=== PATIENT | male | born 1940 | race Caucasian/White ===

== ENCOUNTER 2016-04-17 07:52 | Day surgery (SDC) | payer MEDICARE, BC ==
[~2016-04-17] VITALS: Ht 182.9 cm; Wt 95.8 kg
[2016-04-17] VITALS (10 sets, daily range): BP systolic 103–171; BP diastolic 70–111
[~2016-04-17 07:52] MED LIST: ALLP100T; ALLP100T PO; ASP81CT; ASP81TEC PO; ATOR40TA; ATR20T PO; CALC-697 PO; CALC-80 PO; CEPH500C PO; CYAN10007 PO; DOXA4TAB2; DOXA4TAB2 PO; DXZS4T PO; EZET10TA5; FISH OIL OMEGA1 EACH PO; FLAX340P PO; GREEN COFFEE BEAN PO; HYDR1CAP3; HYDR1TAB66 PO; IBP200T; LISI10TA2 PO; LVT.05T; LVT.05T PO; MELO-195 PO; METO25TA PO; MULT-963 PO; MULT1TAB63; NF-METANX; OMEGA; OMEP20CA12 PO; OMG1KC; POTA99TA7 PO; PRD10T; RASPBERRY KETONES PO; RMP5C; TMSL.4C; TRM50T; VITA1TAB98 PO; [UNRECOGNIZED DRUG - OTHER]
--- OUTSIDE RECORDS SUMMARY | 2016-04-17 07:56 | XMS REPORT | Continuity of Care Document ---
Author Author [facility] Organization [facility] Address Unknown Phone Unavailable Care Team Providers Care Biomedical Equipment Tech Name Role Phone CHASE JOSHI MD PCP Insurance Providers Payer Name Policy Number Subscriber Name Relationship Wps Medicare [id number] Kelvin Escamilla 19 Self / Same As Patient Blue Cross [facility] Supp [id number] Kelvin Escamilla Self / Same As Patient Advance Directives Directive Response Recorded Date/Time Advance Directives No 01/13/14 2:26pm Health Care Power of Medical Research Scientist Yes 11/30/13 10:26am Organ Donor Yes 01/13/14 2:26pm Resuscitation Status Full Code 01/13/14 2:26pm Problems Medical Problems Problem Onset Date Status Acute renal failure Unknown Active Rhabdomyolysis Unknown Active Dehydration Unknown Active Acute renal failure Unknown Active Avulsion of skin of finger Unknown Active Medications Medication Dose Route Sig Days/Qty Instructions Order Date Discontinued Date Status Allopurinol 02/19/08 05/11/12 Discontinued Aspirin 02/19/08 05/11/12 Discontinued Tamsulosin HCl 02/19/08 05/11/12 Discontinued Levothyroxine Sodium 02/19/08 05/11/12 Discontinued Atorvastatin Calcium 02/19/08 12/22/08 Discontinued Ramipril 02/19/08 05/11/12 Discontinued Tramadol HCl 02/19/08 05/11/12 Discontinued Ezetimibe 02/19/08 12/22/08 Discontinued Ibuprofen 02/19/08 12/22/08 Discontinued Vitamin B Complex/Folic Acid 02/19/08 05/11/12 Discontinued Fish Oil 02/19/08 05/11/12 Discontinued Multivitamins 02/19/08 05/11/12 Discontinued Prednisone 02/19/08 12/22/08 Discontinued Acetaminophen/Hydrocodone Bitart 12/22/08 05/11/12 Discontinued Doxazosin Mesylate 12/22/08 05/11/12 Discontinued Meloxicam (Mobic) 15 Mg PO DAILY 05/11/12 Active Atorvastatin Calcium 20 Mg PO BEDTIME 05/11/12 Active Omeprazole 20 Mg PO TWICE A DAY 05/11/12 02/09/13 Discontinued [place]-3/Dha/Epa/Fish Oil 2 Each PO TWICE A DAY 05/11/12 12/22/12 Discontinued Vitamin B Comp W-C 1 Tab PO DAILY 05/11/12 Active Hydrocodone Bit/Acetaminophen 1 Tab PO TWICE A DAY PRN PRN PAIN Active Hydrocodone Bit/Acetaminophen 2 Each PO BEDTIME 05/11/12 12/22/12 Discontinued Aspirin 81 Mg PO BEDTIME 05/11/12 Active Metoprolol Succinate 25 Mg PO DAILY 05/11/12 Active Levothyroxine Sodium (Levothroid) 50 Mcg PO DAILY 05/11/12 Active Doxazosin Mesylate 4 Mg PO BEDTIME 05/11/12 12/22/12 Discontinued Allopurinol 200 Mg PO DAILY 05/11/12 02/09/13 Discontinued Allopurinol 100 Mg PO THREE TIMES A DAY 05/11/12 Active Potassium 99 Mg PO DAILY 05/11/12 Active Calcium Carbonate/Vitamin D3 1 Tab PO DAILY 05/11/12 02/09/13 Discontinued Multivitamin 1 Tab PO DAILY 05/11/12 Active Cyanocobalamin 2,500 Mcg PO BEDTIME 05/11/12 02/09/13 Discontinued [Green Coffee Elias] 400 Mg PO DAILY 05/11/12 12/22/12 Discontinued [Raspberry Ketones] 125 Mg PO BEDTIME 05/11/12 12/22/12 Discontinued Flaxseed 340 Gm PO DAILY 12/22/12 02/09/13 Discontinued Calcium Carbonate/Vitamin D3 1 Each PO DAILY 08/19/14 Active Doxazosin Mesylate 4 Mg PO BEDTIME 11/30/13 Active Lisinopril 10 Mg PO DAILY 11/30/13 Active [Omega3 with FlexOil] 11/30/13 Active Omeprazole 20 Mg PO TWICE A DAY 30 Qty 11/30/13 Active Cephalexin Monohydrate (Keflex) 1 Each PO TWICE A DAY 8 Qty 01/13/14 Active Social History Social History Problem Response Recorded Date/Time Alcohol Use Denies Use 01/13/2014 2:26pm Recreational Drug Use No 01/13/2014 2:26pm Recent Foreign Travel No 01/13/2014 2:26pm Recent Infectious Disease Exposure No 01/13/2014 2:26pm Smoking Status Current Everyday Smoker 01/13/2014 2:26pm Query Response Start Date Stop Date Smoking Status Current Everyday Smoker Hospital Discharge Instructions No hospital discharge instructions. Plan of Care No plan of care. Functional Status No functional status results. Allergies, Adverse Reactions, Alerts Allergen Type Severity Reaction Status Last Updated No Known Drug Allergies Active 02/23/08 Immunizations Name Given Type Date of Pneumonia Vaccine 11/25/11 Historical Date of Influenza Vaccine 11/25/11 Historical Tetanus Booster (TDap) More than 5yrs Historical Tdap 01/13/14 Administered Td (adult), adsorbed 01/13/14 Administered Vital Signs Acute Vital Signs Vital Response Date/Time Temperature (Fahrenheit) 97.5 degrees F (97.6 - 99.5) Temperature (Calculated Celsius) 36.48446 degrees C (36.4 - 37.5) Pulse Rate (adult) 72 bpm (60 - 90) Respiratory Rate 20 bpm (12 - 24) Blood Pressure 177/95 mm Hg Pain Pain Intensity 3 Height (Feet) 5 feet Height (Inches) 10 inches Height (Calculated Centimeters) 177.428690 cm Weight (Pounds) 210 pounds Weight (Calculated Kilograms) 95.909077 kilograms Calculated BMI 30.13 Results Test Source Date Result Interp. Ref. Range Comments Activated Partial Thromboplast Time November 30, 2013 10:39am 24 SEC N 24- 35 Has specimen been collected/obtained? Y Alanine Aminotransferase (ALT/SGPT) January 12, 2014 1:08pm 21 U/L N 0- 55 Albumin January 12, 2014 1:08pm 4.3 G/DL N 3.2-4.5 Alkaline Phosphatase January 12, 2014 1:08pm 114 U/L N 40-136 Aspartate Amino Transf (AST/SGOT) January 12, 2014 1:08pm 24 U/L N 5-34 BUN/Creatinine Ratio January 12, 2014 1:08pm 13 - Basophils # (Auto) January 12, 2014 1:03pm 0.0 10^3/uL N 0.0-0.1 Basophils (%) (Auto) January 12, 2014 1:03pm 0 % N 0-10 Blood Urea Nitrogen January 12, 2014 1:08pm 14 MG/DL N 7-18 Calcium Level January 12, 2014 1:08pm 9.6 MG/DL N 8.5-10.1 Carbon Dioxide Level January 12, 2014 1:08pm 26 MMOL/L N 21-32 Chloride Level January 12, 2014 1:08pm 106 MMOL/L N 98-107 Creatinine January 12, 2014 1:08pm 1.08 MG/DL N 0.60-1.30 Eosinophils # (Auto) January 12, 2014 1:03pm 0.2 10^3/uL N 0.0-0.3 Eosinophils (%) (Auto) January 12, 2014 1:03pm 3 % N 0-10 Glucose Level January 12, 2014 1:08pm 101 MG/DL N 70-105 Hematocrit January 12, 2014 1:03pm 42 % N 40-54 Hemoglobin January 12, 2014 1:03pm 14.8 G/DL N 13.3-17.7 Lactate Dehydrogenase January 12, 2014 1:08pm 188 U/L N 125-220 Lymphocytes # (Auto) January 12, 2014 1:03pm 2.0 X 10^3 N 1.0-4.0 Lymphocytes (%) (Auto) January 12, 2014 1:03pm 30 % N 12-44 Magnesium Level November 30, 2013 10:39am 2.3 MG/DL N 1.8-2.4 Has specimen been collected/obtained? Y Mean Corpuscular Hemoglobin January 12, 2014 1:03pm 35 PG H 25-34 Mean Corpuscular Hemoglobin Concent January 12, 2014 1:03pm 35 G/DL N 32 -36 Mean Corpuscular Volume January 12, 2014 1:03pm 99 FL N 80-99 Mean Platelet Volume January 12, 2014 1:03pm 9.0 FL N 7.4-10.4 Monocytes # (Auto) January 12, 2014 1:03pm 0.7 X 10^3 N 0.0-1.0 Monocytes (%) (Auto) January 12, 2014 1:03pm 10 % N 0-12 Myoglobin November 30, 2013 10:39am 1952.1 NG/ML H 10.0-92.0 Has specimen been collected/obtained? Y Neutrophils # (Auto) January 12, 2014 1:03pm 4.0 X 10^3 N 1.8-7.8 Neutrophils (%) (Auto) January 12, 2014 1:03pm 58 % N 42-75 Platelet Count January 12, 2014 1:03pm 207 10^3/uL N 130-400 Potassium Level January 12, 2014 1:08pm 4.5 MMOL/L N 3.6-5.0 Prothrombin Time November 30, 2013 10:39am 13.3 SEC N 12.2-14.7 Has specimen been collected/obtained? Y Red Blood Count January 12, 2014 1:03pm 4.26 10^6/uL L 4.35-5.85 Red Cell Distribution Width January 12, 2014 1:03pm 13.6 % N 10.0-14.5 Sodium Level January 12, 2014 1:08pm 138 MMOL/L N 135-145 Total Bilirubin January 12, 2014 1:08pm 0.6 MG/DL N 0.1-1.0 Total Creatine Kinase November 30, 2013 10:39am 2111 U/L H 30-200 Total Protein January 12, 2014 1:08pm 7.1 G/DL N 6.4-8.2 Troponin I November 30, 2013 10:39am < 0.30 NG/ML - Has specimen been collected/obtained? Y Urine Bacteria November 30, 2013 12:50pm NEGATIVE /HPF - Has specimen been collected/obtained? YSpecimen Description CLEAN CATCH Urine Bilirubin November 30, 2013 12:50pm NEGATIVE - Has specimen been collected/obtained? YSpecimen Description CLEAN CATCH Urine Casts November 30, 2013 12:50pm PRESENT /LPF H - Has specimen been collected/obtained? YSpecimen Description CLEAN CATCH Urine Clarity November 30, 2013 12:50pm CLEAR - Has specimen been collected/obtained? YSpecimen Description CLEAN CATCH Urine Color November 30, 2013 12:50pm YELLOW - Has specimen been collected/obtained? YSpecimen Description CLEAN CATCH Urine Crystals November 30, 2013 12:50pm NONE /LPF - Has specimen been collected/obtained? YSpecimen Description CLEAN CATCH Urine Culture Indicated November 30, 2013 12:50pm NO - Has specimen been collected/obtained? YSpecimen Description CLEAN CATCH Urine Glucose (UA) November 30, 2013 12:50pm NEGATIVE - Has specimen been collected/obtained? YSpecimen Description CLEAN CATCH Urine Hyaline Casts November 30, 2013 12:50pm 10-25 /LPF H - Has specimen been collected/obtained? YSpecimen Description CLEAN CATCH Urine Ketones November 30, 2013 12:50pm NEGATIVE - Has specimen been collected/obtained? YSpecimen Description CLEAN CATCH Urine Leukocyte Esterase November 30, 2013 12:50pm 1+ H - Has specimen been collected/obtained? YSpecimen Description CLEAN CATCH Urine Mucus November 30, 2013 12:50pm SMALL /LPF H - Has specimen been collected/obtained? YSpecimen Description CLEAN CATCH Urine Nitrite November 30, 2013 12:50pm NEGATIVE - Has specimen been collected/obtained? YSpecimen Description CLEAN CATCH Urine Protein November 30, 2013 12:50pm 1+ H - Has specimen been collected/obtained? YSpecimen Description CLEAN CATCH Urine RBC November 30, 2013 12:50pm NONE /HPF - Has specimen been collected/obtained? YSpecimen Description CLEAN CATCH Urine Specific [place] November 30, 2013 12:50pm 1.015 L - Has specimen been collected/obtained? YSpecimen Description CLEAN CATCH Urine Squamous Epithelial Cells November 30, 2013 12:50pm NONE /HPF - Has specimen been collected/obtained? YSpecimen Description CLEAN CATCH Urine Urobilinogen November 30, 2013 12:50pm NORMAL MG/DL - Has specimen been collected/obtained? YSpecimen Description CLEAN CATCH Urine WBC November 30, 2013 12:50pm 2-5 /HPF - Has specimen been collected/obtained? YSpecimen Description CLEAN CATCH Urine pH November 30, 2013 12:50pm 5 - Has specimen been collected/ obtained? YSpecimen Description CLEAN CATCH White Blood Count January 12, 2014 1:03pm 6.9 10^3/uL N 4.3-11.0 Estimat Glomerular Filtration Rate January 12, 2014 1:08pm > 60 - GFR INTERPRETIVE DATA UNITS FOR ESTIMATED GFR (eGFR): mL/min/1.73 M2 REFERENCE RANGE FOR ESTIMATED GFR (eGFR) eGFR NORMAL eGFR >60 MODERATELY DECREASED eGFR 30-59 SEVERLY DECREASED eGFR 15-29 KIDNEY FAILURE <15 (OR DIALYSIS) Urine RBC (Auto) November 30, 2013 12:50pm 1+ H - Has specimen been collected/obtained? YSpecimen Description CLEAN CATCH INR Comment November 30, 2013 10:39am 1.0 N 0.8-1.4 INTERPRETIVE DATASUGGESTED THERAPEUTIC RANGE FOR INR'S: VENOUS THROMBOSIS, PULMONARY EMBOLISM, OR PREVENTION OF SYSTEMIC EMBOLISM (EG. IN ATRIAL FIBRILLATION): 2.0 - 3.0 MECHANICAL PROSTHETIC HEART VALVES: 2.5 - 3.5* *NOTE: INR'S UP TO 4.5 MAY BE NECESSARY IN SELECTED GROUPS OF HIGH RISK PATIENTS. [employer] CONSENSUS CONFERENCE ON ANTITHROMBOTIC THERAPY (2000). MRSA Screen Nasal December 22, 2012 10:20am MRSA not isolated Procedures No known history of procedures. Encounters Encounter Location Date/Time Departed Emergency Room Via [facility] 01/13/14 2:18pm Registered Clinic Via [facility] 01/12/14 12:46pm Recent Diagnosis
--- OUTSIDE RECORDS SUMMARY | 2016-04-17 07:57 | XMS REPORT | Continuity of Care Document ---
Author Author [facility] Organization [facility] Address Unknown Phone Unavailable Care Team Providers Care Paper Bag Press Operator Name Role Phone CHASE OJSHI MD PCP Insurance Providers Payer Name Policy Number Subscriber Name Relationship Wps Medicare [id number] Kelvin Escamilla 18 Self / Same As Patient Blue Cross [facility] Supp [id number] Kelvin Escamilla Self / Same As Patient Advance Directives Directive Response Recorded Date/Time Advance Directives No 01/13/14 2:26pm Health Care Power of Engineering Associate Yes 11/30/13 10:26am Organ Donor Yes 01/13/14 [...] PO TWICE A DAY 05/11/12 02/09/13 Discontinued [place]-3/Dha/Epa/Fish Oil 2 Each PO TWICE A DAY [...] F (97.6 - 99.5) Temperature (Calculated Celsius) 36.07705 degrees C (36.4 - 37.5) Pulse Rate (adult) 72 bpm (60 - 90) Respiratory Rate 20 bpm (12 - 24) Blood Pressure 177/95 mm Hg Pain Pain Intensity 3 Height (Feet) 5 feet Height (Inches) 10 inches Height (Calculated Centimeters) 177.359924 cm Weight (Pounds) 210 pounds Weight (Calculated Kilograms) 95.774910 kilograms Calculated BMI 30.13 Results Test Source [...] collected/obtained? YSpecimen Description CLEAN CATCH Urine Specific [place] November 30, 2013 12:50pm 1.015 L - [...] SELECTED GROUPS OF HIGH RISK PATIENTS. [employer] CONSENSUS CONFERENCE ON ANTITHROMBOTIC THERAPY (2000). MRSA Screen Nasal December 22, 2012 10:20am MRSA not isolated Procedures No known history of procedures. Encounters Encounter Location Date/Time Departed Emergency Room Via [facility] 01/13/14 2:18pm Registered Clinic [facility] 01/12/14 12:46pm Recent Diagnosis
[2016-04-17 08:38] LABS: MEAN PLATELET VOLUME 9.4 FL (7.4-10.4); RED BLOOD COUNT 4.5 10^6/uL (4.35-5.85); RED CELL DISTRIBUTION WIDTH 14.1 % (10.0-14.5)
[2016-04-17] MEDS ORDERED: NS IV 1000 ML 1,000 ML IV SCH (08:45)
[2016-04-17 08:47] LABS: PROTHROMBIN TIME PATIENT 12.8 SEC (12.2-14.7)
[2016-04-17 08:49] LABS: BILIRUBIN,URINE NEGATIVE (NEGATIVE); KETONES,URINE NEGATIVE (NEGATIVE); LEUKOCYTE ESTERASE ,URINE NEGATIVE (NEGATIVE); NITRITE,URINE NEGATIVE (NEGATIVE); PH,URINE 5 (5-9); PROTEIN,URINE NEGATIVE (NEGATIVE); SQUAMOUS EPITHELIAL CELL,UR RARE /HPF; UROBILINOGEN,URINE NORMAL (NORMAL)
[2016-04-17 08:56] LABS: ALANINE AMINOTRANSFERASE 23 U/L (0-55); ALBUMIN 4.5 G/DL (3.2-4.5); ANION GAP 9 MMOL/L (5-14); ASPARTATE AMINO TRANSFERASE 26 U/L (5-34); BILIRUBIN,TOTAL 0.7 MG/DL (0.1-1.0); BLOOD UREA NITROGEN 13 MG/DL (7-18); BUN/CREATININE RATIO 12; CALCIUM 9.6 MG/DL (8.5-10.1); CARBON DIOXIDE 23 MMOL/L (21-32); CHLORIDE 108 MMOL/L (98-107); CHOLESTEROL 148 MG/DL (< 200); DIRECT LDL 85 MG/DL (1-129); GFR ESTIMATED > 60; GLUCOSE 97 MG/DL (70-105); POTASSIUM 4.2 MMOL/L (3.6-5.0); SODIUM 140 MMOL/L (135-145); TOTAL PROTEIN 7.1 G/DL (6.4-8.2); TRIGLYCERIDES 144 MG/DL (<150); VLDL CHOLESTEROL 29 MG/DL (5-40)
--- NOTE | 2016-04-17 08:56 | Diagnostic Imaging Report ---
EXAMINATION: Portable upright radiograph of the chest. INDICATION: Chest pain and shortness of breath. FINDINGS: The lungs are clear. The heart size is mildly enlarged. No effusion or pneumothorax. The mediastinum and crispin appear unremarkable. Sternotomy wires are seen with fractures noted in most of them. There is mild diastases of the fractured wire fragments in the upper sternum. IMPRESSION: Cardiomegaly. Fractured sternotomy wire similar to 06/06/14. Dictated by: Dictated on workstation # [id number]
[2016-04-17] MEDS ORDERED: MAGN400T39 PO (09:11)
[2016-04-17] MEDS ORDERED: VITA150T PO (09:11)
[2016-04-17] MEDS ORDERED: OMEG10005 PO (09:11)
[2016-04-17] MEDS ORDERED: HYDR-3820 PO (09:13)
[2016-04-17] MEDS ORDERED: SILD100T PO (09:13)
[2016-04-17] MEDS ORDERED: FLAX SEED OIL PO (09:16)
[2016-04-17] MEDS ORDERED: ATOR40TA70 PO (09:20)
--- NOTE | 2016-04-17 11:56 | Cardiac Procedure Note-CS/ASA ---
Pre-Procedure Note Pre-Op Procedure Note H&P Reviewed The H&P was reviewed, patient examined and no changes noted. Date H&P Reviewed: Apr 17, 2016 Time H&P Reviewed: 11:56 Conscious Sedation Pre-Proced Time Reviewed: 11:56 ASA Class: 3 Airway Mallampati Classification: ([place] appropriate class) I. II. III, IV Lungs Heart ASA score ASA 1: a normal healthy patient ASA 2: a patient with a mild systemic disease (mid diabetes, controlled hypertension, obesity x ASA 3: a patient with a severe systemic disease that limits activity (angina , COPD, prior Myocardial infarction) ASA 4: a patient with an incapacitating disease that is a constant threat to life (CHF, renal failure) ASA 5: a moribund patient not expected to survive 24 hrs. (ruptured aneurysm) ASA 6: a declared brain patient whose organs are being harvested. For emergent operations, add the letter E after the classification Grade 3 Sedation Plan: Analgesia, Amnesia, Plan communicated to team members, Discussed options with patient/fam, Discussed risks with patient/fam Note The patient is an appropriate candidate to undergo the planned procedure, sedation, and anesthesia. The patient immediately re-assessed prior to indication. KAYLEY LAMBERT MD Apr 17, 2016 11:56
[2016-04-17] MEDS ORDERED: HYDROcodone/APAP 10 MG/325 MG (LORTAB) TAB PO PRN (13:15)
[2016-04-17] MEDS ORDERED: PATIENT MAY USE OWN MEDS, ALL PO SCH (13:15)
[2016-04-17] MEDS: MELOXICAM 15 MG TAB PO SCH (15:00)
[2016-04-17] MEDS: MULTIVIT W/MINERALS TAB (THERAGRAN M) PO SCH (17:00)
[2016-04-17] MEDS: CALCIUM CARB + VIT D 600 MG (CALCARB + D) TAB PO SCH (17:00)
[2016-04-17] MEDS: NS IV 1000 ML 1,000 ML IV SCH (19:29)
[2016-04-17] MEDS ORDERED: MULTIVITAMIN PO SCH (21:00)
[2016-04-17] MEDS ORDERED: ATORVASTATIN 20 MG (LIPITOR) TABLET PO SCH (21:00)
[2016-04-17] MEDS: OMEPRAZOLE 20 MG (PriLOSEC) CAP NON-FORMULARY PO SCH (22:29)
[2016-04-17] MEDS: ALLOPURINOL 100 MG (ZYLOPRIM) TAB PO SCH (22:29)
[2016-04-17] MEDS: HYDROcodone/APAP 10 MG/325 MG (LORTAB) TAB PO PRN (22:29)
[2016-04-17] MEDS: ASPIRIN E.C. 81 MG (ECOTRIN) TAB PO SCH (22:30)
[2016-04-17] MEDS: ATORVASTATIN 40 MG (LIPITOR) TABLET PO SCH (22:31)
[2016-04-17] MEDS: MAGNESIUM OXIDE (MAG-OX)400 MG TAB PO SCH (22:32)
[2016-04-17] MEDS: POTASSIUM GLUCONATE 99 MG TAB PO SCH (22:32)
[2016-04-18] VITALS (21 sets, daily range): BP systolic 118–171; BP diastolic 66–109
[2016-04-18] MEDS: NS IV 1000 ML 1,000 ML IV SCH ×3 (06:13→18:45)
[2016-04-18] MEDS: MULTIVIT W/MINERALS TAB (THERAGRAN M) PO SCH ×2 (06:14→18:10)
[2016-04-18] MEDS: LEVOTHYROXINE 50 MCG (LEVOTHROID) TAB PO SCH (06:14)
[2016-04-18] MEDS: OMEPRAZOLE 20 MG (PriLOSEC) CAP NON-FORMULARY PO SCH ×2 (07:00→22:43)
[2016-04-18] MEDS: HYDROcodone/APAP 10 MG/325 MG (LORTAB) TAB PO PRN ×2 (07:59→22:55)
[2016-04-18] MEDS: ALLOPURINOL 100 MG (ZYLOPRIM) TAB PO SCH ×2 (08:00→22:56)
[2016-04-18] MEDS ORDERED: HEParin (CATH LAB) 2,000 ML IV ONE (08:04)
[2016-04-18] MEDS ORDERED: LIDOCAINE 1% INJ 20 ML (XYLOCAINE) VIAL ONE (08:04)
[2016-04-18] MEDS: MELOXICAM 15 MG TAB PO SCH (08:32)
[2016-04-18] MEDS ORDERED: lisINopril 10 MG (PRINIVIL) TAB PO SCH (09:00)
[2016-04-18] MEDS ORDERED: doxAzosin 4 MG (CARDURA) TAB PO SCH (09:00)
--- NOTE | 2016-04-18 12:38 | CARDIAC CATHETERIZATION ---
PROCEDURE PHYSICIAN: KAYLEY LAMBERT DATE OF PROCEDURE: 04/17/2016 REFERRING PHYSICIAN: Dr. Pepper Baeza BRIEF HISTORY: Mr. Vargas is a 75-year-old gentleman with history of coronary artery disease, history of CABG, has been having increasing chest pain. He was scheduled for left heart catheterization, possible PTCA. PROCEDURE NOTE: After explaining the procedure to the patient, all pros and cons were explained. All questions were answered. The patient signed a consent, then he was placed on the cardiac catheterization laboratory. Irwin right was used to access the right coronary artery and the vein graft. Multiple attempts to access the subclavian artery has failed using a [place] right catheter IM catheter and multipurpose catheter. The left coronary was evaluated with nonselective angiogram. I used multiple catheters in an attempt to intubate the left coronary system, without success. Pigtail catheter was advanced to the left ventricular cavity. Left ventriculogram was done. Pullback LV to aorta was done. Multiple different angle injection to the thoracic aorta and aortic root was done. Then the pigtail catheter was placed in the aortic arch and aortic arch angiogram was done. At the end of the procedure, sheath was removed. Mynx failed to deploy and manual pressure applied. FINDINGS: HEMODYNAMICS: LV pressure 152/11, end-diastolic pressure of 11, aortic pressure 149/83, mean of 110. ANATOMY: 1. The main coronary artery appeared to be patent. 2. Left anterior descending artery appeared to be occluded. I was unable to evaluate the RODRIGUEZ. The patient will be scheduled for RODRIGUEZ angiogram evaluation through radial access. 3. Left circumflex artery was not well visualized. There is a vein graft, jump graft to the diagonal and obtuse marginal branch that is patent and giving collateral to the right coronary artery. 4. Right coronary artery is a small artery, occluded artery with receiving collaterals from the vein graft and the left system. 5. No RODRIGUEZ angiogram. 6. Left ventriculogram was done in the right anterior oblique position. Left ventricle is justin normally. 7. Thoracic aortogram was evaluated in 3 different angles and appeared to be slightly prominent. The origin of the left main appeared to be posterior. 8. Aortic arch angiogram appears to be normal in size. No dissection or aneurysm. Right subclavian artery has mild atherosclerotic disease. The left carotid artery left subclavian artery appeared to have atherosclerotic disease with shared origin. CONCLUSION: 1. Very difficult anatomy, I was unable to intubate the left coronary system. Non-selective angiogram was done. The LAD appeared to be occluded, the RODRIGUEZ was not visualized due to difficult anatomy. The patient will need to be rescheduled for angiogram through the radial artery. 2. Patent vein graft to the diagonal artery and obtuse marginal branch artery. 3. Occluded small right coronary artery with collateral filling the distal right from the left system. 4. Prominent aortic arch and aortic root. 5. Normal left ventricular size and function. DISCUSSION AND RECOMMENDATION: I will continue medical therapy. Planning to evaluate the RODRIGUEZ through left radial access. Job ID: [id number] Dictated Date: 04/17/2016 13:26:33 Dish Stacker Date: 04/18/2016 12:29:18 / marnie
[2016-04-18] MEDS ORDERED: NITROGLYCERIN DRIP 25 MG/D5W 250 ML IV ONE (13:42)
[2016-04-18] MEDS ORDERED: HEParin 1000 UNIT/ML (10ML VIAL) FOR BOLUS ONE (13:42)
[2016-04-18] MEDS ORDERED: VERAPAMIL 5 MG/2 ML (CALAN) VIAL IV ONE (13:42)
--- NOTE | 2016-04-18 14:16 | Cardiac Procedure Note-CS/ASA ---
Pre-Procedure Note Pre-Op Procedure Note H&P Reviewed The H&P was reviewed, patient examined and no changes noted. Date H&P Reviewed: Apr 18, 2016 Time H&P Reviewed: 14:15 Conscious Sedation Pre-Proced Time Reviewed: 14:15 ASA Class: 3 Airway Mallampati Classification: ([place] appropriate class) I. II. III, IV Lungs Heart ASA score ASA 1: a normal healthy patient ASA 2: a patient with a mild systemic disease (mid diabetes, controlled hypertension, obesity x ASA 3: a patient with a severe systemic disease that limits activity (angina , COPD, prior Myocardial infarction) ASA 4: a patient with an incapacitating disease that is a constant threat to life (CHF, renal failure) ASA 5: a moribund patient not expected to survive 24 hrs. (ruptured aneurysm) ASA 6: a declared brain patient whose organs are being harvested. For emergent operations, add the letter E after the classification Grade 3 Sedation Plan: Analgesia, Amnesia, Plan communicated to team members, Discussed options with patient/fam, Discussed risks with patient/fam Note The patient is an appropriate candidate to undergo the planned procedure, sedation, and anesthesia. The patient immediately re-assessed prior to indication. KAYLEY LAMBERT MD Apr 18, 2016 14:16
--- NOTE | 2016-04-18 14:18 | Cardiology Progress Note ---
Subjective Subjective/Events-last exam Patient is laying down in bed, feeling well, groin is healing well, denied any chest pain or shortness of breath. Denied any palpitation. Review of Systems General: No Chills, No Night Sweats, No Fatigue, No Malaise, No Appetite, No Other HEENT: No Head Aches, No Visual Changes, No Eye Pain, No Ear Pain, No Dysphasia , No Sinus Congestion, No Post Nasal Drip, No Sore Throat, No Other Pulmonary: No Dyspnea, No Cough, No Pleuritic Chest Pain, No Other Cardiovascular: No: Chest Pain, Edema, Lt Headedness, Orthopnea, Other, Palpitations, Paroxysmal Noc. Dyspnea Objective-Cardiology Exam Last Set of Vital Signs Vital Signs 04/18/16 04/18/16 08:45 11:56 Temp 96.3 Pulse 55 Resp 18 B/P 140/75 Pulse Ox 98 O2 Delivery Room Air Capillary Refill : Less Than 3 Seconds I&O Intake and Output 04/18/16 00:00 Intake Total 1300 ml Output Total 950 ml Balance 350 ml Intake Oral 300 ml IV Total 1000 ml Output Urine Total 950 ml General: Alert, Oriented X3, Cooperative HEENT: Atraumatic, PERRLA Neck: Supple, No JVD, No Thyromegaly Lungs: Clear to Auscultation, Normal Air Movement Heart: Regular Rate, Normal S1, Normal S2, No Murmurs Abdomen: Normal Bowel Sounds, Soft, No Tenderness, No Hepatosplenomegaly, No Masses Extremities: No Clubbing, No Cyanosis, No Edema, Normal Pulses, No Tenderness/ Swelling Skin: No Rashes, No Breakdown, No Significant Lesion Neuro: Normal Gait, Normal Speech, Strength at 5/5 X4 Ext, Normal Tone, Sensation Intact Psych/Mental Status: Mental Status NL, Mood NL A/P-Cardiology Admission Diagnosis Coronary artery disease Chest pain nonspecific etiology Hypertension Hyperlipidemia Assessment/Plan Coronary artery disease, history of CABG, cardiac catheterization showed extensive disease, unable to access the RODRIGUEZ, planning for angiogram using the left radial access. Hypertension, continue current medication monitor blood pressure Hyperlipidemia, continue current medication monitor lipids Recurrent chest pain. Secondary to coronary artery disease. Continue to maximize medical therapy. KAYLEY LAMBERT MD Apr 18, 2016 14:18
[2016-04-18] MEDS ORDERED: CLOPIDOGREL 300 MG (PLAVIX) TABLET PO ONE (16:20)
[2016-04-18] MEDS ORDERED: HEParin (CATH LAB) 1,000 ML IV ONE (16:25)
--- NOTE | 2016-04-18 16:36 | Cardiac Procedure Note-CS/ASA ---
Pre-Procedure Note Pre-Op Procedure Note H&P Reviewed The H&P was reviewed, patient examined and no changes noted. Date H&P Reviewed: Apr 18, 2016 Time H&P Reviewed: 14:15 Conscious Sedation Pre-Proced Time Reviewed: 14:15 ASA Class: 2 Airway Mallampati Classification: ([place] appropriate class) I. II. III, IV Lungs Heart ASA score ASA 1: a normal healthy patient ASA 2: a patient with a mild systemic disease (mid diabetes, controlled hypertension, obesity ASA 3: a patient with a severe systemic disease that limits activity (angina , COPD, prior Myocardial infarction) ASA 4: a patient with an incapacitating disease that is a constant threat to life (CHF, renal failure) ASA 5: a moribund patient not expected to survive 24 hrs. (ruptured aneurysm) ASA 6: a declared brain patient whose organs are being harvested. For emergent operations, add the letter E after the classification Grade 1 Sedation Plan: Analgesia, Amnesia, Plan communicated to team members, Discussed options with patient/fam, Discussed risks with patient/fam Note The patient is an appropriate candidate to undergo the planned procedure, sedation, and anesthesia. The patient immediately re-assessed prior to indication. Ulices LYONS MD Apr 18, 2016 4:36 pm
--- NOTE | 2016-04-18 16:38 | Progress Note-Post Operative ---
Post-Operative Progess Note Pre-Operative Diagnosis Unstable Angina Post-Operative Diagnosis Severe left subclavian stenosis,s/p stent Post-Op Procedure Note Date of Procedure: Apr 18, 2016 Name of Procedure: Graft angiography, left subclavian angiography, left subclavian balloon angioplasty/stent Procedure Note/Findings 1. patent RODRIGUEZ to the LAD. 2. Severe ostial left subclavian artery stenosis - successful HOSPICE OFFICE COORDINATOR/Stent Anesthesia Type local anesthesia Estimated blood loss (mL): 40 ml Packing: none Specimen(s) collected none Ulices LYONS MD Apr 18, 2016 4:38 pm
[2016-04-18] MEDS ORDERED: PATIENT MAY USE OWN MEDS, ALL PO SCH (16:45)
[2016-04-18] MEDS: CALCIUM CARB + VIT D 600 MG (CALCARB + D) TAB PO SCH (18:10)
[2016-04-18] MEDS: POTASSIUM GLUCONATE 99 MG TAB PO SCH (22:43)
[2016-04-18] MEDS: MAGNESIUM OXIDE (MAG-OX)400 MG TAB PO SCH (22:44)
[2016-04-18] MEDS: ASPIRIN E.C. 81 MG (ECOTRIN) TAB PO SCH (22:45)
[2016-04-18] MEDS: ATORVASTATIN 40 MG (LIPITOR) TABLET PO SCH (22:46)
[2016-04-19] VITALS (10 sets, daily range): BP systolic 99–123; BP diastolic 59–84
[2016-04-19] MEDS: NS IV 1000 ML 1,000 ML IV SCH (02:54)
[2016-04-19 04:24] LABS: MEAN PLATELET VOLUME 9.6 FL (7.4-10.4); RED BLOOD COUNT 3.67 10^6/uL (4.35-5.85); RED CELL DISTRIBUTION WIDTH 13.7 % (10.0-14.5); WHITE BLOOD COUNT 7.2 10^3/uL (4.3-11.0)
[2016-04-19 05:07] LABS: ANION GAP 7 MMOL/L (5-14); BLOOD UREA NITROGEN 13 MG/DL (7-18); BUN/CREATININE RATIO 12; CARBON DIOXIDE 23 MMOL/L (21-32); CHLORIDE 108 MMOL/L (98-107); CREATININE SERUM 1.05 MG/DL (0.60-1.30); POTASSIUM 3.9 MMOL/L (3.6-5.0); SODIUM 138 MMOL/L (135-145)
[2016-04-19 05:08] LABS: CALCIUM 8.3 MG/DL (8.5-10.1); GFR ESTIMATED > 60; GLUCOSE 121 MG/DL (70-105)
[2016-04-19] MEDS: OMEPRAZOLE 20 MG (PriLOSEC) CAP NON-FORMULARY PO SCH (06:23)
[2016-04-19] MEDS: LEVOTHYROXINE 50 MCG (LEVOTHROID) TAB PO SCH (06:23)
[2016-04-19] MEDS: MULTIVIT W/MINERALS TAB (THERAGRAN M) PO SCH (06:28)
[2016-04-19] MEDS ORDERED: CLOP75TA28 PO (08:29)
--- NOTE | 2016-04-19 08:29 | Discharge Inst-Post CATH ---
Discharge Inst-CATH Post Cardiac Cath D/C Inst Follow Up/Plan appointment with Dr. Subramanian's office in 2 weeks CARDIAC CATH DISCHARGE INSTRUCTIONS *Hold Metformin for 48 hours post heart cath. ACTIVITY * Go Home directly and rest. * Limit activity of the leg (or wrist if it was used) for 7 days including aerobics, swimming, jogging, bicycling, etc. * Restrict stair-climbing for 7 days if possible, if not, climb up with your non -cath leg, then bring together on the same step. * Avoid lifting, pushing, pulling or excessive movement of the affected extremity for 7 days. * Customary sexual activity may be resumed after 2 days-use caution not to use a position that strains or causes pain to the affected extremity. * No driving for 24 hours. * NO SMOKING. * Avoid straining for bowel movements for 7 days. * Gentle walking on level ground is allowed. * Returning to work will depend on the type of procedure and the results. Your doctor will discuss this with you. CALL YOUR DOCTOR FOR ANY OF THE FOLLOWING: *If bleeding from the puncture site occurs- Apply gentle pressure to site with clean cloth and call your doctor or EMS. * If a knot or lump forms under the skin, increases in size, or causes pain. * If bruising appears to be worsening or moving further down your leg instead of disappearing. * Temperature above 101 F. CARE OF YOUR GROIN INCISION; * Bruising or purple discoloration of the skin near the puncture site is common. * You may shower only, no bathtub bathing for 5 days. Be careful to avoid slipping as your leg may feel stiff. * If a closure device was used on your femoral artery, please see the attached guide regarding care of the device and your leg. * REMOVE the dressing from your groin the next day after your procedure in the shower. CARE OF YOUR WRIST INCISION; * Bruising or purple discoloration of the skin near the puncture site is common. * You may shower. * DO NOT submerge wrist. * Remove dressing in 24 hours. KAYLEY SUBRAMANIAN MD Apr 19, 2016 08:29
--- NOTE | 2016-04-19 08:33 | Cardiology Discharge Summary ---
Diagnosis/Chief Complaint Date of Admission Date of Discharge Admission Diagnosis Coronary artery disease Chest pain nonspecific etiology Hypertension Hyperlipidemia Discharge Diagnosis coronary artery disease Left subclavian stenosis Hypertension Hyperlipidemia Chest pain nonspecific etiology Chief Complaint/HPI Chief Complaint/HPI 75-year-old man with history of coronary artery disease, CABG, seen for recurrent chest pain, patient was scheduled for cardiac catheterization possible PTCA, procedure carried out showing patent vein graft, I was unable to intubate the internal mammary artery, used large amount of contrast, patient was monitored overnight and brought the next day for cardiac catheterization using the left radial artery to axis internal mammary artery, it was patent mammary artery with good flow in the LAD territory, patient has severe left subclavian stenosis, underwent pertains intervention and stent deployment to the subclavian artery by Dr. Martines, this morning patient appeared to be doing well. No complication. He will be discharged home Discharge Summary Hospital Course Hospital Course Coronary artery disease, history of CABG, cardiac catheterization was done on April 17, 2016 showing patent vein graft, jump graft to the diagonal and marginal branch. Unable to intubate the RODRIGUEZ. Scheduled for repeat angiogram through the left radial artery by Dr. Martines, procedure showed patent RODRIGUEZ, severe left AV stenosis. Underwent intervention with stent deployment with good results. Chest pain nonspecific etiology reporting improvement. Continue to monitor Hypertension, blood pressure under good control, continue current medication monitor Hyperlipidemia, continue on Lipitor Tobaccoism, educated on smoking cessation. Labs Laboratory Tests 04/17/16 08:15: 04/17/16 08:30: Chloride Level 108H, HDL Cholesterol 33L 04/19/16 04:06: Chloride Level 108H, Calcium Level 8.3L, Glucose Level 121H, Hematocrit 37L, Hemoglobin 12.3L, Mean Corpuscular Volume 100H, Red Blood Count 3.67L Procedures None. Discharge Physical Examination Allergies: Coded Allergies: No Known Drug Allergies (Verified , 02/23/08) Vitals & I&Os Vital Signs Date Time Temp Pulse Resp B/P Pulse Ox O2 Delivery O2 Flow Rate FiO2 04/19/16 06:00 71 14 123/84 95 Room Air 04/19/16 04:00 98.2 General Appearance: Alert, Oriented X3, Cooperative, No Acute Distress HEENT: Atraumatic, PERRLA Respiratory: Clear to Auscultation, Normal Air Movement Cardiovascular: Regular Rate, Normal S1, Normal S2, No Murmurs Abdominal: Normal Bowel Sounds, Soft, No Tenderness, No Hepatosplenomegaly, No Masses Extremities: No Clubbing, No Cyanosis, No Edema, Normal Pulses, No Tenderness/ Swelling Skin: No Rashes, No Breakdown, No Significant Lesion Neuro: Normal Gait, Normal Speech, Strength at 5/5 X4 Ext, Normal Tone, Sensation Intact, Cranial Nerves 3-12 NL, Reflexes 2+ Psych/Mental Status: Mental Status NL, Mood NL Discharge Home Medications Reviewed and agree with Discharge Medication list on patient's Discharge Instruction sheet Instructions to Patient/Family Please see electonic discharge instructions given to patient. KAYLEY LAMBERT MD Apr 19, 2016 08:33
[2016-04-19] MEDS ORDERED: ASPIRIN E.C. 81 MG (ECOTRIN) TAB PO SCH (09:00)
[2016-04-19] MEDS ORDERED: CLOPIDOGREL 75 MG (PLAVIX) TABLET PO SCH (09:00)
--- NOTE | 2016-04-22 06:14 | CARDIAC CATHETERIZATION ---
PROCEDURE PHYSICIAN: NORI MARTINES DATE OF PROCEDURE: 04/18/2016 GRAFT ANGIOGRAPHY, SUBCLAVIAN ANGIOGRAPHY, SUBCLAVIAN STENTING: REFERRING BRICK WASHER: Dr. Subramanian PERFORMING PHYSICIAN: Dr. Chad Martines. INDICATION: 1. Cardiac coronary angiography, inability to engage RODRIGUEZ. 2. Unstable angina. PREOPERATIVE DIAGNOSES: 1. Unstable angina. 2. Inability to engage the left subclavian artery and the RODRIGUEZ and RODRIGUEZ graft. POSTOPERATIVE DIAGNOSES: 1. Unstable angina. 2. Patent RODRIGUEZ to the LAD. 3. Severe ostial left subclavian artery stenosis. 4. Left subclavian artery SUIT ATTENDANT/stent. HISTORY: Mr. Vargas is a 75-year-old gentleman who has history of CAD and CABG. He is a patient of Dr. Subramanian. He presents with unstable angina. Coronary angiography was performed on 04/17/[address] Subramanian. Coronary angiography showed the right coronary artery is occluded receiving left to right collaterals. Nonselective shots of the left coronary system was taken. Left main is patent. LAD is occluded. Left circumflex artery was not well visualized. There is a patent vein jump graft from the diagonal and obtuse marginal artery. This is also giving collateral to the RCA. However, due to the significant tortuosity and technically difficulty, the RODRIGUEZ could not be engaged. Therefore RODRIGUEZ angiography through left radial access was recommended and planned for today. PROCEDURE PERFORMED: 1. RODRIGUEZ angiography. 2. Left subclavian angiography. 3. Left subclavian balloon angioplasty. 4. Left subclavian stenting. COMPLICATIONS: None. SPECIMENS REMOVED: None. ESTIMATED BLOOD LOSS: 40 mL. EQUIPMENT: 1. 6-Malagasy Terumo glide sheath. 2. FR4 catheter. 3. 0.035 exchange wire. 4. 8-Malagasy FR4 guide. 5. 0.035 standard angle glide wire to 60 cm. 6. 8-Malagasy x 11 cm sheath. 7. Integration Engineer 6 x 20 x 135 balloon. 8. 0.035 Storq 300 cm. 9. Omnilink Elite stent 9 x 29 x 80 mm. FINAL RESULTS: Satisfactory. ANTICOAGULATION: IV heparin PROCEDURE DETAILS: The patient was brought to the [facility] after informed consent was taken. All the risks and complications were explained in detail. The patient was draped and prepped in the usual sterile fashion. We gained access in the left radial artery with a 6-Malagasy sheath. RODRIGUEZ angiography was performed with FR4 catheter. FINDINGS: 1. Patent RODRIGUEZ to the mid LAD. The anastomotic site is not significantly diseased. The LAD distal to the anastomotic site is patent with AJIT 3 flow. 2. Left subclavian angiography shows significant stenosis of the left subclavian artery stenosis, severity is 80%. RECOMMENDATION: Left subclavian artery SUIT ATTENDANT/stenting is recommended. PERIPHERAL INTERVENTION REPORT: IV heparin was used for anticoagulation. We first crossed the lesion via the left radial approach with a regular J-wire. We then gained access in the left femoral artery with an 8-Malagasy sheath. We took an 8-Malagasy FR4 guide catheter and placed the guide catheter just at the ostium of the left subclavian artery. We then crossed the lesion with [employer] glidewire. We then took a 6 x 20 x 135 kiln charger balloon; however, we could not get it up to the lesion since the wire was short. Therefore the wire was taken out and we took a [employer] 300 cm wire. We were then able to cross the lesion with the balloon and performed a balloon dilatation at 8 atmospheres for 24 seconds and another one at 10 atmospheres for 60 seconds. There was mild improvement in stenosis severity; however, there was significant recoil. At this point in time we did understand that stenting will be required. Therefore another inflation at 14 atmospheres for 30 seconds was also performed. We prepared an Omnilink Elite 9 x 29 x 80 stent. The J-wire that we had crossed the lesion via the left radial artery was taken out. We then placed a stent in the ostium of the left subclavian artery. We were not able to take pictures through the left femoral artery since the inner shaft of the 8-Malagasy guide catheter with the stent within in it would not allow us to take a picture. Therefore, we needed some kind of anatomical landmarks. We also put a JR 4 diagnostic catheter in the left radial artery and advanced it up to the level of the proximal subclavian artery for angiography. Therefore with the help of angiography guidance, we placed a stent in the ostium of the subclavian. Since the previous tendency of the balloons was to migrate distally in the subclavian, we put in some back pressure while we deployed the stent. We deployed the stent at 6 atmospheres for 19 seconds. Post angiography it revealed that there were few struts which were in the aortic arch. However, the lesion was well covered and significant reduction in stenosis severity was noted. There was only 5 to 10% residue stenosis. Post angiography showed excellent results; however, with few stent struts in the aortic arch. Post angiography did not reveal any complication. Final result was excellent. All the catheters were pulled out. A transradial band was placed on the left radial artery. The left femoral artery sheath will be closed with manual compression. The patient was transferred to the recovery area with no complication and stable vital signs. ACT during the procedure was over 220 seconds. CONTRAST: 160 mL of Omnipaque. FLUOROSCOPY TIME: 18.9 minutes. FLUOROSCOPY DOSE: 547 mGy IMPRESSION/CONCLUSION: 1. Patent RODRIGUEZ to the LAD. 2. Severe stenosis of the ostium of the left subclavian artery. 3. Successful angioplasty/stenting to the ostium of the left subclavian artery. PLAN: 1. Aspirin, Plavix, statin. 2. BUN and creatinine in the morning. 3. Continue further management as per Dr. Subramanian. Job ID: [id number] Dictated Date: 04/18/2016 17:10:23 Transportation Security Screener Date: 04/22/2016 05:53:10 / danya PEÑA
== END 2016-04-19 09:30 | disposition home or self-care (01) ==
LOC: CATH 07:52 → CSD 13:35 → CATH 04-19 09:30
PROVIDERS: ATTEND Internal Medicine Cardiovascular Disease
DX: I25.110 Atherosclerotic heart disease of native coronary artery with unstable angina pectoris (principal); I25.82 Chronic total occlusion of coronary artery; I70.228 Atherosclerosis of native arteries of extremities with rest pain, other extremity; I10 Essential (primary) hypertension; F17.210 Nicotine dependence, cigarettes, uncomplicated; I65.23 Occlusion and stenosis of bilateral carotid arteries; E78.00 Pure hypercholesterolemia, unspecified; Z95.1 Presence of aortocoronary bypass graft; Z79.899 Other long term (current) drug therapy
CPT/HCPCS: 36221; 36415; 37236; 71010; 75710; 80048; 80053; 80061; 81000; 85027; 85347; 85610; 85730; 87081; 93005; 93455; 93459; 93567

== ENCOUNTER → 2016-07-18 | Emergency (ER) | payer MEDICARE, BC ==
[~2016-07-18] VITALS: Ht 182.9 cm; Wt 92.1 kg
[~2016-07-18] MED LIST changes: +ASPIRIN 81 MG CHEW (CHILDREN'S ASA) PO ONE; +ATOR40TA70 PO; +CLOP75TA28 PO; +FLAX SEED OIL PO; +HYDR-3820 PO; +HYDROcodone/APAP 10 MG/325 MG (LORTAB) TAB PO STA; +IOHEXOL 350 MG/ML 150 ML (OMNIPAQUE 350) VIAL IV ONE; +KETOROLAC 30 MG/ML VIAL IVP STA; +MAGN400T39 PO; +NS 100 ML (IVPB) BAG IV ONE; +NS IV 500 ML 500 ML IV ONE; +OMEG10005 PO; +ORPHENADRINE 60 MG/2 ML (NORFLEX) AMP IM STA; +SILD100T PO; +VITA150T PO; +morphine INJ 10 MG/ML 1ML (SYR OR VIAL) IVP STA
[2016-07-18 11:42] LABS: BASOPHILS % (AUTO) 0 % (0-10); EOSINOPHILS # (AUTO) 0.2 10^3/uL (0.0-0.3); EOSINOPHILS % (AUTO) 2 % (0-10); LYMPHOCYTES # (AUTO) 1.2 X 10^3 (1.0-4.0); LYMPHOCYTES % (AUTO) 12 % (12-44); MEAN CORPUSCULAR HEMOGLOBIN 34 PG (25-34); MEAN CORPUSCULAR HGB CONC 34 G/DL (32-36); MEAN CORPUSCULAR VOLUME 99 FL (80-99); MEAN PLATELET VOLUME 9.5 FL (7.4-10.4); MONOCYTES # (AUTO) 1.1 X 10^3 (0.0-1.0); MONOCYTES % (AUTO) 11 % (0-12); NEUTROPHILS # (AUTO) 7.4 X 10^3 (1.8-7.8); NEUTROPHILS % (AUTO) 75 % (42-75); PLATELET COUNT 195 10^3/uL (130-400); RED BLOOD COUNT 4.22 10^6/uL (4.35-5.85); RED CELL DISTRIBUTION WIDTH 13.7 % (10.0-14.5); WHITE BLOOD COUNT 9.8 10^3/uL (4.3-11.0)
[2016-07-18 11:45] LABS: INR 1.1 (0.8-1.4); PROTHROMBIN TIME PATIENT 13.8 SEC (12.2-14.7)
[2016-07-18 11:54] LABS: ALANINE AMINOTRANSFERASE 13 U/L (0-55); ALBUMIN 4.1 G/DL (3.2-4.5); ANION GAP 9 MMOL/L (5-14); ASPARTATE AMINO TRANSFERASE 18 U/L (5-34); BILIRUBIN,TOTAL 0.7 MG/DL (0.1-1.0); BLOOD UREA NITROGEN 11 MG/DL (7-18); BUN/CREATININE RATIO 9; CALCIUM 9.5 MG/DL (8.5-10.1); CARBON DIOXIDE 23 MMOL/L (21-32); CHLORIDE 107 MMOL/L (98-107); CREATININE SERUM 1.18 MG/DL (0.60-1.30); GFR ESTIMATED 60; GLUCOSE 127 MG/DL (70-105); POTASSIUM 4.4 MMOL/L (3.6-5.0); SODIUM 139 MMOL/L (135-145); TOTAL PROTEIN 6.8 G/DL (6.4-8.2)
--- NOTE | 2016-07-18 11:54 | Diagnostic Imaging Report ---
Portable upright radiograph of the chest. INDICATION: Chest pain. FINDINGS: The heart size is at the upper limits of normal. There are prominent pulmonary interstitial markings which are in part chronic but component of vascular congestion appears to be present. No significant infiltrate or edema. No effusion or pneumothorax. The mediastinum and crispin appear unremarkable. Sternotomy wires are seen with fractures noted in these wires. There is minimal distraction particularly in the upper wires. IMPRESSION: Chronic interstitial thickening with superimposed minimal vascular congestion suggested. Dictated by: Dictated on workstation # [id number]
[2016-07-18 12:00] LABS: MYOGLOBIN SERUM 75.4 NG/ML (10.0-92.0)
--- NOTE | 2016-07-18 13:07 | ED Chest Pain ---
General Chief Complaint: Chest Pain Stated Complaint: CHEST PAIN Source: patient Exam Limitations: no limitations History of Present Illness Time seen by provider: 12:40 Initial Comments Here with report of onset of chest pains morning that is anterior and posterior. He had this yesterday as well.States this started his neck pain a few days ago and has radiated down and now is mostly encompassing his left shoulder area front and back including the shoulder blade and the pectoralis muscle area. 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 ASSISTANT: No NTG SL FLOOR COVERING PRINTER ASSISTANT: No Associated Symptoms: No abdominal pain, back pain, No fever/chills, No nausea/ vomiting, shortness of breath, No weakness Allergies and Home Medications Allergies Coded Allergies: No Known Drug Allergies (Verified , 02/23/08) Home Medications Allopurinol 100 Mg Tab, 100 MG PO BID, (Reported) Aspirin 81 Mg Tabec, 81 MG PO HS, (Reported) Atorvastatin Calcium 40 Mg Tablet, 20 MG PO HS, (Reported) TAKES 1/2 (40MG) TABLET Calcium Carbonate/Vitamin D3 1 Each Tablet, 1 TAB PO HS, (Reported) Clopidogrel Bisulfate 75 Mg Tablet, 75 MG PO DAILY, #30 Ref 4 Prescribed by: KAYLEY LAMBERT on 04/19/16 0829 Doxazosin Mesylate 4 Mg Tab, 4 MG PO DAILY, (Reported) Hydrocodone/Acetaminophen 1 Each Tablet, 1-2 TAB PO Q4H PRN for PAIN, (Reported) Levothyroxine Sodium 50 Mcg Tablet, 50 MCG PO DAILY, (Reported) Lisinopril 10 Mg Tablet, 10 MG PO DAILY, (Reported) Magnesium Oxide 400 Mg Tablet, 400 MG PO HS, (Reported) Metoprolol Succinate 25 Mg Tab.sr.24h, 25 MG PO DAILY, (Reported) Multivitamin 1 Each Tablet, 0.5 TAB PO BID, (Reported) Omeprazole 20 Mg Capsule.dr, 20 MG PO BID, (Reported) Potassium 99 Mg Tablet, 99 MG PO HS, (Reported) Sildenafil Citrate 100 Mg Tablet, 100 MG PO DAILY PRN for ED, (Reported) Vitamin B Complex & Vit C No.4 150 Mg Tablet, 150 MG PO DAILY, (Reported) [Flax Seed Oil] , 0.5 TBS PO HS, (Reported) Review of Systems Constitutional: see HPI, No chills, No fever EENTM: No Symptoms Reported Respiratory: See HPI, Shortness of Air Cardiovascular: See HPI, Chest Pain, Denies Edema, Denies Lightheadedness Gastrointestinal: Denies Nausea, Denies Vomiting Genitourinary: No Symptoms Reported Musculoskeletal: see HPI, back pain, muscle pain, muscle stiffness Skin: no symptoms reported All Other Systems Reviewed Negative Unless Noted: Yes Past Obknjvj-Oatrug-Yuyety Hx Patient Social History Alcohol Use: Denies Use Recreational Drug Use: No Smoking Status: Current Everyday Smoker Type Used: Cigarettes Recent Hopitalizations: Yes Immunizations Up To Date Tetanus Booster (TDap): More than 5yrs Date of Pneumonia Vaccine: Nov 25, 2011 Date of Influenza Vaccine: Dec 19, 2015 Surgeries HX Surgeries: Yes (BACK SURGERY) Surgeries: CABG Respiratory Hx Respiratory Disorders: No Cardiovascular Hx Cardiac Disorders: Yes Neurological Hx Neurological Disorders: No Reproductive System Hx Reproductive Disorders: No Genitourinary Hx Genitourinary Disorders: No Genitourinary Disorders: Prostate Problems Gastrointestinal Hx Gastrointestinal Disorders: No Gastrointestinal Disorders: Gastroesophageal Reflux Musculoskeletal Hx Musculoskeletal Disorders: No Musculoskeletal Disorders: Arthritis, Chronic Back Pain, Gout Endocrine Hx Endocrine Disorders: Yes Endocrine Disorders: Hypothyroidsim HEENT HX ENT Disorders: No Cancer Hx Cancer: No Cancer: Prostate Psychosocial Hx Psychiatric Problems: No Integumentary HX Skin/Integumentary Disorder: No Blood Transfusions Hx Blood Disorders: No Reviewed Nursing Assessment Reviewed/Agree w Nursing PMH: Yes Family Medical History Family Medial History: Cardiovascular disease 19 MOTHER Myocardial infarction 19 FATHER Physical Exam Vital Signs Vital Sign - Last 12Hours 07/18/16 10:55 Temp 98.0 Pulse 109 Resp 18 B/P (MAP) 121/88 Capillary Refill : General Appearance: No Apparent Distress, WD/WN HEENT: PERRL/EOMI, Pharynx Normal Neck: Non Tender, Supple Respiratory: Lungs Clear, Normal Breath Sounds, Other (reproducible left anterior chest wall pain.) Cardiovascular: Regular Rate, Rhythm, No Murmur Gastrointestinal: Non Tender, Soft Extremity: No Calf Tenderness, Other (tender along the medial aspect of the left shoulder blade with muscle spasms noted.) Neurologic/Psychiatric: Alert, Oriented x3 Skin: Normal Color, Warm/Dry Progress/Results/Core Measures Results/Orders Lab Results Laboratory Tests Test 07/18/16 11:10 07/18/16 15:47 Range/Units White Blood Count 9.8 4.3-11.0 10^3/uL Red Blood Count 4.22 L 4.35-5.85 10^6/uL Hemoglobin 14.3 13.3-17.7 G/DL Hematocrit 42 40-54 % Mean Corpuscular Volume 99 80-99 FL Mean Corpuscular Hemoglobin 34 25-34 PG Mean Corpuscular Hemoglobin Concent 34 32-36 G/DL Red Cell Distribution Width 13.7 10.0-14.5 % Platelet Count 195 130-400 10^3/uL Mean Platelet Volume 9.5 7.4-10.4 FL Neutrophils (%) (Auto) 75 42-75 % Lymphocytes (%) (Auto) 12 12-44 % Monocytes (%) (Auto) 11 0-12 % Eosinophils (%) (Auto) 2 0-10 % Basophils (%) (Auto) 0 0-10 % Neutrophils # (Auto) 7.4 1.8-7.8 X 10^3 Lymphocytes # (Auto) 1.2 1.0-4.0 X 10^3 Monocytes # (Auto) 1.1 H 0.0-1.0 X 10^3 Eosinophils # (Auto) 0.2 0.0-0.3 10^3/uL Basophils # (Auto) 0.0 0.0-0.1 10^3/uL Prothrombin Time 13.8 12.2-14.7 SEC INR Comment 1.1 0.8-1.4 Activated Partial Thromboplast Time 27 24-35 SEC D-Dimer 0.98 H 0.00-0.49 UG/ML Sodium Level 139 135-145 MMOL/L Potassium Level 4.4 3.6-5.0 MMOL/L Chloride Level 107 98-107 MMOL/L Carbon Dioxide Level 23 21-32 MMOL/L Anion Gap 9 5-14 MMOL/L Blood Urea Nitrogen 11 7-18 MG/DL Creatinine 1.18 0.60-1.30 MG/DL Estimat Glomerular Filtration Rate 60 BUN/Creatinine Ratio 9 Glucose Level 127 H 70-105 MG/DL Calcium Level 9.5 8.5-10.1 MG/DL Magnesium Level 2.0 1.8-2.4 MG/DL Total Bilirubin 0.7 0.1-1.0 MG/DL Aspartate Amino Transf (AST/SGOT) 18 5-34 U/L Alanine Aminotransferase (ALT/SGPT) 13 0-55 U/L Alkaline Phosphatase 116 40-136 U/L Myoglobin 75.4 10.0-92.0 NG/ML Troponin I < 0.30 < 0.30 <0.30 NG/ML Total Protein 6.8 6.4-8.2 G/DL Albumin 4.1 3.2-4.5 G/DL My Orders Orders - JANN YADAV MD Cbc With Automated Diff (07/18/16 11:25) Magnesium (07/18/16 11:25) Chest 1 View, Ap/Pa Only (07/18/16 11:25) Ekg Tracing (07/18/16 11:25) Cardiac Profile 1 (07/18/16 11:25) Comprehensive Metabolic Panel (07/18/16 11:25) Myoglobin Serum (07/18/16 11:25) Protime With Inr (07/18/16 11:25) Partial Thromboplastin Time (07/18/16 11:25) O2 (07/18/16 11:25) Monitor-Rhythm Ecg Trace Only (07/18/16 11:25) Lipid Panel (07/19/16 06:00) Aspirin Chewable Tablet (Baby Aspirin Ch (07/18/16 11:30) Saline Lock/Iv-Start (07/18/16 11:25) Fibrin Degradation Products (07/18/16 13:04) Ketorolac Injection (Toradol Injection) (07/18/16 13:04) Orphenadrine Injection (Norflex Injectio (07/18/16 13:04) Ct Angio Chest W (07/18/16 13:31) Ns Iv 500 Ml (Sodium Chloride 0.9%) (07/18/16 13:31) Iohexol Injection (Omnipaque 350 Mg/Ml 1 (07/18/16 14:15) Ns (Ivpb) (Sodium Chloride 0.9% Ivpb Bag (07/18/16 14:15) Troponin I (07/18/16 15:44) Ekg Tracing (07/18/16 15:44) Hydrocodone/Apap 10/325 Tablet (Lortab 1 (07/18/16 15:44) Morphine Injection (Morphine Injection (07/18/16 16:56) Medications Given in ED Current Medications Medications Dose Ordered Sig/Claudette Route Start Time Stop Time Status Last Admin Dose Admin Aspirin 324 mg ONCE ONCE PO 07/18/16 11:30 07/18/16 11:31 DC 07/18/16 12:06 324 MG Iohexol 150 ml ONCE ONCE IV 07/18/16 14:15 07/18/16 14:16 DC 07/18/16 14:16 125 ML Sodium Chloride 100 ml ONCE ONCE IV 07/18/16 14:15 07/18/16 14:16 DC 07/18/16 14:17 80 ML Sodium Chloride 500 ml @ 0 mls/hr Q0M ONCE IV 07/18/16 13:31 07/18/16 13:32 DC 07/18/16 13:41 500 MLS/HR Vital Signs/I&O Vital Sign - Last 12Hours 07/18/16 10:55 Temp 98.0 Pulse 109 Resp 18 B/P (MAP) 121/88 Progress Note : Progress Note Seen and evaluated. IV, labs, EKG and chest x-ray ordered. Toradol and Norflex ordered. CT angiogram chest ordered due to elevated d-dimer. Normal saline 500 mL bolus. Monitor patient. Improved after pain medication. 1530: Patient has some return of pain. He is due his normal dosing of pain medicine. Hydrocodone 10/325 2 tabs by mouth 1. We will check repeat troponin and EKG as the patient would like to go home if possible. He has responded nicely to fluids. CT angiogram noted and results discussed. He does have pulmonary nodules that need follow-up and this was discussed with him. Copy of chart to his primary care physician. Pending troponin. 1650: Troponin negative. Discharged home with return precautions. Patient verbalize understanding instructions and agreement with plan. ECG Initial ECG Impression Date: Jul 18, 2016 Initial ECG Impression Time: 11:03 Initial ECG Rate: 94 Initial ECG Rhythm: Normal Sinus Comment Sinus rhythm with PAC. No evidence of ST elevation IA. Overall similar to previous except for rate increased. Interpreted by me. EKG : EKG Time: 15:53 Rate: 73 Rhythm: Normal Sinus ECG Comparisson: Unchanged Comment Sinus rhythm with leftward axis. No evidence of ST elevation IA. Morphology similar to previous. Rate slower now. Interpreted by me. Diagnostic Imaging Diagonstic Imaging: Xray Plain Films/CT/US/NM/MRI: chest [facility] [place], [place] NAME: TENISHA ESCAMILLA [facility] REC#: [id number] PT STATUS: REG ER : 1940 PHYSICIAN: JANN YADAV MD ADMIT DATE: 07/18/16/ER Draft Date of Exam:07/18/16 CHEST 1 VIEW, AP/PA ONLY Portable upright radiograph of the chest. INDICATION: Chest pain. FINDINGS: The heart size is at the upper limits of normal. There are prominent pulmonary interstitial markings which are in part chronic but component of vascular congestion appears to be present. No significant infiltrate or edema. No effusion or pneumothorax. The mediastinum and crispin appear unremarkable. Sternotomy wires are seen with fractures noted in these wires. There is minimal distraction particularly in the upper wires. IMPRESSION: Chronic interstitial thickening with superimposed minimal vascular congestion suggested. Dictated on workstation # [id number] Dict: 07/18/16 1146 Trans: 07/18/16 1154 YEYO [id number] Interpreted by: RICHARDSON MONTES DE OCA MD Electronically signed by: Diagonstic Imaging: CT Plain Films/CT/US/NM/MRI: chest Comments [facility]. [place], [place] NAME: TENISHA ESCAMILLA [facility] REC#: [id number] PT STATUS: REG ER : 1940 PHYSICIAN: JANN YADAV MD ADMIT DATE: 07/18/16/ER Draft Date of Exam:07/18/16 CT ANGIO CHEST W PROCEDURE: CT angiography of the chest with contrast. TECHNIQUE: Multiple contiguous axial images were obtained through the chest after uneventful bolus administration of intravenous contrast. Reconstructed CTA MIP acquisitions were also performed. INDICATION: Chest pain. History of melanoma and prostate cancer. 125 mL of Omnipaque 350 is administered intravenously. FINDINGS: The pulmonary arteries are well opacified with no filling defects to suggest pulmonary embolism. The thoracic aorta is normal in caliber with tortuosity seen. No dissection. The heart size is at the upper limits of normal. No pericardial or pleural effusion. There is no mediastinal mass. There is no mediastinal or hilar lymphadenopathy. No axillary lymphadenopathy. There is a stent in the proximal aspect of the left subclavian artery projecting into the aortic arch which appears patent. There is a 6 mm indeterminate nodule in the right middle lobe, axial image 76. A followup study in 4 months is recommended with an unenhanced low-dose CT scan of the chest to observe this nodule. There are nonspecific subpleural fibrotic changes seen predominantly noted in the midlung zone of uncertain etiology. There is no significant consolidation or mass. 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 Sections in the upper abdomen demonstrate a cystic lesion in the pancreatic tail measuring 1.9 cm in size stable from 2009 compatible with benign etiology. The osseous structures demonstrate an old compression fracture of T12 vertebral body, about 20% vertebral body height loss. IMPRESSION: 1. No evidence of pulmonary embolism or aortic dissection. Indeterminate 6 mm right middle lobe pulmonary nodule. A followup study in 4-6 months is recommended with an unenhanced low-dose protocol CT chest. 2. Nonspecific subpleural fibrotic changes predominantly in the mid lung zones. Dictated on workstation # [id number] Dict: 07/18/16 1452 Trans: 07/18/16 1509 [facility] [id number] Interpreted by: RICHARDSON MONTES DE OCA MD Electronically signed by: Departure Impression Impression: Primary Impression: Chest pain Qualified Codes: R07.1 - Chest pain on breathing Additional Impressions: Upper back pain on left side Pulmonary nodule Disposition: 01 HOME, SELF-CARE Condition: Improved Departure-Patient Inst. Decision time for Depature: 15:59 Referrals: FARRUKH SCOTT MD (PCP/Family) Primary Care Physician Patient Instructions: Chest Pain (DC), Muscle Strain (DC), Single Pulmonary Nodule Add. Discharge Instructions: All discharge instructions reviewed with patient and/or family. Voiced understanding. Take medications as directed. Follow-up with your DrMackenzie in a few days for recheck. Return for worse pain, fever, vomiting, weakness, breathing problems or other concerns as needed. Follow-up with your fox raiser in a few days for recheck. You have pulmonary nodules that will need to be evaluated further with CT scan in 4-6 months. You should talk with your doctor about this and get that set up. Copy Copies To 1: FARRUKH SCOTT MD Copies To 2: KAYLEY LAMBERT MD, TIMOTHY D MD Jul 18, 2016 13:07
--- NOTE | 2016-07-18 15:10 | Diagnostic Imaging Report ---
PROCEDURE: CT angiography of the chest with contrast. TECHNIQUE: Multiple contiguous axial images were obtained through the chest after uneventful bolus administration of intravenous contrast. Reconstructed CTA MIP acquisitions were also performed. INDICATION: Chest pain. History of melanoma and prostate cancer. 125 mL of Omnipaque 350 is administered intravenously. FINDINGS: The pulmonary arteries are well opacified with no filling defects to suggest pulmonary embolism. The thoracic aorta is normal in caliber with tortuosity seen. No dissection. The heart size is at the upper limits of normal. No pericardial or pleural effusion. There is no mediastinal mass. There is no mediastinal or hilar lymphadenopathy. No axillary lymphadenopathy. There is a stent in the proximal aspect of the left subclavian artery projecting into the aortic arch which appears patent. There is a 6 mm indeterminate nodule in the right middle lobe, axial image 76. A followup study in 4 months is recommended with an unenhanced low-dose CT scan of the chest to observe this nodule. There are nonspecific subpleural fibrotic changes seen predominantly noted in the midlung zone of uncertain etiology. There is no significant consolidation or mass. 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 Sections in the upper abdomen demonstrate a cystic lesion in the pancreatic tail measuring 1.9 cm in size stable from 2010 compatible with benign etiology. The osseous structures demonstrate an old compression fracture of T12 vertebral body, about 20% vertebral body height loss. IMPRESSION: 1. No evidence of pulmonary embolism or aortic dissection. Indeterminate 6 mm right middle lobe pulmonary nodule. A followup study in 4-6 months is recommended with an unenhanced low-dose protocol CT chest. 2. Nonspecific subpleural fibrotic changes predominantly in the mid lung zones. Dictated by: Dictated on workstation # [id number]
[2016-07-18 17:07] VITALS: BP 126/87
--- OUTSIDE RECORDS SUMMARY | 2016-08-18 21:19 | XMS REPORT | Continuity of Care Document ---
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 OTHER DETENTION (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 THERAPY 02/14/2016 LINDSAY SIMMS Ot 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 02/14/2016 LINDSAY SIMMS Ot F17.200 NICOTINE DEPENDENCE, UNSPECIFIED, UNCOMP 02/14/2016 LINDSAY SIMMS Fausto Ot Z08 ENCNTR FOR FOLLOW-UP EXAM AFTER TRTMT FO 02/14/2016 LINDSAY SIMMS Ot Z79.899 OTHER DETENTION (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 THERAPY 02/14/2016 LINDSAY SIMMS Ot 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 03/05/2016 LINDSAY SIMMS Ot F17.210 NICOTINE DEPENDENCE, CIGARETTES, UNCOMPL 03/05/2016 LINDSAY SIMMS Ot Z08 ENCNTR FOR FOLLOW-UP EXAM AFTER TRTMT FO 03/05/2016 LINDSAY SIMMS Ot Z79.899 OTHER DETENTION (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 THERAPY 03/05/2016 LINDSAY SIMMS Ot 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 04/17/2016 Ot 702.0 ACTINIC KERATOSIS 04/17/2016 Ot V10.46 HX-PROSTATIC MALIGNANCY 04/17/2016 Ot V10.82 HX-MALIG SKIN MELANOMA 04/17/2016 Ot V58.65 LONG-TERM(CURRENT)USE OF STEROIDS 04/17/2016 Ot V58.66 LONG-TERM (CURRENT) USE OF ASPIRIN 04/17/2016 Ot V58.69 OTH MED,LT,CURRENT USE 04/17/2016 Ot V67.09 SURGERY FOLLOW-UP, OTHER SURGERY 04/17/2016 Ot 784.51 DYSARTHRIA 04/17/2016 Ot V10.46 HX-PROSTATIC MALIGNANCY 04/17/2016 Ot 305.1 TOBACCO USE DISORDER 04/17/2016 Ot 702.0 ACTINIC KERATOSIS 04/17/2016 Ot V10.46 HX-PROSTATIC MALIGNANCY 04/17/2016 Ot V10.82 HX-MALIG SKIN MELANOMA 04/17/2016 Ot V58.65 LONG-TERM(CURRENT)USE OF STEROIDS 04/17/2016 Ot V58.66 LONG-TERM (CURRENT) USE OF ASPIRIN 04/17/2016 Ot V58.69 OT MED,LT,CURRENT USE 04/17/2016 Ot V67.09 SURGERY FOLLOW-UP, OTHER SURGERY 04/17/2016 Ot 735.4 OTHER HAMMER TOE 04/17/2016 Ot V72.63 PRE-PROCEDURAL LABORATORY EXAMINATION 04/17/2016 Ot V74.8 SCREEN-BACTERIAL DIS NEC 04/17/2016 Ot 173.31 BASAL CELL CARCINOMA OF SKIN OF OTH UN 04/17/2016 Ot 173.61 BASAL CELL CARCINOMA OF SKIN OF UPPER LI 04/17/2016 Ot 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 04/17/2016 Ot 216.5 BENIGN JENNIFER SKIN TRUNK 04/17/2016 Ot 702.0 ACTINIC KERATOSIS 04/17/2016 Ot 702.19 OTHER SEBORRHEIC KERATOSIS 04/17/2016 Ot 735.4 OTHER HAMMER TOE 04/17/2016 Ot 305.1 TOBACCO USE DISORDER 04/17/2016 Ot 702.0 ACTINIC KERATOSIS 04/17/2016 Ot V10.46 HX-PROSTATIC MALIGNANCY 04/17/2016 Ot V10.82 HX-MALIG SKIN MELANOMA 04/17/2016 Ot V58.65 LONG-TERM(CURRENT)USE OF STEROIDS 04/17/2016 Ot V58.66 LONG-TERM (CURRENT) USE OF ASPIRIN 04/17/2016 Ot V58.69 OT MED,LT,CURRENT USE 04/17/2016 Ot V67.09 SURGERY FOLLOW-UP, OTHER SURGERY 04/17/2016 MATTHEW LIU, ELO Patiño Ot 735.4 OTHER HAMMER TOE 04/17/2016 MATTHEW LIU, ELO Patiño Ot V72.83 EXAM PRE-OPERATIVE NEC 04/17/2016 MATTHEW LIU, ELO Patiño Ot V74.8 SCREEN-BACTERIAL DIS NEC 04/17/2016 LINDSAY SIMMS Ot 305.1 TOBACCO USE DISORDER 04/17/2016 LINDSAY SIMMS Ot V10.46 HX-PROSTATIC MALIGNANCY 04/17/2016 LINDSAY SIMMS Fausto Ot V10.82 HX-MALIG SKIN MELANOMA 04/17/2016 LINDSAY SIMMS Fausto Ot V58.65 LONG-TERM(CURRENT)USE OF STEROIDS 04/17/2016 LINDSAY SIMMS Fausto Ot V58.66 LONG-TERM (CURRENT) USE OF ASPIRIN 04/17/2016 LINDSAY SIMMS Fausto Ot V58.69 OTH MED,LT,CURRENT USE 04/17/2016 LINDSAY SIMMS Fausto Ot V67.09 SURGERY FOLLOW-UP, OTHER SURGERY 04/17/2016 LIANA ARIAS Ot 244.9 HYPOTHYROIDISM NOS 04/17/2016 LIANA ARIAS Ot 272.0 PURE HYPERCHOLESTEROLEM 04/17/2016 LIANA ARIAS Ot 401.9 HYPERTENSION NOS 04/17/2016 LIANA ARIAS Ot 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 NOS TYPE VESSEL, NATIV 04/17/2016 LIANA ARIAS Ot 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 W O CEREBRAL IN 04/17/2016 LIANA ARIAS Ot 780.4 DIZZINESS AND GIDDINESS 04/17/2016 LIANA ARIAS Ot V15.82 HISTORY OF TOBACCO USE 04/17/2016 KAYLEY LAMBERT MD Ot 244.9 HYPOTHYROIDISM NOS 04/17/2016 KAYLEY LAMBERT MD Ot 272.4 HYPERLIPIDEMIA NEC/NOS 04/17/2016 KAYLEY LAMBERT MD Ot 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 04/17/2016 KAYLEY LAMBERT MD Ot 397.0 TRICUSPID VALVE DISEASE 04/17/2016 KAYLEY LAMBERT MD Ot 401.9 HYPERTENSION NOS 04/17/2016 KAYLEY LAMBERT MD Ot 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 NOS TYPE VESSEL, NATIV 04/17/2016 KAYLEY LAMBERT MD Ot 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 W O CEREBRAL IN 04/17/2016 KAYLEY LAMBERT MD Ot 780.4 DIZZINESS AND GIDDINESS 04/17/2016 KAYLEY LAMBERT MD Ot V15.82 HISTORY OF TOBACCO USE 04/17/2016 KAYLEY LAMBERT MD Ot 272.0 PURE HYPERCHOLESTEROLEM 04/17/2016 KAYLEY LAMBERT MD Ot 305.1 TOBACCO USE DISORDER 04/17/2016 KAYLEY LAMBERT MD Ot 401.9 HYPERTENSION NOS 04/17/2016 KAYLEY LAMBERT MD Ot 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 NOS TYPE VESSEL, NATIV 04/17/2016 KAYLEY LAMBERT MD Ot 440.0 AORTIC ATHEROSCLEROSIS 04/17/2016 ANTHONY CASTRO S SHOE SALESMAN Ot 305.1 TOBACCO USE DISORDER 04/17/2016 ANTOHNY CASTRO SHOE SALESMAN Ot 709.9 SKIN DISORDER NOS 04/17/2016 CASTROANTHONY Camarillo S SHOE SALESMAN Ot 787.99 OTHER GI SYSTEM SYMPTOMS 04/17/2016 ANTHONY CASTRO S SHOE SALESMAN Ot V10.82 HX-MALIG SKIN MELANOMA 04/17/2016 KAYLEY LAMBERT MD Ot 272.0 PURE HYPERCHOLESTEROLEM 04/17/2016 KAYLEY LAMBERT MD Ot 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 04/17/2016 KAYLEY LAMBERT MD Ot 397.0 TRICUSPID VALVE DISEASE 04/17/2016 KAYLEY LAMBERT MD Ot 401.9 HYPERTENSION NOS 04/17/2016 KAYLEY LAMBERT MD Ot 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 NOS TYPE VESSEL, NATIV 04/17/2016 KAYLEY LAMBERT MD Ot 429.3 CARDIOMEGALY 04/17/2016 KAYLEY LAMBERT MD Ot 272.0 PURE HYPERCHOLESTEROLEM 04/17/2016 KAYLEY LAMBERT MD Ot 401.9 HYPERTENSION NOS 04/17/2016 KAYLEY LAMBERT MD Ot 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 NOS TYPE VESSEL, NATIV 04/17/2016 KAYLEY LAMBERT MD Ot 427.69 PREMATURE BEATS NEC 04/17/2016 GÉNESIS MIRAMONTES DO Ot 305.1 TOBACCO USE DISORDER 04/17/2016 GÉNESIS MIRAMONTES DO Ot 780.54 HYPERSOMNIA, UNSPECIFIED 04/17/2016 GÉNESIS MIRAMONTES DO Ot 786.09 RESPIRATORY ABNORM NEC 04/17/2016 Ot 486 PNEUMONIA, ORGANISM NOS 04/17/2016 Ot 780.60 FEVER, UNSPECIFIED 04/17/2016 Ot 786.2 COUGH 04/17/2016 LINDSAY SIMMS Ot F17.200 NICOTINE DEPENDENCE, UNSPECIFIED, UNCOMP 04/17/2016 LINDSAY SIMMS Ot Z08 ENCNTR FOR FOLLOW-UP EXAM AFTER TRTMT FO 04/17/2016 LINDSAY SIMMS Fausto Ot Z79.899 OTHER DETENTION (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 THERAPY 04/17/2016 LINDSAY SIMMS Fausto Ot 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 04/17/2016 GEOFFREY INGRAM, LIANA K Ot E78.0 PURE HYPERCHOLESTEROLEMIA 04/17/2016 GEOFFREY INGRAM, LIANA K Ot I10 ESSENTIAL (PRIMARY) HYPERTENSION 04/17/2016 GEOFFREY INGRAM, LIANA K Ot I25.10 ATHSCL HEART DISEASE OF [place] CORONARY 04/17/2016 TANGJOSE INGRAM, LIANA K Ot 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 04/17/2016 TANGJOSE INGRAM, LIANA K Ot E78.0 PURE HYPERCHOLESTEROLEMIA 04/17/2016 GEOFFREY INGRAM, LIANA K Ot I10 ESSENTIAL (PRIMARY) HYPERTENSION 04/17/2016 GEOFFREY INGRAM, LIANA K Ot I25.10 ATHSCL HEART DISEASE OF [place] CORONARY 04/17/2016 GEOFFREY INGRAM, LIANA K Ot 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 04/17/2016 DEMI JAROCHOVANDANA Fausto Ot F17.200 NICOTINE DEPENDENCE, UNSPECIFIED, UNCOMP 04/17/2016 DEMI, JAROCHOVANDANA Fausto Ot Z08 ENCNTR FOR FOLLOW-UP EXAM AFTER TRTMT FO 04/17/2016 LINDSAY SIMMS Fausto Ot Z79.899 OTHER DETENTION (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 THERAPY 04/17/2016 DEMI JAROCHOVANDANA Fausto Ot 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 04/17/2016 LINDSAY SIMMS Ot F17.210 NICOTINE DEPENDENCE, CIGARETTES, UNCOMPL 04/17/2016 DEMI JAROCHOVANDANA Fausto Ot Z08 ENCNTR FOR FOLLOW-UP EXAM AFTER TRTMT FO 04/17/2016 DEMI, LINDSAY Lambert Ot Z79.899 OTHER GUT SORTER (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 THERAPY 04/17/2016 DEMILINDSAY Ot 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 05/16/2016 PETRA CASTANEDA, KAYLEY Rivera Ot E78.00 PURE HYPERCHOLESTEROLEMIA, UNSPECIFIED 05/16/2016 PETRA CASTANEDA, KAYLEY Rivera Ot F17.210 NICOTINE DEPENDENCE, CIGARETTES, UNCOMPL 05/16/2016 KAYLEY LAMBERT MD, Ot I10 ESSENTIAL (PRIMARY) HYPERTENSION 05/16/2016 KAYLEY LAMBERT MD, Ot I25.110 ATHSCL HEART DISEASE OF [place] COR ART W 05/16/2016 KAYLEY LAMBERT MD, Ot 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 05/16/2016 KAYLEY LAMBERT MD Ot 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 05/16/2016 KAYLEY LAMBERT MD, Ot Z79.899 OTHER DETENTION (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 THERAPY 05/16/2016 KAYLEY LAMBERT MD, Ot Z95.1 PRESENCE OF AORTOCORONARY BYPASS GRAFT 07/19/2016 JANN YADAV MD, Ot F17.210 NICOTINE DEPENDENCE, CIGARETTES, UNCOMPL 07/19/2016 JANN YADAV MD Ot M54.6 PAIN IN THORACIC SPINE 07/19/2016 JANN YADAV MD Ot R07.89 OTHER CHEST PAIN 07/19/2016 JANN YADAV MD Ot R07.9 CHEST PAIN, UNSPECIFIED 07/19/2016 JANN YADAV MD Ot R91.1 SOLITARY PULMONARY NODULE 07/19/2016 JANN YADAV MD Ot Z79.02 DETENTION (CURRENT) USE OF ANTITHROMBOTI 07/19/2016 JANN YADAV MD Ot Z79.899 OTHER DETENTION (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 THERAPY 07/19/2016 JANN YADAV MD Ot Z95.1 PRESENCE OF AORTOCORONARY BYPASS GRAFT 07/19/2016 JANN YADAV MD Ot F17.210 NICOTINE DEPENDENCE, CIGARETTES, UNCOMPL 07/19/2016 JANN YADAV MD Ot M54.6 PAIN IN THORACIC SPINE 07/19/2016 JANN YADAV MD Ot R07.89 OTHER CHEST PAIN 07/19/2016 JANN YADAV MD Ot R07.9 CHEST PAIN, UNSPECIFIED 07/19/2016 JANN YADAV MD Ot R91.1 SOLITARY PULMONARY NODULE 07/19/2016 JANN YADAV MD Ot Z79.02 DETENTION (CURRENT) USE OF ANTITHROMBOTI 07/19/2016 JANN YADAV MD Ot Z79.899 OTHER GUT SORTER (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 THERAPY 07/19/2016 JANN YADAV MD Ot Z95.1 PRESENCE OF AORTOCORONARY BYPASS GRAFT 07/20/2016 JANN YADAV MD Ot F17.210 NICOTINE DEPENDENCE, CIGARETTES, UNCOMPL 07/20/2016 JANN YADAV MD Ot M54.6 PAIN IN THORACIC SPINE 07/20/2016 JANN YADAV MD Ot R07.89 OTHER CHEST PAIN 07/20/2016 JANN YADAV MD Ot R07.9 CHEST PAIN, UNSPECIFIED 07/20/2016 JANN YADAV MD Ot R91.1 SOLITARY PULMONARY NODULE 07/20/2016 JANN YADAV MD Ot Z79.02 DETENTION (CURRENT) USE OF ANTITHROMBOTI 07/20/2016 JANN YADAV MD, Ot Z79.899 OTHER DETENTION (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 THERAPY 07/20/2016 JANN YADAV MD Ot Z95.1 PRESENCE OF AORTOCORONARY BYPASS GRAFT 08/01/2016 KAYLEY LAMBERT MD Ot E78.00 PURE HYPERCHOLESTEROLEMIA, UNSPECIFIED 08/01/2016 KAYLEY LAMBERT MD, Ot F17.210 NICOTINE DEPENDENCE, CIGARETTES, UNCOMPL 08/01/2016 KAYLEY LAMBERT MD Ot I10 ESSENTIAL (PRIMARY) HYPERTENSION 08/01/2016 KAYLEY LAMBERT MD Ot I25.110 ATHSCL HEART DISEASE OF [place] COR ART W 08/01/2016 KAYLEY LAMBERT MD Ot 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 08/01/2016 KAYLEY LAMBERT MD Ot 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 08/01/2016 KAYLEY LAMBERT MD Ot I70.228 ATHSCL [place] ARTERIES OF EXTRM W REST P 08/01/2016 KAYLEY LAMBERT MD, Ot Z79.899 OTHER DETENTION (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 THERAPY 08/01/2016 KAYLEY LAMBERT MD Ot Z95.1 PRESENCE OF AORTOCORONARY BYPASS GRAFT 08/06/2016 KAYLEY LAMBERT MD Ot I20.8 OTHER FORMS OF ANGINA PECTORIS 08/13/2016 KAYLEY LAMBERT MD, Ot I20.8 OTHER FORMS OF ANGINA PECTORIS Procedures Results Test Result Range Complete urinalysis with reflex to culture - 04/17/16 08:15 Urine color determination YELLOW NRG Urine clarity determination CLEAR NRG Urine pH measurement by test strip 5 5- 9 Specific gravity of urine by test strip 1.020 1.016-1.022 Urine protein assay by test strip, semi-quantitative NEGATIVE NEGATIVE Urine glucose detection by automated test strip NEGATIVE NEGATIVE Erythrocytes detection in urine sediment by light microscopy NEGATIVE NEGATIVE Urine ketones detection by automated test strip NEGATIVE NEGATIVE Urine nitrite detection by test strip NEGATIVE NEGATIVE Urine total bilirubin detection by test strip NEGATIVE NEGATIVE Urine urobilinogen measurement by automated test strip (mass/volume) NORMAL NORMAL Urine leukocyte esterase detection by dipstick NEGATIVE NEGATIVE Automated urine sediment erythrocyte count by microscopy (number/high power field) NONE NRG Automated urine sediment leukocyte count by microscopy (number/high power field ) NONE NRG Bacteria detection in urine sediment by light microscopy NEGATIVE NRG Squamous epithelial cells detection in urine sediment by light microscopy RARE NRG Crystals detection in urine sediment by light microscopy NONE NRG Casts detection in urine sediment by light microscopy NONE NRG Mucus detection in urine sediment by light microscopy NEGATIVE NRG Complete urinalysis with reflex to culture NO NRG Automated blood complete blood count (hemogram) panel - 04/17/16 08:30 Blood leukocytes automated count (number/volume) 8.0 10*3/ uL 4.3-11.0 Blood erythrocytes automated count (number/volume) 4.50 10*6 /uL 4.35-5.85 Venous blood hemoglobin measurement (mass/volume) 15.2 g/dL 13.3-17.7 Blood hematocrit (volume fraction) 45 % 40-54 Automated erythrocyte mean corpuscular volume 99 [foz_us] 80-99 Automated erythrocyte mean corpuscular hemoglobin (mass per erythrocyte) 34 pg 25-34 Automated erythrocyte mean corpuscular hemoglobin concentration measurement ( mass/volume) 34 g/dL 32-36 Automated erythrocyte distribution width ratio 14.1 % 10.0-14.5 Automated blood platelet count (count/volume) 169 10*3/uL 130-400 Automated blood platelet mean volume measurement 9.4 [foz_us ] 7.4-10.4 PT panel in platelet poor plasma by coagulation assay - 04/17/16 08:30 Prothrombin time (PT) in platelet poor plasma by coagulation assay 12.8 s 12.2-14.7 INR in platelet poor plasma or blood by coagulation assay 1.0 0.8-1.4 Activated partial thromboplastin time (aPTT) in platelet poor plasma bycoagulation assay - 04/17/16 08:30 Activated partial thromboplastin time (aPTT) in platelet poor plasma bycoagulation assay 26 s 24-35 Comprehensive metabolic panel - 04/17/16 08:30 Serum or plasma sodium measurement (moles/volume) 140 mmol/ L 135-145 Serum or plasma potassium measurement (moles/volume) 4.2 mmol/L 3.6-5.0 Serum or plasma chloride measurement (moles/volume) 108 mmol /L 98-107 Carbon dioxide 23 mmol/L 21-32 Serum or plasma anion gap determination (moles/volume) 9 mmol/L 5-14 Serum or plasma urea nitrogen measurement (mass/volume) 13 mg/dL 7-18 Serum or plasma creatinine measurement (mass/volume) 1.10 mg /dL 0.60-1.30 Serum or plasma urea nitrogen/creatinine mass ratio 12 NRG Serum or plasma creatinine measurement with calculation of estimated glomerular filtration rate > NRG Serum or plasma glucose measurement (mass/volume) 97 mg/dL 70-105 Serum or plasma calcium measurement (mass/volume) 9.6 mg/dL 8.5-10.1 Serum or plasma total bilirubin measurement (mass/volume) 0.7 mg/dL 0.1-1.0 Serum or plasma alkaline phosphatase measurement (enzymatic activity/volume) 113 U/L 40-136 Serum or plasma aspartate aminotransferase measurement (enzymatic activity/ volume) 26 U/L 5-34 Serum or plasma alanine aminotransferase measurement (enzymatic activity/volume ) 23 U/L 0-55 Serum or plasma protein measurement (mass/volume) 7.1 g/dL 6.4-8.2 Serum or plasma albumin measurement (mass/volume) 4.5 g/dL 3.2-4.5 Lipid 1996 panel - 04/17/16 08:30 Serum or plasma triglyceride measurement (mass/volume) 144 mg/dL <150 Serum or plasma cholesterol measurement (mass/volume) 148 mg /dL < 200 Serum or plasma cholesterol in HDL measurement (mass/volume) 33 mg/dL 40-60 Cholesterol in LDL [mass/volume] in serum or plasma by direct assay 85 mg/dL 1-129 Serum or plasma cholesterol in VLDL measurement (mass/volume) 29 mg/dL 5-40 Methicillin resistant Staphylococcus aureus (MRSA) screening culture - 08:30 Methicillin resistant Staphylococcus aureus (MRSA) screening culture NEG NRG Automated blood complete blood count (hemogram) panel - 04/19/16 04:06 Blood leukocytes automated count (number/volume) 7.2 10*3/ uL 4.3-11.0 Blood erythrocytes automated count (number/volume) 3.67 10*6 /uL 4.35-5.85 Venous blood hemoglobin measurement (mass/volume) 12.3 g/dL 13.3-17.7 Blood hematocrit (volume fraction) 37 % 40-54 Automated erythrocyte mean corpuscular volume 100 [foz_us] 80-99 Automated erythrocyte mean corpuscular hemoglobin (mass per erythrocyte) 34 pg 25-34 Automated erythrocyte mean corpuscular hemoglobin concentration measurement ( mass/volume) 34 g/dL 32-36 Automated erythrocyte distribution width ratio 13.7 % 10.0-14.5 Automated blood platelet count (count/volume) 143 10*3/uL 130-400 Automated blood platelet mean volume measurement 9.6 [foz_us ] 7.4-10.4 Whole blood basic metabolic panel - 04/19/16 04:06 Serum or plasma sodium measurement (moles/volume) 138 mmol/ L 135-145 Serum or plasma potassium measurement (moles/volume) 3.9 mmol/L 3.6-5.0 Serum or plasma chloride measurement (moles/volume) 108 mmol /L 98-107 Carbon dioxide 23 mmol/L 21-32 Serum or plasma anion gap determination (moles/volume) 7 mmol/L 5-14 Serum or plasma urea nitrogen measurement (mass/volume) 13 mg/dL 7-18 Serum or plasma creatinine measurement (mass/volume) 1.05 mg /dL 0.60-1.30 Serum or plasma urea nitrogen/creatinine mass ratio 12 NRG Serum or plasma creatinine measurement with calculation of estimated glomerular filtration rate > NRG Serum or plasma glucose measurement (mass/volume) 121 mg/dL 70-105 Serum or plasma calcium measurement (mass/volume) 8.3 mg/dL 8.5-10.1 Complete blood count (CBC) with automated white blood cell (WBC) differential - 07/18/16 11:10 Blood leukocytes automated count (number/volume) 9.8 10*3/ uL 4.3-11.0 Blood erythrocytes automated count (number/volume) 4.22 10*6 /uL 4.35-5.85 Venous blood hemoglobin measurement (mass/volume) 14.3 g/dL 13.3-17.7 Blood hematocrit (volume fraction) 42 % 40-54 Automated erythrocyte mean corpuscular volume 99 [foz_us] 80-99 Automated erythrocyte mean corpuscular hemoglobin (mass per erythrocyte) 34 pg 25-34 Automated erythrocyte mean corpuscular hemoglobin concentration measurement ( mass/volume) 34 g/dL 32-36 Automated erythrocyte distribution width ratio 13.7 % 10.0-14.5 Automated blood platelet count (count/volume) 195 10*3/uL 130-400 Automated blood platelet mean volume measurement 9.5 [foz_us ] 7.4-10.4 Automated blood neutrophils/100 leukocytes 75 % 42-75 Automated blood lymphocytes/100 leukocytes 12 % 12-44 Blood monocytes/100 leukocytes 11 % 0-12 Automated blood eosinophils/100 leukocytes 2 % 0-10 Automated blood basophils/100 leukocytes 0 % 0-10 Blood neutrophils automated count (number/volume) 7.4 10*3 1.8-7.8 Blood lymphocytes automated count (number/volume) 1.2 10*3 1.0-4.0 Blood monocytes automated count (number/volume) 1.1 10*3 0.0-1.0 Automated eosinophil count 0.2 10*3/uL 0.0-0.3 Automated blood basophil count (count/volume) 0.0 10*3/uL 0.0-0.1 PT panel in platelet poor plasma by coagulation assay - 07/18/16 11:10 Prothrombin time (PT) in platelet poor plasma by coagulation assay 13.8 s 12.2-14.7 INR in platelet poor plasma or blood by coagulation assay 1.1 0.8-1.4 Activated partial thromboplastin time (aPTT) in platelet poor plasma bycoagulation assay - 07/18/16 11:10 Activated partial thromboplastin time (aPTT) in platelet poor plasma bycoagulation assay 27 s 24-35 Comprehensive metabolic panel - 07/18/16 11:10 Serum or plasma sodium measurement (moles/volume) 139 mmol/ L 135-145 Serum or plasma potassium measurement (moles/volume) 4.4 mmol/L 3.6-5.0 Serum or plasma chloride measurement (moles/volume) 107 mmol /L 98-107 Carbon dioxide 23 mmol/L 21-32 Serum or plasma anion gap determination (moles/volume) 9 mmol/L 5-14 Serum or plasma urea nitrogen measurement (mass/volume) 11 mg/dL 7-18 Serum or plasma creatinine measurement (mass/volume) 1.18 mg /dL 0.60-1.30 Serum or plasma urea nitrogen/creatinine mass ratio 9 NRG Serum or plasma creatinine measurement with calculation of estimated glomerular filtration rate 60 NRG Serum or plasma glucose measurement (mass/volume) 127 mg/dL 70-105 Serum or plasma calcium measurement (mass/volume) 9.5 mg/dL 8.5-10.1 Serum or plasma total bilirubin measurement (mass/volume) 0.7 mg/dL 0.1-1.0 Serum or plasma alkaline phosphatase measurement (enzymatic activity/volume) 116 U/L 40-136 Serum or plasma aspartate aminotransferase measurement (enzymatic activity/ volume) 18 U/L 5-34 Serum or plasma alanine aminotransferase measurement (enzymatic activity/volume ) 13 U/L 0-55 Serum or plasma protein measurement (mass/volume) 6.8 g/dL 6.4-8.2 Serum or plasma albumin measurement (mass/volume) 4.1 g/dL 3.2-4.5 Magnesium - 07/18/16 11:10 Magnesium 2.0 mg/dL 1.8-2.4 Serum or plasma troponin i.cardiac measurement (mass/volume) - 07/18/16 11:10 Serum or plasma troponin i.cardiac measurement (mass/volume) < ng/mL <0.30 Myoglobin, serum - 07/18/16 11:10 Myoglobin, serum 75.4 ng/mL 10.0-92.0 Fibrin D-dimer FEU measurement in platelet poor plasma (mass/volume) - 11:10 Fibrin D-dimer FEU measurement in platelet poor plasma (mass/volume) 0.98 ug/mL 0.00-0.49 Serum or plasma troponin i.cardiac measurement (mass/volume) - 07/18/16 15:47 Serum or plasma troponin i.cardiac measurement (mass/volume) < ng/mL <0.30 Encounters ACCT No. Visit Date/Time Discharge Status Pt. Type Provider Facility Loc./Unit Complaint [id number] 04/17/2016 07:52:00 2016 09:30:00 DIS Outpatient KAYLEY LAMBERT MD [facility] CATH CAD,HTN [id number] 01/12/2015 12:57:00 2014 23:59:59 CLS Outpatient LINDSAY SIMMS [facility] ONC [id number] 04/18/2014 15:32:00 2014 23:59:59 CLS Outpatient GÉNESIS MIRAMONTES DO [facility] RT SNORING EXCESSIVE DAYTIME SLEEPINESS HTN DYSPNEA [id number] 03/07/2014 08:23:00 2013 23:59:59 CLS Outpatient KAYLEY LAMBERT MD [facility] CARD CAD,KATELIN,HTN [id number] 03/02/2014 10:07:00 2013 23:59:59 CLS Outpatient KAYLEY LAMBERT MD [facility] CARD CAD,KATELIN,HTN [id number] 01/13/2014 14:18:00 2013 14:46:00 DIS Emergency MELIZA DELGADO [employer] [facility] ER FINGER LACERATION [id number] 01/12/2014 12:46:00 2013 23:59:59 CLS Outpatient ANTHONY CASTRO SHOE SALESMAN [facility] ONC [id number] 11/30/2013 10:27:00 2013 13:02:00 DIS Emergency RADHA MACKEY MD [facility] ER LIGHTHEADED/SYNCOPE [id number] 09/24/2013 14:00:00 2013 17:00:00 DIS Outpatient FESTUS AZUL [facility] REHAB L LEG AND THIGH PAIN [id number] 08/24/2013 08:58:00 2013 23:59:59 CLS Outpatient KAYLEY LAMBERT MD [facility] RAD CAD,HTN, [id number] 02/09/2013 11:36:00 2012 23:59:59 CLS Outpatient LIANA ARIAS [facility] RAD CAD DIZZINESS,HTN, [id number] 02/05/2013 09:06:00 2012 23:59:59 CLS Outpatient KAYLEY LAMBERT MD [facility] CARD CAD,DIZZINESS,HTN [id number] 01/11/2013 13:07:00 2012 23:59:59 CLS Outpatient LINDSAY SIMMS [facility] ONC [id number] 12/25/2012 07:30:00 2012 12:00:00 DIS Outpatient CASTROELO SANTIAGO DPM [facility] SDC [place] 3RD AND 4TH RIGHT [id number] 12/22/2012 09:51:00 2012 23:59:59 CLS Outpatient MATTHEW LIU, ELO P [facility] PREOP [place] 3RD AND 4TH RIGHT [id number] 08/21/2016 16:45:00 PEN Preadmit DEAN SHI APRN [facility] RT R06.00 DYSPNEA [id number] 08/14/2016 11:46:00 ACT Outpatient KAYLEY LAMBERT MD [facility] CARD I25.10 [id number] 07/18/2016 10:57:00 ACT Outpatient JANN YADAV MD [facility] ER CHEST PAIN [id number] 07/10/2016 11:13:00 ACT Outpatient KAYLEY LAMBERT MD [facility] CR STABLE ANGINA [id number] 02/13/2016 12:57:00 ACT Outpatient LINDSAY SIMMS [facility] ONC [id number] 01/15/2016 12:51:00 ACT Outpatient LINDSAY SIMMS [facility] ONC [id number] 11/22/2015 07:47:00 ACT Outpatient LIANA GONZALEZ [facility] CARD CAD,CAROTID STENOSIS, HTN [id number] 10/19/2015 08:41:00 ACT Outpatient LIANA GONZALEZ [facility] CARD CAD,CAROTID STENOSIS,HTN [id number] 06/06/2014 11:02:00 Document Registration [id number] 03/01/2014 09:33:00 Document Registration [id number] 03/01/2014 09:33:00 Document Registration [id number] 07/16/2012 13:47:00 Document Registration [id number] 05/28/2012 06:00:00 Document Registration [id number] 05/11/2012 12:00:00 Document Registration [id number] 01/13/2012 13:09:00 Document Registration [id number] 10/21/2011 12:30:00 Document Registration [id number] 01/14/2011 13:33:00 Document Registration [id number] 09/12/2010 10:10:00 Document Registration [id number] 12/14/2009 08:48:00 Document Registration [id number] 10/30/2009 07:03:00 Document Registration [id number] 03/15/2009 00:00:00 Document Registration [id number] 12/27/2008 12:52:00 Document Registration [id number] 12/14/2008 09:32:00 Document Registration
== END | disposition home or self-care (01) ==
LOC: EDUNIT# 10:55 → ER 10:57
DX: R07.89 Other chest pain (principal); R91.1 Solitary pulmonary nodule; M54.6 Pain in thoracic spine; F17.210 Nicotine dependence, cigarettes, uncomplicated; Z79.02 Long term (current) use of antithrombotics/antiplatelets; Z79.899 Other long term (current) drug therapy; Z95.1 Presence of aortocoronary bypass graft
CPT/HCPCS: 36415; 71010; 71275; 80053; 83735; 83874; 84484; 85025; 85379; 85610; 85730; 93005; 93041; 96372; 96374; 96375

== ENCOUNTER → 2016-08-14 | Outpatient (CLI) | payer MEDICARE, BC ==
[~2016-08-14] VITALS: Ht 182.9 cm; Wt 94.8 kg
[~2016-08-14] MED LIST changes: -ASPIRIN 81 MG CHEW (CHILDREN'S ASA) PO ONE; +CATHETER FLUSH 10 ML SYR IV PRN; -HYDROcodone/APAP 10 MG/325 MG (LORTAB) TAB PO STA; -IOHEXOL 350 MG/ML 150 ML (OMNIPAQUE 350) VIAL IV ONE; -KETOROLAC 30 MG/ML VIAL IVP STA; -NS 100 ML (IVPB) BAG IV ONE; -NS IV 500 ML 500 ML IV ONE; -ORPHENADRINE 60 MG/2 ML (NORFLEX) AMP IM STA; +REGADENOSON 0.4 MG/5 ML SYR (LEXISCAN) IV ONE; -morphine INJ 10 MG/ML 1ML (SYR OR VIAL) IVP STA
[2016-08-14 13:01] VITALS: BP 139/88
--- NOTE | 2016-08-15 09:57 | STRESS TEST ---
DATE OF SERVICE: 08/14/2016 PROCEDURE: Lexiscan Myoview stress test. REFERRING PHYSICIAN: Pepper Baeza MD Baseline heart rate is 90. Baseline blood pressure 158/98. Baseline EKG is sinus rhythm with no ischemic changes. SUMMARY: The patient was injected with 10.31 mCi of technetium-99 Myoview and the resting images were obtained. Then, the patient received 0.4 mg of Lexiscan, followed by 30.2 mCi of technetium-99 Myoview. Throughout the test there were no EKG changes. The resting and stress images were reviewed and compared in the short axis, horizontal long axis and vertical long axis views. Review of the images showed patchy uptake, no significant ischemia or infarction was seen. SSS is 4. SDS 4. TID value 1.04. On the gated images, the left ventricle appeared to be prominent with diffuse left ventricular hypokinesia, calculated ejection fraction is 41%. CONCLUSIONS: 1. The patient tolerated Lexiscan well. 2. No significant ischemia or infarction on SPECT images. 3. Prominent left ventricle with mild diffuse left ventricle hypokinesia, calculated ejection fraction 41%. Job ID: [id number] DocumentID: [id number] Dictated Date: 08/14/2016 16:47:23 Assisted Living Assistant Date: 08/15/2016 08:47:23 Dictated By: KAYLEY LAMBERT MD
== END ==
LOC: CARD 11:46
PROVIDERS: ATTEND Internal Medicine Cardiovascular Disease
DX: I25.10 Atherosclerotic heart disease of native coronary artery without angina pectoris (principal); I10 Essential (primary) hypertension; E78.2 Mixed hyperlipidemia; R06.00 Dyspnea, unspecified; E11.9 Type 2 diabetes mellitus without complications
CPT/HCPCS: 78452; 93017

== ENCOUNTER → 2016-08-21 | Outpatient (CLI) | payer MEDICARE, BC ==
[~2016-08-21] MED LIST changes: -CATHETER FLUSH 10 ML SYR IV PRN; -REGADENOSON 0.4 MG/5 ML SYR (LEXISCAN) IV ONE; +RT-ALBUTEROL SULF 2.5 MG/3 ML PRE-MIX VIAL IH ONE
== END ==
LOC: RT 15:52
PROVIDERS: ATTEND Nurse Practitioner Family
DX: R06.00 Dyspnea, unspecified (principal); R91.1 Solitary pulmonary nodule; Z72.0 Tobacco use
CPT/HCPCS: 94060; 94640; 94726; 94729

== ENCOUNTER 2016-09-18 11:28 | Outpatient (RCR) | payer MEDICARE, BC ==
[~2016-09-18 11:28] MED LIST changes: -RT-ALBUTEROL SULF 2.5 MG/3 ML PRE-MIX VIAL IH ONE
== END 2016-10-06 | disposition home or self-care (01) ==
LOC: CR 11:28
PROVIDERS: ATTEND Internal Medicine Cardiovascular Disease
DX: I20.8 Other forms of angina pectoris (principal)
CPT/HCPCS: 93798

== ENCOUNTER 2016-10-09 10:22 | Outpatient (RCR) | payer MEDICARE, BC | END 2016-10-18 11:00 | disposition home or self-care (01) | LOC: CR 10:22 | PROVIDERS: ATTEND Internal Medicine Cardiovascular Disease | DX: I20.8 Other forms of angina pectoris (principal) ==

== ENCOUNTER → 2016-11-25 | Outpatient (CLI) | payer MEDICARE, BC ==
[2016-11-25 09:09] LABS: BASOPHILS % (AUTO) 0 % (0-10); EOSINOPHILS # (AUTO) 0.2 10^3/uL (0.0-0.3); EOSINOPHILS % (AUTO) 3 % (0-10); LYMPHOCYTES # (AUTO) 1.7 X 10^3 (1.0-4.0); LYMPHOCYTES % (AUTO) 24 % (12-44); MEAN CORPUSCULAR HGB CONC 35 G/DL (32-36); MEAN CORPUSCULAR VOLUME 99 FL (80-99); MEAN PLATELET VOLUME 9.1 FL (7.4-10.4); MONOCYTES # (AUTO) 0.7 X 10^3 (0.0-1.0); MONOCYTES % (AUTO) 10 % (0-12); NEUTROPHILS # (AUTO) 4.5 X 10^3 (1.8-7.8); NEUTROPHILS % (AUTO) 63 % (42-75); PLATELET COUNT 182 10^3/uL (130-400); RED BLOOD COUNT 4.09 10^6/uL (4.35-5.85); RED CELL DISTRIBUTION WIDTH 14.5 % (10.0-14.5); WHITE BLOOD COUNT 7.1 10^3/uL (4.3-11.0)
[2016-11-25 09:13] LABS: MEAN CORPUSCULAR HEMOGLOBIN 34 PG (25-34)
[2016-11-25 10:03] LABS: ALBUMIN 4.1 GM/DL (3.2-4.5); BILIRUBIN,TOTAL 0.7 MG/DL (0.1-1.0); CALCIUM 9.4 MG/DL (8.5-10.1); CREATININE SERUM 1.44 MG/DL (0.60-1.30); POTASSIUM 4.3 MMOL/L (3.6-5.0); TOTAL PROTEIN 6.9 GM/DL (6.4-8.2)
== END ==
LOC: ONC 09:01
PROVIDERS: ATTEND Internal Medicine Hematology & Oncology
DX: Z08 Encounter for follow-up examination after completed treatment for malignant neoplasm (principal); Z85.820 Personal history of malignant melanoma of skin; F17.210 Nicotine dependence, cigarettes, uncomplicated; Z79.899 Other long term (current) drug therapy; R91.1 Solitary pulmonary nodule
CPT/HCPCS: 36415; 80053; 83615; 85025; 99213

== ENCOUNTER → 2016-12-06 | Outpatient (CLI) | payer MEDICARE, BC | LOC: CARD 13:41 | PROVIDERS: ATTEND Physician Assistant | DX: I25.10 Atherosclerotic heart disease of native coronary artery without angina pectoris (principal); I65.23 Occlusion and stenosis of bilateral carotid arteries; I10 Essential (primary) hypertension; E78.2 Mixed hyperlipidemia | CPT/HCPCS: 93306 ==

== ENCOUNTER → 2017-01-03 | Outpatient (CLI) | payer MEDICARE, BC ==
--- NOTE | 2017-01-03 12:40 | Diagnostic Imaging Report ---
PROCEDURE: CT chest without contrast. TECHNIQUE: Multiple contiguous axial images were obtained through the chest without the use of intravenous contrast. INDICATION: Followup lung nodule. COMPARISON: 07/18/2016 FINDINGS: Again seen is a 6 mm right middle lobe pulmonary nodule without change from 07/18/2016 exam. The lungs demonstrate mild fibrotic changes in the periphery of the lung in the upper, mid and lower lung zones without significant consolidation or mass. The heart size is normal. No pleural or pericardial effusion. There is no mediastinal mass. A mildly prominent nonspecific right paratracheal lymph node measuring 1.3 cm is seen in the right paratracheal region. There is a stent along the origin of the left subclavian artery extending into the lumen of the aortic arch. 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 Sections of the upper abdomen demonstrate no definite abnormality. IMPRESSION: 1. Stable 6 mm right middle lobe nodule. A followup study in 9-12 months is recommended to ensure further stability. 2. Stable peripheral fibrotic changes in the lungs. Dictated by: Dictated on workstation # [id number]
== END ==
LOC: RAD 10:01
PROVIDERS: ATTEND Nurse Practitioner Family
DX: R91.1 Solitary pulmonary nodule (principal)
CPT/HCPCS: 71250

== ENCOUNTER 2017-08-09 02:21 | Emergency (ER) | payer MEDICARE, BC ==
[~2017-08-09] VITALS: Ht 182.9 cm; Wt 94.8 kg
--- OUTSIDE RECORDS SUMMARY | 2017-08-09 02:30 | XMS REPORT | CCD ---
Author Author [facility] Organization [facility] Address [address] [place] [address] Phone Care Team Providers Care Fur Ironer Name Role Phone PP Unavailable CCM Unavailable Summary Purpose Interface Exchange Insurance Providers Payer name Policy type / Coverage type Covered alliance party ID Effective Begin Date Effective End Date WPS Medicare Part B Medicare Part B [id number] Unknown Unknown [facility] Medicare Part B [id number] Unknown Unknown Family history Mother Diagnosis Age At Onset Heart Attack Unknown Arthritis Unknown Dementia Unknown Father Diagnosis Age At Onset Hypertension Unknown Arthritis Unknown Heart Attack Unknown Social History Social History Element Codes Description Effective Dates Marital status Unknown Zoe 10/04/2015 Number of children Unknown 3 10/06/2014 Employment Unknown Retired 10/06/[address]: [id number] Current every day smoker 10/06/2014 Number of years using tobacco Unknown > 50 10/06/2014 Number of cigarettes/day Unknown 10 ( Half a pack) 10/06/2014 Allergies, Adverse Reactions, Alerts Allergies, Adverse Reactions, Alerts data not found Past Medical History Illness Codes Condition Status Onset Date Resolved Date Chronic pain syndrome ICD-9: 338.4 ICD-10: G89.4 Active 01/03/2016 Unknown Encounter for immunization ICD-9: V03.9 ICD-10: Z23 Active 01/03/2016 Unknown Essential (primary) hypertension ICD-9: 401.1 ICD-10: I10 Active 07/02/2016 Unknown Iliotibial band syndrome, right leg ICD-9: 728.89 ICD-10: M76.31 Active 02/04/2017 Unknown Low back pain ICD-9: 724.2 ICD-10: M54.5 Active 08/29/2015 Unknown Encounter for general adult medical examination with abnormal findings ICD-9: V70.0 ICD-10: Z00.01 Active 10/18/2016 Unknown Pain in left knee ICD- 9: 719.46 ICD-10: M25.562 Active 10/03/2016 Unknown Pain in right knee ICD -9: 719.46 ICD-10: M25.561 Active 10/03/2016 Unknown 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 Active 07/02/2016 Unknown Mixed hyperlipidemia ICD-9: 272.2 ICD-10: E78.2 Active 01/03/2016 Unknown Essential (primary) hypertension ICD-9: 401.9 ICD-10: I10 Active 10/05/2014 Unknown Gastro-esophageal reflux disease without esophagitis ICD-9: 530.81 ICD-10: K21.9 Active 10/05/2014 Unknown Tobacco use ICD-9: 305.1 ICD-10: Z72.0 Active 01/03/2016 Unknown Epigastric pain ICD-9 : 789.06 ICD-10: R10.13 Active 03/20/2015 Unknown Sciatica Unknown Active 01/05/2015 Unknown SCIATICA ICD-9: 724.3 Active 01/04/2015 Unknown VACCIN FOR INFLUENZA ICD-9: V04.81 Active 01/04/2015 Unknown Hypertension Unknown Active 10/06/2014 Unknown Hypothryroidism Unknown Active 10/06/2014 Unknown ESSENTIAL HYPERTENSION ICD-9: 401.9 Active 10/05/2014 Unknown Problems Condition Codes Effective Dates Condition Status Chronic pain syndrome ICD-9: 338.4 ICD-10: G89.4 01/03/2016 Active Encounter for immunization ICD-9: V03.9 ICD-10: Z23 01/03/2016 Active Essential (primary) hypertension ICD-9: 401.1 ICD-10: I10 07/02/2016 Active Iliotibial band syndrome, right leg ICD-9: 728.89 ICD-10: M76.31 02/04/2017 Active Low back pain ICD-9: 724.2 ICD-10: M54.5 08/29/2015 Active Encounter for general adult medical examination with abnormal findings ICD-9: V70.0 ICD-10: Z00.01 10/18/2016 Active Pain in left knee ICD- 9: 719.46 ICD-10: M25.562 10/03/2016 Active Pain in right knee ICD -9: 719.46 ICD-10: M25.561 10/03/2016 Active 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 07/02/2016 Active Mixed hyperlipidemia ICD-9: 272.2 ICD-10: E78.2 01/03/2016 Active Essential (primary) hypertension ICD-9: 401.9 ICD-10: I10 10/05/2014 Active Gastro-esophageal reflux disease without esophagitis ICD-9: 530.81 ICD-10: K21.9 10/05/2014 Active Tobacco use ICD-9: 305.1 ICD-10: Z72.0 01/03/2016 Active Epigastric pain ICD-9 : 789.06 ICD-10: R10.13 03/20/2015 Active Sciatica Unknown 01/05/2015 Active SCIATICA ICD-9: 724.3 01/04/2015 Active VACCIN FOR INFLUENZA ICD-9: V04.81 01/04/2015 Active Hypertension Unknown 10/06/2014 Active Hypothryroidism Unknown 10/06/2014 Active ESSENTIAL HYPERTENSION ICD-9: 401.9 10/05/2014 Active Medications Medication Codes Instructions Start Date Stop Date Status Fill Instructions levothyroxine 50 mcg tablet RxNorm: 535712 1 TABLET(S) PO DAILY 05/05/2017 01/29/2018 Active metoprolol succinate ER 25 mg tablet,extended release 24 hr RxNorm: 670109 1 TABLET(S) PO DAILY 04/08/2017 01/02/2018 Active hydrocodone 10 mg-acetaminophen 325 mg tablet RxNorm: 286025 1-2 Tablet(s) PO Q4 PRN as needed for pain 04/04/20172017 Inactive hydrocodone 10 mg-acetaminophen 325 mg tablet RxNorm: 428510 1-2 Tablet(s) PO Q4 PRN as needed for pain 03/03/20172016 Inactive hydrocodone 10 mg-acetaminophen 325 mg tablet RxNorm: 172060 1-2 Tablet(s) PO Q4 PRN as needed for pain 01/30/20172016 Inactive hydrocodone 10 mg-acetaminophen 325 mg tablet RxNorm: 538501 1-2 Tablet(s) PO Q4 PRN as needed for pain 01/01/20172016 Inactive hydrocodone 10 mg-acetaminophen 325 mg tablet RxNorm: 484564 1-2 Tablet(s) PO Q4 PRN as needed for pain 12/02/20162016 Inactive hydrocodone 10 mg-acetaminophen 325 mg tablet RxNorm: 765912 1-2 Tablet(s) PO Q4 PRN as needed for pain 10/31/20162016 Inactive hydrocodone 10 mg-acetaminophen 325 mg tablet RxNorm: 282187 1-2 Tablet(s) PO Q4 PRN as needed for pain 10/03/20162016 Inactive pantoprazole 40 mg tablet,delayed release RxNorm: 993827 1 Tablet(s) PO daily 09/02/2016 08/27/2017 Active hydrocodone 10 mg-acetaminophen 325 mg tablet RxNorm: 902594 1-2 Tablet(s) PO Q4 PRN as needed for pain 08/30/20162016 Inactive pantoprazole 40 mg tablet,delayed release RxNorm: 444072 1 Tablet(s) PO daily 08/19/2016 09/01/2016 Inactive doxazosin 4 mg tablet RxNorm: 801405 1 TABLET(S) PO DAILY 201608/06/2017 Active levothyroxine 50 mcg tablet RxNorm: 281250 1 TABLET(S) PO DAILY 08/12/2016 05/04/2017 Inactive metoprolol succinate ER 25 mg tablet,extended release 24 hr RxNorm: 970003 1 TABLET(S) PO DAILY 07/08/2016 04/03/2017 Inactive hydrocodone 10 mg-acetaminophen 325 mg tablet RxNorm: 998711 1-2 Tablet(s) PO Q4 PRN as needed for pain 07/02/20162016 Inactive hydrocodone 10 mg-acetaminophen 325 mg tablet RxNorm: 980339 1-2 Tablet(s) PO Q4 PRN as needed for pain 06/05/20162016 Inactive allopurinol 100 mg tablet RxNorm: 281834 3 Tablet(s) PO daily - 2 in the AM and 1 at HS 05/06/2016 04/30/2017 Inactive hydrocodone 10 mg-acetaminophen 325 mg tablet RxNorm: 537690 1-2 Tablet(s) PO Q4 PRN as needed for pain 05/06/20162016 Inactive hydrocodone 10 mg-acetaminophen 325 mg tablet RxNorm: 500829 1-2 Tablet(s) PO Q4 PRN as needed for pain 05/06/20162016 Inactive hydrocodone 10 mg-acetaminophen 325 mg tablet RxNorm: 883908 1-2 Tablet(s) PO Q4 PRN as needed for pain 03/04/20162016 Inactive hydrocodone 10 mg-acetaminophen 325 mg tablet RxNorm: 018286 1-2 Tablet(s) PO Q4 PRN as needed for pain 02/01/20162015 Inactive atorvastatin 40 mg tablet RxNorm: 392659 1 Tablet(s) PO daily 01/04/2016 12/28/2016 Inactive lisinopril 10 mg tablet RxNorm: 571585 1 Tablet(s) PO daily 12/28/2016 Inactive omeprazole 20 mg capsule,delayed release RxNorm: 188787 1 Capsule(s) PO BID 01/04/2016 07/01/2016 Inactive meloxicam 15 mg tablet RxNorm: 883911 TAKE 1 TABLET BY MOUTH EVERY DAY 10/17/2015 07/01/2016 Inactive levothyroxine 50 mcg tablet RxNorm: 199954 1 TABLET(S) PO DAILY 10/17/2015 07/12/2016 Inactive hydrocodone 10 mg-acetaminophen 325 mg tablet RxNorm: 893644 1-2 Tablet(s) PO Q4 PRN as needed for pain 10/10/20152015 Inactive Lipitor 40 mg tablet RxNorm: 157140 1 Tablet(s) PO daily 201501/03/2016 Inactive MS Contin 60 mg tablet,extended release RxNorm: 408447 1 Tablet(s) PO BID 08/30/2015 10/03/2015 Inactive hydrocodone 10 mg-acetaminophen 325 mg tablet RxNorm: 765469 1-2 Tablet(s) PO Q4 PRN as needed for pain 08/30/20152015 Inactive doxazosin 4 mg tablet RxNorm: 949177 1 Tablet(s) PO daily 201507/26/2016 Inactive OxyContin 20 mg tablet,crush resistant,extended release RxNorm: 4801254 1 Tablet(s ) PO BID 08/02/2015 08/29/2015 Inactive meloxicam 15 mg tablet RxNorm: 245524 TAKE 1 TABLET BY MOUTH EVERY DAY 07/25/2015 10/16/2015 Inactive hydrocodone 10 mg-acetaminophen 325 mg tablet RxNorm: 810376 1 Tablet(s) PO Q4 PRN as needed for pain 07/13/20152015 Inactive levothyroxine 50 mcg tablet RxNorm: 974506 1 Tablet(s) PO daily 07/13/2015 10/10/2015 Inactive metoprolol succinate ER 25 mg tablet,extended release 24 hr RxNorm: 239635 1 Tablet(s) PO daily 06/30/2015 06/23/2016 Inactive hydrocodone 10 mg-acetaminophen 325 mg tablet RxNorm: 305850 1 Tablet(s) PO Q4 PRN as needed for pain 04/21/20152015 Inactive hydrocodone 10 mg-acetaminophen 325 mg tablet RxNorm: 355552 1 Tablet(s) PO Q4 PRN as needed for pain 03/30/20152015 Inactive allopurinol 100 mg tablet RxNorm: 105143 3 Tablet(s) PO 2 at am 1 at hs UD 02/08/2015 02/02/2016 Inactive hydrocodone 10 mg-acetaminophen 325 mg tablet RxNorm: 117829 1 Tablet(s) PO Q4 PRN 01/25/2015 03/29/2015 Inactive omeprazole 20 mg capsule,delayed release RxNorm: 732510 1 Capsule(s) PO BID 1at am 1at pm 01/05/2015 12/30/2015 Inactive hydrocodone 10 mg-acetaminophen 325 mg tablet RxNorm: 188914 1 Tablet(s) PO Q4 PRN 01/05/2015 01/24/2015 Inactive Voltaren 1 % topical gel RxNorm: 738092 4 Gram(s) TOP QID 10/0612/04/2014 Inactive Multivitamin & Mineral Formula oral RxNorm: oral No Start Date Active potassium 99 mg tablet RxNorm: 1 Tablet(s) PO daily No Start Date Active B qjurzri-[id number]-iptxlxq tablet RxNorm: 1 Tablet(s) PO daily No Start Date Active clopidogrel 75 mg tablet RxNorm: 697585 1 Tablet(s) PO daily No Start Date Active magnesium oxide 400 mg tablet RxNorm: 202405 1 Tablet(s) PO daily No Start Date Active aspirin 81 mg tablet RxNorm: 012382 1 Tablet(s) PO daily No Start Date Active omega 3 183.3 mg-dha 75 mg-epa 91.6 mg-fish oil 306 mg capsule RxNorm: 1 Capsule(s) PO daily No Start Date Active Calcium + D 600 mg (1,500)-200 unit tablet RxNorm: 796288 1 Tablet(s) PO daily No Start Date Active Ranexa 500 mg tablet,extended release RxNorm: 279416 1 Tablet(s) PO BID No Start Date Active allopurinol 100 mg tablet RxNorm: 151186 Tablet(s) PO 2 at am 1 at hs No Start Date 02/07/2015 Inactive pantoprazole 40 mg tablet,delayed release RxNorm: 767121 1 Tablet(s) PO daily No Start Date 08/18/2016 Inactive meloxicam 15 mg tablet RxNorm: 233871 1 Tablet(s) PO daily No Start Date 07/24/2015 Inactive doxazosin 4 mg tablet RxNorm: 725550 1 Tablet(s) PO daily No Start Date 08/01/2015 Inactive hydrocodone 7.5 mg-acetaminophen 325 mg tablet RxNorm: 940205 1 Tablet(s) PO QID as needed for pain No Start Date 2014 Inactive Vitamin D3 5,000 unit tablet RxNorm: 396199 1 Tablet(s) PO daily No Start Date 07/01/2016 Inactive B-12 Plus 1,000 mcg/mL injection solution RxNorm: 568238 1 Milliliter(s) Inj daily No Start Date 07/01/2016 Inactive magnesium citrate RxNorm: 6574 miscellaneous No Start Date 07/02/2016 Inactive Lipitor 20 mg tablet RxNorm: 994775 1 Tablet(s) PO daily No Start Date 08/29/2015 Inactive metoprolol succinate ER 25 mg tablet,extended release 24 hr RxNorm: 978964 1 Tablet(s) PO daily No Start Date 2015 Inactive lisinopril 10 mg tablet RxNorm: 571104 1 Tablet(s) PO daily No Start Date 01/03/2016 Inactive levothyroxine 50 mcg tablet RxNorm: 571366 1 Tablet(s) PO daily No Start Date 07/12/2015 Inactive omeprazole 20 mg capsule,delayed release RxNorm: 650185 Capsule(s) PO daily 1at am 1at pm No Start Date 01/04/2015 Inactive Medication Administered No Medication Administered data Immunizations Vaccine Codes Date Status Influenza CVX: 141 02/04/2017 completed Influenza CVX: 141 01/04/2016 completed Pneumococcal (Adult) CVX: 133 01/04/2016 completed Influenza CVX: 141 01/05/2015 completed Influenza CVX: 141 11/12/2013 completed Pneumococcal CVX: 33 11/12/2013 completed Assessments Condition Codes Effective Dates Chronic pain syndrome ICD-10: G89.4 ICD-9: 338.4 02/04/2017 Essential (primary) hypertension ICD-10: I10 ICD-9: 401.1 02/04/2017 Encounter for immunization ICD-10: Z23 ICD-9: V03.9 02/04/2017 Iliotibial band syndrome, right leg ICD-10: M76.31 ICD-9: 728.89 02/04/2017 Low back pain ICD-10: M54.5 ICD-9: 724.2 02/04/2017 Encounter for general adult medical examination with abnormal findings ICD-10: Z00.01 ICD-9: V70.0 10/18/2016 Pain in right knee ICD-10: M25.561 ICD-9: 719.46 10/03/2016 Pain in left knee ICD-10: M25.562 ICD-9: 719.46 10/03/2016 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 ICD-9: 244.8 07/02/2016 Mixed hyperlipidemia ICD-10: E78.2 ICD-9: 272.2 07/02/2016 Essential (primary) hypertension ICD-10: I10 ICD-9: 401.9 04/04/2016 Tobacco use ICD-10: Z72.0 ICD-9: 305.1 04/04/2016 Gastro-esophageal reflux disease without esophagitis ICD-10 : K21.9 ICD-9: 530.81 01/04/2016 Epigastric pain ICD-10: R10.13 ICD-9: 789.06 03/21/2015 VACCIN FOR INFLUENZA ICD-9: V04.81 2014 ESSENTIAL HYPERTENSION ICD-9: 401.9 01/05 SCIATICA ICD-9: 724.3 01/05/2015 ESOPHAGEAL REFLUX ICD-9: 530.81 2014 HYPOTHYROIDISM ICD-9: 244.9 10/06/2014 Reason For Visit Reason For Visit Effective Dates Notes back pain 02/04/2017 Annual Medicare Wellness Exam 10/18/2016 back pain 10/03/2016 back pain 07/02/2016 back pain 04/04/2016 back pain 01/04/2016 back pain 10/04/2015 back pain 08/30/2015 back pain 08/02/2015 back pain 04/21/2015 chest pain/pressure 03/21/2015 joint complaint 01/05/2015 joint complaint 10/06/2014 Results Observation Observation Code Item Item Code Result Date Lipid Ord30 CHOL 164 mg/dL 03/17/2017 Lipid Ord30 HDL 43.0 mg/dl 03/17/2017 Lipid Ord30 TRIG 144 mg/dL 03/17/2017 Lipid Ord30 LDL 92 mg/dL 03/17/2017 Lipid Ord30 C/HDL 3.8 Ratio 03/17/2017 Hepatic Znf838 ALBUMIN 4.4 g/dL 03/17/2017 Hepatic Xpe490 TPRO 7.3 g/dL 03/17/2017 Hepatic Bay642 GLOB 2.9 g/dL 03/17/2017 Hepatic Qxq776 A/G Ratio 1.5 Ratio 03/17/2017 Hepatic Feb731 ALK PHOS 125 U/L 03/17/2017 Hepatic Myv423 ALT(SGPT) 15 U/L 03/17/2017 Hepatic Eid158 AST(SGOT) 22 U/L 03/17/2017 Hepatic Yrx262 BILI T 0.7 mg/dL 03/17/2017 Hepatic Vng972 BILI D 0.1 mg/dL 03/17/2017 Hepatic Uqd361 BILI I 0.6 mg/dL 03/17/2017 Tsh Ord6 hTSH II 2.89 uIU/mL 01/13/2017 Comp Metabolic Qtr424 NA 139 mEq/L 01/13/2017 Comp Metabolic Qrz445 K 4.4 mEq/L 01/13/2017 Comp Metabolic Ats778 CL 105 mEq/L 01/13/2017 Comp Metabolic Oub748 CO2 29.0 mEq/L 01/13/2017 Comp Metabolic Aox552 ANION GAP 9 01/13/2017 Comp Metabolic Gyk198 GLUCOSE 105 mg/dL 01/13/2017 Comp Metabolic Zsa590 Creat 1.1 mg/dL 01/13/2017 Comp Metabolic Kla938 eGFR 68 ml/min/1.73m2 01/13/2017 Comp Metabolic Xbt094 BUN 12 mg/dL 01/13/2017 Comp Metabolic Zje160 B/C Ratio 10.7 Ratio 01/13/2017 Comp Metabolic Thr707 CALCIUM 9.2 mg/dL 01/13/2017 Comp Metabolic Iwl423 ALK PHOS 90 U/L 01/13/2017 Comp Metabolic Cag434 AST(SGOT) 18 U/L 01/13/2017 Comp Metabolic Wqb590 ALT(SGPT) 12 U/L 01/13/2017 Comp Metabolic Bry084 BILI T 0.5 mg/dL 01/13/2017 Comp Metabolic Drk665 ALBUMIN 4.1 g/dL 01/13/2017 Comp Metabolic Fjw460 TPRO 6.4 g/dL 01/13/2017 Comp Metabolic Pcf438 GLOB 2.3 g/dL 01/13/2017 Comp Metabolic Ewb725 A/G Ratio 1.8 Ratio 01/13/2017 Comp Metabolic Uql951 Osmo 278 mOsmo 01/13/2017 Lipid Ord30 CHOL 131 mg/dL 01/13/2017 Lipid Ord30 HDL 35.0 mg/dl 01/13/2017 Lipid Ord30 TRIG 146 mg/dL 01/13/2017 Lipid Ord30 LDL 67 mg/dL 01/13/2017 Lipid Ord30 C/HDL 3.7 Ratio 01/13/2017 Cbc With Differential Ord2 WBC 7.05 K/ul 01/13/2017 Cbc With Differential Ord2 RBC 3.88 M/ul 01/13/2017 Cbc With Differential Ord2 HGB 13.8 g/dl 01/13/2017 Cbc With Differential Ord2 HCT 40.4 % 01/13/2017 Cbc With Differential Ord2 Neut% 67.4 % 01/13/2017 Cbc With Differential Ord2 Lymph% 18.4 % 01/13/2017 Cbc With Differential Ord2 MCV 104.1 fl 01/13/2017 Cbc With Differential Ord2 Door% 10.5 % 01/13/2017 Cbc With Differential Ord2 MCH 35.6 pg 01/13/2017 Cbc With Differential Ord2 MCHC 34.2 pg 01/13/2017 Cbc With Differential Ord2 Eos% 3.4 % 01/13/2017 Cbc With Differential Ord2 PLT 188 K/ul 01/13/2017 Cbc With Differential Ord2 Baso% 0.3 % 01/13/2017 Cbc With Differential Ord2 RDW 14.3 % 01/13/2017 Cbc With Differential Ord2 Neut ABS# 4.75 K/ul 01/13/2017 Cbc With Differential Ord2 Lymph ABS# 1.30 K/ul 01/13/2017 Cbc With Differential Ord2 Door ABS# 0.7 K/ul 01/13/2017 Cbc With Differential Ord2 Eos ABS# 0.2 K/ul 01/13/2017 Cbc With Differential Ord2 Baso ABS# 0.0 K/ul 01/13/2017 Total Psa Ord10 PSA 0.02 ng/mL 01/13/2017 Vitamin D 25 Oh Epn3638 VITAMIN D, 25 HYDROXY 65.24 ng/mL Tsh Ord6 hTSH II 1.32 uIU/mL 10/20/2014 Comp Metabolic Zqs045 NA 138 mEq/L 10/20/2014 Comp Metabolic Qwf378 K 4.4 mEq/L 10/20/2014 Comp Metabolic Yxj874 CL 106 mEq/L 10/20/2014 Comp Metabolic Dif680 CO2 28.0 mEq/L 10/20/2014 Comp Metabolic Xsa163 ANION GAP 8 10/20/2014 Comp Metabolic Xmi548 GLUCOSE 98 mg/dL 10/20/2014 Comp Metabolic Zsv548 Creat 1.0 mg/dL 10/20/2014 Comp Metabolic Tri819 eGFR 74 ml/min/1.73m2 10/20/2014 Comp Metabolic Uzc736 BUN 14 mg/dL 10/20/2014 Comp Metabolic Wsa089 B/C Ratio 13.5 Ratio 10/20/2014 Comp Metabolic Ysp583 CALCIUM 9.4 mg/dL 10/20/2014 Comp Metabolic Snj347 ALK PHOS 125 U/L 10/20/2014 Comp Metabolic Oiy144 AST(SGOT) 22 U/L 10/20/2014 Comp Metabolic Bji528 ALT(SGPT) 20 U/L 10/20/2014 Comp Metabolic Xoi584 BILI T 0.5 mg/dL 10/20/2014 Comp Metabolic Lzq111 ALBUMIN 4.4 g/dL 10/20/2014 Comp Metabolic Cvo415 TPRO 6.7 g/dL 10/20/2014 Comp Metabolic Pey202 GLOB 2.3 g/dL 10/20/2014 Comp Metabolic Pqq283 A/G Ratio 1.9 Ratio 10/20/2014 Comp Metabolic Mfj854 Osmo 276 mOsmo 10/20/2014 Cbc With Differential Ord2 WBC 6.1 K/uL 10/20/2014 Cbc With Differential Ord2 LYM 1.7 K/uL 10/20/2014 Cbc With Differential Ord2 LYM% 28.0 % 10/20/2014 Cbc With Differential Ord2 NEUT/GRAN 3.9 K/uL 10/20/2014 Cbc With Differential Ord2 NEUT/GRAN % 64.3 % 10/20/2014 Cbc With Differential Ord2 MID 0.5 K/uL 10/20/2014 Cbc With Differential Ord2 MID% 7.7 % 10/20/2014 Cbc With Differential Ord2 RBC 4.12 M/uL 10/20/2014 Cbc With Differential Ord2 HGB 14.2 g/dL 10/20/2014 Cbc With Differential Ord2 HCT 42.0 % 10/20/2014 Cbc With Differential Ord2 MCV 102 fL 10/20/2014 Cbc With Differential Ord2 MCH 35 pg 10/20/2014 Cbc With Differential Ord2 MCHC 34 g/dL 10/20/2014 Cbc With Differential Ord2 PLT 180 K/uL 10/20/2014 Cbc With Differential Ord2 RDW 14.9 % 10/20/2014 Lipid Ord30 CHOL 121 mg/dL 10/20/2014 Lipid Ord30 HDL 32.0 mg/dl 10/20/2014 Lipid Ord30 TRIG 121 mg/dL 10/20/2014 Lipid Ord30 LDL 65 mg/dL 10/20/2014 Lipid Ord30 C/HDL 3.8 Ratio 10/20/2014 Review of Systems System Result Effective Dates Constitutional No recent illness 2016 Constitutional No anorexia 02/04/2017 Constitutional No night sweats 2016 Constitutional No chills 02/04/2017 Constitutional No diaphoresis 02/04/2017 Constitutional No fatigue 02/04/2017 Constitutional No fever 02/04/2017 Constitutional No insomnia 02/04/2017 Constitutional No malaise 02/04/2017 Eyes No eye erythema 02/04/2017 Ears/Nose/Throat/Neck No dizziness 2016 Ears/Nose/Throat/Neck No headache 2016 Ears/Nose/Throat/Neck No nasal allergies 02/04/2017 Ears/Nose/Throat/Neck No nasal discharge 02/04/2017 Cardiovascular No chest pain/pressure Cardiovascular No dyspnea 02/04/2017 Cardiovascular No edema 02/04/2017 Respiratory No productive sputum 2016 Respiratory cigarette smoking 02/04/2017 Respiratory No cough 02/04/2017 Gastrointestinal No abdominal pain 2016 Gastrointestinal No constipation 2016 Gastrointestinal No diarrhea 02/04/2017 Genitourinary/Nephrology No dysuria 02/04 Musculoskeletal sciatica 02/04/2017 Dermatologic No rash 02/04/2017 Neurologic No alteration of consciousness 02/04/2017 Psychiatric No anxiety 02/04/2017 Psychiatric No depression 02/04/2017 Musculoskeletal stiffness 02/04/2017 Musculoskeletal arthralgia(s) 02/04/2017 Musculoskeletal back pain 02/04/2017 Musculoskeletal muscle weakness 2016 Constitutional No recent illness 2016 Constitutional No chills 10/18/2016 Constitutional No diaphoresis 10/18/2016 Constitutional No fever 10/18/2016 Eyes No eye erythema 10/18/2016 Ears/Nose/Throat/Neck No nasal allergies 10/18/2016 Ears/Nose/Throat/Neck No nasal discharge 10/18/2016 Cardiovascular No chest pain/pressure 10/2016 Respiratory No dyspnea 10/18/2016 Neurologic No alteration of consciousness 10/18/2016 Neurologic No mental status change 2016 Constitutional No recent illness 2016 Constitutional No anorexia 10/03/2016 Constitutional No night sweats 2016 Constitutional No chills 10/03/2016 Constitutional No diaphoresis 10/03/2016 Constitutional fatigue 10/03/2016 Constitutional No fever 10/03/2016 Constitutional No insomnia 10/03/2016 Constitutional No malaise 10/03/2016 Eyes No eye discharge 10/03/2016 Eyes No eye erythema 10/03/2016 Ears/Nose/Throat/Neck No dizziness 2016 Ears/Nose/Throat/Neck No headache 2016 Ears/Nose/Throat/Neck No nasal allergies 10/03/2016 Ears/Nose/Throat/Neck No nasal discharge 10/03/2016 Cardiovascular No chest pain/pressure Cardiovascular No dyspnea 10/03/2016 Cardiovascular No edema 10/03/2016 Cardiovascular hypertension 10/03/2016 Respiratory No productive sputum 2016 Respiratory cigarette smoking 10/03/2016 Respiratory No cough 10/03/2016 Gastrointestinal No abdominal pain 2016 Gastrointestinal No constipation 2016 Gastrointestinal No diarrhea 10/03/2016 Gastrointestinal gastroesophageal reflux 10/03/2016 Genitourinary/Nephrology No dysuria 10/03 Musculoskeletal stiffness 10/03/2016 Musculoskeletal back pain 10/03/2016 Musculoskeletal sciatica 10/03/2016 Dermatologic No rash 10/03/2016 Neurologic No alteration of consciousness 10/03/2016 Psychiatric No anxiety 10/03/2016 Psychiatric No depression 10/03/2016 Constitutional No recent illness 2016 Constitutional No anorexia 07/02/2016 Constitutional No night sweats 2016 Constitutional No chills 07/02/2016 Constitutional No diaphoresis 07/02/2016 Constitutional No fatigue 07/02/2016 Constitutional No fever 07/02/2016 Constitutional No insomnia 07/02/2016 Constitutional No malaise 07/02/2016 Eyes No eye discharge 07/02/2016 Eyes No eye erythema 07/02/2016 Ears/Nose/Throat/Neck No dizziness 2016 Ears/Nose/Throat/Neck No headache 2016 Ears/Nose/Throat/Neck No nasal allergies 07/02/2016 Ears/Nose/Throat/Neck No nasal discharge 07/02/2016 Cardiovascular No chest pain/pressure Cardiovascular No dyspnea 07/02/2016 Cardiovascular No edema 07/02/2016 Respiratory No productive sputum 2016 Respiratory No cough 07/02/2016 Gastrointestinal No abdominal pain 2016 Gastrointestinal No constipation 2016 Gastrointestinal No diarrhea 07/02/2016 Genitourinary/Nephrology No dysuria 07/02 Musculoskeletal sciatica 07/02/2016 Dermatologic No rash 07/02/2016 Neurologic No alteration of consciousness 07/02/2016 Respiratory cigarette smoking 07/02/2016 Psychiatric No anxiety 07/02/2016 Psychiatric No depression 07/02/2016 Constitutional No recent illness 2015 Constitutional No anorexia 04/04/2016 Constitutional No night sweats 2015 Constitutional No chills 04/04/2016 Constitutional No diaphoresis 04/04/2016 Constitutional No fatigue 04/04/2016 Constitutional No fever 04/04/2016 Constitutional No insomnia 04/04/2016 Constitutional No malaise 04/04/2016 Eyes No eye discharge 04/04/2016 Eyes No eye erythema 04/04/2016 Ears/Nose/Throat/Neck No dizziness 2015 Ears/Nose/Throat/Neck No headache 2015 Ears/Nose/Throat/Neck No nasal allergies 04/04/2016 Ears/Nose/Throat/Neck No nasal discharge 04/04/2016 Cardiovascular No chest pain/pressure Cardiovascular No dyspnea 04/04/2016 Cardiovascular No edema 04/04/2016 Cardiovascular hypertension 04/04/2016 Respiratory No productive sputum 2015 Respiratory cigarette smoking 04/04/2016 Respiratory No cough 04/04/2016 Gastrointestinal No abdominal pain 2015 Gastrointestinal No constipation 2015 Gastrointestinal No diarrhea 04/04/2016 Gastrointestinal gastroesophageal reflux 04/04/2016 Genitourinary/Nephrology No dysuria 04/04 Musculoskeletal stiffness 04/04/2016 Musculoskeletal back pain 04/04/2016 Musculoskeletal sciatica 04/04/2016 Dermatologic No rash 04/04/2016 Neurologic No alteration of consciousness 04/04/2016 Psychiatric No anxiety 04/04/2016 Psychiatric No depression 04/04/2016 Constitutional No recent illness 2015 Constitutional No anorexia 01/04/2016 Constitutional No night sweats 2015 Constitutional No chills 01/04/2016 Constitutional No diaphoresis 01/04/2016 Constitutional No fatigue 01/04/2016 Constitutional No fever 01/04/2016 Constitutional No insomnia 01/04/2016 Constitutional No malaise 01/04/2016 Eyes No eye discharge 01/04/2016 Eyes No eye erythema 01/04/2016 Ears/Nose/Throat/Neck No dizziness 2015 Ears/Nose/Throat/Neck No headache 2015 Ears/Nose/Throat/Neck No nasal allergies 01/04/2016 Ears/Nose/Throat/Neck No nasal discharge 01/04/2016 Cardiovascular No chest pain/pressure Cardiovascular No dyspnea 01/04/2016 Cardiovascular No edema 01/04/2016 Respiratory No productive sputum 2015 Respiratory No cough 01/04/2016 Gastrointestinal No abdominal pain 2015 Gastrointestinal No constipation 2015 Gastrointestinal No diarrhea 01/04/2016 Genitourinary/Nephrology No dysuria 01/03 Musculoskeletal sciatica 01/04/2016 Dermatologic No rash 01/04/2016 Neurologic No alteration of consciousness 01/04/2016 Psychiatric No anxiety 01/04/2016 Psychiatric No depression 01/04/2016 Gastrointestinal gastroesophageal reflux 01/04/2016 Respiratory cigarette smoking 01/04/2016 Cardiovascular hypertension 01/04/2016 Musculoskeletal stiffness 01/04/2016 Musculoskeletal back pain 01/04/2016 Constitutional No recent illness 2015 Constitutional No anorexia 10/04/2015 Constitutional No night sweats 2015 Constitutional No chills 10/04/2015 Constitutional No diaphoresis 10/04/2015 Constitutional No fatigue 10/04/2015 Constitutional No fever 10/04/2015 Constitutional No insomnia 10/04/2015 Constitutional No malaise 10/04/2015 Eyes No eye discharge 10/04/2015 Eyes No eye erythema 10/04/2015 Ears/Nose/Throat/Neck No dizziness 2015 Ears/Nose/Throat/Neck No headache 2015 Ears/Nose/Throat/Neck No nasal allergies 10/04/2015 Ears/Nose/Throat/Neck No nasal discharge 10/04/2015 Cardiovascular No chest pain/pressure Cardiovascular No dyspnea 10/04/2015 Cardiovascular No edema 10/04/2015 Respiratory No productive sputum 2015 Respiratory No cough 10/04/2015 Gastrointestinal No abdominal pain 2015 Gastrointestinal No constipation 2015 Gastrointestinal No diarrhea 10/04/2015 Genitourinary/Nephrology No dysuria 10/03 Musculoskeletal sciatica 10/04/2015 Dermatologic No rash 10/04/2015 Neurologic No alteration of consciousness 10/04/2015 Constitutional No recent illness 2015 Constitutional No anorexia 08/30/2015 Constitutional No night sweats 2015 Constitutional No chills 08/30/2015 Constitutional No diaphoresis 08/30/2015 Constitutional No fatigue 08/30/2015 Constitutional No fever 08/30/2015 Constitutional No insomnia 08/30/2015 Constitutional No malaise 08/30/2015 Eyes No eye discharge 08/30/2015 Eyes No eye erythema 08/30/2015 Ears/Nose/Throat/Neck No dizziness 2015 Ears/Nose/Throat/Neck No headache 2015 Ears/Nose/Throat/Neck No nasal allergies 08/30/2015 Ears/Nose/Throat/Neck No nasal discharge 08/30/2015 Cardiovascular No chest pain/pressure Cardiovascular No dyspnea 08/30/2015 Cardiovascular No edema 08/30/2015 Respiratory No productive sputum 2015 Respiratory No cough 08/30/2015 Gastrointestinal No abdominal pain 2015 Gastrointestinal No constipation 2015 Gastrointestinal No diarrhea 08/30/2015 Genitourinary/Nephrology No dysuria 08/29 Musculoskeletal sciatica 08/30/2015 Dermatologic No rash 08/30/2015 Neurologic No alteration of consciousness 08/30/2015 Constitutional No recent illness 2015 Constitutional No anorexia 08/02/2015 Constitutional No night sweats 2015 Constitutional No chills 08/02/2015 Constitutional No diaphoresis 08/02/2015 Constitutional No fatigue 08/02/2015 Constitutional No fever 08/02/2015 Constitutional No insomnia 08/02/2015 Constitutional No malaise 08/02/2015 Eyes No eye discharge 08/02/2015 Eyes No eye erythema 08/02/2015 Ears/Nose/Throat/Neck No dizziness 2015 Ears/Nose/Throat/Neck No headache 2015 Ears/Nose/Throat/Neck No nasal allergies 08/02/2015 Ears/Nose/Throat/Neck No nasal discharge 08/02/2015 Cardiovascular No chest pain/pressure Cardiovascular No dyspnea 08/02/2015 Cardiovascular No edema 08/02/2015 Respiratory No productive sputum 2015 Respiratory No cough 08/02/2015 Gastrointestinal No abdominal pain 2015 Gastrointestinal No constipation 2015 Gastrointestinal No diarrhea 08/02/2015 Genitourinary/Nephrology No dysuria 08/01 Musculoskeletal sciatica 08/02/2015 Dermatologic No rash 08/02/2015 Neurologic No alteration of consciousness 08/02/2015 Constitutional No recent illness 2015 Constitutional No anorexia 04/21/2015 Constitutional No night sweats 2015 Constitutional No chills 04/21/2015 Constitutional No diaphoresis 04/21/2015 Constitutional No fatigue 04/21/2015 Constitutional No fever 04/21/2015 Constitutional No insomnia 04/21/2015 Constitutional No malaise 04/21/2015 Constitutional No weight loss 04/21/2015 Constitutional No weight gain 04/21/2015 Eyes No eye discharge 04/21/2015 Eyes No eye erythema 04/21/2015 Ears/Nose/Throat/Neck No dizziness 2015 Ears/Nose/Throat/Neck No headache 2015 Ears/Nose/Throat/Neck No nasal allergies 04/21/2015 Ears/Nose/Throat/Neck No nasal discharge 04/21/2015 Cardiovascular No chest pain/pressure 11/2015 Cardiovascular No dyspnea 04/21/2015 Cardiovascular No edema 04/21/2015 Respiratory No productive sputum 2015 Respiratory No cough 04/21/2015 Gastrointestinal No abdominal pain 2015 Gastrointestinal No constipation 2015 Gastrointestinal No diarrhea 04/21/2015 Genitourinary/Nephrology No dysuria 04/21 Musculoskeletal sciatica 04/21/2015 Dermatologic No rash 04/21/2015 Neurologic No alteration of consciousness 04/21/2015 Musculoskeletal back pain 04/21/2015 Constitutional No recent illness 2014 Constitutional No anorexia 03/21/2015 Constitutional No night sweats 2014 Constitutional No chills 03/21/2015 Constitutional No diaphoresis 03/21/2015 Constitutional No fatigue 03/21/2015 Constitutional No fever 03/21/2015 Constitutional No insomnia 03/21/2015 Constitutional No malaise 03/21/2015 Eyes No eye discharge 03/21/2015 Eyes No eye erythema 03/21/2015 Ears/Nose/Throat/Neck No dizziness 2014 Ears/Nose/Throat/Neck No headache 2014 Ears/Nose/Throat/Neck No nasal allergies 03/21/2015 Ears/Nose/Throat/Neck No nasal discharge 03/21/2015 Cardiovascular No chest pain/pressure 11/2014 Cardiovascular No dyspnea 03/21/2015 Cardiovascular No edema 03/21/2015 Respiratory No productive sputum 2014 Respiratory No cough 03/21/2015 Gastrointestinal No abdominal pain 2014 Gastrointestinal No constipation 2014 Gastrointestinal No diarrhea 03/21/2015 Genitourinary/Nephrology No dysuria 03/21 Musculoskeletal sciatica 03/21/2015 Dermatologic No rash 03/21/2015 Neurologic No alteration of consciousness 03/21/2015 Genitourinary/Nephrology pelvic pain 11/2014 Constitutional No recent illness 2014 Constitutional No anorexia 01/05/2015 Constitutional No night sweats 2014 Constitutional No chills 01/05/2015 Constitutional No diaphoresis 01/05/2015 Constitutional No fever 01/05/2015 Constitutional No fatigue 01/05/2015 Constitutional No insomnia 01/05/2015 Constitutional No weight gain 01/05/2015 Constitutional No weight loss 01/05/2015 Constitutional No malaise 01/05/2015 Eyes No eye discharge 01/05/2015 Eyes No eye erythema 01/05/2015 Ears/Nose/Throat/Neck No dizziness 2014 Ears/Nose/Throat/Neck No headache 2014 Musculoskeletal sciatica 01/05/2015 Ears/Nose/Throat/Neck No nasal allergies 01/05/2015 Ears/Nose/Throat/Neck No nasal discharge 01/05/2015 Cardiovascular No chest pain/pressure Cardiovascular No dyspnea 01/05/2015 Cardiovascular No edema 01/05/2015 Respiratory No productive sputum 2014 Respiratory No cough 01/05/2015 Gastrointestinal No abdominal pain 2014 Gastrointestinal No constipation 2014 Gastrointestinal No diarrhea 01/05/2015 Genitourinary/Nephrology No dysuria 01/05 Dermatologic No rash 01/05/2015 Neurologic No alteration of consciousness 01/05/2015 Constitutional No chills 10/06/2014 Constitutional No fatigue 10/06/2014 Constitutional No fever 10/06/2014 Constitutional No recent illness 2014 Ears/Nose/Throat/Neck No dizziness 2014 Ears/Nose/Throat/Neck No headache 2014 Cardiovascular No chest pain/pressure Cardiovascular No near-syncope/dizziness 10/06/2014 Cardiovascular No palpitations 2014 Respiratory No chest congestion 2014 Respiratory No cough 10/06/2014 Gastrointestinal No abdominal pain 2014 Gastrointestinal No constipation 2014 Gastrointestinal No diarrhea 10/06/2014 Gastrointestinal No nausea 10/06/2014 Gastrointestinal No vomiting 10/06/2014 Genitourinary/Nephrology No dysuria 10/06 Neurologic No alteration of consciousness 10/06/2014 Constitutional No insomnia 10/06/2014 Constitutional No malaise 10/06/2014 Eyes No blindness 10/06/2014 Eyes No vision change 10/06/2014 Ears/Nose/Throat/Neck No dental pain Ears/Nose/Throat/Neck No dysphagia 2014 Ears/Nose/Throat/Neck No hearing loss Ears/Nose/Throat/Neck No nasal allergies 10/06/2014 Ears/Nose/Throat/Neck No sore throat Ears/Nose/Throat/Neck No postnasal drip 10/06/2014 Ears/Nose/Throat/Neck No sinus congestion 10/06/2014 Cardiovascular No dyspnea 10/06/2014 Cardiovascular No edema 10/06/2014 Cardiovascular exercise intolerance 10/06 Cardiovascular fatigue 10/06/2014 Respiratory No chest tightness 2014 Respiratory No dyspnea 10/06/2014 Respiratory No pedal edema 10/06/2014 Gastrointestinal No gastroesophageal reflux 10/06/2014 Genitourinary/Nephrology No nocturia Genitourinary/Nephrology No urinary incontinence 10/06/2014 Musculoskeletal stiffness 10/06/2014 Musculoskeletal No swelling 10/06/2014 Musculoskeletal muscle weakness 2014 Musculoskeletal No myalgias 10/06/2014 Dermatologic No rash 10/06/2014 Dermatologic sores 10/06/2014 Dermatologic No scar 10/06/2014 Neurologic No dizziness 10/06/2014 Neurologic No headache 10/06/2014 Neurologic No neck pain 10/06/2014 Neurologic No syncope 10/06/2014 Psychiatric No anxiety 10/06/2014 Psychiatric No depression 10/06/2014 Cardiovascular hypertension 10/06/2014 Musculoskeletal arthralgia(s) 10/06/2014 Physical Exam Exam Name System Name Item Name Status Result Effective Dates Notes Full Exam - General 1994 Constitutional general appearance Development: well developed 02/04/2017 None Full Exam - General 1994 Constitutional general appearance Development: appears stated age 1002/04/2017 None Full Exam - General 1994 Constitutional general appearance Hygiene/Attention to Grooming: good hygiene 02/04/2017 None Full Exam - General 1994 Eyes conjunctiva /eyelids Overall: conjunctiva clear 02/04/2017 None Full Exam - General 1994 Eyes conjunctiva /eyelids Overall: cornea clear 02/04/2017 None Full Exam - General 1994 Eyes conjunctiva /eyelids Overall: eyelids normal 02/04/2017 None Full Exam - General 1994 Eyes pupils and irises Overall: pupils equal, round, reactive to light and accomodation 02/04/2017 None Full Exam - General 1994 Ears/Nose/Throat otoscopic exam Overall: external auditory canals clear 02/04/2017 None Full Exam - General 1994 Ears/Nose/Throat otoscopic exam Overall: tympanic membranes clear 02/04/2017 None Full Exam - General 1994 Ears/Nose/Throat lips/teeth/gingiva Overall: benign lips 02/04/2017 None Full Exam - General 1994 Ears/Nose/Throat lips/teeth/gingiva Overall: normal dentition 02/04/2017 None Full Exam - General 1994 Ears/Nose/Throat oral cavity/pharynx/larynx Overall: oral mucosa clear 02/04/2017 None Full Exam - General 1994 Ears/Nose/Throat oral cavity/pharynx/larynx Overall: oropharyngeal mucosa clear 02/04/2017 None Full Exam - General 1994 Ears/Nose/Throat oral cavity/pharynx/larynx Overall: hypopharynx benign 02/04/2017 None Full Exam - General 1994 Ears/Nose/Throat oral cavity/pharynx/larynx Overall: no masses 02/04/2017 None Full Exam - General 1994 Respiratory auscultation Overall: breath sounds clear bilaterally 02/04/2017 None Full Exam - General 1994 Respiratory respiratory effort/rhythm Overall: no retractions 02/04/2017 None Full Exam - General 1994 Respiratory respiratory effort/rhythm Overall: normal rate 02/04/2017 None Full Exam - General 1994 Cardiovascular extremities Overall: no clubbing 02/04/2017 None Full Exam - General 1994 Cardiovascular auscultation of heart Overall: regular rate 02/04/2017 None Full Exam - General 1994 Cardiovascular auscultation of heart Overall: normal heart sounds 02/04/2017 None Full Exam - General 1994 Abdomen abdominal exam Overall: no tenderness 02/04/2017 None Full Exam - General 1994 Abdomen abdominal exam Overall: normal bowel sounds 02/04/2017 None Full Exam - General 1994 Lymphatic neck nodes Overall: anterior cervical chain benign 02/04/2017 None Full Exam - General 1994 Lymphatic neck nodes Overall: posterior cervical chain benign 02/04/2017 None Full Exam - General 1994 Musculoskeletal spine, ribs and pelvis Overall: spine benign 02/04/2017 None Full Exam - General 1994 Musculoskeletal spine, ribs and pelvis Overall: sacroiliac joint benign 02/04/2017 None Full Exam - General 1994 Musculoskeletal spine, ribs and pelvis Overall: good posture 02/04/2017 None Full Exam - General 1994 Musculoskeletal head and neck Overall: head atraumatic 02/04/2017 None Full Exam - General 1994 Musculoskeletal head and neck Overall: cervical spine benign 02/04/2017 None Full Exam - General 1994 Neurologic deep tendon reflexes Overall: deep tendon reflexes intact 02/04/2017 None Full Exam - General 1994 Neurologic cranial nerves Overall: crainial nerves 2 - 12 grossly intact 02/04/2017 None Full Exam - General 1994 Psychiatric orientation/consciousness Overall: oriented to person, place and time 02/04/2017 None Full Exam - General 1994 Psychiatric mood and affect Overall: normal mood and affect 02/04/2017 None Full Exam - General 1994 Constitutional general appearance Overall: well developed 10/18/2016 None Full Exam - General 1994 Constitutional general appearance Overall: in no acute distress 10/18/2016 None Full Exam - General 1994 Constitutional general appearance Overall: well nourished 10/18/2016 None Full Exam - General 1994 Eyes conjunctiva /eyelids Overall: conjunctiva clear 10/18/2016 None Full Exam - General 1994 Eyes conjunctiva /eyelids Overall: eyelids normal 10/18/2016 None Full Exam - General 1994 Ears/Nose/Throat lips/teeth/gingiva Overall: benign lips 10/18/2016 None Full Exam - General 1994 Ears/Nose/Throat oral cavity/pharynx/larynx Overall: oral mucosa clear 10/18/2016 None Full Exam - General 1994 Respiratory respiratory effort/rhythm Overall: no retractions 10/18/2016 None Full Exam - General 1994 Respiratory respiratory effort/rhythm Overall: normal rate 10/18/2016 None Full Exam - General 1994 Musculoskeletal head and neck Overall: head atraumatic 10/18/2016 None Full Exam - General 1994 Musculoskeletal gait and station Overall: normal gait 10/18/2016 None Full Exam - General 1994 Musculoskeletal gait and station Overall: normal station 10/18/2016 None Full Exam - General 1994 Neurologic cranial nerves Overall: crainial nerves 2 - 12 grossly intact 10/18/2016 None Full Exam - General 1994 Psychiatric orientation/consciousness Overall: oriented to person, place and time 10/18/2016 None Full Exam - General 1994 Psychiatric mood and affect Overall: normal mood and affect 10/18/2016 None Full Exam - General 1994 Psychiatric appearance Overall: well-groomed, good eye contact 10/18/2016 None Full Exam - General 1994 Constitutional general appearance Development: well developed 10/03/2016 None Full Exam - General 1994 Constitutional general appearance Development: appears stated age 0610/03/2016 None Full Exam - General 1994 Constitutional general appearance Hygiene/Attention to Grooming: good hygiene 10/03/2016 None Full Exam - General 1994 Eyes conjunctiva /eyelids Overall: conjunctiva clear 10/03/2016 None Full Exam - General 1994 Eyes conjunctiva /eyelids Overall: cornea clear 10/03/2016 None Full Exam - General 1994 Eyes conjunctiva /eyelids Overall: eyelids normal 10/03/2016 None Full Exam - General 1994 Eyes pupils and irises Overall: pupils equal, round, reactive to light and accomodation 10/03/2016 None Full Exam - General 1994 Ears/Nose/Throat otoscopic exam Overall: external auditory canals clear 10/03/2016 None Full Exam - General 1994 Ears/Nose/Throat otoscopic exam Overall: tympanic membranes clear 10/03/2016 None Full Exam - General 1994 Ears/Nose/Throat lips/teeth/gingiva Overall: benign lips 10/03/2016 None Full Exam - General 1994 Ears/Nose/Throat lips/teeth/gingiva Overall: normal dentition 10/03/2016 None Full Exam - General 1994 Ears/Nose/Throat oral cavity/pharynx/larynx Overall: oral mucosa clear 10/03/2016 None Full Exam - General 1994 Ears/Nose/Throat oral cavity/pharynx/larynx Overall: oropharyngeal mucosa clear 10/03/2016 None Full Exam - General 1994 Ears/Nose/Throat oral cavity/pharynx/larynx Overall: hypopharynx benign 10/03/2016 None Full Exam - General 1994 Ears/Nose/Throat oral cavity/pharynx/larynx Overall: no masses 10/03/2016 None Full Exam - General 1994 Respiratory auscultation Overall: breath sounds clear bilaterally 10/03/2016 None Full Exam - General 1994 Respiratory respiratory effort/rhythm Overall: no retractions 10/03/2016 None Full Exam - General 1994 Respiratory respiratory effort/rhythm Overall: normal rate 10/03/2016 None Full Exam - General 1994 Cardiovascular extremities Overall: no clubbing 10/03/2016 None Full Exam - General 1994 Cardiovascular auscultation of heart Overall: regular rate 10/03/2016 None Full Exam - General 1994 Cardiovascular auscultation of heart Overall: normal heart sounds 10/03/2016 None Full Exam - General 1994 Abdomen abdominal exam Overall: no tenderness 10/03/2016 None Full Exam - General 1994 Abdomen abdominal exam Overall: normal bowel sounds 10/03/2016 None Full Exam - General 1994 Lymphatic neck nodes Overall: anterior cervical chain benign 10/03/2016 None Full Exam - General 1994 Lymphatic neck nodes Overall: posterior cervical chain benign 10/03/2016 None Full Exam - General 1994 Musculoskeletal spine, ribs and pelvis Overall: spine benign 10/03/2016 None Full Exam - General 1994 Musculoskeletal spine, ribs and pelvis Overall: sacroiliac joint benign 10/03/2016 None Full Exam - General 1994 Musculoskeletal spine, ribs and pelvis Overall: good posture 10/03/2016 None Full Exam - General 1994 Musculoskeletal head and neck Overall: head atraumatic 10/03/2016 None Full Exam - General 1994 Musculoskeletal head and neck Overall: cervical spine benign 10/03/2016 None Full Exam - General 1994 Neurologic deep tendon reflexes Overall: deep tendon reflexes intact 10/03/2016 None Full Exam - General 1994 Neurologic cranial nerves Overall: crainial nerves 2 - 12 grossly intact 10/03/2016 None Full Exam - General 1994 Psychiatric orientation/consciousness Overall: oriented to person, place and time 10/03/2016 None Full Exam - General 1994 Psychiatric mood and affect Overall: normal mood and affect 10/03/2016 None Full Exam - General 1994 Cardiovascular inspection of pedal pulses Dorsalis pedis: decreased 10/03/2016 cool to the touch Full Exam - General 1994 Constitutional general appearance Development: well developed 07/02/2016 None Full Exam - General 1994 Constitutional general appearance Development: appears stated age 0307/02/2016 None Full Exam - General 1994 Constitutional general appearance Hygiene/Attention to Grooming: good hygiene 07/02/2016 None Full Exam - General 1994 Eyes conjunctiva /eyelids Overall: conjunctiva clear 07/02/2016 None Full Exam - General 1994 Eyes conjunctiva /eyelids Overall: cornea clear 07/02/2016 None Full Exam - General 1994 Eyes conjunctiva /eyelids Overall: eyelids normal 07/02/2016 None Full Exam - General 1994 Eyes pupils and irises Overall: pupils equal, round, reactive to light and accomodation 07/02/2016 None Full Exam - General 1994 Ears/Nose/Throat otoscopic exam Overall: external auditory canals clear 07/02/2016 None Full Exam - General 1994 Ears/Nose/Throat otoscopic exam Overall: tympanic membranes clear 07/02/2016 None Full Exam - General 1994 Ears/Nose/Throat lips/teeth/gingiva Overall: benign lips 07/02/2016 None Full Exam - General 1994 Ears/Nose/Throat lips/teeth/gingiva Overall: normal dentition 07/02/2016 None Full Exam - General 1994 Ears/Nose/Throat oral cavity/pharynx/larynx Overall: oral mucosa clear 07/02/2016 None Full Exam - General 1994 Ears/Nose/Throat oral cavity/pharynx/larynx Overall: oropharyngeal mucosa clear 07/02/2016 None Full Exam - General 1994 Ears/Nose/Throat oral cavity/pharynx/larynx Overall: hypopharynx benign 07/02/2016 None Full Exam - General 1994 Ears/Nose/Throat oral cavity/pharynx/larynx Overall: no masses 07/02/2016 None Full Exam - General 1994 Respiratory auscultation Overall: breath sounds clear bilaterally 07/02/2016 None Full Exam - General 1994 Respiratory respiratory effort/rhythm Overall: no retractions 07/02/2016 None Full Exam - General 1994 Respiratory respiratory effort/rhythm Overall: normal rate 07/02/2016 None Full Exam - General 1994 Cardiovascular extremities Overall: no clubbing 07/02/2016 None Full Exam - General 1994 Cardiovascular auscultation of heart Overall: regular rate 07/02/2016 None Full Exam - General 1994 Cardiovascular auscultation of heart Overall: normal heart sounds 07/02/2016 None Full Exam - General 1994 Abdomen abdominal exam Overall: no tenderness 07/02/2016 None Full Exam - General 1994 Abdomen abdominal exam Overall: normal bowel sounds 07/02/2016 None Full Exam - General 1994 Lymphatic neck nodes Overall: anterior cervical chain benign 07/02/2016 None Full Exam - General 1994 Lymphatic neck nodes Overall: posterior cervical chain benign 07/02/2016 None Full Exam - General 1994 Musculoskeletal spine, ribs and pelvis Overall: spine benign 07/02/2016 None Full Exam - General 1994 Musculoskeletal spine, ribs and pelvis Overall: sacroiliac joint benign 07/02/2016 None Full Exam - General 1994 Musculoskeletal spine, ribs and pelvis Overall: good posture 07/02/2016 None Full Exam - General 1994 Musculoskeletal head and neck Overall: head atraumatic 07/02/2016 None Full Exam - General 1994 Musculoskeletal head and neck Overall: cervical spine benign 07/02/2016 None Full Exam - General 1994 Neurologic deep tendon reflexes Overall: deep tendon reflexes intact 07/02/2016 None Full Exam - General 1994 Neurologic cranial nerves Overall: crainial nerves 2 - 12 grossly intact 07/02/2016 None Full Exam - General 1994 Psychiatric orientation/consciousness Overall: oriented to person, place and time 07/02/2016 None Full Exam - General 1994 Psychiatric mood and affect Overall: normal mood and affect 07/02/2016 None Full Exam - General 1994 Constitutional general appearance Development: well developed 04/04/2016 None Full Exam - General 1994 Constitutional general appearance Development: appears stated age 1204/04/2016 None Full Exam - General 1994 Constitutional general appearance Hygiene/Attention to Grooming: good hygiene 04/04/2016 None Full Exam - General 1994 Eyes conjunctiva /eyelids Overall: conjunctiva clear 04/04/2016 None Full Exam - General 1994 Eyes conjunctiva /eyelids Overall: cornea clear 04/04/2016 None Full Exam - General 1994 Eyes conjunctiva /eyelids Overall: eyelids normal 04/04/2016 None Full Exam - General 1994 Eyes pupils and irises Overall: pupils equal, round, reactive to light and accomodation 04/04/2016 None Full Exam - General 1994 Ears/Nose/Throat otoscopic exam Overall: external auditory canals clear 04/04/2016 None Full Exam - General 1994 Ears/Nose/Throat otoscopic exam Overall: tympanic membranes clear 04/04/2016 None Full Exam - General 1994 Ears/Nose/Throat lips/teeth/gingiva Overall: benign lips 04/04/2016 None Full Exam - General 1994 Ears/Nose/Throat lips/teeth/gingiva Overall: normal dentition 04/04/2016 None Full Exam - General 1994 Ears/Nose/Throat oral cavity/pharynx/larynx Overall: oral mucosa clear 04/04/2016 None Full Exam - General 1994 Ears/Nose/Throat oral cavity/pharynx/larynx Overall: oropharyngeal mucosa clear 04/04/2016 None Full Exam - General 1994 Ears/Nose/Throat oral cavity/pharynx/larynx Overall: hypopharynx benign 04/04/2016 None Full Exam - General 1994 Ears/Nose/Throat oral cavity/pharynx/larynx Overall: no masses 04/04/2016 None Full Exam - General 1994 Respiratory auscultation Overall: breath sounds clear bilaterally 04/04/2016 None Full Exam - General 1994 Respiratory respiratory effort/rhythm Overall: no retractions 04/04/2016 None Full Exam - General 1994 Respiratory respiratory effort/rhythm Overall: normal rate 04/04/2016 None Full Exam - General 1994 Cardiovascular extremities Overall: no clubbing 04/04/2016 None Full Exam - General 1994 Cardiovascular auscultation of heart Overall: regular rate 04/04/2016 None Full Exam - General 1994 Cardiovascular auscultation of heart Overall: normal heart sounds 04/04/2016 None Full Exam - General 1994 Abdomen abdominal exam Overall: no tenderness 04/04/2016 None Full Exam - General 1994 Abdomen abdominal exam Overall: normal bowel sounds 04/04/2016 None Full Exam - General 1994 Lymphatic neck nodes Overall: anterior cervical chain benign 04/04/2016 None Full Exam - General 1994 Lymphatic neck nodes Overall: posterior cervical chain benign 04/04/2016 None Full Exam - General 1994 Musculoskeletal spine, ribs and pelvis Overall: spine benign 04/04/2016 None Full Exam - General 1994 Musculoskeletal spine, ribs and pelvis Overall: sacroiliac joint benign 04/04/2016 None Full Exam - General 1994 Musculoskeletal spine, ribs and pelvis Overall: good posture 04/04/2016 None Full Exam - General 1994 Musculoskeletal head and neck Overall: head atraumatic 04/04/2016 None Full Exam - General 1994 Musculoskeletal head and neck Overall: cervical spine benign 04/04/2016 None Full Exam - General 1994 Neurologic deep tendon reflexes Overall: deep tendon reflexes intact 04/04/2016 None Full Exam - General 1994 Neurologic cranial nerves Overall: crainial nerves 2 - 12 grossly intact 04/04/2016 None Full Exam - General 1994 Psychiatric orientation/consciousness Overall: oriented to person, place and time 04/04/2016 None Full Exam - General 1994 Psychiatric mood and affect Overall: normal mood and affect 04/04/2016 None Full Exam - General 1994 Constitutional general appearance Development: well developed 01/04/2016 None Full Exam - General 1994 Constitutional general appearance Development: appears stated age 0901/04/2016 None Full Exam - General 1994 Constitutional general appearance Hygiene/Attention to Grooming: good hygiene 01/04/2016 None Full Exam - General 1994 Eyes conjunctiva /eyelids Overall: conjunctiva clear 01/04/2016 None Full Exam - General 1994 Eyes conjunctiva /eyelids Overall: cornea clear 01/04/2016 None Full Exam - General 1994 Eyes conjunctiva /eyelids Overall: eyelids normal 01/04/2016 None Full Exam - General 1994 Eyes pupils and irises Overall: pupils equal, round, reactive to light and accomodation 01/04/2016 None Full Exam - General 1994 Ears/Nose/Throat otoscopic exam Overall: external auditory canals clear 01/04/2016 None Full Exam - General 1994 Ears/Nose/Throat otoscopic exam Overall: tympanic membranes clear 01/04/2016 None Full Exam - General 1994 Ears/Nose/Throat lips/teeth/gingiva Overall: benign lips 01/04/2016 None Full Exam - General 1994 Ears/Nose/Throat lips/teeth/gingiva Overall: normal dentition 01/04/2016 None Full Exam - General 1994 Ears/Nose/Throat oral cavity/pharynx/larynx Overall: oral mucosa clear 01/04/2016 None Full Exam - General 1994 Ears/Nose/Throat oral cavity/pharynx/larynx Overall: oropharyngeal mucosa clear 01/04/2016 None Full Exam - General 1994 Ears/Nose/Throat oral cavity/pharynx/larynx Overall: hypopharynx benign 01/04/2016 None Full Exam - General 1994 Ears/Nose/Throat oral cavity/pharynx/larynx Overall: no masses 01/04/2016 None Full Exam - General 1994 Respiratory auscultation Overall: breath sounds clear bilaterally 01/04/2016 None Full Exam - General 1994 Respiratory respiratory effort/rhythm Overall: no retractions 01/04/2016 None Full Exam - General 1994 Respiratory respiratory effort/rhythm Overall: normal rate 01/04/2016 None Full Exam - General 1994 Cardiovascular extremities Overall: no clubbing 01/04/2016 None Full Exam - General 1994 Cardiovascular auscultation of heart Overall: regular rate 01/04/2016 None Full Exam - General 1994 Cardiovascular auscultation of heart Overall: normal heart sounds 01/04/2016 None Full Exam - General 1994 Abdomen abdominal exam Overall: no tenderness 01/04/2016 None Full Exam - General 1994 Abdomen abdominal exam Overall: normal bowel sounds 01/04/2016 None Full Exam - General 1994 Lymphatic neck nodes Overall: anterior cervical chain benign 01/04/2016 None Full Exam - General 1994 Lymphatic neck nodes Overall: posterior cervical chain benign 01/04/2016 None Full Exam - General 1994 Musculoskeletal spine, ribs and pelvis Overall: spine benign 01/04/2016 None Full Exam - General 1994 Musculoskeletal spine, ribs and pelvis Overall: sacroiliac joint benign 01/04/2016 None Full Exam - General 1994 Musculoskeletal spine, ribs and pelvis Overall: good posture 01/04/2016 None Full Exam - General 1994 Musculoskeletal head and neck Overall: head atraumatic 01/04/2016 None Full Exam - General 1994 Musculoskeletal head and neck Overall: cervical spine benign 01/04/2016 None Full Exam - General 1994 Neurologic deep tendon reflexes Overall: deep tendon reflexes intact 01/04/2016 None Full Exam - General 1994 Neurologic cranial nerves Overall: crainial nerves 2 - 12 grossly intact 01/04/2016 None Full Exam - General 1994 Psychiatric orientation/consciousness Overall: oriented to person, place and time 01/04/2016 None Full Exam - General 1994 Psychiatric mood and affect Overall: normal mood and affect 01/04/2016 None Full Exam - General 1994 Constitutional general appearance Development: well developed 10/04/2015 None Full Exam - General 1994 Constitutional general appearance Development: appears stated age 0610/04/2015 None Full Exam - General 1994 Constitutional general appearance Hygiene/Attention to Grooming: good hygiene 10/04/2015 None Full Exam - General 1994 Eyes conjunctiva /eyelids Overall: conjunctiva clear 10/04/2015 None Full Exam - General 1994 Eyes conjunctiva /eyelids Overall: cornea clear 10/04/2015 None Full Exam - General 1994 Eyes conjunctiva /eyelids Overall: eyelids normal 10/04/2015 None Full Exam - General 1994 Eyes pupils and irises Overall: pupils equal, round, reactive to light and accomodation 10/04/2015 None Full Exam - General 1994 Ears/Nose/Throat otoscopic exam Overall: external auditory canals clear 10/04/2015 None Full Exam - General 1994 Ears/Nose/Throat otoscopic exam Overall: tympanic membranes clear 10/04/2015 None Full Exam - General 1994 Ears/Nose/Throat lips/teeth/gingiva Overall: benign lips 10/04/2015 None Full Exam - General 1994 Ears/Nose/Throat lips/teeth/gingiva Overall: normal dentition 10/04/2015 None Full Exam - General 1994 Ears/Nose/Throat oral cavity/pharynx/larynx Overall: oral mucosa clear 10/04/2015 None Full Exam - General 1994 Ears/Nose/Throat oral cavity/pharynx/larynx Overall: oropharyngeal mucosa clear 10/04/2015 None Full Exam - General 1994 Ears/Nose/Throat oral cavity/pharynx/larynx Overall: hypopharynx benign 10/04/2015 None Full Exam - General 1994 Ears/Nose/Throat oral cavity/pharynx/larynx Overall: no masses 10/04/2015 None Full Exam - General 1994 Respiratory auscultation Overall: breath sounds clear bilaterally 10/04/2015 None Full Exam - General 1994 Respiratory respiratory effort/rhythm Overall: no retractions 10/04/2015 None Full Exam - General 1994 Respiratory respiratory effort/rhythm Overall: normal rate 10/04/2015 None Full Exam - General 1994 Cardiovascular extremities Overall: no clubbing 10/04/2015 None Full Exam - General 1994 Cardiovascular auscultation of heart Overall: regular rate 10/04/2015 None Full Exam - General 1994 Cardiovascular auscultation of heart Overall: normal heart sounds 10/04/2015 None Full Exam - General 1994 Abdomen abdominal exam Overall: no tenderness 10/04/2015 None Full Exam - General 1994 Abdomen abdominal exam Overall: normal bowel sounds 10/04/2015 None Full Exam - General 1994 Lymphatic neck nodes Overall: anterior cervical chain benign 10/04/2015 None Full Exam - General 1994 Lymphatic neck nodes Overall: posterior cervical chain benign 10/04/2015 None Full Exam - General 1994 Musculoskeletal spine, ribs and pelvis Overall: spine benign 10/04/2015 None Full Exam - General 1994 Musculoskeletal spine, ribs and pelvis Overall: sacroiliac joint benign 10/04/2015 None Full Exam - General 1994 Musculoskeletal spine, ribs and pelvis Overall: good posture 10/04/2015 None Full Exam - General 1994 Musculoskeletal head and neck Overall: head atraumatic 10/04/2015 None Full Exam - General 1994 Musculoskeletal head and neck Overall: cervical spine benign 10/04/2015 None Full Exam - General 1994 Neurologic deep tendon reflexes Overall: deep tendon reflexes intact 10/04/2015 None Full Exam - General 1994 Neurologic cranial nerves Overall: crainial nerves 2 - 12 grossly intact 10/04/2015 None Full Exam - General 1994 Psychiatric orientation/consciousness Overall: oriented to person, place and time 10/04/2015 None Full Exam - General 1994 Psychiatric mood and affect Overall: normal mood and affect 10/04/2015 None Full Exam - General 1994 Constitutional general appearance Development: well developed 08/30/2015 None Full Exam - General 1994 Constitutional general appearance Development: appears stated age 0508/30/2015 None Full Exam - General 1994 Constitutional general appearance Hygiene/Attention to Grooming: good hygiene 08/30/2015 None Full Exam - General 1994 Eyes conjunctiva /eyelids Overall: conjunctiva clear 08/30/2015 None Full Exam - General 1994 Eyes conjunctiva /eyelids Overall: cornea clear 08/30/2015 None Full Exam - General 1994 Eyes conjunctiva /eyelids Overall: eyelids normal 08/30/2015 None Full Exam - General 1994 Eyes pupils and irises Overall: pupils equal, round, reactive to light and accomodation 08/30/2015 None Full Exam - General 1994 Ears/Nose/Throat otoscopic exam Overall: external auditory canals clear 08/30/2015 None Full Exam - General 1994 Ears/Nose/Throat otoscopic exam Overall: tympanic membranes clear 08/30/2015 None Full Exam - General 1994 Ears/Nose/Throat lips/teeth/gingiva Overall: benign lips 08/30/2015 None Full Exam - General 1994 Ears/Nose/Throat lips/teeth/gingiva Overall: normal dentition 08/30/2015 None Full Exam - General 1994 Ears/Nose/Throat oral cavity/pharynx/larynx Overall: oral mucosa clear 08/30/2015 None Full Exam - General 1994 Ears/Nose/Throat oral cavity/pharynx/larynx Overall: oropharyngeal mucosa clear 08/30/2015 None Full Exam - General 1994 Ears/Nose/Throat oral cavity/pharynx/larynx Overall: hypopharynx benign 08/30/2015 None Full Exam - General 1994 Ears/Nose/Throat oral cavity/pharynx/larynx Overall: no masses 08/30/2015 None Full Exam - General 1994 Respiratory auscultation Overall: breath sounds clear bilaterally 08/30/2015 None Full Exam - General 1994 Respiratory respiratory effort/rhythm Overall: no retractions 08/30/2015 None Full Exam - General 1994 Respiratory respiratory effort/rhythm Overall: normal rate 08/30/2015 None Full Exam - General 1994 Cardiovascular extremities Overall: no clubbing 08/30/2015 None Full Exam - General 1994 Cardiovascular auscultation of heart Overall: regular rate 08/30/2015 None Full Exam - General 1994 Cardiovascular auscultation of heart Overall: normal heart sounds 08/30/2015 None Full Exam - General 1994 Abdomen abdominal exam Overall: no tenderness 08/30/2015 None Full Exam - General 1994 Abdomen abdominal exam Overall: normal bowel sounds 08/30/2015 None Full Exam - General 1994 Lymphatic neck nodes Overall: anterior cervical chain benign 08/30/2015 None Full Exam - General 1994 Lymphatic neck nodes Overall: posterior cervical chain benign 08/30/2015 None Full Exam - General 1994 Musculoskeletal spine, ribs and pelvis Overall: spine benign 08/30/2015 None Full Exam - General 1994 Musculoskeletal spine, ribs and pelvis Overall: sacroiliac joint benign 08/30/2015 None Full Exam - General 1994 Musculoskeletal spine, ribs and pelvis Overall: good posture 08/30/2015 None Full Exam - General 1994 Musculoskeletal head and neck Overall: head atraumatic 08/30/2015 None Full Exam - General 1994 Musculoskeletal head and neck Overall: cervical spine benign 08/30/2015 None Full Exam - General 1994 Neurologic deep tendon reflexes Overall: deep tendon reflexes intact 08/30/2015 None Full Exam - General 1994 Neurologic cranial nerves Overall: crainial nerves 2 - 12 grossly intact 08/30/2015 None Full Exam - General 1994 Psychiatric orientation/consciousness Overall: oriented to person, place and time 08/30/2015 None Full Exam - General 1994 Psychiatric mood and affect Overall: normal mood and affect 08/30/2015 None Full Exam - General 1994 Constitutional general appearance Development: well developed 08/02/2015 None Full Exam - General 1994 Constitutional general appearance Development: appears stated age 0408/02/2015 None Full Exam - General 1994 Constitutional general appearance Hygiene/Attention to Grooming: good hygiene 08/02/2015 None Full Exam - General 1994 Eyes conjunctiva /eyelids Overall: conjunctiva clear 08/02/2015 None Full Exam - General 1994 Eyes conjunctiva /eyelids Overall: cornea clear 08/02/2015 None Full Exam - General 1994 Eyes conjunctiva /eyelids Overall: eyelids normal 08/02/2015 None Full Exam - General 1994 Eyes pupils and irises Overall: pupils equal, round, reactive to light and accomodation 08/02/2015 None Full Exam - General 1994 Ears/Nose/Throat otoscopic exam Overall: external auditory canals clear 08/02/2015 None Full Exam - General 1994 Ears/Nose/Throat otoscopic exam Overall: tympanic membranes clear 08/02/2015 None Full Exam - General 1994 Ears/Nose/Throat lips/teeth/gingiva Overall: benign lips 08/02/2015 None Full Exam - General 1994 Ears/Nose/Throat lips/teeth/gingiva Overall: normal dentition 08/02/2015 None Full Exam - General 1994 Ears/Nose/Throat oral cavity/pharynx/larynx Overall: oral mucosa clear 08/02/2015 None Full Exam - General 1994 Ears/Nose/Throat oral cavity/pharynx/larynx Overall: oropharyngeal mucosa clear 08/02/2015 None Full Exam - General 1994 Ears/Nose/Throat oral cavity/pharynx/larynx Overall: hypopharynx benign 08/02/2015 None Full Exam - General 1994 Ears/Nose/Throat oral cavity/pharynx/larynx Overall: no masses 08/02/2015 None Full Exam - General 1994 Respiratory auscultation Overall: breath sounds clear bilaterally 08/02/2015 None Full Exam - General 1994 Respiratory respiratory effort/rhythm Overall: no retractions 08/02/2015 None Full Exam - General 1994 Respiratory respiratory effort/rhythm Overall: normal rate 08/02/2015 None Full Exam - General 1994 Cardiovascular extremities Overall: no clubbing 08/02/2015 None Full Exam - General 1994 Cardiovascular auscultation of heart Overall: regular rate 08/02/2015 None Full Exam - General 1994 Cardiovascular auscultation of heart Overall: normal heart sounds 08/02/2015 None Full Exam - General 1994 Abdomen abdominal exam Overall: no tenderness 08/02/2015 None Full Exam - General 1994 Abdomen abdominal exam Overall: normal bowel sounds 08/02/2015 None Full Exam - General 1994 Lymphatic neck nodes Overall: anterior cervical chain benign 08/02/2015 None Full Exam - General 1994 Lymphatic neck nodes Overall: posterior cervical chain benign 08/02/2015 None Full Exam - General 1994 Musculoskeletal spine, ribs and pelvis Overall: spine benign 08/02/2015 None Full Exam - General 1994 Musculoskeletal spine, ribs and pelvis Overall: sacroiliac joint benign 08/02/2015 None Full Exam - General 1994 Musculoskeletal spine, ribs and pelvis Overall: good posture 08/02/2015 None Full Exam - General 1994 Musculoskeletal head and neck Overall: head atraumatic 08/02/2015 None Full Exam - General 1994 Musculoskeletal head and neck Overall: cervical spine benign 08/02/2015 None Full Exam - General 1994 Neurologic deep tendon reflexes Overall: deep tendon reflexes intact 08/02/2015 None Full Exam - General 1994 Neurologic cranial nerves Overall: crainial nerves 2 - 12 grossly intact 08/02/2015 None Full Exam - General 1994 Psychiatric orientation/consciousness Overall: oriented to person, place and time 08/02/2015 None Full Exam - General 1994 Psychiatric mood and affect Overall: normal mood and affect 08/02/2015 None Full Exam - General 1994 Constitutional general appearance Development: well developed 04/21/2015 None Full Exam - General 1994 Constitutional general appearance Development: appears stated age 0104/21/2015 None Full Exam - General 1994 Constitutional general appearance Hygiene/Attention to Grooming: good hygiene 04/21/2015 None Full Exam - General 1994 Eyes conjunctiva /eyelids Overall: conjunctiva clear 04/21/2015 None Full Exam - General 1994 Eyes conjunctiva /eyelids Overall: cornea clear 04/21/2015 None Full Exam - General 1994 Eyes conjunctiva /eyelids Overall: eyelids normal 04/21/2015 None Full Exam - General 1994 Eyes pupils and irises Overall: pupils equal, round, reactive to light and accomodation 04/21/2015 None Full Exam - General 1994 Ears/Nose/Throat otoscopic exam Overall: external auditory canals clear 04/21/2015 None Full Exam - General 1994 Ears/Nose/Throat otoscopic exam Overall: tympanic membranes clear 04/21/2015 None Full Exam - General 1994 Ears/Nose/Throat lips/teeth/gingiva Overall: benign lips 04/21/2015 None Full Exam - General 1994 Ears/Nose/Throat lips/teeth/gingiva Overall: normal dentition 04/21/2015 None Full Exam - General 1994 Ears/Nose/Throat oral cavity/pharynx/larynx Overall: oral mucosa clear 04/21/2015 None Full Exam - General 1994 Ears/Nose/Throat oral cavity/pharynx/larynx Overall: oropharyngeal mucosa clear 04/21/2015 None Full Exam - General 1994 Ears/Nose/Throat oral cavity/pharynx/larynx Overall: hypopharynx benign 04/21/2015 None Full Exam - General 1994 Ears/Nose/Throat oral cavity/pharynx/larynx Overall: no masses 04/21/2015 None Full Exam - General 1994 Respiratory auscultation Overall: breath sounds clear bilaterally 04/21/2015 None Full Exam - General 1994 Respiratory respiratory effort/rhythm Overall: no retractions 04/21/2015 None Full Exam - General 1994 Respiratory respiratory effort/rhythm Overall: normal rate 04/21/2015 None Full Exam - General 1994 Cardiovascular extremities Overall: no clubbing 04/21/2015 None Full Exam - General 1994 Cardiovascular auscultation of heart Overall: regular rate 04/21/2015 None Full Exam - General 1994 Cardiovascular auscultation of heart Overall: normal heart sounds 04/21/2015 None Full Exam - General 1994 Abdomen abdominal exam Overall: no tenderness 04/21/2015 None Full Exam - General 1994 Abdomen abdominal exam Overall: normal bowel sounds 04/21/2015 None Full Exam - General 1994 Lymphatic neck nodes Overall: anterior cervical chain benign 04/21/2015 None Full Exam - General 1994 Lymphatic neck nodes Overall: posterior cervical chain benign 04/21/2015 None Full Exam - General 1994 Musculoskeletal spine, ribs and pelvis Overall: spine benign 04/21/2015 None Full Exam - General 1994 Musculoskeletal spine, ribs and pelvis Overall: sacroiliac joint benign 04/21/2015 None Full Exam - General 1994 Musculoskeletal spine, ribs and pelvis Overall: good posture 04/21/2015 None Full Exam - General 1994 Musculoskeletal head and neck Overall: head atraumatic 04/21/2015 None Full Exam - General 1994 Musculoskeletal head and neck Overall: cervical spine benign 04/21/2015 None Full Exam - General 1994 Neurologic deep tendon reflexes Overall: deep tendon reflexes intact 04/21/2015 None Full Exam - General 1994 Neurologic cranial nerves Overall: crainial nerves 2 - 12 grossly intact 04/21/2015 None Full Exam - General 1994 Psychiatric orientation/consciousness Overall: oriented to person, place and time 04/21/2015 None Full Exam - General 1994 Psychiatric mood and affect Overall: normal mood and affect 04/21/2015 None Full Exam - General 1994 Constitutional general appearance Development: well developed 03/21/2015 None Full Exam - General 1994 Constitutional general appearance Development: appears stated age 1203/21/2015 None Full Exam - General 1994 Constitutional general appearance Hygiene/Attention to Grooming: good hygiene 03/21/2015 None Full Exam - General 1994 Eyes conjunctiva /eyelids Overall: conjunctiva clear 03/21/2015 None Full Exam - General 1994 Eyes conjunctiva /eyelids Overall: cornea clear 03/21/2015 None Full Exam - General 1994 Eyes conjunctiva /eyelids Overall: eyelids normal 03/21/2015 None Full Exam - General 1994 Eyes pupils and irises Overall: pupils equal, round, reactive to light and accomodation 03/21/2015 None Full Exam - General 1994 Ears/Nose/Throat otoscopic exam Overall: external auditory canals clear 03/21/2015 None Full Exam - General 1994 Ears/Nose/Throat otoscopic exam Overall: tympanic membranes clear 03/21/2015 None Full Exam - General 1994 Ears/Nose/Throat lips/teeth/gingiva Overall: benign lips 03/21/2015 None Full Exam - General 1994 Ears/Nose/Throat lips/teeth/gingiva Overall: normal dentition 03/21/2015 None Full Exam - General 1994 Ears/Nose/Throat oral cavity/pharynx/larynx Overall: oral mucosa clear 03/21/2015 None Full Exam - General 1994 Ears/Nose/Throat oral cavity/pharynx/larynx Overall: oropharyngeal mucosa clear 03/21/2015 None Full Exam - General 1994 Ears/Nose/Throat oral cavity/pharynx/larynx Overall: hypopharynx benign 03/21/2015 None Full Exam - General 1994 Ears/Nose/Throat oral cavity/pharynx/larynx Overall: no masses 03/21/2015 None Full Exam - General 1994 Respiratory auscultation Overall: breath sounds clear bilaterally 03/21/2015 None Full Exam - General 1994 Respiratory respiratory effort/rhythm Overall: no retractions 03/21/2015 None Full Exam - General 1994 Respiratory respiratory effort/rhythm Overall: normal rate 03/21/2015 None Full Exam - General 1994 Cardiovascular extremities Overall: no clubbing 03/21/2015 None Full Exam - General 1994 Cardiovascular auscultation of heart Overall: regular rate 03/21/2015 None Full Exam - General 1994 Cardiovascular auscultation of heart Overall: normal heart sounds 03/21/2015 None Full Exam - General 1994 Abdomen abdominal exam Overall: no tenderness 03/21/2015 None Full Exam - General 1994 Abdomen abdominal exam Overall: normal bowel sounds 03/21/2015 None Full Exam - General 1994 Lymphatic neck nodes Overall: anterior cervical chain benign 03/21/2015 None Full Exam - General 1994 Lymphatic neck nodes Overall: posterior cervical chain benign 03/21/2015 None Full Exam - General 1994 Musculoskeletal spine, ribs and pelvis Overall: spine benign 03/21/2015 None Full Exam - General 1994 Musculoskeletal spine, ribs and pelvis Overall: sacroiliac joint benign 03/21/2015 None Full Exam - General 1994 Musculoskeletal spine, ribs and pelvis Overall: good posture 03/21/2015 None Full Exam - General 1994 Musculoskeletal head and neck Overall: head atraumatic 03/21/2015 None Full Exam - General 1994 Musculoskeletal head and neck Overall: cervical spine benign 03/21/2015 None Full Exam - General 1994 Neurologic deep tendon reflexes Overall: deep tendon reflexes intact 03/21/2015 None Full Exam - General 1994 Neurologic cranial nerves Overall: crainial nerves 2 - 12 grossly intact 03/21/2015 None Full Exam - General 1994 Psychiatric orientation/consciousness Overall: oriented to person, place and time 03/21/2015 None Full Exam - General 1994 Psychiatric mood and affect Overall: normal mood and affect 03/21/2015 None Full Exam - General 1994 Constitutional general appearance Development: well developed 01/05/2015 None Full Exam - General 1994 Constitutional general appearance Development: appears stated age 0901/05/2015 None Full Exam - General 1994 Constitutional general appearance Hygiene/Attention to Grooming: good hygiene 01/05/2015 None Full Exam - General 1994 Eyes conjunctiva /eyelids Overall: conjunctiva clear 01/05/2015 None Full Exam - General 1994 Eyes conjunctiva /eyelids Overall: cornea clear 01/05/2015 None Full Exam - General 1994 Eyes conjunctiva /eyelids Overall: eyelids normal 01/05/2015 None Full Exam - General 1994 Eyes pupils and irises Overall: pupils equal, round, reactive to light and accomodation 01/05/2015 None Full Exam - General 1994 Ears/Nose/Throat otoscopic exam Overall: external auditory canals clear 01/05/2015 None Full Exam - General 1994 Ears/Nose/Throat otoscopic exam Overall: tympanic membranes clear 01/05/2015 None Full Exam - General 1994 Ears/Nose/Throat lips/teeth/gingiva Overall: benign lips 01/05/2015 None Full Exam - General 1994 Ears/Nose/Throat lips/teeth/gingiva Overall: normal dentition 01/05/2015 None Full Exam - General 1994 Ears/Nose/Throat oral cavity/pharynx/larynx Overall: oral mucosa clear 01/05/2015 None Full Exam - General 1994 Ears/Nose/Throat oral cavity/pharynx/larynx Overall: oropharyngeal mucosa clear 01/05/2015 None Full Exam - General 1994 Ears/Nose/Throat oral cavity/pharynx/larynx Overall: hypopharynx benign 01/05/2015 None Full Exam - General 1994 Ears/Nose/Throat oral cavity/pharynx/larynx Overall: no masses 01/05/2015 None Full Exam - General 1994 Respiratory auscultation Overall: breath sounds clear bilaterally 01/05/2015 None Full Exam - General 1994 Respiratory respiratory effort/rhythm Overall: no retractions 01/05/2015 None Full Exam - General 1994 Respiratory respiratory effort/rhythm Overall: normal rate 01/05/2015 None Full Exam - General 1994 Cardiovascular extremities Overall: no clubbing 01/05/2015 None Full Exam - General 1994 Cardiovascular auscultation of heart Overall: regular rate 01/05/2015 None Full Exam - General 1994 Cardiovascular auscultation of heart Overall: normal heart sounds 01/05/2015 None Full Exam - General 1994 Abdomen abdominal exam Overall: no tenderness 01/05/2015 None Full Exam - General 1994 Abdomen abdominal exam Overall: normal bowel sounds 01/05/2015 None Full Exam - General 1994 Lymphatic neck nodes Overall: anterior cervical chain benign 01/05/2015 None Full Exam - General 1994 Lymphatic neck nodes Overall: posterior cervical chain benign 01/05/2015 None Full Exam - General 1994 Musculoskeletal spine, ribs and pelvis Overall: spine benign 01/05/2015 None Full Exam - General 1994 Musculoskeletal spine, ribs and pelvis Overall: sacroiliac joint benign 01/05/2015 None Full Exam - General 1994 Musculoskeletal spine, ribs and pelvis Overall: good posture 01/05/2015 None Full Exam - General 1994 Musculoskeletal head and neck Overall: head atraumatic 01/05/2015 None Full Exam - General 1994 Musculoskeletal head and neck Overall: cervical spine benign 01/05/2015 None Full Exam - General 1994 Neurologic deep tendon reflexes Overall: deep tendon reflexes intact 01/05/2015 None Full Exam - General 1994 Neurologic cranial nerves Overall: crainial nerves 2 - 12 grossly intact 01/05/2015 None Full Exam - General 1994 Psychiatric orientation/consciousness Overall: oriented to person, place and time 01/05/2015 None Full Exam - General 1994 Psychiatric mood and affect Overall: normal mood and affect 01/05/2015 None Full Exam - General 1994 Constitutional general appearance Development: well developed 10/06/2014 None Full Exam - General 1994 Constitutional general appearance Development: appears stated age 0610/06/2014 None Full Exam - General 1994 Constitutional general appearance Hygiene/Attention to Grooming: good hygiene 10/06/2014 None Full Exam - General 1994 Eyes conjunctiva /eyelids Overall: conjunctiva clear 10/06/2014 None Full Exam - General 1994 Eyes conjunctiva /eyelids Overall: cornea clear 10/06/2014 None Full Exam - General 1994 Eyes conjunctiva /eyelids Overall: eyelids normal 10/06/2014 None Full Exam - General 1994 Eyes pupils and irises Overall: pupils equal, round, reactive to light and accomodation 10/06/2014 None Full Exam - General 1994 Ears/Nose/Throat otoscopic exam Overall: external auditory canals clear 10/06/2014 None Full Exam - General 1994 Ears/Nose/Throat otoscopic exam Overall: tympanic membranes clear 10/06/2014 None Full Exam - General 1994 Ears/Nose/Throat lips/teeth/gingiva Overall: benign lips 10/06/2014 None Full Exam - General 1994 Ears/Nose/Throat lips/teeth/gingiva Overall: normal dentition 10/06/2014 None Full Exam - General 1994 Ears/Nose/Throat oral cavity/pharynx/larynx Overall: oral mucosa clear 10/06/2014 None Full Exam - General 1994 Ears/Nose/Throat oral cavity/pharynx/larynx Overall: oropharyngeal mucosa clear 10/06/2014 None Full Exam - General 1994 Ears/Nose/Throat oral cavity/pharynx/larynx Overall: hypopharynx benign 10/06/2014 None Full Exam - General 1994 Ears/Nose/Throat oral cavity/pharynx/larynx Overall: no masses 10/06/2014 None Full Exam - General 1994 Respiratory auscultation Overall: breath sounds clear bilaterally 10/06/2014 None Full Exam - General 1994 Respiratory respiratory effort/rhythm Overall: no retractions 10/06/2014 None Full Exam - General 1994 Respiratory respiratory effort/rhythm Overall: normal rate 10/06/2014 None Full Exam - General 1994 Cardiovascular extremities Overall: no clubbing 10/06/2014 None Full Exam - General 1994 Cardiovascular auscultation of heart Overall: regular rate 10/06/2014 None Full Exam - General 1994 Cardiovascular auscultation of heart Overall: normal heart sounds 10/06/2014 None Full Exam - General 1994 Abdomen abdominal exam Overall: no tenderness 10/06/2014 None Full Exam - General 1994 Abdomen abdominal exam Overall: normal bowel sounds 10/06/2014 None Full Exam - General 1994 Lymphatic neck nodes Overall: anterior cervical chain benign 10/06/2014 None Full Exam - General 1994 Lymphatic neck nodes Overall: posterior cervical chain benign 10/06/2014 None Full Exam - General 1994 Musculoskeletal spine, ribs and pelvis Overall: spine benign 10/06/2014 None Full Exam - General 1994 Musculoskeletal spine, ribs and pelvis Overall: sacroiliac joint benign 10/06/2014 None Full Exam - General 1994 Musculoskeletal spine, ribs and pelvis Overall: good posture 10/06/2014 None Full Exam - General 1994 Musculoskeletal head and neck Overall: head atraumatic 10/06/2014 None Full Exam - General 1994 Musculoskeletal head and neck Overall: cervical spine benign 10/06/2014 None Full Exam - General 1994 Neurologic deep tendon reflexes Overall: deep tendon reflexes intact 10/06/2014 None Full Exam - General 1994 Neurologic cranial nerves Overall: crainial nerves 2 - 12 grossly intact 10/06/2014 None Full Exam - General 1994 Psychiatric orientation/consciousness Overall: oriented to person, place and time 10/06/2014 None Full Exam - General 1994 Psychiatric mood and affect Overall: normal mood and affect 10/06/2014 None Full Exam - General 1994 Integument inspection of skin Rash/Lesions: surgical site 10/06/2014 neck and left knee - healing Procedures Procedure Codes Date 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 3-[address]: [id number] CPT-4: G0436 02/04/2017 ADMIN INFLUENZA VIRUS VAC CPT-4: G0008 02/04/2017 FLU VAC NO PRSV 4 ROSETTE 3 YRS+ CPT-4: 63823 02/04/2017 PPPS, SUBSEQ VISIT CPT -4: G0439 10/18/2016 [employer]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 3-[address]: 366824656 CPT-4: G0436 10/03/2016 [employer]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 3-[address]: 869405427 CPT-4: G0436 07/02/2016 [employer]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 3-[address]: 350866639 CPT-4: G0436 04/04/2016 [employer]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 3-[address]: 100442666 CPT-4: G0436 01/04/2016 ADMIN INFLUENZA VIRUS VAC CPT-4: G0008 01/04/2016 [address] VACCINE SNOMED CT: 43649026 CPT-4: G0009 01/04/2016 PNEUMOCOCCAL VACC [address]: 59150606 CPT-4: 19253 01/04/2016 FLU VACC 4 ROSETTE 3 YRS PLUS IM SNOMED CT: 84713922 CPT-4: 65629 01/04/2016 [employer]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 3-[address]: 045948311 CPT-4: G0436 10/04/2015 [employer]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 3-[address]: 303608116 CPT-4: G0436 08/30/2015 [employer]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 3-[address]: 907499523 CPT-4: G0436 08/02/2015 ADMIN INFLUENZA VIRUS VAC CPT-4: G0008 01/05/2015 FLU VACC 4 ROSETTE 3 YRS PLUS IM Formatting Model/CDA Sections, Assigned to SNOMED CT: 29389678 CPT-4: 87700Vdsvbmd 01/05/2015 Vital Signs Date Vital 02/04/2017 Blood Pressure 1: 128/74 Code : 8480-6 BMI: 28.3 Code : 19896-8 Heart Rate 1 : 63 bpm Height: 6' SpO2: 96% Weight: 209 lbs 10/18/2016 BMI: 27.7 Code: 19745-4 Height: 6' Weight: 204 lbs 10/03/2016 Blood Pressure 1: 118/70 Code : 8480-6 BMI: 27.7 Code : 93790-5 Heart Rate 1 : 58 bpm Height: 6' SpO2: 95% Weight: 204 lbs 07/02/2016 Blood Pressure 1: 104/64 Code : 8480-6 BMI: 28.5 Code : 42822-5 Heart Rate 1 : 63 bpm Height: 6' SpO2: 98% Weight: 210 lbs 04/04/2016 Blood Pressure 1: 116/62 Code : 8480-6 BMI: 29.9 Code : 11339-5 Heart Rate 1 : 59 bpm Height: 6' SpO2: 98% Weight: 220 lbs 8 oz 01/04/2016 Blood Pressure 1: 136/78 Code : 8480-6 BMI: 29.6 Code : 77273-6 Heart Rate 1 : 55 bpm Height: 6' SpO2: 97% Weight: 218 lbs 10/04/2015 Blood Pressure 1: 130/80 Code : 8480-6 BMI: 29.3 Code : 13335-8 Heart Rate 1 : 69 bpm Height: 6' SpO2: 97% Weight: 216 lbs 08/30/2015 Blood Pressure 1: 112/64 Code : 8480-6 BMI: 30.4 Code : 36942-6 Heart Rate 1 : 68 bpm Height: 6' SpO2: 95% Weight: 224 lbs 8 oz 08/02/2015 Blood Pressure 1: 120/70 Code : 8480-6 BMI: 30.1 Code : 28772-0 Heart Rate 1 : 55 bpm Height: 6' SpO2: 97% Weight: 222 lbs 04/21/2015 Blood Pressure 1: 160/86 Code : 8480-6 Blood Pressure 1: 138/82 Code: 8480-6 BMI: 30.9 Code: 36708-6 Heart Rate 1: 96 bpm Height: 6' SpO2: 96% Weight: 228 lbs 03/21/2015 Blood Pressure 1: 124/82 Code : 8480-6 BMI: 30.0 Code : 76897-8 Heart Rate 1 : 78 bpm Height: 6' SpO2: 98% Weight: 221 lbs 01/05/2015 Blood Pressure 1: 138/78 Code : 8480-6 BMI: 29.3 Code : 25486-6 Heart Rate 1 : 61 bpm Height: 6' SpO2: 98% Weight: 216 lbs 10/06/2014 Blood Pressure 1: 130/78 Code : 8480-6 BMI: 29.3 Code : 94301-1 Heart Rate 1 : 71 bpm Height: 6' SpO2: 97% Weight: 216 lbs Functional Status No Functional Status data History of Present Illness Symptom Name Status Result Effective Date Notes back pain Location diffusely 02/04/2017 low back pain, takes hydrocodone back pain Location lumbar spine 02/04/2017 None back pain Onset and Resolution ongoing 02/04/2017 None back pain Limitation on Activities moderately limits activities 02/04/2017 None back pain Triggers no known associated factors 02/04/2017 None back pain Alleviating Factors medication 02/04/2017 None back pain Initial treatment medication 02/04/2017 None back pain Radiating down left leg 02/04/2017 None hypertension Onset and Resolution ongoing 02/04/2017 None hypertension Onset of Symptom during adulthood 02/04/2017 None hypertension Blood Pressure Values patient checking blood pressure at home - did not bring in readings 02/04/2017 -Checks occasionally hypertension Alleviating Factors medication 02/04/2017 None hypertension Pertinent Findings dizziness 02/04/2017 when he stands up hypertension Pertinent Findings dyspnea 02/04/2017 -gets tired quickly hypertension Pertinent Findings edema 02/04/2017 in his left leg- intermittent knee pain Location on the left 02/04/2017 (worse) knee pain Location on the right 02/04/2017 None knee pain Alleviating Factors joint immobilizer 02/04/2017 None knee pain Exacerbating Factors exertion 02/04/2017 None knee pain Exacerbating Factors weight bearing 02/04/2017 None vaccination against influenza Location deltoid-Lt 02/04/2017 None Annual Medicare Wellness Exam Alcohol Use does not drink any alcohol 10/18/2016 None Annual Medicare Wellness Exam Aspirin Use yes 10/18/2016 81mg Annual Medicare Wellness Exam Blood Glucose (self reported) don't know 10/18/2016 None Annual Medicare Wellness Exam Blood Pressure (self reported ) don't know 10/18/2016 None Annual Medicare Wellness Exam Cholesterol (self reported) don't know 10/18/2016 None Annual Medicare Wellness Exam Depression (last 6 months) almost never 10/18/2016 None Annual Medicare Wellness Exam Depression or Hopelessness almost never 10/18/2016 None Annual Medicare Wellness Exam Describe Your Health fair 10/18/2016 None Annual Medicare Wellness Exam Exercise Habits exercises 1 days per week 10/18/2016 None Annual Medicare Wellness Exam Handling Stress usually manny effectively 10/18/2016 None Annual Medicare Wellness Exam Hemaglobin A-1C (self reported ) don't know 10/18/2016 None Annual Medicare Wellness Exam Hours of Sleep 6-8 10/18/2016 None Annual Medicare Wellness Exam Interaction with Friends yes 10/18/2016 None Annual Medicare Wellness Exam Interests & Pleasure almost never 10/18/2016 None Annual Medicare Wellness Exam Life Satisfaction satisfied 10/18/2016 None Annual Medicare Wellness Exam Motor Vehicle Safety always fastens seat belt: y 10/18/2016 None Annual Medicare Wellness Exam Nutrition servings of vegetables / fruit per day: few 10/18/2016 None Annual Medicare Wellness Exam Smoking and Tobacco Use cigarette smoker 10/18/2016 None Annual Medicare Wellness Exam Social & Emotional Support usually 10/18/2016 None Annual Medicare Wellness Exam Stress some of the time 10/18/2016 None Annual Medicare Wellness Exam Sun Exposure protects skin when outdoors: n 10/18/2016 None back pain Location diffusely 10/03/2016 low back pain, takes hydrocodone back pain Location lumbar spine 10/03/2016 None back pain Onset and Resolution ongoing 10/03/2016 None back pain Limitation on Activities moderately limits activities 10/03/2016 None back pain Triggers no known associated factors 10/03/2016 None back pain Alleviating Factors medication 10/03/2016 None back pain Initial treatment medication 10/03/2016 None back pain Radiating down left leg 10/03/2016 None hypertension Onset and Resolution ongoing 10/03/2016 None hypertension Onset of Symptom during adulthood 10/03/2016 None hypertension Blood Pressure Values patient checking blood pressure at home - did not bring in readings 10/03/2016 -Checks occasionally hypertension Alleviating Factors medication 10/03/2016 None hypertension Pertinent Findings dizziness 10/03/2016 when he stands up hypertension Pertinent Findings dyspnea 10/03/2016 -gets tired quickly hypertension Pertinent Findings edema 10/03/2016 in his left leg- intermittent knee pain Location on the left 10/03/2016 (worse) knee pain Location on the right 10/03/2016 None knee pain Alleviating Factors joint immobilizer 10/03/2016 None knee pain Exacerbating Factors exertion 10/03/2016 None knee pain Exacerbating Factors weight bearing 10/03/2016 None back pain Location diffusely 07/02/2016 low back pain, takes hydrocodone back pain Location lumbar spine 07/02/2016 None back pain Onset and Resolution ongoing 07/02/2016 None back pain Limitation on Activities moderately limits activities 07/02/2016 None back pain Triggers no known associated factors 07/02/2016 None back pain Alleviating Factors medication 07/02/2016 None back pain Initial treatment medication 07/02/2016 None hypertension Onset and Resolution ongoing 07/02/2016 None hypertension Onset of Symptom during adulthood 07/02/2016 None hypertension Blood Pressure Values patient checking blood pressure at home - did not bring in readings 07/02/2016 -Checks occasionally hypertension Alleviating Factors medication 07/02/2016 None hypertension Pertinent Findings dizziness 07/02/2016 when he stands up hypertension Pertinent Findings dyspnea 07/02/2016 -gets tired quickly hypertension Pertinent Findings edema 07/02/2016 in his left leg- intermittent knee pain Location on the left 07/02/2016 (worse) knee pain Location on the right 07/02/2016 None knee pain Alleviating Factors joint immobilizer 07/02/2016 None knee pain Exacerbating Factors exertion 07/02/2016 None knee pain Exacerbating Factors weight bearing 07/02/2016 None hypothyroid Onset and Resolution ongoing 07/02/2016 None hypothyroid Alleviating Factors medication 07/02/2016 None back pain Radiating down left leg 07/02/2016 None back pain Location diffusely 04/04/2016 low back pain, takes hydrocodone back pain Location lumbar spine 04/04/2016 None back pain Onset and Resolution ongoing 04/04/2016 None back pain Limitation on Activities moderately limits activities 04/04/2016 None back pain Triggers no known associated factors 04/04/2016 None back pain Alleviating Factors medication 04/04/2016 None back pain Initial treatment medication 04/04/2016 None hypertension Onset and Resolution ongoing 04/04/2016 None hypertension Onset of Symptom during adulthood 04/04/2016 None hypertension Blood Pressure Values patient checking blood pressure at home - did not bring in readings 04/04/2016 -Checks occasionally hypertension Alleviating Factors medication 04/04/2016 None hypertension Pertinent Findings dizziness 04/04/2016 when he stands up hypertension Pertinent Findings dyspnea 04/04/2016 None hypertension Pertinent Findings edema 04/04/2016 in his left leg- intermittent knee pain Location on the left 04/04/2016 (worse) knee pain Alleviating Factors joint immobilizer 04/04/2016 None knee pain Exacerbating Factors exertion 04/04/2016 None knee pain Exacerbating Factors weight bearing 04/04/2016 None hypothyroid Onset and Resolution ongoing 04/04/2016 None hypothyroid Alleviating Factors medication 04/04/2016 None knee pain Location on the right 04/04/2016 None back pain Location diffusely 01/04/2016 low back pain, takes hydrocodone back pain Location lumbar spine 01/04/2016 None back pain Onset and Resolution ongoing 01/04/2016 None back pain Limitation on Activities moderately limits activities 01/04/2016 None back pain Triggers no known associated factors 01/04/2016 None back pain Alleviating Factors medication 01/04/2016 None back pain Initial treatment medication 01/04/2016 None hypertension Onset and Resolution ongoing 01/04/2016 None hypertension Onset of Symptom during adulthood 01/04/2016 None hypertension Blood Pressure Values patient checking blood pressure at home - did not bring in readings 01/04/2016 -Checks occasionally hypertension Alleviating Factors medication 01/04/2016 None hypertension Pertinent Findings Denies dizziness 01/04/2016 None hypertension Pertinent Findings Denies dyspnea 01/04/2016 None hypertension Pertinent Findings Denies edema 01/04/2016 None knee pain Location on the left 01/04/2016 None knee pain Alleviating Factors joint immobilizer 01/04/2016 None knee pain Exacerbating Factors exertion 01/04/2016 None knee pain Exacerbating Factors weight bearing 01/04/2016 None back pain Location diffusely 10/04/2015 low back pain, takes hydrocodone back pain Location lumbar spine 10/04/2015 None back pain Onset and Resolution ongoing 10/04/2015 None back pain Limitation on Activities moderately limits activities 10/04/2015 None back pain Triggers no known associated factors 10/04/2015 None back pain Alleviating Factors medication 10/04/2015 None back pain Initial treatment medication 10/04/2015 None back pain Radiating down left leg 10/04/2015 None hypertension Onset and Resolution ongoing 10/04/2015 None hypertension Onset of Symptom during adulthood 10/04/2015 None hypertension Blood Pressure Values patient checking blood pressure at home - did not bring in readings 10/04/2015 None hypertension Alleviating Factors medication 10/04/2015 None hypertension Pertinent Findings Denies dizziness 10/04/2015 None hypertension Pertinent Findings Denies dyspnea 10/04/2015 None hypertension Pertinent Findings Denies edema 10/04/2015 None knee pain Location on the left 10/04/2015 None knee pain Alleviating Factors joint immobilizer 10/04/2015 None knee pain Exacerbating Factors exertion 10/04/2015 None knee pain Exacerbating Factors weight bearing 10/04/2015 None back pain Location diffusely 08/30/2015 low back pain, takes hydrocodone prescribed by the [place] back pain Location lumbar spine 08/30/2015 None back pain Onset and Resolution ongoing 08/30/2015 None back pain Triggers no known associated factors 08/30/2015 None back pain Alleviating Factors medication 08/30/2015 None back pain Initial treatment medication 08/30/2015 None back pain Radiating down left leg 08/30/2015 None hypertension Onset and Resolution ongoing 08/30/2015 None hypertension Onset of Symptom during adulthood 08/30/2015 None hypertension Blood Pressure Values patient checking blood pressure at home - did not bring in readings 08/30/2015 None hypertension Alleviating Factors medication 08/30/2015 None hypertension Pertinent Findings Denies dizziness 08/30/2015 None hypertension Pertinent Findings Denies dyspnea 08/30/2015 None hypertension Pertinent Findings Denies edema 08/30/2015 None back pain Limitation on Activities moderately limits activities 08/30/2015 None back pain Location diffusely 08/02/2015 low back pain, takes hydrocodone prescribed by the [place] back pain Location lumbar spine 08/02/2015 None back pain Onset and Resolution ongoing 08/02/2015 None back pain Limitation on Activities does not limit activities 08/02/2015 None back pain Triggers no known associated factors 08/02/2015 None back pain Alleviating Factors medication 08/02/2015 None back pain Initial treatment medication 08/02/2015 None back pain Radiating down left leg 08/02/2015 None hypertension Onset and Resolution ongoing 08/02/2015 None hypertension Onset of Symptom during adulthood 08/02/2015 None hypertension Blood Pressure Values patient checking blood pressure at home - did not bring in readings 08/02/2015 None hypertension Alleviating Factors medication 08/02/2015 None hypertension Pertinent Findings dizziness 08/02/2015 -one episode of vertigo hypertension Pertinent Findings dyspnea 08/02/2015 -tires easily hypertension Pertinent Findings Denies edema 08/02/2015 None hyperlipidemia Onset and Resolution ongoing 08/02/2015 None hyperlipidemia Onset of Symptom during adulthood 08/02/2015 None hyperlipidemia Alleviating Factors medication 08/02/2015 None hyperlipidemia Exacerbating Factors diet 08/02/2015 None back pain Location diffusely 04/21/2015 low back pain, takes hydrocodone initially prescribed by the [place] back pain Location lumbar spine 04/21/2015 None back pain Onset and Resolution ongoing 04/21/2015 None back pain Limitation on Activities does not limit activities 04/21/2015 None back pain Triggers no known associated factors 04/21/2015 None back pain Alleviating Factors medication 04/21/2015 None back pain Initial treatment medication 04/21/2015 None back pain Sports Participation not significant 04/21/2015 None chest pain/pressure Location in the epigastric area 03/21/2015 - he reports that the pain occurs after he sleeps on his stomach - it is tender to touch chest pain/pressure Location in the substernal area 03/21/2015 None chest pain/pressure Quality acute 03/21/2015 None chest pain/pressure Pertinent Findings nausea 03/21/2015 Also, had diaphoresis and hot flashes chest pain/pressure Onset of Symptom 3-4 days ago 03/21/2015 None chest pain/pressure Onset and Resolution sudden in onset 03/21/2015 None abdominal pain Location in the LLQ 03/21/2015 None abdominal pain Radiating the inguinal area 03/21/2015 None abdominal pain Quality chronic 03/21/2015 None abdominal pain Quality intermittent 03/21/2015 None abdominal pain Onset and Resolution ongoing 03/21/2015 None abdominal pain Onset of Symptom _ years ago 03/21/2015 None joint complaint Quality aching 01/05/2015 left hip joint complaint Quality chronic 01/05/2015 None joint complaint Onset and Resolution ongoing 01/05/2015 None joint complaint Triggers no known associated factors 01/05/2015 None joint complaint Alleviating Factors medication 01/05/2015 None joint complaint Exacerbating Factors activity 01/05/2015 None blood pressure followup Quality chronic 01/05/2015 None blood pressure followup Onset and Resolution ongoing 01/05/2015 None blood pressure followup Onset of Symptom during adulthood 01/05/2015 None blood pressure followup Blood Pressure Values not checking blood pressure at home 01/05/2015 None blood pressure followup Frequency of Episodes unchanged 01/05/2015 None blood pressure followup Triggers stress 01/05/2015 None blood pressure followup Alleviating Factors medication 01/05/2015 None blood pressure followup Alleviating Factors medication 10/06/2014 None blood pressure followup Blood Pressure Values not checking blood pressure at home 10/06/2014 None blood pressure followup Frequency of Episodes unchanged 10/06/2014 None blood pressure followup Onset and Resolution ongoing 10/06/2014 None blood pressure followup Onset of Symptom during adulthood 10/06/2014 None blood pressure followup Quality chronic 10/06/2014 None blood pressure followup Triggers stress 10/06/2014 None joint complaint Quality aching 10/06/2014 None joint complaint Quality chronic 10/06/2014 None joint complaint Onset and Resolution ongoing 10/06/2014 None joint complaint Triggers no known associated factors 10/06/2014 None joint complaint Alleviating Factors medication 10/06/2014 None joint complaint Exacerbating Factors activity 10/06/2014 None Advance Directives No Advance Directive data Encounters Encounter Performer Location Codes Date ([id number]) 68727 EST. PATIENT, LEVEL IV Diagnosis: Essential (primary) hypertension[ICD10: I10] Diagnosis: Low back pain[ICD10: M54.5] Diagnosis: Iliotibial band syndrome, right leg[ICD10: M76.31] Diagnosis: Chronic pain syndrome[ICD10: G89.4] Diagnosis: Encounter for immunization[ICD10: Z23] [facility] CPT-4: 09876 02/04/2017 ([id number]) 86529 EST. PATIENT, LEVEL IV Diagnosis: Essential (primary) hypertension[ICD10: I10] Diagnosis: Chronic pain syndrome[ICD10: G89.4] Diagnosis: Low back pain[ICD10: M54.5] Diagnosis: Pain in right knee[ICD10: M25.561] Diagnosis: Pain in left knee[ICD10: M25.562] [facility] CPT-4: 46851 10/03/2016 ([id number]) 08725 EST. PATIENT, LEVEL IV Diagnosis: Essential (primary) hypertension[ICD10: I10] Diagnosis: Mixed hyperlipidemia[ICD10: E78.2] Diagnosis: Chronic pain syndrome[ICD10: G89.4] Diagnosis: Atrophy of thyroid (acquired)[ICD10: E03.4] Pepper Baeza MD, [facility] CPT-4: 94601 07/02/2016 ([id number]) 94129 EST. PATIENT, LEVEL IV Diagnosis: Essential (primary) hypertension[ICD10: I10] Diagnosis: Tobacco use[ICD10: Z72.0] Diagnosis: Chronic pain syndrome[ICD10: G89.4] Pepper Baeza MD, [facility] CPT-4: 69699 04/04/2016 ([id number]) 14769 EST. PATIENT, LEVEL IV Diagnosis: Encounter for immunization[ICD10: Z23] Diagnosis: Essential (primary) hypertension[ICD10: I10] Diagnosis: Chronic pain syndrome[ICD10: G89.4] Diagnosis: Tobacco use[ICD10: Z72.0] Diagnosis: Mixed hyperlipidemia[ICD10: E78.2] Diagnosis: Gastro-esophageal reflux disease without esophagitis[ICD10: K21.9] Pepper Baeza MD, [facility] CPT-4: 06302 01/04/2016 ([id number]) 05525 EST. PATIENT, LEVEL IV Diagnosis: Essential (primary) hypertension[ICD10: I10] Diagnosis: Chronic pain syndrome[ICD10: G89.4] Diagnosis: Tobacco use[ICD10: Z72.0] Pepper Baeza MD, [facility] CPT-4: 82462 10/04/2015 ([id number]) 81507 EST. PATIENT, LEVEL III Diagnosis: Chronic pain syndrome[ICD10: G89.4] Diagnosis: Low back pain[ICD10: M54.5] Diagnosis: Tobacco use[ICD10: Z72.0] Diagnosis: Mixed hyperlipidemia[ICD10: E78.2] Pepper Baeza MD, [facility] CPT-4: 33393 08/30/2015 ([id number]) 17641 EST. PATIENT, LEVEL IV Diagnosis: Essential (primary) hypertension[ICD10: I10] Diagnosis: Low back pain[ICD10: M54.5] Diagnosis: Chronic pain syndrome[ICD10: G89.4] Pepper Baeza MD, [facility] CPT-4: 33307 08/02/2015 ([id number]) 76102 EST. PATIENT, LEVEL III Diagnosis: Essential (primary) hypertension[ICD10: I10] Diagnosis: Low back pain[ICD10: M54.5] Elaine Baeza MD, [facility] CPT-4: 53018 04/21/2015 ([id number]) 38527 EST. PATIENT, LEVEL IV Diagnosis: Epigastric pain[ICD10: R10.13] Diagnosis: Essential (primary) hypertension[ICD10: I10] Diagnosis: Gastro-esophageal reflux disease without esophagitis[ICD10: K21.9] Pepper Baeza MD, [facility] CPT-4: 06304 03/21/2015 ([id number]) 07679 EST. PATIENT, LEVEL III Diagnosis: ESSENTIAL HYPERTENSION[ICD9: 401.9] Diagnosis: SCIATICA[ICD9: 724.3] Pepper Baeza MD, [facility] CPT-4: 25199 01/05/2015 ([id number]) OFFICE VISIT, NEW - LEVEL 4 Diagnosis: ESSENTIAL HYPERTENSION[ICD9: 401.9] Diagnosis: HYPOTHYROIDISM[ICD9: 244.9] Diagnosis: ESOPHAGEAL REFLUX[ICD9: 530.81] Pepper Baeza MD, [facility] CPT- 4: 13163 10/06/2014 Plan of Care Planned Activity Notes Codes Status Date Visit Plan: Hypertension - well controlled - continue with current medications, continue with no added salt diet. Pt has been encouraged to exercise daily. The pt has been advised to call the office if there are any acute concerns about change in blood pressure readings at home. Iliotibial band syndrome - recommended stretches - instructed patient in stretches for iliotibial band. Chronic Back pain - the patient was counseled to always first attempt to use modalities other than pain medication for alleviation of the muscle spasms and pain. The patient was also encouraged to continue with back exercises as previously directed. Pt is to use pain medication as directed. If pain medications are used inappropriately or early refills are requested, the patient understands that is a breech of trust/contract and could result in the patient's termination from this medical practice. flu shot given in clinic today 02/04/2017 Appointment: Pepper Baeza WPtel: [address] [place], [place] [id number] (30 min) Complex 02/04/2017 Patient Education: Patient Medication Summary Completed 02/04/2017 Patient Education: Smoking and Tobacco Addiction Completed 02/04/2017 Visit Plan: Medicare Exam - today we discussed the patients past history, immunizations, preventative exams/evaluations - colonoscopy, fecal occult blood testing, routine labs for renal function, glucose, cholesterol, osteoporosis evaluations, cardiovascular testing and cancer screenings. We have also discussed mental health and the signs/symptoms of depression. The patient was advised of home safety evaluations and the need to make sure that as the aging process continues, we need to be aware of different ways to make the home a safer place to reside. The patient has also been counseled that exercise is necessary - and of utmost importance as we age to help decrease fall risk and to maintain independence in the home. Today we discussed the need for the patient to create paperwork for Advanced directives as well as for the patient to provide this office with a copy of her DOPA paperwork for health care surrogate. 10/18/2016 Appointment: Parul Collier [facility]Ptel[facility] [phone] [facility] [facility]ness Visit 10/18/2016 Patient Education: Patient Medication Summary Completed 10/18/2016 Patient Education: Smoking and Tobacco Addiction Completed 10/18/2016 Visit Plan: Low back pain - and knee pain - recommended a referal to [facility] physical therapy for strengthening, knee pain, back pain - would like aqua therapy. Hypertension - well controlled - continue with current medications, continue with no added salt diet. Pt has been encouraged to exercise daily. The pt has been advised to call the office if there are any acute concerns about change in blood pressure readings at home. Cool lower extremities - recommended pt to have evaluation from Dr. Subramanian at next office visit - with history of CAD, may have PAD as well, need to have work-up, may need stenting. 10/03/2016 Appointment: Pepper Baeza [facility]Ptel: [phone] [facility] (30 min) Complex 10/03/2016 Patient Education: Patient Medication Summary Completed 10/03/2016 Patient Education: Smoking and Tobacco Addiction Completed 10/03/2016 Visit Plan: Hypertension - well controlled - continue with current medications, continue with no added salt diet. Pt has been encouraged to exercise daily. The pt has been advised to call the office if there are any acute concerns about change in blood pressure readings at home. Hyperlipidemia - pt has been counseled about appropriate diet, exercise, and need for low fat food choices. I have discussed the need for the patient to take medications as prescribed. If the patient has negative side effects from the medication, they are to CALL the office and not abruptly discontinue the medication without discussion with a practitioner in the office. We will check labs in 3-6 months for follow up on the patient's chronic medical problem and to assure normal liver response to medications. Hypothyroidism - pt with chronic hypothyroidism, continue with current medication, will monitor pt to signs or symptoms of lack of adequate supplementation. Pt is to continue with current dose of medication unless directed otherwise. Check labs at regular intervals wither q 3 months or q 6 months based on previous levels of control. Chronic pain syndrome - continue with chronic pain medication at this time. 07/02/2016 Appointment: Pepper Baeza WPtel: [phone] [facility] (30 min) Complex 07/02/2016 Patient Education: Patient Medication Summary Completed 07/02/2016 Patient Education: Smoking and Tobacco Addiction Completed 07/02/2016 Visit Plan: Hypertension - well controlled - continue with current medications, continue with no added salt diet. Pt has been encouraged to exercise daily. The pt has been advised to call the office if there are any acute concerns about change in blood pressure readings at home. Chronic Pain Syndrome - pt has chronic pain - has been maintained on current medications, has not sought out other medications, only uses PRN pain medications as directed , and understands the consequences of over-medication. Tobacco abuse - recommended stopping smoking. 04/04/2016 Appointment: Pepper Baeza WPtel: [phone] [facility] (30 min) Complex 04/04/2016 Patient Education: Patient Medication Summary Completed 04/04/2016 Patient Education: Smoking and Tobacco Addiction Completed 04/04/2016 Visit Plan: Hypertension - well controlled - continue with current medications, continue with no added salt diet. Pt has been encouraged to exercise daily. The pt has been advised to call the office if there are any acute concerns about change in blood pressure readings at home. Hyperlipidemia - pt has been counseled about appropriate diet, exercise, and need for low fat food choices. I have discussed the need for the patient to take medications as prescribed. If the patient has negative side effects from the medication, they are to CALL the office and not abruptly discontinue the medication without discussion with a practitioner in the office. We will check labs in 3-6 months for follow up on the patient's chronic medical problem and to assure normal liver response to medications. Chronic Pain Syndrome - pt has chronic pain - has been maintained on current medications, has not sought out other medications , only uses PRN pain medications as directed, and understands the consequences of over-medication. Esophageal Reflux - the patient has been counseled against excessive intake of caffeine, spicy foods, peppermint, and cinnamon - all of which can exacerbate esophageal reflux. The patient is to take medications as prescribed and call the office if the symptoms are not improving. 01/04/2016 Appointment: Pepper Baeza WPtel: [facility] (15 min) Moderate 01/04/2016 Patient Education: Patient Medication Summary Completed 01/04/2016 Patient Education: Smoking and Tobacco Addiction Completed 01/04/2016 Patient Education: Hypertension Completed 01/04/2016 Visit Plan: Hypertension - well controlled - continue with current medications, continue with no added salt diet. Pt has been encouraged to exercise daily. The pt has been advised to call the office if there are any acute concerns about change in blood pressure readings at home. Chronic Pain Syndrome - pt has chronic pain - has been maintained on current medications, has not sought out other medications, only uses PRN pain medications as directed , and understands the consequences of over-medication. 10/04/2015 Appointment: Pepper Baeza WPtel: [facility] (15 min) Moderate 10/04/2015 Patient Education: Patient Medication Summary Completed 10/04/2015 Patient Education: Smoking and Tobacco Addiction Completed 10/04/2015 Patient Education: Hypertension Completed 10/04/2015 Visit Plan: Chronic Pain Syndrome - pt has chronic pain - uncontrolled - recommended ms contin - rx given to patient for higher dose - only uses PRN pain medications as directed, and understands the consequences of over-medication. Hyperlipidemia - pt has been counseled about appropriate diet, exercise, and need for low fat food choices. I have discussed the need for the patient to take medications as prescribed. If the patient has negative side effects from the medication, they are to CALL the office and not abruptly discontinue the medication without discussion with a practitioner in the office. We will check labs in 3-6 months for follow up on the patient's chronic medical problem and to assure normal liver response to medications. 08/30/2015 Patient Education: Patient Medication Summary Completed 08/30/2015 Patient Education: Smoking and Tobacco Addiction Completed 08/30/2015 Patient Education: Obesity Completed 08/30/2015 Visit Plan: Hypertension - well controlled - continue with current medications, continue with no added salt diet. Pt has been encouraged to exercise daily. The pt has been advised to call the office if there are any acute concerns about change in blood pressure readings at home. Chronic Back pain - the patient was counseled to always first attempt to use modalities other than pain medication for alleviation of the muscle spasms and pain. The patient was also encouraged to continue with back exercises as previously directed. Pt is to use pain medication as directed. If pain medications are used inappropriately or early refills are requested, the patient understands that is a breech of trust/contract and could result in the patient's termination from this medical practice. In order to attempt to decrease the number of hydrocodone the pt receives on a monthly basis as well as improved pain control, i have recommended that he start on the following: OXYCONTIN 20MG BID Tobaccoism - recommended smoking cessation - pt is not currently interested in stopping smoking. 08/02/2015 Appointment: Pepper Baeza WPtel: [facility] (15 min) Moderate 08/02/2015 Patient Education: Patient Medication Summary Completed 08/02/2015 Patient Education: Smoking and Tobacco Addiction Completed 08/02/2015 Patient Education: Obesity Completed 08/02/2015 Appointment: (30 min) Complex 06/26/2015 Visit Plan: Chronic Back pain - the patient was counseled to always first attempt to use modalities other than pain medication for alleviation of the muscle spasms and pain. The patient was also encouraged to continue with back exercises as previously directed. Pt is to use pain medication as directed. If pain medications are used inappropriately or early refills are requested, the patient understands that is a breech of trust/ contract and could result in the patient's termination from this medical practice. Hypertension - well controlled - continue with current medications, continue with no added salt diet. Pt has been encouraged to exercise daily. The pt has been advised to call the office if there are any acute concerns about change in blood pressure readings at home. 04/21/2015 Appointment: (15 min) Moderate 04/21/2015 Patient Education: Patient Medication Summary Completed 04/21/2015 Patient Education: Hypertension Completed 04/21/2015 Visit Plan: Hypertension - well controlled - continue with current medications, continue with no added salt diet. Pt has been encouraged to exercise daily. The pt has been advised to call the office if there are any acute concerns about change in blood pressure readings at home. Esophageal Reflux - the patient has been counseled against excessive intake of caffeine, spicy foods, peppermint, and cinnamon - all of which can exacerbate esophageal reflux. The patient is to take medications as prescribed and call the office if the symptoms are not improving. 03/21/2015 Patient Education: Patient Medication Summary Completed 03/21/2015 Patient Education: Hypertension Completed 03/21/2015 Visit Plan: Hypertension - well controlled - continue with current medications, continue with no added salt diet. Pt has been encouraged to exercise daily. The pt has been advised to call the office if there are any acute concerns about change in blood pressure readings at home. Sciatica- exercises discussed with the patient, pt to continue with antiinflammatories. Pt is to call if the symptoms do not improve or if they worsen. Samples of pennsaid. Recommend referral to Dr Archuleta 01/05/2015 Visit Plan: Hypertension - well controlled - continue with current medications, continue with no added salt diet. Pt has been encouraged to exercise daily. The pt has been advised to call the office if there are any acute concerns about change in blood pressure readings at home. Sciatica- exercises discussed with the patient, pt to continue with antiinflammatories. Pt is to call if the symptoms do not improve or if they worsen. Samples of pennsaid. Recommend referral to Dr Archuleta 01/05/2015 Appointment: (30 min) Complex 01/05/2015 Patient Education: Patient Medication Summary Completed 01/05/2015 Patient Education: Hypertension Completed 01/05/2015 Visit Plan: Hypertension - well controlled - continue with current medications, continue with no added salt diet. Pt has been encouraged to exercise daily. The pt has been advised to call the office if there are any acute concerns about change in blood pressure readings at home. Hypothyroidism - pt with chronic hypothyroidism, continue with current medication, will monitor pt to signs or symptoms of lack of adequate supplementation. Pt is to continue with current dose of medication unless directed otherwise. Check labs at regular intervals wither q 3 months or q 6 months based on previous levels of control. Esophageal Reflux - the patient has been counseled against excessive intake of caffeine, spicy foods, peppermint, and cinnamon - all of which can exacerbate esophageal reflux. The patient is to take medications as prescribed and call the office if the symptoms are not improving. Arthritis- occasionally uncontrolled symptoms- recommend pt to take antiinflammatory as directed for pain control. Use tylenol for break through pain symptoms. Voltaren RX given to patient. 10/06/2014 Appointment: Pepper Baeza WPtel: [phone] [facility] [place] ([place] New Patient 10/06/2014 Patient Education: Patient Medication Summary Completed 10/06/2014 Patient Education: Hypertension Completed 10/06/2014 Instructions Comment get labs one week before your next appt . Low back pain - and knee pain - recommended a referal to [facility] physical therapy for strengthening, knee pain, back pain - would like aqua therapy. Hypertension - well controlled - continue with current medications, continue with no added salt diet. Pt has been encouraged to exercise daily. The pt has been advised to call the office if there are any acute concerns about change in blood pressure readings at home. Cool lower extremities - recommended pt to have evaluation from Dr. Subramanian at next office visit - with history of CAD, may have PAD as well, need to have work -up, may need stenting. . Hypertension - well controlled - continue with current medications, continue with no added salt diet. Pt has been encouraged to exercise daily. The pt has been advised to call the office if there are any acute concerns about change in blood pressure readings at home. Hyperlipidemia - pt has been counseled about appropriate diet, exercise, and need for low fat food choices. I have discussed the need for the patient to take medications as prescribed. If the patient has negative side effects from the medication, they are to CALL the office and not abruptly discontinue the medication without discussion with a practitioner in the office. We will check labs in 3-6 months for follow up on the patient's chronic medical problem and to assure normal liver response to medications. Chronic Pain Syndrome - pt has chronic pain - has been maintained on current medications, has not sought out other medications, only uses PRN pain medications as directed, and understands the consequences of over-medication. Esophageal Reflux - the patient has been counseled against excessive intake of caffeine, spicy foods, peppermint, and cinnamon - all of which can exacerbate esophageal reflux. The patient is to take medications as prescribed and call the office if the symptoms are not improving. . Hypertension - well controlled - continue with current medications, continue with no added salt diet. Pt has been encouraged to exercise daily. The pt has been advised to call the office if there are any acute concerns about change in blood pressure readings at home. Chronic Pain Syndrome - pt has chronic pain - has been maintained on current medications, has not sought out other medications, only uses PRN pain medications as directed, and understands the consequences of over-medication. . Hypertension - well controlled - continue with current medications, continue with no added salt diet. Pt has been encouraged to exercise daily. The pt has been advised to call the office if there are any acute concerns about change in blood pressure readings at home. Chronic Pain Syndrome - pt has chronic pain - has been maintained on current medications, has not sought out other medications, only uses PRN pain medications as directed, and understands the consequences of over-medication. Tobacco abuse - recommended stopping smoking. . Hypertension - well controlled - continue with current medications, continue with no added salt diet. Pt has been encouraged to exercise daily. The pt has been advised to call the office if there are any acute concerns about change in blood pressure readings at home. Chronic Back pain - the patient was counseled to always first attempt to use modalities other than pain medication for alleviation of the muscle spasms and pain. The patient was also encouraged to continue with back exercises as previously directed. Pt is to use pain medication as directed. If pain medications are used inappropriately or early refills are requested, the patient understands that is a breech of trust/contract and could result in the patient's termination from this medical practice. In order to attempt to decrease the number of hydrocodone the pt receives on a monthly basis as well as improved pain control, i have recommended that he start on the following: OXYCONTIN 20MG BID Tobaccoism - recommended smoking cessation - pt is not currently interested in stopping smoking. Monitor your blood pressure at home and record. Bring in your readings to your next appointment, or as directed. Call for chest pain, shortness of breath, headaches, or other concerns. . Hypertension - well controlled - continue with current medications, continue with no added salt diet. Pt has been encouraged to exercise daily. The pt has been advised to call the office if there are any acute concerns about change in blood pressure readings at home. Hypothyroidism - pt with chronic hypothyroidism, continue with current medication, will monitor pt to signs or symptoms of lack of adequate supplementation. Pt is to continue with current dose of medication unless directed otherwise. Check labs at regular intervals wither q 3 months or q 6 months based on previous levels of control. Esophageal Reflux - the patient has been counseled against excessive intake of caffeine, spicy foods, peppermint, and cinnamon - all of which can exacerbate esophageal reflux. The patient is to take medications as prescribed and call the office if the symptoms are not improving. Arthritis- occasionally uncontrolled symptoms- recommend pt to take antiinflammatory as directed for pain control. Use tylenol for break through pain symptoms. Voltaren RX given to patient. . Medicare Exam - today we discussed the patients past history, immunizations, preventative exams/evaluations - colonoscopy, fecal occult blood testing, routine labs for renal function, glucose, cholesterol, osteoporosis evaluations, cardiovascular testing and cancer screenings. We have also discussed mental health and the signs/symptoms of depression. The patient was advised of home safety evaluations and the need to make sure that as the aging process continues, we need to be aware of different ways to make the home a safer place to reside. The patient has also been counseled that exercise is necessary - and of utmost importance as we age to help decrease fall risk and to maintain independence in the home. Today we discussed the need for the patient to create paperwork for Advanced directives as well as for the patient to provide this office with a copy of her [employer] paperwork for health care surrogate. . Chronic Back pain - the patient was counseled to always first attempt to use modalities other than pain medication for alleviation of the muscle spasms and pain. The patient was also encouraged to continue with back exercises as previously directed. Pt is to use pain medication as directed. If pain medications are used inappropriately or early refills are requested, the patient understands that is a breech of trust/contract and could result in the patient's termination from this medical practice. Hypertension - well controlled - continue with current medications, continue with no added salt diet. Pt has been encouraged to exercise daily. The pt has been advised to call the office if there are any acute concerns about change in blood pressure readings at home. . Hypertension - well controlled - continue with current medications, continue with no added salt diet. Pt has been encouraged to exercise daily. The pt has been advised to call the office if there are any acute concerns about change in blood pressure readings at home. Hyperlipidemia - pt has been counseled about appropriate diet, exercise, and need for low fat food choices. I have discussed the need for the patient to take medications as prescribed. If the patient has negative side effects from the medication, they are to CALL the office and not abruptly discontinue the medication without discussion with a practitioner in the office. We will check labs in 3-6 months for follow up on the patient's chronic medical problem and to assure normal liver response to medications. Hypothyroidism - pt with chronic hypothyroidism, continue with current medication, will monitor pt to signs or symptoms of lack of adequate supplementation. Pt is to continue with current dose of medication unless directed otherwise. Check labs at regular intervals wither q 3 months or q 6 months based on previous levels of control. Chronic pain syndrome - continue with chronic pain medication at this time. . Hypertension - well controlled - continue with current medications, continue with no added salt diet. Pt has been encouraged to exercise daily. The pt has been advised to call the office if there are any acute concerns about change in blood pressure readings at home. Iliotibial band syndrome - recommended stretches - instructed patient in stretches for iliotibial band. Chronic Back pain - the patient was counseled to always first attempt to use modalities other than pain medication for alleviation of the muscle spasms and pain. The patient was also encouraged to continue with back exercises as previously directed. Pt is to use pain medication as directed. If pain medications are used inappropriately or early refills are requested, the patient understands that is a breech of trust/contract and could result in the patient's termination from this medical practice. flu shot given in clinic today . Chronic Pain Syndrome - pt has chronic pain - uncontrolled - recommended ms contin - rx given to patient for higher dose - only uses PRN pain medications as directed, and understands the consequences of over-medication. Hyperlipidemia - pt has been counseled about appropriate diet, exercise, and need for low fat food choices. I have discussed the need for the patient to take medications as prescribed. If the patient has negative side effects from the medication, they are to CALL the office and not abruptly discontinue the medication without discussion with a practitioner in the office. We will check labs in 3-6 months for follow up on the patient's chronic medical problem and to assure normal liver response to medications. . Hypertension - well controlled - continue with current medications, continue with no added salt diet. Pt has been encouraged to exercise daily. The pt has been advised to call the office if there are any acute concerns about change in blood pressure readings at home. Esophageal Reflux - the patient has been counseled against excessive intake of caffeine, spicy foods, peppermint, and cinnamon - all of which can exacerbate esophageal reflux. The patient is to take medications as prescribed and call the office if the symptoms are not improving. Samples Pennsaid . Hypertension - well controlled - continue with current medications, continue with no added salt diet. Pt has been encouraged to exercise daily. The pt has been advised to call the office if there are any acute concerns about change in blood pressure readings at home. Sciatica- exercises discussed with the patient, pt to continue with antiinflammatories. Pt is to call if the symptoms do not improve or if they worsen. Samples of pennsaid. Recommend referral to Dr Archuleta Samples Pennsaid . Hypertension - well controlled - continue with current medications, continue with no added salt diet. Pt has been encouraged to exercise daily. The pt has been advised to call the office if there are any acute concerns about change in blood pressure readings at home. Sciatica- exercises discussed with the patient, pt to continue with antiinflammatories. Pt is to call if the symptoms do not improve or if they worsen. Samples of pennsaid. Recommend referral to Dr Archuleta
--- OUTSIDE RECORDS SUMMARY | 2017-08-09 02:33 | XMS REPORT | Continuity of Care Document ---
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 09/11/2016 KAYLEY LAMBERT MD Ot R06.00 DYSPNEA, UNSPECIFIED 09/18/2016 KAYLEY LAMBERT MD Ot E78.00 PURE HYPERCHOLESTEROLEMIA, UNSPECIFIED 09/18/2016 KAYLEY LAMBERT MD Ot F17.210 NICOTINE DEPENDENCE, CIGARETTES, UNCOMPL 09/18/2016 KAYLEY LAMBERT MD Ot I10 ESSENTIAL (PRIMARY) HYPERTENSION 09/18/2016 KAYLEY LAMBERT MD, Ot 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 09/18/2016 KAYLEY LAMBERT MD, Ot 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 09/18/2016 KAYLEY LAMBERT MD, Ot 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 09/18/2016 KAYLEY LAMBERT MD Ot 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 09/18/2016 KAYLEY LAMBERT MD, Ot Z79.899 OTHER CORRECTION (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 THERAPY 09/18/2016 KAYLEY LAMBERT MD, Ot Z95.1 PRESENCE OF AORTOCORONARY BYPASS GRAFT 10/06/2016 KAYLEY LAMBERT MD, Ot I20.8 OTHER FORMS OF ANGINA PECTORIS 10/09/2016 KAYLEY LAMBERT MD, Ot I20.8 OTHER FORMS OF ANGINA PECTORIS 10/09/2016 KAYLEY LAMBERT MD, Ot I20.8 OTHER FORMS OF ANGINA PECTORIS 10/09/2016 KAYLEY LAMBERT MD Ot I20.8 OTHER FORMS OF ANGINA PECTORIS 10/10/2016 KAYLEY LAMBERT MD, Ot I20.8 OTHER FORMS OF ANGINA PECTORIS 10/18/2016 KAYLEY LAMBERT MD, Ot I20.8 OTHER FORMS OF ANGINA PECTORIS 10/23/2016 DEAN SHI APRN Ot R06.00 DYSPNEA, UNSPECIFIED 10/23/2016 DEAN SHI APRN Ot R91.1 SOLITARY PULMONARY NODULE 10/23/2016 DEAN SIH APRN Ot Z72.0 TOBACCO USE 10/30/2016 DEAN SHI APRN Ot R06.00 DYSPNEA, UNSPECIFIED 10/30/2016 DEAN SHI APRN Ot R91.1 SOLITARY PULMONARY NODULE 10/30/2016 DENA SHI APRN Ot Z72.0 TOBACCO USE 12/12/2016 LIANA ARIAS Ot E78.2 MIXED HYPERLIPIDEMIA 12/12/2016 LIANA ARIAS Ot I10 ESSENTIAL (PRIMARY) HYPERTENSION 12/12/2016 LIANA ARIAS Ot 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 12/12/2016 LIANA ARIAS Ot 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 12/18/2016 LINDSAY SIMMS Ot F17.210 NICOTINE DEPENDENCE, CIGARETTES, UNCOMPL 12/18/2016 LINDSAY SIMMS Ot R91.1 SOLITARY PULMONARY NODULE 12/18/2016 LINDSAY SIMMS Ot Z08 ENCNTR FOR FOLLOW-UP EXAM AFTER TRTMT FO 12/18/2016 LINDSAY SIMMS Ot Z79.899 OTHER CORRECTION (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 THERAPY 12/18/2016 LINDSAY SIMMS Ot 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 12/25/2016 LINDSAY SIMMS Fausto Ot F17.210 NICOTINE DEPENDENCE, CIGARETTES, UNCOMPL 12/25/2016 LINDSAY SIMMS Ot R91.1 SOLITARY PULMONARY NODULE 12/25/2016 LINDSAY SIMMS Ot Z08 ENCNTR FOR FOLLOW-UP EXAM AFTER TRTMT FO 12/25/2016 LINDSAY SIMMS Ot Z79.899 OTHER SALES AND DISTRIBUTION CLERK (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 THERAPY 12/25/2016 LINDSAY SIMMS Ot 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 12/27/2016 LIANA ARIAS Ot E78.2 MIXED HYPERLIPIDEMIA 12/27/2016 LIANA ARIAS Ot I10 ESSENTIAL (PRIMARY) HYPERTENSION 12/27/2016 LIANA ARIAS Ot 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 12/27/2016 LIANA ARISA Ot 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 01/01/2017 LIANA ARIAS Ot E78.2 MIXED HYPERLIPIDEMIA 01/01/2017 LIANA ARIAS Ot I10 ESSENTIAL (PRIMARY) HYPERTENSION 01/01/2017 LIANA ARIAS Ot 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 01/01/2017 LIANA ARIAS Ot 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 01/06/2017 DEAN SHI APRN Ot R91.1 SOLITARY PULMONARY NODULE 01/24/2017 DEAN SHI APRN Ot R91.1 SOLITARY PULMONARY NODULE 01/29/2017 DEAN SHI APRN Ot R91.1 SOLITARY PULMONARY NODULE 03/04/2017 Ot 784.51 DYSARTHRIA 03/04/2017 Ot V10.46 HX- PROSTATIC MALIGNANCY 03/04/2017 Ot 305.1 TOBACCO USE DISORDER 03/04/2017 Ot 702.0 ACTINIC KERATOSIS 03/04/2017 Ot V10.46 HX- PROSTATIC MALIGNANCY 03/04/2017 Ot V10.82 HX-MALIG SKIN MELANOMA 03/04/2017 Ot V58.65 LONG-TERM( CURRENT)USE OF STEROIDS 03/04/2017 Ot V58.66 LONG-TERM ( CURRENT) USE OF ASPIRIN 03/04/2017 Ot V58.69 OT MED,LT, CURRENT USE 03/04/2017 Ot V67.09 SURGERY FOLLOW-UP, OTHER SURGERY 03/04/2017 Ot 735.4 OTHER HAMMER TOE 03/04/2017 Ot V72.63 PRE- PROCEDURAL LABORATORY EXAMINATION 03/04/2017 Ot V74.8 SCREEN- BACTERIAL DIS NEC 03/04/2017 Ot 173.31 BASAL CELL CARCINOMA OF SKIN OF OTH UN 03/04/2017 Ot 173.61 BASAL CELL CARCINOMA OF SKIN OF UPPER LI 03/04/2017 Ot 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 03/04/2017 Ot 216.5 BENIGN JENNIFER SKIN TRUNK 03/04/2017 Ot 702.0 ACTINIC KERATOSIS 03/04/2017 Ot 702.19 OTHER SEBORRHEIC KERATOSIS 03/04/2017 Ot 735.4 OTHER HAMMER TOE 03/04/2017 Ot 305.1 TOBACCO USE DISORDER 03/04/2017 Ot 702.0 ACTINIC KERATOSIS 03/04/2017 Ot V10.46 HX- PROSTATIC MALIGNANCY 03/04/2017 Ot V10.82 HX-MALIG SKIN MELANOMA 03/04/2017 Ot V58.65 LONG-TERM( CURRENT)USE OF STEROIDS 03/04/2017 Ot V58.66 LONG-TERM ( CURRENT) USE OF ASPIRIN 03/04/2017 Ot V58.69 OT MED,LT, CURRENT USE 03/04/2017 Ot V67.09 SURGERY FOLLOW-UP, OTHER SURGERY 03/04/2017 ELO CASTRO DPM Ot 735.4 OTHER HAMMER TOE 03/04/2017 ELO CASTRO DPM Ot V72.83 EXAM PRE-OPERATIVE NEC 03/04/2017 MATTHEW MOCTEZUMAM, ELO Patiño Ot V74.8 SCREEN-BACTERIAL DIS NEC 03/04/2017 DEMI LINDSAY Lambert Ot 305.1 TOBACCO USE DISORDER 03/04/2017 DEMILINDSAY Ot V10.46 HX-PROSTATIC MALIGNANCY 03/04/2017 DEMILINDSAY Ot V10.82 HX-MALIG SKIN MELANOMA 03/04/2017 DEMILINDSAY Ot V58.65 LONG-TERM(CURRENT)USE OF STEROIDS 03/04/2017 LINDSAY SIMMS Ot V58.66 LONG-TERM (CURRENT) USE OF ASPIRIN 03/04/2017 DEMILINDSAY HENRY Ot V58.69 OTH MED,LT,CURRENT USE 03/04/2017 LINDSAY SIMMS Ot V67.09 SURGERY FOLLOW-UP, OTHER SURGERY 03/04/2017 LIANA ARIAS Ot 244.9 HYPOTHYROIDISM NOS 03/04/2017 LIANA ARIAS Ot 272.0 PURE HYPERCHOLESTEROLEM 03/04/2017 LIANA ARIAS Ot 401.9 HYPERTENSION NOS 03/04/2017 LIANA ARIAS Ot 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 NOS TYPE VESSEL, NATIV 03/04/2017 LIANA ARIAS Ot 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 W O CEREBRAL IN 03/04/2017 LIANA ARIAS Ot 780.4 DIZZINESS AND GIDDINESS 03/04/2017 LIANA ARIAS Ot V15.82 HISTORY OF TOBACCO USE 03/04/2017 KAYLEY LAMBERT MD Ot 244.9 HYPOTHYROIDISM NOS 03/04/2017 KAYLEY LAMBERT MD Ot 272.4 HYPERLIPIDEMIA NEC/NOS 03/04/2017 KAYLEY LAMBERT MD Ot 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 03/04/2017 KAYLEY LAMBERT MD Ot 397.0 TRICUSPID VALVE DISEASE 03/04/2017 KAYLEY LAMBERT MD Ot 401.9 HYPERTENSION NOS 03/04/2017 KAYLEY LAMBERT MD Ot 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 NOS TYPE VESSEL, NATIV 03/04/2017 KAYLEY LAMBERT MD Ot 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 W O CEREBRAL IN 03/04/2017 KAYLEY LAMBERT MD Ot 780.4 DIZZINESS AND GIDDINESS 03/04/2017 KAYLEY LAMBERT MD Ot V15.82 HISTORY OF TOBACCO USE 03/04/2017 KAYLEY LAMBERT MD Ot 272.0 PURE HYPERCHOLESTEROLEM 03/04/2017 KAYLEY LAMBERT MD Ot 305.1 TOBACCO USE DISORDER 03/04/2017 KAYLEY LAMBERT MD Ot 401.9 HYPERTENSION NOS 03/04/2017 KAYLEY LAMBERT MD Ot 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 NOS TYPE VESSEL, NATIV 03/04/2017 KAYLEY LAMBERT MD Ot 440.0 AORTIC ATHEROSCLEROSIS 03/04/2017 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 Ot 305.1 TOBACCO USE DISORDER 03/04/2017 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 Ot 709.9 SKIN DISORDER NOS 03/04/2017 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 Ot 787.99 OTHER GI SYSTEM SYMPTOMS 03/04/2017 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 Ot V10.82 HX-MALIG SKIN MELANOMA 03/04/2017 KAYLEY LAMBERT MD Ot 272.0 PURE HYPERCHOLESTEROLEM 03/04/2017 KAYLEY LAMBERT MD Ot 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 03/04/2017 KAYLEY LAMBERT MD Ot 397.0 TRICUSPID VALVE DISEASE 03/04/2017 KAYLEY LAMBERT MD Ot 401.9 HYPERTENSION NOS 03/04/2017 KAYLEY LAMBERT MD Ot 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 NOS TYPE VESSEL, NATIV 03/04/2017 KAYLEY LAMBERT MD Ot 429.3 CARDIOMEGALY 03/04/2017 KAYLEY LAMBERT MD Ot 272.0 PURE HYPERCHOLESTEROLEM 03/04/2017 KAYLEY LAMBERT MD Ot 401.9 HYPERTENSION NOS 03/04/2017 KAYLEY LAMBERT MD Ot 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 NOS TYPE VESSEL, NATIV 03/04/2017 KAYLEY LAMBERT MD Ot 427.69 PREMATURE BEATS NEC 03/04/2017 GÉNESIS MIRAMONTES DO Ot 305.1 TOBACCO USE DISORDER 03/04/2017 GÉNESIS MIRAMONTES DO Ot 780.54 HYPERSOMNIA, UNSPECIFIED 03/04/2017 GÉNESIS MIRAMONTES DO Ot 786.09 RESPIRATORY ABNORM NEC 03/04/2017 Ot 486 PNEUMONIA, ORGANISM NOS 03/04/2017 Ot 780.60 FEVER, UNSPECIFIED 03/04/2017 Ot 786.2 COUGH 03/04/2017 DEMI JAROCHOVANDANA Fausto Ot F17.200 NICOTINE DEPENDENCE, UNSPECIFIED, UNCOMP 03/04/2017 LINDSAY SIMMS Ot Z08 ENCNTR FOR FOLLOW-UP EXAM AFTER TRTMT FO 03/04/2017 DEMILINDSAY HENRY Ot Z79.899 OTHER SALES AND DISTRIBUTION CLERK (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 THERAPY 03/04/2017 LINDSAY SIMMS Ot 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 03/04/2017 LIANA ARIAS Ot E78.0 PURE HYPERCHOLESTEROLEMIA 03/04/2017 LIANA ARIAS Ot I10 ESSENTIAL (PRIMARY) HYPERTENSION 03/04/2017 LIANA ARIAS Ot 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 03/04/2017 LIANA ARIAS Ot 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 03/04/2017 LIANA ARIAS Ot E78.0 PURE HYPERCHOLESTEROLEMIA 03/04/2017 LIANA ARIAS K Ot I10 ESSENTIAL (PRIMARY) HYPERTENSION 03/04/2017 LIANA ARIAS Ot 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 03/04/2017 LIANA ARIAS Ot 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 03/04/2017 LINDSAY SIMMS Ot F17.200 NICOTINE DEPENDENCE, UNSPECIFIED, UNCOMP 03/04/2017 LINDSAY SIMMS Ot Z08 ENCNTR FOR FOLLOW-UP EXAM AFTER TRTMT FO 03/04/2017 LINDSAY SIMMS Ot Z79.899 OTHER CORRECTION (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 THERAPY 03/04/2017 LINDSAY SIMMS Ot 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 03/04/2017 LINDSAY SIMMS Ot F17.210 NICOTINE DEPENDENCE, CIGARETTES, UNCOMPL 03/04/2017 LINDSAY SIMMS Ot Z08 ENCNTR FOR FOLLOW-UP EXAM AFTER TRTMT FO 03/04/2017 LINDSAY SIMMS Ot Z79.899 OTHER SALES AND DISTRIBUTION CLERK (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 THERAPY 03/04/2017 LINDSAY SIMMS Ot 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 03/04/2017 JANN YADAV MD Ot F17.210 NICOTINE DEPENDENCE, CIGARETTES, UNCOMPL 03/04/2017 JANN YADAV MD, Ot M54.6 PAIN IN THORACIC SPINE 03/04/2017 JANN YADAV MD Ot R07.89 OTHER CHEST PAIN 03/04/2017 JANN YADAV MD, Ot R07.9 CHEST PAIN, UNSPECIFIED 03/04/2017 JANN YADAV MD, Ot R91.1 SOLITARY PULMONARY NODULE 03/04/2017 JANN YADAV MD, Ot Z79.02 SALES AND DISTRIBUTION CLERK (CURRENT) USE OF ANTITHROMBOTI 03/04/2017 JANN YADAV MD, Ot Z79.899 OTHER SALES AND DISTRIBUTION CLERK (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 THERAPY 03/04/2017 JANN YADAV MD, Ot Z95.1 PRESENCE OF AORTOCORONARY BYPASS GRAFT 03/04/2017 KAYLEY LAMBERT MD Ot E11.9 TYPE 2 DIABETES MELLITUS WITHOUT COMPLIC 03/04/2017 KAYLEY LAMBERT MD Ot E78.2 MIXED HYPERLIPIDEMIA 03/04/2017 KAYLEY LAMBERT MD Ot I10 ESSENTIAL (PRIMARY) HYPERTENSION 03/04/2017 KAYLEY LAMBERT MD Ot 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 03/04/2017 KAYLEY LAMBERT MD Ot R06.00 DYSPNEA, UNSPECIFIED 03/04/2017 DEAN SHI APRN Ot R06.00 DYSPNEA, UNSPECIFIED 03/04/2017 DEAN SHI PACKAGER AND STRAPPER Ot R91.1 SOLITARY PULMONARY NODULE 03/04/2017 DEAN SHI PACKAGER AND STRAPPER Ot Z72.0 TOBACCO USE 03/04/2017 DEAN SHI PACKAGER AND STRAPPER Ot R91.1 SOLITARY PULMONARY NODULE 03/04/2017 LINDSAY SIMMS Ot F17.210 NICOTINE DEPENDENCE, CIGARETTES, UNCOMPL 03/04/2017 LINDSAY SIMMS Ot R91.1 SOLITARY PULMONARY NODULE 03/04/2017 LINDSAY SIMMS Ot Z08 ENCNTR FOR FOLLOW-UP EXAM AFTER TRTMT FO 03/04/2017 LINDSAY SIMMS Ot Z79.899 OTHER SALES AND DISTRIBUTION CLERK (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 THERAPY 03/04/2017 LINDSAY SIMMS Ot 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 03/04/2017 LIANA ARIAS Ot E78.2 MIXED HYPERLIPIDEMIA 03/04/2017 LIANA ARIAS Ot I10 ESSENTIAL (PRIMARY) HYPERTENSION 03/04/2017 LIANA ARIAS Ot 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 03/04/2017 LIANA ARIAS Ot 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 05/31/2017 Ot 305.1 TOBACCO USE DISORDER 05/31/2017 Ot 702.0 ACTINIC KERATOSIS 05/31/2017 Ot V10.46 HX- PROSTATIC MALIGNANCY 05/31/2017 Ot V10.82 HX-MALIG SKIN MELANOMA 05/31/2017 Ot V58.65 LONG-TERM( CURRENT)USE OF STEROIDS 05/31/2017 Ot V58.66 LONG-TERM ( CURRENT) USE OF ASPIRIN 05/31/2017 Ot V58.69 OTH MED,LT, CURRENT USE 05/31/2017 Ot V67.09 SURGERY FOLLOW-UP, OTHER SURGERY 05/31/2017 Ot 735.4 OTHER HAMMER TOE 05/31/2017 Ot V72.63 PRE- PROCEDURAL LABORATORY EXAMINATION 05/31/2017 Ot V74.8 SCREEN- BACTERIAL DIS NEC 05/31/2017 Ot 173.31 BASAL CELL CARCINOMA OF SKIN OF OTH UN 05/31/2017 Ot 173.61 BASAL CELL CARCINOMA OF SKIN OF UPPER LI 05/31/2017 Ot 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 05/31/2017 Ot 216.5 BENIGN JENNIFER SKIN TRUNK 05/31/2017 Ot 702.0 ACTINIC KERATOSIS 05/31/2017 Ot 702.19 OTHER SEBORRHEIC KERATOSIS 05/31/2017 Ot 735.4 OTHER HAMMER TOE 05/31/2017 Ot 305.1 TOBACCO USE DISORDER 05/31/2017 Ot 702.0 ACTINIC KERATOSIS 05/31/2017 Ot V10.46 HX- PROSTATIC MALIGNANCY 05/31/2017 Ot V10.82 HX-MALIG SKIN MELANOMA 05/31/2017 Ot V58.65 LONG-TERM( CURRENT)USE OF STEROIDS 05/31/2017 Ot V58.66 LONG-TERM ( CURRENT) USE OF ASPIRIN 05/31/2017 Ot V58.69 OTH MED,LT, CURRENT USE 05/31/2017 Ot V67.09 SURGERY FOLLOW-UP, OTHER SURGERY 05/31/2017 MATTHEW DPUlices, ELO Patiño Ot 735.4 OTHER HAMMER TOE 05/31/2017 MATTHEW DPELO Elena Ot V72.83 EXAM PRE-OPERATIVE NEC 05/31/2017 ELO CASTRO DPM Ot V74.8 SCREEN-BACTERIAL DIS NEC 05/31/2017 ILNDSAY SIMMS Ot 305.1 TOBACCO USE DISORDER 05/31/2017 LINDSAY SIMMS Ot V10.46 HX-PROSTATIC MALIGNANCY 05/31/2017 LINDSAY SIMMS Ot V10.82 HX-MALIG SKIN MELANOMA 05/31/2017 LINDSAY SIMMS Ot V58.65 LONG-TERM(CURRENT)USE OF STEROIDS 05/31/2017 LINDSAY SIMMS Ot V58.66 LONG-TERM (CURRENT) USE OF ASPIRIN 05/31/2017 LINDSAY SIMMS Ot V58.69 OTH MED,LT,CURRENT USE 05/31/2017 LINDSAY SIMMS Ot V67.09 SURGERY FOLLOW-UP, OTHER SURGERY 05/31/2017 LIANA ARIAS Ot 244.9 HYPOTHYROIDISM NOS 05/31/2017 LIANA ARIAS Ot 272.0 PURE HYPERCHOLESTEROLEM 05/31/2017 LIANA ARIAS Ot 401.9 HYPERTENSION NOS 05/31/2017 LIANA ARIAS Ot 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 NOS TYPE VESSEL, NATIV 05/31/2017 LIANA ARIAS Ot 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 W O CEREBRAL IN 05/31/2017 LIANA ARIAS Ot 780.4 DIZZINESS AND GIDDINESS 05/31/2017 LIANA ARIAS Ot V15.82 HISTORY OF TOBACCO USE 05/31/2017 PETRA CASTANEDA, KAYLEY Rivera Ot 244.9 HYPOTHYROIDISM NOS 05/31/2017 KAYLEY LAMBERT MD Ot 272.4 HYPERLIPIDEMIA NEC/NOS 05/31/2017 KAYLEY LAMBERT MD Ot 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 05/31/2017 KAYLEY LAMBERT MD Ot 397.0 TRICUSPID VALVE DISEASE 05/31/2017 KAYLEY LAMBERT MD Ot 401.9 HYPERTENSION NOS 05/31/2017 KAYLEY LAMBERT MD Ot 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 NOS TYPE VESSEL, NATIV 05/31/2017 KAYLEY LAMBERT MD Ot 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 W O CEREBRAL IN 05/31/2017 KAYLEY LAMBERT MD Ot 780.4 DIZZINESS AND GIDDINESS 05/31/2017 KAYLEY LAMBERT MD Ot V15.82 HISTORY OF TOBACCO USE 05/31/2017 KAYLEY LAMBERT MD Ot 272.0 PURE HYPERCHOLESTEROLEM 05/31/2017 KAYLEY LAMBERT MD Ot 305.1 TOBACCO USE DISORDER 05/31/2017 KAYLEY LAMBERT MD Ot 401.9 HYPERTENSION NOS 05/31/2017 KAYLEY LAMBERT MD Ot 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 NOS TYPE VESSEL, NATIV 05/31/2017 KAYLEY LAMBERT MD Ot 440.0 AORTIC ATHEROSCLEROSIS 05/31/2017 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 Ot 305.1 TOBACCO USE DISORDER 05/31/2017 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 Ot 709.9 SKIN DISORDER NOS 05/31/2017 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 Ot 787.99 OTHER GI SYSTEM SYMPTOMS 05/31/2017 ANTHONY CASTRO S APPAREL DESIGNER Ot V10.82 HX-MALIG SKIN MELANOMA 05/31/2017 KAYLEY LAMBERT MD Ot 272.0 PURE HYPERCHOLESTEROLEM 05/31/2017 KAYLEY LAMBERT MD Ot 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 05/31/2017 KAYLEY LAMBERT MD Ot 397.0 TRICUSPID VALVE DISEASE 05/31/2017 KAYLEY LAMBERT MD Ot 401.9 HYPERTENSION NOS 05/31/2017 KAYLEY LAMBERT MD Ot 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 NOS TYPE VESSEL, NATIV 05/31/2017 KAYLEY LAMBERT MD Ot 429.3 CARDIOMEGALY 05/31/2017 KAYLEY LAMBERT MD Ot 272.0 PURE HYPERCHOLESTEROLEM 05/31/2017 KAYLEY LAMBERT MD Ot 401.9 HYPERTENSION NOS 05/31/2017 KAYLEY LAMBERT MD Ot 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 NOS TYPE VESSEL, NATIV 05/31/2017 KAYLEY LAMBERT MD Ot 427.69 PREMATURE BEATS NEC 05/31/2017 GÉNESIS MIRAMONTES DO Ot 305.1 TOBACCO USE DISORDER 05/31/2017 GÉNESIS IMRAMONTES DO M Ot 780.54 HYPERSOMNIA, UNSPECIFIED 05/31/2017 GÉNESIS MIRAMONTES DO Ot 786.09 RESPIRATORY ABNORM NEC 05/31/2017 Ot 486 PNEUMONIA, ORGANISM NOS 05/31/2017 Ot 780.60 FEVER, UNSPECIFIED 05/31/2017 Ot 786.2 COUGH 05/31/2017 LINDSAY SIMMS Ot F17.200 NICOTINE DEPENDENCE, UNSPECIFIED, UNCOMP 05/31/2017 LINDSAY SIMMS Ot Z08 ENCNTR FOR FOLLOW-UP EXAM AFTER TRTMT FO 05/31/2017 LINDSAY SIMMS Ot Z79.899 OTHER CORRECTION (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 THERAPY 05/31/2017 LINDSAY SIMMS Ot 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 05/31/2017 LIANA ARIAS Ot E78.0 PURE HYPERCHOLESTEROLEMIA 05/31/2017 LIANA ARIAS Ot I10 ESSENTIAL (PRIMARY) HYPERTENSION 05/31/2017 LIANA ARIAS Ot 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 05/31/2017 LIANA ARIAS Ot 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 05/31/2017 LIANA ARIAS Ot E78.0 PURE HYPERCHOLESTEROLEMIA 05/31/2017 LIANA ARIAS Ot I10 ESSENTIAL (PRIMARY) HYPERTENSION 05/31/2017 LIANA ARIAS Ot 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 05/31/2017 LIANA ARIAS Ot 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 05/31/2017 LINDSAY SIMMS Ot F17.200 NICOTINE DEPENDENCE, UNSPECIFIED, UNCOMP 05/31/2017 LINDSAY SIMMS Ot Z08 ENCNTR FOR FOLLOW-UP EXAM AFTER TRTMT FO 05/31/2017 LINDSAY SIMMS Ot Z79.899 OTHER CORRECTION (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 THERAPY 05/31/2017 LINDSAY SIMMS Ot 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 05/31/2017 LINDSAY SIMMS Ot F17.210 NICOTINE DEPENDENCE, CIGARETTES, UNCOMPL 05/31/2017 LINDSAY SIMMS Ot Z08 ENCNTR FOR FOLLOW-UP EXAM AFTER TRTMT FO 05/31/2017 DEMILINDSAY Ot Z79.899 OTHER SALES AND DISTRIBUTION CLERK (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 THERAPY 05/31/2017 LINDSAY SIMMS Ot 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 05/31/2017 JANN YADAV MD, Ot F17.210 NICOTINE DEPENDENCE, CIGARETTES, UNCOMPL 05/31/2017 JANN YADAV MD, Ot M54.6 PAIN IN THORACIC SPINE 05/31/2017 JANN YDAAV MD, Ot R07.89 OTHER CHEST PAIN 05/31/2017 JANN YADAV MD, Ot R07.9 CHEST PAIN, UNSPECIFIED 05/31/2017 JANN YADAV MD, Ot R91.1 SOLITARY PULMONARY NODULE 05/31/2017 JANN YADAV MD, Ot Z79.02 SALES AND DISTRIBUTION CLERK (CURRENT) USE OF ANTITHROMBOTI 05/31/2017 JANN YADAV MD, Ot Z79.899 OTHER SALES AND DISTRIBUTION CLERK (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 THERAPY 05/31/2017 JANN YADAV MD, Ot Z95.1 PRESENCE OF AORTOCORONARY BYPASS GRAFT 05/31/2017 KAYLEY LAMBERT MD Ot E11.9 TYPE 2 DIABETES MELLITUS WITHOUT COMPLIC 05/31/2017 KAYLEY LAMBERT MD Ot E78.2 MIXED HYPERLIPIDEMIA 05/31/2017 KAYLEY LAMBERT MD Ot I10 ESSENTIAL (PRIMARY) HYPERTENSION 05/31/2017 KAYLEY LAMBERT MD Ot 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 05/31/2017 KAYLEY LAMBERT MD Ot R06.00 DYSPNEA, UNSPECIFIED 05/31/2017 DEAN SHI APRN Ot R06.00 DYSPNEA, UNSPECIFIED 05/31/2017 DEAN SHI APRN Ot R91.1 SOLITARY PULMONARY NODULE 05/31/2017 DEAN SHI APRN Ot Z72.0 TOBACCO USE 05/31/2017 DEAN SHI PACKAGER AND STRAPPER Ot R91.1 SOLITARY PULMONARY NODULE 05/31/2017 LINDSAY SIMMS Ot F17.210 NICOTINE DEPENDENCE, CIGARETTES, UNCOMPL 05/31/2017 LINDSAY SIMMS Ot R91.1 SOLITARY PULMONARY NODULE 05/31/2017 LINDSAY SIMMS Ot Z08 ENCNTR FOR FOLLOW-UP EXAM AFTER TRTMT FO 05/31/2017 LINDSAY SIMMS Ot Z79.899 OTHER CORRECTION (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 THERAPY 05/31/2017 LINDSAY SIMMS Ot 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 05/31/2017 LIANA ARIAS Ot E78.2 MIXED HYPERLIPIDEMIA 05/31/2017 LIANA ARIAS Ot I10 ESSENTIAL (PRIMARY) HYPERTENSION 05/31/2017 LIANA ARIAS Ot 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 05/31/2017 LIANA ARIAS Ot 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 Procedures There is no data. Results Test Result Range Complete urinalysis with reflex to culture - 04/17/16 08:15 Urine color determination YELLOW NRG Urine clarity determination CLEAR NRG Urine pH measurement by test strip 5 5-9 Specific gravity of urine by test strip 1.020 1.016- 1.022 Urine protein assay by test strip, semi-quantitative [...] 08:30 Blood leukocytes automated count (number/volume) 8.0 10*3/uL 4.3-11.0 Blood erythrocytes automated count (number/volume) 4.50 10*6/uL 4.35-5.85 Venous blood hemoglobin measurement (mass/volume) 15.2 [...] Automated blood platelet mean volume measurement 9.4 [foz_us] 7.4-10.4 PT panel in platelet poor plasma [...] Serum or plasma sodium measurement (moles/volume) 140 mmol/L 135-145 Serum or plasma potassium measurement (moles/volume) 4.2 mmol/L 3.6-5.0 Serum or plasma chloride measurement (moles/volume) 108 mmol/L 98-107 Carbon dioxide 23 mmol/L 21-32 Serum or plasma anion gap determination (moles/volume) 9 mmol/L 5-14 Serum or plasma urea nitrogen measurement (mass/volume) 13 mg/dL 7-18 Serum or plasma creatinine measurement (mass/volume) 1.10 mg/dL 0.60-1.30 Serum or plasma urea nitrogen/creatinine mass [...] Serum or plasma cholesterol measurement (mass/volume) 148 mg/dL < 200 Serum or plasma cholesterol in HDL measurement (mass/volume) 33 mg/ dL 40-60 Cholesterol in LDL [mass/volume] in serum or plasma by direct assay 85 mg/dL 1-129 Serum or plasma cholesterol in VLDL measurement (mass/volume) 29 mg/ dL 5-40 Methicillin resistant Staphylococcus aureus (MRSA) screening culture - 08:30 Methicillin resistant Staphylococcus aureus (MRSA) screening culture NEG NRG Automated blood complete blood count (hemogram) panel - 04/19/16 04:06 Blood leukocytes automated count (number/volume) 7.2 10*3/uL 4.3-11.0 Blood erythrocytes automated count (number/volume) 3.67 10*6/uL 4.35-5.85 Venous blood hemoglobin measurement (mass/volume) 12.3 [...] Automated blood platelet mean volume measurement 9.6 [foz_us] 7.4-10.4 Whole blood basic metabolic panel - 04/19/16 04:06 Serum or plasma sodium measurement (moles/volume) 138 mmol/L 135-145 Serum or plasma potassium measurement (moles/volume) 3.9 mmol/L 3.6-5.0 Serum or plasma chloride measurement (moles/volume) 108 mmol/L 98-107 Carbon dioxide 23 mmol/L 21-32 Serum or plasma anion gap determination (moles/volume) 7 mmol/L 5-14 Serum or plasma urea nitrogen measurement (mass/volume) 13 mg/dL 7-18 Serum or plasma creatinine measurement (mass/volume) 1.05 mg/dL 0.60-1.30 Serum or plasma urea nitrogen/creatinine mass ratio 12 NRG Serum or plasma creatinine measurement with calculation of estimated glomerular filtration rate > NRG Serum or plasma glucose measurement (mass/volume) 121 mg/dL 70-105 Serum or plasma calcium measurement (mass/volume) 8.3 mg/dL 8.5-10.1 Complete blood count (CBC) with automated white blood cell (WBC) differential - 07/18/16 11:10 Blood leukocytes automated count (number/volume) 9.8 10*3/uL 4.3-11.0 Blood erythrocytes automated count (number/volume) 4.22 10*6/uL 4.35-5.85 Venous blood hemoglobin measurement (mass/volume) 14.3 [...] Automated blood platelet mean volume measurement 9.5 [foz_us] 7.4-10.4 Automated blood neutrophils/100 leukocytes 75 % [...] Serum or plasma sodium measurement (moles/volume) 139 mmol/L 135-145 Serum or plasma potassium measurement (moles/volume) 4.4 mmol/L 3.6-5.0 Serum or plasma chloride measurement (moles/volume) 107 mmol/L 98-107 Carbon dioxide 23 mmol/L 21-32 Serum or plasma anion gap determination (moles/volume) 9 mmol/L 5-14 Serum or plasma urea nitrogen measurement (mass/volume) 11 mg/dL 7-18 Serum or plasma creatinine measurement (mass/volume) 1.18 mg/dL 0.60-1.30 Serum or plasma urea nitrogen/creatinine mass [...] or plasma troponin i.cardiac measurement (mass/volume) < ng/ mL <0.30 Myoglobin, serum - 07/18/16 11:10 Myoglobin, serum 75.4 ng/mL 10.0-92.0 Fibrin D-dimer FEU measurement in platelet poor plasma (mass/volume) - 11:10 Fibrin D-dimer FEU measurement in platelet poor plasma (mass/volume) 0.98 ug/mL 0.00-0.49 Serum or plasma troponin i.cardiac measurement (mass/volume) - 07/18/16 15:47 Serum or plasma troponin i.cardiac measurement (mass/volume) < ng/ mL <0.30 Encounters ACCT No. Visit Date/Time Discharge Status Pt. Type Provider Facility Loc./Unit Complaint [id number] 01/03/2017 10:01:00 01/03/2017 23:59:59 CLS Outpatient DEAN SHI APRN [facility] RAD R91.1 LUNG NODULE [id number] 12/06/2016 13:41:00 12/06/2016 23:59:59 CLS Outpatient LIANA ARIAS [facility] CARD CAD I25.10 [id number] 11/25/2016 09:01:00 11/25/2016 23:59:59 CLS Outpatient LINDSAY SIMMS [facility] ONC [id number] 10/09/2016 10:22:00 10/18/2016 11:00:00 DIS Outpatient KAYLEY LAMBERT MD [facility] CR STABLE ANGINA [id number] 09/18/2016 11:28:00 10/06/2016 00:01:00 DIS Outpatient KAYLEY LAMBERT MD [facility] CR STABLE ANGINA [id number] 08/21/2016 15:52:00 08/21/2016 23:59:59 CLS Outpatient DEAN SHI APRN [facility] RT R06.00 DYSPNEA [id number] 08/14/2016 11:46:00 08/14/2016 23:59:59 CLS Outpatient KAYLEY LAMBERT MD [facility] CARD I25.10 [id number] 07/18/2016 10:57:00 07/18/2016 23:59:59 CLS Emergency VICENTA CASTANEDA, JANN Chaidez [facility] ER CHEST PAIN [id number] 04/17/2016 07:52:00 04/19/2016 09:30:00 DIS Outpatient KAYLEY LAMBERT MD [facility] CATH CAD,HTN [id number] 02/13/2016 12:57:00 02/13/2016 23:59:59 CLS Outpatient LINDSAY SIMMS [facility] ONC [id number] 01/15/2016 12:51:00 01/15/2016 23:59:59 CLS Outpatient LINDSAY SIMMS N [facility] ONC [id number] 11/22/2015 07:47:00 11/22/2015 23:59:59 CLS Outpatient CLYDE-CHRISTIAN PALIANA [facility] CARD CAD,CAROTID STENOSIS, HTN [id number] 10/19/2015 08:41:00 10/19/2015 23:59:59 CLS Outpatient CLYDE-LIANA BRADLEY [facility] CARD CAD,CAROTID STENOSIS,HTN [id number] 01/12/2015 12:57:00 01/12/2015 23:59:59 CLS Outpatient LINDSAY SIMMS Fausto [facility] ONC [id number] 04/18/2014 15:32:00 04/18/2014 23:59:59 CLS Outpatient GÉNESIS MIRAMONTES DO [facility] RT SNORING EXCESSIVE DAYTIME SLEEPINESS HTN DYSPNEA [id number] 03/07/2014 08:23:00 03/07/2014 23:59:59 CLS Outpatient KAYLEY LAMBERT MD [facility] CARD CAD,KATELIN,HTN [id number] 03/02/2014 10:07:00 03/02/2014 23:59:59 CLS Outpatient KAYLEY LAMBERT MD [facility] CARD CAD,KATELIN,HTN [id number] 01/13/2014 14:18:00 01/13/2014 14:46:00 DIS Emergency MELIZA DELGADO APRN [facility] ER FINGER LACERATION [id number] 01/12/2014 12:46:00 01/12/2014 23:59:59 CLS Outpatient 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 [facility] ONC [id number] 11/30/2013 10:27:00 11/30/2013 13:02:00 DIS Emergency NARENDRA CASTANEDA, RADHA Be [facility] ER LIGHTHEADED/SYNCOPE [id number] 09/24/2013 14:00:00 10/07/2013 17:00:00 DIS Outpatient FESTUS AZUL AUDRA [facility] REHAB L LEG AND THIGH PAIN [id number] 08/24/2013 08:58:00 08/24/2013 23:59:59 CLS Outpatient KAYLEY LAMBERT MD [facility] RAD CAD,HTN, [id number] 02/09/2013 11:36:00 02/09/2013 23:59:59 CLS Outpatient LIANA ARIAS [facility] RAD CAD DIZZINESS ,HTN, [id number] 02/05/2013 09:06:00 02/05/2013 23:59:59 CLS Outpatient KAYLEY LAMBERT MD [facility] CARD CAD,DIZZINESS,HTN [id number] 01/11/2013 13:07:00 01/11/2013 23:59:59 CLS Outpatient LINDSAY SIMMS Fausto [facility] ONC [id number] 12/25/2012 07:30:00 12/25/2012 12:00:00 DIS Outpatient ELO CASTRO DPM [facility] SDC HAMMERTOE 3RD AND 4TH RIGHT [id number] 12/22/2012 09:51:00 12/22/2012 23:59:59 CLS Outpatient ELO CASTRO DPM [facility] PREOP HAMMERTOES 3RD AND 4TH RIGHT [id number] 08/06/2017 11:46:00 PEN Preadmit FARRUKH SCOTT MD [facility] RAD COPD [id number] 06/06/2014 11:02:00 Document Registration [id number] 03/01/2014 09:33:00 Document Registration [id number] 03/01/2014 09:33:00 Document Registration [id number] 07/16/2012 13:47:00 Document Registration [id number] 05/28/2012 06:00:00 Document Registration [id number] 05/11/2012 12:00:00 Document Registration [id number] 01/13/2012 13:09:00 Document Registration [id number] 10/21/2011 12:30:00 Document Registration [id number] 01/14/2011 13:33:00 Document Registration [id number] 09/12/2010 10:10:00 Document Registration [id number] 12/14/2009 08:48:00 Document Registration [id number] 10/30/2009 07:03:00 Document Registration [id number] 03/15/2009 00:00:00 Document Registration [id number] 12/27/2008 12:52:00 Document Registration [id number] 12/14/2008 09:32:00 Document Registration [id number] 01/12/2015 14:15:51 ACT Document Registration [id number] 02/04/2017 13:59:03 02/04/2017 23:59:59 [facility] Outpatient
[2017-08-09] MEDS ORDERED: KETOROLAC 30 MG/ML VIAL IM STA (02:49)
--- NOTE | 2017-08-09 02:55 | ED Upper Extremity ---
General Chief Complaint: Upper Extremity Stated Complaint: RT SHOULDER PAIN Nursing Triage Note: Patient [place] at 1700 on 08/07 [place]. patient c/o R shoulder pain. patient reports that when he fell he broke his fall with his R elbow. denies other injury. reports pain now is radiating down R arm to hand Nursing Sepsis Screen: No Definite Risk Source: patient Exam Limitations: no limitations History of Present Illness Date Seen by Provider: Aug 09, 2017 Time Seen by Provider: 02:43 Initial Comments Here with report of right shoulder pain with pain radiating down to the hand. Fell at about 5 p.m. today while working on the yard because he tripped on a small hill. Fell on the right elbow. He was able to complete his yard work and was doing okay until later in the evening went he started having worse pain. Initially the pain was centered around the right anterior shoulder area and radiated to the upper arm. Later it radiated to just above the elbow. Then started radiating down to the hand, skipping the elbow, and involved first the thumb and then all the fingers. Describes it as an ache. He did take his hydrocodone twice this evening and that did not significantly help. States when he is standing if she focuses in his belt loop that helps out with the pain. Did not hit his head and did not knock himself out. Onset: yesterday Severity: moderate Pain/Injury Location: right shoulder Method of Injury: fell Modifying Factors: Improves With Immobilization; Worse With Movement Allergies and Home Medications Allergies Coded Allergies: No Known Drug Allergies (Verified , 02/23/08) Home Medications Allopurinol 100 Mg Tab, 100 MG PO BID, (Reported) Aspirin 81 Mg Tabec, 81 MG PO HS, (Reported) Atorvastatin Calcium 40 Mg Tablet, 20 MG PO HS, (Reported) TAKES 1/2 (40MG) TABLET Calcium Carbonate/Vitamin D3 1 Each Tablet, 1 TAB PO HS, (Reported) Clopidogrel Bisulfate 75 Mg Tablet, 75 MG PO DAILY Prescribed by: KAYLEY LAMBERT on 04/19/16828 Doxazosin Mesylate 4 Mg Tab, 4 MG PO DAILY, (Reported) Hydrocodone/Acetaminophen 1 Each Tablet, 1-2 TAB PO Q4H PRN for PAIN, (Reported) Levothyroxine Sodium 50 Mcg Tablet, 50 MCG PO DAILY, (Reported) Lisinopril 10 Mg Tablet, 10 MG PO DAILY, (Reported) Magnesium Oxide 400 Mg Tablet, 400 MG PO HS, (Reported) Metoprolol Succinate 25 Mg Tab.sr.24h, 25 MG PO DAILY, (Reported) Multivitamin 1 Each Tablet, 0.5 TAB PO BID, (Reported) Omeprazole 20 Mg Capsule.dr, 20 MG PO BID, (Reported) Potassium 99 Mg Tablet, 99 MG PO HS, (Reported) Sildenafil Citrate 100 Mg Tablet, 100 MG PO DAILY PRN for ED, (Reported) Vitamin B Complex & Vit C No.4 150 Mg Tablet, 150 MG PO DAILY, (Reported) [Flax Seed Oil] , 0.5 TBS PO HS, (Reported) Patient Home Medication List Home Medication List Reviewed: Yes (reviewed patient's home med list) Constitutional: no symptoms reported Respiratory: no symptoms reported Cardiovascular: no symptoms reported Musculoskeletal: joint pain; No joint swelling; muscle pain Skin: no symptoms reported Past Drfnqkc-Yikmtr-Erpmwi Hx Past Med/Social Hx: Reviewed Nursing Past Med/Soc Hx Patient Social History Alcohol Use: Denies Use Recreational Drug Use: No Type Used: Cigarettes Recent Foreign Travel: No Contact w/Someone Who Travel: No Recent Infectious Disease Expo: No Recent Hopitalizations: Yes Physical Abuse: No Sexual Abuse: No Immunizations Up To Date Tetanus Booster (TDap): More than 5yrs Date of Pneumonia Vaccine: Nov 25, 2011 Date of Influenza Vaccine: Dec 19, 2015 Past Medical History Surgeries: Yes (BACK SURGERY) CABG Respiratory: No Cardiac: Yes Neurological: No Reproductive Disorders: No Prostate Problems Gastrointestinal: No Gastroesophageal Reflux Musculoskeletal: No Arthritis, Chronic Back Pain, Gout Endocrine: Yes Hypothyroidsim Cancer: No Prostate Psychosocial: No Nursing Suicide Risk Score: 0 Integumentary: No Blood Disorders: No Family Medical History Reviewed Nursing Family Hx Cardiovascular disease 19 MOTHER Myocardial infarction 19 FATHER Physical Exam Vital Signs Vital Signs - First Documented 08/09/17 02:26 Temp 98.2 Pulse 80 Resp 18 B/P (MAP) 137/100 (112) Pulse Ox 96 Capillary Refill : Less Than 3 Seconds General Appearance: WD/WN, no apparent distress Cardiovascular: regular rate, rhythm, no murmur Respiratory: lungs clear, normal breath sounds Shoulder: No deformity, No ecchymosis; limited ROM (Limited with external rotation and forward flexion. Pain noted to the anterior shoulder with movement and radiates to the upper arm anteriorly.), soft tissue tenderness ( anterior shoulder joint area onto the biceps area); No swelling Elbow/Forearm: normal inspection Wrist: Yes normal inspection Hand: normal inspection Neurologic/Psychiatric: no motor/sensory deficits, alert, normal mood/affect Skin: normal color, warm/dry Progress/Results/Core Measures My Orders Orders - JANN YADAV MD Ketorolac Injection (Toradol Injection) (08/09/17 02:49) Shoulder, Right, 3 Views (08/09/17 02:49) Sling (08/09/17 02:50) Prednisone Tablet (Deltasone Tablet) (08/09/17 03:30) Vital Signs/I&O 08/09/17 02:26 Temp 98.2 Pulse 80 Resp 18 B/P (MAP) 137/100 (112) Pulse Ox 96 Blood Pressure Mean: 112 Progress Note : Progress Note Seen and evaluated. X-ray right shoulder. Toradol 30 mg IM. Monitor patient. Sling ordered. Diagonstic Imaging: Xray Comments Right shoulder 3 view x-ray shows degeneration without acute fracture Reviewed: Reviewed by Me Departure Impression Primary Impression: Right anterior shoulder pain Disposition: HOME, SELF-CARE Condition: Stable Departure-Patient Inst. Decision time for Depature: 03:15 Referrals: FARRUKH SCOTT MD (PCP/Family) Primary Care Physician Patient Instructions: How to Use a Shoulder Sling, Shoulder Impingement (DC) Add. Discharge Instructions: All discharge instructions reviewed with patient and/or family. Voiced understanding. Continue medications as directed. Use sling for comfort for the next several days and then as needed. Follow-up with your doctor on Friday for recheck and further evaluation and for possible referral to orthopedics or for MRI. Return for worse pain, swelling, weakness, numbness or other concerns as needed. Scripts Prednisone (Prednisone) 20 Mg Tab 40 MG PO DAILY, #8 TAB 0 Refills Prov: JANN YADAV MD 08/09/17 JANN YADAV MD Aug 09, 2017 02:55
[2017-08-09] MEDS ORDERED: predniSONE 20 MG TAB ONE (03:20)
[2017-08-09 03:26] VITALS: BP 137/100
[2017-08-09] MEDS ORDERED: PRD20T PO (03:26)
[2017-08-09] MEDS ORDERED: predniSONE 20 MG TAB PO ONE (03:30)
--- NOTE | 2017-08-09 07:29 | Diagnostic Imaging Report ---
INDICATION: Tripped and fell on arm two days ago now with pain. TECHNIQUE: Three views of the right shoulder 03:26 a.m. CORRELATION STUDY: None. FINDINGS: Slight high riding appearance but the humeral head is noted with narrowing of subacromial joint space. Minimal osteophyte about the acromioclavicular joint. No acute fracture. No dislocation. Poststernotomy changes, multiple sternal wires interrupted. IMPRESSION: 1. Negative for acute bony abnormality about the shoulder. Degenerative type change. High riding humeral head can be associated with underlying rotator cuff pathology. Clinical correlation recommended. Dictated by: Dictated on workstation # [id number]
== END 2017-08-09 03:26 | disposition home or self-care (01) ==
LOC: EDUNIT# 02:21 → ER 02:24
DX: M25.511 Pain in right shoulder (principal); E03.9 Hypothyroidism, unspecified; M10.9 Gout, unspecified; K21.9 Gastro-esophageal reflux disease without esophagitis; Z95.5 Presence of coronary angioplasty implant and graft; Z85.46 Personal history of malignant neoplasm of prostate; Z98.890 Other specified postprocedural states; Z79.82 Long term (current) use of aspirin; W18.09XA Striking against other object with subsequent fall, initial encounter
CPT/HCPCS: 73030; 96372

== ENCOUNTER → 2017-08-11 | Outpatient (CLI) | payer MEDICARE, BC ==
[~2017-08-11] MED LIST changes: +CATHETER FLUSH 10 ML SYR IV PRN; +IOHEXOL 350 MG/ML 100 ML (OMNIPAQUE 350) VIAL IV ONE; +NS 250 ML (IVPB) BAG IV ONE; +PRD20T PO
[2017-08-11 11:01] LABS: CREATININE SERUM 1.18 MG/DL (0.60-1.30)
--- NOTE | 2017-08-11 11:54 | Diagnostic Imaging Report ---
INDICATION: Prostate carcinoma and COPD with pulmonary nodule. COMPARISON: Correlation is made with prior CT chest from 01/03/2017. FINDINGS: CT NECK: The visualized intracranial structures are unremarkable. Posterior nasopharynx, oropharynx and larynx are unremarkable. Submandibular and parotid glands appear to be symmetric. No cervical lymphadenopathy or fluid collection is detected. IMPRESSION: Unremarkable CT of the soft tissues of the neck. CT CHEST: Postop changes of median sternotomy are noted. No axillary lymphadenopathy is detected. Fatty lymph node right paratracheal location appears stable. No mediastinal lymphadenopathy is detected. No pericardial or pleural fluid is identified. The stent in the proximal left subclavian artery protruding into the aortic lumen is again noted. Parenchymal evaluation again demonstrates subpleural interstitial fibrotic changes, bilateral upper and lower lobes. Nodule in the right middle lobe is stable at approximate 5 mm. No new parenchymal mass is detected. The upper abdomen is unremarkable. Bony structures are nonacute. IMPRESSION: Stable CT chest when compared with exam from 01/03/2017. Right middle lobe pulmonary nodule is stable. No new abnormality is seen. Dictated by: Dictated on workstation # [id number]
== END ==
LOC: RAD 10:24
PROVIDERS: ATTEND Family Medicine
DX: C61 Malignant neoplasm of prostate (principal); J44.9 Chronic obstructive pulmonary disease, unspecified; R91.8 Other nonspecific abnormal finding of lung field; R59.1 Generalized enlarged lymph nodes
CPT/HCPCS: 36415; 70491; 71260; 82565; 84520

== ENCOUNTER → 2017-09-10 | Outpatient (CLI) | payer MEDICARE, BC ==
[~2017-09-10] MED LIST changes: -CATHETER FLUSH 10 ML SYR IV PRN; -IOHEXOL 350 MG/ML 100 ML (OMNIPAQUE 350) VIAL IV ONE; -NS 250 ML (IVPB) BAG IV ONE
--- NOTE | 2017-09-10 13:33 | Diagnostic Imaging Report ---
Pelvis and bilateral hips at 1125. Indication: Bilateral leg pain. A single AP view of the pelvis and AP and lateral views of both hips were obtained. There is no fracture, dislocation or acute bony abnormality evident. There is only mild degenerative disease of the hip and sacroiliac joints. The degenerative changes involving the hip joints seem similar to the prior lumbar spine exam of 12/22/2008. In the interval since the previous lumbar spine exam, the patient has undergone a fusion of L4-L5 and S1. The numerous metallic seed implants overlying the prostate gland seen previously are again evident. IMPRESSION: 1. There is no evidence for any acute bony abnormality. 2. There is only mild degenerative disease of the hip joints. 3. If clinical concern regarding an underlying bony abnormality persists and further imaging is desired, MRI would be recommended. Dictated by: Dictated on workstation # [id number]
== END ==
LOC: RAD 10:58
PROVIDERS: ATTEND Family Medicine
DX: M16.0 Bilateral primary osteoarthritis of hip (principal)
CPT/HCPCS: 73523

== ENCOUNTER → 2017-09-23 | Outpatient (CLI) | payer MEDICARE, BC ==
[2017-09-23 13:22] LABS: BASOPHILS % (AUTO) 0 % (0-10); EOSINOPHILS # (AUTO) 0.3 10^3/uL (0.0-0.3); EOSINOPHILS % (AUTO) 4 % (0-10); HEMATOCRIT 41 % (40-54); HEMOGLOBIN 14.3 G/DL (13.3-17.7); LYMPHOCYTES # (AUTO) 1.7 X 10^3 (1.0-4.0); LYMPHOCYTES % (AUTO) 24 % (12-44); MEAN CORPUSCULAR HEMOGLOBIN 36 PG (25-34); MEAN CORPUSCULAR HGB CONC 35 G/DL (32-36); MEAN CORPUSCULAR VOLUME 102 FL (80-99); MEAN PLATELET VOLUME 9.4 FL (7.4-10.4); MONOCYTES # (AUTO) 0.6 X 10^3 (0.0-1.0); MONOCYTES % (AUTO) 9 % (0-12); NEUTROPHILS # (AUTO) 4.5 X 10^3 (1.8-7.8); NEUTROPHILS % (AUTO) 64 % (42-75); PLATELET COUNT 173 10^3/uL (130-400); RED CELL DISTRIBUTION WIDTH 14.2 % (10.0-14.5)
[2017-09-23 13:42] LABS: ALBUMIN 3.9 GM/DL (3.2-4.5); BILIRUBIN,TOTAL 0.3 MG/DL (0.1-1.0); CALCIUM 9.1 MG/DL (8.5-10.1); CREATININE SERUM 1.22 MG/DL (0.60-1.30); POTASSIUM 4.3 MMOL/L (3.6-5.0); TOTAL PROTEIN 6.6 GM/DL (6.4-8.2)
== END ==
LOC: ONC 13:06
PROVIDERS: ATTEND Internal Medicine Hematology & Oncology
DX: I10 Essential (primary) hypertension (principal); Z85.46 Personal history of malignant neoplasm of prostate
CPT/HCPCS: 36415; 80053; 80061; 84153; 85025; 99213

== ENCOUNTER 2017-11-26 08:04 | Day surgery (SDC) | payer MEDICARE, BC ==
[~2017-11-26] VITALS: Ht 182.9 cm; Wt 95.3 kg
[2017-11-26] VITALS (10 sets, daily range): BP systolic 126–165; BP diastolic 78–109
[~2017-11-26 08:04] MED LIST changes: +LIDOCAINE 1% INJ 20 ML 20 ML VIAL ONE; +NS IV 1000 ML 1,000 ML ONE
[2017-11-26] MEDS ORDERED: HEParin (CATH LAB) 2,000 ML IV ONE (08:05)
[2017-11-26] MEDS ORDERED: NS IV 1000 ML 1,000 ML IV SCH ×2 (08:11→10:13)
[2017-11-26 08:31] LABS: HEMOGLOBIN 15.2 G/DL (13.3-17.7); MEAN PLATELET VOLUME 9.3 FL (7.4-10.4); RED BLOOD COUNT 4.35 10^6/uL (4.35-5.85); RED CELL DISTRIBUTION WIDTH 13.8 % (10.0-14.5); WHITE BLOOD COUNT 8.3 10^3/uL (4.3-11.0)
--- NOTE | 2017-11-26 08:39 | Diagnostic Imaging Report ---
INDICATION: Tobaccoism and peripheral vascular disease. TIME OF EXAM: 8:28 AM Comparison is made with prior chest from 07/18/2016. FINDINGS: Changes of median sternotomy and CABG are noted. The heart size is stable. There are some interstitial changes in both lungs, which appear chronic. No infiltrate, effusion or pneumothorax is seen. IMPRESSION: Stable chest. No acute feature is detected. Dictated by: Dictated on workstation # [id number]
[2017-11-26 08:51] LABS: PROTHROMBIN TIME PATIENT 13.5 SEC (12.2-14.7)
[2017-11-26] MEDS ORDERED: ALLO100T PO ×2 (08:51→08:52)
[2017-11-26] MEDS ORDERED: ATOR40TA70 PO (08:53)
[2017-11-26] MEDS ORDERED: CLOP75TA28 PO (08:54)
[2017-11-26] MEDS ORDERED: DOXA4TAB2 PO (08:55)
[2017-11-26] MEDS ORDERED: MAGN400C PO (08:57)
[2017-11-26 08:58] LABS: ALANINE AMINOTRANSFERASE 13 U/L (0-55); ALBUMIN 4.3 GM/DL (3.2-4.5); ALKALINE PHOSPHATASE 108 U/L (40-136); BILIRUBIN,TOTAL 0.8 MG/DL (0.1-1.0); BUN/CREATININE RATIO 13; CALCIUM 9.6 MG/DL (8.5-10.1); CARBON DIOXIDE 21 MMOL/L (21-32); CHLORIDE 108 MMOL/L (98-107); CHOLESTEROL 135 MG/DL (< 200); CREATININE SERUM 1.11 MG/DL (0.60-1.30); GFR ESTIMATED > 60; GLUCOSE 105 MG/DL (70-105); HDL CHOLESTEROL 33 MG/DL (40-60); SODIUM 140 MMOL/L (135-145); TOTAL PROTEIN 7.2 GM/DL (6.4-8.2); TRIGLYCERIDES 187 MG/DL (<150); VLDL CHOLESTEROL 37 MG/DL (5-40)
[2017-11-26] MEDS ORDERED: MULT-974 PO (08:58)
[2017-11-26] MEDS ORDERED: POTA99TA21 PO (08:59)
[2017-11-26] MEDS ORDERED: RANO10003 PO (09:01)
[2017-11-26] MEDS ORDERED: FLAX100031 PO (09:02)
[2017-11-26] MEDS ORDERED: MIDAZOLAM 5 MG/5 ML (VERSED) VIAL ONE (09:24)
[2017-11-26] MEDS ORDERED: fentaNYL INJECTION 100 MCG/2 ML AMP ONE (09:24)
--- NOTE | 2017-11-26 09:42 | Cardiac Procedure Note-CS/ASA ---
Pre-Procedure Note Pre-Op Procedure Note H&P Reviewed The H&P was reviewed, patient examined and no changes noted. Date H&P Reviewed: Nov 26, 2017 Time H&P Reviewed: 09:42 Conscious Sedation Pre-Proced Time Reviewed: 09:42 ASA Class: 3 Airway Mallampati Classification: (kake appropriate class) I. II. III, IV Lungs Heart ASA score ASA 1: a normal healthy patient ASA 2: a patient with a mild systemic disease (mid diabetes, controlled hypertension, obesity x ASA 3: a patient with a severe systemic disease that limits activity (angina , COPD, prior Myocardial infarction) ASA 4: a patient with an incapacitating disease that is a constant threat to life (CHF, renal failure) ASA 5: a moribund patient not expected to survive 24 hrs. (ruptured aneurysm) ASA 6: a declared brain patient whose organs are being harvested. For emergent operations, add the letter E after the classification Grade 3 Sedation Plan: Analgesia, Amnesia, Plan communicated to team members, Discussed options with patient/fam, Discussed risks with patient/fam Note The patient is an appropriate candidate to undergo the planned procedure, sedation, and anesthesia. The patient immediately re-assessed prior to indication. KAYLEY LAMBERT MD Nov 26, 2017 09:42
[2017-11-26] MEDS ORDERED: PATIENT MAY USE OWN MEDS, ALL PO SCH (10:15)
--- NOTE | 2017-11-26 10:18 | Peripheral Report ---
Peripheral Report Physician (s)/Commercial Lending Assistant (s) Physician KAYLEY LAMBERT MD Pre-Procedure Diagnosis Pre-Procedure Diagnosis: lower extremities pain, abnormal INNA Post-Procedure Note Procedure Start Date: Nov 26, 2017 Name of Procedure: Bilateral lower extremities runoff Findings/Procedure Note PROCEDURE NOTE: After explaining the procedure to the patient, all pros and cons were explained , all questions were answered. The patient signed the consent and then he was placed on the cardiac catheterization laboratory. The patient was placed on the cardiac catheterization laboratory. Groin was prepped SL fashion local anesthesia was used. Sheath placed in the right femoral artery. 5 Pashto pigtail advanced to the abdominal aorta just above the bifurcation and automated runoff with DSA was done, at the end of the procedure sheath was removed, Mynx device deployed FINDINGS: Right lower extremity tortuous common iliac artery, nonobstructive disease at the common femoral, superficial femoral artery, at the trifurcation the anterior tibial artery was not well-visualized proximally but it appeared to have rapid runoff down to the foot, the posterior tibial and peroneal arteries appeared normal Left lower extremity slightly less tortuous tortuous common iliac artery, nonobstructive disease at the common femoral, superficial femoral artery, at the trifurcation the anterior tibial artery was not well-visualized proximally but it appeared to have rapid runoff down to the foot, the posterior tibial and peroneal arteries appeared normal CONCLUSIONS: 1. Mild peripheral arterial disease, slightly tortuous iliac arteries, no obstructive disease down to the foot 2. Slightly ectatic abdominal aorta above the bifurcation. DISCUSSION AND RECOMMENDATIONS: Medical therapy is recommended no intervention is needed Anesthesia Type: Conscious Sedation Estimated blood loss (mL): 10 ml Contrast Amount: 55 ml Total Radiation Dose: 33 mGy Post-Procedure Diagnosis Post-operative diagnosis: Lower extremities pain Peripheral arterial disease Hypertension Hyperlipidemia KAYLEY LAMBERT MD Nov 26, 2017 10:18
== END 2017-11-26 14:40 | disposition home or self-care (01) ==
LOC: CATH 08:04 → SURG 10:33 → CATH 14:40
PROVIDERS: ATTEND Internal Medicine Cardiovascular Disease
DX: I73.9 Peripheral vascular disease, unspecified (principal); I77.811 Abdominal aortic ectasia; I10 Essential (primary) hypertension; E78.2 Mixed hyperlipidemia; M79.661 Pain in right lower leg; M79.662 Pain in left lower leg; I65.29 Occlusion and stenosis of unspecified carotid artery; I25.10 Atherosclerotic heart disease of native coronary artery without angina pectoris; E11.9 Type 2 diabetes mellitus without complications; E03.9 Hypothyroidism, unspecified; M19.91 Primary osteoarthritis, unspecified site; Z85.820 Personal history of malignant melanoma of skin; Z79.899 Other long term (current) drug therapy; Z95.1 Presence of aortocoronary bypass graft; Z85.46 Personal history of malignant neoplasm of prostate
CPT/HCPCS: 36415; 71045; 75716; 80053; 80061; 85027; 85610; 85730; 87081; 93005

== ENCOUNTER 2018-02-13 11:44 | Inpatient (IN) | payer MEDICARE, BC ==
[~2018-02-13] VITALS: Ht 182.9 cm; Wt 92.1 kg
[2018-02-13] VITALS (9 sets, daily range): BP systolic 101–115; BP diastolic 62–82
[~2018-02-13 11:44] MED LIST changes: +ALLO100T PO; +FLAX100031 PO; -LIDOCAINE 1% INJ 20 ML 20 ML VIAL ONE; +MAGN400C PO; +MULT-974 PO; -NS IV 1000 ML 1,000 ML ONE; +POTA99TA21 PO; +RANO10003 PO
--- OUTSIDE RECORDS SUMMARY | 2018-02-13 11:52 | XMS REPORT | CCD ---
Author Author [facility] Organization [facility] Address [address] [place] [address] Phone Care Team Providers Care [place] Representative Name Role Phone PP Unavailable CCM Unavailable Summary Purpose Interface Exchange Insurance Providers Payer name Policy type / Coverage type Covered republican ID Effective Begin Date Effective End Date WPS Medicare Part B Medicare Part B [id number] Unknown [facility] Medicare Part B [id number] Unknown Family history Mother Diagnosis Age At Onset Heart Attack Unknown Arthritis Unknown Dementia Unknown Grandfather Diagnosis Age At Onset Leukemia Unknown Father Diagnosis Age At Onset Hypertension Unknown Arthritis Unknown Heart Attack Unknown Social History Social History Element Codes Description Effective Dates Marital status Unknown Zoe 10/04/2015 Number of children Unknown 3 10/06/2014 Employment Unknown Retired 10/06/[address]: 88337915 Current every day smoker 10/06/2014 Number of years using tobacco Unknown > 50 10/06/2014 Number of cigarettes/day Unknown 10 ( Half a pack) 10/06/2014 Allergies, Adverse Reactions, Alerts Substance Reaction Codes Entered Date Inactivated Date Status * NO KNOWN DRUG ALLERGIES Unknown 08/29/2014 No Inactive Date Active Past Medical History Illness Codes Condition Status Onset Date Resolved Date Encounter for immunization ICD-9: V04.81 ICD-10: Z23 Active 02/12/2018 Unknown 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 Active 07/02/2016 Unknown Essential (primary) hypertension ICD-9: 401.1 ICD-10: I10 Active 07/02/2016 Unknown Mixed hyperlipidemia ICD-9: 272.2 ICD-10: E78.2 Active 01/03/2016 Unknown Pain in left knee ICD- 9: 719.46 ICD-10: M25.562 Active 10/03/2016 Unknown Pain in right hip ICD- 9: 719.45 ICD-10: M25.551 Active 08/28/2017 Unknown Pain in right knee ICD -9: 719.46 ICD-10: M25.561 Active 10/03/2016 Unknown Encounter for general adult medical examination with abnormal findings ICD-9: V70.0 ICD-10: Z00.01 Active 10/18/2016 Unknown Chronic pain syndrome ICD-9: 338.4 ICD-10: G89.4 Active 01/03/2016 Unknown Localized enlarged lymph nodes ICD-9: 785.6 ICD-10: R59.0 Active 07/31/2017 Unknown Tobacco use ICD-9: 305.1 ICD-10: Z72.0 Active 01/03/2016 Unknown Encounter for immunization ICD-9: V03.9 ICD-10: Z23 Active 01/03/2016 Unknown Iliotibial band syndrome, right leg ICD-9: 728.89 ICD-10: M76.31 Active 02/04/2017 Unknown Low back pain ICD-9: 724.2 ICD-10: M54.5 Active 08/29/2015 Unknown Essential (primary) hypertension ICD-9: 401.9 ICD-10: I10 Active 10/05/2014 Unknown Gastro-esophageal reflux disease without esophagitis ICD-9: 530.81 ICD-10: K21.9 Active 10/05/2014 Unknown Epigastric pain ICD-9 : 789.06 ICD-10: R10.13 Active 03/20/2015 Unknown Sciatica Unknown Active 01/05/2015 Unknown SCIATICA ICD-9: 724.3 Active 01/04/2015 Unknown VACCIN FOR INFLUENZA ICD-9: V04.81 Active 01/04/2015 Unknown Hypertension Unknown Active 10/06/2014 Unknown Hypothryroidism Unknown Active 10/06/2014 Unknown ESSENTIAL HYPERTENSION ICD-9: 401.9 Active 10/05/2014 Unknown Problems Condition Codes Effective Dates Condition Status Encounter for immunization ICD-9: V04.81 ICD-10: Z23 02/12/2018 Active 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 07/02/2016 Active Essential (primary) hypertension ICD-9: 401.1 ICD-10: I10 07/02/2016 Active Mixed hyperlipidemia ICD-9: 272.2 ICD-10: E78.2 01/03/2016 Active Pain in left knee ICD- 9: 719.46 ICD-10: M25.562 10/03/2016 Active Pain in right hip ICD- 9: 719.45 ICD-10: M25.551 08/28/2017 Active Pain in right knee ICD -9: 719.46 ICD-10: M25.561 10/03/2016 Active Encounter for general adult medical examination with abnormal findings ICD-9: V70.0 ICD-10: Z00.01 10/18/2016 Active Chronic pain syndrome ICD-9: 338.4 ICD-10: G89.4 01/03/2016 Active Localized enlarged lymph nodes ICD-9: 785.6 ICD-10: R59.0 07/31/2017 Active Tobacco use ICD-9: 305.1 ICD-10: Z72.0 01/03/2016 Active Encounter for immunization ICD-9: V03.9 ICD-10: Z23 01/03/2016 Active Iliotibial band syndrome, right leg ICD-9: 728.89 ICD-10: M76.31 02/04/2017 Active Low back pain ICD-9: 724.2 ICD-10: M54.5 08/29/2015 Active Essential (primary) hypertension ICD-9: 401.9 ICD-10: I10 10/05/2014 Active Gastro-esophageal reflux disease without esophagitis ICD-9: 530.81 ICD-10: K21.9 10/05/2014 Active Epigastric pain ICD-9 : 789.06 ICD-10: R10.13 03/20/2015 Active Sciatica Unknown 01/05/2015 Active SCIATICA ICD-9: 724.3 01/04/2015 Active VACCIN FOR INFLUENZA ICD-9: V04.81 01/04/2015 Active Hypertension Unknown 10/06/2014 Active Hypothryroidism Unknown 10/06/2014 Active ESSENTIAL HYPERTENSION ICD-9: 401.9 10/05/2014 Active Medications Medication Codes Instructions Start Date Stop Date Status Fill Instructions levothyroxine 50 mcg tablet RxNorm: 854030 1 TABLET(S) PO DAILY 02/10/2018 11/06/2018 Active hydrocodone 10 mg-acetaminophen 325 mg tablet RxNorm: 882435 1-2 Tablet(s) PO Q4 PRN as needed for pain 02/02/20182017 Active pantoprazole 40 mg tablet,delayed release RxNorm: 147823 1 Tablet(s) PO daily 01/16/2018 01/10/2019 Active metoprolol succinate ER 25 mg tablet,extended release 24 hr RxNorm: 697801 1 TABLET(S) PO DAILY 01/13/2018 10/09/2018 Active hydrocodone 10 mg-acetaminophen 325 mg tablet RxNorm: 839611 1-2 Tablet(s) PO Q4 PRN as needed for pain 12/31/20172017 Inactive hydrocodone 10 mg-acetaminophen 325 mg tablet RxNorm: 393308 1-2 Tablet(s) PO Q4 PRN as needed for pain 11/28/20172017 Inactive hydrocodone 10 mg-acetaminophen 325 mg tablet RxNorm: 021921 1-2 Tablet(s) PO Q4 PRN as needed for pain 10/24/20172017 Inactive hydrocodone 10 mg-acetaminophen 325 mg tablet RxNorm: 286287 1-2 Tablet(s) PO Q4 PRN as needed for pain 09/26/20172017 Inactive doxazosin 4 mg tablet RxNorm: 425638 1 TABLET(S) PO DAILY 201708/19/2018 Active allopurinol 100 mg tablet RxNorm: 556693 3 TABLET(S) PO DAILY - 2 IN THE AM AND 1 AT HS 08/04/2017 04/30/2018 Active hydrocodone 10 mg-acetaminophen 325 mg tablet RxNorm: 592369 1-2 Tablet(s) PO Q4 PRN as needed for pain 07/31/20172017 Inactive Hysingla ER 120 mg tablet, crush resistant, extended release RxNorm: 9694276 1 Tablet(s) PO daily 07/31/20172017 Inactive hydrocodone 10 mg-acetaminophen 325 mg tablet RxNorm: 734740 1-2 Tablet(s) PO Q4 PRN as needed for pain 07/03/20172017 Inactive Lipitor 40 mg tablet RxNorm: 429662 1 Tablet(s) PO daily 201705/29/2018 Active hydrocodone 10 mg-acetaminophen 325 mg tablet RxNorm: 214549 1-2 Tablet(s) PO Q4 PRN as needed for pain 06/04/20172017 Inactive Tessalon 200 mg capsule RxNorm: 080971 1 Capsule(s) PO TID as needed cough 05/30/2017 06/03/2017 Inactive Zithromax Z-Elmer 250 mg tablet RxNorm: 541334 1 Tablet(s) PO UD 05/30/2017 12/08/2017 Inactive Tessalon 200 mg capsule RxNorm: 185939 1 Capsule(s) PO TID as needed cough 05/30/2017 05/29/2017 Inactive levothyroxine 50 mcg tablet RxNorm: 764384 1 TABLET(S) PO DAILY 05/05/2017 01/29/2018 Inactive metoprolol succinate ER 25 mg tablet,extended release 24 hr RxNorm: 448968 1 TABLET(S) PO DAILY 04/08/2017 01/02/2018 Inactive hydrocodone 10 mg-acetaminophen 325 mg tablet RxNorm: 170903 1-2 Tablet(s) PO Q4 PRN as needed for pain 04/04/20172017 Inactive hydrocodone 10 mg-acetaminophen 325 mg tablet RxNorm: 122704 1-2 Tablet(s) PO Q4 PRN as needed for pain 03/03/20172016 Inactive hydrocodone 10 mg-acetaminophen 325 mg tablet RxNorm: 721161 1-2 Tablet(s) PO Q4 PRN as needed for pain 01/30/20172016 Inactive hydrocodone 10 mg-acetaminophen 325 mg tablet RxNorm: 841129 1-2 Tablet(s) PO Q4 PRN as needed for pain 01/01/20172016 Inactive hydrocodone 10 mg-acetaminophen 325 mg tablet RxNorm: 745372 1-2 Tablet(s) PO Q4 PRN as needed for pain 12/02/20162016 Inactive hydrocodone 10 mg-acetaminophen 325 mg tablet RxNorm: 045788 1-2 Tablet(s) PO Q4 PRN as needed for pain 10/31/20162016 Inactive hydrocodone 10 mg-acetaminophen 325 mg tablet RxNorm: 022595 1-2 Tablet(s) PO Q4 PRN as needed for pain 10/03/20162016 Inactive pantoprazole 40 mg tablet,delayed release RxNorm: 705098 1 Tablet(s) PO daily 09/02/2016 12/03/2017 Inactive hydrocodone 10 mg-acetaminophen 325 mg tablet RxNorm: 928766 1-2 Tablet(s) PO Q4 PRN as needed for pain 08/30/20162016 Inactive pantoprazole 40 mg tablet,delayed release RxNorm: 263218 1 Tablet(s) PO daily 08/19/2016 09/01/2016 Inactive doxazosin 4 mg tablet RxNorm: 808265 1 TABLET(S) PO DAILY 201608/06/2017 Inactive levothyroxine 50 mcg tablet RxNorm: 169263 1 TABLET(S) PO DAILY 08/12/2016 05/04/2017 Inactive metoprolol succinate ER 25 mg tablet,extended release 24 hr RxNorm: 324678 1 TABLET(S) PO DAILY 07/08/2016 04/03/2017 Inactive hydrocodone 10 mg-acetaminophen 325 mg tablet RxNorm: 051286 1-2 Tablet(s) PO Q4 PRN as needed for pain 07/02/20162016 Inactive hydrocodone 10 mg-acetaminophen 325 mg tablet RxNorm: 863699 1-2 Tablet(s) PO Q4 PRN as needed for pain 06/05/20162016 Inactive hydrocodone 10 mg-acetaminophen 325 mg tablet RxNorm: 180459 1-2 Tablet(s) PO Q4 PRN as needed for pain 05/06/20162016 Inactive hydrocodone 10 mg-acetaminophen 325 mg tablet RxNorm: 804205 1-2 Tablet(s) PO Q4 PRN as needed for pain 05/06/20162016 Inactive allopurinol 100 mg tablet RxNorm: 287091 3 Tablet(s) PO daily - 2 in the AM and 1 at HS 05/06/2016 04/30/2017 Inactive hydrocodone 10 mg-acetaminophen 325 mg tablet RxNorm: 913052 1-2 Tablet(s) PO Q4 PRN as needed for pain 03/04/20162016 Inactive hydrocodone 10 mg-acetaminophen 325 mg tablet RxNorm: 590686 1-2 Tablet(s) PO Q4 PRN as needed for pain 02/01/20162015 Inactive omeprazole 20 mg capsule,delayed release RxNorm: 398284 1 Capsule(s) PO BID 01/04/2016 07/01/2016 Inactive atorvastatin 40 mg tablet RxNorm: 110905 1 Tablet(s) PO daily 01/04/2016 06/03/2017 Inactive lisinopril 10 mg tablet RxNorm: 457856 1 Tablet(s) PO daily 05/05/2017 Inactive meloxicam 15 mg tablet RxNorm: 625560 TAKE 1 TABLET BY MOUTH EVERY DAY 10/17/2015 07/01/2016 Inactive levothyroxine 50 mcg tablet RxNorm: 156796 1 TABLET(S) PO DAILY 10/17/2015 07/12/2016 Inactive hydrocodone 10 mg-acetaminophen 325 mg tablet RxNorm: 652047 1-2 Tablet(s) PO Q4 PRN as needed for pain 10/10/20152015 Inactive Lipitor 40 mg tablet RxNorm: 280593 1 Tablet(s) PO daily 201501/03/2016 Inactive MS Contin 60 mg tablet,extended release RxNorm: 814093 1 Tablet(s) PO BID 08/30/2015 10/03/2015 Inactive hydrocodone 10 mg-acetaminophen 325 mg tablet RxNorm: 834730 1-2 Tablet(s) PO Q4 PRN as needed for pain 08/30/20152015 Inactive doxazosin 4 mg tablet RxNorm: 341603 1 Tablet(s) PO daily 201507/26/2016 Inactive OxyContin 20 mg tablet,crush resistant,extended release RxNorm: 9754849 1 Tablet(s ) PO BID 08/02/2015 08/29/2015 Inactive meloxicam 15 mg tablet RxNorm: 002186 TAKE 1 TABLET BY MOUTH EVERY DAY 07/25/2015 10/16/2015 Inactive hydrocodone 10 mg-acetaminophen 325 mg tablet RxNorm: 054361 1 Tablet(s) PO Q4 PRN as needed for pain 07/13/20152015 Inactive levothyroxine 50 mcg tablet RxNorm: 605292 1 Tablet(s) PO daily 07/13/2015 10/10/2015 Inactive metoprolol succinate ER 25 mg tablet,extended release 24 hr RxNorm: 072596 1 Tablet(s) PO daily 06/30/2015 06/23/2016 Inactive hydrocodone 10 mg-acetaminophen 325 mg tablet RxNorm: 938505 1 Tablet(s) PO Q4 PRN as needed for pain 04/21/20152015 Inactive hydrocodone 10 mg-acetaminophen 325 mg tablet RxNorm: 410161 1 Tablet(s) PO Q4 PRN as needed for pain 03/30/20152015 Inactive allopurinol 100 mg tablet RxNorm: 843241 3 Tablet(s) PO 2 at am 1 at hs UD 02/08/2015 02/02/2016 Inactive hydrocodone 10 mg-acetaminophen 325 mg tablet RxNorm: 271276 1 Tablet(s) PO Q4 PRN 01/25/2015 03/29/2015 Inactive omeprazole 20 mg capsule,delayed release RxNorm: 501947 1 Capsule(s) PO BID 1at am 1at pm 01/05/2015 12/30/2015 Inactive hydrocodone 10 mg-acetaminophen 325 mg tablet RxNorm: 897110 1 Tablet(s) PO Q4 PRN 01/05/2015 01/24/2015 Inactive Voltaren 1 % topical gel RxNorm: 525704 4 Gram(s) TOP QID 10/0612/04/2014 Inactive Multivitamin & Mineral Formula oral RxNorm: oral No Start Date Active potassium 99 mg tablet RxNorm: 1 Tablet(s) PO daily No Start Date Active B sxlqfor-O-tegcogq tablet RxNorm: 1 Tablet(s) PO daily No Start Date Active clopidogrel 75 mg tablet RxNorm: 204136 1 Tablet(s) PO daily No Start Date Active magnesium oxide 400 mg tablet RxNorm: 526835 1 Tablet(s) PO daily No Start Date Active aspirin 81 mg tablet RxNorm: 207841 1 Tablet(s) PO daily No Start Date Active omega 3 183.3 mg-dha 75 mg-epa 91.6 mg-fish oil 306 mg capsule RxNorm: 1 Capsule(s) PO daily No Start Date Active Calcium + D 600 mg (1,500)-200 unit tablet RxNorm: 637175 1 Tablet(s) PO daily No Start Date Active Ranexa 500 mg tablet,extended release RxNorm: 200678 1 Tablet(s) PO BID No Start Date Active allopurinol 100 mg tablet RxNorm: 550716 Tablet(s) PO 2 at am 1 at hs No Start Date 02/07/2015 Inactive Zithromax Z-Elmer 250 mg tablet RxNorm: 207502 1 Tablet(s) PO UD No Start Date 05/29/2017 Inactive pantoprazole 40 mg tablet,delayed release RxNorm: 988357 1 Tablet(s) PO daily No Start Date 08/18/2016 Inactive meloxicam 15 mg tablet RxNorm: 120721 1 Tablet(s) PO daily No Start Date 07/24/2015 Inactive doxazosin 4 mg tablet RxNorm: 581906 1 Tablet(s) PO daily No Start Date 08/01/2015 Inactive hydrocodone 7.5 mg-acetaminophen 325 mg tablet RxNorm: 520838 1 Tablet(s) PO QID as needed for pain No Start Date 2014 Inactive Vitamin D3 5,000 unit tablet RxNorm: 278889 1 Tablet(s) PO daily No Start Date 07/01/2016 Inactive B-12 Plus 1,000 mcg/mL injection solution RxNorm: 289778 1 Milliliter(s) Inj daily No Start Date 07/01/2016 Inactive magnesium citrate RxNorm: 6574 miscellaneous No Start Date 07/02/2016 Inactive Lipitor 20 mg tablet RxNorm: 709152 1 Tablet(s) PO daily No Start Date 08/29/2015 Inactive metoprolol succinate ER 25 mg tablet,extended release 24 hr RxNorm: 975998 1 Tablet(s) PO daily No Start Date 2015 Inactive lisinopril 10 mg tablet RxNorm: 443032 1 Tablet(s) PO daily No Start Date 01/03/2016 Inactive levothyroxine 50 mcg tablet RxNorm: 530681 1 Tablet(s) PO daily No Start Date 07/12/2015 Inactive omeprazole 20 mg capsule,delayed release RxNorm: 416356 1 Capsule(s) PO daily No Start Date 01/18/2018 Inactive omeprazole 20 mg capsule,delayed release RxNorm: 548731 Capsule(s) PO daily 1at am 1at pm No Start Date 01/04/2015 Inactive Medication Administered No Medication Administered data Immunizations Vaccine Codes Date Status Influenza CVX: 141 02/04/2017 completed Influenza CVX: 141 01/04/2016 completed Pneumococcal (Adult) CVX: 133 01/04/2016 completed Influenza CVX: 141 01/05/2015 completed Influenza CVX: 141 11/12/2013 completed Pneumococcal CVX: 33 11/12/2013 completed Assessments Condition Codes Effective Dates Encounter for immunization ICD-10: Z23 ICD-9: V04.81 02/12/2018 Pain in right knee ICD-10: M25.561 ICD-9: 719.46 12/04/2017 Pain in left knee ICD-10: M25.562 ICD-9: 719.46 12/04/2017 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 ICD-9: 244.8 12/04/2017 Mixed hyperlipidemia ICD-10: E78.2 ICD-9: 272.2 12/04/2017 Essential (primary) hypertension ICD-10: I10 ICD-9: 401.1 12/04/2017 Encounter for general adult medical examination with abnormal findings ICD-10: Z00.01 ICD-9: V70.0 10/24/2017 Pain in right hip ICD-10: M25.551 ICD-9: 719.45 08/28/2017 Chronic pain syndrome ICD-10: G89.4 ICD-9: 338.4 07/31/2017 Localized enlarged lymph nodes ICD-10: R59.0 ICD-9: 785.6 07/31/2017 Tobacco use ICD-10: Z72.0 ICD-9: 305.1 07/31/2017 Encounter for immunization ICD-10: Z23 ICD-9: V03.9 02/04/2017 Iliotibial band syndrome, right leg ICD-10: M76.31 ICD-9: 728.89 02/04/2017 Low back pain ICD-10: M54.5 ICD-9: 724.2 02/04/2017 Essential (primary) hypertension ICD-10: I10 ICD-9: 401.9 04/04/2016 Gastro-esophageal reflux disease without esophagitis ICD-10 : K21.9 ICD-9: 530.81 01/04/2016 Epigastric pain ICD-10: R10.13 ICD-9: 789.06 03/21/2015 VACCIN FOR INFLUENZA ICD-9: V04.81 2014 ESSENTIAL HYPERTENSION ICD-9: 401.9 01/05 SCIATICA ICD-9: 724.3 01/05/2015 ESOPHAGEAL REFLUX ICD-9: 530.81 2014 HYPOTHYROIDISM ICD-9: 244.9 10/06/2014 Reason For Visit Reason For Visit Effective Dates Notes vaccination against influenza 02/12/2018 medication follow up 12/04/2017 Annual Medicare Wellness Exam 10/24/2017 medication follow up 08/28/2017 medication follow up 07/31/2017 back pain 06/04/2017 back pain 02/04/2017 Annual Medicare Wellness Exam 10/18/2016 back pain 10/03/2016 back pain 07/02/2016 back pain 04/04/2016 back pain 01/04/2016 back pain 10/04/2015 back pain 08/30/2015 back pain 08/02/2015 back pain 04/21/2015 chest pain/pressure 03/21/2015 joint complaint 01/05/2015 joint complaint 10/06/2014 Results Observation Observation Code Item Item Code Result Date Free T4 Pep230 FREE T4 0.87 ng/dL 12/04/2017 Tsh Ord6 TSH (3rd IS) 3.04 uIU/mL 12/04/2017 Lipid Ord30 CHOL 164 mg/dL 03/17/2017 Lipid Ord30 HDL 43.0 mg/dl 03/17/2017 Lipid Ord30 TRIG 144 mg/dL 03/17/2017 Lipid Ord30 LDL 92 mg/dL 03/17/2017 Lipid Ord30 C/HDL 3.8 Ratio 03/17/2017 Hepatic Yby936 ALBUMIN 4.4 g/dL 03/17/2017 Hepatic Bmh961 TPRO 7.3 g/dL 03/17/2017 Hepatic Eyz408 GLOB 2.9 g/dL 03/17/2017 Hepatic Hgd674 A/G Ratio 1.5 Ratio 03/17/2017 Hepatic Kxz521 ALK PHOS 125 U/L 03/17/2017 Hepatic Jgb948 ALT(SGPT) 15 U/L 03/17/2017 Hepatic Ffy782 AST(SGOT) 22 U/L 03/17/2017 Hepatic Mrq620 BILI T 0.7 mg/dL 03/17/2017 Hepatic Tha613 BILI D 0.1 mg/dL 03/17/2017 Hepatic Rap818 BILI I 0.6 mg/dL 03/17/2017 Tsh Ord6 hTSH II 2.89 uIU/mL 01/13/2017 Comp Metabolic Txa995 NA 139 mEq/L 01/13/2017 Comp Metabolic Xvf021 K 4.4 mEq/L 01/13/2017 Comp Metabolic Ywc010 CL 105 mEq/L 01/13/2017 Comp Metabolic Tqy300 CO2 29.0 mEq/L 01/13/2017 Comp Metabolic Fun744 ANION GAP 9 01/13/2017 Comp Metabolic Pzx165 GLUCOSE 105 mg/dL 01/13/2017 Comp Metabolic Rnj874 Creat 1.1 mg/dL 01/13/2017 Comp Metabolic Jue784 eGFR 68 ml/min/1.73m2 01/13/2017 Comp Metabolic Rug685 BUN 12 mg/dL 01/13/2017 Comp Metabolic Ffq820 B/C Ratio 10.7 Ratio 01/13/2017 Comp Metabolic Zmp117 CALCIUM 9.2 mg/dL 01/13/2017 Comp Metabolic Tsu540 ALK PHOS 90 U/L 01/13/2017 Comp Metabolic Uvo045 AST(SGOT) 18 U/L 01/13/2017 Comp Metabolic Bdm577 ALT(SGPT) 12 U/L 01/13/2017 Comp Metabolic Utl511 BILI T 0.5 mg/dL 01/13/2017 Comp Metabolic Zbq515 ALBUMIN 4.1 g/dL 01/13/2017 Comp Metabolic Und354 TPRO 6.4 g/dL 01/13/2017 Comp Metabolic Twb338 GLOB 2.3 g/dL 01/13/2017 Comp Metabolic Zmy700 A/G Ratio 1.8 Ratio 01/13/2017 Comp Metabolic Bik392 Osmo 278 mOsmo 01/13/2017 Lipid Ord30 CHOL [...] 104.1 fl 01/13/2017 Cbc With Differential Ord2 MCH 35.6 pg 01/13/2017 Cbc With Differential Ord2 [place]% 10.5 % 01/13/2017 Cbc With Differential Ord2 Eos% 3.4 % 01/13/2017 Cbc With Differential Ord2 MCHC 34.2 pg 01/13/2017 Cbc With Differential Ord2 PLT 188 K/ul 01/13/2017 Cbc With Differential Ord2 Baso% 0.3 % 01/13/2017 Cbc With Differential Ord2 RDW 14.3 % 01/13/2017 Cbc With Differential Ord2 Neut ABS# 4.75 K/ul 01/13/2017 Cbc With Differential Ord2 Lymph ABS# 1.30 K/ul 01/13/2017 Cbc With Differential Ord2 [place] ABS# 0.7 K/ul 01/13/2017 Cbc With Differential Ord2 Eos ABS# 0.2 K/ul 01/13/2017 Cbc With Differential Ord2 Baso ABS# 0.0 K/ul 01/13/2017 Total Psa Ord10 PSA 0.02 ng/mL 01/13/2017 Vitamin D 25 Oh Ags4992 VITAMIN D, 25 HYDROXY 65.24 ng/mL Tsh Ord6 hTSH II 1.32 uIU/mL 10/20/2014 Comp Metabolic Ort214 NA 138 mEq/L 10/20/2014 Comp Metabolic Epx821 K 4.4 mEq/L 10/20/2014 Comp Metabolic Wwg837 CL 106 mEq/L 10/20/2014 Comp Metabolic Gdu819 CO2 28.0 mEq/L 10/20/2014 Comp Metabolic Wkh122 ANION GAP 8 10/20/2014 Comp Metabolic Vcj337 GLUCOSE 98 mg/dL 10/20/2014 Comp Metabolic Ezm034 Creat 1.0 mg/dL 10/20/2014 Comp Metabolic Nqr143 eGFR 74 ml/min/1.73m2 10/20/2014 Comp Metabolic Jfk665 BUN 14 mg/dL 10/20/2014 Comp Metabolic Zjq754 B/C Ratio 13.5 Ratio 10/20/2014 Comp Metabolic Xwi302 CALCIUM 9.4 mg/dL 10/20/2014 Comp Metabolic Rvb915 ALK PHOS 125 U/L 10/20/2014 Comp Metabolic Cfa139 AST(SGOT) 22 U/L 10/20/2014 Comp Metabolic Egl912 ALT(SGPT) 20 U/L 10/20/2014 Comp Metabolic Jin552 BILI T 0.5 mg/dL 10/20/2014 Comp Metabolic Fra057 ALBUMIN 4.4 g/dL 10/20/2014 Comp Metabolic Yvk458 TPRO 6.7 g/dL 10/20/2014 Comp Metabolic Wnz565 GLOB 2.3 g/dL 10/20/2014 Comp Metabolic Pbw541 A/G Ratio 1.9 Ratio 10/20/2014 Comp Metabolic Lgd017 Osmo 276 mOsmo 10/20/2014 Cbc With Differential [...] Result Effective Dates Constitutional No recent illness 2017 Constitutional No anorexia 12/04/2017 Constitutional No night sweats 2017 Constitutional No chills 12/04/2017 Constitutional No diaphoresis 12/04/2017 Constitutional No fatigue 12/04/2017 Constitutional No fever 12/04/2017 Constitutional No insomnia 12/04/2017 Constitutional No malaise 12/04/2017 Eyes No eye erythema 12/04/2017 Ears/Nose/Throat/Neck No dizziness 2017 Ears/Nose/Throat/Neck No headache 2017 Ears/Nose/Throat/Neck No nasal allergies 12/04/2017 Ears/Nose/Throat/Neck No nasal discharge 12/04/2017 Cardiovascular No chest pain/pressure Cardiovascular No dyspnea 12/04/2017 Cardiovascular No edema 12/04/2017 Respiratory No productive sputum 2017 Respiratory cigarette smoking 12/04/2017 Respiratory No cough 12/04/2017 Gastrointestinal No abdominal pain 2017 Gastrointestinal No constipation 2017 Gastrointestinal No diarrhea 12/04/2017 Genitourinary/Nephrology No dysuria 12/04 Musculoskeletal stiffness 12/04/2017 Musculoskeletal arthralgia(s) 12/04/2017 Musculoskeletal back pain 12/04/2017 Musculoskeletal muscle weakness 2017 Musculoskeletal sciatica 12/04/2017 Dermatologic No rash 12/04/2017 Neurologic No alteration of consciousness 12/04/2017 Psychiatric No anxiety 12/04/2017 Psychiatric No depression 12/04/2017 Musculoskeletal joint complaint 2017 Musculoskeletal shoulder pain 12/04/2017 Constitutional No recent illness 2017 Constitutional No chills 10/24/2017 Constitutional No diaphoresis 10/24/2017 Constitutional No fever 10/24/2017 Eyes No eye erythema 10/24/2017 Ears/Nose/Throat/Neck No nasal discharge 10/24/2017 Cardiovascular No chest pain/pressure Cardiovascular No dyspnea 10/24/2017 Respiratory No cough 10/24/2017 Respiratory No dyspnea 10/24/2017 Neurologic No alteration of consciousness 10/24/2017 Neurologic No mental status change 2017 Constitutional No recent illness 2017 Constitutional No anorexia 08/28/2017 Constitutional No night sweats 2017 Constitutional No chills 08/28/2017 Constitutional No diaphoresis 08/28/2017 Constitutional No fatigue 08/28/2017 Constitutional No fever 08/28/2017 Constitutional No insomnia 08/28/2017 Constitutional No malaise 08/28/2017 Eyes No eye erythema 08/28/2017 Ears/Nose/Throat/Neck No dizziness 2017 Ears/Nose/Throat/Neck No headache 2017 Ears/Nose/Throat/Neck No nasal allergies 08/28/2017 Ears/Nose/Throat/Neck No nasal discharge 08/28/2017 Cardiovascular No chest pain/pressure Cardiovascular No dyspnea 08/28/2017 Cardiovascular No edema 08/28/2017 Respiratory No productive sputum 2017 Respiratory cigarette smoking 08/28/2017 Respiratory No cough 08/28/2017 Gastrointestinal No abdominal pain 2017 Gastrointestinal No constipation 2017 Gastrointestinal No diarrhea 08/28/2017 Genitourinary/Nephrology No dysuria 08/28 Musculoskeletal stiffness 08/28/2017 Musculoskeletal arthralgia(s) 08/28/2017 Musculoskeletal back pain 08/28/2017 Musculoskeletal muscle weakness 2017 Musculoskeletal sciatica 08/28/2017 Dermatologic No rash 08/28/2017 Neurologic No alteration of consciousness 08/28/2017 Psychiatric No anxiety 08/28/2017 Psychiatric No depression 08/28/2017 Constitutional No recent illness 2017 Constitutional No anorexia 07/31/2017 Constitutional No night sweats 2017 Constitutional No chills 07/31/2017 Constitutional No diaphoresis 07/31/2017 Constitutional No fatigue 07/31/2017 Constitutional No fever 07/31/2017 Constitutional No insomnia 07/31/2017 Constitutional No malaise 07/31/2017 Eyes No eye erythema 07/31/2017 Ears/Nose/Throat/Neck No dizziness 2017 Ears/Nose/Throat/Neck No headache 2017 Ears/Nose/Throat/Neck No nasal allergies 07/31/2017 Ears/Nose/Throat/Neck No nasal discharge 07/31/2017 Cardiovascular No chest pain/pressure Cardiovascular No dyspnea 07/31/2017 Cardiovascular No edema 07/31/2017 Respiratory No productive sputum 2017 Respiratory cigarette smoking 07/31/2017 Respiratory No cough 07/31/2017 Gastrointestinal No abdominal pain 2017 Gastrointestinal No constipation 2017 Gastrointestinal No diarrhea 07/31/2017 Genitourinary/Nephrology No dysuria 07/31 Musculoskeletal stiffness 07/31/2017 Musculoskeletal back pain 07/31/2017 Musculoskeletal muscle weakness 2017 Musculoskeletal sciatica 07/31/2017 Dermatologic No rash 07/31/2017 Neurologic No alteration of consciousness 07/31/2017 Psychiatric No anxiety 07/31/2017 Psychiatric No depression 07/31/2017 Musculoskeletal arthralgia(s) 07/31/2017 Constitutional No recent illness 2017 Constitutional No anorexia 06/04/2017 Constitutional No night sweats 2017 Constitutional No chills 06/04/2017 Constitutional No diaphoresis 06/04/2017 Constitutional No fatigue 06/04/2017 Constitutional No fever 06/04/2017 Constitutional No insomnia 06/04/2017 Constitutional No malaise 06/04/2017 Eyes No eye erythema 06/04/2017 Ears/Nose/Throat/Neck No dizziness 2017 Ears/Nose/Throat/Neck No headache 2017 Ears/Nose/Throat/Neck No nasal allergies 06/04/2017 Ears/Nose/Throat/Neck No nasal discharge 06/04/2017 Cardiovascular No chest pain/pressure Cardiovascular No dyspnea 06/04/2017 Cardiovascular No edema 06/04/2017 Respiratory No productive sputum 2017 Respiratory cigarette smoking 06/04/2017 Respiratory No cough 06/04/2017 Gastrointestinal No abdominal pain 2017 Gastrointestinal No constipation 2017 Gastrointestinal No diarrhea 06/04/2017 Genitourinary/Nephrology No dysuria 06/04 Musculoskeletal stiffness 06/04/2017 Musculoskeletal arthralgia(s) 06/04/2017 Musculoskeletal back pain 06/04/2017 Musculoskeletal muscle weakness 2017 Musculoskeletal sciatica 06/04/2017 Dermatologic No rash 06/04/2017 Neurologic No alteration of consciousness 06/04/2017 Psychiatric No anxiety 06/04/2017 Psychiatric No depression 06/04/2017 Constitutional No recent illness 2016 Constitutional No [...] 1994 Constitutional general appearance Development: well developed 12/04/2017 None Full Exam - General 1994 Constitutional general appearance Development: appears stated age 0812/04/2017 None Full Exam - General 1994 Constitutional general appearance Hygiene/Attention to Grooming: good hygiene 12/04/2017 None Full Exam - General 1994 Eyes conjunctiva /eyelids Overall: conjunctiva clear 12/04/2017 None Full Exam - General 1994 Eyes conjunctiva /eyelids Overall: cornea clear 12/04/2017 None Full Exam - General 1994 Eyes conjunctiva /eyelids Overall: eyelids normal 12/04/2017 None Full Exam - General 1994 Eyes pupils and irises Overall: pupils equal, round, reactive to light and accomodation 12/04/2017 None Full Exam - General 1994 Ears/Nose/Throat otoscopic exam Overall: external auditory canals clear 12/04/2017 None Full Exam - General 1994 Ears/Nose/Throat otoscopic exam Overall: tympanic membranes clear 12/04/2017 None Full Exam - General 1994 Ears/Nose/Throat lips/teeth/gingiva Overall: benign lips 12/04/2017 None Full Exam - General 1994 Ears/Nose/Throat lips/teeth/gingiva Overall: normal dentition 12/04/2017 None Full Exam - General 1994 Ears/Nose/Throat oral cavity/pharynx/larynx Overall: oral mucosa clear 12/04/2017 None Full Exam - General 1994 Ears/Nose/Throat oral cavity/pharynx/larynx Overall: oropharyngeal mucosa clear 12/04/2017 None Full Exam - General 1994 Ears/Nose/Throat oral cavity/pharynx/larynx Overall: hypopharynx benign 12/04/2017 None Full Exam - General 1994 Ears/Nose/Throat oral cavity/pharynx/larynx Overall: no masses 12/04/2017 None Full Exam - General 1994 Respiratory auscultation Overall: breath sounds clear bilaterally 12/04/2017 None Full Exam - General 1994 Respiratory respiratory effort/rhythm Overall: no retractions 12/04/2017 None Full Exam - General 1994 Respiratory respiratory effort/rhythm Overall: normal rate 12/04/2017 None Full Exam - General 1994 Cardiovascular extremities Overall: no clubbing 12/04/2017 None Full Exam - General 1994 Cardiovascular auscultation of heart Overall: regular rate 12/04/2017 None Full Exam - General 1994 Cardiovascular auscultation of heart Overall: normal heart sounds 12/04/2017 None Full Exam - General 1994 Abdomen abdominal exam Overall: no tenderness 12/04/2017 None Full Exam - General 1994 Abdomen abdominal exam Overall: normal bowel sounds 12/04/2017 None Full Exam - General 1994 Lymphatic neck nodes Overall: anterior cervical chain benign 12/04/2017 None Full Exam - General 1994 Lymphatic neck nodes Overall: posterior cervical chain benign 12/04/2017 None Full Exam - General 1994 Musculoskeletal spine, ribs and pelvis Overall: spine benign 12/04/2017 None Full Exam - General 1994 Musculoskeletal spine, ribs and pelvis Overall: sacroiliac joint benign 12/04/2017 None Full Exam - General 1994 Musculoskeletal spine, ribs and pelvis Overall: good posture 12/04/2017 None Full Exam - General 1994 Musculoskeletal head and neck Overall: head atraumatic 12/04/2017 None Full Exam - General 1994 Musculoskeletal head and neck Overall: cervical spine benign 12/04/2017 None Full Exam - General 1994 Neurologic deep tendon reflexes Overall: deep tendon reflexes intact 12/04/2017 None Full Exam - General 1994 Neurologic cranial nerves Overall: crainial nerves 2 - 12 grossly intact 12/04/2017 None Full Exam - General 1994 Psychiatric orientation/consciousness Overall: oriented to person, place and time 12/04/2017 None Full Exam - General 1994 Psychiatric mood and affect Overall: normal mood and affect 12/04/2017 None Full Exam - General 1994 Musculoskeletal upper extremity Inspection - shoulder: presence of a scar 12/04/2017 in a sling Full Exam - General 1994 Constitutional general appearance Overall: well developed 10/24/2017 None Full Exam - General 1994 Constitutional general appearance Overall: in no acute distress 10/24/2017 None Full Exam - General 1994 Constitutional general appearance Overall: well nourished 10/24/2017 None Full Exam - General 1994 Eyes conjunctiva /eyelids Overall: conjunctiva clear 10/24/2017 None Full Exam - General 1994 Eyes conjunctiva /eyelids Overall: eyelids normal 10/24/2017 None Full Exam - General 1994 Ears/Nose/Throat lips/teeth/gingiva Overall: benign lips 10/24/2017 None Full Exam - General 1994 Respiratory respiratory effort/rhythm Overall: no retractions 10/24/2017 None Full Exam - General 1994 Respiratory respiratory effort/rhythm Overall: normal rate 10/24/2017 None Full Exam - General 1994 Musculoskeletal head and neck Overall: head atraumatic 10/24/2017 None Full Exam - General 1994 Neurologic cranial nerves Overall: crainial nerves 2 - 12 grossly intact 10/24/2017 None Full Exam - General 1994 Psychiatric orientation/consciousness Overall: oriented to person, place and time 10/24/2017 None Full Exam - General 1994 Psychiatric mood and affect Overall: normal mood and affect 10/24/2017 None Full Exam - General 1994 Psychiatric appearance Overall: well-groomed, good eye contact 10/24/2017 None Full Exam - General 1994 Constitutional general appearance Development: well developed 08/28/2017 None Full Exam - General 1994 Constitutional general appearance Development: appears stated age 0508/28/2017 None Full Exam - General 1994 Constitutional general appearance Hygiene/Attention to Grooming: good hygiene 08/28/2017 None Full Exam - General 1994 Eyes conjunctiva /eyelids Overall: conjunctiva clear 08/28/2017 None Full Exam - General 1994 Eyes conjunctiva /eyelids Overall: cornea clear 08/28/2017 None Full Exam - General 1994 Eyes conjunctiva /eyelids Overall: eyelids normal 08/28/2017 None Full Exam - General 1994 Eyes pupils and irises Overall: pupils equal, round, reactive to light and accomodation 08/28/2017 None Full Exam - General 1994 Ears/Nose/Throat otoscopic exam Overall: external auditory canals clear 08/28/2017 None Full Exam - General 1994 Ears/Nose/Throat otoscopic exam Overall: tympanic membranes clear 08/28/2017 None Full Exam - General 1994 Ears/Nose/Throat lips/teeth/gingiva Overall: benign lips 08/28/2017 None Full Exam - General 1994 Ears/Nose/Throat lips/teeth/gingiva Overall: normal dentition 08/28/2017 None Full Exam - General 1994 Ears/Nose/Throat oral cavity/pharynx/larynx Overall: oral mucosa clear 08/28/2017 None Full Exam - General 1994 Ears/Nose/Throat oral cavity/pharynx/larynx Overall: oropharyngeal mucosa clear 08/28/2017 None Full Exam - General 1994 Ears/Nose/Throat oral cavity/pharynx/larynx Overall: hypopharynx benign 08/28/2017 None Full Exam - General 1994 Ears/Nose/Throat oral cavity/pharynx/larynx Overall: no masses 08/28/2017 None Full Exam - General 1994 Respiratory auscultation Overall: breath sounds clear bilaterally 08/28/2017 None Full Exam - General 1994 Respiratory respiratory effort/rhythm Overall: no retractions 08/28/2017 None Full Exam - General 1994 Respiratory respiratory effort/rhythm Overall: normal rate 08/28/2017 None Full Exam - General 1994 Cardiovascular extremities Overall: no clubbing 08/28/2017 None Full Exam - General 1994 Cardiovascular auscultation of heart Overall: regular rate 08/28/2017 None Full Exam - General 1994 Cardiovascular auscultation of heart Overall: normal heart sounds 08/28/2017 None Full Exam - General 1994 Abdomen abdominal exam Overall: no tenderness 08/28/2017 None Full Exam - General 1994 Abdomen abdominal exam Overall: normal bowel sounds 08/28/2017 None Full Exam - General 1994 Lymphatic neck nodes Overall: anterior cervical chain benign 08/28/2017 None Full Exam - General 1994 Lymphatic neck nodes Overall: posterior cervical chain benign 08/28/2017 None Full Exam - General 1994 Musculoskeletal spine, ribs and pelvis Overall: spine benign 08/28/2017 None Full Exam - General 1994 Musculoskeletal spine, ribs and pelvis Overall: sacroiliac joint benign 08/28/2017 None Full Exam - General 1994 Musculoskeletal spine, ribs and pelvis Overall: good posture 08/28/2017 None Full Exam - General 1994 Musculoskeletal head and neck Overall: head atraumatic 08/28/2017 None Full Exam - General 1994 Musculoskeletal head and neck Overall: cervical spine benign 08/28/2017 None Full Exam - General 1994 Neurologic deep tendon reflexes Overall: deep tendon reflexes intact 08/28/2017 None Full Exam - General 1994 Neurologic cranial nerves Overall: crainial nerves 2 - 12 grossly intact 08/28/2017 None Full Exam - General 1994 Psychiatric orientation/consciousness Overall: oriented to person, place and time 08/28/2017 None Full Exam - General 1994 Psychiatric mood and affect Overall: normal mood and affect 08/28/2017 None Full Exam - General 1994 Constitutional general appearance Development: well developed 07/31/2017 None Full Exam - General 1994 Constitutional general appearance Development: appears stated age 0407/31/2017 None Full Exam - General 1994 Constitutional general appearance Hygiene/Attention to Grooming: good hygiene 07/31/2017 None Full Exam - General 1994 Eyes conjunctiva /eyelids Overall: conjunctiva clear 07/31/2017 None Full Exam - General 1994 Eyes conjunctiva /eyelids Overall: cornea clear 07/31/2017 None Full Exam - General 1994 Eyes conjunctiva /eyelids Overall: eyelids normal 07/31/2017 None Full Exam - General 1994 Eyes pupils and irises Overall: pupils equal, round, reactive to light and accomodation 07/31/2017 None Full Exam - General 1994 Ears/Nose/Throat otoscopic exam Overall: external auditory canals clear 07/31/2017 None Full Exam - General 1994 Ears/Nose/Throat otoscopic exam Overall: tympanic membranes clear 07/31/2017 None Full Exam - General 1994 Ears/Nose/Throat lips/teeth/gingiva Overall: benign lips 07/31/2017 None Full Exam - General 1994 Ears/Nose/Throat lips/teeth/gingiva Overall: normal dentition 07/31/2017 None Full Exam - General 1994 Ears/Nose/Throat oral cavity/pharynx/larynx Overall: oral mucosa clear 07/31/2017 None Full Exam - General 1994 Ears/Nose/Throat oral cavity/pharynx/larynx Overall: oropharyngeal mucosa clear 07/31/2017 None Full Exam - General 1994 Ears/Nose/Throat oral cavity/pharynx/larynx Overall: hypopharynx benign 07/31/2017 None Full Exam - General 1994 Ears/Nose/Throat oral cavity/pharynx/larynx Overall: no masses 07/31/2017 None Full Exam - General 1994 Respiratory auscultation Overall: breath sounds clear bilaterally 07/31/2017 None Full Exam - General 1994 Respiratory respiratory effort/rhythm Overall: no retractions 07/31/2017 None Full Exam - General 1994 Respiratory respiratory effort/rhythm Overall: normal rate 07/31/2017 None Full Exam - General 1994 Cardiovascular extremities Overall: no clubbing 07/31/2017 None Full Exam - General 1994 Cardiovascular auscultation of heart Overall: regular rate 07/31/2017 None Full Exam - General 1994 Cardiovascular auscultation of heart Overall: normal heart sounds 07/31/2017 None Full Exam - General 1994 Musculoskeletal spine, ribs and pelvis Overall: spine benign 07/31/2017 None Full Exam - General 1994 Musculoskeletal spine, ribs and pelvis Overall: sacroiliac joint benign 07/31/2017 None Full Exam - General 1994 Musculoskeletal spine, ribs and pelvis Overall: good posture 07/31/2017 None Full Exam - General 1994 Musculoskeletal head and neck Overall: head atraumatic 07/31/2017 None Full Exam - General 1994 Musculoskeletal head and neck Overall: cervical spine benign 07/31/2017 None Full Exam - General 1994 Neurologic deep tendon reflexes Overall: deep tendon reflexes intact 07/31/2017 None Full Exam - General 1994 Neurologic cranial nerves Overall: crainial nerves 2 - 12 grossly intact 07/31/2017 None Full Exam - General 1994 Psychiatric orientation/consciousness Overall: oriented to person, place and time 07/31/2017 None Full Exam - General 1994 Psychiatric mood and affect Overall: normal mood and affect 07/31/2017 None Full Exam - General 1994 Lymphatic neck nodes Overall: shotty lymphadenopathy 07/31/2017 up into right neck and down to right clavicle, few lymph nodes on left side at anterior chain Full Exam - General 1994 Constitutional general appearance Development: well developed 06/04/2017 None Full Exam - General 1994 Constitutional general appearance Development: appears stated age 0206/04/2017 None Full Exam - General 1994 Constitutional general appearance Hygiene/Attention to Grooming: good hygiene 06/04/2017 None Full Exam - General 1994 Eyes conjunctiva /eyelids Overall: conjunctiva clear 06/04/2017 None Full Exam - General 1994 Eyes conjunctiva /eyelids Overall: cornea clear 06/04/2017 None Full Exam - General 1994 Eyes conjunctiva /eyelids Overall: eyelids normal 06/04/2017 None Full Exam - General 1994 Eyes pupils and irises Overall: pupils equal, round, reactive to light and accomodation 06/04/2017 None Full Exam - General 1994 Ears/Nose/Throat otoscopic exam Overall: external auditory canals clear 06/04/2017 None Full Exam - General 1994 Ears/Nose/Throat otoscopic exam Overall: tympanic membranes clear 06/04/2017 None Full Exam - General 1994 Ears/Nose/Throat lips/teeth/gingiva Overall: benign lips 06/04/2017 None Full Exam - General 1994 Ears/Nose/Throat lips/teeth/gingiva Overall: normal dentition 06/04/2017 None Full Exam - General 1994 Ears/Nose/Throat oral cavity/pharynx/larynx Overall: oral mucosa clear 06/04/2017 None Full Exam - General 1994 Ears/Nose/Throat oral cavity/pharynx/larynx Overall: oropharyngeal mucosa clear 06/04/2017 None Full Exam - General 1994 Ears/Nose/Throat oral cavity/pharynx/larynx Overall: hypopharynx benign 06/04/2017 None Full Exam - General 1994 Ears/Nose/Throat oral cavity/pharynx/larynx Overall: no masses 06/04/2017 None Full Exam - General 1994 Respiratory auscultation Overall: breath sounds clear bilaterally 06/04/2017 None Full Exam - General 1994 Respiratory respiratory effort/rhythm Overall: no retractions 06/04/2017 None Full Exam - General 1994 Respiratory respiratory effort/rhythm Overall: normal rate 06/04/2017 None Full Exam - General 1994 Cardiovascular extremities Overall: no clubbing 06/04/2017 None Full Exam - General 1994 Cardiovascular auscultation of heart Overall: regular rate 06/04/2017 None Full Exam - General 1994 Cardiovascular auscultation of heart Overall: normal heart sounds 06/04/2017 None Full Exam - General 1994 Abdomen abdominal exam Overall: no tenderness 06/04/2017 None Full Exam - General 1994 Abdomen abdominal exam Overall: normal bowel sounds 06/04/2017 None Full Exam - General 1994 Lymphatic neck nodes Overall: anterior cervical chain benign 06/04/2017 None Full Exam - General 1994 Lymphatic neck nodes Overall: posterior cervical chain benign 06/04/2017 None Full Exam - General 1994 Musculoskeletal spine, ribs and pelvis Overall: spine benign 06/04/2017 None Full Exam - General 1994 Musculoskeletal spine, ribs and pelvis Overall: sacroiliac joint benign 06/04/2017 None Full Exam - General 1994 Musculoskeletal spine, ribs and pelvis Overall: good posture 06/04/2017 None Full Exam - General 1994 Musculoskeletal head and neck Overall: head atraumatic 06/04/2017 None Full Exam - General 1994 Musculoskeletal head and neck Overall: cervical spine benign 06/04/2017 None Full Exam - General 1994 Neurologic deep tendon reflexes Overall: deep tendon reflexes intact 06/04/2017 None Full Exam - General 1994 Neurologic cranial nerves Overall: crainial nerves 2 - 12 grossly intact 06/04/2017 None Full Exam - General 1994 Psychiatric orientation/consciousness Overall: oriented to person, place and time 06/04/2017 None Full Exam - General 1994 Psychiatric mood and affect Overall: normal mood and affect 06/04/2017 None Full Exam - General 1994 Constitutional [...] affect 10/06/2014 None Full Exam - General 1995 Integument inspection of skin Rash/Lesions: surgical site 10/06/2014 neck and left knee - healing Procedures Procedure Codes Date ADMIN INFLUENZA VIRUS VAC CPT-4: G0008 02/12/2018 FLU VACC PRSV FREE INC ANTIG CPT-4: 47582 02/12/2018 PPPS, SUBSEQ VISIT CPT -4: G0439 10/24/2017 TOBACCO-USE WELFARE DIRECTOR 3-[address]: 711685558 CPT-4: G0436 02/04/2017 ADMIN INFLUENZA VIRUS VAC CPT-4: G0008 02/04/2017 FLU VAC NO PRSV 4 ROSETTE 3 YRS+ CPT-4: 31027 02/04/2017 PPPS, SUBSEQ VISIT CPT -4: G0439 10/18/2016 TOBACCO-USE WELFARE DIRECTOR 3-[address]: 023101375 CPT-4: G0436 10/03/2016 TOBACCO-USE WELFARE DIRECTOR 3-[address]: 394766431 CPT-4: G0436 07/02/2016 TOBACCO-USE WELFARE DIRECTOR 3-[address]: 996601808 CPT-4: G0436 04/04/2016 TOBACCO-USE WELFARE DIRECTOR 3-[address]: 198485750 CPT-4: G0436 01/04/2016 ADMIN INFLUENZA VIRUS VAC CPT-4: G0008 01/04/2016 ADMIN PNEUMOCOCCAL VACCINE SNOMED CT: 70283210 CPT-4: G0009 01/04/2016 PNEUMOCOCCAL VACC [address]: 74160479 CPT-4: 94750 01/04/2016 FLU VACC 4 ROSETTE 3 YRS PLUS IM SNOM[address] CT: 40176410 CPT-4: 97715 01/04/2016 TOBAC[employer]-USE WELFARE DIRECTOR 3-[address]: 914239422 CPT-4: G0436 10/04/2015 TOBACCO-USE WELFARE DIRECTOR 3-[address]: 035337801 CPT-4: G0436 08/30/2015 TOBACCO-USE WELFARE DIRECTOR 3-[address]: 506922005 CPT-4: G0436 08/02/2015 ADMIN INFLUENZA VIRUS VAC CPT-4: G0008 01/05/2015 FLU VACC 4 ROSETTE 3 YRS PLUS IM Formatting Model/CDA Sections, Assigned to SNOMED CT: 21220376 CPT-4: 51543Rxzxdur 01/05/2015 Vital Signs Date Vital 12/04/2017 Blood Pressure 1: 142/70 Code : 8480-6 BMI: 28.2 Code : 80986-7 Heart Rate 1 : 103 bpm Height: 6' SpO2: 94% Weight: 208 lbs 10/24/2017 Height: Weight: 08/28/2017 Blood Pressure 1: 130/72 Code : 8480-6 BMI: 28.3 Code : 73424-1 Heart Rate 1 : 60 bpm Height: 6' SpO2: 96% Weight: 209 lbs 07/31/2017 Blood Pressure 1: 126/64 Code : 8480-6 BMI: 29.7 Code : 73730-4 Heart Rate 1 : 59 bpm Height: 6' SpO2: 95% Weight: 219 lbs 06/04/2017 Blood Pressure 1: 134/86 Code : 8480-6 BMI: 28.6 Code : 82095-2 Heart Rate 1 : 91 bpm Height: 6' SpO2: 97% Weight: 211 lbs 02/04/2017 Blood Pressure 1: 128/74 Code : 8480-6 BMI: 28.3 Code : 69555-5 Heart Rate 1 : 63 bpm Height: 6' SpO2: 96% Weight: 209 lbs 10/18/2016 BMI: 27.7 Code: 64435-6 Height: 6' Weight: 204 lbs 10/03/2016 Blood Pressure 1: 118/70 Code : 8480-6 BMI: 27.7 Code : 50230-5 Heart Rate 1 : 58 bpm Height: 6' SpO2: 95% Weight: 204 lbs 07/02/2016 Blood Pressure 1: 104/64 Code : 8480-6 BMI: 28.5 Code : 22933-3 Heart Rate 1 : 63 bpm Height: 6' SpO2: 98% Weight: 210 lbs 04/04/2016 Blood Pressure 1: 116/62 Code : 8480-6 BMI: 29.9 Code : 15881-1 Heart Rate 1 : 59 bpm Height: 6' SpO2: 98% Weight: 220 lbs 8 oz 01/04/2016 Blood Pressure 1: 136/78 Code : 8480-6 BMI: 29.6 Code : 94822-9 Heart Rate 1 : 55 bpm Height: 6' SpO2: 97% Weight: 218 lbs 10/04/2015 Blood Pressure 1: 130/80 Code : 8480-6 BMI: 29.3 Code : 53223-2 Heart Rate 1 : 69 bpm Height: 6' SpO2: 97% Weight: 216 lbs 08/30/2015 Blood Pressure 1: 112/64 Code : 8480-6 BMI: 30.4 Code : 43015-7 Heart Rate 1 : 68 bpm Height: 6' SpO2: 95% Weight: 224 lbs 8 oz 08/02/2015 Blood Pressure 1: 120/70 Code : 8480-6 BMI: 30.1 Code : 62544-0 Heart Rate 1 : 55 bpm Height: 6' SpO2: 97% Weight: 222 lbs 04/21/2015 Blood Pressure 1: 160/86 Code : 8480-6 Blood Pressure 1: 138/82 Code: 8480-6 BMI: 30.9 Code: 80448-7 Heart Rate 1: 96 bpm Height: 6' SpO2: 96% Weight: 228 lbs 03/21/2015 Blood Pressure 1: 124/82 Code : 8480-6 BMI: 30.0 Code : 60277-7 Heart Rate 1 : 78 bpm Height: 6' SpO2: 98% Weight: 221 lbs 01/05/2015 Blood Pressure 1: 138/78 Code : 8480-6 BMI: 29.3 Code : 32605-1 Heart Rate 1 : 61 bpm Height: 6' SpO2: 98% Weight: 216 lbs 10/06/2014 Blood Pressure 1: 130/78 Code : 8480-6 BMI: 29.3 Code : 62916-2 Heart Rate 1 : 71 bpm Height: 6' SpO2: 97% Weight: 216 lbs Functional Status No Functional Status data History of Present Illness Symptom Name Status Result Effective Date Notes medication follow up Location oral intake 12/04/2017 None back pain Location diffusely 12/04/2017 low back pain, takes hydrocodone back pain Location lumbar spine 12/04/2017 None back pain Onset and Resolution ongoing 12/04/2017 None back pain Limitation on Activities moderately limits activities 12/04/2017 None back pain Triggers no known associated factors 12/04/2017 None back pain Alleviating Factors medication 12/04/2017 None back pain Initial treatment medication 12/04/2017 None back pain Radiating down left leg 12/04/2017 None hypertension Onset and Resolution ongoing 12/04/2017 None hypertension Onset of Symptom during adulthood 12/04/2017 None hypertension Blood Pressure Values patient checking blood pressure at home - did not bring in readings 12/04/2017 -Checks occasionally hypertension Alleviating Factors medication 12/04/2017 None hypertension Pertinent Findings dizziness 12/04/2017 when he stands up hypertension Pertinent Findings dyspnea 12/04/2017 -gets tired quickly hypertension Pertinent Findings Denies edema 12/04/2017 in his left leg- intermittent arm pain Location right arm 12/04/2017 None arm pain Radiating Right Shoulder 12/04/2017 None arm pain Quality intermittent 12/04/2017 None arm pain Onset of Symptom 3 weeks ago 12/04/2017 None arm pain Pertinent Findings right hand dominant 12/04/2017 None arm pain Pertinent Findings pain with movement 12/04/2017 improving. Annual Medicare Wellness Exam Depression (last 6 months) almost never 10/24/2017 None Annual Medicare Wellness Exam Depression or Hopelessness almost never 10/24/2017 None Annual Medicare Wellness Exam Describe Your Health fair 10/24/2017 None Annual Medicare Wellness Exam Exercise Habits exercises _ days per week 10/24/2017 None Annual Medicare Wellness Exam Motor Vehicle Safety always fastens seat belt: y 10/24/2017 None Annual Medicare Wellness Exam Smoking and Tobacco Use cigarette smoker 10/24/2017 None Annual Medicare Wellness Exam Social & Emotional Support usually 10/24/2017 None Annual Medicare Wellness Exam Aspirin Use yes 10/24/2017 81mg Annual Medicare Wellness Exam Blood Glucose (self reported) don't know 10/24/2017 None Annual Medicare Wellness Exam Blood Pressure (self reported ) diagnosed with hypertension 10/24/2017 None Annual Medicare Wellness Exam Cholesterol (self reported) diagnosed with elevated cholesterol 2017 None Annual Medicare Wellness Exam Handling Stress usually manny effectively 10/24/2017 None Annual Medicare Wellness Exam Hemaglobin A-1C (self reported ) don't know 10/24/2017 None Annual Medicare Wellness Exam Hours of Sleep 6-8 10/24/2017 None Annual Medicare Wellness Exam Interaction with Friends yes 10/24/2017 None Annual Medicare Wellness Exam Interests & Pleasure almost never 10/24/2017 None Annual Medicare Wellness Exam Life Satisfaction satisfied 10/24/2017 None Annual Medicare Wellness Exam Nutrition servings of vegetables / fruit per day: 0-2 10/24/2017 None Annual Medicare Wellness Exam Stress almost never 10/24/2017 None Annual Medicare Wellness Exam Sun Exposure protects skin when outdoors: n 10/24/2017 None Annual Medicare Wellness Exam Alcohol Use does not drink any alcohol 10/24/2017 None medication follow up Additional Comments medication use 08/28/2017 None medication follow up Location oral intake 08/28/2017 None back pain Location diffusely 08/28/2017 low back pain, takes hydrocodone back pain Location lumbar spine 08/28/2017 None back pain Onset and Resolution ongoing 08/28/2017 None back pain Limitation on Activities moderately limits activities 08/28/2017 None back pain Triggers no known associated factors 08/28/2017 None back pain Alleviating Factors medication 08/28/2017 None back pain Initial treatment medication 08/28/2017 None back pain Radiating down left leg 08/28/2017 None hypertension Onset and Resolution ongoing 08/28/2017 None hypertension Onset of Symptom during adulthood 08/28/2017 None hypertension Blood Pressure Values patient checking blood pressure at home - did not bring in readings 08/28/2017 -Checks occasionally hypertension Alleviating Factors medication 08/28/2017 None hypertension Pertinent Findings dizziness 08/28/2017 when he stands up hypertension Pertinent Findings dyspnea 08/28/2017 -gets tired quickly hypertension Pertinent Findings edema 08/28/2017 in his left leg- intermittent knee pain Location on the left 08/28/2017 (worse) knee pain Location on the right 08/28/2017 None knee pain Alleviating Factors joint immobilizer 08/28/2017 None knee pain Exacerbating Factors exertion 08/28/2017 None knee pain Exacerbating Factors weight bearing 08/28/2017 None medication follow up Additional Comments medication use 07/31/2017 None medication follow up Location oral intake 07/31/2017 None cough Location in the throat 07/31/2017 None cough Quality constant 07/31/2017 None cough Quality dry None cough Onset and Resolution ongoing 07/31/2017 None cough Onset of Symptom 2 months ago 07/31/2017 None cough Frequency of Episodes daily 07/31/2017 None back pain Location diffusely 07/31/2017 low back pain, takes hydrocodone back pain Location lumbar spine 07/31/2017 None back pain Onset and Resolution ongoing 07/31/2017 None back pain Limitation on Activities moderately limits activities 07/31/2017 None back pain Frequency of Episodes unchanged 07/31/2017 None back pain Triggers no known associated factors 07/31/2017 None back pain Alleviating Factors medication 07/31/2017 None back pain Initial treatment medication 07/31/2017 None back pain Radiating down left leg 07/31/2017 None hypertension Quality primary hypertension 07/31/2017 None hypertension Onset and Resolution ongoing 07/31/2017 None hypertension Onset of Symptom during adulthood 07/31/2017 None hypertension Blood Pressure Values patient checking blood pressure at home - did not bring in readings 07/31/2017 -Checks occasionally hypertension Alleviating Factors medication 07/31/2017 None hypertension Pertinent Findings Denies dizziness 07/31/2017 None hypertension Pertinent Findings Denies dyspnea 07/31/2017 None hypertension Pertinent Findings edema 07/31/2017 in his left leg- intermittent knee pain Location on the left 07/31/2017 (worse) knee pain Location on the right 07/31/2017 None knee pain Quality constant 07/31/2017 None knee pain Frequency of Episodes unchanged 07/31/2017 None knee pain Alleviating Factors joint immobilizer 07/31/2017 None knee pain Exacerbating Factors exertion 07/31/2017 None knee pain Exacerbating Factors weight bearing 07/31/2017 None knee pain Pertinent Findings pain with movement 07/31/2017 None knee pain Pertinent Findings sensation of buckling 07/31/2017 None back pain Location diffusely 06/04/2017 low back pain, takes hydrocodone back pain Location lumbar spine 06/04/2017 None back pain Onset and Resolution ongoing 06/04/2017 None back pain Limitation on Activities moderately limits activities 06/04/2017 None back pain Triggers no known associated factors 06/04/2017 None back pain Alleviating Factors medication 06/04/2017 None back pain Initial treatment medication 06/04/2017 None back pain Radiating down left leg 06/04/2017 None hypertension Onset and Resolution ongoing 06/04/2017 None hypertension Onset of Symptom during adulthood 06/04/2017 None hypertension Blood Pressure Values patient checking blood pressure at home - did not bring in readings 06/04/2017 -Checks occasionally hypertension Alleviating Factors medication 06/04/2017 None hypertension Pertinent Findings Denies dizziness 06/04/2017 None hypertension Pertinent Findings Denies dyspnea 06/04/2017 None hypertension Pertinent Findings edema 06/04/2017 in his left leg- intermittent knee pain Location on the left 06/04/2017 (worse) knee pain Location on the right 06/04/2017 None knee pain Alleviating Factors joint immobilizer 06/04/2017 None knee pain Exacerbating Factors exertion 06/04/2017 None knee pain Exacerbating Factors weight bearing 06/04/2017 None hypertension Quality primary hypertension 06/04/2017 None knee pain Pertinent Findings sensation of buckling 06/04/2017 None knee pain Pertinent Findings pain with movement 06/04/2017 None knee pain Quality constant 06/04/2017 None knee pain Frequency of Episodes unchanged 06/04/2017 None back pain Frequency of Episodes unchanged 06/04/2017 None back pain Location diffusely 02/04/2017 low back [...] back pain, takes hydrocodone prescribed by the [place] back [place] Location lumbar spine 08/30/2015 None [...] back pain, takes hydrocodone prescribed by the [place] Location lumbar spine 08/02/2015 None [...] pain, takes hydrocodone initially prescribed by the [place] Location lumbar spine 04/21/2015 None [...] data Encounters Encounter Performer Location Codes Date 8) [id number] EST. PATIENT, LEVEL IV Diagnosis: Essential (primary) hypertension[ICD10: I10] Diagnosis: Atrophy of thyroid (acquired)[ICD10: E03.4] Diagnosis: Pain in left knee[ICD10: M25.562] Diagnosis: Pain in right knee[ICD10: M25.561] Diagnosis: Mixed hyperlipidemia[ICD10: E78.2] Pepper Baeza MD, [facility] CPT-4: 66775 12/04/2017 ([id number]) [id number] EST. PATIENT, LEVEL IV Diagnosis: Essential (primary) hypertension[ICD10: I10] Diagnosis: Pain in left knee[ICD10: M25.562] Diagnosis: Pain in right knee[ICD10: M25.561] Diagnosis: Pain in right hip[ICD10: M25.551] Pepper Baeza MD, [facility] CPT-4: 63096 08/28/2017 ([id number]) 40411 EST. PATIENT, LEVEL IV Diagnosis: Chronic pain syndrome[ICD10: G89.4] Diagnosis: Tobacco use[ICD10: Z72.0] Diagnosis: Localized enlarged lymph nodes[ICD10: R59.0] Pepper Baeza MD, [facility] CPT-4: 47673 07/31/2017 ([id number]) 55347 EST. PATIENT, LEVEL IV Diagnosis: Essential (primary) hypertension[ICD10: I10] Diagnosis: Chronic pain syndrome[ICD10: G89.4] Diagnosis: Atrophy of thyroid (acquired)[ICD10: E03.4] Diagnosis: Tobacco use[ICD10: Z72.0] Pepper Baeza MD, [facility] CPT-4: 62856 06/04/2017 ([id number]) 08057 EST. PATIENT, LEVEL IV Diagnosis: Essential (primary) hypertension[ICD10: I10] Diagnosis: Low back pain[ICD10: M54.5] Diagnosis: Iliotibial band syndrome, right leg[ICD10: M76.31] Diagnosis: Chronic pain syndrome[ICD10: G89.4] Diagnosis: Encounter for immunization[ICD10: Z23] Pepper Baeza MD, [facility] CPT-4: 81378 02/04/2017 ([id number]) 84596 EST. PATIENT, LEVEL IV Diagnosis: Essential (primary) hypertension[ICD10: I10] Diagnosis: Chronic pain syndrome[ICD10: G89.4] Diagnosis: Low back pain[ICD10: M54.5] Diagnosis: Pain in right knee[ICD10: M25.561] Diagnosis: Pain in left knee[ICD10: M25.562] Pepper Baeza MD, [facility] CPT-4: 59305 10/03/2016 ([id number]) 22395 EST. PATIENT, LEVEL IV Diagnosis: Essential (primary) hypertension[ICD10: I10] Diagnosis: Mixed hyperlipidemia[ICD10: E78.2] Diagnosis: Chronic pain syndrome[ICD10: G89.4] Diagnosis: Atrophy of thyroid (acquired)[ICD10: E03.4] Pepper Baeza MD, [facility] CPT-4: 00415 07/02/2016 ([id number]) 53364 EST. PATIENT, LEVEL IV Diagnosis: Essential (primary) hypertension[ICD10: I10] Diagnosis: Tobacco use[ICD10: Z72.0] Diagnosis: Chronic pain syndrome[ICD10: G89.4] Pepper Baeza MD, [facility] CPT-4: 64682 04/04/2016 ([id number]) 54847 EST. PATIENT, LEVEL IV Diagnosis: Encounter for immunization[ICD10: Z23] Diagnosis: Essential (primary) hypertension[ICD10: I10] Diagnosis: Chronic pain syndrome[ICD10: G89.4] Diagnosis: Tobacco use[ICD10: Z72.0] Diagnosis: Mixed hyperlipidemia[ICD10: E78.2] Diagnosis: Gastro-esophageal reflux disease without esophagitis[ICD10: K21.9] Pepper Baeza MD, [facility] CPT-4: 36841 01/04/2016 ([id number]) 28738 EST. PATIENT, LEVEL IV Diagnosis: Essential (primary) hypertension[ICD10: I10] Diagnosis: Chronic pain syndrome[ICD10: G89.4] Diagnosis: Tobacco use[ICD10: Z72.0] Pepper Baeza MD, [facility] CPT-4: 68027 10/04/2015 ([id number]) 78872 EST. PATIENT, LEVEL III Diagnosis: Chronic pain syndrome[ICD10: G89.4] Diagnosis: Low back pain[ICD10: M54.5] Diagnosis: Tobacco use[ICD10: Z72.0] Diagnosis: Mixed hyperlipidemia[ICD10: E78.2] Pepper Baeza MD, [facility] CPT-4: 64250 08/30/2015 ([id number]) 43194 EST. PATIENT, LEVEL IV Diagnosis: Essential (primary) hypertension[ICD10: I10] Diagnosis: Low back pain[ICD10: M54.5] Diagnosis: Chronic pain syndrome[ICD10: G89.4] Pepper Baeza MD, [facility] CPT-4: 66860 08/02/2015 ([id number]) 17288 EST. PATIENT, LEVEL III Diagnosis: Essential (primary) hypertension[ICD10: I10] Diagnosis: Low back pain[ICD10: M54.5] Elaine Baeza MD, [facility] CPT-4: 24571 04/21/2015 ([id number]) 26761 EST. PATIENT, LEVEL IV Diagnosis: Epigastric pain[ICD10: R10.13] Diagnosis: Essential (primary) hypertension[ICD10: I10] Diagnosis: Gastro-esophageal reflux disease without esophagitis[ICD10: K21.9] Pepper Baeza MD, [facility] CPT-4: 98543 03/21/2015 ([id number]) 84608 EST. PATIENT, LEVEL III Diagnosis: ESSENTIAL HYPERTENSION[ICD9: 401.9] Diagnosis: SCIATICA[ICD9: 724.3] Pepper Baeza MD, [facility] CPT-4: 69701 01/05/2015 ([id number]) OFFICE VISIT, NEW - LEVEL 4 Diagnosis: ESSENTIAL HYPERTENSION[ICD9: 401.9] Diagnosis: HYPOTHYROIDISM[ICD9: 244.9] Diagnosis: ESOPHAGEAL REFLUX[ICD9: 530.81] [facility] CPT- 4: 29787 10/06/2014 Plan of Care Planned Activity Notes Codes Status Date Patient Education: Patient Medication Summary Completed 02/12/2018 Visit Plan: Hypertension - well controlled - [...] based on previous levels of control. Chronic Pain Syndrome - pt has chronic pain - has been maintained on current medications, has not sought out other medications, only uses PRN pain medications as directed, and understands the consequences of over-medication. 12/04/2017 Visit Plan: Hypertension - well controlled - [...] based on previous levels of control. Chronic Pain Syndrome - pt has chronic pain - has been maintained on current medications, has not sought out other medications, only uses PRN pain medications as directed, and understands the consequences of over-medication. 12/04/2017 Appointment: Pepper Baeza WPtel: [facility] (15 min) Moderate 12/04/2017 Patient Education: Patient Medication Summary Completed 12/04/2017 Visit Plan: Medicare Exam - today we [...] help decrease fall risk and to maintain independece in the home. Today we discussed the need for the patient to create paperwork for Advanced directives as well as for the patient to provide this office with a copy of her DOPA paperwork for health care surrogate. 10/24/2017 Appointment: Parul Collier WPtel: [facility]5 [facility] [facility] - Annual Wellness Visit 10/24/2017 Patient Education: Patient Medication Summary Completed 10/24/2017 Appointment: Pepper Baeza WPtel: [facility]5 [facility] (15 min) Moderate 09/09/2017 Visit Plan: Hypertension - well controlled - [...] the patient's termination from this medical practice. Hip pain - bilaterally - rx for xray given to pt today due to the location of his pain in right anterior hip/thigh 08/28/2017 Appointment: [facility]aeza [facility]Ptel[facility] (15 min) Moderate 08/28/2017 Patient Education: Patient Medication Summary Completed 08/28/2017 Care Plan: X-RAY EXAM OF HIP LOINC : 76191-6 Pending 08/28/2017 Visit Plan: Hypertension - well controlled - continue with current medications, continue with no added salt diet. Pt has been encouraged to exercise daily. The pt has been advised to call the office if there are any acute concerns about change in blood pressure readings at home. Lymphadenopathy - of right neck - recommended pt to have repeat CT of chest and neck. Hx of COPD and nodule in chest. Chronic pain syndrome - decrease dose of pain pills used - recommended pt to Hysingla 120mg daily - decrease hydrocodone to #180 pills. 07/31/2017 Appointment: Pepper Baeza [facility]Ptel[facility] [place] (15 min) Moderate 07/31/2017 Patient Education: Patient Medication Summary Completed 07/31/2017 Care Plan: CT THORAX W/O DYE LOINC : 23127-3 Pending 07/31/2017 Visit Plan: Hypertension - well controlled - [...] based on previous levels of control. Chronic Pain Syndrome - pt has chronic pain - has been maintained on current medications, has not sought out other medications, only uses PRN pain medications as directed, and understands the consequences of over- medication. Knee pain - recommended pt needs to keep appt with Dr. Sagastume tomorrow. 06/04/2017 Visit Plan: Hypertension - well controlled - [...] based on previous levels of control. Chronic Pain Syndrome - pt has chronic pain - has been maintained on current medications, has not sought out other medications, only uses PRN pain medications as directed, and understands the consequences of over- medication. Knee pain - recommended pt needs to keep appt with Dr. Sagastume tomorrow. 06/04/2017 Appointment: Pepper Baeza WPtel: [address] [facility] (30 min) Complex 06/04/2017 Patient Education: Patient Medication Summary Completed 06/04/2017 Visit Plan: Hypertension - well controlled - [...] clinic today 02/04/2017 Appointment: Pepper Baeza WPtel: [address] [facility] (30 min) Complex 02/04/2017 Patient Education: Patient [...] surrogate. 10/18/2016 Appointment: Parul Collier WPtel: [address] [facility] [facility] - Annual Wellness Visit 10/18/2016 Patient Education: Patient Medication Summary Completed 10/18/2016 Patient Education: Smoking and Tobacco Addiction Completed 10/18/2016 Visit Plan: Low back pain - and knee pain - recommended a referal to [facility] physical therapy for strengthening, knee pain, back [...] stenting. 10/03/2016 Appointment: Pepper Bae[facility]Ptel[facility] (30 min) Complex 10/03/2016 Patient Education: Patient [...] this time. 07/02/2016 Appointment: Pepper Baeza WPtel: [address] [facility] (30 min) Complex 07/02/2016 Patient Education: Patient [...] stopping smoking. 04/04/2016 Appointment: Pepper Baeza WPtel: [address] [facility] (30 min) Complex 04/04/2016 Patient Education: [...] not improving. 01/04/2016 Appointment: Pepper Baeza WPtel: [address] [facility] (15 min) Moderate 01/04/2016 Patient Education: Patient [...] of over-medication. 10/04/2015 Appointment: Pepper Baeza WPtel: [phone] [facility] (15 min) Moderate 10/04/2015 Patient Education: [...] stopping smoking. 08/02/2015 Appointment: Pepper Baeza WPtel: [address] [place], [place] [address] (15 min) Moderate 08/02/2015 Patient Education: Patient [...] to patient. 10/06/2014 Appointment: Pepper Baeza WPtel: [facility] [place] [facility] New Patient 10/06/2014 Patient Education: Patient Medication Summary Completed 10/06/2014 Patient Education: Hypertension Completed 10/06/2014 Instructions Comment get labs one week before your next appt . Low back pain - and knee pain - recommended a referal to [facility] physical therapy for strengthening, knee pain, back [...] if the symptoms are not improving. . Medicare Exam - today we discussed [...] help decrease fall risk and to maintain independece in the home. Today we discussed the need for the patient to create paperwork for Advanced directives as well as for the patient to provide this office with a copy of her DOPA paperwork for health care surrogate. . Hypertension - well controlled - continue [...] based on previous levels of control. Chronic Pain Syndrome - pt has chronic pain - has been maintained on current medications, has not sought out other medications, only uses PRN pain medications as directed, and understands the consequences of over-medication. Knee pain - recommended pt needs to keep appt with Dr. Sagastume tomorrow. . Hypertension - well controlled - continue [...] based on previous levels of control. Chronic Pain Syndrome - pt has chronic pain - has been maintained on current medications, has not sought out other medications, only uses PRN pain medications as directed, and understands the consequences of over-medication. Knee pain - recommended pt needs to keep appt with Dr. Sagastume tomorrow. . Hypertension - well controlled - continue [...] symptoms. Voltaren RX given to patient. . Hypertension - well controlled - continue [...] based on previous levels of control. Chronic Pain Syndrome - pt has chronic [...] based on previous levels of control. Chronic Pain Syndrome - pt has chronic pain - has been maintained on current medications, has not sought out other medications, only uses PRN pain medications as directed, and understands the consequences of over-medication. . Medicare Exam - today we discussed [...] DOPA paperwork for health care surrogate. . Hypertension - well controlled - continue [...] the patient's termination from this medical practice. Hip pain - bilaterally - rx for xray given to pt today due to the location of his pain in right anterior hip/thigh . Chronic Back pain - the patient [...] change in blood pressure readings at home. Lymphadenopathy - of right neck - recommended pt to have repeat CT of chest and neck. Hx of COPD and nodule in chest. Chronic pain syndrome - decrease dose of pain pills used - recommended pt to Hysingla 120mg daily - decrease hydrocodone to #180 pills. . Hypertension - well controlled - continue [...] Samples of pennsaid. Recommend referral to Dr Kathe Gonzalez Pennsaid . Hypertension - well controlled - [...] do not improve or if they worsen. Carlos of teriaid. Recommend referral to Dr Archuleta
--- OUTSIDE RECORDS SUMMARY | 2018-02-13 11:54 | XMS REPORT | CCD ---
Author Author [facility] Organization [facility] Address [address] [place] [address] Phone Care Team Providers Care [employer] Operations Manager Name Role Phone PP Unavailable CCM Unavailable Summary Purpose Interface Exchange Insurance Providers Payer name Policy type / Coverage type Covered republican ID Effective Begin Date Effective End Date WPS Medicare Part B Medicare Part B [id number] Unknown [facility] Medicare Part B [id number] Unknown Family history Mother Diagnosis Age At Onset Heart Attack Unknown Arthritis Unknown Dementia Unknown Grandfather Diagnosis Age At Onset Leukemia Unknown Father Diagnosis Age At Onset Hypertension Unknown Arthritis Unknown Heart Attack Unknown Social History Social History Element Codes Description Effective Dates Marital status Unknown Zoe 10/04/2015 Number of children Unknown 3 10/06/2014 Employment Unknown Retired 10/06/[address]: 24267505 Current every day smoker 10/06/2014 Number of years using tobacco Unknown > 50 10/06/2014 Number of cigarettes/day Unknown 10 ( Half a pack) 10/06/2014 Allergies, Adverse Reactions, Alerts Substance Reaction Codes Entered Date Inactivated Date Status * NO KNOWN DRUG ALLERGIES Unknown 08/29/2014 No Inactive Date Active Past Medical History Illness Codes Condition Status Onset Date Resolved Date Atrophy of thyroid (acquired) ICD-9: 244.8 ICD-10: [...] Problems Condition Codes Effective Dates Condition Status Atrophy of thyroid (acquired) ICD-9: 244.8 ICD-10: [...] Fill Instructions levothyroxine 50 mcg tablet RxNorm: 119437 1 TABLET(S) PO DAILY 02/10/2018 11/06/2018 Active hydrocodone 10 mg-acetaminophen 325 mg tablet RxNorm: 474164 1-2 Tablet(s) PO Q4 PRN as needed for pain 02/02/20182017 Active pantoprazole 40 mg tablet,delayed release RxNorm: 525760 1 Tablet(s) PO daily 01/16/2018 01/10/2019 Active metoprolol succinate ER 25 mg tablet,extended release 24 hr RxNorm: 075315 1 TABLET(S) PO DAILY 01/13/2018 10/09/2018 Active hydrocodone 10 mg-acetaminophen 325 mg tablet RxNorm: 638881 1-2 Tablet(s) PO Q4 PRN as needed for pain 12/31/20172017 Inactive hydrocodone 10 mg-acetaminophen 325 mg tablet RxNorm: 458380 1-2 Tablet(s) PO Q4 PRN as needed for pain 11/28/20172017 Inactive hydrocodone 10 mg-acetaminophen 325 mg tablet RxNorm: 484844 1-2 Tablet(s) PO Q4 PRN as needed for pain 10/24/20172017 Inactive hydrocodone 10 mg-acetaminophen 325 mg tablet RxNorm: 103040 1-2 Tablet(s) PO Q4 PRN as needed for pain 09/26/20172017 Inactive doxazosin 4 mg tablet RxNorm: 727312 1 TABLET(S) PO DAILY 201708/19/2018 Active allopurinol 100 mg tablet RxNorm: 400085 3 TABLET(S) PO DAILY - 2 IN THE AM AND 1 AT HS 08/04/2017 04/30/2018 Active hydrocodone 10 mg-acetaminophen 325 mg tablet RxNorm: 346685 1-2 Tablet(s) PO Q4 PRN as needed for pain 07/31/20172017 Inactive Hysingla ER 120 mg tablet, crush resistant, extended release RxNorm: 2426467 1 Tablet(s) PO daily 07/31/20172017 Inactive hydrocodone 10 mg-acetaminophen 325 mg tablet RxNorm: 247424 1-2 Tablet(s) PO Q4 PRN as needed for pain 07/03/20172017 Inactive Lipitor 40 mg tablet RxNorm: 809354 1 Tablet(s) PO daily 201705/29/2018 Active hydrocodone 10 mg-acetaminophen 325 mg tablet RxNorm: 275713 1-2 Tablet(s) PO Q4 PRN as needed for pain 06/04/20172017 Inactive Tessalon 200 mg capsule RxNorm: 963878 1 Capsule(s) PO TID as needed cough 05/30/2017 06/03/2017 Inactive Zithromax Z-Elmer 250 mg tablet RxNorm: 986609 1 Tablet(s) PO UD 05/30/2017 12/08/2017 Inactive Tessalon 200 mg capsule RxNorm: 992693 1 Capsule(s) PO TID as needed cough 05/30/2017 05/29/2017 Inactive levothyroxine 50 mcg tablet RxNorm: 567510 1 TABLET(S) PO DAILY 05/05/2017 01/29/2018 Inactive metoprolol succinate ER 25 mg tablet,extended release 24 hr RxNorm: 811146 1 TABLET(S) PO DAILY 04/08/2017 01/02/2018 Inactive hydrocodone 10 mg-acetaminophen 325 mg tablet RxNorm: 095200 1-2 Tablet(s) PO Q4 PRN as needed for pain 04/04/20172017 Inactive hydrocodone 10 mg-acetaminophen 325 mg tablet RxNorm: 854848 1-2 Tablet(s) PO Q4 PRN as needed for pain 03/03/20172016 Inactive hydrocodone 10 mg-acetaminophen 325 mg tablet RxNorm: 057966 1-2 Tablet(s) PO Q4 PRN as needed for pain 01/30/20172016 Inactive hydrocodone 10 mg-acetaminophen 325 mg tablet RxNorm: 232507 1-2 Tablet(s) PO Q4 PRN as needed for pain 01/01/20172016 Inactive hydrocodone 10 mg-acetaminophen 325 mg tablet RxNorm: 471534 1-2 Tablet(s) PO Q4 PRN as needed for pain 12/02/20162016 Inactive hydrocodone 10 mg-acetaminophen 325 mg tablet RxNorm: 534967 1-2 Tablet(s) PO Q4 PRN as needed for pain 10/31/20162016 Inactive hydrocodone 10 mg-acetaminophen 325 mg tablet RxNorm: 727555 1-2 Tablet(s) PO Q4 PRN as needed for pain 10/03/20162016 Inactive pantoprazole 40 mg tablet,delayed release RxNorm: 090210 1 Tablet(s) PO daily 09/02/2016 12/03/2017 Inactive hydrocodone 10 mg-acetaminophen 325 mg tablet RxNorm: 462451 1-2 Tablet(s) PO Q4 PRN as needed for pain 08/30/20162016 Inactive pantoprazole 40 mg tablet,delayed release RxNorm: 194704 1 Tablet(s) PO daily 08/19/2016 09/01/2016 Inactive doxazosin 4 mg tablet RxNorm: 583612 1 TABLET(S) PO DAILY 201608/06/2017 Inactive levothyroxine 50 mcg tablet RxNorm: 312585 1 TABLET(S) PO DAILY 08/12/2016 05/04/2017 Inactive metoprolol succinate ER 25 mg tablet,extended release 24 hr RxNorm: 840401 1 TABLET(S) PO DAILY 07/08/2016 04/03/2017 Inactive hydrocodone 10 mg-acetaminophen 325 mg tablet RxNorm: 674199 1-2 Tablet(s) PO Q4 PRN as needed for pain 07/02/20162016 Inactive hydrocodone 10 mg-acetaminophen 325 mg tablet RxNorm: 314418 1-2 Tablet(s) PO Q4 PRN as needed for pain 06/05/20162016 Inactive hydrocodone 10 mg-acetaminophen 325 mg tablet RxNorm: 113039 1-2 Tablet(s) PO Q4 PRN as needed for pain 05/06/20162016 Inactive hydrocodone 10 mg-acetaminophen 325 mg tablet RxNorm: 334827 1-2 Tablet(s) PO Q4 PRN as needed for pain 05/06/20162016 Inactive allopurinol 100 mg tablet RxNorm: 317625 3 Tablet(s) PO daily - 2 in the AM and 1 at HS 05/06/2016 04/30/2017 Inactive hydrocodone 10 mg-acetaminophen 325 mg tablet RxNorm: 315316 1-2 Tablet(s) PO Q4 PRN as needed for pain 03/04/20162016 Inactive hydrocodone 10 mg-acetaminophen 325 mg tablet RxNorm: 604769 1-2 Tablet(s) PO Q4 PRN as needed for pain 02/01/20162015 Inactive omeprazole 20 mg capsule,delayed release RxNorm: 691344 1 Capsule(s) PO BID 01/04/2016 07/01/2016 Inactive atorvastatin 40 mg tablet RxNorm: 472015 1 Tablet(s) PO daily 01/04/2016 06/03/2017 Inactive lisinopril 10 mg tablet RxNorm: 005300 1 Tablet(s) PO daily 05/05/2017 Inactive meloxicam 15 mg tablet RxNorm: 958793 TAKE 1 TABLET BY MOUTH EVERY DAY 10/17/2015 07/01/2016 Inactive levothyroxine 50 mcg tablet RxNorm: 160289 1 TABLET(S) PO DAILY 10/17/2015 07/12/2016 Inactive hydrocodone 10 mg-acetaminophen 325 mg tablet RxNorm: 989758 1-2 Tablet(s) PO Q4 PRN as needed for pain 10/10/20152015 Inactive Lipitor 40 mg tablet RxNorm: 741986 1 Tablet(s) PO daily 201501/03/2016 Inactive MS Contin 60 mg tablet,extended release RxNorm: 343704 1 Tablet(s) PO BID 08/30/2015 10/03/2015 Inactive hydrocodone 10 mg-acetaminophen 325 mg tablet RxNorm: 533409 1-2 Tablet(s) PO Q4 PRN as needed for pain 08/30/20152015 Inactive doxazosin 4 mg tablet RxNorm: 607134 1 Tablet(s) PO daily 201507/26/2016 Inactive OxyContin 20 mg tablet,crush resistant,extended release RxNorm: 3248911 1 Tablet(s ) PO BID 08/02/2015 08/29/2015 Inactive meloxicam 15 mg tablet RxNorm: 794858 TAKE 1 TABLET BY MOUTH EVERY DAY 07/25/2015 10/16/2015 Inactive hydrocodone 10 mg-acetaminophen 325 mg tablet RxNorm: 448812 1 Tablet(s) PO Q4 PRN as needed for pain 07/13/20152015 Inactive levothyroxine 50 mcg tablet RxNorm: 454762 1 Tablet(s) PO daily 07/13/2015 10/10/2015 Inactive metoprolol succinate ER 25 mg tablet,extended release 24 hr RxNorm: 953548 1 Tablet(s) PO daily 06/30/2015 06/23/2016 Inactive hydrocodone 10 mg-acetaminophen 325 mg tablet RxNorm: 471624 1 Tablet(s) PO Q4 PRN as needed for pain 04/21/20152015 Inactive hydrocodone 10 mg-acetaminophen 325 mg tablet RxNorm: 907350 1 Tablet(s) PO Q4 PRN as needed for pain 03/30/20152015 Inactive allopurinol 100 mg tablet RxNorm: 180070 3 Tablet(s) PO 2 at am 1 at hs UD 02/08/2015 02/02/2016 Inactive hydrocodone 10 mg-acetaminophen 325 mg tablet RxNorm: 940168 1 Tablet(s) PO Q4 PRN 01/25/2015 03/29/2015 Inactive omeprazole 20 mg capsule,delayed release RxNorm: 922036 1 Capsule(s) PO BID 1at am 1at pm 01/05/2015 12/30/2015 Inactive hydrocodone 10 mg-acetaminophen 325 mg tablet RxNorm: 188914 1 Tablet(s) PO Q4 PRN 01/05/2015 01/24/2015 Inactive Voltaren 1 % topical gel RxNorm: 836437 4 Gram(s) TOP QID 10/0612/04/2014 Inactive Multivitamin & Mineral Formula oral RxNorm: oral No Start Date Active potassium 99 mg tablet RxNorm: 1 Tablet(s) PO daily No Start Date Active B gogbuyr-R-wunmneq tablet RxNorm: 1 Tablet(s) PO daily No Start Date Active clopidogrel 75 mg tablet RxNorm: 410141 1 Tablet(s) PO daily No Start Date Active magnesium oxide 400 mg tablet RxNorm: 590346 1 Tablet(s) PO daily No Start Date Active aspirin 81 mg tablet RxNorm: 498474 1 Tablet(s) PO daily No Start Date Active omega 3 183.3 mg-dha 75 mg-epa 91.6 mg-fish oil 306 mg capsule RxNorm: 1 Capsule(s) PO daily No Start Date Active Calcium + D 600 mg (1,500)-200 unit tablet RxNorm: 432895 1 Tablet(s) PO daily No Start Date Active Ranexa 500 mg tablet,extended release RxNorm: 217761 1 Tablet(s) PO BID No Start Date Active allopurinol 100 mg tablet RxNorm: 300688 Tablet(s) PO 2 at am 1 at hs No Start Date 02/07/2015 Inactive Zithromax Z-Elmer 250 mg tablet RxNorm: 247628 1 Tablet(s) PO UD No Start Date 05/29/2017 Inactive pantoprazole 40 mg tablet,delayed release RxNorm: 057764 1 Tablet(s) PO daily No Start Date 08/18/2016 Inactive meloxicam 15 mg tablet RxNorm: 615553 1 Tablet(s) PO daily No Start Date 07/24/2015 Inactive doxazosin 4 mg tablet RxNorm: 830441 1 Tablet(s) PO daily No Start Date 08/01/2015 Inactive hydrocodone 7.5 mg-acetaminophen 325 mg tablet RxNorm: 934057 1 Tablet(s) PO QID as needed for pain No Start Date 2014 Inactive Vitamin D3 5,000 unit tablet RxNorm: 476104 1 Tablet(s) PO daily No Start Date 07/01/2016 Inactive B-12 Plus 1,000 mcg/mL injection solution RxNorm: 959010 1 Milliliter(s) Inj daily No Start Date 07/01/2016 Inactive magnesium citrate RxNorm: 6574 miscellaneous No Start Date 07/02/2016 Inactive Lipitor 20 mg tablet RxNorm: 097539 1 Tablet(s) PO daily No Start Date 08/29/2015 Inactive metoprolol succinate ER 25 mg tablet,extended release 24 hr RxNorm: 957649 1 Tablet(s) PO daily No Start Date 2015 Inactive lisinopril 10 mg tablet RxNorm: 610976 1 Tablet(s) PO daily No Start Date 01/03/2016 Inactive levothyroxine 50 mcg tablet RxNorm: 748836 1 Tablet(s) PO daily No Start Date 07/12/2015 Inactive omeprazole 20 mg capsule,delayed release RxNorm: 968745 1 Capsule(s) PO daily No Start Date 01/18/2018 Inactive omeprazole 20 mg capsule,delayed release RxNorm: 691541 Capsule(s) PO daily 1at am 1at pm No Start Date 01/04/2015 Inactive Medication Administered No Medication Administered data Immunizations Vaccine Codes Date Status Influenza CVX: 141 02/04/2017 completed Influenza CVX: 141 01/04/2016 completed Pneumococcal (Adult) CVX: 133 01/04/2016 completed Influenza CVX: 141 01/05/2015 completed Influenza CVX: 141 11/12/2013 completed Pneumococcal CVX: 33 11/12/2013 completed Assessments Condition Codes Effective Dates Pain in right knee ICD-10: M25.561 ICD-9: [...] Visit Reason For Visit Effective Dates Notes medication follow up 12/04/2017 Annual Medicare Wellness [...] Item Item Code Result Date Free T4 Huu116 FREE T4 0.87 ng/dL 12/04/2017 Tsh Ord6 TSH (3rd IS) 3.04 uIU/mL 12/04/2017 Lipid Ord30 CHOL 164 mg/dL 03/17/2017 Lipid Ord30 HDL 43.0 mg/dl 03/17/2017 Lipid Ord30 TRIG 144 mg/dL 03/17/2017 Lipid Ord30 LDL 92 mg/dL 03/17/2017 Lipid Ord30 C/HDL 3.8 Ratio 03/17/2017 Hepatic Fxx856 ALBUMIN 4.4 g/dL 03/17/2017 Hepatic Bbb186 TPRO 7.3 g/dL 03/17/2017 Hepatic Fpp635 GLOB 2.9 g/dL 03/17/2017 Hepatic Haa821 A/G Ratio 1.5 Ratio 03/17/2017 Hepatic Tuz712 ALK PHOS 125 U/L 03/17/2017 Hepatic Zfc733 ALT(SGPT) 15 U/L 03/17/2017 Hepatic Igl749 AST(SGOT) 22 U/L 03/17/2017 Hepatic Znb571 BILI T 0.7 mg/dL 03/17/2017 Hepatic Bur970 BILI D 0.1 mg/dL 03/17/2017 Hepatic Ofx943 BILI I 0.6 mg/dL 03/17/2017 Tsh Ord6 hTSH II 2.89 uIU/mL 01/13/2017 Comp Metabolic Mhh287 NA 139 mEq/L 01/13/2017 Comp Metabolic Gdc755 K 4.4 mEq/L 01/13/2017 Comp Metabolic Gjh706 CL 105 mEq/L 01/13/2017 Comp Metabolic Rei354 CO2 29.0 mEq/L 01/13/2017 Comp Metabolic Fxs161 ANION GAP 9 01/13/2017 Comp Metabolic Wse578 GLUCOSE 105 mg/dL 01/13/2017 Comp Metabolic Swl941 Creat 1.1 mg/dL 01/13/2017 Comp Metabolic Chg449 eGFR 68 ml/min/1.73m2 01/13/2017 Comp Metabolic Msn013 BUN 12 mg/dL 01/13/2017 Comp Metabolic Lho382 B/C Ratio 10.7 Ratio 01/13/2017 Comp Metabolic Lfr895 CALCIUM 9.2 mg/dL 01/13/2017 Comp Metabolic Rbt962 ALK PHOS 90 U/L 01/13/2017 Comp Metabolic Dej508 AST(SGOT) 18 U/L 01/13/2017 Comp Metabolic Vwn953 ALT(SGPT) 12 U/L 01/13/2017 Comp Metabolic Chj002 BILI T 0.5 mg/dL 01/13/2017 Comp Metabolic Nsf527 ALBUMIN 4.1 g/dL 01/13/2017 Comp Metabolic Zzr064 TPRO 6.4 g/dL 01/13/2017 Comp Metabolic Eip333 GLOB 2.3 g/dL 01/13/2017 Comp Metabolic Rco545 A/G Ratio 1.8 Ratio 01/13/2017 Comp Metabolic Fau881 Osmo 278 mOsmo 01/13/2017 Lipid Ord30 CHOL [...] 35.6 pg 01/13/2017 Cbc With Differential Ord2 Luna% 10.5 % 01/13/2017 Cbc With Differential Ord2 [...] 1.30 K/ul 01/13/2017 Cbc With Differential Ord2 Luna ABS# 0.7 K/ul 01/13/2017 Cbc With Differential Ord2 Eos ABS# 0.2 K/ul 01/13/2017 Cbc With Differential Ord2 Baso ABS# 0.0 K/ul 01/13/2017 Total Psa Ord10 PSA 0.02 ng/mL 01/13/2017 Vitamin D 25 Oh Dlw2432 VITAMIN D, 25 HYDROXY 65.24 ng/mL Tsh Ord6 hTSH II 1.32 uIU/mL 10/20/2014 Comp Metabolic Xea738 NA 138 mEq/L 10/20/2014 Comp Metabolic Rcj548 K 4.4 mEq/L 10/20/2014 Comp Metabolic Apc563 CL 106 mEq/L 10/20/2014 Comp Metabolic Izq145 CO2 28.0 mEq/L 10/20/2014 Comp Metabolic Fkq143 ANION GAP 8 10/20/2014 Comp Metabolic Zqe621 GLUCOSE 98 mg/dL 10/20/2014 Comp Metabolic Gql750 Creat 1.0 mg/dL 10/20/2014 Comp Metabolic Axl733 eGFR 74 ml/min/1.73m2 10/20/2014 Comp Metabolic Ajg717 BUN 14 mg/dL 10/20/2014 Comp Metabolic Kgl099 B/C Ratio 13.5 Ratio 10/20/2014 Comp Metabolic Idm500 CALCIUM 9.4 mg/dL 10/20/2014 Comp Metabolic Toy679 ALK PHOS 125 U/L 10/20/2014 Comp Metabolic Vob861 AST(SGOT) 22 U/L 10/20/2014 Comp Metabolic Qbt140 ALT(SGPT) 20 U/L 10/20/2014 Comp Metabolic Uxu926 BILI T 0.5 mg/dL 10/20/2014 Comp Metabolic Syx431 ALBUMIN 4.4 g/dL 10/20/2014 Comp Metabolic Wdv018 TPRO 6.7 g/dL 10/20/2014 Comp Metabolic Dhh811 GLOB 2.3 g/dL 10/20/2014 Comp Metabolic Jub474 A/G Ratio 1.9 Ratio 10/20/2014 Comp Metabolic Eco526 Osmo 276 mOsmo 10/20/2014 Cbc With Differential [...] knee - healing Procedures Procedure Codes Date PPPS, SUBSEQ VISIT CPT -4: G0439 10/24/2017 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 3-[address]: 806270506 CPT-4: G0436 02/04/2017 ADMIN INFLUENZA VIRUS VAC CPT-4: G0008 02/04/2017 FLU VAC NO PRSV 4 ROSETTE 3 YRS+ CPT-4: 31805 02/04/2017 PPPS, SUBSEQ VISIT CPT -4: G0439 10/18/2016 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 3-[address]: 302690476 CPT-4: G0436 10/03/2016 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 3-[address]: 452209308 CPT-4: G0436 07/02/2016 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 3-[address]: 977597546 CPT-4: G0436 04/04/2016 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 3-[address]: 079824365 CPT-4: G0436 01/04/2016 ADMIN INFLUENZA VIRUS VAC CPT-4: G0008 01/04/2016 ADMIN PNEUMOCOCCAL VACCINE SNOMED CT: 37033357 CPT-4: G0009 01/04/2016 PNEUMOCOCCAL VACC [address]: 52694196 CPT-4: 83859 01/04/2016 FLU VACC 4 ROSETTE 3 Y[address] PLUS IM SNOMED CT: 58303620 CPT-4: 67614 01/04/2016 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 3-[address]: 795507926 CPT-4: G0436 10/04/2015 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 3-[address]: 654017090 CPT-4: G0436 08/30/2015 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 3-[address]: 844676556 CPT-4: G0436 08/02/2015 ADMIN INFLUENZA VIRUS VAC CPT-4: G0008 01/05/2015 FLU VACC 4 ROSETTE 3 YRS PLUS IM Formatting Model/CDA Sections, Assigned to SNOMED CT: 93123453 CPT-4: 90115Rmcrrqu 01/05/2015 Vital Signs Date Vital 12/04/2017 Blood Pressure 1: 142/70 Code : 8480-6 BMI: 28.2 Code : 78910-6 Heart Rate 1 : 103 bpm Height: 6' SpO2: 94% Weight: 208 lbs 10/24/2017 Height: Weight: 08/28/2017 Blood Pressure 1: 130/72 Code : 8480-6 BMI: 28.3 Code : 97016-4 Heart Rate 1 : 60 bpm Height: 6' SpO2: 96% Weight: 209 lbs 07/31/2017 Blood Pressure 1: 126/64 Code : 8480-6 BMI: 29.7 Code : 04353-7 Heart Rate 1 : 59 bpm Height: 6' SpO2: 95% Weight: 219 lbs 06/04/2017 Blood Pressure 1: 134/86 Code : 8480-6 BMI: 28.6 Code : 39075-3 Heart Rate 1 : 91 bpm Height: 6' SpO2: 97% Weight: 211 lbs 02/04/2017 Blood Pressure 1: 128/74 Code : 8480-6 BMI: 28.3 Code : 26222-8 Heart Rate 1 : 63 bpm Height: 6' SpO2: 96% Weight: 209 lbs 10/18/2016 BMI: 27.7 Code: 19634-9 Height: 6' Weight: 204 lbs 10/03/2016 Blood Pressure 1: 118/70 Code : 8480-6 BMI: 27.7 Code : 97011-1 Heart Rate 1 : 58 bpm Height: 6' SpO2: 95% Weight: 204 lbs 07/02/2016 Blood Pressure 1: 104/64 Code : 8480-6 BMI: 28.5 Code : 22600-0 Heart Rate 1 : 63 bpm Height: 6' SpO2: 98% Weight: 210 lbs 04/04/2016 Blood Pressure 1: 116/62 Code : 8480-6 BMI: 29.9 Code : 23294-4 Heart Rate 1 : 59 bpm Height: 6' SpO2: 98% Weight: 220 lbs 8 oz 01/04/2016 Blood Pressure 1: 136/78 Code : 8480-6 BMI: 29.6 Code : 54958-4 Heart Rate 1 : 55 bpm Height: 6' SpO2: 97% Weight: 218 lbs 10/04/2015 Blood Pressure 1: 130/80 Code : 8480-6 BMI: 29.3 Code : 23015-2 Heart Rate 1 : 69 bpm Height: 6' SpO2: 97% Weight: 216 lbs 08/30/2015 Blood Pressure 1: 112/64 Code : 8480-6 BMI: 30.4 Code : 11726-1 Heart Rate 1 : 68 bpm Height: 6' SpO2: 95% Weight: 224 lbs 8 oz 08/02/2015 Blood Pressure 1: 120/70 Code : 8480-6 BMI: 30.1 Code : 41902-2 Heart Rate 1 : 55 bpm Height: 6' SpO2: 97% Weight: 222 lbs 04/21/2015 Blood Pressure 1: 160/86 Code : 8480-6 Blood Pressure 1: 138/82 Code: 8480-6 BMI: 30.9 Code: 76045-4 Heart Rate 1: 96 bpm Height: 6' SpO2: 96% Weight: 228 lbs 03/21/2015 Blood Pressure 1: 124/82 Code : 8480-6 BMI: 30.0 Code : 89036-2 Heart Rate 1 : 78 bpm Height: 6' SpO2: 98% Weight: 221 lbs 01/05/2015 Blood Pressure 1: 138/78 Code : 8480-6 BMI: 29.3 Code : 23883-2 Heart Rate 1 : 61 bpm Height: 6' SpO2: 98% Weight: 216 lbs 10/06/2014 Blood Pressure 1: 130/78 Code : 8480-6 BMI: 29.3 Code : 99598-3 Heart Rate 1 : 71 bpm Height: [...] back pain, takes hydrocodone prescribed by the [place] [facility] Location lumbar spine 08/30/2015 None [...] back pain, takes hydrocodone prescribed by the [place] [facility] lumbar spine 08/02/2015 None [...] pain, takes hydrocodone initially prescribed by the [place] [facility] lumbar spine 04/21/2015 None [...] data Encounters Encounter Performer Location Codes Date ([id number]) [id number] EST. PATIENT, LEVEL IV Diagnosis: Essential (primary) hypertension[ICD10: I10] Diagnosis: Atrophy of thyroid (acquired)[ICD10: E03.4] Diagnosis: Pain in left knee[ICD10: M25.562] Diagnosis: Pain in right knee[ICD10: M25.561] Diagnosis: Mixed hyperlipidemia[ICD10: E78.2] Pepper Baeza MD, [facility] CPT-4: 92598 12/04/2017 ([id number]) 86519 EST. PATIENT, LEVEL IV Diagnosis: Essential (primary) hypertension[ICD10: I10] Diagnosis: Pain in left knee[ICD10: M25.562] Diagnosis: Pain in right knee[ICD10: M25.561] Diagnosis: Pain in right hip[ICD10: M25.551] Pepper Baeza MD, [facility] CPT-4: 69095 08/28/2017 ([id number]) 65674 EST. PATIENT, LEVEL IV Diagnosis: Chronic pain syndrome[ICD10: G89.4] Diagnosis: Tobacco use[ICD10: Z72.0] Diagnosis: Localized enlarged lymph nodes[ICD10: R59.0] Pepper Baeza MD, [facility] CPT-4: 21690 07/31/2017 ([id number]) 05788 EST. PATIENT, LEVEL IV Diagnosis: Essential (primary) hypertension[ICD10: I10] Diagnosis: Chronic pain syndrome[ICD10: G89.4] Diagnosis: Atrophy of thyroid (acquired)[ICD10: E03.4] Diagnosis: Tobacco use[ICD10: Z72.0] Pepper Baeza MD, [facility] CPT-4: 59012 06/04/2017 ([id number]) 13126 EST. PATIENT, LEVEL IV Diagnosis: Essential (primary) hypertension[ICD10: I10] Diagnosis: Low back pain[ICD10: M54.5] Diagnosis: Iliotibial band syndrome, right leg[ICD10: M76.31] Diagnosis: Chronic pain syndrome[ICD10: G89.4] Diagnosis: Encounter for immunization[ICD10: Z23] Pepper Baeza MD, [facility] CPT-4: 35189 02/04/2017 ([id number]) 60161 EST. PATIENT, LEVEL IV Diagnosis: Essential (primary) hypertension[ICD10: I10] Diagnosis: Chronic pain syndrome[ICD10: G89.4] Diagnosis: Low back pain[ICD10: M54.5] Diagnosis: Pain in right knee[ICD10: M25.561] Diagnosis: Pain in left knee[ICD10: M25.562] Pepper Baeza MD, [facility] CPT-4: 72423 10/03/2016 [id number]) [id number] EST. PATIENT, LEVEL IV Diagnosis: Essential (primary) hypertension[ICD10: I10] Diagnosis: Mixed hyperlipidemia[ICD10: E78.2] Diagnosis: Chronic pain syndrome[ICD10: G89.4] Diagnosis: Atrophy of thyroid (acquired)[ICD10: E03.4] Pepper Baeza MD, [facility] CPT-4: 05085 07/02/2016 ([id number]) 10841 EST. PATIENT, LEVEL IV Diagnosis: Essential (primary) hypertension[ICD10: I10] Diagnosis: Tobacco use[ICD10: Z72.0] Diagnosis: Chronic pain syndrome[ICD10: G89.4] Pepper Baeza MD, [facility] CPT-4: 69673 04/04/2016 ([id number]) 52634 EST. PATIENT, LEVEL IV Diagnosis: Encounter for immunization[ICD10: Z23] Diagnosis: Essential (primary) hypertension[ICD10: I10] Diagnosis: Chronic pain syndrome[ICD10: G89.4] Diagnosis: Tobacco use[ICD10: Z72.0] Diagnosis: Mixed hyperlipidemia[ICD10: E78.2] Diagnosis: Gastro-esophageal reflux disease without esophagitis[ICD10: K21.9] Pepper Baeza MD, [facility] CPT-4: 32212 01/04/2016 [id number]) 68765 EST. PATIENT, LEVEL IV Diagnosis: Essential (primary) hypertension[ICD10: I10] Diagnosis: Chronic pain syndrome[ICD10: G89.4] Diagnosis: Tobacco use[ICD10: Z72.0] Pepper Baeza MD, [facility] CPT-4: 25399 10/04/2015 [id number]) [id number] EST. PATIENT, LEVEL III Diagnosis: Chronic pain syndrome[ICD10: G89.4] Diagnosis: Low back pain[ICD10: M54.5] Diagnosis: Tobacco use[ICD10: Z72.0] Diagnosis: Mixed hyperlipidemia[ICD10: E78.2] Pepper Baeza MD, [facility] CPT-4: 27538 08/30/2015 ([id number]) 89605 EST. PATIENT, LEVEL IV Diagnosis: Essential (primary) hypertension[ICD10: I10] Diagnosis: Low back pain[ICD10: M54.5] Diagnosis: Chronic pain syndrome[ICD10: G89.4] Pepper Baeza MD, [facility] CPT-4: 52638 08/02/2015 ([id number]) 25411 EST. PATIENT, LEVEL III Diagnosis: Essential (primary) hypertension[ICD10: I10] Diagnosis: Low back pain[ICD10: M54.5] Elaine Baeza MD, [facility] CPT-4: 27386 04/21/2015 ([id number]) 94092 EST. PATIENT, LEVEL IV Diagnosis: Epigastric pain[ICD10: R10.13] Diagnosis: Essential (primary) hypertension[ICD10: I10] Diagnosis: Gastro-esophageal reflux disease without esophagitis[ICD10: K21.9] Pepper Baeza MD, [facility] CPT-4: 90468 03/21/2015 ([id number]) 60115 EST. PATIENT, LEVEL III Diagnosis: ESSENTIAL HYPERTENSION[ICD9: 401.9] Diagnosis: SCIATICA[ICD9: 724.3] Pepper Baeza MD, [facility] CPT-4: 39949 01/05/2015 ([id number]) OFFICE VISIT, NEW - LEVEL 4 Diagnosis: ESSENTIAL HYPERTENSION[ICD9: 401.9] Diagnosis: HYPOTHYROIDISM[ICD9: 244.9] Diagnosis: ESOPHAGEAL REFLUX[ICD9: 530.81] Pepper Baeza MD, [facility] CPT- 4: 58978 10/06/2014 Plan of Care Planned Activity Notes [...] of over-medication. 12/04/2017 Appointment: Pepper Baeza WPtel: [address] [place], [place] [phone] (15 min) Moderate 12/04/2017 Patient Education: Patient [...] care surrogate. 10/24/2017 Appointment: Parul Collier WPtel: [facility] [place] - Annual Wellness Visit 10/24/2017 Patient Education: Patient Medication Summary Completed 10/24/2017 Appointment: Pepper Baeza WPtel: [facility] [place] [place] (15 min) Moderate 09/09/2017 Visit Plan: Hypertension [...] anterior hip/thigh 08/28/2017 Appointment: Pepper Baeza WPtel: [facility] [place]9 [facility] [id number] [facility] (15 min) Moderate 08/28/2017 Patient Education: Patient Medication Summary Completed 08/28/2017 Care Plan: X-RAY EXAM OF HIP LOINC : 71496-8 Pending 08/28/2017 Visit Plan: Hypertension - well [...] #180 pills. 07/31/2017 Appointment: Pepper Baeza WPtel: [facility] [place] [address] (15 min) Moderate 07/31/2017 Patient Education: Patient Medication Summary Completed 07/31/2017 Care Plan: CT THORAX W/O DYE LOINC : 17116-7 Pending 07/31/2017 Visit Plan: Hypertension - well [...] tomorrow. 06/04/2017 App[facility]ment[phone] [id number] (30 min) Complex 06/04/2017 Patient Education: Patient [...] today 02/04/2017 Appointment: [phone] [id number] (30 min) Complex 02/04/2017 Patient Education: Patient [...] surrogate. 10/18/2016 [id number] [facility] - Annual Wellness Visit 10/18/2016 Patient Education: Patient Medication Summary Completed 10/18/2016 Patient Education: Smoking and Tobacco Addiction Completed 10/18/2016 Visit Plan: Low back pain - and knee pain - recommended a [facility] for strengthening, knee pain, [...] stenting. 10/03/2016 App[facility]ment: [facility] [phone] [id number] (30 min) Complex 10/03/2016 Patient Education: Patient [...] this time. 07/02/2016 Appointment: Pepper Baeza WPtel: [phone] [facility] [address] (30 min) Complex 07/02/2016 Patient Education: Patient [...] stopping smoking. 04/04/2016 Appointment: Pepper Baeza WPtel: [phone] [facility] [address] (30 min) Complex 04/04/2016 Patient Education: Patient [...] not improving. 01/04/2016 Appointment: [facility]ae[facility]el[phone] [id number] (15 min) Moderate 01/04/2016 Patient Education: Patient [...] of over-medication. 10/04/2015 Appointment: [facility] Bae[facility]el[phone] [id number] (15 min) Moderate 10/04/2015 Patient Education: Patient [...] stopping smoking. 08/02/2015 Appointment: Pepper Baeza WPtel: [facility] [place] (15 min) Moderate 08/02/2015 Patient Education: Patient [...] to patient. 10/06/2014 Appointment: Pepper Baeza WPtel: [facility] [place] [id number] [place] New Patient 10/06/2014 Patient Education: Patient Medication Summary Completed 10/06/2014 Patient Education: Hypertension Completed 10/06/2014 Instructions Comment get labs one week before your next appt . Low back pain - and knee pain - recommended a referal to [facility] physical therapy for strengthening, knee pain, [...] office if the symptoms are not improving. Carlos Marley . Hypertension - well controlled - continue [...] not improve or if they worsen. Carlos luong pennsaid. Recommend referral to Dr Kathe Lopezaid . Hypertension - well controlled - continue [...]
[2018-02-13] MEDS ORDERED: ADENOSINE 6 MG/2 ML (ADENOCARD) VIAL IV ONE (11:55)
[2018-02-13] MEDS ORDERED: NS IV 1000 ML 1,000 ML ONE (11:57)
--- OUTSIDE RECORDS SUMMARY | 2018-02-13 11:57 | XMS REPORT | CCD ---
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 Name Role Phone PP Unavailable CCM Unavailable Summary Purpose Interface Exchange Insurance Providers Payer name Policy type / Coverage type Covered democrat ID Effective Begin Date Effective End Date WPS Medicare Part B Medicare Part B [id number] Unknown [facility] Medicare Part B [id number] Unknown Family history Mother Diagnosis Age At Onset Heart Attack Unknown Arthritis Unknown Dementia Unknown Grandfather Diagnosis Age At Onset Leukemia Unknown Father Diagnosis Age At Onset Hypertension Unknown Arthritis Unknown Heart Attack Unknown Social History Social History Element Codes Description Effective Dates Marital status Unknown Zoe 10/04/2015 Number of children Unknown 3 10/06/2014 Employment Unknown Retired 10/06/[address]: 70959567 Current every day smoker 10/06/2014 Number of [...] Start Date Stop Date Status Fill Instructions hydrocodone 10 mg-acetaminophen 325 mg tablet RxNorm: 819070 1-2 Tablet(s) PO Q4 PRN as needed for pain 02/02/20182017 Active pantoprazole 40 mg tablet,delayed release RxNorm: 589245 1 Tablet(s) PO daily 01/16/2018 01/10/2019 Active metoprolol succinate ER 25 mg tablet,extended release 24 hr RxNorm: 521593 1 TABLET(S) PO DAILY 01/13/2018 10/09/2018 Active hydrocodone 10 mg-acetaminophen 325 mg tablet RxNorm: 771120 1-2 Tablet(s) PO Q4 PRN as needed for pain 12/31/20172017 Inactive hydrocodone 10 mg-acetaminophen 325 mg tablet RxNorm: 617097 1-2 Tablet(s) PO Q4 PRN as needed for pain 11/28/20172017 Inactive hydrocodone 10 mg-acetaminophen 325 mg tablet RxNorm: 454181 1-2 Tablet(s) PO Q4 PRN as needed for pain 10/24/20172017 Inactive hydrocodone 10 mg-acetaminophen 325 mg tablet RxNorm: 873147 1-2 Tablet(s) PO Q4 PRN as needed for pain 09/26/20172017 Inactive doxazosin 4 mg tablet RxNorm: 574020 1 TABLET(S) PO DAILY 201708/19/2018 Active allopurinol 100 mg tablet RxNorm: 265848 3 TABLET(S) PO DAILY - 2 IN THE AM AND 1 AT HS 08/04/2017 04/30/2018 Active hydrocodone 10 mg-acetaminophen 325 mg tablet RxNorm: 358313 1-2 Tablet(s) PO Q4 PRN as needed for pain 07/31/20172017 Inactive Hysingla ER 120 mg tablet, crush resistant, extended release RxNorm: 4652058 1 Tablet(s) PO daily 07/31/20172017 Inactive hydrocodone 10 mg-acetaminophen 325 mg tablet RxNorm: 496894 1-2 Tablet(s) PO Q4 PRN as needed for pain 07/03/20172017 Inactive Lipitor 40 mg tablet RxNorm: 537993 1 Tablet(s) PO daily 201705/29/2018 Active hydrocodone 10 mg-acetaminophen 325 mg tablet RxNorm: 633097 1-2 Tablet(s) PO Q4 PRN as needed for pain 06/04/20172017 Inactive Tessalon 200 mg capsule RxNorm: 835385 1 Capsule(s) PO TID as needed cough 05/30/2017 06/03/2017 Inactive Zithromax Z-Elmer 250 mg tablet RxNorm: 637113 1 Tablet(s) PO UD 05/30/2017 12/08/2017 Inactive Tessalon 200 mg capsule RxNorm: 839062 1 Capsule(s) PO TID as needed cough 05/30/2017 05/29/2017 Inactive levothyroxine 50 mcg tablet RxNorm: 818338 1 TABLET(S) PO DAILY 05/05/2017 01/29/2018 Inactive metoprolol succinate ER 25 mg tablet,extended release 24 hr RxNorm: 446074 1 TABLET(S) PO DAILY 04/08/2017 01/02/2018 Inactive hydrocodone 10 mg-acetaminophen 325 mg tablet RxNorm: 366074 1-2 Tablet(s) PO Q4 PRN as needed for pain 04/04/20172017 Inactive hydrocodone 10 mg-acetaminophen 325 mg tablet RxNorm: 422222 1-2 Tablet(s) PO Q4 PRN as needed for pain 03/03/20172016 Inactive hydrocodone 10 mg-acetaminophen 325 mg tablet RxNorm: 371845 1-2 Tablet(s) PO Q4 PRN as needed for pain 01/30/20172016 Inactive hydrocodone 10 mg-acetaminophen 325 mg tablet RxNorm: 910545 1-2 Tablet(s) PO Q4 PRN as needed for pain 01/01/20172016 Inactive hydrocodone 10 mg-acetaminophen 325 mg tablet RxNorm: 245092 1-2 Tablet(s) PO Q4 PRN as needed for pain 12/02/20162016 Inactive hydrocodone 10 mg-acetaminophen 325 mg tablet RxNorm: 273001 1-2 Tablet(s) PO Q4 PRN as needed for pain 10/31/20162016 Inactive hydrocodone 10 mg-acetaminophen 325 mg tablet RxNorm: 295414 1-2 Tablet(s) PO Q4 PRN as needed for pain 10/03/20162016 Inactive pantoprazole 40 mg tablet,delayed release RxNorm: 323068 1 Tablet(s) PO daily 09/02/2016 12/03/2017 Inactive hydrocodone 10 mg-acetaminophen 325 mg tablet RxNorm: 760757 1-2 Tablet(s) PO Q4 PRN as needed for pain 08/30/20162016 Inactive pantoprazole 40 mg tablet,delayed release RxNorm: 607648 1 Tablet(s) PO daily 08/19/2016 09/01/2016 Inactive doxazosin 4 mg tablet RxNorm: 872175 1 TABLET(S) PO DAILY 201608/06/2017 Inactive levothyroxine 50 mcg tablet RxNorm: 719078 1 TABLET(S) PO DAILY 08/12/2016 05/04/2017 Inactive metoprolol succinate ER 25 mg tablet,extended release 24 hr RxNorm: 837058 1 TABLET(S) PO DAILY 07/08/2016 04/03/2017 Inactive hydrocodone 10 mg-acetaminophen 325 mg tablet RxNorm: 752443 1-2 Tablet(s) PO Q4 PRN as needed for pain 07/02/20162016 Inactive hydrocodone 10 mg-acetaminophen 325 mg tablet RxNorm: 259157 1-2 Tablet(s) PO Q4 PRN as needed for pain 06/05/20162016 Inactive hydrocodone 10 mg-acetaminophen 325 mg tablet RxNorm: 534750 1-2 Tablet(s) PO Q4 PRN as needed for pain 05/06/20162016 Inactive hydrocodone 10 mg-acetaminophen 325 mg tablet RxNorm: 600701 1-2 Tablet(s) PO Q4 PRN as needed for pain 05/06/20162016 Inactive allopurinol 100 mg tablet RxNorm: 841701 3 Tablet(s) PO daily - 2 in the AM and 1 at HS 05/06/2016 04/30/2017 Inactive hydrocodone 10 mg-acetaminophen 325 mg tablet RxNorm: 639016 1-2 Tablet(s) PO Q4 PRN as needed for pain 03/04/20162016 Inactive hydrocodone 10 mg-acetaminophen 325 mg tablet RxNorm: 648769 1-2 Tablet(s) PO Q4 PRN as needed for pain 02/01/20162015 Inactive omeprazole 20 mg capsule,delayed release RxNorm: 836967 1 Capsule(s) PO BID 01/04/2016 07/01/2016 Inactive atorvastatin 40 mg tablet RxNorm: 234855 1 Tablet(s) PO daily 01/04/2016 06/03/2017 Inactive lisinopril 10 mg tablet RxNorm: 850258 1 Tablet(s) PO daily 05/05/2017 Inactive meloxicam 15 mg tablet RxNorm: 213968 TAKE 1 TABLET BY MOUTH EVERY DAY 10/17/2015 07/01/2016 Inactive levothyroxine 50 mcg tablet RxNorm: 013505 1 TABLET(S) PO DAILY 10/17/2015 07/12/2016 Inactive hydrocodone 10 mg-acetaminophen 325 mg tablet RxNorm: 091295 1-2 Tablet(s) PO Q4 PRN as needed for pain 10/10/20152015 Inactive Lipitor 40 mg tablet RxNorm: 112666 1 Tablet(s) PO daily 201501/03/2016 Inactive MS Contin 60 mg tablet,extended release RxNorm: 816260 1 Tablet(s) PO BID 08/30/2015 10/03/2015 Inactive hydrocodone 10 mg-acetaminophen 325 mg tablet RxNorm: 440180 1-2 Tablet(s) PO Q4 PRN as needed for pain 08/30/20152015 Inactive doxazosin 4 mg tablet RxNorm: 856315 1 Tablet(s) PO daily 201507/26/2016 Inactive OxyContin 20 mg tablet,crush resistant,extended release RxNorm: 4829170 1 Tablet(s ) PO BID 08/02/2015 08/29/2015 Inactive meloxicam 15 mg tablet RxNorm: 147493 TAKE 1 TABLET BY MOUTH EVERY DAY 07/25/2015 10/16/2015 Inactive hydrocodone 10 mg-acetaminophen 325 mg tablet RxNorm: 216792 1 Tablet(s) PO Q4 PRN as needed for pain 07/13/20152015 Inactive levothyroxine 50 mcg tablet RxNorm: 086692 1 Tablet(s) PO daily 07/13/2015 10/10/2015 Inactive metoprolol succinate ER 25 mg tablet,extended release 24 hr RxNorm: 761561 1 Tablet(s) PO daily 06/30/2015 06/23/2016 Inactive hydrocodone 10 mg-acetaminophen 325 mg tablet RxNorm: 897491 1 Tablet(s) PO Q4 PRN as needed for pain 04/21/20152015 Inactive hydrocodone 10 mg-acetaminophen 325 mg tablet RxNorm: 187860 1 Tablet(s) PO Q4 PRN as needed for pain 03/30/20152015 Inactive allopurinol 100 mg tablet RxNorm: 281907 3 Tablet(s) PO 2 at am 1 at hs UD 02/08/2015 02/02/2016 Inactive hydrocodone 10 mg-acetaminophen 325 mg tablet RxNorm: 430083 1 Tablet(s) PO Q4 PRN 01/25/2015 03/29/2015 Inactive omeprazole 20 mg capsule,delayed release RxNorm: 442425 1 Capsule(s) PO BID 1at am 1at pm 01/05/2015 12/30/2015 Inactive hydrocodone 10 mg-acetaminophen 325 mg tablet RxNorm: 507888 1 Tablet(s) PO Q4 PRN 01/05/2015 01/24/2015 Inactive Voltaren 1 % topical gel RxNorm: 739947 4 Gram(s) TOP QID 10/0612/04/2014 Inactive Multivitamin & Mineral Formula oral RxNorm: oral No Start Date Active potassium 99 mg tablet RxNorm: 1 Tablet(s) PO daily No Start Date Active B eimegdu-S-scptrii tablet RxNorm: 1 Tablet(s) PO daily No Start Date Active clopidogrel 75 mg tablet RxNorm: 636048 1 Tablet(s) PO daily No Start Date Active magnesium oxide 400 mg tablet RxNorm: 013838 1 Tablet(s) PO daily No Start Date Active aspirin 81 mg tablet RxNorm: 856267 1 Tablet(s) PO daily No Start Date Active omega 3 183.3 mg-dha 75 mg-epa 91.6 mg-fish oil 306 mg capsule RxNorm: 1 Capsule(s) PO daily No Start Date Active Calcium + D 600 mg (1,500)-200 unit tablet RxNorm: 328560 1 Tablet(s) PO daily No Start Date Active Ranexa 500 mg tablet,extended release RxNorm: 762898 1 Tablet(s) PO BID No Start Date Active allopurinol 100 mg tablet RxNorm: 466244 Tablet(s) PO 2 at am 1 at hs No Start Date 02/07/2015 Inactive Zithromax Z-Elmer 250 mg tablet RxNorm: 760191 1 Tablet(s) PO UD No Start Date 05/29/2017 Inactive pantoprazole 40 mg tablet,delayed release RxNorm: 055341 1 Tablet(s) PO daily No Start Date 08/18/2016 Inactive meloxicam 15 mg tablet RxNorm: 695559 1 Tablet(s) PO daily No Start Date 07/24/2015 Inactive doxazosin 4 mg tablet RxNorm: 517948 1 Tablet(s) PO daily No Start Date 08/01/2015 Inactive hydrocodone 7.5 mg-acetaminophen 325 mg tablet RxNorm: 933026 1 Tablet(s) PO QID as needed for pain No Start Date 2014 Inactive Vitamin D3 5,000 unit tablet RxNorm: 956575 1 Tablet(s) PO daily No Start Date 07/01/2016 Inactive B-12 Plus 1,000 mcg/mL injection solution RxNorm: 917879 1 Milliliter(s) Inj daily No Start Date 07/01/2016 Inactive magnesium citrate RxNorm: 6574 miscellaneous No Start Date 07/02/2016 Inactive Lipitor 20 mg tablet RxNorm: 500826 1 Tablet(s) PO daily No Start Date 08/29/2015 Inactive metoprolol succinate ER 25 mg tablet,extended release 24 hr RxNorm: 931729 1 Tablet(s) PO daily No Start Date 2015 Inactive lisinopril 10 mg tablet RxNorm: 541272 1 Tablet(s) PO daily No Start Date 01/03/2016 Inactive levothyroxine 50 mcg tablet RxNorm: 391182 1 Tablet(s) PO daily No Start Date 07/12/2015 Inactive omeprazole 20 mg capsule,delayed release RxNorm: 879227 1 Capsule(s) PO daily No Start Date 01/18/2018 Inactive omeprazole 20 mg capsule,delayed release RxNorm: 726297 Capsule(s) PO daily 1at am 1at pm [...] Item Item Code Result Date Free T4 Tnh914 FREE T4 0.87 ng/dL 12/04/2017 Tsh Ord6 TSH (3rd IS) 3.04 uIU/mL 12/04/2017 Lipid Ord30 CHOL 164 mg/dL 03/17/2017 Lipid Ord30 HDL 43.0 mg/dl 03/17/2017 Lipid Ord30 TRIG 144 mg/dL 03/17/2017 Lipid Ord30 LDL 92 mg/dL 03/17/2017 Lipid Ord30 C/HDL 3.8 Ratio 03/17/2017 Hepatic Aew761 ALBUMIN 4.4 g/dL 03/17/2017 Hepatic Iux617 TPRO 7.3 g/dL 03/17/2017 Hepatic Orh721 GLOB 2.9 g/dL 03/17/2017 Hepatic Kva733 A/G Ratio 1.5 Ratio 03/17/2017 Hepatic Xnl562 ALK PHOS 125 U/L 03/17/2017 Hepatic Tvd243 ALT(SGPT) 15 U/L 03/17/2017 Hepatic Qsu610 AST(SGOT) 22 U/L 03/17/2017 Hepatic Xbi348 BILI T 0.7 mg/dL 03/17/2017 Hepatic Qfq106 BILI D 0.1 mg/dL 03/17/2017 Hepatic Pup027 BILI I 0.6 mg/dL 03/17/2017 Tsh Ord6 hTSH II 2.89 uIU/mL 01/13/2017 Comp Metabolic Mxf512 NA 139 mEq/L 01/13/2017 Comp Metabolic Dqa723 K 4.4 mEq/L 01/13/2017 Comp Metabolic Xal304 CL 105 mEq/L 01/13/2017 Comp Metabolic Plp784 CO2 29.0 mEq/L 01/13/2017 Comp Metabolic Qnx256 ANION GAP 9 01/13/2017 Comp Metabolic Aav346 GLUCOSE 105 mg/dL 01/13/2017 Comp Metabolic Utl056 Creat 1.1 mg/dL 01/13/2017 Comp Metabolic Yra071 eGFR 68 ml/min/1.73m2 01/13/2017 Comp Metabolic Vto726 BUN 12 mg/dL 01/13/2017 Comp Metabolic Qyu689 B/C Ratio 10.7 Ratio 01/13/2017 Comp Metabolic Sqg145 CALCIUM 9.2 mg/dL 01/13/2017 Comp Metabolic Iiq750 ALK PHOS 90 U/L 01/13/2017 Comp Metabolic Nsq966 AST(SGOT) 18 U/L 01/13/2017 Comp Metabolic Xgi706 ALT(SGPT) 12 U/L 01/13/2017 Comp Metabolic Bfm745 BILI T 0.5 mg/dL 01/13/2017 Comp Metabolic Bdk105 ALBUMIN 4.1 g/dL 01/13/2017 Comp Metabolic Duo235 TPRO 6.4 g/dL 01/13/2017 Comp Metabolic Dhj296 GLOB 2.3 g/dL 01/13/2017 Comp Metabolic Rmp346 A/G Ratio 1.8 Ratio 01/13/2017 Comp Metabolic Ija083 Osmo 278 mOsmo 01/13/2017 Lipid Ord30 CHOL [...] 35.6 pg 01/13/2017 Cbc With Differential Ord2 [place]% 10.5 % 01/13/2017 Cbc With Differential Ord2 [...] 1.30 K/ul 01/13/2017 Cbc With Differential Ord2 [place] ABS# 0.7 K/ul 01/13/2017 Cbc With Differential Ord2 Eos ABS# 0.2 K/ul 01/13/2017 Cbc With Differential Ord2 Baso ABS# 0.0 K/ul 01/13/2017 Total Psa Ord10 PSA 0.02 ng/mL 01/13/2017 Vitamin D 25 Oh Hbc9271 VITAMIN D, 25 HYDROXY 65.24 ng/mL Tsh Ord6 hTSH II 1.32 uIU/mL 10/20/2014 Comp Metabolic Kmi490 NA 138 mEq/L 10/20/2014 Comp Metabolic Uct768 K 4.4 mEq/L 10/20/2014 Comp Metabolic Kof021 CL 106 mEq/L 10/20/2014 Comp Metabolic Ptg838 CO2 28.0 mEq/L 10/20/2014 Comp Metabolic Ftr388 ANION GAP 8 10/20/2014 Comp Metabolic Wmp338 GLUCOSE 98 mg/dL 10/20/2014 Comp Metabolic Aax169 Creat 1.0 mg/dL 10/20/2014 Comp Metabolic Qqj986 eGFR 74 ml/min/1.73m2 10/20/2014 Comp Metabolic Ito790 BUN 14 mg/dL 10/20/2014 Comp Metabolic Yby181 B/C Ratio 13.5 Ratio 10/20/2014 Comp Metabolic Sfr214 CALCIUM 9.4 mg/dL 10/20/2014 Comp Metabolic Tme944 ALK PHOS 125 U/L 10/20/2014 Comp Metabolic Fwr135 AST(SGOT) 22 U/L 10/20/2014 Comp Metabolic Gcq662 ALT(SGPT) 20 U/L 10/20/2014 Comp Metabolic Oqd957 BILI T 0.5 mg/dL 10/20/2014 Comp Metabolic Uup022 ALBUMIN 4.4 g/dL 10/20/2014 Comp Metabolic Ydo287 TPRO 6.7 g/dL 10/20/2014 Comp Metabolic Izv812 GLOB 2.3 g/dL 10/20/2014 Comp Metabolic Txe798 A/G Ratio 1.9 Ratio 10/20/2014 Comp Metabolic Pbj491 Osmo 276 mOsmo 10/20/2014 Cbc With Differential [...] normal 10/18/2016 None Full Exam - General 1995 Ears/Nose/Throat lips/teeth/gingiva Overall: benign lips 10/18/2016 None [...] SUBSEQ VISIT CPT -4: G0439 10/24/2017 [employer] 3-[address]: 214751859 CPT-4: G0436 02/04/2017 ADMIN INFLUENZA VIRUS VAC CPT-4: G0008 02/04/2017 FLU VAC NO PRSV 4 ROSETTE 3 YRS+ CPT-4: 06222 02/04/2017 PPPS, SUBSEQ VISIT CPT -4: G0439 10/18/2016 [employer] 3-[address]: 107515878 CPT-4: G0436 10/03/2016 [employer]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 3-[address]: 493435842 CPT-4: G0436 07/02/2016 [employer]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 3-[address]: 018074928 CPT-4: G0436 04/04/2016 [employer]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 3-[address]: 639838818 CPT-4: G0436 01/04/2016 ADMIN INFLUENZA VIRUS VAC CPT-4: G0008 01/04/2016 ADMIN PNEUMOCOCCAL VACCINE SNOMED CT: 06105744 CPT-4: G0009 01/04/2016 PNEUMOCOCCAL VACC [address]: 72344825 CPT-4: 03667 01/04/2016 FLU VACC 4 ROSETTE 3 Y[address] PLUS IM SNOMED CT: 48523217 CPT-4: 26195 01/04/2016 [employer] DR[employer] 3-[address]: 316701501 CPT-4: G0436 10/04/2015 [employer]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 3-[address]: 223858073 CPT-4: G0436 08/30/2015 [employer]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 3-[address]: 252560643 CPT-4: G0436 08/02/2015 ADMIN INFLUENZA VIRUS VAC CPT-4: G0008 01/05/2015 FLU VACC 4 ROSETTE 3 YRS PLUS IM Formatting Model/CDA Sections, Assigned to SNOMED CT: 63020394 CPT-4: 01377Gxmchpz 01/05/2015 Vital Signs Date Vital 12/04/2017 Blood Pressure 1: 142/70 Code : 8480-6 BMI: 28.2 Code : 12401-6 Heart Rate 1 : 103 bpm Height: 6' SpO2: 94% Weight: 208 lbs 10/24/2017 Height: Weight: 08/28/2017 Blood Pressure 1: 130/72 Code : 8480-6 BMI: 28.3 Code : 84177-4 Heart Rate 1 : 60 bpm Height: 6' SpO2: 96% Weight: 209 lbs 07/31/2017 Blood Pressure 1: 126/64 Code : 8480-6 BMI: 29.7 Code : 62407-9 Heart Rate 1 : 59 bpm Height: 6' SpO2: 95% Weight: 219 lbs 06/04/2017 Blood Pressure 1: 134/86 Code : 8480-6 BMI: 28.6 Code : 38501-2 Heart Rate 1 : 91 bpm Height: 6' SpO2: 97% Weight: 211 lbs 02/04/2017 Blood Pressure 1: 128/74 Code : 8480-6 BMI: 28.3 Code : 76098-7 Heart Rate 1 : 63 bpm Height: 6' SpO2: 96% Weight: 209 lbs 10/18/2016 BMI: 27.7 Code: 22688-6 Height: 6' Weight: 204 lbs 10/03/2016 Blood Pressure 1: 118/70 Code : 8480-6 BMI: 27.7 Code : 43167-1 Heart Rate 1 : 58 bpm Height: 6' SpO2: 95% Weight: 204 lbs 07/02/2016 Blood Pressure 1: 104/64 Code : 8480-6 BMI: 28.5 Code : 19458-1 Heart Rate 1 : 63 bpm Height: 6' SpO2: 98% Weight: 210 lbs 04/04/2016 Blood Pressure 1: 116/62 Code : 8480-6 BMI: 29.9 Code : 95873-8 Heart Rate 1 : 59 bpm Height: 6' SpO2: 98% Weight: 220 lbs 8 oz 01/04/2016 Blood Pressure 1: 136/78 Code : 8480-6 BMI: 29.6 Code : 85429-0 Heart Rate 1 : 55 bpm Height: 6' SpO2: 97% Weight: 218 lbs 10/04/2015 Blood Pressure 1: 130/80 Code : 8480-6 BMI: 29.3 Code : 38019-7 Heart Rate 1 : 69 bpm Height: 6' SpO2: 97% Weight: 216 lbs 08/30/2015 Blood Pressure 1: 112/64 Code : 8480-6 BMI: 30.4 Code : 37944-7 Heart Rate 1 : 68 bpm Height: 6' SpO2: 95% Weight: 224 lbs 8 oz 08/02/2015 Blood Pressure 1: 120/70 Code : 8480-6 BMI: 30.1 Code : 82245-2 Heart Rate 1 : 55 bpm Height: 6' SpO2: 97% Weight: 222 lbs 04/21/2015 Blood Pressure 1: 160/86 Code : 8480-6 Blood Pressure 1: 138/82 Code: 8480-6 BMI: 30.9 Code: 36807-4 Heart Rate 1: 96 bpm Height: 6' SpO2: 96% Weight: 228 lbs 03/21/2015 Blood Pressure 1: 124/82 Code : 8480-6 BMI: 30.0 Code : 23298-5 Heart Rate 1 : 78 bpm Height: 6' SpO2: 98% Weight: 221 lbs 01/05/2015 Blood Pressure 1: 138/78 Code : 8480-6 BMI: 29.3 Code : 31209-5 Heart Rate 1 : 61 bpm Height: 6' SpO2: 98% Weight: 216 lbs 10/06/2014 Blood Pressure 1: 130/78 Code : 8480-6 BMI: 29.3 Code : 94468-5 Heart Rate 1 : 71 bpm Height: [...] back pain, takes hydrocodone prescribed by the [place] back [place] Location lumbar spine 08/30/2015 None [...] back pain, takes hydrocodone prescribed by the [place] back [facility] Location lumbar spine 08/02/2015 None [...] pain, takes hydrocodone initially prescribed by the [place] back [facility] Location lumbar spine 04/21/2015 None [...] data Encounters Encounter Performer Location Codes Date ([id number]) 16063 EST. PATIENT, LEVEL IV Diagnosis: Essential (primary) hypertension[ICD10: I10] Diagnosis: Atrophy of thyroid (acquired)[ICD10: E03.4] Diagnosis: Pain in left knee[ICD10: M25.562] Diagnosis: Pain in right knee[ICD10: M25.561] Diagnosis: Mixed hyperlipidemia[ICD10: E78.2] Pepper Baeza MD, [facility] CPT-4: 94343 12/04/2017 ([id number]) 63282 EST. PATIENT, LEVEL IV Diagnosis: Essential (primary) hypertension[ICD10: I10] Diagnosis: Pain in left knee[ICD10: M25.562] Diagnosis: Pain in right knee[ICD10: M25.561] Diagnosis: Pain in right hip[ICD10: M25.551] Pepper Baeza MD, [facility] CPT-4: 25597 08/28/2017 ([id number]) 56823 EST. PATIENT, LEVEL IV Diagnosis: Chronic pain syndrome[ICD10: G89.4] Diagnosis: Tobacco use[ICD10: Z72.0] Diagnosis: Localized enlarged lymph nodes[ICD10: R59.0] Pepper Baeza MD, [facility] CPT-4: 20017 07/31/2017 ([id number]) 49899 EST. PATIENT, LEVEL IV Diagnosis: Essential (primary) hypertension[ICD10: I10] Diagnosis: Chronic pain syndrome[ICD10: G89.4] Diagnosis: Atrophy of thyroid (acquired)[ICD10: E03.4] Diagnosis: Tobacco use[ICD10: Z72.0] Pepper Baeza MD, [facility] CPT-4: 47652 06/04/2017 ([id number]) 58354 EST. PATIENT, LEVEL IV Diagnosis: Essential (primary) hypertension[ICD10: I10] Diagnosis: Low back pain[ICD10: M54.5] Diagnosis: Iliotibial band syndrome, right leg[ICD10: M76.31] Diagnosis: Chronic pain syndrome[ICD10: G89.4] Diagnosis: Encounter for immunization[ICD10: Z23] Pepper Baeza MD, [facility] CPT-4: 62810 02/04/2017 ([id number]) 89001 EST. PATIENT, LEVEL IV Diagnosis: Essential (primary) hypertension[ICD10: I10] Diagnosis: Chronic pain syndrome[ICD10: G89.4] Diagnosis: Low back pain[ICD10: M54.5] Diagnosis: Pain in right knee[ICD10: M25.561] Diagnosis: Pain in left knee[ICD10: M25.562] Pepper Baeza MD, [facility] CPT-4: 18911 10/03/2016 ([id number]) 15503 EST. PATIENT, LEVEL IV Diagnosis: Essential (primary) hypertension[ICD10: I10] Diagnosis: Mixed hyperlipidemia[ICD10: E78.2] Diagnosis: Chronic pain syndrome[ICD10: G89.4] Diagnosis: Atrophy of thyroid (acquired)[ICD10: E03.4] Pepper Baeza MD, [facility] CPT-4: 44511 07/02/2016 ([id number]) 87962 EST. PATIENT, LEVEL IV Diagnosis: Essential (primary) hypertension[ICD10: I10] Diagnosis: Tobacco use[ICD10: Z72.0] Diagnosis: Chronic pain syndrome[ICD10: G89.4] Pepper Baeza MD, [facility] CPT-4: 81436 04/04/2016 ([id number]) 27178 EST. PATIENT, LEVEL IV Diagnosis: Encounter for immunization[ICD10: Z23] Diagnosis: Essential (primary) hypertension[ICD10: I10] Diagnosis: Chronic pain syndrome[ICD10: G89.4] Diagnosis: Tobacco use[ICD10: Z72.0] Diagnosis: Mixed hyperlipidemia[ICD10: E78.2] Diagnosis: Gastro-esophageal reflux disease without esophagitis[ICD10: K21.9] Pepper Baeza MD, [facility] CPT-4: 71920 01/04/2016 [id number]) [id number] EST. PATIENT, LEVEL IV Diagnosis: Essential (primary) hypertension[ICD10: I10] Diagnosis: Chronic pain syndrome[ICD10: G89.4] Diagnosis: Tobacco use[ICD10: Z72.0] Pepper Baeza MD, [facility] CPT-4: 06596 10/04/2015 [id number]) 96517 EST. PATIENT, LEVEL III Diagnosis: Chronic pain syndrome[ICD10: G89.4] Diagnosis: Low back pain[ICD10: M54.5] Diagnosis: Tobacco use[ICD10: Z72.0] Diagnosis: Mixed hyperlipidemia[ICD10: E78.2] Pepper Baeza MD, [facility] CPT-4: 91552 08/30/2015 ([id number]) 36080 EST. PATIENT, LEVEL IV Diagnosis: Essential (primary) hypertension[ICD10: I10] Diagnosis: Low back pain[ICD10: M54.5] Diagnosis: Chronic pain syndrome[ICD10: G89.4] Pepper Baeza MD [facility] CPT-4: 52894 08/02/2015 ([id number]) 52138 EST. PATIENT, LEVEL III Diagnosis: Essential (primary) hypertension[ICD10: I10] Diagnosis: Low back pain[ICD10: M54.5] Elaine Baeza MD, [facility] CPT-4: 41289 04/21/2015 ([id number]) 54799 EST. PATIENT, LEVEL IV Diagnosis: Epigastric pain[ICD10: R10.13] Diagnosis: Essential (primary) hypertension[ICD10: I10] Diagnosis: Gastro-esophageal reflux disease without esophagitis[ICD10: K21.9] Pepper Baeza MD [facility] CPT-4: 52928 03/21/2015 ([id number]) 25322 EST. PATIENT, LEVEL III Diagnosis: ESSENTIAL HYPERTENSION[ICD9: 401.9] Diagnosis: SCIATICA[ICD9: 724.3] Pepper Baeza MD, [facility] CPT-4: 40520 01/05/2015 ([id number]) OFFICE VISIT, NEW - LEVEL 4 Diagnosis: ESSENTIAL HYPERTENSION[ICD9: 401.9] Diagnosis: HYPOTHYROIDISM[ICD9: 244.9] Diagnosis: ESOPHAGEAL REFLUX[ICD9: 530.81] Pepper Baeza MD, [facility] CPT- 4: 02535 10/06/2014 Plan of Care Planned Activity Notes [...] of over-medication. 12/04/2017 Appointment: Pepper Baeza WPtel: [address] [place], [place] [id number] (15 min) Moderate 12/04/2017 Patient Education: Patient [...] care surrogate. 10/24/2017 Appointment: Parul Collier WPtel: [phone] [phone] [facility] - Annual Wellness Visit 10/24/2017 Patient Education: Patient Medication Summary Completed 10/24/2017 Appointment: Pepper Baeza WPtel: [phone] [facility] (15 min) Moderate 09/09/2017 Visit Plan: Hypertension [...] anterior hip/thigh 08/28/2017 Appointment: Pepper Baeza WPtel: [phone] [facility] (15 min) Moderate 08/28/2017 Patient Education: Patient Medication Summary Completed 08/28/2017 Care Plan: X-RAY EXAM OF HIP LOINC : 41100-8 Pending 08/28/2017 Visit Plan: Hypertension - well [...] hydrocodone to #180 pills. 07/31/2017 [facility]ment: [phone] [place] (15 min) Moderate 07/31/2017 Patient Education: Patient Medication Summary Completed 07/31/2017 Care Plan: CT THORAX W/O D[facility] : 49542-1 Pending 07/31/2017 Visit Plan: Hypertension - well [...] tomorrow. 06/04/2017 App[facility]ment: [facility]el[phone] (30 min) Complex 06/04/2017 Patient Education: Patient [...] today 02/04/2017 Appointment: [facility]el[phone] ([facility] min) Complex 02/04/2017 Patient Education: Patient [...] care surrogate. 10/18/2016 Appointment: Parul Collier WPtel: [phone] [id number] [facility] - Annual Wellness Visit 10/18/2016 Patient Education: Patient Medication Summary Completed 10/18/2016 Patient Education: Smoking and Tobacco Addiction Completed 10/18/2016 Visit Plan: Low back pain - and knee pain - recommended a referal to [facility] physical therapy for strengthening, knee [...] need stenting. 10/03/2016 Appointment: [facility]el[facility] [phone] [facility] (30 min) [facility] 10/03/2016 Patient Education: Patient Medication Summary Completed [...] this time. 07/02/2016 Appointment: Pepper Baeza WPtel: [phone] [id number] (30 min) Complex 07/02/2016 Patient Education: Patient [...] smoking. 04/04/2016 Appointment: Pepper Baeza WPtel: [phone] [facility] (30 min) Complex 04/04/2016 Patient Education: Patient [...] symptoms are not improving. 01/04/2016 Appointment: Pepper Baezatel: [phone] [facility] (15 min) Moderate 01/04/2016 Patient Education: Patient [...] of over-medication. 10/04/2015 Appointment: [facility]ae[facility]el[phone] (15 min) Moderate 10/04/2015 Patient Education: Patient [...] stopping smoking. 08/02/2015 Appointment: Pepper Baeza WPtel: [facility] (15 min) Moderate 08/02/2015 Patient Education: Patient [...] patient. 10/06/2014 Appointment: [facility] Baeza [facility]Ptel[phone] [facility] [place] New Patient 10/06/2014 Patient Education: Patient Medication Summary Completed 10/06/2014 Patient Education: Hypertension Completed 10/06/2014 Instructions Comment get labs one week before your next appt . Low back pain - and knee pain - recommended a referal to [facility] physical therapy for strengthening, knee [...] if the symptoms are not improving. Carlos Pennsaid . Hypertension - well controlled - [...] Carlos luong pennsaid. Recommend referral to Dr Archuleta
--- OUTSIDE RECORDS SUMMARY | 2018-02-13 11:59 | XMS REPORT | CCD ---
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 Name Role Phone PP Unavailable CCM Unavailable Summary Purpose Interface Exchange Insurance Providers Payer name Policy type / Coverage type Covered alliance party ID Effective Begin Date Effective End Date WPS Medicare Part B Medicare Part B [id number] Unknown [facility] Medicare Part B [id number] Unknown Family history Mother Diagnosis Age At Onset Heart Attack Unknown Arthritis Unknown Dementia Unknown Grandfather Diagnosis Age At Onset Leukemia Unknown Father Diagnosis Age At Onset Hypertension Unknown Arthritis Unknown Heart Attack Unknown Social History Social History Element Codes Description Effective Dates Marital status Unknown Zoe 10/04/2015 Number of children Unknown 3 10/06/2014 Employment Unknown Retired 10/06/[address]: 92355372 Current every day smoker 10/06/2014 Number of [...] hydrocodone 10 mg-acetaminophen 325 mg tablet RxNorm: 919889 1-2 Tablet(s) PO Q4 PRN as needed for pain 11/28/20172017 Active hydrocodone 10 mg-acetaminophen 325 mg tablet RxNorm: 882268 1-2 Tablet(s) PO Q4 PRN as needed for pain 10/24/20172017 Inactive hydrocodone 10 mg-acetaminophen 325 mg tablet RxNorm: 893336 1-2 Tablet(s) PO Q4 PRN as needed for pain 09/26/20172017 Inactive doxazosin 4 mg tablet RxNorm: 842966 1 TABLET(S) PO DAILY 201708/19/2018 Active allopurinol 100 mg tablet RxNorm: 350391 3 TABLET(S) PO DAILY - 2 IN THE AM AND 1 AT HS 08/04/2017 04/30/2018 Active hydrocodone 10 mg-acetaminophen 325 mg tablet RxNorm: 898001 1-2 Tablet(s) PO Q4 PRN as needed for pain 07/31/20172017 Inactive Hysingla ER 120 mg tablet, crush resistant, extended release RxNorm: 2576436 1 Tablet(s) PO daily 07/31/20172017 Inactive hydrocodone 10 mg-acetaminophen 325 mg tablet RxNorm: 593520 1-2 Tablet(s) PO Q4 PRN as needed for pain 07/03/20172017 Inactive Lipitor 40 mg tablet RxNorm: 996302 1 Tablet(s) PO daily 201705/29/2018 Active hydrocodone 10 mg-acetaminophen 325 mg tablet RxNorm: 094494 1-2 Tablet(s) PO Q4 PRN as needed for pain 06/04/20172017 Inactive Zithromax Z-Elmer 250 mg tablet RxNorm: 543327 1 Tablet(s) PO UD 05/30/2017 No Stop Date Active Tessalon 200 mg capsule RxNorm: 098961 1 Capsule(s) PO TID as needed cough 05/30/2017 06/03/2017 Inactive Tessalon 200 mg capsule RxNorm: 920579 1 Capsule(s) PO TID as needed cough 05/30/2017 05/29/2017 Inactive levothyroxine 50 mcg tablet RxNorm: 470054 1 TABLET(S) PO DAILY 05/05/2017 01/29/2018 Active metoprolol succinate ER 25 mg tablet,extended release 24 hr RxNorm: 312588 1 TABLET(S) PO DAILY 04/08/2017 01/02/2018 Active hydrocodone 10 mg-acetaminophen 325 mg tablet RxNorm: 616102 1-2 Tablet(s) PO Q4 PRN as needed for pain 04/04/20172017 Inactive hydrocodone 10 mg-acetaminophen 325 mg tablet RxNorm: 595084 1-2 Tablet(s) PO Q4 PRN as needed for pain 03/03/20172016 Inactive hydrocodone 10 mg-acetaminophen 325 mg tablet RxNorm: 762856 1-2 Tablet(s) PO Q4 PRN as needed for pain 01/30/20172016 Inactive hydrocodone 10 mg-acetaminophen 325 mg tablet RxNorm: 900140 1-2 Tablet(s) PO Q4 PRN as needed for pain 01/01/20172016 Inactive hydrocodone 10 mg-acetaminophen 325 mg tablet RxNorm: 423637 1-2 Tablet(s) PO Q4 PRN as needed for pain 12/02/20162016 Inactive hydrocodone 10 mg-acetaminophen 325 mg tablet RxNorm: 517032 1-2 Tablet(s) PO Q4 PRN as needed for pain 10/31/20162016 Inactive hydrocodone 10 mg-acetaminophen 325 mg tablet RxNorm: 981608 1-2 Tablet(s) PO Q4 PRN as needed for pain 10/03/20162016 Inactive pantoprazole 40 mg tablet,delayed release RxNorm: 915383 1 Tablet(s) PO daily 09/02/2016 12/03/2017 Inactive hydrocodone 10 mg-acetaminophen 325 mg tablet RxNorm: 919537 1-2 Tablet(s) PO Q4 PRN as needed for pain 08/30/20162016 Inactive pantoprazole 40 mg tablet,delayed release RxNorm: 708826 1 Tablet(s) PO daily 08/19/2016 09/01/2016 Inactive doxazosin 4 mg tablet RxNorm: 130749 1 TABLET(S) PO DAILY 201608/06/2017 Inactive levothyroxine 50 mcg tablet RxNorm: 201837 1 TABLET(S) PO DAILY 08/12/2016 05/04/2017 Inactive metoprolol succinate ER 25 mg tablet,extended release 24 hr RxNorm: 426284 1 TABLET(S) PO DAILY 07/08/2016 04/03/2017 Inactive hydrocodone 10 mg-acetaminophen 325 mg tablet RxNorm: 670358 1-2 Tablet(s) PO Q4 PRN as needed for pain 07/02/20162016 Inactive hydrocodone 10 mg-acetaminophen 325 mg tablet RxNorm: 313753 1-2 Tablet(s) PO Q4 PRN as needed for pain 06/05/20162016 Inactive hydrocodone 10 mg-acetaminophen 325 mg tablet RxNorm: 325247 1-2 Tablet(s) PO Q4 PRN as needed for pain 05/06/20162016 Inactive hydrocodone 10 mg-acetaminophen 325 mg tablet RxNorm: 088896 1-2 Tablet(s) PO Q4 PRN as needed for pain 05/06/20162016 Inactive allopurinol 100 mg tablet RxNorm: 812978 3 Tablet(s) PO daily - 2 in the AM and 1 at HS 05/06/2016 04/30/2017 Inactive hydrocodone 10 mg-acetaminophen 325 mg tablet RxNorm: 498829 1-2 Tablet(s) PO Q4 PRN as needed for pain 03/04/20162016 Inactive hydrocodone 10 mg-acetaminophen 325 mg tablet RxNorm: 521666 1-2 Tablet(s) PO Q4 PRN as needed for pain 02/01/20162015 Inactive omeprazole 20 mg capsule,delayed release RxNorm: 954481 1 Capsule(s) PO BID 01/04/2016 07/01/2016 Inactive atorvastatin 40 mg tablet RxNorm: 997923 1 Tablet(s) PO daily 01/04/2016 06/03/2017 Inactive lisinopril 10 mg tablet RxNorm: 837934 1 Tablet(s) PO daily 05/05/2017 Inactive meloxicam 15 mg tablet RxNorm: 204805 TAKE 1 TABLET BY MOUTH EVERY DAY 10/17/2015 07/01/2016 Inactive levothyroxine 50 mcg tablet RxNorm: 568092 1 TABLET(S) PO DAILY 10/17/2015 07/12/2016 Inactive hydrocodone 10 mg-acetaminophen 325 mg tablet RxNorm: 527701 1-2 Tablet(s) PO Q4 PRN as needed for pain 10/10/20152015 Inactive Lipitor 40 mg tablet RxNorm: 385554 1 Tablet(s) PO daily 201501/03/2016 Inactive MS Contin 60 mg tablet,extended release RxNorm: 491193 1 Tablet(s) PO BID 08/30/2015 10/03/2015 Inactive hydrocodone 10 mg-acetaminophen 325 mg tablet RxNorm: 621340 1-2 Tablet(s) PO Q4 PRN as needed for pain 08/30/20152015 Inactive doxazosin 4 mg tablet RxNorm: 617565 1 Tablet(s) PO daily 201507/26/2016 Inactive OxyContin 20 mg tablet,crush resistant,extended release RxNorm: 3875930 1 Tablet(s ) PO BID 08/02/2015 08/29/2015 Inactive meloxicam 15 mg tablet RxNorm: 185610 TAKE 1 TABLET BY MOUTH EVERY DAY 07/25/2015 10/16/2015 Inactive hydrocodone 10 mg-acetaminophen 325 mg tablet RxNorm: 466987 1 Tablet(s) PO Q4 PRN as needed for pain 07/13/20152015 Inactive levothyroxine 50 mcg tablet RxNorm: 665115 1 Tablet(s) PO daily 07/13/2015 10/10/2015 Inactive metoprolol succinate ER 25 mg tablet,extended release 24 hr RxNorm: 627800 1 Tablet(s) PO daily 06/30/2015 06/23/2016 Inactive hydrocodone 10 mg-acetaminophen 325 mg tablet RxNorm: 756126 1 Tablet(s) PO Q4 PRN as needed for pain 04/21/20152015 Inactive hydrocodone 10 mg-acetaminophen 325 mg tablet RxNorm: 067097 1 Tablet(s) PO Q4 PRN as needed for pain 03/30/20152015 Inactive allopurinol 100 mg tablet RxNorm: 356858 3 Tablet(s) PO 2 at am 1 at hs UD 02/08/2015 02/02/2016 Inactive hydrocodone 10 mg-acetaminophen 325 mg tablet RxNorm: 113771 1 Tablet(s) PO Q4 PRN 01/25/2015 03/29/2015 Inactive omeprazole 20 mg capsule,delayed release RxNorm: 572290 1 Capsule(s) PO BID 1at am 1at pm 01/05/2015 12/30/2015 Inactive hydrocodone 10 mg-acetaminophen 325 mg tablet RxNorm: 838548 1 Tablet(s) PO Q4 PRN 01/05/2015 01/24/2015 Inactive Voltaren 1 % topical gel RxNorm: 292022 4 Gram(s) TOP QID 10/0612/04/2014 Inactive Multivitamin & Mineral Formula oral RxNorm: oral No Start Date Active potassium 99 mg tablet RxNorm: 1 Tablet(s) PO daily No Start Date Active B barsxqr-N-zyjrpch tablet RxNorm: 1 Tablet(s) PO daily No Start Date Active clopidogrel 75 mg tablet RxNorm: 781550 1 Tablet(s) PO daily No Start Date Active magnesium oxide 400 mg tablet RxNorm: 023469 1 Tablet(s) PO daily No Start Date Active aspirin 81 mg tablet RxNorm: 100263 1 Tablet(s) PO daily No Start Date Active omega 3 183.3 mg-dha 75 mg-epa 91.6 mg-fish oil 306 mg capsule RxNorm: 1 Capsule(s) PO daily No Start Date Active Calcium + D 600 mg (1,500)-200 unit tablet RxNorm: 631475 1 Tablet(s) PO daily No Start Date Active omeprazole 20 mg capsule,delayed release RxNorm: 142364 1 Capsule(s) PO daily No Start Date Active Ranexa 500 mg tablet,extended release RxNorm: 503313 1 Tablet(s) PO BID No Start Date Active allopurinol 100 mg tablet RxNorm: 602444 Tablet(s) PO 2 at am 1 at hs No Start Date 02/07/2015 Inactive Zithromax Z-Elmer 250 mg tablet RxNorm: 744337 1 Tablet(s) PO UD No Start Date 05/29/2017 Inactive pantoprazole 40 mg tablet,delayed release RxNorm: 520493 1 Tablet(s) PO daily No Start Date 08/18/2016 Inactive meloxicam 15 mg tablet RxNorm: 410847 1 Tablet(s) PO daily No Start Date 07/24/2015 Inactive doxazosin 4 mg tablet RxNorm: 384194 1 Tablet(s) PO daily No Start Date 08/01/2015 Inactive hydrocodone 7.5 mg-acetaminophen 325 mg tablet RxNorm: 721409 1 Tablet(s) PO QID as needed for pain No Start Date 2014 Inactive Vitamin D3 5,000 unit tablet RxNorm: 448259 1 Tablet(s) PO daily No Start Date 07/01/2016 Inactive B-12 Plus 1,000 mcg/mL injection solution RxNorm: 111723 1 Milliliter(s) Inj daily No Start Date 07/01/2016 Inactive magnesium citrate RxNorm: 6574 miscellaneous No Start Date 07/02/2016 Inactive Lipitor 20 mg tablet RxNorm: 790177 1 Tablet(s) PO daily No Start Date 08/29/2015 Inactive metoprolol succinate ER 25 mg tablet,extended release 24 hr RxNorm: 166536 1 Tablet(s) PO daily No Start Date 2015 Inactive lisinopril 10 mg tablet RxNorm: 910010 1 Tablet(s) PO daily No Start Date 01/03/2016 Inactive levothyroxine 50 mcg tablet RxNorm: 223041 1 Tablet(s) PO daily No Start Date 07/12/2015 Inactive omeprazole 20 mg capsule,delayed release RxNorm: 147884 Capsule(s) PO daily 1at am 1at pm [...] Item Item Code Result Date Free T4 Ewi593 FREE T4 0.87 ng/dL 12/04/2017 Tsh Ord6 TSH (3rd IS) 3.04 uIU/mL 12/04/2017 Lipid Ord30 CHOL 164 mg/dL 03/17/2017 Lipid Ord30 HDL 43.0 mg/dl 03/17/2017 Lipid Ord30 TRIG 144 mg/dL 03/17/2017 Lipid Ord30 LDL 92 mg/dL 03/17/2017 Lipid Ord30 C/HDL 3.8 Ratio 03/17/2017 Hepatic Beg808 ALBUMIN 4.4 g/dL 03/17/2017 Hepatic Thu558 TPRO 7.3 g/dL 03/17/2017 Hepatic Dnv023 GLOB 2.9 g/dL 03/17/2017 Hepatic Gui345 A/G Ratio 1.5 Ratio 03/17/2017 Hepatic Nhe640 ALK PHOS 125 U/L 03/17/2017 Hepatic Hfz172 ALT(SGPT) 15 U/L 03/17/2017 Hepatic Srh632 AST(SGOT) 22 U/L 03/17/2017 Hepatic Cbp692 BILI T 0.7 mg/dL 03/17/2017 Hepatic Gup869 BILI D 0.1 mg/dL 03/17/2017 Hepatic Boq954 BILI I 0.6 mg/dL 03/17/2017 Tsh Ord6 hTSH II 2.89 uIU/mL 01/13/2017 Comp Metabolic Noh180 NA 139 mEq/L 01/13/2017 Comp Metabolic Nay671 K 4.4 mEq/L 01/13/2017 Comp Metabolic Zjn406 CL 105 mEq/L 01/13/2017 Comp Metabolic Yyw054 CO2 29.0 mEq/L 01/13/2017 Comp Metabolic Zfy221 ANION GAP 9 01/13/2017 Comp Metabolic Qtd399 GLUCOSE 105 mg/dL 01/13/2017 Comp Metabolic Hlw372 Creat 1.1 mg/dL 01/13/2017 Comp Metabolic Rhb181 eGFR 68 ml/min/1.73m2 01/13/2017 Comp Metabolic Fka255 BUN 12 mg/dL 01/13/2017 Comp Metabolic Wjo263 B/C Ratio 10.7 Ratio 01/13/2017 Comp Metabolic Vwo932 CALCIUM 9.2 mg/dL 01/13/2017 Comp Metabolic Jst086 ALK PHOS 90 U/L 01/13/2017 Comp Metabolic Rkb689 AST(SGOT) 18 U/L 01/13/2017 Comp Metabolic Gow181 ALT(SGPT) 12 U/L 01/13/2017 Comp Metabolic Fdd441 BILI T 0.5 mg/dL 01/13/2017 Comp Metabolic Ars629 ALBUMIN 4.1 g/dL 01/13/2017 Comp Metabolic Are815 TPRO 6.4 g/dL 01/13/2017 Comp Metabolic Czj976 GLOB 2.3 g/dL 01/13/2017 Comp Metabolic Qqa783 A/G Ratio 1.8 Ratio 01/13/2017 Comp Metabolic Bxs125 Osmo 278 mOsmo 01/13/2017 Lipid Ord30 CHOL [...] 35.6 pg 01/13/2017 Cbc With Differential Ord2 [place]% 10.5 % 01/13/2017 Cbc With Differential Ord2 [...] 1.30 K/ul 01/13/2017 Cbc With Differential Ord2 [place] ABS# 0.7 K/ul 01/13/2017 Cbc With Differential Ord2 Eos ABS# 0.2 K/ul 01/13/2017 Cbc With Differential Ord2 Baso ABS# 0.0 K/ul 01/13/2017 Total Psa Ord10 PSA 0.02 ng/mL 01/13/2017 Vitamin D 25 Oh Vic5453 VITAMIN D, 25 HYDROXY 65.24 ng/mL Tsh Ord6 hTSH II 1.32 uIU/mL 10/20/2014 Comp Metabolic Iga822 NA 138 mEq/L 10/20/2014 Comp Metabolic Yhp104 K 4.4 mEq/L 10/20/2014 Comp Metabolic Irc888 CL 106 mEq/L 10/20/2014 Comp Metabolic Wmd314 CO2 28.0 mEq/L 10/20/2014 Comp Metabolic Hqa590 ANION GAP 8 10/20/2014 Comp Metabolic Upm100 GLUCOSE 98 mg/dL 10/20/2014 Comp Metabolic Kvm908 Creat 1.0 mg/dL 10/20/2014 Comp Metabolic Ohn594 eGFR 74 ml/min/1.73m2 10/20/2014 Comp Metabolic Bvs615 BUN 14 mg/dL 10/20/2014 Comp Metabolic Gkd855 B/C Ratio 13.5 Ratio 10/20/2014 Comp Metabolic Yec416 CALCIUM 9.4 mg/dL 10/20/2014 Comp Metabolic May202 ALK PHOS 125 U/L 10/20/2014 Comp Metabolic Kzf500 AST(SGOT) 22 U/L 10/20/2014 Comp Metabolic Hkj114 ALT(SGPT) 20 U/L 10/20/2014 Comp Metabolic Yuu235 BILI T 0.5 mg/dL 10/20/2014 Comp Metabolic Sqr787 ALBUMIN 4.4 g/dL 10/20/2014 Comp Metabolic Mnf906 TPRO 6.7 g/dL 10/20/2014 Comp Metabolic Sfd272 GLOB 2.3 g/dL 10/20/2014 Comp Metabolic Hdb923 A/G Ratio 1.9 Ratio 10/20/2014 Comp Metabolic Tpk986 Osmo 276 mOsmo 10/20/2014 Cbc With Differential [...] SUBSEQ VISIT CPT -4: G0439 10/24/2017 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 3-[address]: 746766243 CPT-4: G0436 02/04/2017 ADMIN INFLUENZA VIRUS VAC CPT-4: G0008 02/04/2017 FLU VAC NO PRSV 4 ROSETTE 3 YRS+ CPT-4: 31919 02/04/2017 PPPS, SUBSEQ VISIT CPT -4: G0439 10/18/2016 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 3-[address]: 084460528 CPT-4: G0436 10/03/2016 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 3-[address]: 815[address]995 CPT-4: G0436 07/02/2016 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 3-[address]: 343742983 CPT-4: G0436 04/04/2016 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 3-[address]: 942003526 CPT-4: G0436 01/04/2016 ADMIN INFLUENZA VIRUS VAC CPT-4: G0008 01/04/2016 ADMIN PNEUMOCOCCAL VACCINE SNOMED CT: 83342874 CPT-4: G0009 01/04/2016 PNEUMOCOCCAL VACC [address]: 54182232 CPT-4: 71616 01/04/2016 FLU VACC 4 ROSETTE 3 YRS PLUS IM SNOMED CT: 21720695 CPT-4: 24621 01/04/2016 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 3-[address]: 496289952 CPT-4: G0436 10/04/2015 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 3-[address]: 363469205 CPT-4: G0436 08/30/2015 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 3-[address]: 731449581 CPT-4: G0436 08/02/2015 ADMIN INFLUENZA VIRUS VAC CPT-4: G0008 01/05/2015 FLU VACC 4 ROSETTE 3 YRS PLUS IM Formatting Model/CDA Sections, Assigned to SNOMED CT: 97064861 CPT-4: 80447Bxphxyo 01/05/2015 Vital Signs Date Vital 12/04/2017 Blood Pressure 1: 142/70 Code : 8480-6 BMI: 28.2 Code : 44559-6 Heart Rate 1 : 103 bpm Height: 6' SpO2: 94% Weight: 208 lbs 10/24/2017 Height: Weight: 08/28/2017 Blood Pressure 1: 130/72 Code : 8480-6 BMI: 28.3 Code : 72169-5 Heart Rate 1 : 60 bpm Height: 6' SpO2: 96% Weight: 209 lbs 07/31/2017 Blood Pressure 1: 126/64 Code : 8480-6 BMI: 29.7 Code : 60470-4 Heart Rate 1 : 59 bpm Height: 6' SpO2: 95% Weight: 219 lbs 06/04/2017 Blood Pressure 1: 134/86 Code : 8480-6 BMI: 28.6 Code : 54264-1 Heart Rate 1 : 91 bpm Height: 6' SpO2: 97% Weight: 211 lbs 02/04/2017 Blood Pressure 1: 128/74 Code : 8480-6 BMI: 28.3 Code : 04830-5 Heart Rate 1 : 63 bpm Height: 6' SpO2: 96% Weight: 209 lbs 10/18/2016 BMI: 27.7 Code: 75941-8 Height: 6' Weight: 204 lbs 10/03/2016 Blood Pressure 1: 118/70 Code : 8480-6 BMI: 27.7 Code : 83823-9 Heart Rate 1 : 58 bpm Height: 6' SpO2: 95% Weight: 204 lbs 07/02/2016 Blood Pressure 1: 104/64 Code : 8480-6 BMI: 28.5 Code : 32644-4 Heart Rate 1 : 63 bpm Height: 6' SpO2: 98% Weight: 210 lbs 04/04/2016 Blood Pressure 1: 116/62 Code : 8480-6 BMI: 29.9 Code : 13373-3 Heart Rate 1 : 59 bpm Height: 6' SpO2: 98% Weight: 220 lbs 8 oz 01/04/2016 Blood Pressure 1: 136/78 Code : 8480-6 BMI: 29.6 Code : 13383-0 Heart Rate 1 : 55 bpm Height: 6' SpO2: 97% Weight: 218 lbs 10/04/2015 Blood Pressure 1: 130/80 Code : 8480-6 BMI: 29.3 Code : 72227-7 Heart Rate 1 : 69 bpm Height: 6' SpO2: 97% Weight: 216 lbs 08/30/2015 Blood Pressure 1: 112/64 Code : 8480-6 BMI: 30.4 Code : 52547-0 Heart Rate 1 : 68 bpm Height: 6' SpO2: 95% Weight: 224 lbs 8 oz 08/02/2015 Blood Pressure 1: 120/70 Code : 8480-6 BMI: 30.1 Code : 96802-6 Heart Rate 1 : 55 bpm Height: 6' SpO2: 97% Weight: 222 lbs 04/21/2015 Blood Pressure 1: 160/86 Code : 8480-6 Blood Pressure 1: 138/82 Code: 8480-6 BMI: 30.9 Code: 68666-9 Heart Rate 1: 96 bpm Height: 6' SpO2: 96% Weight: 228 lbs 03/21/2015 Blood Pressure 1: 124/82 Code : 8480-6 BMI: 30.0 Code : 86749-4 Heart Rate 1 : 78 bpm Height: 6' SpO2: 98% Weight: 221 lbs 01/05/2015 Blood Pressure 1: 138/78 Code : 8480-6 BMI: 29.3 Code : 33377-3 Heart Rate 1 : 61 bpm Height: 6' SpO2: 98% Weight: 216 lbs 10/06/2014 Blood Pressure 1: 130/78 Code : 8480-6 BMI: 29.3 Code : 27123-0 Heart Rate 1 : 71 bpm Height: [...] back pain, takes hydrocodone prescribed by the [place] Location lumbar spine 08/30/2015 None [...] back pain, takes hydrocodone prescribed by [place] lumbar spine 08/02/2015 None [...] pain, takes hydrocodone initially prescribed by the [place] lumbar spine 04/21/2015 None [...] data Encounters Encounter Performer Location Codes Date ([id number]) 65787 EST. PATIENT, LEVEL IV Diagnosis: Essential (primary) hypertension[ICD10: I10] Diagnosis: Atrophy of thyroid (acquired)[ICD10: E03.4] Diagnosis: Pain in left knee[ICD10: M25.562] Diagnosis: Pain in right knee[ICD10: M25.561] Diagnosis: Mixed hyperlipidemia[ICD10: E78.2] [facility] CPT-4: 81756 12/04/2017 ([id number]) 82088 EST. PATIENT, LEVEL IV Diagnosis: Essential (primary) hypertension[ICD10: I10] Diagnosis: Pain in left knee[ICD10: M25.562] Diagnosis: Pain in right knee[ICD10: M25.561] Diagnosis: Pain in right hip[ICD10: M25.551] [facility] CPT-4: 44962 08/28/2017 ([id number]) 29837 EST. PATIENT, LEVEL IV Diagnosis: Chronic pain syndrome[ICD10: G89.4] Diagnosis: Tobacco use[ICD10: Z72.0] Diagnosis: Localized enlarged lymph nodes[ICD10: R59.0] [facility] MD, [facility] CPT-4: 79415 07/31/2017 ([id number]) 45659 EST. PATIENT, LEVEL IV Diagnosis: Essential (primary) hypertension[ICD10: I10] Diagnosis: Chronic pain syndrome[ICD10: G89.4] Diagnosis: Atrophy of thyroid (acquired)[ICD10: E03.4] Diagnosis: Tobacco use[ICD10: Z72.0] [facility] MD, [facility] CPT-4: 03946 06/04/2017 ([id number]) 54404 EST. PATIENT, LEVEL IV Diagnosis: Essential (primary) hypertension[ICD10: I10] Diagnosis: Low back pain[ICD10: M54.5] Diagnosis: Iliotibial band syndrome, right leg[ICD10: M76.31] Diagnosis: Chronic pain syndrome[ICD10: G89.4] Diagnosis: Encounter for immunization[ICD10: Z23] Pepper Baeza MD, [facility] CPT-4: 84805 02/04/2017 ([id number]) 76124 EST. PATIENT, LEVEL IV Diagnosis: Essential (primary) hypertension[ICD10: I10] Diagnosis: Chronic pain syndrome[ICD10: G89.4] Diagnosis: Low back pain[ICD10: M54.5] Diagnosis: Pain in right knee[ICD10: M25.561] Diagnosis: Pain in left knee[ICD10: M25.562] Pepper [facility] MD, [facility] CPT-4: 63170 10/03/2016 ([id number]) 14523 EST. PATIENT, LEVEL IV Diagnosis: Essential (primary) hypertension[ICD10: I10] Diagnosis: Mixed hyperlipidemia[ICD10: E78.2] Diagnosis: Chronic pain syndrome[ICD10: G89.4] Diagnosis: Atrophy of thyroid (acquired)[ICD10: E03.4] [facility] CPT-4: 41705 07/02/2016 ([id number]) 76761 EST. PATIENT, LEVEL IV Diagnosis: Essential (primary) hypertension[ICD10: I10] Diagnosis: Tobacco use[ICD10: Z72.0] Diagnosis: Chronic pain syndrome[ICD10: G89.4] [facility] MD, [facility] CPT-4: 88239 04/04/2016 ([id number]) 69690 EST. PATIENT, LEVEL IV Diagnosis: Encounter for immunization[ICD10: Z23] Diagnosis: Essential (primary) hypertension[ICD10: I10] Diagnosis: Chronic pain syndrome[ICD10: G89.4] Diagnosis: Tobacco use[ICD10: Z72.0] Diagnosis: Mixed hyperlipidemia[ICD10: E78.2] Diagnosis: Gastro-esophageal reflux disease without esophagitis[ICD10: K21.9] Pepper [facility]aeza MD, [facility] CPT-4: 29531 01/04/2016 ([id number]) 65519 EST. PATIENT, LEVEL IV Diagnosis: Essential (primary) hypertension[ICD10: I10] Diagnosis: Chronic pain syndrome[ICD10: G89.4] Diagnosis: Tobacco use[ICD10: Z72.0] Pepper Baeza MD, [facility] CPT-4: 37743 10/04/2015 ([id number]) 98339 EST. PATIENT, LEVEL III Diagnosis: Chronic pain syndrome[ICD10: G89.4] Diagnosis: Low back pain[ICD10: M54.5] Diagnosis: Tobacco use[ICD10: Z72.0] Diagnosis: Mixed hyperlipidemia[ICD10: E78.2] Pepper Baeza MD, [facility] CPT-4: 54009 08/30/2015 ([id number]) 05963 EST. PATIENT, LEVEL IV Diagnosis: Essential (primary) hypertension[ICD10: I10] Diagnosis: Low back pain[ICD10: M54.5] Diagnosis: Chronic pain syndrome[ICD10: G89.4] Pepper [facility] MD, [facility] CPT-4: 68393 08/02/2015 ([id number]) 01968 EST. PATIENT, LEVEL III Diagnosis: Essential (primary) hypertension[ICD10: I10] Diagnosis: Low back pain[ICD10: M54.5] Elaine Baeza MD, [facility] CPT-4: 16568 04/21/2015 ([id number]) 81895 EST. PATIENT, LEVEL IV Diagnosis: Epigastric pain[ICD10: R10.13] Diagnosis: Essential (primary) hypertension[ICD10: I10] Diagnosis: Gastro-esophageal reflux disease without esophagitis[ICD10: K21.9] [facility] CPT-4: 69846 03/21/2015 ([id number]) 10566 EST. PATIENT, LEVEL III Diagnosis: ESSENTIAL HYPERTENSION[ICD9: 401.9] Diagnosis: SCIATICA[ICD9: 724.3] [facility] CPT-4: 62397 01/05/2015 ([id number]) OFFICE VISIT, NEW - LEVEL 4 Diagnosis: ESSENTIAL HYPERTENSION[ICD9: 401.9] Diagnosis: HYPOTHYROIDISM[ICD9: 244.9] Diagnosis: ESOPHAGEAL REFLUX[ICD9: 530.81] [facility] CPT- 4: 36538 10/06/2014 Plan of Care Planned Activity Notes [...] and understands the consequences of over-medication. 12/04/2017 Patient Education: Patient Medication Summary Completed [...] surrogate. 10/24/2017 [facility]ment: [facility] [phone] [id number] [facility] - Annual Wellness Visit 10/24/2017 Patient Education: Patient Medication Summary Completed 10/24/2017 [facility]ment: [phone] [id number] (15 min) Moderate 09/09/2017 Visit Plan: Hypertension [...] anterior hip/thigh 08/28/2017 Appointment: Pepper Baeza WPtel: [id number] (15 min) Moderate 08/28/2017 Patient Education: Patient Medication Summary Completed 08/28/2017 Care Plan: X-RAY EXAM OF HIP LOINC : 93211-4 Pending 08/28/2017 Visit Plan: Hypertension - well [...] #180 pills. 07/31/2017 Appointment: Pepper Baeza WPtel: [facility] [place] (15 min) Moderate 07/31/2017 Patient Education: Patient Medication Summary Completed 07/31/2017 Care Plan: CT THORAX W/O DYE LOINC : 22330-6 Pending 07/31/2017 Visit Plan: Hypertension - well [...] Sagastume tomorrow. 06/04/2017 Appointment: Pepper Baeza WPtel: [address] [place], [place] [phone] (30 min) [facility] 06/04/2017 Patient Education: Patient Medication Summary Completed [...] today 02/04/2017 Appointment: Pepper Baeza [facility] [phone] [facility] [id number] (30 min) Complex 02/04/2017 Patient Education: Patient [...] surrogate. 10/18/2016 Appointment: Parul [facility] [phone] [id number] [facility] - Annual Wellness Visit 10/18/2016 Patient Education: Patient Medication Summary Completed 10/18/2016 Patient Education: Smoking and Tobacco Addiction Completed 10/18/2016 Visit Plan: Low back pain - and knee pain - recommended a referal to [facility] for strengthening, knee pain, back [...] Baeza WPtel: [phone] [id number] (30 min) Complex 10/03/2016 Patient Education: Patient [...] time. 07/02/2016 Appointment: Pepper Baeza [facility]el[phone] [id number] ([place]) Complex 07/02/2016 Patient Education: Patient [...] stopping smoking. 04/04/2016 Appointment: Pepper Baeza WPtel: [phone] [id number] (30 min) Complex 04/04/2016 Patient Education: Patient [...] not improving. 01/04/2016 Appointment: Pepper Baeza WPtel: [address] [place], [place] [id number] (15 min) Moderate 01/04/2016 Patient Education: Patient [...] of over-medication. 10/04/2015 Appointment: Pepper Baeza WPtel: [address] [place], [place] [id number] [place] (15 min) Moderate 10/04/2015 Patient Education: Patient [...] stopping smoking. 08/02/2015 Appointment: Pepper Baeza WPtel: [facility] [id number] [place] (15 min) Moderate 08/02/2015 Patient Education: Patient [...] patient. 10/06/2014 Appointment: Pepper Baeza WPtel: [address] [facility] [id number] [place] ([place]) New Patient 10/06/2014 Patient Education: Patient Medication Summary Completed 10/06/2014 Patient Education: Hypertension Completed 10/06/2014 Instructions Comment get labs one week before your next appt . Low back pain - and knee pain - recommended a referal to [facility] physical therapy for strengthening, [...] do not improve or if they worsen. Leeannaaid. Recommend referral to Dr Kathe Lopezaid . [...] do not improve or if they worsen. Leeannaaid. Recommend referral to Dr Archuleta
--- OUTSIDE RECORDS SUMMARY | 2018-02-13 12:02 | XMS REPORT | CCD ---
Author Author [facility] Organization [facility] Address [address] [place] [address] Phone Care Team Providers Care Business Case Analyst Name Role Phone PP Unavailable CCM Unavailable Summary Purpose Interface Exchange Insurance Providers Payer name Policy type / Coverage type Covered libertarian ID Effective Begin Date Effective End Date WPS Medicare Part B Medicare Part B [id number] Unknown Unknown [facility] Medicare Part B [id number] Unknown Unknown Family history Mother Diagnosis Age At Onset Heart Attack Unknown Arthritis Unknown Dementia Unknown Grandfather Diagnosis Age At Onset Leukemia Unknown Father Diagnosis Age At Onset Hypertension Unknown Arthritis Unknown Heart Attack Unknown Social History Social History Element Codes Description Effective Dates Marital status Unknown Zoe 10/04/2015 Number of children Unknown 3 10/06/2014 Employment Unknown Retired 10/06/[address]: 30649306 Current every day smoker 10/06/2014 Number of years using tobacco Unknown > 50 10/06/2014 Number of cigarettes/day Unknown 10 ( Half a pack) 10/06/2014 Allergies, Adverse Reactions, Alerts Substance Reaction Codes Entered Date Inactivated Date Status * NO KNOWN DRUG ALLERGIES Unknown 08/29/2014 No Inactive Date Active Past Medical History Illness Codes Condition Status Onset Date Resolved Date Encounter for general adult medical examination with abnormal findings ICD-9: V70.0 ICD-10: Z00.01 Active 10/18/2016 Unknown Essential (primary) hypertension ICD-9: 401.1 ICD-10: I10 Active 07/02/2016 Unknown Pain in left knee ICD- 9: 719.46 ICD-10: M25.562 Active 10/03/2016 Unknown Pain in right hip ICD- 9: 719.45 ICD-10: M25.551 Active 08/28/2017 Unknown Pain in right knee ICD -9: 719.46 ICD-10: M25.561 Active 10/03/2016 Unknown Chronic pain syndrome ICD-9: 338.4 ICD-10: G89.4 Active 01/03/2016 Unknown Localized enlarged lymph nodes ICD-9: 785.6 ICD-10: R59.0 Active 07/31/2017 Unknown Tobacco use ICD-9: 305.1 ICD-10: Z72.0 Active 01/03/2016 Unknown 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 Active 07/02/2016 Unknown Encounter for immunization ICD-9: V03.9 ICD-10: Z23 Active 01/03/2016 Unknown Iliotibial band syndrome, right leg ICD-9: 728.89 ICD-10: M76.31 Active 02/04/2017 Unknown Low back pain ICD-9: 724.2 ICD-10: M54.5 Active 08/29/2015 Unknown Mixed hyperlipidemia ICD-9: 272.2 ICD-10: E78.2 [...] Codes Effective Dates Condition Status Encounter for general adult medical examination with abnormal findings ICD-9: V70.0 ICD-10: Z00.01 10/18/2016 Active Essential (primary) hypertension ICD-9: 401.1 ICD-10: I10 07/02/2016 Active Pain in left knee ICD- 9: 719.46 ICD-10: M25.562 10/03/2016 Active Pain in right hip ICD- 9: 719.45 ICD-10: M25.551 08/28/2017 Active Pain in right knee ICD -9: 719.46 ICD-10: M25.561 10/03/2016 Active Chronic pain syndrome ICD-9: 338.4 ICD-10: G89.4 01/03/2016 Active Localized enlarged lymph nodes ICD-9: 785.6 ICD-10: R59.0 07/31/2017 Active Tobacco use ICD-9: 305.1 ICD-10: Z72.0 01/03/2016 Active 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 07/02/2016 Active Encounter for immunization ICD-9: V03.9 ICD-10: Z23 01/03/2016 Active Iliotibial band syndrome, right leg ICD-9: 728.89 ICD-10: M76.31 02/04/2017 Active Low back pain ICD-9: 724.2 ICD-10: M54.5 08/29/2015 Active Mixed hyperlipidemia ICD-9: 272.2 ICD-10: E78.2 [...] hydrocodone 10 mg-acetaminophen 325 mg tablet RxNorm: 503355 1-2 Tablet(s) PO Q4 PRN as needed for pain 11/28/20172017 Active hydrocodone 10 mg-acetaminophen 325 mg tablet RxNorm: 181289 1-2 Tablet(s) PO Q4 PRN as needed for pain 10/24/20172017 Inactive hydrocodone 10 mg-acetaminophen 325 mg tablet RxNorm: 809203 1-2 Tablet(s) PO Q4 PRN as needed for pain 09/26/20172017 Inactive doxazosin 4 mg tablet RxNorm: 248521 1 TABLET(S) PO DAILY 201708/19/2018 Active allopurinol 100 mg tablet RxNorm: 830804 3 TABLET(S) PO DAILY - 2 IN THE AM AND 1 AT HS 08/04/2017 04/30/2018 Active hydrocodone 10 mg-acetaminophen 325 mg tablet RxNorm: 418538 1-2 Tablet(s) PO Q4 PRN as needed for pain 07/31/20172017 Inactive Hysingla ER 120 mg tablet, crush resistant, extended release RxNorm: 4128019 1 Tablet(s) PO daily 07/31/20172017 Inactive hydrocodone 10 mg-acetaminophen 325 mg tablet RxNorm: 686945 1-2 Tablet(s) PO Q4 PRN as needed for pain 07/03/20172017 Inactive Lipitor 40 mg tablet RxNorm: 178796 1 Tablet(s) PO daily 201705/29/2018 Active hydrocodone 10 mg-acetaminophen 325 mg tablet RxNorm: 944649 1-2 Tablet(s) PO Q4 PRN as needed for pain 06/04/20172017 Inactive Zithromax Z-Elmer 250 mg tablet RxNorm: 906310 1 Tablet(s) PO UD 05/30/2017 No Stop Date Active Tessalon 200 mg capsule RxNorm: 829393 1 Capsule(s) PO TID as needed cough 05/30/2017 06/03/2017 Inactive Tessalon 200 mg capsule RxNorm: 812881 1 Capsule(s) PO TID as needed cough 05/30/2017 05/29/2017 Inactive levothyroxine 50 mcg tablet RxNorm: 488412 1 TABLET(S) PO DAILY 05/05/2017 01/29/2018 Active metoprolol succinate ER 25 mg tablet,extended release 24 hr RxNorm: 910160 1 TABLET(S) PO DAILY 04/08/2017 01/02/2018 Active hydrocodone 10 mg-acetaminophen 325 mg tablet RxNorm: 967815 1-2 Tablet(s) PO Q4 PRN as needed for pain 04/04/20172017 Inactive hydrocodone 10 mg-acetaminophen 325 mg tablet RxNorm: 371455 1-2 Tablet(s) PO Q4 PRN as needed for pain 03/03/20172016 Inactive hydrocodone 10 mg-acetaminophen 325 mg tablet RxNorm: 336201 1-2 Tablet(s) PO Q4 PRN as needed for pain 01/30/20172016 Inactive hydrocodone 10 mg-acetaminophen 325 mg tablet RxNorm: 310780 1-2 Tablet(s) PO Q4 PRN as needed for pain 01/01/20172016 Inactive hydrocodone 10 mg-acetaminophen 325 mg tablet RxNorm: 282323 1-2 Tablet(s) PO Q4 PRN as needed for pain 12/02/20162016 Inactive hydrocodone 10 mg-acetaminophen 325 mg tablet RxNorm: 711845 1-2 Tablet(s) PO Q4 PRN as needed for pain 10/31/20162016 Inactive hydrocodone 10 mg-acetaminophen 325 mg tablet RxNorm: 925043 1-2 Tablet(s) PO Q4 PRN as needed for pain 10/03/20162016 Inactive pantoprazole 40 mg tablet,delayed release RxNorm: 659517 1 Tablet(s) PO daily 09/02/2016 08/27/2017 Inactive hydrocodone 10 mg-acetaminophen 325 mg tablet RxNorm: 234320 1-2 Tablet(s) PO Q4 PRN as needed for pain 08/30/20162016 Inactive pantoprazole 40 mg tablet,delayed release RxNorm: 170889 1 Tablet(s) PO daily 08/19/2016 09/01/2016 Inactive doxazosin 4 mg tablet RxNorm: 541791 1 TABLET(S) PO DAILY 201608/06/2017 Inactive levothyroxine 50 mcg tablet RxNorm: 475827 1 TABLET(S) PO DAILY 08/12/2016 05/04/2017 Inactive metoprolol succinate ER 25 mg tablet,extended release 24 hr RxNorm: 191686 1 TABLET(S) PO DAILY 07/08/2016 04/03/2017 Inactive hydrocodone 10 mg-acetaminophen 325 mg tablet RxNorm: 933671 1-2 Tablet(s) PO Q4 PRN as needed for pain 07/02/20162016 Inactive hydrocodone 10 mg-acetaminophen 325 mg tablet RxNorm: 971112 1-2 Tablet(s) PO Q4 PRN as needed for pain 06/05/20162016 Inactive hydrocodone 10 mg-acetaminophen 325 mg tablet RxNorm: 294444 1-2 Tablet(s) PO Q4 PRN as needed for pain 05/06/20162016 Inactive hydrocodone 10 mg-acetaminophen 325 mg tablet RxNorm: 698695 1-2 Tablet(s) PO Q4 PRN as needed for pain 05/06/20162016 Inactive allopurinol 100 mg tablet RxNorm: 530871 3 Tablet(s) PO daily - 2 in the AM and 1 at HS 05/06/2016 04/30/2017 Inactive hydrocodone 10 mg-acetaminophen 325 mg tablet RxNorm: 800638 1-2 Tablet(s) PO Q4 PRN as needed for pain 03/04/20162016 Inactive hydrocodone 10 mg-acetaminophen 325 mg tablet RxNorm: 537637 1-2 Tablet(s) PO Q4 PRN as needed for pain 02/01/20162015 Inactive omeprazole 20 mg capsule,delayed release RxNorm: 661633 1 Capsule(s) PO BID 01/04/2016 07/01/2016 Inactive atorvastatin 40 mg tablet RxNorm: 059522 1 Tablet(s) PO daily 01/04/2016 06/03/2017 Inactive lisinopril 10 mg tablet RxNorm: 998803 1 Tablet(s) PO daily 05/05/2017 Inactive meloxicam 15 mg tablet RxNorm: 288157 TAKE 1 TABLET BY MOUTH EVERY DAY 10/17/2015 07/01/2016 Inactive levothyroxine 50 mcg tablet RxNorm: 954706 1 TABLET(S) PO DAILY 10/17/2015 07/12/2016 Inactive hydrocodone 10 mg-acetaminophen 325 mg tablet RxNorm: 636006 1-2 Tablet(s) PO Q4 PRN as needed for pain 10/10/20152015 Inactive Lipitor 40 mg tablet RxNorm: 493469 1 Tablet(s) PO daily 201501/03/2016 Inactive MS Contin 60 mg tablet,extended release RxNorm: 674137 1 Tablet(s) PO BID 08/30/2015 10/03/2015 Inactive hydrocodone 10 mg-acetaminophen 325 mg tablet RxNorm: 131345 1-2 Tablet(s) PO Q4 PRN as needed for pain 08/30/20152015 Inactive doxazosin 4 mg tablet RxNorm: 864306 1 Tablet(s) PO daily 201507/26/2016 Inactive OxyContin 20 mg tablet,crush resistant,extended release RxNorm: 1762664 1 Tablet(s ) PO BID 08/02/2015 08/29/2015 Inactive meloxicam 15 mg tablet RxNorm: 326588 TAKE 1 TABLET BY MOUTH EVERY DAY 07/25/2015 10/16/2015 Inactive hydrocodone 10 mg-acetaminophen 325 mg tablet RxNorm: 337491 1 Tablet(s) PO Q4 PRN as needed for pain 07/13/20152015 Inactive levothyroxine 50 mcg tablet RxNorm: 768313 1 Tablet(s) PO daily 07/13/2015 10/10/2015 Inactive metoprolol succinate ER 25 mg tablet,extended release 24 hr RxNorm: 843052 1 Tablet(s) PO daily 06/30/2015 06/23/2016 Inactive hydrocodone 10 mg-acetaminophen 325 mg tablet RxNorm: 419701 1 Tablet(s) PO Q4 PRN as needed for pain 04/21/20152015 Inactive hydrocodone 10 mg-acetaminophen 325 mg tablet RxNorm: 508251 1 Tablet(s) PO Q4 PRN as needed for pain 03/30/20152015 Inactive allopurinol 100 mg tablet RxNorm: 846679 3 Tablet(s) PO 2 at am 1 at hs UD 02/08/2015 02/02/2016 Inactive hydrocodone 10 mg-acetaminophen 325 mg tablet RxNorm: 065785 1 Tablet(s) PO Q4 PRN 01/25/2015 03/29/2015 Inactive omeprazole 20 mg capsule,delayed release RxNorm: 757432 1 Capsule(s) PO BID 1at am 1at pm 01/05/2015 12/30/2015 Inactive hydrocodone 10 mg-acetaminophen 325 mg tablet RxNorm: 408657 1 Tablet(s) PO Q4 PRN 01/05/2015 01/24/2015 Inactive Voltaren 1 % topical gel RxNorm: 966543 4 Gram(s) TOP QID 10/0612/04/2014 Inactive Multivitamin & Mineral Formula oral RxNorm: oral No Start Date Active potassium 99 mg tablet RxNorm: 1 Tablet(s) PO daily No Start Date Active B povtftb-B-tbdmucj tablet RxNorm: 1 Tablet(s) PO daily No Start Date Active clopidogrel 75 mg tablet RxNorm: 203455 1 Tablet(s) PO daily No Start Date Active magnesium oxide 400 mg tablet RxNorm: 118450 1 Tablet(s) PO daily No Start Date Active aspirin 81 mg tablet RxNorm: 910439 1 Tablet(s) PO daily No Start Date Active omega 3 183.3 mg-dha 75 mg-epa 91.6 mg-fish oil 306 mg capsule RxNorm: 1 Capsule(s) PO daily No Start Date Active Calcium + D 600 mg (1,500)-200 unit tablet RxNorm: 749248 1 Tablet(s) PO daily No Start Date Active Ranexa 500 mg tablet,extended release RxNorm: 501274 1 Tablet(s) PO BID No Start Date Active allopurinol 100 mg tablet RxNorm: 293486 Tablet(s) PO 2 at am 1 at hs No Start Date 02/07/2015 Inactive Zithromax Z-Elmer 250 mg tablet RxNorm: 928013 1 Tablet(s) PO UD No Start Date 05/29/2017 Inactive pantoprazole 40 mg tablet,delayed release RxNorm: 272906 1 Tablet(s) PO daily No Start Date 08/18/2016 Inactive meloxicam 15 mg tablet RxNorm: 110567 1 Tablet(s) PO daily No Start Date 07/24/2015 Inactive doxazosin 4 mg tablet RxNorm: 582945 1 Tablet(s) PO daily No Start Date 08/01/2015 Inactive hydrocodone 7.5 mg-acetaminophen 325 mg tablet RxNorm: 491068 1 Tablet(s) PO QID as needed for pain No Start Date 2014 Inactive Vitamin D3 5,000 unit tablet RxNorm: 255253 1 Tablet(s) PO daily No Start Date 07/01/2016 Inactive B-12 Plus 1,000 mcg/mL injection solution RxNorm: 388573 1 Milliliter(s) Inj daily No Start Date 07/01/2016 Inactive magnesium citrate RxNorm: 6574 miscellaneous No Start Date 07/02/2016 Inactive Lipitor 20 mg tablet RxNorm: 421821 1 Tablet(s) PO daily No Start Date 08/29/2015 Inactive metoprolol succinate ER 25 mg tablet,extended release 24 hr RxNorm: 595453 1 Tablet(s) PO daily No Start Date 2015 Inactive lisinopril 10 mg tablet RxNorm: 222618 1 Tablet(s) PO daily No Start Date 01/03/2016 Inactive levothyroxine 50 mcg tablet RxNorm: 908064 1 Tablet(s) PO daily No Start Date 07/12/2015 Inactive omeprazole 20 mg capsule,delayed release RxNorm: 734350 Capsule(s) PO daily 1at am 1at pm No Start Date 01/04/2015 Inactive Medication Administered No Medication Administered data Immunizations Vaccine Codes Date Status Influenza CVX: 141 02/04/2017 completed Influenza CVX: 141 01/04/2016 completed Pneumococcal (Adult) CVX: 133 01/04/2016 completed Influenza CVX: 141 01/05/2015 completed Influenza CVX: 141 11/12/2013 completed Pneumococcal CVX: 33 11/12/2013 completed Assessments Condition Codes Effective Dates Encounter for general adult medical examination with abnormal findings ICD-10: Z00.01 ICD-9: V70.0 10/24/2017 Pain in right knee ICD-10: M25.561 ICD-9: 719.46 08/28/2017 Pain in left knee ICD-10: M25.562 ICD-9: 719.46 08/28/2017 Essential (primary) hypertension ICD-10: I10 ICD-9: 401.1 08/28/2017 Pain in right hip ICD-10: M25.551 ICD-9: 719.45 08/28/2017 Chronic pain syndrome ICD-10: G89.4 ICD-9: 338.4 07/31/2017 Localized enlarged lymph nodes ICD-10: R59.0 ICD-9: 785.6 07/31/2017 Tobacco use ICD-10: Z72.0 ICD-9: 305.1 07/31/2017 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 ICD-9: 244.8 06/04/2017 Encounter for immunization ICD-10: Z23 ICD-9: V03.9 02/04/2017 Iliotibial band syndrome, right leg ICD-10: M76.31 ICD-9: 728.89 02/04/2017 Low back pain ICD-10: M54.5 ICD-9: 724.2 02/04/2017 Mixed hyperlipidemia ICD-10: E78.2 ICD-9: 272.2 07/02/2016 [...] Visit Reason For Visit Effective Dates Notes Annual Medicare Wellness Exam 10/24/2017 medication follow [...] Lipid Ord30 C/HDL 3.8 Ratio 03/17/2017 Hepatic Joh338 ALBUMIN 4.4 g/dL 03/17/2017 Hepatic Gnf486 TPRO 7.3 g/dL 03/17/2017 Hepatic Jva903 GLOB 2.9 g/dL 03/17/2017 Hepatic Gvu079 A/G Ratio 1.5 Ratio 03/17/2017 Hepatic Mxw898 ALK PHOS 125 U/L 03/17/2017 Hepatic Xuv553 ALT(SGPT) 15 U/L 03/17/2017 Hepatic Nty340 AST(SGOT) 22 U/L 03/17/2017 Hepatic Lmg970 BILI T 0.7 mg/dL 03/17/2017 Hepatic Vya228 BILI D 0.1 mg/dL 03/17/2017 Hepatic Psd135 BILI I 0.6 mg/dL 03/17/2017 Tsh Ord6 hTSH II 2.89 uIU/mL 01/13/2017 Comp Metabolic Nxf886 NA 139 mEq/L 01/13/2017 Comp Metabolic Pcq904 K 4.4 mEq/L 01/13/2017 Comp Metabolic War173 CL 105 mEq/L 01/13/2017 Comp Metabolic Jbj465 CO2 29.0 mEq/L 01/13/2017 Comp Metabolic Jzd578 ANION GAP 9 01/13/2017 Comp Metabolic Mho873 GLUCOSE 105 mg/dL 01/13/2017 Comp Metabolic Bai628 Creat 1.1 mg/dL 01/13/2017 Comp Metabolic Nui270 eGFR 68 ml/min/1.73m2 01/13/2017 Comp Metabolic Kim647 BUN 12 mg/dL 01/13/2017 Comp Metabolic Bvi248 B/C Ratio 10.7 Ratio 01/13/2017 Comp Metabolic Lts340 CALCIUM 9.2 mg/dL 01/13/2017 Comp Metabolic Hvv479 ALK PHOS 90 U/L 01/13/2017 Comp Metabolic Dfe114 AST(SGOT) 18 U/L 01/13/2017 Comp Metabolic Rne276 ALT(SGPT) 12 U/L 01/13/2017 Comp Metabolic Mvf407 BILI T 0.5 mg/dL 01/13/2017 Comp Metabolic Sjx440 ALBUMIN 4.1 g/dL 01/13/2017 Comp Metabolic Qky022 TPRO 6.4 g/dL 01/13/2017 Comp Metabolic Lqd427 GLOB 2.3 g/dL 01/13/2017 Comp Metabolic Ltv187 A/G Ratio 1.8 Ratio 01/13/2017 Comp Metabolic Mbg507 Osmo 278 mOsmo 01/13/2017 Lipid Ord30 CHOL [...] 67.4 % 01/13/2017 Cbc With Differential Ord2 MCV 104.1 fl 01/13/2017 Cbc With Differential Ord2 Lymph% 18.4 % 01/13/2017 Cbc With Differential Ord2 MCH 35.6 pg 01/13/2017 Cbc With Differential Ord2 [place]% 10.5 % 01/13/2017 Cbc With Differential Ord2 MCHC 34.2 pg 01/13/2017 Cbc With Differential Ord2 Eos% 3.4 % 01/13/2017 Cbc With Differential Ord2 Baso% 0.3 % 01/13/2017 Cbc With Differential Ord2 PLT 188 K/ul 01/13/2017 Cbc With Differential Ord2 RDW 14.3 % 01/13/2017 Cbc With Differential Ord2 Neut ABS# 4.75 K/ul 01/13/2017 Cbc With Differential Ord2 Lymph ABS# 1.30 K/ul 01/13/2017 Cbc With Differential Ord2 [place] ABS# 0.7 K/ul 01/13/2017 Cbc With Differential Ord2 Eos ABS# 0.2 K/ul 01/13/2017 Cbc With Differential Ord2 Baso ABS# 0.0 K/ul 01/13/2017 Total Psa Ord10 PSA 0.02 ng/mL 01/13/2017 Vitamin D 25 Oh [id number] VITAMIN D, 25 HYDROXY 65.24 ng/mL Tsh Ord6 hTSH II 1.32 uIU/mL 10/20/2014 Comp Metabolic Hxa933 NA 138 mEq/L 10/20/2014 Comp Metabolic Fgl068 K 4.4 mEq/L 10/20/2014 Comp Metabolic Jsn180 CL 106 mEq/L 10/20/2014 Comp Metabolic Cxg678 CO2 28.0 mEq/L 10/20/2014 Comp Metabolic Ofq728 ANION GAP 8 10/20/2014 Comp Metabolic Mgd899 GLUCOSE 98 mg/dL 10/20/2014 Comp Metabolic Rai386 Creat 1.0 mg/dL 10/20/2014 Comp Metabolic Hhy389 eGFR 74 ml/min/1.73m2 10/20/2014 Comp Metabolic Kia310 BUN 14 mg/dL 10/20/2014 Comp Metabolic Bzt923 B/C Ratio 13.5 Ratio 10/20/2014 Comp Metabolic Hcv613 CALCIUM 9.4 mg/dL 10/20/2014 Comp Metabolic Klg553 ALK PHOS 125 U/L 10/20/2014 Comp Metabolic Liq862 AST(SGOT) 22 U/L 10/20/2014 Comp Metabolic Xqg876 ALT(SGPT) 20 U/L 10/20/2014 Comp Metabolic Umi860 BILI T 0.5 mg/dL 10/20/2014 Comp Metabolic Xlk089 ALBUMIN 4.4 g/dL 10/20/2014 Comp Metabolic Cel706 TPRO 6.7 g/dL 10/20/2014 Comp Metabolic Ktu092 GLOB 2.3 g/dL 10/20/2014 Comp Metabolic Xhq786 A/G Ratio 1.9 Ratio 10/20/2014 Comp Metabolic Rrc859 Osmo 276 mOsmo 10/20/2014 Cbc With Differential [...] SUBSEQ VISIT CPT -4: G0439 10/24/2017 TO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 3-[address]: 475411345 CPT-4: G0436 02/04/2017 ADMIN INFLUENZA VIRUS VAC CPT-4: G0008 02/04/2017 FLU VAC NO PRSV 4 ROSETTE 3 YRS+ CPT-4: 32212 02/04/2017 PPPS, SUBSEQ VISIT CPT -4: G0439 10/18/2016 [employer]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 3-[address]: 904954967 CPT-4: G0436 10/03/2016 [employer]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 3-[address]: 086703044 CPT-4: G0436 07/02/2016 [employer]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 3-[address]: 511217407 CPT-4: G0436 04/04/2016 [employer]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 3-[address]: 722415767 CPT-4: G0436 01/04/2016 ADMIN INFLUENZA VIRUS VAC CPT-4: G0008 01/04/2016 ADMIN PNEUMOCOCCAL VACCINE SNOMED CT: 70382470 CPT-4: G0009 01/04/2016 PNEUMOCOCCAL VACC [address]: 30967977 CPT-4: 60698 01/04/2016 FLU VACC 4 ROSETTE 3 YRS PLUS IM SNOMED CT: 12861099 CPT-4: 06974 01/04/2016 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 3-[address]: 588605175 CPT-4: G0436 10/04/2015 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 3-[address]: 871464397 CPT-4: G0436 08/30/2015 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 3-[address]: 657826931 CPT-4: G0436 08/02/2015 ADMIN INFLUENZA VIRUS VAC CPT-4: G0008 01/05/2015 FLU VACC 4 ROSETTE 3 YRS PLUS IM Formatting Model/CDA Sections, Assigned to SNOMED CT: 21088906 CPT-4: 28889Hotjcix 01/05/2015 Vital Signs Date Vital 10/24/2017 Height: Weight: 08/28/2017 Blood Pressure 1: 130/72 Code : 8480-6 BMI: 28.3 Code : 37561-9 Heart Rate 1 : 60 bpm Height: 6' SpO2: 96% Weight: 209 lbs 07/31/2017 Blood Pressure 1: 126/64 Code : 8480-6 BMI: 29.7 Code : 77320-1 Heart Rate 1 : 59 bpm Height: 6' SpO2: 95% Weight: 219 lbs 06/04/2017 Blood Pressure 1: 134/86 Code : 8480-6 BMI: 28.6 Code : 14976-3 Heart Rate 1 : 91 bpm Height: 6' SpO2: 97% Weight: 211 lbs 02/04/2017 Blood Pressure 1: 128/74 Code : 8480-6 BMI: 28.3 Code : 27740-6 Heart Rate 1 : 63 bpm Height: 6' SpO2: 96% Weight: 209 lbs 10/18/2016 BMI: 27.7 Code: 04580-1 Height: 6' Weight: 204 lbs 10/03/2016 Blood Pressure 1: 118/70 Code : 8480-6 BMI: 27.7 Code : 48246-1 Heart Rate 1 : 58 bpm Height: 6' SpO2: 95% Weight: 204 lbs 07/02/2016 Blood Pressure 1: 104/64 Code : 8480-6 BMI: 28.5 Code : 37164-1 Heart Rate 1 : 63 bpm Height: 6' SpO2: 98% Weight: 210 lbs 04/04/2016 Blood Pressure 1: 116/62 Code : 8480-6 BMI: 29.9 Code : 09935-4 Heart Rate 1 : 59 bpm Height: 6' SpO2: 98% Weight: 220 lbs 8 oz 01/04/2016 Blood Pressure 1: 136/78 Code : 8480-6 BMI: 29.6 Code : 55467-1 Heart Rate 1 : 55 bpm Height: 6' SpO2: 97% Weight: 218 lbs 10/04/2015 Blood Pressure 1: 130/80 Code : 8480-6 BMI: 29.3 Code : 03784-5 Heart Rate 1 : 69 bpm Height: 6' SpO2: 97% Weight: 216 lbs 08/30/2015 Blood Pressure 1: 112/64 Code : 8480-6 BMI: 30.4 Code : 64455-1 Heart Rate 1 : 68 bpm Height: 6' SpO2: 95% Weight: 224 lbs 8 oz 08/02/2015 Blood Pressure 1: 120/70 Code : 8480-6 BMI: 30.1 Code : 35764-5 Heart Rate 1 : 55 bpm Height: 6' SpO2: 97% Weight: 222 lbs 04/21/2015 Blood Pressure 1: 160/86 Code : 8480-6 Blood Pressure 1: 138/82 Code: 8480-6 BMI: 30.9 Code: 53687-1 Heart Rate 1: 96 bpm Height: 6' SpO2: 96% Weight: 228 lbs 03/21/2015 Blood Pressure 1: 124/82 Code : 8480-6 BMI: 30.0 Code : 10593-7 Heart Rate 1 : 78 bpm Height: 6' SpO2: 98% Weight: 221 lbs 01/05/2015 Blood Pressure 1: 138/78 Code : 8480-6 BMI: 29.3 Code : 05748-6 Heart Rate 1 : 61 bpm Height: 6' SpO2: 98% Weight: 216 lbs 10/06/2014 Blood Pressure 1: 130/78 Code : 8480-6 BMI: 29.3 Code : 31260-2 Heart Rate 1 : 71 bpm Height: 6' SpO2: 97% Weight: 216 lbs Functional Status No Functional Status data History of Present Illness Symptom Name Status Result Effective Date Notes Annual Medicare Wellness Exam Depression (last 6 [...] back pain, takes hydrocodone prescribed by the [place] back pain Location lumbar spine 08/30/2015 None [...] back pain, takes hydrocodone prescribed by the [place] back pain Location lumbar spine 08/02/2015 None [...] pain, [facility] 04/21/2015 None [...] data Encounters Encounter Performer Location Codes Date 75102) EST. PATIENT, LEVEL IV Diagnosis: Essential (primary) hypertension[ICD10: I10] Diagnosis: Pain in left knee[ICD10: M25.562] Diagnosis: Pain in right knee[ICD10: M25.561] Diagnosis: Pain in right hip[ICD10: M25.551] Pepper Baeza MD, [facility] CPT-4: 67834 08/28/2017 ([id number]) [id number] EST. PATIENT, LEVEL IV Diagnosis: Chronic pain syndrome[ICD10: G89.4] Diagnosis: Tobacco use[ICD10: Z72.0] Diagnosis: Localized enlarged lymph nodes[ICD10: R59.0] Pepper Baeza MD, [facility] CPT-4: 28790 07/31/2017 [id number]) [id number] EST. PATIENT, LEVEL IV Diagnosis: Essential (primary) hypertension[ICD10: I10] Diagnosis: Chronic pain syndrome[ICD10: G89.4] Diagnosis: Atrophy of thyroid (acquired)[ICD10: E03.4] Diagnosis: Tobacco use[ICD10: Z72.0] Pepper Baeza MD, [facility] CPT-4: 78646 06/04/2017 ([id number]) [id number] EST. PATIENT, LEVEL IV Diagnosis: Essential (primary) hypertension[ICD10: I10] Diagnosis: Low back pain[ICD10: M54.5] Diagnosis: Iliotibial band syndrome, right leg[ICD10: M76.31] Diagnosis: Chronic pain syndrome[ICD10: G89.4] Diagnosis: Encounter for immunization[ICD10: Z23] Pepper Baeza MD, [facility] CPT-4: 25647 02/04/2017 ([id number]) 72096 EST. PATIENT, LEVEL IV Diagnosis: Essential (primary) hypertension[ICD10: I10] Diagnosis: Chronic pain syndrome[ICD10: G89.4] Diagnosis: Low back pain[ICD10: M54.5] Diagnosis: Pain in right knee[ICD10: M25.561] Diagnosis: Pain in left knee[ICD10: M25.562] Pepper Baeza MD, [facility] CPT-4: 58105 10/03/2016 ([id number]) [id number] EST. PATIENT, LEVEL IV Diagnosis: Essential (primary) hypertension[ICD10: I10] Diagnosis: Mixed hyperlipidemia[ICD10: E78.2] Diagnosis: Chronic pain syndrome[ICD10: G89.4] Diagnosis: Atrophy of thyroid (acquired)[ICD10: E03.4] Pepper Baeza MD, [facility] CPT-4: 88562 07/02/2016 ([id number]) 35567 EST. PATIENT, LEVEL IV Diagnosis: Essential (primary) hypertension[ICD10: I10] Diagnosis: Tobacco use[ICD10: Z72.0] Diagnosis: Chronic pain syndrome[ICD10: G89.4] Pepper Baeza MD, [facility] CPT-4: 99844 04/04/2016 [id number]) [id number] EST. PATIENT, LEVEL IV Diagnosis: Encounter for immunization[ICD10: Z23] Diagnosis: Essential (primary) hypertension[ICD10: I10] Diagnosis: Chronic pain syndrome[ICD10: G89.4] Diagnosis: Tobacco use[ICD10: Z72.0] Diagnosis: Mixed hyperlipidemia[ICD10: E78.2] Diagnosis: Gastro-esophageal reflux disease without esophagitis[ICD10: K21.9] Pepper Baeza MD, [facility] CPT-4: 55586 01/04/2016 ([id number]) [id number] EST. PATIENT, LEVEL IV Diagnosis: Essential (primary) hypertension[ICD10: I10] Diagnosis: Chronic pain syndrome[ICD10: G89.4] Diagnosis: Tobacco use[ICD10: Z72.0] Pepper Baeza MD, [facility] CPT-4: 61662 10/04/2015 ([id number]) [id number] EST. PATIENT, LEVEL III Diagnosis: Chronic pain syndrome[ICD10: G89.4] Diagnosis: Low back pain[ICD10: M54.5] Diagnosis: Tobacco use[ICD10: Z72.0] Diagnosis: Mixed hyperlipidemia[ICD10: E78.2] Pepper Baeza MD, [facility] CPT-4: 22226 08/30/2015 ([id number]) [address] EST. PATIENT, LEVEL IV Diagnosis: Essential (primary) hypertension[ICD10: I10] Diagnosis: Low back pain[ICD10: M54.5] Diagnosis: Chronic pain syndrome[ICD10: G89.4] Pepper Baeza MD, [facility] CPT-4: 09287 08/02/2015 ([id number]) 53673 EST. PATIENT, LEVEL III Diagnosis: Essential (primary) hypertension[ICD10: I10] Diagnosis: Low back pain[ICD10: M54.5] Elaine Baeza MD, [facility] CPT-4: 44259 04/21/2015 ([id number]) 93280 EST. PATIENT, LEVEL IV Diagnosis: Epigastric pain[ICD10: R10.13] Diagnosis: Essential (primary) hypertension[ICD10: I10] Diagnosis: Gastro-esophageal reflux disease without esophagitis[ICD10: K21.9] Pepper Baeza MD, [facility] CPT-4: 34817 03/21/2015 ([id number]) 42078 EST. PATIENT, LEVEL III Diagnosis: ESSENTIAL HYPERTENSION[ICD9: 401.9] Diagnosis: SCIATICA[ICD9: 724.3] Pepper Baeza MD, [facility] CPT-4: 36557 01/05/2015 ([id number]) OFFICE VISIT, NEW - LEVEL 4 Diagnosis: ESSENTIAL HYPERTENSION[ICD9: 401.9] Diagnosis: HYPOTHYROIDISM[ICD9: 244.9] Diagnosis: ESOPHAGEAL REFLUX[ICD9: 530.81] [facility] CPT- 4: 92112 10/06/2014 Plan of Care Planned Activity Notes Codes Status Date Visit Plan: Medicare Exam - today we [...] 10/24/2017 Appointment: Parul Collier WPtel: [facility] [facility] - Annual Wellness Visit 10/24/2017 Patient Education: Patient Medication Summary Completed 10/24/2017 Appointment: Pepper Baeza WPtel: [phone] [facility] (15 min) Moderate 09/09/2017 Visit Plan: [...] anterior hip/thigh 08/28/2017 Appointment: Pepper Baeza [phone] [place] (15 min) Moderate 08/28/2017 Patient Education: Patient Medication Summary Completed 08/28/2017 Care Plan: X-RAY EXAM OF HIP LOINC : 07125-8 Pending 08/28/2017 Visit Plan: Hypertension - well [...] #180 pills. 07/31/2017 Appointment: Pepper Baeza [facility]el[phone] [place] (15 min) Moderate 07/31/2017 Patient Education: Patient Medication Summary Completed 07/31/2017 Care Plan: CT THORAX W/O DYE LOINC : 38928-6 Pending 07/31/2017 Visit Plan: Hypertension - well [...] tomorrow. 06/04/2017 Appointment: Pepper Baeza WPtel: [phone] [facility] [place] (30 min) Complex 06/04/2017 Patient Education: Patient [...] clinic today 02/04/2017 Appointment: Pepper Baeza WPtel: [phone] [facility] [place] [place] (30 min) Complex 02/04/2017 Patient Education: Patient [...] surrogate. 10/18/2016 Appointment: Parul Collier WPtel: [phone] [facility] [facility] - Annual Wellness Visit 10/18/2016 [...] work-up, may need stenting. 10/03/2016 Appointment: Pepper Beaza WPtel: [phone] [facility] (30 min) Complex 10/03/2016 Patient Education: Patient [...] time. 07/02/2016 Appointment: Pepper Baeza WPtel: [phone] [facility] (30 min) Complex 07/02/2016 Patient Education: [...] stopping smoking. 04/04/2016 Appointment: Pepper Baeza WPtel: [phone] [facility] (30 min) Complex 04/04/2016 Patient Education: [...] not improving. 01/04/2016 Appointment: Pepper Baeza WPtel: [facility] (15 min) Moderate 01/04/2016 Patient Education: [...] of over-medication. 10/04/2015 Appointment: Pepper Baeza WPtel: [phone] [facility] (15 min) Moderate 10/04/2015 Patient Education: [...] 08/02/2015 Appointment: Pepper Baeza WPtel: [facility] [place] (15 min) Moderate 08/02/2015 Patient Education: Patient [...] 10/06/2014 Appointment: Pepper Baeza WPtel: [facility] [place] [place] ([place] New Patient 10/06/2014 Patient [...] pt needs to keep appt with Dr. Sagastmue tomorrow. . Hypertension - well controlled - [...] luong pennsaid. Recommend referral to Dr Kathe Gonzalez [...]
--- OUTSIDE RECORDS SUMMARY | 2018-02-13 12:08 | XMS REPORT | Continuity of Care Document ---
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 PLATER APPRENTICE Ot V10.82 HX-MALIG SKIN MELANOMA 05/31/2017 KAYLEY [...] Ot 305.1 TOBACCO USE DISORDER 05/31/2017 GÉNESIS MIRAMONTES DO Ot 780.54 HYPERSOMNIA, UNSPECIFIED 05/31/2017 GÉNESIS MIRAMONTES DO Ot 786.09 RESPIRATORY ABNORM NEC 05/31/2017 Ot 486 PNEUMONIA, ORGANISM NOS 05/31/2017 Ot 780.60 FEVER, UNSPECIFIED 05/31/2017 Ot 786.2 COUGH 05/31/2017 LINDSAY SIMMS Ot F17.200 NICOTINE DEPENDENCE, UNSPECIFIED, UNCOMP 05/31/2017 LINDSAY SIMMS Ot Z08 ENCNTR FOR FOLLOW-UP EXAM AFTER TRTMT FO 05/31/2017 LINDSAY SIMMS Ot Z79.899 OTHER PENITENTIARY (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 THERAPY 05/31/2017 LINDSAY SIMMS Ot 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 05/31/2017 LIANA ARIAS Ot E78.0 PURE HYPERCHOLESTEROLEMIA 05/31/2017 LIANA ARIAS Ot I10 ESSENTIAL (PRIMARY) HYPERTENSION 05/31/2017 LIANA ARIAS Ot I25.10 ATHSCL HEART DISEASE OF [place] CORONARY 05/31/2017 LIANA AIRAS Ot 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 05/31/2017 LIANA ARIAS Ot E78.0 PURE HYPERCHOLESTEROLEMIA 05/31/2017 LIANA ARISA Ot I10 ESSENTIAL (PRIMARY) HYPERTENSION 05/31/2017 LIANA ARIAS Ot I25.10 ATHSCL HEART DISEASE OF [place] CORONARY 05/31/2017 LIANA ARIAS Ot 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 05/31/2017 LINDSAY SIMMS Ot F17.200 NICOTINE DEPENDENCE, UNSPECIFIED, UNCOMP 05/31/2017 LINDSAY SIMMS Ot Z08 ENCNTR FOR FOLLOW-UP EXAM AFTER TRTMT FO 05/31/2017 LINDSAY SIMMS Ot Z79.899 OTHER PENITENTIARY (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 THERAPY 05/31/2017 LINDSAY SIMMS Ot 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 05/31/2017 LINDSAY SIMMS Ot F17.210 NICOTINE DEPENDENCE, CIGARETTES, UNCOMPL 05/31/2017 LINDSAY SIMMS Ot Z08 ENCNTR FOR FOLLOW-UP EXAM AFTER TRTMT FO 05/31/2017 DEMILINDSAY Ot Z79.899 OTHER REPAIR TECH (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 THERAPY 05/31/2017 DEMILINDSAY Ot 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 05/31/2017 JANN YADAV MD, Ot F17.210 NICOTINE DEPENDENCE, CIGARETTES, UNCOMPL 05/31/2017 JANN YADAV MD, Ot M54.6 PAIN IN THORACIC SPINE 05/31/2017 JANN YADAV MD, Ot R07.89 OTHER CHEST PAIN 05/31/2017 JANN YADAV MD, Ot R07.9 CHEST PAIN, UNSPECIFIED 05/31/2017 JANN YADAV MD, Ot R91.1 SOLITARY PULMONARY NODULE 05/31/2017 JANN YADAV MD, Ot Z79.02 PENITENTIARY (CURRENT) USE OF ANTITHROMBOTI 05/31/2017 JANN YADAV MD, Ot Z79.899 OTHER REPAIR TECH (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 THERAPY 05/31/2017 JANN YADAV MD, Ot Z95.1 PRESENCE OF AORTOCORONARY BYPASS GRAFT 05/31/2017 KAYLEY LAMBERT MD Ot E11.9 TYPE 2 DIABETES MELLITUS WITHOUT COMPLIC 05/31/2017 KAYLEY LAMBERT MD Ot E78.2 MIXED HYPERLIPIDEMIA 05/31/2017 KAYLEY LAMBERT MD Ot I10 ESSENTIAL (PRIMARY) HYPERTENSION 05/31/2017 KAYLEY LAMBERT MD Ot I25.10 ATHSCL HEART DISEASE OF [place] CORONARY 05/31/2017 KAYLEY LAMBERT MD Ot R06.00 DYSPNEA, UNSPECIFIED 05/31/2017 DEAN SHI APRN Ot R06.00 DYSPNEA, UNSPECIFIED 05/31/2017 DEAN SHI APRN Ot R91.1 SOLITARY PULMONARY NODULE 05/31/2017 DEAN SHI APRN Ot Z72.0 TOBACCO USE 05/31/2017 DEAN SHI APRN Ot R91.1 SOLITARY PULMONARY NODULE 05/31/2017 LINDSAY SIMMS Ot F17.210 NICOTINE DEPENDENCE, CIGARETTES, UNCOMPL 05/31/2017 LINDSAY SIMMS Ot R91.1 SOLITARY PULMONARY NODULE 05/31/2017 LINDSAY SIMMS Ot Z08 ENCNTR FOR FOLLOW-UP EXAM AFTER TRTMT FO 05/31/2017 LINDSAY SIMMS Ot Z79.899 OTHER REPAIR TECH (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 THERAPY 05/31/2017 LINDSAY SIMMS Ot 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 05/31/2017 LIANA ARIAS Ot E78.2 MIXED HYPERLIPIDEMIA 05/31/2017 LIANA ARIAS Ot I10 ESSENTIAL (PRIMARY) HYPERTENSION 05/31/2017 LIANA ARIAS Ot I25.10 ATHSCL HEART DISEASE OF [place] CORONARY 05/31/2017 LIANA ARIAS Ot 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 08/07/2017 Ot 735.4 OTHER HAMMER TOE 08/07/2017 Ot V72.63 PRE- PROCEDURAL LABORATORY EXAMINATION 08/07/2017 Ot V74.8 SCREEN- BACTERIAL DIS NEC 08/07/2017 Ot 173.31 BASAL CELL CARCINOMA OF SKIN OF OTH UN 08/07/2017 Ot 173.61 BASAL CELL CARCINOMA OF SKIN OF UPPER LI 08/07/2017 Ot 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 08/07/2017 Ot 216.5 BENIGN JENNIFER SKIN TRUNK 08/07/2017 Ot 702.0 ACTINIC KERATOSIS 08/07/2017 Ot 702.19 OTHER SEBORRHEIC KERATOSIS 08/07/2017 Ot 735.4 OTHER HAMMER TOE 08/07/2017 Ot 305.1 TOBACCO USE DISORDER 08/07/2017 Ot 702.0 ACTINIC KERATOSIS 08/07/2017 Ot V10.46 HX- PROSTATIC MALIGNANCY 08/07/2017 Ot V10.82 HX-MALIG SKIN MELANOMA 08/07/2017 Ot V58.65 LONG-TERM( CURRENT)USE OF STEROIDS 08/07/2017 Ot V58.66 LONG-TERM ( CURRENT) USE OF ASPIRIN 08/07/2017 Ot V58.69 OTH MED,LT, CURRENT USE 08/07/2017 Ot V67.09 SURGERY FOLLOW-UP, OTHER SURGERY 08/07/2017 MATTHEW LIU, ELO Patiño Ot 735.4 OTHER HAMMER TOE 08/07/2017 ELO CASTRO DPM Ot V72.83 EXAM PRE-OPERATIVE NEC 08/07/2017 ELO CASTRO DPM Ot V74.8 SCREEN-BACTERIAL DIS NEC 08/07/2017 LINDSAY SIMMS Fausto Ot 305.1 TOBACCO USE DISORDER 08/07/2017 LINDSAY SIMMS Fausto Ot V10.46 HX-PROSTATIC MALIGNANCY 08/07/2017 DEMI JAROCHOVANDANA Fausto Ot V10.82 HX-MALIG SKIN MELANOMA 08/07/2017 LINDSAY SIMMS Fausto Ot V58.65 LONG-TERM(CURRENT)USE OF STEROIDS 08/07/2017 DEMI LINDSAY Lambert Ot V58.66 LONG-TERM (CURRENT) USE OF ASPIRIN 08/07/2017 DEMI LINDSAY Lambert Ot V58.69 OTH MED,LT,CURRENT USE 08/07/2017 DEMI LINDSAY Lambert Ot V67.09 SURGERY FOLLOW-UP, OTHER SURGERY 08/07/2017 LIANA ARIAS Ot 244.9 HYPOTHYROIDISM NOS 08/07/2017 LIANA ARIAS Ot 272.0 PURE HYPERCHOLESTEROLEM 08/07/2017 LIANA ARIAS Ot 401.9 HYPERTENSION NOS 08/07/2017 LIANA ARIAS Ot 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 NOS TYPE VESSEL, NATIV 08/07/2017 LIANA ARIAS Ot 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 W O CEREBRAL IN 08/07/2017 LIANA ARIAS Ot 780.4 DIZZINESS AND GIDDINESS 08/07/2017 LIANA ARIAS Ot V15.82 HISTORY OF TOBACCO USE 08/07/2017 KAYLEY LAMBERT MD Ot 244.9 HYPOTHYROIDISM NOS 08/07/2017 KAYLEY LAMBERT MD Ot 272.4 HYPERLIPIDEMIA NEC/NOS 08/07/2017 KAYLEY LAMBERT MD Ot 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 08/07/2017 KAYLEY LAMBERT MD Ot 397.0 TRICUSPID VALVE DISEASE 08/07/2017 KAYLEY LAMBERT MD Ot 401.9 HYPERTENSION NOS 08/07/2017 KAYLEY LAMBERT MD Ot 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 NOS TYPE VESSEL, NATIV 08/07/2017 KAYLEY LAMBERT MD Ot 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 W O CEREBRAL IN 08/07/2017 KAYLEY LAMBERT MD Ot 780.4 DIZZINESS AND GIDDINESS 08/07/2017 KAYLEY LAMBERT MD Ot V15.82 HISTORY OF TOBACCO USE 08/07/2017 KAYLEY LAMBERT MD Ot 272.0 PURE HYPERCHOLESTEROLEM 08/07/2017 KAYLEY LAMBERT MD Ot 305.1 TOBACCO USE DISORDER 08/07/2017 KAYLEY LAMBERT MD Ot 401.9 HYPERTENSION NOS 08/07/2017 KAYLEY LAMBERT MD Ot 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 NOS TYPE VESSEL, NATIV 08/07/2017 KAYLEY LAMBERT MD Ot 440.0 AORTIC ATHEROSCLEROSIS 08/07/2017 ANTHONY CASTRO PLATER APPRENTICE Ot 305.1 TOBACCO USE DISORDER 08/07/2017 ANTHONY CASTRO S PLATER APPRENTICE Ot 709.9 SKIN DISORDER NOS 08/07/2017 ANTHONY CASTRO PLATER APPRENTICE Ot 787.99 OTHER GI SYSTEM SYMPTOMS 08/07/2017 ANTHONY CASTRO PLATER APPRENTICE Ot V10.82 HX-MALIG SKIN MELANOMA 08/07/2017 KAYLEY LAMBERT MD Ot 272.0 PURE HYPERCHOLESTEROLEM 08/07/2017 KAYLEY LAMBERT MD Ot 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 08/07/2017 KAYLEY LAMBERT MD Ot 397.0 TRICUSPID VALVE DISEASE 08/07/2017 KAYLEY LAMBERT MD Ot 401.9 HYPERTENSION NOS 08/07/2017 KAYLEY LAMBERT MD Ot 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 NOS TYPE VESSEL, NATIV 08/07/2017 KAYLEY LAMBERT MD Ot 429.3 CARDIOMEGALY 08/07/2017 KAYLEY LAMBERT MD Ot 272.0 PURE HYPERCHOLESTEROLEM 08/07/2017 KAYLEY LAMBERT MD Ot 401.9 HYPERTENSION NOS 08/07/2017 KAYLEY LAMBERT MD Ot 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 NOS TYPE VESSEL, NATIV 08/07/2017 KAYLEY LAMBERT MD Ot 427.69 PREMATURE BEATS NEC 08/07/2017 GÉNESIS MIRAMONTES DO Ot 305.1 TOBACCO USE DISORDER 08/07/2017 GÉNESIS MIRAMONTES DO Ot 780.54 HYPERSOMNIA, UNSPECIFIED 08/07/2017 GÉNESIS MIRAMONTES DO Ot 786.09 RESPIRATORY ABNORM NEC 08/07/2017 Ot 486 PNEUMONIA, ORGANISM NOS 08/07/2017 Ot 780.60 FEVER, UNSPECIFIED 08/07/2017 Ot 786.2 COUGH 08/07/2017 DEMI LINDSAY Lambert Ot F17.200 NICOTINE DEPENDENCE, UNSPECIFIED, UNCOMP 08/07/2017 DEMI LINDSAY Lambert Ot Z08 ENCNTR FOR FOLLOW-UP EXAM AFTER TRTMT FO 08/07/2017 DEMI LINDSAY Lambert Ot Z79.899 OTHER PENITENTIARY (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 THERAPY 08/07/2017 DEMI LINDSAY Lambert Ot 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 08/07/2017 LIANA ARIAS Ot E78.0 PURE HYPERCHOLESTEROLEMIA 08/07/2017 GEOFFREY INGRAM, LIANA K Ot I10 ESSENTIAL (PRIMARY) HYPERTENSION 08/07/2017 LIANA ARIAS K Ot I25.10 ATHSCL HEART DISEASE OF [place] CORONARY 08/07/2017 LIANA ARIAS Ot 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 08/07/2017 LIANA ARIAS K Ot E78.0 PURE HYPERCHOLESTEROLEMIA 08/07/2017 GEOFFREY INGRAM LIANA K Ot I10 ESSENTIAL (PRIMARY) HYPERTENSION 08/07/2017 ORALIA ARIASTH K Ot I25.10 ATHSCL HEART DISEASE OF [place] CORONARY 08/07/2017 LIANA ARIAS K Ot 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 08/07/2017 LINDSAY SIMMS Ot F17.200 NICOTINE DEPENDENCE, UNSPECIFIED, UNCOMP 08/07/2017 LINDSAY SIMMS Ot Z08 ENCNTR FOR FOLLOW-UP EXAM AFTER TRTMT FO 08/07/2017 LINDSAY SIMMS Ot Z79.899 OTHER REPAIR TECH (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 THERAPY 08/07/2017 LINDSAY SIMMS Ot 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 08/07/2017 DEMILINDSAY HENRY Ot F17.210 NICOTINE DEPENDENCE, CIGARETTES, UNCOMPL 08/07/2017 LINDSAY SIMMS Ot Z08 ENCNTR FOR FOLLOW-UP EXAM AFTER TRTMT FO 08/07/2017 LINDSAY SIMMS Ot Z79.899 OTHER REPAIR TECH (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 THERAPY 08/07/2017 LINDSAY SIMMS Ot 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 08/07/2017 JANN YADAV MD, Ot F17.210 NICOTINE DEPENDENCE, CIGARETTES, UNCOMPL 08/07/2017 JANN YADAV MD, Ot M54.6 PAIN IN THORACIC SPINE 08/07/2017 JANN YADAV MD Ot R07.89 OTHER CHEST PAIN 08/07/2017 JANN YADAV MD, Ot R07.9 CHEST PAIN, UNSPECIFIED 08/07/2017 JANN YADAV MD, Ot R91.1 SOLITARY PULMONARY NODULE 08/07/2017 JANN YADAV MD, Ot Z79.02 PENITENTIARY (CURRENT) USE OF ANTITHROMBOTI 08/07/2017 JANN YADAV MD, Ot Z79.899 OTHER REPAIR TECH (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 THERAPY 08/07/2017 JANN YADAV MD, Ot Z95.1 PRESENCE OF AORTOCORONARY BYPASS GRAFT 08/07/2017 KAYLEY LAMBERT MD Ot E11.9 TYPE 2 DIABETES MELLITUS WITHOUT COMPLIC 08/07/2017 KAYLEY LAMBERT MD Ot E78.2 MIXED HYPERLIPIDEMIA 08/07/2017 KAYLEY LAMBERT MD Ot I10 ESSENTIAL (PRIMARY) HYPERTENSION 08/07/2017 KAYLEY LAMBERT MD Ot I25.10 ATHSCL HEART DISEASE OF [place] CORONARY 08/07/2017 KAYLEY LAMBERT MD Ot R06.00 DYSPNEA, UNSPECIFIED 08/07/2017 DEAN SHI APRN Ot R06.00 DYSPNEA, UNSPECIFIED 08/07/2017 DEAN SHI TENANT SELECTOR Ot R91.1 SOLITARY PULMONARY NODULE 08/07/2017 DEAN SHI APRN Ot Z72.0 TOBACCO USE 08/07/2017 DEAN SHI TENANT SELECTOR Ot R91.1 SOLITARY PULMONARY NODULE 08/07/2017 LINDSAY SIMMS Ot F17.210 NICOTINE DEPENDENCE, CIGARETTES, UNCOMPL 08/07/2017 LINDSAY SIMMS Ot R91.1 SOLITARY PULMONARY NODULE 08/07/2017 LINDSAY SIMMS Ot Z08 ENCNTR FOR FOLLOW-UP EXAM AFTER TRTMT FO 08/07/2017 LINDSAY SIMMS Ot Z79.899 OTHER PENITENTIARY (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 THERAPY 08/07/2017 LINDSAY SIMMS Ot 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 08/07/2017 LIANA ARIAS Ot E78.2 MIXED HYPERLIPIDEMIA 08/07/2017 LIANA ARIAS Ot I10 ESSENTIAL (PRIMARY) HYPERTENSION 08/07/2017 LIANA ARIAS Ot I25.10 ATHSCL HEART DISEASE OF [place] CORONARY 08/07/2017 LIANA ARIAS Ot 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 08/09/2017 Ot 735.4 OTHER HAMMER TOE 08/09/2017 Ot V72.63 PRE- PROCEDURAL LABORATORY EXAMINATION 08/09/2017 Ot V74.8 SCREEN- BACTERIAL DIS NEC 08/09/2017 Ot 173.31 BASAL CELL CARCINOMA OF SKIN OF OTH UN 08/09/2017 Ot 173.61 BASAL CELL CARCINOMA OF SKIN OF UPPER LI 08/09/2017 Ot 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 08/09/2017 Ot 216.5 BENIGN JENNIFER SKIN TRUNK 08/09/2017 Ot 702.0 ACTINIC KERATOSIS 08/09/2017 Ot 702.19 OTHER SEBORRHEIC KERATOSIS 08/09/2017 Ot 735.4 OTHER HAMMER TOE 08/09/2017 Ot 305.1 TOBACCO USE DISORDER 08/09/2017 Ot 702.0 ACTINIC KERATOSIS 08/09/2017 Ot V10.46 HX- PROSTATIC MALIGNANCY 08/09/2017 Ot V10.82 HX-MALIG SKIN MELANOMA 08/09/2017 Ot V58.65 LONG-TERM( CURRENT)USE OF STEROIDS 08/09/2017 Ot V58.66 LONG-TERM ( CURRENT) USE OF ASPIRIN 08/09/2017 Ot V58.69 OT MED,LT, CURRENT USE 08/09/2017 Ot V67.09 SURGERY FOLLOW-UP, OTHER SURGERY 08/09/2017 MATTHEW LIU, ELO Patiño Ot 735.4 OTHER HAMMER TOE 08/09/2017 ELO CASTRO DPM Ot V72.83 EXAM PRE-OPERATIVE NEC 08/09/2017 ELO CASTRO DPM Ot V74.8 SCREEN-BACTERIAL DIS NEC 08/09/2017 LINDSAY SIMMS Ot 305.1 TOBACCO USE DISORDER 08/09/2017 LINDSAY SIMMS Ot V10.46 HX-PROSTATIC MALIGNANCY 08/09/2017 LINDSAY SIMMS Ot V10.82 HX-MALIG SKIN MELANOMA 08/09/2017 LINDSAY SIMMS Fausto Ot V58.65 LONG-TERM(CURRENT)USE OF STEROIDS 08/09/2017 LINDSAY SIMMS Fausto Ot V58.66 LONG-TERM (CURRENT) USE OF ASPIRIN 08/09/2017 LINDSAY SIMMS Fausto Ot V58.69 OTH MED,LT,CURRENT USE 08/09/2017 LINDSAY SIMMS Fausto Ot V67.09 SURGERY FOLLOW-UP, OTHER SURGERY 08/09/2017 LIANA ARIAS Ot 244.9 HYPOTHYROIDISM NOS 08/09/2017 LIANA ARIAS Ot 272.0 PURE HYPERCHOLESTEROLEM 08/09/2017 LIANA ARIAS Ot 401.9 HYPERTENSION NOS 08/09/2017 LIANA ARIAS Ot 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 NOS TYPE VESSEL, NATIV 08/09/2017 LIANA ARIAS Ot 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 W O CEREBRAL IN 08/09/2017 LIANA ARIAS Ot 780.4 DIZZINESS AND GIDDINESS 08/09/2017 LIANA ARIAS Ot V15.82 HISTORY OF TOBACCO USE 08/09/2017 KAYLEY LAMBERT MD Ot 244.9 HYPOTHYROIDISM NOS 08/09/2017 KAYLEY LAMBERT MD Ot 272.4 HYPERLIPIDEMIA NEC/NOS 08/09/2017 KAYLEY LAMBERT MD Ot 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 08/09/2017 KAYLEY LAMBERT MD Ot 397.0 TRICUSPID VALVE DISEASE 08/09/2017 KAYLEY LAMBERT MD Ot 401.9 HYPERTENSION NOS 08/09/2017 KAYLEY LAMBERT MD Ot 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 NOS TYPE VESSEL, NATIV 08/09/2017 KAYLEY LAMBERT MD Ot 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 W O CEREBRAL IN 08/09/2017 KAYLEY LAMBERT MD Ot 780.4 DIZZINESS AND GIDDINESS 08/09/2017 KAYLEY LAMBERT MD Ot V15.82 HISTORY OF TOBACCO USE 08/09/2017 KAYLEY LAMBERT MD Ot 272.0 PURE HYPERCHOLESTEROLEM 08/09/2017 KAYLEY LAMBERT MD Ot 305.1 TOBACCO USE DISORDER 08/09/2017 KAYLEY LAMBERT MD Ot 401.9 HYPERTENSION NOS 08/09/2017 KAYLEY LAMBERT MD Ot 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 NOS TYPE VESSEL, NATIV 08/09/2017 KAYLEY LAMBERT MD Ot 440.0 AORTIC ATHEROSCLEROSIS 08/09/2017 ANTHONY CASTRO PLATER APPRENTICE Ot 305.1 TOBACCO USE DISORDER 08/09/2017 ANTHONY CASTRO PLATER APPRENTICE Ot 709.9 SKIN DISORDER NOS 08/09/2017 BRIDGETT CASTROIVÁN Marquise PLATER APPRENTICE Ot 787.99 OTHER GI SYSTEM SYMPTOMS 08/09/2017 ANTHONY CASTRO PLATER APPRENTICE Ot V10.82 HX-MALIG SKIN MELANOMA 08/09/2017 KAYLEY LAMBERT MD Ot 272.0 PURE HYPERCHOLESTEROLEM 08/09/2017 KAYLEY LAMBERT MD Ot 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 08/09/2017 KAYLEY LAMBERT MD Ot 397.0 TRICUSPID VALVE DISEASE 08/09/2017 KAYLEY LAMBERT MD Ot 401.9 HYPERTENSION NOS 08/09/2017 KAYLEY LAMBERT MD Ot 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 NOS TYPE VESSEL, NATIV 08/09/2017 KAYLEY LAMBERT MD Ot 429.3 CARDIOMEGALY 08/09/2017 KAYLEY LAMBERT MD Ot 272.0 PURE HYPERCHOLESTEROLEM 08/09/2017 KAYLEY LAMBERT MD Ot 401.9 HYPERTENSION NOS 08/09/2017 KAYLEY LAMBERT MD Ot 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 NOS TYPE VESSEL, NATIV 08/09/2017 KAYLEY LAMBERT MD Ot 427.69 PREMATURE BEATS NEC 08/09/2017 GÉNESIS MIRAMONTES DO Ot 305.1 TOBACCO USE DISORDER 08/09/2017 GÉNESIS MIRAMONTES DO Ot 780.54 HYPERSOMNIA, UNSPECIFIED 08/09/2017 GÉNESIS MIRAMONTES DO Ot 786.09 RESPIRATORY ABNORM NEC 08/09/2017 Ot 486 PNEUMONIA, ORGANISM NOS 08/09/2017 Ot 780.60 FEVER, UNSPECIFIED 08/09/2017 Ot 786.2 COUGH 08/09/2017 LINDSAY SIMMS Ot F17.200 NICOTINE DEPENDENCE, UNSPECIFIED, UNCOMP 08/09/2017 LINDSAY SIMMS Ot Z08 ENCNTR FOR FOLLOW-UP EXAM AFTER TRTMT FO 08/09/2017 LINDSAY SIMMS Ot Z79.899 OTHER REPAIR TECH (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 THERAPY 08/09/2017 LINDSAY SIMMS Ot 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 08/09/2017 GEOFFREY PA, LIANA K Ot E78.0 PURE HYPERCHOLESTEROLEMIA 08/09/2017 GEOFFREY PA, LIANA K Ot I10 ESSENTIAL (PRIMARY) HYPERTENSION 08/09/2017 GEOFFREY PA, LIANA K Ot I25.10 ATHSCL HEART DISEASE OF [place] CORONARY 08/09/2017 GEOFFREY PA, LIANA K Ot 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 08/09/2017 GEOFFREY PA, LIANA K Ot E78.0 PURE HYPERCHOLESTEROLEMIA 08/09/2017 GEOFFREY PA, LIANA K Ot I10 ESSENTIAL (PRIMARY) HYPERTENSION 08/09/2017 GEOFFREY PA, LIANA K Ot I25.10 ATHSCL HEART DISEASE OF [place] CORONARY 08/09/2017 GEOFFREY PA, LIANA K Ot 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 08/09/2017 LINDSAY SIMMS Fausto Ot F17.200 NICOTINE DEPENDENCE, UNSPECIFIED, UNCOMP 08/09/2017 LINDSAY SIMMS Fausto Ot Z08 ENCNTR FOR FOLLOW-UP EXAM AFTER TRTMT FO 08/09/2017 LINDSAY SIMMS Fausto Ot Z79.899 OTHER REPAIR TECH (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 THERAPY 08/09/2017 LINDSAY SIMMS N Ot 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 08/09/2017 DEMI JAROCHOVANDANA Fausto Ot F17.210 NICOTINE DEPENDENCE, CIGARETTES, UNCOMPL 08/09/2017 DEMI JAROCHOVANDANA Fausto Ot Z08 ENCNTR FOR FOLLOW-UP EXAM AFTER TRTMT FO 08/09/2017 LINDSAY SIMMS N Ot Z79.899 OTHER REPAIR TECH (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 THERAPY 08/09/2017 DEMI, JAROCHOVANDANA N Ot 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 08/09/2017 VICENTA CASTANEDA, JANN Chaidez Ot F17.210 NICOTINE DEPENDENCE, CIGARETTES, UNCOMPL 08/09/2017 VICENTA CASTANEDA, JANN Chaidez Ot M54.6 PAIN IN THORACIC SPINE 08/09/2017 VICENTA CASTANEDA, JANN Chaidez Ot R07.89 OTHER CHEST PAIN 08/09/2017 JANN YADAV MD Ot R07.9 CHEST PAIN, UNSPECIFIED 08/09/2017 JANN YADAV MD Ot R91.1 SOLITARY PULMONARY NODULE 08/09/2017 JANN YADAV MD, Ot Z79.02 REPAIR TECH (CURRENT) USE OF ANTITHROMBOTI 08/09/2017 JANN YADAV MD, Ot Z79.899 OTHER REPAIR TECH (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 THERAPY 08/09/2017 JANN YADAV MD, Ot Z95.1 PRESENCE OF AORTOCORONARY BYPASS GRAFT 08/09/2017 KAYLEY LAMBERT MD Ot E11.9 TYPE 2 DIABETES MELLITUS WITHOUT COMPLIC 08/09/2017 KAYLEY LAMBERT MD Ot E78.2 MIXED HYPERLIPIDEMIA 08/09/2017 KAYLEY LAMBERT MD, Ot I10 ESSENTIAL (PRIMARY) HYPERTENSION 08/09/2017 KAYLEY LAMBERT MD, Ot I25.10 ATHSCL HEART DISEASE OF [place] CORONARY 08/09/2017 KAYLEY LAMBERT MD Ot R06.00 DYSPNEA, UNSPECIFIED 08/09/2017 DEAN SHI APRN Ot R06.00 DYSPNEA, UNSPECIFIED 08/09/2017 DEAN SHI TENANT SELECTOR Ot R91.1 SOLITARY PULMONARY NODULE 08/09/2017 DEAN SHI TENANT SELECTOR Ot Z72.0 TOBACCO USE 08/09/2017 DEAN SHI TENANT SELECTOR Ot R91.1 SOLITARY PULMONARY NODULE 08/09/2017 LINDSAY SIMMS Ot F17.210 NICOTINE DEPENDENCE, CIGARETTES, UNCOMPL 08/09/2017 LINDSAY SIMMS Ot R91.1 SOLITARY PULMONARY NODULE 08/09/2017 LINDSAY SIMMS Ot Z08 ENCNTR FOR FOLLOW-UP EXAM AFTER TRTMT FO 08/09/2017 LINDSAY SIMMS Ot Z79.899 OTHER PENITENTIARY (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 THERAPY 08/09/2017 LINDSAY SIMMS Ot 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 08/09/2017 LIANA ARIAS Ot E78.2 MIXED HYPERLIPIDEMIA 08/09/2017 LIANA ARIAS Ot I10 ESSENTIAL (PRIMARY) HYPERTENSION 08/09/2017 LIANA ARIAS Ot I25.10 ATHSCL HEART DISEASE OF [place] CORONARY 08/09/2017 LIANA ARIAS Ot 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 08/09/2017 JANN YADAV MD Ot E03.9 HYPOTHYROIDISM, UNSPECIFIED 08/09/2017 JANN YADAV MD Ot K21.9 GASTRO-ESOPHAGEAL REFLUX DISEASE WITHOUT 08/09/2017 JANN YADAV MD Ot M10.9 GOUT, UNSPECIFIED 08/09/2017 JANN YADAV MD Ot M25.511 PAIN IN RIGHT SHOULDER 08/09/2017 JANN YADAV MD Ot W18.09XA STRIKING AGAINST OTH OBJECT W SUBSEQUENT 08/09/2017 JANN YADAV MD Ot Z79.82 REPAIR TECH (CURRENT) USE OF ASPIRIN 08/09/2017 JANN YADAV MD Ot Z85.46 PERSONAL HISTORY OF MALIGNANT NEOPLASM O 08/09/2017 JANN YADAV MD Ot Z95.5 PRESENCE OF CORONARY ANGIOPLASTY IMPLANT 08/09/2017 JANN YADAV MD Ot Z98.890 OTHER SPECIFIED POSTPROCEDURAL STATES 08/11/2017 JANN YADAV MD Ot E03.9 HYPOTHYROIDISM, UNSPECIFIED 08/11/2017 JANN YADAV MD Ot K21.9 GASTRO-ESOPHAGEAL REFLUX DISEASE WITHOUT 08/11/2017 JANN YADAV MD Ot M10.9 GOUT, UNSPECIFIED 08/11/2017 JANN YADAV MD Ot M25.511 PAIN IN RIGHT SHOULDER 08/11/2017 JANN YADAV MD Ot W18.09XA STRIKING AGAINST OTH OBJECT W SUBSEQUENT 08/11/2017 JANN YADAV MD Ot Z79.82 PENITENTIARY (CURRENT) USE OF ASPIRIN 08/11/2017 JANN YADAV MD Ot Z85.46 PERSONAL HISTORY OF MALIGNANT NEOPLASM O 08/11/2017 JANN YADAV MD Ot Z95.5 PRESENCE OF CORONARY ANGIOPLASTY IMPLANT 08/11/2017 JANN YADAV MD Ot Z98.890 OTHER SPECIFIED POSTPROCEDURAL STATES 08/12/2017 FARRUKH SCOTT MD Ot C61 MALIGNANT NEOPLASM OF PROSTATE 08/12/2017 FARRUKH SCOTT MD Ot J44.9 CHRONIC OBSTRUCTIVE PULMONARY DISEASE, U 08/12/2017 FARRUKH SCOTT MD Ot R59.1 GENERALIZED ENLARGED LYMPH NODES 08/12/2017 FARRUKH SCOTT MD Ot R91.8 OTHER NONSPECIFIC ABNORMAL FINDING OF [place] 09/02/2017 FARRUKH SCOTT MD Ot C61 MALIGNANT NEOPLASM OF PROSTATE 09/02/2017 FARRUKH SCOTT MD Ot J44.9 CHRONIC OBSTRUCTIVE PULMONARY DISEASE, U 09/02/2017 FARRUKH SCOTT MD Ot R59.1 GENERALIZED ENLARGED LYMPH NODES 09/02/2017 FARRUKH SCOTT MD Ot R91.8 OTHER NONSPECIFIC ABNORMAL FINDING OF [place] 09/10/2017 FARRUKH SCOTT MD Ot C61 MALIGNANT NEOPLASM OF PROSTATE 09/10/2017 FARRUKH SCOTT MD Ot J44.9 CHRONIC OBSTRUCTIVE PULMONARY DISEASE, U 09/10/2017 FARRUKH SCOTT MD Ot R59.1 GENERALIZED ENLARGED LYMPH NODES 09/10/2017 FARRUKH SCOTT MD Ot R91.8 OTHER NONSPECIFIC ABNORMAL FINDING OF [place] 09/11/2017 FARRUKH SCOTT MD Ot M16.0 BILATERAL PRIMARY OSTEOARTHRITIS OF HIP 09/16/2017 FARRUKH SCOTT MD Ot M16.0 BILATERAL PRIMARY OSTEOARTHRITIS OF HIP 09/25/2017 LINDSAY SIMMS Ot I10 ESSENTIAL (PRIMARY) HYPERTENSION 09/25/2017 LINDSAY SIMMS Ot Z85.46 PERSONAL HISTORY OF MALIGNANT NEOPLASM O 2017 FARRUKH SCOTT MD Ot M16.0 BILATERAL PRIMARY OSTEOARTHRITIS OF HIP 10/07/2017 MARVIN GROVE MD Ot M19.011 PRIMARY OSTEOARTHRITIS, RIGHT SHOULDER 10/07/2017 MARVIN GROVE MD Ot W19.XXXA UNSPECIFIED FALL, INITIAL ENCOUNTER 10/08/2017 FARRUKH SCOTT MD Ot M16.0 BILATERAL PRIMARY OSTEOARTHRITIS OF HIP 10/16/2017 LINDSAY SIMMS Ot I10 ESSENTIAL (PRIMARY) HYPERTENSION 10/16/2017 LINDSAY SIMMS Ot Z85.46 PERSONAL HISTORY OF MALIGNANT NEOPLASM O 10/22/2017 LINDSAY SIMMS Ot I10 ESSENTIAL (PRIMARY) HYPERTENSION 10/22/2017 LINDSAY SIMMS Ot Z85.46 PERSONAL HISTORY OF MALIGNANT NEOPLASM O 10/28/2017 MARVIN GROVE MD Ot M19.011 PRIMARY OSTEOARTHRITIS, RIGHT SHOULDER 10/28/2017 MARVIN GROVE MD Ot W19.XXXA UNSPECIFIED FALL, INITIAL ENCOUNTER 11/05/2017 MAINE CASTANEDA, MARVIN Page Ot M19.011 PRIMARY OSTEOARTHRITIS, RIGHT SHOULDER 11/05/2017 MAINE CASTANEDA, MARVIN Page Ot W19.XXXA UNSPECIFIED FALL, INITIAL ENCOUNTER 11/26/2017 Ot E03.9 HYPOTHYROIDISM, UNSPECIFIED 11/26/2017 Ot E11.9 TYPE 2 DIABETES MELLITUS WITHOUT COMPLIC 11/26/2017 Ot E78.2 MIXED HYPERLIPIDEMIA 11/26/2017 Ot I10 ESSENTIAL ( PRIMARY) HYPERTENSION 11/26/2017 Ot I25.10 ATHSCL HEART DISEASE OF [place] CORONARY 11/26/2017 Ot I65.29 OCCLUSION AND STENOSIS OF UNSPECIFIED CA 11/26/2017 Ot I73.9 PERIPHERAL VASCULAR DISEASE, UNSPECIFIED 11/26/2017 Ot I77.811 ABDOMINAL AORTIC ECTASIA 11/26/2017 Ot M19.91 PRIMARY OSTEOARTHRITIS, UNSPECIFIED SITE 11/26/2017 Ot M79.661 PAIN IN RIGHT LOWER LEG 11/26/2017 Ot M79.662 PAIN IN LEFT LOWER LEG 11/26/2017 Ot Z79.899 OTHER PENITENTIARY (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 THERAPY 11/26/2017 Ot Z85.46 PERSONAL HISTORY OF MALIGNANT NEOPLASM O 11/26/2017 Ot 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 11/26/2017 Ot Z95.1 PRESENCE OF AORTOCORONARY BYPASS GRAFT Procedures There is no data. Results Test [...] i.cardiac measurement (mass/volume) < ng/ mL <0.30 [id number] - 08/11/17 10:32 Serum or plasma urea nitrogen measurement (mass/volume) 16 mg/dL 7-18 Serum or plasma creatinine measurement (mass/volume) 1.18 mg/dL 0.60-1.30 Serum or plasma urea nitrogen/creatinine mass ratio 14 NRG Serum or plasma creatinine measurement with calculation of estimated glomerular filtration rate 60 NRG Encounters ACCT No. Visit Date/Time Discharge Status Pt. Type Provider Facility Loc./Unit Complaint [id number] 10/06/2017 11:08:00 10/06/2017 23:59:59 CLS Outpatient MARVIN GROVE MD [facility] RAD RT SHOULDER PAIN [id number] 09/23/2017 13:06:00 09/23/2017 23:59:59 CLS Outpatient LINDSAY SIMMS [facility] ONC [id number] 09/10/2017 10:58:00 09/10/2017 23:59:59 CLS Outpatient FARRUKH SCOTT MD [facility] RAD BILATERAL HIP PAIN [id number] 08/11/2017 10:24:00 08/11/2017 23:59:59 CLS Outpatient FARRUKH SCOTT MD [facility] RAD COPD [id number] 08/09/2017 02:24:00 08/09/2017 03:26:00 DIS Emergency JANN YADAV MD [facility] ER RT SHOULDER PAIN [id number] 01/03/2017 10:01:00 01/03/2017 23:59:59 CLS Outpatient DEAN SHI [facility] [facility] RAD R91.1 LUNG NODULE [id number] 12/06/2016 13:41:00 12/06/2016 23:59:59 CLS Outpatient LIANA ARIAS [facility] CARD CAD I25.10 [id number] 11/25/2016 09:01:00 11/25/2016 23:59:59 CLS Outpatient LINDSAY SIMMS [facility] ONC [id number] 10/09/2016 10:22:00 10/18/2016 11:00:00 DIS Outpatient KAYLEY LAMBERT MD [facility] CR STABLE ANGINA [id number] 09/18/2016 11:28:00 10/06/2016 00:01:00 DIS Outpatient KAYLEY LAMBERT MD [facility] CR STABLE ANGINA [id number] 08/21/2016 15:52:00 08/21/2016 23:59:59 CLS Outpatient DEAN SHI TENANT SELECTOR [facility] RT R06.00 DYSPNEA [id number] 08/14/2016 11:46:00 08/14/2016 23:59:59 CLS Outpatient KAYLEY LAMBERT MD [facility] CARD I25.10 [id number] 07/18/2016 10:57:00 07/18/2016 23:59:59 CLS Emergency JANN YADAV MD [facility] ER CHEST PAIN [id number] 04/17/2016 07:52:00 04/19/2016 09:30:00 DIS Outpatient KAYLEY LAMBERT MD [facility] CATH CAD,HTN [id number] 02/13/2016 12:57:00 02/13/2016 23:59:59 CLS Outpatient LINDSAY SIMMS [facility] ONC [id number] 01/15/2016 12:51:00 01/15/2016 23:59:59 CLS Outpatient LINDSAY SIMMS [facility] ONC [id number] 11/22/2015 07:47:00 11/22/2015 23:59:59 CLS Outpatient TANG-CHRISTIAN PA LIANA K [facility] CARD CAD,CAROTID STENOSIS, HTN [id number] 10/19/2015 08:41:00 10/19/2015 23:59:59 CLS Outpatient CLYDE-CHRISTIAN PALIANA K [facility] CARD CAD,CAROTID STENOSIS,HTN [id number] 01/12/2015 12:57:00 01/12/2015 23:59:59 CLS Outpatient LINDSAY SIMMS [facility] ONC [id number] 04/18/2014 15:32:00 04/18/2014 23:59:59 CLS Outpatient GÉNESIS MIRAMONTES DO [facility] RT SNORING EXCESSIVE DAYTIME SLEEPINESS HTN DYSPNEA [id number] 03/07/2014 08:23:00 03/07/2014 23:59:59 CLS Outpatient KAYLEY LAMBERT MD [facility] CARD CAD,KATELIN,HTN [id number] 03/02/2014 10:07:00 03/02/2014 23:59:59 CLS Outpatient KAYLEY LAMBERT MD [facility] CARD CAD,KATELIN,HTN [id number] 01/13/2014 14:18:00 01/13/2014 14:46:00 DIS Emergency MELIZA DELGADO APRN [facility] ER FINGER LACERATION [id number] 01/12/2014 12:46:00 01/12/2014 23:59:59 CLS Outpatient ANTHONY CASTRO [facility] ONC [id number] 11/30/2013 10:27:00 11/30/2013 13:02:00 DIS Emergency NARENDRA CASTANEDA, RADHA Be [facility] ER LIGHTHEADED/SYNCOPE [id number] 09/24/2013 14:00:00 10/07/2013 17:00:00 DIS Outpatient FESTUS AZULP [facility] REHAB L LEG AND THIGH PAIN [id number] 08/24/2013 08:58:00 08/24/2013 23:59:59 CLS Outpatient KAYLEY LAMBERT MD [facility] RAD CAD,HTN, [id number] 02/09/2013 11:36:00 02/09/2013 23:59:59 CLS Outpatient LIANA ARIAS [facility] RAD CAD DIZZINESS ,HTN, [id number] 02/05/2013 09:06:00 02/05/2013 23:59:59 CLS Outpatient KAYLEY LAMBERT MD [facility] CARD CAD,DIZZINESS,HTN [id number] 01/11/2013 13:07:00 01/11/2013 23:59:59 CLS Outpatient LINDSAY SIMMS N [facility] ONC [id number] 12/25/2012 07:30:00 12/25/2012 12:00:00 DIS Outpatient ELO CASTRO DPM [facility] SDC HAMMERTOE 3RD AND 4TH RIGHT [id number] 12/22/2012 09:51:00 12/22/2012 23:59:59 CLS Outpatient ELO CASTRO DPM [facility] PREOP HAMMERTOES 3RD AND 4TH RIGHT [id number] 02/13/2018 11:45:00 ACT Emergency ZOFIA CASTANEDA, LOUANN Mooney [facility] ER HIGH BP [id number] 11/26/2017 08:04:00 Document Registration [id number] 06/06/2014 11:02:00 Document Registration [id number] 03/01/2014 09:33:00 Document Registration [id number] 03/01/2014 09:33:00 Document Registration [id number] 07/16/2012 13:47:00 Document Registration [id number] 05/28/2012 06:00:00 Document Registration [id number] 05/11/2012 12:00:00 Document Registration [id number] 01/13/2012 13:09:00 Document Registration [id number] 10/21/2011 12:30:00 Document Registration [id number] 01/14/2011 13:33:00 Document Registration [id number] 09/12/2010 10:10:00 Document Registration [id number] 12/14/2009 08:48:00 Document Registration [id number] 10/30/2009 07:03:00 Document Registration [id number] 03/15/2009 00:00:00 Document Registration [id number] 12/27/2008 12:52:00 Document Registration [id number] 12/14/2008 09:32:00 Document Registration [id number] 01/12/2015 14:15:51 ACT Document Registration [id number] 02/04/2017 13:59:03 02/04/2017 23:59:59 [facility]
[2018-02-13] MEDS ORDERED: DILTIAZEM IV FOR DRIP 125 MG in NS (IVPB) 100 ML IV SCH (12:15)
[2018-02-13 12:21] LABS: BASOPHILS % (AUTO) 1 % (0-10); EOSINOPHILS # (AUTO) 0.3 10^3/uL (0.0-0.3); EOSINOPHILS % (AUTO) 4 % (0-10); HEMATOCRIT 42 % (40-54); HEMOGLOBIN 14.5 G/DL (13.3-17.7); LYMPHOCYTES # (AUTO) 1.8 X 10^3 (1.0-4.0); LYMPHOCYTES % (AUTO) 22 % (12-44); MEAN CORPUSCULAR HEMOGLOBIN 35 PG (25-34); MEAN CORPUSCULAR HGB CONC 34 G/DL (32-36); MEAN CORPUSCULAR VOLUME 101 FL (80-99); MEAN PLATELET VOLUME 9.3 FL (7.4-10.4); MONOCYTES # (AUTO) 0.9 X 10^3 (0.0-1.0); MONOCYTES % (AUTO) 11 % (0-12); NEUTROPHILS # (AUTO) 5.1 X 10^3 (1.8-7.8); NEUTROPHILS % (AUTO) 63 % (42-75); PLATELET COUNT 209 10^3/uL (130-400); RED BLOOD COUNT 4.18 10^6/uL (4.35-5.85); RED CELL DISTRIBUTION WIDTH 13.7 % (10.0-14.5); WHITE BLOOD COUNT 8.1 10^3/uL (4.3-11.0)
[2018-02-13 12:27] LABS: PROTHROMBIN TIME PATIENT 13.4 SEC (12.2-14.7)
[2018-02-13 12:37] LABS: ALBUMIN 4.5 GM/DL (3.2-4.5); BILIRUBIN,TOTAL 0.8 MG/DL (0.1-1.0); CALCIUM 9.7 MG/DL (8.5-10.1); CREATININE SERUM 1.29 MG/DL (0.60-1.30); MAGNESIUM 2.3 MG/DL (1.8-2.4); POTASSIUM 4.6 MMOL/L (3.6-5.0); TOTAL PROTEIN 7.2 GM/DL (6.4-8.2)
--- NOTE | 2018-02-13 12:54 | Diagnostic Imaging Report ---
INDICATION: High blood pressure. TIME OF EXAM: 12:31 p.m. Correlation is made with prior chest from 11/26/2017. The heart is enlarged. There are changes of median sternotomy. Congestive changes are present in both lungs. There are some prominent interstitial markings and central vascularity. No parenchymal consolidation is seen. No effusion or pneumothorax is seen. IMPRESSION: Findings suggestive of a mild congestive failure. Dictated by: Dictated on workstation # [id number]
[2018-02-13 12:59] LABS: FREE T4 (FREE THYROXINE) 0.97 NG/DL (0.70-1.48); MYOGLOBIN SERUM 72.3 NG/ML (10.0-92.0)
--- NOTE | 2018-02-13 13:07 | ED Cardiac General ---
History of Present Illness General Chief Complaint: Cardiac/General Problems Stated Complaint: HIGH BP Nursing Triage Note: PT PRESENTS TO ED FROM [facility] OFFICE FOR TACHYCARDIA. PT REPORTS HE HAS HAD TROUBLE WITH HIS BP AND TACHYCARDIA SINCE A MEDICATION CHANGE A COUPLE WEEKS AGO. PT DENIES CP Source: patient, old records Exam Limitations: no limitations History of Present Illness Date Seen by Provider: Feb 13, 2018 Time Seen by Provider: 11:50 Initial Comments This 77-year-old gentleman presents to the emergency room as referred by Dr. Subramanian's office. He has been struggling with erratic blood pressures recently and has been adjusting medications. He presented to Dr. Subramanian's office today where he was noted to have tachycardia and marginal blood pressures. He was noted to be in a narrow complex regular tachycardic rhythm on arrival. Adenosine was administered by Dr. Caballero and revealed an atrial flutter. Patient denied any chest pain except for during the administration of adenosine. He has known coronary artery disease but denies ever having arrhythmias. However, chart does indicate a prior history of atrial fibrillation. He is not anticoagulated. Patient states he has been having trouble with rapid heart rate and irregular blood pressures for couple of weeks. Chart was reviewed which revealed a cardiac catheterization in 2016 in which a stent was placed in the ostium of the left subclavian artery. He also had a stress test in August 2016 after the catheterization. He demonstrated LV hypokinesis with an EF of 41 percent. Allergies and Home Medications Allergies Coded Allergies: No Known Drug Allergies (Verified , 02/23/08) Home Medications Allopurinol 100 Mg Tablet, 200 MG PO DAILY, (Reported) Allopurinol 100 Mg Tablet, 100 MG PO HS, (Reported) Aspirin 81 Mg Tabec, 81 MG PO HS, (Reported) Atorvastatin Calcium 40 Mg Tablet, 40 MG PO HS, (Reported) Calcium Carbonate/Vitamin D3 1 Each Tablet, 1 TAB PO HS, (Reported) Clopidogrel Bisulfate 75 Mg Tablet, 75 MG PO HS, (Reported) Doxazosin Mesylate 4 Mg Tablet, 4 MG PO HS, (Reported) Flaxseed Oil 1,000 Mg Capsule, 3,500 MG PO HS, (Reported) Hydrocodone/Acetaminophen 1 Each Tablet, 1-2 TAB PO Q4H PRN for PAIN, (Reported) Levothyroxine Sodium 50 Mcg Tablet, 50 MCG PO DAILY, (Reported) Magnesium Oxide 400 Mg Capsule, 400 MG PO DAILY, (Reported) Metoprolol Succinate 25 Mg Tab.sr.24h, 25 MG PO DAILY, (Reported) Multivitamin 1 Each Tablet, 1 EACH PO DAILY, (Reported) Omeprazole 20 Mg Capsule.dr, 20 MG PO BID, (Reported) Potassium Gluconate 99 Mg Tablet, 99 MG PO DAILY, (Reported) Ranolazine 1,000 Mg Tab.er.12h, 1,000 MG PO BID, (Reported) Vitamin B Complex & Vit C No.4 150 Mg Tablet, 150 MG PO DAILY, (Reported) Patient Home Medication List Home Medication List Reviewed: Yes Review of Systems Review of Systems Constitutional: no symptoms reported EENTM: No Symptoms Reported Respiratory: No Symptoms Reported Cardiovascular: See HPI Gastrointestinal: No Symptoms Reported Genitourinary: No Symptoms Reported Musculoskeletal: no symptoms reported Skin: no symptoms reported Psychiatric/Neurological: No Symptoms Reported Endocrine: No Symptoms Reported Hematologic/Lymphatic: No Symptoms Reported Past Hgsdvsr-Oodlgd-Djehvm Hx Past Med/Social Hx: Reviewed Nursing Past Med/Soc Hx Patient Social History Alcohol Use: Denies Use Recreational Drug Use: No Smoking Status: Current Everyday Smoker Type Used: Cigarettes Recent Foreign Travel: No Contact w/Someone Who Travel: No Recent Infectious Disease Expo: No Recent Hopitalizations: Yes Immunizations Up To Date Tetanus Booster (TDap): More than 5yrs Date of Pneumonia Vaccine: Nov 12, 2016 Date of Influenza Vaccine: Dec 19, 2015 Past Medical History Surgeries: Yes (BACK SURGERY, HERNIA REPAIR) CABG, Coronary Stent, Orthopedic Respiratory: No Cardiac: Yes Atrial Fibrillation, Coronary Artery Disease, Hypertension Neurological: No Reproductive Disorders: No Prostate Problems Gastrointestinal: Yes Gastroesophageal Reflux Musculoskeletal: No Arthritis, Chronic Back Pain, Gout Endocrine: Yes Hypothyroidsim Cancer: No Prostate Psychosocial: No Integumentary: No Blood Disorders: No Family Medical History Reviewed Nursing Family Hx Cardiovascular disease 19 MOTHER Myocardial infarction 19 FATHER Physical Exam Vital Signs Vital Signs - First Documented 02/13/18 12:15 Temp 97.2 Pulse 146 Resp 12 B/P (MAP) 115/85 (95) Pulse Ox 97 Capillary Refill : Less Than 3 Seconds Height, Weight, BMI Height: 6'0.00" Weight: 210lbs. 0.0oz. 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 Norm as Tested Skin: Normal Color, Warm/Dry Progress/Results/Core Measures Results/Orders Lab Results Laboratory Tests Test 02/13/18 11:58 Range/Units White Blood Count 8.1 4.3-11.0 10^3/uL Red Blood Count 4.18 L 4.35-5.85 10^6/uL Hemoglobin 14.5 13.3-17.7 G/DL Hematocrit 42 40-54 % Mean Corpuscular Volume 101 H 80-99 FL Mean Corpuscular Hemoglobin 35 H 25-34 PG Mean Corpuscular Hemoglobin Concent 34 32-36 G/DL Red Cell Distribution Width 13.7 10.0-14.5 % Platelet Count 209 130-400 10^3/uL Mean Platelet Volume 9.3 7.4-10.4 FL Neutrophils (%) (Auto) 63 42-75 % Lymphocytes (%) (Auto) 22 12-44 % Monocytes (%) (Auto) 11 0-12 % Eosinophils (%) (Auto) 4 0-10 % Basophils (%) (Auto) 1 0-10 % Neutrophils # (Auto) 5.1 1.8-7.8 X 10^3 Lymphocytes # (Auto) 1.8 1.0-4.0 X 10^3 Monocytes # (Auto) 0.9 0.0-1.0 X 10^3 Eosinophils # (Auto) 0.3 0.0-0.3 10^3/uL Basophils # (Auto) 0.0 0.0-0.1 10^3/uL Prothrombin Time 13.4 12.2-14.7 SEC INR Comment 1.0 0.8-1.4 Activated Partial Thromboplast Time 26 24-35 SEC Sodium Level 136 135-145 MMOL/L Potassium Level 4.6 3.6-5.0 MMOL/L Chloride Level 105 98-107 MMOL/L Carbon Dioxide Level 20 L 21-32 MMOL/L Anion Gap 11 5-14 MMOL/L Blood Urea Nitrogen 22 H 7-18 MG/DL Creatinine 1.29 0.60-1.30 MG/DL Estimat Glomerular Filtration Rate 54 BUN/Creatinine Ratio 17 Glucose Level 129 H 70-105 MG/DL Calcium Level 9.7 8.5-10.1 MG/DL Corrected Calcium 9.3 8.5-10.1 MG/DL Magnesium Level 2.3 1.8-2.4 MG/DL Total Bilirubin 0.8 0.1-1.0 MG/DL Aspartate Amino Transf (AST/SGOT) 22 5-34 U/L Alanine Aminotransferase (ALT/SGPT) 14 0-55 U/L Alkaline Phosphatase 119 40-136 U/L Myoglobin 72.3 10.0-92.0 NG/ML Troponin I 1.06 *H <0.30 NG/ML Total Protein 7.2 6.4-8.2 GM/DL Albumin 4.5 3.2-4.5 GM/DL Thyroid Stimulating Hormone (TSH) 1.89 0.35-4.94 UIU/ML Free Thyroxine 0.97 0.70-1.48 NG/DL My Orders Orders - RADHA MACKEY MD Cbc With Automated Diff (02/13/18 12:13) Magnesium (02/13/18 12:13) Chest 1 View, Ap/Pa Only (02/13/18 12:13) Ekg Tracing (02/13/18 12:13) Cardiac Profile 1 (02/13/18 12:13) Comprehensive Metabolic Panel (02/13/18 12:13) Myoglobin Serum (02/13/18 12:13) Protime With Inr (02/13/18 12:13) Partial Thromboplastin Time (02/13/18 12:13) O2 (02/13/18 12:13) Monitor-Rhythm Ecg Trace Only (02/13/18 12:13) Lipid Panel (02/14/18 06:00) Saline Lock/Iv-Start (02/13/18 12:13) Ns (Ivpb) (Sodium C... W/Diltiazem Iv Fo (02/13/18 12:15) Free T4 (Free Thyroxine) (02/13/18 11:58) Thyroid Stimulating Hormone (02/13/18 11:58) Aspirin Chewable Tablet (Baby Aspirin Ch (02/13/18 13:30) Apixaban Tablet (Eliquis Tablet) (02/13/18 13:30) Heart Healthy (02/13/18 Lunch) Medications Given in ED Current Medications Medications Dose Ordered Sig/Claudette Route Start Time Stop Time Status Last Admin Dose Admin Adenosine 6 mg STK-MED ONCE IV 02/13/18 11:55 02/13/18 11:56 DC 02/13/18 11:58 12 MG Apixaban 5 mg ONCE ONCE PO 02/13/18 13:30 02/13/18 13:31 DC 02/13/18 13:39 5 MG Aspirin 324 mg ONCE ONCE PO 02/13/18 13:30 02/13/18 13:31 DC 02/13/18 13:39 324 MG Sodium Chloride 1,000 ml @ ud STK-MED ONCE .ROUTE 02/13/18 11:57 02/13/18 11:59 DC 02/13/18 11:57 999 MLS/HR Vital Signs/I&O 02/13/18 02/13/18 12:15 12:42 Temp 97.2 96.7 Pulse 146 122 Resp 12 17 B/P (MAP) 115/85 (95) 109/63 Pulse Ox 97 95 Blood Pressure Mean: 78 Progress Progress Note #1: Time: 13:09 Progress Note Care of this patient was assumed from Dr. Caballero who briefly salt the patient just prior to my shift. Patient's rhythm appeared to be SVT versus atrial flutter on initial EKG. Adenosine was given which unmasked atrial flutter. Dr. Caballero discussed the case with Dr. Subramanian who recommended Cardizem drip or Digoxin if patient's blood pressure would not tolerate the Cardizem. Patient received a liter of IV fluid prior to starting Cardizem drip. Heart rate is erratic but is responding to the Cardizem drip and is sometimes as low as the 90s. Troponin returned elevated. Patient denies any chest pain except for a few seconds after adenosine administration. Progress Note #2: Time: 13:51 Progress Note Patient has been stable on Cardizem drip. It was titrated up to 8 mg/m. Heart rate is still erratic but improving. Blood pressures are stable. Case was discussed with Dr. Davenport who agrees with Martin houston and requested Eliquis and aspirin be given as well. He was notified of the elevated troponin. EKG #1: EKG Time: 11:50 Rate: 146 Comment Regular narrow complex tachycardia, SVT versus atrial flutter. No overt ST elevation or depression. EKG #2: EKG Time: 11:58 Rate: 125 Rhythm: A Fib/Flutter Comment Atrial flutter with RVR and no overt ST elevation or depression. This EKG was obtained after administration of adenosine. Diagnostic Imaging Diagonstic Imaging: Xray Plain Films/CT/US/NM/MRI: chest Comments Chest x-ray viewed by me and report reviewed. See report below: NAME: TENISHA ESCAMILLA [facility] REC#: [id number] PT STATUS: REG ER : 1940 PHYSICIAN: RADHA MACKEY MD ADMIT DATE: 02/13/18/ER Draft Date of Exam:02/13/18 CHEST 1 VIEW, AP/PA ONLY INDICATION: High blood pressure. TIME OF EXAM: 12:31 p.m. Correlation is made with prior chest from 11/26/2017. The heart is enlarged. There are changes of median sternotomy. Congestive changes are present in both lungs. There are some prominent interstitial markings and central vascularity. No parenchymal consolidation is seen. No effusion or pneumothorax is seen. IMPRESSION: Findings suggestive of a mild congestive failure. Dictated on workstation # [id number] Dict: 02/13/18 1250 Trans: 02/13/18 1253 [facility] [id number] Interpreted by: ANKUSH STOVALL MD Departure Communication (Admissions) Time/Spoke to Admitting Phy: 13:25 Dr. Hi Time/Spoke to Consulting Phy: 13:20 Dr. Davenport Impression Primary Impression: Atrial flutter with rapid ventricular response Additional Impression: Elevated troponin Disposition: ADMITTED INPATIENT Condition: Improved Admissions Decision to Admit Reason: Admit from ER (General) Decision to Admit/Date: Feb 13, 2018 Time/Decision to Admit Time: 12:15 Departure-Patient Inst. Referrals: FARRUKH SCOTT MD (PCP/Family) Primary Care Physician RADHA MACKEY MD Feb 13, 2018 13:07
[2018-02-13] MEDS ORDERED: APIXABAN 5 MG (ELIQUIS) TABLET PO ONE (13:30)
[2018-02-13] MEDS ORDERED: ASPIRIN 81 MG CHEW (CHILDREN'S ASA) PO ONE (13:30)
--- NOTE | 2018-02-13 14:00 | Cardiology History & Physical ---
[facility]-Cardiology Cardiology H&P Date of Admission 02-13-18 Primary Care Physician Pepper Baeza MD Attending Physician Consulting Physician [facility] Primary Line And Frame Poler : Dr. Subramanian JUA-Jfpzcp-Yidtco Hx Patient Social History Alcohol Use: Denies Use Recreational Drug Use: No Smoking Status: Current Everyday Smoker Type Used: Cigarettes Recent Foreign Travel: No Recent Infectious Disease Expo: No Immunizations Up To Date Tetanus Booster (TDap): More than 5yrs Date of Pneumonia Vaccine: Nov 12, 2016 Date of Influenza Vaccine: Dec 19, 2015 Past Medical History PMH As described under Assessment. Family Medical History Family History: Cardiovascular disease 19 MOTHER Myocardial infarction 19 FATHER Allergies and Home Medications Allergies Coded Allergies: No Known Drug Allergies (Verified , 02/23/08) Home Medications Allopurinol 100 Mg Tablet, 200 MG PO DAILY, (Reported) Allopurinol 100 Mg Tablet, 100 MG PO HS, (Reported) Aspirin 81 Mg Tabec, 81 MG PO HS, (Reported) Atorvastatin Calcium 40 Mg Tablet, 40 MG PO HS, (Reported) Calcium Carbonate/Vitamin D3 1 Each Tablet, 1 TAB PO HS, (Reported) Clopidogrel Bisulfate 75 Mg Tablet, 75 MG PO HS, (Reported) Doxazosin Mesylate 4 Mg Tablet, 4 MG PO HS, (Reported) Flaxseed Oil 1,000 Mg Capsule, 3,500 MG PO HS, (Reported) Hydrocodone/Acetaminophen 1 Each Tablet, 1-2 TAB PO Q4H PRN for PAIN, (Reported) Levothyroxine Sodium 50 Mcg Tablet, 50 MCG PO DAILY, (Reported) Magnesium Oxide 400 Mg Capsule, 400 MG PO DAILY, (Reported) Metoprolol Succinate 25 Mg Tab.sr.24h, 25 MG PO DAILY, (Reported) Multivitamin 1 Each Tablet, 1 EACH PO DAILY, (Reported) Omeprazole 20 Mg Capsule.dr, 20 MG PO BID, (Reported) Potassium Gluconate 99 Mg Tablet, 99 MG PO DAILY, (Reported) Ranolazine 1,000 Mg Tab.er.12h, 1,000 MG PO BID, (Reported) Vitamin B Complex & Vit C No.4 150 Mg Tablet, 150 MG PO DAILY, (Reported) Physical Exam-Cardiology Physical Exam Vital Signs/I&O 02/13/18 02/13/18 12:15 12:42 Temp 97.2 96.7 Pulse 146 122 Resp 12 17 B/P (MAP) 115/85 (95) 109/63 Pulse Ox 97 95 Capillary Refill : Less Than 3 Seconds Data Review Labs Laboratory Tests 02/13/18 11:58: White Blood Count 8.1, Red Blood Count 4.18L, Hemoglobin 14.5, Hematocrit 42, Mean Corpuscular Volume 101H, Mean Corpuscular Hemoglobin 35H, Mean Corpuscular Hemoglobin Concent 34, Red Cell Distribution Width 13.7, Platelet Count 209, Mean Platelet Volume 9.3, Neutrophils (%) (Auto) 63, Lymphocytes (%) (Auto) 22, Monocytes (%) (Auto) 11, Eosinophils (%) (Auto) 4, Basophils (%) (Auto) 1, Neutrophils # (Auto) 5.1, Lymphocytes # (Auto) 1.8, Monocytes # (Auto) 0.9, Eosinophils # (Auto) 0.3, Basophils # (Auto) 0.0, Prothrombin Time 13.4, INR Comment 1.0, Activated Partial Thromboplast Time 26, Sodium Level 136, Potassium Level 4.6, Chloride Level 105, Carbon Dioxide Level 20L, Anion Gap 11 , Blood Urea Nitrogen 22H, Creatinine 1.29, Estimat Glomerular Filtration Rate 54, BUN/Creatinine Ratio 17, Glucose Level 129H, Calcium Level 9.7, Corrected Calcium 9.3, Magnesium Level 2.3, Total Bilirubin 0.8, Aspartate Amino Transf ( AST/SGOT) 22, Alanine Aminotransferase (ALT/SGPT) 14, Alkaline Phosphatase 119, Myoglobin 72.3, Troponin I 1.06*H, Total Protein 7.2, Albumin 4.5, Thyroid Stimulating Hormone (TSH) 1.89, Free Thyroxine 0.97 Radiology NAME: TENISHA ESCAMILLA [facility] REC#: [id number] PT STATUS: REG ER : 1940 PHYSICIAN: RADHA MACKEY MD ADMIT DATE: 02/13/18/ER Draft Date of Exam:02/13/18 CHEST 1 VIEW, AP/PA ONLY INDICATION: High blood pressure. TIME OF EXAM: 12:31 p.m. Correlation is made with prior chest from 11/26/2017. The heart is enlarged. There are changes of median sternotomy. Congestive changes are present in both lungs. There are some prominent interstitial markings and central vascularity. No parenchymal consolidation is seen. No effusion or pneumothorax is seen. IMPRESSION: Findings suggestive of a mild congestive failure. Dictated on workstation # [id number] Dict: 02/13/18 1250 Trans: 02/13/18 1253 [facility] [id number] Interpreted by: ANKUSH STOVALL MD Electronically signed by: A/P-Cardiology Assessment/Admission Diagnosis New onset of a-flutter with RVR (EKG of 02-13-18) Elevated troponin with underlying known CAD in the presence of tachycardia Coronary artery disease, status post CABG x3 in 2001. Recent cardiac catheterization done April 2016 revealing a difficult anatomy was unable to evaluate left coronary system done within the show left heart catheterization. Patent vein graft to the diagonal artery and obtuse marginal branch artery. Occluded small RCA with collateral filling the distal right from the left system. Another angiogram to RODRIGUEZ on April 18, 2016 revealing patent RODRIGUEZ to LAD. Patient did have severe stenosis of the ostium of the left subclavian artery. Underwent stenting to the left subclavian artery per Dr. Subramanian Stress test August 2016 did not show any ischemia, patient has prominent left ventricle with diffuse left ventricular hypokinesia with ejection fraction 41 percent which has been present since November [address]. [address] Subramanian Most recent 2-D echocardiogram done November 2016 revealed EF 50-55% per Dr. Subramanian Left subclavian artery stenosis-patient underwent left subclavian angiography with left subclavian balloon angioplasty and left subclavian stenting on using Omnilink 08 stent 9 x 29 x 80 mm with lesion well covered in significant reduction in stenosis severity noted. There was 5-10 percent residue stenosis, however, there were a few stent struts protruding into the aortic arch. Maintained on Plavix and ASA. Peripheral angiogram was done on November 26, 2017 which showed mild peripheral arterial disease, slightly tortuous iliac artery with no obstructive disease down to the foot and slightly ectatic abdominal aorta per Dr. Subramanian Hypertension, labile hypertension. Hyperlipidemia, lipid profile done on November 26, 2017 showing total cholesterol 135, triglyceride 187, HDL 33, LDL 67 Tobaccoism-educated on the importance of smoking cessation. Carotid artery stenosis-mild nonobstructive disease per carotid duplex done in July 2017 History of malignant melanoma, followed and managed by Dr. Nelson History of prostate cancer, followed and managed by Dr. Nelson. Pulmonary nodule noted incidentally on a CT scan done on July 18, 2016, recommended reevaluating CT scan in 4-6 months, followed and managed by Dr. Abbey Nelson and Dr. Benito Recent rotator cuff surgery TRAVIS VELASQUEZ Feb 13, 2018 14:00
--- NOTE | 2018-02-13 15:03 | Consultation-Cardiology ---
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 Escamilla is a 77 year old male who is being admitted to ICU from the ED. He states he was seen at Dr. Subramanian's office earlier this morning d/t feeling unwell. He was found to have a fast HR in the 160's and low blood pressure. He was then sent to the ED for further evaluation. He reports for approx the last few weeks he has been having episodes of chest heaviness with assoc SOB and dizziness. He reports it occurs without r/t activity or emotional stress. It can last for several minutes. He also reports his BP at home has been really variable ranging from the 160 systolic to as low as in the 90's systolic. He also reports his HR will be in the 160's according to his blood pressure cuff. He states at this times he feels unwell, dizzy, chest pressure which is mid-sternal at those times. It can last for a few minutes to half hour or more. He states his BP was consistently elevated approx 3 weeks ago and at that time he was started on Lisinopril. He reports since the Lisinopril was started he has felt increasingly worse. He reports a couple days ago he was getting up in the early childhood associate hours to go urinate. He was walking to the bathroom and the next thing he recalls he was on the floor. He states he passed out and came to when he hit the floor. He reports mild ankle edema which is least in the morning and worse at the end of the day. He states he currently is not having any chest discomfort. He denies any n/v/d. He denies any fever or chills. His spouse reports she feels he has sleep apnea. They report he quits breathing when he lies on his back to sleep. Review of Systems-Cardiology Review of Systems Constitutional: No chills, No fever; lightheadedness Eyes: No vision change Ears/Nose/Throat: No epistaxis, No recent hearing loss, No ulcerations Respiratory: As described under HPI Cardiovascular: As described under HPI Gastrointestinal: As described under HPI; No constipation, No vomiting Genitourinary: No dysuria, No hematuria Musculoskeletal: no symptoms reported Skin: No rash, No ulcerations Psychiatric/Neurological: syncope; No anxiety, No depression, No seizure, No focal weakness Hematologic: No bleeding abnormalities [id number]-Btlcky Hx Patient Social History Alcohol Use: Denies Use Recreational Drug Use: No Smoking Status: Current Everyday Smoker Type Used: Cigarettes Recent Foreign Travel: No Recent Infectious Disease Expo: No Immunizations Up To Date Tetanus Booster (TDap): More than 5yrs Date of Pneumonia Vaccine: Nov 12, 2016 Date of Influenza Vaccine: Dec 19, 2015 Past Medical History PMH As described under Assessment. Family Medical History Family Medical History: He reports his mother and father both had CAD. Family History: Cardiovascular disease 19 MOTHER Myocardial infarction 19 FATHER Allergies and Home Medications Allergies Coded Allergies: No Known Drug Allergies (Verified , 02/23/08) Home Medications Allopurinol 100 Mg Tablet, 200 MG PO DAILY, (Reported) TAKES 2 (100MG) TABLETS Allopurinol 100 Mg Tablet, 100 MG PO HS, (Reported) Aspirin 81 Mg Tablet.dr, 81 MG PO HS, (Reported) Atorvastatin Calcium 40 Mg Tablet, 40 MG PO HS, (Reported) Calcium Carbonate/Vitamin D3 1 Each Tablet, 1 TAB PO HS, (Reported) Clopidogrel Bisulfate 75 Mg Tablet, 75 MG PO HS, (Reported) Doxazosin Mesylate 4 Mg Tablet, 4 MG PO HS, (Reported) Flaxseed Oil 1,000 Mg Capsule, 3,500 MG PO HS, (Reported) Hydrocodone/Acetaminophen 1 Each Tablet, 1-2 TAB PO Q4H PRN for PAIN-MODERATE, ( Reported) Levothyroxine Sodium 50 Mcg Tablet, 50 MCG PO DAILY, (Reported) Lisinopril 5 Mg Tablet, 2.5 MG PO BID, (Reported) TAKES 1/2 (5MG) TABLET Magnesium Oxide 400 Mg Capsule, 400 MG PO DAILY, (Reported) Metoprolol Succinate 25 Mg Tab.er.24h, 25 MG PO DAILY, (Reported) Multivitamin 1 Each Tablet, 1 TAB PO DAILY, (Reported) Pantoprazole Sodium 40 Mg Tablet.dr, 40 MG PO DAILY, (Reported) Potassium Gluconate 99 Mg Tablet, 99 MG PO DAILY, (Reported) Ranolazine 1,000 Mg Tab.er.12h, 1,000 MG PO BID, (Reported) Vitamin B Complex & Vit C No.4 150 Mg Tablet, 150 MG PO DAILY, (Reported) Physical Exam-Cardiology Physical Exam Vital Signs/I&O 02/15/18 02/15/18 02/15/18 02/15/18 20:00 20:00 21:00 22:00 Pulse 75 76 62 Resp 19 27 20 B/P (MAP) 108/76 (87) 118/70 (86) 121/73 (89) Pulse Ox 94 95 95 O2 Delivery Room Air Room Air Room Air Room Air 02/15/18 02/15/18 02/16/18 02/16/18 23:00 23:34 00:00 01:00 Temp 97.6 Pulse 74 77 73 100 Resp 22 12 15 29 B/P (MAP) 120/80 (93) 120/76 122/81 (95) 114/74 (87) Pulse Ox 94 96 96 94 O2 Delivery Room Air Room Air Room Air Room Air 02/16/18 02/16/18 02/16/18 02/16/18 01:00 01:05 02:00 03:00 Temp 97.0 Pulse 100 72 74 Resp 12 13 B/P (MAP) 124/69 (87) 121/78 (92) Pulse Ox 94 95 O2 Delivery Room Air Room Air 02/16/18 02/16/18 02/16/18 02/16/18 04:00 04:02 05:00 06:00 Temp 97.2 Pulse 76 70 55 Resp 14 15 19 B/P (MAP) 118/77 (91) 120/70 (87) 131/66 (87) Pulse Ox 97 95 96 O2 Delivery Room Air Room Air Room Air 02/16/18 00:00 Intake Total 1085 ml Output Total 1275 ml Balance -190 ml Capillary Refill : Less Than 3 Seconds Constitutional: AAO x 3, well-developed, well-nourished HEENT: PERRL, hearing is well preserved; No xanthelasmas are seen Neck: No carotid bruit; carotid pulses are 2 + bilaterally Respiratory: No accessory muscle use, No respiratory distress; chest expansion is symmetric, chest is bilaterally symmetric, lungs clear to auscultation Cardiovascular: irregularly irregular; No JVD; S1 and S2 Gastrointestinal: tender; No soft, No round; audible bowel sounds Rectal: No deferred Extremities: no lower extremity edema bilateral Neurologic/Psychiatric: grossly intact Skin: No rash, No ulcerations Data Review Labs Laboratory Tests 02/16/18 03:23: White Blood Count 9.5, Red Blood Count 3.87L, Hemoglobin 13.9, Hematocrit 39L, Mean Corpuscular Volume 102H, Mean Corpuscular Hemoglobin 36H, Mean Corpuscular Hemoglobin Concent 35, Red Cell Distribution Width 13.6, Platelet Count 199, Mean Platelet Volume 9.4, Neutrophils (%) (Auto) 61, Lymphocytes (%) (Auto) 23, Monocytes (%) (Auto) 10, Eosinophils (%) (Auto) 5, Basophils (%) (Auto) 1, Neutrophils # (Auto) 5.8, Lymphocytes # (Auto) 2.2, Monocytes # (Auto) 1.0, Eosinophils # (Auto) 0.5H, Basophils # (Auto) 0.1, Sodium Level 139, Potassium Level 4.2, Chloride Level 108H, Carbon Dioxide Level 21, Anion Gap 10, Blood Urea Nitrogen 16, Creatinine 1.07, Estimat Glomerular Filtration Rate > 60, BUN/ Creatinine Ratio 15, Glucose Level 104, Calcium Level 9.5, Phosphorus Level 3.3 , Magnesium Level 1.9 Radiology NAME: TENISHA ESCAMILLA [facility] REC#: [id number] PT STATUS: REG ER : 1940 PHYSICIAN: RADHA MACKEY MD ADMIT DATE: 02/13/18/ER Draft Date of Exam:02/13/18 CHEST 1 VIEW, AP/PA ONLY INDICATION: High blood pressure. TIME OF EXAM: 12:31 p.m. Correlation is made with prior chest from 11/26/2017. The heart is enlarged. There are changes of median sternotomy. Congestive changes are present in both lungs. There are some prominent interstitial markings and central vascularity. No parenchymal consolidation is seen. No effusion or pneumothorax is seen. IMPRESSION: Findings suggestive of a mild congestive failure. Dictated on workstation # [id number] Dict: 02/13/18 1250 Trans: 02/13/18 1253 [facility] [id number] Interpreted by: ANKUSH STOVALL MD Electronically signed by: ECG Impression ECG Comment Atrial flutter A/P-Cardiology Assessment/Admission Diagnosis New onset of a-flutter with RVR (EKG of 02-13-18) Elevated troponin probably d/t rapid HR, however, in the presence of CAD cannot exclude NSTEMI Syncopal episode in the early childhood associate hours while walking to the BR at home of undetermined etiology CAD s/p CABG - most recent cardiac cath of 04-17-2017 - difficult study, only non- selective shots of left cors, patent LMCA, LAD occluded, LCx not adequately visualized, patent jump graft to diag and OM, small RCA this is occluded and collateralized, normal LV function. Angiography of RODRIGUEZ on 04-18-16 via left arm showed patent RODRIGUEZ but there was left subclavian stenosis that was successfully stented Stress test August 2016 did not show any ischemia, patient has prominent left ventricle with diffuse left ventricular hypokinesia with ejection fraction 41% Per Dr. Subramanian Most recent 2-D echocardiogram done November 2016 revealed EF 50-55% per Dr. Subramanian Peripheral angiogram was done on November 26, 2017 which showed mild peripheral arterial disease, slightly tortuous iliac artery with no obstructive disease down to the foot and slightly ectatic abdominal aorta per Dr. Subramanian Hypertension, labile hypertension. Hypothyroidism - TSH 1.89 on lab of 02-13-18 Hyperlipidemia - statin tx Tobaccoism-educated on the importance of smoking cessation. Carotid artery stenosis-mild nonobstructive disease per carotid duplex done in July 2017 History of malignant melanoma, followed and managed by Dr. Nelson History of prostate cancer, followed and managed by Dr. Nelson. Pulmonary nodule noted incidentally on a CT scan done on July 18, 2016, recommended reevaluating CT scan in 4-6 months, followed and managed by Dr. Abbey Nelson and Dr. Benito Recent rotator cuff surgery Symptoms suggestive of sleep apnea Discussion and Recomendations Continue ASA d/t known h/o CAD Initiate Eliquis for stroke prophylaxis d/t new onset of a-flutter Continue Diltiazem IV for HR control Unable to start BB d/t somewhat low blood pressure D/C Lisinopril d/t low blood pressure and normal LVEF on most recent evaluation Continue statin Echocardiogram to eval structure and LVEF Monitor lab closely Symptoms suspicious for sleep apnea - advise out pt sleep studies We would like to thank medical services for this consult Further recs will be based on his hospital course TRAVIS VELASQUEZ Feb 13, 2018 15:03
[2018-02-13] MEDS ORDERED: PANT40TA3 PO (16:11)
[2018-02-13] MEDS ORDERED: LISI-556 PO (16:11)
[2018-02-13] MEDS ORDERED: ASPI-983 PO (16:11)
[2018-02-13] MEDS ORDERED: METO-387 PO (16:11)
[2018-02-13] MEDS ORDERED: CALC-694 PO (16:11)
[2018-02-13] MEDS ORDERED: LEVO50TA6 PO (16:11)
[2018-02-13] MEDS ORDERED: CATHETER FLUSH 10 ML SYR IV PRN (17:15)
[2018-02-13] MEDS: DILTIAZEM IV FOR DRIP 125 MG in NS (IVPB) 100 ML IV SCH (17:20)
--- NOTE | 2018-02-13 17:44 | Consultation-Cardiology ---
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 Subramanian Mr. Vargas is a 77 year old male who is being admitted to ICU from the ED. He states he was seen at Dr. Subramanian's office earlier this morning d/t feeling unwell. He was found to have a fast HR in the 160's and low blood pressure. He was then sent to the ED for further evaluation. He reports for approx the last few weeks he has been having episodes of chest heaviness with assoc SOB and dizziness. He reports it occurs without r/t activity or emotional stress. It can last for several minutes. He also reports his BP at home has been really variable ranging from the 160 systolic to as low as in the 90's systolic. He also reports his HR will be in the 160's according to his blood pressure cuff. He states at this times he feels unwell, dizzy, chest pressure which is mid-sternal at those times. It can last for a few minutes to half hour or more. He states his BP was consistently elevated approx 3 weeks ago and at that time he was started on Lisinopril. He reports since the Lisinopril was started he has felt increasingly worse. He reports a couple days ago he was getting up in the precision lens polisher hours to go urinate. He was walking to the bathroom and the next thing he recalls he was on the floor. He states he passed out and came to when he hit the floor. He reports mild ankle edema which is least in the morning and worse at the end of the day. He states he currently is not having any chest discomfort. He denies any n/v/d. He denies any fever or chills. His spouse reports she feels he has sleep apnea. They report he quits breathing when he lies on his back to sleep. Review of Systems-Cardiology Review of Systems Constitutional: No chills, No fever; lightheadedness Eyes: No vision change Ears/Nose/Throat: No epistaxis, No recent hearing loss, No ulcerations Respiratory: As described under HPI Cardiovascular: As described under HPI Gastrointestinal: As described under HPI; No constipation, No vomiting Genitourinary: No dysuria, No hematuria Musculoskeletal: no symptoms reported Skin: No rash, No ulcerations Psychiatric/Neurological: syncope; No anxiety, No depression, No seizure, No focal weakness Hematologic: No bleeding abnormalities FVS-Jfcnnz-Rfdvue Hx Patient Social History Alcohol Use: Denies Use Recreational Drug Use: No Smoking Status: Current Everyday Smoker Type Used: Cigarettes Recent Foreign Travel: No Recent Infectious Disease Expo: No Physical Abuse Screen: No Sexual Abuse: No Immunizations Up To Date Tetanus Booster (TDap): More than 5yrs Date of Pneumonia Vaccine: Nov 12, 2016 Date of Influenza Vaccine: Feb 12, 2018 Past Medical History PMH As described under Assessment. Family Medical History Family Medical History: He reports his mother and father both had CAD. Family History: Cardiovascular disease 19 MOTHER Myocardial infarction 19 FATHER Allergies and Home Medications Allergies Coded Allergies: No Known Drug Allergies (Verified , 02/23/08) Home Medications Allopurinol 100 Mg Tablet, 200 MG PO DAILY, (Reported) TAKES 2 (100MG) TABLETS Allopurinol 100 Mg Tablet, 100 MG PO HS, (Reported) Aspirin 81 Mg Tablet.dr, 81 MG PO HS, (Reported) Atorvastatin Calcium 40 Mg Tablet, 40 MG PO HS, (Reported) Calcium Carbonate/Vitamin D3 1 Each Tablet, 1 TAB PO HS, (Reported) Clopidogrel Bisulfate 75 Mg Tablet, 75 MG PO HS, (Reported) Doxazosin Mesylate 4 Mg Tablet, 4 MG PO HS, (Reported) Flaxseed Oil 1,000 Mg Capsule, 3,500 MG PO HS, (Reported) Hydrocodone/Acetaminophen 1 Each Tablet, 1-2 TAB PO Q4H PRN for PAIN-MODERATE, ( Reported) Levothyroxine Sodium 50 Mcg Tablet, 50 MCG PO DAILY, (Reported) Lisinopril 5 Mg Tablet, 2.5 MG PO BID, (Reported) TAKES 1/2 (5MG) TABLET Magnesium Oxide 400 Mg Capsule, 400 MG PO DAILY, (Reported) Metoprolol Succinate 25 Mg Tab.er.24h, 25 MG PO DAILY, (Reported) Multivitamin 1 Each Tablet, 1 TAB PO DAILY, (Reported) Pantoprazole Sodium 40 Mg Tablet.dr, 40 MG PO DAILY, (Reported) Potassium Gluconate 99 Mg Tablet, 99 MG PO DAILY, (Reported) Ranolazine 1,000 Mg Tab.er.12h, 1,000 MG PO BID, (Reported) Vitamin B Complex & Vit C No.4 150 Mg Tablet, 150 MG PO DAILY, (Reported) Patient Home Medication List Home Medication List Reviewed: Yes Physical Exam-Cardiology Physical Exam Vital Signs/I&O 02/13/18 02/13/18 02/13/18 02/13/18 12:15 12:42 15:15 15:15 Temp 97.2 96.7 97.1 Pulse 146 122 70 Resp 12 17 20 B/P (MAP) 115/85 (95) 109/63 109/66 (80) Pulse Ox 97 95 96 O2 Delivery Room Air Room Air 02/13/18 02/13/18 16:00 17:00 Pulse 73 72 Resp 14 15 B/P (MAP) 106/66 (79) 101/62 (75) Pulse Ox 97 97 O2 Delivery Room Air Room Air Capillary Refill : Less Than 3 Seconds Constitutional: AAO x 3, well-developed, well-nourished HEENT: PERRL, hearing is well preserved; No xanthelasmas are seen Neck: No carotid bruit; carotid pulses are 2 + bilaterally Respiratory: No accessory muscle use, No respiratory distress; chest expansion is symmetric, chest is bilaterally symmetric, lungs clear to auscultation Cardiovascular: irregularly irregular; No JVD; S1 and S2 Gastrointestinal: tender; No soft, No round; audible bowel sounds Rectal: No deferred Extremities: no lower extremity edema bilateral Neurologic/Psychiatric: grossly intact Skin: No rash, No ulcerations Data Review Labs Laboratory Tests 02/13/18 11:58: White Blood Count 8.1, Red Blood Count 4.18L, Hemoglobin 14.5, Hematocrit 42, Mean Corpuscular Volume 101H, Mean Corpuscular Hemoglobin 35H, Mean Corpuscular Hemoglobin Concent 34, Red Cell Distribution Width 13.7, Platelet Count 209, Mean Platelet Volume 9.3, Neutrophils (%) (Auto) 63, Lymphocytes (%) (Auto) 22, Monocytes (%) (Auto) 11, Eosinophils (%) (Auto) 4, Basophils (%) (Auto) 1, Neutrophils # (Auto) 5.1, Lymphocytes # (Auto) 1.8, Monocytes # (Auto) 0.9, Eosinophils # (Auto) 0.3, Basophils # (Auto) 0.0, Prothrombin Time 13.4, INR Comment 1.0, Activated Partial Thromboplast Time 26, Sodium Level 136, Potassium Level 4.6, Chloride Level 105, Carbon Dioxide Level 20L, Anion Gap 11 , Blood Urea Nitrogen 22H, Creatinine 1.29, Estimat Glomerular Filtration Rate 54, BUN/Creatinine Ratio 17, Glucose Level 129H, Calcium Level 9.7, Corrected Calcium 9.3, Magnesium Level 2.3, Total Bilirubin 0.8, Aspartate Amino Transf ( AST/SGOT) 22, Alanine Aminotransferase (ALT/SGPT) 14, Alkaline Phosphatase 119, Myoglobin 72.3, Troponin I 1.06*H, Total Protein 7.2, Albumin 4.5, Thyroid Stimulating Hormone (TSH) 1.89, Free Thyroxine 0.97 Laboratory Tests 02/13/18 11:58 A/P-Cardiology Assessment/Admission Diagnosis New onset of a-flutter with RVR (EKG of 02-13-18) Elevated troponin probably d/t rapid HR in the presence of CAD, but cannot exclude NSTEMI Borderline hypotension. Syncopal episode in the precision lens polisher hours while walking to the BR at home of undetermined etiology. This was likely postural hypotension CAD s/p CABG - most recent cardiac cath of 04-17-2017 (Dr Subramanian) - difficult study , only non-selective shots of left cors, patent LMCA, LAD occluded, LCx not adequately visualized, patent jump graft to diag and OM, small RCA this is occluded and collateralized, normal LV function. Angiography of RODRIGUEZ on 04-18-16 via left arm showed patent RODRIGUEZ but there was left subclavian stenosis that was successfully stented by Dr Martines Stress test August 2016 did not show any ischemia, patient has prominent left ventricle with diffuse left ventricular hypokinesia with ejection fraction 41% Per Dr. Subramanian Echo of 02/13/18: LVEF 45-50%, mild to mod MR, mod TR, mild AI, PASP 30-35 mmHg Peripheral angiogram was done on November 26, 2017 which showed mild peripheral arterial disease, slightly tortuous iliac artery with no obstructive disease down to the foot and slightly ectatic abdominal aorta per Dr. Subramanian Hypothyroidism - TSH 1.89 on lab of 02-13-18 Hyperlipidemia - statin tx Tobaccoism - advised to quit Carotid artery stenosis-mild nonobstructive disease per carotid duplex done in July 2017 History of malignant melanoma, followed and managed by Dr. Nelson History of prostate cancer, followed and managed by Dr. Nelson. Pulmonary nodule noted incidentally on a CT scan done on July 18, 2016, recommended reevaluating CT scan in 4-6 months, followed and managed by Dr. Abbey Nelson and Dr. Benito H/o rotator cuff surgery Symptoms suggestive of sleep apnea Discussion and Recomendations iv fluids for hypotension Continue ASA d/t known h/o CAD Initiate Eliquis for stroke prophylaxis d/t new onset of a-flutter Continue Diltiazem IV for HR control Unable to start BB d/t somewhat low blood pressure D/C Lisinopril d/t low blood pressure Continue statin Echocardiogram to eval structure and LVEF (done, see above) Monitor labs closely Symptoms suspicious for sleep apnea - advise out pt sleep studies Further recs will be based on his hospital course GRANT DELEON MD FACP FACC CCDS Feb 13, 2018 17:44
[2018-02-13] MEDS: CATHETER FLUSH 10 ML SYR IV SCH (21:18)
[2018-02-13] MEDS: APIXABAN 5 MG (ELIQUIS) TABLET PO SCH (21:31)
[2018-02-13] MEDS: NS IV 1000 ML 1,000 ML IV SCH (21:42)
[2018-02-13] MEDS: TAMSULOSIN 0.4 MG (FLOMAX) CAP PO SCH (22:47)
[2018-02-14] VITALS (24 sets, daily range): BP systolic 103–137; BP diastolic 59–94
[2018-02-14 04:29] LABS: BASOPHILS % (AUTO) 1 % (0-10); EOSINOPHILS # (AUTO) 0.4 10^3/uL (0.0-0.3); EOSINOPHILS % (AUTO) 5 % (0-10); HEMATOCRIT 40 % (40-54); HEMOGLOBIN 13.6 G/DL (13.3-17.7); LYMPHOCYTES # (AUTO) 2.2 X 10^3 (1.0-4.0); LYMPHOCYTES % (AUTO) 26 % (12-44); MEAN CORPUSCULAR HEMOGLOBIN 35 PG (25-34); MEAN CORPUSCULAR HGB CONC 34 G/DL (32-36); MEAN CORPUSCULAR VOLUME 103 FL (80-99); MEAN PLATELET VOLUME 9.4 FL (7.4-10.4); MONOCYTES # (AUTO) 0.9 X 10^3 (0.0-1.0); MONOCYTES % (AUTO) 11 % (0-12); NEUTROPHILS # (AUTO) 4.9 X 10^3 (1.8-7.8); NEUTROPHILS % (AUTO) 58 % (42-75); PLATELET COUNT 192 10^3/uL (130-400); RED BLOOD COUNT 3.86 10^6/uL (4.35-5.85); WHITE BLOOD COUNT 8.3 10^3/uL (4.3-11.0)
[2018-02-14 04:46] LABS: CHOLESTEROL 116 MG/DL (< 200); CREATININE SERUM 1.23 MG/DL (0.60-1.30); HDL CHOLESTEROL 28 MG/DL (40-60); MAGNESIUM 2.1 MG/DL (1.8-2.4); POTASSIUM 4.7 MMOL/L (3.6-5.0); TRIGLYCERIDES 165 MG/DL (<150); VLDL CHOLESTEROL 33 MG/DL (5-40)
[2018-02-14] MEDS: CATHETER FLUSH 10 ML SYR IV SCH ×3 (07:25→20:59)
[2018-02-14] MEDS: MAGNESIUM 1 GM/100 ML IVPB 100 ML IV SCH (07:27)
[2018-02-14] MEDS: POTASSIUM CL 10MEQ/50ML IVPB 50 ML IV SCH (07:27)
[2018-02-14] MEDS: KCL 20 MEQ TAB (K-DUR) PO SCH (07:28)
--- NOTE | 2018-02-14 07:41 | Diagnostic Imaging Report ---
INDICATION: Shortness of breath. Portable chest 2:46 AM FINDINGS: There are postop changes from a median sternotomy. Heart size and pulmonary vascularity normal. Lungs are clear. There are no effusions or pneumothoraces. IMPRESSION: Negative chest. Dictated by: Dictated on workstation # [id number]
[2018-02-14] MEDS: NS IV 1000 ML 1,000 ML IV SCH ×2 (07:50→11:51)
[2018-02-14] MEDS: APIXABAN 5 MG (ELIQUIS) TABLET PO SCH ×2 (07:50→20:57)
[2018-02-14] MEDS: ASPIRIN 81 MG CHEW (CHILDREN'S ASA) PO SCH (07:50)
[2018-02-14] MEDS: DILTIAZEM IV FOR DRIP 125 MG in NS (IVPB) 100 ML IV SCH (08:12)
[2018-02-14] MEDS ORDERED: meTOproloL SUCCINATE 50 MG (TOPROL XL) TAB PO NR (11:45)
--- NOTE | 2018-02-14 11:46 | Progress Note-Cardiology ---
Cardiology SOAP Progress Note Subjective: No cp or palp or syncope or shortness of breath or dizziness today No syncope since admission Objective: I&O/Vital Signs 02/14/18 02/14/18 02/14/18 02/14/18 00:00 00:13 01:00 01:00 Temp 96.6 Pulse 73 72 71 Resp 19 20 B/P (MAP) 117/73 (88) 117/77 (90) Pulse Ox 97 97 O2 Delivery Room Air Room Air 02/14/18 02/14/18 02/14/18 02/14/18 02:00 03:00 04:00 04:00 Temp 96.2 Pulse 72 73 71 Resp 18 19 18 B/P (MAP) 115/73 (87) 105/60 (75) 111/67 (82) Pulse Ox 97 98 96 O2 Delivery Room Air Room Air Room Air 02/14/18 02/14/18 02/14/18 02/14/18 05:00 06:00 07:00 07:00 Pulse 73 74 76 73 Resp 16 18 13 B/P (MAP) 103/59 (74) 111/64 (80) 128/73 (91) Pulse Ox 94 94 98 O2 Delivery Room Air Room Air Room Air 02/14/18 02/14/18 02/14/18 02/14/18 07:30 08:00 08:00 08:12 Temp 97.0 Pulse 84 73 Resp 19 B/P (MAP) 130/74 (92) 122/75 Pulse Ox 97 O2 Delivery Room Air Room Air 02/14/18 02/14/18 02/14/18 09:00 10:00 11:00 Pulse 73 75 76 Resp 22 18 14 B/P (MAP) 125/75 (92) 123/74 (90) 113/72 (86) Pulse Ox 97 97 94 O2 Delivery Room Air Room Air Room Air 02/14/18 00:00 Intake Total 1240 ml Output Total 850 ml Balance 390 ml Weight (Pounds): 213 Weight (Ounces): 0.0 Weight (Calculated Kilograms): 96.956992 Constitutional: AAO x 3, well-developed, well-nourished Respiratory: No accessory muscle use, No respiratory distress; chest expansion is symmetric, chest is bilaterally symmetric, lungs clear to auscultation Cardiovascular: irregularly irregular; No JVD; S1 and S2 Gastrointestional: tender; No soft, No round; audible bowel sounds Extremities: no lower extremity edema bilateral Neurologic/Psychiatric: grossly intact Skin: No rash, No ulcerations Results/Procedures: Labs Laboratory Tests 02/13/18 11:58: White Blood Count 8.1, Red Blood Count 4.18L, Hemoglobin 14.5, Hematocrit 42, Mean Corpuscular Volume 101H, Mean Corpuscular Hemoglobin 35H, Mean Corpuscular Hemoglobin Concent 34, Red Cell Distribution Width 13.7, Platelet Count 209, Mean Platelet Volume 9.3, Neutrophils (%) (Auto) 63, Lymphocytes (%) (Auto) 22, Monocytes (%) (Auto) 11, Eosinophils (%) (Auto) 4, Basophils (%) (Auto) 1, Neutrophils # (Auto) 5.1, Lymphocytes # (Auto) 1.8, Monocytes # (Auto) 0.9, Eosinophils # (Auto) 0.3, Basophils # (Auto) 0.0, Prothrombin Time 13.4, INR Comment 1.0, Activated Partial Thromboplast Time 26, Sodium Level 136, Potassium Level 4.6, Chloride Level 105, Carbon Dioxide Level 20L, Anion Gap 11 , Blood Urea Nitrogen 22H, Creatinine 1.29, Estimat Glomerular Filtration Rate 54, BUN/Creatinine Ratio 17, Glucose Level 129H, Calcium Level 9.7, Corrected Calcium 9.3, Magnesium Level 2.3, Total Bilirubin 0.8, Aspartate Amino Transf ( AST/SGOT) 22, Alanine Aminotransferase (ALT/SGPT) 14, Alkaline Phosphatase 119, Myoglobin 72.3, Troponin I 1.06*H, Total Protein 7.2, Albumin 4.5, Thyroid Stimulating Hormone (TSH) 1.89, Free Thyroxine 0.97 02/13/18 17:52: Troponin I 1.21*H 02/14/18 03:44: White Blood Count 8.3, Red Blood Count 3.86L, Hemoglobin 13.6, Hematocrit 40, Mean Corpuscular Volume 103H, Mean Corpuscular Hemoglobin 35H, Mean Corpuscular Hemoglobin Concent 34, Red Cell Distribution Width 14.0, Platelet Count 192, Mean Platelet Volume 9.4, Neutrophils (%) (Auto) 58, Lymphocytes (%) (Auto) 26, Monocytes (%) (Auto) 11, Eosinophils (%) (Auto) 5, Basophils (%) (Auto) 1, Neutrophils # (Auto) 4.9, Lymphocytes # (Auto) 2.2, Monocytes # (Auto) 0.9, Eosinophils # (Auto) 0.4H, Basophils # (Auto) 0.0, Sodium Level 137, Potassium Level 4.7, Chloride Level 108H, Carbon Dioxide Level 20L, Anion Gap 9, Blood Urea Nitrogen 19H, Creatinine 1.23, Estimat Glomerular Filtration Rate 57, BUN/ Creatinine Ratio 15, Glucose Level 103, Calcium Level 9.0, Magnesium Level 2.1, Phosphorus Level 3.0, Triglycerides Level 165H, Cholesterol Level 116, LDL Cholesterol Direct 61, VLDL Cholesterol 33, HDL Cholesterol 28L A/P: Assessment: New onset of a-flutter with RVR, first documented on 02/13/18. Vent rate now improved on iv diltiazem Elevated troponin probably d/t rapid HR and relatively low in the presence of CAD. BP and HR now improved Borderline hypotension. Brief syncopal episode on day of admission while walking to the at home of undetermined etiology. This was likely postural hypotension. No recurrence CAD s/p CABG - most recent cardiac cath of in Apr 2016 (Dr Subramanian and Dr Martines) - difficult study, only non-selective shots of left cors, patent LMCA, LAD occluded, LCx not adequately visualized, patent jump graft to diag and OM, small RCA occluded and collateralized, normal LV function. RODRIGUEZ to LAD patent, but there was left subclavian stenosis that was successfully stented by Dr Martines on 04-18-17 Stress test August 2016 did not show any ischemia, patient has prominent left ventricle with diffuse left ventricular hypokinesia with ejection fraction 41% Per Dr. Subramanian Echo of 02/13/18: LVEF 45-50%, mild to mod MR, mod TR, mild AI, PASP 30-35 mmHg Peripheral angiogram was done on November 26, 2017 which showed mild peripheral arterial disease, slightly tortuous iliac artery with no obstructive disease down to the foot and slightly ectatic abdominal aorta per Dr. Subramanian Hypothyroidism - TSH 1.89 on lab of 02-13-18 Hyperlipidemia - statin tx Tobaccoism - advised to quit Carotid artery stenosis-mild nonobstructive disease per carotid duplex done in July 2017 History of malignant melanoma, followed and managed by Dr. Nelson History of prostate cancer, followed and managed by Dr. Nelson. Pulmonary nodule noted incidentally on a CT scan done on July 18, 2016, recommended reevaluating CT scan in 4-6 months, followed and managed by Dr. Abbey Nelson and Dr. Benito H/o rotator cuff surgery Symptoms suggestive of sleep apnea Plan: * D/c iv dilt. Start oral metoprolol succinate * Ambulate * Reduce iv fluids * Continue apixaban and aspirin * D/c clopidogrel since more than year since last stent and currently on apixaban + aspirin * D/c doxazosin and lisinopril because of low bp * Continue statin * I discussed his CV issues with him and our treatment plan. I answered his questions * Needs to stay in the hosp * Monitor labs * Sleep studies as outpt GRANT DELEON MD FACP FAC CCDS Feb 14, 2018 11:46
--- NOTE | 2018-02-14 13:10 | History & Physical-Hospitalist ---
History of Present Illness HPI/Chief Complaint The patient is 77-year-old white male with known coronary artery disease who noted increasing anginal symptoms with activity only over the past week. He would have associated shortness of breath and tightness in his chest that subsided by resting. He denied having to use nitroglycerin. Day before admission he noted increased weakness and his home blood pressure monitor is noting heart rates as high as 160. Symptoms progressed with weakness and shortness of breath causing to present to the emergency room were he was noted to be in atrial flutter predominately with a 2-1 block and heart rates around 150. He denied any chest symptoms at that time but was admitted for rate control and further investigation. His troponin was also mildly elevated on admission a little over 1. He been feeling well otherwise other than an increase in his baseline angina. Date Seen 02/14/18 Time Seen by a Provider: 07:00 Attending Physician Chaitanya Hi MD PCP Farrukh Baeza MD Referring Physician Date of Admission Feb 13, 2018 at 13:38 Home Medications & Allergies Home Medications Reviewed patient Home Medication Reconciliation performed by pharmacy medication reconciliations application technician and/or nursing. Patients Allergies have been reviewed. Allergies Allergies Coded Allergies No Known Drug Allergies ([id number]/11/08) Past [id number]-Kjmnia Hx Past Med/Social Hx: Reviewed Nursing Past Med/Soc Hx, Reviewed and Corrections made Patient Social History Alcohol Use: Denies Use Recreational Drug Use: No Smoking Status: Current Everyday Smoker Type Used: Cigarettes Physical Abuse Screen: No Sexual Abuse: No Recent Foreign Travel: No Contact w/other who traveled: No Recent Hopitalizations: Yes Recent Infectious Disease Expo: No Immunizations Up To Date Tetanus Booster (TDap): More than 5yrs Date of Pneumonia Vaccine: Nov 12, 2016 Date of Influenza Vaccine: Feb 12, 2018 Seasonal Allergies Seasonal Allergies: No Past Medical History Surgeries: CABG, Coronary Stent, Orthopedic Cardiac: Atrial Fibrillation, Coronary Artery Disease, Hypertension Reproductive: No Genitourinary: Prostate Problems Gastrointestinal: Gastroesophageal Reflux Musculoskeletal: Arthritis, Chronic Back Pain, Gout Endocrine: Hypothyroidsim Cancer: Prostate History of Blood Disorders: No Family History Reviewed Nursing Family Hx Cardiovascular disease 19 MOTHER Myocardial infarction 19 FATHER Review of Systems Constitutional: weakness Respiratory: see HPI; No cough; dyspnea on exertion; No hemoptysis, No orthopnea, No phlegm; short of breath; No stridor, No wheezing, No other Cardiovascular: see HPI, chest pain, palpitations Physical Exam Physical Exam Vital Signs Vital Signs - First Documented 02/13/18 12:15 Temp 97.2 Pulse 146 Resp 12 B/P (MAP) 115/85 (95) Pulse Ox 97 Capillary Refill : Less Than 3 Seconds Height, Weight, BMI Height: 6'0.00" Weight: 213lbs. 0.0oz. 96.835015gl; 28.5 BMI Method:Stated General Appearance: Anxious, Mild Distress Neck: Full Range of Motion, Normal Inspection, Non Tender, Supple, Carotid Bruit Respiratory: Chest Non Tender, Lungs Clear, Normal Breath Sounds, No Accessory Muscle Use, No Respiratory Distress Cardiovascular: No Edema, No Gallop, No JVD, No Murmur, Irregularly Irregular Gastrointestinal: Normal Bowel Sounds, No Organomegaly, No Pulsatile Mass, Non Tender, Soft Extremity: Normal Inspection, No Calf Tenderness, No Pedal Edema Neurologic/Psychiatric: Alert, Oriented x3 Results Results/Procedures Labs Laboratory Tests 02/14/18 03:44 02/15/18 03:30 Patient resulted labs reviewed. Assessment/Plan Admission Diagnosis 1. Admission Status: Inpatient Order (span 2 midnights) Reason for Inpatient Admission: See above Copy Copies To 1: FARRUKH BAEZA MD, MARK D MD Feb 14, 2018 13:10
[2018-02-14] MEDS: TAMSULOSIN 0.4 MG (FLOMAX) CAP PO SCH (17:07)
[2018-02-14] MEDS: CALCIUM CARB + VIT D 600 MG (CALCARB + D) TAB PO SCH (20:57)
[2018-02-14] MEDS: ALLOPURINOL 100 MG (ZYLOPRIM) TAB PO SCH (20:58)
[2018-02-14] MEDS: ATORVASTATIN 40 MG (LIPITOR) TABLET PO SCH (20:58)
[2018-02-14] MEDS: RANOLAZINE ER 500 MG TAB (RANEXA) PO SCH (20:58)
[2018-02-14] MEDS ORDERED: FLAXSEED OIL PO SCH (21:00)
[2018-02-15] VITALS (25 sets, daily range): BP systolic 96–136; BP diastolic 59–109
[2018-02-15] MEDS: NS IV 1000 ML 1,000 ML IV SCH ×2 (01:32→18:32)
[2018-02-15 03:51] LABS: BASOPHILS % (AUTO) 1 % (0-10); EOSINOPHILS # (AUTO) 0.3 10^3/uL (0.0-0.3); EOSINOPHILS % (AUTO) 4 % (0-10); HEMATOCRIT 40 % (40-54); LYMPHOCYTES # (AUTO) 2.1 X 10^3 (1.0-4.0); LYMPHOCYTES % (AUTO) 26 % (12-44); MEAN CORPUSCULAR HEMOGLOBIN 35 PG (25-34); MEAN CORPUSCULAR HGB CONC 35 G/DL (32-36); MEAN CORPUSCULAR VOLUME 102 FL (80-99); MEAN PLATELET VOLUME 9.4 FL (7.4-10.4); MONOCYTES # (AUTO) 0.9 X 10^3 (0.0-1.0); MONOCYTES % (AUTO) 11 % (0-12); NEUTROPHILS # (AUTO) 4.7 X 10^3 (1.8-7.8); NEUTROPHILS % (AUTO) 59 % (42-75); PLATELET COUNT 187 10^3/uL (130-400); RED BLOOD COUNT 3.97 10^6/uL (4.35-5.85); RED CELL DISTRIBUTION WIDTH 13.6 % (10.0-14.5); WHITE BLOOD COUNT 8.1 10^3/uL (4.3-11.0)
[2018-02-15 04:11] LABS: BUN/CREATININE RATIO 14; CALCIUM 9.6 MG/DL (8.5-10.1); CARBON DIOXIDE 19 MMOL/L (21-32); CHLORIDE 109 MMOL/L (98-107); CREATININE SERUM 1.03 MG/DL (0.60-1.30); GFR ESTIMATED > 60; GLUCOSE 104 MG/DL (70-105); POTASSIUM 4.2 MMOL/L (3.6-5.0); SODIUM 139 MMOL/L (135-145)
[2018-02-15] MEDS: CATHETER FLUSH 10 ML SYR IV SCH ×3 (04:53→22:00)
[2018-02-15] MEDS: MAGNESIUM 1 GM/100 ML IVPB 100 ML IV SCH (04:53)
[2018-02-15] MEDS: POTASSIUM CL 10MEQ/50ML IVPB 50 ML IV SCH (04:53)
[2018-02-15] MEDS: KCL 20 MEQ TAB (K-DUR) PO SCH (04:53)
--- NOTE | 2018-02-15 07:02 | Diagnostic Imaging Report ---
Indication: Shortness of breath Portable chest at 12:44 AM Findings: There are postop changes from a median sternotomy. Heart size and pulmonary vascularity are normal. The lungs are clear. There are no effusions or pneumothoraces. IMPRESSION: No acute abnormalities in the chest. Dictated by: Dictated on workstation # [id number]
[2018-02-15] MEDS: ASPIRIN 81 MG CHEW (CHILDREN'S ASA) PO SCH (08:22)
[2018-02-15] MEDS: APIXABAN 5 MG (ELIQUIS) TABLET PO SCH ×2 (08:22→20:29)
[2018-02-15] MEDS: MULTIVIT W/MINERALS TAB (THERAGRAN M) PO SCH (08:22)
[2018-02-15] MEDS: LEVOTHYROXINE 50 MCG (LEVOTHROID) TAB PO SCH (08:23)
[2018-02-15] MEDS: ALLOPURINOL 100 MG (ZYLOPRIM) TAB PO SCH ×2 (08:23→20:29)
[2018-02-15] MEDS: MAGNESIUM OXIDE (MAG-OX)400 MG TAB PO SCH (08:23)
[2018-02-15] MEDS: meTOproloL SUCCINATE 50 MG (TOPROL XL) TAB PO SCH (08:23)
[2018-02-15] MEDS: RANOLAZINE ER 500 MG TAB (RANEXA) PO SCH ×2 (08:23→20:29)
[2018-02-15] MEDS: PANTOPRAZOLE 40 MG (PROTONIX) TAB PO SCH (08:23)
[2018-02-15] MEDS ORDERED: NON-FORMULARY MEDICATION 1 EA EA (Vitamin B Complex & Vit C No.4 (Super B Complex) 150 MG) PO SCH (09:00)
[2018-02-15] MEDS ORDERED: [UNRECOGNIZED DRUG - REMARK] PO SCH (09:00)
[2018-02-15] MEDS: DILTIAZEM IV FOR DRIP 125 MG in NS (IVPB) 100 ML IV SCH ×2 (12:10→23:34)
--- NOTE | 2018-02-15 13:08 | Progress Note-Hospitalist ---
Subjective HPI/CC On Admission Date Seen by Provider: Feb 15, 2018 Time Seen by Provider: 08:30 The patient is 77-year-old white male with known coronary artery disease who noted increasing anginal symptoms with activity only over the past week. He would have associated shortness of breath and tightness in his chest that subsided by resting. He denied having to use nitroglycerin. Day before admission he noted increased weakness and his home blood pressure monitor is noting heart rates as high as 160. Symptoms progressed with weakness and shortness of breath causing to present to the emergency room were he was noted to be in atrial flutter predominately with a 2-1 block and heart rates around 150. He denied any chest symptoms at that time but was admitted for rate control and further investigation. His troponin was also mildly elevated on admission a little over 1. He been feeling well otherwise other than an increase in his baseline angina. Subjective/Events-last exam Upon arrival this morning patient reports that even a simple active chewing causes his heart rate to go up to the 1 50 bpm range with some associated chest tightness. It is made it difficult for him to finish breakfast. He denies diaphoresis nausea or shortness of breath at rest. Objective Exam Vital Signs Vital Signs Date Time Temp Pulse Resp B/P (MAP) Pulse Ox O2 Delivery O2 Flow Rate FiO2 02/15/18 12:10 98.2 125 18 120/66 97 Room Air Capillary Refill : Less Than 3 Seconds General Appearance: Anxious, Mild Distress Respiratory: Chest Non Tender, Lungs Clear, Normal Breath Sounds, No Accessory Muscle Use, No Respiratory Distress Cardiovascular: No Edema, No Gallop, No JVD, No Murmur, Irregularly Irregular Gastrointestinal: Normal Bowel Sounds, No Organomegaly, No Pulsatile Mass, Non Tender, Soft Extremity: Normal Capillary Refill, Normal Inspection, Normal Range of Motion, Non Tender, No Calf Tenderness, No Pedal Edema Results/Procedures Lab Laboratory Tests 02/15/18 03:30 Patient resulted labs reviewed. Assessment/Plan Assessment and Plan Assess & Plan/Chief Complaint Acute atrial flutter with rapid ventricular response and initial improvement on IV Cartia some patient is about back to baseline this morning in regards to rapid ventricular response and likely rate related angina on top of fixed coronary disease. Discussed case with Dr. DELEON this morning who will be intensifying by mouth therapy. Likely consideration for tomorrow when his regular timber rider Dr. Aly returns for JIMY with hopeful cardioversion. 2. History of coronary artery disease with history also suggesting accelerating angina possibly due to number 1 cannot exclude the possibility of an acute coronary syndrome considering her mild troponin elevation however this may be rate related with fixed coronary disease defer to Dr. DELEON. 3. Reported witnessed episodes of apnea raising the possibility of sleep apnea will need to be set up for outpatient sleep study. Critical Care Critical Care: Critically Ill Patient ELAINE FRANKLIN MD Feb 15, 2018 13:08
--- NOTE | 2018-02-15 13:33 | Progress Note-Cardiology ---
Cardiology SOAP Progress Note Subjective: Heart rate rises with minimal effort and cause gen discomfort and chest discomfort and shortness of breath No syncope since adm Objective: I&O/Vital Signs 02/15/18 02/15/18 02/15/18 02/15/18 02:00 03:00 04:00 04:00 Temp 97.2 Pulse 80 100 81 Resp 16 19 15 B/P (MAP) 120/75 (90) 101/67 (78) 96/59 (71) O2 Delivery Room Air Room Air Room Air 02/15/18 02/15/18 02/15/18 02/15/18 05:00 06:00 07:00 07:00 Pulse 80 82 80 83 Resp 16 15 18 B/P (MAP) 105/68 (80) 120/73 (89) 120/75 (90) O2 Delivery Room Air Room Air Room Air 02/15/18 02/15/18 02/15/18 02/15/18 08:00 08:00 08:00 09:00 Temp 97.0 Pulse 156 106 Resp 10 17 B/P (MAP) 123/109 (114) 135/87 (103) O2 Delivery Room Air Room Air Room Air 02/15/18 02/15/18 02/15/18 02/15/18 10:00 11:00 12:00 12:00 Pulse 83 134 137 Resp 17 20 32 B/P (MAP) 125/69 (87) 136/86 (103) 120/66 (84) Pulse Ox 97 O2 Delivery Room Air Room Air Room Air Room Air 02/15/18 02/15/18 12:00 12:10 Temp 98.2 98.2 Pulse 125 Resp 18 B/P (MAP) 120/66 Pulse Ox 97 O2 Delivery Room Air 02/15/18 00:00 Intake Total 650 ml Output Total 2750 ml Balance -2100 ml Weight (Pounds): 208 Weight (Ounces): 2.0 Weight (Calculated Kilograms): 94.959315 Constitutional: AAO x 3, well-developed, well-nourished Respiratory: No accessory muscle use, No respiratory distress; chest expansion is symmetric, chest is bilaterally symmetric, lungs clear to auscultation Cardiovascular: irregularly irregular; No JVD; S1 and S2 Gastrointestional: tender; No soft, No round; audible bowel sounds Extremities: no lower extremity edema bilateral Neurologic/Psychiatric: grossly intact Skin: No rash, No ulcerations Results/Procedures: Labs Laboratory Tests 02/15/18 03:30: White Blood Count 8.1, Red Blood Count 3.97L, Hemoglobin 14.0, Hematocrit 40, Mean Corpuscular Volume 102H, Mean Corpuscular Hemoglobin 35H, Mean Corpuscular Hemoglobin Concent 35, Red Cell Distribution Width 13.6, Platelet Count 187, Mean Platelet Volume 9.4, Neutrophils (%) (Auto) 59, Lymphocytes (%) (Auto) 26, Monocytes (%) (Auto) 11, Eosinophils (%) (Auto) 4, Basophils (%) (Auto) 1, Neutrophils # (Auto) 4.7, Lymphocytes # (Auto) 2.1, Monocytes # (Auto) 0.9, Eosinophils # (Auto) 0.3, Basophils # (Auto) 0.0, Sodium Level 139, Potassium Level 4.2, Chloride Level 109H, Carbon Dioxide Level 19L, Anion Gap 11, Blood Urea Nitrogen 14, Creatinine 1.03, Estimat Glomerular Filtration Rate > 60, BUN/ Creatinine Ratio 14, Glucose Level 104, Calcium Level 9.6, Phosphorus Level 3.0 , Magnesium Level 2.0 A/P: Assessment: New onset of a-flutter with RVR, first documented on 02/13/18. Vent rate worsened after iv dilt stoped Elevated troponin probably d/t rapid HR and relatively low bp, in the presence of CAD Borderline hypotension. Brief syncopal episode on day of admission while walking to the BR at home of undetermined etiology. This was likely postural hypotension. No recurrence CAD s/p CABG - most recent cardiac cath of in Apr 2016 (Dr Subramanian and Dr Martines) - difficult study, only non-selective shots of left cors, patent LMCA, LAD occluded, LCx not adequately visualized, patent jump graft to diag and OM, small RCA occluded and collateralized, normal LV function. RODRIGUEZ to LAD patent, but there was left subclavian stenosis that was successfully stented by Dr Martines on 04-18-17 Stress test August 2016 did not show any ischemia, patient has prominent left ventricle with diffuse left ventricular hypokinesia with ejection fraction 41% Per Dr. Subramanian Echo of 02/13/18: LVEF 45-50%, mild to mod MR, mod TR, mild AI, PASP 30-35 mmHg Peripheral angiogram was done on November 26, 2017 which showed mild peripheral arterial disease, slightly tortuous iliac artery with no obstructive disease down to the foot and slightly ectatic abdominal aorta per Dr. Subramanian Hypothyroidism - TSH 1.89 on lab of 02-13-18 Hyperlipidemia - statin tx Tobaccoism - advised to quit Carotid artery stenosis-mild nonobstructive disease per carotid duplex done in July 2017 History of malignant melanoma, followed and managed by Dr. Nelson History of prostate cancer, followed and managed by Dr. Nelson. Pulmonary nodule noted incidentally on a CT scan done on July 18, 2016, recommended reevaluating CT scan in 4-6 months, followed and managed by Dr. Abbey Nelson and Dr. Benito H/o rotator cuff surgery Symptoms suggestive of sleep apnea Plan: * Restart iv dilt * Plan for JIMY and elec CV * Continue apixaban and aspirin * D/c clopidogrel since more than year since last stent and currently on apixaban + aspirin * D/c doxazosin and lisinopril because of low bp * Continue statin * I discussed his CV issues with him and our treatment plan. I answered his questions * Needs to stay in the hosp * Monitor labs * Sleep studies as outpt GRANT DELEON MD FACP FAC CCDS Feb 15, 2018 13:33
[2018-02-15] MEDS: TAMSULOSIN 0.4 MG (FLOMAX) CAP PO SCH (17:00)
[2018-02-15] MEDS: CALCIUM CARB + VIT D 600 MG (CALCARB + D) TAB PO SCH (20:28)
[2018-02-15] MEDS: ATORVASTATIN 40 MG (LIPITOR) TABLET PO SCH (20:29)
[2018-02-16] VITALS (24 sets, daily range): BP systolic 100–138; BP diastolic 62–93
[2018-02-16 03:41] LABS: BASOPHILS # (AUTO) 0.1 10^3/uL (0.0-0.1); BASOPHILS % (AUTO) 1 % (0-10); EOSINOPHILS # (AUTO) 0.5 10^3/uL (0.0-0.3); EOSINOPHILS % (AUTO) 5 % (0-10); HEMATOCRIT 39 % (40-54); HEMOGLOBIN 13.9 G/DL (13.3-17.7); LYMPHOCYTES # (AUTO) 2.2 X 10^3 (1.0-4.0); LYMPHOCYTES % (AUTO) 23 % (12-44); MEAN CORPUSCULAR HEMOGLOBIN 36 PG (25-34); MEAN CORPUSCULAR HGB CONC 35 G/DL (32-36); MEAN CORPUSCULAR VOLUME 102 FL (80-99); MEAN PLATELET VOLUME 9.4 FL (7.4-10.4); MONOCYTES % (AUTO) 10 % (0-12); NEUTROPHILS # (AUTO) 5.8 X 10^3 (1.8-7.8); NEUTROPHILS % (AUTO) 61 % (42-75); PLATELET COUNT 199 10^3/uL (130-400); RED BLOOD COUNT 3.87 10^6/uL (4.35-5.85); RED CELL DISTRIBUTION WIDTH 13.6 % (10.0-14.5); WHITE BLOOD COUNT 9.5 10^3/uL (4.3-11.0)
[2018-02-16 04:08] LABS: BUN/CREATININE RATIO 15; CALCIUM 9.5 MG/DL (8.5-10.1); CARBON DIOXIDE 21 MMOL/L (21-32); CHLORIDE 108 MMOL/L (98-107); CREATININE SERUM 1.07 MG/DL (0.60-1.30); GFR ESTIMATED > 60; GLUCOSE 104 MG/DL (70-105); MAGNESIUM 1.9 MG/DL (1.8-2.4); PHOSPHORUS 3.3 MG/DL (2.3-4.7); POTASSIUM 4.2 MMOL/L (3.6-5.0); SODIUM 139 MMOL/L (135-145)
[2018-02-16] MEDS: CATHETER FLUSH 10 ML SYR IV SCH ×3 (05:19→21:41)
[2018-02-16] MEDS: POTASSIUM CL 10MEQ/50ML IVPB 50 ML IV SCH (05:21)
[2018-02-16] MEDS: MAGNESIUM 1 GM/100 ML IVPB 100 ML IV SCH (05:22)
[2018-02-16] MEDS: KCL 20 MEQ TAB (K-DUR) PO SCH (05:22)
--- NOTE | 2018-02-16 07:33 | Cardiology Progress Note ---
Subjective Date Seen by Provider: Feb 16, 2018 Time Seen by Provider: 07:29 Subjective/Events-last exam Patient is laying down in bed, denied any chest pain, still on Cardizem drip, event since admission were reviewed. He denied any palpitation, yesterday he had an episode of tachycardia when the Cardizem drip was stopped. Review of Systems General: No Chills, No Night Sweats, No Fatigue, No Malaise, No Appetite, No Other HEENT: No Head Aches, No Visual Changes, No Eye Pain, No Ear Pain, No Dysphasia , No Sinus Congestion, No Post Nasal Drip, No Sore Throat, No Other Pulmonary: Dyspnea; No Cough, No Pleuritic Chest Pain, No Other Cardiovascular: Palpitations; No: Chest Pain, Orthopnea, Paroxysmal Noc. Dyspnea, Edema, Lt Headedness, Other Objective-Cardiology Exam Last Set of Vital Signs Vital Signs 02/16/18 02/16/18 04:02 06:00 Temp 97.2 Pulse 55 Resp 19 B/P (MAP) 131/66 (87) Pulse Ox 96 O2 Delivery Room Air Capillary Refill : Less Than 3 Seconds I&O Intake and Output 02/16/18 00:00 Intake Total 2805 ml Output Total 2875 ml Balance -70 ml Intake Oral 1680 ml IV Total 1125 ml Output Urine Total 2875 ml # Bowel Movements 1 General: Alert, Oriented X3, Cooperative HEENT: Atraumatic, PERRLA Neck: Supple, No JVD, No Thyromegaly Lungs: Clear to Auscultation, Normal Air Movement Heart: Normal S1, Normal S2, Other (Irregular, systolic murmur) Abdomen: Normal Bowel Sounds, Soft, No Tenderness, No Hepatosplenomegaly, No Masses Extremities: No Clubbing, No Cyanosis, No Edema, Normal Pulses, No Tenderness/ Swelling Skin: No Rashes, No Breakdown, No Significant Lesion Neuro: Normal Gait, Normal Speech, Strength at 5/5 X4 Ext, Normal Tone, Sensation Intact Psych/Mental Status: Mental Status NL, Mood NL Results Lab Laboratory Tests 02/16/18 03:23 A/P-Cardiology Admission Diagnosis Atrial flutter Tachycardia Coronary artery disease Hypertension Hyperlipidemia Assessment/Plan New onset of a-flutter with RVR, first documented on 02/13/18, dependent on Cardizem drip, planning to proceed with JIMY and electrical cardioversion today. Elevated troponin probably d/t rapid HR and relatively low bp, in the presence of CAD, continue to monitor at this time. No intervention is warranted Borderline hypotension. Brief syncopal episode on day of admission while walking to the BR at home of undetermined etiology. This was likely postural hypotension. No recurrence, continue to monitor CAD s/p CABG - cardiac cath of in Apr 2016 - difficult study, only non- selective shots of left cors, patent LMCA, LAD occluded, LCx not adequately visualized, patent jump graft to diag and OM, small RCA occluded and collateralized, normal LV function. RODRIGUEZ to LAD patent, but there was left subclavian stenosis that was successfully stented by Dr Martines on 04-18-10, no acute EKG changes, stress test done in August 2016 showing no significant ischemia or infarction, diffuse left ventricular hypokinesia with ejection fraction 41 percent. Echo of 02/13/18: LVEF 45-50%, mild to mod MR, mod TR, mild AI, PASP 30-35 mmHg Peripheral angiogram was done on November 26, 2017 which showed mild peripheral arterial disease, slightly tortuous iliac artery with no obstructive disease down to the foot and slightly ectatic abdominal aorta per Dr. Subramanian Hypothyroidism - TSH 1.89 on lab of 02-13-18 Hyperlipidemia - statin tx, continue to monitor Tobaccoism - advised to quit Carotid artery stenosis-mild nonobstructive disease per carotid duplex done in July 2017 History of malignant melanoma, followed and managed by Dr. Nelson History of prostate cancer, followed and managed by Dr. Nelson. Pulmonary nodule noted incidentally on a CT scan done on July 18, 2016, recommended reevaluating CT scan in 4-6 months, followed and managed by Dr. Abbey Nelson and Dr. Benito H/o rotator cuff surgery Symptoms suggestive of sleep apnea KAYLEY SUBRAMANIAN MD Feb 16, 2018 07:33
--- NOTE | 2018-02-16 07:34 | Cardiac Procedure Note-CS/ASA ---
Pre-Procedure Note Pre-Op Procedure Note H&P Reviewed The H&P was reviewed, patient examined and no changes noted. Date H&P Reviewed: Feb 16, 2018 Time H&P Reviewed: 07:34 Conscious Sedation Pre-Proced Time 07:34 ASA Score 3 For ASA 3 and 4: Consider anesthesia and medical clearance. Also, for patients with a history of failed moderate sedation consider anesthesia. Airway Lungs Heart ASA score ASA 1: a normal healthy patient ASA 2: a patient with a mild systemic disease (mid diabetes, controlled hypertension, obesity x ASA 3: a patient with a severe systemic disease that limits activity (angina , COPD, prior Myocardial infarction) ASA 4: a patient with an incapacitating disease that is a constant threat to life (CHF, renal failure) ASA 5: a moribund patient not expected to survive 24 hrs. (ruptured aneurysm) ASA 6: a declared brain patient whose organs are being harvested. For emergent operations, add the letter E after the classification Mallampati Classification Grade 3 Sedation Plan Analgesia, Amnesia, Plan communicated to team members, Discussed options with patient/fam, Discussed risks with patient/fam The patient is an appropriate candidate to undergo the planned procedure, sedation, and anesthesia. The patient immediately re-assessed prior to indication. KAYLEY LAMBERT MD Feb 16, 2018 07:34
[2018-02-16] MEDS ORDERED: LIDOCAINE 2% VISCOUS 15 ML UDC ONE (07:57)
--- NOTE | 2018-02-16 08:13 | Cardioversion ---
Cardioversion PROCEDURE PHYSICIAN: Kayley Subramanian DATE OF PROCEDURE: 02/16/18 DIRECT EXTERNAL ELECTRICAL CARDIOVERSION: Indications: Atrial Flutter Preoperative diagnoses: Atrial Flutter Postoperative diagnosis: Sinus rhythm, Successful Electrical Cardioversion Anesthesia: By Anesthesia services Complications: None Specimen: None Contrast: 0 Flouroscopy: none Procedure Details: The patient was brought the medical laboratory scientist after informed consent was taken, all the risks and complications were explained including the risk of stroke. Electrical cardioversion was carried out with anesthesia support with propofol. 120 joules of synchronized shock was delivered through external patches which promptly restored sinus rhythm. The patient tolerated the procedure well. Conclusions: Successful electrical cardioversion in terminating atrial flutter KAYLEY SUBRAMANIAN MD Feb 16, 2018 08:13
[2018-02-16] MEDS ORDERED: AMIODARONE FOR BOLUS 150 MG in D5W 100 ML IVPB 100 ML IV NR (08:15)
[2018-02-16] MEDS ORDERED: LIDOCAINE 2% VISCOUS 15 ML UDC PO NR (08:15)
[2018-02-16] MEDS ORDERED: proPOfol 200 MG/20 ML (DIPRIVAN) VIAL IV ONE (08:17)
--- NOTE | 2018-02-16 08:30 | Anesthesia-Procedure Note ---
Procedures/Interventions Procedure Start/Stop/Diagnosis Date of Procedure: Feb 16, 2018 Start Time: 08:00 Referring Physician: Dr Subramanian Preprocedural Diagnosis: Atrial Flutter Brief History Called to ICU for sedation (MAC) for JIMY/cardioversion. A brief history was obtained from patient and Dr Subramanian. NPO status verified. Spontaneous ventilation maintained throughout and patient tolerated the procedure well. Will be available if needed. Stop Time: 08:10 Postprocedural Diagnosis: Sinus rhythm JIMY/Cardioversion Anesthesia Type: MAC ASA Class: 3 Medications Propofol 90 mg IV in divided doses Monitors and Equipment: BP Cuff - Left, Continuous EKG, End Tidal CO2, IV, Pulse Oximeter, V Lead EKG PHYLICIA HAILE DO Feb 16, 2018 08:30
[2018-02-16] MEDS: AMIODARONE INJECTION 450 MG in D5W IV SOLUTION (EXCEL) 250 ML IV SCH ×2 (08:46→16:56)
[2018-02-16] MEDS: MAGNESIUM OXIDE (MAG-OX)400 MG TAB PO SCH (08:48)
[2018-02-16] MEDS: MULTIVIT W/MINERALS TAB (THERAGRAN M) PO SCH (08:48)
[2018-02-16] MEDS: meTOproloL SUCCINATE 50 MG (TOPROL XL) TAB PO SCH (08:48)
[2018-02-16] MEDS: ALLOPURINOL 100 MG (ZYLOPRIM) TAB PO SCH ×2 (08:48→21:41)
[2018-02-16] MEDS: APIXABAN 5 MG (ELIQUIS) TABLET PO SCH ×2 (08:48→21:39)
[2018-02-16] MEDS: ASPIRIN 81 MG CHEW (CHILDREN'S ASA) PO SCH (08:48)
[2018-02-16] MEDS: AMIODARONE 200 MG (CORDARONE) TAB PO SCH ×2 (08:48→21:39)
[2018-02-16] MEDS: LEVOTHYROXINE 50 MCG (LEVOTHROID) TAB PO SCH (08:48)
[2018-02-16] MEDS: RANOLAZINE ER 500 MG TAB (RANEXA) PO SCH ×2 (08:49→21:39)
[2018-02-16] MEDS: PANTOPRAZOLE 40 MG (PROTONIX) TAB PO SCH (08:49)
--- NOTE | 2018-02-16 09:17 | Progress Note ---
Objective Exam Last Set of Vital Signs Vital Signs Date Time Temp Pulse Resp B/P (MAP) Pulse Ox O2 Delivery O2 Flow Rate FiO2 02/16/18 07:00 76 02/16/18 06:00 19 131/66 (87) 96 Room Air 02/16/18 04:02 97.2 Capillary Refill : Less Than 3 Seconds I&O Intake and Output 02/16/18 00:00 Intake Total 2805 ml Output Total 2875 ml Balance -70 ml Intake Oral 1680 ml IV Total 1125 ml Output Urine Total 2875 ml # Bowel Movements 1 General: Alert, Oriented X3, Cooperative HEENT: Atraumatic, PERRLA Neck: Supple, No JVD, No Thyromegaly Lungs: Clear to Auscultation, Normal Air Movement Heart: Normal S1, Normal S2, Other (Irregular, systolic murmur) Abdomen: Normal Bowel Sounds, Soft, No Tenderness, No Hepatosplenomegaly, No Masses Extremities: No Clubbing, No Cyanosis, No Edema, Normal Pulses, No Tenderness/ Swelling Skin: No Rashes, No Breakdown, No Significant Lesion Neuro: Normal Gait, Normal Speech, Strength at 5/5 X4 Ext, Normal Tone, Sensation Intact Psych/Mental Status: Mental Status NL, Mood NL Results Lab Laboratory Tests 02/16/18 03:23: White Blood Count 9.5, Red Blood Count 3.87L, Hemoglobin 13.9, Hematocrit 39L, Mean Corpuscular Volume 102H, Mean Corpuscular Hemoglobin 36H, Mean Corpuscular Hemoglobin Concent 35, Red Cell Distribution Width 13.6, Platelet Count 199, Mean Platelet Volume 9.4, Neutrophils (%) (Auto) 61, Lymphocytes (%) (Auto) 23, Monocytes (%) (Auto) 10, Eosinophils (%) (Auto) 5, Basophils (%) (Auto) 1, Neutrophils # (Auto) 5.8, Lymphocytes # (Auto) 2.2, Monocytes # (Auto) 1.0, Eosinophils # (Auto) 0.5H, Basophils # (Auto) 0.1, Sodium Level 139, Potassium Level 4.2, Chloride Level 108H, Carbon Dioxide Level 21, Anion Gap 10, Blood Urea Nitrogen 16, Creatinine 1.07, Estimat Glomerular Filtration Rate > 60, BUN/ Creatinine Ratio 15, Glucose Level 104, Calcium Level 9.5, Phosphorus Level 3.3 , Magnesium Level 1.9 FARRUKH SCOTT MD Feb 16, 2018 09:17
--- NOTE | 2018-02-16 09:24 | Diagnostic Imaging Report ---
INDICATION: Dyspnea. TECHNIQUE: Single frontal view of the chest. COMPARISON: 02/15/2018 FINDINGS: There are mildly prominent interstitial opacities in lungs bilaterally, which appear stable since the prior study. No pleural effusion or pneumothorax is seen. The cardiac silhouette is mildly large, but stable. Sternotomy wires are noted. No acute osseous abnormality is seen. IMPRESSION: Mildly prominent interstitial opacities bilaterally, appear chronic. No new consolidation is seen. There is stable cardiomegaly. Dictated by: Dictated on workstation # [id number]
[2018-02-16] MEDS: NS IV 1000 ML 1,000 ML IV SCH ×2 (10:18→17:06)
--- NOTE | 2018-02-16 15:02 | Anesthesia-General Post-Op ---
MAC Patient Condition Mental Status/LOC: Same as Preop Cardiovascular: Satisfactory Nausea/Vomiting: Absent Respiratory: Satisfactory Pain: Controlled Complications: Absent Post Op Complications Complications None Follow Up Care/Instructions Patient Instructions None needed. Anesthesiology Discharge Order Discharge Order Patient was seen after the procedure and he was doing well, no complaints, stable vital signs, no apparent adverse anesthesia problems. PHYLICIA HAILE DO Feb 16, 2018 15:02
[2018-02-16] MEDS: TAMSULOSIN 0.4 MG (FLOMAX) CAP PO SCH (17:00)
[2018-02-16] MEDS: ATORVASTATIN 40 MG (LIPITOR) TABLET PO SCH (21:39)
[2018-02-16] MEDS: CALCIUM CARB + VIT D 600 MG (CALCARB + D) TAB PO SCH (21:39)
[2018-02-17] VITALS (13 sets, daily range): BP systolic 105–132; BP diastolic 62–88
[2018-02-17] MEDS ORDERED: ACETAMINOPHEN 325 MG TABLET PO PRN (02:45)
[2018-02-17] MEDS: NS IV 1000 ML 1,000 ML IV SCH (04:12)
[2018-02-17 04:21] LABS: BASOPHILS % (AUTO) 0 % (0-10); EOSINOPHILS # (AUTO) 0.3 10^3/uL (0.0-0.3); EOSINOPHILS % (AUTO) 2 % (0-10); HEMATOCRIT 41 % (40-54); HEMOGLOBIN 14.2 G/DL (13.3-17.7); LYMPHOCYTES # (AUTO) 1.3 X 10^3 (1.0-4.0); LYMPHOCYTES % (AUTO) 10 % (12-44); MEAN CORPUSCULAR HEMOGLOBIN 35 PG (25-34); MEAN CORPUSCULAR HGB CONC 35 G/DL (32-36); MEAN CORPUSCULAR VOLUME 101 FL (80-99); MEAN PLATELET VOLUME 9.4 FL (7.4-10.4); MONOCYTES # (AUTO) 1.1 X 10^3 (0.0-1.0); MONOCYTES % (AUTO) 8 % (0-12); NEUTROPHILS # (AUTO) 10.2 X 10^3 (1.8-7.8); NEUTROPHILS % (AUTO) 79 % (42-75); PLATELET COUNT 198 10^3/uL (130-400); RED BLOOD COUNT 4.07 10^6/uL (4.35-5.85); RED CELL DISTRIBUTION WIDTH 13.5 % (10.0-14.5); WHITE BLOOD COUNT 12.9 10^3/uL (4.3-11.0)
[2018-02-17 04:42] LABS: BUN/CREATININE RATIO 12; CALCIUM 9.4 MG/DL (8.5-10.1); CARBON DIOXIDE 20 MMOL/L (21-32); CHLORIDE 106 MMOL/L (98-107); GFR ESTIMATED > 60; GLUCOSE 107 MG/DL (70-105); MAGNESIUM 1.9 MG/DL (1.8-2.4); POTASSIUM 4.2 MMOL/L (3.6-5.0); SODIUM 138 MMOL/L (135-145)
[2018-02-17] MEDS: POTASSIUM CL 10MEQ/50ML IVPB 50 ML IV SCH (05:43)
[2018-02-17] MEDS: MAGNESIUM 1 GM/100 ML IVPB 100 ML IV SCH (05:44)
[2018-02-17] MEDS: KCL 20 MEQ TAB (K-DUR) PO SCH (05:44)
[2018-02-17] MEDS: CATHETER FLUSH 10 ML SYR IV SCH (06:06)
--- NOTE | 2018-02-17 07:35 | Cardiology Progress Note ---
Subjective Date Seen by Provider: Feb 17, 2018 Time Seen by Provider: 07:33 Subjective/Events-last exam Patient had episodes of hypoxemia while sleeping with oxygen sat around 80s. Probably has underlying sleep apnea. Denied any chest pain or palpitation, still in sinus rhythm Review of Systems General: No Chills, No Night Sweats, No Fatigue, No Malaise, No Appetite, No Other HEENT: No Head Aches, No Visual Changes, No Eye Pain, No Ear Pain, No Dysphasia , No Sinus Congestion, No Post Nasal Drip, No Sore Throat, No Other Pulmonary: No Dyspnea, No Cough, No Pleuritic Chest Pain, No Other Cardiovascular: No: Chest Pain, Palpitations, Orthopnea, Paroxysmal Noc. Dyspnea, Edema, Lt Headedness, Other Objective-Cardiology Exam Last Set of Vital Signs Vital Signs 02/17/18 06:00 Pulse 88 Resp 35 B/P (MAP) 122/81 (95) Pulse Ox 94 O2 Delivery Nasal Cannula O2 Flow Rate 2.00 Capillary Refill : Less Than 3 Seconds I&O Intake and Output 02/17/18 00:00 Intake Total 1663 ml Output Total 3000 ml Balance -1337 ml Intake Oral 1560 ml IV Total 103 ml Output Urine Total 3000 ml General: Alert, Oriented X3, Cooperative HEENT: Atraumatic, PERRLA Neck: Supple, No JVD, No Thyromegaly Lungs: Clear to Auscultation, Normal Air Movement Heart: Normal S1, Normal S2, Other (Irregular, systolic murmur) Abdomen: Normal Bowel Sounds, Soft, No Tenderness, No Hepatosplenomegaly, No Masses Extremities: No Clubbing, No Cyanosis, No Edema, Normal Pulses, No Tenderness/ Swelling Skin: No Rashes, No Breakdown, No Significant Lesion Neuro: Normal Gait, Normal Speech, Strength at 5/5 X4 Ext, Normal Tone, Sensation Intact Psych/Mental Status: Mental Status NL, Mood NL Results Lab Laboratory Tests 02/17/18 03:55 A/P-Cardiology Admission Diagnosis Atrial flutter Tachycardia Coronary artery disease Hypertension Hyperlipidemia Assessment/Plan New onset of a-flutter with RVR, first documented on 02/13/18, dependent on Cardizem drip, status post cardioversion, currently in sinus rhythm. Okay for discharge from cardiology standpoint Transient hypoxemia while falling asleep last night, probably has sleep apnea, consider sleep study as an outpatient. Elevated troponin probably d/t rapid HR and relatively low bp, in the presence of CAD, continue to monitor at this time. No intervention is warranted, conservative management Borderline hypotension. Brief syncopal episode on day of admission while walking to the BR at home of undetermined etiology. This was likely postural hypotension. No recurrence, continue to monitor CAD s/p CABG - cardiac cath of in Apr 2016 - difficult study, only non- selective shots of left cors, patent LMCA, LAD occluded, LCx not adequately visualized, patent jump graft to diag and OM, small RCA occluded and collateralized, normal LV function. RODRIGUEZ to LAD patent, but there was left subclavian stenosis that was successfully stented by Dr Martines on 04-18-10, no acute EKG changes, stress test done in August 2016 showing no significant ischemia or infarction, diffuse left ventricular hypokinesia with ejection fraction 41 percent. Echo of 02/13/18: LVEF 45-50%, mild to mod MR, mod TR, mild AI, PASP 30-35 mmHg Peripheral angiogram was done on November 26, 2017 which showed mild peripheral arterial disease, slightly tortuous iliac artery with no obstructive disease down to the foot and slightly ectatic abdominal aorta per Dr. Subramanian Hypothyroidism - TSH 1.89 on lab of 02-13-18 Hyperlipidemia - statin tx, continue to monitor Tobaccoism - advised to quit Carotid artery stenosis-mild nonobstructive disease per carotid duplex done in July 2017 History of malignant melanoma, followed and managed by Dr. Nelson History of prostate cancer, followed and managed by Dr. Nelson. Pulmonary nodule noted incidentally on a CT scan done on July 18, 2016, recommended reevaluating CT scan in 4-6 months, followed and managed by Dr. Abbey Nelson and Dr. Benito H/o rotator cuff surgery Symptoms suggestive of sleep apnea Okay for discharge from cardiology standpoint, need to be on amiodarone and Eliquis, consider sleep study as an outpatient KAYLEY SUBRAMANIAN MD Feb 17, 2018 07:35
[2018-02-17] MEDS ORDERED: APIX5TAB PO (07:38)
[2018-02-17] MEDS ORDERED: AMIO200T4 PO (07:38)
[2018-02-17] MEDS: AMIODARONE 200 MG (CORDARONE) TAB PO SCH (08:14)
[2018-02-17] MEDS: LEVOTHYROXINE 50 MCG (LEVOTHROID) TAB PO SCH (08:14)
[2018-02-17] MEDS: meTOproloL SUCCINATE 50 MG (TOPROL XL) TAB PO SCH (08:14)
[2018-02-17] MEDS: MULTIVIT W/MINERALS TAB (THERAGRAN M) PO SCH (08:14)
[2018-02-17] MEDS: RANOLAZINE ER 500 MG TAB (RANEXA) PO SCH (08:14)
[2018-02-17] MEDS: MAGNESIUM OXIDE (MAG-OX)400 MG TAB PO SCH (08:14)
[2018-02-17] MEDS: PANTOPRAZOLE 40 MG (PROTONIX) TAB PO SCH (08:14)
[2018-02-17] MEDS: ASPIRIN 81 MG CHEW (CHILDREN'S ASA) PO SCH (08:15)
[2018-02-17] MEDS: APIXABAN 5 MG (ELIQUIS) TABLET PO SCH (08:15)
[2018-02-17] MEDS: ALLOPURINOL 100 MG (ZYLOPRIM) TAB PO SCH (08:15)
--- NOTE | 2018-02-17 08:20 | Discharge Summary ---
Diagnosis/Chief Complaint Date of Admission Feb 13, 2018 at 13:38 Date of Discharge Discharge Summary Discharge Physical Examination Allergies: Coded Allergies: No Known Drug Allergies (Verified , 02/23/08) Vitals & I&Os Vital Signs Date Time Temp Pulse Resp B/P (MAP) Pulse Ox O2 Delivery O2 Flow Rate FiO2 02/17/18 06:00 88 35 122/81 (95) 94 Nasal Cannula 2.00 02/17/18 04:15 99.1 General Appearance: Alert, Oriented X3, Cooperative HEENT: Atraumatic, PERRLA Respiratory: Clear to Auscultation, Normal Air Movement Cardiovascular: Normal S1, Normal S2, Other (Irregular, systolic murmur) Abdominal: Normal Bowel Sounds, Soft, No Tenderness, No Hepatosplenomegaly, No Masses Extremities: No Clubbing, No Cyanosis, No Edema, Normal Pulses, No Tenderness/ Swelling Skin: No Rashes, No Breakdown, No Significant Lesion Neuro: Normal Gait, Normal Speech, Strength at 5/5 X4 Ext, Normal Tone, Sensation Intact Psych/Mental Status: Mental Status NL, Mood NL Hospital Course Pending Labs Laboratory Tests 02/17/18 03:55: White Blood Count 12.9, Red Blood Count 4.07, Hemoglobin 14.2, Hematocrit 41, Mean Corpuscular Volume 101, Mean Corpuscular Hemoglobin 35, Mean Corpuscular Hemoglobin Concent 35, Red Cell Distribution Width 13.5, Platelet Count 198, Mean Platelet Volume 9.4, Neutrophils (%) (Auto) 79, Lymphocytes (%) (Auto) 10, Monocytes (%) (Auto) 8, Eosinophils (%) (Auto) 2, Basophils (%) (Auto) 0, Neutrophils # (Auto) 10.2, Lymphocytes # (Auto) 1.3, Monocytes # (Auto) 1.1, Eosinophils # (Auto) 0.3, Basophils # (Auto) 0.0, Sodium Level 138, Potassium Level 4.2, Chloride Level 106, Carbon Dioxide Level 20, Anion Gap 12, Blood Urea Nitrogen 13, Creatinine 1.10, Estimat Glomerular Filtration Rate > 60, BUN/ Creatinine Ratio 12, Glucose Level 107, Calcium Level 9.4, Phosphorus Level 3.0 , Magnesium Level 1.9 Discharge Instructions to patient/family Please see electronic discharge instructions given to patient. Discharge Medications Reviewed and agree with Discharge Medication list on patient's Discharge Instruction sheet FARRUKH SCOTT MD Feb 17, 2018 08:20
--- NOTE | 2018-02-17 08:23 | Discharge Inst-Complex ---
PDI Med Rec & Follow Up Appt. New Medications: Amiodarone HCl (Amiodarone HCl) 200 Mg Tablet 200 MG PO UD, #100 TAB 2 Refills Take 400 mg twice daily for one week then 200 mg twice daily for 4 weeks then 200 mg daily Apixaban (Eliquis) 5 Mg Tablet 5 MG PO BID, #60 TAB 4 Refills Continued Medications: Allopurinol (Allopurinol) 100 Mg Tablet 200 MG PO DAILY, TAB TAKES 2 (100MG) TABLETS Allopurinol (Allopurinol) 100 Mg Tablet 100 MG PO HS, TAB Aspirin (Aspirin EC) 81 Mg Tablet.dr 81 MG PO HS, TAB Atorvastatin Calcium (Atorvastatin Calcium) 40 Mg Tablet 40 MG PO HS, TAB Calcium Carbonate/Vitamin D3 (Calcium 600 + Vit D Caplet) 1 Each Tablet 1 TAB PO HS, TAB Doxazosin Mesylate (Doxazosin Mesylate) 4 Mg Tablet 4 MG PO HS, TAB Flaxseed Oil (Flax Seed Oil) 1,000 Mg Capsule 3500 MG PO HS, CAP Hydrocodone/Acetaminophen (Hydrocodon-Acetaminophn 10-325) 1 Each Tablet 1-2 TAB PO Q4H PRN for PAIN-MODERATE, TAB Levothyroxine Sodium (Levothyroxine Sodium) 50 Mcg Tablet 50 MCG PO DAILY, TAB Lisinopril (Lisinopril) 5 Mg Tablet 2.5 MG PO BID, TAB TAKES 1/2 (5MG) TABLET Magnesium Oxide (Magnesium) 400 Mg Capsule 400 MG PO DAILY, CAP Metoprolol Succinate (Metoprolol Succinate) 25 Mg Tab.er.24h 25 MG PO DAILY, TAB Multivitamin (Multi-Vitamin Daily) 1 Each Tablet 1 TAB PO DAILY, TAB Pantoprazole Sodium (Pantoprazole Sodium) 40 Mg Tablet.dr 40 MG PO DAILY, TAB Potassium Gluconate (Potassium) 99 Mg Tablet 99 MG PO DAILY, TAB Ranolazine (Ranexa) 1,000 Mg Tab.er.12h 1000 MG PO BID, TAB Vitamin B Complex & Vit C No.4 (Super B Complex) 150 Mg Tablet 150 MG PO DAILY, TAB Discontinued Medications: Clopidogrel Bisulfate (Clopidogrel) 75 Mg Tablet 75 MG PO HS, TAB Prescription: Transmitted to Pharmacy Patient Instructions: APPT WITH DR. LAMBERT IN ONE WEEK APPT WITH DR. SCOTT IN ONE WEEK SLEEP STUDY WILL BE SET UP Activity, Diet and PDI Resume Normal Activity: Yes Discharge Diet: Low Fat/Low Cholesterol Diet for 24 Hours: No Alcohol Drink 6-8 Glasses of Fluid/Day: Yes Driving Instructions: No Driving for 24 Hours Avoid ALL Tobacco Products: Smoking of Any Kind Return to The Hospital For: RECURRENT CHEST PAIN, SHORTNESS OF BREATH, ANY CONCERN FOR LIFETHREATENING ILLNESS OR INJURY Symptoms to Reoprt to DrMackenzie: Bleeding Excessive, Fever Over 101 Degrees F, Pain/ Pressure in Chest, Shortness of Breath For Problems or Questions: Contact Your Physician, Go to Emergency Room FARRUKH SCOTT MD Feb 17, 2018 08:23
[2018-02-17] MEDS ORDERED: CEFD300C3 PO (08:35)
--- NOTE | 2018-02-17 10:39 | Diagnostic Imaging Report ---
Portable erect AP chest at 3:50. Indication: Dyspnea. The heart is borderline enlarged but stable when compared to 02/16/2018. The sternotomy wires and Surgiclips noted previously are again evident and no different. The interstitial densities in both lungs are somewhat prominent but essentially unchanged when compared to the prior study. There is no evidence for overt failure and there is no sign of pneumonia. There is no significant pleural effusion identified either. The mediastinum is not widened. The osseous structures are intact. Impression: Stable chest. There has been no significant change since the prior exam. Dictated by: Dictated on workstation # [id number]
== END 2018-02-17 10:50 | disposition home or self-care (01) | DRG 309 ==
LOC: EDUNIT# 11:44 → ER 11:45 → ICU 13:38
PROVIDERS: ADMIT Internal Medicine; ATTEND Internal Medicine
PROC: 5A2204Z Restoration of Cardiac Rhythm, Single (ICD-10-PCS; principal; 2018-02-16)
PROC: B246ZZ4 Ultrasonography of Right and Left Heart, Transesophageal (ICD-10-PCS; 2018-02-16)
DX: I48.92 Unspecified atrial flutter (principal); I25.110 Atherosclerotic heart disease of native coronary artery with unstable angina pectoris; R79.89 Other specified abnormal findings of blood chemistry; I10 Essential (primary) hypertension; I95.9 Hypotension, unspecified; E03.9 Hypothyroidism, unspecified; R06.81 Apnea, not elsewhere classified; E78.5 Hyperlipidemia, unspecified; I73.9 Peripheral vascular disease, unspecified; I77.1 Stricture of artery; I77.811 Abdominal aortic ectasia; R91.1 Solitary pulmonary nodule; F17.210 Nicotine dependence, cigarettes, uncomplicated; K21.9 Gastro-esophageal reflux disease without esophagitis; R09.02 Hypoxemia; M19.91 Primary osteoarthritis, unspecified site; I34.0 Nonrheumatic mitral (valve) insufficiency; G47.30 Sleep apnea, unspecified; M54.9 Dorsalgia, unspecified; M10.9 Gout, unspecified; Z95.5 Presence of coronary angioplasty implant and graft; Z95.1 Presence of aortocoronary bypass graft; Z85.820 Personal history of malignant melanoma of skin; I65.23 Occlusion and stenosis of bilateral carotid arteries; Z85.46 Personal history of malignant neoplasm of prostate
CPT/HCPCS: 36415; 71045; 80048; 80053; 80061; 83735; 83874; 84100; 84439; 84443; 84484; 85025; 85610; 85730; 93005; 93041; 93306; 93312; 93320; 93325; 96361; 96365; 96366; 96375

== ENCOUNTER 2018-03-12 05:34 | Outpatient (CLI) | payer MEDICARE, BC ==
[~2018-03-12] VITALS: Ht 182.9 cm; Wt 96.6 kg
[~2018-03-12 05:34] MED LIST changes: +AMIO200T4 PO; +APIX5TAB PO; +ASPI-983 PO; +CALC-694 PO; +CEFD300C3 PO; +LEVO50TA6 PO; +LISI-556 PO; +METO-387 PO; +PANT40TA3 PO
[2018-03-12] MEDS ORDERED: VITA1TAB17 PO (10:32)
== END 2018-03-12 10:34 | disposition home or self-care (01) ==
LOC: PREOP 05:34
PROVIDERS: ATTEND Internal Medicine Interventional Cardiology
DX: Z01.818 Encounter for other preprocedural examination (principal)

== ENCOUNTER 2018-03-16 08:58 | Day surgery (SDC) | payer MEDICARE, BC ==
[2018-03-16] VITALS (7 sets, daily range): BP systolic 98–120; BP diastolic 56–73
[~2018-03-16] VITALS: Ht 182.9 cm; Wt 96.6 kg
[~2018-03-16 08:58] MED LIST changes: +VITA1TAB17 PO
[2018-03-16] MEDS ORDERED: NS IV 1000 ML 1,000 ML ONE (09:05)
[2018-03-16] MEDS ORDERED: HEParin (CATH LAB) 1,000 ML IV ONE ×2 (09:05→11:15)
[2018-03-16] MEDS ORDERED: LIDOCAINE 1% INJ 20 ML 20 ML VIAL ONE (09:05)
[2018-03-16] MEDS ORDERED: NS IV 1000 ML 1,000 ML IV SCH ×2 (09:09→13:03)
[2018-03-16] MEDS ORDERED: ISOPROTERENOL 0.2 MG/100 ML D5W IV ONE (09:15)
[2018-03-16 09:38] LABS: HEMOGLOBIN 14.8 G/DL (13.3-17.7); MEAN PLATELET VOLUME 9.4 FL (7.4-10.4); RED BLOOD COUNT 4.27 10^6/uL (4.35-5.85); RED CELL DISTRIBUTION WIDTH 13.8 % (10.0-14.5); WHITE BLOOD COUNT 8.8 10^3/uL (4.3-11.0)
[2018-03-16 09:51] LABS: INR 1.3 (0.8-1.4); PROTHROMBIN TIME PATIENT 16.5 SEC (12.2-14.7)
[2018-03-16 09:57] LABS: ALBUMIN 4.5 GM/DL (3.2-4.5); BILIRUBIN,TOTAL 0.9 MG/DL (0.1-1.0); CALCIUM 9.7 MG/DL (8.5-10.1); CREATININE SERUM 1.33 MG/DL (0.60-1.30); POTASSIUM 4.6 MMOL/L (3.6-5.0)
[2018-03-16] MEDS ORDERED: APIX5TAB PO (10:03)
[2018-03-16] MEDS ORDERED: MAGN400T39 PO (10:05)
[2018-03-16] MEDS ORDERED: MULT-974 PO ×2 (10:06→10:07)
[2018-03-16] MEDS ORDERED: VITA-189 PO (10:08)
--- OUTSIDE RECORDS SUMMARY | 2018-03-16 10:18 | XMS REPORT | CCD ---
Author Author [facility] Organization [facility] Address [address] [place] [address] Phone Care Team Providers Care [employer] Worker Name Role Phone PP Unavailable CCM Unavailable Summary Purpose Interface Exchange Insurance Providers Payer name Policy type / Coverage type Covered constitution party ID Effective Begin Date Effective End Date WPS Medicare Part B Medicare Part B [id number] Unknown [facility] Medicare Part B [id number] Unknown Family history Mother Diagnosis Age At Onset Heart Attack Unknown Arthritis Unknown Dementia Unknown Grandfather Diagnosis Age At Onset Leukemia Unknown Father Diagnosis Age At Onset Hypertension Unknown Arthritis Unknown Heart Attack Unknown Social History Social History Element Codes Description Effective Dates Marital status Unknown Zoe 10/04/2015 Number of children Unknown 3 10/06/2014 Employment Unknown Retired 10/06/[address]: 28387985 Current every day smoker 10/06/2014 Number of years using tobacco Unknown > 50 10/06/2014 Number of cigarettes/day Unknown 10 ( Half a pack) 10/06/2014 Allergies, Adverse Reactions, Alerts Substance Reaction Codes Entered Date Inactivated Date Status * NO KNOWN DRUG ALLERGIES Unknown 08/29/2014 No Inactive Date Active Past Medical History Illness Codes Condition Status Onset Date Resolved Date Cough ICD-9: 786.2 ICD-10: R05 Active 02/24/2018 Unknown Essential (primary) hypertension ICD-9: 401.1 ICD-10: I10 Active 07/02/2016 Unknown Paroxysmal atrial fibrillation ICD-9: 427.31 ICD-10: I48.0 Active 02/24/2018 Unknown Encounter for immunization ICD-9: V04.81 ICD-10: Z23 [...] Problems Condition Codes Effective Dates Condition Status Cough ICD-9: 786.2 ICD-10: R05 02/24/2018 Active Essential (primary) hypertension ICD-9: 401.1 ICD-10: I10 07/02/2016 Active Paroxysmal atrial fibrillation ICD-9: 427.31 ICD-10: I48.0 02/24/2018 Active Encounter for immunization ICD-9: V04.81 ICD-10: Z23 [...] hydrocodone 10 mg-acetaminophen 325 mg tablet RxNorm: 904542 1-2 Tablet(s) PO Q4 PRN as needed for pain 03/02/20182017 Active Ranexa 1,000 mg tablet,extended release RxNorm: 784446 1 Tablet(s) PO BID 02/24/2018 No Stop Date Active levothyroxine 50 mcg tablet RxNorm: 851895 1 TABLET(S) PO DAILY 02/10/2018 11/06/2018 Active hydrocodone 10 mg-acetaminophen 325 mg tablet RxNorm: 823649 1-2 Tablet(s) PO Q4 PRN as needed for pain 02/02/20182017 Inactive pantoprazole 40 mg tablet,delayed release RxNorm: 016081 1 Tablet(s) PO daily 01/16/2018 01/10/2019 Active metoprolol succinate ER 25 mg tablet,extended release 24 hr RxNorm: 178134 1 TABLET(S) PO DAILY 01/13/2018 10/09/2018 Active hydrocodone 10 mg-acetaminophen 325 mg tablet RxNorm: 064077 1-2 Tablet(s) PO Q4 PRN as needed for pain 12/31/20172017 Inactive hydrocodone 10 mg-acetaminophen 325 mg tablet RxNorm: 938151 1-2 Tablet(s) PO Q4 PRN as needed for pain 11/28/20172017 Inactive hydrocodone 10 mg-acetaminophen 325 mg tablet RxNorm: 972050 1-2 Tablet(s) PO Q4 PRN as needed for pain 10/24/20172017 Inactive hydrocodone 10 mg-acetaminophen 325 mg tablet RxNorm: 874676 1-2 Tablet(s) PO Q4 PRN as needed for pain 09/26/20172017 Inactive doxazosin 4 mg tablet RxNorm: 443422 1 TABLET(S) PO DAILY 201708/19/2018 Active allopurinol 100 mg tablet RxNorm: 272466 3 TABLET(S) PO DAILY - 2 IN THE AM AND 1 AT HS 08/04/2017 04/30/2018 Active hydrocodone 10 mg-acetaminophen 325 mg tablet RxNorm: 948932 1-2 Tablet(s) PO Q4 PRN as needed for pain 07/31/20172017 Inactive Hysingla ER 120 mg tablet, crush resistant, extended release RxNorm: 4113557 1 Tablet(s) PO daily 07/31/20172017 Inactive hydrocodone 10 mg-acetaminophen 325 mg tablet RxNorm: 814557 1-2 Tablet(s) PO Q4 PRN as needed for pain 07/03/20172017 Inactive Lipitor 40 mg tablet RxNorm: 921516 1 Tablet(s) PO daily 201705/29/2018 Active hydrocodone 10 mg-acetaminophen 325 mg tablet RxNorm: 139359 1-2 Tablet(s) PO Q4 PRN as needed for pain 06/04/20172017 Inactive Tessalon 200 mg capsule RxNorm: 525088 1 Capsule(s) PO TID as needed cough 05/30/2017 06/03/2017 Inactive Zithromax Z-Elmer 250 mg tablet RxNorm: 385321 1 Tablet(s) PO UD 05/30/2017 12/08/2017 Inactive Tessalon 200 mg capsule RxNorm: 511438 1 Capsule(s) PO TID as needed cough 05/30/2017 05/29/2017 Inactive levothyroxine 50 mcg tablet RxNorm: 381192 1 TABLET(S) PO DAILY 05/05/2017 01/29/2018 Inactive metoprolol succinate ER 25 mg tablet,extended release 24 hr RxNorm: 315317 1 TABLET(S) PO DAILY 04/08/2017 01/02/2018 Inactive hydrocodone 10 mg-acetaminophen 325 mg tablet RxNorm: 524424 1-2 Tablet(s) PO Q4 PRN as needed for pain 04/04/20172017 Inactive hydrocodone 10 mg-acetaminophen 325 mg tablet RxNorm: 589797 1-2 Tablet(s) PO Q4 PRN as needed for pain 03/03/20172016 Inactive hydrocodone 10 mg-acetaminophen 325 mg tablet RxNorm: 509563 1-2 Tablet(s) PO Q4 PRN as needed for pain 01/30/20172016 Inactive hydrocodone 10 mg-acetaminophen 325 mg tablet RxNorm: 992191 1-2 Tablet(s) PO Q4 PRN as needed for pain 01/01/20172016 Inactive hydrocodone 10 mg-acetaminophen 325 mg tablet RxNorm: 658218 1-2 Tablet(s) PO Q4 PRN as needed for pain 12/02/20162016 Inactive hydrocodone 10 mg-acetaminophen 325 mg tablet RxNorm: 656143 1-2 Tablet(s) PO Q4 PRN as needed for pain 10/31/20162016 Inactive hydrocodone 10 mg-acetaminophen 325 mg tablet RxNorm: 993803 1-2 Tablet(s) PO Q4 PRN as needed for pain 10/03/20162016 Inactive pantoprazole 40 mg tablet,delayed release RxNorm: 030624 1 Tablet(s) PO daily 09/02/2016 12/03/2017 Inactive hydrocodone 10 mg-acetaminophen 325 mg tablet RxNorm: 467527 1-2 Tablet(s) PO Q4 PRN as needed for pain 08/30/20162016 Inactive pantoprazole 40 mg tablet,delayed release RxNorm: 612067 1 Tablet(s) PO daily 08/19/2016 09/01/2016 Inactive doxazosin 4 mg tablet RxNorm: 557696 1 TABLET(S) PO DAILY 201608/06/2017 Inactive levothyroxine 50 mcg tablet RxNorm: 593828 1 TABLET(S) PO DAILY 08/12/2016 05/04/2017 Inactive metoprolol succinate ER 25 mg tablet,extended release 24 hr RxNorm: 358066 1 TABLET(S) PO DAILY 07/08/2016 04/03/2017 Inactive hydrocodone 10 mg-acetaminophen 325 mg tablet RxNorm: 564500 1-2 Tablet(s) PO Q4 PRN as needed for pain 07/02/20162016 Inactive hydrocodone 10 mg-acetaminophen 325 mg tablet RxNorm: 259461 1-2 Tablet(s) PO Q4 PRN as needed for pain 06/05/20162016 Inactive hydrocodone 10 mg-acetaminophen 325 mg tablet RxNorm: 079654 1-2 Tablet(s) PO Q4 PRN as needed for pain 05/06/20162016 Inactive hydrocodone 10 mg-acetaminophen 325 mg tablet RxNorm: 695112 1-2 Tablet(s) PO Q4 PRN as needed for pain 05/06/20162016 Inactive allopurinol 100 mg tablet RxNorm: 837378 3 Tablet(s) PO daily - 2 in the AM and 1 at HS 05/06/2016 04/30/2017 Inactive hydrocodone 10 mg-acetaminophen 325 mg tablet RxNorm: 514474 1-2 Tablet(s) PO Q4 PRN as needed for pain 03/04/20162016 Inactive hydrocodone 10 mg-acetaminophen 325 mg tablet RxNorm: 818971 1-2 Tablet(s) PO Q4 PRN as needed for pain 02/01/20162015 Inactive omeprazole 20 mg capsule,delayed release RxNorm: 892925 1 Capsule(s) PO BID 01/04/2016 07/01/2016 Inactive atorvastatin 40 mg tablet RxNorm: 749205 1 Tablet(s) PO daily 01/04/2016 06/03/2017 Inactive lisinopril 10 mg tablet RxNorm: 237408 1 Tablet(s) PO daily 05/05/2017 Inactive meloxicam 15 mg tablet RxNorm: 814179 TAKE 1 TABLET BY MOUTH EVERY DAY 10/17/2015 07/01/2016 Inactive levothyroxine 50 mcg tablet RxNorm: 678390 1 TABLET(S) PO DAILY 10/17/2015 07/12/2016 Inactive hydrocodone 10 mg-acetaminophen 325 mg tablet RxNorm: 416404 1-2 Tablet(s) PO Q4 PRN as needed for pain 10/10/20152015 Inactive Lipitor 40 mg tablet RxNorm: 677541 1 Tablet(s) PO daily 201501/03/2016 Inactive MS Contin 60 mg tablet,extended release RxNorm: 798413 1 Tablet(s) PO BID 08/30/2015 10/03/2015 Inactive hydrocodone 10 mg-acetaminophen 325 mg tablet RxNorm: 579950 1-2 Tablet(s) PO Q4 PRN as needed for pain 08/30/20152015 Inactive doxazosin 4 mg tablet RxNorm: 536754 1 Tablet(s) PO daily 201507/26/2016 Inactive OxyContin 20 mg tablet,crush resistant,extended release RxNorm: 8617006 1 Tablet(s ) PO BID 08/02/2015 08/29/2015 Inactive meloxicam 15 mg tablet RxNorm: 246005 TAKE 1 TABLET BY MOUTH EVERY DAY 07/25/2015 10/16/2015 Inactive hydrocodone 10 mg-acetaminophen 325 mg tablet RxNorm: 464266 1 Tablet(s) PO Q4 PRN as needed for pain 07/13/20152015 Inactive levothyroxine 50 mcg tablet RxNorm: 833300 1 Tablet(s) PO daily 07/13/2015 10/10/2015 Inactive metoprolol succinate ER 25 mg tablet,extended release 24 hr RxNorm: 985023 1 Tablet(s) PO daily 06/30/2015 06/23/2016 Inactive hydrocodone 10 mg-acetaminophen 325 mg tablet RxNorm: 468336 1 Tablet(s) PO Q4 PRN as needed for pain 04/21/20152015 Inactive hydrocodone 10 mg-acetaminophen 325 mg tablet RxNorm: 168672 1 Tablet(s) PO Q4 PRN as needed for pain 03/30/20152015 Inactive allopurinol 100 mg tablet RxNorm: 888696 3 Tablet(s) PO 2 at am 1 at hs UD 02/08/2015 02/02/2016 Inactive hydrocodone 10 mg-acetaminophen 325 mg tablet RxNorm: 827614 1 Tablet(s) PO Q4 PRN 01/25/2015 03/29/2015 Inactive omeprazole 20 mg capsule,delayed release RxNorm: 031881 1 Capsule(s) PO BID 1at am 1at pm 01/05/2015 12/30/2015 Inactive hydrocodone 10 mg-acetaminophen 325 mg tablet RxNorm: 133128 1 Tablet(s) PO Q4 PRN 01/05/2015 01/24/2015 Inactive Voltaren 1 % topical gel RxNorm: 318531 4 Gram(s) TOP QID 10/0612/04/2014 Inactive Multivitamin & Mineral Formula oral RxNorm: oral No Start Date Active potassium 99 mg tablet RxNorm: 1 Tablet(s) PO daily No Start Date Active amiodarone 200 mg tablet RxNorm: 998000 1 Tablet(s) PO QAM No Start Date Active Eliquis 5 mg tablet RxNorm: 7749193 1/2 Tablet(s) PO BID No Start Date Active B txlgekj-A-adsetxv tablet RxNorm: 1 Tablet(s) PO daily No Start Date Active magnesium oxide 400 mg tablet RxNorm: 958890 1 Tablet(s) PO daily No Start Date Active lisinopril 5 mg tablet RxNorm: 528635 1/2 Tablet(s) PO BID No Start Date Active aspirin 81 mg tablet RxNorm: 263640 1 Tablet(s) PO daily No Start Date Active omega 3 183.3 mg-dha 75 mg-epa 91.6 mg-fish oil 306 mg capsule RxNorm: 1 Capsule(s) PO daily No Start Date Active Calcium + D 600 mg (1,500)-200 unit tablet RxNorm: 869634 1 Tablet(s) PO daily No Start Date Active allopurinol 100 mg tablet RxNorm: 556296 Tablet(s) PO 2 at am 1 at hs No Start Date 02/07/2015 Inactive Zithromax Z-Elmer 250 mg tablet RxNorm: 829977 1 Tablet(s) PO UD No Start Date 05/29/2017 Inactive clopidogrel 75 mg tablet RxNorm: 457617 1 Tablet(s) PO daily No Start Date 02/23/2018 Inactive pantoprazole 40 mg tablet,delayed release RxNorm: 318082 1 Tablet(s) PO daily No Start Date 08/18/2016 Inactive meloxicam 15 mg tablet RxNorm: 200490 1 Tablet(s) PO daily No Start Date 07/24/2015 Inactive doxazosin 4 mg tablet RxNorm: 503888 1 Tablet(s) PO daily No Start Date 08/01/2015 Inactive hydrocodone 7.5 mg-acetaminophen 325 mg tablet RxNorm: 712374 1 Tablet(s) PO QID as needed for pain No Start Date 2014 Inactive Vitamin D3 5,000 unit tablet RxNorm: 768258 1 Tablet(s) PO daily No Start Date 07/01/2016 Inactive B-12 Plus 1,000 mcg/mL injection solution RxNorm: 394077 1 Milliliter(s) Inj daily No Start Date 07/01/2016 Inactive magnesium citrate RxNorm: 6574 miscellaneous No Start Date 07/02/2016 Inactive Lipitor 20 mg tablet RxNorm: 913815 1 Tablet(s) PO daily No Start Date 08/29/2015 Inactive metoprolol succinate ER 25 mg tablet,extended release 24 hr RxNorm: 397241 1 Tablet(s) PO daily No Start Date 2015 Inactive lisinopril 10 mg tablet RxNorm: 291591 1 Tablet(s) PO daily No Start Date 01/03/2016 Inactive levothyroxine 50 mcg tablet RxNorm: 389244 1 Tablet(s) PO daily No Start Date 07/12/2015 Inactive omeprazole 20 mg capsule,delayed release RxNorm: 280936 1 Capsule(s) PO daily No Start Date 01/18/2018 Inactive Ranexa 500 mg tablet,extended release RxNorm: 223171 1 Tablet(s) PO BID No Start Date 02/23/2018 Inactive omeprazole 20 mg capsule,delayed release RxNorm: 931089 Capsule(s) PO daily 1at am 1at pm No Start Date 01/04/2015 Inactive Medication Administered No Medication Administered data Immunizations Vaccine Codes Date Status Influenza CVX: 141 02/12/2018 completed Influenza CVX: 141 02/04/2017 completed Influenza CVX: 141 01/04/2016 completed Pneumococcal (Adult) CVX: 133 01/04/2016 completed Influenza CVX: 141 01/05/2015 completed Influenza CVX: 141 11/12/2013 completed Pneumococcal CVX: 33 11/12/2013 completed Assessments Condition Codes Effective Dates Paroxysmal atrial fibrillation ICD-10: I48.0 ICD-9: 427.31 02/24/2018 Cough ICD-10: R05 ICD-9: 786.2 02/24/2018 Essential (primary) hypertension ICD-10: I10 ICD-9: 401.1 02/24/2018 Encounter for immunization ICD-10: Z23 ICD-9: V04.81 02/12/2018 Pain in right knee ICD-10: M25.561 ICD-9: 719.46 12/04/2017 Pain in left knee ICD-10: M25.562 ICD-9: 719.46 12/04/2017 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 ICD-9: 244.8 12/04/2017 Mixed hyperlipidemia ICD-10: E78.2 ICD-9: 272.2 12/04/2017 Encounter for general adult medical examination [...] Visit Reason For Visit Effective Dates Notes Hospital Follow Up 02/24/2018 vaccination against influenza 02/12/2018 medication follow up [...] Item Item Code Result Date Free T4 [id number] FREE T4 0.87 ng/dL 12/04/2017 Tsh Ord6 TSH (3rd IS) 3.04 uIU/mL 12/04/2017 Lipid Ord30 CHOL 164 mg/dL 03/17/2017 Lipid Ord30 HDL 43.0 mg/dl 03/17/2017 Lipid Ord30 TRIG 144 mg/dL 03/17/2017 Lipid Ord30 LDL 92 mg/dL 03/17/2017 Lipid Ord30 C/HDL 3.8 Ratio 03/17/2017 Hepatic Oqk485 ALBUMIN 4.4 g/dL 03/17/2017 Hepatic Ftk990 TPRO 7.3 g/dL 03/17/2017 Hepatic Ssg093 GLOB 2.9 g/dL 03/17/2017 Hepatic Nxo458 A/G Ratio 1.5 Ratio 03/17/2017 Hepatic Wgu536 ALK PHOS 125 U/L 03/17/2017 Hepatic Zax030 ALT(SGPT) 15 U/L 03/17/2017 Hepatic Pcf989 AST(SGOT) 22 U/L 03/17/2017 Hepatic Sjo181 BILI T 0.7 mg/dL 03/17/2017 Hepatic Psr629 BILI D 0.1 mg/dL 03/17/2017 Hepatic Kfn024 BILI I 0.6 mg/dL 03/17/2017 Tsh Ord6 hTSH II 2.89 uIU/mL 01/13/2017 Comp Metabolic Vcm932 NA 139 mEq/L 01/13/2017 Comp Metabolic Nut266 K 4.4 mEq/L 01/13/2017 Comp Metabolic Imw150 CL 105 mEq/L 01/13/2017 Comp Metabolic Jit334 CO2 29.0 mEq/L 01/13/2017 Comp Metabolic Tic485 ANION GAP 9 01/13/2017 Comp Metabolic Ivf088 GLUCOSE 105 mg/dL 01/13/2017 Comp Metabolic Okw929 Creat 1.1 mg/dL 01/13/2017 Comp Metabolic Nhh840 eGFR 68 ml/min/1.73m2 01/13/2017 Comp Metabolic Fzo042 BUN 12 mg/dL 01/13/2017 Comp Metabolic Dyk778 B/C Ratio 10.7 Ratio 01/13/2017 Comp Metabolic Iho167 CALCIUM 9.2 mg/dL 01/13/2017 Comp Metabolic Eat635 ALK PHOS 90 U/L 01/13/2017 Comp Metabolic Cei648 AST(SGOT) 18 U/L 01/13/2017 Comp Metabolic Ykw993 ALT(SGPT) 12 U/L 01/13/2017 Comp Metabolic Gik437 BILI T 0.5 mg/dL 01/13/2017 Comp Metabolic Qkk545 ALBUMIN 4.1 g/dL 01/13/2017 Comp Metabolic Brw840 TPRO 6.4 g/dL 01/13/2017 Comp Metabolic Znv594 GLOB 2.3 g/dL 01/13/2017 Comp Metabolic Nay165 A/G Ratio 1.8 Ratio 01/13/2017 Comp Metabolic Ubv164 Osmo 278 mOsmo 01/13/2017 Lipid Ord30 CHOL 131 mg/dL 01/13/2017 Lipid Ord30 HDL 35.0 mg/dl 01/13/2017 Lipid Ord30 TRIG 146 mg/dL 01/13/2017 Lipid Ord30 LDL 67 mg/dL 01/13/2017 Lipid Ord30 C/HDL 3.7 Ratio 01/13/2017 Cbc With Differential Ord2 WBC 7.05 K/ul 01/13/2017 Cbc With Differential Ord2 RBC 3.88 M/ul 01/13/2017 Cbc With Differential Ord2 HGB 13.8 g/dl 01/13/2017 Cbc With Differential Ord2 Neut% 67.4 % 01/13/2017 Cbc With Differential Ord2 HCT 40.4 % 01/13/2017 Cbc With Differential Ord2 MCV 104.1 fl 01/13/2017 Cbc With Differential Ord2 Lymph% 18.4 % 01/13/2017 Cbc With Differential Ord2 MCH 35.6 pg 01/13/2017 Cbc With Differential Ord2 [place]% 10.5 % 01/13/2017 Cbc With Differential Ord2 MCHC 34.2 pg 01/13/2017 Cbc With Differential Ord2 Eos% 3.4 % 01/13/2017 Cbc With Differential Ord2 PLT 188 K/ul 01/13/2017 Cbc With Differential Ord2 Baso% 0.3 % 01/13/2017 Cbc With Differential Ord2 Neut ABS# 4.75 K/ul 01/13/2017 Cbc With Differential Ord2 RDW 14.3 % 01/13/2017 Cbc With Differential Ord2 Lymph ABS# 1.30 K/ul 01/13/2017 Cbc With Differential Ord2 [place] ABS# 0.7 K/ul 01/13/2017 Cbc With Differential Ord2 Eos ABS# 0.2 K/ul 01/13/2017 Cbc With Differential Ord2 Baso ABS# 0.0 K/ul 01/13/2017 Total Psa Ord10 PSA 0.02 ng/mL 01/13/2017 Vitamin D 25 Oh [id number] VITAMIN D, 25 HYDROXY 65.24 ng/mL Tsh Ord6 hTSH II 1.32 uIU/mL 10/20/2014 Comp Metabolic Eyd958 NA 138 mEq/L 10/20/2014 Comp Metabolic Omq371 K 4.4 mEq/L 10/20/2014 Comp Metabolic Rpp301 CL 106 mEq/L 10/20/2014 Comp Metabolic Skt254 CO2 28.0 mEq/L 10/20/2014 Comp Metabolic Hba319 ANION GAP 8 10/20/2014 Comp Metabolic Yit525 GLUCOSE 98 mg/dL 10/20/2014 Comp Metabolic Gkm898 Creat 1.0 mg/dL 10/20/2014 Comp Metabolic Doe610 eGFR 74 ml/min/1.73m2 10/20/2014 Comp Metabolic Hjd628 BUN 14 mg/dL 10/20/2014 Comp Metabolic Rzv278 B/C Ratio 13.5 Ratio 10/20/2014 Comp Metabolic Aik279 CALCIUM 9.4 mg/dL 10/20/2014 Comp Metabolic Thg797 ALK PHOS 125 U/L 10/20/2014 Comp Metabolic Qlp807 AST(SGOT) 22 U/L 10/20/2014 Comp Metabolic Bxg386 ALT(SGPT) 20 U/L 10/20/2014 Comp Metabolic Upx885 BILI T 0.5 mg/dL 10/20/2014 Comp Metabolic Oet242 ALBUMIN 4.4 g/dL 10/20/2014 Comp Metabolic Uav161 TPRO 6.7 g/dL 10/20/2014 Comp Metabolic Hqs387 GLOB 2.3 g/dL 10/20/2014 Comp Metabolic Bwp867 A/G Ratio 1.9 Ratio 10/20/2014 Comp Metabolic Lxn272 Osmo 276 mOsmo 10/20/2014 Cbc With Differential [...] of Systems System Result Effective Dates Constitutional recent illness 02/24/2018 Constitutional No anorexia 02/24/2018 Constitutional No night sweats 2017 Constitutional No chills 02/24/2018 Constitutional No diaphoresis 02/24/2018 Constitutional No fatigue 02/24/2018 Constitutional No fever 02/24/2018 Constitutional No insomnia 02/24/2018 Constitutional No malaise 02/24/2018 Constitutional No weight loss 02/24/2018 Constitutional No weight gain 02/24/2018 Eyes No eye erythema 02/24/2018 Eyes No eye discharge 02/24/2018 Ears/Nose/Throat/Neck dizziness 2017 Ears/Nose/Throat/Neck No headache 2017 Cardiovascular No chest pain/pressure Cardiovascular No edema 02/24/2018 Respiratory cough 02/24/2018 Respiratory No productive sputum 2017 Gastrointestinal No abdominal pain 2017 Genitourinary/Nephrology No dysuria 02/24 Musculoskeletal No joint complaint 2017 Dermatologic No rash 02/24/2018 Neurologic No alteration of consciousness 02/24/2018 Psychiatric No anxiety 02/24/2018 Constitutional No recent illness 2017 Constitutional No [...] 1994 Constitutional general appearance Development: well developed 02/24/2018 None Full Exam - General 1994 Constitutional general appearance Development: appears stated age 1102/24/2018 None Full Exam - General 1994 Constitutional general appearance Hygiene/Attention to Grooming: good hygiene 02/24/2018 None Full Exam - General 1994 Eyes conjunctiva /eyelids Overall: conjunctiva clear 02/24/2018 None Full Exam - General 1994 Eyes conjunctiva /eyelids Overall: cornea clear 02/24/2018 None Full Exam - General 1994 Eyes conjunctiva /eyelids Overall: eyelids normal 02/24/2018 None Full Exam - General 1994 Eyes pupils and irises Overall: pupils equal, round, reactive to light and accomodation 02/24/2018 None Full Exam - General 1994 Ears/Nose/Throat otoscopic exam Overall: external auditory canals clear 02/24/2018 None Full Exam - General 1994 Ears/Nose/Throat otoscopic exam Overall: tympanic membranes clear 02/24/2018 None Full Exam - General 1994 Ears/Nose/Throat lips/teeth/gingiva Overall: benign lips 02/24/2018 None Full Exam - General 1994 Ears/Nose/Throat lips/teeth/gingiva Overall: normal dentition 02/24/2018 None Full Exam - General 1994 Ears/Nose/Throat oral cavity/pharynx/larynx Overall: oral mucosa clear 02/24/2018 None Full Exam - General 1994 Ears/Nose/Throat oral cavity/pharynx/larynx Overall: oropharyngeal mucosa clear 02/24/2018 None Full Exam - General 1994 Ears/Nose/Throat oral cavity/pharynx/larynx Overall: hypopharynx benign 02/24/2018 None Full Exam - General 1994 Ears/Nose/Throat oral cavity/pharynx/larynx Overall: no masses 02/24/2018 None Full Exam - General 1994 Respiratory auscultation Overall: breath sounds clear bilaterally 02/24/2018 None Full Exam - General 1994 Respiratory respiratory effort/rhythm Overall: no retractions 02/24/2018 None Full Exam - General 1994 Respiratory respiratory effort/rhythm Overall: normal rate 02/24/2018 None Full Exam - General 1994 Cardiovascular extremities Overall: no clubbing 02/24/2018 None Full Exam - General 1994 Cardiovascular auscultation of heart Overall: regular rate 02/24/2018 None Full Exam - General 1994 Cardiovascular auscultation of heart Overall: normal heart sounds 02/24/2018 None Full Exam - General 1994 Abdomen abdominal exam Overall: no tenderness 02/24/2018 None Full Exam - General 1994 Abdomen abdominal exam Overall: normal bowel sounds 02/24/2018 None Full Exam - General 1994 Lymphatic neck nodes Overall: anterior cervical chain benign 02/24/2018 None Full Exam - General 1994 Lymphatic neck nodes Overall: posterior cervical chain benign 02/24/2018 None Full Exam - General 1994 Musculoskeletal spine, ribs and pelvis Overall: good posture 02/24/2018 None Full Exam - General 1994 Musculoskeletal head and neck Overall: head atraumatic 02/24/2018 None Full Exam - General 1994 Musculoskeletal head and neck Overall: cervical spine benign 02/24/2018 None Full Exam - General 1994 Neurologic deep tendon reflexes Overall: deep tendon reflexes intact 02/24/2018 None Full Exam - General 1994 Neurologic cranial nerves Overall: crainial nerves 2 - 12 grossly intact 02/24/2018 None Full Exam - General 1994 Psychiatric orientation/consciousness Overall: oriented to person, place and time 02/24/2018 None Full Exam - General 1994 Psychiatric mood and affect Overall: normal mood and affect 02/24/2018 None Full Exam - General 1994 Constitutional [...] normal 10/24/2017 None Full Exam - General 1995 Ears/Nose/Throat lips/teeth/gingiva Overall: benign lips 10/24/2017 None [...] FLU VACC PRSV FREE INC ANTIG CPT-4: 70949 02/12/2018 PPPS, SUBSEQ VISIT CPT -4: G0439 10/24/2017 TOBAC[employer] 3-[address]: 249232174 CPT-4: G0436 02/04/2017 ADMIN INFLUENZA VIRUS VAC CPT-4: G0008 02/04/2017 FLU VAC NO PRSV 4 ROSETTE 3 YRS+ CPT-4: 26125 02/04/2017 PPPS, SUBSEQ VISIT CPT -4: G0439 10/18/2016 TOBAC[employer] 3-[address]: 606897982 CPT-4: G0436 10/03/2016 TOBAC[employer] 3-[address]: 717684655 CPT-4: G0436 07/02/2016 TOBAC[employer] 3-[address]: 900763808 CPT-4: G0436 04/04/2016 TOBAC[employer] 3-[address]: 905442489 CPT-4: G0436 01/04/2016 ADMIN INFLUENZA VIRUS VAC CPT-4: G0008 01/04/2016 ADMIN PNEUMOCOCCAL VACCINE SNOMED CT: 08330822 CPT-4: G0009 01/04/2016 PNEUMOCOCCAL VACC [address]: 13977959 CPT-4: 86997 01/04/2016 FLU VACC 4 ROSETTE 3 YRS PLUS IM SNOMED CT: 14130382 CPT-4: 27524 01/04/2016 TOBAC[employer] 3-[address]: 379875556 CPT-4: G0436 10/04/2015 [employer]BAC[employer] 3-[address]: 408456515 CPT-4: G0436 08/30/2015 TOBAC[employer] 3-[address]: 711144219 CPT-4: G0436 08/02/2015 ADMIN INFLUENZA VIRUS VAC CPT-4: G0008 01/05/2015 FLU VACC 4 ROSETTE 3 YRS PLUS IM Formatting Model/CDA Sections, Assigned to SNOMED CT: 88669114 CPT-4: 06788Vsaowzc 01/05/2015 Vital Signs Date Vital 02/24/2018 Blood Pressure 1: 108/62 Code : 8480-6 BMI: 29.0 Code : 43474-6 Heart Rate 1 : 67 bpm Height: 6' SpO2: 98% Weight: 214 lbs 12/04/2017 Blood Pressure 1: 142/70 Code : 8480-6 BMI: 28.2 Code : 40075-3 Heart Rate 1 : 103 bpm Height: 6' SpO2: 94% Weight: 208 lbs 10/24/2017 Height: Weight: 08/28/2017 Blood Pressure 1: 130/72 Code : 8480-6 BMI: 28.3 Code : 59100-5 Heart Rate 1 : 60 bpm Height: 6' SpO2: 96% Weight: 209 lbs 07/31/2017 Blood Pressure 1: 126/64 Code : 8480-6 BMI: 29.7 Code : 26690-7 Heart Rate 1 : 59 bpm Height: 6' SpO2: 95% Weight: 219 lbs 06/04/2017 Blood Pressure 1: 134/86 Code : 8480-6 BMI: 28.6 Code : 55085-4 Heart Rate 1 : 91 bpm Height: 6' SpO2: 97% Weight: 211 lbs 02/04/2017 Blood Pressure 1: 128/74 Code : 8480-6 BMI: 28.3 Code : 18748-9 Heart Rate 1 : 63 bpm Height: 6' SpO2: 96% Weight: 209 lbs 10/18/2016 BMI: 27.7 Code: 11134-0 Height: 6' Weight: 204 lbs 10/03/2016 Blood Pressure 1: 118/70 Code : 8480-6 BMI: 27.7 Code : 06320-9 Heart Rate 1 : 58 bpm Height: 6' SpO2: 95% Weight: 204 lbs 07/02/2016 Blood Pressure 1: 104/64 Code : 8480-6 BMI: 28.5 Code : 83650-0 Heart Rate 1 : 63 bpm Height: 6' SpO2: 98% Weight: 210 lbs 04/04/2016 Blood Pressure 1: 116/62 Code : 8480-6 BMI: 29.9 Code : 88311-1 Heart Rate 1 : 59 bpm Height: 6' SpO2: 98% Weight: 220 lbs 8 oz 01/04/2016 Blood Pressure 1: 136/78 Code : 8480-6 BMI: 29.6 Code : 59451-1 Heart Rate 1 : 55 bpm Height: 6' SpO2: 97% Weight: 218 lbs 10/04/2015 Blood Pressure 1: 130/80 Code : 8480-6 BMI: 29.3 Code : 76427-3 Heart Rate 1 : 69 bpm Height: 6' SpO2: 97% Weight: 216 lbs 08/30/2015 Blood Pressure 1: 112/64 Code : 8480-6 BMI: 30.4 Code : 12328-8 Heart Rate 1 : 68 bpm Height: 6' SpO2: 95% Weight: 224 lbs 8 oz 08/02/2015 Blood Pressure 1: 120/70 Code : 8480-6 BMI: 30.1 Code : 92582-3 Heart Rate 1 : 55 bpm Height: 6' SpO2: 97% Weight: 222 lbs 04/21/2015 Blood Pressure 1: 160/86 Code : 8480-6 Blood Pressure 1: 138/82 Code: 8480-6 BMI: 30.9 Code: 23494-9 Heart Rate 1: 96 bpm Height: 6' SpO2: 96% Weight: 228 lbs 03/21/2015 Blood Pressure 1: 124/82 Code : 8480-6 BMI: 30.0 Code : 86924-0 Heart Rate 1 : 78 bpm Height: 6' SpO2: 98% Weight: 221 lbs 01/05/2015 Blood Pressure 1: 138/78 Code : 8480-6 BMI: 29.3 Code : 13134-4 Heart Rate 1 : 61 bpm Height: 6' SpO2: 98% Weight: 216 lbs 10/06/2014 Blood Pressure 1: 130/78 Code : 8480-6 BMI: 29.3 Code : 63940-9 Heart Rate 1 : 71 bpm Height: 6' SpO2: 97% Weight: 216 lbs Functional Status No Functional Status data History of Present Illness Symptom Name Status Result Effective Date Notes Hospital Follow Up _ Other: atrial flutter 02/24/2018 None Hospital Follow Up Quality acute illness 02/24/2018 None Hospital Follow Up Quality improving 02/24/2018 None cough Quality acute None cough Quality intermittent 02/24/2018 None cough Onset and Resolution sudden in onset 02/24/2018 None cough Onset of Symptom 1 weeks ago 02/24/2018 None cough Frequency of Episodes daily 02/24/2018 None cough Pertinent Findings Denies chills 02/24/2018 None cough Pertinent Findings Denies fever 02/24/2018 None Hospital Follow Up Alleviating Factors medication 02/24/2018 None medication follow up Location oral intake 12/04/2017 [...] back pain, takes hydrocodone prescribed by the [place] [facility] [place] lumbar spine 08/30/2015 None [...] back pain, takes hydrocodone prescribed by [facility] lumbar spine 08/02/2015 None [...] pain, takes hydrocodone initially prescribed by the [facility] lumbar spine 04/21/2015 None [...] data Encounters Encounter Performer Location Codes Date ( [id number] EST. PATIENT, LEVEL IV Diagnosis: Paroxysmal atrial fibrillation[ICD10: I48.0] Diagnosis: Essential (primary) hypertension[ICD10: I10] Diagnosis: Cough[ICD10: R05] Elaine Baeza MD, [facility] CPT-4: 85133 02/24/2018 ([id number]) 26234 EST. PATIENT, LEVEL IV Diagnosis: Essential (primary) hypertension[ICD10: I10] Diagnosis: Atrophy of thyroid (acquired)[ICD10: E03.4] Diagnosis: Pain in left knee[ICD10: M25.562] Diagnosis: Pain in right knee[ICD10: M25.561] Diagnosis: Mixed hyperlipidemia[ICD10: E78.2] Pepper Baeza MD, [facility] CPT-4: 20067 12/04/2017 ([id number]) 39137 EST. PATIENT, LEVEL IV Diagnosis: Essential (primary) hypertension[ICD10: I10] Diagnosis: Pain in left knee[ICD10: M25.562] Diagnosis: Pain in right knee[ICD10: M25.561] Diagnosis: Pain in right hip[ICD10: M25.551] Pepper Baeza MD, [facility] CPT-4: 33301 08/28/2017 ([id number]) 04802 EST. PATIENT, LEVEL IV Diagnosis: Chronic pain syndrome[ICD10: G89.4] Diagnosis: Tobacco use[ICD10: Z72.0] Diagnosis: Localized enlarged lymph nodes[ICD10: R59.0] Pepper Baeza MD, [facility] CPT-4: 84520 07/31/2017 ([id number]) 92666 EST. PATIENT, LEVEL IV Diagnosis: Essential (primary) hypertension[ICD10: I10] Diagnosis: Chronic pain syndrome[ICD10: G89.4] Diagnosis: Atrophy of thyroid (acquired)[ICD10: E03.4] Diagnosis: Tobacco use[ICD10: Z72.0] Pepper Baeza MD, [facility] CPT-4: 17000 06/04/2017 ([id number]) 29337 EST. PATIENT, LEVEL IV Diagnosis: Essential (primary) hypertension[ICD10: I10] Diagnosis: Low back pain[ICD10: M54.5] Diagnosis: Iliotibial band syndrome, right leg[ICD10: M76.31] Diagnosis: Chronic pain syndrome[ICD10: G89.4] Diagnosis: Encounter for immunization[ICD10: Z23] Pepper Baeza MD, [facility] CPT-4: 93615 02/04/2017 ([id number]) 48600 EST. PATIENT, LEVEL IV Diagnosis: Essential (primary) hypertension[ICD10: I10] Diagnosis: Chronic pain syndrome[ICD10: G89.4] Diagnosis: Low back pain[ICD10: M54.5] Diagnosis: Pain in right knee[ICD10: M25.561] Diagnosis: Pain in left knee[ICD10: M25.562] Pepper Baeza MD, [facility] CPT-4: 05297 10/03/2016 ([id number]) 99239 EST. PATIENT, LEVEL IV Diagnosis: Essential (primary) hypertension[ICD10: I10] Diagnosis: Mixed hyperlipidemia[ICD10: E78.2] Diagnosis: Chronic pain syndrome[ICD10: G89.4] Diagnosis: Atrophy of thyroid (acquired)[ICD10: E03.4] Pepper Baeza MD, [facility] CPT-4: 26156 07/02/2016 [id number]) 11893 EST. PATIENT, LEVEL IV Diagnosis: Essential (primary) hypertension[ICD10: I10] Diagnosis: Tobacco use[ICD10: Z72.0] Diagnosis: Chronic pain syndrome[ICD10: G89.4] Pepper Baeza MD, [facility] CPT-4: 39537 04/04/2016 [id number]) 42547 EST. PATIENT, LEVEL IV Diagnosis: Encounter for immunization[ICD10: Z23] Diagnosis: Essential (primary) hypertension[ICD10: I10] Diagnosis: Chronic pain syndrome[ICD10: G89.4] Diagnosis: Tobacco use[ICD10: Z72.0] Diagnosis: Mixed hyperlipidemia[ICD10: E78.2] Diagnosis: Gastro-esophageal reflux disease without esophagitis[ICD10: K21.9] Pepper Baeza MD [facility] CPT-4: 37343 01/04/2016 ([id number]) 70609 EST. PATIENT, LEVEL IV Diagnosis: Essential (primary) hypertension[ICD10: I10] Diagnosis: Chronic pain syndrome[ICD10: G89.4] Diagnosis: Tobacco use[ICD10: Z72.0] Pepper Baeza MD [facility] CPT-4: 90091 10/04/2015 ([id number]) 49033 EST. PATIENT, LEVEL III Diagnosis: Chronic pain syndrome[ICD10: G89.4] Diagnosis: Low back pain[ICD10: M54.5] Diagnosis: Tobacco use[ICD10: Z72.0] Diagnosis: Mixed hyperlipidemia[ICD10: E78.2] Pepper Baeza MD [facility] CPT-4: 95228 08/30/2015 ([id number]) 03917 EST. PATIENT, LEVEL IV Diagnosis: Essential (primary) hypertension[ICD10: I10] Diagnosis: Low back pain[ICD10: M54.5] Diagnosis: Chronic pain syndrome[ICD10: G89.4] Pepper Baeza MD [facility] CPT-4: 11644 08/02/2015 ([id number]) 46180 EST. PATIENT, LEVEL III Diagnosis: Essential (primary) hypertension[ICD10: I10] Diagnosis: Low back pain[ICD10: M54.5] Elaine Baeza MD [facility] CPT-4: 02354 04/21/2015 ([id number]) 95351 EST. PATIENT, LEVEL IV Diagnosis: Epigastric pain[ICD10: R10.13] Diagnosis: Essential (primary) hypertension[ICD10: I10] Diagnosis: Gastro-esophageal reflux disease without esophagitis[ICD10: K21.9] Pepper Baeza MD, [facility] CPT-4: 43292 03/21/2015 ([id number]) 71581 EST. PATIENT, LEVEL III Diagnosis: ESSENTIAL HYPERTENSION[ICD9: 401.9] Diagnosis: SCIATICA[ICD9: 724.3] [facility] CPT-4: 37393 01/05/2015 ([id number]) OFFICE VISIT, NEW - LEVEL 4 Diagnosis: ESSENTIAL HYPERTENSION[ICD9: 401.9] Diagnosis: HYPOTHYROIDISM[ICD9: 244.9] Diagnosis: ESOPHAGEAL REFLUX[ICD9: 530.81] [facility] CPT- 4: 68501 10/06/2014 Plan of Care Planned Activity Notes Codes Status Date Visit Plan: Afib-hospital follow up cardioversion in the hospital -patient is doing well -sees Dr Subramanian this afternoon -will schedule sleep study HTN-slightly low today-no changes-monitor blood pressure at home Cough-monitor symptoms and let us know if cough does not resolve, or if any worse 02/24/2018 Appointment: Elaine Whitehead [facility]el[phone] (15 min) Moderate 02/24/2018 Patient Education: Patient Medication Summary Completed 02/24/2018 Appointment: Injection 02/12/2018 Patient Education: Patient Medication Summary Completed 02/12/2018 [...] of over-medication. 12/04/2017 Appointment: Pepper Baeza WPtel[facility] (15 min) Moderate 12/04/2017 Patient Education: Patient [...] care surrogate. 10/24/2017 Appointment: Parul Collier WPtel[facility] [facility] - Annual Wellness Visit 10/24/2017 Patient Education: Patient Medication Summary Completed 10/24/2017 Appointment: Pepper Baeza WPtel: [facility]5 [facility] (15 min) Moderate 09/09/2017 Visit Plan: [...] anterior hip/thigh 08/28/2017 Appointment: Pepper Baeza WPtel: [address] [place], [place] [id number] (15 min) Moderate 08/28/2017 Patient Education: Patient Medication Summary Completed 08/28/2017 Care Plan: X-RAY EXAM OF HIP LOINC : 55368-9 Pending 08/28/2017 Visit Plan: Hypertension - well [...] #180 pills. 07/31/2017 Appointment: Pepper Baeza WPtel: [facility] (15 min) Moderate 07/31/2017 Patient Education: Patient Medication Summary Completed 07/31/2017 Care Plan: CT THORAX W/O [facility] : 85976-1 Pending 07/31/2017 Visit Plan: Hypertension - well [...] Sagastume tomorrow. 06/04/2017 Appointment: Pepper Baeza WPtel: [address] [place], [place] [id number] (30 min) Complex 06/04/2017 Patient Education: Patient [...] clinic today 02/04/2017 Appointment: [facility]ae[facility]Ptel[facility] [phone] [facility] (30 min) Complex 02/04/2017 Patient Education: Patient [...] care surrogate. 10/18/2016 Appointment: Par[facility] [phone] [facility] [facility] - Annual Wellness Visit 10/18/2016 Patient Education: Patient Medication Summary Completed 10/18/2016 Patient Education: Smoking and Tobacco Addiction Completed 10/18/2016 Visit Plan: Low back pain - and knee pain - [facility], knee pain, back [...] stenting. 10/03/2016 Appointment: Pepper Baeza WPtel: [phone] [facility] (30 min) Complex 10/03/2016 Patient Education: Patient [...] time. 07/02/2016 Appointment: Pepper Baeza WPtel: [phone] [facility] (30 min) Complex 07/02/2016 Patient Education: Patient [...] smoking. 04/04/2016 Appointment: Pepper Baeza [facility]Ptel[facility] [phone] [facility] (30 min) Complex 04/04/2016 Patient Education: Patient [...] not improving. 01/04/2016 Appointment: Pepper Baeza WPtel[facility] [phone] [facility] (15 min) Moderate 01/04/2016 Patient Education: Patient [...] of over-medication. 10/04/2015 Appointment: Pepper Baeza WPtel: [facility] (15 min) Moderate 10/04/2015 Patient Education: Patient [...] stopping smoking. 08/02/2015 Appointment: Pepper Baeza WPtel[facility] [phone] [facility] (15 min) Moderate 08/02/2015 Patient Education: Patient [...] to patient. 10/06/2014 Appointment: Pepper Baeza WPtel: [facility] [place] New Patient 10/06/2014 Patient Education: Patient Medication Summary Completed 10/06/2014 Patient Education: Hypertension Completed 10/06/2014 Instructions Comment get labs one week before your next appt . Low back pain - and knee pain - [facility], knee pain, back [...] to keep appt with Dr. Sagastume tomorrow. SLEEP STUDY . Afib-hospital follow up cardioversion in the hospital -patient is doing well -sees Dr Subramanian this afternoon -will schedule sleep study HTN-slightly low today-no changes-monitor blood pressure at home Cough-monitor symptoms and let us know if cough does not resolve, or if any worse . Hypertension - well controlled - continue [...] improve or if they worsen. [facility] [place]. Recommend referral to Dr Archuleta
--- OUTSIDE RECORDS SUMMARY | 2018-03-16 10:20 | XMS REPORT | CCD ---
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 Name Role Phone PP Unavailable CCM Unavailable Summary Purpose Interface Exchange Insurance Providers Payer name Policy type / Coverage type Covered alliance party ID Effective Begin Date Effective End Date WPS Medicare Part B Medicare Part B [id number] Unknown [facility] Medicare Part B [id number] Unknown Family history Mother Diagnosis Age At Onset Heart Attack Unknown Arthritis Unknown Dementia Unknown Grandfather Diagnosis Age At Onset Leukemia Unknown Father Diagnosis Age At Onset Hypertension Unknown Arthritis Unknown Heart Attack Unknown Social History Social History Element Codes Description Effective Dates Marital status Unknown Zoe 10/04/2015 Number of children Unknown 3 10/06/2014 Employment Unknown Retired 10/06/[address]: 83339513 Current every day smoker 10/06/2014 Number of [...] Start Date Stop Date Status Fill Instructions Ranexa 1,000 mg tablet,extended release RxNorm: 361236 1 Tablet(s) PO BID 02/24/2018 No Stop Date Active levothyroxine 50 mcg tablet RxNorm: 770898 1 TABLET(S) PO DAILY 02/10/2018 11/06/2018 Active hydrocodone 10 mg-acetaminophen 325 mg tablet RxNorm: 899920 1-2 Tablet(s) PO Q4 PRN as needed for pain 02/02/20182017 Active pantoprazole 40 mg tablet,delayed release RxNorm: 219813 1 Tablet(s) PO daily 01/16/2018 01/10/2019 Active metoprolol succinate ER 25 mg tablet,extended release 24 hr RxNorm: 353890 1 TABLET(S) PO DAILY 01/13/2018 10/09/2018 Active hydrocodone 10 mg-acetaminophen 325 mg tablet RxNorm: 867188 1-2 Tablet(s) PO Q4 PRN as needed for pain 12/31/20172017 Inactive hydrocodone 10 mg-acetaminophen 325 mg tablet RxNorm: 649945 1-2 Tablet(s) PO Q4 PRN as needed for pain 11/28/20172017 Inactive hydrocodone 10 mg-acetaminophen 325 mg tablet RxNorm: 792544 1-2 Tablet(s) PO Q4 PRN as needed for pain 10/24/20172017 Inactive hydrocodone 10 mg-acetaminophen 325 mg tablet RxNorm: 787782 1-2 Tablet(s) PO Q4 PRN as needed for pain 09/26/20172017 Inactive doxazosin 4 mg tablet RxNorm: 404283 1 TABLET(S) PO DAILY 201708/19/2018 Active allopurinol 100 mg tablet RxNorm: 474564 3 TABLET(S) PO DAILY - 2 IN THE AM AND 1 AT HS 08/04/2017 04/30/2018 Active hydrocodone 10 mg-acetaminophen 325 mg tablet RxNorm: 477367 1-2 Tablet(s) PO Q4 PRN as needed for pain 07/31/20172017 Inactive Hysingla ER 120 mg tablet, crush resistant, extended release RxNorm: 6759191 1 Tablet(s) PO daily 07/31/20172017 Inactive hydrocodone 10 mg-acetaminophen 325 mg tablet RxNorm: 751710 1-2 Tablet(s) PO Q4 PRN as needed for pain 07/03/20172017 Inactive Lipitor 40 mg tablet RxNorm: 683017 1 Tablet(s) PO daily 201705/29/2018 Active hydrocodone 10 mg-acetaminophen 325 mg tablet RxNorm: 692404 1-2 Tablet(s) PO Q4 PRN as needed for pain 06/04/20172017 Inactive Tessalon 200 mg capsule RxNorm: 135016 1 Capsule(s) PO TID as needed cough 05/30/2017 06/03/2017 Inactive Zithromax Z-Elmer 250 mg tablet RxNorm: 162944 1 Tablet(s) PO UD 05/30/2017 12/08/2017 Inactive Tessalon 200 mg capsule RxNorm: 049963 1 Capsule(s) PO TID as needed cough 05/30/2017 05/29/2017 Inactive levothyroxine 50 mcg tablet RxNorm: 530970 1 TABLET(S) PO DAILY 05/05/2017 01/29/2018 Inactive metoprolol succinate ER 25 mg tablet,extended release 24 hr RxNorm: 444992 1 TABLET(S) PO DAILY 04/08/2017 01/02/2018 Inactive hydrocodone 10 mg-acetaminophen 325 mg tablet RxNorm: 036598 1-2 Tablet(s) PO Q4 PRN as needed for pain 04/04/20172017 Inactive hydrocodone 10 mg-acetaminophen 325 mg tablet RxNorm: 996977 1-2 Tablet(s) PO Q4 PRN as needed for pain 03/03/20172016 Inactive hydrocodone 10 mg-acetaminophen 325 mg tablet RxNorm: 990720 1-2 Tablet(s) PO Q4 PRN as needed for pain 01/30/20172016 Inactive hydrocodone 10 mg-acetaminophen 325 mg tablet RxNorm: 424387 1-2 Tablet(s) PO Q4 PRN as needed for pain 01/01/20172016 Inactive hydrocodone 10 mg-acetaminophen 325 mg tablet RxNorm: 704517 1-2 Tablet(s) PO Q4 PRN as needed for pain 12/02/20162016 Inactive hydrocodone 10 mg-acetaminophen 325 mg tablet RxNorm: 105802 1-2 Tablet(s) PO Q4 PRN as needed for pain 10/31/20162016 Inactive hydrocodone 10 mg-acetaminophen 325 mg tablet RxNorm: 088886 1-2 Tablet(s) PO Q4 PRN as needed for pain 10/03/20162016 Inactive pantoprazole 40 mg tablet,delayed release RxNorm: 407832 1 Tablet(s) PO daily 09/02/2016 12/03/2017 Inactive hydrocodone 10 mg-acetaminophen 325 mg tablet RxNorm: 095033 1-2 Tablet(s) PO Q4 PRN as needed for pain 08/30/20162016 Inactive pantoprazole 40 mg tablet,delayed release RxNorm: 971118 1 Tablet(s) PO daily 08/19/2016 09/01/2016 Inactive doxazosin 4 mg tablet RxNorm: 211695 1 TABLET(S) PO DAILY 201608/06/2017 Inactive levothyroxine 50 mcg tablet RxNorm: 933458 1 TABLET(S) PO DAILY 08/12/2016 05/04/2017 Inactive metoprolol succinate ER 25 mg tablet,extended release 24 hr RxNorm: 438857 1 TABLET(S) PO DAILY 07/08/2016 04/03/2017 Inactive hydrocodone 10 mg-acetaminophen 325 mg tablet RxNorm: 889255 1-2 Tablet(s) PO Q4 PRN as needed for pain 07/02/20162016 Inactive hydrocodone 10 mg-acetaminophen 325 mg tablet RxNorm: 392457 1-2 Tablet(s) PO Q4 PRN as needed for pain 06/05/20162016 Inactive hydrocodone 10 mg-acetaminophen 325 mg tablet RxNorm: 472294 1-2 Tablet(s) PO Q4 PRN as needed for pain 05/06/20162016 Inactive hydrocodone 10 mg-acetaminophen 325 mg tablet RxNorm: 570130 1-2 Tablet(s) PO Q4 PRN as needed for pain 05/06/20162016 Inactive allopurinol 100 mg tablet RxNorm: 162423 3 Tablet(s) PO daily - 2 in the AM and 1 at HS 05/06/2016 04/30/2017 Inactive hydrocodone 10 mg-acetaminophen 325 mg tablet RxNorm: 509084 1-2 Tablet(s) PO Q4 PRN as needed for pain 03/04/20162016 Inactive hydrocodone 10 mg-acetaminophen 325 mg tablet RxNorm: 937036 1-2 Tablet(s) PO Q4 PRN as needed for pain 02/01/20162015 Inactive omeprazole 20 mg capsule,delayed release RxNorm: 441861 1 Capsule(s) PO BID 01/04/2016 07/01/2016 Inactive atorvastatin 40 mg tablet RxNorm: 294966 1 Tablet(s) PO daily 01/04/2016 06/03/2017 Inactive lisinopril 10 mg tablet RxNorm: 881573 1 Tablet(s) PO daily 05/05/2017 Inactive meloxicam 15 mg tablet RxNorm: 016240 TAKE 1 TABLET BY MOUTH EVERY DAY 10/17/2015 07/01/2016 Inactive levothyroxine 50 mcg tablet RxNorm: 277569 1 TABLET(S) PO DAILY 10/17/2015 07/12/2016 Inactive hydrocodone 10 mg-acetaminophen 325 mg tablet RxNorm: 368535 1-2 Tablet(s) PO Q4 PRN as needed for pain 10/10/20152015 Inactive Lipitor 40 mg tablet RxNorm: 892323 1 Tablet(s) PO daily 201501/03/2016 Inactive MS Contin 60 mg tablet,extended release RxNorm: 127697 1 Tablet(s) PO BID 08/30/2015 10/03/2015 Inactive hydrocodone 10 mg-acetaminophen 325 mg tablet RxNorm: 291755 1-2 Tablet(s) PO Q4 PRN as needed for pain 08/30/20152015 Inactive doxazosin 4 mg tablet RxNorm: 956433 1 Tablet(s) PO daily 201507/26/2016 Inactive OxyContin 20 mg tablet,crush resistant,extended release RxNorm: 9695871 1 Tablet(s ) PO BID 08/02/2015 08/29/2015 Inactive meloxicam 15 mg tablet RxNorm: 607402 TAKE 1 TABLET BY MOUTH EVERY DAY 07/25/2015 10/16/2015 Inactive hydrocodone 10 mg-acetaminophen 325 mg tablet RxNorm: 637144 1 Tablet(s) PO Q4 PRN as needed for pain 07/13/20152015 Inactive levothyroxine 50 mcg tablet RxNorm: 342596 1 Tablet(s) PO daily 07/13/2015 10/10/2015 Inactive metoprolol succinate ER 25 mg tablet,extended release 24 hr RxNorm: 179679 1 Tablet(s) PO daily 06/30/2015 06/23/2016 Inactive hydrocodone 10 mg-acetaminophen 325 mg tablet RxNorm: 527665 1 Tablet(s) PO Q4 PRN as needed for pain 04/21/20152015 Inactive hydrocodone 10 mg-acetaminophen 325 mg tablet RxNorm: 768855 1 Tablet(s) PO Q4 PRN as needed for pain 03/30/20152015 Inactive allopurinol 100 mg tablet RxNorm: 685150 3 Tablet(s) PO 2 at am 1 at hs UD 02/08/2015 02/02/2016 Inactive hydrocodone 10 mg-acetaminophen 325 mg tablet RxNorm: 077102 1 Tablet(s) PO Q4 PRN 01/25/2015 03/29/2015 Inactive omeprazole 20 mg capsule,delayed release RxNorm: 689639 1 Capsule(s) PO BID 1at am 1at pm 01/05/2015 12/30/2015 Inactive hydrocodone 10 mg-acetaminophen 325 mg tablet RxNorm: 237140 1 Tablet(s) PO Q4 PRN 01/05/2015 01/24/2015 Inactive Voltaren 1 % topical gel RxNorm: 252278 4 Gram(s) TOP QID 10/0612/04/2014 Inactive Multivitamin & Mineral Formula oral RxNorm: oral No Start Date Active potassium 99 mg tablet RxNorm: 1 Tablet(s) PO daily No Start Date Active amiodarone 200 mg tablet RxNorm: 060072 1 Tablet(s) PO QAM No Start Date Active Eliquis 5 mg tablet RxNorm: 1651048 1/2 Tablet(s) PO BID No Start Date Active B ttzwjzy-L-jqomguy tablet RxNorm: 1 Tablet(s) PO daily No Start Date Active magnesium oxide 400 mg tablet RxNorm: 116034 1 Tablet(s) PO daily No Start Date Active lisinopril 5 mg tablet RxNorm: 754333 1/2 Tablet(s) PO BID No Start Date Active aspirin 81 mg tablet RxNorm: 674347 1 Tablet(s) PO daily No Start Date Active omega 3 183.3 mg-dha 75 mg-epa 91.6 mg-fish oil 306 mg capsule RxNorm: 1 Capsule(s) PO daily No Start Date Active Calcium + D 600 mg (1,500)-200 unit tablet RxNorm: 296677 1 Tablet(s) PO daily No Start Date Active allopurinol 100 mg tablet RxNorm: 491017 Tablet(s) PO 2 at am 1 at hs No Start Date 02/07/2015 Inactive Zithromax Z-Elmer 250 mg tablet RxNorm: 353234 1 Tablet(s) PO UD No Start Date 05/29/2017 Inactive clopidogrel 75 mg tablet RxNorm: 144364 1 Tablet(s) PO daily No Start Date 02/23/2018 Inactive pantoprazole 40 mg tablet,delayed release RxNorm: 906249 1 Tablet(s) PO daily No Start Date 08/18/2016 Inactive meloxicam 15 mg tablet RxNorm: 191507 1 Tablet(s) PO daily No Start Date 07/24/2015 Inactive doxazosin 4 mg tablet RxNorm: 024014 1 Tablet(s) PO daily No Start Date 08/01/2015 Inactive hydrocodone 7.5 mg-acetaminophen 325 mg tablet RxNorm: 092446 1 Tablet(s) PO QID as needed for pain No Start Date 2014 Inactive Vitamin D3 5,000 unit tablet RxNorm: 893169 1 Tablet(s) PO daily No Start Date 07/01/2016 Inactive B-12 Plus 1,000 mcg/mL injection solution RxNorm: 425727 1 Milliliter(s) Inj daily No Start Date 07/01/2016 Inactive magnesium citrate RxNorm: 6574 miscellaneous No Start Date 07/02/2016 Inactive Lipitor 20 mg tablet RxNorm: 676075 1 Tablet(s) PO daily No Start Date 08/29/2015 Inactive metoprolol succinate ER 25 mg tablet,extended release 24 hr RxNorm: 838282 1 Tablet(s) PO daily No Start Date 2015 Inactive lisinopril 10 mg tablet RxNorm: 225184 1 Tablet(s) PO daily No Start Date 01/03/2016 Inactive levothyroxine 50 mcg tablet RxNorm: 851968 1 Tablet(s) PO daily No Start Date 07/12/2015 Inactive omeprazole 20 mg capsule,delayed release RxNorm: 593573 1 Capsule(s) PO daily No Start Date 01/18/2018 Inactive Ranexa 500 mg tablet,extended release RxNorm: 409343 1 Tablet(s) PO BID No Start Date 02/23/2018 Inactive omeprazole 20 mg capsule,delayed release RxNorm: 233444 Capsule(s) PO daily 1at am 1at pm [...] Item Item Code Result Date Free T4 [id number] FREE T4 0.87 ng/dL 12/04/2017 Tsh Ord6 TSH (3rd IS) 3.04 uIU/mL 12/04/2017 Lipid Ord30 CHOL 164 mg/dL 03/17/2017 Lipid Ord30 HDL 43.0 mg/dl 03/17/2017 Lipid Ord30 TRIG 144 mg/dL 03/17/2017 Lipid Ord30 LDL 92 mg/dL 03/17/2017 Lipid Ord30 C/HDL 3.8 Ratio 03/17/2017 Hepatic Jhh244 ALBUMIN 4.4 g/dL 03/17/2017 Hepatic Rma042 TPRO 7.3 g/dL 03/17/2017 Hepatic Nyr484 GLOB 2.9 g/dL 03/17/2017 Hepatic Aai264 A/G Ratio 1.5 Ratio 03/17/2017 Hepatic Trs324 ALK PHOS 125 U/L 03/17/2017 Hepatic Dlh804 ALT(SGPT) 15 U/L 03/17/2017 Hepatic Upl776 AST(SGOT) 22 U/L 03/17/2017 Hepatic Orf700 BILI T 0.7 mg/dL 03/17/2017 Hepatic Yol971 BILI D 0.1 mg/dL 03/17/2017 Hepatic Kyt435 BILI I 0.6 mg/dL 03/17/2017 Tsh Ord6 hTSH II 2.89 uIU/mL 01/13/2017 Comp Metabolic Eke893 NA 139 mEq/L 01/13/2017 Comp Metabolic Fvi628 K 4.4 mEq/L 01/13/2017 Comp Metabolic Dkp613 CL 105 mEq/L 01/13/2017 Comp Metabolic Zyw620 CO2 29.0 mEq/L 01/13/2017 Comp Metabolic Tnh011 ANION GAP 9 01/13/2017 Comp Metabolic Njn802 GLUCOSE 105 mg/dL 01/13/2017 Comp Metabolic Pet340 Creat 1.1 mg/dL 01/13/2017 Comp Metabolic Kmr795 eGFR 68 ml/min/1.73m2 01/13/2017 Comp Metabolic Fzk626 BUN 12 mg/dL 01/13/2017 Comp Metabolic Zdj670 B/C Ratio 10.7 Ratio 01/13/2017 Comp Metabolic Xuv333 CALCIUM 9.2 mg/dL 01/13/2017 Comp Metabolic Nqn277 ALK PHOS 90 U/L 01/13/2017 Comp Metabolic Zgj811 AST(SGOT) 18 U/L 01/13/2017 Comp Metabolic Rje517 ALT(SGPT) 12 U/L 01/13/2017 Comp Metabolic Dmv020 BILI T 0.5 mg/dL 01/13/2017 Comp Metabolic Gre047 ALBUMIN 4.1 g/dL 01/13/2017 Comp Metabolic Jdo967 TPRO 6.4 g/dL 01/13/2017 Comp Metabolic Fri989 GLOB 2.3 g/dL 01/13/2017 Comp Metabolic Ank416 A/G Ratio 1.8 Ratio 01/13/2017 Comp Metabolic Sme959 Osmo 278 mOsmo 01/13/2017 Lipid Ord30 CHOL [...] 35.6 pg 01/13/2017 Cbc With Differential Ord2 [place]% 10.5 % 01/13/2017 Cbc With Differential Ord2 [...] 1.30 K/ul 01/13/2017 Cbc With Differential Ord2 [place] ABS# 0.7 K/ul 01/13/2017 Cbc With Differential Ord2 Eos ABS# 0.2 K/ul 01/13/2017 Cbc With Differential Ord2 Baso ABS# 0.0 K/ul 01/13/2017 Total Psa Ord10 PSA 0.02 ng/mL 01/13/2017 Vitamin D 25 Oh Baf0609 VITAMIN D, 25 HYDROXY 65.24 ng/mL Tsh Ord6 hTSH II 1.32 uIU/mL 10/20/2014 Comp Metabolic Ren398 NA 138 mEq/L 10/20/2014 Comp Metabolic Wzg881 K 4.4 mEq/L 10/20/2014 Comp Metabolic Qaf120 CL 106 mEq/L 10/20/2014 Comp Metabolic Hzr020 CO2 28.0 mEq/L 10/20/2014 Comp Metabolic Uld724 ANION GAP 8 10/20/2014 Comp Metabolic Xsx611 GLUCOSE 98 mg/dL 10/20/2014 Comp Metabolic Sxx805 Creat 1.0 mg/dL 10/20/2014 Comp Metabolic Fer715 eGFR 74 ml/min/1.73m2 10/20/2014 Comp Metabolic Iov616 BUN 14 mg/dL 10/20/2014 Comp Metabolic Ixm584 B/C Ratio 13.5 Ratio 10/20/2014 Comp Metabolic Kay923 CALCIUM 9.4 mg/dL 10/20/2014 Comp Metabolic Mjp743 ALK PHOS 125 U/L 10/20/2014 Comp Metabolic Qmy784 AST(SGOT) 22 U/L 10/20/2014 Comp Metabolic Iyq783 ALT(SGPT) 20 U/L 10/20/2014 Comp Metabolic Jek191 BILI T 0.5 mg/dL 10/20/2014 Comp Metabolic Sku652 ALBUMIN 4.4 g/dL 10/20/2014 Comp Metabolic Byf328 TPRO 6.7 g/dL 10/20/2014 Comp Metabolic Mvm345 GLOB 2.3 g/dL 10/20/2014 Comp Metabolic Jon934 A/G Ratio 1.9 Ratio 10/20/2014 Comp Metabolic Cir109 Osmo 276 mOsmo 10/20/2014 Cbc With Differential [...] FLU VACC PRSV FREE INC ANTIG CPT-4: 69977 02/12/2018 PPPS, SUBSEQ VISIT CPT -4: G0439 10/24/2017 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 3-[address]: 793312104 CPT-4: G0436 02/04/2017 ADMIN INFLUENZA VIRUS VAC CPT-4: G0008 02/04/2017 FLU VAC NO PRSV 4 ROSETTE 3 YRS+ CPT-4: 70471 02/04/2017 PPPS, SUBSEQ VISIT CPT -4: G0439 10/18/2016 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 3-[address]: 523903380 CPT-4: G0436 10/03/2016 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 3-[address]: 168043167 CPT-4: G0436 07/02/2016 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 3-[address]: 875256358 CPT-4: G0436 04/04/2016 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 3-[address]: 358086692 CPT-4: G0436 01/04/2016 ADMIN INFLUENZA VIRUS VAC CPT-4: G0008 01/04/2016 ADMIN PNEUMOCOCCAL VACCINE SNOMED CT: 53193115 CPT-4: G0009 01/04/2016 PNEUMOCOCCAL VACC [address]: 44085017 CPT-4: 37427 01/04/2016 FLU VACC 4 ROSETTE 3 YRS PLUS IM SNOMED CT: 95610120 CPT-4: 02336 01/04/2016 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 3-[address]: 903296190 CPT-4: G0436 10/04/2015 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 3-[address]: 213653103 CPT-4: G0436 08/30/2015 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 3-[address]: 564442266 CPT-4: G0436 08/02/2015 ADMIN INFLUENZA VIRUS VAC CPT-4: G0008 01/05/2015 FLU VACC 4 ROSETTE 3 YRS PLUS IM Formatting Model/CDA Sections, Assigned to SNOMED CT: 42717607 CPT-4: 42821Yrfktnx 01/05/2015 Vital Signs Date Vital 02/24/2018 Blood Pressure 1: 108/62 Code : 8480-6 BMI: 29.0 Code : 50021-6 Heart Rate 1 : 67 bpm Height: 6' SpO2: 98% Weight: 214 lbs 12/04/2017 Blood Pressure 1: 142/70 Code : 8480-6 BMI: 28.2 Code : 42707-9 Heart Rate 1 : 103 bpm Height: 6' SpO2: 94% Weight: 208 lbs 10/24/2017 Height: Weight: 08/28/2017 Blood Pressure 1: 130/72 Code : 8480-6 BMI: 28.3 Code : 89532-5 Heart Rate 1 : 60 bpm Height: 6' SpO2: 96% Weight: 209 lbs 07/31/2017 Blood Pressure 1: 126/64 Code : 8480-6 BMI: 29.7 Code : 14286-8 Heart Rate 1 : 59 bpm Height: 6' SpO2: 95% Weight: 219 lbs 06/04/2017 Blood Pressure 1: 134/86 Code : 8480-6 BMI: 28.6 Code : 64842-7 Heart Rate 1 : 91 bpm Height: 6' SpO2: 97% Weight: 211 lbs 02/04/2017 Blood Pressure 1: 128/74 Code : 8480-6 BMI: 28.3 Code : 71508-8 Heart Rate 1 : 63 bpm Height: 6' SpO2: 96% Weight: 209 lbs 10/18/2016 BMI: 27.7 Code: 21478-9 Height: 6' Weight: 204 lbs 10/03/2016 Blood Pressure 1: 118/70 Code : 8480-6 BMI: 27.7 Code : 58334-7 Heart Rate 1 : 58 bpm Height: 6' SpO2: 95% Weight: 204 lbs 07/02/2016 Blood Pressure 1: 104/64 Code : 8480-6 BMI: 28.5 Code : 65683-5 Heart Rate 1 : 63 bpm Height: 6' SpO2: 98% Weight: 210 lbs 04/04/2016 Blood Pressure 1: 116/62 Code : 8480-6 BMI: 29.9 Code : 06829-6 Heart Rate 1 : 59 bpm Height: 6' SpO2: 98% Weight: 220 lbs 8 oz 01/04/2016 Blood Pressure 1: 136/78 Code : 8480-6 BMI: 29.6 Code : 11968-2 Heart Rate 1 : 55 bpm Height: 6' SpO2: 97% Weight: 218 lbs 10/04/2015 Blood Pressure 1: 130/80 Code : 8480-6 BMI: 29.3 Code : 38632-6 Heart Rate 1 : 69 bpm Height: 6' SpO2: 97% Weight: 216 lbs 08/30/2015 Blood Pressure 1: 112/64 Code : 8480-6 BMI: 30.4 Code : 80223-5 Heart Rate 1 : 68 bpm Height: 6' SpO2: 95% Weight: 224 lbs 8 oz 08/02/2015 Blood Pressure 1: 120/70 Code : 8480-6 BMI: 30.1 Code : 18098-5 Heart Rate 1 : 55 bpm Height: 6' SpO2: 97% Weight: 222 lbs 04/21/2015 Blood Pressure 1: 160/86 Code : 8480-6 Blood Pressure 1: 138/82 Code: 8480-6 BMI: 30.9 Code: 50893-8 Heart Rate 1: 96 bpm Height: 6' SpO2: 96% Weight: 228 lbs 03/21/2015 Blood Pressure 1: 124/82 Code : 8480-6 BMI: 30.0 Code : 64253-1 Heart Rate 1 : 78 bpm Height: 6' SpO2: 98% Weight: 221 lbs 01/05/2015 Blood Pressure 1: 138/78 Code : 8480-6 BMI: 29.3 Code : 10058-5 Heart Rate 1 : 61 bpm Height: 6' SpO2: 98% Weight: 216 lbs 10/06/2014 Blood Pressure 1: 130/78 Code : 8480-6 BMI: 29.3 Code : 78077-4 Heart Rate 1 : 71 bpm Height: [...] back pain, takes hydrocodone prescribed by the [place] back pain Location lumbar spine 08/30/2015 None [...] back pain, takes hydrocodone prescribed by the [place] back pain Location lumbar spine 08/02/2015 None [...] pain, takes hydrocodone initially prescribed by the [place] back pain Location lumbar spine 04/21/2015 None [...] data Encounters Encounter Performer Location Codes Date (214 EST. PATIENT, LEVEL IV Diagnosis: Paroxysmal atrial fibrillation[ICD10: I48.0] Diagnosis: Essential (primary) hypertension[ICD10: I10] Diagnosis: Cough[ICD10: R05] Elaine Baeza MD, [facility] CPT-4: 60825 02/24/2018 ([id number]) 09388 EST. PATIENT, LEVEL IV Diagnosis: Essential (primary) hypertension[ICD10: I10] Diagnosis: Atrophy of thyroid (acquired)[ICD10: E03.4] Diagnosis: Pain in left knee[ICD10: M25.562] Diagnosis: Pain in right knee[ICD10: M25.561] Diagnosis: Mixed hyperlipidemia[ICD10: E78.2] Pepper Baeza MD, [facility] CPT-4: 21456 12/04/2017 ([id number]) 98837 EST. PATIENT, LEVEL IV Diagnosis: Essential (primary) hypertension[ICD10: I10] Diagnosis: Pain in left knee[ICD10: M25.562] Diagnosis: Pain in right knee[ICD10: M25.561] Diagnosis: Pain in right hip[ICD10: M25.551] Pepper Baeza MD, [facility] CPT-4: 47478 08/28/2017 [id number]) 55532 EST. PATIENT, LEVEL IV Diagnosis: Chronic pain syndrome[ICD10: G89.4] Diagnosis: Tobacco use[ICD10: Z72.0] Diagnosis: Localized enlarged lymph nodes[ICD10: R59.0] Pepper Baeza MD, [facility] CPT-4: 44405 07/31/2017 ([id number]) 13427 EST. PATIENT, LEVEL IV Diagnosis: Essential (primary) hypertension[ICD10: I10] Diagnosis: Chronic pain syndrome[ICD10: G89.4] Diagnosis: Atrophy of thyroid (acquired)[ICD10: E03.4] Diagnosis: Tobacco use[ICD10: Z72.0] Pepper Baeza MD, [facility] CPT-4: 87129 06/04/2017 ([id number]) 52322 EST. PATIENT, LEVEL IV Diagnosis: Essential (primary) hypertension[ICD10: I10] Diagnosis: Low back pain[ICD10: M54.5] Diagnosis: Iliotibial band syndrome, right leg[ICD10: M76.31] Diagnosis: Chronic pain syndrome[ICD10: G89.4] Diagnosis: Encounter for immunization[ICD10: Z23] Pepper Baeza MD, [facility] CPT-4: 42079 02/04/2017 ([id number]) 99402 EST. PATIENT, LEVEL IV Diagnosis: Essential (primary) hypertension[ICD10: I10] Diagnosis: Chronic pain syndrome[ICD10: G89.4] Diagnosis: Low back pain[ICD10: M54.5] Diagnosis: Pain in right knee[ICD10: M25.561] Diagnosis: Pain in left knee[ICD10: M25.562] Pepper Baeza MD, [facility] CPT-4: 00512 10/03/2016 ([id number]) 17534 EST. PATIENT, LEVEL IV Diagnosis: Essential (primary) hypertension[ICD10: I10] Diagnosis: Mixed hyperlipidemia[ICD10: E78.2] Diagnosis: Chronic pain syndrome[ICD10: G89.4] Diagnosis: Atrophy of thyroid (acquired)[ICD10: E03.4] Pepper Baeza MD, [facility] CPT-4: 05826 07/02/2016 ([id number]) 20593 EST. PATIENT, LEVEL IV Diagnosis: Essential (primary) hypertension[ICD10: I10] Diagnosis: Tobacco use[ICD10: Z72.0] Diagnosis: Chronic pain syndrome[ICD10: G89.4] Pepper Baeza MD, [facility] CPT-4: 80792 04/04/2016 [id number]) 29129 EST. PATIENT, LEVEL IV Diagnosis: Encounter for immunization[ICD10: Z23] Diagnosis: Essential (primary) hypertension[ICD10: I10] Diagnosis: Chronic pain syndrome[ICD10: G89.4] Diagnosis: Tobacco use[ICD10: Z72.0] Diagnosis: Mixed hyperlipidemia[ICD10: E78.2] Diagnosis: Gastro-esophageal reflux disease without esophagitis[ICD10: K21.9] Pepper Baeza MD, [facility] CPT-4: 10242 01/04/2016 ([id number]) 04364 EST. PATIENT, LEVEL IV Diagnosis: Essential (primary) hypertension[ICD10: I10] Diagnosis: Chronic pain syndrome[ICD10: G89.4] Diagnosis: Tobacco use[ICD10: Z72.0] Pepper Baeza MD, [facility] CPT-4: 53386 10/04/2015 ([id number]) 80820 EST. PATIENT, LEVEL III Diagnosis: Chronic pain syndrome[ICD10: G89.4] Diagnosis: Low back pain[ICD10: M54.5] Diagnosis: Tobacco use[ICD10: Z72.0] Diagnosis: Mixed hyperlipidemia[ICD10: E78.2] Pepper Baeza MD, [facility] CPT-4: 31710 08/30/2015 ([id number]) 97189 EST. PATIENT, LEVEL IV Diagnosis: Essential (primary) hypertension[ICD10: I10] Diagnosis: Low back pain[ICD10: M54.5] Diagnosis: Chronic pain syndrome[ICD10: G89.4] Pepper Baeza MD, [facility] CPT-4: 59633 08/02/2015 ([id number]) 28390 EST. PATIENT, LEVEL III Diagnosis: Essential (primary) hypertension[ICD10: I10] Diagnosis: Low back pain[ICD10: M54.5] Elaine Baeza MD, [facility] CPT-4: 15835 04/21/2015 ([id number]) 08453 EST. PATIENT, LEVEL IV Diagnosis: Epigastric pain[ICD10: R10.13] Diagnosis: Essential (primary) hypertension[ICD10: I10] Diagnosis: Gastro-esophageal reflux disease without esophagitis[ICD10: K21.9] Pepper Baeza MD, [facility] CPT-4: 34249 03/21/2015 ([id number]) 99376 EST. PATIENT, LEVEL III Diagnosis: ESSENTIAL HYPERTENSION[ICD9: 401.9] Diagnosis: SCIATICA[ICD9: 724.3] Pepper Baeza MD, [facility] CPT-4: 20568 01/05/2015 ([id number]) OFFICE VISIT, NEW - LEVEL 4 Diagnosis: ESSENTIAL HYPERTENSION[ICD9: 401.9] Diagnosis: HYPOTHYROIDISM[ICD9: 244.9] Diagnosis: ESOPHAGEAL REFLUX[ICD9: 530.81] Pepper Baeza MD, [facility] CPT- 4: 37930 10/06/2014 Plan of Care Planned Activity Notes Codes Status Date Appointment: [id number] [place] (15 min) Moderate 02/24/2018 Patient Education: Patient Medication Summary Completed 02/24/2018 Appointment: Injection 02/12/2018 Patient Education: Patient Medication Summary Completed 02/12/2018 Appointment: Pepper Baeza WPtel: [phone] [facility] [place] (15 min) Moderate 12/04/2017 Patient Education: Patient Medication Summary Completed 12/04/2017 Appointment: Parul Collier [phone] [id number] [place] MCR - Annual Wellness Visit 10/24/2017 Patient Education: Patient Medication Summary Completed 10/24/2017 App[facility]ment: [phone] [place] ([facility] min) Moderate 09/09/2017 Appointment: [id number] [place] (15 min) Moderate 08/28/2017 Patient Education: Patient Medication Summary Completed 08/28/2017 Care Plan: X-RAY EXAM OF HIP LOINC : 28341-7 Pending 08/28/2017 Appointment: [facility] B[id number] [place] (15 min) Moderate 07/31/2017 Patient Education: Patient Medication Summary Completed 07/31/2017 Care Plan: CT THORAX W/O DYE LOINC : 22533-5 Pending 07/31/2017 Appointment: [facility] Bae[id number] [place] (30 min) Complex 06/04/2017 Patient Education: Patient Medication Summary Completed 06/04/2017 Appointment: [facility] Bae[id number] ([facility] min) Complex 02/04/2017 Patient Education: Patient Medication Summary Completed 02/04/2017 Patient Education: Smoking and Tobacco Addiction Completed 02/04/2017 Appointment: [id number] [place] - Annual Wellness Visit 10/18/2016 Patient Education: Patient Medication Summary Completed 10/18/2016 Patient Education: Smoking and Tobacco Addiction Completed 10/18/2016 Appointment: Pepper Bae[id number] ([facility] min) Complex 10/03/2016 Patient Education: Patient Medication Summary Completed 10/03/2016 Patient Education: Smoking and Tobacco Addiction Completed 10/03/2016 Appointment: Pepper Baeza WPtel: [facility] (30 min) Complex 07/02/2016 Patient Education: Patient Medication Summary Completed 07/02/2016 Patient Education: Smoking and Tobacco Addiction Completed 07/02/2016 Appointment: [facility] Bae[id number] ([facility] min) Complex 04/04/2016 Patient Education: Patient Medication Summary Completed 04/04/2016 Patient Education: Smoking and Tobacco Addiction Completed 04/04/2016 Appointment: Pepper Baeza WPtel[id number] ([facility] min) Moderate 01/04/2016 Patient Education: Patient Medication Summary Completed 01/04/2016 Patient Education: Smoking and Tobacco Addiction Completed 01/04/2016 Patient Education: Hypertension Completed 01/04/2016 Appointment: Pepper Baeza WPtel[id number] ([facility] min) Moderate 10/04/2015 Patient Education: Patient Medication Summary Completed 10/04/2015 Patient Education: Smoking and Tobacco Addiction Completed 10/04/2015 Patient Education: Hypertension Completed 10/04/2015 Patient Education: Patient Medication Summary Completed 08/30/2015 Patient Education: Smoking and Tobacco Addiction Completed 08/30/2015 Patient Education: Obesity Completed 08/30/2015 Appointment: [facility] Bae[phone] [id number] [place] (15 min) Moderate 08/02/2015 Patient Education: Patient Medication Summary Completed 08/02/2015 Patient Education: Smoking and Tobacco Addiction Completed 08/02/2015 Patient Education: Obesity Completed 08/02/2015 Appointment: (30 min) Complex 06/26/2015 Appointment: (15 min) Moderate 04/21/2015 Patient Education: Patient Medication Summary Completed 04/21/2015 Patient Education: Hypertension Completed 04/21/2015 Patient Education: Patient Medication Summary Completed 03/21/2015 Patient Education: Hypertension Completed 03/21/2015 Appointment: (30 min) Complex 01/05/2015 Patient Education: Patient Medication Summary Completed 01/05/2015 Patient Education: Hypertension Completed 01/05/2015 Appointment: Pepper Baeza [id number] [place] ([place] New Patient 10/06/2014 Patient Education: Patient Medication Summary Completed 10/06/2014 Patient Education: Hypertension Completed 10/06/2014 Instructions No Instructions
--- OUTSIDE RECORDS SUMMARY | 2018-03-16 10:23 | XMS REPORT | CCD ---
Author Author [facility] Organization [facility] Address [address] [place] [address] Phone Care Team Providers Care Residential Caregiver Name Role Phone PP Unavailable CCM Unavailable Summary Purpose Interface Exchange Insurance Providers Payer name Policy type / Coverage type Covered constitution party ID Effective Begin Date Effective End Date WPS Medicare Part B Medicare Part B [id number] Unknown [facility] Medicare Part B [id number] Unknown Family history Mother Diagnosis Age At Onset Heart Attack Unknown Arthritis Unknown Dementia Unknown Grandfather Diagnosis Age At Onset Leukemia Unknown Father Diagnosis Age At Onset Hypertension Unknown Arthritis Unknown Heart Attack Unknown Social History Social History Element Codes Description Effective Dates Marital status Unknown Zoe 10/04/2015 Number of children Unknown 3 10/06/2014 Employment Unknown Retired 10/06/[address]: 16513773 Current every day smoker 10/06/2014 Number of [...] Instructions Ranexa 1,000 mg tablet,extended release RxNorm: 592106 1 Tablet(s) PO BID 02/24/2018 No Stop Date Active levothyroxine 50 mcg tablet RxNorm: 217009 1 TABLET(S) PO DAILY 02/10/2018 11/06/2018 Active hydrocodone 10 mg-acetaminophen 325 mg tablet RxNorm: 986315 1-2 Tablet(s) PO Q4 PRN as needed for pain 02/02/20182017 Active pantoprazole 40 mg tablet,delayed release RxNorm: 339773 1 Tablet(s) PO daily 01/16/2018 01/10/2019 Active metoprolol succinate ER 25 mg tablet,extended release 24 hr RxNorm: 120653 1 TABLET(S) PO DAILY 01/13/2018 10/09/2018 Active hydrocodone 10 mg-acetaminophen 325 mg tablet RxNorm: 400275 1-2 Tablet(s) PO Q4 PRN as needed for pain 12/31/20172017 Inactive hydrocodone 10 mg-acetaminophen 325 mg tablet RxNorm: 889344 1-2 Tablet(s) PO Q4 PRN as needed for pain 11/28/20172017 Inactive hydrocodone 10 mg-acetaminophen 325 mg tablet RxNorm: 349244 1-2 Tablet(s) PO Q4 PRN as needed for pain 10/24/20172017 Inactive hydrocodone 10 mg-acetaminophen 325 mg tablet RxNorm: 897869 1-2 Tablet(s) PO Q4 PRN as needed for pain 09/26/20172017 Inactive doxazosin 4 mg tablet RxNorm: 245318 1 TABLET(S) PO DAILY 201708/19/2018 Active allopurinol 100 mg tablet RxNorm: 088918 3 TABLET(S) PO DAILY - 2 IN THE AM AND 1 AT HS 08/04/2017 04/30/2018 Active hydrocodone 10 mg-acetaminophen 325 mg tablet RxNorm: 232296 1-2 Tablet(s) PO Q4 PRN as needed for pain 07/31/20172017 Inactive Hysingla ER 120 mg tablet, crush resistant, extended release RxNorm: 8527829 1 Tablet(s) PO daily 07/31/20172017 Inactive hydrocodone 10 mg-acetaminophen 325 mg tablet RxNorm: 997391 1-2 Tablet(s) PO Q4 PRN as needed for pain 07/03/20172017 Inactive Lipitor 40 mg tablet RxNorm: 511132 1 Tablet(s) PO daily 201705/29/2018 Active hydrocodone 10 mg-acetaminophen 325 mg tablet RxNorm: 357197 1-2 Tablet(s) PO Q4 PRN as needed for pain 06/04/20172017 Inactive Tessalon 200 mg capsule RxNorm: 723810 1 Capsule(s) PO TID as needed cough 05/30/2017 06/03/2017 Inactive Zithromax Z-Elmer 250 mg tablet RxNorm: 451194 1 Tablet(s) PO UD 05/30/2017 12/08/2017 Inactive Tessalon 200 mg capsule RxNorm: 165707 1 Capsule(s) PO TID as needed cough 05/30/2017 05/29/2017 Inactive levothyroxine 50 mcg tablet RxNorm: 334696 1 TABLET(S) PO DAILY 05/05/2017 01/29/2018 Inactive metoprolol succinate ER 25 mg tablet,extended release 24 hr RxNorm: 485671 1 TABLET(S) PO DAILY 04/08/2017 01/02/2018 Inactive hydrocodone 10 mg-acetaminophen 325 mg tablet RxNorm: 582374 1-2 Tablet(s) PO Q4 PRN as needed for pain 04/04/20172017 Inactive hydrocodone 10 mg-acetaminophen 325 mg tablet RxNorm: 794683 1-2 Tablet(s) PO Q4 PRN as needed for pain 03/03/20172016 Inactive hydrocodone 10 mg-acetaminophen 325 mg tablet RxNorm: 884203 1-2 Tablet(s) PO Q4 PRN as needed for pain 01/30/20172016 Inactive hydrocodone 10 mg-acetaminophen 325 mg tablet RxNorm: 027548 1-2 Tablet(s) PO Q4 PRN as needed for pain 01/01/20172016 Inactive hydrocodone 10 mg-acetaminophen 325 mg tablet RxNorm: 389867 1-2 Tablet(s) PO Q4 PRN as needed for pain 12/02/20162016 Inactive hydrocodone 10 mg-acetaminophen 325 mg tablet RxNorm: 651609 1-2 Tablet(s) PO Q4 PRN as needed for pain 10/31/20162016 Inactive hydrocodone 10 mg-acetaminophen 325 mg tablet RxNorm: 650304 1-2 Tablet(s) PO Q4 PRN as needed for pain 10/03/20162016 Inactive pantoprazole 40 mg tablet,delayed release RxNorm: 541269 1 Tablet(s) PO daily 09/02/2016 12/03/2017 Inactive hydrocodone 10 mg-acetaminophen 325 mg tablet RxNorm: 547560 1-2 Tablet(s) PO Q4 PRN as needed for pain 08/30/20162016 Inactive pantoprazole 40 mg tablet,delayed release RxNorm: 937243 1 Tablet(s) PO daily 08/19/2016 09/01/2016 Inactive doxazosin 4 mg tablet RxNorm: 167922 1 TABLET(S) PO DAILY 201608/06/2017 Inactive levothyroxine 50 mcg tablet RxNorm: 608264 1 TABLET(S) PO DAILY 08/12/2016 05/04/2017 Inactive metoprolol succinate ER 25 mg tablet,extended release 24 hr RxNorm: 646584 1 TABLET(S) PO DAILY 07/08/2016 04/03/2017 Inactive hydrocodone 10 mg-acetaminophen 325 mg tablet RxNorm: 254625 1-2 Tablet(s) PO Q4 PRN as needed for pain 07/02/20162016 Inactive hydrocodone 10 mg-acetaminophen 325 mg tablet RxNorm: 373789 1-2 Tablet(s) PO Q4 PRN as needed for pain 06/05/20162016 Inactive hydrocodone 10 mg-acetaminophen 325 mg tablet RxNorm: 378344 1-2 Tablet(s) PO Q4 PRN as needed for pain 05/06/20162016 Inactive hydrocodone 10 mg-acetaminophen 325 mg tablet RxNorm: 277244 1-2 Tablet(s) PO Q4 PRN as needed for pain 05/06/20162016 Inactive allopurinol 100 mg tablet RxNorm: 332389 3 Tablet(s) PO daily - 2 in the AM and 1 at HS 05/06/2016 04/30/2017 Inactive hydrocodone 10 mg-acetaminophen 325 mg tablet RxNorm: 789399 1-2 Tablet(s) PO Q4 PRN as needed for pain 03/04/20162016 Inactive hydrocodone 10 mg-acetaminophen 325 mg tablet RxNorm: 602725 1-2 Tablet(s) PO Q4 PRN as needed for pain 02/01/20162015 Inactive omeprazole 20 mg capsule,delayed release RxNorm: 329550 1 Capsule(s) PO BID 01/04/2016 07/01/2016 Inactive atorvastatin 40 mg tablet RxNorm: 870889 1 Tablet(s) PO daily 01/04/2016 06/03/2017 Inactive lisinopril 10 mg tablet RxNorm: 783212 1 Tablet(s) PO daily 05/05/2017 Inactive meloxicam 15 mg tablet RxNorm: 257024 TAKE 1 TABLET BY MOUTH EVERY DAY 10/17/2015 07/01/2016 Inactive levothyroxine 50 mcg tablet RxNorm: 576866 1 TABLET(S) PO DAILY 10/17/2015 07/12/2016 Inactive hydrocodone 10 mg-acetaminophen 325 mg tablet RxNorm: 772338 1-2 Tablet(s) PO Q4 PRN as needed for pain 10/10/20152015 Inactive Lipitor 40 mg tablet RxNorm: 949050 1 Tablet(s) PO daily 201501/03/2016 Inactive MS Contin 60 mg tablet,extended release RxNorm: 318205 1 Tablet(s) PO BID 08/30/2015 10/03/2015 Inactive hydrocodone 10 mg-acetaminophen 325 mg tablet RxNorm: 194451 1-2 Tablet(s) PO Q4 PRN as needed for pain 08/30/20152015 Inactive doxazosin 4 mg tablet RxNorm: 049988 1 Tablet(s) PO daily 201507/26/2016 Inactive OxyContin 20 mg tablet,crush resistant,extended release RxNorm: 9693587 1 Tablet(s ) PO BID 08/02/2015 08/29/2015 Inactive meloxicam 15 mg tablet RxNorm: 730373 TAKE 1 TABLET BY MOUTH EVERY DAY 07/25/2015 10/16/2015 Inactive hydrocodone 10 mg-acetaminophen 325 mg tablet RxNorm: 625282 1 Tablet(s) PO Q4 PRN as needed for pain 07/13/20152015 Inactive levothyroxine 50 mcg tablet RxNorm: 376724 1 Tablet(s) PO daily 07/13/2015 10/10/2015 Inactive metoprolol succinate ER 25 mg tablet,extended release 24 hr RxNorm: 733593 1 Tablet(s) PO daily 06/30/2015 06/23/2016 Inactive hydrocodone 10 mg-acetaminophen 325 mg tablet RxNorm: 392856 1 Tablet(s) PO Q4 PRN as needed for pain 04/21/20152015 Inactive hydrocodone 10 mg-acetaminophen 325 mg tablet RxNorm: 813768 1 Tablet(s) PO Q4 PRN as needed for pain 03/30/20152015 Inactive allopurinol 100 mg tablet RxNorm: 272968 3 Tablet(s) PO 2 at am 1 at hs UD 02/08/2015 02/02/2016 Inactive hydrocodone 10 mg-acetaminophen 325 mg tablet RxNorm: 045637 1 Tablet(s) PO Q4 PRN 01/25/2015 03/29/2015 Inactive omeprazole 20 mg capsule,delayed release RxNorm: 823363 1 Capsule(s) PO BID 1at am 1at pm 01/05/2015 12/30/2015 Inactive hydrocodone 10 mg-acetaminophen 325 mg tablet RxNorm: 429682 1 Tablet(s) PO Q4 PRN 01/05/2015 01/24/2015 Inactive Voltaren 1 % topical gel RxNorm: 824286 4 Gram(s) TOP QID 10/0612/04/2014 Inactive Multivitamin & Mineral Formula oral RxNorm: oral No Start Date Active potassium 99 mg tablet RxNorm: 1 Tablet(s) PO daily No Start Date Active amiodarone 200 mg tablet RxNorm: 454724 1 Tablet(s) PO QAM No Start Date Active Eliquis 5 mg tablet RxNorm: 2581496 1/2 Tablet(s) PO BID No Start Date Active B ywuqagf-H-jtxlkas tablet RxNorm: 1 Tablet(s) PO daily No Start Date Active magnesium oxide 400 mg tablet RxNorm: 604935 1 Tablet(s) PO daily No Start Date Active lisinopril 5 mg tablet RxNorm: 717880 1/2 Tablet(s) PO BID No Start Date Active aspirin 81 mg tablet RxNorm: 754489 1 Tablet(s) PO daily No Start Date Active omega 3 183.3 mg-dha 75 mg-epa 91.6 mg-fish oil 306 mg capsule RxNorm: 1 Capsule(s) PO daily No Start Date Active Calcium + D 600 mg (1,500)-200 unit tablet RxNorm: 693378 1 Tablet(s) PO daily No Start Date Active allopurinol 100 mg tablet RxNorm: 781612 Tablet(s) PO 2 at am 1 at hs No Start Date 02/07/2015 Inactive Zithromax Z-Elmer 250 mg tablet RxNorm: 742786 1 Tablet(s) PO UD No Start Date 05/29/2017 Inactive clopidogrel 75 mg tablet RxNorm: 595073 1 Tablet(s) PO daily No Start Date 02/23/2018 Inactive pantoprazole 40 mg tablet,delayed release RxNorm: 779661 1 Tablet(s) PO daily No Start Date 08/18/2016 Inactive meloxicam 15 mg tablet RxNorm: 567856 1 Tablet(s) PO daily No Start Date 07/24/2015 Inactive doxazosin 4 mg tablet RxNorm: 936065 1 Tablet(s) PO daily No Start Date 08/01/2015 Inactive hydrocodone 7.5 mg-acetaminophen 325 mg tablet RxNorm: 108667 1 Tablet(s) PO QID as needed for pain No Start Date 2014 Inactive Vitamin D3 5,000 unit tablet RxNorm: 393961 1 Tablet(s) PO daily No Start Date 07/01/2016 Inactive B-12 Plus 1,000 mcg/mL injection solution RxNorm: 364656 1 Milliliter(s) Inj daily No Start Date 07/01/2016 Inactive magnesium citrate RxNorm: 6574 miscellaneous No Start Date 07/02/2016 Inactive Lipitor 20 mg tablet RxNorm: 943367 1 Tablet(s) PO daily No Start Date 08/29/2015 Inactive metoprolol succinate ER 25 mg tablet,extended release 24 hr RxNorm: 629582 1 Tablet(s) PO daily No Start Date 2015 Inactive lisinopril 10 mg tablet RxNorm: 515964 1 Tablet(s) PO daily No Start Date 01/03/2016 Inactive levothyroxine 50 mcg tablet RxNorm: 080822 1 Tablet(s) PO daily No Start Date 07/12/2015 Inactive omeprazole 20 mg capsule,delayed release RxNorm: 022460 1 Capsule(s) PO daily No Start Date 01/18/2018 Inactive Ranexa 500 mg tablet,extended release RxNorm: 275883 1 Tablet(s) PO BID No Start Date 02/23/2018 Inactive omeprazole 20 mg capsule,delayed release RxNorm: 720931 Capsule(s) PO daily 1at am 1at pm [...] Item Item Code Result Date Free T4 Pim546 FREE T4 0.87 ng/dL 12/04/2017 Tsh Ord6 TSH (3rd IS) 3.04 uIU/mL 12/04/2017 Lipid Ord30 CHOL 164 mg/dL 03/17/2017 Lipid Ord30 HDL 43.0 mg/dl 03/17/2017 Lipid Ord30 TRIG 144 mg/dL 03/17/2017 Lipid Ord30 LDL 92 mg/dL 03/17/2017 Lipid Ord30 C/HDL 3.8 Ratio 03/17/2017 Hepatic Uwz352 ALBUMIN 4.4 g/dL 03/17/2017 Hepatic Ulu894 TPRO 7.3 g/dL 03/17/2017 Hepatic Zsa913 GLOB 2.9 g/dL 03/17/2017 Hepatic Lqj137 A/G Ratio 1.5 Ratio 03/17/2017 Hepatic Ztb474 ALK PHOS 125 U/L 03/17/2017 Hepatic Aeb550 ALT(SGPT) 15 U/L 03/17/2017 Hepatic Ctz231 AST(SGOT) 22 U/L 03/17/2017 Hepatic Vvc716 BILI T 0.7 mg/dL 03/17/2017 Hepatic Mzy410 BILI D 0.1 mg/dL 03/17/2017 Hepatic Shb189 BILI I 0.6 mg/dL 03/17/2017 Tsh Ord6 hTSH II 2.89 uIU/mL 01/13/2017 Comp Metabolic Uao681 NA 139 mEq/L 01/13/2017 Comp Metabolic Lwj599 K 4.4 mEq/L 01/13/2017 Comp Metabolic Ceo359 CL 105 mEq/L 01/13/2017 Comp Metabolic Mzq672 CO2 29.0 mEq/L 01/13/2017 Comp Metabolic Vum856 ANION GAP 9 01/13/2017 Comp Metabolic Scb012 GLUCOSE 105 mg/dL 01/13/2017 Comp Metabolic Scv433 Creat 1.1 mg/dL 01/13/2017 Comp Metabolic Ddm768 eGFR 68 ml/min/1.73m2 01/13/2017 Comp Metabolic Ohd635 BUN 12 mg/dL 01/13/2017 Comp Metabolic Smh373 B/C Ratio 10.7 Ratio 01/13/2017 Comp Metabolic Haq470 CALCIUM 9.2 mg/dL 01/13/2017 Comp Metabolic Rjm173 ALK PHOS 90 U/L 01/13/2017 Comp Metabolic Fpw724 AST(SGOT) 18 U/L 01/13/2017 Comp Metabolic Fxn535 ALT(SGPT) 12 U/L 01/13/2017 Comp Metabolic Yfi943 BILI T 0.5 mg/dL 01/13/2017 Comp Metabolic Kkb669 ALBUMIN 4.1 g/dL 01/13/2017 Comp Metabolic Xin762 TPRO 6.4 g/dL 01/13/2017 Comp Metabolic Tpn237 GLOB 2.3 g/dL 01/13/2017 Comp Metabolic Qtz886 A/G Ratio 1.8 Ratio 01/13/2017 Comp Metabolic Oty422 Osmo 278 mOsmo 01/13/2017 Lipid Ord30 CHOL [...] 35.6 pg 01/13/2017 Cbc With Differential Ord2 [place]% 10.5 % 01/13/2017 Cbc With Differential Ord2 [...] 1.30 K/ul 01/13/2017 Cbc With Differential Ord2 [place] ABS# 0.7 K/ul 01/13/2017 Cbc With Differential Ord2 Eos ABS# 0.2 K/ul 01/13/2017 Cbc With Differential Ord2 Baso ABS# 0.0 K/ul 01/13/2017 Total Psa Ord10 PSA 0.02 ng/mL 01/13/2017 Vitamin D 25 Oh Iqy0628 VITAMIN D, 25 HYDROXY 65.24 ng/mL Tsh Ord6 hTSH II 1.32 uIU/mL 10/20/2014 Comp Metabolic Bqk451 NA 138 mEq/L 10/20/2014 Comp Metabolic Nnz422 K 4.4 mEq/L 10/20/2014 Comp Metabolic Vyx747 CL 106 mEq/L 10/20/2014 Comp Metabolic Qrb219 CO2 28.0 mEq/L 10/20/2014 Comp Metabolic Kek399 ANION GAP 8 10/20/2014 Comp Metabolic Shs383 GLUCOSE 98 mg/dL 10/20/2014 Comp Metabolic Ofg094 Creat 1.0 mg/dL 10/20/2014 Comp Metabolic Ody314 eGFR 74 ml/min/1.73m2 10/20/2014 Comp Metabolic Jrr698 BUN 14 mg/dL 10/20/2014 Comp Metabolic Pfq203 B/C Ratio 13.5 Ratio 10/20/2014 Comp Metabolic Jnn554 CALCIUM 9.4 mg/dL 10/20/2014 Comp Metabolic Rhb330 ALK PHOS 125 U/L 10/20/2014 Comp Metabolic Zqy654 AST(SGOT) 22 U/L 10/20/2014 Comp Metabolic Xfj741 ALT(SGPT) 20 U/L 10/20/2014 Comp Metabolic App351 BILI T 0.5 mg/dL 10/20/2014 Comp Metabolic Ale922 ALBUMIN 4.4 g/dL 10/20/2014 Comp Metabolic Mnr327 TPRO 6.7 g/dL 10/20/2014 Comp Metabolic Hfn850 GLOB 2.3 g/dL 10/20/2014 Comp Metabolic Qcb955 A/G Ratio 1.9 Ratio 10/20/2014 Comp Metabolic Ntc995 Osmo 276 mOsmo 10/20/2014 Cbc With Differential [...] FLU VACC PRSV FREE INC ANTIG CPT-4: 78133 02/12/2018 PPPS, SUBSEQ VISIT CPT -4: G0439 10/24/2017 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 3-[address]: 039562812 CPT-4: G0436 02/04/2017 ADMIN INFLUENZA VIRUS VAC CPT-4: G0008 02/04/2017 FLU VAC NO PRSV 4 ROSETTE 3 YRS+ CPT-4: 09435 02/04/2017 PPPS, SUBSEQ VISIT CPT -4: G0439 10/18/2016 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 3-[address]: 438375488 CPT-4: G0436 10/03/2016 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 3-[address]: 537681520 CPT-4: G0436 07/02/2016 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 3-[address]: 411041193 CPT-4: G0436 04/04/2016 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 3-[address]: 673590827 CPT-4: G0436 01/04/2016 ADMIN INFLUENZA VIRUS VAC CPT-4: G0008 01/04/2016 ADMIN PNEUMOCOCCAL VACCINE SNOMED CT: 69346358 CPT-4: G0009 01/04/2016 PNEUMOCOCCAL VACC [address]: 66283259 CPT-4: 43819 01/04/2016 FLU VACC 4 ROSETTE 3 YRS PLUS IM SNOMED CT: 89632714 CPT-4: 17857 01/04/2016 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 3-[address]: 968178230 CPT-4: G0436 10/04/2015 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 3-[address]: 833562853 CPT-4: G0436 08/30/2015 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 3-[address]: 432669614 CPT-4: G0436 08/02/2015 ADMIN INFLUENZA VIRUS VAC CPT-4: G0008 01/05/2015 FLU VACC 4 ROSETTE 3 YRS PLUS IM Formatting Model/CDA Sections, Assigned to SNOMED CT: 92819253 CPT-4: 08247Dfmxcaa 01/05/2015 Vital Signs Date Vital 02/24/2018 Blood Pressure 1: 108/62 Code : 8480-6 BMI: 29.0 Code : 60684-3 Heart Rate 1 : 67 bpm Height: 6' SpO2: 98% Weight: 214 lbs 12/04/2017 Blood Pressure 1: 142/70 Code : 8480-6 BMI: 28.2 Code : 48578-4 Heart Rate 1 : 103 bpm Height: 6' SpO2: 94% Weight: 208 lbs 10/24/2017 Height: Weight: 08/28/2017 Blood Pressure 1: 130/72 Code : 8480-6 BMI: 28.3 Code : 67046-4 Heart Rate 1 : 60 bpm Height: 6' SpO2: 96% Weight: 209 lbs 07/31/2017 Blood Pressure 1: 126/64 Code : 8480-6 BMI: 29.7 Code : 78573-3 Heart Rate 1 : 59 bpm Height: 6' SpO2: 95% Weight: 219 lbs 06/04/2017 Blood Pressure 1: 134/86 Code : 8480-6 BMI: 28.6 Code : 52130-6 Heart Rate 1 : 91 bpm Height: 6' SpO2: 97% Weight: 211 lbs 02/04/2017 Blood Pressure 1: 128/74 Code : 8480-6 BMI: 28.3 Code : 14457-8 Heart Rate 1 : 63 bpm Height: 6' SpO2: 96% Weight: 209 lbs 10/18/2016 BMI: 27.7 Code: 58310-0 Height: 6' Weight: 204 lbs 10/03/2016 Blood Pressure 1: 118/70 Code : 8480-6 BMI: 27.7 Code : 38399-4 Heart Rate 1 : 58 bpm Height: 6' SpO2: 95% Weight: 204 lbs 07/02/2016 Blood Pressure 1: 104/64 Code : 8480-6 BMI: 28.5 Code : 82418-7 Heart Rate 1 : 63 bpm Height: 6' SpO2: 98% Weight: 210 lbs 04/04/2016 Blood Pressure 1: 116/62 Code : 8480-6 BMI: 29.9 Code : 94607-7 Heart Rate 1 : 59 bpm Height: 6' SpO2: 98% Weight: 220 lbs 8 oz 01/04/2016 Blood Pressure 1: 136/78 Code : 8480-6 BMI: 29.6 Code : 35098-4 Heart Rate 1 : 55 bpm Height: 6' SpO2: 97% Weight: 218 lbs 10/04/2015 Blood Pressure 1: 130/80 Code : 8480-6 BMI: 29.3 Code : 25149-7 Heart Rate 1 : 69 bpm Height: 6' SpO2: 97% Weight: 216 lbs 08/30/2015 Blood Pressure 1: 112/64 Code : 8480-6 BMI: 30.4 Code : 05824-6 Heart Rate 1 : 68 bpm Height: 6' SpO2: 95% Weight: 224 lbs 8 oz 08/02/2015 Blood Pressure 1: 120/70 Code : 8480-6 BMI: 30.1 Code : 02701-4 Heart Rate 1 : 55 bpm Height: 6' SpO2: 97% Weight: 222 lbs 04/21/2015 Blood Pressure 1: 160/86 Code : 8480-6 Blood Pressure 1: 138/82 Code: 8480-6 BMI: 30.9 Code: 05107-0 Heart Rate 1: 96 bpm Height: 6' SpO2: 96% Weight: 228 lbs 03/21/2015 Blood Pressure 1: 124/82 Code : 8480-6 BMI: 30.0 Code : 35783-1 Heart Rate 1 : 78 bpm Height: 6' SpO2: 98% Weight: 221 lbs 01/05/2015 Blood Pressure 1: 138/78 Code : 8480-6 BMI: 29.3 Code : 19514-2 Heart Rate 1 : 61 bpm Height: 6' SpO2: 98% Weight: 216 lbs 10/06/2014 Blood Pressure 1: 130/78 Code : 8480-6 BMI: 29.3 Code : 38209-0 Heart Rate 1 : 71 bpm Height: [...] back pain, takes hydrocodone prescribed by the [facility] back [facility] Location lumbar spine 08/30/2015 None [...] back pain, takes hydrocodone prescribed by the [facility] back pain Location lumbar spine 08/02/2015 None [...] pain, takes hydrocodone initially prescribed by the [facility] back pain Location lumbar spine 04/21/2015 None [...] I10] Diagnosis: Cough[ICD10: R05] Elaine Baeza MD, [facility] CPT-4: 45721 02/24/2018 ([id number]) 23489 EST. PATIENT, LEVEL IV Diagnosis: Essential (primary) hypertension[ICD10: I10] Diagnosis: Atrophy of thyroid (acquired)[ICD10: E03.4] Diagnosis: Pain in left knee[ICD10: M25.562] Diagnosis: Pain in right knee[ICD10: M25.561] Diagnosis: Mixed hyperlipidemia[ICD10: E78.2] Pepper Baeza MD, [facility] CPT-4: 37135 12/04/2017 ([id number]) 37610 EST. PATIENT, LEVEL IV Diagnosis: Essential (primary) hypertension[ICD10: I10] Diagnosis: Pain in left knee[ICD10: M25.562] Diagnosis: Pain in right knee[ICD10: M25.561] Diagnosis: Pain in right hip[ICD10: M25.551] Pepper Baeza MD, [facility] CPT-4: 91559 08/28/2017 [id number]) [id number] EST. PATIENT, LEVEL IV Diagnosis: Chronic pain syndrome[ICD10: G89.4] Diagnosis: Tobacco use[ICD10: Z72.0] Diagnosis: Localized enlarged lymph nodes[ICD10: R59.0] Pepper Baeza MD, [facility] CPT-4: 66927 07/31/2017 ([id number]) 02655 EST. PATIENT, LEVEL IV Diagnosis: Essential (primary) hypertension[ICD10: I10] Diagnosis: Chronic pain syndrome[ICD10: G89.4] Diagnosis: Atrophy of thyroid (acquired)[ICD10: E03.4] Diagnosis: Tobacco use[ICD10: Z72.0] Pepper Baeza MD, [facility] CPT-4: 58431 06/04/2017 ([id number]) 39071 EST. PATIENT, LEVEL IV Diagnosis: Essential (primary) hypertension[ICD10: I10] Diagnosis: Low back pain[ICD10: M54.5] Diagnosis: Iliotibial band syndrome, right leg[ICD10: M76.31] Diagnosis: Chronic pain syndrome[ICD10: G89.4] Diagnosis: Encounter for immunization[ICD10: Z23] Pepper Baeza MD, [facility] CPT-4: 02829 02/04/2017 ([id number]) 59752 EST. PATIENT, LEVEL IV Diagnosis: Essential (primary) hypertension[ICD10: I10] Diagnosis: Chronic pain syndrome[ICD10: G89.4] Diagnosis: Low back pain[ICD10: M54.5] Diagnosis: Pain in right knee[ICD10: M25.561] Diagnosis: Pain in left knee[ICD10: M25.562] Pepper Baeza MD, [facility] CPT-4: 00868 10/03/2016 ([id number]) 67750 EST. PATIENT, LEVEL IV Diagnosis: Essential (primary) hypertension[ICD10: I10] Diagnosis: Mixed hyperlipidemia[ICD10: E78.2] Diagnosis: Chronic pain syndrome[ICD10: G89.4] Diagnosis: Atrophy of thyroid (acquired)[ICD10: E03.4] Pepper Baeza MD, [facility] CPT-4: 85393 07/02/2016 ([id number]) 17627 EST. PATIENT, LEVEL IV Diagnosis: Essential (primary) hypertension[ICD10: I10] Diagnosis: Tobacco use[ICD10: Z72.0] Diagnosis: Chronic pain syndrome[ICD10: G89.4] Pepper Baeza MD, [facility] CPT-4: 02675 04/04/2016 [id number]) 38519 EST. PATIENT, LEVEL IV Diagnosis: Encounter for immunization[ICD10: Z23] Diagnosis: Essential (primary) hypertension[ICD10: I10] Diagnosis: Chronic pain syndrome[ICD10: G89.4] Diagnosis: Tobacco use[ICD10: Z72.0] Diagnosis: Mixed hyperlipidemia[ICD10: E78.2] Diagnosis: Gastro-esophageal reflux disease without esophagitis[ICD10: K21.9] Pepper Baeza MD, [facility] CPT-4: 36315 01/04/2016 ([id number]) 19006 EST. PATIENT, LEVEL IV Diagnosis: Essential (primary) hypertension[ICD10: I10] Diagnosis: Chronic pain syndrome[ICD10: G89.4] Diagnosis: Tobacco use[ICD10: Z72.0] Pepper Baeza MD, [facility] CPT-4: 72142 10/04/2015 ([id number]) 23469 EST. PATIENT, LEVEL III Diagnosis: Chronic pain syndrome[ICD10: G89.4] Diagnosis: Low back pain[ICD10: M54.5] Diagnosis: Tobacco use[ICD10: Z72.0] Diagnosis: Mixed hyperlipidemia[ICD10: E78.2] Pepper Baeza MD, [facility] CPT-4: 53984 08/30/2015 ([id number]) 51120 EST. PATIENT, LEVEL IV Diagnosis: Essential (primary) hypertension[ICD10: I10] Diagnosis: Low back pain[ICD10: M54.5] Diagnosis: Chronic pain syndrome[ICD10: G89.4] Pepper Baeza MD, [facility] CPT-4: 81099 08/02/2015 ([id number]) 68394 EST. PATIENT, LEVEL III Diagnosis: Essential (primary) hypertension[ICD10: I10] Diagnosis: Low back pain[ICD10: M54.5] Elaine Baeza MD, [facility] CPT-4: 06240 04/21/2015 ([id number]) 66109 EST. PATIENT, LEVEL IV Diagnosis: Epigastric pain[ICD10: R10.13] Diagnosis: Essential (primary) hypertension[ICD10: I10] Diagnosis: Gastro-esophageal reflux disease without esophagitis[ICD10: K21.9] Pepper Baeza MD, [facility] CPT-4: 12800 03/21/2015 ([id number]) 52150 EST. PATIENT, LEVEL III Diagnosis: ESSENTIAL HYPERTENSION[ICD9: 401.9] Diagnosis: SCIATICA[ICD9: 724.3] Pepper Baeza MD, [facility] CPT-4: 88693 01/05/2015 ([id number]) OFFICE VISIT, NEW - LEVEL 4 Diagnosis: ESSENTIAL HYPERTENSION[ICD9: 401.9] Diagnosis: HYPOTHYROIDISM[ICD9: 244.9] Diagnosis: ESOPHAGEAL REFLUX[ICD9: 530.81] [facility] CPT- 4: 68085 10/06/2014 Plan of Care Planned Activity Notes Codes Status Date Visit Plan: Afib-hospital follow up cardioversion in the hospital -patient is doing well -sees Dr Subramanian this afternoon -will schedule sleep study HTN-slightly low today-no changes-monitor blood pressure at home Cough-monitor symptoms and let us know if cough does not resolve, or if any worse 02/24/2018 Patient Education: Patient Medication Summary Completed [...] of over-medication. 12/04/2017 Appointment: Pepper Baeza WPtel: [phone] [facility] (15 min) Moderate 12/04/2017 Patient Education: Patient [...] surrogate. 10/24/2017 Appointment: Parul Collier WPtel: [phone] [facility] [facility] - Annual Wellness Visit 10/24/2017 Patient Education: Patient Medication Summary Completed 10/24/2017 Appointment: Pepper Baeza WPtel: [phone] [facility] (15 min) Moderate 09/09/2017 Visit Plan: Hypertension [...] anterior hip/thigh 08/28/2017 Appointment: Pepper Baeza WPtel[facility] ([facility] min) Moderate 08/28/2017 Patient Education: Patient Medication Summary Completed 08/28/2017 Care Plan: X-RAY EXAM OF HIP LOINC : 70951-5 Pending 08/28/2017 Visit Plan: Hypertension - well [...] #180 pills. 07/31/2017 Appointment: Pepper Baeza WPtel: [facility] [facility] [place] ([facility] min) Moderate 07/31/2017 Patient Education: Patient Medication Summary Completed 07/31/2017 Care Plan: CT THORAX W/O DYE LOINC : 38753-3 Pending 07/31/2017 Visit Plan: Hypertension - well [...] Sagastume tomorrow. 06/04/2017 Appointment: Pepper Baeza WPtel: [address] [place], [place] [id number] (30 min) Complex 06/04/2017 Patient Education: Patient [...] clinic today 02/04/2017 Appointment: Pepper Baeza WPtel: [facility] ([facility] min) Complex 02/04/2017 Patient [...] care surrogate. 10/18/2016 Appointment: Parul Collier WPtel: [facility] [facility] - Annual Wellness Visit 10/18/2016 Patient Education: Patient Medication Summary Completed 10/18/2016 Patient Education: Smoking and Tobacco Addiction Completed 10/18/2016 Visit Plan: Low back pain - and knee pain - recommended a referal to [facility] physical therapy for strengthening, knee pain, [...] need stenting. 10/03/2016 Appointment: Pepper Baeza WPtel: [facility]5 [facility] [place] (30 min) Complex 10/03/2016 Patient Education: Patient [...] time. 07/02/2016 Appointment: Pepper Baeza WPtel: [phone] [facility] (30 min) Complex 07/02/2016 Patient Education: Patient [...] smoking. 04/04/2016 Appointment: [facility] Baeza WPtel[phone] (30 min) Complex 04/04/2016 Patient Education: Patient [...] improving. 01/04/2016 Appointment: Pepper Baeza WPtel: [phone] [facility] (15 min) Moderate 01/04/2016 Patient Education: Patient [...] of over-medication. 10/04/2015 Appointment: [facility] Baeza WPtel: [phone] (15 min) Moderate 10/04/2015 Patient [...] stopping smoking. 08/02/2015 Appointment: Pepper Baeza WPtel: [address] [place], [place] [id number] (15 min) Moderate 08/02/2015 Patient Education: Patient [...] to patient. 10/06/2014 Appointment: Pepper Baeza WPtel: [address] [place], [place] [id number] [place] (S) New Patient 10/06/2014 Patient Education: Patient Medication Summary Completed 10/06/2014 Patient Education: Hypertension Completed 10/06/2014 Instructions Comment get labs one week before your next appt . Low back pain - and knee pain - [facility] knee [...]
--- OUTSIDE RECORDS SUMMARY | 2018-03-16 10:38 | XMS REPORT | Continuity of Care Document ---
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 DYSPNEA, UNSPECIFIED 08/07/2017 DEAN SHI CAR REFINISHER Ot R91.1 SOLITARY PULMONARY NODULE 08/07/2017 DEAN SHI APRN Ot Z72.0 TOBACCO USE 08/07/2017 DEAN SHI CAR REFINISHER Ot R91.1 SOLITARY PULMONARY NODULE 08/07/2017 LINDSAY SIMMS Ot F17.210 NICOTINE DEPENDENCE, CIGARETTES, UNCOMPL 08/07/2017 LINDSAY SIMMS Ot R91.1 SOLITARY PULMONARY NODULE 08/07/2017 LINDSAY SIMMS Ot Z08 ENCNTR FOR FOLLOW-UP EXAM AFTER TRTMT FO 08/07/2017 LINDSAY SIMMS Ot Z79.899 OTHER FPC (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 THERAPY 08/07/2017 LINDSAY SIMMS Ot 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 08/07/2017 LIANA ARIAS Ot E78.2 MIXED HYPERLIPIDEMIA 08/07/2017 LIANA ARIAS Ot I10 ESSENTIAL (PRIMARY) HYPERTENSION 08/07/2017 LIANA ARIAS Ot I25.10 ATHSCL HEART DISEASE OF [place] CORONARY 08/07/2017 LIANA ARIAS Ot I65.23 OCCLUSION [...] Fausto Ot V58.69 OTH MED,LT,CURRENT USE 08/09/2017 ILNDSAY SIMMS Fausto Ot V67.09 SURGERY FOLLOW-UP, OTHER [...] Ot 440.0 AORTIC ATHEROSCLEROSIS 08/09/2017 ANTHONY CASTRO MIXER OPERATOR TABLETS Ot 305.1 TOBACCO USE DISORDER 08/09/2017 ANTHONY CASTRO MIXER OPERATOR TABLETS Ot 709.9 SKIN DISORDER NOS 08/09/2017 BRIDGETT CASTROIVÁN Marquise MIXER OPERATOR TABLETS Ot 787.99 OTHER GI SYSTEM SYMPTOMS 08/09/2017 ANTHONY CASTRO MIXER OPERATOR TABLETS Ot V10.82 HX-MALIG SKIN MELANOMA 08/09/2017 KAYLEY [...] FO 08/09/2017 LINDSAY SIMMS Ot Z79.899 OTHER LOGGING EQUIPMENT MECHANIC (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 THERAPY 08/09/2017 LINDSAY SIMMS Ot 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 08/09/2017 GEOFFREY PA, LIANA K Ot E78.0 PURE HYPERCHOLESTEROLEMIA 08/09/2017 GEOFFREY PA, LIANA K Ot I10 ESSENTIAL (PRIMARY) HYPERTENSION 08/09/2017 GEOFFREY PA, LIANA K Ot I25.10 ATHSCL HEART DISEASE OF [place] CORONARY 08/09/2017 GEOFFREY PA, LIANA K Ot 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 08/09/2017 GEOFFREY PA, LIANA K Ot E78.0 PURE HYPERCHOLESTEROLEMIA 08/09/2017 GEOFFREY PA, LIANA K Ot I10 ESSENTIAL (PRIMARY) HYPERTENSION 08/09/2017 GEOFFREY PA, LIANA K Ot I25.10 ATHSCL HEART DISEASE OF [place] CORONARY 08/09/2017 GEOFFREY PA, LIANA K Ot 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 08/09/2017 LINDSAY SIMMS Fausto Ot F17.200 NICOTINE DEPENDENCE, UNSPECIFIED, UNCOMP 08/09/2017 LINDSAY SIMMS Fausto Ot Z08 ENCNTR FOR FOLLOW-UP EXAM AFTER TRTMT FO 08/09/2017 LINDSAY SIMMS Fausto Ot Z79.899 OTHER LOGGING EQUIPMENT MECHANIC (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 THERAPY 08/09/2017 LINDSAY SIMMS N Ot 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 08/09/2017 DEMI JAROCHOVANDANA Fausto Ot F17.210 NICOTINE DEPENDENCE, CIGARETTES, UNCOMPL 08/09/2017 DEMI JAROCHOVANDANA Fausto Ot Z08 ENCNTR FOR FOLLOW-UP EXAM AFTER TRTMT FO 08/09/2017 LINDSAY SIMMS N Ot Z79.899 OTHER LOGGING EQUIPMENT MECHANIC (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 THERAPY 08/09/2017 DEMI, JAROCHOVANDANA N [...] NODULE 08/09/2017 JANN YADAV MD, Ot Z79.02 LOGGING EQUIPMENT MECHANIC (CURRENT) USE OF ANTITHROMBOTI 08/09/2017 JANN YADAV MD, Ot Z79.899 OTHER LOGGING EQUIPMENT MECHANIC (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 THERAPY 08/09/2017 JANN YADAV MD, Ot Z95.1 PRESENCE OF AORTOCORONARY BYPASS GRAFT 08/09/2017 KAYLEY LAMBERT MD Ot E11.9 TYPE 2 DIABETES MELLITUS WITHOUT COMPLIC 08/09/2017 KAYLEY LAMBERT MD Ot E78.2 MIXED HYPERLIPIDEMIA 08/09/2017 KAYLEY LAMBERT MD, Ot I10 ESSENTIAL (PRIMARY) HYPERTENSION 08/09/2017 KAYLEY LAMBERT MD, Ot I25.10 ATHSCL HEART DISEASE OF [place] CORONARY 08/09/2017 KAYLEY LAMBERT MD Ot R06.00 DYSPNEA, UNSPECIFIED 08/09/2017 DEAN SHI APRN Ot R06.00 DYSPNEA, UNSPECIFIED 08/09/2017 DEAN SHI CAR REFINISHER Ot R91.1 SOLITARY PULMONARY NODULE 08/09/2017 DEAN SHI CAR REFINISHER Ot Z72.0 TOBACCO USE 08/09/2017 DEAN SHI CAR REFINISHER Ot R91.1 SOLITARY PULMONARY NODULE 08/09/2017 LINDSAY SIMMS Ot F17.210 NICOTINE DEPENDENCE, CIGARETTES, UNCOMPL 08/09/2017 LINDSAY SIMMS Ot R91.1 SOLITARY PULMONARY NODULE 08/09/2017 LINDSAY SIMMS Ot Z08 ENCNTR FOR FOLLOW-UP EXAM AFTER TRTMT FO 08/09/2017 LINDSAY SIMMS Ot Z79.899 OTHER FPC (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 THERAPY 08/09/2017 LINDSAY SIMMS Ot 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 08/09/2017 LIANA ARIAS Ot E78.2 MIXED HYPERLIPIDEMIA 08/09/2017 LIANA ARIAS Ot I10 ESSENTIAL (PRIMARY) HYPERTENSION 08/09/2017 LIANA ARIAS Ot I25.10 ATHSCL HEART DISEASE OF [place] CORONARY 08/09/2017 LIANA ARIAS Ot I65.23 OCCLUSION [...] SUBSEQUENT 08/09/2017 JANN YADAV MD Ot Z79.82 LOGGING EQUIPMENT MECHANIC (CURRENT) USE OF ASPIRIN 08/09/2017 JANN YADAV [...] SUBSEQUENT 08/11/2017 JANN YADAV MD Ot Z79.82 FPC (CURRENT) USE OF ASPIRIN 08/11/2017 JANN YADAV [...] 11/26/2017 Ot I25.10 ATHSCL HEART DISEASE OF [place] CORONARY 11/26/2017 Ot I65.29 OCCLUSION AND STENOSIS OF UNSPECIFIED CA 11/26/2017 Ot I73.9 PERIPHERAL VASCULAR DISEASE, UNSPECIFIED 11/26/2017 Ot I77.811 ABDOMINAL AORTIC ECTASIA 11/26/2017 Ot M19.91 PRIMARY OSTEOARTHRITIS, UNSPECIFIED SITE 11/26/2017 Ot M79.661 PAIN IN RIGHT LOWER LEG 11/26/2017 Ot M79.662 PAIN IN LEFT LOWER LEG 11/26/2017 Ot Z79.899 OTHER FPC (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 THERAPY 11/26/2017 Ot Z85.46 PERSONAL HISTORY OF MALIGNANT NEOPLASM O 11/26/2017 Ot 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 11/26/2017 Ot Z95.1 PRESENCE OF AORTOCORONARY BYPASS GRAFT 02/17/2018 ELAINE FRANKLIN MD Ot E03.9 HYPOTHYROIDISM, UNSPECIFIED 02/17/2018 ELAINE FRANKLIN MD Ot E78.5 HYPERLIPIDEMIA, UNSPECIFIED 02/17/2018 ELAINE FRANKLIN MD Ot F17.210 NICOTINE DEPENDENCE, CIGARETTES, UNCOMPL 02/17/2018 ELAINE FRANKLIN MD Ot I10 ESSENTIAL (PRIMARY) HYPERTENSION 02/17/2018 ELAINE FRANKLIN MD Ot I25.110 ATHSCL HEART DISEASE OF [place] COR ART W 02/17/2018 ELAINE FRANKLIN MD Ot I48.92 UNSPECIFIED ATRIAL FLUTTER 02/17/2018 ELAINE FRANKLIN MD Ot I73.9 PERIPHERAL VASCULAR DISEASE, UNSPECIFIED 02/17/2018 ELAINE FRANKLIN MD Ot I77.1 STRICTURE OF ARTERY 02/17/2018 ELAINE FRANKLIN MD Ot I77.811 ABDOMINAL AORTIC ECTASIA 02/17/2018 ELAINE FRANKLIN MD Ot I95.9 HYPOTENSION, UNSPECIFIED 02/17/2018 ELAINE FRANKLIN MD Ot K21.9 GASTRO-ESOPHAGEAL REFLUX DISEASE WITHOUT 02/17/2018 ELAINE FRANKLIN MD Ot M10.9 GOUT, UNSPECIFIED 02/17/2018 ELAINE FRANKLIN MD Ot M19.91 PRIMARY OSTEOARTHRITIS, UNSPECIFIED SITE 02/17/2018 ELAINE FRANKLIN MD Ot M54.9 DORSALGIA, UNSPECIFIED 02/17/2018 ELAINE FRANKLIN MD Ot R06.81 APNEA, NOT ELSEWHERE CLASSIFIED 02/17/2018 ELAINE FRANKLIN MD Ot R79.89 OTHER SPECIFIED ABNORMAL FINDINGS OF BLO 02/17/2018 NOEMI CASTANEDA, ELAINE Chaidez Ot R91.1 SOLITARY PULMONARY NODULE 02/17/2018 ELAINE FRANKLIN MD Ot 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 02/17/2018 ELAINE FRANKLIN MD Ot Z95.1 PRESENCE OF AORTOCORONARY BYPASS GRAFT 02/17/2018 ELAINE FRANKLIN MD Ot Z95.5 PRESENCE OF CORONARY ANGIOPLASTY IMPLANT 02/17/2018 ELAINE FRANKLIN MD Ot E03.9 HYPOTHYROIDISM, UNSPECIFIED 02/17/2018 ELAINE FRANKLIN MD Ot E78.5 HYPERLIPIDEMIA, UNSPECIFIED 02/17/2018 ELAINE FRANKLIN MD Ot F17.210 NICOTINE DEPENDENCE, CIGARETTES, UNCOMPL 02/17/2018 ELAINE FRANKLIN MD Ot I10 ESSENTIAL (PRIMARY) HYPERTENSION 02/17/2018 ELAINE FRANKLIN MD Ot I25.110 ATHSCL HEART DISEASE OF [place] COR ART W 02/17/2018 ELAINE FRANKLIN MD Ot I48.92 UNSPECIFIED ATRIAL FLUTTER 02/17/2018 ELAINE FRAKNLIN MD Ot I73.9 PERIPHERAL VASCULAR DISEASE, UNSPECIFIED 02/17/2018 ELAINE FRANKLIN MD Ot I77.1 STRICTURE OF ARTERY 02/17/2018 ELAINE FRANKLIN MD Ot I77.811 ABDOMINAL AORTIC ECTASIA 02/17/2018 ELAINE FRANKLIN MD Ot I95.9 HYPOTENSION, UNSPECIFIED 02/17/2018 ELAINE FRANKLIN MD Ot K21.9 GASTRO-ESOPHAGEAL REFLUX DISEASE WITHOUT 02/17/2018 ELAINE FRANKLIN MD Ot M10.9 GOUT, UNSPECIFIED 02/17/2018 ELAINE FRANKLIN MD Ot M19.91 PRIMARY OSTEOARTHRITIS, UNSPECIFIED SITE 02/17/2018 ELAINE FRANKLIN MD Ot M54.9 DORSALGIA, UNSPECIFIED 02/17/2018 ELAINE FRANKLIN MD Ot R06.81 APNEA, NOT ELSEWHERE CLASSIFIED 02/17/2018 ELAINE FRANKLIN MD Ot R79.89 OTHER SPECIFIED ABNORMAL FINDINGS OF BLO 02/17/2018 ELAINE FRANKLIN MD Ot R91.1 SOLITARY PULMONARY NODULE 02/17/2018 ELAINE FRANKLIN MD Ot 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 02/17/2018 ELAINE FRANKLIN MD Ot Z95.1 PRESENCE OF AORTOCORONARY BYPASS GRAFT 02/17/2018 ELAINE FRANKLIN MD Ot Z95.5 PRESENCE OF CORONARY ANGIOPLASTY IMPLANT 02/17/2018 ELAINE FRANKLIN MD Ot E03.9 HYPOTHYROIDISM, UNSPECIFIED 02/17/2018 ELAINE FRANKLIN MD Ot E78.5 HYPERLIPIDEMIA, UNSPECIFIED 02/17/2018 ELAINE FRANKLIN MD Ot F17.210 NICOTINE DEPENDENCE, CIGARETTES, UNCOMPL 02/17/2018 ELAINE FRANKLIN MD Ot G47.30 SLEEP APNEA, UNSPECIFIED 02/17/2018 ELAINE FRANKLIN MD Ot I10 ESSENTIAL (PRIMARY) HYPERTENSION 02/17/2018 ELAINE FRANKLIN MD Ot I25.110 ATHSCL HEART DISEASE OF [place] COR ART W 02/17/2018 ELAINE FRANKLIN MD Ot I34.0 NONRHEUMATIC MITRAL (VALVE) INSUFFICIENC 02/17/2018 ELAINE FRANKLIN MD Ot I48.92 UNSPECIFIED ATRIAL FLUTTER 02/17/2018 ELAINE FRANKLIN MD Ot 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 02/17/2018 ELAINE FRANKLIN MD Ot I73.9 PERIPHERAL VASCULAR DISEASE, UNSPECIFIED 02/17/2018 ELAINE FRANKLIN MD Ot I77.1 STRICTURE OF ARTERY 02/17/2018 ELAINE FRANKLIN MD Ot I77.811 ABDOMINAL AORTIC ECTASIA 02/17/2018 ELAINE FRANKLIN MD Ot I95.9 HYPOTENSION, UNSPECIFIED 02/17/2018 ELAINE FRANKLIN MD Ot K21.9 GASTRO-ESOPHAGEAL REFLUX DISEASE WITHOUT 02/17/2018 ELAINE FRANKLIN MD Ot M10.9 GOUT, UNSPECIFIED 02/17/2018 ELAINE FRANKLIN MD Ot M19.91 PRIMARY OSTEOARTHRITIS, UNSPECIFIED SITE 02/17/2018 ELAINE FRANKLIN MD, Ot M54.9 DORSALGIA, UNSPECIFIED 02/17/2018 ELAINE FRANKLIN MD Ot R06.81 APNEA, NOT ELSEWHERE CLASSIFIED 02/17/2018 ELAINE FRANKLIN MD Ot R09.02 HYPOXEMIA 02/17/2018 ELAINE FRANKLIN MD Ot R79.89 OTHER SPECIFIED ABNORMAL FINDINGS OF BLO 02/17/2018 ELAINE FRANKLIN MD Ot R91.1 SOLITARY PULMONARY NODULE 02/17/2018 ELAINE FRANKLIN MD, Ot Z85.46 PERSONAL HISTORY OF MALIGNANT NEOPLASM O 02/17/2018 ELAINE FRANKLIN MD, Ot 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 02/17/2018 ELAINE FRANKLIN MD, Ot Z95.1 PRESENCE OF AORTOCORONARY BYPASS GRAFT 02/17/2018 ELAINE FRANKLIN MD, Ot Z95.5 PRESENCE OF CORONARY ANGIOPLASTY IMPLANT Procedures Code Description Performed By Performed On [id number] RASTAFARIAN OF CARDIAC RHYTHM, SINGLE 02/16/2018 [id number] ULTRASONOGRAPHY OF RIGHT AND LEFT HEART, 02/16/2018 Results Test Result Range Complete urinalysis with [...] i.cardiac measurement (mass/volume) < ng/ mL <0.30 [id number] - 08/11/17 10:32 Serum or plasma urea nitrogen measurement (mass/volume) 16 mg/dL 7-18 Serum or plasma creatinine measurement (mass/volume) 1.18 mg/dL 0.60-1.30 Serum or plasma urea nitrogen/creatinine mass ratio 14 NRG Serum or plasma creatinine measurement with calculation of estimated glomerular filtration rate 60 NRG Complete blood count (CBC) with automated white blood cell (WBC) differential - 02/13/18 11:58 Blood leukocytes automated count (number/volume) 8.1 10*3/uL 4.3-11.0 Blood erythrocytes automated count (number/volume) 4.18 10*6/uL 4.35-5.85 Venous blood hemoglobin measurement (mass/volume) 14.5 g/dL 13.3-17.7 Blood hematocrit (volume fraction) 42 % 40-54 Automated erythrocyte mean corpuscular volume 101 [foz_us] 80-99 Automated erythrocyte mean corpuscular hemoglobin (mass per erythrocyte) 35 pg 25-34 Automated erythrocyte mean corpuscular hemoglobin concentration measurement ( mass/volume) 34 g/dL 32-36 Automated erythrocyte distribution width ratio 13.7 % 10.0-14.5 Automated blood platelet count (count/volume) 209 10*3/uL 130-400 Automated blood platelet mean volume measurement 9.3 [foz_us] 7.4-10.4 Automated blood neutrophils/100 leukocytes 63 % 42-75 Automated blood lymphocytes/100 leukocytes 22 % 12-44 Blood monocytes/100 leukocytes 11 % 0-12 Automated blood eosinophils/100 leukocytes 4 % 0-10 Automated blood basophils/100 leukocytes 1 % 0-10 Blood neutrophils automated count (number/volume) 5.1 10*3 1.8-7.8 Blood lymphocytes automated count (number/volume) 1.8 10*3 1.0-4.0 Blood monocytes automated count (number/volume) 0.9 10*3 0.0-1.0 Automated eosinophil count 0.3 10*3/uL 0.0-0.3 Automated blood basophil count (count/volume) 0.0 10*3/uL 0.0-0.1 PT panel in platelet poor plasma by coagulation assay - 02/13/18 11:58 Prothrombin time (PT) in platelet poor plasma by coagulation assay 13.4 s 12.2-14.7 INR in platelet poor plasma or blood by coagulation assay 1.0 0.8-1.4 Activated partial thromboplastin time (aPTT) in platelet poor plasma bycoagulation assay - 02/13/18 11:58 Activated partial thromboplastin time (aPTT) in platelet poor plasma bycoagulation assay 26 s 24-35 Comprehensive metabolic panel - 02/13/18 11:58 Serum or plasma sodium measurement (moles/volume) 136 mmol/L 135-145 Serum or plasma potassium measurement (moles/volume) 4.6 mmol/L 3.6-5.0 Serum or plasma chloride measurement (moles/volume) 105 mmol/L 98-107 Carbon dioxide 20 mmol/L 21-32 Serum or plasma anion gap determination (moles/volume) 11 mmol/L 5-14 Serum or plasma urea nitrogen measurement (mass/volume) 22 mg/dL 7-18 Serum or plasma creatinine measurement (mass/volume) 1.29 mg/dL 0.60-1.30 Serum or plasma urea nitrogen/creatinine mass ratio 17 NRG Serum or plasma creatinine measurement with calculation of estimated glomerular filtration rate 54 NRG Serum or plasma glucose measurement (mass/volume) 129 mg/dL 70-105 Serum or plasma calcium measurement (mass/volume) 9.7 mg/dL 8.5-10.1 Serum or plasma total bilirubin measurement (mass/volume) 0.8 mg/dL 0.1-1.0 Serum or plasma alkaline phosphatase measurement (enzymatic activity/volume) 119 U/L 40-136 Serum or plasma aspartate aminotransferase measurement (enzymatic activity/ volume) 22 U/L 5-34 Serum or plasma alanine aminotransferase measurement (enzymatic activity/volume ) 14 U/L 0-55 Serum or plasma protein measurement (mass/volume) 7.2 g/dL 6.4-8.2 Serum or plasma albumin measurement (mass/volume) 4.5 g/dL 3.2-4.5 CALCIUM CORRECTED 9.3 mg/dL 8.5-10.1 Magnesium - 02/13/18 11:58 Magnesium 2.3 mg/dL 1.8-2.4 Serum or plasma troponin i.cardiac measurement (mass/volume) - 02/13/18 11:58 Serum or plasma troponin i.cardiac measurement (mass/volume) 1.06 ng /mL <0.30 Myoglobin, serum - 02/13/18 11:58 Myoglobin, serum 72.3 ng/mL 10.0-92.0 THYROID STIMULATING HORMONE - 02/13/18 11:58 THYROID STIMULATING HORMONE 1.89 u[iU]/mL 0.35-4.94 Serum or plasma thyroxine (T4) free measurement (mass/volume) - 02/13/18 11:58 Serum or plasma thyroxine (T4) free measurement (mass/volume) 0.97 ng/dL 0.70-1.48 Serum or plasma troponin i.cardiac measurement (mass/volume) - 02/13/18 17:52 Serum or plasma troponin i.cardiac measurement (mass/volume) 1.21 ng /mL <0.30 Complete blood count (CBC) with automated white blood cell (WBC) differential - 02/14/18 03:44 Blood leukocytes automated count (number/volume) 8.3 10*3/uL 4.3-11.0 Blood erythrocytes automated count (number/volume) 3.86 10*6/uL 4.35-5.85 Venous blood hemoglobin measurement (mass/volume) 13.6 g/dL 13.3-17.7 Blood hematocrit (volume fraction) 40 % 40-54 Automated erythrocyte mean corpuscular volume 103 [foz_us] 80-99 Automated erythrocyte mean corpuscular hemoglobin (mass per erythrocyte) 35 pg 25-34 Automated erythrocyte mean corpuscular hemoglobin concentration measurement ( mass/volume) 34 g/dL 32-36 Automated erythrocyte distribution width ratio 14.0 % 10.0-14.5 Automated blood platelet count (count/volume) 192 10*3/uL 130-400 Automated blood platelet mean volume measurement 9.4 [foz_us] 7.4-10.4 Automated blood neutrophils/100 leukocytes 58 % 42-75 Automated blood lymphocytes/100 leukocytes 26 % 12-44 Blood monocytes/100 leukocytes 11 % 0-12 Automated blood eosinophils/100 leukocytes 5 % 0-10 Automated blood basophils/100 leukocytes 1 % 0-10 Blood neutrophils automated count (number/volume) 4.9 10*3 1.8-7.8 Blood lymphocytes automated count (number/volume) 2.2 10*3 1.0-4.0 Blood monocytes automated count (number/volume) 0.9 10*3 0.0-1.0 Automated eosinophil count 0.4 10*3/uL 0.0-0.3 Automated blood basophil count (count/volume) 0.0 10*3/uL 0.0-0.1 Whole blood basic metabolic panel - 02/14/18 03:44 Serum or plasma sodium measurement (moles/volume) 137 mmol/L 135-145 Serum or plasma potassium measurement (moles/volume) 4.7 mmol/L 3.6-5.0 Serum or plasma chloride measurement (moles/volume) 108 mmol/L 98-107 Carbon dioxide 20 mmol/L 21-32 Serum or plasma anion gap determination (moles/volume) 9 mmol/L 5-14 Serum or plasma urea nitrogen measurement (mass/volume) 19 mg/dL 7-18 Serum or plasma creatinine measurement (mass/volume) 1.23 mg/dL 0.60-1.30 Serum or plasma urea nitrogen/creatinine mass ratio 15 NRG Serum or plasma creatinine measurement with calculation of estimated glomerular filtration rate 57 NRG Serum or plasma glucose measurement (mass/volume) 103 mg/dL 70-105 Serum or plasma calcium measurement (mass/volume) 9.0 mg/dL 8.5-10.1 Serum or plasma phosphate measurement (mass/volume) - 02/14/18 03:44 Serum or plasma phosphate measurement (mass/volume) 3.0 mg/dL 2.3-4.7 Magnesium - 02/14/18 03:44 Magnesium 2.1 mg/dL 1.8-2.4 Lipid 1996 panel - 02/14/18 03:44 Serum or plasma triglyceride measurement (mass/volume) 165 mg/dL <150 Serum or plasma cholesterol measurement (mass/volume) 116 mg/dL < 200 Serum or plasma cholesterol in HDL measurement (mass/volume) 28 mg/ dL 40-60 Cholesterol in LDL [mass/volume] in serum or plasma by direct assay 61 mg/dL 1-129 Serum or plasma cholesterol in VLDL measurement (mass/volume) 33 mg/ dL 5-40 Complete blood count (CBC) with automated white blood cell (WBC) differential - 02/15/18 03:30 Blood leukocytes automated count (number/volume) 8.1 10*3/uL 4.3-11.0 Blood erythrocytes automated count (number/volume) 3.97 10*6/uL 4.35-5.85 Venous blood hemoglobin measurement (mass/volume) 14.0 g/dL 13.3-17.7 Blood hematocrit (volume fraction) 40 % 40-54 Automated erythrocyte mean corpuscular volume 102 [foz_us] 80-99 Automated erythrocyte mean corpuscular hemoglobin (mass per erythrocyte) 35 pg 25-34 Automated erythrocyte mean corpuscular hemoglobin concentration measurement ( mass/volume) 35 g/dL 32-36 Automated erythrocyte distribution width ratio 13.6 % 10.0-14.5 Automated blood platelet count (count/volume) 187 10*3/uL 130-400 Automated blood platelet mean volume measurement 9.4 [foz_us] 7.4-10.4 Automated blood neutrophils/100 leukocytes 59 % 42-75 Automated blood lymphocytes/100 leukocytes 26 % 12-44 Blood monocytes/100 leukocytes 11 % 0-12 Automated blood eosinophils/100 leukocytes 4 % 0-10 Automated blood basophils/100 leukocytes 1 % 0-10 Blood neutrophils automated count (number/volume) 4.7 10*3 1.8-7.8 Blood lymphocytes automated count (number/volume) 2.1 10*3 1.0-4.0 Blood monocytes automated count (number/volume) 0.9 10*3 0.0-1.0 Automated eosinophil count 0.3 10*3/uL 0.0-0.3 Automated blood basophil count (count/volume) 0.0 10*3/uL 0.0-0.1 Whole blood basic metabolic panel - 02/15/18 03:30 Serum or plasma sodium measurement (moles/volume) 139 mmol/L 135-145 Serum or plasma potassium measurement (moles/volume) 4.2 mmol/L 3.6-5.0 Serum or plasma chloride measurement (moles/volume) 109 mmol/L 98-107 Carbon dioxide 19 mmol/L 21-32 Serum or plasma anion gap determination (moles/volume) 11 mmol/L 5-14 Serum or plasma urea nitrogen measurement (mass/volume) 14 mg/dL 7-18 Serum or plasma creatinine measurement (mass/volume) 1.03 mg/dL 0.60-1.30 Serum or plasma urea nitrogen/creatinine mass ratio 14 NRG Serum or plasma creatinine measurement with calculation of estimated glomerular filtration rate > NRG Serum or plasma glucose measurement (mass/volume) 104 mg/dL 70-105 Serum or plasma calcium measurement (mass/volume) 9.6 mg/dL 8.5-10.1 Serum or plasma phosphate measurement (mass/volume) - 02/15/18 03:30 Serum or plasma phosphate measurement (mass/volume) 3.0 mg/dL 2.3-4.7 Magnesium - 02/15/18 03:30 Magnesium 2.0 mg/dL 1.8-2.4 Complete blood count (CBC) with automated white blood cell (WBC) differential - 02/16/18 03:23 Blood leukocytes automated count (number/volume) 9.5 10*3/uL 4.3-11.0 Blood erythrocytes automated count (number/volume) 3.87 10*6/uL 4.35-5.85 Venous blood hemoglobin measurement (mass/volume) 13.9 g/dL 13.3-17.7 Blood hematocrit (volume fraction) 39 % 40-54 Automated erythrocyte mean corpuscular volume 102 [foz_us] 80-99 Automated erythrocyte mean corpuscular hemoglobin (mass per erythrocyte) 36 pg 25-34 Automated erythrocyte mean corpuscular hemoglobin concentration measurement ( mass/volume) 35 g/dL 32-36 Automated erythrocyte distribution width ratio 13.6 % 10.0-14.5 Automated blood platelet count (count/volume) 199 10*3/uL 130-400 Automated blood platelet mean volume measurement 9.4 [foz_us] 7.4-10.4 Automated blood neutrophils/100 leukocytes 61 % 42-75 Automated blood lymphocytes/100 leukocytes 23 % 12-44 Blood monocytes/100 leukocytes 10 % 0-12 Automated blood eosinophils/100 leukocytes 5 % 0-10 Automated blood basophils/100 leukocytes 1 % 0-10 Blood neutrophils automated count (number/volume) 5.8 10*3 1.8-7.8 Blood lymphocytes automated count (number/volume) 2.2 10*3 1.0-4.0 Blood monocytes automated count (number/volume) 1.0 10*3 0.0-1.0 Automated eosinophil count 0.5 10*3/uL 0.0-0.3 Automated blood basophil count (count/volume) 0.1 10*3/uL 0.0-0.1 Whole blood basic metabolic panel - 02/16/18 03:23 Serum or plasma sodium measurement (moles/volume) 139 mmol/L 135-145 Serum or plasma potassium measurement (moles/volume) 4.2 mmol/L 3.6-5.0 Serum or plasma chloride measurement (moles/volume) 108 mmol/L 98-107 Carbon dioxide 21 mmol/L 21-32 Serum or plasma anion gap determination (moles/volume) 10 mmol/L 5-14 Serum or plasma urea nitrogen measurement (mass/volume) 16 mg/dL 7-18 Serum or plasma creatinine measurement (mass/volume) 1.07 mg/dL 0.60-1.30 Serum or plasma urea nitrogen/creatinine mass ratio 15 NRG Serum or plasma creatinine measurement with calculation of estimated glomerular filtration rate > NRG Serum or plasma glucose measurement (mass/volume) 104 mg/dL 70-105 Serum or plasma calcium measurement (mass/volume) 9.5 mg/dL 8.5-10.1 Serum or plasma phosphate measurement (mass/volume) - 02/16/18 03:23 Serum or plasma phosphate measurement (mass/volume) 3.3 mg/dL 2.3-4.7 Magnesium - 02/16/18 03:23 Magnesium 1.9 mg/dL 1.8-2.4 Complete blood count (CBC) with automated white blood cell (WBC) differential - 02/17/18 03:55 Blood leukocytes automated count (number/volume) 12.9 10*3/uL 4.3-11.0 Blood erythrocytes automated count (number/volume) 4.07 10*6/uL 4.35-5.85 Venous blood hemoglobin measurement (mass/volume) 14.2 g/dL 13.3-17.7 Blood hematocrit (volume fraction) 41 % 40-54 Automated erythrocyte mean corpuscular volume 101 [foz_us] 80-99 Automated erythrocyte mean corpuscular hemoglobin (mass per erythrocyte) 35 pg 25-34 Automated erythrocyte mean corpuscular hemoglobin concentration measurement ( mass/volume) 35 g/dL 32-36 Automated erythrocyte distribution width ratio 13.5 % 10.0-14.5 Automated blood platelet count (count/volume) 198 10*3/uL 130-400 Automated blood platelet mean volume measurement 9.4 [foz_us] 7.4-10.4 Automated blood neutrophils/100 leukocytes 79 % 42-75 Automated blood lymphocytes/100 leukocytes 10 % 12-44 Blood monocytes/100 leukocytes 8 % 0-12 Automated blood eosinophils/100 leukocytes 2 % 0-10 Automated blood basophils/100 leukocytes 0 % 0-10 Blood neutrophils automated count (number/volume) 10.2 10*3 1.8-7.8 Blood lymphocytes automated count (number/volume) 1.3 10*3 1.0-4.0 Blood monocytes automated count (number/volume) 1.1 10*3 0.0-1.0 Automated eosinophil count 0.3 10*3/uL 0.0-0.3 Automated blood basophil count (count/volume) 0.0 10*3/uL 0.0-0.1 Whole blood basic metabolic panel - 02/17/18 03:55 Serum or plasma sodium measurement (moles/volume) 138 mmol/L 135-145 Serum or plasma potassium measurement (moles/volume) 4.2 mmol/L 3.6-5.0 Serum or plasma chloride measurement (moles/volume) 106 mmol/L 98-107 Carbon dioxide 20 mmol/L 21-32 Serum or plasma anion gap determination (moles/volume) 12 mmol/L 5-14 Serum or plasma urea nitrogen measurement (mass/volume) 13 mg/dL 7-18 Serum or plasma creatinine measurement (mass/volume) 1.10 mg/dL 0.60-1.30 Serum or plasma urea nitrogen/creatinine mass ratio 12 NRG Serum or plasma creatinine measurement with calculation of estimated glomerular filtration rate > NRG Serum or plasma glucose measurement (mass/volume) 107 mg/dL 70-105 Serum or plasma calcium measurement (mass/volume) 9.4 mg/dL 8.5-10.1 Serum or plasma phosphate measurement (mass/volume) - 02/17/18 03:55 Serum or plasma phosphate measurement (mass/volume) 3.0 mg/dL 2.3-4.7 Magnesium - 02/17/18 03:55 Magnesium 1.9 mg/dL 1.8-2.4 Encounters ACCT No. Visit Date/Time Discharge Status Pt. Type Provider Facility Loc./Unit Complaint [id number] 02/13/2018 13:38:00 02/17/2018 10:50:00 DIS Outpatient NOEMI CASTANEDA, ELAINE Chaidez Via [facility] ICU A-FLUTTER W/RVR ELEVATED TROPONIN [id number] 10/06/2017 11:08:00 10/06/2017 23:59:59 CLS Outpatient MARVIN GROVE MD [facility] RAD RT SHOULDER PAIN [id number] 09/23/2017 13:06:00 09/23/2017 23:59:59 CLS Outpatient LINDSAY SIMMS [facility] ONC [id number] 09/10/2017 10:58:00 09/10/2017 23:59:59 CLS Outpatient FARRUKH SCOTT MD [facility] RAD BILATERAL HIP PAIN [id number] 08/11/2017 10:24:00 08/11/2017 23:59:59 CLS Outpatient FARRUKH SCOTT MD [facility] RAD COPD [id number] 08/09/2017 02:24:00 08/09/2017 03:26:00 DIS Emergency JANN YADAV MD [facility] ER RT SHOULDER PAIN [id number] 01/03/2017 10:01:00 01/03/2017 23:59:59 CLS Outpatient DEAN SHI APRN Via [facility] RAD R91.1 LUNG NODULE [id number] 12/06/2016 13:41:00 12/06/2016 23:59:59 CLS Outpatient LIANA ARIAS [facility] CARD CAD I25.10 [id number] 11/25/2016 09:01:00 11/25/2016 23:59:59 CLS Outpatient LINDSAY SIMMS [facility] ONC [id number] 10/09/2016 10:22:00 10/18/2016 11:00:00 DIS Outpatient KAYLEY LAMBERT MD [facility] CR STABLE ANGINA [id number] 09/18/2016 11:28:00 10/06/2016 00:01:00 DIS Outpatient KAYLEY LAMBERT MD [facility] CR STABLE ANGINA [id number] 08/21/2016 15:52:00 08/21/2016 23:59:59 CLS Outpatient DEAN SHI APRN [facility] RT R06.00 DYSPNEA [id number] 08/14/2016 11:46:00 08/14/2016 23:59:59 CLS Outpatient KAYLEY LAMBERT MD [facility] CARD I25.10 [id number] 07/18/2016 10:57:00 07/18/2016 23:59:59 CLS Emergency JANN YADAV MD [facility] ER CHEST PAIN [id number] 04/17/2016 07:52:00 04/19/2016 09:30:00 DIS Outpatient KAYLEY LAMBERT MD [facility] CATH CAD,HTN [id number] 02/13/2016 12:57:00 02/13/2016 23:59:59 CLS Outpatient LINDSAY SIMMS [facility] ONC [id number] 01/15/2016 12:51:00 01/15/2016 23:59:59 CLS Outpatient LINDSAY SIMMS [facility] ONC [id number] 11/22/2015 07:47:00 11/22/2015 23:59:59 CLS Outpatient LIANA ARIAS [facility] CARD CAD,CAROTID STENOSIS, HTN [id number] 10/19/2015 08:41:00 10/19/2015 23:59:59 CLS Outpatient LIANA ARIAS [facility] CARD CAD,CAROTID STENOSIS,HTN [id number] 01/12/2015 12:57:00 01/12/2015 23:59:59 CLS Outpatient LINDSAY SIMMS [facility] ONC [id number] 04/18/2014 15:32:00 04/18/2014 23:59:59 CLS Outpatient FE HAMMOND GÉNESIS Ulices [facility] RT SNORING EXCESSIVE DAYTIME SLEEPINESS HTN DYSPNEA [id number] 03/07/2014 08:23:00 03/07/2014 23:59:59 CLS Outpatient KAYLEY LAMBERT MD [facility] CARD CAD,KATELIN,HTN [id number] 03/02/2014 10:07:00 03/02/2014 23:59:59 CLS Outpatient KAYLEY LAMBERT MD [facility] CARD CAD,KATELIN,HTN [id number] 01/13/2014 14:18:00 01/13/2014 14:46:00 DIS Emergency MELIZA DELGADO APRN [facility] ER FINGER LACERATION [id number] 01/12/2014 12:46:00 01/12/2014 23:59:59 CLS Outpatient ANTHONY CASTRO [facility] ONC [id number] 11/30/2013 10:27:00 11/30/2013 13:02:00 DIS Emergency RADHA MACKEY MD [facility] ER LIGHTHEADED/SYNCOPE [id number] 09/24/2013 14:00:00 10/07/2013 17:00:00 DIS Outpatient FESTUS AZUL [facility] REHAB L LEG AND THIGH PAIN [id number] 08/24/2013 08:58:00 08/24/2013 23:59:59 CLS Outpatient KAYLEY LAMBERT MD [facility] RAD CAD,HTN, [id number] 02/09/2013 11:36:00 02/09/2013 23:59:59 CLS Outpatient LIANA ARIAS [facility] RAD CAD DIZZINESS ,HTN, [id number] 02/05/2013 09:06:00 02/05/2013 23:59:59 CLS Outpatient KAYLEY LAMBERT MD [facility] CARD CAD,DIZZINESS,HTN [id number] 01/11/2013 13:07:00 01/11/2013 23:59:59 CLS Outpatient LINDSAY SIMMS N [facility] ONC [id number] 12/25/2012 07:30:00 12/25/2012 12:00:00 DIS Outpatient CASTRO DPELO Elena [facility] SDC HAMMERTOE 3RD AND 4TH RIGHT [id number] 12/22/2012 09:51:00 12/22/2012 23:59:59 CLS Outpatient CASTRO DPELO Elena [facility] PREOP HAMMERTOES 3RD AND 4TH RIGHT [id number] 03/21/2018 21:00:00 PEN Preadmit FARRUKH SCOTT MD [facility] SLEEP HYPERSOMNIA [id number] 11/26/2017 08:04:00 Document Registration [id number] 06/06/2014 11:02:00 Document Registration [id number] 03/01/2014 09:33:00 Document Registration [id number] 03/01/2014 09:33:00 Document Registration [id number] 07/16/2012 13:47:00 Document Registration [id number] 05/28/2012 06:00:00 Document Registration [id number] 05/11/2012 12:00:00 Document Registration [id number] 01/13/2012 13:09:00 Document Registration [id number] 10/21/2011 12:30:00 Document Registration [id number] 01/14/2011 13:33:00 Document Registration [id number] 09/12/2010 10:10:00 Document Registration [id number] 12/14/2009 08:48:00 Document Registration [id number] 10/30/2009 07:03:00 Document Registration [id number] 03/15/2009 00:00:00 Document Registration [id number] 12/27/2008 12:52:00 Document Registration [id number] 12/14/2008 09:32:00 Document Registration [id number] 01/12/2015 14:15:51 ACT Document Registration [id number] 02/04/2017 13:59:03 02/04/2017 23:59:59 [facility] Outpatient
[2018-03-16] MEDS ORDERED: fentaNYL INJECTION 100 MCG/2 ML AMP ONE (11:16)
[2018-03-16] MEDS ORDERED: proPOfol 200 MG/20 ML (DIPRIVAN) VIAL IV ONE (11:16)
[2018-03-16] MEDS ORDERED: MIDAZOLAM 2 MG/2 ML (VERSED) VIAL ONE (11:16)
[2018-03-16] MEDS ORDERED: ONDANSETRON 4 MG/2 ML (SDV) Z0FRAN ONE (11:16)
[2018-03-16] MEDS ORDERED: SEVOFLURANE (ULTANE) 15 ML INHAL SOLN ONE (11:17)
[2018-03-16] MEDS ORDERED: GLYCOPYRROLATE 0.2 MG/ML (ROBINUL) 2 ML VIAL ONE (11:47)
[2018-03-16] MEDS ORDERED: PHENYLEPHRINE 100 MCG/ML 10 ML (ANESTHESIA) SYR ONE (11:48)
[2018-03-16] MEDS ORDERED: DEXAMETHASONE 10 MG/ML (DECADRON) 1 ML VIAL ONE (11:52)
[2018-03-16] MEDS ORDERED: NS (IVPB) 100 ML ONE (12:07)
[2018-03-16] MEDS ORDERED: PHENYLEPHRINE INJ 10 MG/ML (NEO-SYNEPHRINE 1%) ONE (12:07)
--- NOTE | 2018-03-16 13:03 | Electrophysiology Procedure ---
EP Procedure DATE OF SERVICE:03/16/18 REFERRING PHYSICIAN: Dr. Subramanian. CARDIAC LITIGATION ASSISTANT: Chad Martines MD, [facility], [facility]. INDICATION: Typical atrial flutter - CTI dependent. PREOPERATIVE DIAGNOSIS: Typical atrial flutter - CTI dependent. POSTOPERATIVE DIAGNOSES: Successful cavotricuspid isthmus ablation HISTORY: This is a 77-year-old gentleman with typical atrial flutter. The patient is planned for comprehensive EP study and ablation. PROCEDURE PERFORMED: 1. Comprehensive EP study with induction. 2. Fluoroscopy. 3. CS pacing. 4. Drug infusion. 5. Ablation of typical atrial flutter. 6. Comprehensive 3D mapping with the carto system. COMPLICATION: None. ESTIMATED BLOOD LOSS: 10 mL. CONTRAST USED: None. FLUOROSCOPY TIME: 7.8 minutes. FLUOROSCOPY DOSE: 250 mgy. SPECIMENS: None. ANESTHESIA: Done by our anesthesia colleagues. ANTICOAGULATION: On oral anti-coagulation. PROCEDURE IN DETAIL: After informed consent was taken, the patient was brought to the EP lab. Anesthesia was provided by our anesthesia colleagues. The patient was draped and prepped in the usual sterile fashion. The patient presented to the EP lab in sinus rhythm. Access was gained in the right femoral vein with a 6-Guamanian and an 8-Guamanian sheath. Left access in left femoral vein was gained with 5-Guamanian and 6-Guamanian sheath respectively. High right atrial catheter was an ablation catheter, right ventricular catheter was placed, his catheter and the CS catheter were also placed. A comprehensive EP study was done including a CS pacing.No evidence of dual AV monico physiology. Concentric atrial activation. Typical atrial flutter was not induced with rapid atrial pacing with and without Isuprel infusion. A 3D electroanatomic mapping was donewith the carto system. Ablation was performed in the cavotricuspid isthmus.CS pacing and pacing from the ablation catheter at different positions on the lateral side of the ablation line were used to verify bidirectional block. We then waited for 30 minutes and rechecked and confirmed bidirectional block.Isuprel was given post-procedure, however, we could not induce atrial flutter.The patienttolerated the procedure well and did not have any complication. The patientleft the lab in sinus rhythm. Total ablation time was 9 minutes and 14 seconds. MEASUREMENTS/EP STUDY: AA interval 790 ms. AH interval 81 ms. HV interval 50 ms. NE interval is 269 ms. QRS duration 99 ms. QT interval 430 ms. R-R interval 849 ms. AV Wenckebach at 430 ms. Retrograde Wenckebach at 620 ms. Atrial ERP was 600/230 ms. PLAN: The patient will be observed overnight and will be discharged home tomorrow with precise followup instructions. Chad Martines MD, FHRS, CCDS Cardiac Electrophysiology Ulices MARTINES MD Mar 16, 2018 13:03
[2018-03-16] MEDS ORDERED: PATIENT MAY USE OWN MEDS, ALL PO SCH (13:15)
--- NOTE | 2018-03-16 13:52 | Anesthesia-General Post-Op ---
General Patient Condition Mental Status/LOC: Same as Preop Cardiovascular: Satisfactory Nausea/Vomiting: Absent Respiratory: Satisfactory Pain: Controlled Complications: Absent Post Op Complications Complications None Follow Up Care/Instructions Patient Instructions None needed. Anesthesia/Patient Condition Patient Condition Patient is doing well, no complaints, stable vital signs, no apparent adverse anesthesia problems. No complications reported per nursing. AIRAM PATRICIA CRNA Mar 16, 2018 13:52
[2018-03-16] MEDS ORDERED: morphine INJ 10 MG/ML 1ML (SYR OR VIAL) IVP ONE (14:00)
[2018-03-16] MEDS: ONDANSETRON 4 MG/2 ML (SDV) Z0FRAN IVP PRN ×2 (15:44→15:45)
[2018-03-16] MEDS: APIXABAN 5 MG (ELIQUIS) TABLET PO SCH (15:46)
[2018-03-17 00:11] VITALS: BP 113/65
[2018-03-17 04:11] VITALS: BP 108/61
[2018-03-17 06:36] LABS: HEMOGLOBIN 12.7 G/DL (13.3-17.7); MEAN PLATELET VOLUME 9.1 FL (7.4-10.4); RED BLOOD COUNT 3.6 10^6/uL (4.35-5.85); WHITE BLOOD COUNT 12.8 10^3/uL (4.3-11.0)
[2018-03-17 07:05] LABS: BUN/CREATININE RATIO 17; CALCIUM 9.3 MG/DL (8.5-10.1); CARBON DIOXIDE 22 MMOL/L (21-32); CHLORIDE 106 MMOL/L (98-107); CREATININE SERUM 1.11 MG/DL (0.60-1.30); GFR ESTIMATED > 60; GLUCOSE 137 MG/DL (70-105); POTASSIUM 5.1 MMOL/L (3.6-5.0); SODIUM 136 MMOL/L (135-145)
[2018-03-17 08:00] VITALS: BP 115/58
[2018-03-17] MEDS ORDERED: ASPIRIN E.C. 81 MG (ECOTRIN) TAB PO SCH (09:00)
[2018-03-17] MEDS: APIXABAN 5 MG (ELIQUIS) TABLET PO SCH (10:01)
[2018-03-17 10:30] VITALS: BP 115/58
--- NOTE | 2018-03-17 11:34 | Cardiology Discharge Summary ---
Diagnosis/Chief Complaint Date of Admission 03/16/2018 Date of Discharge 03/17/2018 Admission Diagnosis Typical atrial flutter Final/Discharge Diagnosis Successful typical atrial flutter ablation Chief Complaint/HPI Chief Complaint/HPI This is a 77-year-old gentleman with history of CAD. He presents with typical atrial flutter. Typical atrial flutter ablation is recommended. Discharge Summary Procedures Successful typical atrial flutter ablation. Discharge Physical Examination Normal cardiovascular and respiratory examination. Hospital Course Unremarkable. Pending Labs Laboratory Tests 03/17/18 06:27: White Blood Count 12.8, Red Blood Count 3.60, Hemoglobin 12.7, Hematocrit 37, Mean Corpuscular Volume 103, Mean Corpuscular Hemoglobin 35, Mean Corpuscular Hemoglobin Concent 34, Red Cell Distribution Width 14.0, Platelet Count 159, Mean Platelet Volume 9.1, Sodium Level 136, Potassium Level 5.1, Chloride Level 106, Carbon Dioxide Level 22, Anion Gap 8, Blood Urea Nitrogen 19, Creatinine 1.11, Estimat Glomerular Filtration Rate > 60, BUN/Creatinine Ratio 17, Glucose Level 137, Calcium Level 9.3 Discussion & Recommendations Discussion Discharge instructions discussed at length with the patient. Discharge took over 30 minutes to complete. Follow up appt.: Dr. Martines in 3-4 weeks. Dicharge Diet: Regular Diet Home Medications Reviewed patient Home Medication Reconciliation performed by pharmacy medication reconciliations tool technician and/or nursing. Patients Allergies have been reviewed. Discharge Home Medications: Reviewed and agree with Discharge Medication list on patient's Discharge Instruction sheet Condition at discharge Stable. Instructions to patient/family Discussed at length with the patient. Ulices MARTINES MD Mar 17, 2018 11:34
[2018-03-18] MEDS ORDERED: CYCL10TA9 PO (11:07)
[2018-03-18] MEDS ORDERED: PRD20T PO (11:07)
[2018-03-18] MEDS ORDERED: OXYC1TAB87 PO (11:07)
[2018-03-18] MEDS ORDERED: RT-ALBUINH IH (11:07)
== END 2018-03-17 10:35 | disposition home or self-care (01) ==
LOC: CATH 08:58 → ICU 15:00 → 4TH 18:20 → CATH 03-17 10:35
PROVIDERS: ATTEND Internal Medicine Interventional Cardiology
DX: I48.3 Typical atrial flutter (principal); I25.10 Atherosclerotic heart disease of native coronary artery without angina pectoris; E78.5 Hyperlipidemia, unspecified; I10 Essential (primary) hypertension; I48.0 Paroxysmal atrial fibrillation; Z79.01 Long term (current) use of anticoagulants; Z79.899 Other long term (current) drug therapy; Z79.82 Long term (current) use of aspirin; Z11.2 Encounter for screening for other bacterial diseases; Z95.1 Presence of aortocoronary bypass graft; F17.210 Nicotine dependence, cigarettes, uncomplicated; Z95.5 Presence of coronary angioplasty implant and graft; K21.9 Gastro-esophageal reflux disease without esophagitis; Z85.46 Personal history of malignant neoplasm of prostate; Z85.820 Personal history of malignant melanoma of skin
CPT/HCPCS: 36415; 80048; 80053; 85027; 85610; 85730; 87081; 93005; 93613; 93621; 93623; 93653

== ENCOUNTER 2018-03-18 05:18 | Emergency (ER) | payer MEDICARE, BC ==
[~2018-03-18] VITALS: Ht 182.9 cm; Wt 96.6 kg
[~2018-03-18 05:18] MED LIST changes: +VITA-189 PO
[2018-03-18] MEDS ORDERED: morphine INJ 10 MG/ML 1ML (SYR OR VIAL) IV STA (05:27)
[2018-03-18] MEDS ORDERED: NITROGLYCERIN 0.4 MG SL TABS BTL 25'S SL PRN (05:30)
[2018-03-18] MEDS ORDERED: ASPIRIN 81 MG CHEW (CHILDREN'S ASA) PO ONE (05:30)
--- NOTE | 2018-03-18 05:39 | ED Chest Pain ---
General Chief Complaint: Chest Pain Stated Complaint: CHEST PAIN Source: patient, family Exam Limitations: no limitations (JANN YADAV MD) History of Present Illness Date Seen by Provider: Mar 18, 2018 Time Seen by Provider: 05:20 Initial Comments Here with report of central chest pain that goes up to the clavicle on the left and into the neck bilateral and is moderate in intensity. Onset yesterday but worsened overnight. Worse with deep breathing and better with rest. Denies nausea or vomiting. Denies sweating. Did have a heart ablation on the third and was discharged yesterday. Ablation was for typical atrial fibrillation. Timing/Duration: 24 hours, getting worse Severity/Quality: moderate, aching Location: central Radiation: neck, shoulders (left) Activities at Onset: none Prior CP/Workup: cardiac cath, echocardiography, stress test Modifying Factors: worse with breathing; improves with rest ASA po POACHER OPERATOR: No NTG SL POACHER OPERATOR: No Associated Symptoms: No abdominal pain, No back pain, No nausea/vomiting, No shortness of breath, No weakness (JANN YADAV MD) Allergies and Home Medications Allergies Coded Allergies: No Known Drug Allergies (Verified , 02/23/08) Home Medications Albuterol Sulfate 1 Puff Puff, 2 PUFF IH Q4H 1 PUFF = 90 MCG Prescribed by: RADHA MELISSA on 03/18/18 1107 Allopurinol 100 Mg Tablet, 200 MG PO DAILY, (Reported) TAKES 2 (100MG) TABLETS Allopurinol 100 Mg Tablet, 100 MG PO HS, (Reported) Apixaban 5 Mg Tablet, 5 MG PO DAILY, (Reported) Aspirin 81 Mg Tablet.dr, 81 MG PO HS, (Reported) Atorvastatin Calcium 40 Mg Tablet, 40 MG PO HS, (Reported) Calcium Carbonate/Vitamin D3 1 Each Tablet, 1 TAB PO HS, (Reported) Cyclobenzaprine HCl 10 Mg Tablet, 10 MG PO TID PRN for SPASMS Prescribed by: RADHA MELISSA on 03/18/18 1107 Doxazosin Mesylate 4 Mg Tablet, 4 MG PO HS, (Reported) Flaxseed Oil 1,000 Mg Capsule, 3,500 MG PO HS, (Reported) Hydrocodone/Acetaminophen 1 Each Tablet, 1-2 TAB PO Q4H PRN for PAIN-MODERATE, ( Reported) Levothyroxine Sodium 50 Mcg Tablet, 50 MCG PO DAILY, (Reported) Lisinopril 5 Mg Tablet, 2.5 MG PO BID, (Reported) TAKES 1/2 (5MG) TABLET Magnesium Oxide 400 Mg Tablet, 400 MG PO HS, (Reported) Metoprolol Succinate 25 Mg Tab.er.24h, 25 MG PO DAILY, (Reported) Multivitamin 1 Each Tablet, 1.5 EACH PO DAILY, (Reported) Multivitamin 1 Each Tablet, 0.5 EACH PO HS, (Reported) Oxycodone HCl/Acetaminophen 1 Each Tablet, 1-2 EACH PO Q4H PRN for PAIN-MODERATE Prescribed by: RADHA MELISSA on 03/18/18 1107 Pantoprazole Sodium 40 Mg Tablet.dr, 40 MG PO DAILY, (Reported) Potassium Gluconate 99 Mg Tablet, 99 MG PO DAILY, (Reported) Prednisone 20 Mg Tab, 1 TAB PO DAILY Prescribed by: RADHA MELISSA on 03/18/18 1107 Ranolazine 1,000 Mg Tab.er.12h, 1,000 MG PO BID, (Reported) Vitamin B Complex 1 Each Tablet, 1 EACH PO HS, (Reported) Patient Home Medication List Home Medication List Reviewed: Yes (JANN YADAV MD) Review of Systems Review of Systems Constitutional: see HPI; No chills, No fever EENTM: No Symptoms Reported Respiratory: See HPI; Denies Cough, Denies Wheezing Cardiovascular: Chest Pain; Denies Edema, Denies Palpitations Gastrointestinal: Denies Nausea, Denies Vomiting Genitourinary: No Symptoms Reported Musculoskeletal: see HPI, muscle pain; No muscle cramps; neck pain Skin: no symptoms reported Psychiatric/Neurological: No Symptoms Reported Endocrine: No Symptoms Reported (JANN YADAV MD) All Other Systems Reviewed Negative Unless Noted: Yes (JANN YADAV MD) Past Twxcrvm-Qemlup-Wwsuwe Hx Past Med/Social Hx: Reviewed Nursing Past Med/Soc Hx (JANN YADAV MD) Patient Social History Alcohol Use: Denies Use Recreational Drug Use: No Smoking Status: Current Everyday Smoker Type Used: Cigarettes Recent Foreign Travel: No Contact w/Someone Who Travel: No Recent Hopitalizations: Yes (JANN YADAV MD) Immunizations Up To Date Tetanus Booster (TDap): More than 5yrs Date of Pneumonia Vaccine: Nov 12, 2016 Date of Influenza Vaccine: Feb 12, 2018 (JANN YADAV MD) Seasonal Allergies Seasonal Allergies: No (JANN YADAV MD) Past Medical History Surgeries: Yes (BACK SURGERY, HERNIA REPAIR) CABG, Coronary Stent, Orthopedic Respiratory: No Cardiac: Yes Atrial Fibrillation, Coronary Artery Disease, Hypertension Neurological: No Reproductive Disorders: No Prostate Problems Gastrointestinal: Yes Gastroesophageal Reflux Musculoskeletal: No Arthritis, Chronic Back Pain, Gout Endocrine: Yes Hypothyroidsim Cancer: No Prostate Psychosocial: No Integumentary: No Blood Disorders: No (JANN YADAV MD) Family Medical History Reviewed Nursing Family Hx (JANN AYDAV MD) Cardiovascular disease 19 MOTHER Myocardial infarction 19 FATHER No Pertinent Family Hx (JANN YADAV MD) Physical Exam Vital Signs Vital Signs - First Documented 03/18/18 05:20 Temp 97.8 Pulse 92 Resp 18 B/P (MAP) 133/79 (97) Pulse Ox 95 O2 Delivery Nasal Cannula O2 Flow Rate 2.0 (RADHA MACKEY MD) Vital Signs Capillary Refill : Less Than 3 Seconds (JANN YADAV MD) Height, Weight, BMI Height: 6'0.00" Weight: 213lbs. 0.0oz. 96.728441wh; 28.9 BMI Method:Stated General Appearance: WD/WN, Mild Distress HEENT: PERRL/EOMI, Pharynx Normal Neck: Non Tender, Supple Respiratory: Lungs Clear, Normal Breath Sounds Cardiovascular: Regular Rate, Rhythm, No Murmur Gastrointestinal: Non Tender, Soft Neurologic/Psychiatric: Alert, Oriented x3 Skin: Normal Color, Warm/Dry (JANN YADAV MD) Progress/Results/Core Measures Results/Orders Lab Results Laboratory Tests Test 03/18/18 05:50 03/18/18 09:55 Range/Units White Blood Count 14.4 H 4.3-11.0 10^3/uL Red Blood Count 3.57 L 4.35-5.85 10^6/uL Hemoglobin 12.8 L 13.3-17.7 G/DL Hematocrit 37 L 40-54 % Mean Corpuscular Volume 102 H 80-99 FL Mean Corpuscular Hemoglobin 36 H 25-34 PG Mean Corpuscular Hemoglobin Concent 35 32-36 G/DL Red Cell Distribution Width 14.3 10.0-14.5 % Platelet Count 148 130-400 10^3/uL Mean Platelet Volume 9.3 7.4-10.4 FL Neutrophils (%) (Auto) 78 H 42-75 % Lymphocytes (%) (Auto) 12 12-44 % Monocytes (%) (Auto) 10 0-12 % Eosinophils (%) (Auto) 0 0-10 % Basophils (%) (Auto) 0 0-10 % Neutrophils # (Auto) 11.2 H 1.8-7.8 X 10^3 Lymphocytes # (Auto) 1.7 1.0-4.0 X 10^3 Monocytes # (Auto) 1.5 H 0.0-1.0 X 10^3 Eosinophils # (Auto) 0.0 0.0-0.3 10^3/uL Basophils # (Auto) 0.0 0.0-0.1 10^3/uL Erythrocyte Sedimentation Rate 6 0-30 MM/HR Prothrombin Time 14.7 12.2-14.7 SEC INR Comment 1.1 0.8-1.4 Activated Partial Thromboplast Time 23 L 24-35 SEC Sodium Level 139 135-145 MMOL/L Potassium Level 4.6 3.6-5.0 MMOL/L Chloride Level 106 98-107 MMOL/L Carbon Dioxide Level 23 21-32 MMOL/L Anion Gap 10 5-14 MMOL/L Blood Urea Nitrogen 23 H 7-18 MG/DL Creatinine 1.10 0.60-1.30 MG/DL Estimat Glomerular Filtration Rate > 60 BUN/Creatinine Ratio 21 Glucose Level 101 70-105 MG/DL Calcium Level 9.1 8.5-10.1 MG/DL Corrected Calcium 9.0 8.5-10.1 MG/DL Magnesium Level 2.0 1.8-2.4 MG/DL Total Bilirubin 0.6 0.1-1.0 MG/DL Aspartate Amino Transf (AST/SGOT) 73 H 5-34 U/L Alanine Aminotransferase (ALT/SGPT) 24 0-55 U/L Alkaline Phosphatase 90 40-136 U/L Myoglobin 947.6 H 10.0-92.0 NG/ML Troponin I 0.81 *H 0.64 *H <0.30 NG/ML C-Reactive Protein High Sensitivity 0.34 0.00-0.50 MG/DL Total Protein 6.5 6.4-8.2 GM/DL Albumin 4.1 3.2-4.5 GM/DL (RADHA MACKEY MD) My Orders Orders - RADHA MACKEY MD Hs C Reactive Protein (03/18/18 07:19) Erythrocyte Sedimentation Rate (03/18/18 07:19) Ct Angio Chest W (03/18/18 07:19) Saline Lock/Iv-Start (03/18/18 07:19) Ns Iv 1000 Ml (Sodium Chloride 0.9%) (03/18/18 07:19) Iohexol Injection (Omnipaque 350 Mg/Ml 1 (03/18/18 07:45) Contrast Received (Contrast Received) (03/18/18 07:45) Ns (Ivpb) (Sodium Chloride 0.9%) (03/18/18 07:45) Troponin I (03/18/18 08:58) Albuterol/Ipra Inhalation Soln (Duoneb I (03/18/18 09:15) Svn Small Volume Nebulizer (03/18/18 09:13) Oxycodone/Apap 5/325mg Tablet (Percocet (03/18/18 11:15) (RADHA MACKEY MD) Medications Given in ED Current Medications Medications Dose Ordered Sig/Claudette Route Start Time Stop Time Status Last Admin Dose Admin Albuterol/ Ipratropium 3 ml ONCE ONCE INH 03/18/18 09:15 03/18/18 09:16 DC 03/18/18 09:30 3 ML Iohexol 125 ml ONCE ONCE IV 03/18/18 07:45 03/18/18 07:46 DC 03/18/18 07:58 125 ML Sodium Chloride 250 ml ONCE ONCE IV 03/18/18 07:45 03/18/18 07:46 DC 03/18/18 07:58 80 ML Sodium Chloride 1,000 ml @ 0 mls/hr Q0M ONCE IV 03/18/18 07:19 03/18/18 07:21 DC 03/18/18 07:22 1,000 MLS/HR (RADHA MACKEY MD) Vital Signs/I&O 12/5/18 03/18/18 03/18/18 03/18/18 05:20 05:20 05:20 05:40 Temp 97.8 97.8 Pulse 92 Resp 18 B/P (MAP) 133/79 (97) Pulse Ox 95 95 O2 Delivery Nasal Cannula Nasal Cannula Nasal Cannula O2 Flow Rate 2.0 2.00 2.0 03/18/18 03/18/18 09:33 11:07 Pulse 85 Resp 18 B/P (MAP) 116/82 (93) Pulse Ox 96 95 O2 Delivery Room Air (RADHA MACKEY MD) Progress Progress Note : Progress Note Seen and evaluated. IV, labs, EKG and chest x-ray ordered. ASA 324 mg by mouth ordered. Nitroglycerin sublingual ordered. Morphine 4 mg IV ordered. Monitor patient. (JANN YADAV MD) Initial ECG Impression Date: Mar 18, 2018 Initial ECG Impression Time: 05:21 Initial ECG Rate: 91 Initial ECG Rhythm: Normal Sinus Comment Sinus rhythm with left axis deviation. Left anterior fascicular block indicated. No evidence of ST elevation [place]. Similar to previous of 03/17/18. Interpreted by me. (JANN YADAV MD) Initial ECG Impression: Normal (RADHA MACKEY MD) Departure Impression Primary Impression: Pleuritic chest pain Additional Impression: COPD exacerbation Disposition: 01 HOME, SELF-CARE Condition: Improved Departure-Patient Inst. Decision time for Depature: 11:02 (RADHA MACKEY MD) Referrals: FARRUKH BAEZA MD (PCP/Family) Primary Care Physician Patient Instructions: Chest Pain That Is Not Caused by the Heart (DC), Chronic Obstructive Pulmonary Disease (COPD), Including Emphysema Add. Discharge Instructions: Drink plenty of clear liquids. For mild to moderate pain you may take your hydrocodone as prescribed. For more intense pain you may use the Percocet as prescribed. The Percocet is not enough to control your pain or if you're having more wheezing, fill the prednisone prescription and use as prescribed. Keep your appointment with Dr. Martines in April and see Dr. Subramanian next week. Work toward quitting smoking and discuss pulmonary rehabilitation, nebulizer treatments, and tactics for smoking cessation with Dr. Baeza. Follow-up with Dr. Baeza as soon as possible. Use your inhaler as prescribed for shortness of breath and/or wheezing. Return to the ER if symptoms are worsening. All discharge instructions reviewed with patient and/or family. Voiced understanding. Scripts Albuterol Sulfate (PROAIR HFA) 1 Puff Puff 2 PUFF IH Q4H, #1 PUFF 1 PUFF = 90 MCG Prov: RADHA MACKEY MD 03/18/18 Prednisone (Prednisone) 20 Mg Tab 1 TAB PO DAILY, #4 TAB Prov: RADHA MACKEY MD 03/18/18 Cyclobenzaprine HCl (Cyclobenzaprine HCl) 10 Mg Tablet 10 MG PO TID PRN for SPASMS, #10 TAB Prov: RADHA MACKEY MD 03/18/18 Oxycodone HCl/Acetaminophen (Percocet 5-325 mg Tablet) 1 Each Tablet 1-2 EACH PO Q4H PRN for PAIN-MODERATE MDD 6, #20 TAB Prov: RADHA MACKEY MD 03/18/18 Copy Copies To 1: KAYLEY SUBRAMANIAN MD Copies To 2: FARRUKH BAEZA MD, TIMOTHY D MD Mar 18, 2018 05:39 RADHA MACKEY MD Mar 18, 2018 11:07
--- OUTSIDE RECORDS SUMMARY | 2018-03-18 05:44 | XMS REPORT | Continuity of Care Document ---
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 08/07/2017 LINDSAY SIMMS Ot R91.1 SOLITARY PULMONARY NODULE 08/07/2017 LINDSAY SIMMS Ot Z08 ENCNTR FOR FOLLOW-UP EXAM AFTER TRTMT FO 08/07/2017 LINDSAY SIMMS Ot Z79.899 OTHER HALFWAY (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 THERAPY 08/07/2017 LINDSAY SIMMS Ot 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 08/07/2017 LIANA ARIAS Ot E78.2 MIXED HYPERLIPIDEMIA 08/07/2017 LIANA ARIAS Ot I10 ESSENTIAL (PRIMARY) HYPERTENSION 08/07/2017 LIANA ARIAS Ot I25.10 ATHSCL HEART DISEASE OF [place] CORONARY 08/07/2017 LIANA ARIAS Ot I65.23 OCCLUSION [...] Ot 440.0 AORTIC ATHEROSCLEROSIS 08/09/2017 ANTHONY CASTRO DEVELOPER SUPPORT ENGINEER Ot 305.1 TOBACCO USE DISORDER 08/09/2017 ANTHONY CASTRO DEVELOPER SUPPORT ENGINEER Ot 709.9 SKIN DISORDER NOS 08/09/2017 BRIDGETT CASTROIVÁN Marquise DEVELOPER SUPPORT ENGINEER Ot 787.99 OTHER GI SYSTEM SYMPTOMS 08/09/2017 ANTHONY CASTRO DEVELOPER SUPPORT ENGINEER Ot V10.82 HX-MALIG SKIN MELANOMA 08/09/2017 KAYLEY [...] FO 08/09/2017 LINDSAY SIMMS Ot Z79.899 OTHER STUDENT SERVICES REPRESENTATIVE (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 THERAPY 08/09/2017 LINDSAY SIMMS Ot 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 08/09/2017 GEOFFREY PA, LIANA K Ot E78.0 PURE HYPERCHOLESTEROLEMIA 08/09/2017 GEOFFREY PA, LIANA K Ot I10 ESSENTIAL (PRIMARY) HYPERTENSION 08/09/2017 GEOFFREY PA, LIANA K Ot I25.10 ATHSCL HEART DISEASE OF [place] CORONARY 08/09/2017 GEOFFREY PA, LIANA K Ot 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 08/09/2017 GEOFFREY PA, LIANA K Ot E78.0 PURE HYPERCHOLESTEROLEMIA 08/09/2017 GEOFFREY PA, LIANA K Ot I10 ESSENTIAL (PRIMARY) HYPERTENSION 08/09/2017 GEOFFREY PA, LIANA K Ot I25.10 ATHSCL HEART DISEASE OF [place] CORONARY 08/09/2017 GEOFFREY PA, LIANA K Ot 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 08/09/2017 LINDSAY SIMMS Fausto Ot F17.200 NICOTINE DEPENDENCE, UNSPECIFIED, UNCOMP 08/09/2017 LINDSAY SIMMS Fausto Ot Z08 ENCNTR FOR FOLLOW-UP EXAM AFTER TRTMT FO 08/09/2017 ILNDSAY SIMMS Fausto Ot Z79.899 OTHER STUDENT SERVICES REPRESENTATIVE (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 THERAPY 08/09/2017 LINDSAY SIMMS N Ot 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 08/09/2017 DEMI JAROCHOVANDANA Fausto Ot F17.210 NICOTINE DEPENDENCE, CIGARETTES, UNCOMPL 08/09/2017 DEMI JAROCHOVANDANA Fausto Ot Z08 ENCNTR FOR FOLLOW-UP EXAM AFTER TRTMT FO 08/09/2017 LINDSAY SIMMS N Ot Z79.899 OTHER STUDENT SERVICES REPRESENTATIVE (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 THERAPY 08/09/2017 DEMI, JAROCHOVANDANA N [...] NODULE 08/09/2017 JANN YADAV MD, Ot Z79.02 STUDENT SERVICES REPRESENTATIVE (CURRENT) USE OF ANTITHROMBOTI 08/09/2017 JANN YADAV MD, Ot Z79.899 OTHER STUDENT SERVICES REPRESENTATIVE (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 THERAPY 08/09/2017 JANN YADAV MD, Ot Z95.1 PRESENCE OF AORTOCORONARY BYPASS GRAFT 08/09/2017 KAYLEY LAMBERT MD Ot E11.9 TYPE 2 DIABETES MELLITUS WITHOUT COMPLIC 08/09/2017 KAYLEY LAMBERT MD Ot E78.2 MIXED HYPERLIPIDEMIA 08/09/2017 KAYLEY LAMBERT MD, Ot I10 ESSENTIAL (PRIMARY) HYPERTENSION 08/09/2017 KAYLEY LAMBERT MD, Ot I25.10 ATHSCL HEART DISEASE OF [place] CORONARY 08/09/2017 KAYLEY LAMBERT MD Ot R06.00 DYSPNEA, UNSPECIFIED 08/09/2017 DEAN SHI APRN Ot R06.00 DYSPNEA, UNSPECIFIED 08/09/2017 DEAN SHI MINI BAR ATTENDANT Ot R91.1 SOLITARY PULMONARY NODULE 08/09/2017 DEAN SHI MINI BAR ATTENDANT Ot Z72.0 TOBACCO USE 08/09/2017 DEAN SHI MINI BAR ATTENDANT Ot R91.1 SOLITARY PULMONARY NODULE 08/09/2017 LINDSAY SIMMS Ot F17.210 NICOTINE DEPENDENCE, CIGARETTES, UNCOMPL 08/09/2017 LINDSAY SIMMS Ot R91.1 SOLITARY PULMONARY NODULE 08/09/2017 LINDSAY SIMMS Ot Z08 ENCNTR FOR FOLLOW-UP EXAM AFTER TRTMT FO 08/09/2017 LINDSAY SIMMS Ot Z79.899 OTHER HALFWAY (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 THERAPY 08/09/2017 LINDSAY SIMMS Ot 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 08/09/2017 LIANA ARIAS Ot E78.2 MIXED HYPERLIPIDEMIA 08/09/2017 LIANA ARIAS Ot I10 ESSENTIAL (PRIMARY) HYPERTENSION 08/09/2017 LIANA ARIAS Ot I25.10 ATHSCL HEART DISEASE OF [place] CORONARY 08/09/2017 LIANA ARIAS Ot I65.23 OCCLUSION [...] SUBSEQUENT 08/09/2017 JANN YADAV MD Ot Z79.82 STUDENT SERVICES REPRESENTATIVE (CURRENT) USE OF ASPIRIN 08/09/2017 JANN YADAV [...] SUBSEQUENT 08/11/2017 JANN YADAV MD Ot Z79.82 HALFWAY (CURRENT) USE OF ASPIRIN 08/11/2017 JANN YADAV [...] SIMMS Ot I10 ESSENTIAL (PRIMARY) HYPERTENSION 09/25/2017 LINDSYA SIMMS Ot Z85.46 PERSONAL HISTORY OF MALIGNANT [...] 11/26/2017 Ot I25.10 ATHSCL HEART DISEASE OF [place] CORONARY 11/26/2017 Ot I65.29 OCCLUSION AND STENOSIS OF UNSPECIFIED CA 11/26/2017 Ot I73.9 PERIPHERAL VASCULAR DISEASE, UNSPECIFIED 11/26/2017 Ot I77.811 ABDOMINAL AORTIC ECTASIA 11/26/2017 Ot M19.91 PRIMARY OSTEOARTHRITIS, UNSPECIFIED SITE 11/26/2017 Ot M79.661 PAIN IN RIGHT LOWER LEG 11/26/2017 Ot M79.662 PAIN IN LEFT LOWER LEG 11/26/2017 Ot Z79.899 OTHER HALFWAY (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 THERAPY 11/26/2017 Ot Z85.46 PERSONAL [...] MD Ot I25.110 ATHSCL HEART DISEASE OF [place] COR ART W 02/17/2018 ELAINE FRANKLIN MD [...] FRANKLIN MD Ot E78.5 HYPERLIPIDEMIA, UNSPECIFIED 02/17/2018 LEAINE FRANKLIN MD Ot F17.210 NICOTINE DEPENDENCE, CIGARETTES, UNCOMPL 02/17/2018 ELAINE FRANKLIN MD Ot I10 ESSENTIAL (PRIMARY) HYPERTENSION 02/17/2018 ELAINE FRANKLIN MD Ot I25.110 ATHSCL HEART DISEASE OF [place] COR ART W 02/17/2018 ELAINE FRANKLIN MD [...] MD Ot I25.110 ATHSCL HEART DISEASE OF [place] COR ART W 02/17/2018 ELAINE FRANKLIN MD [...] Procedures Code Description Performed By Performed On [id number] PRESYBETERIAN OF CARDIAC RHYTHM, SINGLE 02/16/2018 [id number] ULTRASONOGRAPHY OF RIGHT AND LEFT HEART, 02/16/2018 [...] i.cardiac measurement (mass/volume) < ng/ mL <0.30 [id number] - 08/11/17 10:32 Serum or plasma urea [...] - 02/17/18 03:55 Magnesium 1.9 mg/dL 1.8-2.4 Automated blood complete blood count (hemogram) panel - 03/16/18 09:27 Blood leukocytes automated count (number/volume) 8.8 10*3/uL 4.3-11.0 Blood erythrocytes automated count (number/volume) 4.27 10*6/uL 4.35-5.85 Venous blood hemoglobin measurement (mass/volume) 14.8 g/dL 13.3-17.7 Blood hematocrit (volume fraction) 44 % 40-54 Automated erythrocyte mean corpuscular volume 102 [foz_us] 80-99 Automated erythrocyte mean corpuscular hemoglobin (mass per erythrocyte) 35 pg 25-34 Automated erythrocyte mean corpuscular hemoglobin concentration measurement ( mass/volume) 34 g/dL 32-36 Automated erythrocyte distribution width ratio 13.8 % 10.0-14.5 Automated blood platelet count (count/volume) 173 10*3/uL 130-400 Automated blood platelet mean volume measurement 9.4 [foz_us] 7.4-10.4 Comprehensive metabolic panel - 03/16/18 09:27 Serum or plasma sodium measurement (moles/volume) 138 mmol/L 135-145 Serum or plasma potassium measurement (moles/volume) 4.6 mmol/L 3.6-5.0 Serum or plasma chloride measurement (moles/volume) 105 mmol/L 98-107 Carbon dioxide 24 mmol/L 21-32 Serum or plasma anion gap determination (moles/volume) 9 mmol/L 5-14 Serum or plasma urea nitrogen measurement (mass/volume) 16 mg/dL 7-18 Serum or plasma creatinine measurement (mass/volume) 1.33 mg/dL 0.60-1.30 Serum or plasma urea nitrogen/creatinine mass ratio 12 NRG Serum or plasma creatinine measurement with calculation of estimated glomerular filtration rate 52 NRG Serum or plasma glucose measurement (mass/volume) 95 mg/dL 70-105 Serum or plasma calcium measurement (mass/volume) 9.7 mg/dL 8.5-10.1 Serum or plasma total bilirubin measurement (mass/volume) 0.9 mg/dL 0.1-1.0 Serum or plasma alkaline phosphatase measurement (enzymatic activity/volume) 112 U/L 40-136 Serum or plasma aspartate aminotransferase measurement (enzymatic activity/ volume) 23 U/L 5-34 Serum or plasma alanine aminotransferase measurement (enzymatic activity/volume ) 22 U/L 0-55 Serum or plasma protein measurement (mass/volume) 7.0 g/dL 6.4-8.2 Serum or plasma albumin measurement (mass/volume) 4.5 g/dL 3.2-4.5 CALCIUM CORRECTED 9.3 mg/dL 8.5-10.1 PT panel in platelet poor plasma by coagulation assay - 03/16/18 09:27 Prothrombin time (PT) in platelet poor plasma by coagulation assay 16.5 s 12.2-14.7 INR in platelet poor plasma or blood by coagulation assay 1.3 0.8-1.4 Activated partial thromboplastin time (aPTT) in platelet poor plasma bycoagulation assay - 03/16/18 09:27 Activated partial thromboplastin time (aPTT) in platelet poor plasma bycoagulation assay 31 s 24-35 Methicillin resistant Staphylococcus aureus (MRSA) screening culture - 09:27 Methicillin resistant Staphylococcus aureus (MRSA) screening culture NEG [facility] Automated blood complete blood count (hemogram) panel - 03/17/18 06:27 Blood leukocytes automated count (number/volume) 12.8 10*3/uL 4.3-11.0 Blood erythrocytes automated count (number/volume) 3.60 10*6/uL 4.35-5.85 Venous blood hemoglobin measurement (mass/volume) 12.7 g/dL 13.3-17.7 Blood hematocrit (volume fraction) 37 % 40-54 Automated erythrocyte mean corpuscular volume 103 [foz_us] 80-99 Automated erythrocyte mean corpuscular hemoglobin (mass per erythrocyte) 35 pg 25-34 Automated erythrocyte mean corpuscular hemoglobin concentration measurement ( mass/volume) 34 g/dL 32-36 Automated erythrocyte distribution width ratio 14.0 % 10.0-14.5 Automated blood platelet count (count/volume) 159 10*3/uL 130-400 Automated blood platelet mean volume measurement 9.1 [foz_us] 7.4-10.4 Whole blood basic metabolic panel - 03/17/18 06:27 Serum or plasma sodium measurement (moles/volume) 136 mmol/L 135-145 Serum or plasma potassium measurement (moles/volume) 5.1 mmol/L 3.6-5.0 Serum or plasma chloride measurement (moles/volume) 106 mmol/L 98-107 Carbon dioxide 22 mmol/L 21-32 Serum or plasma anion gap determination (moles/volume) 8 mmol/L 5-14 Serum or plasma urea nitrogen measurement (mass/volume) 19 mg/dL 7-18 Serum or plasma creatinine measurement (mass/volume) 1.11 mg/dL 0.60-1.30 Serum or plasma urea nitrogen/creatinine mass ratio 17 NRG Serum or plasma creatinine measurement with calculation of estimated glomerular filtration rate > NRG Serum or plasma glucose measurement (mass/volume) 137 mg/dL 70-105 Serum or plasma calcium measurement (mass/volume) 9.3 mg/dL 8.5-10.1 Encounters ACCT No. Visit Date/Time Discharge Status Pt. Type Provider Facility Loc./Unit Complaint [id number] 03/12/2018 05:34:00 03/12/2018 10:34:00 DIS Outpatient Ulices LYONS MD [facility] PREOP RIGHT EP STUDY [id number] 02/13/2018 13:38:00 02/17/2018 10:50:00 DIS Inpatient ELAINE FRANKLIN MD [facility] ICU A-FLUTTER W/RVR ELEVATED TROPONIN [id number] 10/06/2017 11:08:00 10/06/2017 23:59:59 CLS Outpatient MARVIN GROVE MD [facility] RAD RT SHOULDER PAIN [id number] 09/23/2017 13:06:00 09/23/2017 23:59:59 CLS Outpatient LINDSAY SIMMS [facility] ONC [id number] 09/10/2017 10:58:00 09/10/2017 23:59:59 CLS Outpatient FARRUKH SCOTT MD [facility] RAD BILATERAL HIP PAIN [id number] 08/11/2017 10:24:00 08/11/2017 23:59:59 CLS Outpatient FARRUKH SCOTT MD [facility] RAD COPD [id number] 08/09/2017 02:24:00 08/09/2017 03:26:00 DIS Emergency JANN YADAV MD [facility] ER RT SHOULDER PAIN [id number] 01/03/2017 10:01:00 01/03/2017 23:59:59 CLS Outpatient DEAN SHI MINI BAR ATTENDANT [facility] RAD R91.1 LUNG NODULE [id number] 12/06/2016 13:41:00 12/06/2016 23:59:59 CLS Outpatient LIANA ARIAS [facility] CARD CAD I25.10 [id number] 11/25/2016 09:01:00 11/25/2016 23:59:59 CLS Outpatient LINDSAY SIMMS [facility] ONC [id number] 10/09/2016 10:22:00 10/18/2016 11:00:00 DIS Outpatient KAYLEY LAMBERT MD [facility] CR STABLE ANGINA [id number] 09/18/2016 11:28:00 10/06/2016 00:01:00 DIS Outpatient KAYLEY LAMBERT MD [facility] CR STABLE ANGINA [id number] 08/21/2016 15:52:00 08/21/2016 23:59:59 CLS Outpatient DEAN SHI MINI BAR ATTENDANT [facility] RT R06.00 DYSPNEA [id number] 08/14/2016 11:46:00 08/14/2016 23:59:59 CLS Outpatient KAYLEY LAMBERT MD [facility] CARD I25.10 [id number] 07/18/2016 10:57:00 07/18/2016 23:59:59 CLS Emergency JANN YADAV MD [facility] ER CHEST PAIN [id number] 04/17/2016 07:52:00 04/19/2016 09:30:00 DIS Outpatient KAYLEY LAMBERT MD [facility] CATH CAD,HTN [id number] 02/13/2016 12:57:00 02/13/2016 23:59:59 CLS Outpatient LINDSAY SIMMS [facility] ONC [id number] 01/15/2016 12:51:00 01/15/2016 23:59:59 CLS Outpatient LINDSAY SIMMS [facility] ONC [id number] 11/22/2015 07:47:00 11/22/2015 23:59:59 CLS Outpatient TANG-CHRISTIAN NATALY LIANA K [facility] CARD CAD,CAROTID STENOSIS, HTN [id number] 10/19/2015 08:41:00 10/19/2015 23:59:59 CLS Outpatient TANG-CHRISTIAN PALIANA K [facility] CARD CAD,CAROTID STENOSIS,HTN [id number] 01/12/2015 12:57:00 01/12/2015 23:59:59 CLS Outpatient LINDSAY SIMMS [facility] ONC [id number] 04/18/2014 15:32:00 04/18/2014 23:59:59 CLS Outpatient GÉNESIS MIRAMONTES DO [facility] RT SNORING EXCESSIVE DAYTIME SLEEPINESS HTN DYSPNEA [id number] 03/07/2014 08:23:00 03/07/2014 23:59:59 CLS Outpatient KAYLEY LAMBERT MD [facility] CARD CAD,KATELIN,HTN [id number] 03/02/2014 10:07:00 03/02/2014 23:59:59 CLS Outpatient KAYLEY LAMBERT MD [facility] CARD CAD,KATELIN,HTN [id number] 01/13/2014 14:18:00 01/13/2014 14:46:00 DIS Emergency MELIZA DELGADO APRN [facility] ER FINGER LACERATION [id number] 01/12/2014 12:46:00 01/12/2014 23:59:59 CLS Outpatient ANTHONY CASTRO DEVELOPER SUPPORT ENGINEER [facility] ONC [id number] 11/30/2013 10:27:00 11/30/2013 13:02:00 DIS Emergency RADHA MACKEY MD [facility] ER LIGHTHEADED/SYNCOPE [id number] 09/24/2013 14:00:00 10/07/2013 17:00:00 DIS Outpatient FESTUS AZUL [facility] REHAB L LEG AND THIGH PAIN [id number] 08/24/2013 08:58:00 08/24/2013 23:59:59 CLS Outpatient KAYLEY LAMBERT MD [facility] RAD CAD,HTN, [id number] 02/09/2013 11:36:00 02/09/2013 23:59:59 CLS Outpatient LIANA ARIAS [facility] RAD CAD DIZZINESS ,HTN, [id number] 02/05/2013 09:06:00 02/05/2013 23:59:59 CLS Outpatient KAYLEY LAMBERT MD [facility] CARD CAD,DIZZINESS,HTN [id number] 01/11/2013 13:07:00 01/11/2013 23:59:59 CLS Outpatient LINDSAY SIMMS [facility] ONC [id number] 12/25/2012 07:30:00 12/25/2012 12:00:00 DIS Outpatient ELO CASTRO DPM [facility] SDC HAMMERT[place] 3RD AND 4TH RIGHT [id number] 12/22/2012 09:51:00 12/22/2012 23:59:59 CLS Outpatient ELO CASTRO DPM [facility] PREOP HAMMERTOES 3RD AND 4TH RIGHT [id number] 03/21/2018 21:00:00 PEN Preadmit FARRUKH SCOTT MD [facility] SLEEP HYPERSOMNIA [id number] 03/16/2018 11:00:00 PEN Kbmit Ulices LYONS MD [facility] CATH TYPICAL ATRIAL FLUTTER [id number] 11/26/2017 08:04:00 Document Registration [id number] 06/06/2014 11:02:00 Document Registration [id number] 03/01/2014 09:33:00 Document Registration [id number] 03/01/2014 09:33:00 Document Registration [id number] 07/16/2012 13:47:00 Document Registration [id number] 05/28/2012 06:00:00 Document Registration [id number] 05/11/2012 12:00:00 Document Registration [id number] 01/13/2012 13:09:00 Document Registration [id number] 10/21/2011 12:30:00 Document Registration [id number] 01/14/2011 13:33:00 Document Registration [id number] 09/12/2010 10:10:00 Document Registration [id number] 12/14/2009 08:48:00 Document Registration [id number] 10/30/2009 07:03:00 Document Registration [id number] 03/15/2009 00:00:00 Document Registration [id number] 12/27/2008 12:52:00 Document Registration [id number] 12/14/2008 09:32:00 Document Registration [id number] 01/12/2015 14:15:51 ACT Document Registration [id number] 02/04/2017 13:59:03 02/04/2017 23:59:59 [facility]
[2018-03-18 05:55] LABS: BASOPHILS % (AUTO) 0 % (0-10); EOSINOPHILS % (AUTO) 0 % (0-10); HEMATOCRIT 37 % (40-54); HEMOGLOBIN 12.8 G/DL (13.3-17.7); LYMPHOCYTES # (AUTO) 1.7 X 10^3 (1.0-4.0); LYMPHOCYTES % (AUTO) 12 % (12-44); MEAN CORPUSCULAR HEMOGLOBIN 36 PG (25-34); MEAN CORPUSCULAR HGB CONC 35 G/DL (32-36); MEAN CORPUSCULAR VOLUME 102 FL (80-99); MEAN PLATELET VOLUME 9.3 FL (7.4-10.4); MONOCYTES # (AUTO) 1.5 X 10^3 (0.0-1.0); MONOCYTES % (AUTO) 10 % (0-12); NEUTROPHILS # (AUTO) 11.2 X 10^3 (1.8-7.8); NEUTROPHILS % (AUTO) 78 % (42-75); PLATELET COUNT 148 10^3/uL (130-400); RED BLOOD COUNT 3.57 10^6/uL (4.35-5.85); RED CELL DISTRIBUTION WIDTH 14.3 % (10.0-14.5); WHITE BLOOD COUNT 14.4 10^3/uL (4.3-11.0)
[2018-03-18 06:11] LABS: INR 1.1 (0.8-1.4); PROTHROMBIN TIME PATIENT 14.7 SEC (12.2-14.7)
[2018-03-18 06:19] LABS: ALANINE AMINOTRANSFERASE 24 U/L (0-55); ALBUMIN 4.1 GM/DL (3.2-4.5); ALKALINE PHOSPHATASE 90 U/L (40-136); BILIRUBIN,TOTAL 0.6 MG/DL (0.1-1.0); BUN/CREATININE RATIO 21; CALCIUM 9.1 MG/DL (8.5-10.1); CARBON DIOXIDE 23 MMOL/L (21-32); CHLORIDE 106 MMOL/L (98-107); GFR ESTIMATED > 60; GLUCOSE 101 MG/DL (70-105); POTASSIUM 4.6 MMOL/L (3.6-5.0); SODIUM 139 MMOL/L (135-145); TOTAL PROTEIN 6.5 GM/DL (6.4-8.2)
[2018-03-18 06:25] LABS: MYOGLOBIN SERUM 947.6 NG/ML (10.0-92.0)
[2018-03-18] MEDS ORDERED: NS IV 1000 ML 1,000 ML IV ONE (07:19)
[2018-03-18] MEDS ORDERED: IOHEXOL 350 MG/ML 150 ML (OMNIPAQUE 350) VIAL IV ONE (07:45)
[2018-03-18] MEDS ORDERED: NS 250 ML (IVPB) BAG IV ONE (07:45)
[2018-03-18] MEDS ORDERED: RECEIVED CONTRAST (Hold Metformin) IV SCH (07:45)
--- NOTE | 2018-03-18 08:27 | Diagnostic Imaging Report ---
PATIENT HISTORY: Chest pain. TECHNIQUE: Single frontal view of the chest. COMPARISON: 02/17/2018. FINDINGS: Lung volumes are low. Redemonstrated are prominent interstitial opacities on the lungs bilaterally which appear unchanged. There is mild cardiomegaly which appears stable. Sternotomy wires are again noted. There is no pleural effusion or pneumothorax seen. No acute osseous abnormality is seen. IMPRESSION: Low lung volumes with chronic interstitial opacities bilaterally. No new consolidation seen. Dictated by: Dictated on workstation # [id number]
--- NOTE | 2018-03-18 08:37 | Diagnostic Imaging Report ---
PROCEDURE: CT angiography of the chest with contrast. TECHNIQUE: Multiple contiguous axial images were obtained through the chest after uneventful bolus administration of intravenous contrast. 2D reconstructed CTA MIP acquisitions were also performed. INDICATION: Status post cardiac ablation on 03/17/2018. Patient complains of chest pressure. Comparison is made with chest CT from 08/11/2017. Evaluation of the pulmonary arterial system is without evidence of thromboembolism. No filling defects are seen within the central, lobar or segmental branches. The thoracic aorta is normal in caliber. No dissection is seen. There are changes of median sternotomy. There appears to be a stent in the left subclavian. No pericardial or pleural fluid is identified. There are generalized subpleural interstitial changes as suggestive of probable scarring. No definite parenchymal mass is seen. Upper abdomen is unremarkable. IMPRESSION: No evidence of pulmonary embolism or thoracic aortic dissection. Diffuse interstitial changes are noted, likely owing to fibrotic scarring. Dictated by: Dictated on workstation # [id number]
[2018-03-18] MEDS ORDERED: RT-ALBUTEROL/IPRATROPIUM 3 ML (DUONEB) VIAL INH ONE (09:15)
[2018-03-18 11:07] VITALS: BP 116/82
[2018-03-18] MEDS ORDERED: RT-ALBUINH IH (11:07)
[2018-03-18] MEDS ORDERED: CYCL10TA9 PO (11:07)
[2018-03-18] MEDS ORDERED: PRD20T PO (11:07)
[2018-03-18] MEDS ORDERED: OXYC1TAB87 PO (11:07)
[2018-03-18] MEDS ORDERED: oxyCODONE/APAP 5/325MG (PERCOCET 5) TABLET PO ONE (11:15)
--- NOTE | 2018-03-18 11:28 | Consultation-Cardiology ---
HPI-Cardiology Cardiology Consultation: Date of Consultation 03/18/18 Date of Admission Attending Physician Admitting Physician Pepper Baeza MD Consulting Physician Ulices MARTINES MD HPI: Time Seen by a Provider: 08:30 Chief Complaint: Pleuritic chest pain This is a 77-year-old gentleman with history of CAD, CABG. He follows for cardiology with Dr. Subramanian. He presented with typical atrial flutter and therefore was referred for cardiac electrophysiology consultation. Typical atrial flutter ablation was done on 03/16/2018. He was discharged on 03/17/2018. He presents with pleuritic chest pain. The pain is reproducible with deep breathing. The patient denies any shortness of breath, syncope, near-syncope or palpitations. Review of Systems-Cardiology Review of Systems Constitutional: As described under HPI; No As described under HPI, No no symptoms reported, No chills, No fever, No lightheadedness Eyes: No As described under HPI, No no symptoms reported, No blindness, No blurred vision, No contact lenses, No drainage, No decreased acuity, No foreign body sensation, No pain, No vision change Ears/Nose/Throat: No As described under HPI, No no symptoms reported, No chronic hearing loss, No ear discharge, No ear pain, No nasal drainage, No ulcerations Respiratory: No no symptoms reported; As described under HPI; No As described under HPI, No cough, No orthopnea, No shortness of breath, No SOB with excertion Cardiovascular: No no symptoms reported; As described under HPI; No As described under HPI; chest pain; No edema, No irregular heart rate, No lightheadedness, No palpitations Gastrointestinal: No no symptoms reported, No As described under HPI, No abdomen distended, No abdominal pain, No blood streaked bowels, No constipation , No diarrhea, No nausea, No vomiting, No stool coloration changes Genitourinary: No As described under HPI, No burning, No dysuria, No discharge , No frequency, No flank pain, No hematuria, No urgency Skin: No rash, No skin related problems, No ulcerations Psychiatric/Neurological: No anxiety, No depression, No seizure, No focal weakness, No syncope Hematologic: No bleeding abnormalities All Other Systems Reviewed Negative Unless Noted: Yes [id number] Hx Patient Social History Alcohol Use: Denies Use Recreational Drug Use: No Smoking Status: Current Everyday Smoker Type Used: Cigarettes 2nd Hand Smoke Exposure: Yes Recent Foreign Travel: No Recent Infectious Disease Expo: No Hospitalization with Isolation: Denies Immunizations Up To Date Tetanus Booster (TDap): More than 5yrs Date of Pneumonia Vaccine: Nov 12, 2016 Date of Influenza Vaccine: Feb 12, 2018 Past Medical History PMH As described under Assessment. Family Medical History Family Medical History: He reports his mother and father both had CAD. Family History: Cardiovascular disease 19 MOTHER Myocardial infarction 19 FATHER Allergies and Home Medications Allergies Coded Allergies: No Known Drug Allergies (Verified , 02/23/08) Home Medications Albuterol Sulfate 1 Puff Puff, 2 PUFF IH Q4H 1 PUFF = 90 MCG Prescribed by: RADHA MELISSA on 03/18/181106 Allopurinol 100 Mg Tablet, 200 MG PO DAILY, (Reported) TAKES 2 (100MG) TABLETS Allopurinol 100 Mg Tablet, 100 MG PO HS, (Reported) Apixaban 5 Mg Tablet, 5 MG PO DAILY, (Reported) Aspirin 81 Mg Tablet.dr, 81 MG PO HS, (Reported) Atorvastatin Calcium 40 Mg Tablet, 40 MG PO HS, (Reported) Calcium Carbonate/Vitamin D3 1 Each Tablet, 1 TAB PO HS, (Reported) Cyclobenzaprine HCl 10 Mg Tablet, 10 MG PO TID PRN for SPASMS Prescribed by: RADHA MELISSA on 03/18/181106 Doxazosin Mesylate 4 Mg Tablet, 4 MG PO HS, (Reported) Flaxseed Oil 1,000 Mg Capsule, 3,500 MG PO HS, (Reported) Hydrocodone/Acetaminophen 1 Each Tablet, 1-2 TAB PO Q4H PRN for PAIN-MODERATE, ( Reported) Levothyroxine Sodium 50 Mcg Tablet, 50 MCG PO DAILY, (Reported) Lisinopril 5 Mg Tablet, 2.5 MG PO BID, (Reported) TAKES 1/2 (5MG) TABLET Magnesium Oxide 400 Mg Tablet, 400 MG PO HS, (Reported) Metoprolol Succinate 25 Mg Tab.er.24h, 25 MG PO DAILY, (Reported) Multivitamin 1 Each Tablet, 1.5 EACH PO DAILY, (Reported) Multivitamin 1 Each Tablet, 0.5 EACH PO HS, (Reported) Oxycodone HCl/Acetaminophen 1 Each Tablet, 1-2 EACH PO Q4H PRN for PAIN-MODERATE Prescribed by: RADHA MELISSA on 03/18/18 1107 Pantoprazole Sodium 40 Mg Tablet.dr, 40 MG PO DAILY, (Reported) Potassium Gluconate 99 Mg Tablet, 99 MG PO DAILY, (Reported) Prednisone 20 Mg Tab, 1 TAB PO DAILY Prescribed by: RADHA MELISSA on 03/18/18 1107 Ranolazine 1,000 Mg Tab.er.12h, 1,000 MG PO BID, (Reported) Vitamin B Complex 1 Each Tablet, 1 EACH PO HS, (Reported) Patient Home Medication List Home Medication List Reviewed: Yes Physical Exam-Cardiology Physical Exam Vital Signs/I&O Capillary Refill : Less Than 3 Seconds Constitutional: appears stated age, AAO x 3; No apparent distress; well- developed, well-nourished HEENT: PERRL; No normal ENT inspection, No TMs normal, No pharynx normal, No scleral icterus (R), No scleral icterus (L), No pale conjunctivae (R), No pale conjunctivae (L), No photophobia, No TM abnormal (R), No TM abnormal (L), No pharyngeal erythema, No tonsillar exudate, No other, No discharge, No EOMI; hearing is well preserved; No hard of hearing; oral hygience is good; No ulceration, No xanthelasmas are seen Neck: No non-tender, No full range of motion, No supple, No normal inspection, No carotid bruit, No limited range of motion, No lymphadenopathy (R), No lymphadenopathy (L), No tender lateral, No tender midline, No thyromegaly, No other; carotid pulses are 2 + bilaterally; No with good upstrokes Respiratory: No accessory muscle use, No respiratory distress, No chest tender , No chest expansion is symmetric; chest is bilaterally symmetric; No lungs clear to percussion; lungs clear to auscultation; No crackles, No rhonchi, No rales, No stridor, No wheezing, No pleural rub, No other Cardiovascular: regular rate-rhythm; No irregularly irregular, No extra beats, No parasternal heave is noted, No JVD, No edema, No bradycardia, No tachycardia , No point of maximal impulse, No cardiac thrills are palpable; S1 and S2; No gallop/S3, No gallop/S4, No diastolic murmur, No systolic murmur, No friction rub, No click, No other Gastrointestinal: No tender, No soft, No round, No distended, No pulsatile mass , No organomegaly, No guarding, No rebound, No tenderness, No hernia, No mass, No audible bowel sounds, No abnormal bowel sounds, No abdominal bruits, No spleenomegaly, No other Rectal: deferred Extremities: No normal range of motion, No non-tender, No normal inspection, No pedal edema, No calf tenderness, No normal capillary refill, No pelvis stable , No calf tenderness, No inflammation, No pedal edema, No slow capillary refill , No swelling, No other, No abrasion, No clubbing, No cyanosis, No ecchymosis, No laceration, No no lower extremity edema bilateral, No significant edema, No tenderness, No wound Neurologic/Psychiatric: no motor/sensory deficits, alert, normal mood/affect, oriented x 3, power is 5/5 both on sides Skin: No normal color, No warm/dry, No cyanosis, No cool, No diaphoresis, No damp, No ecchymosis, No jaundice, No mottled, No pallor, No rash, No tattoos/ piercings, No ulcerations, No rash on exposed areas, No ulcerations on exposed areas, No other Data Review Labs ECG Impression ECG Initial ECG Rhythm: Normal Sinus Initial ECG Impression: Normal A/P-Cardiology Assessment/Admission Diagnosis Pleuritic chest pain, CAD/CABG, Recent typical atrial flutter ablation, Positive troponin. Plan Pleuritic chest pain with mild troponin elevation with no significant serial trend is likely due to ablation and possible associated mild myopericarditis. NSAIDs are recommended. No significant acute ST-T wave abnormalities on EKG, unlikely acute coronary syndrome. Continue same medications for atrial flutter , CAD. Will follow-up in Dr. Subramanian and myself in the next 2-3 weeks. I educated the patient that if he continues to have significant chest pain he should seek immediate medical attention. CT chest was done which did not show any pneumonia or pericardial effusion. Elevated white blood cell count. However CRP and ESR negative. Thank you for your consultation. Please call me if you have any questions. Chad Martines MD, FACP, FACC, FSCAI, FHRS, CCDS Interventional Cardiology Cardiac Electrophysiology Vascular Medicine and Endovascular Interventions Clinical Quality Measures AMI/AHF: ASA po Prior to arrival: lUices Velázquez MD Mar 18, 2018 11:28
[2018-03-19 08:56] LABS: BAND NEUTROPHILS 2 %; BASOPHILS % (MANUAL) 0 %; EOSINOPHILS % (MANUAL) 0 %; LYMPHOCYTES % (MANUAL) 6 %; MONOCYTES % (MANUAL) 10 %; NEUTROPHILS % (MANUAL) 79 %
[2018-03-19 08:57] LABS: ELLIPT/OVALOCYTES SLIGHT; HYPOCHROMASIA SLIGHT; POIKILOCYTOSIS SLIGHT; REACTIVE LYMPHOCYTES 3 %
== END 2018-03-18 11:12 | disposition home or self-care (01) ==
LOC: EDUNIT# 05:18 → ER 05:20
DX: R07.81 Pleurodynia (principal); J44.1 Chronic obstructive pulmonary disease with (acute) exacerbation; I48.91 Unspecified atrial fibrillation; I25.10 Atherosclerotic heart disease of native coronary artery without angina pectoris; I10 Essential (primary) hypertension; K21.9 Gastro-esophageal reflux disease without esophagitis; M10.9 Gout, unspecified; E03.9 Hypothyroidism, unspecified; F17.210 Nicotine dependence, cigarettes, uncomplicated; Z95.1 Presence of aortocoronary bypass graft; Z85.46 Personal history of malignant neoplasm of prostate; Z82.49 Family history of ischemic heart disease and other diseases of the circulatory system; Z95.5 Presence of coronary angioplasty implant and graft; Z98.890 Other specified postprocedural states; Z79.51 Long term (current) use of inhaled steroids; Z79.01 Long term (current) use of anticoagulants; Z79.82 Long term (current) use of aspirin; Z79.52 Long term (current) use of systemic steroids
CPT/HCPCS: 36415; 71045; 71275; 80053; 83735; 83874; 84484; 85007; 85025; 85027; 85610; 85652; 85730; 86141; 93005; 93041; 94640

== ENCOUNTER 2018-03-21 21:00 | Outpatient (CLI) | payer MEDICARE, BC ==
[~2018-03-21 21:00] MED LIST changes: +CYCL10TA9 PO; +OXYC1TAB87 PO; +RT-ALBUINH IH
== END 2018-03-22 06:34 | disposition home or self-care (01) ==
LOC: SLEEP 21:00
PROVIDERS: ATTEND Family Medicine
DX: G47.33 Obstructive sleep apnea (adult) (pediatric) (principal); G47.10 Hypersomnia, unspecified
CPT/HCPCS: 95811

== ENCOUNTER → 2018-05-11 | Outpatient (CLI) | payer MEDICARE, BC ==
[~2018-05-11] MED LIST changes: +RT-ALBUTEROL SULF 2.5 MG/3 ML PRE-MIX VIAL INH ONE
== END ==
LOC: RT 09:30
PROVIDERS: ATTEND Nurse Practitioner Family
DX: R06.00 Dyspnea, unspecified (principal); R91.1 Solitary pulmonary nodule; J44.9 Chronic obstructive pulmonary disease, unspecified; G47.33 Obstructive sleep apnea (adult) (pediatric); Z72.0 Tobacco use
CPT/HCPCS: 94060; 94726; 94729

== ENCOUNTER → 2018-06-15 | Outpatient (CLI) | payer MEDICARE, BC ==
[~2018-06-15] MED LIST changes: +CATHETER FLUSH 10 ML SYR IV PRN; +REGADENOSON 0.4 MG/5 ML SYR (LEXISCAN) IV ONE; -RT-ALBUTEROL SULF 2.5 MG/3 ML PRE-MIX VIAL INH ONE
[2018-06-15 09:22] VITALS: BP 104/65
[2018-06-15 09:24] VITALS: BP 95/71
[2018-06-15 09:26] VITALS: BP 111/74
--- NOTE | 2018-06-15 14:56 | STRESS TEST ---
DATE OF SERVICE: 06/15/2018 LEXISCAN MYOVIEW STRESS TEST REPORT REFERRING PHYSICIAN: Dr. Baeza. Baseline heart rate is 74. Baseline blood pressure 113/79. Baseline EKG is sinus rhythm with occasional premature ventricular contractions. In summary, the patient was injected with 10.89 mCi of technetium-99 Myoview and the resting images were obtained. Then, the patient received 0.4 mg of Lexiscan followed by 31.4 mCi of technetium-99 Myoview. Throughout the test, there were no EKG changes. The resting and stress images were reviewed and compared in the short axis, horizontal long axis, and vertical long axis views. Review of the images showed diaphragmatic attenuation with fixed defect involving the mid to apical inferior wall and inferolateral wall with no significant reversibility. SSS is 11, SDS 1, TID value 1.07. On the gated images, the left ventricle appeared to be dilated with end diastolic volume 131 mL, end systolic volume 85 mL. Diffuse left ventricular hypokinesia more, pronounced at the inferior wall. Calculated ejection fraction 35%. CONCLUSION: 1. The patient tolerated Lexiscan well. 2. Diaphragmatic attenuation with fixed defect involving the inferior wall and inferolateral wall. 3. Prominent left ventricle with diffuse left ventricular hypokinesia, more pronounced at the inferior wall. Calculated ejection fraction 35%. Job ID: [id number] DocumentID: [id number] Dictated Date: 06/15/2018 12:39:28 [employer] Date: 06/15/2018 14:55:49 Dictated By: KAYLEY LAMBERT MD
== END ==
LOC: CARD 08:02
PROVIDERS: ATTEND Internal Medicine Cardiovascular Disease
DX: I25.10 Atherosclerotic heart disease of native coronary artery without angina pectoris (principal); R06.09 Other forms of dyspnea; I10 Essential (primary) hypertension; E78.2 Mixed hyperlipidemia
CPT/HCPCS: 78452; 93017

== ENCOUNTER → 2018-09-18 | Outpatient (CLI) | payer MEDICARE, BC ==
[~2018-09-18] MED LIST changes: -CATHETER FLUSH 10 ML SYR IV PRN; -REGADENOSON 0.4 MG/5 ML SYR (LEXISCAN) IV ONE
--- NOTE | 2018-09-18 09:26 | Diagnostic Imaging Report ---
PROCEDURE: CT chest without contrast. TECHNIQUE: Multiple contiguous axial images were obtained through the chest without the use of intravenous contrast. Auto Exposure Controls were utilized during the CT exam to meet ALARA standards for radiation dose reduction. INDICATION: Dyspnea. Correlation is made with prior CT chest from 03/18/2018. FINDINGS: There are changes of median sternotomy. No axillary lymphadenopathy is detected. No definite mediastinal or hilar lymphadenopathy is seen. No pericardial or pleural fluid is detected. Subpleural interstitial fibrotic changes throughout both lungs persist and appear similar to prior exam. There is a nodular density in the lateral aspect of the right middle lobe, 6 mm in size and stable when compared with prior exam. Additional tiny nodule more inferiorly in the right middle lobe is also stable at 3-4 mm. No new nodule is identified. Upper abdomen is unremarkable apart from renal low-density lesions, incompletely included on the study but likely cysts. IMPRESSION: Interstitial fibrotic changes and stable right middle lobe nodules when compared with exam from 03/18/2018. Dictated by: Dictated on workstation # [id number]
== END ==
LOC: RAD 08:52
PROVIDERS: ATTEND Nurse Practitioner Family
DX: J84.10 Pulmonary fibrosis, unspecified (principal); J44.9 Chronic obstructive pulmonary disease, unspecified; R91.8 Other nonspecific abnormal finding of lung field
CPT/HCPCS: 71250

== ENCOUNTER → 2018-09-22 | Outpatient (CLI) | payer MEDICARE, BC | LOC: ONC 12:54 | PROVIDERS: ATTEND Internal Medicine Hematology & Oncology | DX: Z08 Encounter for follow-up examination after completed treatment for malignant neoplasm (principal); Z85.820 Personal history of malignant melanoma of skin; R91.1 Solitary pulmonary nodule; F17.210 Nicotine dependence, cigarettes, uncomplicated; Z85.46 Personal history of malignant neoplasm of prostate; Z79.01 Long term (current) use of anticoagulants; Z79.899 Other long term (current) drug therapy | CPT/HCPCS: 99213 ==

== ENCOUNTER 2018-10-23 08:29 | Outpatient (RCR) | payer MEDICARE, BC | END 2019-01-21 | disposition home or self-care (01) | LOC: CARD 08:29 | PROVIDERS: ATTEND Internal Medicine Interventional Cardiology | DX: I48.0 Paroxysmal atrial fibrillation (principal); I48.3 Typical atrial flutter ==

== ENCOUNTER → 2019-03-23 | Outpatient (CLI) | payer MEDICARE, BC ==
--- NOTE | 2019-03-23 09:30 | Diagnostic Imaging Report ---
PROCEDURE: CT chest without contrast. TECHNIQUE: Multiple contiguous axial images were obtained through the chest without the use of intravenous contrast. Auto Exposure Controls were utilized during the CT exam to meet ALARA standards for radiation dose reduction. INDICATION: Pulmonary fibrosis, shortness of breath and cough. FINDINGS: There is some chronic appearing interstitial scarring and infiltrate in the peripheral aspect of both lungs slightly greater in the upper lobes. There are 2 unchanged small nodular densities in the right middle lobe. No other new pulmonary nodules or masses are identified. There is no pleural or pericardial fluid. There is no pneumothorax. Thoracic aorta is normal in caliber. There is cardiomegaly and coronary artery calcification. There is no pneumothorax. The visualized intra-abdominal structures are unremarkable. There is an unchanged compression fracture in the lower thoracic spine. IMPRESSION: Unchanged interstitial fibrotic change in the periphery of both lungs with an upper lobe predominance. Stable small pulmonary nodules in right middle lobe. Cardiomegaly and coronary artery calcification. Dictated by: Dictated on workstation # [id number]
== END ==
LOC: RAD 08:48
PROVIDERS: ATTEND Nurse Practitioner Family
DX: J84.10 Pulmonary fibrosis, unspecified (principal); I25.10 Atherosclerotic heart disease of native coronary artery without angina pectoris; G47.33 Obstructive sleep apnea (adult) (pediatric); J44.9 Chronic obstructive pulmonary disease, unspecified; I51.7 Cardiomegaly; R91.8 Other nonspecific abnormal finding of lung field; Z72.0 Tobacco use
CPT/HCPCS: 71250

== ENCOUNTER → 2019-05-20 | Outpatient (CLI) | payer MEDICARE, BC ==
[~2019-05-20] MED LIST changes: -METO-387 PO; +MTP25TSR PO
== END ==
LOC: CARD 10:11
PROVIDERS: ATTEND Internal Medicine Cardiovascular Disease
DX: I48.0 Paroxysmal atrial fibrillation (principal); E78.2 Mixed hyperlipidemia; I10 Essential (primary) hypertension; I25.10 Atherosclerotic heart disease of native coronary artery without angina pectoris; I34.0 Nonrheumatic mitral (valve) insufficiency
CPT/HCPCS: 93306

== ENCOUNTER → 2019-10-18 | Outpatient (CLI) | payer MEDICARE, BC ==
[~2019-10-18] MED LIST changes: +ACHYD1T PO; -HYDR-3820 PO
== END ==
LOC: LABNPT 06:49
PROVIDERS: ATTEND Internal Medicine Interventional Cardiology
DX: Z01.812 Encounter for preprocedural laboratory examination (principal); Z20.828 Contact with and (suspected) exposure to other viral communicable diseases
CPT/HCPCS: 87635

== ENCOUNTER 2019-10-22 06:59 | Day surgery (SDC) | payer MEDICARE, BC ==
[~2019-10-22] VITALS: Ht 182 cm; Wt 100.0 kg
[2019-10-22] VITALS (15 sets, daily range): BP systolic 104–134; BP diastolic 63–81
[2019-10-22] MEDS ORDERED: LIDOCAINE 1% INJ 20 ML 20 ML VIAL ONE (07:00)
[2019-10-22] MEDS ORDERED: HEParin (CATH LAB) 3,000 ML IV ONE (07:00)
[2019-10-22] MEDS ORDERED: NS IV 1000 ML 2,000 ML ONE (07:00)
[2019-10-22] MEDS ORDERED: HEParin 1000 UNIT/ML (10ML VIAL) FOR BOLUS ONE ×2 (07:00→11:20)
[2019-10-22] MEDS ORDERED: NS IV 1000 ML 1,000 ML IV SCH (07:01)
[2019-10-22] MEDS ORDERED: HEParin DRIP 25000 UNIT/500ML 500 ML IV ONE (07:09)
[2019-10-22] MEDS ORDERED: ISOPROTERENOL 0.2 MG/D5W 50 ML IV ONE (07:15)
[2019-10-22 07:44] LABS: HEMOGLOBIN 14.2 G/DL (13.3-17.7); MEAN PLATELET VOLUME 9.5 FL (7.4-10.4); RED CELL DISTRIBUTION WIDTH 13.8 % (10.0-14.5); WHITE BLOOD COUNT 8.3 10^3/uL (4.3-11.0)
[2019-10-22 07:52] LABS: ALBUMIN 4.3 GM/DL (3.2-4.5); POTASSIUM 4.3 MMOL/L (3.6-5.0)
[2019-10-22 07:53] LABS: CALCIUM 9.2 MG/DL (8.5-10.1)
[2019-10-22 07:56] LABS: BILIRUBIN,TOTAL 0.6 MG/DL (0.1-1.0)
[2019-10-22 07:58] LABS: CREATININE SERUM 1.31 MG/DL (0.60-1.30)
[2019-10-22] MEDS ORDERED: FURO20TA4 PO (07:58)
[2019-10-22] MEDS ORDERED: POTA10TA6 PO (07:58)
[2019-10-22 08:00] LABS: INR 1.2 (0.8-1.4); PROTHROMBIN TIME PATIENT 15.8 SEC (12.2-14.7)
[2019-10-22] MEDS ORDERED: MIDAZOLAM 2 MG/2 ML (VERSED) VIAL ONE (09:23)
[2019-10-22] MEDS ORDERED: LIDOCAINE BOLUS 100 MG/5 ML (IMS) SYR ONE (09:23)
[2019-10-22] MEDS ORDERED: proPOfol 200 MG/20 ML (DIPRIVAN) VIAL IV ONE (09:23)
[2019-10-22] MEDS ORDERED: ROCURONIUM 10 MG/ML 5 ML SYRINGE IV ONE ×2 (09:24→11:46)
[2019-10-22] MEDS ORDERED: fentaNYL INJECTION 100 MCG/2 ML AMP ONE (09:24)
[2019-10-22] MEDS ORDERED: SEVOFLURANE (ULTANE) 15 ML INHAL SOLN ONE ×2 (09:24→12:35)
[2019-10-22] MEDS ORDERED: ONDANSETRON 4 MG/2 ML (SDV) Z0FRAN ONE (09:28)
[2019-10-22] MEDS ORDERED: DEXAMETHASONE 10 MG/ML (DECADRON) 1 ML VIAL ONE (09:29)
[2019-10-22] MEDS ORDERED: PHENYLEPHRINE 100 MCG/ML 10 ML (ANESTHESIA) SYR ONE (10:08)
[2019-10-22] MEDS ORDERED: LACTATED RINGERS 1,000 ML IV ONE (10:16)
--- OUTSIDE RECORDS SUMMARY | 2019-10-22 10:28 | XMS REPORT | Continuity of Care Document ---
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 facilities. It does not include entries that were removed or entered in error. Problem Status Onset Date Problem Type Date of Resolution Comments Source Arthritis * (ICD-9-CM 716.90) Active Condition [facility] Benign essential hypertension (SNOMED CT 0373252) Active Condition [facility] Bilateral tinnitus (SNOMED CT 0489366319905) Active Condition [facility] cancer skin, lymph node involvement, one node removed, others neg. Active Condition Jun 23, 2008 Entered By: FESTUS AZUL Comment: per [facility] oncology, follow up in 3 months [facility] Chronic back pain (SNOMED CT 639960762) Active Condition [facility] Chronic Low Back Pain (ICD-9-CM 724.2) Active Condition [facility] colonoscopy done at [facility] 2007 per felix he Active Condition [facility] Coronary arteriosclerosis (SNOMED CT 33162710) Active Condition [facility] Hip: arthralgia (pain on rotation, pain in groin) * (ICD-9-CM 716.95) Active Condition [facility] Hypothyroidism * (ICD-9-CM 244.9) Active Condition [facility] 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 [facility] Leg swelling symptom (SNOMED CT 856994565) Active Condition [facility] LUMB/LUMBOSAC DISC DEGEN Active Condition [facility] Neck Pain (ICD-9-CM 723.1) Active Condition [facility] Prostate Cancer (ICD-9-CM 185.) Active Condition [facility] Sciatica * (ICD-9-CM 724.3) Active Condition [facility] Sensorineural hearing loss, bilateral ([place] [address] 3335) Active Condition [facility] ICD-10-CM I10. Essential (primary) hyper tension with Provider Comments: Benign essential hypertension (SCT 0834955) active Diagnosis [facility] ICD-10-CM I51.9 Heart disease, unspecifi ed with Provider Comments: Heart Disease, unspecified active Diagnosis [facility] Medications Combined list of all outpatient medications recorded within the last 15 months b y all Department of Defense and Veterans Affairs facilities, and also all patien t-reported medications. Medication Details Route Status Patient Instructions Prescription Expires Prescript ion Number Last Dispense Date Ordering Pr ovider Order Date Source ALBUTEROL SO4 90MCG/ACTUAT (CFC-F) INHL,ORAL,6.7GM INHALE 2 PUFFS BY ORAL INHALATION THREE TIMES A DAY NEEDED FOR BREATHING. SHAKE WELL. RINSE MOUTHPIECE FREQUENTLY TO PREVENT CLOGGING. 08/07/2019 [id number] 08/10/2018 FESTUS AZUL 08/10/2018 [facility] ALLOPURINOL 100MG TAB TAKE ONE TABLET BY MOUTH THREE TIMES A DAY ACTIVE FESTUS AZUL 07/24/2010 [facility] APIXABAN 5MG TAB TAKE ONE TABL ET BY MOUTH TWO TIMES A DAY ACTIVE FESTUS AZUL 08/06/2018 [facility] ASPIRIN 81MG TAB,EC TAKE ONE T ABLET BY MOUTH ONCE A DAY ACTIVE FESTUS AZUL 07/29/2011 [facility] ATORVASTATIN CA 80MG TAB TAKE ONE-HALF TABLET BY MOUTH AT BEDTIME ACTIVE FESTUS AZUL 12/02/2007 [facility] DOXAZOSIN MESYLATE 8MG TAB JOSE F E ONE-HALF TABLET BY MOUTH AT BEDTIME ACTIVE FESTUS AZUL 07/24/2010 [facility] FISH OIL CAP/TAB 1 CAP/TAB TO TH ONCE A DAY ACTIVE FESTUS AZUL 02/25/2007 [facility] HYDROCODONE 10MG/ACETAMINOPHEN 325MG TAB TAKE ONE TABLET BY MOUTH PRN ACTIVE FESTUS AZUL 08/06/2018 [facility] LEVOTHYROXINE NA 0.05MG TAB (SYNTHROID) TAKE ONE TABLET BY MOUTH EVERY MORNING BEFORE MEAL ACTIVE ARMIN AZUL 08/04/2013 [facility] METOPROLOL SUCCINATE 50MG TAB,SA TAKE ONE-HALF TABLET BY MOUTH EVERY MORNING ACTIVE FESTUS AZUL 07/24/2010 [facility] MONTELUKAST NA 10MG TAB TAKE O NE TABLET BY MOUTH EVERY EVENING 08/07/2019 [id number] 08/13/2018 FESTUS AZUL 08/13/2018 [facility] MULTIVITAMINS CAP/TAB TAKE ONE TABLET BY MOUTH ONCE A DAY ACTIVE FESTUS AZUL 07/24/2010 [facility] PANTOPRAZOLE NA 40MG TAB,EC TA KE ONE TABLET BY MOUTH ONCE A DAY ACTIVE OSTERBUHR,TAMATHA S 08/01/2016 [facility] RANOLAZINE 500MG TAB,SA TAKE O NE TABLET BY MOUTH TWO TIMES A DAY ACTIVE OSTERBUHR,TAMATHA S 08/01/2016 [facility] Allergies, Adverse Reactions, Alerts No Known Medication Allergies Immunizations Combined list of: 1) all immunizations on record at all [facility] ies, and 2) all available immunizations on record at Department of Defense (Do D) facilities. Some immunizations on record at [facility] may not be included. Immunization Series Date Given Administered By Site Reaction Lot Number CVX Code Drug [employer] Status Comments Source INFLUENZA, UNSPECIFIED FORMULATION 01/12/2019 88 completed [facility] 15 INFLUENZA, UNSPECIFIED FORMULATION 02/12/2018 88 completed [facility] 15 INFLUENZA, UNSPECIFIED FORMULATION 01/12/2017 88 completed [facility] 15 INFLUENZA, UNSPECIFIED FORMULATION 02/03/2016 88 [facility] PNEUMOCOCCAL POLYSACCHARIDE PPV23 12/14/2015 33 completed [facility] 15 PNEUMOCOCCAL CONJUGATE PCV 13 08/01/2015 133 completed [facility] INFLUENZA, UNSPECIFIED FORMULATION 01/12/2015 88 completed [facility] 15 INFLUENZA, UNSPECIFIED FORMULATION 11/12/2013 88 completed [facility] 15 INFLUENZA, UNSPECIFIED FORMULATION 12/14/2012 88 completed [facility] 15 TD(ADULT) UNSPECIFIED FORMULATION 08/25/2012 139 completed [facility] PNEUMOCOCCAL, UNSPECIFIED FORMULATION 01/07/2012 109 completed [facility], [facility] 15 INFLUENZA, UNSPECIFIED FORMULATION 12/20/2007 88 completed t ol well [facility], [facility] 15 INFLUENZA, UNSPECIFIED FORMULATION 02/25/2007 88 completed [facility] PNEUMOCOCCAL, UNSPECIFIED FORMULATION 02/25/2007 109 completed [facility] INFLUENZA, UNSPECIFIED FORMULATION 04/17/2006 88 completed [facility] Results Combined list of recent chemistry, hematology and other laboratory results going back no more than 15 months from the Department of Defense and Veterans Affairs facilities. Order Name Results Value Reference Range Date Interpretation Specimen Comments Source CBC & DIFF LEUKOCYTES [#/VOLUM E] IN BLOOD BY AUTOMATED COUNT 8.8 K/cmm 3.60 - 11.20 10/07/2019 Specimen Type: BLOOD No comment entered. [facility] CBC & DIFF ERYTHROCYTES [#/VOL UME] IN BLOOD BY AUTOMATED COUNT 4.14 M/ul 4.1 - 5.7 10/07/2019 Specimen Type: [facility]LOOD [facility]FF HEMOGLOBIN [MASS/VOLUME] IN BLOOD 14.7 g/dl 13.1 - 16.8 10/07/2019 Specimen T ype: BLOOD No comment entered. [facility] CBC & DIFF HEMATOCRIT [VOLUME FRACTION] OF BLOOD BY AUTOMATED COUNT 42.3 % 38.2 - 48.4 10/07/2019 Specimen Type: BLOOD No comment entered. [facility] & DIFF MCV [ENTITIC VOLUME] BY A UTOMATED COUNT 102.2 fl 80.1 - 98.5 10/07/2019 H Specimen Type: BLOOD No comment entered. [facility] CBC & DIFF MCH [ENTITIC MASS] BY AUT OMATED COUNT 35.5 pg 27.0 - 34.0 10/07/2019 H Specimen Type: BLOOD No comment entered. [facility] CBC & DIFF MCHC [MASS/VOLUME] BY AUT OMATED COUNT 34.8 g/dl 33.0 - 36.0 10/07/2019 Specimen Type: BLOOD No comment entered. [facility] CBC & DIFF PLATELETS [#/VOLUME ] IN BLOOD BY AUTOMATED COUNT 189 K/cmm 150 - 400 10/07/2019 Specimen Type: BLOOD No comment entered. [facility] CBC & DIFF PLATELET MEAN VOLUM E [ENTITIC VOLUME] IN BLOOD BY AUTOMATED COUNT 9.8 fl 7.5 - 11.2 10/07/2019 Specimen Type: BLOOD No comment entered. [facility] CBC & DIFF ERYTHROCYTE DISTRIB UTION WIDTH [RATIO] BY AUTOMATED COUNT 13.2 % 11.8 - 15.1 10/07/2019 Specimen Type: BLOOD No comment entered. [facility] CBC & DIFF LYMPHOCYTES/100 ULISES KOCYTES IN BLOOD BY AUTOMATED COUNT 23.9 % 10/07/2019 Specimen Type: BLOOD No comment entered. [facility] CBC & DIFF NEUTROPHILS/100 ULISES KOCYTES IN BLOOD BY AUTOMATED COUNT 60.2 % 10/07/2019 Specimen Type: BLOOD No comment entered. [facility] CBC & DIFF MONOCYTES/100 LEUKO CYTES IN BLOOD BY AUTOMATED COUNT 10.4 % 10/07/2019 Specimen Type: BLOOD No comment entered. [facility] CBC & DIFF MONOCYTES [#/VOLUME ] IN BLOOD BY AUTOMATED COUNT 0.9 K/cmm 0.19 - 0.80 10/07/2019 H Specimen Type: BLOOD No comment entered. [facility] CBC & DIFF NEUTROPHILS [#/VOLU ME] IN BLOOD BY AUTOMATED COUNT 5.3 K/cmm 2.10 - 8.00 10/07/2019 Specimen Type: BLOOD No comment entered. [facility] CBC & DIFF EOSINOPHILS [#/VOLU ME] IN BLOOD BY AUTOMATED COUNT 0.4 K/cmm 0.00 - 0.60 10/07/2019 Specimen Type: BLOOD No comment entered. [facility] CBC & DIFF BASOPHILS [#/VOLUME ] IN BLOOD BY AUTOMATED COUNT 0.1 K/cmm 0.00 - 0.20 10/07/2019 Specimen Type: BLOOD No comment entered. [facility] CBC & DIFF EOSINOPHILS/100 ULISES KOCYTES IN BLOOD BY AUTOMATED COUNT 4.2 % 10/07/2019 Specimen Type: BLOOD No comment entered. [facility] CBC & DIFF BASOPHILS/100 LEUKO CYTES IN BLOOD BY AUTOMATED COUNT 0.7 % 10/07/2019 Specimen Type: BLOOD No comment entered. [facility] CBC & DIFF LYMPHOCYTES [#/VOLU ME] IN BLOOD BY AUTOMATED COUNT 2.1 K/cmm 0.77 - 4.50 10/07/2019 Specimen Type: BLOOD No comment entered. [facility] CBC & DIFF IMMATURE GRANULOCYT ES [#/VOLUME] IN BLOOD BY AUTOMATED COUNT 0.05 K/cmm 0.00 - 0.05 10/07/2019 Specimen Type: BLOOD No comment entered. [facility] CBC & DIFF IMMATURE GRANULOCYT ES/100 LEUKOCYTES IN BLOOD BY AUTOMATED COUNT 0.6 % 10/07/2019 Specimen Type: BLOOD No comment entered. [facility] COMPREHENSIVE METABOLIC PANEL CREATININE [MASS/VOLUME] IN SERUM OR PLASMA 1.28 mg/dL 0.7 - 1.3 10/07/2019 Specimen Type: PLASMA No comment entered. [facility] COMPREHENSIVE METABOLIC PANEL UREA NITROGEN [MASS/VOLUME] IN SERUM OR PLASMA 19 mg/dL 9 - 25 10/07/2019 Specimen Type: PLASMA No comment entered. [facility] COMPREHENSIVE METABOLIC PANEL GLUCOSE [MASS/VOLUME] IN SERUM OR PLASMA 103 mg/dL 72 - 99 10/07/2019 H Specimen Type: PLASMA No comment entered. [facility] COMPREHENSIVE METABOLIC PANEL SODIUM [MOLES/VOLUME] IN SERUM OR PLASMA 138 mEq/L 136 - 145 10/07/2019 Specimen Type: PLASMA No comment entered. [facility] COMPREHENSIVE METABOLIC PANEL POTASSIUM [MOLES/VOLUME] IN SERUM OR PLASMA 4.8 mEq/L 3.5 - 5.0 10/07/2019 Specimen Type: PLASMA No comment entered. [facility] COMPREHENSIVE METABOLIC PANEL CALCIUM [MASS/VOLUME] IN SERUM OR PLASMA 9.4 mg/dL 8.4 - 10.4 10/07/2019 Specimen Type: PLASMA No comment entered. [facility] COMPREHENSIVE METABOLIC PANEL PROTEIN [MASS/VOLUME] IN SERUM OR PLASMA 6.9 g/dL 6.0 - 8.6 10/07/2019 Specimen Type: PLASMA No comment entered. [facility] COMPREHENSIVE METABOLIC PANEL ALBUMIN [MASS/VOLUME] IN SERUM OR PLASMA 4.2 g/dl 3.4 - 5.0 10/07/2019 Specimen Type: PLASMA No comment entered. [facility] COMPREHENSIVE METABOLIC PANEL BILIRUBIN.TOTAL [MASS/VOLUME] IN SERUM OR PLASMA 0.6 mg/dL 0.2 - 1.2 10/07/2019 Specimen Type: PLASMA No comment entered. [facility] COMPREHENSIVE METABOLIC PANEL ASPARTATE AMINOTRANSFERASE [ENZYMATIC ACTIVITY/VOLUME] IN SERUM OR PLASMA 21 U/L 5 - 34 10/07/2019 Specimen Type: PLASMA No comment entered. [facility] COMPREHENSIVE METABOLIC PANEL ALANINE AMINOTRANSFERASE [ENZYMATIC ACTIVITY/VOLUME] IN SERUM OR PLASMA 16 U/L 8 - 40 10/07/2019 Specimen Type: PLASMA No comment entered. [facility] COMPREHENSIVE METABOLIC PANEL ANION GAP IN SERUM OR PLASMA 8.8 2019 Specimen T ype: PLASMA No comment entered. [facility] COMPREHENSIVE METABOLIC PANEL CHLORIDE [MOLES/VOLUME] IN SERUM OR PLASMA 104 mEq/L 98 - 107 10/07/2019 Specimen Type: PLASMA No comment entered. [facility] COMPREHENSIVE METABOLIC PANEL "CARBON DIOXIDE, TOTAL [MOLES/VOLUME] IN SERUM OR PLASMA" 25.2 mEq/L 22 - 31 10/07/2019 Specimen Type: PLASMA No comment entered. [facility] COMPREHENSIVE METABOLIC PANEL ALKALINE PHOSPHATASE [ENZYMATIC ACTIVITY/VOLUME] IN SERUM OR PLASMA 102 U/L 40 - 150 10/07/2019 Specimen Type: PLASMA No comment entered. [facility] COMPREHENSIVE METABOLIC PANEL GLOMERULAR FILTRATION RATE/1.73 SQ M.PREDICTED [VOLUME RATE/AREA] IN SERUM OR PLASMA BY CREATININE- BASED FORMULA (MDRD) 54.4 10/07/2019 Specimen Type: PLASMA No comment entered. [facility] LIPID PROFILE(HDL,TRIG,CHOL,LDL) CHOLESTEROL [MASS/VOLUME] IN SERUM OR PLASMA 148 mg/dL 0 - 200 10/07/2019 Specimen Type: PLASMA No comment entered. [facility] LIPID PROFILE(HDL,TRIG,CHOL,LDL) TRIGLYCERIDE [MASS/VOLUME] IN SERUM OR PLASMA 223 mg/dL 0 - 150 10/07/2019 H Specimen Type: PLASMA No comment entered. [facility] LIPID PROFILE(HDL,TRIG,CHOL,LDL) CHOLESTEROL IN HDL [MASS/VOLUME] IN SERUM OR PLASMA 34 mg/dL 10/07/2019 L Specimen Type: PLASMA No comment entered. [facility] LIPID PROFILE(HDL,TRIG,CHOL,LDL) CHOLESTEROL IN LDL [MASS/VOLUME] IN SERUM OR PLASMA BY CALCULATION 69 mg/dL 0 - 99.9 10/07/2019 Specimen Type: PLASMA No comment entered. [facility] PROSTATIC SPECIFIC ANTIGEN(TOTAL) PROSTATE SPECIFIC AG [MASS/VOLUME] IN SERUM OR PLASMA 0.0 ng/mL 0 - 4 10/07/2019 Specimen Type: SERUM No comment entered. [facility] TSH THYROTROPIN [UNITS/VOLUME] IN SE RUM OR PLASMA 3.22 uIU/mL 0.47 - 5.00 10/07/2019 Specimen Type: SERUM No comment entered. [facility] OCCULT BLOOD FIT X1 SCREEN HEMOGLOBIN.GASTROINTESTINAL.LOWER [PRESENCE] IN STOOL BY IMMUNOASSAY --1ST SPECIMEN Negative 0 08/17/2018 Specimen Type: FECES No comment entered. [facility] B-TYPE NATRIURETIC NATRIURETIC PEPTIDE B [MASS/VOLUME] IN SERUM OR PLASMA 111.2 pg/mL 0 - 100 08/06/2018 H Specimen Type: PLASMA No comment entered. [facility] CBC & DIFF LEUKOCYTES [#/VOLUM E] IN BLOOD BY AUTOMATED COUNT 7.4 K/cmm 3.60 - 11.20 08/06/2018 Specimen Type: BLOOD No comment entered. [facility] CBC & DIFF ERYTHROCYTES [#/VOL UME] IN BLOOD BY AUTOMATED COUNT 4.16 M/ul 4.1 - 5.7 08/06/2018 Specimen Type: BLOOD No comment entered. [facility] CBC & DIFF HEMOGLOBIN [MASS/VOLUME] IN BLOOD 14.5 g/dl 13.1 - 16.8 08/06/2018 Specimen T ype: BLOOD No comment entered. [facility] CBC & DIFF HEMATOCRIT [VOLUME FRACTION] OF BLOOD BY AUTOMATED COUNT 42.9 % 38.2 - 48.4 08/06/2018 Specimen Type: BLOOD No comment entered. [facility] CBC & DIFF MCV [ENTITIC VOLUME] BY A UTOMATED COUNT 103.1 fl 80.1 - 98.5 08/06/2018 H Specimen Type: BLOOD No comment entered. [facility] CBC & DIFF MCH [ENTITIC MASS] BY AUT OMATED COUNT 34.9 pg 27.0 - 34.0 08/06/2018 H Specimen Type: BLOOD No comment entered. [facility] CBC & DIFF MCHC [MASS/VOLUME] BY AUT OMATED COUNT 33.8 g/dl 33.0 - 36.0 08/06/2018 Specimen Type: BLOOD No comment entered. [facility] CBC & DIFF PLATELETS [#/VOLUME ] IN BLOOD BY AUTOMATED COUNT 204 K/cmm 150 - 400 08/06/2018 Specimen Type: BLOOD No comment entered. [facility] CBC & DIFF PLATELET MEAN VOLUM E [ENTITIC VOLUME] IN BLOOD BY AUTOMATED COUNT 10.0 fl 7.5 - 11.2 08/06/2018 Specimen Type: BLOOD No comment entered. [facility] CBC & DIFF ERYTHROCYTE DISTRIB UTION WIDTH [RATIO] BY AUTOMATED COUNT 13.6 % 11.8 - 15.1 08/06/2018 Specimen Type: BLOOD No comment entered. [facility] CBC & DIFF LYMPHOCYTES/100 ULISES KOCYTES IN BLOOD BY AUTOMATED COUNT 22.8 % 08/06/2018 Specimen Type: BLOOD No comment entered. [facility] CBC & DIFF NEUTROPHILS/100 ULISES KOCYTES IN BLOOD BY AUTOMATED COUNT 62.8 % 08/06/2018 Specimen Type: BLOOD No comment entered. [facility] CBC & DIFF MONOCYTES/100 LEUKO CYTES IN BLOOD BY AUTOMATED COUNT 10.0 % 08/06/2018 Specimen Type: BLOOD No comment entered. [facility] CBC & DIFF MONOCYTES [#/VOLUME ] IN BLOOD BY AUTOMATED COUNT 0.7 K/cmm 0.19 - 0.80 08/06/2018 Specimen Type: BLOOD No comment entered. [facility] CBC & DIFF NEUTROPHILS [#/VOLU ME] IN BLOOD BY AUTOMATED COUNT 4.7 K/cmm 2.10 - 8.00 08/06/2018 Specimen Type: BLOOD No comment entered. [facility] CBC & DIFF EOSINOPHILS [#/VOLU ME] IN BLOOD BY AUTOMATED COUNT 0.2 K/cmm 0.00 - 0.60 08/06/2018 Specimen Type: BLOOD No comment entered. [facility] CBC & DIFF BASOPHILS [#/VOLUME ] IN BLOOD BY AUTOMATED COUNT 0.1 K/cmm 0.00 - 0.20 08/06/2018 Specimen Type: BLOOD No comment entered. [facility] CBC & DIFF EOSINOPHILS/100 ULISES KOCYTES IN BLOOD BY AUTOMATED COUNT 3.0 % 08/06/2018 Specimen Type: BLOOD No comment entered. [facility] CBC & DIFF BASOPHILS/100 LEUKO CYTES IN BLOOD BY AUTOMATED COUNT 0.9 % 08/06/2018 Specimen Type: BLOOD No comment entered. [facility] CBC & DIFF LYMPHOCYTES [#/VOLU ME] IN BLOOD BY AUTOMATED COUNT 1.7 K/cmm 0.77 - 4.50 08/06/2018 Specimen Type: BLOOD No comment entered. [facility] CBC & DIFF IMMATURE GRANULOCYT ES [#/VOLUME] IN BLOOD BY AUTOMATED COUNT 0.04 K/cmm 0.00 - 0.05 08/06/2018 Specimen Type: BLOOD No comment entered. [facility] CBC & DIFF IMMATURE GRANULOCYT ES/100 LEUKOCYTES IN BLOOD BY AUTOMATED COUNT 0.5 % 08/06/2018 Specimen Type: BLOOD No comment entered. [facility] COMPREHENSIVE METABOLIC PANEL CREATININE [MASS/VOLUME] IN SERUM OR PLASMA 1.29 mg/dL 0.7 - 1.3 08/06/2018 Specimen Type: PLASMA No comment entered. [facility] COMPREHENSIVE METABOLIC PANEL UREA NITROGEN [MASS/VOLUME] IN SERUM OR PLASMA 15 mg/dL 9 - 25 08/06/2018 Specimen Type: PLASMA No comment entered. [facility] COMPREHENSIVE METABOLIC PANEL GLUCOSE [MASS/VOLUME] IN SERUM OR PLASMA 113 mg/dL 72 - 99 08/06/2018 H Specimen Type: PLASMA No comment entered. [facility] COMPREHENSIVE METABOLIC PANEL SODIUM [MOLES/VOLUME] IN SERUM OR PLASMA 138 mEq/L 136 - 145 08/06/2018 Specimen Type: PLASMA No comment entered. [facility] COMPREHENSIVE METABOLIC PANEL POTASSIUM [MOLES/VOLUME] IN SERUM OR PLASMA 4.8 mEq/L 3.5 - 5.0 08/06/2018 Specimen Type: PLASMA No comment entered. [facility] COMPREHENSIVE METABOLIC PANEL CALCIUM [MASS/VOLUME] IN SERUM OR PLASMA 10.1 mg/dL 8.4 - 10.4 08/06/2018 Specimen Type: PLASMA No comment entered. [facility] COMPREHENSIVE METABOLIC PANEL PROTEIN [MASS/VOLUME] IN SERUM OR PLASMA 7.1 g/dL 6.0 - 8.6 08/06/2018 Specimen Type: PLASMA No comment entered. [facility] COMPREHENSIVE METABOLIC PANEL ALBUMIN [MASS/VOLUME] IN SERUM OR PLASMA 4.4 g/dl 3.4 - 5.0 08/06/2018 Specimen Type: PLASMA No comment entered. [facility] COMPREHENSIVE METABOLIC PANEL BILIRUBIN.TOTAL [MASS/VOLUME] IN SERUM OR PLASMA 0.6 mg/dL 0.2 - 1.2 08/06/2018 Specimen Type: PLASMA No comment entered. [facility] COMPREHENSIVE METABOLIC PANEL ASPARTATE AMINOTRANSFERASE [ENZYMATIC ACTIVITY/VOLUME] IN SERUM OR PLASMA 21 U/L 5 - 34 08/06/2018 Specimen Type: PLASMA No comment entered. [facility] COMPREHENSIVE METABOLIC PANEL ALANINE AMINOTRANSFERASE [ENZYMATIC ACTIVITY/VOLUME] IN SERUM OR PLASMA 16 U/L 8 - 40 08/06/2018 Specimen Type: PLASMA No comment entered. [facility] COMPREHENSIVE METABOLIC PANEL ANION GAP IN SERUM OR PLASMA 7.2 2018 L Specimen Type: PLASMA No comment entered. [facility] COMPREHENSIVE METABOLIC PANEL CHLORIDE [MOLES/VOLUME] IN SERUM OR PLASMA 104 mEq/L 98 - 107 08/06/2018 Specimen Type: PLASMA No comment entered. [facility] COMPREHENSIVE METABOLIC PANEL CARBON DIOXIDE, TOTAL [MOLES/VOLUME] IN SERUM OR PLASMA 26.8 mEq/L 22 - 31 08/06/2018 Specimen Type: PLASMA No comment entered. [facility] COMPREHENSIVE METABOLIC PANEL ALKALINE PHOSPHATASE [ENZYMATIC ACTIVITY/VOLUME] IN SERUM OR PLASMA 125 U/L 40 - 150 08/06/2018 Specimen Type: PLASMA No comment entered. [facility] COMPREHENSIVE METABOLIC PANEL GLOMERULAR FILTRATION RATE/1.73 SQ M.PREDICTED [VOLUME RATE/AREA] IN SERUM OR PLASMA BY CREATININE- BASED FORMULA (MDRD) 54.2 08/06/2018 Specimen Type: PLASMA No comment entered. [facility] LIPID PROFILE(HDL,TRIG,CHOL,LDL) CHOLESTEROL [MASS/VOLUME] IN SERUM OR PLASMA 141 mg/dL 0 - 200 08/06/2018 Specimen Type: PLASMA No comment entered. [facility] LIPID PROFILE(HDL,TRIG,CHOL,LDL) TRIGLYCERIDE [MASS/VOLUME] IN SERUM OR PLASMA 181 mg/dL 0 - 150 08/06/2018 H Specimen Type: PLASMA No comment entered. [facility] LIPID PROFILE(HDL,TRIG,CHOL,LDL) CHOLESTEROL IN HDL [MASS/VOLUME] IN SERUM OR PLASMA 41 mg/dL 08/06/2018 Specimen Type: PLASMA No comment entered. [facility] LIPID PROFILE(HDL,TRIG,CHOL,LDL) CHOLESTEROL IN LDL [MASS/VOLUME] IN SERUM OR PLASMA BY CALCULATION 63.8 mg/dL 0 - 99.9 08/06/2018 Specimen Type: PLASMA No comment entered. [facility] Vital Signs Combined list of inpatient and outpatient Vital Signs from [facility] and[facility]or [facility] medical facilities within the last 15 months. The included entries comply with the patient's data sharing authorizations. Vital Sign Value Date Comments Source PAIN 1 08/04 11:26:00 [facility] Encounters Combined list of encounters at Department of Defense and/or Veterans Affairs (VA ) for the last 15 months. Not all VA inpatient encounters are included. The incl uded entries comply with the patient's data sharing authorizations. Location Location Details Encounter Type Encounter Number Reason For Visit Attending Provider ADM Date DC Date Status Disposition Source Outpatient Encounter [id number] _MAPID:[id number] 05/22/2018 KATLYN DONAHUE [facility] Outpatient Encounter [id number] _MAPID:[id number] [facility] [id number] _MAPID:[id number] 08/06/2018 [facility]OUT PATIENT VISIT EST [id number] ICD-10 -CM I51.9 Heart disease, unspecified with Provider Comments: Heart Disease, unspecified FESTUS AUZL 08/06/2018 [facility] Outpatient Encounter [id number] _MAPID:e [id number] 08/10/2018 [facility] 15 Outpatient Encounter [id number] _MAPID:icvYtbbao54 08/27/2018 [facility] Outpatient Encounter [id number] _MAPID:dpiCkhcyj68 08/27/2018 [facility] Outpatient Encounter [id number] _MAPID :endReason9 09/22/2018 KATLYN DONAHUE [facility] Outpatient Encounter [id number] _MAPID:e ndReason8 01/12/2019 [facility] 15 Outpatient Encounter [id number] _MAPID :endReason7 02/03/2019 KATLYN DONAHUE [facility] Outpatient Encounter [id number] _MAPID:e ndReason6 02/05/2019 [facility] 15 Outpatient Encounter [id number] _MAPID :endReason5 03/10/2019 KATLYN DONAHUE [facility] Outpatient Encounter [id number] _MAPID:e ndReason4 04/20/2019 [facility] 15 Outpatient Encounter [id number] _MAPID:e ndReason3 04/22/2019 [facility] 15 Outpatient Encounter [id number] ICD-10 -CM I10. Essential (primary) hypertension with Provider Comments: Benign essential hypertension (SCT [id number]) FESTUS AZUL 08/05/2019 [facility] Outpatient Encounter [id number] _MAPID :endReason1 STAN PÉREZ 10/06/2019 [facility] Procedures No Data Provided for This Section Social History Combined list of available smoking, tobacco, and other social history on record at Department of Defense and/or Veterans Affairs facilities. The included entrie s comply with the patient's data sharing authorizations. Social History Type Response Date Comment Source Tobacco smoking status [facility] VA-TOBACCO USE SHOT COAT TENDER NO 07/22/2019 [facility] History of tobacco use VA-TO BACCO USE MED NO 07/22/2019 [facility] History of tobacco use VA-TO BACCO USE ADVICE 07/22/2019 [facility] History of tobacco use VA-TO BACCO USER EVERY DAY 07/22/2019 [facility] History of tobacco use VA-TO BACCO USE WI 30 MIN OF WAKEUP 07/22/2019 [facility] History of tobacco use VA-TO BACCO USE 30 YEARS OR MORE 07/22/2019 [facility] History of tobacco use VA-TO BACCO USER EVERY DAY 07/03/2018 [facility] History of tobacco use VA-TO BACCO USE WI 30 MIN OF WAKEUP 07/03/2018 [facility] History of tobacco use VA-TO BACCO USE 30 YEARS OR MORE 07/03/2018 [facility] History of tobacco use 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 07/03/2018 [facility] History of tobacco use VA-TO BACCO USE MED NO 07/03/2018 [facility] History of tobacco use VA-TO BACCO USE ADVICE 07/03/2018 [facility] History of tobacco use CURRE NT NON-SMOKER 07/29/2011 [facility] History of tobacco use LIFET [facility] NON-TOBACCO USER 07/29/2011 [facility] History of tobacco use CURRE NT NON-SMOKER 07/24/2010 [facility] History of tobacco use LIFET [facility] NON-TOBACCO USER 07/24/2010 [facility] History of tobacco use CURRE NT NON-SMOKER 07/24/2009 [facility] History of tobacco use LIFET [facility] NON-TOBACCO USER 07/24/2009 [facility] History of tobacco use NON-T OBACCO USER 04/17/2006 [facility] History of tobacco use CURRE NT NON-SMOKER 04/17/2006 [facility] History of tobacco use LIFET [facility] NON-SMOKER 04/17/2006 [facility] History of tobacco use LIFET [facility] NON-TOBACCO USER 04/17/2006 [facility] History of tobacco use NON-S MOKER 04/17/2006 [facility] History of tobacco use CURRE NT NON-SMOKER 11/27/2005 [facility] History of tobacco use LIFET [facility] NON-SMOKER 11/27/2005 [facility] History of tobacco use LIFET [facility] NON-TOBACCO USER 11/27/2005 [facility] History of tobacco use NON-T OBACCO USER 05/31/2003 [facility] History of tobacco use CURRE NT NON-SMOKER 05/31/2003 [facility] History of tobacco use LIFET [facility] NON-SMOKER 05/31/2003 [facility] History of tobacco use LIFET [facility] NON-TOBACCO USER 05/31/2003 [facility] History of tobacco use NON-S MOKER 05/31/2003 [facility] Assessment and Plan No Data Provided for This Section Plan of Care No Data Provided for This Section Family History No Data Provided for This Section Advance Directives No Data Provided for This Section Functional Status No Data Provided for This Section
--- OUTSIDE RECORDS SUMMARY | 2019-10-22 10:29 | XMS REPORT | Encounter Summary ---
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 This section includes the names of all active insurance providers for the amelia washburn Insurance Provider Type of Coverage Plan Name Start of Policy [place] End of Policy Coverage Group Number Member ID Insurance Provider's Telephone N umber Policy Santiago's Name Patient's Relationship to Policy Santiago [place] PREFERRED PROVIDER ORGANIZATION (PPO) FEP STA NDARD PLUS ON Apr 14, 2015 106 [id number] [phone] TENISHA ESCAMILLA PATIENT [place] (FEP) MEDICARE SECONDARY (NO B EXC) FEP SECONDARY Sep 12 2 105 [id number] TENISHA ESCAMILLA PATIENT [place]) MEDIC[place] SECONDARY (NO B EXC) FEP SECONDARY Sep 12 2 105 [id number] TENISHA ESCAMILLA PATIENT BCBS [place] ATTN FEP CLAIMS PREFERRED PROVIDER ORGANIZATION (PPO ) FEP STANDARD PLUS ON Apr 14, 2015 106 [id number] [phone] ANDITENISHA KHALIL PATIENT [place] FEP PREFERRED PROVIDER ORGANIZATION (PPO) FEP STANDA RD PLUS ON Apr 14, 2015 106 [id number] [phone] TENISHA ESCAMILLA PATIENT SAMANTH[place]ARK FEP RX PRESCRIPTION FEPRX Sep 12, 2001 [id number] [phone] TENISHA ESCAMILLA PATIENT CAR[place] FEP([id number]) PRESCRIPTION FEP Sep 12, 2001 [id number] TENISHA ESCAMILLA PATIENT MEDICARE (WNR) MEDICARE (M) PART A Sep 12, 2006 PART A [id number] [phone] ANDI,TENISHA PATIENT MEDICARE (WNR) MEDICARE (M) PART B Sep 12, 2006 PART B [id number] [phone] ANDI,TENISHA PATIENT MEDICARE (WNR) MEDICARE (M) PART A Sep 12, 2006 PART A [id number] [phone] ANDI,TENISHA PATIENT MEDICARE (WNR) MEDICARE (M) PART B Sep 12, 2006 PART B [id number] [phone] ANDI,TENISHA PATIENT MEDICARE (WNR) MEDICARE (M) PART A Sep 12, 2006 PART A [id number] [phone] ANDI,TENISHA PATIENT MEDICARE (WNR) MEDICARE (M) PART B Sep 12, 2006 PART B [id number] [phone] TENISHA ESCAMILLA PATIENT Selected Encounter This section includes the information on record at [place] for the Encounter. Date/Time Encounter Type Encounter Description Reason Provider Source Jan 12, 2019 12:00 AM Outpatient Encounter EVENT (HISTORICAL) [facility] 15 IH Encounter Template Text not used by [place] Assessments - Encounter Diagnoses No Data Provided for This Section Plan of Treatment: Future Appointments (+ 6 months) and Future Tests (+/- 45 day s) The Plan of Treatment section includes future care activities for the patient fr om all [place] treatment facilities. This section includes future appointments and fu ture orders which are active, pending or scheduled. Future Appointments This section includes appointments that were scheduled t o occur 6 months from the date of the Encounter, up to a maximum of 20 appointme nts. The data comes from all [place] treatment facilities. Appointment Date/Time Appointment Type Appointment Facili ty Name Mar 04, 2019 01:30 PM AMBULATORY - NONE [facility] Mar 30, 2019 02:00 PM AMBULATORY - NONE [facility] Surgical Procedures: All associated to the encounter No Data Provided for This Section Lab Results: +/- 30 days of the encounter No Data Provided for This Section Vital Signs: All taken on the encounter date No Data Provided for This Section Immunizations: All administered on the encounter date This section contains immunizations associated to the Encounter. Immunization Series Date Issued Reaction Comments INFLUENZA, UNSPECIFIED FORMULATION Jan 12, 2019 Social History: Smoking Status (Most current) and Tobacco Use (All prior to enco unter date) No Data Provided for This Section Advance Directives: All historical and current No Data Provided for This Section Allergies and Adverse Reactions (ADRs): All historical and current Section Date Range: From patient's date of to the date document was create d. This section includes Allergies and Adverse Reactions (ADR s) on record with [facility] for the patient. The data comes from a ll [place] treatment facilities. It does not list Allergies/ADRs that were removed or entered in error. Some allergies/ADRs may be reported in t Immunization section. Allergen Event Date Event Type Reaction(s) Severity Source No Known Allergies [facility] Medications: VA dispensed (-15 months) and Non-VA Documented (Obtained Outside [facility]) Section Date Range: 1) prescriptions processed by a VA pharmacy in the last 15 m [facility], and 2) all medications recorded in the [place] medical record as "non-VA medic ations". Pharmacy terms refer to [place] pharmacy's work on prescriptions. [place] patient s are advised to take their medications as instructed by their health care team. The data comes from all [place] treatment facilities. Glossary of Pharmacy Terms:Active = A prescription that can be filled at the local [place] pharmacy.Active: On Hold = An active prescription that will not be filled until pharmacy resolves the issue.Active: Susp = An active prescription that is not scheduled to be filled yet.Clinic Order = A medication received during a visit to a [place] clinic or emergency department (currently not available).Discontinued = A prescription stopped by a VA provider. It is no longer available to be filled. = A prescription which is too old to fill. This does not refer to the expiration date of the medication in the container. Non-VA = A medication that came from someplace other than a VA pharmacy. This may be a prescription from either the VA or other providers that was filled outside the [place]. Or, it may be an over the counter (OTC), herbal, dietary supplement or sample medication.Pending = This prescription order has been sent to the Pharmacy for review and is not ready yet. Medication Name and Strength Pharmacy Term Instructions Quantity Or dered Prescription Expires Prescription Number Last Dispense Date Ordering Provider Facility ALBUTEROL SO4 90MCG/ACTUAT (CFC-F) INHL,ORAL,6.7GM INHALE 2 PUFFS BY ORAL INHALATION THREE TIMES A DAY NEEDED FOR BREATHING. SHAKE WELL. RINSE MOUTHPIECE FREQUENTLY TO PREVENT CLOGGING. 3 Aug 07, 2019 [id number] Aug 10, 2018 FESTUS AZUL ALLOPURINOL 100MG TAB No n-VA TAKE ONE TABLET BY MOUTH THREE TIMES A DAY Non-VA Documented by: FESTUS AZUL Docume nted at: [facility] APIXABAN 5MG TAB Non- VA TAKE ONE TABLET BY MOUTH TWO TIMES A DAY Non-VA Documented by: FESTUS AZUL Docume nted at: [facility] ASPIRIN 81MG TAB,EC Non- VA TAKE ONE TABLET BY MOUTH ONCE A DAY Non-VA Documented by: FESTUS AZUL Docume nted at: [facility] ATORVASTATIN CA 80MG TAB Non-VA TAKE ONE- HALF TABLET BY MOUTH AT BEDTIME Non-VA Docume nted by: FESTUS AZUL Docume nted at: [facility] DOXAZOSIN MESYLATE 8MG TAB Non-VA TAKE ONE- HALF TABLET BY MOUTH AT BEDTIME Non-VA Docume nted by: FESTUS AZUL Docume nted at: [facility] FISH OIL CAP/TAB Non- VA 1 CAP/TAB MOUTH ONCE A DAY Non-V A Documented by: FESTUS AZUL Docume nted at: [facility] HYDROCODONE 10MG/ACETAMINOPHEN 325MG TAB Non-VA TAKE ONE TABLET BY MOUTH PRN Non-VA Documented by: FESTUS AZUL Docume nted at: [facility] LEVOTHYROXINE NA 0.05MG TAB (SYNTHROID) Non-VA TAKE ONE TABLET BY MOUTH EVERY MORNING BEFORE MEAL Non-VA Documented by: FESTUS AZUL Docume nted at: [facility] METOPROLOL SUCCINATE 50MG TAB,SA Non-VA TAKE ONE-HALF TABLET BY MOUTH EVERY MORNING Non-VA Documented by: FESTUS AZUL Docume nted at: [facility] MONTELUKAST NA 10MG TAB TAKE ONE TABLET BY MOUTH EVERY EVENING 30 Aug 07, 2019 [id number] August 13, 2018 FESTUS AZUL MULTIVITAMINS CAP/TAB No n-VA TAKE ONE TABLET BY MOUTH ONCE A DAY Non-VA Documented by: FESTUS AZUL Docume nted at: [facility] PANTOPRAZOLE NA 40MG TAB,EC Non-VA TAKE ONE TABLET BY MOUTH ONCE A DAY Non-VA Documented by: MICKEY AVERY Docume nted at: [facility] RANOLAZINE 500MG TAB,SA Non-VA TAKE ONE TABLET BY MOUTH TWO TIMES A DAY Non-VA Docume nted by: MICKEY AVERY Docume nted at: [facility] Problems (Conditions): All historical and current Section Date Range: From patient's date of to the date document was create d. This section includes a list of Problems (Conditions) know n to [facility] for the patient. It includes both active and inacti ve problems (conditions). The data comes from all [facility] treatment facilities. Problem Status Problem Code Date of Onset Date of Resolution Comm ent(s) Provider Source Arthritis * (ICD-9-CM 716.90) Active 716.90 FESTUS GONZALEZ [facility] Benign essential hypertension (SNOMED CT 1759094) Active 9117566 [facility] Bilateral tinnitus (SNOMED CT 1765025697298) Active [id number] BARBIE BAIN Mackenzie [facility] cancer skin, lymph node involvement, one node removed, others ne g. Active 799.9 Jun 23, 2008 Entered By: FESTUS BLANKENSHIP Comment: per [facility] oncology, follow up in 3 months FESTUS AZUL [facility] Chronic back pain (SNOMED CT 529374657) Active 493533019 FESTUS AZUL [facility] Chronic Low Back Pain (ICD-9-CM 724.2) Active 724.2 [facility] colonoscopy done at [facility] 2008 per xin he Active 799. 9 FESTUS AZUL [facility] Coronary arteriosclerosis (SNOMED CT 91653267) Active 414.00 FESTUS AZUL [facility] Hip: arthralgia (pain on rotation, pain in groin) * (ICD-9-C M 716.95) Active 716.95 FESTUS AZUL [facility] Hypothyroidism * (ICD-9-CM 244.9) Active 244.9 FESTUS AZUL 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 Leg swelling symptom (SNOMED CT 905399025) Active 729.81 FESTUS AZUL [facility] LUMB/LUMBOSAC DISC DEGEN Active 722.52 WENDI MCRAE [facility] Neck Pain (ICD-9-CM 723.1) Active 723.1 FESTUS BROWNE [facility] Prostate Cancer (ICD-9-CM 185.) Active 185. FESTUS AZUL [facility] Sciatica * (ICD-9-CM 724.3) Active 724.3 FESTUS DINH [facility] Sensorineural hearing loss, bilateral (SNOMED CT 533996876) Active 443210088 BARBIE BAIN [facility] Radiology Reports: +/- 30 days of the encounter No Data Provided for This Section Pathology Reports: +/- 30 days of the encounter No Data Provided for This Section Encounter Notes: All associated encounter notes No Data Provided for This Section
--- OUTSIDE RECORDS SUMMARY | 2019-10-22 10:29 | XMS REPORT ---
Author Author Department [facility] TENISHA ann Organization Department of [facility] Address [address] [place] [address] Phone Unavailable Care Team Providers Care Chronic Condition Nurse Name Role Phone FESTUS AZUL PCP Unavailable [...] Name Patient's Relationship to Policy Santiago [place] F[place] PREFERRED PROVIDER ORGANIZATION (PPO) FEP STA NDARD PLUS ON Apr 14, 2015 106 [id number] [phone] TENISHA ESCAMILLA PATIENT [place]FE[place]) MEDICARE SECONDARY (NO B EXC) FEP SECONDARY Sep 12 2 105 [id number] TENISHA ESCAMILLA PATIENT [place]) MEDIC[place] SECONDARY (NO B EXC) FEP SECONDARY Sep 12 2 105 [id number] TENISHA ESCAMILLA PATIENT BCBS [place] ATTN FEP CLAIMS PREFERRED PROVIDER ORGANIZATION (PPO ) FEP STANDARD PLUS ON Apr 14, 2015 106 [id number] [phone] TENISHA ESCAMILLA [place] FEP PREFERRED PROVIDER ORGANIZATION (PPO) FEP STANDA RD PLUS ON Apr 14, 2015 106 [id number] [phone] TENISHA ESCAMILLAMARK FEP RX PRESCRIPTION FEPRX Sep 12, 2001 [id number] [phone] TENISHA ESCAMILLA PATIENT [employer] FEP([id number]) PRESCRIPTION FEP Sep 12, 2001 [id number] TENISHA ESCAMILLA PATIENT MEDICARE (WNR) MEDICARE (M) PART A Sep 12, 2006 PART A [id number] 07A [phone] ANDI,TENISHA PATIENT MEDICARE (WNR) MEDICARE (M) PART B Sep 12, 2006 PART B [id number] 07A [phone] ANDI,TENISHA PATIENT MEDICARE (WNR) MEDICARE (M) PART A Sep 12, 2006 PART A [id number] [phone] ANDI,TENISHA PATIENT MEDICARE (WNR) MEDICARE (M) PART B Sep 12, 2006 PART B [id number] [phone] ANDI,TENISHA PATIENT MEDICARE (WNR) MEDICARE (M) PART A Sep 12, 2006 PART A [id number] [phone] TENISHA ESCAMILLA PATIENT MEDICARE (WNR) MEDICARE (M) PART B Sep 12, 2006 PART B [id number] [phone] TENISHA ESCAMILLA PATIENT Selected Encounter This section includes the information on record at [place] for the Encounter. Date/Time Encounter Type Encounter Description Reason Provider Source Apr 22, 2019 08:00 AM Outpatient Encounter ADMIN PAT ACTIVTIES (GARRETT WHEELER) [facility] 15 IHE Encounter Template Text not used by [place] Assessments - Encounter Diagnoses No Data Provided for This Section Plan of Treatment: Future Appointments (+ 6 months) and Future Tests (+/- 45 day s) The Plan of Treatment section includes future care activities for the patient fr om all [place] treatment facilities. This section includes future appointments and fu ture orders which are active, pending or scheduled. Future Appointments This section includes appointments that were scheduled t o occur 6 months from the date of the Encounter, up to a maximum of 20 appointme nts. The data comes from all [place] treatment facilities. Appointment Date/Time Appointment Type Appointment Facili ty Name Aug 05, 2019 11:01 AM [facility] Oct 07, 2019 09:00 AM AMBULATORY - NONE [facility] Surgical Procedures: All associated to the encounter No Data Provided for This Section Lab Results: +/- 30 days of the encounter No Data Provided for This Section Vital Signs: All taken on the encounter date No Data Provided for This Section Immunizations: All administered on the encounter date No Data Provided for This Section Social History: Smoking Status (Most current) and [...] patient. The data comes from a ll [place] treatment facilities. It does not list Allergies/ADRs that were removed or entered in error. Some allergies/ADRs may be reported in t Immunization section. Allergen Event Date Event Type Reaction(s) Severity Source No Known Allergies [facility] Medications: VA dispensed (-15 months) and Non-VA Documented (Obtained Outside [facility]) Section Date Range: 1) prescriptions processed by a [place] pharmacy in the last 15 m [facility], and 2) all medications recorded in the [place] medical record as "non-VA medic ations". Pharmacy terms refer to [place] pharmacy's work on prescriptions. [place] patient s are advised to take their medications as instructed by their health care team. The data comes from all [place] treatment facilities. Glossary of Pharmacy Terms:Active = A prescription that can be filled at the local [place] pharmacy.Active: On Hold = An active prescription that will not be filled until pharmacy resolves the issue.Active: Susp = An active prescription that is not scheduled to be filled yet.Clinic Order = A medication received during a visit to a [place] clinic or emergency department (currently not available).Discontinued [...] other providers that was filled outside the [facility]. Or, it may be an over the [...] TO PREVENT CLOGGING. 3 Aug 07, 2019 [id number] Aug 10, 2018 FESTUS AZUL ALLOPURINOL 100MG TAB No n-VA TAKE ONE TABLET BY MOUTH THREE TIMES A DAY Non-VA Documented by: FESTUS AZULume nted at: [facility] APIXABAN 5MG TAB Non- [place] TAKE ONE TABLET BY MOUTH TWO TIMES A DAY Non-VA Documented by: FESTUS AZULume nted at: [facility] ASPIRIN 81MG TAB,EC Non- VA TAKE ONE TABLET BY MOUTH ONCE A DAY Non-VA Documented by: FESTUS AZULume nted at: [facility] ATORVASTATIN CA 80MG TAB Non-VA TAKE ONE- HALF TABLET BY MOUTH AT BEDTIME Non-VA Docume nted by: FESTUS AZUL nted at: [facility] DOXAZOSIN MESYLATE 8MG TAB Non-VA TAKE ONE- HALF TABLET BY MOUTH AT BEDTIME Non-VA Docume nted by: FESTUS AZULume nted at: [facility] FISH OIL CAP/TAB Non- VA 1 CAP/TAB MOUTH ONCE A DAY Non-V A Documented by: FESTUS AZULume nted at: [facility] HYDROCODONE 10MG/ACETAMINOPHEN 325MG TAB Non-VA TAKE ONE TABLET BY MOUTH PRN Non-VA Documented by: FESTUS AZULume nted at: [facility] LEVOTHYROXINE NA 0.05MG [...] MOUTH EVERY EVENING 30 Aug 07, 2019 [id number] August 13, 2018 FESTUS AZUL MULTIVITAMINS CAP/TAB [...] problems (conditions). The data comes from all [place] treatment facilities. Problem Status Problem Code Date of Onset Date of Resolution Comm ent(s) Provider Source Arthritis * (ICD-9-CM 716.90) Active 716.90 [facility] Benign essential hypertension (SNOMED CT 5692210) Active 6581959 [facility] Bilateral tinnitus (SNOMED CT 8784998906439) Active [id number] BARBIE BAIN [facility] cancer skin, lymph node involvement, one node removed, others ne g. Active 799.9 Jun 23, 2008 Entered By: FESTUS BLANKENSHIP Comment: per [facility] oncology, follow up in 3 months FESTUS AZUL [facility] Chronic back pain (SNOMED CT 934253800) Active 753010032 FESTUS AZUL [facility] Chronic Low Back Pain (ICD-9-CM 724.2) Active 724.2 FESTUS AZUL [facility] colonoscopy done at [facility] [address] quintana, wnl Active 799. 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 FESTUS AZUL [facility] Sciatica * (ICD-9-CM 724.3) Active 724.3 FESTUS DINH [facility] Sensorineural hearing loss, bilateral (SNOMED CT 384762704) Active 773660500 [facility]IAN [facility] Radiology Reports: +/- 30 days of the encounter No Data Provided for This Section Pathology Reports: +/- 30 days of the encounter No Data Provided for This Section Encounter Notes: All associated encounter notes This section contains the clinical notes associated to the Encounter. Date/Time Encounter Note(s) Provider Source Apr 22, 2019 08:00 AM NONVA CONSULT: LOCAL TITLE: COMMUNITY CARE CONSULT RESULTS NOTE WI STANDARD TITLE: NONVA CONSULT DATE OF NOTE: APR 22, 2019@08:00 ENTRY DATE: AUGUST 20, 2019@12:32:09 AUTHOR: MERLE ALAMO EXP COSIGNER: URGENCY: STATUS: COMPLETED The following Non VA Care consult has been completed. See scanned document for report. NON VA Care Consult Results Other: [facility] COMMUNITY CARE-ENT/[facility]/04-22-2019 /es/ MERLE ALAMO AMSA Signed: 08/20/2019 12:33 MERLE ALAMOST. [facility]
--- OUTSIDE RECORDS SUMMARY | 2019-10-22 10:29 | XMS REPORT ---
Author Author Department [facility] TENISHA ann Organization Department of [facility] Address [address] [place] [address] Phone Unavailable Care Team Providers Care Merchandising Director Name Role Phone FESTUS AZUL PCP Unavailable [...] NDARD PLUS ON Apr 14, 2015 106 [id number] [phone] TENISHA ESCAMILLA PATIENT BC BS [place] (FEP) MEDICARE SECONDARY (NO B EXC) FEP SECONDARY Sep 12 2 105 [id number] TENISHA ESCAMILLA PATIENT BC BS [place] (FEP) MEDICARE SECONDARY (NO B EXC) FEP SECONDARY Sep 12 2 105 [id number] TENISHA ESCAMILLA PATIENT BCBS [place] ATTN FEP CLAIMS PREFERRED PROVIDER ORGANIZATION (PPO ) FEP STANDARD PLUS ON Apr 14, 2015 106 [id number] [phone] TENISHA ESCAMILLA [place]BS [place] F[place] PREFERRED PROVIDER ORGANIZATION (PPO) FEP STANDA RD PLUS ON Apr 14, 2015 106 [id number] [phone] TENISHA ESCAMILLAMARK FEP RX PRESCRIPTION FEPRX Sep 12, 2001 [id number] [phone] TENISHA ESCAMILLA PATIENT CAREMARK FEP([id number]) PRESCRIPTION FEP Sep 12, 2001 [id number] TENISHA ESCAMILLA PATIENT MEDICARE (WNR) MEDICARE (M) PART A Sep 12, 2006 PART A [id number] 07A [phone] ANDI,TENISHA PATIENT MEDICARE (WNR) MEDICARE (M) PART B Sep 12, 2006 PART B [id number] 07A [phone] ANDI,TENISHA PATIENT MEDICARE (WNR) MEDICARE (M) PART A Sep 12, 2006 PART A [id number] [phone] ANDI,TENISHA PATIENT MEDICARE (WNR) MEDICARE (M) PART B Sep 12, 2006 PART B [id number] 07A [phone] ANDI,TENISHA PATIENT MEDICARE (WNR) MEDICARE (M) PART A Sep 12, 2006 PART A [id number] [phone] TENISHA ESCAMILLA PATIENT MEDICARE (WNR) MEDICARE (M) PART B Sep 12, 2006 PART B [id number] [phone] TENISHA ESCAMILLA PATIENT Selected Encounter This section includes the information on record at [place] for the Encounter. Date/Time Encounter Type Encounter Description Reason Provider Source Apr 20, 2019 08:00 AM Outpatient Encounter ADMIN PAT ACTIVTIES (GARRETT WHEELER) [facility], VIS 15 IHE Encounter Template Text not used by [place] Assessments - Encounter Diagnoses No Data Provided for This Section Plan of Treatment: Future Appointments (+ 6 months) and Future Tests (+/- 45 day s) The Plan of Treatment section includes future care activities for the patient fr om all [place] treatment facilities. This section includes future appointments and fu ture orders which are active, pending or scheduled. Future Appointments This section includes appointments that were scheduled t o occur 6 months from the date of the Encounter, up to a maximum of 20 appointme nts. The data comes from all [place] treatment facilities. Appointment Date/Time Appointment Type Appointment Facili ty Name Aug 05, 2019 11:01 AM AMBULATORY - MEDICINE [facility] Oct 07, 2019 09:00 AM AMBULATORY - NONE [facility] Surgical Procedures: All associated to the encounter [...] patient. The data comes from a ll [place] treatment facilities. It does not list Allergies/ADRs that were removed or entered in error. Some allergies/ADRs may be reported in t Immunization section. Allergen Event Date Event Type Reaction(s) Severity Source No Known Allergies MARK WILLIS [facility] Medications: VA dispensed (-15 months) and Non-VA Documented (Obtained Outside [facility]) Section Date Range: 1) prescriptions processed by a VA pharmacy in the last 15 m [facility], and 2) all medications recorded in the [place] medical record as "non-VA medic ations". Pharmacy terms refer to [place] pharmacy's work on prescriptions. [place] patient s are advised to take their medications as instructed by their health care team. The data comes from all [place] treatment facilities. Glossary of Pharmacy Terms:Active = A prescription that can be filled at the local [place] pharmacy.Active: On Hold = An active prescription that will not be filled until pharmacy resolves the issue.Active: Susp = An active prescription that is not scheduled to be filled yet.Clinic Order = A medication received during a visit to a [place] clinic or emergency department (currently not available).Discontinued [...] TO PREVENT CLOGGING. 3 Aug 07, 2019 [id number] Aug 10, 2018 FESTUS AZUL ALLOPURINOL 100MG [...] MOUTH EVERY EVENING 30 Aug 07, 2019 [id number] August 13, 2018 FESTUS AZUL MULTIVITAMINS CAP/TAB [...] nted by: MICKEY AVERY Docume nted at: [facility] Problems (Conditions): All historical and current Section Date Range: From patient's date of to the date document was create d. This section includes a list of Problems (Conditions) know n to [facility] for the patient. It includes both active and inacti ve problems (conditions). The data comes from all [place] treatment facilities. Problem Status Problem Code Date of Onset Date of Resolution Comm ent(s) Provider Source Arthritis * (ICD-9-CM 716.90) Active 716.90 [facility] Benign essential hypertension (SNOMED CT 0766731) Active 2027602 [facility] AZUL [facility] Bilateral tinnitus (SNOMED CT 0855070134137) Active [id number] BARBIE BAIN [facility] cancer skin, lymph node involvement, one node removed, others ne g. Active 799.9 Jun 23, 2008 Entered By: FESTUS BLANKENSHIP Comment: per [facility] oncology, follow up in 3 months FESTUS AZUL [facility] Chronic back pain (SNOMED CT 160435564) Active 191899554 FESTUS AZUL [facility] Chronic Low Back Pain (ICD-9-CM 724.2) Active 724.2 FESTUS AZUL [facility] colonoscopy done at [facility] [address] quintana, w[facility] Active 799. 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 FESTUS AZUL [facility] Sciatica * (ICD-9-CM 724.3) Active 724.3 FESTUS DINH [facility] Sensorineural hearing loss, bilateral (SNOMED CT 484838579) Active [id number] BARBIE BAIN [facility] Radiology Reports: +/- 30 days of the encounter No Data Provided for This Section Pathology Reports: +/- 30 days of the encounter No Data Provided for This Section Encounter Notes: All associated encounter notes This section contains the clinical notes associated to the Encounter. Date/Time Encounter Note(s) Provider Source May 07, 2019 02:44 PM NONVA CONSULT: LOCAL TITLE: COMMUNITY CARE CONSULT RESULTS NOTE WI STANDARD TITLE: NONVA CONSULT DATE OF NOTE: MAY 07, 2019@14:44 ENTRY DATE: MAY 07, 2019@14:45:12 AUTHOR: MERLE ALAMO COSIGNER: URGENCY: STATUS: COMPLETED The following Non VA Care consult has been completed. See scanned document for report. NON VA Care Consult Results Audiology Comment: [facility]-AUDIO/[facility]/04-20-19 /pascual/ MERLE ALAMO AMS Signed: 05/07/2019 14:46 MERLE ALAMO [facility]
--- OUTSIDE RECORDS SUMMARY | 2019-10-22 10:29 | XMS REPORT | Encounter Summary ---
Author Author Department of [facility] rsTENISHA Organization Department of [facility] Address [address] [place] [address] Phone Unavailable Care Team Providers Care Res Habilitation Assistant Name Role Phone FESTUS AZUL PCP Unavailable [...] NDARD PLUS ON Apr 14, 2015 106 [id number] [phone] TENISHA ESCAMILLA PATIENT [place] (FE[place]) MEDICARE SECONDARY (NO B EXC) FEP SECONDARY Sep 12 2 105 [id number] TENISHA ESCAMILLA PATIENT [place] BS [place] (FEP) MEDICARE SECONDARY (NO B EXC) FEP SECONDARY Sep 12 2 105 [id number] TENISHA ESCAMILLA PATIENT BCBS [place] ATTN FEP CLAIMS PREFERRED PROVIDER ORGANIZATION (PPO ) FEP STANDARD PLUS ON Apr 14, 2015 106 [id number] [phone] ANDI,TENISHA PATIENT [place] FEP PREFERRED PROVIDER ORGANIZATION (PPO) FEP STANDA RD PLUS ON Apr 14, 2015 106 [id number] [phone] TENISHA ESCAMILLAMARK FEP RX PRESCRIPTION FEPRX Sep 12, 2001 [id number] [phone] TENISHA ESCAMILLA PATIENT CAREMARK FEP([id number]) PRESCRIPTION FEP Sep 12, 2001 [id number] TENISHA ESCAMILLA PATIENT MEDICARE (WNR) MEDICARE (M) PART A Sep 12, 2006 PART A [id number] 07A [phone] ANDI,TENISHA PATIENT MEDICARE (WNR) MEDICARE (M) PART B Sep 12, 2006 PART B [id number] 07A [phone] ANDI,TENISHA PATIENT MEDICARE (WNR) MEDICARE (M) PART A Sep 12, 2006 PART A [id number] 07A [phone] ANDI,TENISHA PATIENT MEDICARE (WNR) MEDICARE (M) PART B Sep 12, 2006 PART B [id number] 07A [phone] ANDI,TENISHA PATIENT MEDICARE (WNR) MEDICARE (M) PART A Sep 12, 2006 PART A [id number] [phone] ANDI,TENISHA PATIENT MEDICARE (WNR) MEDICARE (M) PART B Sep 12, 2006 PART B [id number] [phone] TENISHA ESCAMILLA PATIENT Selected Encounter This section includes the information on [place] at [place] for the Encounter. Date/Time Encounter Type Encounter Description Reason Provider Source Oct 06, 2019 03:37 PM Outpatient Encounter ADMIN PAT ACTIVTIES (MAS NONCT) [facility] Encounter Template Text not used by [place] Assessments - Encounter Diagnoses No Data Provided for This Section Plan of Treatment: Future Appointments (+ 6 months) and Future Tests (+/- 45 day s) The Plan of Treatment section includes future care activities for the patient fr om all [place] treatment facilities. This section includes future appointments and fu ture orders which are active, pending or scheduled. Future Appointments This section includes appointments that were scheduled t o occur 6 months from the date of the Encounter, up to a maximum of 20 appointme nts. The data comes from all [place] treatment facilities. Appointment Date/Time Appointment Type Appointment Facili ty Name Oct 07, 2019 09:00 AM AMBULATORY - NONE [facility] Surgical Procedures: All associated to the encounter No Data Provided for This Section Lab Results: +/- 30 days of the encounter This section includes the Chemistry and Hematology Lab R esults on record with [facility] for the patient. Radiology Reports and Pathology Report s are provided separately, in subsequent sections. Lab Results This section contains the Chemistry/Hematology Results jessika t were resulted 30 days before or 30 days after the date of the Encounter. Date/Time Source Result Type Result - Unit Interpretation Reference Range Comment Oct 07, 2019 08:52 AM [facility] CBC & DIFF Specimen Type: BLOOD No comment entered. WBC 8.8 K/cmm 3.60-11.20 RBC 4.14 M/ul 4.1-5.7 HGB 14.7 g/dl 13.1-16.8 HCT 42.3 % 38.2-48.4 MCV 102.2 fl H 80.1-98.5 MCH 35.5 pg H 27.0-34.0 MCHC 34.8 g/dl 33.0-36.0 PLATELET COUNT 189 K/cmm 150-400 MPV 9.8 fl 7.5-11.2 RDW 13.2 % 11.8-15.1 LYMPHOCYTES, AUTO% 23.9 % NEUTROPHILS, AUTO % 60.2 % MONOCYTES, AUTO% 10.4 % MONOCYTES, ABSOLUTE 0.9 K/cmm H 0.19-0.80 NEUTROPHILS, ABSOLUTE 5.3 K/cmm 2.10-8.0 0 EOSINOPHILS, ABSOLUTE 0.4 K/cmm 0.00-0.6 0 BASOPHILS, ABSOLUTE 0.1 K/cmm 0.00-0.20 EOSINOPHILS, AUTO% 4.2 % BASOPHILS, AUTO% 0.7 % LYMPHOCYTES, ABSOLUTE 2.1 K/cmm 0.77-4.5 0 IMMATURE GRANS, ABSOLUTE 0.05 K/cmm 0.00 -0.05 IMMATURE GRANS, AUTO % 0.6 % Oct 07, 2019 08:52 AM [facility] COMPREHENSIVE METABOLIC PA DANIEL Specimen Type: PLASMA No comment entered. *CREATININE 1.28 mg/dL 0.7-1.3 UREA NITROGEN mg/dL 19 mg/dL 9-25 GLUCOSE 103 mg/dL H 72-99 SODIUM 138 mEq/L 136-145 POTASSIUM 4.8 mEq/L 3.5-5.0 CALCIUM (mg/dL) 9.4 mg/dL 8.4-10.4 PROTEIN,TOTAL 6.9 g/dL 6.0-8.6 ALBUMIN 4.2 g/dl 3.4-5.0 TOTAL BILIRUBIN 0.6 mg/dL 0.2-1.2 ASPARTATE TRANSAMINASE 21 U/L 5-34 ALANINE AMINOTRANSFERASE 16 U/L 8-40 ANION GAP 8.8 8-16 CHLORIDE 104 mEq/L 98-107 CO2 25.2 mEq/L 22-31 ALKALINE PHOSPHATASE 102 U/L 40-150 EGFR 54.4 Oct 07, 2019 08:52 AM [facility] LIPID PROFILE(HDL,TRIG,CHO L,LDL) Specimen Type: PLASMA No comment entered. CHOLESTEROL 148 mg/dL 0-200 TRIGS 223 mg/dL H 0-150 HDL-CHOLESTEROL 34 mg/dL L >40 LDL (CALC) 69 mg/dL 0-99.9 Oct 07, 2019 08:52 AM [facility] PROSTATIC SPECIFIC ANTIGEN (TOTAL) Specimen Type: SERUM No comment entered. PROSTATIC SPECIFIC ANTIGEN(TOTAL) 0.0 ng/mL 0-4 Oct 07, 2019 08:52 AM [facility] TSH Specimen Type: SERUM No comment entered. TSH 3.22 uIU/mL 0.47-5.00 Vital Signs: All taken on the encounter date No Data Provided for This Section Immunizations: All administered on the encounter date No Data Provided for This Section Social History: Smoking Status (Most current) and Tobacco Use (All prior to enco unter date) This section includes the most current, and the historical, smoking and tobacco- related health factors from the [place] facility where the Encounter took place. Current Smoking Status This section includes the most current smoking, or tobacco -related health factor, from the [place] facility where the Encounter took place. Date/Time Current Smoking Status Comment Facility Jul 22, 2019 08:53 AM VA-TOBACCO USE CLINICAL TRANSFORMATION SPECIALIST NO [facility] Tobacco Use History This section includes a history of the smoking, or tobacco -related health factors, that were collected on or before the date of the Encoun ter. The data comes from the [place] facility where the Encounter took place. Date/Time Smoking Status/Tobacco Use Comment [facility] ity Jul 22, 2019 08:53 AM VA-TOBACCO USE ADVICE [facility] Jul 22, 2019 08:53 AM VA-TOBACCO USE CLINICAL TRANSFORMATION SPECIALIST NO [facility] Jul 22, 2019 08:53 AM VA-TOBACCO USE MED NO [facility] Jul 22, 2019 08:53 AM VA-TOBACCO USE WI 30 MIN OF WAKEUP [facility] Jul 22, 2019 08:53 AM VA-TOBACCO USER EVERY DAY [facility] Jul 03, 2018 02:29 PM VA-TOBACCO USE 30 YEARS OR MORE [facility] Jul 03, 2018 02:29 PM VA-TOBACCO USE ADVICE [facility] Jul 03, 2018 02:29 PM VA-TOBACCO USE CLINICAL TRANSFORMATION SPECIALIST NO [facility] Jul 03, 2018 02:29 PM VA-TOBACCO USE MED NO [facility] Jul 03, 2018 02:29 PM VA-TOBACCO USE [place] 30 MIN OF WAKEUP [facility] Jul 03, 2018 02:29 PM VA-TOBACCO USER EVERY DAY [facility] Jul 29, 2011 09:45 AM CURRENT NON-SMOKER [facility] Jul 29, 2011 09:45 AM LIFETIME NON-TOBACCO USER [facility] Jul 24, 2010 11:09 AM CURRENT NON-SMOKER [facility] Jul 24, 2010 11:09 AM LIFETIME NON-TOBACCO USER [facility] Jul 24, 2009 11:19 AM CURRENT NON-SMOKER [facility] Jul 24, 2009 11:19 AM LIFETIME NON-TOBACCO USER [facility] Apr 17, 2006 11:10 AM CURRENT NON-SMOKER [facility] Apr 17, 2006 11:10 AM LIFETIME NON-SMOKER [facility] Apr 17, 2006 11:10 AM LIFETIME NON-TOBACCO USER [facility] Apr 17, 2006 11:10 AM NON-SMOKER [facility] Apr 17, 2006 11:10 AM NON-TOBACCO USER [facility] Nov 27, 2005 01:58 PM CURRENT NON-SMOKER [facility] Nov 27, 2005 01:58 PM LIFETIME NON-SMOKER [facility] Nov 27, 2005 01:58 PM LIFETIME NON-TOBACCO USER [facility] May 31, 2003 08:30 AM CURRENT NON-SMOKER [facility] May 31, 2003 08:30 AM LIFETIME NON-SMOKER [facility] May 31, 2003 08:30 AM LIFETIME NON-TOBACCO USER [facility] May 31, 2003 08:30 AM NON-SMOKER [facility] May 31, 2003 08:30 AM NON-TOBACCO USER [facility] Advance Directives: All historical and current No Data Provided for This Section Allergies and Adverse Reactions (ADRs): All historical and current Section Date Range: From patient's date of to the date document was create d. This section includes Allergies and Adverse Reactions (ADR s) on record with [place] for the patient. The data comes from a ll [place] treatment facilities. It does not list Allergies/ADRs that were removed or entered in error. Some allergies/ADRs may be reported in t he Immunization section. Allergen Event Date Event Type Reaction(s) Severity Source No Known Allergies MARK WILLIS [facility] Medications: VA dispensed (-15 months) and Non-VA Documented (Obtained Outside A) Section Date Range: 1) prescriptions processed by a VA pharmacy in the last 15 m [facility], and 2) all medications recorded in the [place] medical record as "non-VA medic ations". Pharmacy terms refer to [place] pharmacy's work on prescriptions. [place] patient s are advised to take their medications as instructed by their health care team. The data comes from all [place] treatment facilities. Glossary of Pharmacy Terms:Active = A prescription that can be filled at the local [place] pharmacy.Active: On Hold = An active prescription that will not be filled until pharmacy resolves the issue.Active: Susp = An active prescription that is not scheduled to be filled yet.Clinic Order = A medication received during a visit to a [place] clinic or emergency department (currently not available).Discontinued [...] may be a prescription from either the [place] or other providers that was filled outside the [place]. Or, it may be an over the [...] TO PREVENT CLOGGING. 3 Aug 07, 2019 [id number] Aug 10, 2018 FESTUS AZUL ALLOPURINOL 100MG [...] BEDTIME Non-VA Docume nted by: FESTUS AZUL Docmushtaq nted at: [facility] DOXAZOSIN MESYLATE 8MG TAB Non-VA TAKE ONE- HALF TABLET BY MOUTH AT BEDTIME Non-VA Docume nted by: FESTUS AZUL Docmushtaq nted at: [facility] FISH OIL CAP/TAB Non- VA 1 CAP/TAB MOUTH ONCE A DAY Non-V A Documented by: FESTUS AZUL nted at: [facility] [employer] HYDROCODONE 10MG/ACETAMINOPHEN 325MG TAB Non-VA TAKE ONE TABLET BY MOUTH PRN Non-VA Documented by: FESTUS AZUL nted at: [facility] LEVOTHYROXINE NA 0.05MG TAB (SYNTHROID) Non-VA TAKE ONE TABLET BY MOUTH EVERY MORNING BEFORE MEAL Non-VA Documented by: FESTUS AZUL nted at: [facility] METOPROLOL SUCCINATE 50MG TAB,SA Non-VA TAKE ONE-HALF TABLET BY MOUTH EVERY MORNING Non-VA Documented by: FESTUS AZULume nted at: [facility] [employer] MONTELUKAST NA 10MG TAB TAKE ONE TABLET BY MOUTH EVERY EVENING 30 Aug 07, 2019 [id number] August 13, 2018 FESTUS AZUL MULTIVITAMINS CAP/TAB No n-VA TAKE ONE TABLET BY MOUTH ONCE A DAY Non-VA Documented by: FESTUS AZUL nted at: [facility] PANTOPRAZOLE NA 40MG [...] problems (conditions). The data comes from all [place] treatment facilities. Problem Status Problem Code Date of Onset Date of Resolution Comm ent(s) Provider Source Arthritis * (ICD-9-CM 716.90) Active 716.90 FESTUS GONZALEZ [facility] Benign essential hypertension (SNOMED CT 0181486) Active 0181470 FESTUS AZUL [facility] Bilateral tinnitus (SNOMED CT 6891738138233) Active [id number] BARBIE BAIN [facility] cancer skin, lymph node involvement, one node removed, others ne g. Active 799.9 Jun 23, 2008 Entered By: FESTUS BLANKENSHIP Comment: per [facility] oncology, follow up in 3 months FESTUS AZUL [facility] Chronic back pain (SNOMED CT 526743226) Active 880848968 FESTUS AZUL [facility] Chronic Low Back Pain (ICD-9-CM 724.2) Active 724.2 FESTUS AZUL [facility] colonoscopy done at [facility] 2007 per xin he Active 799. 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 FESTUS AZUL [facility] Sciatica * (ICD-9-CM 724.3) Active 724.3 FESTUS DINH [facility] Sensorineural hearing loss, bilateral (SNOMED CT 701287347) Active 438601604 [facility]AIN [facility] Radiology Reports: +/- 30 days of the encounter No Data Provided for This Section Pathology Reports: +/- 30 days of the encounter No Data Provided for This Section Encounter Notes: All associated encounter notes This section contains the clinical notes associated to the Encounter. Date/Time Encounter Note(s) Provider Source Oct 06, 2019 03:37 PM ADMINISTRATIVE NOTE: LOCAL TITLE: [place]-COVID-19 SCREENING STANDARD TITLE: ADMINISTRATIVE NOTE DATE OF NOTE: OCT 06, 2019@15:37 ENTRY DATE: OCT 06, 2019@15:37:45 AUTHOR: STAN PÉREZ EXP COSIGNER: URGENCY: STATUS: COMPLETED Coronavirus Disease 2019 (COVID-19) Screen The patient reports that they have not been diagnosed with COVID-19. The patient reports that they are not waiting for the results of a COVID-19 lab test. The patient reports that they do not have a fever. The patient reports that they do not have a new or worsening cough or shortness of breath. The patient reports they do not have any cold or flu-like symptoms. The patient reports they do not have any new onset of diarrhea, nausea or vomiting. The patient reports they do not have any new onset of headache, loss of taste or loss of smell. Result: Screen is negative. PT was screened as well. she stated she will be attending his lab apt with pt d/t him being hard of hearing. 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
--- OUTSIDE RECORDS SUMMARY | 2019-10-22 10:29 | XMS REPORT | Encounter Summary ---
Author Author Department of [facility] TENISHA ann Organization Department of [facility] Address [address] [place] [address] Phone Unavailable Care Team Providers Care Windows Software Developer Name Role Phone FESTUS AZUL PCP Unavailable [...] NDARD PLUS ON Apr 14, [phone] [id number] [phone] TENISHA ESCAMILLA PATIENT [place] (FEP) MEDICARE SECONDARY (NO B EXC) FEP SECONDARY Sep 12 2 105 [id number] TENISHA ESCAMILLA PATIENT [place] (FE[place]) MEDICARE SECONDARY (NO B EXC) FEP SECONDARY Sep 12 2 105 [id number] TENISHA ESCAMILLA PATIENT BCBS [place] ATTN FEP CLAIMS PREFERRED PROVIDER ORGANIZATION (PPO ) FEP STANDARD PLUS ON Apr 14, 2015 106 [id number] [phone] TENISHA ESCAMILLA PATIENT [place] FEP PREFERRED PROVIDER ORGANIZATION (PPO) FEP STANDA RD PLUS ON Apr 14, 2015 106 [id number] [phone] TENISHA ESCAMILLA PATIENT [place] FEP RX PRESCRIPTION FEPRX Sep 12, 2001 [id number] [phone] TENISHA ESCAMILLA PATIENT [employer] FEP([id number]) PRESCRIPTION FEP Sep 12, 2001 [id number] TENISHA ESCAMILLA PATIENT MEDICARE (WNR) MEDICARE (M) PART A Sep 12, 2006 PART A [id number] [phone] ANDI,TENISHA PATIENT MEDICARE (WNR) MEDICARE (M) PART B Sep 12, 2006 PART B [id number] [phone] ANDI,TENISHA PATIENT MEDICARE (WNR) MEDICARE (M) PART A Sep 12, 2006 PART A [id number] [phone] ANDI,TENISHA PATIENT MEDICARE (WNR) MEDICARE (M) PART B Sep 12, 2006 PART B [id number] [phone] ANDI,TENISHA PATIENT MEDICARE (WNR) MEDICARE (M) PART A Sep 12, 2006 PART A [id number] [phone] ANDI,TENISHA PATIENT MEDICARE (WNR) MEDICARE (M) PART B Sep 12, 2006 PART B [id number] [phone] TENISHA ESCAMILLA PATIENT Selected Encounter This section includes the information on record at [place] for the Encounter. Date/Time Encounter Type Encounter Description Reason Provider Source Aug 05, 2019 11:01 AM Outpatient Encounter TELEPHONE PRIMARY CAR E ICD-10-CM I10. Essential (primary) hypertension with Provider Comments: Benign essential hypertension (SCT [id number]) FESTUS AZUL [facility] IHE Encounter Template Text not used by VA Assessments - Encounter Diagnoses This section includes the primary and secondary diag noses documented for the Encounter. Date/Time Primary/Secondary Diagnosis Diagnosis Name Provider Source Aug 05, 2019 11:01 AM PRIMARY Essential (primary) hypertension [facility] Aug 05, 2019 11:01 AM PRIMARY Essential (primary) hypertension [facility] Aug 05, 2019 11:01 AM PRIMARY Essential (primary) hypertension [facility] Plan of Treatment: Future Appointments (+ 6 months) and Future Tests (+/- 45 day s) The Plan of Treatment section includes future care activities for the patient fr om all [place] treatment facilities. This section includes future appointments and fu ture orders which are active, pending or scheduled. Future Appointments This section includes appointments that were scheduled t o occur 6 months from the date of the Encounter, up to a maximum of 20 appointme nts. The data comes from all [place] treatment facilities. Appointment Date/Time Appointment Type Appointment Facili ty Name Oct 07, 2019 09:00 AM AMBULATORY - NONE [facility] Surgical Procedures: All associated to the encounter No Data Provided for This Section Lab Results: +/- 30 days of the encounter No Data Provided for This Section Vital Signs: All taken on the encounter date This section contains inpatient and outpatient Vital Signs collected on the date of the Encounter. Date/Time Temperature Pulse Blood Pressure Respiratory Rate SP02 Pa in Height Weight Body Mass Index Source Aug 05, 2019 11:26 AM 1 [facility] Aug 05, 2019 10:56 AM 3 [facility] Immunizations: All administered on the encounter date No Data Provided for This Section Social History: Smoking Status (Most current) and Tobacco Use (All prior to enco unter date) This section includes the most current, and the historical, smoking and tobacco- related health factors from the VA facility where the Encounter took place. Current Smoking Status This section includes the most current smoking, or tobacco -related health factor, from the VA facility where the Encounter took place. Date/Time Current Smoking Status Comment Facility Jul 22, 2019 08:53 AM VA-TOBACCO USE CLUB MANAGER NO [facility] Tobacco Use History This section includes a history of the smoking, or tobacco -related health factors, that were collected on or before the date of the Encoun ter. The data comes from the [place] facility where the Encounter took place. Date/Time Smoking Status/Tobacco Use Comment Facil ity Jul 22, 2019 08:53 AM VA-TOBACCO USE ADVICE [facility] Jul 22, 2019 08:53 AM VA-TOBACCO USE CLUB MANAGER NO [facility] Jul 22, 2019 08:53 AM VA-TOBACCO USE MED NO [facility] Jul 22, 2019 08:53 AM VA-TOBACCO USE WI 30 MIN OF WAKEUP P [facility] Jul 22, 2019 08:53 AM VA-TOBACCO USER EVERY DAY [facility] Jul 03, 2018 02:29 PM VA-TOBACCO USE 30 YEARS OR MORE [facility] Jul 03, 2018 02:29 PM VA-TOBACCO USE ADVICE [facility] Jul 03, 2018 02:29 PM VA-TOBACCO USE CLUB MANAGER NO [facility] Jul 03, 2018 [...] the patient. The data comes from a [facility] treatment facilities. It does not list Allergies/ADRs that were removed or entered in error. Some allergies/ADRs may be reported in t he Immunization section. Allergen Event Date Event Type Reaction(s) Severity Source No Known Allergies [facility] Medications: VA dispensed (-15 months) and Non-VA Documented (Obtained Outside V A) Section Date Range: 1) prescriptions processed by a VA pharmacy in the last 15 m [facility], and 2) all medications recorded in the [place] medical record as "non-VA medic ations". Pharmacy terms refer to [place] pharmacy's work on prescriptions. VA patient s are advised to take their medications as instructed by their health care team. The data comes from all [place] treatment facilities. Glossary of Pharmacy Terms:Active = A prescription that can be filled at the local [place] pharmacy.Active: On Hold = An active prescription that will not be filled until pharmacy resolves the issue.Active: Susp = An active prescription that is not scheduled to be filled yet.Clinic Order = A medication received during a visit to a [place] clinic or emergency department (currently not available).Discontinued [...] may be a prescription from either the [place] or other providers that was filled outside the [place]. Or, it may be an over the [...] TO PREVENT CLOGGING. 3 Aug 07, 2019 [id number] Aug 10, 2018 FESTUS AZUL [facility] ALLOPURINOL 100MG TAB No n-VA TAKE ONE TABLET BY MOUTH THREE TIMES A DAY Non-VA Documented by: FESTUS AZUL Docume nted at: [facility] APIXABAN 5MG TAB Non- VA TAKE ONE TABLET BY MOUTH TWO TIMES A DAY Non-VA Documented by: FESTUS AZULume nted at: [facility] ASPIRIN 81MG TAB,EC Non- VA TAKE ONE TABLET BY MOUTH ONCE A DAY Non-VA Documented by: FESTUS AZULume nted at: [facility] ATORVASTATIN CA 80MG TAB Non-VA TAKE ONE- HALF TABLET BY MOUTH AT BEDTIME Non-VA Docume nted by: FESTUS AZLU Docume nted at: [facility] DOXAZOSIN MESYLATE [...] MORNING BEFORE MEAL Non-VA Documented by: FESTUS AZULume nted at: [facility] METOPROLOL SUCCINATE 50MG TAB,SA Non-VA TAKE ONE-HALF TABLET BY MOUTH EVERY MORNING Non-VA Documented by: FESTUS AZULume nted at: [facility] MONTELUKAST NA 10MG TAB TAKE ONE TABLET BY MOUTH EVERY EVENING 30 Aug 07, 2019 [id number] August 13, 2018 FESTUS AZUL MULTIVITAMINS CAP/TAB No n-VA TAKE ONE TABLET BY MOUTH ONCE A DAY Non-VA Documented by: FESTUS AZULume nted at: [facility] PANTOPRAZOLE NA 40MG [...] list of Problems (Conditions) know n to [place] for the patient. It includes both active and inacti ve problems (conditions). The data comes from all [place] treatment facilities. Problem Status Problem Code Date of Onset Date of Resolution Comm ent(s) Provider Source Arthritis * (ICD-9-CM 716.90) Active 716.90 FESTUS [facility]ONZALEZ [facility] Benign essential hypertension (SNOMED CT 2080319) Active 0470503 FESTUS AZUL [facility] Bilateral tinnitus (SNOMED CT 7502055422851) Active [id number] BAR[facility] B[facility] cancer skin, lymph node involvement, one node removed, others ne g. Active 799.9 Jun 23, 2008 Entered By: FESTUS BLANKENSHIP Comment: per [facility] oncology, follow up in 3 months FESTUS AZUL [facility] Chronic back pain (SNOMED CT 967404267) Active 704523641 FESTUS AZUL [facility] Chronic Low Back Pain (ICD-9-CM 724.2) Active 724.2 FESTUS AZUL [facility] colonoscopy done at [facility] 2007 per xin he Active 799. 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 FESTUS AZUL [facility] Sciatica * (ICD-9-CM 724.3) Active 724.3 FESTUS DINH [facility] Sensorineural hearing loss, bilateral (SNOMED CT 921280749) Active [id number] [facility]BIE BAIN [facility] Radiology Reports: +/- 30 days of the encounter No Data Provided for This Section Pathology Reports: +/- 30 days of the encounter No Data Provided for This Section Encounter Notes: All associated encounter notes This section contains the clinical notes associated to the Encounter. Date/Time Encounter Note(s) Provider Source Aug 05, 2019 11:29 AM MEDICATION MGT NOTE: LOCAL TITLE: WI-MEDICATION RECONCILIATION (BP,O) STANDARD TITLE: MEDICATION MGT NOTE DATE OF NOTE: AUG 05, 2019@11:29 ENTRY DATE: AUG 05, 2019@11:29:14 AUTHOR: FESTUS AZUL EXP COSIGNER: URGENCY: STATUS: COMPLETED MEDICATION RECONCILIATION Allergies: Patient has answered NKA Allergies reviewed, edited in CPRS as appropriate and confirmed by patient: Yes Active Outpatient Medications (including Supplies): Outpatient Medications Status = 1) ALBUTEROL 90MCG (CFC-F) 200D ORAL INHL INHALE 2 PUFFS ACTIVE BY ORAL INHALATION THREE TIMES A DAY NEEDED FOR BREATHING. SHAKE WELL. RINSE MOUTHPIECE FREQUENTLY TO PREVENT CLOGGING. 2) INCONT BRIEF [facility] MED #[id number] USE BRIEF PENDING DIRECTED FOR INCONTINENCE 3) MONTELUKAST NA 10MG TAB TAKE ONE TABLET BY MOUTH ACTIVE EVERY EVENING Non-VA Medications Status = 1) Non-VA ALLOPURINOL 100MG TAB 100MG MOUTH THREE TIMES ACTIVE A DAY 2) Non-VA APIXABAN 5MG TAB 5MG MOUTH TWO TIMES A DAY ACTIVE 3) Non-VA ASPIRIN 81MG EC TAB 81MG MOUTH ONCE A DAY ACTIVE 4) Non-VA ATORVASTATIN CALCIUM 80MG TAB 40MG MOUTH AT ACTIVE BEDTIME 5) Non-VA DOXAZOSIN MESYLATE 8MG TAB 4MG MOUTH AT ACTIVE BEDTIME 6) Non-VA FISH OIL CAP/TAB 1 CAP/TAB MOUTH ONCE A DAY ACTIVE 7) Non-VA HYDROCODONE 10/ACETAMINOPHEN 325MG TAB 1 ACTIVE TABLET MOUTH NEEDED 8) Non-VA LEVOTHYROXINE NA (SYNTHROID) 50MCG TAB 0.05MG ACTIVE MOUTH EVERY MORNING BEFORE MEAL 9) Non-VA METOPROLOL SUCCINATE 50MG SA TAB 25MG MOUTH ACTIVE EVERY MORNING 10) Non-VA MULTIVITAMIN CAP/TAB 1 TABLET MOUTH ONCE A DAY ACTIVE 11) Non-VA PANTOPRAZOLE NA 40MG EC TAB 40MG MOUTH ONCE A ACTIVE DAY 12) Non-VA RANOLAZINE 500MG SA TAB 500MG MOUTH TWO TIMES ACTIVE A DAY 15 Total Medications Compared newly ordered medications and medication changes to active medications and non-VA medications, and then reviewed medications with patient and/or caregiver. All discrepancies noted and reconciled. Patients, or caregivers, was provided with reconciled medications list and advised to provide to all non VA providers. Potential adverse reactions of new medications were discussed with the patient. Patient/family/caregiver educated and evaluated for understanding on Medications. The list was reviewed with and given to the patient/family/caregiver who were also educated on importance of sharing medication list with all VA providers and non-VA providers. For questions, please call your team nurse. Pertinent lab reviewed: N/A. Level of Understanding: Unable to assess Comments: /pascual/ FESTUS CRANE Signed: 08/05/2019 11:29 FESTUS AZUL CB Aug 05, 2019 11:26 AM NURSE PRACTITIONER TELEPHONE ENCOUNTER NOTE: LOCAL TITLE: WI-TEST CARRIER/TELEPHONE STANDARD TITLE: NURSE PRACTITIONER TELEPHONE ENCOUNTER NOTE DATE OF NOTE: AUG 05, 2019@11:26 ENTRY DATE: AUG 05, 2019@11:26:23 AUTHOR: FESTUS AZUL EXP COSIGNER: URGENCY: STATUS: COMPLETED WI-PAIN: Pain Reassessment-Patient's updated pain score after intervention is: PAIN Score 1 Pain Documentation: Pain level 3 or less. s. this pcp called pt. at home, pt. agrees with phone appt., pt. states he is doing well, he states he sees pmd in [facility], he states he is seeing dr. jang as pmd back grinder, pt. states he is wearing an implanted monitor and has to have this checked every [address] jang, pt. states he and his have been staying home for the most part, pt. agrees to fasting lab in september,pascual/ FESTUS AZUL [facility] Signed: 08/05/2019 11:29 FESTUS AZUL [facility] Aug 05, 2019 10:54 AM NURSING OUTPATIENT NOTE: LOCAL TITLE: WI-NURSE/[facility] STANDARD TITLE: NURSING OUTPATIENT NOTE DATE OF NOTE: AUG 05, 2019@10:54 ENTRY DATE: AUG 05, 2019@10:54:06 AUTHOR: JARED ANNA EXP COSIGNER: URGENCY: STATUS: COMPLETED Reason for appointment: PCP Appointment Reason for appointment: Other: annual via tele Is the patient diabetic? No - patient is not a diabetic What is your goal for today's visit? *Required Is there anything in your life that worries or stresses you that we may assist you with today? *Required No Are you registered for [employer] ([facility])? No - Are you interested in registering? No If 'yes' please hand [place] [employer] brochure. WI-ABUSE/NEGLECT SCREENING: Signs/Symptoms of Abuse: Abuse/Neglect Questions Yes Does the patient show any signs of abuse or neglect? No REPORT OF SUSPECTED ABUSE OR NEGLECT SOCIAL WORK CONSULTS: WI-LEARNING ASSESSMENT: Patient Learning Assessment Learning Needs Assessment ...Patient Readiness to Learn (Check if individual ready to learn): ...Patient is ready to learn. Will Patient Have Difficulty Understanding Information: ...No Educational Needs: Do you need further information with: Safe & effective use of medications? ...No Safe & effective use of equipment? (Home O2, prosthetics, Rehab Medicine) ...No Potential food/drug interaction? ...No Modified diet? (If referral -- to Dietitian) ...No Rehabilitation techniques or help with independent function? (If referral -- to Rehab Medicine) ...No Patient taught on rehabilitation techniques today. Community resources (If referral -- to [facility]/) ...No When/how to obtain further treatment? ...Yes Patient responsibilities in the treatment process? (Booklet) ...No Hygiene? (If taught - Handout/PHE given that includes grooming, bathing, oral health, hair and nail care and use of toilet.) ...No Information about disease process? (If taught - appropriate handout given) ...No Advanced directives? (Booklet) ...No WI-BHAVANA MESSER ADL: ACOVE MESSER INDEX ADL: Messer Index of [place] in Activities of Daily Living Activities Points (1 or 0) [place] (1 Point) NO supervision, direction or personal assistance Dependence (0 Points) WITH supervision, direction, personal assistance or total care BATHING 1 Points (1 POINT) Bathes self completely or needs help in bathing only a single part of the body such as the back, genital area or disabled extremity (0 POINTS) Need help with bathing more than one part of the body, getting in or out of the tub or shower. Requires total bathing DRESSING 1 Points (1 POINT) Get clothes from closets and drawers and puts on clothes and outer garments complete with fasteners. May have help tying shoes. (0 POINTS) Needs help with dressing self or needs to be completely dressed. TOILETING 1 Points (1 POINT) Goes to toilet, gets on and off, arranges clothes, cleans genital area without help. (0 POINTS) Needs help transferring to the toilet, cleaning self or uses bedpan or commode. TRANSFERRING 1 Points (1 POINT) Moves in and out of bed or chair unassisted. Mechanical transfer aids are acceptable (0 POINTS) Needs help in moving from bed to chair or requires a complete transfer. CONTINENCE 1 Points (1 POINT) Exercises complete self control over urination and defecation. (0 POINTS) Is partially or totally incontinent of FEEDING 1 Points (1 POINT) Gets food from plate into mouth without help. Preparation of food may be done by another person. (0 POINTS) Needs partial or total help with feeding or requires parenteral feeding. 6 Total Points Score of 6 = High, Patient is independent. Score of 0 = Low, patient is very dependent. Slightly adapted. Ayde Camarillo., Shira TD, Willie, HR, et al. (1970) progress in the development of the index of ADL. Gerontologist 10:20-30. Copyright The [employer] of [place]. Reproduced by permission of the publisher. No issues identified at this time. Depression Screening: PHQ-2+I9 Depression Screening Score: 0 The score on this administration is 0, which indicates a negative screen on the Depression Scale over the past two weeks. Suicide Screening Score: 0 The results of this administration indicates a NEGATIVE primary screen for Risk of Suicide over the last 2 weeks. Over the past two weeks, how often have you been bothered by the following problems? 1. Little interest or pleasure in doing things Not at all 2. Feeling down, depressed, or hopeless Not at all 3. Thoughts that you would be better off or of hurting yourself in some way Not at all WI-PAIN: Pain Reassessment-Patient's updated pain score after intervention is: PAIN Score 3 Pain Documentation: Pain level 3 or less. VISN 15-INFLUENZA IMMUNIZATION : INFLUENZA IMMUNIZATION V1.0 Vaccine not given: Patient indicated influenza vaccination was received at another facility. Date: January, Exact date is unknown Location: Dr.cransten casanova [place]-FALL RISK OP: PARMAR FALL SCALE The Parmar Fall scale was performed and score was 0. This is indicative of low risk of falls. History of falling in past 3 months? No Secondary diagnosis: No Ambulatory aid: None/bedrest/nurse assist Intravenous therapy/Heparin lock: No Gait/Transferring: Normal/bed rest/immobile Mental Status: Oriented to own ability/knows own limitations OTHER RISK FACTORS No history of falls and no secondary diagnosis. Patient risk for falling: Low Risk pamphlet given to patient/family Is patient at risk for falling? Patient is NOT at risk for falling Is the patient 75 years of age or older? Yes Has the patient had any falls in the past 12 months? No Tobacco Use Screening: The patient uses tobacco every day. The patient uses tobacco within 30 minutes of waking up. The patient has been smoking or using tobacco for thirty years or more. Patient was advised to quit smoking and/or using tobacco. Discussion with patient included: - Quitting smoking or tobacco use is one of the most important things you can do to protect and improve your health and [place] has the resources to support you. - Set a quit date when you are ready to quit. - Get support from your family and friends. - Review any past quit attempts- What helped? What didn't? - On the day you plan to quit, get rid of all cigarettes and tobacco products from your home, car or work. - Using a combination of behavioral counseling or other support strategies and FDA-approved cessation medications is the most effective way to ensure success in quitting. Patient was offered Behavioral Counseling and other support strategies to assist with quitting. Discussion with patient included: - Behavioral counseling or other support strategies greatly increases your chances of successfully quitting smoking or tobacco use by helping you develop a quit plan and providing support and other strategies to make behavioral changes to help you quit. - [place] has a number of behavioral counseling options to help you with quitting, including: * Provide information about the facility smoking or tobacco use treatment options or clinics * [place]'s national quitline, 9-621-UUVS-VET, with counseling available Friday-Friday The patient was not interested in receiving additional information about how to use the treatment options discussed. Patient was offered FDA-approved cessation medications. Discussion with patient included: - Medications for Nicotine replacement therapy such as the patch, gum or lozenge, and other medications such as varenicline or bupropion, can play an important role in the initial weeks and months after you quit smoking or tobacco use. - Medications help with cravings and withdrawal symptoms and they greatly increase your chances of successfully quitting. The patient was not interested in a prescription for tobacco cessation medications. Alcohol Use Screen (AUDIT-C): Alcohol Screen: SCREEN FOR ALCOHOL (AUDIT-C) An alcohol screening test (AUDIT-C) was negative (score=0). 1. How often did you have a drink containing alcohol in the past year? Never 2. How many drinks containing alcohol did you have on a typical day when you were drinking in the past year? Response not required due to responses to other questions. 3. How often did you have six or more drinks on one occasion in the past year? Response not required due to responses to other questions. /pascual/ JARED ANNA LPN Signed: 08/05/2019 10:59 JARED ANNA OC
--- OUTSIDE RECORDS SUMMARY | 2019-10-22 10:29 | XMS REPORT ---
Author Author [facility] TENISHA ann Organization [facility] Address [address] [place] [address] Phone Unavailable Care Team Providers Care Change Agent Name Role Phone FESTUS AZUL PCP Unavailable [...] NDARD PLUS ON Apr 14, 2015 106 [id number] [phone] TENISHA ESCAMILLA PATIENT [place] (FE[place]) MEDICARE SECONDARY (NO B EXC) FEP SECONDARY Sep 12 2 105 [id number] TENISHA ESCAMILLA PATIENT [place] (FEP) MEDICARE SECONDARY (NO B EXC) FEP SECONDARY Sep 12 2 105 [id number] TENISHA ESCAMILLA PATIENT BCBS [place] ATTN FEP CLAIMS PREFERRED PROVIDER ORGANIZATION (PPO ) FEP STANDARD PLUS ON Apr 14, 2015 106 [id number] [phone] TENISHA ESCAMILLA [place] FEP PREFERRED PROVIDER ORGANIZATION (PPO) FEP STANDA RD PLUS ON Apr 14, 2015 106 [id number] [phone] TENISHA ESCAMILLAMARK FEP RX PRESCRIPTION FEPRX Sep 12, 2001 [id number] [phone] TENISHA ESCAMILLAMARK FEP([id number]) PRESCRIPTION FEP Sep 12, 2001 [id number] TENISHA ESCAMILLA PATIENT MEDICARE (WNR) MEDICARE (M) PART A Sep 12, 2006 PART A [id number] 07A [phone] TENISHA ESCAMILLA PATIENT MEDICARE (WNR) MEDICARE (M) PART B Sep 12, 2006 PART B [id number] 07A [phone] GENIE ESCAMILLARY PATIENT MEDICARE (WNR) MEDICARE (M) PART A Sep 12, 2006 PART A [id number] [phone] ANDI,TENISHA PATIENT MEDICARE (WNR) MEDICARE (M) PART B Sep 12, 2006 PART B [id number] 07A [phone] TENISHA ESCAMILLA PATIENT MEDICARE (WNR) MEDICARE (M) PART A Sep 12, 2006 PART A [id number] [phone] TENISHA ESCAMILLA PATIENT MEDICARE (WNR) MEDICARE (M) PART B Sep 12, 2006 PART B [id number] [phone] TENISHA ESCAMILLA PATIENT Selected Encounter This section includes the information on record at [place] for the Encounter. Date/Time Encounter Type Encounter Description Reason Provider Source Mar 10, 2019 10:27 AM Outpatient En[facility] KATLYN DONAHUE [facility] IHE Encounter Template Text not used by [place] Assessments - Encounter Diagnoses No Data Provided for This Section Plan of Treatment: Future Appointments (+ 6 months) and Future Tests (+/- 45 day s) The Plan of Treatment section includes future care activities for the patient fr om all [place] treatment facilities. This section includes future appointments and fu ture orders which are active, pending or scheduled. Future Appointments This section includes appointments that were scheduled t o occur 6 months from the date of the Encounter, up to a maximum of 20 appointme nts. The data comes from all [place] treatment facilities. Appointment Date/Time Appointment Type Appointment Facili ty Name Mar 30, 2019 02:00 PM AMBULATORY - NONE KATLYN DONAHUE [facility] C Aug 05, 2019 11:01 AM AMBULATORY - MEDICINE [facility] Surgical Procedures: All associated to the [...] patient. The data comes from a ll [place] treatment facilities. It does not list Allergies/ADRs that were removed or entered in error. Some allergies/ADRs may be reported in t he Immunization section. Allergen Event Date Event Type Reaction(s) Severity Source No Known Allergies MARK WILLIS [facility] Medications: VA dispensed (-15 months) and Non-VA Documented (Obtained Outside [facility]) Section Date Range: 1) prescriptions processed by a VA pharmacy in the last 15 m [facility], and 2) all medications recorded in the [place] medical record as "non-VA medic ations". Pharmacy terms refer to [place] pharmacy's work on prescriptions. [place] patient s are advised to take their medications as instructed by their health care team. The data comes from all [place] treatment facilities. Glossary of Pharmacy Terms:Active = A prescription that can be filled at the local [place] pharmacy.Active: On Hold = An active prescription that will not be filled until pharmacy resolves the issue.Active: Susp = An active prescription that is not scheduled to be filled yet.Clinic Order = A medication received during a visit to a [place] clinic or emergency department (currently not available).Discontinued [...] TO PREVENT CLOGGING. 3 Aug 07, 2019 [id number] Aug 10, 2018 FESTUS AZUL ALLOPURINOL 100MG [...] MOUTH EVERY EVENING 30 Aug 07, 2019 [id number] August 13, 2018 FESTUS AZUL MULTIVITAMINS CAP/TAB [...] problems (conditions). The data comes from all [place] treatment facilities. Problem Status Problem Code Date of Onset Date of Resolution Comm ent(s) Provider Source Arthritis * (ICD-9-CM 716.90) Active 716.[address] [facility] Benign essential hypertension (SNOMED CT 2068678) Active 9154012 [facility] Bilateral tinnitus (SNOMED CT 1978976509273) Active [id number] BARBIE BAIN [facility] cancer skin, lymph node involvement, one node removed, others ne g. Active 799.9 Jun 23, 2008 Entered By: FESTUS BLANKENSHIP Comment: per [facility] oncology, follow up in 3 months FESTUS AZUL [facility] Chronic back pain (SNOMED CT 084108584) Active 364497054 FESTUS AZUL [facility] Chronic Low Back Pain (ICD-9-CM 724.2) Active 724.2 FESTUS AZUL [facility] colonoscopy done at [facility] [address] quintana, wnl Active 799. 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 FESTUS AZUL [facility] Sciatica * (ICD-9-CM 724.3) Active 724.3 FESTUS DINH [facility] Sensorineural hearing loss, bilateral (SNOMED CT 211099084) Active 059973021 [facility] [facility] [facility] Radiology Reports: +/- 30 days of the encounter No Data Provided for This Section Pathology Reports: +/- 30 days of the encounter No Data Provided for This Section Encounter Notes: All associated encounter notes This section contains the clinical notes associated to the Encounter. Date/Time Encounter Note(s) Provider Source Mar 10, 2019 10:27 AM AUDIOLOGY NOTE: LOCAL TITLE: WI-AUDIOLOGY/ESTABLISHED STANDARD TITLE: AUDIOLOGY NOTE DATE OF NOTE: MAR 10, 2019@10:27 ENTRY DATE: MAR 10, 2019@10:27:52 AUTHOR: COCO MAYS COSIGNER: BARBIE BAIN URGENCY: STATUS: COMPLETED [place]-AUDIOLOGY/ESTABLISHED Has ADDENDA S: Hearing aids received from in mail. 0: Hearing aids cleaned and checked. A: [ ] No problem(s) found with hearing aid(s). [x] Problems found with hearing aids: [ ] Hearing aid(s) returned to . [ ] Hearing aid(s) repaired in house. [x] Hearing aids sent out for repair. Intermittent, weak, moisture damage. 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 P: [ ] Will contact after hearing aid(s) are received back from repair. [x] Mail hearing aids to after repair. [ ] [place] scheduled for return visit. [ ] Return to clinic if additional follow-up is needed. 2xS rcvr; med closed dome Ordered domes and wax filters. Case on shelf. 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 Prog rajesh. Mailed grimes's to vet. /jose luis [employer] [employer] DELIVERY DRIVER Signed: 03/18/2019 13:41 /jose luis Martinez, Doctor of Audiology Cosigned: 03/18/2019 14:04 COCO MAYS [facility]
--- OUTSIDE RECORDS SUMMARY | 2019-10-22 10:29 | XMS REPORT ---
Author Author Department of [facility] rs, TENISHA AUGUST Organization [facility] Address [address] [place] [address] Phone Unavailable Care Team Providers Care Ssis Ssrs Developer Name Role Phone FESTUS AZUL PCP [...] NDARD PLUS ON Apr 14, 2015 106 [id number] [phone] TENISHA ESCAMILLA PATIENT [place]) MEDICARE SECONDARY (NO B EXC) FEP SECONDARY Sep 12 2 105 [id number] TENISHA ESCAMILLA PATIENT [place] ([place]P) MEDICARE SECONDARY (NO B EXC) FEP SECONDARY Sep 12 2 105 [id number] TENISHA ESCAMILLA PATIENT BCBS [place] ATTN FEP CLAIMS PREFERRED PROVIDER ORGANIZATION (PPO ) FEP STANDARD PLUS ON Apr 14, 2015 106 [id number] [phone] TENISHA [place]AMILLA [place] FEP PREFERRED PROVIDER ORGANIZATION (PPO) FEP STANDA RD PLUS ON Apr 14, 2015 106 [id number] [phone] TENISHA ESCAMILLAMARK FEP RX PRESCRIPTION FEPRX Sep 12, 2001 [id number] [phone] TENISHA ESCAMILLA PATIENT [place] FEP([id number]) PRESCRIPTION FEP Sep 12, 2001 [id number] TENISHA ECSAMILLA PATIENT MEDICARE (WNR) MEDICARE (M) PART A Sep 12, 2006 PART A [id number] 07A [phone] ANDI,TENISHA PATIENT MEDICARE (WNR) MEDICARE (M) PART B Sep 12, 2006 PART B [id number] 07A [phone] ANDI,TENISHA PATIENT MEDICARE (WNR) MEDICARE (M) PART A Sep 12, 2006 PART A [id number] 07A [phone] ANDI,TENISHA PATIENT MEDICARE (WNR) MEDICARE (M) PART B Sep 12, 2006 PART B [id number] 07A [phone] ANDI,TENISHA PATIENT MEDICARE (WNR) MEDICARE (M) PART A Sep 12, 2006 PART A [id number] [phone] TENISHA ESCAMILLA PATIENT MEDICARE (WNR) MEDICARE (M) PART B Sep 12, 2006 PART B [id number] [phone] TENISHA ESCAMILLA PATIENT Selected Encounter This section includes the information on record at [place] for the Encounter. Date/Time Encounter Type Encounter Description Reason Provider Source Feb 03, 2019 11:00 AM Outpatient Encounter ADMIN PAT ACTIVTIES ([facility]) KATLYN DONAHUE [facility] I[facility] Encounter Template Text not used by [place] Assessments - Encounter Diagnoses No Data Provided for This Section Plan of Treatment: Future Appointments (+ 6 months) and Future Tests (+/- 45 day s) The Plan of Treatment section includes future care activities for the patient fr om all [place] treatment facilities. This section includes future appointments and fu ture orders which are active, pending or scheduled. Future Appointments This section includes appointments that were scheduled t o occur 6 months from the date of the Encounter, up to a maximum of 20 appointme nts. The data comes from all [place] treatment facilities. Appointment Date/Time Appointment Type Appointment Facili ty Name Mar 04, 2019 01:30 PM AMBULATORY - NONE KATLYN DONAHUE [facility] C Mar 30, 2019 02:00 PM AMBULATORY - NONE KATLYN DONAHUE [facility] C Aug 05, 2019 11:01 AM AMBULATORY - MEDICINE [facility] Surgical Procedures: All associated to the [...] patient. The data comes from a ll [place] treatment facilities. It does not list Allergies/ADRs that were removed or entered in error. Some allergies/ADRs may be reported in t Immunization section. Allergen Event Date Event Type Reaction(s) Severity Source No Known Allergies MARK UlicesMackenzie [facility] Medications: VA dispensed (-15 months) and Non-VA Documented (Obtained Outside [facility]) Section Date Range: 1) prescriptions processed by a VA pharmacy in the last 15 m [facility], and 2) all medications recorded in the [place] medical record as "non-VA medic ations". Pharmacy terms refer to [place] pharmacy's work on prescriptions. [place] patient s are advised to take their medications as instructed by their health care team. The data comes from all [place] treatment facilities. Glossary of Pharmacy Terms:Active = A prescription that can be filled at the local [place] pharmacy.Active: On Hold = An active prescription that will not be filled until pharmacy resolves the issue.Active: Susp = An active prescription that is not scheduled to be filled yet.Clinic Order = A medication received during a visit to a [place] clinic or emergency department (currently not available).Discontinued [...] other providers that was filled outside the [place]. Or, it may be an over the [...] TO PREVENT CLOGGING. 3 Aug 07, 2019 [id number] Aug 10, 2018 FESTUS AZUL ALLOPURINOL 100MG [...] Documented by: FESTUS AZUL Docume nted at: [facility] METOPROLOL SUCCINATE 50MG TAB,SA Non-VA TAKE ONE-HALF TABLET BY MOUTH EVERY MORNING Non-VA Documented by: FESTUS AZUL Docume nted at: [facility] 10MG TAB TAKE ONE TABLET BY MOUTH EVERY EVENING 30 Aug 07, 2019 [id number] August 13, 2018 FESTUS AZUL MULTIVITAMINS CAP/TAB [...] * (ICD-9-CM 716.90) Active 716.90 [facility] Benign essential hypertension (SNOMED CT 4807145) Active 5297650 [facility]UL [facility] Bilateral tinnitus (SNOMED CT 4794132994692) Active [id number] BARBIE BAIN [facility] cancer skin, lymph node involvement, one node removed, others ne g. Active 799.9 Jun 23, 2008 Entered By: FESTUS BLANKENSHIP Comment: per [facility] oncology, follow up in 3 months FESTUS AZUL [facility] Chronic back pain (SNOMED CT 335659818) Active 714333537 [facility] Chronic Low Back Pain (ICD-9-CM 724.2) Active 724.2 [facility] colonoscopy done at [facility] 2008 per xin he Active 799. 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 FESTUS AZUL [facility] Sciatica * (ICD-9-CM 724.3) Active 724.3 FESTUS DINH [facility] Sensorineural hearing loss, bilateral (SNOMED CT 932909088) Active 487335677 BARBIE BAIN [facility] Radiology Reports: +/- 30 days of the encounter No Data Provided for This Section Pathology Reports: +/- 30 days of the encounter No Data Provided for This Section Encounter Notes: All associated encounter notes This section contains the clinical notes associated to the Encounter. Date/Time Encounter Note(s) Provider Source Feb 03, 2019 11:57 AM AUDIOLOGY NOTE: LOCAL TITLE: [place]-AUDIOLOGY/ESTABLISHED STANDARD TITLE: AUDIOLOGY NOTE DATE OF NOTE: FEB 03, 2019@11:57 ENTRY DATE: FEB 03, 2019@11:57:31 AUTHOR: SANTA CHILEL COSIGNER: URGENCY: STATUS: COMPLETED called because she is concerned that is having a harder time hearing and understanding. Offered an appointment at [place], but [facility] Authorizations were requested. Entered [facility] ID-ENT and Audiology consults for . /pascual/ SANTA Martinez TRAUMA DIRECTOR Signed: 02/03/2019 12:02 RANJANA,SANTA Ferrera [facility]
--- OUTSIDE RECORDS SUMMARY | 2019-10-22 10:29 | XMS REPORT | Encounter Summary ---
Author Author Department [facility] TENISHA ann Organization [facility] of [facility] Address [address] [place] [address] Phone Unavailable Care Team Providers Care Sfdc Solution Architect Name Role Phone FESTUS AZUL PCP Unavailable [...] NDARD PLUS ON Apr 14, 2015 106 [id number] [phone] TENISHA ESCAMILLA PATIENT [place] (FEP) MEDICARE SECONDARY (NO B EXC) FEP SECONDARY Sep 12 2 105 [id number] TENISHA ESCAMILLA PATIENT [place] (FEP) MEDICARE SECONDARY (NO B EXC) FEP SECONDARY Sep 12 2 105 [id number] TENISHA ESCAMILLA PATIENT BCBS [place] ATTN FEP CLAIMS PREFERRED PROVIDER ORGANIZATION (PPO ) FEP STANDARD PLUS ON Apr 14, 2015 106 [id number] [phone] ANDI,TENISHA PATIENT [place] FEP PREFERRED PROVIDER ORGANIZATION (PPO) FEP STANDA RD PLUS ON Apr 14, 2015 106 [id number] [phone] TENISHA ESCAMILLA PATIENT [place] FEP RX PRESCRIPTION FEPRX Sep 12, 2001 [id number] TENISHA ESCAMILLA PATIENT [place] FEP([id number]) PRESCRIPTION FEP Sep 12, 2001 [id number] TENISHA ESCAMILLA PATIENT MEDICARE (WNR) MEDICARE (M) PART A Sep 12, 2006 PART A [id number] [phone] ANDI,TENISHA PATIENT MEDICARE (WNR) MEDICARE (M) PART B Sep 12, 2006 PART B [id number] [phone] ANDI,TENISHA PATIENT MEDICARE (WNR) MEDICARE (M) PART A Sep 12, 2006 PART A [id number] [phone] ANDI,TENISHA PATIENT MEDICARE (WNR) MEDICARE (M) PART B Sep 12, 2006 PART B [id number] [phone] ANDI,TENISHA PATIENT MEDICARE (WNR) MEDICARE (M) PART A Sep 12, 2006 PART A [id number] [phone] ANDI,TENISHA PATIENT MEDICARE (WNR) MEDICARE (M) PART B Sep 12, 2006 PART B [id number] [phone] TENISHA ESCAMILLA PATIENT Selected Encounter This section includes the information on [place] at [place] for the Encounter. Date/Time Encounter Type Encounter Description Reason Provider Source Feb 05, 2019 10:52 AM Outpatient Encounter COMMUNITY CARE CONSULT [address] Encounter Template Text not used by [place] [...] 2019 01:30 PM AMBULATORY - NONE [facility] Vasiliy Mar 30, 2019 02:00 PM AMBULATORY - NONE [facility] C Aug 05, 2019 11:01 AM AMBULATORY - MEDICINE [facility] CB Surgical Procedures: All associated to the encounter [...] Source No Known Allergies MARK WILLIS [facility] Medications: VA dispensed (-15 months) and Non-VA Documented (Obtained Outside [facility]) Section Date Range: 1) prescriptions processed by a VA pharmacy in the last 15 m [facility], and 2) all medications recorded in the [...] medication received during a visit to a VA clinic or emergency department (currently not available).Discontinued [...] TO PREVENT CLOGGING. 3 Aug 07, 2019 [id number] Aug 10, 2018 FESTUS AZUL ALLOPURINOL 100MG [...] TAKE ONE TABLET BY MOUTH EVERY EVENING Aug 07, 2019 [id number] August 13, 2018 FESTUS AZUL MULTIVITAMINS CAP/TAB [...] * (ICD-9-CM 716.90) Active 716.90 FESTUS GONZALEZ [facility] Benign essential hypertension (SNOMED CT 7270061) Active 3477654 FESTUS AZUL [facility] Bilateral tinnitus (SNOMED CT 2672021061297) Active [id number] [facility] cancer skin, lymph node involvement, one node removed, others ne g. Active 799.9 Jun 23, 2008 Entered By: FESTUS BLANKENSHIP Comment: per [facility] oncology, follow up in 3 months FESTUS AZUL [facility] Chronic back pain (SNOMED CT 767769840) Active 979227954 FESTUS AZUL [facility] Chronic Low Back Pain (ICD-9-CM 724.2) Active 724.2 FESTUS AZUL [facility] colonoscopy done at [facility] [address] quintana, wnl Active 799. 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 FESTUS AZUL [facility] Sciatica * (ICD-9-CM 724.3) Active 724.3 FESTUS DINH [facility] Sensorineural hearing loss, bilateral (SNOMED CT 865693110) Active [id number] [facility] Radiology Reports: +/- 30 days of the encounter No Data Provided for This Section Pathology Reports: +/- 30 days of the encounter No Data Provided for This Section Encounter Notes: All associated encounter notes This section contains the clinical notes associated to the Encounter. Date/Time Encounter Note(s) Provider Source Feb 05, 2019 11:07 AM NONVA NOTE: LOCAL TITLE: COMMUNITY CARE-SCHEDULING STANDARD TITLE: NONVA NOTE DATE OF NOTE: FEB 05, 2019@11:07 ENTRY DATE: FEB 05, 2019@11:07:29 AUTHOR: MERLE ALAMO EXP COSIGNER: URGENCY: STATUS: COMPLETED Patient Centered Community Care ([facility]) Program Department of [facility] Choice Approval for Medical Care VA-Form 10-0386 Certain protected health information (PHI) may be enclosed; specifically information related to Drug Abuse, Alcoholism or Alcohol Abuse, Sickle Cell Anemia, and Human Immunodeficiency Virus (HIV). This specific PHI may NOT be re-disclosed or used by the recipient person or office for any purpose other than that for which the disclosure was made. [Ref. 38 [facility] 7332(b)(2)(H)(ii)] The information is b eing disclosed by VA only for the treatment and care of the named patient in the health record. Accounting of disclosure must be maintained when required. Referral Urgency: Routine Indicate time frame for appointment: Clinically Indicated Date (LUIS M): Feb Category of Care/Type of Specialty: ENT Type of Specialist: Marine Geologist Type of Service/Procedure: Sensorineural Hearing Loss, Bilateral(ICD-10-CM H90.3) Procedural Overview: 1. Initial outpatient evaluation and treatment for the referred condition on the consult 2. Diagnostic imaging relevant to the referred condition on the consult 3. Labs and pathology relevant to the referred condition on the consult 4. Diagnostic studies relevant to the referred condition on the consult 5. Procedures, as clinically indicated, including but not limited to: Laryngoscopy, nasal endoscopy, biopsy, tracheostomy/tracheostomy management, Botox injections, etc. 6. Anesthesia consultation related to the procedure 7. Pre-operative medical and cardiac clearance as indicated (including H+P/labs, EKG, CXR, echo) 8. Inpatient or observation admission for surgical procedure if indicated 9. Inpatient admission or observation status for complications related to the procedure or surgery VA notification within 72 hours to Facility Community Care Office who initiated the referral is required for complications related to the initial procedure or surgery 10. Follow-up visits for this episode of care 11. Post-op Speech/Voice Therapy, if medically indicated, up to 15 visits; Notify VA to request additional visits with supporting medical documentation Please visit the [facility] Storefront www.[place].gov/COMMUNITYCARE/ providers/index.[email or web address] for additional resources and requirements pertaining to the following Pharmacy prescribing requirements Durable Medical Equipment (DME), Prosthetics, and Orthotics prescribing requirements Precertification (PRCT) process requirements Request for Services (RFS) requirements STACY Number of Visits, Frequency, and Duration: Duration:180 days or [facility] Preferred Provider Name and Contact Information: to have Audiology care as well with the [facility] in [place], if ossible please coordinate ENT appt with Audiology appt with Dillon Akhtar, please schedule with: Dr. Festus Hamilton MD [address] [facility] [address] [facility] [address] P: [phone] F: [phone] Eligibility Verification: As the authorized VA manufacturing sales representative, I hereby confirm that the is eligible for Community Care services. The [place]'s basic eligibility was verified on . Contact the Facility Community Care Office first to provide information to the VA or to reach a VA ordering provider. All contact from the contractor will be documented in the 's record by the facility [place] community Care and the VA provider will be notified for awareness. Report all Critical Findings related to this authorization to the issuing office below. All other questions regarding this authorization should be directed to: Facility: [facility] [place] Office of Community Care (OCC) Contact: Local [place] Office of Community Care (OCC) Bag Adjuster or Equivalent: Name: Rubi Martínez Title: Nurse Bag Adjuster [facility] Contact Number (Normal Business Hours): [phone] AOD/Emergency Contact After Hours Number: [phone] From Station Number: [id number] Facility Name: Katlyn Montalvo [facility] Street Address: [address] [place] [address] City: [place] State: [place] Zip: [address] Information: Name: TENISHA ESCAMILLA : Sep SSN: [id number] Address: [address] [place] [address] In accordance with 38 CFR 17.2948-1085, [place] will pay for non-VA hospital care and medical services that are authorized by [place] for [place] who are determined by [place] to meet the Veterans Choice Program eligibility criteria set forth by section 101 of the Act and 38 CFR 17.1510 and any other eligibility standards that may apply to particular services (such as health care for newborns of Veterans under 38 CFR 17.38(a)(xiv) and dental benefits under 17.160-17.169). /pascual/ MERLE ALAMO AMSA Signed: 02/05/2019 11:09 MERLE ALAMO KATLYN MONTALVO [facility] Feb 05, 2019 10:52 AM NONVA NOTE: LOCAL TITLE: COMMUNITY CARE-SCHEDULING STANDARD TITLE: NONVA NOTE DATE OF NOTE: FEB 05, 2019@10:52 ENTRY DATE: FEB 05, 2019@10:52:18 AUTHOR: MERLE ALAMO EXP COSIGNER: URGENCY: STATUS: COMPLETED Patient Centered Community Care (PC[facility]) Program [facility] Choice Approval for Medical Care VA-Form 10-0386 Certain protected health information (PHI) may be enclosed; specifically information related to Drug Abuse, Alcoholism or Alcohol Abuse, Sickle Cell Anemia, and Human Immunodeficiency Virus (HIV). This specific PHI may NOT be re-disclosed or used by the recipient person or office for any purpose other than that for which the disclosure was made. [Ref. 38 [facility] 7332(b)(2)(H)(ii)] The information is b eing disclosed by [place] only for the treatment and care of the named patient in the health record. Accounting of disclosure must be maintained when required. Referral Urgency: Routine Indicate time frame for appointment: Clinically Indicated Date (LUIS M): Feb Category of Care/Type of Specialty: AUDIOLOGY Type of Specialist: [employer]UT[employer] SPECIALIST Type of Service/Procedure: Sensorineural Hearing Loss, Bilateral(ICD-10-CM H90.3) Procedural Overview: 1. Initial outpatient evaluation and treatment for a comprehensive diagnostic audiologic evaluation for the referred condition indicated on the consult 2. Hearing aid fitting 3. Follow-up visits for this episode of care Please visit the [facility] Storefront www.va.gov/COMMUNITYCARE/ providers/index.asp for additional resources and requirements pertaining to the following Pharmacy prescribing requirements Durable Medical Equipment (DME), Prosthetics, and Orthotics prescribing requirements Precertification (PRCT) process requirements Request for Services (RFS) requirements STACY Number of Visits, Frequency, and Duration: Duration:240 days or [facility] Preferred Provider Name and Contact Information: to have ENT care as well with the [facility] in [place], if possible please coordinate AuD appt with ENT appt Dr. Hamilton, please schedule with: Dillon Tete, Giovana [address] [facility] [address] P: [phone] F: [phone] Eligibility Verification: As the authorized VA manufacturing sales representative, I hereby confirm that the is eligible for Community Care services. The [place] basic eligibility was verified on Jan. Contact the Facility Community Care Office first to provide information to the VA or to reach a VA ordering provider. All contact from the contractor will be documented in the [place] record by the facility [place] community Care and the VA provider will be notified for awareness. Report all Critical Findings related to this authorization to the issuing office below. All other questions regarding this authorization should be directed to: Facility: [facility] Office of Community Care (OCC) Contact:Raduel Li RN Local [place] Office of Community Care (OCC) Bag Adjuster or Equivalent: Name: Rubi Martínez Title: Nurse Bag Adjuster [facility]ITC Contact Number (Normal Business Hours): [phone] AOD/Emergency Contact After Hours Number: [phone] From Station Number: [id number] Facility Name: Katlyn Montalvo [facility] Street Address: [address] [place] [address] City: [place] State: [place] Zip: [address] Information: Name: TENISHA ESCAMILLA : Sep SSN: [id number] Address: [address] [place] [address] In accordance with 38 CFR 17.8542-3138, [place] will pay for non-VA hospital care and medical services that are authorized by [place] for [place] who are determined by [place] to meet the Veterans Choice Program eligibility criteria set forth by section 101 of the Act and 38 CFR 17.1510 and any other eligibility standards that may apply to particular services (such as health care for newborns of Veterans under 38 CFR 17.38(a)(xiv) and dental benefits under 17.160-17.169). /pascual/ MERLE ALAMO [facility] Signed: 02/05/2019 10:54 MERLE ALAMO [facility]
--- OUTSIDE RECORDS SUMMARY | 2019-10-22 10:31 | XMS REPORT | CCD ---
Author Author Kelvin Baeza Organization [facility] Address [address] [place] [address] Phone Care Team Providers Care Rest Room Maid Name Role Phone PP Unavailable CCM Unavailable Summary Purpose Interface Exchange Insurance Providers Payer name Policy type / Coverage type Covered libertarian ID Effective Begin Date Effective End Date WPS Medicare Part B Medicare Part B [id number] Unknown [facility] Part B [id number] Unkno wn Family history Mother Diagnosis Age At Onset Heart Attack Unknown Arthritis Unknown Dementia Unknown Grandfather Diagnosis Age At Onset Leukemia Unknown Father Diagnosis Age At Onset Hypertension Unknown Arthritis Unknown Heart Attack Unknown Social History Social History Element Codes Description Effective Dates Marital status Unknown M arried Zoe 10/04/2015 Number of children Unknown 3 10/06/2014 Employment Unknown Retir ed 10/06/[address]: 88813949 Current every day smoker 10/06/2014 Number of years using tobacco Unknown > 50 10/06/2014 Number of cigarettes/day Unknown 10 (Half a pack) 10/06/2014 Allergies, Adverse Reactions, Alerts Substance Reaction Codes Entered Date Inactivated Date Status * NO KNOWN DRUG OSORIO RGIES Unknown 08/29/2014 No Inactive Date Active Past Medical History Illness Codes Condition Status Onset Date Resolved Date Atrophy of thyroid ( acquired) ICD-9: 244.8 ICD-10: E03.4 Active 07/02/2016 Unknown Essential (primary) hypertension ICD-9: 401.1 ICD-10: I10 Active 07/02/2016 Unknown Obstructive sleep ap sarahi (adult) (pediatric) ICD-9: 327.23 ICD-10: G47.33 Active 10/27/2018 Unknown Chronic pain syndrome ICD-9: 338.4 ICD-10: G89.4 Active 01/03/2016 Unknown Chronic obstructive pulmonary disease, unspecified ICD-9: 496 ICD-10: J44.9 Active 03/20/2018 Unknown Cough ICD-9: 786.2 ICD-10: R05 Active 02/24/2018 Unknown Paroxysmal atrial fi brillation ICD-9: 427.31 ICD-10: I48.0 Active 02/24/2018 Unknown Encounter for immuni zation ICD-9: V04.81 ICD-10: Z23 Active 02/12/2018 Unknown Mixed hyperlipidemia ICD-9: 272.2 ICD-10: E78.2 Active 01/03/2016 Unknown Pain in left knee ICD-9: 719.46 ICD-10: M25.562 Active 10/03/2016 Unknown Pain in right hip ICD-9: 719.45 ICD-10: M25.551 Active 08/28/2017 Unknown Pain in right knee ICD- 9: 719.46 ICD-10: M25.561 Active 10/03/2016 Unknown Encounter for genera l adult medical examination with abnormal findings ICD-9: V70.0 ICD-10: Z00.01 Active 10/18/2016 Unknown Localized enlarged l ymph nodes ICD-9: 785.6 ICD-10: R59.0 Active 07/31/2017 Unknown Tobacco use ICD-9: 305.1 ICD-10: Z72.0 Active 01/03/2016 Unknown Encounter for immuni zation ICD-9: V03.9 ICD-10: Z23 Active 01/03/2016 Unknown Iliotibial band synd yousif, right leg ICD-9: 728.89 ICD-10: M76.31 Active 02/04/2017 Unknown Low back pain ICD-9: 724.2 ICD-10: M54.5 Active 08/29/2015 Unknown Essential (primary) hypertension ICD-9: 401.9 ICD-10: I10 Active 10/05/2014 Unknown Gastro-esophageal re flux disease without esophagitis ICD-9: 530.81 ICD-10: K21.9 Active 10/05/2014 Unknown Epigastric pain ICD-9: 789.06 ICD-10: R10.13 Active 03/20/2015 Unknown Sciatica Unknown Active 01/05/2015 Unknow n SCIATICA ICD-9: 724.3 Active 01/04/2015 Unknow n VACCIN FOR INFLUENZA ICD-9: V04.81 Active 01/04/2015 Unknown Hypertension Unknown Active 10/06/2014 Unknow n Hypothryroidism Unknown Active 10/06/2014 Unknow n ESSENTIAL HYPERTENSION ICD-9: 401.9 Active 10/05/2014 Unknown Problems Condition Codes Effectiv e Dates Condition Status Atrophy of thyroid ( acquired) ICD-9: 244.8 ICD-10: E03.4 07/02/2016 Active Essential (primary) hypertension ICD-9: 401.1 ICD-10: I10 07/02/2016 Active Obstructive sleep ap sarahi (adult) (pediatric) ICD-9: 327.23 ICD-10: G47.33 10/27/2018 Active Chronic pain syndrome ICD-9: 338.4 ICD-10: G89.4 01/03/2016 Active Chronic obstructive pulmonary disease, unspecified ICD-9: 496 ICD-10: J44.9 03/20/2018 Active Cough ICD-9: 786.2 ICD-10: R05 02/24/2018 Active Paroxysmal atrial fi brillation ICD-9: 427.31 ICD-10: I48.0 02/24/2018 Active Encounter for immuni zation ICD-9: V04.81 ICD-10: Z23 02/12/2018 Active Mixed hyperlipidemia ICD-9: 272.2 ICD-10: E78.2 01/03/2016 Active Pain in left knee ICD-9: 719.46 ICD-10: M25.562 10/03/2016 Active Pain in right hip ICD-9: 719.45 ICD-10: M25.551 08/28/2017 Active Pain in right knee ICD- 9: 719.46 ICD-10: M25.561 10/03/2016 Active Encounter for genera l adult medical examination with abnormal findings ICD-9: V70.0 ICD-10: Z00.01 10/18/2016 Active Localized enlarged l ymph nodes ICD-9: 785.6 ICD-10: R59.0 07/31/2017 Active Tobacco use ICD-9: 305.1 ICD-10: Z72.0 01/03/2016 Active Encounter for immuni zation ICD-9: V03.9 ICD-10: Z23 01/03/2016 Active Iliotibial band synd yousif, right leg ICD-9: 728.89 ICD-10: M76.31 02/04/2017 Active Low back pain ICD-9: 724.2 ICD-10: M54.5 08/29/2015 Active Essential (primary) hypertension ICD-9: 401.9 ICD-10: I10 10/05/2014 Active Gastro-esophageal re flux disease without esophagitis ICD-9: 530.81 ICD-10: K21.9 10/05/2014 Active Epigastric pain ICD-9: 789.06 ICD-10: R10.13 03/20/2015 Active Sciatica Unknown 01/05/2015 Active SCIATICA ICD-9: 724.3 01/04/2015 Active VACCIN FOR INFLUENZA ICD-9: V04.81 01/04/2015 Active Hypertension Unknown 10/06/2014 Active Hypothryroidism Unknown 10/06/2014 Active ESSENTIAL HYPERTENSION ICD-9: 401.9 10/05/2014 Active Medications Medication Codes Instruc tions Start Date Stop Date Sta tus Fill Instructions hydrocodone 10 mg-ac etaminophen 325 mg tablet RxNorm: 981166 1-2 Tablet(s) PO Q4 P RN as needed for pain 01/05/2019 02/03/2019 Active hydrocodone 10 mg-ac etaminophen 325 mg tablet RxNorm: 720052 1-2 Tablet(s) PO Q4 P RN as needed for pain 12/07/2018 12/30/2018 Inactive levothyroxine 50 mcg tablet RxNorm: 403162 1 TABLET(S) PO DAILY 11/23/2018 08/19/2019 Active hydrocodone 10 mg-ac etaminophen 325 mg tablet RxNorm: 628140 1-2 Tablet(s) PO Q4 P RN as needed for pain 11/03/2018 12/02/2018 Inactive lisinopril 2.5 mg ta blet RxNorm: 161611 1 Tablet(s) PO daily 10/30/2018 10/24/2019 Active metoprolol succinate ER 25 mg tablet,extended release 24 hr RxNorm: 047721 1 TABLET(S) PO DAILY 10/27/2018 07/23/2019 Active lisinopril 5 mg tablet RxNorm: 698542 1/2 Tablet(s) PO daily 10/27/2018 10/29/2018 Inactive FYI - this is an update to his RX - he i s not in need of a refill at this time hydrocodone 10 mg-ac etaminophen 325 mg tablet RxNorm: 032978 1-2 Tablet(s) PO Q4 P RN as needed for pain 2018 10/29/2018 Inactive hydrocodone 10 mg-ac etaminophen 325 mg tablet RxNorm: 870251 1-2 Tablet(s) PO Q4 P RN as needed for pain 08/31/2018 09/29/2018 Inactive doxazosin 4 mg tablet RxNorm: 326378 1 TABLET(S) PO DAILY 08/20/2018 08/14/2019 Active hydrocodone 10 mg-ac etaminophen 325 mg tablet RxNorm: 308949 1-2 Tablet(s) PO Q4 P RN as needed for pain 07/31/2018 08/29/2018 Inactive Lipitor 40 mg tablet RxNorm: 090832 1 TABLET(S) PO DAILY 07/22/2018 07/16/2019 Active hydrocodone 10 mg-ac etaminophen 325 mg tablet RxNorm: 426021 1-2 Tablet(s) PO Q4 P RN as needed for pain 07/01/2018 07/30/2018 Inactive hydrocodone 10 mg-ac etaminophen 325 mg tablet RxNorm: 702437 1-2 Tablet(s) PO Q4 P RN as needed for pain 06/05/2018 06/30/2018 Inactive allopurinol 100 mg t ablet RxNorm: 744416 3 TABLET(S) PO DAILY - 2 IN THE AM AND 1 AT HS 05/18/2018 05/12/2019 Active hydrocodone 10 mg-ac etaminophen 325 mg tablet RxNorm: 720088 1-2 Tablet(s) PO Q4 P RN as needed for pain 05/06/2018 06/04/2018 Inactive hydrocodone 10 mg-ac etaminophen 325 mg tablet RxNorm: 584076 1-2 Tablet(s) PO Q4 P RN as needed for pain 04/03/2018 05/02/2018 Inactive albuterol sulfate 2. 5 mg/3 mL (0.083 %) solution for nebulization RxNorm: 635137 3 Milliliter(s) INH Q4 PRN 03/20/2018 No Stop Date Active hydrocodone 10 mg-ac etaminophen 325 mg tablet RxNorm: 757299 1-2 Tablet(s) PO Q4 P RN as needed for pain 03/02/2018 03/31/2018 Inactive Ranexa 1,000 mg tabl et,extended release RxNorm: 998241 1 Tablet(s) PO BID 02/24/2018 No Stop Date Active levothyroxine 50 mcg tablet RxNorm: 970464 1 TABLET(S) PO DAILY 02/10/2018 11/06/2018 Inactive hydrocodone 10 mg-ac etaminophen 325 mg tablet RxNorm: 435763 1-2 Tablet(s) PO Q4 P RN as needed for pain 02/02/2018 03/01/2018 Inactive pantoprazole 40 mg t ablet,delayed release RxNorm: 321482 1 Tablet(s) PO daily 01/16/2018 01/10/2019 Ac tive metoprolol succinate ER 25 mg tablet,extended release 24 hr RxNorm: 347920 1 TABLET(S) PO DAILY 01/13/2018 10/09/2018 Inactive hydrocodone 10 mg-ac etaminophen 325 mg tablet RxNorm: 012237 1-2 Tablet(s) PO Q4 P RN as needed for pain 12/31/2017 01/29/2018 Inactive hydrocodone 10 mg-ac etaminophen 325 mg tablet RxNorm: 476543 1-2 Tablet(s) PO Q4 P RN as needed for pain 11/28/2017 12/27/2017 Inactive hydrocodone 10 mg-ac etaminophen 325 mg tablet RxNorm: 378976 1-2 Tablet(s) PO Q4 P RN as needed for pain 10/24/2017 11/22/2017 Inactive hydrocodone 10 mg-ac etaminophen 325 mg tablet RxNorm: 726066 1-2 Tablet(s) PO Q4 P RN as needed for pain 09/26/2017 10/23/2017 Inactive doxazosin 4 mg tablet RxNorm: 913019 1 TABLET(S) PO DAILY 08/25/2017 08/19/2018 Inactive allopurinol 100 mg t ablet RxNorm: 335753 3 TABLET(S) PO DAILY - 2 IN THE AM AND 1 AT HS 08/04/2017 04/30/2018 Inactive hydrocodone 10 mg-ac etaminophen 325 mg tablet RxNorm: 165980 1-2 Tablet(s) PO Q4 P RN as needed for pain 07/31/2017 08/29/2017 Inactive Hysingla ER 120 mg t ablet, crush resistant, extended release RxNorm: 8078309 1 Tablet(s) PO daily 07/31/2017 08/27/2017 Inactive hydrocodone 10 mg-ac etaminophen 325 mg tablet RxNorm: 304737 1-2 Tablet(s) PO Q4 P RN as needed for pain 07/03/2017 07/30/2017 Inactive Lipitor 40 mg tablet RxNorm: 249947 1 Tablet(s) PO daily 06/04/2017 05/29/2018 Inactive hydrocodone 10 mg-ac etaminophen 325 mg tablet RxNorm: 151723 1-2 Tablet(s) PO Q4 P RN as needed for pain 06/04/2017 06/26/2017 Inactive Tessalon 200 mg capsule RxNorm: 833295 1 Capsule(s) PO TID as needed cough 05/30/2017 06/03/2017 In active Zithromax Z-Elmer 250 mg tablet RxNorm: 525805 1 Tablet(s) PO UD 05/30/2017 12/08/2017 Inactive Tessalon 200 mg capsule RxNorm: 355436 1 Capsule(s) PO TID as needed cough 05/30/2017 05/29/2017 In active levothyroxine 50 mcg tablet RxNorm: 386582 1 TABLET(S) PO DAILY 05/05/2017 01/29/2018 Inactive metoprolol succinate ER 25 mg tablet,extended release 24 hr RxNorm: 905194 1 TABLET(S) PO DAILY 04/08/2017 01/02/2018 Inactive hydrocodone 10 mg-ac etaminophen 325 mg tablet RxNorm: 312066 1-2 Tablet(s) PO Q4 P RN as needed for pain 04/04/2017 05/03/2017 Inactive hydrocodone 10 mg-ac etaminophen 325 mg tablet RxNorm: 696515 1-2 Tablet(s) PO Q4 P RN as needed for pain 03/03/2017 04/01/2017 Inactive hydrocodone 10 mg-ac etaminophen 325 mg tablet RxNorm: 954842 1-2 Tablet(s) PO Q4 P RN as needed for pain 01/30/2017 02/28/2017 Inactive hydrocodone 10 mg-ac etaminophen 325 mg tablet RxNorm: 180411 1-2 Tablet(s) PO Q4 P RN as needed for pain 01/01/2017 01/28/2017 Inactive hydrocodone 10 mg-ac etaminophen 325 mg tablet RxNorm: 769276 1-2 Tablet(s) PO Q4 P RN as needed for pain 12/02/2016 12/31/2016 Inactive hydrocodone 10 mg-ac etaminophen 325 mg tablet RxNorm: 659197 1-2 Tablet(s) PO Q4 P RN as needed for pain 10/31/2016 11/28/2016 Inactive hydrocodone 10 mg-ac etaminophen 325 mg tablet RxNorm: 269574 1-2 Tablet(s) PO Q4 P RN as needed for pain 10/03/2016 10/29/2016 Inactive pantoprazole 40 mg t ablet,delayed release RxNorm: 188412 1 Tablet(s) PO daily 09/02/2016 12/03/2017 In active hydrocodone 10 mg-ac etaminophen 325 mg tablet RxNorm: 670983 1-2 Tablet(s) PO Q4 P RN as needed for pain 08/30/2016 09/28/2016 Inactive pantoprazole 40 mg t ablet,delayed release RxNorm: 008315 1 Tablet(s) PO daily 08/19/2016 09/01/2016 In active doxazosin 4 mg tablet RxNorm: 060492 1 TABLET(S) PO DAILY 08/12/2016 08/06/2017 Inactive levothyroxine 50 mcg tablet RxNorm: 120611 1 TABLET(S) PO DAILY 08/12/2016 05/04/2017 Inactive metoprolol succinate ER 25 mg tablet,extended release 24 hr RxNorm: 677909 1 TABLET(S) PO DAILY 07/08/2016 04/03/2017 Inactive hydrocodone 10 mg-ac etaminophen 325 mg tablet RxNorm: 872823 1-2 Tablet(s) PO Q4 P RN as needed for pain 07/02/2016 08/29/2016 Inactive hydrocodone 10 mg-ac etaminophen 325 mg tablet RxNorm: 616379 1-2 Tablet(s) PO Q4 P RN as needed for pain 06/05/2016 07/01/2016 Inactive hydrocodone 10 mg-ac etaminophen 325 mg tablet RxNorm: 732984 1-2 Tablet(s) PO Q4 P RN as needed for pain 05/06/2016 05/05/2016 Inactive hydrocodone 10 mg-ac etaminophen 325 mg tablet RxNorm: 533277 1-2 Tablet(s) PO Q4 P RN as needed for pain 05/06/2016 06/04/2016 Inactive allopurinol 100 mg t ablet RxNorm: 262246 3 Tablet(s) PO daily - 2 in the AM and 1 at HS 05/06/2016 04/30/2017 Inactive hydrocodone 10 mg-ac etaminophen 325 mg tablet RxNorm: 701817 1-2 Tablet(s) PO Q4 P RN as needed for pain 03/04/2016 05/05/2016 Inactive hydrocodone 10 mg-ac etaminophen 325 mg tablet RxNorm: 275965 1-2 Tablet(s) PO Q4 P RN as needed for pain 02/01/2016 03/03/2016 Inactive omeprazole 20 mg cap remy,delayed release RxNorm: 144093 1 Capsule(s) PO BID 01/04/2016 07/01/2016 In active atorvastatin 40 mg t ablet RxNorm: 634843 1 Tablet(s) PO daily 01/04/2016 06/03/2017 Inactive lisinopril 10 mg tablet RxNorm: 331365 1 Tablet(s) PO daily 01/04/2016 05/05/2017 Inactive meloxicam 15 mg tablet RxNorm: 216229 TAKE 1 TABLET BY MOUTH EVERY DAY 10/17/2015 07/01/2016 In active levothyroxine 50 mcg tablet RxNorm: 710008 1 TABLET(S) PO DAILY 10/17/2015 07/12/2016 Inactive hydrocodone 10 mg-ac etaminophen 325 mg tablet RxNorm: 842858 1-2 Tablet(s) PO Q4 P RN as needed for pain 10/10/2015 01/31/2016 Inactive Lipitor 40 mg tablet RxNorm: 162143 1 Tablet(s) PO daily 08/30/2015 01/03/2016 Inactive MS Contin 60 mg tabl et,extended release RxNorm: 938121 1 Tablet(s) PO BID 08/30/2015 10/03/2015 In active hydrocodone 10 mg-ac etaminophen 325 mg tablet RxNorm: 722390 1-2 Tablet(s) PO Q4 P RN as needed for pain 08/30/2015 10/09/2015 Inactive doxazosin 4 mg tablet RxNorm: 883015 1 Tablet(s) PO daily 08/02/2015 07/26/2016 Inactive OxyContin 20 mg tabl et,crush resistant,extended release RxNorm: 2527015 1 Tablet(s) PO BID 08/02/2015 08/29/2015 Inactive meloxicam 15 mg tablet RxNorm: 955706 TAKE 1 TABLET BY MOUTH EVERY DAY 07/25/2015 10/16/2015 In active hydrocodone 10 mg-ac etaminophen 325 mg tablet RxNorm: 751167 1 Tablet(s) PO Q4 PRN as needed for pain 07/13/2015 08/29/2015 Inactive levothyroxine 50 mcg tablet RxNorm: 672388 1 Tablet(s) PO daily 07/13/2015 10/10/2015 Inactive metoprolol succinate ER 25 mg tablet,extended release 24 hr RxNorm: 021212 1 Tablet(s) PO daily 06/30/2015 06/23/2016 Inactive hydrocodone 10 mg-ac etaminophen 325 mg tablet RxNorm: 767730 1 Tablet(s) PO Q4 PRN as needed for pain 04/21/2015 07/12/2015 Inactive hydrocodone 10 mg-ac etaminophen 325 mg tablet RxNorm: 330591 1 Tablet(s) PO Q4 PRN as needed for pain 03/30/2015 04/20/2015 Inactive allopurinol 100 mg t ablet RxNorm: 363770 3 Tablet(s) PO 2 at a m 1 at hs UD 02/08/2015 02/02/2016 In active hydrocodone 10 mg-ac etaminophen 325 mg tablet RxNorm: 245307 1 Tablet(s) PO Q4 PRN 01/25/2015 03/29/2015 In active omeprazole 20 mg cap remy,delayed release RxNorm: 232319 1 Capsule(s) PO BID 1 at am 1at pm 01/05/2015 12/30/2015 Inactive hydrocodone 10 mg-ac etaminophen 325 mg tablet RxNorm: 152108 1 Tablet(s) PO Q4 PRN 01/05/2015 01/24/2015 In active Voltaren 1 % topical gel RxNorm: 983998 4 Gram(s) TOP QID 10/06/2014 12/04/2014 Inactive Multivitamin [employer] al Formula oral RxNorm: oral No Start D ate Active potassium 99 mg tablet RxNorm: 1 Tablet(s) PO daily No Start Date Active amiodarone 200 mg ta blet RxNorm: 225561 1 Tablet(s) PO QAM No Start Date Active Eliquis 5 mg tablet RxNorm: 7663771 1/2 Tablet(s) PO BID No Start Date Active B oxdmvdj-A-hakaiwp tablet RxNorm: 1 Tablet(s) PO daily No Start Date Active magnesium oxide 400 mg tablet RxNorm: 569029 1 Tablet(s) PO daily No Start Date Active aspirin 81 mg tablet RxNorm: 489269 1 Tablet(s) PO daily No Start Date Active omega 3 183.3 mg-dha 75 mg-epa 91.6 mg-fish oil 306 mg capsule RxNorm: 1 Capsule(s) PO daily No Start Date Active Calcium + D 600 mg ( 1,500)-200 unit tablet RxNorm: 956695 1 Tablet(s) PO daily No Start Date Active allopurinol 100 mg t ablet RxNorm: 089059 Tablet(s) PO 2 at am 1 at hs No Start Date 02/07/2015 Inactive Zithromax Z-Elmer 250 mg tablet RxNorm: 480632 1 Tablet(s) PO UD No Start Date 05/29/2017 Inactive clopidogrel 75 mg ta blet RxNorm: 802939 1 Tablet(s) PO daily No Start Date 02/23/2018 Inactive pantoprazole 40 mg t ablet,delayed release RxNorm: 168664 1 Tablet(s) PO daily No Start Date 08/18/2016 Inactive lisinopril 5 mg tablet RxNorm: 676948 1/2 Tablet(s) PO BID No Start Date 10/26/2018 Inactive meloxicam 15 mg tablet RxNorm: 270113 1 Tablet(s) PO daily No Start Date 07/24/2015 Inactive doxazosin 4 mg tablet RxNorm: 908483 1 Tablet(s) PO daily No Start Date 08/01/2015 Inactive hydrocodone 7.5 mg-a cetaminophen 325 mg tablet RxNorm: 729622 1 Tablet(s) PO QID as needed for pain No Start Date 10/05/2014 Inactive Vitamin D3 5,000 uni t tablet RxNorm: 381789 1 Tablet(s) PO daily No Start Date 07/01/2016 Inactive B-12 Plus 1,000 mcg/ mL injection solution RxNorm: 373619 1 Milliliter(s) Inj d aily No Start Date 07/01/2016 Inactive magnesium citrate RxNorm: 6574 miscellaneous No Start Date 07/02/2016 Inactive Lipitor 20 mg tablet RxNorm: 014462 1 Tablet(s) PO daily No Start Date 08/29/2015 Inactive metoprolol succinate ER 25 mg tablet,extended release 24 hr RxNorm: 719182 1 Tablet(s) PO daily No Start Date 06/29/2015 Inactive lisinopril 10 mg tablet RxNorm: 845578 1 Tablet(s) PO daily No Start Date 01/03/2016 Inactive levothyroxine 50 mcg tablet RxNorm: 853539 1 Tablet(s) PO daily No Start Date 07/12/2015 Inactive omeprazole 20 mg cap remy,delayed release RxNorm: 669902 1 Capsule(s) PO daily No Start Date 01/18/2018 Inactive Ranexa 500 mg tablet ,extended release RxNorm: 462741 1 Tablet(s) PO BID No Start Date 02/23/2018 Inactive omeprazole 20 mg cap remy,delayed release RxNorm: 718414 Capsule(s) PO daily 1 at am 1at pm No Start Date 01/04/2015 Inactive Medication Administered No Medication Administered data Immunizations Vaccine Codes Date Status Influenza CVX: 141 02/12 completed Influenza CVX: 141 02/04 completed Influenza CVX: 141 01/03 completed Pneumococcal (Adult) CVX: 133 01/04/2016 completed Influenza CVX: 141 01/05 completed Influenza CVX: 141 11/12 completed Pneumococcal CVX: 33 04/2013 completed Assessments Condition Codes Effectiv e Dates Atrophy of thyroid (acquired) ICD-10 : E03.4 ICD-9: 244.8 10/27/2018 Essential (primary) hypertension ICD -10: I10 ICD-9: 401.1 10/27/2018 Obstructive sleep apnea (adult) (pediatric) ICD-10: G47.33 ICD-9: 327.23 10/27/2018 Chronic pain syndrome ICD-10: G89.4 ICD-9: 338.4 06/08/2018 Chronic obstructive pulmonary disease, unspecified ICD-10: J44.9 ICD-9: 496 04/03/2018 Cough ICD-10: R05 ICD-9: 786.2 03/20/2018 Paroxysmal atrial fibrillation ICD-1 0: I48.0 ICD-9: 427.31 03/20/2018 Encounter for immunization ICD-10: Z 23 ICD-9: V04.81 02/12/2018 Pain in right knee ICD-10: M25.561 ICD-9: 719.46 12/04/2017 Pain in left knee ICD-10: M25.562 ICD-9: 719.46 12/04/2017 Mixed hyperlipidemia ICD-10: E78.2 ICD-9: 272.2 12/04/2017 Encounter for general adult medical exam ination with abnormal findings ICD-10: Z00.01 ICD-9: V70.0 10/24/2017 Pain in right hip ICD-10: M25.551 ICD-9: 719.45 08/28/2017 Localized enlarged lymph nodes ICD-1 0: R59.0 ICD-9: 785.6 07/31/2017 Tobacco use ICD-10: Z72.0 ICD-9: 305.1 07/31/2017 Encounter for immunization ICD-10: Z 23 ICD-9: V03.9 02/04/2017 Iliotibial band syndrome, right leg ICD-10: M76.31 ICD-9: 728.89 02/04/2017 Low back pain ICD-10: M54.5 ICD-9: 724.2 02/04/2017 Essential (primary) hypertension ICD -10: I10 ICD-9: 401.9 04/04/2016 Gastro-esophageal reflux disease without esophagitis ICD-10: K21.9 ICD-9: 530.81 01/04/2016 Epigastric pain ICD-10: R10.13 ICD-9: 789.06 03/21/2015 VACCIN FOR INFLUENZA ICD-9: V04.81 01/05/2015 ESSENTIAL HYPERTENSION ICD-9: 401.9 01/05/2015 SCIATICA ICD-9: 724.3 ESOPHAGEAL REFLUX ICD-9: 530.81 10/06/2014 HYPOTHYROIDISM ICD-9: 244.9 10/06/2014 Reason For Visit Reason For Visit Effective Dates Notes snoring 10/27/2018 back pain 06/08/2018 arrhythmia 04/03/2018 arrhythmia 03/20/2018 Hospital Follow Up 02/24/2018 vaccination against influenza [...] Observation Code Item Item Code Result Date Ldh Ord92 LDH 141 U/L 09/22/2018 Comp Metabolic Dza278 NA 139 mEq/L 09/22/2018 Comp Metabolic Vpv903 K 4.5 mEq/L 09/22/2018 Comp Metabolic Oks718 CL 105 mEq/L 09/22/2018 Comp Metabolic Gak584 CO2 27.0 mEq/L 09/22/2018 Comp Metabolic Bgb953 AN ION GAP 12 09/22/2018 Comp Metabolic Rgm454 GL UCOSE 117 mg/dL 09/22/2018 Comp Metabolic Dmo984 Cr eat 1.1 mg/dL 09/22/2018 Comp Metabolic Oej689 eG FR 68 ml/min/1.73m2 09/22 Comp Metabolic Ema338 BUN 14 mg/dL 09/22/2018 Comp Metabolic Wlx957 B/ C Ratio 12.5 Ratio 09/22/2018 Comp Metabolic Ujv681 CA LCIUM 9.3 mg/dL 09/22/2018 Comp Metabolic Onc697 AL K PHOS 97 U/L 09/22/2018 Comp Metabolic Gyf188 T(SGOT) 19 U/L 09/22/2018 Comp Metabolic Vqz150 AL T(SGPT) 14 U/L 09/22/2018 Comp Metabolic Lli841 BI LI T 0.6 mg/dL 09/22/2018 Comp Metabolic Zab959 AL BUMIN 4.1 g/dL 09/22/2018 Comp Metabolic Qzr462 TP RO 6.5 g/dL 09/22/2018 Comp Metabolic Dra004 GL OB 2.4 g/dL 09/22/2018 Comp Metabolic Dtx977 A/ G Ratio 1.7 Ratio 09/22/2018 Comp Metabolic Zrj018 Os mo 279 mOsmo 09/22/2018 Cbc With Differential Ord2 WBC 7.62 K/ul 09/22/2018 Cbc With Differential Ord2 RBC 3.80 M/ul 09/22/2018 Cbc With Differential Ord2 HGB 13.8 g/dl 09/22/2018 Cbc With Differential Ord2 HCT 40.0 % 09/22/2018 Cbc With Differential Ord2 Neut% 59.4 % 09/22/2018 Cbc With Differential Ord2 Lymph% 26.8 % 09/22/2018 Cbc With Differential Ord2 MCV 105.3 fl 09/22/2018 Cbc With Differential Ord2 MCH 36.3 pg 09/22/2018 Cbc With Differential Ord2 [place]% 9.7 % 09/22/2018 Cbc With Differential Ord2 MCHC 34.5 pg 09/22/2018 Cbc With Differential Ord2 Eos% 3.7 % 09/22/2018 Cbc With Differential Ord2 PLT 184 K/ul 09/22/2018 Cbc With Differential Ord2 Baso% 0.4 % 09/22/2018 Cbc With Differential Ord2 RDW 13.9 % 09/22/2018 Cbc With Differential Ord2 Neut ABS# 4.53 K/ul 09/22/2018 Cbc With Differential Ord2 Lymph ABS# 2.04 K/ul 09/22/2018 Cbc With Differential Ord2 [place] ABS# 0.7 K/ul 09/22/2018 Cbc With Differential Ord2 Eos ABS# 0.3 K/ul 09/22/2018 Cbc With Differential Ord2 Baso ABS# 0.0 K/ul 09/22/2018 Lipid Ord30 CHOL 124 mg/dL 09/22/2018 Lipid Ord30 HDL 32.0 mg/dl 09/22/2018 Lipid Ord30 TRIG 147 mg/dL 09/22/2018 Lipid Ord30 LDL 63 mg/dL 09/22/2018 Lipid Ord30 C/HDL 3.9 Ratio 09/22/2018 Free T4 [id number] FREE T4 0.87 ng/dL 12/04/2017 Tsh Ord6 TSH (3rd IS) 3.04 uIU/mL 12/04/2017 Lipid Ord30 CHOL 164 mg/dL 03/17/2017 Lipid Ord30 HDL 43.0 mg/dl 03/17/2017 Lipid Ord30 TRIG 144 mg/dL 03/17/2017 Lipid Ord30 LDL 92 mg/dL 03/17/2017 Lipid Ord30 C/HDL 3.8 Ratio 03/17/2017 Hepatic Ula529 ALBUMIN 4.4 g/dL 03/17/2017 Hepatic Luz316 TPRO 7.3 g/dL 03/17/2017 Hepatic Sam560 GLOB 2.9 g/dL 03/17/2017 Hepatic Kcz423 A/G Ratio 1.5 Ratio 03/17/2017 Hepatic Lth606 ALK PHOS 125 U/L 03/17/2017 Hepatic Aad237 ALT(SGPT) 15 U/L 03/17/2017 Hepatic Fzj862 AST(SGOT) 22 U/L 03/17/2017 Hepatic Xva563 BILI T 0.7 mg/dL 03/17/2017 Hepatic Xfp635 BILI D 0.1 mg/dL 03/17/2017 Hepatic Sjq976 BILI I 0.6 mg/dL 03/17/2017 Tsh Ord6 hTSH II 2.89 uIU/mL 01/13/2017 Comp Metabolic Vax425 NA 139 mEq/L 01/13/2017 Comp Metabolic Ipq300 K 4.4 mEq/L 01/13/2017 Comp Metabolic Ndw601 CL 105 mEq/L 01/13/2017 Comp Metabolic Kkc127 CO2 29.0 mEq/L 01/13/2017 Comp Metabolic Gsm264 AN ION GAP 9 01/13/2017 Comp Metabolic Vuq491 GL UCOSE 105 mg/dL 01/13/2017 Comp Metabolic Gjl862 Cr eat 1.1 mg/dL 01/13/2017 Comp Metabolic Lrv444 eG FR 68 ml/min/1.73m2 01/13 Comp Metabolic Bma922 BUN 12 mg/dL 01/13/2017 Comp Metabolic Pxw514 B/ C Ratio 10.7 Ratio 01/13/2017 Comp Metabolic Iiv454 CA LCIUM 9.2 mg/dL 01/13/2017 Comp Metabolic Jda505 AL K PHOS 90 U/L 01/13/2017 Comp Metabolic Qlk734 T(SGOT) 18 U/L 01/13/2017 Comp Metabolic Ebz580 AL T(SGPT) 12 U/L 01/13/2017 Comp Metabolic Tzp022 BI LI T 0.5 mg/dL 01/13/2017 Comp Metabolic Uxj905 AL BUMIN 4.1 g/dL 01/13/2017 Comp Metabolic Jaj063 TP RO 6.4 g/dL 01/13/2017 Comp Metabolic Dzv212 GL OB 2.3 g/dL 01/13/2017 Comp Metabolic Hyc202 A/ G Ratio 1.8 Ratio 01/13/2017 Comp Metabolic Pqv374 Os mo 278 mOsmo 01/13/2017 Lipid Ord30 CHOL 131 [...] 35.6 pg 01/13/2017 Cbc With Differential Ord2 [place]% 10.5 % 01/13/2017 Cbc With Differential Ord2 [...] 1.30 K/ul 01/13/2017 Cbc With Differential Ord2 [place] ABS# 0.7 K/ul 01/13/2017 Cbc With Differential Ord2 Eos ABS# 0.2 K/ul 01/13/2017 Cbc With Differential Ord2 Baso ABS# 0.0 K/ul 01/13/2017 Total Psa Ord10 PSA 0.02 ng/mL 01/13/2017 Vitamin D 25 Oh [id number] VITAMIN D, 25 HYDROXY 65.24 ng/mL 10/21/2014 Tsh Ord6 hTSH II 1.32 uIU/mL 10/20/2014 Comp Metabolic Dbz161 NA 138 mEq/L 10/20/2014 Comp Metabolic Pgq859 K 4.4 mEq/L 10/20/2014 Comp Metabolic Icv402 CL 106 mEq/L 10/20/2014 Comp Metabolic Djw328 CO2 28.0 mEq/L 10/20/2014 Comp Metabolic Iky646 AN ION GAP 8 10/20/2014 Comp Metabolic Pbw453 GL UCOSE 98 mg/dL 10/20/2014 Comp Metabolic Lyn089 Cr eat 1.0 mg/dL 10/20/2014 Comp Metabolic Qhh236 eG FR 74 ml/min/1.73m2 10/20 Comp Metabolic Xdc295 BUN 14 mg/dL 10/20/2014 Comp Metabolic Ngh048 B/ C Ratio 13.5 Ratio 10/20/2014 Comp Metabolic Jyv408 CA LCIUM 9.4 mg/dL 10/20/2014 Comp Metabolic Tlg954 AL K PHOS 125 U/L 10/20/2014 Comp Metabolic Zvj212 T(SGOT) 22 U/L 10/20/2014 Comp Metabolic Lju962 AL T(SGPT) 20 U/L 10/20/2014 Comp Metabolic Kfk129 BI LI T 0.5 mg/dL 10/20/2014 Comp Metabolic Tbh929 AL BUMIN 4.4 g/dL 10/20/2014 Comp Metabolic Sie680 TP RO 6.7 g/dL 10/20/2014 Comp Metabolic Pnl578 GL OB 2.3 g/dL 10/20/2014 Comp Metabolic Kui896 A/ G Ratio 1.9 Ratio 10/20/2014 Comp Metabolic Eay472 Os mo 276 mOsmo 10/20/2014 Cbc With Differential Ord2 [...] Result Effective Dates Constitutional No recent illness 10/27/2018 Constitutional No night sweats 10/27/2018 Constitutional No chills 10/27/2018 Constitutional No diaphoresis 10/27/2018 Constitutional fatigue 0 10/27/2018 Constitutional No fever 10/27/2018 Constitutional insomnia 10/27/2018 Constitutional No malaise 10/27/2018 Eyes No eye erythema Ears/Nose/Throat/Neck No dizziness 10/27/2018 Ears/Nose/Throat/Neck No headache 10/27/2018 Ears/Nose/Throat/Neck No nasal allergies 10/27/2018 Ears/Nose/Throat/Neck No nasal discharge 10/27/2018 Cardiovascular No chest pain/pressure 10/27/2018 Cardiovascular No dyspnea 10/27/2018 Cardiovascular No edema 10/27/2018 Respiratory No productive sputum 10/27/2018 Respiratory No cough Gastrointestinal No abdominal pain 10/27/2018 Gastrointestinal No constipation 10/27/2018 Gastrointestinal No diarrhea 10/27/2018 Genitourinary/Nephrology No dysuria 10/27/2018 Musculoskeletal stiffness 10/27/2018 Musculoskeletal arthralgia(s) 10/27/2018 Musculoskeletal back pain 10/27/2018 Dermatologic No rash Neurologic No alteration of consciousness 10/27/2018 Psychiatric No anxiety 0 10/27/2018 Psychiatric No depression 10/27/2018 Respiratory daytime hypersomnolence 10/27/2018 Respiratory cigarette smoking 10/27/2018 Constitutional No recent illness 06/08/2018 Constitutional No night sweats 06/08/2018 Constitutional No chills 06/08/2018 Constitutional No diaphoresis 06/08/2018 Constitutional fatigue 0 06/08/2018 Constitutional No fever 06/08/2018 Constitutional No insomnia 06/08/2018 Constitutional No malaise 06/08/2018 Eyes No eye erythema Ears/Nose/Throat/Neck No dizziness 06/08/2018 Ears/Nose/Throat/Neck No headache 06/08/2018 Ears/Nose/Throat/Neck No nasal allergies 06/08/2018 Ears/Nose/Throat/Neck No nasal discharge 06/08/2018 Cardiovascular No chest pain/pressure 06/08/2018 Cardiovascular No dyspnea 06/08/2018 Cardiovascular No edema 06/08/2018 Respiratory No productive sputum 06/08/2018 Respiratory No cough Gastrointestinal No abdominal pain 06/08/2018 Gastrointestinal No constipation 06/08/2018 Gastrointestinal No diarrhea 06/08/2018 Genitourinary/Nephrology No dysuria 06/08/2018 Musculoskeletal stiffness 06/08/2018 Musculoskeletal arthralgia(s) 06/08/2018 Musculoskeletal back pain 06/08/2018 Dermatologic No rash Neurologic No alteration of consciousness 06/08/2018 Psychiatric No anxiety 0 06/08/2018 Psychiatric No depression 06/08/2018 Constitutional No recent illness 04/03/2018 Constitutional No anorexia 04/03/2018 Constitutional No night sweats 04/03/2018 Constitutional No chills 04/03/2018 Constitutional No diaphoresis 04/03/2018 Constitutional No fatigue 04/03/2018 Constitutional No fever 04/03/2018 Constitutional No insomnia 04/03/2018 Constitutional No malaise 04/03/2018 Eyes No eye erythema Ears/Nose/Throat/Neck No dizziness 04/03/2018 Ears/Nose/Throat/Neck No headache 04/03/2018 Ears/Nose/Throat/Neck No nasal allergies 04/03/2018 Ears/Nose/Throat/Neck No nasal discharge 04/03/2018 Cardiovascular No chest pain/pressure 04/03/2018 Cardiovascular No dyspnea 04/03/2018 Cardiovascular No edema 04/03/2018 Respiratory No productive sputum 04/03/2018 Respiratory No cough Gastrointestinal No abdominal pain 04/03/2018 Gastrointestinal No constipation 04/03/2018 Gastrointestinal No diarrhea 04/03/2018 Genitourinary/Nephrology No dysuria 04/03/2018 Musculoskeletal stiffness 04/03/2018 Musculoskeletal arthralgia(s) 04/03/2018 Musculoskeletal back pain 04/03/2018 Dermatologic No rash Neurologic No alteration of consciousness 04/03/2018 Psychiatric No anxiety 1 06/04/2017 Psychiatric No depression 04/03/2018 Constitutional recent illness 03/20/2018 Constitutional No anorexia 03/20/2018 Constitutional No night sweats 03/20/2018 Constitutional No chills 03/20/2018 Constitutional No diaphoresis 03/20/2018 Constitutional fatigue 1 05/21/2017 Constitutional No fever 03/20/2018 Constitutional No insomnia 03/20/2018 Constitutional No malaise 03/20/2018 Constitutional No weight loss 03/20/2018 Constitutional No weight gain 03/20/2018 Eyes No eye discharge Eyes No eye erythema 10/2017 Ears/Nose/Throat/Neck dizziness 03/20/2018 Ears/Nose/Throat/Neck No headache 03/20/2018 Cardiovascular No chest pain/pressure 03/20/2018 Cardiovascular No edema 03/20/2018 Respiratory No productive sputum 03/20/2018 Respiratory cough 2017 Gastrointestinal No abdominal pain 03/20/2018 Genitourinary/Nephrology No dysuria 03/20/2018 Musculoskeletal No joint complaint 03/20/2018 Dermatologic No rash 10/2017 Neurologic No alteration of consciousness 03/20/2018 Psychiatric No anxiety 1 05/21/2017 Respiratory dyspnea on exertion 03/20/2018 Respiratory cigarette smoking 03/20/2018 Constitutional recent illness 02/24/2018 Constitutional No anorexia 02/24/2018 Constitutional No night sweats 02/24/2018 Constitutional No chills 02/24/2018 Constitutional No diaphoresis 02/24/2018 Constitutional No fatigue 02/24/2018 Constitutional No fever 02/24/2018 Constitutional No insomnia 02/24/2018 Constitutional No malaise 02/24/2018 Constitutional No weight loss 02/24/2018 Constitutional No weight gain 02/24/2018 Eyes No eye erythema Eyes No eye discharge Ears/Nose/Throat/Neck dizziness 02/24/2018 Ears/Nose/Throat/Neck No headache 02/24/2018 Cardiovascular No chest pain/pressure 02/24/2018 Cardiovascular No edema 02/24/2018 Respiratory cough 2017 Respiratory No productive sputum 02/24/2018 Gastrointestinal No abdominal pain 02/24/2018 Genitourinary/Nephrology No dysuria 02/24/2018 Musculoskeletal No joint complaint 02/24/2018 Dermatologic No rash Neurologic No alteration of consciousness 02/24/2018 Psychiatric No anxiety 1 04/26/2017 Constitutional No recent illness 12/04/2017 Constitutional No anorexia 12/04/2017 Constitutional No night sweats 12/04/2017 Constitutional No chills 12/04/2017 Constitutional No diaphoresis 12/04/2017 Constitutional No fatigue 12/04/2017 Constitutional No fever 12/04/2017 Constitutional No insomnia 12/04/2017 Constitutional No malaise 12/04/2017 Eyes No eye erythema Ears/Nose/Throat/Neck No dizziness 12/04/2017 Ears/Nose/Throat/Neck No headache 12/04/2017 Ears/Nose/Throat/Neck No nasal allergies 12/04/2017 Ears/Nose/Throat/Neck No nasal discharge 12/04/2017 Cardiovascular No chest pain/pressure 12/04/2017 Cardiovascular No dyspnea 12/04/2017 Cardiovascular No edema 12/04/2017 Respiratory No productive sputum 12/04/2017 Respiratory cigarette smoking 12/04/2017 Respiratory No cough Gastrointestinal No abdominal pain 12/04/2017 Gastrointestinal No constipation 12/04/2017 Gastrointestinal No diarrhea 12/04/2017 Genitourinary/Nephrology No dysuria 12/04/2017 Musculoskeletal stiffness 12/04/2017 Musculoskeletal arthralgia(s) 12/04/2017 Musculoskeletal back pain 12/04/2017 Musculoskeletal muscle weakness 12/04/2017 Musculoskeletal sciatica 12/04/2017 Dermatologic No rash Neurologic No alteration of consciousness 12/04/2017 Psychiatric No anxiety 0 12/04/2017 Psychiatric No depression 12/04/2017 Musculoskeletal joint complaint 12/04/2017 Musculoskeletal shoulder pain 12/04/2017 Constitutional No recent illness 10/24/2017 Constitutional No chills 10/24/2017 Constitutional No diaphoresis 10/24/2017 Constitutional No fever 10/24/2017 Eyes No eye erythema Ears/Nose/Throat/Neck No nasal discharge 10/24/2017 Cardiovascular No chest pain/pressure 10/24/2017 Cardiovascular No dyspnea 10/24/2017 Respiratory No cough Respiratory No dyspnea 0 10/24/2017 Neurologic No alteration of consciousness 10/24/2017 Neurologic No mental status change 10/24/2017 Constitutional No recent illness 08/28/2017 Constitutional No anorexia 08/28/2017 Constitutional No night sweats 08/28/2017 Constitutional No chills 08/28/2017 Constitutional No diaphoresis 08/28/2017 Constitutional No fatigue 08/28/2017 Constitutional No fever 08/28/2017 Constitutional No insomnia 08/28/2017 Constitutional No malaise 08/28/2017 Eyes No eye erythema Ears/Nose/Throat/Neck No dizziness 08/28/2017 Ears/Nose/Throat/Neck No headache 08/28/2017 Ears/Nose/Throat/Neck No nasal allergies 08/28/2017 Ears/Nose/Throat/Neck No nasal discharge 08/28/2017 Cardiovascular No chest pain/pressure 08/28/2017 Cardiovascular No dyspnea 08/28/2017 Cardiovascular No edema 08/28/2017 Respiratory No productive sputum 08/28/2017 Respiratory cigarette smoking 08/28/2017 Respiratory No cough Gastrointestinal No abdominal pain 08/28/2017 Gastrointestinal No constipation 08/28/2017 Gastrointestinal No diarrhea 08/28/2017 Genitourinary/Nephrology No dysuria 08/28/2017 Musculoskeletal stiffness 08/28/2017 Musculoskeletal arthralgia(s) 08/28/2017 Musculoskeletal back pain 08/28/2017 Musculoskeletal muscle weakness 08/28/2017 Musculoskeletal sciatica 08/28/2017 Dermatologic No rash Neurologic No alteration of consciousness 08/28/2017 Psychiatric No anxiety 0 08/28/2017 Psychiatric No depression 08/28/2017 Constitutional No recent illness 07/31/2017 Constitutional No anorexia 07/31/2017 Constitutional No night sweats 07/31/2017 Constitutional No chills 07/31/2017 Constitutional No diaphoresis 07/31/2017 Constitutional No fatigue 07/31/2017 Constitutional No fever 07/31/2017 Constitutional No insomnia 07/31/2017 Constitutional No malaise 07/31/2017 Eyes No eye erythema Ears/Nose/Throat/Neck No dizziness 07/31/2017 Ears/Nose/Throat/Neck No headache 07/31/2017 Ears/Nose/Throat/Neck No nasal allergies 07/31/2017 Ears/Nose/Throat/Neck No nasal discharge 07/31/2017 Cardiovascular No chest pain/pressure 07/31/2017 Cardiovascular No dyspnea 07/31/2017 Cardiovascular No edema 07/31/2017 Respiratory No productive sputum 07/31/2017 Respiratory cigarette smoking 07/31/2017 Respiratory No cough Gastrointestinal No abdominal pain 07/31/2017 Gastrointestinal No constipation 07/31/2017 Gastrointestinal No diarrhea 07/31/2017 Genitourinary/Nephrology No dysuria 07/31/2017 Musculoskeletal stiffness 07/31/2017 Musculoskeletal back pain 07/31/2017 Musculoskeletal muscle weakness 07/31/2017 Musculoskeletal sciatica 07/31/2017 Dermatologic No rash Neurologic No alteration of consciousness 07/31/2017 Psychiatric No anxiety 0 07/31/2017 Psychiatric No depression 07/31/2017 Musculoskeletal arthralgia(s) 07/31/2017 Constitutional No recent illness 06/04/2017 Constitutional No anorexia 06/04/2017 Constitutional No night sweats 06/04/2017 Constitutional No chills 06/04/2017 Constitutional No diaphoresis 06/04/2017 Constitutional No fatigue 06/04/2017 Constitutional No fever 06/04/2017 Constitutional No insomnia 06/04/2017 Constitutional No malaise 06/04/2017 Eyes No eye erythema Ears/Nose/Throat/Neck No dizziness 06/04/2017 Ears/Nose/Throat/Neck No headache 06/04/2017 Ears/Nose/Throat/Neck No nasal allergies 06/04/2017 Ears/Nose/Throat/Neck No nasal discharge 06/04/2017 Cardiovascular No chest pain/pressure 06/04/2017 Cardiovascular No dyspnea 06/04/2017 Cardiovascular No edema 06/04/2017 Respiratory No productive sputum 06/04/2017 Respiratory cigarette smoking 06/04/2017 Respiratory No cough Gastrointestinal No abdominal pain 06/04/2017 Gastrointestinal No constipation 06/04/2017 Gastrointestinal No diarrhea 06/04/2017 Genitourinary/Nephrology No dysuria 06/04/2017 Musculoskeletal stiffness 06/04/2017 Musculoskeletal arthralgia(s) 06/04/2017 Musculoskeletal back pain 06/04/2017 Musculoskeletal muscle weakness 06/04/2017 Musculoskeletal sciatica 06/04/2017 Dermatologic No rash Neurologic No alteration of consciousness 06/04/2017 Psychiatric No anxiety 0 06/04/2017 Psychiatric No depression 06/04/2017 Constitutional No recent illness 02/04/2017 Constitutional No anorexia 02/04/2017 Constitutional No night sweats 02/04/2017 Constitutional No chills 02/04/2017 Constitutional No diaphoresis 02/04/2017 Constitutional No fatigue 02/04/2017 Constitutional No fever 02/04/2017 Constitutional No insomnia 02/04/2017 Constitutional No malaise 02/04/2017 Eyes No eye erythema Ears/Nose/Throat/Neck No dizziness 02/04/2017 Ears/Nose/Throat/Neck No headache 02/04/2017 Ears/Nose/Throat/Neck No nasal allergies 02/04/2017 Ears/Nose/Throat/Neck No nasal discharge 02/04/2017 Cardiovascular No chest pain/pressure 02/04/2017 Cardiovascular No dyspnea 02/04/2017 Cardiovascular No edema 02/04/2017 Respiratory No productive sputum 02/04/2017 Respiratory cigarette smoking 02/04/2017 Respiratory No cough Gastrointestinal No abdominal pain 02/04/2017 Gastrointestinal No constipation 02/04/2017 Gastrointestinal No diarrhea 02/04/2017 Genitourinary/Nephrology No dysuria 02/04/2017 Musculoskeletal sciatica 02/04/2017 Dermatologic No rash Neurologic No alteration of consciousness 02/04/2017 Psychiatric No anxiety 1 Psychiatric No depression 02/04/2017 Musculoskeletal stiffness 02/04/2017 Musculoskeletal arthralgia(s) 02/04/2017 Musculoskeletal back pain 02/04/2017 Musculoskeletal muscle weakness 02/04/2017 Constitutional No recent illness 10/18/2016 Constitutional No chills 10/18/2016 Constitutional No diaphoresis 10/18/2016 Constitutional No fever 10/18/2016 Eyes No eye erythema 10/2016 Ears/Nose/Throat/Neck No nasal allergies 10/18/2016 Ears/Nose/Throat/Neck No nasal discharge 10/18/2016 Cardiovascular No chest pain/pressure 10/18/2016 Respiratory No dyspnea 0 10/18/2016 Neurologic No alteration of consciousness 10/18/2016 Neurologic No mental status change 10/18/2016 Constitutional No recent illness 10/03/2016 Constitutional No anorexia 10/03/2016 Constitutional No night sweats 10/03/2016 Constitutional No chills 10/03/2016 Constitutional No diaphoresis 10/03/2016 Constitutional fatigue 0 10/03/2016 Constitutional No fever 10/03/2016 Constitutional No insomnia 10/03/2016 Constitutional No malaise 10/03/2016 Eyes No eye discharge Eyes No eye erythema Ears/Nose/Throat/Neck No dizziness 10/03/2016 Ears/Nose/Throat/Neck No headache 10/03/2016 Ears/Nose/Throat/Neck No nasal allergies 10/03/2016 Ears/Nose/Throat/Neck No nasal discharge 10/03/2016 Cardiovascular No chest pain/pressure 10/03/2016 Cardiovascular No dyspnea 10/03/2016 Cardiovascular No edema 10/03/2016 Cardiovascular hypertension 10/03/2016 Respiratory No productive sputum 10/03/2016 Respiratory cigarette smoking 10/03/2016 Respiratory No cough Gastrointestinal No abdominal pain 10/03/2016 Gastrointestinal No constipation 10/03/2016 Gastrointestinal No diarrhea 10/03/2016 Gastrointestinal gastroesophageal reflux 10/03/2016 Genitourinary/Nephrology No dysuria 10/03/2016 Musculoskeletal stiffness 10/03/2016 Musculoskeletal back pain 10/03/2016 Musculoskeletal sciatica 10/03/2016 Dermatologic No rash Neurologic No alteration of consciousness 10/03/2016 Psychiatric No anxiety 0 10/03/2016 Psychiatric No depression 10/03/2016 Constitutional No recent illness 07/02/2016 Constitutional No anorexia 07/02/2016 Constitutional No night sweats 07/02/2016 Constitutional No chills 07/02/2016 Constitutional No diaphoresis 07/02/2016 Constitutional No fatigue 07/02/2016 Constitutional No fever 07/02/2016 Constitutional No insomnia 07/02/2016 Constitutional No malaise 07/02/2016 Eyes No eye discharge Eyes No eye erythema Ears/Nose/Throat/Neck No dizziness 07/02/2016 Ears/Nose/Throat/Neck No headache 07/02/2016 Ears/Nose/Throat/Neck No nasal allergies 07/02/2016 Ears/Nose/Throat/Neck No nasal discharge 07/02/2016 Cardiovascular No chest pain/pressure 07/02/2016 Cardiovascular No dyspnea 07/02/2016 Cardiovascular No edema 07/02/2016 Respiratory No productive sputum 07/02/2016 Respiratory No cough Gastrointestinal No abdominal pain 07/02/2016 Gastrointestinal No constipation 07/02/2016 Gastrointestinal No diarrhea 07/02/2016 Genitourinary/Nephrology No dysuria 07/02/2016 Musculoskeletal sciatica 07/02/2016 Dermatologic No rash Neurologic No alteration of consciousness 07/02/2016 Respiratory cigarette smoking 07/02/2016 Psychiatric No anxiety 0 07/02/2016 Psychiatric No depression 07/02/2016 Constitutional No recent illness 04/04/2016 Constitutional No anorexia 04/04/2016 Constitutional No night sweats 04/04/2016 Constitutional No chills 04/04/2016 Constitutional No diaphoresis 04/04/2016 Constitutional No fatigue 04/04/2016 Constitutional No fever 04/04/2016 Constitutional No insomnia 04/04/2016 Constitutional No malaise 04/04/2016 Eyes No eye discharge Eyes No eye erythema Ears/Nose/Throat/Neck No dizziness 04/04/2016 Ears/Nose/Throat/Neck No headache 04/04/2016 Ears/Nose/Throat/Neck No nasal allergies 04/04/2016 Ears/Nose/Throat/Neck No nasal discharge 04/04/2016 Cardiovascular No chest pain/pressure 04/04/2016 Cardiovascular No dyspnea 04/04/2016 Cardiovascular No edema 04/04/2016 Cardiovascular hypertension 04/04/2016 Respiratory No productive sputum 04/04/2016 Respiratory cigarette smoking 04/04/2016 Respiratory No cough Gastrointestinal No abdominal pain 04/04/2016 Gastrointestinal No constipation 04/04/2016 Gastrointestinal No diarrhea 04/04/2016 Gastrointestinal gastroesophageal reflux 04/04/2016 Genitourinary/Nephrology No dysuria 04/04/2016 Musculoskeletal stiffness 04/04/2016 Musculoskeletal back pain 04/04/2016 Musculoskeletal sciatica 04/04/2016 Dermatologic No rash Neurologic No alteration of consciousness 04/04/2016 Psychiatric No anxiety 1 06/05/2015 Psychiatric No depression 04/04/2016 Constitutional No recent illness 01/04/2016 Constitutional No anorexia 01/04/2016 Constitutional No night sweats 01/04/2016 Constitutional No chills 01/04/2016 Constitutional No diaphoresis 01/04/2016 Constitutional No fatigue 01/04/2016 Constitutional No fever 01/04/2016 Constitutional No insomnia 01/04/2016 Constitutional No malaise 01/04/2016 Eyes No eye discharge Eyes No eye erythema Ears/Nose/Throat/Neck No dizziness 01/04/2016 Ears/Nose/Throat/Neck No headache 01/04/2016 Ears/Nose/Throat/Neck No nasal allergies 01/04/2016 Ears/Nose/Throat/Neck No nasal discharge 01/04/2016 Cardiovascular No chest pain/pressure 01/04/2016 Cardiovascular No dyspnea 01/04/2016 Cardiovascular No edema 01/04/2016 Respiratory No productive sputum 01/04/2016 Respiratory No cough Gastrointestinal No abdominal pain 01/04/2016 Gastrointestinal No constipation 01/04/2016 Gastrointestinal No diarrhea 01/04/2016 Genitourinary/Nephrology No dysuria 01/04/2016 Musculoskeletal sciatica 01/04/2016 Dermatologic No rash Neurologic No alteration of consciousness 01/04/2016 Psychiatric No anxiety 0 01/04/2016 Psychiatric No depression 01/04/2016 Gastrointestinal gastroesophageal reflux 01/04/2016 Respiratory cigarette smoking 01/04/2016 Cardiovascular hypertension 01/04/2016 Musculoskeletal stiffness 01/04/2016 Musculoskeletal back pain 01/04/2016 Constitutional No recent illness 10/04/2015 Constitutional No anorexia 10/04/2015 Constitutional No night sweats 10/04/2015 Constitutional No chills 10/04/2015 Constitutional No diaphoresis 10/04/2015 Constitutional No fatigue 10/04/2015 Constitutional No fever 10/04/2015 Constitutional No insomnia 10/04/2015 Constitutional No malaise 10/04/2015 Eyes No eye discharge Eyes No eye erythema Ears/Nose/Throat/Neck No dizziness 10/04/2015 Ears/Nose/Throat/Neck No headache 10/04/2015 Ears/Nose/Throat/Neck No nasal allergies 10/04/2015 Ears/Nose/Throat/Neck No nasal discharge 10/04/2015 Cardiovascular No chest pain/pressure 10/04/2015 Cardiovascular No dyspnea 10/04/2015 Cardiovascular No edema 10/04/2015 Respiratory No productive sputum 10/04/2015 Respiratory No cough Gastrointestinal No abdominal pain 10/04/2015 Gastrointestinal No constipation 10/04/2015 Gastrointestinal No diarrhea 10/04/2015 Genitourinary/Nephrology No dysuria 10/04/2015 Musculoskeletal sciatica 10/04/2015 Dermatologic No rash Neurologic No alteration of consciousness 10/04/2015 Constitutional No recent illness 08/30/2015 Constitutional No anorexia 08/30/2015 Constitutional No night sweats 08/30/2015 Constitutional No chills 08/30/2015 Constitutional No diaphoresis 08/30/2015 Constitutional No fatigue 08/30/2015 Constitutional No fever 08/30/2015 Constitutional No insomnia 08/30/2015 Constitutional No malaise 08/30/2015 Eyes No eye discharge Eyes No eye erythema Ears/Nose/Throat/Neck No dizziness 08/30/2015 Ears/Nose/Throat/Neck No headache 08/30/2015 Ears/Nose/Throat/Neck No nasal allergies 08/30/2015 Ears/Nose/Throat/Neck No nasal discharge 08/30/2015 Cardiovascular No chest pain/pressure 08/30/2015 Cardiovascular No dyspnea 08/30/2015 Cardiovascular No edema 08/30/2015 Respiratory No productive sputum 08/30/2015 Respiratory No cough Gastrointestinal No abdominal pain 08/30/2015 Gastrointestinal No constipation 08/30/2015 Gastrointestinal No diarrhea 08/30/2015 Genitourinary/Nephrology No dysuria 08/30/2015 Musculoskeletal sciatica 08/30/2015 Dermatologic No rash Neurologic No alteration of consciousness 08/30/2015 Constitutional No recent illness 08/02/2015 Constitutional No anorexia 08/02/2015 Constitutional No night sweats 08/02/2015 Constitutional No chills 08/02/2015 Constitutional No diaphoresis 08/02/2015 Constitutional No fatigue 08/02/2015 Constitutional No fever 08/02/2015 Constitutional No insomnia 08/02/2015 Constitutional No malaise 08/02/2015 Eyes No eye discharge Eyes No eye erythema Ears/Nose/Throat/Neck No dizziness 08/02/2015 Ears/Nose/Throat/Neck No headache 08/02/2015 Ears/Nose/Throat/Neck No nasal allergies 08/02/2015 Ears/Nose/Throat/Neck No nasal discharge 08/02/2015 Cardiovascular No chest pain/pressure 08/02/2015 Cardiovascular No dyspnea 08/02/2015 Cardiovascular No edema 08/02/2015 Respiratory No productive sputum 08/02/2015 Respiratory No cough Gastrointestinal No abdominal pain 08/02/2015 Gastrointestinal No constipation 08/02/2015 Gastrointestinal No diarrhea 08/02/2015 Genitourinary/Nephrology No dysuria 08/02/2015 Musculoskeletal sciatica 08/02/2015 Dermatologic No rash Neurologic No alteration of consciousness 08/02/2015 Constitutional No recent illness 04/21/2015 Constitutional No anorexia 04/21/2015 Constitutional No night sweats 04/21/2015 Constitutional No chills 04/21/2015 Constitutional No diaphoresis 04/21/2015 Constitutional No fatigue 04/21/2015 Constitutional No fever 04/21/2015 Constitutional No insomnia 04/21/2015 Constitutional No malaise 04/21/2015 Constitutional No weight loss 04/21/2015 Constitutional No weight gain 04/21/2015 Eyes No eye discharge Eyes No eye erythema 11/2015 Ears/Nose/Throat/Neck No dizziness 04/21/2015 Ears/Nose/Throat/Neck No headache 04/21/2015 Ears/Nose/Throat/Neck No nasal allergies 04/21/2015 Ears/Nose/Throat/Neck No nasal discharge 04/21/2015 Cardiovascular No chest pain/pressure 04/21/2015 Cardiovascular No dyspnea 04/21/2015 Cardiovascular No edema 04/21/2015 Respiratory No productive sputum 04/21/2015 Respiratory No cough 11/2015 Gastrointestinal No abdominal pain 04/21/2015 Gastrointestinal No constipation 04/21/2015 Gastrointestinal No diarrhea 04/21/2015 Genitourinary/Nephrology No dysuria 04/21/2015 Musculoskeletal sciatica 04/21/2015 Dermatologic No rash 11/2015 Neurologic No alteration of consciousness 04/21/2015 Musculoskeletal back pain 04/21/2015 Constitutional No recent illness 03/21/2015 Constitutional No anorexia 03/21/2015 Constitutional No night sweats 03/21/2015 Constitutional No chills 03/21/2015 Constitutional No diaphoresis 03/21/2015 Constitutional No fatigue 03/21/2015 Constitutional No fever 03/21/2015 Constitutional No insomnia 03/21/2015 Constitutional No malaise 03/21/2015 Eyes No eye discharge Eyes No eye erythema 11/2014 Ears/Nose/Throat/Neck No dizziness 03/21/2015 Ears/Nose/Throat/Neck No headache 03/21/2015 Ears/Nose/Throat/Neck No nasal allergies 03/21/2015 Ears/Nose/Throat/Neck No nasal discharge 03/21/2015 Cardiovascular No chest pain/pressure 03/21/2015 Cardiovascular No dyspnea 03/21/2015 Cardiovascular No edema 03/21/2015 Respiratory No productive sputum 03/21/2015 Respiratory No cough 11/2014 Gastrointestinal No abdominal pain 03/21/2015 Gastrointestinal No constipation 03/21/2015 Gastrointestinal No diarrhea 03/21/2015 Genitourinary/Nephrology No dysuria 03/21/2015 Musculoskeletal sciatica 03/21/2015 Dermatologic No rash 11/2014 Neurologic No alteration of consciousness 03/21/2015 Genitourinary/Nephrology pelvic pain 03/21/2015 Constitutional No recent illness 01/05/2015 Constitutional No anorexia 01/05/2015 Constitutional No night sweats 01/05/2015 Constitutional No chills 01/05/2015 Constitutional No diaphoresis 01/05/2015 Constitutional No fever 01/05/2015 Constitutional No fatigue 01/05/2015 Constitutional No insomnia 01/05/2015 Constitutional No weight gain 01/05/2015 Constitutional No weight loss 01/05/2015 Constitutional No malaise 01/05/2015 Eyes No eye discharge Eyes No eye erythema Ears/Nose/Throat/Neck No dizziness 01/05/2015 Ears/Nose/Throat/Neck No headache 01/05/2015 Musculoskeletal sciatica 01/05/2015 Ears/Nose/Throat/Neck No nasal allergies 01/05/2015 Ears/Nose/Throat/Neck No nasal discharge 01/05/2015 Cardiovascular No chest pain/pressure 01/05/2015 Cardiovascular No dyspnea 01/05/2015 Cardiovascular No edema 01/05/2015 Respiratory No productive sputum 01/05/2015 Respiratory No cough Gastrointestinal No abdominal pain 01/05/2015 Gastrointestinal No constipation 01/05/2015 Gastrointestinal No diarrhea 01/05/2015 Genitourinary/Nephrology No dysuria 01/05/2015 Dermatologic No rash Neurologic No alteration of consciousness 01/05/2015 Constitutional No chills 10/06/2014 Constitutional No fatigue 10/06/2014 Constitutional No fever 10/06/2014 Constitutional No recent illness 10/06/2014 Ears/Nose/Throat/Neck No dizziness 10/06/2014 Ears/Nose/Throat/Neck No headache 10/06/2014 Cardiovascular No chest pain/pressure 10/06/2014 Cardiovascular No near-syncope/dizziness 10/06/2014 Cardiovascular No palpitations 10/06/2014 Respiratory No chest congestion 10/06/2014 Respiratory No cough Gastrointestinal No abdominal pain 10/06/2014 Gastrointestinal No constipation 10/06/2014 Gastrointestinal No diarrhea 10/06/2014 Gastrointestinal No nausea 10/06/2014 Gastrointestinal No vomiting 10/06/2014 Genitourinary/Nephrology No dysuria 10/06/2014 Neurologic No alteration of consciousness 10/06/2014 Constitutional No insomnia 10/06/2014 Constitutional No malaise 10/06/2014 Eyes No blindness 2014 Eyes No vision change Ears/Nose/Throat/Neck No dental pain 10/06/2014 Ears/Nose/Throat/Neck No dysphagia 10/06/2014 Ears/Nose/Throat/Neck No hearing loss 10/06/2014 Ears/Nose/Throat/Neck No nasal allergies 10/06/2014 Ears/Nose/Throat/Neck No sore throat 10/06/2014 Ears/Nose/Throat/Neck No postnasal drip 10/06/2014 Ears/Nose/Throat/Neck No sinus congestion 10/06/2014 Cardiovascular No dyspnea 10/06/2014 Cardiovascular No edema 10/06/2014 Cardiovascular exercise intolerance 10/06/2014 Cardiovascular fatigue 0 10/06/2014 Respiratory No chest tightness 10/06/2014 Respiratory No dyspnea 0 10/06/2014 Respiratory No pedal edema 10/06/2014 Gastrointestinal No gastroesophageal reflu x 10/06/2014 Genitourinary/Nephrology No nocturia 10/06/2014 Genitourinary/Nephrology No urinary incontinence 10/06/2014 Musculoskeletal stiffness 10/06/2014 Musculoskeletal No swelling 10/06/2014 Musculoskeletal muscle weakness 10/06/2014 Musculoskeletal No myalgias 10/06/2014 Dermatologic No rash Dermatologic sores 10/06 Dermatologic No scar Neurologic No dizziness 10/06/2014 Neurologic No headache 0 10/06/2014 Neurologic No neck pain 10/06/2014 Neurologic No syncope Psychiatric No anxiety 0 10/06/2014 Psychiatric No depression 10/06/2014 Cardiovascular hypertension 10/06/2014 Musculoskeletal arthralgia(s) 10/06/2014 Physical Exam Exam Name System Name It em Name Status Result Effective Dates Notes Full Exam - General 1994 Constitutional general appearance Development: well developed 10/27/2018 None Full Exam - General 1994 Constitutional general appearance Development: appears stated age 0710/27/2018 None Full Exam - General 1994 Constitutional general appearance Hygiene/Attention to Grooming: good hygiene 10/27/2018 None Full Exam - General 1994 Eyes conjunctiva/eyelids Overall: conjunctiva clear 10/27/2018 None Full Exam - General 1994 Eyes conjunctiva/eyelids Overall: cornea clear 10/27/2018 None Full Exam - General 1994 Eyes conjunctiva/eyelids Overall: eyelids normal 10/27/2018 None Full Exam - General 1994 Eyes pupils and irises Overall: pupils equal, round, reactive to light and accomodation 10/27/2018 None Full Exam - General 1994 Ears/Nose/Throat otoscopic exam Overall: external auditory canals clear 10/27/2018 None Full Exam - General 1994 Ears/Nose/Throat otoscopic exam Overall: tympanic membranes clear 10/27/2018 None Full Exam - General 1994 Ears/Nose/Throat lips/teeth/gingiva Overall: benign lips 10/27/2018 None Full Exam - General 1994 Ears/Nose/Throat lips/teeth/gingiva Overall: normal dentition 10/27/2018 None Full Exam - General 1994 Ears/Nose/Throat oral cavity/pharynx/larynx Overall: oral mucosa clear 10/27/2018 None Full Exam - General 1994 Ears/Nose/Throat oral cavity/pharynx/larynx Overall: oropharyngeal mucosa clear 10/27/2018 None Full Exam - General 1994 Ears/Nose/Throat oral cavity/pharynx/larynx Overall: hypopharynx benign 10/27/2018 None Full Exam - General 1994 Ears/Nose/Throat oral cavity/pharynx/larynx Overall: no masses 10/27/2018 None Full Exam - General 1994 Respiratory auscultation Overall: breath sounds clear bilaterally 10/27/2018 None Full Exam - General 1994 Respiratory respiratory effort/rhythm Overall: no retractions 10/27/2018 None Full Exam - General 1994 Respiratory respiratory effort/rhythm Overall: normal rate 10/27/2018 None Full Exam - General 1994 Cardiovascular extremities Overall: no clubbing 10/27/2018 None Full Exam - General 1994 Cardiovascular auscultation of heart Overall: regular rate 10/27/2018 None Full Exam - General 1994 Cardiovascular auscultation of heart Overall: normal heart sounds 10/27/2018 None Full Exam - General 1994 Abdomen abdominal exam Overall: no tenderness 10/27/2018 None Full Exam - General 1994 Abdomen abdominal exam Overall: normal bowel sounds 10/27/2018 None Full Exam - General 1994 Lymphatic neck nodes Overall: anterior cervical chain benign 10/27/2018 None Full Exam - General 1994 Lymphatic neck nodes Overall: posterior cervical chain benign 10/27/2018 None Full Exam - General 1994 Musculoskeletal spine, ribs and pelvis Overall: spine benign 10/27/2018 None Full Exam - General 1994 Musculoskeletal spine, ribs and pelvis Overall: sacroiliac joint benign 10/27/2018 None Full Exam - General 1994 Musculoskeletal spine, ribs and pelvis Overall: good posture 10/27/2018 None Full Exam - General 1994 Musculoskeletal head and neck Overall: head atraumatic 10/27/2018 None Full Exam - General 1994 Musculoskeletal head and neck Overall: cervical spine benign 10/27/2018 None Full Exam - General 1994 Neurologic deep tendon reflexes Overall: deep tendon reflexes intact 10/27/2018 None Full Exam - General 1994 Neurologic cranial nerves Overall: crainial nerves 2 - 12 grossly intact 10/27/2018 None Full Exam - General 1994 Psychiatric orientation/consciousness Overall: oriented to person, place and time 10/27/2018 None Full Exam - General 1994 Psychiatric mood and affect Overall: normal mood and affect 10/27/2018 None Full Exam - General 1994 Constitutional general appearance Development: well developed 06/08/2018 None Full Exam - General 1994 Constitutional general appearance Development: appears stated age 0206/08/2018 None Full Exam - General 1994 Constitutional general appearance Hygiene/Attention to Grooming: good hygiene 06/08/2018 None Full Exam - General 1994 Eyes conjunctiva/eyelids Overall: conjunctiva clear 06/08/2018 None Full Exam - General 1994 Eyes conjunctiva/eyelids Overall: cornea clear 06/08/2018 None Full Exam - General 1994 Eyes conjunctiva/eyelids Overall: eyelids normal 06/08/2018 None Full Exam - General 1994 Eyes pupils and irises Overall: pupils equal, round, reactive to light and accomodation 06/08/2018 None Full Exam - General 1994 Ears/Nose/Throat otoscopic exam Overall: external auditory canals clear 06/08/2018 None Full Exam - General 1994 Ears/Nose/Throat otoscopic exam Overall: tympanic membranes clear 06/08/2018 None Full Exam - General 1994 Ears/Nose/Throat lips/teeth/gingiva Overall: benign lips 06/08/2018 None Full Exam - General 1994 Ears/Nose/Throat lips/teeth/gingiva Overall: normal dentition 06/08/2018 None Full Exam - General 1994 Ears/Nose/Throat oral cavity/pharynx/larynx Overall: oral mucosa clear 06/08/2018 None Full Exam - General 1994 Ears/Nose/Throat oral cavity/pharynx/larynx Overall: oropharyngeal mucosa clear 06/08/2018 None Full Exam - General 1994 Ears/Nose/Throat oral cavity/pharynx/larynx Overall: hypopharynx benign 06/08/2018 None Full Exam - General 1994 Ears/Nose/Throat oral cavity/pharynx/larynx Overall: no masses 06/08/2018 None Full Exam - General 1994 Respiratory auscultation Overall: breath sounds clear bilaterally 06/08/2018 None Full Exam - General 1994 Respiratory respiratory effort/rhythm Overall: no retractions 06/08/2018 None Full Exam - General 1994 Respiratory respiratory effort/rhythm Overall: normal rate 06/08/2018 None Full Exam - General 1994 Cardiovascular extremities Overall: no clubbing 06/08/2018 None Full Exam - General 1994 Cardiovascular auscultation of heart Overall: regular rate 06/08/2018 None Full Exam - General 1994 Cardiovascular auscultation of heart Overall: normal heart sounds 06/08/2018 None Full Exam - General 1994 Abdomen abdominal exam Overall: no tenderness 06/08/2018 None Full Exam - General 1994 Abdomen abdominal exam Overall: normal bowel sounds 06/08/2018 None Full Exam - General 1994 Lymphatic neck nodes Overall: anterior cervical chain benign 06/08/2018 None Full Exam - General 1994 Lymphatic neck nodes Overall: posterior cervical chain benign 06/08/2018 None Full Exam - General 1994 Musculoskeletal spine, ribs and pelvis Overall: spine benign 06/08/2018 None Full Exam - General 1994 Musculoskeletal spine, ribs and pelvis Overall: sacroiliac joint benign 06/08/2018 None Full Exam - General 1994 Musculoskeletal spine, ribs and pelvis Overall: good posture 06/08/2018 None Full Exam - General 1994 Musculoskeletal head and neck Overall: head atraumatic 06/08/2018 None Full Exam - General 1994 Musculoskeletal head and neck Overall: cervical spine benign 06/08/2018 None Full Exam - General 1994 Neurologic deep tendon reflexes Overall: deep tendon reflexes intact 06/08/2018 None Full Exam - General 1994 Neurologic cranial nerves Overall: crainial nerves 2 - 12 grossly intact 06/08/2018 None Full Exam - General 1994 Psychiatric orientation/consciousness Overall: oriented to person, place and time 06/08/2018 None Full Exam - General 1994 Psychiatric mood and affect Overall: normal mood and affect 06/08/2018 None Full Exam - General 1994 Constitutional general appearance Development: well developed 04/03/2018 None Full Exam - General 1994 Constitutional general appearance Development: appears stated age 1204/03/2018 None Full Exam - General 1994 Constitutional general appearance Hygiene/Attention to Grooming: good hygiene 04/03/2018 None Full Exam - General 1994 Eyes conjunctiva/eyelids Overall: conjunctiva clear 04/03/2018 None Full Exam - General 1994 Eyes conjunctiva/eyelids Overall: cornea clear 04/03/2018 None Full Exam - General 1994 Eyes conjunctiva/eyelids Overall: eyelids normal 04/03/2018 None Full Exam - General 1994 Eyes pupils and irises Overall: pupils equal, round, reactive to light and accomodation 04/03/2018 None Full Exam - General 1994 Ears/Nose/Throat otoscopic exam Overall: external auditory canals clear 04/03/2018 None Full Exam - General 1994 Ears/Nose/Throat otoscopic exam Overall: tympanic membranes clear 04/03/2018 None Full Exam - General 1994 Ears/Nose/Throat lips/teeth/gingiva Overall: benign lips 04/03/2018 None Full Exam - General 1994 Ears/Nose/Throat lips/teeth/gingiva Overall: normal dentition 04/03/2018 None Full Exam - General 1994 Ears/Nose/Throat oral cavity/pharynx/larynx Overall: oral mucosa clear 04/03/2018 None Full Exam - General 1994 Ears/Nose/Throat oral cavity/pharynx/larynx Overall: oropharyngeal mucosa clear 04/03/2018 None Full Exam - General 1994 Ears/Nose/Throat oral cavity/pharynx/larynx Overall: hypopharynx benign 04/03/2018 None Full Exam - General 1994 Ears/Nose/Throat oral cavity/pharynx/larynx Overall: no masses 04/03/2018 None Full Exam - General 1994 Respiratory auscultation Overall: breath sounds clear bilaterally 04/03/2018 None Full Exam - General 1994 Respiratory respiratory effort/rhythm Overall: no retractions 04/03/2018 None Full Exam - General 1994 Respiratory respiratory effort/rhythm Overall: normal rate 04/03/2018 None Full Exam - General 1994 Cardiovascular extremities Overall: no clubbing 04/03/2018 None Full Exam - General 1994 Cardiovascular auscultation of heart Overall: regular rate 04/03/2018 None Full Exam - General 1994 Cardiovascular auscultation of heart Overall: normal heart sounds 04/03/2018 None Full Exam - General 1994 Abdomen abdominal exam Overall: no tenderness 04/03/2018 None Full Exam - General 1994 Abdomen abdominal exam Overall: normal bowel sounds 04/03/2018 None Full Exam - General 1994 Lymphatic neck nodes Overall: anterior cervical chain benign 04/03/2018 None Full Exam - General 1994 Lymphatic neck nodes Overall: posterior cervical chain benign 04/03/2018 None Full Exam - General 1994 Musculoskeletal spine, ribs and pelvis Overall: spine benign 04/03/2018 None Full Exam - General 1994 Musculoskeletal spine, ribs and pelvis Overall: sacroiliac joint benign 04/03/2018 None Full Exam - General 1994 Musculoskeletal spine, ribs and pelvis Overall: good posture 04/03/2018 None Full Exam - General 1994 Musculoskeletal head and neck Overall: head atraumatic 04/03/2018 None Full Exam - General 1994 Musculoskeletal head and neck Overall: cervical spine benign 04/03/2018 None Full Exam - General 1994 Neurologic deep tendon reflexes Overall: deep tendon reflexes intact 04/03/2018 None Full Exam - General 1994 Neurologic cranial nerves Overall: crainial nerves 2 - 12 grossly intact 04/03/2018 None Full Exam - General 1994 Psychiatric orientation/consciousness Overall: oriented to person, place and time 04/03/2018 None Full Exam - General 1994 Psychiatric mood and affect Overall: normal mood and affect 04/03/2018 None Full Exam - General 1994 Constitutional general appearance Development: well developed 03/20/2018 None Full Exam - General 1994 Constitutional general appearance Development: appears stated age 1203/20/2018 None Full Exam - General 1994 Eyes conjunctiva/eyelids Overall: conjunctiva clear 03/20/2018 None Full Exam - General 1994 Eyes conjunctiva/eyelids Overall: cornea clear 03/20/2018 None Full Exam - General 1994 Eyes conjunctiva/eyelids Overall: eyelids normal 03/20/2018 None Full Exam - General 1994 Eyes pupils and irises Overall: pupils equal, round, reactive to light and accomodation 03/20/2018 None Full Exam - General 1994 Ears/Nose/Throat otoscopic exam Overall: external auditory canals clear 03/20/2018 None Full Exam - General 1994 Ears/Nose/Throat otoscopic exam Overall: tympanic membranes clear 03/20/2018 None Full Exam - General 1994 Ears/Nose/Throat lips/teeth/gingiva Overall: benign lips 03/20/2018 None Full Exam - General 1994 Ears/Nose/Throat lips/teeth/gingiva Overall: normal dentition 03/20/2018 None Full Exam - General 1994 Ears/Nose/Throat oral cavity/pharynx/larynx Overall: oral mucosa clear 03/20/2018 None Full Exam - General 1994 Ears/Nose/Throat oral cavity/pharynx/larynx Overall: oropharyngeal mucosa clear 03/20/2018 None Full Exam - General 1994 Ears/Nose/Throat oral cavity/pharynx/larynx Overall: hypopharynx benign 03/20/2018 None Full Exam - General 1994 Ears/Nose/Throat oral cavity/pharynx/larynx Overall: no masses 03/20/2018 None Full Exam - General 1994 Respiratory auscultation Overall: breath sounds clear bilaterally 03/20/2018 None Full Exam - General 1994 Respiratory respiratory effort/rhythm Overall: no retractions 03/20/2018 None Full Exam - General 1994 Respiratory respiratory effort/rhythm Overall: normal rate 03/20/2018 None Full Exam - General 1994 Cardiovascular extremities Overall: no clubbing 03/20/2018 None Full Exam - General 1994 Cardiovascular auscultation of heart Overall: regular rate 03/20/2018 None Full Exam - General 1994 Cardiovascular auscultation of heart Overall: normal heart sounds 03/20/2018 None Full Exam - General 1994 Abdomen abdominal exam Overall: no tenderness 03/20/2018 None Full Exam - General 1994 Abdomen abdominal exam Overall: normal bowel sounds 03/20/2018 None Full Exam - General 1994 Lymphatic neck nodes Overall: anterior cervical chain benign 03/20/2018 None Full Exam - General 1994 Lymphatic neck nodes Overall: posterior cervical chain benign 03/20/2018 None Full Exam - General 1994 Musculoskeletal spine, ribs and pelvis Overall: good posture 03/20/2018 None Full Exam - General 1994 Musculoskeletal head and neck Overall: head atraumatic 03/20/2018 None Full Exam - General 1994 Musculoskeletal head and neck Overall: cervical spine benign 03/20/2018 None Full Exam - General 1994 Neurologic deep tendon reflexes Overall: deep tendon reflexes intact 03/20/2018 None Full Exam - General 1994 Neurologic cranial nerves Overall: crainial nerves 2 - 12 grossly intact 03/20/2018 None Full Exam - General 1994 Psychiatric orientation/consciousness Overall: oriented to person, place and time 03/20/2018 None Full Exam - General 1994 Psychiatric mood and affect Overall: normal mood and affect 03/20/2018 None Full Exam - General 1994 Constitutional general appearance Hygiene/Attention to Grooming: smells of tobacco 03/20/2018 None Full Exam - General 1994 Constitutional general appearance Development: well developed 02/24/2018 None Full Exam - General 1994 Constitutional general appearance Development: appears stated age 1102/24/2018 None Full Exam - General 1994 Constitutional general appearance Hygiene/Attention to Grooming: good hygiene 02/24/2018 None Full Exam - General 1994 Eyes conjunctiva/eyelids Overall: conjunctiva clear 02/24/2018 None Full Exam - General 1994 Eyes conjunctiva/eyelids Overall: cornea clear 02/24/2018 None Full Exam - General 1994 Eyes conjunctiva/eyelids Overall: eyelids normal 02/24/2018 None Full Exam [...] None Full Exam - General 1994 Eyes conjunctiva/eyelids Overall: conjunctiva clear 12/04/2017 None Full Exam - General 1994 Eyes conjunctiva/eyelids Overall: cornea clear 12/04/2017 None Full Exam - General 1994 Eyes conjunctiva/eyelids Overall: eyelids normal 12/04/2017 None Full Exam [...] None Full Exam - General 1994 Eyes conjunctiva/eyelids Overall: conjunctiva clear 10/24/2017 None Full Exam - General 1994 Eyes conjunctiva/eyelids Overall: eyelids normal 10/24/2017 None Full Exam [...] None Full Exam - General 1994 Eyes conjunctiva/eyelids Overall: conjunctiva clear 08/28/2017 None Full Exam - General 1994 Eyes conjunctiva/eyelids Overall: cornea clear 08/28/2017 None Full Exam - General 1994 Eyes conjunctiva/eyelids Overall: eyelids normal 08/28/2017 None Full Exam [...] None Full Exam - General 1994 Eyes conjunctiva/eyelids Overall: conjunctiva clear 07/31/2017 None Full Exam - General 1994 Eyes conjunctiva/eyelids Overall: cornea clear 07/31/2017 None Full Exam - General 1994 Eyes conjunctiva/eyelids Overall: eyelids normal 07/31/2017 None Full Exam [...] lymphadenopathy 07/31/2017 up into right neck and do wn to right clavicle, few lymph nodes on left side at anterior chain Full Exam - General 1994 Constitutional general appearance Development: well developed 06/04/2017 None Full Exam - General 1994 Constitutional general appearance Development: appears stated age 0206/04/2017 None Full Exam - General 1994 Constitutional general appearance Hygiene/Attention to Grooming: good hygiene 06/04/2017 None Full Exam - General 1994 Eyes conjunctiva/eyelids Overall: conjunctiva clear 06/04/2017 None Full Exam - General 1994 Eyes conjunctiva/eyelids Overall: cornea clear 06/04/2017 None Full Exam - General 1994 Eyes conjunctiva/eyelids Overall: eyelids normal 06/04/2017 None Full Exam [...] None Full Exam - General 1994 Eyes conjunctiva/eyelids Overall: conjunctiva clear 02/04/2017 None Full Exam - General 1994 Eyes conjunctiva/eyelids Overall: cornea clear 02/04/2017 None Full Exam - General 1994 Eyes conjunctiva/eyelids Overall: eyelids normal 02/04/2017 None Full Exam [...] None Full Exam - General 1994 Eyes conjunctiva/eyelids Overall: conjunctiva clear 10/18/2016 None Full Exam - General 1994 Eyes conjunctiva/eyelids Overall: eyelids normal 10/18/2016 None Full Exam [...] None Full Exam - General 1994 Eyes conjunctiva/eyelids Overall: conjunctiva clear 10/03/2016 None Full Exam - General 1994 Eyes conjunctiva/eyelids Overall: cornea clear 10/03/2016 None Full Exam - General 1994 Eyes conjunctiva/eyelids Overall: eyelids normal 10/03/2016 None Full Exam [...] None Full Exam - General 1994 Eyes conjunctiva/eyelids Overall: conjunctiva clear 07/02/2016 None Full Exam - General 1994 Eyes conjunctiva/eyelids Overall: cornea clear 07/02/2016 None Full Exam - General 1994 Eyes conjunctiva/eyelids Overall: eyelids normal 07/02/2016 None Full Exam [...] None Full Exam - General 1994 Eyes conjunctiva/eyelids Overall: conjunctiva clear 04/04/2016 None Full Exam - General 1994 Eyes conjunctiva/eyelids Overall: cornea clear 04/04/2016 None Full Exam - General 1994 Eyes conjunctiva/eyelids Overall: eyelids normal 04/04/2016 None Full Exam [...] None Full Exam - General 1994 Eyes conjunctiva/eyelids Overall: conjunctiva clear 01/04/2016 None Full Exam - General 1994 Eyes conjunctiva/eyelids Overall: cornea clear 01/04/2016 None Full Exam - General 1994 Eyes conjunctiva/eyelids Overall: eyelids normal 01/04/2016 None Full Exam [...] None Full Exam - General 1994 Eyes conjunctiva/eyelids Overall: conjunctiva clear 10/04/2015 None Full Exam - General 1994 Eyes conjunctiva/eyelids Overall: cornea clear 10/04/2015 None Full Exam - General 1994 Eyes conjunctiva/eyelids Overall: eyelids normal 10/04/2015 None Full Exam [...] None Full Exam - General 1994 Eyes conjunctiva/eyelids Overall: conjunctiva clear 08/30/2015 None Full Exam - General 1994 Eyes conjunctiva/eyelids Overall: cornea clear 08/30/2015 None Full Exam - General 1994 Eyes conjunctiva/eyelids Overall: eyelids normal 08/30/2015 None Full Exam [...] None Full Exam - General 1994 Eyes conjunctiva/eyelids Overall: conjunctiva clear 08/02/2015 None Full Exam - General 1994 Eyes conjunctiva/eyelids Overall: cornea clear 08/02/2015 None Full Exam - General 1994 Eyes conjunctiva/eyelids Overall: eyelids normal 08/02/2015 None Full Exam [...] None Full Exam - General 1994 Eyes conjunctiva/eyelids Overall: conjunctiva clear 04/21/2015 None Full Exam - General 1994 Eyes conjunctiva/eyelids Overall: cornea clear 04/21/2015 None Full Exam - General 1994 Eyes conjunctiva/eyelids Overall: eyelids normal 04/21/2015 None Full Exam [...] None Full Exam - General 1994 Eyes conjunctiva/eyelids Overall: conjunctiva clear 03/21/2015 None Full Exam - General 1994 Eyes conjunctiva/eyelids Overall: cornea clear 03/21/2015 None Full Exam - General 1994 Eyes conjunctiva/eyelids Overall: eyelids normal 03/21/2015 None Full Exam [...] None Full Exam - General 1994 Eyes conjunctiva/eyelids Overall: conjunctiva clear 01/05/2015 None Full Exam - General 1994 Eyes conjunctiva/eyelids Overall: cornea clear 01/05/2015 None Full Exam - General 1994 Eyes conjunctiva/eyelids Overall: eyelids normal 01/05/2015 None Full Exam [...] None Full Exam - General 1994 Eyes conjunctiva/eyelids Overall: conjunctiva clear 10/06/2014 None Full Exam - General 1994 Eyes conjunctiva/eyelids Overall: cornea clear 10/06/2014 None Full Exam - General 1994 Eyes conjunctiva/eyelids Overall: eyelids normal 10/06/2014 None Full Exam [...] site 10/06/2014 neck and left knee - heal ing Procedures Procedure Codes Date ADMIN INFLUENZA VIRU S VAC CPT-4: G0008 02/12/2018 IIV NO PRSV INCREASE D AG IM CPT-4: 28332 02/12/2018 PPPS, SUBSEQ VISIT CPT- 4: G0439 10/24/2017 TOBACCO-USE SUMAC TANNER 3-[address]: [id number] CPT-4: G0436 02/04/2017 ADMIN INFLUENZA VIRU S VAC CPT-4: G0008 02/04/2017 FLU VAC NO PRSV 4 VA L 3 YRS+ CPT-4: 46053 02/04/2017 PPPS, SUBSEQ VISIT CPT- 4: G0439 10/18/2016 TOBACCO-USE SUMAC TANNER 3-[address]: 189902120 CPT-4: G0436 10/03/2016 TOBACCO-USE SUMAC TANNER 3-[address]: 292508830 CPT-4: G0436 07/02/2016 TOBACCO-USE SUMAC TANNER 3-[address]: 280791892 CPT-4: G0436 04/04/2016 TOBACCO-USE SUMAC TANNER 3-[address]: 611319435 CPT-4: G0436 01/04/2016 ADMIN INFLUENZA VIRU S VAC CPT-4: G0008 01/04/2016 ADMIN PNEUMOCOCCAL V ACCINE SNOMED CT: 18140811 CPT-4: G0009 01/04/2016 PNEUMOCOCCAL VACC [address]: 30379130 CPT-4: 68286 01/04/2016 FLU VACC 4 ROSETTE 3 YRS PLUS IM SNOMED CT: 08660117 CPT-4: 27969 01/04/2016 TOBACCO-USE SUMAC TANNER 3-[address]: 456930701 CPT-4: G0436 10/04/2015 TOBACCO-USE SUMAC TANNER 3-[address]: 210990743 CPT-4: G0436 08/30/2015 TOBACCO-USE SUMAC TANNER 3-[address]: 341973450 CPT-4: G0436 08/02/2015 ADMIN INFLUENZA VIRU S VAC CPT-4: G0008 01/05/2015 FLU VACC 4 ROSETTE 3 YRS PLUS IM Formatting Model/CDA Sections, Assigned to SNOMED CT: 23629325 CPT-4: 39853Lcbliuj 01/05/2015 Vital Signs Date Vital 10/27/2018 Blood Pressure 1: 104/58 Code: 8480-6 BMI: 29.8 Code: 00696-4 Heart Rate 1: 98 bpm Height: 6' SpO2: 98% Weight: 220 lbs 06/08/2018 Blood Pressure 1: 98/60 Code: 8480-6 BMI: 29.7 Code: 76735-7 Heart Rate 1: 85 bpm Height: 6' SpO2: 97% Weight: 219 lbs 04/03/2018 Blood Pressure 1: 106/66 Code: 8480-6 BMI: 29.7 Code: 43659-9 Heart Rate 1: 71 bpm Height: 6' SpO2: 96% Weight: 219 lbs 03/20/2018 Blood Pressure 1: 122/64 Code: 8480-6 BMI: 29.7 Code: 21585-4 Heart Rate 1: 73 bpm Height: 6' SpO2: 96% Weight: 219 lbs 02/24/2018 Blood Pressure 1: 108/62 Code: 8480-6 BMI: 29.0 Code: 26623-7 Heart Rate 1: 67 bpm Height: 6' SpO2: 98% Weight: 214 lbs 12/04/2017 Blood Pressure 1: 142/70 Code: 8480-6 BMI: 28.2 Code: 18251-5 Heart Rate 1: 103 bpm Height: 6' SpO2: 94% Weight: 208 lbs 10/24/2017 Heigh t: Weight: 08/28/2017 Blood Pressure 1: 130/72 Code: 8480-6 BMI: 28.3 Code: 83022-7 Heart Rate 1: 60 bpm Height: 6' SpO2: 96% Weight: 209 lbs 07/31/2017 Blood Pressure 1: 126/64 Code: 8480-6 BMI: 29.7 Code: 41582-1 Heart Rate 1: 59 bpm Height: 6' SpO2: 95% Weight: 219 lbs 06/04/2017 Blood Pressure 1: 134/86 Code: 8480-6 BMI: 28.6 Code: 15352-1 Heart Rate 1: 91 bpm Height: 6' SpO2: 97% Weight: 211 lbs 02/04/2017 Blood Pressure 1: 128/74 Code: 8480-6 BMI: 28.3 Code: 30045-1 Heart Rate 1: 63 bpm Height: 6' SpO2: 96% Weight: 209 lbs 10/18/2016 BMI: 27.7 Code: 19214-8 Height: 6' Weight: 204 lbs 10/03/2016 Blood Pressure 1: 118/70 Code: 8480-6 BMI: 27.7 Code: 87099-1 Heart Rate 1: 58 bpm Height: 6' SpO2: 95% Weight: 204 lbs 07/02/2016 Blood Pressure 1: 104/64 Code: 8480-6 BMI: 28.5 Code: 69588-5 Heart Rate 1: 63 bpm Height: 6' SpO2: 98% Weight: 210 lbs 04/04/2016 Blood Pressure 1: 116/62 Code: 8480-6 BMI: 29.9 Code: 21025-1 Heart Rate 1: 59 bpm Height: 6' SpO2: 98% Weight: 220 lbs 8 oz 01/04/2016 Blood Pressure 1: 136/78 Code: 8480-6 BMI: 29.6 Code: 15113-5 Heart Rate 1: 55 bpm Height: 6' SpO2: 97% Weight: 218 lbs 10/04/2015 Blood Pressure 1: 130/80 Code: 8480-6 BMI: 29.3 Code: 38441-8 Heart Rate 1: 69 bpm Height: 6' SpO2: 97% Weight: 216 lbs 08/30/2015 Blood Pressure 1: 112/64 Code: 8480-6 BMI: 30.4 Code: 93316-9 Heart Rate 1: 68 bpm Height: 6' SpO2: 95% Weight: 224 lbs 8 oz 08/02/2015 Blood Pressure 1: 120/70 Code: 8480-6 BMI: 30.1 Code: 18229-2 Heart Rate 1: 55 bpm Height: 6' SpO2: 97% Weight: 222 lbs 04/21/2015 Blood Pressure 1: 160/86 Code: 8480-6 Blood Pressure 1: 138/82 Code: 8480-6 BMI: 30.9 Code: 88102-1 Heart Rate 1: 96 bpm Height: 6' SpO2: 96% Weight: 228 lbs 03/21/2015 Blood Pressure 1: 124/82 Code: 8480-6 BMI: 30.0 Code: 59855-4 Heart Rate 1: 78 bpm Height: 6' SpO2: 98% Weight: 221 lbs 01/05/2015 Blood Pressure 1: 138/78 Code: 8480-6 BMI: 29.3 Code: 47146-9 Heart Rate 1: 61 bpm Height: 6' SpO2: 98% Weight: 216 lbs 10/06/2014 Blood Pressure 1: 130/78 Code: 8480-6 BMI: 29.3 Code: 79477-4 Heart Rate 1: 71 bpm Height: 6' SpO2: 97% Weight: 216 lbs Functional Status No Functional Status data History of Present Illness Symptom Name Status Resu lt Effective Date Notes Onset of Symptom _ yea rs ago 10/27/2018 None Frequency of Episodes daily 10/27/2018 None Pertinent Findings dec reased energy level 10/27/2018 None Pertinent Findings pam th breathing 10/27/2018 None Pertinent Findings noc turnal awakenings 10/27/2018 None Pertinent Findings res tless sleep 10/27/2018 None Location diffusely 06/08/2018 low back pain, takes hydrocodone Location lumbar spine 06/08/2018 None Onset and Resolution o ngoing 06/08/2018 None Limitation on Activities moderately limits activities 06/08/2018 None Frequency of Episodes unchanged 06/08/2018 None Triggers no known asso ciated factors 06/08/2018 None Alleviating Factors me dication 06/08/2018 None Initial treatment medi cation 06/08/2018 None Radiating down left leg 06/08/2018 None Quality primary hypert ension 06/08/2018 None Onset and Resolution o ngoing 06/08/2018 None Onset of Symptom durin g adulthood 06/08/2018 None Blood Pressure Values patient checking blood pressure at home - did not bring in readings 06/08/2018 -Checks occasionally Alleviating Factors me dication 06/08/2018 None Pertinent Findings diz ziness 06/08/2018 occasionally Pertinent Findings Den ies dyspnea 06/08/2018 None Pertinent Findings edema 06/08/2018 in his left foot Location on the left 06/08/2018 (worse) Location on the right 06/08/2018 -becoming unstable Frequency of Episodes unchanged 06/08/2018 None Alleviating Factors saúl int immobilizer 06/08/2018 None Exacerbating Factors e xertion 06/08/2018 None Exacerbating Factors w eight bearing 06/08/2018 None Pertinent Findings ginna n with movement 06/08/2018 None Pertinent Findings sen sation of buckling 06/08/2018 None Quality dull pain 06/08/2018 None Quality chronic 06/08/2018 None Pertinent Findings pal pitations 06/08/2018 None Quality chronic 04/03/2018 None Onset and Resolution o ngoing 04/03/2018 None Limitation on Activities does not limit activities 04/03/2018 None Frequency of Episodes decreasing 04/03/2018 None Triggers no known asso ciated factors 04/03/2018 None Alleviating Factors ac tivity 04/03/2018 None Alleviating Factors me dication 04/03/2018 None Pertinent Findings Den ies chills 04/03/2018 None Quality chronic 03/20/2018 None Onset and Resolution o ngoing 03/20/2018 None Onset of Symptom _ day s ago 03/20/2018 None Limitation on Activities does not limit activities 03/20/2018 None Frequency of Episodes decreasing 03/20/2018 None Triggers no known asso ciated factors 03/20/2018 None Alleviating Factors me dication 03/20/2018 None Alleviating Factors ac tivity 03/20/2018 None Pertinent Findings Den ies chills 03/20/2018 None Location in the lung 03/20/2018 None Quality chronic 03/20/2018 None Onset and Resolution D enies ongoing 03/20/2018 None Limitation on Activities does not limit activities 03/20/2018 None Frequency of Episodes increasing 03/20/2018 None Significant Medical Conditions pulmonary disease 03/20/2018 None Significant Medical Conditions cardiac disease 03/20/2018 None Significant Medications albuterol 03/20/2018 None Triggers Denies cigare tte smoking 03/20/2018 None Pertinent Findings Den ies dyspnea 03/20/2018 None Hospital Follow Up _ Oth er: atrial flutter 02/24/2018 None Hospital Follow Up Quality acute illness 02/24/2018 None Hospital Follow Up Quality improving 02/24/2018 None cough Quality acute 02/24/2018 None cough Quality intermitte nt 02/24/2018 None cough Onset and Resolution sudden in onset 02/24/2018 None cough Onset of Symptom 1 weeks ago 02/24/2018 None cough Frequency of Episodes daily 02/24/2018 None cough Pertinent Findings Denies chills 02/24/2018 None cough Pertinent Findings Denies fever 02/24/2018 None Hospital Follow Up Alleviating Factors medication 02/24/2018 None medication follow up Location oral intake 12/04/2017 None back pain Location susanu sely 12/04/2017 low back pain, takes hydr ocodone back pain Location lumba r spine 12/04/2017 None back pain Onset and Resolution ongoing 12/04/2017 None back pain Limitation on Activities moderately limits activities 12/04/2017 None back pain Triggers no kn own associated factors 12/04/2017 None back pain Alleviating [...] Denies edema 12/04/2017 in his left leg- intermit tent arm pain Location right arm 12/04/2017 None arm pain Radiating Right Shoulder 12/04/2017 None arm pain Quality intermi ttent 12/04/2017 None arm pain Onset of Symptom 3 weeks ago 12/04/2017 None arm pain Pertinent Findings right hand dominant 12/04/2017 None arm pain Pertinent Findings pain with movement 12/04/2017 improving. Annual Medicare Wellness Exam Depres jovanny (last 6 months) almost never 10/24/2017 None Annual Medicare Wellness Exam Depres jovanny or Hopelessness almost never 10/24/2017 None Annual Medicare Wellness Exam Descri be Your Health fair 10/24/2017 None Annual Medicare Wellness Exam Exerci se Habits exercises _ days per week 10/24/2017 None Annual Medicare Wellness Exam Motor Vehicle Safety always fastens seat belt: y 10/25/19 18 None Annual Medicare Wellness Exam Smokin g and Tobacco Use cigarette smoker 10/24/2017 None Annual Medicare Wellness Exam Social & Emotional Support usually 10/24/2017 None Annual Medicare Wellness Exam Aspirin Use yes 10/24/2017 81mg Annual Medicare Wellness Exam Blood Glucose (self reported) don't know 10/24/2017 No ne Annual Medicare Wellness Exam Blood Pressure (self reported) diagnosed with hypertension 10/25/19 18 None Annual Medicare Wellness Exam Choles terol (self reported) diagnosed with elevated cholesterol 10/24/2017 None Annual Medicare Wellness Exam Ronda eubanks Stress usually manny effectively 10/24/2017 None Annual Medicare Wellness Exam Hemagl obin A-1C (self reported) don't know 10/24/2017 No ne Annual Medicare Wellness Exam Hours of Sleep 6-8 10/24/2017 None Annual Medicare Wellness Exam Intera ction with Friends yes 10/24/2017 None Annual Medicare Wellness Exam Intere sts & Pleasure almost never 10/24/2017 None Annual Medicare Wellness Exam Life S atisfaction satisfied 10/24/2017 Non e Annual Medicare Wellness Exam Nutrition servings of [...] oral intake 08/28/2017 None back pain Location diffu sely 08/28/2017 low back pain, takes hydr ocodone back pain Location lumba r spine 08/28/2017 None back pain Onset and Resolution ongoing 08/28/2017 None back pain Limitation on Activities moderately limits activities 08/28/2017 None back pain Triggers no kn own associated factors 08/28/2017 None back pain Alleviating [...] Findings edema 08/28/2017 in his left leg- intermit tent knee pain Location on th e left 08/28/2017 (worse) knee pain Location on th e right 08/28/2017 None knee pain Alleviating Factors joint immobilizer 08/28/2017 None knee pain Exacerbating Factors exertion 08/28/2017 None knee pain Exacerbating Factors weight bearing 08/28/2017 None medication follow up Additional Comments medication use 07/31/2017 None medication follow up Location oral intake 07/31/2017 None cough Location in the th roat 07/31/2017 None cough Quality constant 07/31/2017 None cough Quality dry 07/31/2017 None cough Onset and Resolution ongoing 07/31/2017 None cough Onset of Symptom 2 months ago 07/31/2017 None cough Frequency of Episodes daily 07/31/2017 None back pain Location diffu sely 07/31/2017 low back pain, takes hydr ocodone back pain Location lumba r spine 07/31/2017 None back pain Onset and Resolution ongoing 07/31/2017 None back pain Limitation on Activities moderately limits activities 07/31/2017 None back pain Frequency of Episodes unchanged 07/31/2017 None back pain Triggers no kn own associated factors 07/31/2017 None back pain Alleviating Factors medication 07/31/2017 None back pain Initial treatment medication 07/31/2017 None back pain Radiating down left leg 07/31/2017 None hypertension Quality halle sylvie hypertension 07/31/2017 None hypertension Onset and Resolution [...] Findings edema 07/31/2017 in his left leg- intermit tent knee pain Location on th e left 07/31/2017 (worse) knee pain Location on th e right 07/31/2017 None knee pain Quality consta nt 07/31/2017 None knee pain Frequency of Episodes unchanged 07/31/2017 None knee pain Alleviating Factors joint immobilizer 07/31/2017 None knee pain Exacerbating Factors exertion 07/31/2017 None knee pain Exacerbating Factors weight bearing 07/31/2017 None knee pain Pertinent Findings pain with movement 07/31/2017 None knee pain Pertinent Findings sensation of buckling 07/31/2017 None back pain Location diffu sely 06/04/2017 low back pain, takes hydr ocodone back pain Location lumba r spine 06/04/2017 None back pain Onset and Resolution ongoing 06/04/2017 None back pain Limitation on Activities moderately limits activities 06/04/2017 None back pain Triggers no kn own associated factors 06/04/2017 None back pain Alleviating [...] Findings edema 06/04/2017 in his left leg- intermit tent knee pain Location on th e left 06/04/2017 (worse) knee pain Location on th e right 06/04/2017 None knee pain Alleviating Factors joint immobilizer 06/04/2017 None knee pain Exacerbating Factors exertion 06/04/2017 None knee pain Exacerbating Factors weight bearing 06/04/2017 None hypertension Quality halle sylvie hypertension 06/04/2017 None knee pain Pertinent Findings sensation of buckling 06/04/2017 None knee pain Pertinent Findings pain with movement 06/04/2017 None knee pain Quality consta nt 06/04/2017 None knee pain Frequency of Episodes unchanged 06/04/2017 None back pain Frequency of Episodes unchanged 06/04/2017 None back pain Location diffu sely 02/04/2017 low back pain, takes hydr ocodone back pain Location lumba r spine 02/04/2017 None back pain Onset and Resolution ongoing 02/04/2017 None back pain Limitation on Activities moderately limits activities 02/04/2017 None back pain Triggers no kn own associated factors 02/04/2017 None back pain Alleviating [...] Findings edema 02/04/2017 in his left leg- intermit tent knee pain Location on th e left 02/04/2017 (worse) knee pain Location on th e right 02/04/2017 None knee pain Alleviating Factors [...] Blood Glucose (self reported) don't know 10/18/2016 No ne Annual Medicare Wellness Exam Blood Pressure (self reported) don't know 10/18/2016 No ne Annual Medicare Wellness Exam Choles terol (self reported) don't know 10/18/2016 No ne Annual Medicare Wellness Exam Depres jovanny (last 6 months) almost never 10/18/2016 None Annual Medicare Wellness Exam Depres jovanny or Hopelessness almost never 10/18/2016 None Annual Medicare Wellness Exam Descri be Your Health fair 10/18/2016 None Annual Medicare Wellness Exam Exerci se Habits exercises 1 days per week 10/18/2016 None Annual Medicare Wellness Exam Handli ng Stress usually manny effectively 10/18/2016 None Annual Medicare Wellness Exam Hemagl obin A-1C (self reported) don't know 10/18/2016 No ne Annual Medicare Wellness Exam Hours of Sleep 6-8 10/18/2016 None Annual Medicare Wellness Exam Intera ction with Friends yes 10/18/2016 None Annual Medicare Wellness Exam Intere sts & Pleasure almost never 10/18/2016 None Annual Medicare Wellness Exam Life S atisfaction satisfied 10/18/2016 Non e Annual Medicare Wellness Exam Motor Vehicle Safety always fastens seat belt: y 10/19/19 17 None Annual Medicare Wellness Exam Nutrition servings of vegetables / fruit per day: few 10/18/2016 None Annual Medicare Wellness Exam Smokin g and Tobacco Use cigarette smoker 10/18/2016 None Annual Medicare Wellness Exam Social & Emotional Support usually 10/18/2016 None Annual Medicare Wellness Exam Stress some of the time 10/18/2016 None Annual Medicare Wellness Exam Sun Exposure protects skin when outdoors: n 10/18/2016 None back pain Location diffu sely 10/03/2016 low back pain, takes hydr ocodone back pain Location lumba r spine 10/03/2016 None back pain Onset and Resolution ongoing 10/03/2016 None back pain Limitation on Activities moderately limits activities 10/03/2016 None back pain Triggers no kn own associated factors 10/03/2016 None back pain Alleviating [...] Findings edema 10/03/2016 in his left leg- intermit tent knee pain Location on th e left 10/03/2016 (worse) knee pain Location on th e right 10/03/2016 None knee pain Alleviating Factors joint immobilizer 10/03/2016 None knee pain Exacerbating Factors exertion 10/03/2016 None knee pain Exacerbating Factors weight bearing 10/03/2016 None back pain Location diffu sely 07/02/2016 low back pain, takes hydr ocodone back pain Location lumba r spine 07/02/2016 None back pain Onset and Resolution ongoing 07/02/2016 None back pain Limitation on Activities moderately limits activities 07/02/2016 None back pain Triggers no kn own associated factors 07/02/2016 None back pain Alleviating [...] Findings edema 07/02/2016 in his left leg- intermit tent knee pain Location on th e left 07/02/2016 (worse) knee pain Location on th e right 07/02/2016 None knee pain Alleviating Factors joint immobilizer 07/02/2016 None knee pain Exacerbating Factors exertion 07/02/2016 None knee pain Exacerbating Factors weight bearing 07/02/2016 None hypothyroid Onset and Resolution ongoing 07/02/2016 None hypothyroid Alleviating Factors medication 07/02/2016 None back pain Radiating down left leg 07/02/2016 None back pain Location diffu sely 04/04/2016 low back pain, takes hydr ocodone back pain Location lumba r spine 04/04/2016 None back pain Onset and Resolution ongoing 04/04/2016 None back pain Limitation on Activities moderately limits activities 04/04/2016 None back pain Triggers no kn own associated factors 04/04/2016 None back pain Alleviating [...] Findings edema 04/04/2016 in his left leg- intermit tent knee pain Location on th e left 04/04/2016 (worse) knee pain Alleviating Factors joint immobilizer 04/04/2016 None knee pain Exacerbating Factors exertion 04/04/2016 None knee pain Exacerbating Factors weight bearing 04/04/2016 None hypothyroid Onset and Resolution ongoing 04/04/2016 None hypothyroid Alleviating Factors medication 04/04/2016 None knee pain Location on th e right 04/04/2016 None back pain Location diffu sely 01/04/2016 low back pain, takes hydr ocodone back pain Location lumba r spine 01/04/2016 None back pain Onset and Resolution ongoing 01/04/2016 None back pain Limitation on Activities moderately limits activities 01/04/2016 None back pain Triggers no kn own associated factors 01/04/2016 None back pain Alleviating [...] edema 01/04/2016 None knee pain Location on th e left 01/04/2016 None knee pain Alleviating Factors joint immobilizer 01/04/2016 None knee pain Exacerbating Factors exertion 01/04/2016 None knee pain Exacerbating Factors weight bearing 01/04/2016 None back pain Location diffu sely 10/04/2015 low back pain, takes hydr ocodone back pain Location lumba r spine 10/04/2015 None back pain Onset and Resolution ongoing 10/04/2015 None back pain Limitation on Activities moderately limits activities 10/04/2015 None back pain Triggers no kn own associated factors 10/04/2015 None back pain Alleviating [...] edema 10/04/2015 None knee pain Location on th e left 10/04/2015 None knee pain Alleviating Factors joint immobilizer 10/04/2015 None knee pain Exacerbating Factors exertion 10/04/2015 None knee pain Exacerbating Factors weight bearing 10/04/2015 None back pain Location diffu sely 08/30/2015 low back pain, takes hydr ocodone prescribed by the [place] back pain Location lumba r spine 08/30/2015 None back pain Onset and Resolution ongoing 08/30/2015 None back pain Triggers no kn own associated factors 08/30/2015 None back pain Alleviating [...] limits activities 08/30/2015 None back pain Location diffu sely 08/02/2015 low back pain, takes hydr ocodone prescribed by the [place] back pain Location lum r spine 08/02/2015 None back pain Onset and Resolution ongoing 08/02/2015 None back pain Limitation on Activities does not limit activities 08/02/2015 None back pain Triggers no kn own associated factors 08/02/2015 None back pain Alleviating [...] Factors diet 08/02/2015 None back pain Location jaclyn walker 04/21/2015 low back pain, takes hydr ocodone initially prescribed by the [place] back pain Location lum r spine 04/21/2015 None back pain Onset and Resolution ongoing 04/21/2015 None back pain Limitation on Activities does not limit activities 04/21/2015 None back pain Triggers no kn own associated factors 04/21/2015 None back pain Alleviating [...] inguinal area 03/21/2015 None abdominal pain Quality c hronic 03/21/2015 None abdominal pain Quality i ntermittent 03/21/2015 None abdominal pain Onset and Resolution [...] 01/05/2015 None blood pressure followup Onset and Re solution ongoing 01/05/2015 None blood pressure followup Onset of Symptom during adulthood 01/05/2015 None blood pressure followup Blood Pressu re Values not checking blood pressure at home 01/05/2015 None blood pressure followup Frequency of Episodes unchanged 01/05/2015 Non e blood pressure followup Triggers stress 01/05/2015 None blood pressure followup Alleviating Factor s medication 01/05/2015 None blood pressure followup Alleviating Factor s medication 10/06/2014 None blood pressure followup Blood Pressu re Values not checking blood pressure at home 10/06/2014 None blood pressure followup Frequency of Episodes unchanged 10/06/2014 Non e blood pressure followup Onset and Re solution ongoing 10/06/2014 None blood pressure followup Onset [...] No Advance Directive data Encounters Encounter Performer Loca tion Codes Date ([id number]) [id number] EST. P ATIENT, LEVEL IV Diagnosis: Essential (primary) hypertension[ICD10: I10] Diagnosis: Atrophy of thyroid (acquired)[ICD10: E03.4] Diagnosis: Obstructive sleep apnea (adult) (pediatric)[ICD10: G47.33] Pepper Baeza MD, C CPT-4: 39472 10/27/2018 ([id number]) [id number] EST. P ATIENT, LEVEL IV Diagnosis: Essential (primary) hypertension[ICD10: I10] Diagnosis: Chronic pain syndrome[ICD10: G89.4] Diagnosis: Atrophy of thyroid (acquired)[ICD10: E03.4] Pepper Baeza MD, [facility] CPT-4: 74942 06/08/2018 ([id number]) [id number] EST. P ATIENT, LEVEL III Diagnosis: Essential (primary) hypertension[ICD10: I10] Diagnosis: Chronic obstructive pulmonary disease, unspecified[ICD10: J44.9] Diagnosis: Chronic pain syndrome[ICD10: G89.4] Elaine Baeza MD, [facility] CPT-4: 82328 04/03/2018 ([id number]) [id number] EST. P ATIENT, LEVEL IV Diagnosis: Paroxysmal atrial fibrillation[ICD10: I48.0] Diagnosis: Cough[ICD10: R05] Diagnosis: Chronic obstructive pulmonary disease, unspecified[ICD10: J44.9] Elaine Baeza MD, [facility] CPT-4: 88392 03/20/2018 ([id number]) 24042 EST. P ATIENT, LEVEL IV Diagnosis: Paroxysmal atrial fibrillation[ICD10: I48.0] Diagnosis: Essential (primary) hypertension[ICD10: I10] Diagnosis: Cough[ICD10: R05] Elaine Baeza MD, [facility] CPT-4: 85605 02/24/2018 ([id number]) 90056 EST. P ATIENT, LEVEL IV Diagnosis: Essential (primary) hypertension[ICD10: I10] Diagnosis: Atrophy of thyroid (acquired)[ICD10: E03.4] Diagnosis: Pain in left knee[ICD10: M25.562] Diagnosis: Pain in right knee[ICD10: M25.561] Diagnosis: Mixed hyperlipidemia[ICD10: E78.2] Pepper Baeza MD, [facility] CPT- 4: 21287 12/04/2017 ([id number]) 91587 EST. P ATIENT, LEVEL IV Diagnosis: Essential (primary) hypertension[ICD10: I10] Diagnosis: Pain in left knee[ICD10: M25.562] Diagnosis: Pain in right knee[ICD10: M25.561] Diagnosis: Pain in right hip[ICD10: M25.551] Pepper Baeza MD, [facility] CPT-4: 51874 08/28/2017 ([id number]) 53116 EST. P ATIENT, LEVEL IV Diagnosis: Chronic pain syndrome[ICD10: G89.4] Diagnosis: Tobacco use[ICD10: Z72.0] Diagnosis: Localized enlarged lymph nodes[ICD10: R59.0] Pepper Baeza MD, [facility] CPT-4: 06744 07/31/2017 ([id number]) 55022 EST. P ATIENT, LEVEL IV Diagnosis: Essential (primary) hypertension[ICD10: I10] Diagnosis: Chronic pain syndrome[ICD10: G89.4] Diagnosis: Atrophy of thyroid (acquired)[ICD10: E03.4] Diagnosis: Tobacco use[ICD10: Z72.0] Pepper Baeza MD, [facility] CPT-4: 76187 06/04/2017 ([id number]) 60773 EST. P ATIENT, LEVEL IV Diagnosis: Essential (primary) hypertension[ICD10: I10] Diagnosis: Low back pain[ICD10: M54.5] Diagnosis: Iliotibial band syndrome, right leg[ICD10: M76.31] Diagnosis: Chronic pain syndrome[ICD10: G89.4] Diagnosis: Encounter for immunization[ICD10: Z23] Pepper Baeza MD, [facility] CPT-4: 44376 02/04/2017 ([id number]) 66221 EST. P ATIENT, LEVEL IV Diagnosis: Essential (primary) hypertension[ICD10: I10] Diagnosis: Chronic pain syndrome[ICD10: G89.4] Diagnosis: Low back pain[ICD10: M54.5] Diagnosis: Pain in right knee[ICD10: M25.561] Diagnosis: Pain in left knee[ICD10: M25.562] Pepper Baeza MD, [facility] CPT-4: 66875 10/03/2016 ([id number]) 00243 EST. P ATIENT, LEVEL IV Diagnosis: Essential (primary) hypertension[ICD10: I10] Diagnosis: Mixed hyperlipidemia[ICD10: E78.2] Diagnosis: Chronic pain syndrome[ICD10: G89.4] Diagnosis: Atrophy of thyroid (acquired)[ICD10: E03.4] Pepper Baeza MD, [facility] CPT-4: 36044 07/02/2016 ([id number]) 94382 EST. P ATIENT, LEVEL IV Diagnosis: Essential (primary) hypertension[ICD10: I10] Diagnosis: Tobacco use[ICD10: Z72.0] Diagnosis: Chronic pain syndrome[ICD10: G89.4] Pepper Baeza MD, [facility] CPT- 4: 71037 04/04/2016 ([id number]) 85254 EST. P ATIENT, LEVEL IV Diagnosis: Encounter for immunization[ICD10: Z23] Diagnosis: Essential (primary) hypertension[ICD10: I10] Diagnosis: Chronic pain syndrome[ICD10: G89.4] Diagnosis: Tobacco use[ICD10: Z72.0] Diagnosis: Mixed hyperlipidemia[ICD10: E78.2] Diagnosis: Gastro-esophageal reflux disease without esophagitis[ICD10: K21.9] Pepper Baeza MD, [facility] CPT-4: 18154 01/04/2016 ([id number]) 61170 EST. P ATIENT, LEVEL IV Diagnosis: Essential (primary) hypertension[ICD10: I10] Diagnosis: Chronic pain syndrome[ICD10: G89.4] Diagnosis: Tobacco use[ICD10: Z72.0] Pepper Baeza MD, [facility] CPT-4: 22758 10/04/2015 ([id number]) 46125 EST. P ATIENT, LEVEL III Diagnosis: Chronic pain syndrome[ICD10: G89.4] Diagnosis: Low back pain[ICD10: M54.5] Diagnosis: Tobacco use[ICD10: Z72.0] Diagnosis: Mixed hyperlipidemia[ICD10: E78.2] Pepper Baeza MD, [facility] CPT- 4: 52367 08/30/2015 ([id number]) 16046 EST. P ATIENT, LEVEL IV Diagnosis: Essential (primary) hypertension[ICD10: I10] Diagnosis: Low back pain[ICD10: M54.5] Diagnosis: Chronic pain syndrome[ICD10: G89.4] Pepper Baeza MD, [facility] CPT- 4: 31961 08/02/2015 ([id number]) 61322 EST. P ATIENT, LEVEL III Diagnosis: Essential (primary) hypertension[ICD10: I10] Diagnosis: Low back pain[ICD10: M54.5] Elaine Whitehead Pepper Baeza MD, [facility] CPT- 4: 62296 04/21/2015 ([id number]) 02736 EST. P ATIENT, LEVEL IV Diagnosis: Epigastric pain[ICD10: R10.13] Diagnosis: Essential (primary) hypertension[ICD10: I10] Diagnosis: Gastro-esophageal reflux disease without esophagitis[ICD10: K21.9] Pepper Baeza MD, [facility] CPT-4: 49101 03/21/2015 ([id number]) 34594 EST. P ATIENT, LEVEL III Diagnosis: ESSENTIAL HYPERTENSION[ICD9: 401.9] Diagnosis: SCIATICA[ICD9: 724.3] Pepper Baeza MD, [facility] CPT-4: 82890 01/05/2015 ([id number]) OFFICE [facility] LEVEL 4 Diagnosis: ESSENTIAL HYPERTENSION[ICD9: 401.9] Diagnosis: HYPOTHYROIDISM[ICD9: 244.9] Diagnosis: ESOPHAGEAL REFLUX[ICD9: 530.81] Pepper Baeza MD, [facility] CPT-4: 06154 10/06/2014 Plan of Care Planned Activity Notes C odes Status Date Visit Plan: Hypotension - CAD - - d ecrease lisinopril to 1/2 tablet one pill daily. Hypothyroidism - pt with chronic hypothyroidism, continue with current medication, will monitor pt to signs or symptoms of lack of adequate supplementation. Pt is to continue with current dose of medication unless directed otherwise. Check labs at regular intervals q 3 months or q 6 months based on previous levels of control. Sleep apnea - unable to tolerate the 16mmHg pressure - I have therefore recommended that we decrease his CPAP pressure decrease down to 12# pressure, my office will- send a note to Dr. Benito and [facility] [place] about decreasing the pressure due to pt discomfort and lack of sleep. 10/27/2018 Appointment: Pepper Baeza WPtel: [phone] [phone] (15 min) Moderate 10/27/2018 Patient Education: Patient Medication Summary Completed 10/27/2018 Appointment: Pepper Baeza WPtel: [phone] [facility] (15 min) Moderate 10/01/2018 Visit Plan: Hypertension - well con trolled - continue with current medications, continue with [...] directed otherwise. Check labs at regular intervals q 3 months or q 6 months based on previous levels of control. Chronic Pain Syndrome - pt has chronic pain - has been maintained on current medications, has not sought out other medications, only uses PRN pain medications as directed, and understands the consequences of over-medication. 06/08/2018 Appointment: Pepper Baeza WPtel: [phone] [facility] [place] (15 min) Moderate 06/08/2018 Patient Education: Patient Medication Summary Completed 06/08/2018 App[facility]ment: [phone] [facility] [place] (15 min) Moderate 04/08/2018 Visit Plan: Hypertension - well con trolled - continue with current medications, continue with [...] directed, and understands the consequences of over-medication. COPD-seeing Dr Benito 04/03/2018 Appointment: Elaine Whitehead WPtel: [phone] [phone] [place] (30 min) Complex 04/03/2018 Patient Education: Patient Medication Summary Completed 04/03/2018 Visit Plan: Afib-ablation last week -doing okay- chest pain has resolved COPD -cough- will give rx for nebulizer machine to use as needed to help with wheezing/shortness of breath -advised smoking cessation -patient verbalized understanding of plan. 03/20/2018 [facility]ment: [phone] ([facility] min) Complex 03/20/2018 Patient Education: Patient Medication Summary Completed 03/20/2018 Visit Plan: Afib-hospital follow up cardioversion in the hospital -patient is doing well -sees Dr Subramanian this afternoon -will schedule sleep study HTN-slightly low today-no changes-monitor blood pressure at home Cou gh-monitor symptoms and let us know if cough does not resolve, or if any worse 02/24/2018 Appointment: [facility]head [facility]el[phone] (15 min) Moderate 02/24/2018 Patient Education: Patient Medication Summary Completed 02/24/2018 Appointment: Felix 02/12/2018 Patient Education: Patient Medication Summary Completed 02/12/2018 Visit Plan: Hypertension - well con trolled - continue with current medications, continue with [...] over-medication. 12/04/2017 Visit Plan: Hypertension - well con akshated - continue with current medications, continue with [...] of over-medication. 12/04/2017 Appointment: Pepper Baeza WPtel: [address] [place] [phone] (15 min) Moderate 12/04/2017 Patient Education: Patient Medication Summary Completed 12/04/2017 Visit Plan: Medicare Exam - today w e discussed the patients past history, immunizations, preventative [...] care surrogate. 10/24/2017 Appointment: Parul Collier WPtel: [facility] [facility] - Annual Wellness Visit 10/24/2017 Patient Education: Patient Medication Summary Completed 10/24/2017 Appointment: Pepper Baeza WPtel: [facility] (15 min) Moderate 09/09/2017 Visit Plan: Hypertension - well con trolled - continue with current medications, continue with [...] anterior hip/thigh 08/28/2017 Appointment: Pepper Baeza WPtel: [facility] (15 min) Moderate 08/28/2017 Patient Education: Patient Medication Summary Completed 08/28/2017 Care Plan: X-RAY EXAM OF HIP LOINC : 83466-7 Pending 08/28/2017 Visit Plan: Hypertension - well con trolled - continue with current medications, continue with [...] #180 pills. 07/31/2017 Appointment: [facility]aeza [facility] [phone] [facility] [place] (15 min) Moderate 07/31/2017 Patient Education: Patient Medication Summary Completed 07/31/2017 Care Plan: CT THORAX W/O DYE LOINC : 36806-3 Pending 07/31/2017 Visit Plan: Hypertension - well con trolled - continue with current medications, continue with [...] months based on previous levels of control. C hronic Pain Syndrome - pt has chronic pain - has been maintained on current medications, has not sought out other medications, only uses PRN pain medications as directed, and understands the consequences of over-medication. Knee pain - recommended pt needs to keep appt with Dr. Sagastume tomorrow. 06/04/2017 Visit Plan: Hypertension - well con trolled - continue with current medications, continue with [...] months based on previous levels of control. C hronic Pain Syndrome - pt has chronic pain - has been maintained on current medications, has not sought out other medications, only uses PRN pain medications as directed, and understands the consequences of over-medication. Knee pain - recommended pt needs to keep appt with Dr. Sagastume tomorrow. 06/04/2017 Appointment: Pepper [facility]aeza [facility]Ptel[facility] [phone] [facility] (30 min) Complex 06/04/2017 Patient Education: Patient Medication Summary Completed 06/04/2017 Visit Plan: Hypertension - well con trolled - continue with current medications, continue with [...] today 02/04/2017 Appointment: Pepper Baeza WPtel: [phone] (30 min) Complex 02/04/2017 Patient Education: Patient Medication Summary Completed 02/04/2017 Patient Education: Smoking and Tobacco Addiction Completed 02/04/2017 Visit Plan: Medicare Exam - today w e discussed the patients past history, immunizations, preventative [...] surrogate. 10/18/2016 Appointment: Parul Collier WPtel: [phone] [facility] [facility] - Annual Wellness Visit 10/18/2016 Patient Education: Patient Medication Summary Completed 10/18/2016 Patient Education: Smoking and Tobacco Addiction Completed 10/18/2016 Visit Plan: Low back pain - and kne e pain - recommended a referal to [facility] for strengthening, knee pain, back [...] stenting. 10/03/2016 Appointment: Pepper Baeza WPtel: [phone] [email or web address] (30 min) Complex 10/03/2016 Patient Education: Patient Medication Summary Completed 10/03/2016 Patient Education: Smoking and Tobacco Addiction Completed 10/03/2016 Visit Plan: Hypertension - well con trolled - continue with current medications, continue with [...] this time. 07/02/2016 Appointment: Pepper Baeza WPtel: [phone] [phone] (30 min) Complex 07/02/2016 Patient Education: Patient Medication Summary Completed 07/02/2016 Patient Education: Smoking and Tobacco Addiction Completed 07/02/2016 Visit Plan: Hypertension - well con trolled - continue with current medications, continue with [...] smoking. 04/04/2016 Appointment: Pepper [facility]aeza [facility]Ptel[phone] [facility] (30 min) Complex 04/04/2016 Patient Education: Patient Medication Summary Completed 04/04/2016 Patient Education: Smoking and Tobacco Addiction Completed 04/04/2016 Visit Plan: Hypertension - well con trolled - continue with current medications, continue with [...] not improving. 01/04/2016 Appointment: Pepper [facility]aeza [facility]Ptel[phone] [facility] (15 min) Moderate 01/04/2016 Patient Education: Patient Medication Summary Completed 01/04/2016 Patient Education: Smoking and Tobacco Addiction Completed 01/04/2016 Patient Education: Hypertension Completed 01/04/2016 Visit Plan: Hypertension - well con trolled - continue with current medications, continue with [...] directed, and understands the consequences of over-medication. 10/04/2015 Appointment: Pepper Baeza WPtel: [facility] (15 min) Moderate 10/04/2015 Patient Education: [...] Completed 08/30/2015 Visit Plan: Hypertension - well con trolled - continue with current medications, continue with [...] currently interested in stopping smoking. 08/02/2015 Appointment: [place] [facility]el[phone] [facility] (15 min) Moderate 08/02/2015 Patient Education: [...] pain. The patient was also encouraged to co ntinue with back exercises as previously directed. Pt [...] Completed 04/21/2015 Visit Plan: Hypertension - well con trolled - continue with current medications, continue with [...] Completed 03/21/2015 Visit Plan: Hypertension - well con trolled - continue with current medications, continue with [...] [place] 01/05/2015 Visit Plan: Hypertension - well con trolled - continue with current medications, continue with [...] Completed 01/05/2015 Visit Plan: Hypertension - well con trolled - continue with current medications, continue with [...] months based on previous levels of control. E sophageal Reflux - the patient has been counseled [...] to patient. 10/06/2014 Appointment: Pepper Baeza WPtel: [address] [place] [phone] [place] ([place]) New Patient 10/06/2014 Patient Education: Patient Medication Summary Completed 10/06/2014 Patient Education: Hypertension Completed 10/06/2014 Instructions Comment . Hypertension - wel l controlled - continue with current medications, continue [...] Tobacco abuse - recommended stopping smoking. . Medicare Exam - to day we discussed the patients past history, immunizations, [...] for health care surrogate. . Hypertension - wel l controlled - continue with current medications, continue [...] office if the symptoms are not improving. get labs one week be fore your next appt . Low back pain - and knee pain - recomm ended a referal to [facility] for strengthening, knee pain, back [...] need to have work-up, may need stenting. . Hypertension - wel l controlled - continue with current medications, continue [...] if the symptoms are not improving. . Chronic Pain Syndr ome - pt has chronic pain - uncontrolled [...] liver response to medications. . Hypertension - wel l controlled - continue with current medications, continue [...] flu shot given in clinic today . Hypertension - wel l controlled - continue with current medications, continue [...] hydrocodone to #180 pills. . Hypertension - wel l controlled - continue with current medications, continue [...] chronic pain medication at this time. . Chronic Back pain - the patient [...] pressure readings at home. . Hypertension - wel l controlled - continue with current medications, continue [...] his pain in right anterior hip/thigh . Afib-ablation last week -doing okay- chest pain has resolved COPD -cough- will give rx for nebulizer machine to use as needed to help with wheezing/shortness of breath -advised smoking cessation -patient verbalized understanding of plan. . Medicare Exam - to day we discussed the patients past history, immunizations, [...] for health care surrogate. . Hypertension - wel l controlled - continue with current medications, continue [...] the consequences of over-medication. . Hypertension - wel l controlled - continue with current medications, continue [...] directed, and understands the consequences of over-medication. Monitor your blood p ressure at home and record. Bring in your readings to your next appointment, or as directed. Call for chest pain, shortness of breath, headaches, or other concerns. . Hypertension - well controlled - veronica nue with current medications, continue with no added [...] RX given to patient. . Hypertension - wel l controlled - continue with current medications, continue [...] directed otherwise. Check labs at regular intervals q 3 months or q 6 months based on previous levels of control. Chronic Pain Syndrome - pt has chronic pain - has been maintained on current medications, has not sought out other medications, only uses PRN pain medications as directed, and understands the consequences of over-medication. . Hypertension - wel l controlled - continue with current medications, continue [...] is not currently interested in stopping smoking. act, therabreath- lo zenges for dry mouth - another option would be biotine spray or sour candy to help increase saliva supply. . Hypotension - CAD - - decrease lisinop ril to 1/2 tablet one pill daily. Hypothyroidism - pt with chronic hypothyroidism, continue with current medication, will monitor pt to signs or symptoms of lack of adequate supplementation. Pt is to continue with current dose of medication unless directed otherwise. Check labs at regular intervals q 3 months or q 6 months based on previous levels of control. Sleep apnea - unable to tolerate the 16mmHg pressure - I have therefore recommended that we decrease his CPAP pressure decrease down to 12# pressure, my office will- send a note to Dr. Benito and [facility] about decreasing the pressure due to pt discomfort and lack of sleep. SLEEP STUDY . Afib-hospital follow up cardioversion in the hospital -patient is doing well - sees Dr Subramanian this afternoon -will schedule sleep study HTN-slightly low today-no changes-monitor blood pressure at home Cough-monitor symptoms and let us know if cough does not resolve, or if any worse . Hypertension - wel l controlled - continue with current medications, continue [...] directed, and understands the consequences of over-medication. COPD-seeing Dr Benito . Hypertension - wel l controlled - continue with current medications, continue [...] with Dr. Sagastume tomorrow. . Hypertension - wel l controlled - continue with current medications, continue [...] with Dr. Sagastume tomorrow. . Hypertension - wel l controlled - continue with current medications, continue [...] directed, and understands the consequences of over-medication. Carlos Pennsaid . Hypertension - well controlled - veronica nue with current medications, continue with no added [...] Pennsaid . Hypertension - well controlled - veronica nue with current medications, continue with no added [...]
--- OUTSIDE RECORDS SUMMARY | 2019-10-22 10:33 | XMS REPORT | CCD ---
Author Author Kelvin Baeza Organization [facility] Address [address] [place] [address] Phone Care Team Providers Care Wool Sorter Name Role Phone PP Unavailable CCM Unavailable Summary Purpose Interface Exchange Insurance Providers Payer name Policy type / Coverage type Covered democrat ID Effective Begin Date Effective End Date WPS Medicare Part B Medicare Part B [id number] Unknown [facility] Part B [id number] Unkno wn Family history Mother Diagnosis Age [...] Retir ed 10/06/[address]: 57066625 Current every day smoker 10/06/2014 Number of [...] 10 mg-ac etaminophen 325 mg tablet RxNorm: 112802 1-2 Tablet(s) PO Q4 P RN as needed for pain 12/07/2018 01/05/2019 Active levothyroxine 50 mcg tablet RxNorm: 737048 1 TABLET(S) PO DAILY 11/23/2018 08/19/2019 Active hydrocodone 10 mg-ac etaminophen 325 mg tablet RxNorm: 921678 1-2 Tablet(s) PO Q4 P RN as needed for pain 11/03/2018 12/02/2018 Inactive lisinopril 2.5 mg ta blet RxNorm: 740875 1 Tablet(s) PO daily 10/30/2018 10/24/2019 Active metoprolol succinate ER 25 mg tablet,extended release 24 hr RxNorm: 547844 1 TABLET(S) PO DAILY 10/27/2018 07/23/2019 Active lisinopril 5 mg tablet RxNorm: 130131 1/2 Tablet(s) PO daily 10/27/2018 10/29/2018 Inactive FYI - this is an update to his RX - he i s not in need of a refill at this time hydrocodone 10 mg-ac etaminophen 325 mg tablet RxNorm: 997491 1-2 Tablet(s) PO Q4 P RN as needed for pain 2018 10/29/2018 Inactive hydrocodone 10 mg-ac etaminophen 325 mg tablet RxNorm: 211427 1-2 Tablet(s) PO Q4 P RN as needed for pain 08/31/2018 09/29/2018 Inactive doxazosin 4 mg tablet RxNorm: 153992 1 TABLET(S) PO DAILY 08/20/2018 08/14/2019 Active hydrocodone 10 mg-ac etaminophen 325 mg tablet RxNorm: 891270 1-2 Tablet(s) PO Q4 P RN as needed for pain 07/31/2018 08/29/2018 Inactive Lipitor 40 mg tablet RxNorm: 996542 1 TABLET(S) PO DAILY 07/22/2018 07/16/2019 Active hydrocodone 10 mg-ac etaminophen 325 mg tablet RxNorm: 856499 1-2 Tablet(s) PO Q4 P RN as needed for pain 07/01/2018 07/30/2018 Inactive hydrocodone 10 mg-ac etaminophen 325 mg tablet RxNorm: 179549 1-2 Tablet(s) PO Q4 P RN as needed for pain 06/05/2018 06/30/2018 Inactive allopurinol 100 mg t ablet RxNorm: 275132 3 TABLET(S) PO DAILY - 2 IN THE AM AND 1 AT HS 05/18/2018 05/12/2019 Active hydrocodone 10 mg-ac etaminophen 325 mg tablet RxNorm: 996531 1-2 Tablet(s) PO Q4 P RN as needed for pain 05/06/2018 06/04/2018 Inactive hydrocodone 10 mg-ac etaminophen 325 mg tablet RxNorm: 460048 1-2 Tablet(s) PO Q4 P RN as needed for pain 04/03/2018 05/02/2018 Inactive albuterol sulfate 2. 5 mg/3 mL (0.083 %) solution for nebulization RxNorm: 301590 3 Milliliter(s) INH Q4 PRN 03/20/2018 No Stop Date Active hydrocodone 10 mg-ac etaminophen 325 mg tablet RxNorm: 401832 1-2 Tablet(s) PO Q4 P RN as needed for pain 03/02/2018 03/31/2018 Inactive Ranexa 1,000 mg tabl et,extended release RxNorm: 740660 1 Tablet(s) PO BID 02/24/2018 No Stop Date Active levothyroxine 50 mcg tablet RxNorm: 367860 1 TABLET(S) PO DAILY 02/10/2018 11/06/2018 Inactive hydrocodone 10 mg-ac etaminophen 325 mg tablet RxNorm: 453936 1-2 Tablet(s) PO Q4 P RN as needed for pain 02/02/2018 03/01/2018 Inactive pantoprazole 40 mg t ablet,delayed release RxNorm: 099921 1 Tablet(s) PO daily 01/16/2018 01/10/2019 Ac tive metoprolol succinate ER 25 mg tablet,extended release 24 hr RxNorm: 620811 1 TABLET(S) PO DAILY 01/13/2018 10/09/2018 Inactive hydrocodone 10 mg-ac etaminophen 325 mg tablet RxNorm: 930198 1-2 Tablet(s) PO Q4 P RN as needed for pain 12/31/2017 01/29/2018 Inactive hydrocodone 10 mg-ac etaminophen 325 mg tablet RxNorm: 742441 1-2 Tablet(s) PO Q4 P RN as needed for pain 11/28/2017 12/27/2017 Inactive hydrocodone 10 mg-ac etaminophen 325 mg tablet RxNorm: 648001 1-2 Tablet(s) PO Q4 P RN as needed for pain 10/24/2017 11/22/2017 Inactive hydrocodone 10 mg-ac etaminophen 325 mg tablet RxNorm: 878003 1-2 Tablet(s) PO Q4 P RN as needed for pain 09/26/2017 10/23/2017 Inactive doxazosin 4 mg tablet RxNorm: 647347 1 TABLET(S) PO DAILY 08/25/2017 08/19/2018 Inactive allopurinol 100 mg t ablet RxNorm: 638230 3 TABLET(S) PO DAILY - 2 IN THE AM AND 1 AT HS 08/04/2017 04/30/2018 Inactive hydrocodone 10 mg-ac etaminophen 325 mg tablet RxNorm: 624864 1-2 Tablet(s) PO Q4 P RN as needed for pain 07/31/2017 08/29/2017 Inactive Hysingla ER 120 mg t ablet, crush resistant, extended release RxNorm: 3725104 1 Tablet(s) PO daily 07/31/2017 08/27/2017 Inactive hydrocodone 10 mg-ac etaminophen 325 mg tablet RxNorm: 591494 1-2 Tablet(s) PO Q4 P RN as needed for pain 07/03/2017 07/30/2017 Inactive Lipitor 40 mg tablet RxNorm: 401941 1 Tablet(s) PO daily 06/04/2017 05/29/2018 Inactive hydrocodone 10 mg-ac etaminophen 325 mg tablet RxNorm: 451314 1-2 Tablet(s) PO Q4 P RN as needed for pain 06/04/2017 06/26/2017 Inactive Tessalon 200 mg capsule RxNorm: 068891 1 Capsule(s) PO TID as needed cough 05/30/2017 06/03/2017 In active Zithromax Z-Elmer 250 mg tablet RxNorm: 065348 1 Tablet(s) PO UD 05/30/2017 12/08/2017 Inactive Tessalon 200 mg capsule RxNorm: 817077 1 Capsule(s) PO TID as needed cough 05/30/2017 05/29/2017 In active levothyroxine 50 mcg tablet RxNorm: 766295 1 TABLET(S) PO DAILY 05/05/2017 01/29/2018 Inactive metoprolol succinate ER 25 mg tablet,extended release 24 hr RxNorm: 245997 1 TABLET(S) PO DAILY 04/08/2017 01/02/2018 Inactive hydrocodone 10 mg-ac etaminophen 325 mg tablet RxNorm: 499377 1-2 Tablet(s) PO Q4 P RN as needed for pain 04/04/2017 05/03/2017 Inactive hydrocodone 10 mg-ac etaminophen 325 mg tablet RxNorm: 866753 1-2 Tablet(s) PO Q4 P RN as needed for pain 03/03/2017 04/01/2017 Inactive hydrocodone 10 mg-ac etaminophen 325 mg tablet RxNorm: 060610 1-2 Tablet(s) PO Q4 P RN as needed for pain 01/30/2017 02/28/2017 Inactive hydrocodone 10 mg-ac etaminophen 325 mg tablet RxNorm: 366635 1-2 Tablet(s) PO Q4 P RN as needed for pain 01/01/2017 01/28/2017 Inactive hydrocodone 10 mg-ac etaminophen 325 mg tablet RxNorm: 109053 1-2 Tablet(s) PO Q4 P RN as needed for pain 12/02/2016 12/31/2016 Inactive hydrocodone 10 mg-ac etaminophen 325 mg tablet RxNorm: 956611 1-2 Tablet(s) PO Q4 P RN as needed for pain 10/31/2016 11/28/2016 Inactive hydrocodone 10 mg-ac etaminophen 325 mg tablet RxNorm: 869361 1-2 Tablet(s) PO Q4 P RN as needed for pain 10/03/2016 10/29/2016 Inactive pantoprazole 40 mg t ablet,delayed release RxNorm: 602000 1 Tablet(s) PO daily 09/02/2016 12/03/2017 In active hydrocodone 10 mg-ac etaminophen 325 mg tablet RxNorm: 242477 1-2 Tablet(s) PO Q4 P RN as needed for pain 08/30/2016 09/28/2016 Inactive pantoprazole 40 mg t ablet,delayed release RxNorm: 796400 1 Tablet(s) PO daily 08/19/2016 09/01/2016 In active doxazosin 4 mg tablet RxNorm: 810190 1 TABLET(S) PO DAILY 08/12/2016 08/06/2017 Inactive levothyroxine 50 mcg tablet RxNorm: 985703 1 TABLET(S) PO DAILY 08/12/2016 05/04/2017 Inactive metoprolol succinate ER 25 mg tablet,extended release 24 hr RxNorm: 825946 1 TABLET(S) PO DAILY 07/08/2016 04/03/2017 Inactive hydrocodone 10 mg-ac etaminophen 325 mg tablet RxNorm: 356443 1-2 Tablet(s) PO Q4 P RN as needed for pain 07/02/2016 08/29/2016 Inactive hydrocodone 10 mg-ac etaminophen 325 mg tablet RxNorm: 942232 1-2 Tablet(s) PO Q4 P RN as needed for pain 06/05/2016 07/01/2016 Inactive hydrocodone 10 mg-ac etaminophen 325 mg tablet RxNorm: 800204 1-2 Tablet(s) PO Q4 P RN as needed for pain 05/06/2016 05/05/2016 Inactive hydrocodone 10 mg-ac etaminophen 325 mg tablet RxNorm: 829638 1-2 Tablet(s) PO Q4 P RN as needed for pain 05/06/2016 06/04/2016 Inactive allopurinol 100 mg t ablet RxNorm: 433606 3 Tablet(s) PO daily - 2 in the AM and 1 at HS 05/06/2016 04/30/2017 Inactive hydrocodone 10 mg-ac etaminophen 325 mg tablet RxNorm: 943461 1-2 Tablet(s) PO Q4 P RN as needed for pain 03/04/2016 05/05/2016 Inactive hydrocodone 10 mg-ac etaminophen 325 mg tablet RxNorm: 045859 1-2 Tablet(s) PO Q4 P RN as needed for pain 02/01/2016 03/03/2016 Inactive omeprazole 20 mg cap remy,delayed release RxNorm: 668538 1 Capsule(s) PO BID 01/04/2016 07/01/2016 In active atorvastatin 40 mg t ablet RxNorm: 904130 1 Tablet(s) PO daily 01/04/2016 06/03/2017 Inactive lisinopril 10 mg tablet RxNorm: 809704 1 Tablet(s) PO daily 01/04/2016 05/05/2017 Inactive meloxicam 15 mg tablet RxNorm: 655456 TAKE 1 TABLET BY MOUTH EVERY DAY 10/17/2015 07/01/2016 In active levothyroxine 50 mcg tablet RxNorm: 454197 1 TABLET(S) PO DAILY 10/17/2015 07/12/2016 Inactive hydrocodone 10 mg-ac etaminophen 325 mg tablet RxNorm: 463548 1-2 Tablet(s) PO Q4 P RN as needed for pain 10/10/2015 01/31/2016 Inactive Lipitor 40 mg tablet RxNorm: 621475 1 Tablet(s) PO daily 08/30/2015 01/03/2016 Inactive MS Contin 60 mg tabl et,extended release RxNorm: 313388 1 Tablet(s) PO BID 08/30/2015 10/03/2015 In active hydrocodone 10 mg-ac etaminophen 325 mg tablet RxNorm: 882856 1-2 Tablet(s) PO Q4 P RN as needed for pain 08/30/2015 10/09/2015 Inactive doxazosin 4 mg tablet RxNorm: 595639 1 Tablet(s) PO daily 08/02/2015 07/26/2016 Inactive OxyContin 20 mg tabl et,crush resistant,extended release RxNorm: 1733470 1 Tablet(s) PO BID 08/02/2015 08/29/2015 Inactive meloxicam 15 mg tablet RxNorm: 959717 TAKE 1 TABLET BY MOUTH EVERY DAY 07/25/2015 10/16/2015 In active hydrocodone 10 mg-ac etaminophen 325 mg tablet RxNorm: 458606 1 Tablet(s) PO Q4 PRN as needed for pain 07/13/2015 08/29/2015 Inactive levothyroxine 50 mcg tablet RxNorm: 137469 1 Tablet(s) PO daily 07/13/2015 10/10/2015 Inactive metoprolol succinate ER 25 mg tablet,extended release 24 hr RxNorm: 681286 1 Tablet(s) PO daily 06/30/2015 06/23/2016 Inactive hydrocodone 10 mg-ac etaminophen 325 mg tablet RxNorm: 425739 1 Tablet(s) PO Q4 PRN as needed for pain 04/21/2015 07/12/2015 Inactive hydrocodone 10 mg-ac etaminophen 325 mg tablet RxNorm: 918540 1 Tablet(s) PO Q4 PRN as needed for pain 03/30/2015 04/20/2015 Inactive allopurinol 100 mg t ablet RxNorm: 607406 3 Tablet(s) PO 2 at a m 1 at hs UD 02/08/2015 02/02/2016 In active hydrocodone 10 mg-ac etaminophen 325 mg tablet RxNorm: 951045 1 Tablet(s) PO Q4 PRN 01/25/2015 03/29/2015 In active omeprazole 20 mg cap remy,delayed release RxNorm: 898108 1 Capsule(s) PO BID 1 at am 1at pm 01/05/2015 12/30/2015 Inactive hydrocodone 10 mg-ac etaminophen 325 mg tablet RxNorm: 608423 1 Tablet(s) PO Q4 PRN 01/05/2015 01/24/2015 In active Voltaren 1 % topical gel RxNorm: 482805 4 Gram(s) TOP QID 10/06/2014 12/04/2014 Inactive Multivitamin & [place] al Formula oral RxNorm: oral No Start D ate Active potassium 99 mg tablet RxNorm: 1 Tablet(s) PO daily No Start Date Active amiodarone 200 mg ta blet RxNorm: 893080 1 Tablet(s) PO QAM No Start Date Active Eliquis 5 mg tablet RxNorm: 1271170 1/2 Tablet(s) PO BID No Start Date Active B beshlai-E-fjtmutp tablet RxNorm: 1 Tablet(s) PO daily No Start Date Active magnesium oxide 400 mg tablet RxNorm: 266318 1 Tablet(s) PO daily No Start Date Active aspirin 81 mg tablet RxNorm: 822043 1 Tablet(s) PO daily No Start Date Active omega 3 183.3 mg-dha 75 mg-epa 91.6 mg-fish oil 306 mg capsule RxNorm: 1 Capsule(s) PO daily No Start Date Active Calcium + D 600 mg ( 1,500)-200 unit tablet RxNorm: 831647 1 Tablet(s) PO daily No Start Date Active allopurinol 100 mg t ablet RxNorm: 269279 Tablet(s) PO 2 at am 1 at hs No Start Date 02/07/2015 Inactive Zithromax Z-Elmer 250 mg tablet RxNorm: 213429 1 Tablet(s) PO UD No Start Date 05/29/2017 Inactive clopidogrel 75 mg ta blet RxNorm: 321369 1 Tablet(s) PO daily No Start Date 02/23/2018 Inactive pantoprazole 40 mg t ablet,delayed release RxNorm: 123941 1 Tablet(s) PO daily No Start Date 08/18/2016 Inactive lisinopril 5 mg tablet RxNorm: 929587 1/2 Tablet(s) PO BID No Start Date 10/26/2018 Inactive meloxicam 15 mg tablet RxNorm: 016918 1 Tablet(s) PO daily No Start Date 07/24/2015 Inactive doxazosin 4 mg tablet RxNorm: 970624 1 Tablet(s) PO daily No Start Date 08/01/2015 Inactive hydrocodone 7.5 mg-a cetaminophen 325 mg tablet RxNorm: 932669 1 Tablet(s) PO QID as needed for pain No Start Date 10/05/2014 Inactive Vitamin D3 5,000 uni t tablet RxNorm: 570531 1 Tablet(s) PO daily No Start Date 07/01/2016 Inactive B-12 Plus 1,000 mcg/ mL injection solution RxNorm: 116626 1 Milliliter(s) Inj d aily No Start Date 07/01/2016 Inactive magnesium citrate RxNorm: 6574 miscellaneous No Start Date 07/02/2016 Inactive Lipitor 20 mg tablet RxNorm: 885235 1 Tablet(s) PO daily No Start Date 08/29/2015 Inactive metoprolol succinate ER 25 mg tablet,extended release 24 hr RxNorm: 366957 1 Tablet(s) PO daily No Start Date 06/29/2015 Inactive lisinopril 10 mg tablet RxNorm: 673315 1 Tablet(s) PO daily No Start Date 01/03/2016 Inactive levothyroxine 50 mcg tablet RxNorm: 343325 1 Tablet(s) PO daily No Start Date 07/12/2015 Inactive omeprazole 20 mg cap remy,delayed release RxNorm: 977722 1 Capsule(s) PO daily No Start Date 01/18/2018 Inactive Ranexa 500 mg tablet ,extended release RxNorm: 479873 1 Tablet(s) PO BID No Start Date 02/23/2018 Inactive omeprazole 20 mg cap remy,delayed release RxNorm: 293103 Capsule(s) PO daily 1 at am 1at [...] Ord92 LDH 141 U/L 09/22/2018 Comp Metabolic Mpl856 NA 139 mEq/L 09/22/2018 Comp Metabolic Akz705 K 4.5 mEq/L 09/22/2018 Comp Metabolic Obw245 CL 105 mEq/L 09/22/2018 Comp Metabolic Zhf123 CO2 27.0 mEq/L 09/22/2018 Comp Metabolic Uib527 AN ION GAP 12 09/22/2018 Comp Metabolic Bkb452 GL UCOSE 117 mg/dL 09/22/2018 Comp Metabolic Taw861 Cr eat 1.1 mg/dL 09/22/2018 Comp Metabolic Ylq971 eG FR 68 ml/min/1.73m2 09/22 Comp Metabolic Egn758 BUN 14 mg/dL 09/22/2018 Comp Metabolic Ewm222 B/ C Ratio 12.5 Ratio 09/22/2018 Comp Metabolic Ejh267 CA LCIUM 9.3 mg/dL 09/22/2018 Comp Metabolic Ukp977 AL K PHOS 97 U/L 09/22/2018 Comp Metabolic Jqd527 T(SGOT) 19 U/L 09/22/2018 Comp Metabolic Gkg504 AL T(SGPT) 14 U/L 09/22/2018 Comp Metabolic Bpc679 BI LI T 0.6 mg/dL 09/22/2018 Comp Metabolic Rit481 AL BUMIN 4.1 g/dL 09/22/2018 Comp Metabolic Blz378 TP RO 6.5 g/dL 09/22/2018 Comp Metabolic Hic710 GL OB 2.4 g/dL 09/22/2018 Comp Metabolic Qnp608 A/ G Ratio 1.7 Ratio 09/22/2018 Comp Metabolic Val167 Os mo 279 mOsmo 09/22/2018 Cbc With [...] 36.3 pg 09/22/2018 Cbc With Differential Ord2 Hendry% 9.7 % 09/22/2018 Cbc With Differential Ord2 [...] 2.04 K/ul 09/22/2018 Cbc With Differential Ord2 Hendry ABS# 0.7 K/ul 09/22/2018 Cbc With Differential Ord2 Eos ABS# 0.3 K/ul 09/22/2018 Cbc With Differential Ord2 Baso ABS# 0.0 K/ul 09/22/2018 Lipid Ord30 CHOL 124 mg/dL 09/22/2018 Lipid Ord30 HDL 32.0 mg/dl 09/22/2018 Lipid Ord30 TRIG 147 mg/dL 09/22/2018 Lipid Ord30 LDL 63 mg/dL 09/22/2018 Lipid Ord30 C/HDL 3.9 Ratio 09/22/2018 Free T4 Xns011 FREE T4 0.87 ng/dL 12/04/2017 Tsh Ord6 TSH (3rd IS) 3.04 uIU/mL 12/04/2017 Lipid Ord30 CHOL 164 mg/dL 03/17/2017 Lipid Ord30 HDL 43.0 mg/dl 03/17/2017 Lipid Ord30 TRIG 144 mg/dL 03/17/2017 Lipid Ord30 LDL 92 mg/dL 03/17/2017 Lipid Ord30 C/HDL 3.8 Ratio 03/17/2017 Hepatic Zcb525 ALBUMIN 4.4 g/dL 03/17/2017 Hepatic Yqv028 TPRO 7.3 g/dL 03/17/2017 Hepatic Fml006 GLOB 2.9 g/dL 03/17/2017 Hepatic Wtu933 A/G Ratio 1.5 Ratio 03/17/2017 Hepatic Vyr682 ALK PHOS 125 U/L 03/17/2017 Hepatic Rvb271 ALT(SGPT) 15 U/L 03/17/2017 Hepatic Jhy030 AST(SGOT) 22 U/L 03/17/2017 Hepatic Luz141 BILI T 0.7 mg/dL 03/17/2017 Hepatic Cvg955 BILI D 0.1 mg/dL 03/17/2017 Hepatic Wmk930 BILI I 0.6 mg/dL 03/17/2017 Tsh Ord6 hTSH II 2.89 uIU/mL 01/13/2017 Comp Metabolic Bpu216 NA 139 mEq/L 01/13/2017 Comp Metabolic Qpi408 K 4.4 mEq/L 01/13/2017 Comp Metabolic Qgk539 CL 105 mEq/L 01/13/2017 Comp Metabolic Ido025 CO2 29.0 mEq/L 01/13/2017 Comp Metabolic Knk776 AN ION GAP 9 01/13/2017 Comp Metabolic Dyg989 GL UCOSE 105 mg/dL 01/13/2017 Comp Metabolic Zti670 Cr eat 1.1 mg/dL 01/13/2017 Comp Metabolic Obm975 eG FR 68 ml/min/1.73m2 01/13 Comp Metabolic Ipf296 BUN 12 mg/dL 01/13/2017 Comp Metabolic Shd682 B/ C Ratio 10.7 Ratio 01/13/2017 Comp Metabolic Ilw614 CA LCIUM 9.2 mg/dL 01/13/2017 Comp Metabolic Cwy617 AL K PHOS 90 U/L 01/13/2017 Comp Metabolic Aui791 T(SGOT) 18 U/L 01/13/2017 Comp Metabolic Qqv982 AL T(SGPT) 12 U/L 01/13/2017 Comp Metabolic Czc167 BI LI T 0.5 mg/dL 01/13/2017 Comp Metabolic Iea643 AL BUMIN 4.1 g/dL 01/13/2017 Comp Metabolic Dki532 TP RO 6.4 g/dL 01/13/2017 Comp Metabolic Ckk996 GL OB 2.3 g/dL 01/13/2017 Comp Metabolic Twk073 A/ G Ratio 1.8 Ratio 01/13/2017 Comp Metabolic Peu945 Os mo 278 mOsmo 01/13/2017 Lipid Ord30 [...] 35.6 pg 01/13/2017 Cbc With Differential Ord2 Hendry% 10.5 % 01/13/2017 Cbc With Differential Ord2 [...] 1.30 K/ul 01/13/2017 Cbc With Differential Ord2 [place] ABS# 0.7 K/ul 01/13/2017 Cbc With Differential Ord2 Eos ABS# 0.2 K/ul 01/13/2017 Cbc With Differential Ord2 Baso ABS# 0.0 K/ul 01/13/2017 Total Psa Ord10 PSA 0.02 ng/mL 01/13/2017 Vitamin D 25 Oh [id number] VITAMIN D, 25 HYDROXY 65.24 ng/mL 10/21/2014 Tsh Ord6 hTSH II 1.32 uIU/mL 10/20/2014 Comp Metabolic Qbd892 NA 138 mEq/L 10/20/2014 Comp Metabolic Vzz439 K 4.4 mEq/L 10/20/2014 Comp Metabolic Ozc448 CL 106 mEq/L 10/20/2014 Comp Metabolic Gnl727 CO2 28.0 mEq/L 10/20/2014 Comp Metabolic Xjf512 AN ION GAP 8 10/20/2014 Comp Metabolic Czz324 GL UCOSE 98 mg/dL 10/20/2014 Comp Metabolic Ynw927 Cr eat 1.0 mg/dL 10/20/2014 Comp Metabolic Fkh942 eG FR 74 ml/min/1.73m2 10/20 Comp Metabolic Kdm354 BUN 14 mg/dL 10/20/2014 Comp Metabolic Yje913 B/ C Ratio 13.5 Ratio 10/20/2014 Comp Metabolic Ejp858 CA LCIUM 9.4 mg/dL 10/20/2014 Comp Metabolic Emn993 AL K PHOS 125 U/L 10/20/2014 Comp Metabolic Git601 T(SGOT) 22 U/L 10/20/2014 Comp Metabolic Qoe215 AL T(SGPT) 20 U/L 10/20/2014 Comp Metabolic Rsd310 BI LI T 0.5 mg/dL 10/20/2014 Comp Metabolic Zqx822 AL BUMIN 4.4 g/dL 10/20/2014 Comp Metabolic Lga429 TP RO 6.7 g/dL 10/20/2014 Comp Metabolic Jpo134 GL OB 2.3 g/dL 10/20/2014 Comp Metabolic Wbb365 A/ G Ratio 1.9 Ratio 10/20/2014 Comp Metabolic Rnu620 Os mo 276 mOsmo 10/20/2014 Cbc With [...] lips 10/18/2016 None Full Exam - General 1995 Ears/Nose/Throat oral cavity/pharynx/larynx Overall: oral mucosa clear [...] INFLUENZA VIRU S VAC CPT-4: G0008 02/12/2018 FLU VACC PRSV FREE I NC ANTIG CPT-4: 89406 02/12/2018 PPPS, SUBSEQ VISIT CPT- 4: G0439 10/24/2017 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 3-[address]: 697502470 CPT-4: G0436 02/04/2017 ADMIN INFLUENZA VIRU S VAC CPT-4: G0008 02/04/2017 FLU VAC NO PRSV 4 VA L 3 YRS+ CPT-4: 68560 02/04/2017 PPPS, SUBSEQ VISIT CPT- 4: G0439 10/18/2016 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 3-[address]: 922599197 CPT-4: G0436 10/03/2016 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 3-[address]: 260216175 CPT-4: G0436 07/02/2016 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 3-[address]: 727784443 CPT-4: G0436 04/04/2016 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 3-[address]: 529849433 CPT-4: G0436 01/04/2016 ADMIN INFLUENZA VIRU S VAC CPT-4: G0008 01/04/2016 ADMIN PNEUMOCOCCAL V ACCINE SNOMED CT: 31686719 CPT-4: G0009 01/04/2016 PNEUMOCOCCAL VACC [address]: 11902518 CPT-4: 39782 01/04/2016 FLU VACC 4 ROSETTE 3 YRS PLUS IM SNOMED CT: 42499187 CPT-4: 73824 01/04/2016 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 3-[address]: 911903649 CPT-4: G0436 10/04/2015 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 3-[address]: 217590559 CPT-4: G0436 08/30/2015 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 3-[address]: 638410672 CPT-4: G0436 08/02/2015 ADMIN INFLUENZA VIRU S VAC CPT-4: G0008 01/05/2015 FLU VACC 4 ROSETTE 3 YRS PLUS IM Formatting Model/CDA Sections, Assigned to SNOMED CT: 71649970 CPT-4: 29986Aulmubp 01/05/2015 Vital Signs Date Vital 10/27/2018 Blood Pressure 1: 104/58 Code: 8480-6 BMI: 29.8 Code: 22897-6 Heart Rate 1: 98 bpm Height: 6' SpO2: 98% Weight: 220 lbs 06/08/2018 Blood Pressure 1: 98/60 Code: 8480-6 BMI: 29.7 Code: 36881-4 Heart Rate 1: 85 bpm Height: 6' SpO2: 97% Weight: 219 lbs 04/03/2018 Blood Pressure 1: 106/66 Code: 8480-6 BMI: 29.7 Code: 23963-0 Heart Rate 1: 71 bpm Height: 6' SpO2: 96% Weight: 219 lbs 03/20/2018 Blood Pressure 1: 122/64 Code: 8480-6 BMI: 29.7 Code: 72380-3 Heart Rate 1: 73 bpm Height: 6' SpO2: 96% Weight: 219 lbs 02/24/2018 Blood Pressure 1: 108/62 Code: 8480-6 BMI: 29.0 Code: 63767-5 Heart Rate 1: 67 bpm Height: 6' SpO2: 98% Weight: 214 lbs 12/04/2017 Blood Pressure 1: 142/70 Code: 8480-6 BMI: 28.2 Code: 59225-6 Heart Rate 1: 103 bpm Height: 6' SpO2: 94% Weight: 208 lbs 10/24/2017 Heigh t: Weight: 08/28/2017 Blood Pressure 1: 130/72 Code: 8480-6 BMI: 28.3 Code: 31430-5 Heart Rate 1: 60 bpm Height: 6' SpO2: 96% Weight: 209 lbs 07/31/2017 Blood Pressure 1: 126/64 Code: 8480-6 BMI: 29.7 Code: 64973-2 Heart Rate 1: 59 bpm Height: 6' SpO2: 95% Weight: 219 lbs 06/04/2017 Blood Pressure 1: 134/86 Code: 8480-6 BMI: 28.6 Code: 49691-9 Heart Rate 1: 91 bpm Height: 6' SpO2: 97% Weight: 211 lbs 02/04/2017 Blood Pressure 1: 128/74 Code: 8480-6 BMI: 28.3 Code: 78377-4 Heart Rate 1: 63 bpm Height: 6' SpO2: 96% Weight: 209 lbs 10/18/2016 BMI: 27.7 Code: 11731-4 Height: 6' Weight: 204 lbs 10/03/2016 Blood Pressure 1: 118/70 Code: 8480-6 BMI: 27.7 Code: 60113-7 Heart Rate 1: 58 bpm Height: 6' SpO2: 95% Weight: 204 lbs 07/02/2016 Blood Pressure 1: 104/64 Code: 8480-6 BMI: 28.5 Code: 41985-7 Heart Rate 1: 63 bpm Height: 6' SpO2: 98% Weight: 210 lbs 04/04/2016 Blood Pressure 1: 116/62 Code: 8480-6 BMI: 29.9 Code: 82888-6 Heart Rate 1: 59 bpm Height: 6' SpO2: 98% Weight: 220 lbs 8 oz 01/04/2016 Blood Pressure 1: 136/78 Code: 8480-6 BMI: 29.6 Code: 55254-1 Heart Rate 1: 55 bpm Height: 6' SpO2: 97% Weight: 218 lbs 10/04/2015 Blood Pressure 1: 130/80 Code: 8480-6 BMI: 29.3 Code: 05166-5 Heart Rate 1: 69 bpm Height: 6' SpO2: 97% Weight: 216 lbs 08/30/2015 Blood Pressure 1: 112/64 Code: 8480-6 BMI: 30.4 Code: 60937-5 Heart Rate 1: 68 bpm Height: 6' SpO2: 95% Weight: 224 lbs 8 oz 08/02/2015 Blood Pressure 1: 120/70 Code: 8480-6 BMI: 30.1 Code: 50226-5 Heart Rate 1: 55 bpm Height: 6' SpO2: 97% Weight: 222 lbs 04/21/2015 Blood Pressure 1: 160/86 Code: 8480-6 Blood Pressure 1: 138/82 Code: 8480-6 BMI: 30.9 Code: 60350-5 Heart Rate 1: 96 bpm Height: 6' SpO2: 96% Weight: 228 lbs 03/21/2015 Blood Pressure 1: 124/82 Code: 8480-6 BMI: 30.0 Code: 60146-4 Heart Rate 1: 78 bpm Height: 6' SpO2: 98% Weight: 221 lbs 01/05/2015 Blood Pressure 1: 138/78 Code: 8480-6 BMI: 29.3 Code: 31037-2 Heart Rate 1: 61 bpm Height: 6' SpO2: 98% Weight: 216 lbs 10/06/2014 Blood Pressure 1: 130/78 Code: 8480-6 BMI: 29.3 Code: 61410-5 Heart Rate 1: 71 bpm Height: 6' [...] dyspnea 03/20/2018 None Hospital Follow Up _ Ot er: atrial flutter 02/24/2018 None Hospital Follow [...] oral intake 12/04/2017 None back pain Location diffu sely 12/04/2017 low back pain, takes hydr [...] cholesterol 10/24/2017 None Annual Medicare Wellness Exam Handli ng Stress usually manny effectively 10/24/2017 None Annual [...] unchanged 06/04/2017 None back pain Location diffu phaniy 02/04/2017 low back pain, takes hydr ocodone [...] pain, takes hydr ocodone prescribed by the [facility] back pain Location lumba r spine 08/30/2015 [...] pain, takes hydr ocodone prescribed by the [facility] back pain Location lumba r spine 08/02/2015 None back pain Onset [...] takes hydr ocodone initially prescribed by the [facility] back pain Location lumba r spine 04/21/2015 None back pain Onset [...] Encounters Encounter Performer Loca tion Codes Date ([id number]) [id number] EST. P ATIENT, LEVEL IV Diagnosis: Essential (primary) hypertension[ICD10: I10] Diagnosis: Atrophy of thyroid (acquired)[ICD10: E03.4] Diagnosis: Obstructive sleep apnea (adult) (pediatric)[ICD10: G47.33] Pepper Baeza MD, [facility] CPT-4: 90127 10/27/2018 ([id number]) [id number] EST. P ATIENT, LEVEL IV Diagnosis: Essential (primary) hypertension[ICD10: I10] Diagnosis: Chronic pain syndrome[ICD10: G89.4] Diagnosis: Atrophy of thyroid (acquired)[ICD10: E03.4] Pepper Baeza MD, [facility] CPT-4: 52249 06/08/2018 ([id number]) 14633 EST. P ATIENT, LEVEL III Diagnosis: Essential (primary) hypertension[ICD10: I10] Diagnosis: Chronic obstructive pulmonary disease, unspecified[ICD10: J44.9] Diagnosis: Chronic pain syndrome[ICD10: G89.4] Elaine Baeza MD, [facility] CPT-4: 55570 04/03/2018 ([id number]) 94192 EST. P ATIENT, LEVEL IV Diagnosis: Paroxysmal atrial fibrillation[ICD10: I48.0] Diagnosis: Cough[ICD10: R05] Diagnosis: Chronic obstructive pulmonary disease, unspecified[ICD10: J44.9] Elaine Baeza MD, [facility] CPT-4: 29150 03/20/2018 ([id number]) [id number] EST. P ATIENT, LEVEL IV Diagnosis: Paroxysmal atrial fibrillation[ICD10: I48.0] Diagnosis: Essential (primary) hypertension[ICD10: I10] Diagnosis: Cough[ICD10: R05] Elaine Baeza MD, [facility] CPT-4: 42549 02/24/2018 ([id number]) 60127 EST. P ATIENT, LEVEL IV Diagnosis: Essential (primary) hypertension[ICD10: I10] Diagnosis: Atrophy of thyroid (acquired)[ICD10: E03.4] Diagnosis: Pain in left knee[ICD10: M25.562] Diagnosis: Pain in right knee[ICD10: M25.561] Diagnosis: Mixed hyperlipidemia[ICD10: E78.2] Pepper Baeza MD, [facility] CPT- 4: 59053 12/04/2017 ([id number]) 87131 EST. P ATIENT, LEVEL IV Diagnosis: Essential (primary) hypertension[ICD10: I10] Diagnosis: Pain in left knee[ICD10: M25.562] Diagnosis: Pain in right knee[ICD10: M25.561] Diagnosis: Pain in right hip[ICD10: M25.551] Pepper Baeza MD, [facility] CPT-4: 60050 08/28/2017 ([id number]) 49944 EST. P ATIENT, LEVEL IV Diagnosis: Chronic pain syndrome[ICD10: G89.4] Diagnosis: Tobacco use[ICD10: Z72.0] Diagnosis: Localized enlarged lymph nodes[ICD10: R59.0] Pepper Baeza MD, [facility] CPT-4: 72958 07/31/2017 ([id number]) 98558 EST. P ATIENT, LEVEL IV Diagnosis: Essential (primary) hypertension[ICD10: I10] Diagnosis: Chronic pain syndrome[ICD10: G89.4] Diagnosis: Atrophy of thyroid (acquired)[ICD10: E03.4] Diagnosis: Tobacco use[ICD10: Z72.0] Pepper Baeza MD, [facility] CPT-4: 88382 06/04/2017 ([id number]) 07578 EST. P ATIENT, LEVEL IV Diagnosis: Essential (primary) hypertension[ICD10: I10] Diagnosis: Low back pain[ICD10: M54.5] Diagnosis: Iliotibial band syndrome, right leg[ICD10: M76.31] Diagnosis: Chronic pain syndrome[ICD10: G89.4] Diagnosis: Encounter for immunization[ICD10: Z23] Pepper Baeza MD, [facility] CPT-4: 55269 02/04/2017 ([id number]) 53467 EST. P ATIENT, LEVEL IV Diagnosis: Essential (primary) hypertension[ICD10: I10] Diagnosis: Chronic pain syndrome[ICD10: G89.4] Diagnosis: Low back pain[ICD10: M54.5] Diagnosis: Pain in right knee[ICD10: M25.561] Diagnosis: Pain in left knee[ICD10: M25.562] Pepper Baeza MD, [facility] CPT-4: 09874 10/03/2016 ([id number]) 35761 EST. P ATIENT, LEVEL IV Diagnosis: Essential (primary) hypertension[ICD10: I10] Diagnosis: Mixed hyperlipidemia[ICD10: E78.2] Diagnosis: Chronic pain syndrome[ICD10: G89.4] Diagnosis: Atrophy of thyroid (acquired)[ICD10: E03.4] Pepper Baeza MD, [facility] CPT-4: 41686 07/02/2016 ([id number]) 14579 EST. P ATIENT, LEVEL IV Diagnosis: Essential (primary) hypertension[ICD10: I10] Diagnosis: Tobacco use[ICD10: Z72.0] Diagnosis: Chronic pain syndrome[ICD10: G89.4] Pepper Baeza MD, [facility] CPT- 4: 63159 04/04/2016 ([id number]) 62267 EST. P ATIENT, LEVEL IV Diagnosis: Encounter for immunization[ICD10: Z23] Diagnosis: Essential (primary) hypertension[ICD10: I10] Diagnosis: Chronic pain syndrome[ICD10: G89.4] Diagnosis: Tobacco use[ICD10: Z72.0] Diagnosis: Mixed hyperlipidemia[ICD10: E78.2] Diagnosis: Gastro-esophageal reflux disease without esophagitis[ICD10: K21.9] Pepper Baeza MD, [facility] CPT-4: 42067 01/04/2016 ([id number]) 22921 EST. P ATIENT, LEVEL IV Diagnosis: Essential (primary) hypertension[ICD10: I10] Diagnosis: Chronic pain syndrome[ICD10: G89.4] Diagnosis: Tobacco use[ICD10: Z72.0] Pepper Baeza MD, [facility] CPT-4: 58177 10/04/2015 ([id number]) 08729 EST. P ATIENT, LEVEL III Diagnosis: Chronic pain syndrome[ICD10: G89.4] Diagnosis: Low back pain[ICD10: M54.5] Diagnosis: Tobacco use[ICD10: Z72.0] Diagnosis: Mixed hyperlipidemia[ICD10: E78.2] Pepper Baeza MD, [facility] CPT- 4: 14347 08/30/2015 ([id number]) 91698 EST. P ATIENT, LEVEL IV Diagnosis: Essential (primary) hypertension[ICD10: I10] Diagnosis: Low back pain[ICD10: M54.5] Diagnosis: Chronic pain syndrome[ICD10: G89.4] Pepper Baeza MD, [facility] CPT- 4: 03322 08/02/2015 ([id number]) 93678 EST. P ATIENT, LEVEL III Diagnosis: Essential (primary) hypertension[ICD10: I10] Diagnosis: Low back pain[ICD10: M54.5] Elaine Baeza MD, [facility] CPT- 4: 97684 04/21/2015 ([id number]) 23303 EST. P ATIENT, LEVEL IV Diagnosis: Epigastric pain[ICD10: R10.13] Diagnosis: Essential (primary) hypertension[ICD10: I10] Diagnosis: Gastro-esophageal reflux disease without esophagitis[ICD10: K21.9] Pepper Baeza MD, [facility] CPT-4: 97875 03/21/2015 ([id number]) 38564 EST. P ATIENT, LEVEL III Diagnosis: ESSENTIAL HYPERTENSION[ICD9: 401.9] Diagnosis: SCIATICA[ICD9: 724.3] Pepper Baeza MD, [facility] CPT-4: 09906 01/05/2015 ([id number]) OFFICE [facility] - LEVEL 4 Diagnosis: ESSENTIAL HYPERTENSION[ICD9: 401.9] Diagnosis: HYPOTHYROIDISM[ICD9: 244.9] Diagnosis: ESOPHAGEAL REFLUX[ICD9: 530.81] Pepper Baeza MD, [facility] CPT-4: 19635 10/06/2014 Plan of Care Planned Activity Notes [...] a note to Dr. Benito and [email or web address] about decreasing the pressure due to pt discomfort and lack of sleep. 10/27/2018 Appointment: Pepper Baeza WPtel: [address] [place], [place] [phone] (15 min) Moderate 10/27/2018 Patient Education: Patient Medication Summary Completed 10/27/2018 Appointment: Pepper Baeza WPtel: [phone] [facility] (15 min) Moderate 10/01/2018 Visit Plan: Hypertension [...] of over-medication. 06/08/2018 Appointment: Pepper Baeza WPtel: [phone] [facility] (15 min) Moderate 06/08/2018 Patient Education: Patient Medication Summary Completed 06/08/2018 Appointment: Pepper Baeza WPtel: [phone] [facility] (15 min) Moderate 04/08/2018 Visit Plan: Hypertension [...] Dr Benito 04/03/2018 Appointment: Elaine Whitehead WPtel: [phone] [place] (30 min) Complex 04/03/2018 Patient Education: Patient Medication Summary Completed 04/03/2018 Visit Plan: Afib-ablation last week -doing okay- chest pain has resolved COPD -cough- will give rx for nebulizer machine to use as needed to help with wheezing/shortness of breath -advised smoking cessation -patient verbalized understanding of plan. 03/20/2018 Appointment: Elaine Whitehead WPtel: [phone] [phone] (30 min) Complex 03/20/2018 Patient Education: Patient Medication Summary Completed 03/20/2018 Visit Plan: Afib-hospital follow up cardioversion in the hospital -patient is doing well -sees Dr Subramanian this afternoon -will schedule sleep study HTN-slightly low today-no changes-monitor blood pressure at home Cou gh-monitor symptoms and let us know if cough does not resolve, or if any worse 02/24/2018 [facility]ment: [phone] (15 min) Moderate 02/24/2018 Patient Education: Patient [...] 12/04/2017 Visit Plan: Hypertension - well con trolled [...] over-medication. 12/04/2017 [facility]ment[phone] ([facility] min) Moderate 12/04/2017 Patient Education: [...] care surrogate. 10/24/2017 Appointment: Parul Collier WPtel: [phone] [facility] [facility] - Annual Wellness Visit 10/24/2017 Patient Education: Patient Medication Summary Completed 10/24/2017 Appointment: Pepper Baeza WPtel: [facility] (15 min) Moderate 09/09/2017 Visit Plan: Hypertension [...] 08/28/2017 Appointment: Pepper Baeza WPtel: [facility] (15 min) Moderate 08/28/2017 Patient Education: Patient Medication Summary Completed 08/28/2017 Care Plan: X-RAY EXAM OF HIP LOINC : 30506-6 Pending 08/28/2017 Visit Plan: Hypertension - well [...] 07/31/2017 Appointment: Pepper Baeza WPtel: [facility] (15 min) Moderate 07/31/2017 Patient Education: Patient Medication Summary Completed 07/31/2017 Care Plan: CT THORAX W/O DYE [facility] : 14703-1 Pending 07/31/2017 Visit Plan: Hypertension - well [...] Sagast[place] tomorrow. 06/04/2017 Appointment: Pepper Baeza WPtel: [address] [place], [place] [phone] (30 min) [facility] 06/04/2017 Patient Education: Patient Medication Summary Completed [...] today 02/04/2017 Appointment: [facility]ae[phone] [phone] (30 min) Complex 02/04/2017 Patient Education: [...] surrogate. 10/18/2016 Appointment: [phone] [facility] - Annual Wellness Visit 10/18/2016 Patient Education: Patient Medication Summary Completed 10/18/2016 Patient Education: Smoking and Tobacco Addiction Completed 10/18/2016 Visit Plan: Low back pain - and kne e pain - [facility], knee pain, back [...] need stenting. 10/03/2016 Appointment: Pepper Baeza WPtel: [phone] [facility] (30 min) Complex 10/03/2016 Patient Education: Patient [...] this time. 07/02/2016 Appointment: [phone] (30 min) Complex 07/02/2016 Patient Education: Patient [...] smoking. 04/04/2016 Appointment: [phone] [phone] (30 min) Complex 04/04/2016 Patient Education: [...] improving. 01/04/2016 Appointment: [phone] [phone] (15 min) Moderate 01/04/2016 Patient Education: [...] of over-medication. 10/04/2015 Appointment: [facility]ae[facility]el[phone] [phone] (15 min) Moderate 10/04/2015 Patient Education: [...] stopping smoking. 08/02/2015 Appointment: Pepper Baeza WPtel: [facility] (15 min) Moderate 08/02/2015 Patient Education: [...] to patient. 10/06/2014 Appointment: Pepper Baeza WPtel: [address] [place], [place] [id number] [place] ([place] New Patient 10/06/2014 Patient Education: Patient Medication Summary Completed 10/06/2014 Patient Education: Hypertension Completed 10/06/2014 Instructions Comment get labs one week be fore your next appt . Low back pain - and knee pain - recomm [facility], knee pain, [...] are not improving. . Medicare Exam - to day we [...] the consequences of over-medication. COPD-seeing Dr Benito SLEEP STUDY . Afib-hospital follow up cardioversion in the hospital -patient is doing well - sees Dr Subramanian this afternoon -will schedule sleep study HTN-slightly low today-no changes-monitor blood pressure at home Cough-monitor symptoms and let us know if cough does not resolve, or if any worse act, therabreath- lo zenges for dry mouth [...] a note to Dr. Benito and [email or web address] about decreasing the pressure due to pt discomfort and lack of sleep. . Hypertension - wel l controlled - [...] - recommended stopping smoking. . Hypertension - wel l controlled - [...] is not currently interested in stopping smoking. . Hypertension - wel l controlled - [...] consequences of over-medication. . Medicare Exam - to day we [...] [employer] paperwork for health care surrogate. . Afib-ablation last week -doing okay- chest pain has resolved COPD -cough- will give rx for nebulizer machine to use as needed to help with wheezing/shortness of breath -advised smoking cessation -patient verbalized understanding of plan. . Hypertension - wel l controlled - [...] medication at this time. . Hypertension - wel l controlled - [...] given in clinic today . Chronic Pain Syndr ome - pt [...]
--- OUTSIDE RECORDS SUMMARY | 2019-10-22 10:48 | XMS REPORT | Continuity of Care Document ---
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 04/17/2016 LIANA ARIAS Ot I25.10 ATHSCL HEART DISEASE OF [place] CORONARY 04/17/2016 LIANA ARIAS Ot 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 04/17/2016 LIANA ARIAS Ot E78.0 PURE HYPERCHOLESTEROLEMIA 04/17/2016 LIANA ARIAS Ot I10 ESSENTIAL (PRIMARY) HYPERTENSION 04/17/2016 LIANA ARIAS Ot I25.10 ATHSCL HEART DISEASE OF [place] CORONARY 04/17/2016 LIANA ARIAS Ot 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 04/17/2016 LINDSAY SIMMS Ot F17.200 NICOTINE DEPENDENCE, UNSPECIFIED, UNCOMP 04/17/2016 LINDSAY SIMMS Ot Z08 ENCNTR FOR FOLLOW-UP EXAM AFTER TRTMT FO 04/17/2016 LINDSAY SIMMS Ot Z79.899 OTHER [facility] (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 THERAPY 04/17/2016 LINDSAY SIMMS Ot 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 04/17/2016 LINDSAY SIMMS Ot F17.210 NICOTINE DEPENDENCE, CIGARETTES, UNCOMPL 04/17/2016 LINDSAY SIMMS Ot Z08 ENCNTR FOR FOLLOW-UP EXAM AFTER TRTMT FO 04/17/2016 LINDSAY SIMMS Ot 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 1 PRESENCE OF AORTOCORONARY BYPASS GRAFT 05/16/2016 KAYLEY LAMBERT MD Ot E78. 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 08/22/2016 DEAN SIH APRN Ot R06.00 DYSPNEA, UNSPECIFIED 08/22/2016 DEAN SHI RAISE DRILLER Ot R91.1 SOLITARY PULMONARY NODULE 08/22/2016 DEAN SHI RAISE DRILLER Ot Z72.0 TOBACCO USE 08/22/2016 DEAN SHI RAISE DRILLER Ot R06.00 DYSPNEA, UNSPECIFIED 08/22/2016 DEAN SHI RAISE DRILLER Ot R91.1 SOLITARY PULMONARY NODULE 08/22/2016 DEAN SHI APRN Ot Z72.0 TOBACCO USE 08/26/2016 JANN YADAV MD, Ot F17.210 NICOTINE DEPENDENCE, CIGARETTES, UNCOMPL 08/26/2016 JANN YADAV MD Ot M54.6 PAIN IN THORACIC SPINE 08/26/2016 JANN YADAV MD Ot R07.89 OTHER CHEST PAIN 08/26/2016 JANN YADAV MD Ot R07.9 CHEST PAIN, UNSPECIFIED 08/26/2016 JANN YADAV MD Ot R91.1 SOLITARY PULMONARY NODULE 08/26/2016 JANN YADAV MD Ot Z79.02 [facility] (CURRENT) USE OF ANTITHROMBOTI 08/26/2016 JANN YADAV MD Ot 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 9 TYPE 2 DIABETES MELLITUS WITHOUT COMPLIC 09/04/2016 KAYLEY LAMBERT MD Ot E78. 2 MIXED HYPERLIPIDEMIA 09/04/2016 KAYLEY LAMBERT MD Ot I10 ESSENTIAL (PRIMARY) HYPERTENSION 09/04/2016 KAYLEY LAMBERT MD Ot I25. 10 ATHSCL HEART DISEASE OF [place] CORONARY 09/04/2016 KAYLEY LAMBERT MD Ot R06. 00 DYSPNEA, UNSPECIFIED 09/11/2016 KAYLEY LAMBERT MD Ot E11. 9 TYPE 2 DIABETES MELLITUS WITHOUT COMPLIC 09/11/2016 KAYLEY LAMBERT MD Ot E78. 2 MIXED HYPERLIPIDEMIA 09/11/2016 KAYLEY LAMBERT MD Ot I10 ESSENTIAL (PRIMARY) HYPERTENSION 09/11/2016 KAYLEY LAMBERT MD Ot I25. 10 ATHSCL HEART DISEASE OF [place] CORONARY 09/11/2016 KAYLEY LAMBERT MD Ot R06. 00 DYSPNEA, UNSPECIFIED 09/18/2016 KAYLEY LAMBERT MD Ot E78. 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 12/18/2016 DEMI JAROCHOVANDANA Fausto Ot 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 12/25/2016 DEMI LINDSAY Lambert Ot F17.210 NICOTINE DEPENDENCE, CIGARETTES, UNCOMPL 12/25/2016 DEMI LINDSAY Lambert Ot R91.1 SOLITARY PULMONARY NODULE 12/25/2016 DEMI JAROCHOVANDANA Fausto Ot Z08 ENCNTR FOR FOLLOW-UP EXAM AFTER TRTMT FO 12/25/2016 LINDSAY SIMMS Fausto Ot Z79.899 OTHER [facility] (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 THERAPY 12/25/2016 DEMI LINDSAY Lambert Ot 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 12/27/2016 LIANA ARIAS Ot E78.2 MIXED HYPERLIPIDEMIA 12/27/2016 LIANA ARIAS Ot I10 ESSENTIAL (PRIMARY) HYPERTENSION 12/27/2016 LIANA ARIAS Ot I25.10 ATHSCL HEART DISEASE OF [place] CORONARY 12/27/2016 LIANA ARIAS Ot 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 01/01/2017 LIANA ARIAS Ot E78.2 MIXED HYPERLIPIDEMIA 01/01/2017 LIANA ARIAS Ot I10 ESSENTIAL (PRIMARY) HYPERTENSION 01/01/2017 LIANA ARIAS Ot I25.10 ATHSCL HEART DISEASE OF [place] CORONARY 01/01/2017 LIANA ARIAS Ot 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 01/06/2017 DEAN SHI APRN Ot R91.1 SOLITARY PULMONARY NODULE 01/24/2017 DEAN SHI APRN Ot R91.1 SOLITARY PULMONARY NODULE 01/29/2017 DEAN SHI APRN Ot R91.1 SOLITARY PULMONARY NODULE 03/04/2017 Ot 784.51 DYS ARTHRIA 03/04/2017 Ot V10.46 HX- PROSTATIC MALIGNANCY 03/04/2017 Ot 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 03/04/2017 Ot 702.0 ACTI ADORE KERATOSIS 03/04/2017 Ot V10.46 HX- PROSTATIC MALIGNANCY 03/04/2017 Ot V10.82 HX- MALIG SKIN MELANOMA 03/04/2017 Ot V58.65 ISABEL G- TERM(CURRENT)USE OF STEROIDS 03/04/2017 Ot V58.66 ISABEL G-TERM (CURRENT) USE OF ASPIRIN 03/04/2017 Ot V58.69 OT MED,LT,CURRENT USE 03/04/2017 Ot V67.09 ALICIA GARCIA FOLLOW- UP, OTHER SURGERY 03/04/2017 Ot 735.4 OTHE R HAMMER TOE 03/04/2017 Ot V72.63 PRE -PROCEDURAL LABORATORY EXAMINATION 03/04/2017 Ot V74.8 SCRE EN-BACTERIAL DIS NEC 03/04/2017 Ot 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 03/04/2017 Ot 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 LI 03/04/2017 Ot 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 03/04/2017 Ot 216.5 SON GN JENNIFER SKIN TRUNK 03/04/2017 Ot 702.0 ACTI ADORE KERATOSIS 03/04/2017 Ot 702.19 OTH ER SEBORRHEIC KERATOSIS 03/04/2017 Ot 735.4 OTHE R HAMMER TOE 03/04/2017 Ot 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 03/04/2017 Ot 702.0 ACTI ADORE KERATOSIS 03/04/2017 Ot V10.46 HX- PROSTATIC MALIGNANCY 03/04/2017 Ot V10.82 HX- MALIG SKIN MELANOMA 03/04/2017 Ot V58.65 ISABEL G- TERM(CURRENT)USE OF STEROIDS 03/04/2017 Ot V58.66 ISABEL G-TERM (CURRENT) USE OF ASPIRIN 03/04/2017 Ot V58.69 OTH MED,LT,CURRENT USE 03/04/2017 Ot V67.09 ALICIA GARCIA FOLLOW- UP, OTHER SURGERY 03/04/2017 MATTHEW DPM, ELO Patiño Ot 735.4 OTHER HAMMER TOE 03/04/2017 MATTHEW DPUlices, ELO Patiño Ot V72.83 EXAM PRE-OPERATIVE NEC 03/04/2017 ELO CASTRO DPM Ot V74.8 SCREEN-BACTERIAL DIS NEC 03/04/2017 LINDSAY SIMMS Ot 305.1 TOBACCO USE DISORDER 03/04/2017 LINDSAY SIMMS Ot V10.46 HX- PROSTATIC MALIGNANCY 03/04/2017 LINDSAY SIMMS Ot V10.82 HX- MALIG SKIN MELANOMA 03/04/2017 LINDSAY SIMMS Ot V58.65 LONG-TERM(CURRENT)USE OF STEROIDS 03/04/2017 LINDSAY SIMMS Ot V58.66 LONG-TERM (CURRENT) USE OF ASPIRIN 03/04/2017 LINDSAY SIMMS Ot V58.69 OTH MED,LT,CURRENT USE 03/04/2017 LINDSAY [...] TOBACCO USE 03/04/2017 KAYLEY LAMBERT MD Ot 244. 9 HYPOTHYROIDISM NOS 03/04/2017 KAYLEY LAMBERT MD Ot 272. 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 0 TRICUSPID VALVE DISEASE 03/04/2017 KAYLEY LAMBERT MD Ot 401. 9 HYPERTENSION NOS 03/04/2017 KAYLEY LAMBERT MD Ot 414. 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 4 DIZZINESS AND GIDDINESS 03/04/2017 KAYLEY LAMBERT MD Ot V15. 82 HISTORY OF TOBACCO USE 03/04/2017 KAYLEY LAMBERT MD Ot 272. 0 PURE HYPERCHOLESTEROLEM 03/04/2017 KAYLEY LAMBERT MD Ot 305. 1 TOBACCO USE DISORDER 03/04/2017 KAYLEY LAMBERT MD Ot 401. 9 HYPERTENSION NOS 03/04/2017 KAYLEY LAMBERT MD Ot 414. 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 NOS TYPE VESSEL, NATIV 03/04/2017 KAYLEY LAMBERT MD Ot 440. 0 AORTIC ATHEROSCLEROSIS 03/04/2017 ANTHONY CASTRO SCHOOL COMMISSIONER Ot 305.1 TOBACCO USE DISORDER 03/04/2017 ANTHONY CASTRO SCHOOL COMMISSIONER Ot 709.9 SKIN DISORDER NOS 03/04/2017 ANTHONY CASTRO SCHOOL COMMISSIONER Ot 787.99 OTHER GI SYSTEM SYMPTOMS 03/04/2017 ANTHONY CASTRO SCHOOL COMMISSIONER Ot V10.82 HX-MALIG SKIN MELANOMA 03/04/2017 KAYLEY LAMBERT MD Ot 272. 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 0 TRICUSPID VALVE DISEASE 03/04/2017 KAYLEY LAMBERT MD Ot 401. 9 HYPERTENSION NOS 03/04/2017 KAYLEY LAMBERT MD Ot 414. 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 0 PURE HYPERCHOLESTEROLEM 03/04/2017 KAYLEY LAMBERT MD Ot 401. 9 HYPERTENSION NOS 03/04/2017 KAYLEY LAMBERT MD Ot 414. 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 NOS TYPE VESSEL, NATIV 03/04/2017 KAYLEY LAMBERT MD J Ot 427. 69 PREMATURE BEATS NEC 03/04/2017 FE GÉNESIS HAMMOND Ot 305. 1 TOBACCO USE DISORDER 03/04/2017 FE GÉNESIS HAMMOND Ot 780. 54 HYPERSOMNIA, UNSPECIFIED 03/04/2017 FEGÉNESIS TRISTAN DO Ot 786. 09 RESPIRATORY ABNORM NEC 03/04/2017 Ot 486 PNEUMO PETER, ORGANISM NOS 03/04/2017 Ot 780.60 FEV ER, UNSPECIFIED 03/04/2017 Ot 786.2 COUGH 03/04/2017 LINDSAY SIMMS Ot F17.200 NICOTINE DEPENDENCE, UNSPECIFIED, UNCOMP 03/04/2017 LINDSAY SIMMS Ot Z08 ENCNTR FOR FOLLOW-UP EXAM AFTER TRTMT FO 03/04/2017 LINDSAY SIMMS Ot Z79.899 OTHER [facility] (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 THERAPY 03/04/2017 LINDSAY SIMMS Ot 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 03/04/2017 LIANA ARIAS Ot E78.0 PURE HYPERCHOLESTEROLEMIA 03/04/2017 LIANA ARIAS Ot I10 ESSENTIAL (PRIMARY) HYPERTENSION 03/04/2017 LIANA ARIAS Ot I25.10 ATHSCL HEART DISEASE OF [place] CORONARY 03/04/2017 LIANA ARIAS Ot 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 03/04/2017 LIANA ARIAS Ot E78.0 PURE HYPERCHOLESTEROLEMIA 03/04/2017 LIANA ARIAS Ot I10 ESSENTIAL (PRIMARY) HYPERTENSION 03/04/2017 LIANA ARIAS Ot I25.10 ATHSCL HEART DISEASE OF [place] CORONARY 03/04/2017 LIANA ARIAS Ot 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 03/04/2017 LINDSAY SIMMS Ot F17.200 NICOTINE DEPENDENCE, UNSPECIFIED, UNCOMP 03/04/2017 LINDSAY SIMMS Ot Z08 ENCNTR FOR FOLLOW-UP EXAM AFTER TRTMT FO 03/04/2017 LINDSAY SIMMS Ot 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 03/04/2017 LINDSAY SIMMS Ot 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 03/04/2017 DEMI JAROCHOVANDANA Fausto Ot F17.210 NICOTINE DEPENDENCE, CIGARETTES, UNCOMPL 03/04/2017 LINDSAY SIMMS Fausto Ot Z08 ENCNTR FOR FOLLOW-UP EXAM AFTER TRTMT FO 03/04/2017 LINDSAY SIMMS Fausto Ot 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 03/04/2017 LINDSAY SIMMS Fausto Ot 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 03/04/2017 JANN YADAV MD, Ot F17.210 NICOTINE DEPENDENCE, CIGARETTES, UNCOMPL 03/04/2017 JANN YADAV MD, Ot M54.6 PAIN IN THORACIC SPINE 03/04/2017 JANN YADAV MD, Ot R07.89 OTHER CHEST PAIN 03/04/2017 JANN YADAV MD, Ot R07.9 CHEST PAIN, UNSPECIFIED 03/04/2017 JANN YADAV MD, Ot R91.1 SOLITARY PULMONARY NODULE 03/04/2017 JANN YADAV MD, Ot 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 9 TYPE 2 DIABETES MELLITUS WITHOUT COMPLIC 03/04/2017 KAYLEY LAMBERT MD Ot E78. 2 MIXED HYPERLIPIDEMIA 03/04/2017 KAYLEY LAMBERT MD Ot I10 ESSENTIAL (PRIMARY) HYPERTENSION 03/04/2017 KAYLEY LAMBERT MD Ot I25. 10 ATHSCL HEART DISEASE OF [place] CORONARY 03/04/2017 KAYLEY LAMBERT MD Ot R06. 00 DYSPNEA, UNSPECIFIED 03/04/2017 DEAN SHI APRN Ot R06.00 DYSPNEA, UNSPECIFIED 03/04/2017 DEAN SHI APRN Ot R91.1 SOLITARY PULMONARY NODULE 03/04/2017 DEAN SHI APRN Ot Z72.0 TOBACCO USE 03/04/2017 DEAN SHI APRN Ot R91.1 SOLITARY PULMONARY NODULE 03/04/2017 LINDSAY SIMMS Ot F17.210 NICOTINE DEPENDENCE, CIGARETTES, UNCOMPL 03/04/2017 LINDSAY SIMMS Ot R91.1 SOLITARY PULMONARY NODULE 03/04/2017 LINDSAY SIMMS Ot Z08 ENCNTR FOR FOLLOW-UP EXAM AFTER TRTMT FO 03/04/2017 LINDSAY SIMMS Ot Z79.899 OTHER [facility] (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 THERAPY 03/04/2017 LINDSAY SIMMS Ot 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 03/04/2017 LIANA ARIAS Ot E78.2 MIXED HYPERLIPIDEMIA 03/04/2017 LIANA ARIAS Ot I10 ESSENTIAL (PRIMARY) HYPERTENSION 03/04/2017 LIANA ARIAS Ot I25.10 ATHSCL HEART DISEASE OF [place] CORONARY 03/04/2017 LIANA ARIAS Ot 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 05/31/2017 Ot 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 05/31/2017 Ot 702.0 ACTI ADORE KERATOSIS 05/31/2017 Ot V10.46 HX- PROSTATIC MALIGNANCY 05/31/2017 Ot V10.82 HX- MALIG SKIN MELANOMA 05/31/2017 Ot V58.65 ISABEL G- TERM(CURRENT)USE OF STEROIDS 05/31/2017 Ot V58.66 ISABEL G-TERM (CURRENT) USE OF ASPIRIN 05/31/2017 Ot V58.69 OTH MED,LT,CURRENT USE 05/31/2017 Ot V67.09 ALICIA GARCIA FOLLOW- UP, OTHER SURGERY 05/31/2017 Ot 735.4 OTHE R HAMMER TOE 05/31/2017 Ot V72.63 PRE -PROCEDURAL LABORATORY EXAMINATION 05/31/2017 Ot V74.8 SCRE EN-BACTERIAL DIS NEC 05/31/2017 Ot 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 05/31/2017 Ot 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 LI 05/31/2017 Ot 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 05/31/2017 Ot 216.5 SON GN JENNIFER SKIN TRUNK 05/31/2017 Ot 702.0 ACTI ADORE KERATOSIS 05/31/2017 Ot 702.19 OTH ER SEBORRHEIC KERATOSIS 05/31/2017 Ot 735.4 OTHE R HAMMER TOE 05/31/2017 Ot 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 05/31/2017 Ot 702.0 ACTI ADORE KERATOSIS 05/31/2017 Ot V10.46 HX- PROSTATIC MALIGNANCY 05/31/2017 Ot V10.82 HX- MALIG SKIN MELANOMA 05/31/2017 Ot V58.65 ISABEL G- TERM(CURRENT)USE OF STEROIDS 05/31/2017 Ot V58.66 ISABEL G-TERM (CURRENT) USE OF ASPIRIN 05/31/2017 Ot V58.69 OTH MED,LT,CURRENT USE 05/31/2017 Ot V67.09 ALICIA GARCIA FOLLOW- UP, OTHER SURGERY 05/31/2017 CASTRO DPM, ELO Patiño Ot 735.4 OTHER HAMMER TOE 05/31/2017 CASTRO DPM, ELO Patiño Ot V72.83 EXAM PRE-OPERATIVE NEC 05/31/2017 MATTHEW DPM, ELO Patiño Ot V74.8 SCREEN-BACTERIAL DIS NEC 05/31/2017 LINDSAY SIMMS Ot 305.1 TOBACCO USE DISORDER 05/31/2017 LINDSAY SIMMS Ot V10.46 HX- PROSTATIC MALIGNANCY 05/31/2017 LINDSAY SIMMS Ot V10.82 HX- MALIG SKIN MELANOMA 05/31/2017 LINDSAY SIMMS Ot V58.65 [...] TOBACCO USE 05/31/2017 KAYLEY LAMBERT MD Ot 244. 9 HYPOTHYROIDISM NOS 05/31/2017 KAYLEY LAMBERT MD Ot 272. 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 0 TRICUSPID VALVE DISEASE 05/31/2017 KAYLEY LAMBERT MD Ot 401. 9 HYPERTENSION NOS 05/31/2017 KAYLEY LAMBERT MD Ot 414. 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 4 DIZZINESS AND GIDDINESS 05/31/2017 KAYLEY LAMBERT MD Ot V15. 82 HISTORY OF TOBACCO USE 05/31/2017 KAYLEY LAMBERT MD Ot 272. 0 PURE HYPERCHOLESTEROLEM 05/31/2017 KAYLEY LAMBERT MD Ot 305. 1 TOBACCO USE DISORDER 05/31/2017 KAYLEY LAMBERT MD Ot 401. 9 HYPERTENSION NOS 05/31/2017 KAYLEY LAMBERT MD Ot 414. 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 NOS TYPE VESSEL, NATIV 05/31/2017 KAYLEY LAMBERT MD Ot 440. 0 AORTIC ATHEROSCLEROSIS 05/31/2017 [employer] Ot 305.1 TOBACCO USE DISORDER 05/31/2017 [employer] Ot 709.9 SKIN DISORDER NOS 05/31/2017 [employer] Ot 787.99 OTHER GI SYSTEM SYMPTOMS 05/31/2017 [employer] COMMISS[employer]ER Ot V10.82 HX-MALIG SKIN MELANOMA 05/31/2017 KAYLEY LAMBERT MD Ot 272. 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 0 TRICUSPID VALVE DISEASE 05/31/2017 KAYLEY LAMBERT MD Ot 401. 9 HYPERTENSION NOS 05/31/2017 KAYLEY LAMBERT MD Ot 414. 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 NOS TYPE VESSEL, NATIV 05/31/2017 PETRA CASTANEDA, KAYLEY Rivera Ot 429. 3 CARDIOMEGALY 05/31/2017 KAYLEY LAMBERT MD Ot 272. 0 PURE HYPERCHOLESTEROLEM 05/31/2017 PETRA CASTANEDA, KAYLEY Rivera Ot 401. 9 HYPERTENSION NOS 05/31/2017 KAYLEY LAMBERT MD Ot 414. 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 NOS TYPE VESSEL, NATIV 05/31/2017 PETRA ACSTANEDA, KAYLEY Rivera Ot 427. 69 PREMATURE BEATS NEC 05/31/2017 GÉNESIS MIRAMONTES DO Ot 305. 1 TOBACCO USE DISORDER 05/31/2017 GÉNESIS MIRAMONTES DO Ot 780. 54 HYPERSOMNIA, UNSPECIFIED 05/31/2017 GÉNESIS MIRAMONTES DO Ot 786. 09 RESPIRATORY ABNORM NEC 05/31/2017 Ot 486 PNEUMO PETER, ORGANISM NOS 05/31/2017 Ot 780.60 FEV ER, UNSPECIFIED 05/31/2017 Ot 786.2 COUGH 05/31/2017 LINDSAY SIMMS Ot F17.200 NICOTINE DEPENDENCE, UNSPECIFIED, UNCOMP 05/31/2017 LINDSAY SIMMS Ot Z08 ENCNTR FOR FOLLOW-UP EXAM AFTER TRTMT FO 05/31/2017 LINDSAY SIMMS Ot 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 05/31/2017 LINDSAY SIMMS Ot 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 05/31/2017 LIANA ARIAS Ot E78.0 PURE HYPERCHOLESTEROLEMIA 05/31/2017 LIANA ARIAS Ot I10 ESSENTIAL (PRIMARY) HYPERTENSION 05/31/2017 LIANA ARIAS Ot I25.10 ATHSCL HEART DISEASE OF [place] CORONARY 05/31/2017 LIANA ARIAS Ot 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 05/31/2017 LIANA ARIAS Ot E78.0 PURE HYPERCHOLESTEROLEMIA 05/31/2017 LIANA ARIAS Ot I10 ESSENTIAL (PRIMARY) HYPERTENSION 05/31/2017 LIANA ARIAS Ot I25.10 ATHSCL HEART DISEASE OF [place] CORONARY 05/31/2017 LIANA ARIAS Ot 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 05/31/2017 LINDSAY SIMMS Ot F17.200 NICOTINE DEPENDENCE, UNSPECIFIED, UNCOMP 05/31/2017 LINDSAY SIMMS Fausto Ot Z08 ENCNTR FOR FOLLOW-UP EXAM AFTER TRTMT FO 05/31/2017 LINDSAY SIMMS Fausto Ot 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 05/31/2017 LINDSAY SIMMS Fausto Ot 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 05/31/2017 DEMI JAROCHOVANDANA Fausto Ot F17.210 NICOTINE DEPENDENCE, CIGARETTES, UNCOMPL 05/31/2017 LINDSAY SIMMS Fausto Ot Z08 ENCNTR FOR FOLLOW-UP EXAM AFTER TRTMT FO 05/31/2017 LINDSAY SIMMS Fausto Ot 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 05/31/2017 LINDSAY SIMMS Fausto Ot 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 05/31/2017 JANN YADAV MD, Ot F17.210 NICOTINE DEPENDENCE, CIGARETTES, UNCOMPL 05/31/2017 JANN YADAV MD Ot M54.6 PAIN IN THORACIC SPINE 05/31/2017 JANN YADAV MD Ot R07.89 OTHER CHEST PAIN 05/31/2017 JANN YADAV MD Ot R07.9 CHEST PAIN, UNSPECIFIED 05/31/2017 JANN YADAV MD Ot R91.1 SOLITARY PULMONARY NODULE 05/31/2017 JANN YADAV MD Ot Z79.02 [facility] (CURRENT) USE OF ANTITHROMBOTI 05/31/2017 JANN YADAV MD Ot Z79.899 OTHER [facility] (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 THERAPY 05/31/2017 JANN YADAV MD Ot Z95.1 PRESENCE OF AORTOCORONARY BYPASS GRAFT 05/31/2017 KAYLEY LAMBERT MD Ot E11. 9 TYPE 2 DIABETES MELLITUS WITHOUT COMPLIC 05/31/2017 KAYLEY LAMBERT MD Ot E78. 2 MIXED HYPERLIPIDEMIA 05/31/2017 KAYLEY LAMBERT MD Ot I10 ESSENTIAL (PRIMARY) HYPERTENSION 05/31/2017 KAYLEY LAMBERT MD Ot I25. 10 ATHSCL HEART DISEASE OF [place] CORONARY 05/31/2017 KAYLEY LAMBERT MD Ot R06. 00 DYSPNEA, UNSPECIFIED 05/31/2017 DEAN SHI APRN Ot R06.00 DYSPNEA, UNSPECIFIED 05/31/2017 DEAN SHI APRN Ot R91.1 SOLITARY PULMONARY NODULE 05/31/2017 DEAN SHI APRN Ot Z72.0 TOBACCO USE 05/31/2017 DEAN SHI APRN Ot R91.1 SOLITARY PULMONARY NODULE 05/31/2017 DEMI LINDSAY Lambert Ot F17.210 NICOTINE DEPENDENCE, CIGARETTES, UNCOMPL 05/31/2017 DEMI LINDSAY Lambert Ot R91.1 SOLITARY PULMONARY NODULE 05/31/2017 DEMI JAROCHOVANDANA Fausto Ot Z08 ENCNTR FOR FOLLOW-UP EXAM AFTER TRTMT FO 05/31/2017 DEMI LINDSAY Lambert Ot 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 05/31/2017 DEMILINDSAY Ot 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 05/31/2017 LIANA ARIAS Ot E78.2 MIXED HYPERLIPIDEMIA 05/31/2017 LIANA ARIAS Ot I10 ESSENTIAL (PRIMARY) HYPERTENSION 05/31/2017 LIANA ARIAS Ot I25.10 ATHSCL HEART DISEASE OF [place] CORONARY 05/31/2017 LIANA ARIAS Ot 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 08/07/2017 Ot 735.4 OTHE R HAMMER TOE 08/07/2017 Ot V72.63 PRE -PROCEDURAL LABORATORY EXAMINATION 08/07/2017 Ot V74.8 SCRE EN-BACTERIAL DIS NEC 08/07/2017 Ot 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 08/07/2017 Ot 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 LI 08/07/2017 Ot 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 08/07/2017 Ot 216.5 SON GN JENNIFER SKIN TRUNK 08/07/2017 Ot 702.0 ACTI ADORE KERATOSIS 08/07/2017 Ot 702.19 OTH ER SEBORRHEIC KERATOSIS 08/07/2017 Ot 735.4 OTHE R HAMMER TOE 08/07/2017 Ot 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 08/07/2017 Ot 702.0 ACTI ADORE KERATOSIS 08/07/2017 Ot V10.46 HX- PROSTATIC MALIGNANCY 08/07/2017 Ot V10.82 HX- MALIG SKIN MELANOMA 08/07/2017 Ot V58.65 ISABEL G- TERM(CURRENT)USE OF STEROIDS 08/07/2017 Ot V58.66 ISABEL G-TERM (CURRENT) USE OF ASPIRIN 08/07/2017 Ot V58.69 OTH MED,LT,CURRENT USE 08/07/2017 Ot V67.09 ALICIA GARCIA FOLLOW- UP, OTHER SURGERY 08/07/2017 CASTRO DPM, ELO Patiño Ot 735.4 OTHER HAMMER TOE 08/07/2017 CASTRO DPM, ELO Patiño Ot V72.83 EXAM PRE-OPERATIVE NEC 08/07/2017 MATTHEW DPM, ELO Patiño Ot V74.8 SCREEN-BACTERIAL DIS NEC 08/07/2017 LINDSAY SIMMS Ot 305.1 TOBACCO USE DISORDER 08/07/2017 LINDSAY SIMMS Ot V10.46 HX- PROSTATIC MALIGNANCY 08/07/2017 LINDSAY SIMMS Ot V10.82 HX- MALIG SKIN MELANOMA 08/07/2017 LINDSAY SIMMS Ot V58.65 LONG-TERM(CURRENT)USE OF STEROIDS 08/07/2017 LINDSAY SIMMS Ot V58.66 LONG-TERM (CURRENT) USE OF ASPIRIN 08/07/2017 LINDSAY SIMMS Ot V58.69 OTH MED,LT,CURRENT USE 08/07/2017 LINDSAY SIMMS Ot V67.09 SURGERY FOLLOW-UP, OTHER SURGERY 08/07/2017 [...] TOBACCO USE 08/07/2017 KAYLEY LAMBERT MD Ot 244. 9 HYPOTHYROIDISM NOS 08/07/2017 KAYLEY LAMBERT MD Ot 272. 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 0 TRICUSPID VALVE DISEASE 08/07/2017 KAYLEY LAMBERT MD Ot 401. 9 HYPERTENSION NOS 08/07/2017 KAYLEY LAMBERT MD Ot 414. 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 4 DIZZINESS AND GIDDINESS 08/07/2017 KAYLEY LAMBERT MD Ot V15. 82 HISTORY OF TOBACCO USE 08/07/2017 KAYLEY LAMBERT MD Ot 272. 0 PURE HYPERCHOLESTEROLEM 08/07/2017 KAYLEY LAMBERT MD Ot 305. 1 TOBACCO USE DISORDER 08/07/2017 KAYLEY LAMBERT MD Ot 401. 9 HYPERTENSION NOS 08/07/2017 KAYLEY LAMBERT MD Ot 414. 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 NOS TYPE VESSEL, NATIV 08/07/2017 KAYLEY LAMBERT MD Ot 440. 0 AORTIC ATHEROSCLEROSIS 08/07/2017 ANTHONY CASTRO SCHOOL COMMISSIONER Ot 305.1 TOBACCO USE DISORDER 08/07/2017 ANTHONY CASTRO SCHOOL COMMISSIONER Ot 709.9 SKIN DISORDER NOS 08/07/2017 ANTHONY CASTRO SCHOOL COMMISSIONER Ot 787.99 OTHER GI SYSTEM SYMPTOMS 08/07/2017 ANTHONY CASTRO SCHOOL COMMISSIONER Ot V10.82 HX-MALIG SKIN MELANOMA 08/07/2017 KAYLEY LAMBERT MD Ot 272. 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 0 TRICUSPID VALVE DISEASE 08/07/2017 KAYLEY LAMBERT MD Ot 401. 9 HYPERTENSION NOS 08/07/2017 KAYLEY LAMBERT MD Ot 414. 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 NOS TYPE VESSEL, NATIV 08/07/2017 KAYLEY LAMBERT MD Ot 429. 3 CARDIOMEGALY 08/07/2017 KAYLEY LAMBERT MD Ot 272. 0 PURE HYPERCHOLESTEROLEM 08/07/2017 PETRA CASTANEDA, KAYLEY Rivera Ot 401. 9 HYPERTENSION NOS 08/07/2017 PETRA CASTANEDA, KAYLEY Rivera Ot 414. 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 NOS TYPE VESSEL, NATIV 08/07/2017 PETRA CASTANEDA, KAYLEY Rivera Ot 427. 69 PREMATURE BEATS NEC 08/07/2017 FE HAMMOND GÉNESIS M Ot 305. 1 TOBACCO USE DISORDER 08/07/2017 GÉNESIS MIRAMONTES DO Ot 780. 54 HYPERSOMNIA, UNSPECIFIED 08/07/2017 GÉNESIS MIRAMONTES DO Ot 786. 09 RESPIRATORY ABNORM NEC 08/07/2017 Ot 486 PNEUMO PETER, ORGANISM NOS 08/07/2017 Ot 780.60 FEV ER, UNSPECIFIED 08/07/2017 Ot 786.2 COUGH 08/07/2017 LINDSAY SIMMS Ot F17.200 NICOTINE DEPENDENCE, UNSPECIFIED, UNCOMP 08/07/2017 LINDSAY SIMMS Ot Z08 ENCNTR FOR FOLLOW-UP EXAM AFTER TRTMT FO 08/07/2017 LINDSAY SIMMS Ot Z79.899 OTHER [facility] (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 THERAPY 08/07/2017 LINDSAY SIMMS Ot 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 08/07/2017 LIANA ARIAS Ot E78.0 PURE HYPERCHOLESTEROLEMIA 08/07/2017 LIANA ARIAS Ot I10 ESSENTIAL (PRIMARY) HYPERTENSION 08/07/2017 LIANA ARIAS Ot I25.10 ATHSCL HEART DISEASE OF [place] CORONARY 08/07/2017 LIANA ARIAS Ot 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 08/07/2017 LIANA ARIAS Ot E78.0 PURE HYPERCHOLESTEROLEMIA 08/07/2017 LIANA ARIAS Ot I10 ESSENTIAL (PRIMARY) HYPERTENSION 08/07/2017 LIANA ARIAS Ot I25.10 ATHSCL HEART DISEASE OF [place] CORONARY 08/07/2017 LIANA ARIAS Ot 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 08/07/2017 LINDSAY SIMMS Ot F17.200 NICOTINE DEPENDENCE, UNSPECIFIED, UNCOMP 08/07/2017 LINDSAY SIMMS Ot Z08 ENCNTR FOR FOLLOW-UP EXAM AFTER TRTMT FO 08/07/2017 LINDSAY SIMMS Ot Z79.899 OTHER [facility] (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 THERAPY 08/07/2017 LINDSAY SIMMS Fausto Ot 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 08/07/2017 LINDSAY SIMMS Ot F17.210 NICOTINE DEPENDENCE, CIGARETTES, UNCOMPL 08/07/2017 LINDSAY SIMMS Fausto Ot Z08 ENCNTR FOR FOLLOW-UP EXAM AFTER TRTMT FO 08/07/2017 LINDSAY SIMMS N Ot 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 08/07/2017 LINDSAY SIMMS Ot 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 08/07/2017 JANN YADAV MD, Ot F17.210 NICOTINE DEPENDENCE, CIGARETTES, UNCOMPL 08/07/2017 JANN YADAV MD, Ot M54.6 PAIN IN THORACIC SPINE 08/07/2017 JANN YADAV MD Ot R07.89 OTHER CHEST PAIN 08/07/2017 JANN YADAV MD Ot R07.9 CHEST PAIN, UNSPECIFIED 08/07/2017 JANN YADAV MD Ot R91.1 SOLITARY PULMONARY NODULE 08/07/2017 JANN YADAV MD, Ot Z79.02 ENTRY LEVEL SALES ASSOCIATE (CURRENT) USE OF ANTITHROMBOTI 08/07/2017 JANN YADAV MD, Ot Z79.899 OTHER [facility] (CURRENT) DRUG THERAPY 08/07/2017 JANN YADAV MD Ot Z95.1 PRESENCE OF AORTOCORONARY BYPASS GRAFT 08/07/2017 KAYLEY LAMBERT MD Ot E11. 9 TYPE 2 DIABETES MELLITUS WITHOUT COMPLIC 08/07/2017 KAYLEY LAMBERT MD Ot E78. 2 MIXED HYPERLIPIDEMIA 08/07/2017 KAYLEY LAMBERT MD Ot I10 ESSENTIAL (PRIMARY) HYPERTENSION 08/07/2017 KAYLEY LAMBERT MD Ot I25. 10 ATHSCL HEART DISEASE OF [place] CORONARY 08/07/2017 KAYLEY LAMBERT MD Ot R06. 00 DYSPNEA, UNSPECIFIED 08/07/2017 DEAN SHI APRN Ot R06.00 DYSPNEA, UNSPECIFIED 08/07/2017 DEAN SHI APRN Ot R91.1 SOLITARY PULMONARY NODULE 08/07/2017 DEAN SHI APRN Ot Z72.0 TOBACCO USE 08/07/2017 DEAN SHI APRN Ot R91.1 SOLITARY PULMONARY NODULE 08/07/2017 LINDSAY SIMMS Ot F17.210 NICOTINE DEPENDENCE, CIGARETTES, UNCOMPL 08/07/2017 LINDSAY SIMMS Ot R91.1 SOLITARY PULMONARY NODULE 08/07/2017 LINDSAY SIMMS Ot Z08 ENCNTR FOR FOLLOW-UP EXAM AFTER TRTMT FO 08/07/2017 LINDSAY SIMMS Ot Z79.899 OTHER [facility] (CURRENT) DRUG THERAPY 08/07/2017 LINDSAY SIMMS Ot 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 08/07/2017 LIANA ARIAS Ot E78.2 MIXED HYPERLIPIDEMIA 08/07/2017 LIANA ARIAS Ot I10 ESSENTIAL (PRIMARY) HYPERTENSION 08/07/2017 LIANA ARIAS Ot I25.10 ATHSCL HEART DISEASE OF [place] CORONARY 08/07/2017 LIANA ARIAS Ot 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 08/09/2017 Ot 735.4 OTHE R HAMMER TOE 08/09/2017 Ot V72.63 PRE -PROCEDURAL LABORATORY EXAMINATION 08/09/2017 Ot V74.8 SCRE EN-BACTERIAL DIS NEC 08/09/2017 Ot 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 08/09/2017 Ot 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 LI 08/09/2017 Ot 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 08/09/2017 Ot 216.5 SON GN JENNIFER SKIN TRUNK 08/09/2017 Ot 702.0 ACTI ADORE KERATOSIS 08/09/2017 Ot 702.19 OTH ER SEBORRHEIC KERATOSIS 08/09/2017 Ot 735.4 OTHE R HAMMER TOE 08/09/2017 Ot 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 08/09/2017 Ot 702.0 ACTI ADORE KERATOSIS 08/09/2017 Ot V10.46 HX- PROSTATIC MALIGNANCY 08/09/2017 Ot V10.82 HX- MALIG SKIN MELANOMA 08/09/2017 Ot V58.65 ISABEL G- TERM(CURRENT)USE OF STEROIDS 08/09/2017 Ot V58.66 ISABEL G-TERM (CURRENT) USE OF ASPIRIN 08/09/2017 Ot V58.69 OTH MED,LT,CURRENT USE 08/09/2017 Ot V67.09 ALICIA GARCIA FOLLOW- UP, OTHER SURGERY 08/09/2017 MATTHEW DPM, ELO Patiño Ot 735.4 OTHER HAMMER TOE 08/09/2017 MATTHEW DPUlices, ELO Patiño Ot V72.83 EXAM PRE-OPERATIVE NEC 08/09/2017 ELO CASTRO DPM Ot V74.8 SCREEN-BACTERIAL DIS NEC 08/09/2017 LINDSAY SIMMS Ot 305.1 TOBACCO USE DISORDER 08/09/2017 LINDSAY SIMMS Ot V10.46 HX- PROSTATIC MALIGNANCY 08/09/2017 LINDSAY SIMMS Ot V10.82 HX- MALIG SKIN MELANOMA 08/09/2017 LINDSAY SIMMS Ot V58.65 LONG-TERM(CURRENT)USE OF STEROIDS 08/09/2017 LINDSAY SIMMS Ot V58.66 LONG-TERM (CURRENT) USE OF ASPIRIN 08/09/2017 LINDSAY SIMMS Ot V58.69 OTH MED,LT,CURRENT USE 08/09/2017 LINDSAY SIMMS Ot V67.09 SURGERY FOLLOW-UP, OTHER SURGERY 08/09/2017 [...] TOBACCO USE 08/09/2017 KAYLEY LAMBERT MD Ot 244. 9 HYPOTHYROIDISM NOS 08/09/2017 KAYLEY LAMBERT MD Ot 272. 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 0 TRICUSPID VALVE DISEASE 08/09/2017 KAYLEY LAMBERT MD Ot 401. 9 HYPERTENSION NOS 08/09/2017 KAYLEY LAMBERT MD Ot 414. 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 4 DIZZINESS AND GIDDINESS 08/09/2017 KAYLEY LAMBERT MD Ot V15. 82 HISTORY OF TOBACCO USE 08/09/2017 KAYLEY LAMBERT MD Ot 272. 0 PURE HYPERCHOLESTEROLEM 08/09/2017 KAYLEY LAMBERT MD Ot 305. 1 TOBACCO USE DISORDER 08/09/2017 KAYLEY LAMBERT MD Ot 401. 9 HYPERTENSION NOS 08/09/2017 KAYLEY LAMBERT MD Ot 414. 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 NOS TYPE VESSEL, NATIV 08/09/2017 KAYLEY LAMBERT MD Ot 440. 0 AORTIC ATHEROSCLEROSIS 08/09/2017 ANTHONY CASTRO SCHOOL COMMISSIONER Ot 305.1 TOBACCO USE DISORDER 08/09/2017 ANTHONY CASTRO SCHOOL COMMISSIONER Ot 709.9 SKIN DISORDER NOS 08/09/2017 ANTHONY CASTRO SCHOOL COMMISSIONER Ot 787.99 OTHER GI SYSTEM SYMPTOMS 08/09/2017 ANTHONY CASTRO SCHOOL COMMISSIONER Ot V10.82 HX-MALIG SKIN MELANOMA 08/09/2017 KAYLEY LAMBERT MD Ot 272. 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 0 TRICUSPID VALVE DISEASE 08/09/2017 KAYLEY LAMBERT MD Ot 401. 9 HYPERTENSION NOS 08/09/2017 KAYLEY LAMBERT MD Ot 414. 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 NOS TYPE VESSEL, NATIV 08/09/2017 KAYLEY LAMBERT MD Ot 429. 3 CARDIOMEGALY 08/09/2017 KAYLEY LAMBERT MD Ot 272. 0 PURE HYPERCHOLESTEROLEM 08/09/2017 KAYLEY LAMBERT MD Ot 401. 9 HYPERTENSION NOS 08/09/2017 KAYLEY LAMBERT MD Ot 414. 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 NOS TYPE VESSEL, NATIV 08/09/2017 PETRA CASTANEDA, KAYLEY Rivera Ot 427. 69 PREMATURE BEATS NEC 08/09/2017 FE HAMMOND GÉNESIS M Ot 305. 1 TOBACCO USE DISORDER 08/09/2017 FE HAMMOND GÉNESIS M Ot 780. 54 HYPERSOMNIA, UNSPECIFIED 08/09/2017 FE HAMMOND GÉNESIS Elena Ot 786. 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 08/09/2017 LINDSAY SIMMS Ot 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 08/09/2017 LIANA ARIAS Ot E78.0 PURE HYPERCHOLESTEROLEMIA 08/09/2017 LIANA ARIAS Ot I10 ESSENTIAL (PRIMARY) HYPERTENSION 08/09/2017 LIANA ARIAS Ot I25.10 ATHSCL HEART DISEASE OF [place] CORONARY 08/09/2017 LIANA ARIAS Ot 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 08/09/2017 LIANA ARIAS Ot E78.0 PURE HYPERCHOLESTEROLEMIA 08/09/2017 LIANA ARIAS Ot I10 ESSENTIAL (PRIMARY) HYPERTENSION 08/09/2017 LIANA ARIAS Ot I25.10 ATHSCL HEART DISEASE OF [place] CORONARY 08/09/2017 LIANA ARIAS Ot 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 08/09/2017 LINDSAY SIMMS Ot F17.200 NICOTINE DEPENDENCE, UNSPECIFIED, UNCOMP 08/09/2017 LINDSAY SIMMS Ot Z08 ENCNTR FOR FOLLOW-UP EXAM AFTER TRTMT FO 08/09/2017 LINDSAY SIMMS Ot Z79.899 OTHER [facility] (CURRENT) DRUG THERAPY 08/09/2017 LINDSAY SIMMS Ot 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 08/09/2017 LINDSAY SIMMS Ot F17.210 NICOTINE DEPENDENCE, CIGARETTES, UNCOMPL 08/09/2017 LINDSAY SIMMS Ot Z08 ENCNTR FOR FOLLOW-UP EXAM AFTER TRTMT FO 08/09/2017 LINDSAY SIMMS Ot Z79.899 OTHER [facility] (CURRENT) DRUG THERAPY 08/09/2017 LINDSAY SIMMS Ot 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 08/09/2017 JANN YADAV MD, Ot F17.210 NICOTINE DEPENDENCE, CIGARETTES, UNCOMPL 08/09/2017 JANN YADAV MD, Ot M54.6 PAIN IN THORACIC SPINE 08/09/2017 JANN YADAV MD Ot R07.89 OTHER CHEST PAIN 08/09/2017 JANN YADAV MD, Ot R07.9 CHEST PAIN, UNSPECIFIED 08/09/2017 JANN YADAV MD Ot R91.1 SOLITARY PULMONARY NODULE 08/09/2017 JANN YADAV MD, Ot Z79.02 ENTRY LEVEL SALES ASSOCIATE (CURRENT) USE OF ANTITHROMBOTI 08/09/2017 JANN YADAV MD, Ot 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 08/09/2017 JANN YADAV MD Ot Z95.1 PRESENCE OF AORTOCORONARY BYPASS GRAFT 08/09/2017 KAYLEY LAMBERT MD Ot E11. 9 TYPE 2 DIABETES MELLITUS WITHOUT COMPLIC 08/09/2017 KAYLEY LAMBERT MD Ot E78. 2 MIXED HYPERLIPIDEMIA 08/09/2017 KAYLEY LAMBERT MD Ot I10 ESSENTIAL (PRIMARY) HYPERTENSION 08/09/2017 KAYLEY LAMBERT MD Ot I25. 10 ATHSCL HEART DISEASE OF [place] CORONARY 08/09/2017 KAYLEY LAMBERT MD Ot R06. 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 08/09/2017 LINDSAY SIMMS Ot 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 08/09/2017 LIANA ARIAS Ot E78.2 MIXED HYPERLIPIDEMIA 08/09/2017 LIANA ARIAS Ot I10 ESSENTIAL (PRIMARY) HYPERTENSION 08/09/2017 LIANA ARIAS Ot I25.10 ATHSCL HEART DISEASE OF [place] CORONARY 08/09/2017 LIANA ARIAS Ot 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 08/09/2017 JANN YADAV MD Ot E03.9 HYPOTHYROIDISM, UNSPECIFIED 08/09/2017 JANN YADAV MD Ot K21.9 GASTRO-ESOPHAGEAL REFLUX DISEASE WITHOUT 08/09/2017 JANN YADAV MD, Ot M10.9 GOUT, UNSPECIFIED 08/09/2017 JANN YADAV MD, Ot M25.511 PAIN IN RIGHT SHOULDER 08/09/2017 JANN YADAV MD Ot W18.09XA STRIKING AGAINST OTH OBJECT W SUBSEQUENT 08/09/2017 JANN YADAV MD Ot Z79.82 [facility] (CURRENT) USE OF ASPIRIN 08/09/2017 JANN YADAV [...] SUBSEQUENT 08/11/2017 JANN YADAV MD Ot Z79.82 [facility] (CURRENT) USE OF ASPIRIN 08/11/2017 JANN YADAV MD Ot Z85.46 PERSONAL HISTORY OF MALIGNANT NEOPLASM O 08/11/2017 JANN YADAV MD Ot Z95.5 PRESENCE OF CORONARY ANGIOPLASTY IMPLANT 08/11/2017 JANN YADAV MD Ot Z98.890 OTHER SPECIFIED POSTPROCEDURAL STATES 08/12/2017 FARRUKH SCOTT MD Ot C6 1 MALIGNANT NEOPLASM OF PROSTATE 08/12/2017 FARRUKH SCOTT MD Ot J44.9 CHRONIC OBSTRUCTIVE PULMONARY DISEASE, U 08/12/2017 FARRUKH SCOTT MD Ot R59.1 GENERALIZED ENLARGED LYMPH NODES 08/12/2017 FARRUKH SCOTT MD Ot R91.8 OTHER NONSPECIFIC ABNORMAL FINDING OF [place]ANT[place] 09/02/2017 FARRUKH SCOTT MD Ot C6 1 MALIGNANT NEOPLASM OF PROSTATE 09/02/2017 FARRUKH SCOTT MD Ot J44.9 CHRONIC OBSTRUCTIVE PULMONARY DISEASE, U 09/02/2017 FARRUKH SCOTT MD Ot R59.1 GENERALIZED ENLARGED LYMPH NODES 09/02/2017 FARRUKH SCOTT MD Ot R91.8 OTHER NONSPECIFIC ABNORMAL FINDING OF [place] 09/10/2017 FARRUKH SCOTT MD Ot C6 1 MALIGNANT NEOPLASM OF PROSTATE 09/10/2017 FARRUKH SCOTT MD, Ot J44.9 CHRONIC OBSTRUCTIVE PULMONARY DISEASE, U [...] OF HIP 10/07/2017 MARVIN GROVE MD Ot M19.0 11 PRIMARY OSTEOARTHRITIS, RIGHT SHOULDER 10/07/2017 MARVIN GROVE MD Ot W19.XXXA UNSPECIFIED FALL, INITIAL ENCOUNTER 10/08/2017 FELISHA CASTANEDA, FARRUKH Gaona Ot M16.0 BILATERAL PRIMARY OSTEOARTHRITIS OF HIP 10/16/2017 DEMILINDSAY HENRY Fausto Ot I10 ESSENTIAL (PRIMARY) HYPERTENSION 10/16/2017 DEMILINDSAY HENRY Fausto Ot Z85.46 PERSONAL HISTORY OF MALIGNANT NEOPLASM O 10/22/2017 LINDSAY SIMMS Fausto Ot I10 ESSENTIAL (PRIMARY) HYPERTENSION 10/22/2017 LINDSAY SIMMS Fausto Ot Z85.46 PERSONAL HISTORY OF MALIGNANT NEOPLASM O 10/28/2017 MARVIN GROVE MD Ot M19.0 11 PRIMARY OSTEOARTHRITIS, RIGHT SHOULDER 10/28/2017 MARVIN GROVE MD Ot W19.XXXA UNSPECIFIED FALL, INITIAL ENCOUNTER 11/05/2017 MARVIN GROVE MD Ot M19.0 11 PRIMARY OSTEOARTHRITIS, RIGHT SHOULDER 11/05/2017 MARVIN GROVE MD Ot W19.XXXA UNSPECIFIED FALL, INITIAL ENCOUNTER 11/26/2017 Ot E03.9 HYPO THYROIDISM, UNSPECIFIED 11/26/2017 Ot E11.9 TYPE 2 DIABETES MELLITUS WITHOUT COMPLIC 11/26/2017 Ot E78.2 MIXE D HYPERLIPIDEMIA 11/26/2017 Ot I10 ESSENT IAL (PRIMARY) HYPERTENSION 11/26/2017 Ot I25.10 ATH SCL HEART DISEASE OF [place] CORONARY 11/26/2017 Ot I65.29 OCC LUSION AND STENOSIS OF UNSPECIFIED CA 11/26/2017 Ot I73.9 NAIMA PHERAL VASCULAR DISEASE, UNSPECIFIED 11/26/2017 Ot 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 9 HYPOTHYROIDISM, UNSPECIFIED 02/17/2018 ELAINE FRANKLIN MD Ot E78. 5 HYPERLIPIDEMIA, UNSPECIFIED 02/17/2018 ELAINE FRANKLIN MD Ot F17.210 NICOTINE DEPENDENCE, CIGARETTES, UNCOMPL 02/17/2018 ELAINE FRANKLIN MD Ot I10 ESSENTIAL (PRIMARY) HYPERTENSION 02/17/2018 ELAINE FRANKLIN MD Ot I25.110 ATHSCL HEART DISEASE OF [place] COR ART W 02/17/2018 ELAINE FRANKLIN MD Ot I48. 92 UNSPECIFIED ATRIAL FLUTTER 02/17/2018 ELAINE FRANKLIN MD Ot I73. 9 PERIPHERAL VASCULAR DISEASE, UNSPECIFIED 02/17/2018 ELAINE FRANKLIN MD Ot I77. 1 STRICTURE OF ARTERY 02/17/2018 ELAINE FRANKLIN MD Ot I77.811 ABDOMINAL AORTIC ECTASIA 02/17/2018 ELAINE FRANKLIN MD Ot I95. 9 HYPOTENSION, UNSPECIFIED 02/17/2018 ELAINE FRANKLIN MD Ot K21. 9 GASTRO-ESOPHAGEAL REFLUX DISEASE WITHOUT 02/17/2018 ELAINE FRANKLIN MD Ot M10. 9 GOUT, UNSPECIFIED 02/17/2018 ELAINE FRANKLIN MD Ot M19. 91 PRIMARY OSTEOARTHRITIS, UNSPECIFIED SITE 02/17/2018 ELAINE FRANKLIN MD Ot M54. 9 DORSALGIA, UNSPECIFIED 02/17/2018 ELAINE FRANKLIN MD Ot R06. 81 APNEA, NOT ELSEWHERE CLASSIFIED 02/17/2018 ELAINE FRANKLIN MD Ot R79. 89 OTHER SPECIFIED ABNORMAL FINDINGS OF BLO 02/17/2018 ELAINE FRANKLIN MD Ot R91. 1 SOLITARY PULMONARY NODULE 02/17/2018 ELAINE FRANKLIN MD Ot 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 02/17/2018 ELAINE FRANKLIN MD Ot Z95. 1 PRESENCE OF AORTOCORONARY BYPASS GRAFT 02/17/2018 ELAINE FRANKLIN MD Ot Z95. 5 PRESENCE OF CORONARY ANGIOPLASTY IMPLANT 02/17/2018 ELAINE FRANKLIN MD Ot E03. 9 HYPOTHYROIDISM, UNSPECIFIED 02/17/2018 ELAINE FRANKLIN MD Ot E78. 5 HYPERLIPIDEMIA, UNSPECIFIED 02/17/2018 ELAINE FRANKLIN MD Ot F17.210 NICOTINE DEPENDENCE, CIGARETTES, UNCOMPL 02/17/2018 ELAINE FRANKLIN MD Ot I10 ESSENTIAL (PRIMARY) HYPERTENSION 02/17/2018 ELAINE FRANKLIN MD Ot I25.110 ATHSCL HEART DISEASE OF [place] ART W 02/17/2018 ELAINE FRANKLIN MD Ot I48. 92 UNSPECIFIED ATRIAL FLUTTER 02/17/2018 ELAINE FRANKLIN MD Ot I73. 9 PERIPHERAL VASCULAR DISEASE, UNSPECIFIED 02/17/2018 ELAINE FRANKLIN MD Ot I77. 1 STRICTURE OF ARTERY 02/17/2018 ELAINE FRANKLIN MD Ot I77.811 ABDOMINAL AORTIC ECTASIA 02/17/2018 ELAINE FRANKLIN MD Ot I95. 9 HYPOTENSION, UNSPECIFIED 02/17/2018 ELAINE FRANKLIN MD Ot K21. 9 GASTRO-ESOPHAGEAL REFLUX DISEASE WITHOUT 02/17/2018 ELAINE FRANKLIN MD Ot M10. 9 GOUT, UNSPECIFIED 02/17/2018 ELAINE FRANKLIN MD Ot M19. 91 PRIMARY OSTEOARTHRITIS, UNSPECIFIED SITE 02/17/2018 ELAINE FRANKLIN MD Ot M54. 9 DORSALGIA, UNSPECIFIED 02/17/2018 ELAINE FRANKLIN MD Ot R06. 81 APNEA, NOT ELSEWHERE CLASSIFIED 02/17/2018 ELAINE FRANKLIN MD Ot R79. 89 OTHER SPECIFIED ABNORMAL FINDINGS OF BLO 02/17/2018 ELAINE FRANKLIN MD Ot R91. 1 SOLITARY PULMONARY NODULE 02/17/2018 ELAINE FRANKLIN MD Ot 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 02/17/2018 NOEMI CASTANEDA, ELAINE Chaidez Ot Z95. 1 PRESENCE OF AORTOCORONARY BYPASS GRAFT 02/17/2018 ELAINE FRANKLIN MD Ot Z95. 5 PRESENCE OF CORONARY ANGIOPLASTY IMPLANT 02/17/2018 ELAINE FRANKLIN MD Ot E03. 9 HYPOTHYROIDISM, UNSPECIFIED 02/17/2018 ELAINE FRANKLIN MD Ot E78. 5 HYPERLIPIDEMIA, UNSPECIFIED 02/17/2018 ELAINE FRANKLIN MD Ot F17.210 NICOTINE DEPENDENCE, CIGARETTES, UNCOMPL 02/17/2018 ELAINE FRANKLIN MD Ot G47. 30 SLEEP APNEA, UNSPECIFIED 02/17/2018 ELAINE FRANKLIN MD Ot I10 ESSENTIAL (PRIMARY) HYPERTENSION 02/17/2018 ELAINE FRANKLIN MD Ot I25.110 ATHSCL HEART DISEASE OF [place] ART W 02/17/2018 ELAINE FRANKLIN MD Ot I34. 0 NONRHEUMATIC MITRAL (VALVE) INSUFFICIENC 02/17/2018 ELAINE FRANKLIN MD Ot I48. 92 UNSPECIFIED ATRIAL FLUTTER 02/17/2018 ELAINE FRANKLIN MD Ot I65. 23 OCCLUSION AND STENOSIS OF BILATERAL CHOI 02/17/2018 ELAINE FRANKLIN MD Ot I73. 9 PERIPHERAL VASCULAR DISEASE, UNSPECIFIED 02/17/2018 ELAINE FRANKLIN MD Ot I77. 1 STRICTURE OF ARTERY 02/17/2018 ELAINE FRANKLIN MD Ot I77.811 ABDOMINAL AORTIC ECTASIA 02/17/2018 ELAINE FRANKLIN MD Ot I95. 9 HYPOTENSION, UNSPECIFIED 02/17/2018 ELAINE FRANKLIN MD Ot K21. 9 GASTRO-ESOPHAGEAL REFLUX DISEASE WITHOUT 02/17/2018 ELAINE FRANKLIN MD Ot M10. 9 GOUT, UNSPECIFIED 02/17/2018 ELAINE FRANKLIN MD Ot M19. 91 PRIMARY OSTEOARTHRITIS, UNSPECIFIED SITE 02/17/2018 ELAINE FRANKLIN MD Ot M54. 9 DORSALGIA, UNSPECIFIED 02/17/2018 ELAINE FRANKLIN MD Ot R06. 81 APNEA, NOT ELSEWHERE CLASSIFIED 02/17/2018 ELAINE FRANKLIN MD Ot R09. 02 HYPOXEMIA 02/17/2018 ELAINE FRANKLIN MD Ot R79. 89 OTHER SPECIFIED ABNORMAL FINDINGS OF BLO 02/17/2018 ELAINE FRANKLIN MD Ot R91. 1 SOLITARY PULMONARY NODULE 02/17/2018 ELAINE FRANKLIN MD Ot Z85. 46 PERSONAL HISTORY OF MALIGNANT NEOPLASM O 02/17/2018 ELAINE FRANKLIN MD Ot 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 02/17/2018 ELAINE FRANKLIN MD Ot Z95. 1 PRESENCE OF AORTOCORONARY BYPASS GRAFT 02/17/2018 ELAINE FRANKLIN MD Ot Z95. 5 PRESENCE OF CORONARY ANGIOPLASTY IMPLANT 03/12/2018 Ulices LYONS MD Ot Z01.818 ENCOUNTER FOR OTHER PREPROCEDURAL EXAMIN 03/13/2018 Ulices LYONS MD Ot Z01.818 ENCOUNTER FOR OTHER PREPROCEDURAL EXAMIN 03/17/2018 Ulices LYONS MD Ot E78 .5 HYPERLIPIDEMIA, UNSPECIFIED 03/17/2018 Ulices LYONS MD Ot F17.210 NICOTINE DEPENDENCE, CIGARETTES, UNCOMPL 03/17/2018 Ulices LYONS MD, Ot I10 ESSENTIAL (PRIMARY) HYPERTENSION 03/17/2018 Ulices LYONS MD, Ot I25.10 ATHSCL HEART DISEASE OF [place] CORONARY 03/17/2018 Ulices LYONS MD, Ot I48 .0 PAROXYSMAL ATRIAL FIBRILLATION 03/17/2018 Ulices LYONS MD, Ot I48 .3 TYPICAL ATRIAL FLUTTER 03/17/2018 Ulices LYONS MD, Ot K21 .9 GASTRO-ESOPHAGEAL REFLUX DISEASE WITHOUT 03/17/2018 Ulices LYONS MD, Ot Z11 .2 ENCOUNTER FOR SCREENING FOR OTHER BACTER 03/17/2018 Ulices LYONS MD, Ot 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 03/17/2018 Ulices LYONS MD, Ot Z79.82 [employer] (CURRENT) USE OF ASPIRIN 03/17/2018 Ulices LYONS MD, Ot 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 03/17/2018 Ulices LYONS MD, Ot Z85.46 PERSONAL HISTORY OF MALIGNANT NEOPLASM O 03/17/2018 Ulices LYONS MD, Ot 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 03/17/2018 Ulices LYONS MD, Ot Z95 .1 PRESENCE OF AORTOCORONARY BYPASS GRAFT 03/17/2018 Ulices LYONS MD, Ot Z95 .5 PRESENCE OF CORONARY ANGIOPLASTY IMPLANT 03/18/2018 RADHA MACKEY MD Ot E03.9 HYPOTHYROIDISM, UNSPECIFIED 03/18/2018 RADHA MACKEY MD Ot F17.210 NICOTINE DEPENDENCE, CIGARETTES, UNCOMPL 03/18/2018 RADHA MACKEY MD Ot I10 ESSENTIAL (PRIMARY) HYPERTENSION 03/18/2018 RADHA MACKEY MD, Ot I25.10 ATHSCL HEART DISEASE OF [place] CORONARY 03/18/2018 RADHA MACKEY MD Ot I48.91 UNSPECIFIED ATRIAL FIBRILLATION 03/18/2018 RADHA MACKEY MD, Ot J44.1 CHRONIC OBSTRUCTIVE PULMONARY DISEASE W 03/18/2018 RADHA MACKEY MD, Ot K21.9 GASTRO-ESOPHAGEAL REFLUX DISEASE WITHOUT 03/18/2018 RADHA MACKEY MD, Ot M10.9 GOUT, UNSPECIFIED 03/18/2018 RADHA MACKEY MD Ot R07.81 PLEURODYNIA 03/18/2018 RADHA MACKEY MD Ot R07.89 OTHER CHEST PAIN 03/18/2018 RADHA MACKEY MD, Ot 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 03/18/2018 RADHA MACKEY MD, Ot 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 03/18/2018 RADHA MACKEY MD, Ot Z79.52 [facility] (CURRENT) USE OF SYSTEMIC STER 03/18/2018 RADHA MACKEY MD, Ot Z79.82 [facility] (CURRENT) USE OF ASPIRIN 03/18/2018 RADHA MACKEY MD, Ot Z82.49 FAMILY HX OF ISCHEM HEART DIS AND OTH DI 03/18/2018 RADHA MACKEY MD, Ot Z85.46 PERSONAL HISTORY OF MALIGNANT NEOPLASM O 03/18/2018 RADHA MACKEY MD, Ot Z95.1 PRESENCE OF AORTOCORONARY BYPASS GRAFT 03/18/2018 RADHA MACKEY MD Ot Z95.5 PRESENCE OF CORONARY ANGIOPLASTY IMPLANT 03/18/2018 RADHA MACKEY MD Ot Z98.890 OTHER SPECIFIED POSTPROCEDURAL STATES 03/19/2018 Ulices LYONS MD Ot E78 .5 HYPERLIPIDEMIA, UNSPECIFIED 03/19/2018 Ulices LYONS MD Ot F17.210 NICOTINE DEPENDENCE, CIGARETTES, UNCOMPL 03/19/2018 Ulices LYONS MD Ot I10 ESSENTIAL (PRIMARY) HYPERTENSION 03/19/2018 Ulices LYONS MD Ot I25.10 ATHSCL HEART DISEASE OF [place] CORONARY 03/19/2018 Ulices LYONS MD Ot I48 .0 PAROXYSMAL ATRIAL FIBRILLATION 03/19/2018 Ulices LYONS MD, Ot I48 .3 TYPICAL ATRIAL FLUTTER 03/19/2018 Ulices LYONS MD Ot K21 .9 GASTRO-ESOPHAGEAL REFLUX DISEASE WITHOUT 03/19/2018 Ulices LYONS MD Ot Z11 .2 ENCOUNTER FOR SCREENING FOR OTHER BACTER 03/19/2018 Ulices LYONS MD, Ot Z79.01 [facility] (CURRENT) USE OF ANTICOAGULANT 03/19/2018 Ulices LYONS MD, Ot Z79.82 ENTRY LEVEL SALES ASSOCIATE (CURRENT) USE OF ASPIRIN 03/19/2018 Ulices LYONS MD, Ot 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 03/19/2018 Ulices LYONS MD, Ot Z85.46 PERSONAL HISTORY OF MALIGNANT NEOPLASM O 03/19/2018 Ulices LYONS MD, Ot 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 03/19/2018 Ulices LYONS MD Ot Z95 .1 PRESENCE OF AORTOCORONARY BYPASS GRAFT 03/19/2018 Ulices LYONS MD Ot Z95 .5 PRESENCE OF CORONARY ANGIOPLASTY IMPLANT 03/20/2018 FARRUKH SCOTT MD Ot G47.10 HYPERSOMNIA, UNSPECIFIED 03/22/2018 FARRUKH SCOTT MD Ot G47.10 HYPERSOMNIA, UNSPECIFIED 03/22/2018 FARRUKH SCOTT MD Ot G47.33 OBSTRUCTIVE SLEEP APNEA (ADULT) (PEDIATR 03/24/2018 FARRUKH SCOTT MD Ot G47.10 HYPERSOMNIA, UNSPECIFIED 03/24/2018 FARRUKH SCOTT MD Ot G47.33 OBSTRUCTIVE SLEEP APNEA (ADULT) (PEDIATR 03/25/2018 Ulices LOYNS MD Ot E78 .5 HYPERLIPIDEMIA, UNSPECIFIED 03/25/2018 Ulices LYONS MD Ot F17.210 NICOTINE DEPENDENCE, CIGARETTES, UNCOMPL 03/25/2018 Ulices LYONS MD Ot I10 ESSENTIAL (PRIMARY) HYPERTENSION 03/25/2018 Ulices LYONS MD Ot I25.10 ATHSCL HEART DISEASE OF [place] CORONARY 03/25/2018 Ulices LYONS MD Ot I48 .0 PAROXYSMAL ATRIAL FIBRILLATION 03/25/2018 KHALID MD, M NABOR Ot I48 .3 TYPICAL ATRIAL FLUTTER 03/25/2018 Ulices LYONS MD Ot K21 .9 GASTRO-ESOPHAGEAL REFLUX DISEASE WITHOUT 03/25/2018 Ulices LYONS MD Ot Z11 .2 ENCOUNTER FOR SCREENING FOR OTHER BACTER 03/25/2018 Ulices LYONS MD Ot Z79.01 [facility] (CURRENT) USE OF ANTICOAGULANT 03/25/2018 Ulices LYONS MD Ot Z79.82 ENTRY LEVEL SALES ASSOCIATE (CURRENT) USE OF ASPIRIN 03/25/2018 Ulices LYONS MD Ot 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 03/25/2018 Ulices LYONS MD Ot Z85.46 PERSONAL HISTORY OF MALIGNANT NEOPLASM O 03/25/2018 Ulices LYONS MD Ot 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 03/25/2018 Ulices LYONS MD Ot Z95 .1 PRESENCE OF AORTOCORONARY BYPASS GRAFT 03/25/2018 Ulices LYONS MD Ot Z95 .5 PRESENCE OF CORONARY ANGIOPLASTY IMPLANT 03/27/2018 FELISHA CASTANEDA, FARRUKH Gaona Ot G47.10 HYPERSOMNIA, UNSPECIFIED 03/27/2018 FELISHA CASTANEDA, FARRUKH Gaona Ot G47.33 OBSTRUCTIVE SLEEP APNEA (ADULT) (PEDIATR 06/03/2018 DEAN SHI RAISE DRILLER Ot G47.33 OBSTRUCTIVE SLEEP APNEA (ADULT) (PEDIATR 06/03/2018 DEAN SHI RAISE DRILLER Ot J44.9 CHRONIC OBSTRUCTIVE PULMONARY DISEASE, U 06/03/2018 DEAN SHI RAISE DRILLER Ot R06.00 DYSPNEA, UNSPECIFIED 06/03/2018 DEAN SHI RAISE DRILLER Ot R91.1 SOLITARY PULMONARY NODULE 06/03/2018 DEAN SHI RAISE DRILLER Ot Z72.0 TOBACCO USE 06/10/2018 DEAN SHI RAISE DRILLER Ot G47.33 OBSTRUCTIVE SLEEP APNEA (ADULT) (PEDIATR 06/10/2018 DEAN SHI RAISE DRILLER Ot J44.9 CHRONIC OBSTRUCTIVE PULMONARY DISEASE, U 06/10/2018 DEAN SHI RAISE DRILLER Ot R06.00 DYSPNEA, UNSPECIFIED 06/10/2018 DEAN SHI RAISE DRILLER Ot R91.1 SOLITARY PULMONARY NODULE 06/10/2018 DEAN SHI APRN Ot Z72.0 TOBACCO USE 06/16/2018 KAYLEY LAMBERT MD Ot E78. 2 MIXED HYPERLIPIDEMIA 06/16/2018 KAYLEY LAMBERT MD Ot I10 ESSENTIAL (PRIMARY) HYPERTENSION 06/16/2018 KAYLEY LAMBERT MD Ot I25. 10 ATHSCL HEART DISEASE OF [place] CORONARY 06/16/2018 KAYLEY LAMBERT MD Ot R06. 09 OTHER FORMS OF DYSPNEA 07/08/2018 KAYLEY LAMBERT MD Ot E78. 2 MIXED HYPERLIPIDEMIA 07/08/2018 KAYLEY LAMBERT MD Ot I10 ESSENTIAL (PRIMARY) HYPERTENSION 07/08/2018 KAYLEY LAMBERT MD Ot I25. 10 ATHSCL HEART DISEASE OF [place] CORONARY 07/08/2018 KAYLEY LAMBERT MD Ot R06. 09 OTHER FORMS OF DYSPNEA 07/14/2018 KAYLEY LAMBERT MD Ot E78. 2 MIXED HYPERLIPIDEMIA 07/14/2018 KAYLEY LAMBERT MD Ot I10 ESSENTIAL (PRIMARY) HYPERTENSION 07/14/2018 KAYLEY LAMBERT MD Ot I25. 10 ATHSCL HEART DISEASE OF [place] CORONARY 07/14/2018 KAYLEY LAMBERT MD Ot R06. 09 OTHER FORMS OF DYSPNEA 09/24/2018 LINDSAY SIMMS Ot F17.210 NICOTINE DEPENDENCE, CIGARETTES, UNCOMPL 09/24/2018 LINDSAY SIMMS Ot R91.1 SOLITARY PULMONARY NODULE 09/24/2018 LINDSAY SIMMS Ot Z08 ENCNTR FOR FOLLOW-UP EXAM AFTER TRTMT FO 09/24/2018 LINDSAY SIMMS Ot 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 09/24/2018 LINDSAY SIMMS Ot 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 09/24/2018 LINDSAY SIMMS Ot Z85.46 PERSONAL HISTORY OF MALIGNANT NEOPLASM O 09/24/2018 LINDSAY SIMMS Ot 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 09/24/2018 LINDSAY SIMMS Ot F17.210 NICOTINE DEPENDENCE, CIGARETTES, UNCOMPL 09/24/2018 LINDSAY SIMMS Ot R91.1 SOLITARY PULMONARY NODULE 09/24/2018 LINDSAY SIMMS Ot Z08 ENCNTR FOR FOLLOW-UP EXAM AFTER TRTMT FO 09/24/2018 LINDSAY SIMMS N Ot Z79.01 [facility] (CURRENT) USE OF ANTICOAGULANT 09/24/2018 LINDSAY SIMMS N Ot Z79.899 OTHER [facility] (CURRENT) DRUG THERAPY 09/24/2018 LINDSAY SIMMS N Ot Z85.46 PERSONAL HISTORY OF MALIGNANT NEOPLASM O 09/24/2018 LINDSAY SIMMS N Ot 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 10/19/2018 DEAN SHI APRN Ot J44.9 CHRONIC OBSTRUCTIVE PULMONARY DISEASE, U 10/19/2018 DEAN SHI APRN Ot J84.10 PULMONARY FIBROSIS, UNSPECIFIED 10/19/2018 DEAN SHI APRN Ot R91.8 OTHER NONSPECIFIC ABNORMAL FINDING OF [place] 10/21/2018 LINDSAY SIMMS Ot F17.210 NICOTINE DEPENDENCE, CIGARETTES, UNCOMPL 10/21/2018 DEMI LINDSAY N Ot R91.1 SOLITARY PULMONARY NODULE 10/21/2018 LINDSAY SIMMS N Ot Z08 ENCNTR FOR FOLLOW-UP EXAM AFTER TRTMT FO 10/21/2018 LINDSAY SIMMS N Ot 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 10/21/2018 LINDSAY SIMMS N Ot 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 10/21/2018 LINDSAY SIMMS N Ot Z85.46 PERSONAL HISTORY OF MALIGNANT NEOPLASM O 10/21/2018 LINDSAY SIMMS N Ot 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 12/03/2018 Ulices LYONS MD Ot E03 .9 HYPOTHYROIDISM, UNSPECIFIED 12/03/2018 Ulices LYONS MD Ot E11 .9 TYPE 2 DIABETES MELLITUS WITHOUT COMPLIC 12/03/2018 Ulices LYONS MD Ot E78 .2 MIXED HYPERLIPIDEMIA 12/03/2018 Ulices LYONS MD Ot F17.210 NICOTINE DEPENDENCE, CIGARETTES, UNCOMPL 12/03/2018 Ulices LYONS MD Ot G47.10 HYPERSOMNIA, UNSPECIFIED 12/03/2018 Ulices LYONS MD Ot G47.33 OBSTRUCTIVE SLEEP APNEA (ADULT) (PEDIATR 12/03/2018 Ulices LYONS MD Ot I10 ESSENTIAL (PRIMARY) HYPERTENSION 12/03/2018 Ulices LYONS MD, Ot I25.10 ATHSCL HEART DISEASE OF [place] CORONARY 12/03/2018 Ulices LYONS MD, Ot I34 .0 NONRHEUMATIC MITRAL (VALVE) INSUFFICIENC 12/03/2018 Ulices LYONS MD, Ot I48 .0 PAROXYSMAL ATRIAL FIBRILLATION 12/03/2018 Ulices LYONS MD, Ot I48 .3 TYPICAL ATRIAL FLUTTER 12/03/2018 Ulices LYONS MD, Ot 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 12/03/2018 Ulices LYONS MD, Ot J44 .9 CHRONIC OBSTRUCTIVE PULMONARY DISEASE, U 12/03/2018 Ulices LYONS MD, Ot M19.91 PRIMARY OSTEOARTHRITIS, UNSPECIFIED SITE 12/03/2018 Ulices LYONS MD, Ot 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 12/03/2018 Ulices LYONS MD Ot Z79.82 ENTRY LEVEL SALES ASSOCIATE (CURRENT) USE OF ASPIRIN 12/03/2018 Ulices LYONS MD, Ot 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 12/03/2018 Ulices LYONS MD, Ot Z85.46 PERSONAL HISTORY OF MALIGNANT NEOPLASM O 12/03/2018 Ulices LYONS MD Ot 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 12/03/2018 Ulices LYONS MD Ot Z95 .1 PRESENCE OF AORTOCORONARY BYPASS GRAFT 12/08/2018 Ulices LYONS MD Ot E03 .9 HYPOTHYROIDISM, UNSPECIFIED 12/08/2018 Ulices LYONS MD Ot E11 .9 TYPE 2 DIABETES MELLITUS WITHOUT COMPLIC 12/08/2018 Ulices LYONS MD Ot E78 .2 MIXED HYPERLIPIDEMIA 12/08/2018 Ulices LYONS MD, Ot F17.210 NICOTINE DEPENDENCE, CIGARETTES, UNCOMPL 12/08/2018 Ulices LYONS MD, Ot G47.10 HYPERSOMNIA, UNSPECIFIED 12/08/2018 Ulices LYONS MD, Ot G47.33 OBSTRUCTIVE SLEEP APNEA (ADULT) (PEDIATR 12/08/2018 Ulices LYONS MD, Ot I10 ESSENTIAL (PRIMARY) HYPERTENSION 12/08/2018 Ulices LYONS MD, Ot I25.10 ATHSCL HEART DISEASE OF [place] CORONARY 12/08/2018 Ulices LYONS MD, Ot I34 .0 NONRHEUMATIC MITRAL (VALVE) INSUFFICIENC 12/08/2018 Ulices LYONS MD, Ot I48 .0 PAROXYSMAL ATRIAL FIBRILLATION 12/08/2018 Ulices LYONS MD, Ot I48 .3 TYPICAL ATRIAL FLUTTER 12/08/2018 Ulices LYONS MD, Ot 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 12/08/2018 Ulices LYONS MD, Ot J44 .9 CHRONIC OBSTRUCTIVE PULMONARY DISEASE, U 12/08/2018 Ulices LYONS MD, Ot M19.91 PRIMARY OSTEOARTHRITIS, UNSPECIFIED SITE 12/08/2018 Ulices LYONS MD, Ot 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 12/08/2018 Ulices LYONS MD Ot Z79.82 [facility] (CURRENT) USE OF ASPIRIN 12/08/2018 Ulices LYONS MD, Ot 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 12/08/2018 Ulices LYONS MD, Ot Z85.46 PERSONAL HISTORY OF MALIGNANT NEOPLASM O 12/08/2018 Ulices LYONS MD, Ot 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 12/08/2018 Ulices LYONS MD Ot Z95 .1 PRESENCE OF AORTOCORONARY BYPASS GRAFT 12/08/2018 Ulices LYONS MD, Ot E03 .9 HYPOTHYROIDISM, UNSPECIFIED 12/08/2018 Ulices LYONS MD, Ot E11 .9 TYPE 2 DIABETES MELLITUS WITHOUT COMPLIC 12/08/2018 Ulices LYONS MD, Ot E78 .2 MIXED HYPERLIPIDEMIA 12/08/2018 Ulices LYONS MD, Ot F17.210 NICOTINE DEPENDENCE, CIGARETTES, UNCOMPL 12/08/2018 KHALID MD, M NABOR Ot G47.10 HYPERSOMNIA, UNSPECIFIED 12/08/2018 Ulices LYONS MD Ot G47.33 OBSTRUCTIVE SLEEP APNEA (ADULT) (PEDIATR 12/08/2018 Ulices LYONS MD Ot I10 ESSENTIAL (PRIMARY) HYPERTENSION 12/08/2018 Ulices LYONS MD Ot I25.10 ATHSCL HEART DISEASE OF [place] CORONARY 12/08/2018 Ulices LYONS MD Ot I34 .0 NONRHEUMATIC MITRAL (VALVE) INSUFFICIENC 12/08/2018 Ulices LYONS MD, Ot I48 .0 PAROXYSMAL ATRIAL FIBRILLATION 12/08/2018 Ulices LYONS MD, Ot I48 .3 TYPICAL ATRIAL FLUTTER 12/08/2018 Ulices LYONS MD Ot 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 12/08/2018 Ulices LYONS MD Ot J44 .9 CHRONIC OBSTRUCTIVE PULMONARY DISEASE, U 12/08/2018 Ulices LYONS MD Ot M19.91 PRIMARY OSTEOARTHRITIS, UNSPECIFIED SITE 12/08/2018 Ulices LYONS MD Ot 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 12/08/2018 Ulices LYONS MD Ot Z79.82 ENTRY LEVEL SALES ASSOCIATE (CURRENT) USE OF ASPIRIN 12/08/2018 Ulices LYONS MD Ot 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 12/08/2018 Ulices LYONS MD Ot Z85.46 PERSONAL HISTORY OF MALIGNANT NEOPLASM O 12/08/2018 Ulices LYONS MD Ot 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 12/08/2018 Ulices LYONS MD Ot Z95 .1 PRESENCE OF AORTOCORONARY BYPASS GRAFT 01/21/2019 Ulices LYONS MD Ot I48 .0 PAROXYSMAL ATRIAL FIBRILLATION 01/21/2019 Ulices LYONS MD Ot I48 .3 TYPICAL ATRIAL FLUTTER 01/22/2019 Ulices LYONS MD Ot I48 .0 PAROXYSMAL ATRIAL FIBRILLATION 01/22/2019 KHALID MD, M NABOR Ot I48 .3 TYPICAL ATRIAL FLUTTER 03/23/2019 [employer]THONY CASTR[employer] COMMISSIONER Ot 305.1 TOBACCO USE DISORDER 03/23/2019 ANTHONY CASTRO SCHOOL COMMISSIONER Ot 709.9 SKIN DISORDER NOS 03/23/2019 ANTHONY CASTRO Marquise SCHOOL COMMISSIONER Ot 787.99 OTHER GI SYSTEM SYMPTOMS 03/23/2019 ANTHONY CASTRO SCHOOL COMMISSIONER Ot V10.82 HX-MALIG SKIN MELANOMA 03/23/2019 KAYLEY LAMBERT MD Ot 272. 0 PURE HYPERCHOLESTEROLEM 03/23/2019 PETRA CASTNAEDA, KAYLEY J Ot 396. 3 MITRAL/AORTIC ROSETTE INSUFF 03/23/2019 KAYLEY LAMBERT MD J Ot 397. 0 TRICUSPID VALVE DISEASE 03/23/2019 KAYLEY LAMBERT MD Ot 401. 9 HYPERTENSION NOS 03/23/2019 KAYLEY LAMBERT MD J Ot 414. 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 NOS TYPE VESSEL, NATIV 03/23/2019 KAYLYE LAMBERT MD Ot 429. 3 CARDIOMEGALY 03/23/2019 KAYLEY LAMBERT MD Ot 272. 0 PURE HYPERCHOLESTEROLEM 03/23/2019 PETRA CASTANEDA, KAYLEY J Ot 401. 9 HYPERTENSION NOS 03/23/2019 PETRA CASTANEDA, KAYLEY Rivera Ot 414. 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 NOS TYPE VESSEL, NATIV 03/23/2019 KAYLEY LAMBERT MD Ot 427. 69 PREMATURE BEATS NEC 03/23/2019 GÉNESIS MIRAMONTES DO Ot 305. 1 TOBACCO USE DISORDER 03/23/2019 GÉNESIS MIRAMONTES DO Ot 780. 54 HYPERSOMNIA, UNSPECIFIED 03/23/2019 GÉNESIS MIRAMONTES DO Ot 786. 09 RESPIRATORY ABNORM NEC 03/23/2019 Ot 486 PNEUMO PETER, ORGANISM NOS 03/23/2019 Ot 780.60 FEV ER, UNSPECIFIED 03/23/2019 Ot 786.2 COUGH 03/23/2019 LINDSAY SIMMS Ot F17.200 NICOTINE DEPENDENCE, UNSPECIFIED, UNCOMP 03/23/2019 LINDSAY SIMMS Ot Z08 ENCNTR FOR FOLLOW-UP EXAM AFTER TRTMT FO 03/23/2019 LINDSAY SIMMS Ot 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 03/23/2019 LINDSAY SIMMS Ot 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 03/23/2019 [facility], LIANA Mooney Ot E78.0 PURE HYPERCHOLESTEROLEMIA 03/23/2019 [facility], LIANA K Ot I10 ESSENTIAL (PRIMARY) HYPERTENSION 03/23/2019 [facility], LIANA Mooney Ot I25.10 ATHSCL HEART DISEASE OF [place] CORONARY 03/23/2019 [facility], LIANA K Ot 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 03/23/2019 [facility], LIANA K Ot E78.0 PURE HYPERCHOLESTEROLEMIA 03/23/2019 [facility], LIANA K Ot I10 ESSENTIAL (PRIMARY) HYPERTENSION 03/23/2019 [facility], LIANA K Ot I25.10 ATHSCL HEART DISEASE OF [place] CORONARY 03/23/2019 [facility], LIANA Mooney Ot 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 03/23/2019 DEMI LINDSAY Lambert Ot F17.200 NICOTINE DEPENDENCE, UNSPECIFIED, UNCOMP 03/23/2019 DEMILINDSAY Ot Z08 ENCNTR FOR FOLLOW-UP EXAM AFTER TRTMT FO 03/23/2019 DEMI LINDSAY Lambert Ot Z79.899 OTHER [facility] (CURRENT) DRUG THERAPY 03/23/2019 DEMILINDSAY Ot 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 03/23/2019 DEMI, LINDSAY Lambert Ot F17.210 NICOTINE DEPENDENCE, CIGARETTES, UNCOMPL 03/23/2019 DEMILINDSAY Ot Z08 ENCNTR FOR FOLLOW-UP EXAM AFTER TRTMT FO 03/23/2019 LINDSAY SIMMS Ot 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 03/23/2019 DEMI, LINDSAY Lambert Ot 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 03/23/2019 JANN YADAV MD Ot F17.210 NICOTINE DEPENDENCE, CIGARETTES, UNCOMPL 03/23/2019 JANN YADAV MD Ot M54.6 PAIN IN THORACIC SPINE 03/23/2019 JANN YADAV MD Ot R07.89 OTHER CHEST PAIN 03/23/2019 JANN YADAV MD Ot R07.9 CHEST PAIN, UNSPECIFIED 03/23/2019 JANN YADAV MD Ot R91.1 SOLITARY PULMONARY NODULE 03/23/2019 JANN YADAV MD Ot Z79.02 ENTRY LEVEL SALES ASSOCIATE (CURRENT) USE OF ANTITHROMBOTI 03/23/2019 JANN YADAV MD, Ot Z79.899 OTHER [facility] (CURRENT) DRUG THERAPY 03/23/2019 JANN YADAV MD, Ot Z95.1 PRESENCE OF AORTOCORONARY BYPASS GRAFT 03/23/2019 KAYLEY LAMBERT MD Ot E11. 9 TYPE 2 DIABETES MELLITUS WITHOUT COMPLIC 03/23/2019 KAYLEY LAMBERT MD Ot E78. 2 MIXED HYPERLIPIDEMIA 03/23/2019 KAYLEY LAMBERT MD Ot I10 ESSENTIAL (PRIMARY) HYPERTENSION 03/23/2019 KAYLEY LAMBERT MD, Ot I25. 10 ATHSCL HEART DISEASE OF [place] CORONARY 03/23/2019 KAYLEY LAMBERT MD Ot R06. 00 DYSPNEA, UNSPECIFIED 03/23/2019 DEAN SHI RAISE DRILLER Ot R06.00 DYSPNEA, UNSPECIFIED 03/23/2019 JOSE GUADALUPEDEAN LEO RAISE DRILLER Ot R91.1 SOLITARY PULMONARY NODULE 03/23/2019 DEAN SHI RAISE DRILLER Ot Z72.0 TOBACCO USE 03/23/2019 WILIAM SHIINE Lai RAISE DRILLER Ot R91.1 SOLITARY PULMONARY NODULE 03/23/2019 LINDSAY SIMMS Ot F17.210 NICOTINE DEPENDENCE, CIGARETTES, UNCOMPL 03/23/2019 LINDSAY SIMMS Ot R91.1 SOLITARY PULMONARY NODULE 03/23/2019 LINDSAY SIMMS Ot Z08 ENCNTR FOR FOLLOW-UP EXAM AFTER TRTMT FO 03/23/2019 LINDSAY SIMMS Ot 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 03/23/2019 LINDSAY SIMMS Ot 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 03/23/2019 LIANA ARIAS Ot E78.2 MIXED HYPERLIPIDEMIA 03/23/2019 LIANA ARIAS Ot I10 ESSENTIAL (PRIMARY) HYPERTENSION 03/23/2019 LIANA ARIAS Ot I25.10 ATHSCL HEART DISEASE OF [place] CORONARY 03/23/2019 LIANA ARIAS Ot 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 03/23/2019 FARRUKH SCOTT MD Ot C6 1 MALIGNANT NEOPLASM OF PROSTATE 03/23/2019 FARRUKH SCOTT MD Ot J44.9 CHRONIC OBSTRUCTIVE PULMONARY DISEASE, U 03/23/2019 FARRUKH SCOTT MD Ot R59.1 GENERALIZED ENLARGED LYMPH NODES 03/23/2019 FARRUKH SCOTT MD Ot R91.8 OTHER NONSPECIFIC ABNORMAL FINDING OF [place] 03/23/2019 FARRUKH SCOTT MD Ot M16.0 BILATERAL PRIMARY OSTEOARTHRITIS OF HIP 03/23/2019 LINDSAY SIMMS Ot I10 ESSENTIAL (PRIMARY) HYPERTENSION 03/23/2019 LINDSAY SIMMS Ot Z85.46 PERSONAL HISTORY OF MALIGNANT NEOPLASM O 03/23/2019 MARVIN GROVE MD Ot M19.0 11 PRIMARY OSTEOARTHRITIS, RIGHT SHOULDER 03/23/2019 MAINE CASTANEDA, MARVIN Page Ot W19.XXXA UNSPECIFIED FALL, INITIAL ENCOUNTER 03/23/2019 DEAN SHI APRN Ot G47.33 OBSTRUCTIVE SLEEP APNEA (ADULT) (PEDIATR 03/23/2019 DEAN SHI APRN Ot J44.9 CHRONIC OBSTRUCTIVE PULMONARY DISEASE, U 03/23/2019 DEAN SHI RAISE DRILLER Ot R06.00 DYSPNEA, UNSPECIFIED 03/23/2019 DEAN SHI APRN Ot R91.1 SOLITARY PULMONARY NODULE 03/23/2019 DEAN SHI APRN Ot Z72.0 TOBACCO USE 03/23/2019 DEAN SHI APRN Ot J44.9 CHRONIC OBSTRUCTIVE PULMONARY DISEASE, U 03/23/2019 DEAN SHI APRN Ot J84.10 PULMONARY FIBROSIS, UNSPECIFIED 03/23/2019 DEAN SHI APRN Ot R91.8 OTHER NONSPECIFIC ABNORMAL FINDING OF [place] 03/23/2019 KAYLEY LAMBERT MD Ot E78. 2 MIXED HYPERLIPIDEMIA 03/23/2019 KAYLEY LAMBERT MD Ot I10 ESSENTIAL (PRIMARY) HYPERTENSION 03/23/2019 KAYLEY LAMBERT MD Ot I25. 10 ATHSCL HEART DISEASE OF [place] CORONARY 03/23/2019 KAYLEY LAMBERT MD Ot R06. 09 OTHER FORMS OF DYSPNEA 03/23/2019 LINDSAY SIMMS Ot F17.210 NICOTINE DEPENDENCE, CIGARETTES, UNCOMPL 03/23/2019 LINDSAY SIMMS Ot R91.1 SOLITARY PULMONARY NODULE 03/23/2019 LINDSAY SIMMS Fausto Ot Z08 ENCNTR FOR FOLLOW-UP EXAM AFTER TRTMT FO 03/23/2019 LINDSAY SIMMS Ot 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 03/23/2019 LINDSAY SIMMS Fausto Ot 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 03/23/2019 LINDSAY SIMMS Fausto Ot Z85.46 PERSONAL HISTORY OF MALIGNANT NEOPLASM O 03/23/2019 LINDSAY SIMMS Fausto Ot 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 03/23/2019 ELOY CASTANEDA, Ulices TOMLIN Ot I48 .0 PAROXYSMAL ATRIAL FIBRILLATION 03/23/2019 Ulices LYONS MD Ot I48 .3 TYPICAL ATRIAL FLUTTER 03/26/2019 WILIAM SHIINE E RAISE DRILLER Ot G47.33 OBSTRUCTIVE SLEEP APNEA (ADULT) (PEDIATR 03/26/2019 JOSE GUADALUPE DEAN E RAISE DRILLER Ot I25.10 ATHSCL HEART DISEASE OF [place] CORONARY 03/26/2019 JOSE GUADALUPE DEAN E RAISE DRILLER Ot I51.7 CARDIOMEGALY 03/26/2019 JOSE GUADALUPE DEAN E RAISE DRILLER Ot J44.9 CHRONIC OBSTRUCTIVE PULMONARY DISEASE, U 03/26/2019 JOSE GUADALUPE DEAN E RAISE DRILLER Ot J84.10 PULMONARY FIBROSIS, UNSPECIFIED 03/26/2019 JOSE GUADALUPE, DEAN E RAISE DRILLER Ot R91.8 OTHER NONSPECIFIC ABNORMAL FINDING OF [place] 03/26/2019 WILIAM SHIINE E RAISE DRILLER Ot Z72.0 TOBACCO USE 04/13/2019 WILIAM SHIINE E RAISE DRILLER Ot G47.33 OBSTRUCTIVE SLEEP APNEA (ADULT) (PEDIATR 04/13/2019 JOSE GUADALUPE, DEAN E RAISE DRILLER Ot I25.10 ATHSCL HEART DISEASE OF [place] CORONARY 04/13/2019 JOSE GUADALUPE, DEAN E RAISE DRILLER Ot I51.7 CARDIOMEGALY 04/13/2019 JOSE GUADALUPE DEAN E RAISE DRILLER Ot J44.9 CHRONIC OBSTRUCTIVE PULMONARY DISEASE, U 04/13/2019 JOSE GUADALUPE, DEAN E RAISE DRILLER Ot J84.10 PULMONARY FIBROSIS, UNSPECIFIED 04/13/2019 JOSE GUADALUPE DEAN E RAISE DRILLER Ot R91.8 OTHER NONSPECIFIC ABNORMAL FINDING OF [place] 04/13/2019 JOSE GUADALUPE, DEAN E RAISE DRILLER Ot Z72.0 TOBACCO USE 05/07/2019 BRIDGETT [employer]STR[employer] COMMISSIONER Ot 305.1 TOBACCO USE DISORDER 05/07/2019 CASTROANTHONY [place] [employer] COMM[employer]ER Ot 709.9 SKIN DISORDER NOS 05/07/2019 ANTHONY [employer]O [employer] COMMISSIONER Ot 787.99 OTHER GI SYSTEM SYMPTOMS 05/07/2019 ANTHONY CA[employer]CHO[employer] COMMISSIONER Ot V10.82 HX-MALIG SKIN MELANOMA 05/07/2019 PETRA CASTANEDA, KAYLEY Rivera Ot 272. 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 0 TRICUSPID VALVE DISEASE 05/07/2019 PETRA CASTANEDA, KAYLEY J Ot 401. 9 HYPERTENSION NOS 05/07/2019 PETRA CASTANEDA, KAYLEY J Ot 414. 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 NOS TYPE VESSEL, NATIV 05/07/2019 PETRA CASTANEDA, KAYLEY Rivera Ot 429. 3 CARDIOMEGALY 05/07/2019 KAYLEY LAMBERT MD Ot 272. 0 PURE HYPERCHOLESTEROLEM 05/07/2019 PETRA CASTANEDA, CHENCHOHAR J Ot 401. 9 HYPERTENSION NOS 05/07/2019 PETRA CASTANEDA, CHENCHOHAR J Ot 414. 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 NOS TYPE VESSEL, NATIV 05/07/2019 PETRA CASTANEDA, KAYLEY Rivera Ot 427. 69 PREMATURE BEATS NEC 05/07/2019 GÉNESIS MIRAMONTES DO Ot 305. 1 TOBACCO USE DISORDER 05/07/2019 GÉNESIS IMRAMONTES DO Ot 780. 54 HYPERSOMNIA, UNSPECIFIED 05/07/2019 GÉNESIS MIRAMONTES DO Ot 786. 09 RESPIRATORY ABNORM NEC 05/07/2019 Ot 486 PNEUMO PETER, ORGANISM NOS 05/07/2019 Ot 780.60 FEV ER, UNSPECIFIED 05/07/2019 Ot 786.2 COUGH 05/07/2019 LINDSAY SIMMS Ot F17.200 NICOTINE DEPENDENCE, UNSPECIFIED, UNCOMP 05/07/2019 LINDSAY SIMMS Ot Z08 ENCNTR FOR FOLLOW-UP EXAM AFTER TRTMT FO 05/07/2019 LINDSAY SIMMS Ot Z79.899 OTHER [facility] (CURRENT) DRUG THERAPY 05/07/2019 LINDSAY SIMMS Ot 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 05/07/2019 TANG-CHRISTIAN PA, LIANA K Ot E78.0 PURE HYPERCHOLESTEROLEMIA 05/07/2019 [facility], LIANA K Ot I10 ESSENTIAL (PRIMARY) HYPERTENSION 05/07/2019 [facility] PA, LIANA Mooney Ot I25.10 ATHSCL HEART DISEASE OF [place] CORONARY 05/07/2019 [facility] PA, LIANA Mooney Ot 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 05/07/2019 [facility] PA, LIANA K Ot E78.0 PURE HYPERCHOLESTEROLEMIA 05/07/2019 [facility] PA, LIANA K Ot I10 ESSENTIAL (PRIMARY) HYPERTENSION 05/07/2019 [facility] PA, LIANA Mooney Ot I25.10 ATHSCL HEART DISEASE OF [place] CORONARY 05/07/2019 [facility] PA, LIANA Mooney Ot 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 05/07/2019 DEMILINDSAY Ot F17.200 NICOTINE DEPENDENCE, UNSPECIFIED, UNCOMP 05/07/2019 DEMILINDSAY Ot Z08 ENCNTR FOR FOLLOW-UP EXAM AFTER TRTMT FO 05/07/2019 DEMILINDSAY Ot 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 05/07/2019 DEMILINDSAY Ot 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 05/07/2019 LINDSAY SIMMS Ot F17.210 NICOTINE DEPENDENCE, CIGARETTES, UNCOMPL 05/07/2019 LINDSAY SIMMS Ot Z08 ENCNTR FOR FOLLOW-UP EXAM AFTER TRTMT FO 05/07/2019 LINDSAY SIMMS Ot Z79.899 OTHER [facility] (CURRENT) DRUG THERAPY 05/07/2019 LINDSAY SIMMS Ot 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 05/07/2019 JANN YADAV MD Ot F17.210 NICOTINE DEPENDENCE, CIGARETTES, UNCOMPL 05/07/2019 VICENTA CASTANEDA, JANN Chaidez Ot M54.6 PAIN IN THORACIC SPINE 05/07/2019 JANN YADAV MD Ot R07.89 OTHER CHEST PAIN 05/07/2019 JANN YADAV MD Ot R07.9 CHEST PAIN, UNSPECIFIED 05/07/2019 JANN YADAV MD Ot R91.1 SOLITARY PULMONARY NODULE 05/07/2019 JANN YADAV MD Ot Z79.02 ENTRY LEVEL SALES 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 9 TYPE 2 DIABETES MELLITUS WITHOUT COMPLIC 05/07/2019 KAYLEY LAMBERT MD, Ot E78. 2 MIXED HYPERLIPIDEMIA 05/07/2019 KAYLEY LAMBERT MD Ot I10 ESSENTIAL (PRIMARY) HYPERTENSION 05/07/2019 KAYLEY LAMBERT MD, Ot I25. 10 ATHSCL HEART DISEASE OF [place] CORONARY 05/07/2019 KAYLEY LAMBERT MD Ot R06. 00 DYSPNEA, UNSPECIFIED 05/07/2019 JOSE GUADALUPEDEAN LEO RAISE DRILLER Ot R06.00 DYSPNEA, UNSPECIFIED 05/07/2019 JOSE GUADALUPE, DEAN E RAISE DRILLER Ot R91.1 SOLITARY PULMONARY NODULE 05/07/2019 DEAN SHI RAISE DRILLER Ot Z72.0 TOBACCO USE 05/07/2019 WILIAM SHIINE Lai RAISE DRILLER Ot R91.1 SOLITARY PULMONARY NODULE 05/07/2019 LINDSAY SIMMS Ot F17.210 NICOTINE DEPENDENCE, CIGARETTES, UNCOMPL 05/07/2019 LINDSAY SIMMS Ot R91.1 SOLITARY PULMONARY NODULE 05/07/2019 LINDSAY SIMMS Ot Z08 ENCNTR FOR FOLLOW-UP EXAM AFTER TRTMT FO 05/07/2019 LINDSAY SIMMS Ot 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 05/07/2019 LINDSAY SIMMS Ot 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 05/07/2019 LIANA ARIAS Ot E78.2 MIXED HYPERLIPIDEMIA 05/07/2019 LIANA ARIAS Ot I10 ESSENTIAL (PRIMARY) HYPERTENSION 05/07/2019 LIANA ARIAS Ot I25.10 ATHSCL HEART DISEASE OF [place] CORONARY 05/07/2019 LIANA ARIAS Ot 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 05/07/2019 FELISHA CASTANEDA, FARRUKH Gaona Ot C6 1 MALIGNANT NEOPLASM OF PROSTATE 05/07/2019 FARRUKH SCOTT MD Ot J44.9 CHRONIC OBSTRUCTIVE PULMONARY DISEASE, U 05/07/2019 FARRUKH SCOTT MD Ot R59.1 GENERALIZED ENLARGED LYMPH NODES 05/07/2019 FARRUKH SCOTT MD Ot R91.8 OTHER NONSPECIFIC ABNORMAL FINDING OF [place] 05/07/2019 FARRUKH SCOTT MD Ot M16.0 BILATERAL PRIMARY OSTEOARTHRITIS OF HIP 05/07/2019 LINDSAY SIMMS Ot I10 ESSENTIAL (PRIMARY) HYPERTENSION 05/07/2019 LINDSAY SIMMS Ot Z85.46 PERSONAL HISTORY OF MALIGNANT NEOPLASM O 05/07/2019 MAINE CASTANEDA, MARVIN Page Ot M19.0 11 PRIMARY OSTEOARTHRITIS, RIGHT SHOULDER 05/07/2019 MAINE CASTANEDA, MARVIN Page Ot W19.XXXA UNSPECIFIED FALL, INITIAL ENCOUNTER 05/07/2019 DEAN SHI APRN Ot G47.33 OBSTRUCTIVE SLEEP APNEA (ADULT) (PEDIATR 05/07/2019 DEAN SHI RAISE DRILLER Ot J44.9 CHRONIC OBSTRUCTIVE PULMONARY DISEASE, U 05/07/2019 DEAN SHI RAISE DRILLER Ot R06.00 DYSPNEA, UNSPECIFIED 05/07/2019 WILIAM SHIINE Lai RAISE DRILLER Ot R91.1 SOLITARY PULMONARY NODULE 05/07/2019 DEAN SHI RAISE DRILLER Ot Z72.0 TOBACCO USE 05/07/2019 DEAN SHI RAISE DRILLER Ot J44.9 CHRONIC OBSTRUCTIVE PULMONARY DISEASE, U 05/07/2019 WILIAM SHIINE Lai RAISE DRILLER Ot J84.10 PULMONARY FIBROSIS, UNSPECIFIED 05/07/2019 DEAN SHI RAISE DRILLER Ot R91.8 OTHER NONSPECIFIC ABNORMAL FINDING OF [place] 05/07/2019 KAYLEY LAMBERT MD Ot E78. 2 MIXED HYPERLIPIDEMIA 05/07/2019 KAYLEY LAMBERT MD Ot I10 ESSENTIAL (PRIMARY) HYPERTENSION 05/07/2019 KAYLEY LAMBERT MD Ot I25. 10 ATHSCL HEART DISEASE OF [place] CORONARY 05/07/2019 KAYLEY LAMBERT MD Ot R06. 09 OTHER FORMS OF DYSPNEA 05/07/2019 DEAN SHI APRN Ot G47.33 OBSTRUCTIVE SLEEP APNEA (ADULT) (PEDIATR 05/07/2019 EDAN SHI APRN Ot I25.10 ATHSCL HEART DISEASE OF [place] CORONARY 05/07/2019 DEAN SHI RAISE DRILLER Ot I51.7 CARDIOMEGALY 05/07/2019 DEAN SHI RAISE DRILLER Ot J44.9 CHRONIC OBSTRUCTIVE PULMONARY DISEASE, U 05/07/2019 DEAN SHI RAISE DRILLER Ot J84.10 PULMONARY FIBROSIS, UNSPECIFIED 05/07/2019 DEAN SHI RAISE DRILLER Ot R91.8 OTHER NONSPECIFIC ABNORMAL FINDING OF [place] 05/07/2019 DEAN SHI RAISE DRILLER Ot Z72.0 TOBACCO USE 05/07/2019 LINDSAY SIMMS Ot F17.210 NICOTINE DEPENDENCE, CIGARETTES, UNCOMPL 05/07/2019 LINDSAY SIMMS Ot R91.1 SOLITARY PULMONARY NODULE 05/07/2019 LINDSAY SIMMS Ot Z08 ENCNTR FOR FOLLOW-UP EXAM AFTER TRTMT FO 05/07/2019 LINDSAY SIMMS Ot Z79.01 [facility] (CURRENT) USE OF ANTICOAGULANT 05/07/2019 LINDSAY SIMMS Ot Z79.899 OTHER [facility] (CURRENT) DRUG THERAPY 05/07/2019 LINDSAY SIMMS Ot Z85.46 PERSONAL HISTORY OF MALIGNANT NEOPLASM O 05/07/2019 LINDSAY SIMMS Ot 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 05/07/2019 ELOY CASTANEDA, Ulices TOMLIN Ot I48 .0 PAROXYSMAL ATRIAL FIBRILLATION 05/07/2019 ELOY CASTANEDA, Ulices TOMLIN Ot I48 .3 TYPICAL ATRIAL FLUTTER 05/20/2019 [employer] COMMISS[employer] Ot 305.1 TOBACCO USE DISORDER 05/20/2019 AN[employer]Y [employer] COMMISSIONER Ot 709.9 SKIN DISORDER NOS 05/20/2019 AN[employer] COMMISSIONER Ot 787.99 OTHER GI SYSTEM SYMPTOMS 05/20/2019 AN[employer]Y [employer] COMMISSIONER Ot V10.82 HX-MALIG SKIN MELANOMA 05/20/2019 KAYLEY LAMBERT MD Ot 272. 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 0 TRICUSPID VALVE DISEASE 05/20/2019 KAYLEY LAMBERT MD Ot 401. 9 HYPERTENSION NOS 05/20/2019 KAYLEY LAMBERT MD Ot 414. 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 NOS TYPE VESSEL, NATIV 05/20/2019 KAYLEY LAMBERT MD Ot 429. 3 CARDIOMEGALY 05/20/2019 KAYLEY LAMBERT MD Ot 272. 0 PURE HYPERCHOLESTEROLEM 05/20/2019 KAYLEY LAMBERT MD Ot 401. 9 HYPERTENSION NOS 05/20/2019 KAYLEY LAMBERT MD Ot 414. 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 NOS TYPE VESSEL, NATIV 05/20/2019 PETRA CASTANEDA, KAYLEY Rivera Ot 427. 69 PREMATURE BEATS NEC 05/20/2019 GÉNESIS MIRAMONTES DO Ot 305. 1 TOBACCO USE DISORDER 05/20/2019 GÉNESIS MIRAMONTES DO Ot 780. 54 HYPERSOMNIA, UNSPECIFIED 05/20/2019 GÉNESIS MIRAMONTES DO Ot 786. 09 RESPIRATORY ABNORM NEC 05/20/2019 Ot 486 PNEUMO PETER, ORGANISM NOS 05/20/2019 Ot 780.60 FEV ER, UNSPECIFIED 05/20/2019 Ot 786.2 COUGH 05/20/2019 LINDSAY SIMMS Ot F17.200 NICOTINE DEPENDENCE, UNSPECIFIED, UNCOMP 05/20/2019 LINDSAY SIMMS Ot Z08 ENCNTR FOR FOLLOW-UP EXAM AFTER TRTMT FO 05/20/2019 LINDSAY SIMMS Ot Z79.899 OTHER [facility] (CURRENT) DRUG THERAPY 05/20/2019 LINDSAY SIMMS Ot 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 05/20/2019 LIANA ARIAS Ot E78.0 PURE HYPERCHOLESTEROLEMIA 05/20/2019 LIANA ARIAS Ot I10 ESSENTIAL (PRIMARY) HYPERTENSION 05/20/2019 LIANA ARIAS Ot I25.10 ATHSCL HEART DISEASE OF [place] CORONARY 05/20/2019 LIANA ARIAS Ot 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 05/20/2019 LIANA ARIAS Ot E78.0 PURE HYPERCHOLESTEROLEMIA 05/20/2019 LIANA ARIAS Ot I10 ESSENTIAL (PRIMARY) HYPERTENSION 05/20/2019 LIANA ARIAS Ot I25.10 ATHSCL HEART DISEASE OF [place] CORONARY 05/20/2019 LIANA ARIAS Ot 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 05/20/2019 LINDSAY SIMMS Fausto Ot F17.200 NICOTINE DEPENDENCE, UNSPECIFIED, UNCOMP 05/20/2019 LINDSAY SIMMS Fausto Ot Z08 ENCNTR FOR FOLLOW-UP EXAM AFTER TRTMT FO 05/20/2019 LINDSAY SIMMS Fausto Ot 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 05/20/2019 LINDSAY SIMMS Fausto Ot 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 05/20/2019 DEMI JAROCHOVANDANA Fausto Ot F17.210 NICOTINE DEPENDENCE, CIGARETTES, UNCOMPL 05/20/2019 LINDSAY SIMMS Fausto Ot Z08 ENCNTR FOR FOLLOW-UP EXAM AFTER TRTMT FO 05/20/2019 LINDSAY SIMMS Fausto Ot Z79.899 OTHER [facility] (CURRENT) DRUG THERAPY 05/20/2019 LINDSAY SIMMS Fausto Ot 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 05/20/2019 JANN YADAV MD, Ot F17.210 NICOTINE DEPENDENCE, CIGARETTES, UNCOMPL 05/20/2019 JANN YADAV MD Ot M54.6 PAIN IN THORACIC SPINE 05/20/2019 JANN YADAV MD Ot R07.89 OTHER CHEST PAIN 05/20/2019 JANN YADAV MD Ot R07.9 CHEST PAIN, UNSPECIFIED 05/20/2019 JANN YADAV MD Ot R91.1 SOLITARY PULMONARY NODULE 05/20/2019 JANN YADAV MD Ot Z79.02 ENTRY LEVEL SALES ASSOCIATE (CURRENT) USE OF ANTITHROMBOTI 05/20/2019 JANN YADAV MD, Ot 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 05/20/2019 JANN YADAV MD Ot Z95.1 PRESENCE OF AORTOCORONARY BYPASS GRAFT 05/20/2019 KAYLEY LAMBERT MD Ot E11. 9 TYPE 2 DIABETES MELLITUS WITHOUT COMPLIC 05/20/2019 KAYLEY LAMBERT MD, Ot E78. 2 MIXED HYPERLIPIDEMIA 05/20/2019 KAYLEY LAMBERT MD, Ot I10 ESSENTIAL (PRIMARY) HYPERTENSION 05/20/2019 KAYLEY LAMBERT MD Ot I25. 10 ATHSCL HEART DISEASE OF [place] CORONARY 05/20/2019 KAYLEY LAMBERT MD Ot R06. 00 DYSPNEA, UNSPECIFIED 05/20/2019 DEAN SHI APRN Ot R06.00 DYSPNEA, UNSPECIFIED 05/20/2019 DEAN SHI APRN Ot R91.1 SOLITARY PULMONARY NODULE 05/20/2019 DEAN SHI APRN Ot Z72.0 TOBACCO USE 05/20/2019 DEAN SHI APRN Ot R91.1 SOLITARY PULMONARY NODULE 05/20/2019 DEMILINDSAY Ot F17.210 NICOTINE DEPENDENCE, CIGARETTES, UNCOMPL 05/20/2019 DEMILINDSAY Ot R91.1 SOLITARY PULMONARY NODULE 05/20/2019 DEMILINDSAY Ot Z08 ENCNTR FOR FOLLOW-UP EXAM AFTER TRTMT FO 05/20/2019 LINDSAY SIMMS Ot 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 05/20/2019 LINDSAY SIMMS Ot 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 05/20/2019 LIANA ARIAS Ot E78.2 MIXED HYPERLIPIDEMIA 05/20/2019 LIANA ARIAS Ot I10 ESSENTIAL (PRIMARY) HYPERTENSION 05/20/2019 LIANA ARIAS Ot I25.10 ATHSCL HEART DISEASE OF [place] CORONARY 05/20/2019 LIANA ARIAS Ot 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 05/20/2019 FARRUKH SCOTT MD Ot C6 1 MALIGNANT NEOPLASM OF PROSTATE 05/20/2019 FARRUKH SCOTT MD Ot J44.9 CHRONIC OBSTRUCTIVE PULMONARY DISEASE, U 05/20/2019 FARRUKH SCOTT MD Ot R59.1 GENERALIZED ENLARGED LYMPH NODES 05/20/2019 FARRUKH SCOTT MD Ot R91.8 OTHER NONSPECIFIC ABNORMAL FINDING OF [place] 05/20/2019 FARRUKH SCOTT MD Ot M16.0 BILATERAL PRIMARY OSTEOARTHRITIS OF HIP 05/20/2019 LINDSAY SIMMS Ot I10 ESSENTIAL (PRIMARY) HYPERTENSION 05/20/2019 LINDSAY SIMMS Ot Z85.46 PERSONAL HISTORY OF MALIGNANT NEOPLASM O 05/20/2019 MARVIN GROVE MD Ot M19.0 11 PRIMARY OSTEOARTHRITIS, RIGHT SHOULDER 05/20/2019 MARVIN GROVE MD Ot W19.XXXA UNSPECIFIED FALL, INITIAL ENCOUNTER 05/20/2019 JOSE GUADALUPE, DEAN E RAISE DRILLER Ot G47.33 OBSTRUCTIVE SLEEP APNEA (ADULT) (PEDIATR 05/20/2019 JOSE GUADALUPE, DEAN E RAISE DRILLER Ot J44.9 CHRONIC OBSTRUCTIVE PULMONARY DISEASE, U 05/20/2019 JOSE GUADALUPE, DEAN E RAISE DRILLER Ot R06.00 DYSPNEA, UNSPECIFIED 05/20/2019 JOSE GUADALUPE, DEAN E RAISE DRILLER Ot R91.1 SOLITARY PULMONARY NODULE 05/20/2019 WILIAM SHIINE Lai RAISE DRILLER Ot Z72.0 TOBACCO USE 05/20/2019 WILIAM SHIINE E RAISE DRILLER Ot J44.9 CHRONIC OBSTRUCTIVE PULMONARY DISEASE, U 05/20/2019 JOSE GUADALUPE DEAN E RAISE DRILLER Ot J84.10 PULMONARY FIBROSIS, UNSPECIFIED 05/20/2019 JOSE GUADALUPE DEAN E RAISE DRILLER Ot R91.8 OTHER NONSPECIFIC ABNORMAL FINDING OF [place] 05/20/2019 KAYLEY LAMBERT MD Ot E78. 2 MIXED HYPERLIPIDEMIA 05/20/2019 KAYLEY LAMBERT MD Ot I10 ESSENTIAL (PRIMARY) HYPERTENSION 05/20/2019 KAYLEY LAMBERT MD Ot I25. 10 ATHSCL HEART DISEASE OF [place] CORONARY 05/20/2019 KAYLEY LAMBERT MD J Ot R06. 09 OTHER FORMS OF DYSPNEA 05/20/2019 JOSE GUADALUPE DEAN E RAISE DRILLER Ot G47.33 OBSTRUCTIVE SLEEP APNEA (ADULT) (PEDIATR 05/20/2019 JOSE GUADALUPE, DEAN E RAISE DRILLER Ot I25.10 ATHSCL HEART DISEASE OF [place] CORONARY 05/20/2019 WILIAM SHIINE E RAISE DRILLER Ot I51.7 CARDIOMEGALY 05/20/2019 WILIAM SHIINE E RAISE DRILLER Ot J44.9 CHRONIC OBSTRUCTIVE PULMONARY DISEASE, U 05/20/2019 JOSE GUADALUPE DEAN E RAISE DRILLER Ot J84.10 PULMONARY FIBROSIS, UNSPECIFIED 05/20/2019 JOSE GUADALUPE DEAN E RAISE DRILLER Ot R91.8 OTHER NONSPECIFIC ABNORMAL FINDING OF [place] 05/20/2019 JOSE GUADALUPE DEAN Lai RAISE DRILLER Ot Z72.0 TOBACCO USE 05/20/2019 LINDSAY SIMMS Ot F17.210 NICOTINE DEPENDENCE, CIGARETTES, UNCOMPL 05/20/2019 LINDSAY SIMMS Ot R91.1 SOLITARY PULMONARY NODULE 05/20/2019 LINDSAY SIMMS Ot Z08 ENCNTR FOR FOLLOW-UP EXAM AFTER TRTMT FO 05/20/2019 LINDSAY SIMMS Ot Z79.01 [facility] (CURRENT) USE OF ANTICOAGULANT 05/20/2019 LINDSAY SIMMS Ot 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 05/20/2019 LINDSAY SIMMS Ot Z85.46 PERSONAL HISTORY OF MALIGNANT NEOPLASM O 05/20/2019 LINDSAY SIMMS Ot 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 05/20/2019 ELOY CASTANEDA, Ulices TOMLIN Ot I48 .0 PAROXYSMAL ATRIAL FIBRILLATION 05/20/2019 Ulices LYONS MD Ot I48 .3 TYPICAL ATRIAL FLUTTER 05/21/2019 KAYLEY LAMBERT MD Ot E78. 2 MIXED HYPERLIPIDEMIA 05/21/2019 KAYLEY LAMBERT MD Ot I10 ESSENTIAL (PRIMARY) HYPERTENSION 05/21/2019 KAYLEY LAMBERT MD Ot I25. 10 ATHSCL HEART DISEASE OF [place] CORONARY 05/21/2019 KAYLEY LAMBERT MD Ot I34. 0 NONRHEUMATIC MITRAL (VALVE) INSUFFICIENC 05/21/2019 KAYLEY LAMBERT MD, Ot I48. 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 0 TRICUSPID VALVE DISEASE 06/25/2019 KAYLEY LAMBERT MD Ot 401. 9 HYPERTENSION NOS 06/25/2019 KAYLEY LAMBERT MD Ot 414. 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 NOS TYPE VESSEL, NATIV 06/25/2019 KAYLEY LAMBERT MD Ot 429. 3 CARDIOMEGALY 06/25/2019 KAYLEY LAMBERT MD Ot 272. 0 PURE HYPERCHOLESTEROLEM 06/25/2019 KAYLEY LAMBERT MD Ot 401. 9 HYPERTENSION NOS 06/25/2019 KAYLEY LAMBERT MD Ot 414. 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 NOS TYPE VESSEL, NATIV 06/25/2019 KAYLEY LAMBERT MD Ot 427. 69 PREMATURE BEATS NEC 06/25/2019 GÉNESIS MIRAMONTES DO Ot 305. 1 TOBACCO USE DISORDER 06/25/2019 GÉNESIS MIRAMONTES DO Ot 780. 54 HYPERSOMNIA, UNSPECIFIED 06/25/2019 GÉNESIS MIRAMONTES DO Ot 786. 09 RESPIRATORY ABNORM NEC 06/25/2019 Ot 486 PNEUMO PETER, ORGANISM NOS 06/25/2019 Ot 780.60 FEV ER, UNSPECIFIED 06/25/2019 Ot 786.2 COUGH 06/25/2019 LINDSAY SIMMS Ot F17.200 NICOTINE DEPENDENCE, UNSPECIFIED, UNCOMP 06/25/2019 LINDSAY SIMMS Ot Z08 ENCNTR FOR FOLLOW-UP EXAM AFTER TRTMT FO 06/25/2019 LINDSAY SIMMS Ot 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 06/25/2019 LINDSAY SIMMS Ot 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 06/25/2019 LIANA ARIAS Ot E78.0 PURE HYPERCHOLESTEROLEMIA 06/25/2019 LIANA ARIAS Ot I10 ESSENTIAL (PRIMARY) HYPERTENSION 06/25/2019 LIANA ARIAS Ot I25.10 ATHSCL HEART DISEASE OF [place] CORONARY 06/25/2019 LIANA ARIAS Ot 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 06/25/2019 LIANA ARIAS Ot E78.0 PURE HYPERCHOLESTEROLEMIA 06/25/2019 LIANA ARIAS Ot I10 ESSENTIAL (PRIMARY) HYPERTENSION 06/25/2019 LIANA ARIAS Ot I25.10 ATHSCL HEART DISEASE OF [place] CORONARY 06/25/2019 LIANA ARIAS Ot 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 06/25/2019 LINDSAY SIMMS Fausto Ot F17.200 NICOTINE DEPENDENCE, UNSPECIFIED, UNCOMP 06/25/2019 DEMI LINDSAY Lambert Ot Z08 ENCNTR FOR FOLLOW-UP EXAM AFTER TRTMT FO 06/25/2019 DEMI JAROCHOVANDANA Fausto Ot 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 06/25/2019 DEMI LINDSAY Lambert Ot 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 06/25/2019 DEMI JAROCHOVANDANA Fausto Ot F17.210 NICOTINE DEPENDENCE, CIGARETTES, UNCOMPL 06/25/2019 DEMI JAROCHOVANDANA Fausto Ot Z08 ENCNTR FOR FOLLOW-UP EXAM AFTER TRTMT FO 06/25/2019 DEMI JAROCHOVANDANA Fausto Ot Z79.899 OTHER [facility] (CURRENT) DRUG THERAPY 06/25/2019 DEMI LINDSAY Lambert Ot 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 06/25/2019 JNAN YADAV MD, Ot F17.210 NICOTINE DEPENDENCE, CIGARETTES, UNCOMPL 06/25/2019 JANN YADAV MD, Ot M54.6 PAIN IN THORACIC SPINE 06/25/2019 JANN YADAV MD Ot R07.89 OTHER CHEST PAIN 06/25/2019 JANN YADAV MD Ot R07.9 CHEST PAIN, UNSPECIFIED 06/25/2019 JANN YADAV MD Ot R91.1 SOLITARY PULMONARY NODULE 06/25/2019 JANN YADAV MD Ot Z79.02 [facility] (CURRENT) USE OF ANTITHROMBOTI 06/25/2019 JANN YADAV MD, Ot Z79.899 OTHER [facility] (CURRENT) DRUG THERAPY 06/25/2019 JANN YADAV MD Ot Z95.1 PRESENCE OF AORTOCORONARY BYPASS GRAFT 06/25/2019 KAYLEY LAMBERT MD Ot E11. 9 TYPE 2 DIABETES MELLITUS WITHOUT COMPLIC 06/25/2019 KAYLEY LAMBERT MD Ot E78. 2 MIXED HYPERLIPIDEMIA 06/25/2019 KAYLEY LAMBERT MD, Ot I10 ESSENTIAL (PRIMARY) HYPERTENSION 06/25/2019 KAYLEY LAMBERT MD, Ot I25. 10 ATHSCL HEART DISEASE OF [place] CORONARY 06/25/2019 KAYLEY LAMBERT MD Ot R06. 00 DYSPNEA, UNSPECIFIED 06/25/2019 DEAN SHI APRN Ot R06.00 DYSPNEA, UNSPECIFIED 06/25/2019 DEAN SHI RAISE DRILLER Ot R91.1 SOLITARY PULMONARY NODULE 06/25/2019 DEAN SHI RAISE DRILLER Ot Z72.0 TOBACCO USE 06/25/2019 DEAN SHI RAISE DRILLER Ot R91.1 SOLITARY PULMONARY NODULE 06/25/2019 LINDSAY SIMMS Ot F17.210 NICOTINE DEPENDENCE, CIGARETTES, UNCOMPL 06/25/2019 LINDSAY SIMMS Ot R91.1 SOLITARY PULMONARY NODULE 06/25/2019 LINDSAY SIMMS Ot Z08 ENCNTR FOR FOLLOW-UP EXAM AFTER TRTMT FO 06/25/2019 LINDSAY SIMMS Ot Z79.899 OTHER [facility] (CURRENT) DRUG THERAPY 06/25/2019 LINDSAY SIMMS Ot 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 06/25/2019 LIANA ARIAS Ot E78.2 MIXED HYPERLIPIDEMIA 06/25/2019 LIANA ARIAS Ot I10 ESSENTIAL (PRIMARY) HYPERTENSION 06/25/2019 LIANA ARIAS Ot I25.10 ATHSCL HEART DISEASE OF [place] CORONARY 06/25/2019 LIANA ARIAS Ot 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 06/25/2019 FARRUKH SCOTT MD Ot C6 1 MALIGNANT NEOPLASM OF PROSTATE 06/25/2019 FARRUKH SCOTT MD Ot J44.9 CHRONIC OBSTRUCTIVE PULMONARY DISEASE, U 06/25/2019 FARRUKH SCOTT MD Ot R59.1 GENERALIZED ENLARGED LYMPH NODES 06/25/2019 FARRUKH SCOTT MD Ot R91.8 OTHER NONSPECIFIC ABNORMAL FINDING OF [place] 06/25/2019 FARRUKH SCOTT MD Ot M16.0 BILATERAL PRIMARY OSTEOARTHRITIS OF HIP 06/25/2019 LINDSAY SIMMS Ot I10 ESSENTIAL (PRIMARY) HYPERTENSION 06/25/2019 LINDSAY SIMMS Ot Z85.46 PERSONAL HISTORY OF MALIGNANT NEOPLASM O 06/25/2019 MARVIN GROVE MD Ot M19.0 11 PRIMARY OSTEOARTHRITIS, RIGHT SHOULDER 06/25/2019 MARVIN GROVE MD Ot W19.XXXA UNSPECIFIED FALL, INITIAL ENCOUNTER 06/25/2019 DEAN SHI RAISE DRILLER Ot G47.33 OBSTRUCTIVE SLEEP APNEA (ADULT) (PEDIATR 06/25/2019 WILIAM SHIINE E RAISE DRILLER Ot J44.9 CHRONIC OBSTRUCTIVE PULMONARY DISEASE, U 06/25/2019 JOSE GUADALUPE DEAN E RAISE DRILLER Ot R06.00 DYSPNEA, UNSPECIFIED 06/25/2019 JOSE GUADALUPE DEAN E RAISE DRILLER Ot R91.1 SOLITARY PULMONARY NODULE 06/25/2019 WILIAM SHIINE E RAISE DRILLER Ot Z72.0 TOBACCO USE 06/25/2019 WILIAM SHIINE E RAISE DRILLER Ot J44.9 CHRONIC OBSTRUCTIVE PULMONARY DISEASE, U 06/25/2019 JOSE GUADALUPE DEAN E RAISE DRILLER Ot J84.10 PULMONARY FIBROSIS, UNSPECIFIED 06/25/2019 WILIAM SHIINE E RAISE DRILLER Ot R91.8 OTHER NONSPECIFIC ABNORMAL FINDING OF [place] 06/25/2019 PETRA CASTANEDA, KAYLEY Rivera Ot E78. 2 MIXED HYPERLIPIDEMIA 06/25/2019 PETRA CASTANEDA, KAYLEY J Ot I10 ESSENTIAL (PRIMARY) HYPERTENSION 06/25/2019 PETRA CASTANEDA, KAYLEY J Ot I25. 10 ATHSCL HEART DISEASE OF [place] CORONARY 06/25/2019 PETRA CASTANEDA, KAYLEY J Ot R06. 09 OTHER FORMS OF DYSPNEA 06/25/2019 DEAN SHI E RAISE DRILLER Ot G47.33 OBSTRUCTIVE SLEEP APNEA (ADULT) (PEDIATR 06/25/2019 JOSE GUADALUPE DEAN E RAISE DRILLER Ot I25.10 ATHSCL HEART DISEASE OF [place] CORONARY 06/25/2019 WILIAM SHIINE E RAISE DRILLER Ot I51.7 CARDIOMEGALY 06/25/2019 DEAN SHI RAISE DRILLER Ot J44.9 CHRONIC OBSTRUCTIVE PULMONARY DISEASE, U 06/25/2019 JOSE GUADALUPE DEAN E RAISE DRILLER Ot J84.10 PULMONARY FIBROSIS, UNSPECIFIED 06/25/2019 JOSE GUADALUPE DEAN E RAISE DRILLER Ot R91.8 OTHER NONSPECIFIC ABNORMAL FINDING OF [place] 06/25/2019 DEAN SHI RAISE DRILLER Ot Z72.0 TOBACCO USE 06/25/2019 LINDSAY SIMMS Ot F17.210 NICOTINE DEPENDENCE, CIGARETTES, UNCOMPL 06/25/2019 LINDSAY SIMMS Ot R91.1 SOLITARY PULMONARY NODULE 06/25/2019 LINDSAY SIMMS Ot Z08 ENCNTR FOR FOLLOW-UP EXAM AFTER TRTMT FO 06/25/2019 LINDSAY SIMMS Ot Z79.01 [facility] (CURRENT) USE OF ANTICOAGULANT 06/25/2019 LINDSAY SIMMS Ot Z79.899 OTHER [facility] (CURRENT) DRUG THERAPY 06/25/2019 LINDSAY SIMMS Ot Z85.46 PERSONAL HISTORY OF MALIGNANT NEOPLASM O 06/25/2019 LINDSAY SIMMS Ot 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 06/25/2019 ELOY CASTANEDA, Ulices TOMLIN Ot I48 .0 PAROXYSMAL ATRIAL FIBRILLATION 06/25/2019 Ulices LYONS MD Ot I48 .3 TYPICAL ATRIAL FLUTTER 06/25/2019 KAYLEY LAMBERT MD Ot E78. 2 MIXED HYPERLIPIDEMIA 06/25/2019 KAYLEY LAMBERT MD, Ot I10 ESSENTIAL (PRIMARY) HYPERTENSION 06/25/2019 KAYLEY LAMBERT MD Ot I25. 10 ATHSCL HEART DISEASE OF [place] CORONARY 06/25/2019 KAYLEY LAMBERT MD Ot I34. 0 NONRHEUMATIC MITRAL (VALVE) INSUFFICIENC 06/25/2019 KAYLEY LAMBERT MD, Ot I48. 0 PAROXYSMAL ATRIAL FIBRILLATION 10/18/2019 Ot 486 PNEUMO PETER, ORGANISM NOS 10/18/2019 Ot 780.60 FEV ER, UNSPECIFIED 10/18/2019 Ot 786.2 COUGH 10/18/2019 LINDSAY SIMMS Ot F17.200 NICOTINE DEPENDENCE, UNSPECIFIED, UNCOMP 10/18/2019 LINDSAY SIMMS Ot Z08 ENCNTR FOR FOLLOW-UP EXAM AFTER TRTMT FO 10/18/2019 LINDSAY SIMMS Ot Z79.899 OTHER [facility] (CURRENT) DRUG THERAPY 10/18/2019 LINDSAY SIMMS Ot 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 10/18/2019 LIANA ARIAS Ot E78.0 PURE HYPERCHOLESTEROLEMIA 10/18/2019 LIANA ARIAS Ot I10 ESSENTIAL (PRIMARY) HYPERTENSION 10/18/2019 LIANA ARIAS Ot I25.10 ATHSCL HEART DISEASE OF [place] CORONARY 10/18/2019 LIANA ARIAS Ot 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 10/18/2019 LIANA ARIAS Ot E78.0 PURE HYPERCHOLESTEROLEMIA 10/18/2019 LIANA ARIAS Ot I10 ESSENTIAL (PRIMARY) HYPERTENSION 10/18/2019 LIANA ARIAS Ot I25.10 ATHSCL HEART DISEASE OF [place] CORONARY 10/18/2019 LIANA ARIAS Ot 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 10/18/2019 LINDSAY SIMMS Ot F17.200 NICOTINE DEPENDENCE, UNSPECIFIED, UNCOMP 10/18/2019 LINDSAY SIMMS Ot Z08 ENCNTR FOR FOLLOW-UP EXAM AFTER TRTMT FO 10/18/2019 LINDSAY SIMMS Ot 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 10/18/2019 LINDSAY SIMMS Ot 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 10/18/2019 LINDSAY SIMMS Ot F17.210 NICOTINE DEPENDENCE, CIGARETTES, UNCOMPL 10/18/2019 LINDSAY SIMMS Ot Z08 ENCNTR FOR FOLLOW-UP EXAM AFTER TRTMT FO 10/18/2019 LINDSAY SIMMS Ot Z79.899 OTHER [facility] (CURRENT) DRUG THERAPY 10/18/2019 LINDSAY SIMMS Ot 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 10/18/2019 JANN YADAV MD Ot F17.210 NICOTINE DEPENDENCE, CIGARETTES, UNCOMPL 10/18/2019 JANN YADAV MD Ot M54.6 PAIN IN THORACIC SPINE 10/18/2019 JANN YADAV MD Ot R07.89 OTHER CHEST PAIN 10/18/2019 JANN YADAV MD Ot R07.9 CHEST PAIN, UNSPECIFIED 10/18/2019 JANN YADAV MD Ot R91.1 SOLITARY PULMONARY NODULE 10/18/2019 JANN YADAV MD Ot Z79.02 [employer] (CURRENT) USE OF ANTITHROMBOTI 10/18/2019 JANN YADAV MD Ot Z79.899 OTHER [facility] (CURRENT) DRUG THERAPY 10/18/2019 JANN YADAV MD Ot Z95.1 PRESENCE OF AORTOCORONARY BYPASS GRAFT 10/18/2019 KAYLEY LAMBERT MD Ot E11. 9 TYPE 2 DIABETES MELLITUS WITHOUT COMPLIC 10/18/2019 PETRA CASTANEDA, KAYLEY Rivera Ot E78. 2 MIXED HYPERLIPIDEMIA 10/18/2019 KAYLEY LAMBERT MD Ot I10 ESSENTIAL (PRIMARY) HYPERTENSION 10/18/2019 KAYLEY LAMBERT MD Ot I25. 10 ATHSCL HEART DISEASE OF [place] CORONARY 10/18/2019 KAYLEY LAMBERT MD Ot R06. 00 DYSPNEA, UNSPECIFIED 10/18/2019 JOSE GUADALUPEDEAN APRN Ot R06.00 DYSPNEA, UNSPECIFIED 10/18/2019 JOSE GUADALUPE, DEAN E RAISE DRILLER Ot R91.1 SOLITARY PULMONARY NODULE 10/18/2019 JOSE GUADALUPEDEAN LEO RAISE DRILLER Ot Z72.0 TOBACCO USE 10/18/2019 DEAN SHI RAISE DRILLER Ot R91.1 SOLITARY PULMONARY NODULE 10/18/2019 LINDSAY SIMMS Ot F17.210 NICOTINE DEPENDENCE, CIGARETTES, UNCOMPL 10/18/2019 LINDSAY SIMMS Ot R91.1 SOLITARY PULMONARY NODULE 10/18/2019 LINDSAY SIMMS Ot Z08 ENCNTR FOR FOLLOW-UP EXAM AFTER TRTMT FO 10/18/2019 LNIDSAY SIMMS Ot Z79.899 OTHER [facility] (CURRENT) DRUG THERAPY 10/18/2019 LINDSAY SIMMS Ot 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 10/18/2019 LIANA ARIAS Ot E78.2 MIXED HYPERLIPIDEMIA 10/18/2019 LIANA ARIAS Ot I10 ESSENTIAL (PRIMARY) HYPERTENSION 10/18/2019 LIANA ARIAS Ot I25.10 ATHSCL HEART DISEASE OF [place] CORONARY 10/18/2019 LIANA ARIAS Ot 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 10/18/2019 FARRUKH SCOTT MD Ot C6 1 MALIGNANT NEOPLASM OF PROSTATE 10/18/2019 FARRUKH SCOTT MD Ot J44.9 CHRONIC OBSTRUCTIVE PULMONARY DISEASE, U 10/18/2019 FARRUKH SCOTT MD Ot R59.1 GENERALIZED ENLARGED LYMPH NODES 10/18/2019 FARRUKH SCOTT MD Ot R91.8 OTHER NONSPECIFIC ABNORMAL FINDING OF [place] 10/18/2019 FARRUKH SCOTT MD Ot M16.0 BILATERAL PRIMARY OSTEOARTHRITIS OF HIP 10/18/2019 LINDSAY SIMMS Ot I10 ESSENTIAL (PRIMARY) HYPERTENSION 10/18/2019 LINDSAY SIMMS Ot Z85.46 PERSONAL HISTORY OF MALIGNANT NEOPLASM O 10/18/2019 MAINE CASTANEDA, MARVIN Page Ot M19.0 11 PRIMARY OSTEOARTHRITIS, RIGHT SHOULDER 10/18/2019 MARVIN GROVE MD Ot W19.XXXA UNSPECIFIED FALL, INITIAL ENCOUNTER 10/18/2019 DEAN SHI RAISE DRILLER Ot G47.33 OBSTRUCTIVE SLEEP APNEA (ADULT) (PEDIATR 10/18/2019 WILIAM SHIINE E RAISE DRILLER Ot J44.9 CHRONIC OBSTRUCTIVE PULMONARY DISEASE, U 10/18/2019 WILIAM SHIINE E RAISE DRILLER Ot R06.00 DYSPNEA, UNSPECIFIED 10/18/2019 WILIAM SHIINE E RAISE DRILLER Ot R91.1 SOLITARY PULMONARY NODULE 10/18/2019 DEAN SHI RAISE DRILLER Ot Z72.0 TOBACCO USE 10/18/2019 DEAN SHI RAISE DRILLER Ot J44.9 CHRONIC OBSTRUCTIVE PULMONARY DISEASE, U 10/18/2019 WILIAM SHIINE Lai RAISE DRILLER Ot J84.10 PULMONARY FIBROSIS, UNSPECIFIED 10/18/2019 WILIAM SHIINE E RAISE DRILLER Ot R91.8 OTHER NONSPECIFIC ABNORMAL FINDING OF [place] 10/18/2019 PETRA CASTANEDA, KAYLEY Rivera Ot E78. 2 MIXED HYPERLIPIDEMIA 10/18/2019 KAYLEY LAMBERT MD Ot I10 ESSENTIAL (PRIMARY) HYPERTENSION 10/18/2019 KAYLEY LAMBERT MD Ot I25. 10 ATHSCL HEART DISEASE OF [place] CORONARY 10/18/2019 KAYLEY LAMBERT MD Ot R06. 09 OTHER FORMS OF DYSPNEA 10/18/2019 DEAN SHI RAISE DRILLER Ot G47.33 OBSTRUCTIVE SLEEP APNEA (ADULT) (PEDIATR 10/18/2019 WILIAM SHIINE E RAISE DRILLER Ot I25.10 ATHSCL HEART DISEASE OF [place] CORONARY 10/18/2019 DEAN SHI RAISE DRILLER Ot I51.7 CARDIOMEGALY 10/18/2019 DEAN SHI RAISE DRILLER Ot J44.9 CHRONIC OBSTRUCTIVE PULMONARY DISEASE, U 10/18/2019 JOSE GUADALUPE DEAN E RAISE DRILLER Ot J84.10 PULMONARY FIBROSIS, UNSPECIFIED 10/18/2019 JOSE GUADALUPE DEAN E RAISE DRILLER Ot R91.8 OTHER NONSPECIFIC ABNORMAL FINDING OF [place] 10/18/2019 DEAN SHI DEBBIE Ot Z72.0 TOBACCO USE 10/18/2019 LINDSAY SIMMS Fausto Ot F17.210 NICOTINE DEPENDENCE, CIGARETTES, UNCOMPL 10/18/2019 DEMI JAROCHOVANDANA Fausto Ot R91.1 SOLITARY PULMONARY NODULE 10/18/2019 DEMILINDSAY Ot Z08 ENCNTR FOR FOLLOW-UP EXAM AFTER TRTMT FO 10/18/2019 LINDSAY SIMMS Fausto Ot Z79.01 [facility] (CURRENT) USE OF ANTICOAGULANT 10/18/2019 DEMI LINDSAY Lambert Ot Z79.899 OTHER [facility] (CURRENT) DRUG THERAPY 10/18/2019 DEMI LINDSAY Lambert Ot Z85.46 PERSONAL HISTORY OF MALIGNANT NEOPLASM O 10/18/2019 DEMILINDSAY Ot 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 2 MIXED HYPERLIPIDEMIA 10/18/2019 KAYLEY LAMBERT MD Ot I10 ESSENTIAL (PRIMARY) HYPERTENSION 10/18/2019 KAYLEY LAMBERT MD, Ot I25. 10 ATHSCL HEART DISEASE OF [place] CORONARY 10/18/2019 KAYLEY LAMBERT MD Ot I34. 0 NONRHEUMATIC MITRAL (VALVE) INSUFFICIENC 10/18/2019 KAYLEY LAMBERT MD, Ot I48. 0 PAROXYSMAL ATRIAL FIBRILLATION 10/19/2019 Ulices LYONS MD, Ot Z01.812 ENCOUNTER FOR PREPROCEDURAL LABORATORY E 10/19/2019 Ulices LYONS MD, Ot Z20.828 CONTACT W AND EXPOSURE TO OTH VIRAL COMM 10/20/2019 Ulices LYONS MD, Ot Z01.812 ENCOUNTER FOR PREPROCEDURAL LABORATORY E 10/20/2019 Ulices LYONS MD, Ot Z20.828 CONTACT W AND EXPOSURE TO OTH VIRAL COMM Procedures Code Description Performed By Per formed On [id number] RE STORATION OF CARDIAC RHYTHM, SINGLE 02/16/2018 [id number] UL TRASONOGRAPHY OF RIGHT AND LEFT HEART, 02/16/2018 Results Test Result Range Complete urinalysis with reflex to cultu re - 04/17/16 08:15 Urine color determination YELLOW NRG Urine clarity determination CLEAR NR G Urine pH measurement by test strip 5 5-9 Specific gravity of urine by test strip 1.020 1.016-1.022 Urine protein assay by test strip, semi-quantitative NEGATIVE NEGATIVE Urine glucose detection by automated test strip NE GATIVE NEGATIVE Erythrocytes detection in urine sediment by light micr oscopy NEGATIVE NEGATIVE Urine ketones detection by automated test strip NE GATIVE NEGATIVE Urine nitrite detection by test strip NEGATIVE NEGATIVE Urine total bilirubin detection by test strip NEGA TIVE NEGATIVE Urine urobilinogen measurement by automated test strip (mass/volume) NORMAL NORMAL Urine leukocyte esterase detection by dipstick NEG ATIVE NEGATIVE Automated urine sediment erythrocyte cou nt by microscopy (number/high power field) NONE NRG Automated urine sediment leukocyte count by microscopy (number/high power field) NONE NRG Bacteria detection in urine sediment by light microsco py NEGATIVE NRG Squamous epithelial cells detection in u rine sediment by light microscopy RARE NRG Crystals detection in urine sediment by light microsco py NONE NRG Casts detection in urine sediment by light microscopy NONE NRG Mucus detection in urine sediment by light microscopy NEGATIVE NRG Complete urinalysis with reflex to culture NO NRG Automated blood complete blood count (he mogram) panel - 04/17/16 08:30 Blood leukocytes automated count (number/volume) 8.0 10*3/uL 4.3-11.0 Blood erythrocytes automated count (number/volume) 4.50 10*6/uL 4.35-5.85 Venous blood hemoglobin measurement (mass/volume) 15.2 g/dL 13.3-17.7 Blood hematocrit (volume fraction) 45 % 40-54 Automated erythrocyte mean corpuscular volume 99 [ foz_us] 80-99 Automated erythrocyte mean corpuscular h emoglobin (mass per erythrocyte) 34 pg 25-34 Automated erythrocyte mean corpuscular h emoglobin concentration measurement (mass/volume) 34 g/dL 32-36 Automated erythrocyte distribution width ratio 14. 1 % 10.0- 14.5 Automated blood platelet count (count/volume) 169 10*3/uL 130-400 Automated blood platelet mean volume measurement 9.4 [foz_us] 7.4-10.4 PT panel in platelet poor plasma by coag ulation assay - 04/17/16 08:30 Prothrombin time (PT) in platelet poor plasma by coagu lation assay 12.8 s 12.2-14.7 INR in platelet poor plasma or blood by coagulation as say 1.0 0.8-1.4 Activated partial thromboplastin time (a PTT) in platelet poor plasma bycoagulation assay - 04/17/16 08:30 Activated partial thromboplastin time (a PTT) in platelet poor plasma bycoagulation assay 26 s 24-35 Comprehensive metabolic panel - 04/17/16 08:30 Serum or plasma sodium measurement (moles/volume) 140 mmol/L 135-145 Serum or plasma potassium measurement (moles/volume) 4.2 mmol/L 3.6-5.0 Serum or plasma chloride measurement (moles/volume) 108 mmol/L 98-107 Carbon dioxide 23 mmol/L 21-32 Serum or plasma anion gap determination (moles/volume) 9 mmol/L 5-14 Serum or plasma urea nitrogen measurement (mass/volume ) 13 mg/dL 7-18 Serum or plasma creatinine measurement (mass/volume) 1.10 mg/dL 0.60-1.30 Serum or plasma urea nitrogen/creatinine mass ratio 12 NRG Serum or plasma creatinine measurement w ith calculation of estimated glomerular filtration rate > NRG Serum or plasma glucose measurement (mass/volume) 97 mg/dL 70-105 Serum or plasma calcium measurement (mass/volume) 9.6 mg/dL 8.5-10.1 Serum or plasma total bilirubin measurement (mass/volu me) 0.7 mg/dL 0.1-1.0 Serum or plasma alkaline phosphatase karen surement (enzymatic activity/volume) 113 U/L 40-136 Serum or plasma aspartate aminotransfera se measurement (enzymatic activity/volume) 26 U/L 5-34 Serum or plasma alanine aminotransferase measurement (enzymatic activity/volume) 23 U/L 0-55 Serum or plasma protein measurement (mass/volume) 7.1 g/dL 6.4-8.2 Serum or plasma albumin measurement (mass/volume) 4.5 g/dL 3.2-4.5 Lipid 1996 panel - 04/17/16 08:30 Serum or plasma triglyceride measurement (mass/volume) 144 mg/dL <150 Serum or plasma cholesterol measurement (mass/volume) 148 mg/dL < 200 Serum or plasma cholesterol in HDL measurement (mass/v olume) 33 mg/dL 40-60 Cholesterol in LDL [mass/volume] in serum or plasma by direct assay 85 mg/dL 1-129 Serum or plasma cholesterol in VLDL measurement (mass/ volume) 29 mg/dL 5-40 Methicillin resistant Staphylococcus aur eus (MRSA) screening culture - 04/17/16 08:30 Methicillin resistant Staphylococcus aureus (MRSA) scr eening culture NEG NRG Automated blood complete blood count (he mogram) panel - 04/19/16 04:06 Blood leukocytes automated count (number/volume) 7.2 10*3/uL 4.3-11.0 Blood erythrocytes automated count (number/volume) 3.67 10*6/uL 4.35-5.85 Venous blood hemoglobin measurement (mass/volume) 12.3 g/dL 13.3-17.7 Blood hematocrit (volume fraction) 37 % 40-54 Automated erythrocyte mean corpuscular volume 100 [foz_us] 80-99 Automated erythrocyte mean corpuscular h emoglobin (mass per erythrocyte) 34 pg 25-34 Automated erythrocyte mean corpuscular h emoglobin concentration measurement (mass/volume) 34 g/dL 32-36 Automated erythrocyte distribution width ratio 13. 7 % 10.0- 14.5 Automated blood platelet count (count/volume) 143 10*3/uL 130-400 Automated blood platelet mean volume measurement 9.6 [foz_us] 7.4-10.4 Whole blood basic metabolic panel - 09/28 04:06 Serum or plasma sodium measurement (moles/volume) 138 mmol/L 135-145 Serum or plasma potassium measurement (moles/volume) 3.9 mmol/L 3.6-5.0 Serum or plasma chloride measurement (moles/volume) 108 mmol/L 98-107 Carbon dioxide 23 mmol/L 21-32 Serum or plasma anion gap determination (moles/volume) 7 mmol/L 5-14 Serum or plasma urea nitrogen measurement (mass/volume ) 13 mg/dL 7-18 Serum or plasma creatinine measurement (mass/volume) 1.05 mg/dL 0.60-1.30 Serum or plasma urea nitrogen/creatinine mass ratio 12 NRG Serum or plasma creatinine measurement w ith calculation of estimated glomerular filtration rate > NRG Serum or plasma glucose measurement (mass/volume) 121 mg/dL 70-105 Serum or plasma calcium measurement (mass/volume) 8.3 mg/dL 8.5-10.1 Complete blood count (CBC) with automate d white blood cell (WBC) differential - 07/18/16 11:10 Blood leukocytes automated count (number/volume) 9.8 10*3/uL 4.3-11.0 Blood erythrocytes automated count (number/volume) 4.22 10*6/uL 4.35-5.85 Venous blood hemoglobin measurement (mass/volume) 14.3 g/dL 13.3-17.7 Blood hematocrit (volume fraction) 42 % 40-54 Automated erythrocyte mean corpuscular volume 99 [ foz_us] 80-99 Automated erythrocyte mean corpuscular h emoglobin (mass per erythrocyte) 34 pg 25-34 Automated erythrocyte mean corpuscular h emoglobin concentration measurement (mass/volume) 34 g/dL 32-36 Automated erythrocyte distribution width ratio 13. 7 % 10.0- 14.5 Automated blood platelet count (count/volume) 195 10*3/uL [...] 10*3 1.0-4.0 Blood monocytes automated count (number/volume) 1. 1 10*3 0.0-1.0 Automated eosinophil count 0.2 10*3/uL 0 .0-0.3 Automated blood basophil count (count/volume) 0.0 10*3/uL 0.0-0.1 PT panel in platelet poor plasma by coag ulation assay - 07/18/16 11:10 Prothrombin time (PT) in platelet poor plasma by coagu lation assay 13.8 s 12.2-14.7 INR in platelet poor plasma or blood by coagulation as say 1.1 0.8-1.4 Activated partial thromboplastin time (a PTT) in platelet poor plasma bycoagulation assay - 07/18/16 11:10 Activated partial thromboplastin time (a PTT) in platelet poor plasma bycoagulation assay 27 s 24-35 Comprehensive metabolic panel - 07/18/16 11:10 Serum or plasma sodium measurement (moles/volume) 139 mmol/L 135-145 Serum or plasma potassium measurement (moles/volume) 4.4 mmol/L 3.6-5.0 Serum or plasma chloride measurement (moles/volume) 107 mmol/L 98-107 Carbon dioxide 23 mmol/L 21-32 Serum or plasma anion gap determination (moles/volume) 9 mmol/L 5-14 Serum or plasma urea nitrogen measurement (mass/volume ) 11 mg/dL 7-18 Serum or plasma creatinine measurement (mass/volume) 1.18 mg/dL 0.60-1.30 Serum or plasma urea nitrogen/creatinine mass ratio 9 NRG Serum or plasma creatinine measurement w ith calculation of estimated glomerular filtration rate 60 NRG Serum or plasma glucose measurement (mass/volume) 127 mg/dL 70-105 Serum or plasma calcium measurement (mass/volume) 9.5 mg/dL 8.5-10.1 Serum or plasma total bilirubin measurement (mass/volu me) 0.7 mg/dL 0.1-1.0 Serum or plasma alkaline phosphatase karen surement (enzymatic activity/volume) 116 U/L 40-136 Serum or plasma aspartate aminotransfera se measurement (enzymatic activity/volume) 18 U/L 5-34 Serum or plasma alanine aminotransferase measurement (enzymatic activity/volume) 13 U/L 0-55 Serum or plasma protein measurement (mass/volume) 6.8 g/dL 6.4-8.2 Serum or plasma albumin measurement (mass/volume) 4.1 g/dL 3.2-4.5 Magnesium - 07/18/16 11:10 Magnesium 2.0 mg/dL 1.8-2.4 Serum or plasma troponin i.cardiac measu rement (mass/volume) - 07/18/16 11:10 Serum or plasma troponin i.cardiac measurement (mass/v olume) < ng/mL <0.30 Myoglobin, serum - 07/18/16 11:10 Myoglobin, serum 75.4 ng/mL 10.0-92.0 Fibrin D-dimer FEU measurement in platel et poor plasma (mass/volume) - 07/18/16 11:10 Fibrin D-dimer FEU measurement in platelet poor plasma (mass/volume) 0.98 ug/mL 0.00-0.49 Serum or plasma troponin i.cardiac measu rement (mass/volume) - 07/18/16 15:47 Serum or plasma troponin i.cardiac measurement (mass/v olume) < ng/mL <0.30 [id number] - 08/11/17 10:32 Serum or plasma urea nitrogen measurement (mass/volume ) 16 mg/dL 7-18 Serum or plasma creatinine measurement (mass/volume) 1.18 mg/dL 0.60-1.30 Serum or plasma urea nitrogen/creatinine mass ratio 14 NRG Serum or plasma creatinine measurement w ith calculation of estimated glomerular filtration rate 60 NRG Complete blood count (CBC) with automate d white blood cell (WBC) differential - 02/13/18 11:58 Blood leukocytes automated count (number/volume) 8.1 10*3/uL 4.3-11.0 Blood erythrocytes automated count (number/volume) 4.18 10*6/uL 4.35-5.85 Venous blood hemoglobin measurement (mass/volume) 14.5 g/dL 13.3-17.7 Blood hematocrit (volume fraction) 42 % 40-54 Automated erythrocyte mean corpuscular volume 101 [foz_us] 80-99 Automated erythrocyte mean corpuscular h emoglobin (mass per erythrocyte) 35 pg 25-34 Automated erythrocyte mean corpuscular h emoglobin concentration measurement (mass/volume) 34 g/dL 32-36 Automated erythrocyte distribution width ratio 13. 7 % 10.0- 14.5 Automated blood platelet count (count/volume) 209 10*3/uL [...] 10*3 1.0-4.0 Blood monocytes automated count (number/volume) 0. 9 10*3 0.0-1.0 Automated eosinophil count 0.3 10*3/uL 0 .0-0.3 Automated blood basophil count (count/volume) 0.0 10*3/uL 0.0-0.1 PT panel in platelet poor plasma by coag ulation assay - 02/13/18 11:58 Prothrombin time (PT) in platelet poor plasma by coagu lation assay 13.4 s 12.2-14.7 INR in platelet poor plasma or blood by coagulation as say 1.0 0.8-1.4 Activated partial thromboplastin time (a PTT) in platelet poor plasma bycoagulation assay - 02/13/18 11:58 Activated partial thromboplastin time (a PTT) in platelet poor plasma bycoagulation assay 26 s 24-35 Comprehensive metabolic panel - 02/13/18 11:58 Serum or plasma sodium measurement (moles/volume) 136 mmol/L 135-145 Serum or plasma potassium measurement (moles/volume) 4.6 mmol/L 3.6-5.0 Serum or plasma chloride measurement (moles/volume) 105 mmol/L 98-107 Carbon dioxide 20 mmol/L 21-32 Serum or plasma anion gap determination (moles/volume) 11 mmol/L 5-14 Serum or plasma urea nitrogen measurement (mass/volume ) 22 mg/dL 7-18 Serum or plasma creatinine measurement (mass/volume) 1.29 mg/dL 0.60-1.30 Serum or plasma urea nitrogen/creatinine mass ratio 17 NRG Serum or plasma creatinine measurement w ith calculation of estimated glomerular filtration rate 54 NRG Serum or plasma glucose measurement (mass/volume) 129 mg/dL 70-105 Serum or plasma calcium measurement (mass/volume) 9.7 mg/dL 8.5-10.1 Serum or plasma total bilirubin measurement (mass/volu me) 0.8 mg/dL 0.1-1.0 Serum or plasma alkaline phosphatase karen surement (enzymatic activity/volume) 119 U/L 40-136 Serum or plasma aspartate aminotransfera se measurement (enzymatic activity/volume) 22 U/L 5-34 Serum or plasma alanine aminotransferase measurement (enzymatic activity/volume) 14 U/L 0-55 Serum or plasma protein measurement (mass/volume) 7.2 g/dL 6.4-8.2 Serum or plasma albumin measurement (mass/volume) 4.5 g/dL 3.2-4.5 CALCIUM CORRECTED 9.3 mg/dL 8.5-10.1 Magnesium - 02/13/18 11:58 Magnesium 2.3 mg/dL 1.8-2.4 Serum or plasma troponin i.cardiac measu rement (mass/volume) - 02/13/18 11:58 Serum or plasma troponin i.cardiac measurement (mass/v olume) 1.06 ng/mL <0.30 Myoglobin, serum - 02/13/18 11:58 Myoglobin, serum 72.3 ng/mL 10.0-92.0 THYROID STIMULATING HORMONE - 02/13/18 1 1:58 THYROID STIMULATING HORMONE 1.89 u[iU]/mL 0.35-4.94 Serum or plasma thyroxine (T4) free yung urement (mass/volume) - 02/13/18 11:58 Serum or plasma thyroxine (T4) free measurement (mass/ volume) 0.97 ng/dL 0.70-1.48 Serum or plasma troponin i.cardiac measu rement (mass/volume) - 02/13/18 17:52 Serum or plasma troponin i.cardiac measurement (mass/v olume) 1.21 ng/mL <0.30 Complete blood count (CBC) with automate d white blood cell (WBC) differential - 02/14/18 03:44 Blood leukocytes automated count (number/volume) 8.3 10*3/uL 4.3-11.0 Blood erythrocytes automated count (number/volume) 3.86 10*6/uL 4.35-5.85 Venous blood hemoglobin measurement (mass/volume) 13.6 g/dL 13.3-17.7 Blood hematocrit (volume fraction) 40 % 40-54 Automated erythrocyte mean corpuscular volume 103 [foz_us] 80-99 Automated erythrocyte mean corpuscular h emoglobin (mass per erythrocyte) 35 pg 25-34 Automated erythrocyte mean corpuscular h emoglobin concentration measurement (mass/volume) 34 g/dL 32-36 Automated erythrocyte distribution width ratio 14. 0 % 10.0- 14.5 Automated blood platelet count (count/volume) 192 10*3/uL [...] 10*3 1.0-4.0 Blood monocytes automated count (number/volume) 0. 9 10*3 0.0-1.0 Automated eosinophil count 0.4 10*3/uL 0 .0-0.3 Automated blood basophil count (count/volume) 0.0 10*3/uL 0.0-0.1 Whole blood basic metabolic panel - 06/29 03:44 Serum or plasma sodium measurement (moles/volume) 137 mmol/L 135-145 Serum or plasma potassium measurement (moles/volume) 4.7 mmol/L 3.6-5.0 Serum or plasma chloride measurement (moles/volume) 108 mmol/L 98-107 Carbon dioxide 20 mmol/L 21-32 Serum or plasma anion gap determination (moles/volume) 9 mmol/L 5-14 Serum or plasma urea nitrogen measurement (mass/volume ) 19 mg/dL 7-18 Serum or plasma creatinine measurement (mass/volume) 1.23 mg/dL 0.60-1.30 Serum or plasma urea nitrogen/creatinine mass ratio 15 NRG Serum or plasma creatinine measurement w ith calculation of estimated glomerular filtration rate 57 NRG Serum or plasma glucose measurement (mass/volume) 103 mg/dL 70-105 Serum or plasma calcium measurement (mass/volume) 9.0 mg/dL 8.5-10.1 Serum or plasma phosphate measurement (m ass/volume) - 02/14/18 03:44 Serum or plasma phosphate measurement (mass/volume) 3.0 mg/dL 2.3-4.7 Magnesium - 02/14/18 03:44 Magnesium 2.1 mg/dL 1.8-2.4 Lipid 1996 panel - 02/14/18 03:44 Serum or plasma triglyceride measurement (mass/volume) 165 mg/dL <150 Serum or plasma cholesterol measurement (mass/volume) 116 mg/dL < 200 Serum or plasma cholesterol in HDL measurement (mass/v olume) 28 mg/dL 40-60 Cholesterol in LDL [mass/volume] in serum or plasma by direct assay 61 mg/dL 1-129 Serum or plasma cholesterol in VLDL measurement (mass/ volume) 33 mg/dL 5-40 Complete blood count (CBC) with automate d white blood cell (WBC) differential - 02/15/18 03:30 Blood leukocytes automated count (number/volume) 8.1 10*3/uL 4.3-11.0 Blood erythrocytes automated count (number/volume) 3.97 10*6/uL 4.35-5.85 Venous blood hemoglobin measurement (mass/volume) 14.0 g/dL 13.3-17.7 Blood hematocrit (volume fraction) 40 % 40-54 Automated erythrocyte mean corpuscular volume 102 [foz_us] 80-99 Automated erythrocyte mean corpuscular h emoglobin (mass per erythrocyte) 35 pg 25-34 Automated erythrocyte mean corpuscular h emoglobin concentration measurement (mass/volume) 35 g/dL 32-36 Automated erythrocyte distribution width ratio 13. 6 % 10.0- 14.5 Automated blood platelet count (count/volume) 187 10*3/uL [...] 10*3 1.0-4.0 Blood monocytes automated count (number/volume) 0. 9 10*3 0.0-1.0 Automated eosinophil count 0.3 10*3/uL 0 .0-0.3 Automated blood basophil count (count/volume) 0.0 10*3/uL 0.0-0.1 Whole blood basic metabolic panel - 07/30 03:30 Serum or plasma sodium measurement (moles/volume) 139 mmol/L 135-145 Serum or plasma potassium measurement (moles/volume) 4.2 mmol/L 3.6-5.0 Serum or plasma chloride measurement (moles/volume) 109 mmol/L 98-107 Carbon dioxide 19 mmol/L 21-32 Serum or plasma anion gap determination (moles/volume) 11 mmol/L 5-14 Serum or plasma urea nitrogen measurement (mass/volume ) 14 mg/dL 7-18 Serum or plasma creatinine measurement (mass/volume) 1.03 mg/dL 0.60-1.30 Serum or plasma urea nitrogen/creatinine mass ratio 14 NRG Serum or plasma creatinine measurement w ith calculation of estimated glomerular filtration rate > NRG Serum or plasma glucose measurement (mass/volume) 104 mg/dL 70-105 Serum or plasma calcium measurement (mass/volume) 9.6 mg/dL 8.5-10.1 Serum or plasma phosphate measurement (m ass/volume) - 02/15/18 03:30 Serum or plasma phosphate measurement (mass/volume) 3.0 mg/dL 2.3-4.7 Magnesium - 02/15/18 03:30 Magnesium 2.0 mg/dL 1.8-2.4 Complete blood count (CBC) with automate d white blood cell (WBC) differential - 02/16/18 03:23 Blood leukocytes automated count (number/volume) 9.5 10*3/uL 4.3-11.0 Blood erythrocytes automated count (number/volume) 3.87 10*6/uL 4.35-5.85 Venous blood hemoglobin measurement (mass/volume) 13.9 g/dL 13.3-17.7 Blood hematocrit (volume fraction) 39 % 40-54 Automated erythrocyte mean corpuscular volume 102 [foz_us] 80-99 Automated erythrocyte mean corpuscular h emoglobin (mass per erythrocyte) 36 pg 25-34 Automated erythrocyte mean corpuscular h emoglobin concentration measurement (mass/volume) 35 g/dL 32-36 Automated erythrocyte distribution width ratio 13. 6 % 10.0- 14.5 Automated blood platelet count (count/volume) 199 10*3/uL [...] 10*3 1.0-4.0 Blood monocytes automated count (number/volume) 1. 0 10*3 0.0-1.0 Automated eosinophil count 0.5 10*3/uL 0 .0-0.3 Automated blood basophil count (count/volume) 0.1 10*3/uL 0.0-0.1 Whole blood basic metabolic panel - 08/29 03:23 Serum or plasma sodium measurement (moles/volume) 139 mmol/L 135-145 Serum or plasma potassium measurement (moles/volume) 4.2 mmol/L 3.6-5.0 Serum or plasma chloride measurement (moles/volume) 108 mmol/L 98-107 Carbon dioxide 21 mmol/L 21-32 Serum or plasma anion gap determination (moles/volume) 10 mmol/L 5-14 Serum or plasma urea nitrogen measurement (mass/volume ) 16 mg/dL 7-18 Serum or plasma creatinine measurement (mass/volume) 1.07 mg/dL 0.60-1.30 Serum or plasma urea nitrogen/creatinine mass ratio 15 NRG Serum or plasma creatinine measurement w ith calculation of estimated glomerular filtration rate > NRG Serum or plasma glucose measurement (mass/volume) 104 mg/dL 70-105 Serum or plasma calcium measurement (mass/volume) 9.5 mg/dL 8.5-10.1 Serum or plasma phosphate measurement (m ass/volume) - 02/16/18 03:23 Serum or plasma phosphate measurement (mass/volume) 3.3 mg/dL 2.3-4.7 Magnesium - 02/16/18 03:23 Magnesium 1.9 mg/dL 1.8-2.4 Complete blood count (CBC) with automate d white blood cell (WBC) differential - 02/17/18 03:55 Blood leukocytes automated count (number/volume) 12.9 10*3/uL 4.3-11.0 Blood erythrocytes automated count (number/volume) 4.07 10*6/uL 4.35-5.85 Venous blood hemoglobin measurement (mass/volume) 14.2 g/dL 13.3-17.7 Blood hematocrit (volume fraction) 41 % 40-54 Automated erythrocyte mean corpuscular volume 101 [foz_us] 80-99 Automated erythrocyte mean corpuscular h emoglobin (mass per erythrocyte) 35 pg 25-34 Automated erythrocyte mean corpuscular h emoglobin concentration measurement (mass/volume) 35 g/dL 32-36 Automated erythrocyte distribution width ratio 13. 5 % 10.0- 14.5 Automated blood platelet count (count/volume) 198 10*3/uL [...] 10*3 1.0-4.0 Blood monocytes automated count (number/volume) 1. 1 10*3 0.0-1.0 Automated eosinophil count 0.3 10*3/uL 0 .0-0.3 Automated blood basophil count (count/volume) 0.0 10*3/uL 0.0-0.1 Whole blood basic metabolic panel - 11/0 09/29 03:55 Serum or plasma sodium measurement (moles/volume) 138 mmol/L 135-145 Serum or plasma potassium measurement (moles/volume) 4.2 mmol/L 3.6-5.0 Serum or plasma chloride measurement (moles/volume) 106 mmol/L 98-107 Carbon dioxide 20 mmol/L 21-32 Serum or plasma anion gap determination (moles/volume) 12 mmol/L 5-14 Serum or plasma urea nitrogen measurement (mass/volume ) 13 mg/dL 7-18 Serum or plasma creatinine measurement (mass/volume) 1.10 mg/dL 0.60-1.30 Serum or plasma urea nitrogen/creatinine mass ratio 12 NRG Serum or plasma creatinine measurement w ith calculation of estimated glomerular filtration rate > NRG Serum or plasma glucose measurement (mass/volume) 107 mg/dL 70-105 Serum or plasma calcium measurement (mass/volume) 9.4 mg/dL 8.5-10.1 Serum or plasma phosphate measurement (m ass/volume) - 02/17/18 03:55 Serum or plasma phosphate measurement (mass/volume) 3.0 mg/dL 2.3-4.7 Magnesium - 02/17/18 03:55 Magnesium 1.9 mg/dL 1.8-2.4 Automated blood complete blood count (he mogram) panel - 03/16/18 09:27 Blood leukocytes automated count (number/volume) 8.8 10*3/uL 4.3-11.0 Blood erythrocytes automated count (number/volume) 4.27 10*6/uL 4.35-5.85 Venous blood hemoglobin measurement (mass/volume) 14.8 g/dL 13.3-17.7 Blood hematocrit (volume fraction) 44 % 40-54 Automated erythrocyte mean corpuscular volume 102 [foz_us] 80-99 Automated erythrocyte mean corpuscular h emoglobin (mass per erythrocyte) 35 pg 25-34 Automated erythrocyte mean corpuscular h emoglobin concentration measurement (mass/volume) 34 g/dL 32-36 Automated erythrocyte distribution width ratio 13. 8 % 10.0- 14.5 Automated blood platelet count (count/volume) 173 10*3/uL [...] 5-14 Serum or plasma urea nitrogen measurement (mass/volume ) 16 mg/dL 7-18 Serum or plasma creatinine measurement (mass/volume) 1.33 mg/dL 0.60-1.30 Serum or plasma urea nitrogen/creatinine mass ratio 12 NRG Serum or plasma creatinine measurement w ith calculation of estimated glomerular filtration rate 52 NRG Serum or plasma glucose measurement (mass/volume) 95 mg/dL 70-105 Serum or plasma calcium measurement (mass/volume) 9.7 mg/dL 8.5-10.1 Serum or plasma total bilirubin measurement (mass/volu me) 0.9 mg/dL 0.1-1.0 Serum or plasma alkaline phosphatase karen surement (enzymatic activity/volume) 112 U/L 40-136 Serum or plasma aspartate aminotransfera se measurement (enzymatic activity/volume) 23 U/L 5-34 Serum or plasma alanine aminotransferase measurement (enzymatic activity/volume) 22 U/L 0-55 Serum or plasma protein measurement (mass/volume) 7.0 g/dL 6.4-8.2 Serum or plasma albumin measurement (mass/volume) 4.5 g/dL 3.2-4.5 CALCIUM CORRECTED 9.3 mg/dL 8.5-10.1 PT panel in platelet poor plasma by coag ulation assay - 03/16/18 09:27 Prothrombin time (PT) in platelet poor plasma by coagu lation assay 16.5 s 12.2-14.7 INR in platelet poor plasma or blood by coagulation as say 1.3 0.8-1.4 Activated partial thromboplastin time (a PTT) in platelet poor plasma bycoagulation assay - 03/16/18 09:27 Activated partial thromboplastin time (a PTT) in platelet poor plasma bycoagulation assay 31 s 24-35 Methicillin resistant Staphylococcus aur eus (MRSA) screening culture - 03/16/18 09:27 Methicillin resistant Staphylococcus aureus (MRSA) scr eening culture NEG NRG Automated blood complete blood count (he mogram) panel - 03/17/18 06:27 Blood leukocytes automated count (number/volume) 12.8 10*3/uL 4.3-11.0 Blood erythrocytes automated count (number/volume) 3.60 10*6/uL 4.35-5.85 Venous blood hemoglobin measurement (mass/volume) 12.7 g/dL 13.3-17.7 Blood hematocrit (volume fraction) 37 % 40-54 Automated erythrocyte mean corpuscular volume 103 [foz_us] 80-99 Automated erythrocyte mean corpuscular h emoglobin (mass per erythrocyte) 35 pg 25-34 Automated erythrocyte mean corpuscular h emoglobin concentration measurement (mass/volume) 34 g/dL 32-36 Automated erythrocyte distribution width ratio 14. 0 % 10.0- 14.5 Automated blood platelet count (count/volume) 159 10*3/uL 130-400 Automated blood platelet mean volume measurement 9.1 [foz_us] 7.4-10.4 Whole blood basic metabolic panel - 07/30 06:27 Serum or plasma sodium measurement (moles/volume) 136 mmol/L 135-145 Serum or plasma potassium measurement (moles/volume) 5.1 mmol/L 3.6-5.0 Serum or plasma chloride measurement (moles/volume) 106 mmol/L 98-107 Carbon dioxide 22 mmol/L 21-32 Serum or plasma anion gap determination (moles/volume) 8 mmol/L 5-14 Serum or plasma urea nitrogen measurement (mass/volume ) 19 mg/dL 7-18 Serum or plasma creatinine measurement (mass/volume) 1.11 mg/dL 0.60-1.30 Serum or plasma urea nitrogen/creatinine mass ratio 17 NRG Serum or plasma creatinine measurement w ith calculation of estimated glomerular filtration rate > NRG Serum or plasma glucose measurement (mass/volume) 137 mg/dL 70-105 Serum or plasma calcium measurement (mass/volume) 9.3 mg/dL 8.5-10.1 Complete blood count (CBC) with automate d white blood cell (WBC) differential - 03/18/18 05:50 Blood leukocytes automated count (number/volume) 14.4 10*3/uL 4.3-11.0 Blood erythrocytes automated count (number/volume) 3.57 10*6/uL 4.35-5.85 Venous blood hemoglobin measurement (mass/volume) 12.8 g/dL 13.3-17.7 Blood hematocrit (volume fraction) 37 % 40-54 Automated erythrocyte mean corpuscular volume 102 [foz_us] 80-99 Automated erythrocyte mean corpuscular h emoglobin (mass per erythrocyte) 36 pg 25-34 Automated erythrocyte mean corpuscular h emoglobin concentration measurement (mass/volume) 35 g/dL 32-36 Automated erythrocyte distribution width ratio 14. 3 % 10.0- 14.5 Automated blood platelet count (count/volume) 148 10*3/uL 130-400 Automated blood platelet mean volume measurement 9.3 [foz_us] 7.4-10.4 Automated blood neutrophils/100 leukocytes 78 % 42-75 Automated blood lymphocytes/100 leukocytes 12 % 12-44 Blood monocytes/100 leukocytes 10 % 0-12 Automated blood eosinophils/100 leukocytes 0 % 0-10 Automated blood basophils/100 leukocytes 0 % 0-10 Blood neutrophils automated count (number/volume) 11.2 10*3 1.8-7.8 Blood lymphocytes automated count (number/volume) 1.7 10*3 1.0-4.0 Blood monocytes automated count (number/volume) 1. 5 10*3 0.0-1.0 Automated eosinophil count 0.0 10*3/uL 0 .0-0.3 Automated blood basophil count (count/volume) 0.0 10*3/uL 0.0-0.1 PT panel in platelet poor plasma by coag ulation assay - 03/18/18 05:50 Prothrombin time (PT) in platelet poor plasma by coagu lation assay 14.7 s 12.2-14.7 INR in platelet poor plasma or blood by coagulation as say 1.1 0.8-1.4 Activated partial thromboplastin time (a PTT) in platelet poor plasma bycoagulation assay - 03/18/18 05:50 Activated partial thromboplastin time (a PTT) in platelet poor plasma bycoagulation assay 23 s 24-35 Comprehensive metabolic panel - 03/18/18 05:50 Serum or plasma sodium measurement (moles/volume) 139 mmol/L 135-145 Serum or plasma potassium measurement (moles/volume) 4.6 mmol/L 3.6-5.0 Serum or plasma chloride measurement (moles/volume) 106 mmol/L 98-107 Carbon dioxide 23 mmol/L 21-32 Serum or plasma anion gap determination (moles/volume) 10 mmol/L 5-14 Serum or plasma urea nitrogen measurement (mass/volume ) 23 mg/dL 7-18 Serum or plasma creatinine measurement (mass/volume) 1.10 mg/dL 0.60-1.30 Serum or plasma urea nitrogen/creatinine mass ratio 21 NRG Serum or plasma creatinine measurement w ith calculation of estimated glomerular filtration rate > NRG Serum or plasma glucose measurement (mass/volume) 101 mg/dL 70-105 Serum or plasma calcium measurement (mass/volume) 9.1 mg/dL 8.5-10.1 Serum or plasma total bilirubin measurement (mass/volu me) 0.6 mg/dL 0.1-1.0 Serum or plasma alkaline phosphatase karen surement (enzymatic activity/volume) 90 U/L 40-136 Serum or plasma aspartate aminotransfera se measurement (enzymatic activity/volume) 73 U/L 5-34 Serum or plasma alanine aminotransferase measurement (enzymatic activity/volume) 24 U/L 0-55 Serum or plasma protein measurement (mass/volume) 6.5 g/dL 6.4-8.2 Serum or plasma albumin measurement (mass/volume) 4.1 g/dL 3.2-4.5 CALCIUM CORRECTED 9.0 mg/dL 8.5-10.1 Magnesium - 03/18/18 05:50 Magnesium 2.0 mg/dL 1.8-2.4 Serum or plasma troponin i.cardiac measu rement (mass/volume) - 03/18/18 05:50 Serum or plasma troponin i.cardiac measurement (mass/v olume) 0.81 ng/mL <0.30 Myoglobin, serum - 03/18/18 05:50 Myoglobin, serum 947.6 ng/mL 10.0-92.0 Serum or plasma C reactive protein measu rement (mass/volume) - 03/18/18 05:50 Serum or plasma C reactive protein measurement (mass/v olume) 0.34 mg/dL 0.00-0.50 Erythrocyte sedimentation rate by lester gren method - 03/18/18 05:50 Erythrocyte sedimentation rate by westergren method 6 mm 0- 30 Blood manual differential performed dete ction - 03/18/18 05:50 Blood monocytes/100 leukocytes 10 % NRG Manual blood segmented neutrophils/100 leukocytes 79 % NRG Blood band neutrophils/100 leukocytes 2 % NRG Manual blood lymphocytes/100 leukocytes 6 % NRG Manual eosinophils/100 leukocytes in nose 0 % NRG Manual blood basophils/100 leukocytes 0 % NRG Blood lymphocytes variant/100 leukocytes 3 % NRG Blood ovalocytes detection by light microscopy SLI GHT NRG Blood poikilocytosis detection by light microscopy SLIGHT NRG Blood hypochromia detection by light microscopy [facility] Serum or plasma troponin i.cardiac measu rement (mass/volume) - 03/18/18 09:55 Serum or plasma troponin i.cardiac measurement (mass/v olume) 0.64 ng/mL <0.30 Coronavirus SARS-CoV-2 SO 2019 - 0 08:01 Coronavirus Ab [Units/volume] in Serum Negative Negative Automated blood complete blood count (he mogram) panel - 10/22/19 07:25 Blood leukocytes automated count (number/volume) 8.3 10*3/uL 4.3-11.0 Blood erythrocytes automated count (number/volume) 4.01 10*6/uL 4.35-5.85 Venous blood hemoglobin measurement (mass/volume) 14.2 g/dL 13.3-17.7 Blood hematocrit (volume fraction) 41 % 40-54 Automated erythrocyte mean corpuscular volume 103 [foz_us] 80-99 Automated erythrocyte mean corpuscular h emoglobin (mass per erythrocyte) 35 pg 25-34 Automated erythrocyte mean corpuscular h emoglobin concentration measurement (mass/volume) 34 g/dL 32-36 Automated erythrocyte distribution width ratio 13. 8 % 10.0- 14.5 Automated blood platelet count (count/volume) 190 10*3/uL 130-400 Automated blood platelet mean volume measurement 9.5 [foz_us] 7.4-10.4 Comprehensive metabolic panel - 10/22/19 07:25 Serum or plasma sodium measurement (moles/volume) 140 mmol/L 135-145 Serum or plasma potassium measurement (moles/volume) 4.3 mmol/L 3.6-5.0 Serum or plasma chloride measurement (moles/volume) 107 mmol/L 98-107 Carbon dioxide 23 mmol/L 21-32 Serum or plasma anion gap determination (moles/volume) 10 mmol/L 5-14 Serum or plasma urea nitrogen measurement (mass/volume ) 19 mg/dL 7-18 Serum or plasma creatinine measurement (mass/volume) 1.31 mg/dL 0.60-1.30 Serum or plasma urea nitrogen/creatinine mass ratio 15 NRG Serum or plasma creatinine measurement w ith calculation of estimated glomerular filtration rate 53 NRG Serum or plasma glucose measurement (mass/volume) 92 mg/dL 70-105 Serum or plasma calcium measurement (mass/volume) 9.2 mg/dL 8.5-10.1 Serum or plasma total bilirubin measurement (mass/volu me) 0.6 mg/dL 0.1-1.0 Serum or plasma alkaline phosphatase karen surement (enzymatic activity/volume) 100 U/L 40-136 Serum or plasma aspartate aminotransfera se measurement (enzymatic activity/volume) 22 U/L 5-34 Serum or plasma alanine aminotransferase measurement (enzymatic activity/volume) 16 U/L 0-55 Serum or plasma protein measurement (mass/volume) 7.0 g/dL 6.4-8.2 Serum or plasma albumin measurement (mass/volume) 4.3 g/dL 3.2-4.5 CALCIUM CORRECTED 9.0 mg/dL 8.5-10.1 PT panel in platelet poor plasma by coag ulation assay - 10/22/19 07:25 Prothrombin time (PT) in platelet poor plasma by coagu lation assay 15.8 s 12.2-14.7 INR in platelet poor plasma or blood by coagulation as say 1.2 0.8-1.4 Activated partial thromboplastin time (a PTT) in platelet poor plasma bycoagulation assay - 10/22/19 07:25 Activated partial thromboplastin time (a PTT) in platelet poor plasma bycoagulation assay 33 s 24-35 Encounters ACCT No. Visit Date/Time Discharge Status Pt. Type Provider Facility Loc./Unit Complaint [id number] 02/04/2017 13:59:03 02/04/2017 23:59:5 9 CLS Outpatient [id number] 10/18/2019 06:49:00 23:59:59 CLS Outpatient Ulicse LYONS MD [facility] LABT [id number] 05/20/2019 10:11:00 23:59:59 CLS Outpatient KAYLEY LAMBERT MD [facility] CARD PAF,CAD [id number] 03/23/2019 08:48:00 23:59:59 CLS Outpatient DEAN SHI APRN [facility] RAD PULMONARY FIBROSIS,EBER,COPD,DYSPNEA [id number] 01/22/2019 00:11:00 23:59:59 CLS Preadmit Ulices LYONS MD [facility] CARD PAF [id number] 10/23/2018 08:29:00 00:01:00 DIS Outpatient Ulices LYONS MD [facility] CARD PAF [id number] 12/03/2018 14:06:00 16:11:00 DIS Outpatient Ulices LYONS MD [facility] CATH PAF [id number] 09/22/2018 12:54:00 23:59:59 CLS Outpatient LINDSAY SIMMS [facility] ONC [id number] 09/18/2018 08:52:00 23:59:59 CLS Outpatient DEAN SHI APRN [facility] RAD DYSPNEA [id number] 06/15/2018 08:02:00 23:59:59 CLS Outpatient PETRA CASTANEDA, KAYLEY Rivera [facility] CARD CAD [id number] 05/11/2018 09:30:00 23:59:59 CLS Outpatient DEAN SHI APRN [facility] RT TOBACCO USE [id number] 03/21/2018 21:00:00 06:34:00 DIS Outpatient FELISHA CASTANEDA, FARRUKH Gaona [facility] SLEEP HYPERSOMNIA [id number] 03/18/2018 05:20:00 11:12:00 DIS Emergency RADHA MACKEY MD [facility] ER CHEST PAIN [id number] 03/16/2018 08:58:00 10:35:00 DIS Outpatient Ulices LYONS MD [facility] CATH TYPICAL ATRIAL FLUTTER [id number] 03/12/2018 05:34:00 10:34:00 DIS Outpatient Ulices LYONS MD [facility] PREOP RIGHT EP STUDY [id number] 02/13/2018 13:38:00 10:50:00 DIS Inpatient ELAINE FRANKLIN MD [facility] ICU A-FLUTTER W/RVR ELEVATE D TROPONIN [id number] 10/06/2017 11:08:00 23:59:59 CLS Outpatient MARVIN GROVE MD [facility] RAD RT SHOULDER PAIN [id number] 09/23/2017 13:06:00 018 23:59:59 CLS Outpatient LINDSAY SIMMS [facility] ONC [id number] 09/10/2017 10:58:00 018 23:59:59 CLS Outpatient FARRUKH SCOTT MD [facility] RAD BILATERAL HIP PAIN [id number] 08/11/2017 10:24:00 018 23:59:59 CLS Outpatient FARRUKH SCOTT MD [facility] RAD COPD [id number] 08/09/2017 02:24:00 018 03:26:00 DIS Emergency VICENTA CASTANEDA, JANN Chaidez [facility] ER RT SHOULDER OLAMIDE N [id number] 01/03/2017 10:01:00 017 23:59:59 CLS Outpatient DEAN SHI APRN [facility] RAD R91.1 LUNG NODU LE [id number] 12/06/2016 13:41:00 017 23:59:59 CLS Outpatient GÓMEZ ARIAS [facility] CARD CAD I25.10 [id number] 11/25/2016 09:01:00 017 23:59:59 CLS Outpatient LINDSAY SIMMS [facility] ONC [id number] 10/09/2016 10:22:00 017 11:00:00 DIS Outpatient KAYLEY LAMBERT MD [facility] CR STABLE ANGINA [id number] 09/18/2016 11:28:00 017 00:01:00 DIS Outpatient KAYLEY LAMBERT MD [facility] CR STABLE ANGINA [id number] 08/21/2016 15:52:00 017 23:59:59 CLS Outpatient DEAN SHI RAISE DRILLER [facility] RT R06.00 DYSPNEA [id number] 08/14/2016 11:46:00 017 23:59:59 CLS Outpatient KAYLEY LAMBERT MD [facility] CARD I25.10 [id number] 07/18/2016 10:57:00 017 23:59:59 CLS Emergency JANN YADAV MD [facility] ER CHEST PAIN [id number] 04/17/2016 07:52:00 017 09:30:00 DIS Outpatient KAYLEY LAMBERT MD [facility] CATH CAD,HTN [id number] 02/13/2016 12:57:00 016 23:59:59 CLS Outpatient LINDSAY SIMMS [facility] ONC [id number] 01/15/2016 12:51:00 016 23:59:59 CLS Outpatient LINDSAY SIMMS [facility] ONC [id number] 11/22/2015 07:47:00 016 23:59:59 CLS Outpatient GÓMEZ ARIAS [facility] CARD CAD,CAROTID STENOSIS, HTN [id number] 10/19/2015 08:41:00 016 23:59:59 CLS Outpatient GÓMEZ ARIAS [facility] CARD CAD,CAROTID STENOSIS,HTN [id number] 01/12/2015 12:57:00 015 23:59:59 CLS Outpatient LINDSAY SIMMS [facility] ONC [id number] 04/18/2014 15:32:00 015 23:59:59 CLS Outpatient GÉNESIS MIRAMONTES DO [facility] RT SNORING EXCESSIVE DAYTI ME SLEEPINESS HTN DYSPNEA [id number] 03/07/2014 08:23:00 014 23:59:59 CLS Outpatient KAYLEY LAMBERT MD [facility] CARD CAD,KATELIN,HTN [id number] 03/02/2014 10:07:00 014 23:59:59 CLS Outpatient KAYLEY LAMBERT MD [facility] CARD CAD,KATELIN,HTN [id number] 01/13/2014 14:18:00 14:46:00 DIS Emergency DELGADOMELIZA APRN [facility] ER FINGER LACERATION [id number] 01/12/2014 12:46:00 23:59:59 CLS Outpatient GLORIA ANTHONY [employer] [facility] ONC [id number] 11/30/2013 10:27:00 13:02:00 DIS Emergency NARENDRA CASTANEDA, RADHA T [facility] ER LIGHTHEADED/SYN COPE [id number] 09/24/2013 14:00:00 17:00:00 DIS Outpatient FESTUS AZUL [facility] REHAB L LEG AND THIGH PAIN [id number] 08/24/2013 08:58:00 23:59:59 CLS Outpatient KAYLEY LAMBERT MD [facility] RAD CAD,HTN, [id number] 02/09/2013 11:36:00 23:59:59 CLS Outpatient GÓMEZ ARIAS [facility] RAD CAD DIZZINE SS,HTN, [id number] 02/05/2013 09:06:00 23:59:59 CLS Outpatient KAYLEY LAMBERT MD [facility] CARD CAD,DIZZINESS,HTN [id number] 01/11/2013 13:07:00 23:59:59 CLS Outpatient LINDSAY SIMMS [facility] ONC [id number] 12/25/2012 07:30:00 12:00:00 DIS Outpatient ELO CASTRO DPM [facility] HAMMERTOE 3RD A ND 4TH RIGHT [id number] 12/22/2012 09:51:00 23:59:59 CLS Outpatient ELO CASTRO DPM [facility] PREOP HAMMERTOES 3RD AND 4TH RIGHT [id number] 10/22/2019 08:45:00 P Ulices Yañez MD [facility] [id number] 11/26/2017 08:04:00 Document Registration [id number] 06/06/2014 11:02:00 Document Registration [id number] 03/01/2014 09:33:00 Document Registration [id number] 03/01/2014 09:33:00 Document Registration [id number] 07/16/2012 13:47:00 Document Registration [id number] 05/28/2012 06:00:00 Document Registration [id number] 05/11/2012 12:00:00 Document Registration [id number] 01/13/2012 13:09:00 Document Registration [id number] 10/21/2011 12:30:00 Document Registration [id number] 01/14/2011 13:33:00 Document Registration [id number] 09/12/2010 10:10:00 Document Registration [id number] 12/14/2009 08:48:00 Document Registration [id number] 10/30/2009 07:03:00 Document Registration [id number] 03/15/2009 00:00:00 Document Registration [id number] 12/27/2008 12:52:00 Document Registration [id number] 12/14/2008 09:32:00 Document Registration
[2019-10-22] MEDS ORDERED: PHENYLEPHRINE INJ 10 MG/ML (FOR DRIP KITS ONLY) ONE ×2 (10:57→12:33)
[2019-10-22] MEDS ORDERED: NS (IVPB) 100 ML ONE ×2 (10:58→12:34)
[2019-10-22] MEDS ORDERED: NS IV 1000 ML 1,000 ML ONE (11:57)
[2019-10-22] MEDS ORDERED: PROTAMINE 50 MG/5 ML VIAL ONE (12:51)
--- NOTE | 2019-10-22 13:22 | Electrophysiology Procedure ---
EP Procedure Paroxysmal atrial fibrillation ablation operative report DATE OF SERVICE:10/22/19 CARDIAC FOLDER SEAMER AUTOMATIC: Chad Martines MD, [facility] INDICATION: Paroxysmal atrial fibrillation. PREOPERATIVE DIAGNOSIS: Paroxysmal atrial fibrillation. POSTOPERATIVE DIAGNOSES: Pulmonary vein isolation. HISTORY: This is a 79-year-old gentleman with history of CAD, CABG, PAD. He has history of paroxysmal atrial fibrillation. The patient is planned for comprehensive EP study and ablation. PROCEDURE PERFORMED: 1. Comprehensive EP study with induction. 2. Fluoroscopy. 3. Left atrial pacing and recording. 4. Drug infusion. 5. Left ventricular pacing and recording. 6. Comprehensive 3D mapping with the carto system. 7. Pulmonary vein isolation. 8. Intracardiac echocardiogram. COMPLICATION: None. ESTIMATED BLOOD LOSS: 10 mL. CONTRAST USED: None. FLUOROSCOPY TIME: 2.51 minutes. FLUOROSCOPY DOSE: 61 MGY. SPECIMENS: None. ANESTHESIA: Done by our anesthesia colleagues. ANTICOAGULATION: Uninterrupted anti-coag ablation. PROCEDURE IN DETAIL: After informed consent was taken, the patient was brought to the EP lab. Anesthesia was provided by our anesthesia colleagues. The patient was draped and prepped in the usual sterile fashion. The patient presented to the EP lab in sinus rhythm. Access was gained in the right femoral vein with a 8 Mauritian and a 7 Mauritian sheath. Left access in the left femoral vein with a 12 Mauritian and 6 Mauritian sheath respectively. His Catheter and ICE catheter were advanced from the left access sites. CS multipolar catheter was advanced placed in the CS from the right access site. A guidewire was advanced into the SVC. Long sheath was advanced on top of the guidewire into the SVC. The wire was taken out. We then went in with the transseptal needle. Under fluoroscopic and intracardiac echocardiogram guidance, the sheath and transseptal needle were pulled into the fossa ovalis. Transseptal puncture was done under ice and fluoroscopic guidance. This was confirmed with left atrial pressure measurements. IV heparin was given and ACT was kept over 350 seconds. a Bios[employer]ostat[employer] Jiménez Pentaray catheter was advanced for left atrial mapping. We also used the intracardiac echocardiogram to create an ultrasound shell of the left atrium and identified all vital landmarks including the left atrial appendage, left pulmonary veins, right pulmonary veins, mitral valve, fossa ovalis, aortic cusps. With this multipolar mapping catheter left atrial voltage and electro anatomical map was created. The multipolar mapping catheter was then taken out and and irrigated ablation catheter was advanced into the left atrium. Pulmonary vein isolation was performed. Bidirectional block in both left and right sided pulmonary veins was confirmed. This was done with high output pacing in each pulmonary vein. High-dose Isuprel was started at 20mg/minute. Rapid atrial pacing did not induce atrial fibrillation. After 30 minutes of ablation we rechecked the veins and reconfirmed bidirectional block. Comprehensive EP study was done. Left atrial pacing did not demonstrate any evidence of left-sided bypass tract. Left ventricular pacing and recording was also done, which did not demonstrate any VA conduction at pacing at cycle length 600 ms. A 3D electroanatomic mapping was donewith the carto system. Throughout the procedure, intracardiac echocardiogram did not demonstrate any pericardial effusion.At the end of the procedure 8 mg of IV Decadron and 20 mg of IV protamine was given. Figure of 8 sutures were done to bilateral groin areas. The patienttolerated the procedurewell and did not have any complication. The patientleft the lab in sinus rhythm. Total ablation time was 18 minutes and 34 seconds. MEASUREMENTS/EP STUDY: AA interval 1181 ms, AH interval 97 ms, OR interval 160 ms, HV interval 54 ms, QT interval to 92 ms, QRS duration 65 ms, R-R interval 1175 ms, LV pacing and recording, no VA conduction at LV pacing at cycle length 600 ms. AV Wenckebach at cycle length 510 ms, AV Wenckebach at cycle length 520 ms, Atrial ERP at 600/520 ms. PLAN: The patient will be observed overnight and will be discharged home tomorrow with precise followup instructions. Chad Martiens MD, [facility] Cardiac Electrophysiology Ulices MARTINES MD Oct 22, 2019 13:22
[2019-10-22] MEDS ORDERED: PATIENT MAY USE OWN MEDS, ALL PO SCH (13:30)
[2019-10-22] MEDS ORDERED: ONDANSETRON 4 MG/2 ML (SDV) Z0FRAN IVP PRN (14:00)
[2019-10-22] MEDS ORDERED: morphine INJ 10 MG/ML 1ML (SYR OR VIAL) IVP ONE (14:00)
[2019-10-22] MEDS ORDERED: morphine INJ 10 MG/ML 1ML (SYR OR VIAL) ONE (14:04)
[2019-10-22] MEDS ORDERED: ATOR40TA70 PO (16:54)
[2019-10-22] MEDS ORDERED: RIVAROXABAN 20 MG TABLET (XARELTO) PO SCH (17:00)
[2019-10-22] MEDS ORDERED: FUROSEMIDE 20 MG (LASIX) TAB PO PRN (17:30)
[2019-10-22] MEDS: NS IV 1000 ML 1,000 ML IV SCH ×2 (17:58→20:02)
[2019-10-22] MEDS: MULTIVIT W/MINERALS TAB (THERAGRAN M) PO SCH (18:10)
[2019-10-22] MEDS: MAGNESIUM GLYCINATE 665 MG PO SCH (18:11)
[2019-10-22] MEDS ORDERED: ASPIRIN E.C. 81 MG (ECOTRIN) TAB PO SCH (21:00)
[2019-10-22] MEDS ORDERED: ALLOPURINOL 100 MG (ZYLOPRIM) TAB PO SCH (21:00)
[2019-10-22] MEDS ORDERED: FLAXSEED OIL PO SCH (21:00)
[2019-10-22] MEDS ORDERED: MAGNESIUM OXIDE 200 MG PO SCH (21:00)
[2019-10-22] MEDS ORDERED: doxAzosin 4 MG (CARDURA) TAB PO SCH (21:00)
[2019-10-22] MEDS ORDERED: lisINopril 5 MG (PRINIVIL) TABLET PO SCH (21:00)
[2019-10-22] MEDS ORDERED: APIXABAN 5 MG (ELIQUIS) TABLET PO SCH (21:00)
[2019-10-22] MEDS: APIXABAN 5 MG (ELIQUIS) TABLET PO SCH (22:43)
[2019-10-22] MEDS: [UNRECOGNIZED DRUG - OTHER] PO SCH (22:44)
[2019-10-22] MEDS: LISINOPRIL 2.5 MG TAB PO SCH (22:45)
[2019-10-23] VITALS (14 sets, daily range): BP systolic 95–135; BP diastolic 56–76
[2019-10-23 03:13] LABS: HEMOGLOBIN 12.4 G/DL (13.3-17.7); MEAN PLATELET VOLUME 9.6 FL (7.4-10.4); RED CELL DISTRIBUTION WIDTH 13.9 % (10.0-14.5); WHITE BLOOD COUNT 13.8 10^3/uL (4.3-11.0)
[2019-10-23 03:24] LABS: CHLORIDE 107 MMOL/L (98-107); POTASSIUM 4.4 MMOL/L (3.6-5.0); SODIUM 136 MMOL/L (135-145)
[2019-10-23 03:25] LABS: CALCIUM 8.2 MG/DL (8.5-10.1)
[2019-10-23 03:26] LABS: GLUCOSE 155 MG/DL (70-105)
[2019-10-23 03:27] LABS: CARBON DIOXIDE 19 MMOL/L (21-32)
[2019-10-23 03:30] LABS: CREATININE SERUM 1.13 MG/DL (0.60-1.30); GFR ESTIMATED > 60
[2019-10-23 03:31] LABS: BUN/CREATININE RATIO 15
[2019-10-23] MEDS ORDERED: LEVOTHYROXINE 50 MCG (LEVOTHROID) TAB PO SCH (06:30)
--- NOTE | 2019-10-23 06:43 | NUR ---
Ford removed at this time
[2019-10-23] MEDS: LISINOPRIL 2.5 MG TAB PO SCH (08:32)
[2019-10-23] MEDS: APIXABAN 5 MG (ELIQUIS) TABLET PO SCH (08:32)
[2019-10-23] MEDS: [UNRECOGNIZED DRUG - OTHER] PO SCH (08:34)
[2019-10-23] MEDS: MAGNESIUM GLYCINATE 665 MG PO SCH (08:35)
[2019-10-23] MEDS: MULTIVIT W/MINERALS TAB (THERAGRAN M) PO SCH (08:38)
[2019-10-23] MEDS ORDERED: POTASSIUM 99 MG PO SCH (09:00)
[2019-10-23] MEDS ORDERED: ALLOPURINOL 100 MG (ZYLOPRIM) TAB PO SCH (09:00)
[2019-10-23] MEDS ORDERED: KCL 10 MEQ TAB (MICRO K) PO SCH (09:00)
[2019-10-23] MEDS ORDERED: PANTOPRAZOLE 40 MG (PROTONIX) TAB PO SCH (09:00)
[2019-10-23] MEDS ORDERED: meTOproloL SUCCINATE 50 MG (TOPROL XL) TAB PO SCH (09:00)
[2019-10-23] MEDS ORDERED: predniSONE 20 MG TAB PO SCH (09:00)
[2019-10-23] MEDS: NS IV 1000 ML 1,000 ML IV SCH (09:28)
[2019-10-23] MEDS ORDERED: IBUPROFEN 800 MG (MOTRIN) TAB PO ONE (09:30)
--- NOTE | 2019-10-23 12:22 | Anesthesia-General Post-Op ---
General Patient Condition Mental Status/LOC: Same as Preop Cardiovascular: Satisfactory Nausea/Vomiting: Absent Respiratory: Satisfactory Pain: Controlled Complications: Absent Post Op Complications Complications None Follow Up Care/Instructions Patient Instructions None needed. Anesthesia/Patient Condition Patient Condition Patient is doing well, no complaints, stable vital signs, no apparent adverse anesthesia problems. No complications reported per nursing. SOPHIA MANLEY CRNA Oct 23, 2019 12:22
[2019-10-23] MEDS ORDERED: IBUPROFEN TABLET 200 MG TAB PO ONE (13:45)
--- NOTE | 2019-10-23 15:11 | Cardiology Discharge Summary ---
Diagnosis/Chief Complaint Date of Admission 10/22/2019 Date of Discharge 10/23/2019 Admission Diagnosis Paroxysmal atrial fibrillation, History of CAD, History of PAD Final/Discharge Diagnosis Paroxysmal atrial fibrillation, status post ablation. Chief Complaint/HPI Chief Complaint/HPI This is a 79-year-old gentleman with history of paroxysmal atrial fibrillation, atrial fibrillation ablation is recommended. Discharge Summary Procedures Pulmonary vein isolation done on 10/22/2019. Discharge Physical Examination Normal cardiovascular examination. Hospital Course Was the Problem List Reviewed?: Yes Patient complain of chest pain this morning which is likely due to myoperica rditis. Positive troponin, however level is the same with no upward trend. EKG is negative for any acute ST-T wave abnormalities. Improved with ibuprofen. Pending Labs Laboratory Tests 10/23/19 09:13: Troponin I 2.530 10/23/19 11:07: Troponin I 2.576 Discussion & Recommendations Discussion Discharge took over 30 minutes to complete. Discharge instructions were discussed at length with the patient. Positive troponin with no output trend is very likely due to 18 minutes of ablation done in the left atrium yesterday. Chest pain improved with ibuprofen. Follow up appt.: Follow-up with Dr. Martines in one to 2 weeks. Dicharge Diet: Cardiac Diet Activity as Tolerated: Yes Home Medications Reviewed patient Home Medication Reconciliation performed by pharmacy medication reconciliations downstream biomanufacturing technician and/or nursing. Patients Allergies have been reviewed. Discharge Home Medications: Reviewed and agree with Discharge Medication list on patient's Discharge Instruction sheet Condition at discharge Stable. Instructions to patient/family Discussed at length with the patient and family. I recommended that the patient comes to the ER if there is significant unremitting chest pain. Ulices MARTINES MD Oct 23, 2019 15:11
--- NOTE | 2019-10-23 15:12 | Discharge Inst-Post CATH ---
Discharge Inst-CATH/EP Problems Reviewed?: Yes Final Diagnosis Paroxysmal atrial fibrillation ablation Post Cardiac Cath/EP D/C Inst Follow Up/Plan Discussed at length with the patient and family. I recommended that the patient comes to the ER if there is significant unremitting chest pain. <b>CARDIAC CATH/EP PROCEDURE DISCHARGE INSTRUCTIONS</b> ACTIVITY * Go Home directly and rest. * Limit activity of the leg (or wrist if it was used) for 7 days including aerobics, swimming, jogging, bicycling, etc. * Restrict stair-climbing for 7 days if possible, if not, climb up with your non-cath leg, then bring together on the same step. * Avoid lifting, pushing, pulling or excessive movement of the affected extremity for 7 days. * Customary sexual activity may be resumed after 2 days-use caution not to use a position that strains or causes pain to the affected extremity. * No driving for 24 hours. * NO SMOKING. * Avoid straining for bowel movements for 7 days. * Gentle walking on level ground is allowed. * Returning to work will depend on the type of procedure and the results. Your doctor will discuss this with you. CALL YOUR DOCTOR FOR ANY OF THE FOLLOWING: *If bleeding from the puncture site occurs- Apply gentle pressure to site with clean cloth and call your doctor or EMS. * If a knot or lump forms under the skin, increases in size, or causes pain. * If bruising appears to be worsening or moving further down your leg instead of disappearing. * Temperature above 101 F. CARE OF YOUR GROIN INCISION; * Bruising or purple discoloration of the skin near the puncture site is common. * You may shower only, no bathtub bathing for 5 days. Be careful to avoid slipping as your leg may feel stiff. * If a closure device was used on your femoral artery, please see the attached guide regarding care of the device and your leg. * Leave dressing on FOR 24 hours. CARE OF YOUR WRIST INCISION; * Bruising or purple discoloration of the skin near the puncture site is common. * You may shower. * DO NOT submerge wrist. * Leave dressing on FOR 24 hours. Ulices LYONS MD Oct 23, 2019 15:12
--- NOTE | 2019-10-23 15:23 | NUR ---
TENISHA ESCAMILLA demonstrates understanding of discharge instructions and accurately returns instructions upon questioning. Copy of Post-Discharge Instructions and Medication Discharge Instructions given to patient. TENISHA ESCAMILLA is able to manage continuing needs after discharge. Patients belongings returned to patient. Skin dry and intact; no breakdown noted. Patient discharged from [facility]- on 10/23/19 at 1523. ANDITENISHA left floor via wheelchair, accompanied by nurse jose and .
[2019-10-23] MEDS ORDERED: CALCIUM CARB + VIT D 600 MG (CALCARB + D) TAB PO SCH (17:00)
== END 2019-10-23 15:23 | disposition home or self-care (01) ==
LOC: CATH 06:59 → ICU 14:47 → CATH 10-23 15:23
PROVIDERS: ATTEND Internal Medicine Interventional Cardiology
DX: I48.0 Paroxysmal atrial fibrillation (principal); I25.10 Atherosclerotic heart disease of native coronary artery without angina pectoris; J44.9 Chronic obstructive pulmonary disease, unspecified; E11.51 Type 2 diabetes mellitus with diabetic peripheral angiopathy without gangrene; J84.10 Pulmonary fibrosis, unspecified; E03.9 Hypothyroidism, unspecified; G47.33 Obstructive sleep apnea (adult) (pediatric); E78.2 Mixed hyperlipidemia; I34.0 Nonrheumatic mitral (valve) insufficiency; I65.23 Occlusion and stenosis of bilateral carotid arteries; F17.210 Nicotine dependence, cigarettes, uncomplicated; Z85.820 Personal history of malignant melanoma of skin; Z85.46 Personal history of malignant neoplasm of prostate; Z79.899 Other long term (current) drug therapy; Z79.01 Long term (current) use of anticoagulants; Z79.82 Long term (current) use of aspirin; Z95.1 Presence of aortocoronary bypass graft; Z95.5 Presence of coronary angioplasty implant and graft; Z79.890 Hormone replacement therapy
CPT/HCPCS: 80048; 80053; 84484; 85027 ×2; 85347; 85610; 85730; 87081; 93005 ×2; 93613; 93620; 93623; 93656; 93662; C1730 ×2; C1732 ×2; C1759; C1894 ×5; 36415

== ENCOUNTER → 2019-12-08 | Outpatient (CLI) | payer MEDICARE, BC ==
[~2019-12-08] MED LIST changes: +FURO20TA4 PO; +POTA10TA6 PO
[2019-12-08 09:38] LABS: BASOPHILS % (AUTO) 0 % (0-10); EOSINOPHILS # (AUTO) 0.3 10^3/uL (0.0-0.3); EOSINOPHILS % (AUTO) 4 % (0-10); HEMATOCRIT 41 % (40-54); HEMOGLOBIN 13.9 G/DL (13.3-17.7); LYMPHOCYTES # (AUTO) 1.7 X 10^3 (1.0-4.0); LYMPHOCYTES % (AUTO) 23 % (12-44); MEAN CORPUSCULAR HEMOGLOBIN 35 PG (25-34); MEAN CORPUSCULAR HGB CONC 34 G/DL (32-36); MEAN CORPUSCULAR VOLUME 103 FL (80-99); MEAN PLATELET VOLUME 9.6 FL (7.4-10.4); MONOCYTES # (AUTO) 0.8 X 10^3 (0.0-1.0); MONOCYTES % (AUTO) 10 % (0-12); NEUTROPHILS # (AUTO) 4.8 X 10^3 (1.8-7.8); NEUTROPHILS % (AUTO) 63 % (42-75); PLATELET COUNT 187 10^3/uL (130-400); RED CELL DISTRIBUTION WIDTH 13.6 % (10.0-14.5); WHITE BLOOD COUNT 7.6 10^3/uL (4.3-11.0)
[2019-12-08 09:59] LABS: BILIRUBIN,TOTAL 0.6 MG/DL (0.1-1.0); CALCIUM 9.5 MG/DL (8.5-10.1); CREATININE SERUM 1.24 MG/DL (0.60-1.30); POTASSIUM 4.4 MMOL/L (3.6-5.0); TOTAL PROTEIN 6.2 GM/DL (6.4-8.2)
== END ==
LOC: ONC 09:23
PROVIDERS: ATTEND Internal Medicine Hematology & Oncology
DX: C43.62 Malignant melanoma of left upper limb, including shoulder (principal); R91.1 Solitary pulmonary nodule; Z85.46 Personal history of malignant neoplasm of prostate; Z98.890 Other specified postprocedural states; Z72.0 Tobacco use
CPT/HCPCS: 80053; 83615; 84153; 85025; G0463; 99213

== ENCOUNTER → 2020-04-26 | Outpatient (CLI) | payer MEDICARE, BC ==
[~2020-04-26] MED LIST changes: -AMIO200T4 PO; +AMIO200T6 PO; +ASPI-1238 PO; -ASPI-983 PO; -PANT40TA3 PO; +PANT40TA52 PO
--- NOTE | 2020-04-26 15:22 | Diagnostic Imaging Report ---
PROCEDURE: CT chest without contrast. TECHNIQUE: Multiple contiguous axial images were obtained through the chest without the use of intravenous contrast. Auto Exposure Controls were utilized during the CT exam to meet ALARA standards for radiation dose reduction. INDICATION: History of pulmonary micronodules. Follow-up. COMPARISON: 03/23/2019. FINDINGS: Multiple bilateral pulmonary micronodules are again identified. Largest of these is seen within the superior margins of the lateral segment of the right middle lobe and measures 7 mm (image 79, series 3). This is stable compared to 03/23/2019. Other pulmonary micronodules are also unchanged. No new suspicious pulmonary nodule or mass is seen. Note is again made of diffuse chronic interstitial lung disease primarily within a subpleural distribution. Overall, burden of disease appears stable. There is no new focal consolidation, large effusion, nor pneumothorax. Cardiomediastinal structures show normal heart size. There is no large pericardial effusion. Note is made of moderate calcified aortic and coronary atherosclerosis. No pathologically enlarged or morphologically abnormal adenopathy is seen within the mediastinum, crispin, nor axilla. Osseous structures show age-related degenerative changes. No lytic or blastic osseous lesions are seen. Included portions of the upper abdomen show multiple hypodense right hepatic cysts. IMPRESSION: 1. Multiple bilateral pulmonary micronodules are again identified and are stable compared to 03/23/2019. Continued follow-up with annual low-dose CT chest for screening purposes is recommended. 2. No new suspicious pulmonary nodule or mass. 3. Redemonstration of background moderate chronic interstitial lung disease. Lung-RADS category 2. Dictated by: Dictated on workstation # [id number]
== END ==
LOC: RAD 13:45
PROVIDERS: ATTEND Nurse Practitioner Family
DX: R93.89 Abnormal findings on diagnostic imaging of other specified body structures (principal); R91.8 Other nonspecific abnormal finding of lung field
CPT/HCPCS: 71250

== ENCOUNTER 2020-07-09 18:42 | Emergency (ER) | payer MEDICARE, BC ==
[~2020-07-09] VITALS: Ht 182 cm; Wt 97.5 kg
[~2020-07-09 18:42] MED LIST changes: -LISI-556 PO; +LISI-729 PO
--- NOTE | 2020-07-09 19:01 | ED Upper Extremity ---
General Stated Complaint: L HAND RING FINGER INJ Source: patient History of Present Illness Date Seen by Provider: Jul 09, 2020 Time Seen by Provider: 18:55 Initial Comments PT ARRIVES VIA POV FROM HOME C/O INJURY TO LEFT 4TH FINGER STATES YESTERDAY AROUND 1600, A PIECED OF STEEL PIPE/POST FELL ON HIS FINGER DENIES ANY OTHER INJURIES NO PRIOR INJURY TO THIS HAND OR FINGER PT IS RIGHT HANDED LAST TETANUS VACCINE WAS MANY YEARS AGO. PCP: DR. SCOTT Allergies and Home Medications Allergies Coded Allergies: No Known Drug Allergies (Verified , 02/23/08) Home Medications Allopurinol 100 Mg Tablet, 200 MG PO DAILY, (Reported) TAKES 2 (100MG) TABLETS IN AM Allopurinol 100 Mg Tablet, 100 MG PO HS, (Reported) Apixaban 5 Mg Tablet, 5 MG PO BID, (Reported) Aspirin 81 Mg Tablet.dr, 81 MG PO HS, (Reported) Atorvastatin Calcium 40 Mg Tablet, 40 MG PO DAILY, (Reported) Calcium Carbonate/Vitamin D3 1 Each Tablet, 1 TAB PO HS, (Reported) Doxazosin Mesylate 4 Mg Tablet, 4 MG PO HS, (Reported) Flaxseed Oil 1,000 Mg Capsule, 3,500 MG PO HS, (Reported) Furosemide 20 Mg Tablet, 20 MG PO PRN, (Reported) Levothyroxine Sodium 50 Mcg Tablet, 50 MCG PO DAILY, (Reported) Lisinopril 5 Mg Tablet, 2.5 MG PO BID, (Reported) TAKES 1/2 (5MG) TABLET Magnesium Oxide 400 Mg Tablet, 200 MG PO BID, (Reported) Metoprolol Succinate 25 Mg Tab.er.24h, 50 MG PO DAILY, (Reported) Multivitamin 1 Each Tablet, 0.5 EACH PO BID, (Reported) Pantoprazole Sodium 40 Mg Tablet.dr, 40 MG PO DAILY, (Reported) Potassium Chloride 10 Meq Tablet.er, 99 MEQ PO DAILY, (Reported) Prednisone 20 Mg Tab, 1 TAB PO DAILY Prescribed by: RADHA EMLISSA on 03/18/18 1107 Ranolazine 1,000 Mg Tab.er.12h, 1,000 MG PO BID, (Reported) Patient Home Medication List Home Medication List Reviewed: Yes Review of Systems Constitutional: no symptoms reported Musculoskeletal: see HPI Skin: no symptoms reported Psychiatric/Neurological: No Symptoms Reported Past Jfvjmue-Ueiuiy-Aysfnx Hx Past Med/Social Hx: Reviewed and Corrections made Patient Social History Type Used: Cigarettes 2nd Hand Smoke Exposure: Yes Recent Hopitalizations: No Immunizations Up To Date Tetanus Booster (TDap): More than 5yrs Date of Pneumonia Vaccine: Nov 12, 2016 Date of Influenza Vaccine: Jan 12, 2019 Seasonal Allergies Seasonal Allergies: No Past Medical History Surgeries: Yes (BACK SURGERY, HERNIA REPAIR, SHOULDER SX, PROSTATE BRACHYTHERPY) Abdominal, CABG, Orthopedic, Prostatectomy Respiratory: Yes Sleep Apnea Currently Using CPAP: Yes Currently Using BIPAP: No Cardiac: Yes Atrial Fibrillation, Hypertension Neurological: No Reproductive Disorders: No Genitourinary: Yes (PROSTATE CANCER) Prostate Problems Gastrointestinal: Yes Abdominal Hernia, Gastroesophageal Reflux Musculoskeletal: Yes Arthritis, Chronic Back Pain, Gout Endocrine: Yes Hypothyroidsim HEENT: No Cancer: Yes Prostate, Skin Did You Recieve Any Treatments: Yes What Type of Treatment Did You: Radiation, Surgical Intervention Psychosocial: No Integumentary: No Blood Disorders: No Adverse Reaction/Blood Tranf: No Family Medical History Cardiovascular disease 19 MOTHER Myocardial infarction 19 FATHER No Pertinent Family Hx Physical Exam Vital Signs Vital Signs - First Documented 07/09/20 18:54 Temp 35.5 Pulse 85 Resp 16 B/P (MAP) 127/76 (93) Pulse Ox 95 O2 Delivery Room Air Capillary Refill : Height, Weight, BMI Height: 6'0.00" Weight: 213lbs. 0.0oz. 96.230323ez; 30.18 BMI Method:Stated General Appearance: WD/WN, no apparent distress Hand: Left (DISTAL ASPECT OF LEFT 4TH FINGER WITH BRUISING AND SLIGHT SWELLING, TENDERNESS AND LIMITED ROM. APPEARS TO HAVE SOME LIGAMENT LAXITY AT DIP JOINT--BOTH EXTENSOR AND FLEXOR TENDON ASPECTS. SENSORY/VASCULAR INTACT. ) Neurologic/Psychiatric: phlebotomy services representative II-XII nml as tested, alert, normal mood/affect, oriented x 3 Skin: normal color, warm/dry, ecchymosis Procedures/Interventions Splinting and Joint Reduction : Splint Application: Finger Progress/Results/Core Measures Results/Orders My Orders Orders - KAUSHIK NEGRETE DO Finger(S) (07/09/20 18:57) Ed Ortho/Other Supplies Order (07/09/20 19:31) Vital Signs/I&O 07/09/20 07/09/20 18:54 19:46 Temp 35.5 Pulse 85 77 Resp 16 16 B/P (MAP) 127/76 (93) 112/73 Pulse Ox 95 95 O2 Delivery Room Air Room Air Progress Progress Note : Progress Note PT DECLINES PAIN MEDICATIONS--STATES HE TAKES HYDROCODONE FOR HIS BACK, AND HIS FINGER DOES NOT HURT VERY MUCH Diagnostic Imaging Comments XRAYS LEFT 4TH FINGER--AVULSION FRACTURE AT DIP JOINT, PENDING RADIOLOGIST PRATIBHA Mckeon PER RADIOLOGIST REPORT: FINDINGS: There are mild degenerative changes seen throughout the visualized left hand. There is a small ossific fragment overlying the dorsal aspect of the distal left 4th interphalangeal joint. No other acute fracture, dislocation or destructive osseous process is seen. IMPRESSION: Tiny ossific fragment along the dorsal aspect of the left 4th distal interphalangeal joint concerning for an avulsed fracture fragment. Reviewed: Reviewed by Me Departure Impression Primary Impression: Avulsion fracture of distal phalanx of finger Disposition: 01 HOME, SELF-CARE Condition: Stable Departure-Patient Inst. Referrals: FARRUKH SCOTT MD (PCP/Family) Primary Care Physician SUZETTE MEZA MD, MICHAEL P MD Patient Instructions: Finger Fracture ED, SPLINT CARE Add. Discharge Instructions: WEAR SPLINT AT ALL TIMES ICE TO AREA AT 20 MINUTE INTERVALS ELEVATE HAND MUCH POSSIBLE FOLLOW UP WITH DR. SIEGEL OR DR. MEZA, ORTHOPEDIC SURGEONS, OR ORTHOPEDIC SURGEON OF CHOICE, IN THE NEXT FEW DAYS FOR FURTHER CARE KAUSHIK NEGRETE DO Jul 09, 2020 19:01
[2020-07-09 19:46] VITALS: BP 112/73
--- NOTE | 2020-07-09 19:48 | Diagnostic Imaging Report ---
EXAM: Left finger radiograph. EXAM DATE: 07/09/2020. COMPARISON: None. HISTORY: Distal 4th finger pain after injury. TECHNIQUE: Three views of the distal left 4th digit. FINDINGS: There are mild degenerative changes seen throughout the visualized left hand. There is a small ossific fragment overlying the dorsal aspect of the distal left 4th interphalangeal joint. No other acute fracture, dislocation or destructive osseous process is seen. IMPRESSION: Tiny ossific fragment along the dorsal aspect of the left 4th distal interphalangeal joint concerning for an avulsed fracture fragment. Dictated by: Dictated on workstation # [id number]
== END 2020-07-09 19:47 | disposition home or self-care (01) ==
LOC: EDUNIT# 18:42 → ER 18:44
DX: S62.635A Displaced fracture of distal phalanx of left ring finger, initial encounter for closed fracture (principal); I10 Essential (primary) hypertension; I48.91 Unspecified atrial fibrillation; E03.9 Hypothyroidism, unspecified; K21.9 Gastro-esophageal reflux disease without esophagitis; Z77.22 Contact with and (suspected) exposure to environmental tobacco smoke (acute) (chronic); Z85.46 Personal history of malignant neoplasm of prostate; Z85.828 Personal history of other malignant neoplasm of skin; Z95.1 Presence of aortocoronary bypass graft; Z79.82 Long term (current) use of aspirin; Z79.01 Long term (current) use of anticoagulants; Z79.52 Long term (current) use of systemic steroids; Z79.890 Hormone replacement therapy; W20.8XXA Other cause of strike by thrown, projected or falling object, initial encounter
CPT/HCPCS: 29130; 73140

== ENCOUNTER → 2020-09-12 | Outpatient (CLI) | payer MEDICARE, BC ==
--- NOTE | 2020-09-12 16:14 | Diagnostic Imaging Report ---
INDICATION: Cough. PA and lateral chest obtained at 01:29 p.m. and compared 03/18/2018. FINDINGS: Patient has had previous trauma. The heart is nonenlarged. There is tortuosity of the aorta. There is chronic central vascular prominence with increased interstitial markings. There is no new consolidation or pleural fluid. IMPRESSION: Chronic changes with previous sternotomy and central vascular congestion and increased interstitial markings. No significant change from 03/18/2018. There is diffuse aortic tortuosity. Dictated by: Dictated on workstation # [id number]
== END ==
LOC: RAD 12:58
PROVIDERS: ATTEND Nurse Practitioner Family
DX: R05 Cough (principal); R09.89 Other specified symptoms and signs involving the circulatory and respiratory systems
CPT/HCPCS: 71046

== ENCOUNTER → 2020-11-16 | Outpatient (CLI) | payer MEDICARE, BC ==
[2020-11-16 15:02] LABS: BASOPHILS % (AUTO) 0 % (0-10); EOSINOPHILS # (AUTO) 0.2 10^3/uL (0.0-0.3); EOSINOPHILS % (AUTO) 2 % (0-10); HEMATOCRIT 43 % (40-54); HEMOGLOBIN 14.6 g/dL (13.3-17.7); LYMPHOCYTES # (AUTO) 2.1 10^3/uL (1.0-4.0); LYMPHOCYTES % (AUTO) 21 % (12-44); MEAN CORPUSCULAR HEMOGLOBIN 36 pg (25-34); MEAN CORPUSCULAR HGB CONC 34 g/dL (32-36); MEAN CORPUSCULAR VOLUME 105 fL (80-99); MONOCYTES # (AUTO) 0.8 10^3/uL (0.0-1.0); MONOCYTES % (AUTO) 8 % (0-12); NEUTROPHILS # (AUTO) 6.9 10^3/uL (1.8-7.8); NEUTROPHILS % (AUTO) 68 % (42-75); PLATELET COUNT 172 10^3/uL (130-400); WHITE BLOOD COUNT 10.1 10^3/uL (4.3-11.0)
[2020-11-16 15:19] LABS: ALBUMIN 3.9 GM/DL (3.2-4.5); BILIRUBIN,TOTAL 0.7 MG/DL (0.1-1.0); CALCIUM 9.4 MG/DL (8.5-10.1); CREATININE SERUM 1.05 MG/DL (0.60-1.30); POTASSIUM 4.6 MMOL/L (3.6-5.0); TOTAL PROTEIN 6.7 GM/DL (6.4-8.2)
== END ==
LOC: ONC 14:51
PROVIDERS: ATTEND Internal Medicine Hematology & Oncology
DX: C43.62 Malignant melanoma of left upper limb, including shoulder (principal); I10 Essential (primary) hypertension; J44.9 Chronic obstructive pulmonary disease, unspecified; I25.10 Atherosclerotic heart disease of native coronary artery without angina pectoris; E11.9 Type 2 diabetes mellitus without complications; E03.9 Hypothyroidism, unspecified; E78.2 Mixed hyperlipidemia; I48.0 Paroxysmal atrial fibrillation; G47.33 Obstructive sleep apnea (adult) (pediatric); R91.1 Solitary pulmonary nodule; F17.200 Nicotine dependence, unspecified, uncomplicated; Z85.46 Personal history of malignant neoplasm of prostate; Z98.890 Other specified postprocedural states
CPT/HCPCS: 80053; 83615; 85025; G0463; 99213

== ENCOUNTER 2021-02-17 10:47 | Emergency (ER) | payer MEDICARE, BC ==
[~2021-02-17] VITALS: Ht 183 cm; Wt 97.5 kg
[2021-02-17 11:27] VITALS: BP 130/72
[2021-02-17] MEDS ORDERED: VALA10004 PO (11:36)
[2021-02-17] MEDS ORDERED: PRED10TA22 PO (11:36)
--- NOTE | 2021-02-17 11:36 | ED General ---
General Stated Complaint: RASH ON BACK Source of Information: Patient Exam Limitations: No Limitations (MELIZA DELGADO APRN) History of Present Illness Date Seen by Provider: Feb 17, 2021 Time Seen by Provider: 11:33 Initial Comments To ER accompanied by his with reports of a rash to the right side of his back. This started at the midline a few days ago and has progressively spread following the same dermatome along the right side of his abdomen and out the lateral thorax. It itches but noriega when he touches it. He has had the shingles vaccine. Timing/Duration: 3-4 Days Severity: Moderate Associated Systoms: Denies Symptoms (MELIZA DELGADO APRN) Allergies and Home Medications Allergies Coded Allergies: No Known Drug Allergies (Verified , 02/23/08) Patient Home Medication List Home Medication List Reviewed: Yes (MELIZA DELGADO APRN) Allopurinol (Allopurinol) 100 Mg Tablet, 200 MG PO DAILY, (Reported) Entered as Reported by: JOEN GOINS on 11/26/17 0851 Allopurinol (Allopurinol) 100 Mg Tablet, 100 MG PO HS, (Reported) Entered as Reported by: JONE GOINS on 11/26/17 0852 Apixaban (Eliquis) 5 Mg Tablet, 5 MG PO BID, (Reported) Entered as Reported by: JONE GOINS on 03/16/18 1003 Aspirin (Aspirin EC) 81 Mg Tablet.dr, 81 MG PO HS, (Reported) Entered as Reported by: CONCHA HUANG on 02/13/18 1611 Atorvastatin Calcium (Atorvastatin Calcium) 40 Mg Tablet, 40 MG PO DAILY, (Repo rted) Entered as Reported by: FAUSTINA GARCIA on 10/22/19 1654 Calcium Carbonate/Vitamin D3 (Calcium 600 + Vit D Caplet) 1 Each Tablet, 1 TAB PO HS, (Reported) Entered as Reported by: CONCHA HUANG on 02/13/18 1611 Doxazosin Mesylate (Doxazosin Mesylate) 4 Mg Tablet, 4 MG PO HS, (Reported) Entered as Reported by: JONE GOINS on 11/26/17 0855 Flaxseed Oil (Flax Seed Oil) 1,000 Mg Capsule, 3,500 MG PO HS, (Reported) Entered as Reported by: JONE GOINS on 11/26/17 0902 Furosemide (Furosemide) 20 Mg Tablet, 20 MG PO PRN, (Reported) Entered as Reported by: ROJELIO PORTER on 10/22/19 0758 Levothyroxine Sodium (Levothyroxine Sodium) 50 Mcg Tablet, 50 MCG PO DAILY, (Reported) Entered as Reported by: CONCHA HUANG on 02/13/18 1611 Lisinopril (Lisinopril) 5 Mg Tablet, 2.5 MG PO BID, (Reported) Entered as Reported by: CONCHA HUANG on 02/13/18 161 Magnesium Oxide (Magnesium) 400 Mg Tablet, 200 MG PO BID, (Reported) Entered as Reported by: JONE GOINS on 03/16/18 1005 Metoprolol Succinate (Metoprolol Succinate) 25 Mg Tab.er.24h, 50 MG PO DAILY, (Reported) Entered as Reported by: CONCHA HUANG on 02/13/18 161 Multivitamin (Multi-Vitamin Daily) 1 Each Tablet, 0.5 EACH PO BID, (Reported) Entered as Reported by: JONE GOINS on 03/16/18 1007 Pantoprazole Sodium (Pantoprazole Sodium) 40 Mg Tablet.dr, 40 MG PO DAILY, (Reported) Entered as Reported by: CONCHA HUANG on 02/13/18 161 Potassium Chloride (Klor-Con 10) 10 Meq Tablet.er, 99 MEQ PO DAILY, (Reported) Entered as Reported by: ROJELIO PORTER on 10/22/19 0758 Prednisone (Prednisone) 20 Mg Tab, 1 TAB PO DAILY Prescribed by: RADHA MELISSA on 03/18/18 1107 Prednisone (Prednisone) 10 Mg Tab.ds.pk, 10 MG PO DAILY Prescribed by: MELIZA DELGADO on 02/17/21 1136 Ranolazine (Ranexa) 1,000 Mg Tab.er.12h, 1,000 MG PO BID, (Reported) Entered as Reported by: JONE GOINS on 11/26/17 0901 Valacyclovir HCl (Valtrex) 1,000 Mg Tablet, 1,000 MG PO TID Prescribed by: MELIZA DELGADO on 02/17/21 1136 Review of Systems Review of Systems Constitutional: see HPI EENTM: see HPI Respiratory: no symptoms reported Cardiovascular: no symptoms reported Genitourinary: no symptoms reported Musculoskeletal: no symptoms reported Skin: no symptoms reported Psychiatric/Neurological: No Symptoms Reported Hematologic/Lymphatic: No Symptoms Reported (MELIZA DELGADO APRN) Past Vfdaphu-Ppbwip-Luowel Hx Immunizations Up To Date Tetanus Booster (TDap): More than 5yrs (MELIZA DELGADO APRN) Seasonal Allergies Seasonal Allergies: No (MELIZA DELGADO APRN) Past Medical History Surgeries: Yes (SPINE, HERNIA, PROSTATE, ) Abdominal, CABG, Orthopedic, Prostatectomy Respiratory: Yes Sleep Apnea Currently Using CPAP: Yes Currently Using BIPAP: No Cardiac: Yes Atrial Fibrillation, Coronary Artery Disease, High Cholesterol, Hypertension Neurological: No Reproductive Disorders: No Genitourinary: Yes (PROSTATE CANCER) Prostate Problems Gastrointestinal: Yes Abdominal Hernia, Gastroesophageal Reflux Musculoskeletal: Yes Arthritis, Chronic Back Pain, Gout Endocrine: Yes Hypothyroidsim HEENT: No Cancer: Yes Prostate, Skin Did You Recieve Any Treatments: Yes What Type of Treatment Did You: Radiation, Surgical Intervention Psychosocial: No Integumentary: No Blood Disorders: No Adverse Reaction/Blood Tranf: No (MELIZA DELGADO APRN) Family Medical History Cardiovascular disease 19 MOTHER Myocardial infarction 19 FATHER No Pertinent Family Hx (MELIZA DELGADO APRN) Physical Exam Vital Signs Vital Signs - First Documented 02/17/21 11:27 Temp 36.2 Pulse 70 Resp 18 B/P (MAP) 130/72 (91) Pulse Ox 95 O2 Delivery Room Air (RADHA MACKEY MD) Vital Signs Capillary Refill : (MELIZA DELGADO APRN) Height, Weight, BMI Height: 6'0.00" Weight: 213lbs. 0.0oz. 96.422155xi; 29.00 BMI Method:Stated General Appearance: No Apparent Distress, WD/WN Eyes: Bilateral Eye Normal Inspection, Bilateral Eye PERRL, Bilateral Eye EOMI Neck: Full Range of Motion, Normal Inspection Respiratory: No Accessory Muscle Use, No Respiratory Distress Cardiovascular: Regular Rate, Rhythm, Normal Peripheral Pulses Gastrointestinal: Normal Bowel Sounds, Non Tender, Soft Extremity: Normal Capillary Refill, Normal Inspection Neurologic/Psychiatric: Alert, Oriented x3 Skin: Normal Color, Warm/Dry, Other (Erythematous cluster of papules to the midline of the back and following the same dermatome there are a few more clusters extending laterally around the thorax) (MELIZA DELGADO APRN) Progress/Results/Core Measures Suspected Sepsis SIRS Temperature: Pulse: Respiratory Rate: Blood Pressure / Mean: (MELIZA DELGADO APRN) Results/Orders Vital Signs/I&O 02/17/21 11:27 Temp 36.2 Pulse 70 Resp 18 B/P (MAP) 130/72 (91) Pulse Ox 95 O2 Delivery Room Air (RADHA MACKEY MD) Vital Signs/I&O Capillary Refill : (MELIZA DELGADO APRN) Departure Impression Primary Impression: [place] Disposition: HOME, SELF-CARE Condition: Stable Departure-Patient Inst. Decision time for Depature: 11:35 (MELIZA DELGADO APRN) Referrals: FARRUKH SCOTT MD (PCP/Family) Primary Care Physician Patient Instructions: [place] (DC) Add. Discharge Instructions: 1. Follow-up with your doctor next week 2. Take medication as directed. Scripts Prednisone (Prednisone) 10 Mg Tab.ds.pk 10 MG PO DAILY, #21 EA Take 6 tabs(60mg)daily,decrease by 1 tab(10MG)daily. Prov: MELIZA DELGADO APRN 02/17/21 Valacyclovir HCl (Valtrex) 1,000 Mg Tablet 1000 MG PO TID, #21 TAB Prov: MELIZA DELGADO APRN 02/17/21 ATTENDING PHYSICIAN NOTE: I was physically present as attending physician in the emergency department during the care of this patient, but I was not directly involved in the decision making or delivery of care for this patient. (RADHA MACKEY MD) MELIZA DELGADO APRN Feb 17, 2021 11:36 RADHA MACKEY MD Feb 17, 2021 18:53
== END 2021-02-17 11:48 | disposition home or self-care (01) ==
LOC: EDUNIT# 10:47 → ER 10:48
DX: B02.9 Zoster without complications (principal); G47.30 Sleep apnea, unspecified; I10 Essential (primary) hypertension; K21.9 Gastro-esophageal reflux disease without esophagitis; E03.9 Hypothyroidism, unspecified; M10.9 Gout, unspecified; I48.91 Unspecified atrial fibrillation; E78.00 Pure hypercholesterolemia, unspecified; I25.10 Atherosclerotic heart disease of native coronary artery without angina pectoris; Z79.01 Long term (current) use of anticoagulants; Z79.82 Long term (current) use of aspirin; Z79.899 Other long term (current) drug therapy; Z79.890 Hormone replacement therapy; Z79.52 Long term (current) use of systemic steroids
CPT/HCPCS: 99281

== ENCOUNTER 2021-02-20 05:15 | Observation (INO) | payer MEDICARE, BC ==
[~2021-02-20] VITALS: Ht 182 cm; Wt 101.2 kg
[~2021-02-20 05:15] MED LIST changes: +PRED10TA22 PO; +VALA10004 PO
[2021-02-20] MEDS ORDERED: morphine INJ 10 MG/ML 1ML (SYR OR VIAL) IVP STA (05:26)
--- NOTE | 2021-02-20 05:34 | ED Chest Pain ---
General Chief Complaint: Chest Pain Stated Complaint: CP Source: patient, EMS Exam Limitations: no limitations (JERE FRANKLIN) History of Present Illness Date Seen by Provider: Feb 20, 2021 Time Seen by Provider: 05:15 Initial Comments The patient presents to the ER by EMS from home with chief complaint that he had stayed up watching some TV and about 4:00 in the morning, hour and 15 minutes prior to arrival he went to the bathroom and on his way back from the bathroom he started having some chest pain 3 out of 10 accompanied with left elbow and left middle 2 fingers 5 out of 10 pain. Patient states she is never had a heart attack before but he does have a history of CABG, atrial fibrillation on Eliquis and followed by Dr. Subramanian. He says prior to having the CABG he had similar symptoms with left elbow pain and finger pain. Pain is worse with exertion. He was not initially having any shortness of air but he says he is starting to have a little bit. He does not require supplemental oxygen nor does he have a history of COPD or asthma. He is an occasional smoker. He is not having any nausea fever chills cough diarrhea or constipation. He has a history of hypertension hyperlipidemia and is on Synthroid. He denies a history of diabetes. Patient states he took 325 mg aspirin and allowed it to dissolve under his tongue around 415. EMS reports they gave him 3 more 81 mg tablets of aspirin on route. Patient declines any nitroglycerin stating he would rather than experienced a headache that nitroglycerin causes. Echocardiogram from 2019 demonstrates EF of 40 to 45% and hypokinesis of the apical myocardium with grade 1 diastolic dysfunction. Cardiac catheterization by Dr. Martines 2016 demonstrates patent RODRIGUEZ to the LAD. Severe stenosis of the ostium of the left subclavian artery. Successful stenting to the ostium of the left subclavian artery. (JERE FRANKLIN) Allergies and Home Medications Allergies Coded Allergies: No Known Drug Allergies (Verified , 02/23/08) Patient Home Medication List Home Medication List Reviewed: Yes (JERE FRANKLIN) Allopurinol (Allopurinol) 100 Mg Tablet, 200 MG PO DAILY, (Reported) Entered as Reported by: JONE GOINS on 11/26/17 0851 Last Action: Continued Allopurinol (Allopurinol) 100 Mg Tablet, 100 MG PO HS, (Reported) Entered as Reported by: JONE GOINS on 11/26/17 0852 Last Action: Reviewed Apixaban (Eliquis) 5 Mg Tablet, 5 MG PO BID, (Reported) Entered as Reported by: JONE GOINS on 03/16/18 1003 Last Action: Continued Ascorbic Acid (Vitamin C with Adrienne Hips) 1,000 Mg Tablet, 1,000 MG PO DAILY, (Reported) Entered as Reported by: BHANU SIMONS on 02/20/211208 Last Action: Reviewed Aspirin (Aspirin EC) 81 Mg Tablet.dr, 81 MG PO HS, (Reported) Entered as Reported by: CONCHA HUANG on 02/13/18 1611 Last Action: Reviewed Atorvastatin Calcium (Atorvastatin Calcium) 40 Mg Tablet, 40 MG PO HS, (Reported) Entered as Reported by: FAUSTINA GARCIA on 10/22/19 1654 Last Action: Continued Calcium Carbonate/Vitamin D3 (Calcium 600 + Vit D 200 Tablet) 1 Each Tablet, 1 EACH PO DAILY, (Reported) Entered as Reported by: BHANU SIMONS on 02/20/211208 Last Action: Reviewed Cholecalciferol (Vitamin D3) (Vitamin D3) 125 Mcg Capsule, 125 MCG PO BID, (Reported) Entered as Reported by: BHANU SIMONS on 02/20/211208 Last Action: Reviewed Doxazosin Mesylate (Doxazosin Mesylate) 4 Mg Tablet, 4 MG PO HS, (Reported) Entered as Reported by: JONE GOINS on 11/26/17 0855 Last Action: Continued Dronedarone HCl (Multaq) 400 Mg Tablet, 400 MG PO BID, (Reported) Entered as Reported by: BHANU SIMONS on 02/20/211208 Last Action: Continued Fish Oil/Dha/Epa (Fish Oil 1,200 mg Fish Oil) 1 Each Capsule, 1 EACH PO HS, (Reported) Entered as Reported by: BHANU SIMONS on 02/20/211208 Last Action: Reviewed Furosemide (Furosemide) 20 Mg Tablet, 20 MG PO DAILY PRN for FLUID RETENTION, (Reported) Entered as Reported by: ROJELIO PORTER on 10/22/19 3663 Last Action: Continued Hydrocodone/Acetaminophen (Hydrocodone-Acetamin 10-325 mg) 1 Each Tablet, 1 EA PO Q6H PRN for PAIN-MODERATE (5-7), (Reported) Entered as Reported by: BHANU SIMONS on 02/20/211208 Last Action: Reviewed Levothyroxine Sodium (Levothyroxine Sodium) 50 Mcg Tablet, 50 MCG PO DAILY, (Reported) Entered as Reported by: CONCHA HUANG on 02/13/181610 Last Action: Continued Lisinopril (Lisinopril) 2.5 Mg Tablet, 2.5 MG PO DAILY, (Reported) Entered as Reported by: BHANU SIMONS on 02/20/211208 Last Action: Converted Magnesium Oxide (Magnesium) 400 Mg Tablet, 400 MG PO HS, (Reported) Entered as Reported by: JONE GOINS on 03/16/18 100 Last Action: Reviewed Metoprolol Succinate (Metoprolol Succinate) 50 Mg Tab.er.24h, 50 MG PO HS, (Reported) Entered as Reported by: BHANU SIMONS on 02/20/211208 Last Action: Continued Multivit-Min/FA/Lycopene/Lut (Centrum Silver Ultra Men's Tab) 1 Each Tablet, 0.5 EACH PO BID, (Reported) Entered as Reported by: BHANU SIMONS on 02/20/211208 Last Action: Reviewed [place]-3 Fatty Acids/Fish Oil ([place] 3 Fish Oil Softgel) 1 Each Capsule.dr, 1 EACH PO DAILY, (Reported) Entered as Reported by: BHANU SIMONS on 02/20/211208 Last Action: Reviewed Pantoprazole Sodium (Pantoprazole Sodium) 40 Mg Tablet.dr, 40 MG PO DAILY, (Reported) Entered as Reported by: CONCHA HUANG on 02/13/181610 Last Action: Reviewed Prednisone (Prednisone) 10 Mg Tab.ds.pk, MG PO DAILY, (Reported) Entered as Reported by: BHANU SIMONS on 02/20/211208 Last Action: Reviewed Ranolazine (Ranolazine ER) 1,000 Mg Tab.er.12h, 1,000 MG PO BID, (Reported) Entered as Reported by: BHANU SIMONS on 02/20/211208 Last Action: Converted Valacyclovir HCl (Valacyclovir) 1,000 Mg Tablet, 1,000 MG PO TID, (Reported) Entered as Reported by: BHANU SIMONS on 02/20/21 120 Last Action: Converted Vitamin B Complex (B Complex) 1 Each Tablet, 1 EACH PO HS, (Reported) Entered as Reported by: BHANU SIMONS on 02/20/21 120 Last Action: Reviewed Zinc (Zinc) 50 Mg Tablet, 50 MG PO HS, (Reported) Entered as Reported by: BHANU SIMONS on 02/20/21 120 Last Action: Reviewed Discontinued Medications Flaxseed Oil (Flax Seed Oil) 1,000 Mg Capsule, 3,500 MG PO HS, (Reported) Discontinued Reason: No Longer Taking Entered as Reported by: JONE GOINS on 11/26/17 0902 Last Action: Discontinued Lisinopril (Lisinopril) 5 Mg Tablet, 2.5 MG PO BID, (Reported) Discontinued Reason: Duplicate Order Entered as Reported by: CONCHA HUANG on 02/13/18 161 Last Action: Discontinued Metoprolol Succinate (Metoprolol Succinate) 25 Mg Tab.er.24h, 50 MG PO DAILY, (Reported) Discontinued Reason: Duplicate Order Entered as Reported by: CONCHA HUANG on 02/13/18 161 Last Action: Discontinued Multivitamin (Multi-Vitamin Daily) 1 Each Tablet, 0.5 EACH PO BID, (Reported) Discontinued Reason: Prescription changed Entered as Reported by: JONE GOINS on 03/16/18 1007 Potassium Chloride (Klor-Con 10) 10 Meq Tablet.er, 99 MEQ PO DAILY, (Reported) Discontinued Reason: No Longer Taking Entered as Reported by: ROJELIO PORTER on 10/22/19 0758 Last Action: Discontinued Prednisone (Prednisone) 20 Mg Tab, 1 TAB PO DAILY Discontinued Reason: No Longer Taking Prescribed by: RADHA MELISSA on 03/18/18 1107 Last Action: Discontinued Prednisone (Prednisone) 10 Mg Tab.ds.pk, 10 MG PO DAILY Discontinued Reason: Duplicate Order Prescribed by: MELIZA DELGADO on 02/17/21 1136 Last Action: Discontinued Ranolazine (Ranexa) 1,000 Mg Tab.er.12h, 1,000 MG PO BID, (Reported) Discontinued Reason: Duplicate Order Entered as Reported by: JONE GOINS on 11/26/17 0901 Last Action: Discontinued Valacyclovir HCl (Valtrex) 1,000 Mg Tablet, 1,000 MG PO TID Discontinued Reason: Duplicate Order Prescribed by: MELIZA DELGADO on 02/17/21 1136 Last Action: Discontinued Review of Systems Review of Systems Constitutional: No chills, No diaphoresis EENTM: No Blurred Vision, No Double Vision Respiratory: Denies Cough, Denies Shortness of Air Cardiovascular: See HPI, Chest Pain; Denies Lightheadedness, Denies Palpitations, Denies Syncope Gastrointestinal: Denies Abdominal Pain, Denies Constipated, Denies Diarrhea, Denies Nausea Genitourinary: Denies Burning, Denies Discharge Musculoskeletal: see HPI; No back pain, No joint pain Skin: rash (Diagnosed in the last week or 2 of shingles.) (JERE FRANKLIN) All Other Systems Reviewed Negative Unless Noted: Yes (JERE FRANKLIN) Past Qwrzvfa-Vorgwn-Bhtgqy Hx Patient Social History Tobacco Use?: Yes Tobacco type used: Cigarettes Substance use?: No Alcohol Use?: No Pt feels they are or have been: No (JERE FRANKLIN) Immunizations Up To Date Tetanus Booster (TDap): More than 5yrs First/Initial COVID19 Vaccinat: July 05, 2020 Second COVID19 Vaccination Toan: JULY 2020 COVID19 Vaccine Devil Dog: silva (JERE FRANKLIN) Seasonal Allergies Seasonal Allergies: No (JERE FRANKLIN) Past Medical History Surgery/Hospitalization HX: TRIPLE BYPASS, SPINAL FUSION, PROSTATE CANCER, hernia, shingles, gout, cad, afib,hypothryoidism, high lipids, gerd, Surgeries: Yes (SPINE, HERNIA, PROSTATE, ) Abdominal, CABG, Orthopedic, Prostatectomy Respiratory: Yes Sleep Apnea Currently Using CPAP: Yes Currently Using BIPAP: No Cardiac: Yes Atrial Fibrillation, Coronary Artery Disease, High Cholesterol, Hypertension Neurological: No Reproductive Disorders: No Genitourinary: Yes (PROSTATE CANCER) Prostate Problems Gastrointestinal: Yes Abdominal Hernia, Gastroesophageal Reflux Musculoskeletal: Yes Arthritis, Chronic Back Pain, Gout Endocrine: Yes Hypothyroidsim HEENT: No Cancer: Yes Prostate, Skin Did You Recieve Any Treatments: Yes What Type of Treatment Did You: Radiation, Surgical Intervention Psychosocial: No Integumentary: No Blood Disorders: No Adverse Reaction/Blood Tranf: No (JERE FRANKLIN) Family Medical History Cardiovascular disease 19 MOTHER Myocardial infarction 19 FATHER No Pertinent Family Hx (JERE FRANKLIN) Physical Exam Vital Signs Vital Signs - First Documented 02/20/21 05:18 Temp 36.8 Pulse 95 Resp 18 B/P (MAP) 204/125 (151) Pulse Ox 95 O2 Delivery Room Air (GABBY BROOKS MD) Vital Signs Capillary Refill : Less Than 3 Seconds (JERE FRANKLIN) Height, Weight, BMI Height: 6'0.00" Weight: 213lbs. 0.0oz. 96.337090pt; 29.00 BMI Method:Stated General Appearance: WD/WN, Mild Distress HEENT: PERRL/EOMI, Pharynx Normal, Moist Mucous Membranes Neck: Full Range of Motion, Normal Inspection, Non Tender Respiratory: Chest Non Tender, Lungs Clear, Normal Breath Sounds, No Accessory Muscle Use, No Respiratory Distress Cardiovascular: Regular Rate, Rhythm, No Edema, Normal Peripheral Pulses Gastrointestinal: Non Tender, Soft Extremity: Normal Capillary Refill, Normal Inspection, No Pedal Edema Neurologic/Psychiatric: Alert, Oriented x3, No Motor/Sensory Deficits Skin: Normal Color, Warm/Dry (JERE FRANKLIN) Progress/Results/Core Measures Results/Orders Lab Results Laboratory Tests Test 02/20/21 05:24 02/20/21 05:30 Range/Units White Blood Count 12.0 H 4.3-11.0 10^3/uL Red Blood Count 4.06 L 4.30-5.52 10^6/uL Hemoglobin 14.7 13.3-17.7 g/dL Hematocrit 43 40-54 % Mean Corpuscular Volume 105 H 80-99 fL Mean Corpuscular Hemoglobin 36 H 25-34 pg Mean Corpuscular Hemoglobin Concent 35 32-36 g/dL Red Cell Distribution Width 13.5 10.0-14.5 % Platelet Count 202 130-400 10^3/uL Mean Platelet Volume 9.4 9.0-12.2 fL Immature Granulocyte % (Auto) 2 % Neutrophils (%) (Auto) 77 H 42-75 % Lymphocytes (%) (Auto) 14 12-44 % Monocytes (%) (Auto) 6 0-12 % Eosinophils (%) (Auto) 0 0-10 % Basophils (%) (Auto) 0 0-10 % Neutrophils # (Auto) 9.3 H 1.8-7.8 10^3/uL Lymphocytes # (Auto) 1.7 1.0-4.0 10^3/uL Monocytes # (Auto) 0.7 0.0-1.0 10^3/uL Eosinophils # (Auto) 0.0 0.0-0.3 10^3/uL Basophils # (Auto) 0.0 0.0-0.1 10^3/uL Immature Granulocyte # (Auto) 0.2 H 0.0-0.1 10^3/uL Prothrombin Time 14.1 12.2-14.7 SEC INR Comment 1.1 0.8-1.4 Activated Partial Thromboplast Time 26 24-35 SEC Sodium Level 139 135-145 MMOL/L Potassium Level 4.4 3.6-5.0 MMOL/L Chloride Level 105 98-107 MMOL/L Carbon Dioxide Level 20 L 21-32 MMOL/L Anion Gap 14 5-14 MMOL/L Blood Urea Nitrogen 17 7-18 MG/DL Creatinine 0.95 0.60-1.30 MG/DL Estimat Glomerular Filtration Rate 76 BUN/Creatinine Ratio 18 Glucose Level 145 H 70-105 MG/DL Calcium Level 9.1 8.5-10.1 MG/DL Corrected Calcium 8.9 8.5-10.1 MG/DL Magnesium Level 1.9 1.6-2.4 MG/DL Total Bilirubin 0.3 0.1-1.0 MG/DL Aspartate Amino Transf (AST/SGOT) 29 5-34 U/L Alanine Aminotransferase (ALT/SGPT) 23 0-55 U/L Alkaline Phosphatase 88 40-136 U/L Myoglobin 86.5 10.0-92.0 NG/ML Troponin I < 0.028 <0.028 NG/ML B-Type Natriuretic Peptide 163.9 H <100.0 PG/ML Total Protein 7.2 6.4-8.2 GM/DL Albumin 4.3 3.2-4.5 GM/DL Lipase 37 8-78 U/L Urine Color YELLOW Urine Clarity CLEAR Urine pH 6.0 5-9 Urine Specific Strang >=1.030 1.016-1.022 Urine Protein NEGATIVE NEGATIVE Urine Glucose (UA) NEGATIVE NEGATIVE Urine Ketones NEGATIVE NEGATIVE Urine Nitrite NEGATIVE NEGATIVE Urine Bilirubin NEGATIVE NEGATIVE Urine Urobilinogen 0.2 < = 1.0 MG/DL Urine Leukocyte Esterase NEGATIVE NEGATIVE Urine RBC (Auto) NEGATIVE NEGATIVE Urine RBC 0-2 /HPF Urine WBC 0-2 /HPF Urine Crystals NONE /LPF Urine Bacteria NEGATIVE /HPF Urine Casts NONE /LPF Urine Mucus NEGATIVE /LPF Urine Culture Indicated NO (GABBY BROOKS MD) Vital Signs/I&O 02/20/21 05:18 Temp 36.8 Pulse 95 Resp 18 B/P (MAP) 204/125 (151) Pulse Ox 95 O2 Delivery Room Air (GABBY BROOKS MD) Progress Progress Note : Time: 05:36 Progress Note Since the patient declined nitroglycerin and he has significantly elevated blood pressure around 200 systolic we will give him 4 of morphine and reexamine. No evidence of hypoxemia on his vital signs. He is not having any labored breathing. Labs including a BNP given his history of heart failure and coronary disease. Initial EKG fails to reveal any relevant ST elevation or depression. (JERE FRANKLIN) Progress Note : Time: 06:23 Progress Note Patient re-evaluated, states his pain is down to a "1", he still has some pain in his left middle fingers. Morphine helped. I offered him a little more and he declined. VSS. Discussed observation admission with the patient and his and he is agreeable. (GABBY BROOKS MD) Initial ECG Impression Date: Feb 20, 2021 Initial ECG Impression Time: 05:20 Initial ECG Rate: 94 Initial ECG Rhythm: Normal Sinus Initial ECG Intervals: Normal Initial ECG Impression: Normal, Nonspecific Changes Initial ECG Comparisson: Unchanged Comment Normal sinus rhythm with no clinically relevant ST changes. (JERE FRANKLIN) Diagnostic Imaging Diagonstic Imaging: Xray Plain Films/CT/US/NM/MRI: chest Comments [facility]. [place], [place] NAME: TENISHA ESCAMILLA [facility] REC#: [id number] PT STATUS: ADM Neda : 1940 PHYSICIAN: JERE FRANKLIN MD ADMIT DATE: 02/20/21/[facility] Signed Date of Exam:02/20/21 CHEST 1 VIEW, AP/PA ONLY INDICATION: Left-sided chest wall pain. TECHNIQUE: Single view chest 5:46 AM. CORRELATION STUDY: 09/12/2020 FINDINGS: Prior sternotomy with multiple interrupted sternal wires. Loop recorder device left lower heart. Heart size enlarged and there is presence of pulmonary vascular congestion and perihilar edema. Prominent interstitial markings are noted. Small patchy opacities are present reflective of edema. Surgical clips over the left axilla. IMPRESSION: 1. Findings of congestive heart failure, adversely changed from prior. Prominent interstitial markings likely edema. Dictated by: Dictated on workstation # [id number] Dict: 02/20/21 0559 Trans: 02/20/21 1120 [facility] [id number] Interpreted by: TUCKER CUMMINGS DO Electronically signed by: TUCKER CUMMINGS DO 02/20/21 1120 Reviewed: Reviewed by Me (JERE FRANKLIN) Departure Communication (Admissions) Time/Spoke to Admitting Phy: 07:[address] Baeza Time/Spoke to Consulting Phy: 07:[address] Davenport; cardiac Stepdown, notify Dr Subramanian on the floor (GABBY BROOKS MD) Impression Primary Impression: Chest pain Qualified Codes: R07.89 - Other chest pain Additional Impression: History of coronary artery disease Disposition: ADMITTED INPATIENT Condition: Stable Admissions Decision to Admit Reason: Admit from ER (General) Decision to Admit/Date: Feb 20, 2021 Time/Decision to Admit Time: 07:06 (GABBY BROOKS MD) Departure-Patient Inst. Referrals: FARRUKH BAEZA MD (PCP/Family) Primary Care Physician JERE FRANKLIN Feb 20, 2021 05:34 GABBY BROOKS MD Feb 20, 2021 06:32
[2021-02-20 05:35] LABS: BASOPHILS % (AUTO) 0 % (0-10); EOSINOPHILS % (AUTO) 0 % (0-10); HEMATOCRIT 43 % (40-54); HEMOGLOBIN 14.7 g/dL (13.3-17.7); LYMPHOCYTES # (AUTO) 1.7 10^3/uL (1.0-4.0); LYMPHOCYTES % (AUTO) 14 % (12-44); MEAN CORPUSCULAR HEMOGLOBIN 36 pg (25-34); MEAN CORPUSCULAR HGB CONC 35 g/dL (32-36); MEAN CORPUSCULAR VOLUME 105 fL (80-99); MEAN PLATELET VOLUME 9.4 fL (9.0-12.2); MONOCYTES # (AUTO) 0.7 10^3/uL (0.0-1.0); MONOCYTES % (AUTO) 6 % (0-12); NEUTROPHILS # (AUTO) 9.3 10^3/uL (1.8-7.8); NEUTROPHILS % (AUTO) 77 % (42-75); PLATELET COUNT 202 10^3/uL (130-400)
[2021-02-20 05:43] LABS: BILIRUBIN,URINE NEGATIVE (NEGATIVE); CLARITY,URINE CLEAR; COLOR,URINE YELLOW; GLUCOSE, URINE (UA) NEGATIVE (NEGATIVE); KETONES,URINE NEGATIVE (NEGATIVE); LEUKOCYTE ESTERASE ,URINE NEGATIVE (NEGATIVE); NITRITE,URINE NEGATIVE (NEGATIVE); PROTEIN,URINE NEGATIVE (NEGATIVE)
[2021-02-20 05:46] LABS: ALBUMIN 4.3 GM/DL (3.2-4.5); POTASSIUM 4.4 MMOL/L (3.6-5.0)
[2021-02-20 05:47] LABS: CALCIUM 9.1 MG/DL (8.5-10.1)
[2021-02-20 05:48] LABS: INR 1.1 (0.8-1.4); PROTHROMBIN TIME PATIENT 14.1 SEC (12.2-14.7); TOTAL PROTEIN 7.2 GM/DL (6.4-8.2)
[2021-02-20 05:50] LABS: BILIRUBIN,TOTAL 0.3 MG/DL (0.1-1.0)
[2021-02-20 05:52] LABS: CREATININE SERUM 0.95 MG/DL (0.60-1.30)
[2021-02-20 05:53] LABS: BACTERIA,URINE NEGATIVE /HPF; RBC,URINE 0-2 /HPF; WBC,URINE 0-2 /HPF
[2021-02-20 05:55] LABS: MAGNESIUM 1.9 MG/DL (1.6-2.4)
--- NOTE | 2021-02-20 08:20 | Diagnostic Imaging Report ---
INDICATION: Left-sided chest wall pain. TECHNIQUE: Single view chest 5:46 AM. CORRELATION STUDY: 09/12/2020 FINDINGS: Prior sternotomy with multiple interrupted sternal wires. Loop recorder device left lower heart. Heart size enlarged and there is presence of pulmonary vascular congestion and perihilar edema. Prominent interstitial markings are noted. Small patchy opacities are present reflective of edema. Surgical clips over the left axilla. IMPRESSION: 1. Findings of congestive heart failure, adversely changed from prior. Prominent interstitial markings likely edema. Dictated by: Dictated on workstation # [id number]
--- NOTE | 2021-02-20 08:29 | Consultation-Cardiology ---
HPI-Cardiology Cardiology Consultation Date of Consultation 02/20/21 Date of Admission Time Seen by Provider: 08:26 Indication: Chest pain HPI Patient is a 80 y/o male with history of PSVT/PAF, CAD with hx of CABG, known small vessel disease. Presented to the ER with complaints of chest pain, occurring this morning while walking to bathroom. Denies any active chest pain at this time. Denies any dizziness or lightheadedness. Diagnosed with shingles to right torso last week. Home Medications & Allergies Allergies: Coded Allergies: No Known Drug Allergies (Verified , 02/23/08) Home Medication List Reviewed: Yes [id number]-[id number] Hx Patient Social History Marital Status: Employed/Student: retired Type Used: Cigarettes 2nd Hand Smoke Exposure: Yes Recent Hopitalizations: No Have you traveled recently?: No Alcohol Use?: No Immunizations Up To Date Tetanus Booster (TDap): More than 5yrs Date of Pneumonia Vaccine: Nov 12, 2016 Date of Influenza Vaccine: Jan 31, 2021 Past Medical History CAD, PSVT, PAF, HTN Family Medical History Significant Family History: No Pertinent Family Hx Family History: Cardiovascular disease 19 MOTHER Myocardial infarction 19 FATHER Review of Systems-General Review of Systems Constitutional: see HPI; No chills, No diaphoresis; malaise EENTM: see HPI; No blurred vision, No double vision Respiratory: see HPI; No cough, No dyspnea on exertion Cardiovascular: see HPI, chest pain, Hx of Intervention, palpitations, vascular heart diseas Gastrointestinal: No abdominal pain Genitourinary: see HPI; No dysuria Musculoskeletal: see HPI; No back pain, No joint pain Skin: No lesions; rash (Diagnosed in the last week with shingles. Rash to right torso) All Other Systems Reviewed Negative Unless Noted: Yes Reviewed Test Results Reviewed Test Results Lab Laboratory Tests 02/20/21 05:24: White Blood Count 12.0H, Red Blood Count 4.06L, Hemoglobin 14.7, Hematocrit 43, Mean Corpuscular Volume 105H, Mean Corpuscular Hemoglobin 36H, Mean Corpuscular Hemoglobin Concent 35, Red Cell Distribution Width 13.5, Platelet Count 202, Mean Platelet Volume 9.4, Immature Granulocyte % (Auto) 2, Neutrophils (%) (Auto) 77H, Lymphocytes (%) (Auto) 14, Monocytes (%) (Auto) 6, Eosinophils (%) (Auto) 0, Basophils (%) (Auto) 0, Neutrophils # (Auto) 9.3H, Lymphocytes # (Auto) 1.7, Monocytes # (Auto) 0.7, Eosinophils # (Auto) 0.0, Basophils # (Auto) 0.0, Immature Granulocyte # (Auto) 0.2H, Prothrombin Time 14.1, INR Comment 1.1, Activated Partial Thromboplast Time 26, Sodium Level 139, Potassium Level 4.4, Chloride Level 105, Carbon Dioxide Level 20L, Anion Gap 14, Blood Urea Nitrogen 17, Creatinine 0.95, Estimat Glomerular Filtration Rate 76, BUN/Creatinine Ratio 18, Glucose Level 145H, Calcium Level 9.1, Corrected Calcium 8.9, Magnesium Level 1.9, Total Bilirubin 0.3, Aspartate Amino Transf (AST/SGOT) 29, Alanine Aminotransferase (ALT/SGPT) 23, Alkaline Phosphatase 88, Myoglobin 86.5, Troponin I < 0.028, B-Type Natriuretic Peptide 163.9H, Total Protein 7.2, Albumin 4.3, Lipase 37 02/20/21 05:30: Urine Color YELLOW, Urine Clarity CLEAR, Urine pH 6.0, Urine Specific [place] >=1.030, Urine Protein NEGATIVE, Urine Glucose (UA) NEGATIVE, Urine Ketones NEGATIVE, Urine Nitrite NEGATIVE, Urine Bilirubin NEGATIVE, Urine Urobilinogen 0.2, Urine Leukocyte Esterase NEGATIVE, Urine RBC (Auto) NEGATIVE, Urine RBC 0- 2, Urine WBC 0-2, Urine Crystals NONE, Urine Bacteria NEGATIVE, Urine Casts NONE, Urine Mucus NEGATIVE, Urine Culture Indicated NO ECG Impression ECG Initial ECG Rhythm: Normal Sinus Physical Exam Physical Exam Vital Signs Vital Signs - First Documented 02/20/21 05:18 Temp 36.8 Pulse 95 Resp 18 B/P (MAP) 204/125 (151) Pulse Ox 95 O2 Delivery Room Air Capillary Refill : Less Than 3 Seconds Height, Weight, BMI Height: 6'0.00" Weight: 213lbs. 0.0oz. 96.626802vh; 29.00 BMI Method:Stated General Appearance: WD/WN, Mild Distress HEENT: PERRL/EOMI, Pharynx Normal, Moist Mucous Membranes Neck: Full Range of Motion, Normal Inspection, Non Tender Respiratory: Chest Non Tender, Lungs Clear, Normal Breath Sounds, No Accessory Muscle Use, No Respiratory Distress Cardiovascular: Regular Rate, Rhythm, No Edema, Normal Peripheral Pulses Gastrointestinal: Non Tender, Soft Extremity: Normal Capillary Refill, Normal Inspection, No Pedal Edema Neurologic/Psychiatric: Alert, Oriented x3, No Motor/Sensory Deficits Skin: Normal Color, Warm/Dry A/P-Cardiology Admission Diagnosis Chest pain CAD PSVT PAF HTN Assessment/Plan Chest pain, history of chronic stable angina, having unstable angina, intolerant to nitroglycerin and isosorbide in the past with severe headache. Has been maintained on Ranexa. EKG did not show any acute problem Initial troponin was negative, repeat troponin is elevated. Mildly elevated BNP Conservative management is recommended no intervention is recommended at this point. Continue to monitor for chest pain and EKG changes. Supraventricular tachycardia, paroxysmal atrial flutter with rapid ventricular response, first documented on February 13, 2018 underwent JIMY with cardioversion. S/p ablation with Dr. Martines on 03/16/18. Asymptomatic. Started on Multaq, will continue to monitor History of loop monitor implant, interrogation showed occasional episodes of atrial fibrillation, showed episodes. Continue to monitor Coronary artery disease, status post CABG x3 in 2001. Cardiac catheterization done April 2016 revealing a difficult anatomy was unable to evaluate left coronary system done within the show left heart catheterization. Patent vein graft to the diagonal artery and obtuse marginal branch artery. Occluded small RCA with collateral filling the distal right from the left system. Another angiogram done on April 18, 2016 revealing patent RODRIGUEZ to LAD. Patient did have severe stenosis of the ostium of the left subclavian artery. Underwent stenting to the left subclavian artery. Stress test June 2018 revealed diaphragmatic attenuation with fixed defect involving the inferior wall and inferolateral wall prominent LV with diffuse LV hypokinesia, more pronounced at inferior wall CHF, chronic left ventricular systolic dysfunction, 2D echocardiogram done in May 2019 showed ejection fraction 40 to 45%, moderate MR, aortic valve sclerosis, PA 20 to 25 mmHg. I will reevaluate 2D Echo Shingle to right torso, recently diagnosed, management per medical services. Left subclavian artery stenosis-patient underwent left subclavian angiography with left subclavian balloon angioplasty and left subclavian stenting on 04/18/16 using Omnilink 08 stent 9 x 29 x 80 mm with lesion well covered in significant reduction in stenosis severity noted. There was 5-10 percent residue stenosis, however, there were a few stent struts protruding into the aortic arch. Maintained on Plavix and ASA. Continue to monitor Bilateral lower extremity pain. Reporting improvement, peripheral angiogram was done on November 26, 2017 which showed mild peripheral arterial disease, slightly tortuous iliac artery with no obstructive disease down to the foot and slightly ectatic abdominal aorta. Continue to monitor at this time Hypertension, labile hypertension, continue to monitor Hyperlipidemia, lipid profile done on December 07, 2020 showing total cholesterol 118, HDL 37, triglyceride 144, LDL 52. Continue to monitor Tobaccoism-educated on the importance of smoking cessation. Carotid artery stenosis-mild nonobstructive disease per carotid duplex done in April 2020, continue to monitor History of malignant melanoma, followed and managed by Dr. Nelson History of prostate cancer, followed and managed by Dr. Nelson. 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 Thank you for allowing us to participate in the management of Mr. Vargas. This is Yandy Mayer PA-C, as a scribe for Dr. Subramanian Patient was seen and evaluated with Yandy, examination performed, management plan was discussed, agree with the current scribed note, I made few changes to the note using Italic font Patient was feeling better, no active chest pain was reported First set of cardiac enzymes were negative, repeat troponin was elevated Continue with conservative management with aspirin and Plavix. Monitor EKG Clinical Quality Measures AMI/AHF: ASA po Prior to arrival: Yes YANDY HALE Feb 20, 2021 08:29 KAYLEY SUBRAMANIAN MD Feb 20, 2021 12:53
--- NOTE | 2021-02-20 08:41 | History & Physical ---
History of Present Illness History of Present Illness Reason for visit/HPI PT IS A 80 Y/O MALE WHO IS KNOWN TO ME FROM CLINIC - HE PRESENTED TO THE EMERGENCY DEPARTMENT THIS MORNING WITH CHEST PAIN, THAT PERSISTED AND WORSENED PRIOR TO PT SEEKING EVALUATION THROUGH THE EMERGENCY DEPARTMENT. HE HAD HX OF CORONARY ARTERY DISEASE, ATRIAL FIBRILLATION, HYPERTENSIVE HEART DISEASE WITH DECREASED EJECTION FRACTION. Date of Admission Feb 20, 2021 at 06:28 Date Seen by a Provider: Feb 20, 2021 Time Seen by a Provider: 09:00 Attending Physician Farrukh Baeza MD Admitting Physician Farrukh Baeza MD Consult CARDIOLOGY Allergies and Home Medications Allergies Coded Allergies: No Known Drug Allergies (Verified , 02/23/08) Patient Home Medication List Home Medication List Reviewed: Yes Allopurinol (Allopurinol) 100 Mg Tablet, 200 MG PO DAILY, (Reported) Entered as Reported by: JONE GOINS on 11/26/17 0851 Last Action: Continued Allopurinol (Allopurinol) 100 Mg Tablet, 100 MG PO HS, (Reported) Entered as Reported by: JONE GOINS on 11/26/17 0852 Last Action: Reviewed Apixaban (Eliquis) 5 Mg Tablet, 5 MG PO BID, (Reported) Entered as Reported by: JONE GOINS on 03/16/18 1003 Last Action: Continued Ascorbic Acid (Vitamin C with Adrienne Hips) 1,000 Mg Tablet, 1,000 MG PO DAILY, (Reported) Entered as Reported by: BHANU SIMONS on 02/20/21 1209 Last Action: Reviewed Aspirin (Aspirin EC) 81 Mg Tablet.dr, 81 MG PO HS, (Reported) Entered as Reported by: CONCHA HUANG on 02/13/18 1611 Last Action: Reviewed Atorvastatin Calcium (Atorvastatin Calcium) 40 Mg Tablet, 40 MG PO HS, (Reported) Entered as Reported by: FAUSTINA GARCIA on 10/22/19 1654 Last Action: Continued Calcium Carbonate/Vitamin D3 (Calcium 600 + Vit D 200 Tablet) 1 Each Tablet, 1 EACH PO DAILY, (Reported) Entered as Reported by: BHANU SIMONS on 02/20/21 1209 Last Action: Reviewed Cholecalciferol (Vitamin D3) (Vitamin D3) 125 Mcg Capsule, 125 MCG PO BID, (Reported) Entered as Reported by: BHANU SIMONS on 11/9/21 1209 Last Action: Reviewed Doxazosin Mesylate (Doxazosin Mesylate) 4 Mg Tablet, 4 MG PO HS, (Reported) Entered as Reported by: JONE GOINS on 11/26/17 0855 Last Action: Continued Dronedarone HCl (Multaq) 400 Mg Tablet, 400 MG PO BID, (Reported) Entered as Reported by: BHANU SIMONS on 02/20/211208 Last Action: Continued Fish Oil/Dha/Epa (Fish Oil 1,200 mg Fish Oil) 1 Each Capsule, 1 EACH PO HS, (Reported) Entered as Reported by: BHANU SIMONS on 02/20/211208 Last Action: Reviewed Furosemide (Furosemide) 20 Mg Tablet, 20 MG PO DAILY PRN for FLUID RETENTION, (Reported) Entered as Reported by: ROJELIO PORTER on 10/22/19 0758 Last Action: Continued Hydrocodone/Acetaminophen (Hydrocodone-Acetamin 10-325 mg) 1 Each Tablet, 1 EA PO Q6H PRN for PAIN-MODERATE (5-7), (Reported) Entered as Reported by: BHANU SIMONS on 02/20/211208 Last Action: Reviewed Levothyroxine Sodium (Levothyroxine Sodium) 50 Mcg Tablet, 50 MCG PO DAILY, ( Reported) Entered as Reported by: CONCHA HUANG on 02/13/18 1611 Last Action: Continued Lisinopril (Lisinopril) 2.5 Mg Tablet, 2.5 MG PO DAILY, (Reported) Entered as Reported by: BHANU SIMONS on 02/20/211208 Last Action: Converted Magnesium Oxide (Magnesium) 400 Mg Tablet, 400 MG PO HS, (Reported) Entered as Reported by: JONE GOINS on 03/16/18 1005 Last Action: Reviewed Metoprolol Succinate (Metoprolol Succinate) 50 Mg Tab.er.24h, 50 MG PO HS, (Reported) Entered as Reported by: BHANU SIMONS on 02/20/211208 Last Action: Continued Multivit-Min/FA/Lycopene/Lut (Centrum Silver Ultra Men's Tab) 1 Each Tablet, 0.5 EACH PO BID, (Reported) Entered as Reported by: BHANU SIMONS on 02/20/211208 Last Action: Reviewed Clements-3 Fatty Acids/Fish Oil (Clements 3 Fish Oil Softgel) 1 Each Capsule.dr, 1 EACH PO DAILY, (Reported) Entered as Reported by: BHANU SIMONS on 02/20/211208 Last Action: Reviewed Pantoprazole Sodium (Pantoprazole Sodium) 40 Mg Tablet.dr, 40 MG PO DAILY, (Reported) Entered as Reported by: CONCHA HUANG on 02/13/181610 Last Action: Reviewed Prednisone (Prednisone) 10 Mg Tab.ds.pk, MG PO DAILY, (Reported) Entered as Reported by: BHANU SIMONS on 02/20/211208 Last Action: Reviewed Ranolazine (Ranolazine ER) 1,000 Mg Tab.er.12h, 1,000 MG PO BID, (Reported) Entered as Reported by: BHNAU SIMONS on 02/20/211208 Last Action: Converted Valacyclovir HCl (Valacyclovir) 1,000 Mg Tablet, 1,000 MG PO TID, (Reported) Entered as Reported by: BHANU SIMONS on 02/20/211208 Last Action: Converted Vitamin B Complex (B Complex) 1 Each Tablet, 1 EACH PO HS, (Reported) Entered as Reported by: BHANU SIMONS on 02/20/211208 Last Action: Reviewed Zinc (Zinc) 50 Mg Tablet, 50 MG PO HS, (Reported) Entered as Reported by: BHANU SIMONS on 02/20/211208 Last Action: Reviewed Discontinued Medications Flaxseed Oil (Flax Seed Oil) 1,000 Mg Capsule, 3,500 MG PO HS, (Reported) Discontinued Reason: No Longer Taking Entered as Reported by: JONE GOINS on 11/26/17 09 Last Action: Discontinued Lisinopril (Lisinopril) 5 Mg Tablet, 2.5 MG PO BID, (Reported) Discontinued Reason: Duplicate Order Entered as Reported by: CONCHA HUANG on 02/13/181610 Last Action: Discontinued Metoprolol Succinate (Metoprolol Succinate) 25 Mg Tab.er.24h, 50 MG PO DAILY, (Reported) Discontinued Reason: Duplicate Order Entered as Reported by: CONCHA HUANG on 02/13/181610 Last Action: Discontinued Multivitamin (Multi-Vitamin Daily) 1 Each Tablet, 0.5 EACH PO BID, (Reported) Discontinued Reason: Prescription changed Entered as Reported by: JONE GOINS on 03/16/18 1007 Potassium Chloride (Klor-Con 10) 10 Meq Tablet.er, 99 MEQ PO DAILY, (Reported) Discontinued Reason: No Longer Taking Entered as Reported by: ROJELIO PORTER on 10/22/19 0758 Last Action: Discontinued Prednisone (Prednisone) 20 Mg Tab, 1 TAB PO DAILY Discontinued Reason: No Longer Taking Prescribed by: RADHA MELISSA on 03/18/18 1107 Last Action: Discontinued Prednisone (Prednisone) 10 Mg Tab.ds.pk, 10 MG PO DAILY Discontinued Reason: Duplicate Order Prescribed by: MELIZA DELGADO on 02/17/21 1136 Last Action: Discontinued Ranolazine (Ranexa) 1,000 Mg Tab.er.12h, 1,000 MG PO BID, (Reported) Discontinued Reason: Duplicate Order Entered as Reported by: JONE GOINS on 11/26/17 0901 Last Action: Discontinued Valacyclovir HCl (Valtrex) 1,000 Mg Tablet, 1,000 MG PO TID Discontinued Reason: Duplicate Order Prescribed by: MELIZA DELGADO on 02/17/21 1136 Last Action: Discontinued Past Brwwxmf-Mqzitj-Mdrnec Hx Patient Social History Marrital Status: Living Status: LIVES IN HOME WITH SPOUSE Employed/Student: retired (RETIRED ) Tobacco Use?: Yes Tobacco type used: Cigarettes Smoking Status: Current Everyday Smoker Substance use?: No Alcohol Use?: No Pt feels they are or have been: No Immunizations Up To Date Date of Influenza Vaccine: Feb 13, 2021 First/Initial COVID19 Vaccinat: May Second COVID19 Vaccination Toan: June Date of Pneumonia Vaccine: Nov 12, 2016 Seasonal Allergies Seasonal Allergies: No Current Status Advance Directives: Yes Advance Directive Location: already on file Communicates: Verbally Primary Language: Haitian Preferred Spoken Language: Haitian Is interpretation needed?: No Sensory deficits: Hearing impairment Implanted or Applied Medical D: CPAP Past Medical History Surgeries: Abdominal, CABG, Orthopedic, Prostatectomy Sleep Apnea Currently Using CPAP: Yes Currently Using BIPAP: No Atrial Fibrillation, Coronary Artery Disease, High Cholesterol, Hypertension Prostate Problems Abdominal Hernia, Gastroesophageal Reflux Arthritis, Chronic Back Pain, Gout Hypothyroidsim Prostate, Skin Did You Recieve Any Treatments: Yes What Type of Treatment Did You: Radiation, Surgical Intervention Blood Disorders: No Adverse Reaction/Blood Tranf: No Family Medical History Cardiovascular disease 19 MOTHER Myocardial infarction 19 FATHER Heart Disease, CAD Over 55 Years Old, Hypertension Review of Systems Constitutional: No chills, No diaphoresis, No dizziness, No fever, No malaise; weakness EENTM: hearing loss; No hoarseness, No throat pain Respiratory: cough, dyspnea on exertion, short of breath Cardiovascular: chest pain, Hx of Intervention, vascular heart diseas Gastrointestinal: no symptoms reported Genitourinary: no symptoms reported Musculoskeletal: back pain, joint pain, muscle weakness Skin: pruritus, rash Psychiatric/Neurological: Weakness All Other Systems Reviewed Negative Unless Noted: Yes Physical Exam Vital Signs Vital Signs - First Documented 02/20/21 05:18 Temp 36.8 Pulse 95 Resp 18 B/P (MAP) 204/125 (151) Pulse Ox 95 O2 Delivery Room Air Capillary Refill : Less Than 3 Seconds Height, Weight, BMI Height: 6'0.00" Weight: 213lbs. 0.0oz. 96.222186cd; 30.55 BMI Method:Stated General Appearance: No Apparent Distress, WD/WN, Other (PT SITTING UP IN BED EATING BREAKFAST) HEENT: PERRL/EOMI, Pharynx Normal Neck: Full Range of Motion, Non Tender, Supple Respiratory: Chest Non Tender, No Accessory Muscle Use, No Respiratory Distress, Decreased Breath Sounds Cardiovascular: Regular Rate, Rhythm, Normal Peripheral Pulses Gastrointestinal: Normal Bowel Sounds, No Organomegaly, No Pulsatile Mass, Non Tender, Soft Rectal: Deferred Back: Normal Inspection, No Vertebral Tenderness Extremity: Normal Capillary Refill, Non Tender, No Calf Tenderness, No Pedal Edema Neurologic/Psychiatric: Alert, Oriented x3, No Motor/Sensory Deficits, Normal Mood/Affect Skin: Rash (ON RIGHT LOWER RIBS IN A SMALL VESICULAR PATCH ON LATERAL RIBS AND BACK) Lymphatic: No Adenopathy Assessment/Plan Assessment and Plan CHEST PAIN HYPERTENSION HYPERLIPIDEMIA CORONARY ARTERY DISEASE ACUTE SHINGLES CHRONIC PAIN SYNDROME TOBACCOISM COPD CHEST PAIN WITH HX OF CORONARY ARTERY DISEASE - TROPONIN NEGATIVE, - DEFER TO DR. LAMBERT - WILL PLAN ON STRESS TESTING VS HEART CATH. - ECHO PENDING TODAY. HYPERTENSION AND HYPERLIPIDEMIA - RESUME HOME REGIMEN IF OKAY WITH CARDIOLOGY ACUTE SHINGLES - RESUME VALACYCLOVIR, CONTACT PRECAUTIONS. CHRONIC PAIN SYNDROME FOR CHRONIC BACK PAIN STATUS POST MULTIPLE SuRGicaL INTERVENTIONS. - RESUME HOME REGIMEN - TOBACCOISM - PT REFUSES TO STOP SMOKING COPD - SUPPORTIVE CArE, Monitor SyMPTOMS. Admission Diagnosis CHEST PAIN HYPERTENSION HYPERLIPIDEMIA CORONARY ARTERY DISEASE ACUTE SHINGLES CHRONIC PAIN SYNDROME TOBACCOISM COPD Admission Status: Observation Clinical Quality Measures AMI/AHF: ASA po Prior to arrival: Yes FARRUKH BAEZA MD Feb 20, 2021 08:41
[2021-02-20 08:42] VITALS: BP 147/83
[2021-02-20] MEDS ORDERED: CATHETER FLUSH 10 ML SYR IV PRN (08:45)
[2021-02-20 08:50] VITALS: BP 147/83
[2021-02-20] MEDS ORDERED: APIXABAN 5 MG (ELIQUIS) TABLET PO SCH ×2 (09:00→21:00)
[2021-02-20] MEDS ORDERED: ASPIRIN 81 MG CHEW (CHILDREN'S ASA) PO SCH (09:00)
[2021-02-20] MEDS ORDERED: lisINopril 5 MG (PRINIVIL) TABLET PO SCH (09:00)
[2021-02-20] MEDS ORDERED: RT-ALBUTEROL SULF 2.5 MG/3 ML PRE-MIX VIAL INH PRN (09:00)
[2021-02-20] MEDS ORDERED: RANOLAZINE ER 500 MG TAB (RANEXA) PO SCH (09:00)
[2021-02-20] MEDS ORDERED: meTOproloL SUCCINATE 50 MG (TOPROL XL) TAB PO SCH (09:00)
[2021-02-20 09:02] VITALS: BP 141/76
[2021-02-20] MEDS ORDERED: VALA10007 PO (12:09)
[2021-02-20] MEDS ORDERED: LISI2.5T13 PO (12:09)
[2021-02-20] MEDS ORDERED: ZINC50TA58 PO (12:09)
[2021-02-20] MEDS ORDERED: METO50TA7 PO (12:09)
[2021-02-20] MEDS ORDERED: CALC1TAB84 PO (12:09)
[2021-02-20] MEDS ORDERED: VITA-189 PO (12:09)
[2021-02-20] MEDS ORDERED: OMEG1CAP24 PO (12:09)
[2021-02-20] MEDS ORDERED: DRON400T6 PO (12:09)
[2021-02-20] MEDS ORDERED: RANO10005 PO (12:09)
[2021-02-20] MEDS ORDERED: ASCO100099 PO (12:09)
[2021-02-20] MEDS ORDERED: FISH1CAP15 PO (12:09)
[2021-02-20] MEDS ORDERED: PRED10TA22 PO (12:09)
[2021-02-20] MEDS ORDERED: MULT-850 PO (12:09)
[2021-02-20] MEDS ORDERED: CHOL500050 PO (12:09)
[2021-02-20] MEDS ORDERED: HYDR-3820 PO (12:09)
[2021-02-20] MEDS ORDERED: PATIENT MAY USE OWN MEDS, ALL MC SCH (12:15)
[2021-02-20] MEDS ORDERED: FUROSEMIDE 20 MG (LASIX) TAB PO PRN (13:00)
[2021-02-20] MEDS ORDERED: PANTOPRAZOLE 40 MG (PROTONIX) TAB PO SCH (13:00)
[2021-02-20] MEDS: PANTOPRAZOLE 40 MG (PROTONIX) TAB PO SCH (15:25)
[2021-02-20] MEDS: APIXABAN 5 MG (ELIQUIS) TABLET PO SCH ×2 (15:27→20:40)
[2021-02-20] MEDS: RANOLAZINE ER 500 MG TAB (RANEXA) PO SCH ×2 (15:28→20:38)
[2021-02-20] MEDS: CLOPIDOGREL 75 MG (PLAVIX) TABLET PO SCH (17:13)
[2021-02-20] MEDS: CATHETER FLUSH 10 ML SYR IV SCH ×2 (17:13→20:43)
[2021-02-20 20:00] VITALS: BP 110/62
[2021-02-20] MEDS: DRONEDARONE TABLET 400 MG TABLET PO SCH (20:40)
[2021-02-20] MEDS: VALACYCLOVIR 1 GM PO SCH (20:41)
[2021-02-20] MEDS: doxAzosin 4 MG (CARDURA) TAB PO SCH (20:42)
[2021-02-20] MEDS: meTOproloL SUCCINATE 50 MG (TOPROL XL) TAB PO SCH (20:42)
[2021-02-20] MEDS ORDERED: NON-FORMULARY MEDICATION 1 EA EA (Ranolazine (Ranolazine ER) 1,000 MG) PO SCH (21:00)
[2021-02-20 23:54] VITALS: BP 114/74
[2021-02-21 04:00] VITALS: BP 125/67
[2021-02-21] MEDS: CATHETER FLUSH 10 ML SYR IV SCH ×3 (05:16→22:57)
[2021-02-21] MEDS: LEVOTHYROXINE 50 MCG (LEVOTHROID) TAB PO SCH (05:22)
[2021-02-21 06:39] LABS: HEMATOCRIT 40 % (40-54); HEMOGLOBIN 13.6 g/dL (13.3-17.7); MEAN CORPUSCULAR VOLUME 105 fL (80-99); WHITE BLOOD COUNT 10.4 10^3/uL (4.3-11.0)
[2021-02-21 06:40] LABS: MEAN CORPUSCULAR HEMOGLOBIN 36 pg (25-34); MEAN CORPUSCULAR HGB CONC 34 g/dL (32-36); MEAN PLATELET VOLUME 9.4 fL (9.0-12.2); PLATELET COUNT 181 10^3/uL (130-400)
[2021-02-21 07:07] LABS: CHOLESTEROL 147 MG/DL (< 200); HDL CHOLESTEROL 46 MG/DL (40-60); TRIGLYCERIDES 137 MG/DL (<150); VLDL CHOLESTEROL 27 MG/DL (5-40)
[2021-02-21 07:19] LABS: CREATININE SERUM 0.92 MG/DL (0.60-1.30); POTASSIUM 4.5 MMOL/L (3.6-5.0)
[2021-02-21 07:37] VITALS: BP 144/81
[2021-02-21] MEDS: ASPIRIN E.C. 81 MG (ECOTRIN) TAB PO SCH (07:55)
[2021-02-21] MEDS: APIXABAN 5 MG (ELIQUIS) TABLET PO SCH ×2 (07:56→20:46)
[2021-02-21] MEDS: VALACYCLOVIR 1 GM PO SCH ×3 (07:57→20:45)
[2021-02-21] MEDS: DRONEDARONE TABLET 400 MG TABLET PO SCH ×2 (07:57→20:45)
[2021-02-21] MEDS: PANTOPRAZOLE 40 MG (PROTONIX) TAB PO SCH (07:58)
[2021-02-21] MEDS: CLOPIDOGREL 75 MG (PLAVIX) TABLET PO SCH (07:58)
[2021-02-21] MEDS: RANOLAZINE ER 500 MG TAB (RANEXA) PO SCH ×2 (07:59→20:44)
[2021-02-21] MEDS: lisINopril 5 MG (PRINIVIL) TABLET PO SCH (07:59)
--- NOTE | 2021-02-21 08:16 | Progress Note ---
Subjective Subjective Date Seen by Provider: Feb 21, 2021 Time Seen by Provider: 08:10 PT IS A 80 Y/O MALE WHO IS KNOWN TO ME FROM CLINIC. HE REPORTS SOME DISCOMFORT IN HIS CHEST OVERNIGHT. HE DENIES CURRENT CHEST PAIN. Review of Systems General: No Chills; Fatigue, Malaise Pulmonary: No Dyspnea, No Cough Cardiovascular: Chest Pain; No: Palpitations Gastrointestinal: No: Nausea, Abdominal Pain Genitourinary: No Dysuria Neurological: No: Weakness, Confusion All Other Systems Reviewed All Other Systems Reviewed: Yes Objective Exam Vital Signs Vital Signs Date Time Temp Pulse Resp B/P (MAP) Pulse Ox O2 Delivery O2 Flow Rate FiO2 02/21/21 07:37 36.3 57 18 144/81 (102) 95 Room Air 02/21/21 04:00 36.7 53 16 125/67 (86) 95 Room Air 02/21/21 03:32 Room Air 02/21/21 01:00 65 02/20/21 23:54 36.7 65 16 114/74 (87) 96 Room Air 02/20/21 23:45 Room Air 02/20/21 20:16 Room Air 02/20/21 20:00 36.5 83 16 110/62 (78) 94 Room Air 02/20/21 19:07 81 02/20/21 16:38 36.7 70 16 95 Room Air 02/20/21 16:16 Room Air 02/20/21 13:00 69 02/20/21 12:16 Room Air 02/20/21 10:38 95 Room Air 02/20/21 09:02 36.2 57 14 141/76 (97) 96 Room Air 02/20/21 08:50 36.5 81 96 02/20/21 08:42 36.5 81 20 147/83 (104) 96 Room Air 02/20/21 08:36 67 02/20/21 08:17 Room Air I & O 02/21/21 07:00 Intake Total 750 ml Balance 750 ml General Appearance: No Apparent Distress, WD/WN, Other (PT SITTING UP IN BED EATING BREAKFAST) HEENT: PERRL/EOMI, Pharynx Normal Neck: Full Range of Motion, Non Tender, Supple Respiratory: Chest Non Tender, No Accessory Muscle Use, No Respiratory Distress, Decreased Breath Sounds Cardiovascular: Regular Rate, Rhythm, Normal Peripheral Pulses Gastrointestinal: Normal Bowel Sounds, No Organomegaly, No Pulsatile Mass, Non Tender, Soft Rectal: Deferred Back: Normal Inspection, No Vertebral Tenderness Extremity: Normal Capillary Refill, Non Tender, No Calf Tenderness, No Pedal Edema Neurologic/Psychiatric: Alert, Oriented x3, No Motor/Sensory Deficits, Normal Mood/Affect Skin: Rash (ON RIGHT LOWER RIBS IN A SMALL VESICULAR PATCH ON LATERAL RIBS AND BACK) Lymphatic: No Adenopathy Results Lab Laboratory Tests 02/20/21 11:13: Troponin I 0.385*H 02/21/21 06:23: Triglycerides Level 137, Cholesterol Level 147, LDL Cholesterol Direct 77, VLDL Cholesterol 27, HDL Cholesterol 46 02/21/21 06:25: Troponin I 0.290H, White Blood Count 10.4, Red Blood Count 3.79L, Hemoglobin 13.6, Hematocrit 40, Mean Corpuscular Volume 105H, Mean Corpuscular Hemoglobin 36H, Mean Corpuscular Hemoglobin Concent 34, Red Cell Distribution Width 13.6, Platelet Count 181, Mean Platelet Volume 9.4, Sodium Level 138, Potassium Level 4.5, Chloride Level 109H, Carbon Dioxide Level 19L, Anion Gap 10, Blood Urea Nitrogen 21H, Creatinine 0.92, Estimat Glomerular Filtration Rate 79, BUN/Creatinine Ratio 23, Glucose Level 89, Calcium Level 9.0 Assessment/Plan Assessment/Plan Admission Dx CHEST PAIN HYPERTENSION HYPERLIPIDEMIA CORONARY ARTERY DISEASE ACUTE SHINGLES CHRONIC PAIN SYNDROME TOBACCOISM COPD Assessment and Plan CHEST PAIN HYPERTENSION HYPERLIPIDEMIA CORONARY ARTERY DISEASE ACUTE SHINGLES CHRONIC PAIN SYNDROME TOBACCOISM COPD CHEST PAIN WITH HX OF CORONARY ARTERY DISEASE - TROPONIN NEGATIVE, - DEFER TO DR. LAMBERT - STATUS POST HEART CATHETERIZATION - SEE REPORT BELOW: CONCLUSION: 1. Severe wrangell coronary artery disease involving the LAD, circumflex and right coronary artery. The vein graft to the circumflex artery is occluded, the right coronary artery is a small artery that is not bypassed and not amendable to intervention 2. Patent vein graft to the diagonal artery with good flow distally 3. The RODRIGUEZ to the LAD was not visualized due to the fact that patient had left subclavian stent protruding in the aortic arch 4. Normal left ventricular end-diastolic pressure 5. Medical therapy is recommended, patient is considered high risk for attempting intervention on the vein graft to the obtuse marginal branch. No need to do radial access at this time to evaluate the RODRIGUEZ. - SEE ECHO REPORT HYPERTENSION AND HYPERLIPIDEMIA - RESUMED HOME REGIMEN ACUTE SHINGLES - RESUMED VALACYCLOVIR, CONTACT PRECAUTIONS. CHRONIC PAIN SYNDROME FOR CHRONIC BACK PAIN STATUS POST MULTIPLE SURGICAL INTERV ENTIONS. - RESUMED HOME REGIMEN - TOBACCOISM - PT REFUSES TO STOP SMOKING COPD - SUPPORTIVE CARE, MONITOR SYMPTOMS. Admission Dx CHEST PAIN HYPERTENSION HYPERLIPIDEMIA CORONARY ARTERY DISEASE ACUTE SHINGLES CHRONIC PAIN SYNDROME TOBACCOISM COPD Clinical Quality Measures Admission Status Admission Dx CHEST PAIN HYPERTENSION HYPERLIPIDEMIA CORONARY ARTERY DISEASE ACUTE SHINGLES CHRONIC PAIN SYNDROME TOBACCOISM COPD AMI/AHF: ASA po Prior to arrival: Yes FARRUKH SCOTT MD Feb 21, 2021 08:16
[2021-02-21] MEDS ORDERED: NON-FORMULARY MEDICATION 1 EA EA (Lisinopril 2.5 MG) PO SCH (09:00)
--- NOTE | 2021-02-21 09:07 | Cardiology Progress Note ---
Subjective Date Seen by Provider: Feb 21, 2021 Time Seen by Provider: 08:25 Subjective/Events-last exam Patient is sitting up in bed, denies any further chest pain. Review of Systems General: No Chills, No Night Sweats, No Fatigue, No Malaise, No Appetite, No Other HEENT: No Head Aches, No Visual Changes, No Eye Pain, No Ear Pain, No Dysphasia, No Sinus Congestion, No Post Nasal Drip, No Sore Throat, No Other Pulmonary: No Dyspnea, No Cough, No Pleuritic Chest Pain, No Other Cardiovascular: No: Chest Pain, Palpitations, Orthopnea, Paroxysmal Noc. Dyspnea, Edema, Lt Headedness, Other Objective-Cardiology Exam Last Set of Vital Signs Vital Signs 02/22/21 02/22/21 08:17 08:20 Temp 36.6 Pulse 68 Resp 15 B/P (MAP) 156/90 (112) Pulse Ox 95 O2 Delivery Room Air I&O Intake and Output 02/22/21 00:00 Intake Total 1880 ml Output Total 581 ml Balance 1299 ml Intake Oral 880 ml IV Total 1000 ml Output Urine Total 580 ml Stool Total 1 ml # Voids 11 # Bowel Movements 2 General: Alert, Oriented X3, Cooperative HEENT: Atraumatic, PERRLA Neck: Supple, No JVD, No Thyromegaly Lungs: Clear to Auscultation, Normal Air Movement Heart: Regular Rate, Normal S1, Normal S2, No Murmurs Abdomen: Normal Bowel Sounds, Soft, No Tenderness, No Hepatosplenomegaly, No Masses Extremities: No Clubbing, No Cyanosis, No Edema, Normal Pulses, No Tenderness/Swelling Skin: No Rashes, No Breakdown, No Significant Lesion Neuro: Normal Gait, Normal Speech, Strength at 5/5 X4 Ext, Normal Tone, Sensation Intact Psych/Mental Status: Mental Status NL, Mood NL Results Lab Laboratory Tests 02/22/21 05:16 A/P-Cardiology Admission Diagnosis Chest pain CAD PSVT PAF HTN Assessment/Plan Chest pain, history of chronic stable angina, having unstable angina, intolerant to nitroglycerin and isosorbide in the past with severe headache. Has been maintained on Ranexa. EKG did not show any acute problem. Initial troponin was negative, repeat troponin is elevated. Mildly elevated BNP. Conservative management is recommended no intervention is recommended at this point. Continue to monitor for chest pain and EKG changes. Supraventricular tachycardia, paroxysmal atrial flutter with rapid ventricular response, first documented on February 13, 2018 underwent JIMY with cardioversion. S/p ablation with Dr. Martines on 03/16/18. Asymptomatic. Started on Multaq, will continue to monitor History of loop monitor implant, interrogation showed occasional episodes of atrial fibrillation, showed episodes. Continue to monitor Coronary artery disease, status post CABG x3 in 2001. Cardiac catheterization done April 2016 revealing a difficult anatomy was unable to evaluate left coronary system done within the show left heart cathet erization. Patent vein graft to the diagonal artery and obtuse marginal branch artery. Occluded small RCA with collateral filling the distal right from the left system. Another angiogram done on April 18, 2016 revealing patent RODRIGUEZ to LAD. Patient did have severe stenosis of the ostium of the left subclavian artery. Underwent stenting to the left subclavian artery. Stress test June 2018 revealed diaphragmatic attenuation with fixed defect involving the inferior wall and inferolateral wall prominent LV with diffuse LV hypokinesia, more pronounced at inferior wall CHF, chronic left ventricular systolic dysfunction, 2D echocardiogram done in May 2019 showed ejection fraction 40 to 45%, moderate MR, aortic valve sclerosis, PA 20 to 25 mmHg. I will reevaluate 2D Echo Shingle to right torso, recently diagnosed, management per medical services. Left subclavian artery stenosis-patient underwent left subclavian angiography with left subclavian balloon angioplasty and left subclavian stenting on 04/18/16 using Omnilink 08 stent 9 x 29 x 80 mm with lesion well covered in significant reduction in stenosis severity noted. There was 5-10 percent residue stenosis, h owever, there were a few stent struts protruding into the aortic arch. Maintained on Plavix and ASA. Continue to monitor Bilateral lower extremity pain. Reporting improvement, peripheral angiogram was done on November 26, 2017 which showed mild peripheral arterial disease, slightly tortuous iliac artery with no obstructive disease down to the foot and slightly ectatic abdominal aorta. Continue to monitor at this time Hypertension, labile hypertension, continue to monitor Hyperlipidemia, lipid profile done on December 07, 2020 showing total cholesterol 118, HDL 37, triglyceride 144, LDL 52. Continue to monitor Tobaccoism-educated on the importance of smoking cessation. Carotid artery stenosis-mild nonobstructive disease per carotid duplex done in April 2020, continue to monitor History of malignant melanoma, followed and managed by Dr. Nelson History of prostate cancer, followed and managed by Dr. Nelson. 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 Supervisory-Addendum Brief Supervisory Addendum Participated in pt care: history, MDM, physical Personally performed: exam, history, MDM Care discussed with: NATALY Results interpretation: Verified all documentation Notes: Patient was seen and evaluated with Yandy, examination performed, management plan was discussed, agree with the current scribed note, I made few changes to the note using Italic font YANDY HALE Feb 21, 2021 09:07 KAYLEY LAMBERT MD Feb 22, 2021 09:07
[2021-02-21] MEDS ORDERED: NS IV 1000 ML 1,000 ML IV SCH (12:15)
[2021-02-21] MEDS ORDERED: D5 1/2 NS 1000 ML IV SOLUTION 1,000 ML IV SCH (12:15)
[2021-02-21] MEDS ORDERED: NS IV 1000 ML 1,000 ML ONE ×2 (12:19→14:01)
[2021-02-21] MEDS: ALLOPURINOL 100 MG (ZYLOPRIM) TAB PO SCH (13:37)
[2021-02-21] MEDS ORDERED: fentaNYL INJ 100 MCG/2 ML AMP ONE (13:59)
[2021-02-21] MEDS ORDERED: MIDAZOLAM 5 MG/5 ML (VERSED) VIAL ONE (13:59)
[2021-02-21] MEDS ORDERED: LIDOCAINE 1% INJ 20 ML 20 ML VIAL ONE (14:00)
[2021-02-21] MEDS ORDERED: HEParin (CATH LAB) 2,000 ML IV ONE (14:01)
--- NOTE | 2021-02-21 15:13 | Cardiac Cath Report ---
Cardiac Cath Report Physician (s)/Switchboard Manager (s) Physician KAYLEY LAMBERT MD Pre-Procedure Diagnosis Pre-Procedure Diagnosis: Coronary artery disease Post-Procedure Note Procedure Start Date: Feb 21, 2021 Name of Procedure: Left heart catheterization Vein graft angiogram Findings/Procedure Note PROCEDURE NOTE: 80-year-old gentleman with known extensive coronary artery disease, hypertension, hyperlipidemia, admitted with chest pain, had elevated troponin level. Scheduled for cardiac catheterization possible PTCA. After explaining the procedure to the patient, all pros and cons were explained, all questions were answered. The patient signed the consent and then he was placed on the cardiac catheterization laboratory. Groin was prepped SL fashion local anesthesia was used. Sheath placed in the right femoral artery. I had difficulty advancing the J-wire through the aortic arch due to the protrusion of the subclavian stent within the thoracic aorta. I maneuvered with the catheter was able to get across. Could not engage the left coronary system fully, did nonselective angiogram, known to have severe disease in the [place] left coronary system. I tried using FL catheter, MP 1, modified MP 1, Edison catheter, right catheter without success Irwin right was used to access the right coronary artery and angiogram was done Using the modified MP 1 I intubated the vein graft and angiogram to the vein graft was done MP 1 was prolapsed to the left ventricular cavity, pressure was measured pullback LV to aorta was done. I did subclavian angiogram to evaluate the stent position within the aorta At the end of the procedure the sheath was removed. Closure device closure device was deployed FINDINGS: Hemodynamics LV 122/11, end-diastolic pressure of 11 Aorta 134/59 mean of 85 ANATOMY: Left Main is patent. Left Anterior Descending is known to have severe disease, the RODRIGUEZ to the LAD was not visualized on the study, the vein graft to the diagonal artery is patent Left Circumflex is known to have severe disease, the vein graft to the diagonal artery is occluded Right Coronary Artery is subtotally occluded, chronic no change from old study RODRIGUEZ to LAD was not visualized in this study to the fact that the left subclavian stent was protruding in the thoracic aorta and I was unable to engage the left subclavian artery fully. Vein Graft angiogram showed the vein graft that is known to be a jump graft to the diagonal and obtuse marginal branch, the diagonal portion of that vein graft is patent with good flow in the diagonal artery, the obtuse marginal branch is occluded. LV Gram was not done, pressure was measured CONCLUSION: 1. Severe [place] coronary artery disease involving the LAD, circumflex and right coronary artery. The vein graft to the circumflex artery is occluded, the right coronary artery is a small artery that is not bypassed and not amendable to intervention 2. Patent vein graft to the diagonal artery with good flow distally 3. The RODRIGUEZ to the LAD was not visualized due to the fact that patient had left subclavian stent protruding in the aortic arch 4. Normal left ventricular end-diastolic pressure 5. Medical therapy is recommended, patient is considered high risk for attempting intervention on the vein graft to the obtuse marginal branch. No need to do radial access at this time to evaluate the RODRIGUEZ. DISCUSSION AND RECOMMENDATION: I recommend maximizing medical therapy. Anesthesia Type: Conscious Sedation Estimated blood loss (mL): 30 ml Contrast Amount: 60 ml Total Radiation Dose: 304 mGy Post-Procedure Diagnosis Post-operative diagnosis: Chest pain Non-ST elevation myocardial infarction Coronary artery disease Hypertension KAYLEY LAMBERT MD Feb 21, 2021 15:13
[2021-02-21] MEDS ORDERED: PATIENT MAY USE OWN MEDS, ALL PO SCH (15:15)
[2021-02-21 16:00] VITALS: BP 153/88
[2021-02-21] MEDS: NS IV 1000 ML 1,000 ML IV SCH ×2 (16:13→22:57)
[2021-02-21 20:00] VITALS: BP 148/92
[2021-02-21] MEDS: doxAzosin 4 MG (CARDURA) TAB PO SCH (20:43)
[2021-02-21] MEDS: meTOproloL SUCCINATE 50 MG (TOPROL XL) TAB PO SCH (20:44)
[2021-02-22] VITALS: BP 125/75
[2021-02-22 04:00] VITALS: BP 141/77
[2021-02-22] MEDS: CATHETER FLUSH 10 ML SYR IV SCH (05:23)
[2021-02-22 05:51] LABS: HEMATOCRIT 39 % (40-54); HEMOGLOBIN 13.3 g/dL (13.3-17.7); MEAN CORPUSCULAR HEMOGLOBIN 36 pg (25-34); MEAN CORPUSCULAR HGB CONC 34 g/dL (32-36); MEAN CORPUSCULAR VOLUME 105 fL (80-99); MEAN PLATELET VOLUME 9.5 fL (9.0-12.2); PLATELET COUNT 178 10^3/uL (130-400); WHITE BLOOD COUNT 10.8 10^3/uL (4.3-11.0)
[2021-02-22 06:01] LABS: CALCIUM 8.7 MG/DL (8.5-10.1)
[2021-02-22 06:05] LABS: CREATININE SERUM 0.93 MG/DL (0.60-1.30)
[2021-02-22] MEDS: LEVOTHYROXINE 50 MCG (LEVOTHROID) TAB PO SCH (06:05)
--- NOTE | 2021-02-22 07:59 | Discharge Summary ---
Diagnosis/Chief Complaint Date of Admission Feb 20, 2021 at 06:28 Date of Discharge Reason Hospital Visit PT IS A 80 Y/O MALE WHO IS KNOWN TO ME FROM CLINIC - HE PRESENTED TO THE EM ERGENCY DEPARTMENT THIS MORNING WITH CHEST PAIN, THAT PERSISTED AND WORSENED PRIOR TO PT SEEKING EVALUATION THROUGH THE EMERGENCY DEPARTMENT. HE HAD HX OF CORONARY ARTERY DISEASE, ATRIAL FIBRILLATION, HYPERTENSIVE HEART DISEASE WITH DECREASED EJECTION FRACTION. Discharge Summary Discharge Physical Examination Allergies: Coded Allergies: No Known Drug Allergies (Verified , 02/23/08) Vitals & I&Os Vital Signs Date Time Temp Pulse Resp B/P (MAP) Pulse Ox O2 Delivery O2 Flow Rate FiO2 02/22/21 04:21 Room Air 02/22/21 04:00 36.7 71 20 141/77 (98) 96 Hospital Course Pending Labs Laboratory Tests 02/22/21 05:16: White Blood Count 10.8, Red Blood Count 3.74, Hemoglobin 13.3, Hematocrit 39, Mean Corpuscular Volume 105, Mean Corpuscular Hemoglobin 36, Mean Corpuscular Hemoglobin Concent 34, Red Cell Distribution Width 13.4, Platelet Count 178, Mean Platelet Volume 9.5, Sodium Level 136, Potassium Level 5.0, Chloride Level 105, Carbon Dioxide Level 21, Anion Gap 10, Blood Urea Nitrogen 23, Creatinine 0.93, Estimat Glomerular Filtration Rate 78, BUN/Creatinine Ratio 25, Glucose Level 101, Calcium Level 8.7 Discharge Instructions to patient/family Please see electronic discharge instructions given to patient. Discharge Medications Reviewed and agree with Discharge Medication list on patient's Discharge Instruction sheet Clinical Quality Measures AMI/AHF: ASA po Prior to arrival: Yes FARRUKH SCOTT MD Feb 22, 2021 07:59
[2021-02-22] MEDS ORDERED: CLOP75TA28 PO (08:02)
[2021-02-22] MEDS ORDERED: LISI-729 PO (08:02)
--- NOTE | 2021-02-22 08:03 | Discharge Inst-Simple/Standard ---
Discharge Inst-Standard Reconcile Patient Problems Problems Reviewed?: Yes Discharge Medications New, Converted or Re-Newed RX: Transmitted to Pharmacy Patient Instructions/Follow Up Plan of Care/Instructions/FU: 1 WK FOLLOW UP IN [facility] [address] UP WITH [address]. LAMBERT Activity as Tolerated: No (NO HEAVY LIFTING, PUSHING, PULLING FOR THE NEXT 5 DAYS, THEN RESUME ACTIVITY USUAL) Discharge Diet: Avoid Fatty Foods Health Concerns: CORONARY ARTERY DISEASE HYPERTENSION HYPERLIPIDEMIA Return to The Hospital For: ANY CONCERN FOR RECURRENT CHEST PAIN, SHORTNESS OF BREATH OR CONCERN FOR OTHER LIFE THREATENING ILLNESS OR INJURY FARRUKH SCOTT MD Feb 22, 2021 08:03
[2021-02-22] MEDS: CLOPIDOGREL 75 MG (PLAVIX) TABLET PO SCH (08:10)
[2021-02-22] MEDS: VALACYCLOVIR 1 GM PO SCH (08:11)
[2021-02-22] MEDS: RANOLAZINE ER 500 MG TAB (RANEXA) PO SCH (08:12)
[2021-02-22] MEDS: DRONEDARONE TABLET 400 MG TABLET PO SCH (08:13)
[2021-02-22] MEDS: APIXABAN 5 MG (ELIQUIS) TABLET PO SCH (08:14)
[2021-02-22] MEDS: lisINopril 5 MG (PRINIVIL) TABLET PO SCH (08:16)
[2021-02-22 08:17] VITALS: BP 156/90
[2021-02-22] MEDS: PANTOPRAZOLE 40 MG (PROTONIX) TAB PO SCH (08:17)
[2021-02-22] MEDS: ASPIRIN E.C. 81 MG (ECOTRIN) TAB PO SCH (08:18)
[2021-02-22] MEDS: ALLOPURINOL 100 MG (ZYLOPRIM) TAB PO SCH (08:19)
--- NOTE | 2021-02-22 08:25 | Cardiology Progress Note ---
Subjective Date Seen by Provider: Feb 22, 2021 Time Seen by Provider: 08:22 Subjective/Events-last exam No new complaints. Denies any further episode of chest pain. Asking to go home. Review of Systems General: No Chills, No Night Sweats, No Fatigue, No Malaise, No Appetite, No Other HEENT: No Head Aches, No Visual Changes, No Eye Pain, No Ear Pain, No Dysphasia, No Sinus Congestion, No Post Nasal Drip, No Sore Throat, No Other Pulmonary: No Dyspnea, No Cough, No Pleuritic Chest Pain, No Other Cardiovascular: No: Chest Pain, Palpitations, Orthopnea, Paroxysmal Noc. Dyspnea, Edema, Lt Headedness, Other Objective-Cardiology Exam Last Set of Vital Signs Vital Signs 02/22/21 02/22/21 08:17 08:20 Temp 36.6 Pulse 68 Resp 15 B/P (MAP) 156/90 (112) Pulse Ox 95 O2 Delivery Room Air I&O Intake and Output 02/22/21 00:00 Intake Total 1880 ml Output Total 581 ml Balance 1299 ml Intake Oral 880 ml IV Total 1000 ml Output Urine Total 580 ml Stool Total 1 ml # Voids 11 # Bowel Movements 2 General: Alert, Oriented X3, Cooperative HEENT: Atraumatic, PERRLA Neck: Supple, No JVD, No Thyromegaly Lungs: Clear to Auscultation, Normal Air Movement Heart: Regular Rate, Normal S1, Normal S2, No Murmurs Abdomen: Normal Bowel Sounds, Soft, No Tenderness, No Hepatosplenomegaly, No Masses Extremities: No Clubbing, No Cyanosis, No Edema, Normal Pulses, No Tenderness/Swelling Skin: No Rashes, No Breakdown, No Significant Lesion Neuro: Normal Gait, Normal Speech, Strength at 5/5 X4 Ext, Normal Tone, Sensation Intact Psych/Mental Status: Mental Status NL, Mood NL Results Lab Laboratory Tests 02/22/21 05:16 A/P-Cardiology Admission Diagnosis Chest pain CAD PSVT PAF HTN Assessment/Plan Chest pain, history of chronic stable angina, having unstable angina, intolerant to nitroglycerin and isosorbide in the past with severe headache. Has been maintained on Ranexa. Underwent LHC yesterday as described below. Will continue with medical management. Supraventricular tachycardia, paroxysmal atrial flutter with rapid ventricular response, first documented on February 13, 2018 underwent JIMY with cardioversion. S/p ablation with Dr. Martines on 03/16/18. Asymptomatic. Started on Multaq, will continue to monitor History of loop monitor implant, interrogation showed occasional episodes of atrial fibrillation, showed episodes. Continue to monitor Coronary artery disease, status post CABG x3 in 2001. Cardiac catheterization done April 2016 revealing a difficult anatomy was unable to evaluate left coronary system done within the show left heart catheterization. Patent vein graft to the diagonal artery and obtuse marginal branch artery. Occluded small RCA with collateral filling the distal right from the left system. Another angiogram done on April 18, 2016 revealing patent RODRIGUEZ to LAD. Patient did have severe stenosis of the ostium of the left subclavian artery. Underwent stenting to the left subclavian artery. Repeat [facility] dne 02/21/21 showing severe [place] coronary artery disease involving the LAD, circumflex and right coronary artery. The vein graft to the circumflex artery is occluded, the right coronary artery is a small artery that is not bypa ssed and not amendable to intervention.Patent vein graft to the diagonal artery with good flow distally. The RODRIGUEZ to the LAD was not visualized due to the fact that patient had left subclavian stent protruding in the aortic arch. Medical therapy is recommended, patient is considered high risk for attempting intervention on the vein graft to the obtuse marginal branch. No need to do radial access at this time to evaluate the RODRIGUEZ. His extensive coronary artery disease are deemed inoperable, conservative management is recommended and medical therapy is recommended. CHF, chronic left ventricular systolic dysfunction, 2D echocardiogram done in May 2019 showed ejection fraction 40 to 45%, moderate MR, aortic valve sclerosis, PA 20 to 25 mmHg. Shingle to right torso, recently diagnosed, management per medical services. Left subclavian artery stenosis-patient underwent left subclavian angiography with left subclavian balloon angioplasty and left subclavian stenting on 04/18/16 using Omnilink 08 stent 9 x 29 x 80 mm with lesion well covered in significant reduction in stenosis severity noted. There was 5-10 percent residue stenosis, however, there were a few stent struts protruding into the aortic arch. Maintained on Plavix and ASA. Continue to monitor Bilateral lower extremity pain. Reporting improvement, peripheral angiogram was done on November 26, 2017 which showed mild peripheral arterial disease, slightly tortuous iliac artery with no obstructive disease down to the foot and slightly ectatic abdominal aorta. Continue to monitor at this time Hypertension, labile hypertension, continue to monitor Hyperlipidemia, lipid profile done on December 07, 2020 showing total cholesterol 118, HDL 37, triglyceride 144, LDL 52. Continue to monitor Tobaccoism-educated on the importance of smoking cessation. Carotid artery stenosis-mild nonobstructive disease per carotid duplex done in April 2020, continue to monitor History of malignant melanoma, followed and managed by Dr. Nelson History of prostate cancer, followed and managed by Dr. Nelson. 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 Supervisory-Addendum Brief Supervisory Addendum Participated in pt care: history, MDM, physical Personally performed: exam, history, MDM Care discussed with: NATALY Results interpretation: Verified all documentation Notes: Patient was seen and evaluated with Yandy, examination performed, management plan was discussed, agree with the current scribed note, I made few changes to the note using Italic font YANDY HALE Feb 22, 2021 08:25 KAYLEY LAMBERT MD Feb 22, 2021 09:09
== END 2021-02-22 09:46 | disposition home or self-care (01) ==
LOC: EDUNIT# 05:15 → ER 05:16 → UNDOADMOB 06:28 → CSD 06:28 → UNDODISOB 02-22 10:54
PROVIDERS: ADMIT Family Medicine; ATTEND Family Medicine
DX: I25.118 Atherosclerotic heart disease of native coronary artery with other forms of angina pectoris (principal); Z95.1 Presence of aortocoronary bypass graft; I48.91 Unspecified atrial fibrillation; Z79.01 Long term (current) use of anticoagulants; E78.5 Hyperlipidemia, unspecified; Z79.82 Long term (current) use of aspirin; Z79.899 Other long term (current) drug therapy; Z79.891 Long term (current) use of opiate analgesic; Z79.890 Hormone replacement therapy; F17.210 Nicotine dependence, cigarettes, uncomplicated; E03.9 Hypothyroidism, unspecified; K21.9 Gastro-esophageal reflux disease without esophagitis; M10.9 Gout, unspecified; G47.30 Sleep apnea, unspecified; E78.00 Pure hypercholesterolemia, unspecified; G89.29 Other chronic pain; M54.9 Dorsalgia, unspecified; I47.1 Supraventricular tachycardia; I11.0 Hypertensive heart disease with heart failure; B02.8 Zoster with other complications; I77.1 Stricture of artery; J44.9 Chronic obstructive pulmonary disease, unspecified; I08.0 Rheumatic disorders of both mitral and aortic valves; I44.7 Left bundle-branch block, unspecified; I65.29 Occlusion and stenosis of unspecified carotid artery
CPT/HCPCS: 36140; 71045; 80048 ×2; 80053; 80061; 81000; 83690; 83735; 83874; 83880; 84484 ×2; 85025; 85027 ×2; 85610; 85730; 93005 ×2; 93041; 93306; 93459; 96374; 99284; C1760; C1769; C1894 ×2; G0378; 36415

== ENCOUNTER 2021-03-28 05:36 | Outpatient (CLI) | payer MEDICARE, BC ==
[~2021-03-28] VITALS: Ht 182.9 cm; Wt 100.1 kg
[~2021-03-28 05:36] MED LIST changes: -AMIO200T6 PO; +AMIO200T65 PO; +ASCO100099 PO; +CALC1TAB84 PO; +CHOL500050 PO; +CYCL10TA25 PO; -CYCL10TA9 PO; +DRON400T6 PO; +FISH1CAP15 PO; +HYDR-3820 PO; -LISI-729 PO; +LISI2.5T13 PO; +LISI5TAB20 PO; +METO50TA7 PO; +MULT-850 PO; +OMEG1CAP24 PO; +POTA-160 PO; -POTA10TA6 PO; -POTA99TA21 PO; +POTA99TA26 PO; +RANO10005 PO; +VALA10007 PO; +ZINC50TA58 PO
== END 2021-03-28 13:44 | disposition home or self-care (01) ==
LOC: PREOP 05:36
PROVIDERS: ATTEND Surgery
DX: Z01.818 Encounter for other preprocedural examination (principal)

== ENCOUNTER 2021-03-30 10:28 | Day surgery (SDC) | payer MEDICARE, BC ==
[~2021-03-30] VITALS: Ht 183 cm; Wt 100.0 kg
[2021-03-30] MEDS ORDERED: LACTATED RINGERS 1,000 ML IV STA (10:45)
[2021-03-30] MEDS ORDERED: LIDOCAINE JELLY 2% 6 ML SYRINGE MM PRN (10:45)
[2021-03-30] MEDS ORDERED: LACTATED RINGERS 1,000 ML IV ONE (10:49)
[2021-03-30 11:02] VITALS: BP 130/64
[2021-03-30] MEDS ORDERED: PROPOFOL INJECTION 50 ML IV ONE (11:54)
--- NOTE | 2021-03-30 12:13 | Progress Note-Pre Operative ---
Pre-Operative Progress Note H&P Reviewed The H&P was reviewed, patient examined and no changes noted. Date Seen by Provider: Mar 30, 2021 Time Seen by Provider: 12:00 Date H&P Reviewed: Mar 30, 2021 Time H&P Reviewed: 12:00 Pre-Operative Diagnosis: rectal bleed RAMILA LUNA MD Mar 30, 2021 12:13
--- NOTE | 2021-03-30 12:14 | Discharge Inst-Surgical ---
D/C Lap Instructions-JEREMY Follow Up Activity as tolerated High Fiber Diet 25g or more per day Avoid Alcohol, Caffeine, Spicy Watchtower and Acid foods. Drink 64 fluid oz or more of fluids per day. Symptoms to Report: Fever over 101 degree F, Nausea/Vomiting If any problems/questions: Contact your physician or go to Emergency Room RAMILA LUNA MD Mar 30, 2021 12:14
[2021-03-30] MEDS ORDERED: ONDANSETRON 4 MG/2 ML (SDV) Z0FRAN IVP PRN (12:15)
[2021-03-30] MEDS ORDERED: ONDANSETRON 4 MG (ZOFRAN) ORAL DISSOLVE TAB PO PRN (12:15)
[2021-03-30 12:30] VITALS: BP 123/58
[2021-03-30 12:35] VITALS: BP 104/55
[2021-03-30 12:40] VITALS: BP 104/55
--- NOTE | 2021-03-30 12:50 | Progress Note-Post Operative ---
Post-Operative Progess Note Surgeon (s)/Wood Mechanist (s) Surgeon RAMILA LUNA MD Wood Mechanist: none Pre-Operative Diagnosis rectal bleed Post-Operative Diagnosis chronic stage 2-3, mild sigmoid diverticulosis. Procedure & Operative Findings Date of Procedure 03/30/21 Procedure Performed/Findings colonscopy Anesthesia Type mac Estimated Blood Loss Estimated blood loss (mL): minimal Specimens/Packing Specimens Removed none RAMILA LUNA MD Mar 30, 2021 12:50
[2021-03-30 13:40] VITALS: BP 104/55
--- NOTE | 2021-03-30 17:34 | OPERATIVE REPORT ---
DATE OF SERVICE: 03/30/2021 ATTENDING PRIMARY CARE PHYSICIAN: Pepper Baeza MD PREOPERATIVE DIAGNOSIS: Rectal bleeding. POSTOPERATIVE DIAGNOSES: Chronic between stage II and III external and internal hemorrhoids, very mild sigmoid diverticulosis. PROCEDURE: Colonoscopy. SURGEON: Ramila Luna MD. ANESTHESIA: Monitored anesthesia care. ESTIMATED BLOOD LOSS: Minimal. FINDINGS: Same as postoperative diagnoses. DISPOSITION: The patient tolerated the procedure well. INDICATIONS: The patient is a 80-year-old male referred over to us for an episode of bright red blood mixed with his stools. He reports that this occurred approximately 3 weeks ago. He has a history of coronary artery disease and did have a myocardial infarction and after that time has been on different anticoagulants and states that he has had some rectal bleeding as well as frequent nosebleeds. Laboratory work was done, which was normal. He has not had a colonoscopy for approximately 20 years. DESCRIPTION OF PROCEDURE: The patient was brought to the endoscopy suite, laid in the left lateral decubitus position. After adequate IV pain and sedative medications and monitored anesthesia care, a digital rectal examination was performed. Chronic between stage II and III external and internal hemorrhoids were identified, which were not actively edematous nor inflamed and no bleeding. Normal sphincter tone was felt and there were no palpable masses. Prostate gland was palpable and appeared normal. The endoscope was then intubated and anus and rectum gently insufflated. The endoscope was then advanced through the valves of Nelson of the rectum with no polyps or any neoplasms identified. We then proceeded through the sigmoid colon where very mild or early diverticulosis identified. The endoscope was then advanced and remainder of the descending, transverse and ascending colon to the cecum, which were normal. There were no polyps or any neoplasms identified as well as no active bleeding sources. The endoscope was then slowly withdrawn while taking a second look and suctioning of residual air with no additional findings. The patient tolerated the procedure well. We will recommend medical management with incorporation of a high-fiber diet with a fiber supplement, which should equal or exceed 30 grams daily as well as significant amounts of water to promote soft stools on a daily basis and to also promote stools that have no form and no pressure during defecation. Job ID: [id number] DocumentID: [id number] Dictated Date: 03/30/2021 12:34:51 Industry Segment Specialist Date: 03/30/2021 17:33:05 Dictated By: RAMILA LUNA MD
== END 2021-03-30 13:40 | disposition home or self-care (01) ==
LOC: ENDO 10:28
PROVIDERS: ATTEND Surgery
DX: K57.31 Diverticulosis of large intestine without perforation or abscess with bleeding (principal); K64.1 Second degree hemorrhoids; I25.10 Atherosclerotic heart disease of native coronary artery without angina pectoris; I25.2 Old myocardial infarction; K92.1 Melena; I10 Essential (primary) hypertension; I48.91 Unspecified atrial fibrillation; K21.9 Gastro-esophageal reflux disease without esophagitis; M10.9 Gout, unspecified; E03.9 Hypothyroidism, unspecified; E78.00 Pure hypercholesterolemia, unspecified; F17.210 Nicotine dependence, cigarettes, uncomplicated; Z79.899 Other long term (current) drug therapy; Z79.82 Long term (current) use of aspirin; Z79.891 Long term (current) use of opiate analgesic; Z79.02 Long term (current) use of antithrombotics/antiplatelets; Z79.890 Hormone replacement therapy; Z98.890 Other specified postprocedural states; Z79.01 Long term (current) use of anticoagulants

== ENCOUNTER 2021-08-14 12:29 | Inpatient (IN) | payer MEDICARE, BC ==
[~2021-08-14] VITALS: Ht 182.9 cm; Wt 87.8 kg
[2021-08-14] MEDS ORDERED: ALPRAZolam 0.25 MG (XANAX) TAB PO PRN (13:15)
[2021-08-14] MEDS ORDERED: MELATONIN 3 MG TABLET PO PRN (13:15)
[2021-08-14] MEDS ORDERED: FLEET ENEMA ADULT 1 EA BTL PR PRN (13:15)
[2021-08-14] MEDS ORDERED: BISACODYL 10 MG SUPP (DULCOLAX) PR PRN (13:15)
[2021-08-14] MEDS ORDERED: DOCUSATE SODIUM 100 MG (COLACE) CAP PO PRN (13:15)
[2021-08-14] MEDS ORDERED: guaiFENesin/CODEINE (ROBITUSSIN AC) 10ML UDC PO PRN (13:15)
[2021-08-14] MEDS ORDERED: LACTULOSE SYRUP 10GM/15ML (ENULOSE) 30ML UDC PO PRN (13:15)
[2021-08-14] MEDS ORDERED: LOPERAMIDE 2 MG (IMODIUM) TABLET PO PRN (13:15)
[2021-08-14] MEDS ORDERED: diphenhydrAMINE 25 MG TAB (BENADRYL) PO PRN (13:15)
[2021-08-14] MEDS ORDERED: CALCIUM CARBONATE 500 MG (TUMS) TAB.CHEW PO PRN (13:15)
[2021-08-14] MEDS ORDERED: ALLO100T PO (13:59)
[2021-08-14] MEDS ORDERED: CALC-1067 PO (13:59)
[2021-08-14] MEDS ORDERED: POTA99TA18 PO (13:59)
[2021-08-14] MEDS ORDERED: LISI2.5T13 PO (13:59)
[2021-08-14] MEDS ORDERED: ZINC50TA58 PO (13:59)
[2021-08-14] MEDS ORDERED: B-CO1TAB2 PO (13:59)
[2021-08-14] MEDS ORDERED: CHOL-34 PO (13:59)
[2021-08-14 14:10] VITALS: BP 180/95
[2021-08-14] MEDS ORDERED: cloNIDine 0.1 MG (CATAPRES) TAB PO PRN (15:15)
[2021-08-14] MEDS ORDERED: amLODIPine 5 MG (NORVASC) TAB PO NR (15:15)
[2021-08-14] MEDS ORDERED: FUROSEMIDE 20 MG (LASIX) TAB PO PRN (15:15)
[2021-08-14 15:34] VITALS: BP 133/91
--- NOTE | 2021-08-14 15:34 | Physical Therapy Evaluation ---
PT Evaluation-General Medical Diagnosis Admission Date August 14, 2021 at 14:00 Medical Diagnosis: Non-traumatic spinal cord dysfunction Onset Date: August 14, 2021 Therapy Diagnosis Therapy Diagnosis: Impaired balance, strength, mobility Height/Weight Height (Feet): 6 Height (Inches): 0.00 Weight (Pounds): 213 Weight (Ounces): 0.0 Precautions Precautions/Isolations: Fall Prevention, Standard Precautions, Pressure Ulcer Weight Bear Status Right Lower Extremity: Right Full Weight Bearing Left Lower Extremity: Left Full Weight Bearing Referral Physician: Cherie Reason for Referral: Evaluation/Treatment Medical History Pertinent Medical History: Atrial Fib, CABG, CAD, HTN, [place] Additional Medical History Prostate Cancer. Gout. Hypothyroidism. Chronic back pain. Sleep Apnea (uses oxygen at night). Surgeries: Lumbar surgery (2007, 2008), knee surgery, Prostate surgery, stent placement. Reviewed History: Yes Social History Home: Single Level Current Living Status: Spouse Entry Into Home: Stairs With Railing PT Steps Into Home: 3 Prior Prior Level of Function SCALE: Activities may be completed with or without assistive devices. 3-Viurdeyjyd-mayoeej completes the activity by him/herself with no assistance from a helper. 5-Set-up or Clean-up Assistance-helper sets up or cleans up; patient completes activity. Molena assists only prior to or following the activity. 4-Supervision or Touching Assistance-helper provides verbal cues and/or touching/steadying and/or contact guard assistance as patient completes activity. Assistance may be provided throughout the activity or intermittently. 3-Partial/Moderate Assistance-helper does LESS THAN HALF the effort. Molena lifts, holds or supports trunk or limbs, but provides less than half the effort. 2-Substantial/Maximal Assistance-helper does MORE THAN HALF the effort. Molena l ifts or holds trunk or limbs and provides more than half the effort. 7-Pfpwcfowf-utsfio does ALL the effort. Patient does none of the effort to complete the activity. Or, the assistance of 2 or more helpers is required for the patient to complete the activity. If activity was not attempted, code reason: 7-Patient Refused. 9-Not Applicable-not attempted and the patient did not perform the activity before the current illness, exacerbation or injury. 10-Not Attempted due to Environmental Limitations-(lack of equipment, weather restraints, etc.). 88-Not Attempted due to Medical Conditions or Safety Concerns. Bed Mobility: 6 Transfers (B,C,W/C): 6 Gait: 6 Stairs: 6 Indoor Mobility (Ambulation): Independent Stairs: Independent Prior Device Use: cane PT Evaluation-Current Subjective Patient was brought in to rehab today s/p lumbar fusion. patient states he does not have much pain right now, but has had numbness and tingling in both hands along with severe neck pain. Patient was co-treated with OT today due to excessive balance deficits, safety concerns, and risk of falling, and to coordinate UE activities with LE movements, standing balance, and transfers. Pain Numeric Pain Scale: 0-No Pain Pt/Family Goals To be independent at home. Objective Patient Orientation: Person, Place, Situation ROM/Strength ROM Lower Extremities B grossly WFL Strength Lower Extremities L LE: Hip flexion 4-/5, knee extension 4-/5, Knee flexion 4-/5, DF 4/5) R LE: Hip flexion 4-/5, knee extension 4-/5, Knee flexion 4-/5, DF 4/5) Integumentary/Posture Bowel Incontinence: No Bladder Incontinence: No Neuromuscular (Tone, Coordination, Reflexes) Peripheral vision and eye tracking intact. Tinetti Balance Assessment Tool: Sensory Vision: Functional Hearing: Hearing Aid/Aides Sensation Right Upper Extremit: Impaired Sensation Left Upper Extremity: Impaired Sensation Right Lower Extremit: Intact Sensation Left Lower Extremity: Intact Transfers Roll Left & Right (QC): 6 Sit to Lying (QC): 4 (SBA) Lying to Sitting/Side of Bed(Q: 4 (SBA) Sit to Stand (QC): 4 (CGA) Chair/Vgb-yq-Krlpp Xfer(QC): 4 (SBA) Toilet Transfer (QC): 4 (SBA) Car Transfer (QC): 4 (SBA) Gait Does the Patient Walk?: Yes Mode of Locomotion: Walk Anticipated Mode of Locomotion: Walk Walk 10 feet (QC): 4 (CGA) Walk 50 ft with 2 Turns(QC): 4 (CGA) Walk 150 ft (QC): 88 Walking 10ft/uneven surface-QC: 4 (CGA) Distance: 50'x2, 20', 75' Gait Assistive Device: FWW Comments/Gait Description Short step length reciprical pattern. Walker tended to get off centered. Wheelchair Training Does the Pt Use a Wheelchair?: No Wheel 50 ft with 2 turns (QC): 9 Wheel 150 ft (QC): 9 Type of Wheelchair: N/A Stairs #of Steps: 1 1 Step (curb) (QC): 4 (CGA) 4 Steps (QC): 88 12 Steps (QC): 88 Walking Assistive Device: Walker Balance Sitting Static: Good Sitting Dynamic: Good Standing Static: Fair Standing Dynamic: Poor Picking up an Object (QC): 4 (CGA using asphalt plant laborer) Treatment Ambulation, Transfers, LE strengthening. Standing balance: Nuts and bolts activity, reaching in parallel bars. PT worked on LE positioning and transfers, OT worked on UE coordination and positioning. Assessment/Needs Patient demonstrates weakness and balance deficits in LE (scored 16/28 on Tinetti, putting him at fall risk). Patient can transfer with SBA with most transfers, and CGA with sit<->stands. Patient appears unsteady with ambulation and standing balance with UE activities. He requires a seated rest break after about 2min of standing, and the furthest distance walked was 75ft before needing a seated rest break. Patient is compliant with lower back precautions. Patient was left in chair with call light, tray, and all needs met. Rehab Potential: Fair PT Short Term Goals Short Term Goals Time Frame: August 21, 2021 Roll Left & Right: 6 Sit to lyin Lying to sitting on side of be: 6 Sit to stand: 4 (SBA) Chair/vfu-jr-nuquq transfer: 6 Walk 10 feet: 4 (SBA) Walk 50 feet with two turns: 4 (SBA) Walk 150 feet: 4 (SBA) 4 steps: 4 (CGA) PT Booking Police Officer Goals Booking Police Officer Goals PT Intermediate Goals Time Frame: September 04, 2021 Roll Left & Right (QC): 6 Sit to Lying (QC): 6 Lying-Sitting on Side/Bed(QC): 6 Sit to Stand (QC): 6 Chair/Eiv-wm-Ucuxt Xfer(QC): 6 Toilet Transfer (QC): 6 Car Transfer (QC): 6 Does the Patient Walk: Yes Walk 10 feet (QC): 6 Walk 50ft with 2 Turns (QC): 6 Walk 150 ft (QC): 6 Walking 10ft on Uneven Surface: 6 1 Step (curb) (QC): 6 4 Steps (QC): 4 (SBA) 12 Steps (QC): 4 (CGA) Picking up an Object (QC): 6 Does the Pt use WC or Scooter?: No Wheel 50 feet with 2 turns (QC: 9 Type: N/A Wheel 150 feet: 9 Type: N/A PT Plan Problem List Problem List: Activity Tolerance, Functional Strength, Safety, Balance, Gait, Transfer, Bed Mobility, ROM, Other Treatment/Plan Treatment Plan: Continue Plan of Care Treatment Plan: Bed Mobility, Education, Functional Activity Rachelle, Functional Strength, Group Therapy, Gait, Safety, Therapeutic Exercise, Transfers Treatment Duration: September 04, 2021 Frequency: At least 5 of 7 days/Wk (IRF) Estimated Hrs Per Day: 1.5 hours per day Patient and/or Family Agrees t: Yes Safety Risks/Education Patient Education: Gait Training, Transfer Techniques, Steps, Reviewed Precautions, Correct Positioning, Safety Issues Teaching Recipient: Patient Teaching Methods: Demonstration, Discussion Response to Teaching: Verbalize Understanding, Return Demonstration Discharge Recommendations Plan To work on balance and LE strengthening, to return to independence at home. Therapy Discharge Recommendati: Home & Family, Post Acute PT Time/GCodes Time In: 1400 Time Out: 1540 Total Billed Treatment Time: 90 Total Billed Treatment 1 visit EVL 10min EX 30' FA 50' PT eval from 4480-2391, OT eval from [id number], PT and OT co-treated from 1420- 1340 REED ROMAN PT August 14, 2021 15:34
--- NOTE | 2021-08-14 15:38 | Occupational Therapy Eval ---
OT Evaluation-General/PLF Medical Diagnosis Admission Date August 14, 2021 at 14:00 Medical Diagnosis: Non-traumatic spinal cord dysfunction Onset Date: August 14, 2021 Therapy Diagnosis Therapy Diagnosis: reduced adl status Height/Weight Height (Feet): 6 Height (Inches): 0.00 Weight (Pounds): 213 Weight (Ounces): 0.0 Precautions Precautions/Isolations: Fall Prevention, Standard Precautions, Pressure Ulcer Comments spinal precautions Referral Physician: Cherie Referral Reason: Evaluation/Treatment Medical History Pertinent Medical History: Atrial Fib, CABG, CAD, HTN, [place], Prostate CA Current History pt s/p lumbar surgery, laminectomy. Per patient, he lives in a single story home with his . He was indep with adls and he shares IADL responsibilities with his . He used a SPC prior to admission. Reviewed History: Yes Social History Home: Single Level Current Living Status: Spouse Entry Into Home: Stairs Without Railing Steps Into Home: 3 ADL-Prior Level of Function SCALE: Activities may be completed with or without assistive devices. 6-Ghmqeksght-aainmgi completes the activity by him/herself with no assistance from a helper. 5-Set-up or Clean-up Assistance-helper sets up or cleans up; patient completes activity. [place]wood assists only prior to or following the activity. 4-Supervision or Touching Assistance-helper provides verbal cues and/or touching/steadying and/or contact guard assistance as patient completes activity. Assistance may be provided throughout the activity or intermittently. 3-Partial/Moderate Assistance-helper does LESS THAN HALF the effort. Sherwood lifts, holds or supports trunk or limbs, but provides less than half the effort. 2-Substantial/Maximal Assistance-helper does MORE THAN HALF the effort. [place]wood lifts or holds trunk or limbs and provides more than half the effort. 1-Iiwvjciqb-zzhygd does ALL the effort. Patient does none of the effort to complete the activity. Or, the assistance of 2 or more helpers is required for the patient to complete the activity. If activity was not attempted, code reason: 7-Patient Refused. 9-Not Applicable-not attempted and the patient did not perform the activity before the current illness, exacerbation or injury. 10-Not Attempted due to Environmental Limitations-(lack of equipment, weather restraints, etc.). 88-Not Attempted due to Medical Conditions or Safety Concerns. Self Care: Independent Functional Cognition: Independent DME/Equipment: Bath Chair, Grab Bars Drive Self: Yes OT Current Status Subjective Pt c/o pain in neck, R side. Unable to rotate head towards right Co-treat with PT for part of session secondary to severe weakness, fatigue, unpredictable knee buckling, and need of 2 skilled clinicians to progress indep and safety with adls and mobility Appearance Pt left sitting in recliner, all needs within reach. Mental Status/Objective Patient Orientation: Person, Place, Situation Current Glasses/Contacts: Yes Hearing Aids: Yes (bilateral) Dentures/Partials: Yes (top and bottom) Hand Dominance: Right Upper Extremity ROM WNL except finger opposition (thumb to 4th digit) Upper Extremity Strength Not tested secondary to recent surgery ADL-Treatment Eating (QC): 4 Oral Hygiene (QC): 88 Shower/Bathe Self (QC): 7 Upper Body Dressing (QC): 7 Lower Body Dressing (QC): 2 On/Off Footwear (QC): 2 Toileting Hygiene (QC): 2 Pt sitting in chair at therapy arrival. Agreeable to eval. Full bathing/dressing tasks not performed as pt was already dressed for the day. Defer until tomorrow. Pt is able to recall spinal precautions but often requires reminders of no bending during functional tasks or when taking breaks (as pt has tendency to rest elbows/head on table/knees). Due to weakness, Assist needed to lift/cross BLE's in order for pt to don/doff socks, extra effort noted. Assist needed to don sock over toes due to impaired sensation in hands. Pt exhibits Very poor activity tolerance, needing several short rest breaks throughout activities. Pt often becomes SOA, desats to high 80's. Cues for PLB. HR ranging from 112-122 bpm when spot checked throughout. Pt ambulated throughout unit, longest distance ~75 feet with min-mod a and use of walker. Cues for walker management as pt has tendency to push too far anteriorly. Unpredictable knee buckling notable, especially as fatigue increases. Pt stood to complete large nuts/bolts board with focus on promoting increased dexterity, inspector watch assembly/pinch strength, FM coordination, standing tolerance and balance. Pt only able to tolerate standing to complete 4 nuts/bolts at a time before requiring a sitting rest break (~2 min). Due to reduced sensation and hand strength, pt often dropping nuts/bolts and demonstrates difficulty manipulating in hand. Pt performed standing activities in parallel bars, increased balance assist needed when removing 1-2 UE support or when reaching out of JOHN. Heavy reliance on UE support needed for balance. 9 Hole peg test performed: Scores of 1:11 on R and 0:52 on L. (below average). Dynamometer scores: R: 43.3 (average 65.7), L: 78.6 (average-55). OT provided pt with built up handle for silverware during meals. Education OT Patient Education: Correct positioning, Disease process, Energy conservation, Modified ADL techniques, Purpose of tx/functional activities, Reviewed precautions, Rehab process, Safety issues, Transfer techniques, Use of adapted equipment Teaching Recipient: Patient Teaching Methods: Demonstration Response to Teaching: Verbalize Understanding, Return Demonstration, Reinforcement Needed OT Short Term Goals Short Term Goals Time Frame: August 23, 2021 Eatin Oral hygiene: 88 Toileting hygiene: 3 Shower/bathe self: 3 Upper body dressin Lower body dressin Putting on/taking off footwear: 3 OT Construction Project Coordinator Goals Construction Project Coordinator Goals Time Frame: September 04, 2021 Eating (QC): 6 Oral Hygiene (QC): 88 Toileting Hygiene (QC): 6 Shower/Bathe Self (QC): 5 Upper Body Dressing (QC): 5 Lower Body Dressing (QC): 5 On/Off Footwear (QC): 5 1=Demonstrate adherence to instructed precautions during ADL tasks. 2=Patient will verbalize/demonstrate understanding of assistive devices/modifications for ADL. 3=Patient will improve strength/tolerance for activity to enable patient to perform ADL's. OT Education/Plan Problem List/Assessment Assessment: Decreased Activ Tolerance, Decreased Safety Aware, Decreased UE Strength, Impaired Cognition, Impaired Coordination, Impaired Funct Balance, Impaired I ADL's, Impaired Self-Care Skills Discharge Recommendations Plan/Recommendations: Continue POC Therapy Discharge Recommendati: Post Acute OT (home health ) Treatment Plan/Plan of Care Treatment,Training & Education: Yes Patient would benefit from OT for education, treatment and training to promote independence in ADL's, mobility, safety and/or upper extremity function for ADL's. Plan of Care: ADL Retraining, Functional Mobility, Group Exercise/Act as Ind, UE Funct Exercise/Act Treatment Duration: September 04, 2021 Frequency: At least 5 of 7 days/Wk (IRF) Estimated Hrs Per Day: 1.5 hours per day (60-90 min/day) Agreement: Yes Rehab Potential: Fair Time/GCodes Start Time: 14:10 Stop Time: 15:40 Total Time Billed (hr/min): 90 Billed Treatment Time 1 visit EVM (10 min) ADL x2 (30 min) FA x3 (50 min) Kristin Orellana OT August 14, 2021 15:38
[2021-08-14] MEDS: CALCIUM CARB + VIT D 600 MG (CALCARB + D) TAB PO SCH (17:08)
[2021-08-14 19:38] VITALS: BP 107/52
[2021-08-14 20:18] VITALS: BP 134/72
[2021-08-14] MEDS ORDERED: NON-FORMULARY MEDICATION 1 EA EA (Magnesium Oxide (Magnesium) 400 MG) PO SCH (21:00)
[2021-08-14] MEDS ORDERED: VITAMIN D3 PO SCH (21:00)
[2021-08-14] MEDS: polyethylene glycoL POWDER 17 GM (MIRALAX) PACK PO SCH (21:00)
[2021-08-14] MEDS ORDERED: meTOproloL SUCCINATE 50 MG (TOPROL XL) TAB PO SCH (21:00)
[2021-08-14] MEDS ORDERED: [UNRECOGNIZED DRUG - OTHER] PO SCH (21:00)
[2021-08-14] MEDS: SENNA W/DOCUSATE (SENOKOT S) TABLET PO SCH (21:00)
[2021-08-14] MEDS ORDERED: CALCIUM CARBONATE PO SCH (21:00)
[2021-08-14] MEDS ORDERED: NON-FORMULARY MEDICATION 1 EA EA (Lisinopril 2.5 MG) PO SCH (21:00)
[2021-08-14] MEDS ORDERED: NON-FORMULARY MEDICATION 1 EA EA (Ranolazine (Ranolazine ER) 1,000 MG) PO SCH (21:00)
[2021-08-14] MEDS: DOCUSATE SODIUM 100 MG (COLACE) CAP PO SCH (21:00)
[2021-08-14] MEDS: MAGNESIUM OXIDE (MAG-OX)400 MG TAB PO SCH (21:37)
[2021-08-14] MEDS: doxAzosin 4 MG (CARDURA) TAB PO SCH (21:37)
[2021-08-14] MEDS: ALLOPURINOL 100 MG (ZYLOPRIM) TAB PO SCH (21:37)
[2021-08-14] MEDS: RANOLAZINE ER 500 MG TAB (RANEXA) PO SCH (21:38)
[2021-08-14] MEDS: APIXABAN 5 MG (ELIQUIS) TABLET PO SCH (21:38)
[2021-08-14] MEDS: ASPIRIN E.C. 81 MG (ECOTRIN) TAB PO SCH (21:38)
[2021-08-14] MEDS: lisINopril 5 MG (PRINIVIL) TABLET PO SCH (21:38)
[2021-08-14] MEDS: DRONEDARONE 400 MG TABLET PO SCH (21:38)
[2021-08-15 05:53] LABS: BASOPHILS % (AUTO) 0 % (0-10); EOSINOPHILS # (AUTO) 0.2 10^3/uL (0.0-0.3); EOSINOPHILS % (AUTO) 2 % (0-10); HEMATOCRIT 29 % (40-54); HEMOGLOBIN 9.8 g/dL (13.3-17.7); LYMPHOCYTES # (AUTO) 1.6 10^3/uL (1.0-4.0); LYMPHOCYTES % (AUTO) 13 % (12-44); MEAN CORPUSCULAR HEMOGLOBIN 35 pg (25-34); MEAN CORPUSCULAR HGB CONC 34 g/dL (32-36); MEAN CORPUSCULAR VOLUME 100 fL (80-99); MEAN PLATELET VOLUME 9.6 fL (9.0-12.2); MONOCYTES # (AUTO) 1.3 10^3/uL (0.0-1.0); MONOCYTES % (AUTO) 11 % (0-12); NEUTROPHILS # (AUTO) 8.6 10^3/uL (1.8-7.8); NEUTROPHILS % (AUTO) 73 % (42-75); PLATELET COUNT 241 10^3/uL (130-400); WHITE BLOOD COUNT 11.8 10^3/uL (4.3-11.0)
--- NOTE | 2021-08-15 06:06 | PM&R Post Admission Assessment ---
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 Baeza who has a history of CAD previous stent placement x7, CABG four-vessel, atrial fibrillation and inoperable CAD who underwent a lumbar spine surgery on 07/24/2021 with TLIF L3-4 posterior fusion and repair of a previous dural opening. Postop chest pain with elevated troponin reported and chest pain resolved but patient will require aggressive rehabilitation in order to return back to independent living with the spouse. He did finish Ancef after postop fever noted and drain was removed on 08/01 with drainage on 08/02 and required going back to the OR on 422 for 6-hour procedure postop CSF leak. He was previously independent with prior level of functioning and now he is supervision with contact-guard assist with bed mobility. His blood pressure required intervention due to elevation upon admit and I did review all of his home medication and have consulted Dr. Subramanian for cardiology consultation. Orthostasis occurred this morning before meds given so holding BP meds and givi ng IVF 500cc IV now and will monitor closely. Patient has not had a good intake of nutrition at [facility]. He has had weight loss. BM+. Past Cfaswss-Dmwxks-Bwcelu Hx Past Med/Social Hx: Reviewed Nursing Past Med/Soc Hx, Reviewed and Corrections made Patient Social History Marrital Status: Employed/Student: retired Alcohol Use: Denies Use Smoking Status: Current Everyday Smoker Type Used: Cigarettes 2nd Hand Smoke Exposure: Yes Recent Hopitalizations: No Immunizations Up To Date Tetanus Booster (TDap): More than 5yrs Date of Pneumonia Vaccine: Nov 12, 2016 Date of Influenza Vaccine: Feb 13, 2021 Seasonal Allergies Seasonal Allergies: No Past Medical History Surgeries: Abdominal, CABG, Coronary Stent, Orthopedic, Prostatectomy Currently Using CPAP: Yes Currently Using BIPAP: No Cardiac: Atrial Fibrillation, Coronary Artery Disease, High Cholesterol, Hype rtension Reproductive: No Genitourinary: Prostate Problems Gastrointestinal: Abdominal Hernia, Gastroesophageal Reflux Musculoskeletal: Arthritis, Chronic Back Pain, Gout Endocrine: Hypothyroidsim Cancer: Prostate, Skin Did You Recieve Any Treatments: Yes What Type of Treatment Did You: Radiation, Surgical Intervention History of Blood Disorders: No Adverse Reaction to Blood Horowitz: No Family History Cardiovascular disease 19 MOTHER Myocardial infarction 19 FATHER Heart Disease, CAD Over 55 Years Old, Hypertension Prior Level of Function Bed Mobility: 6 Transfers: 6 Gait: 6 Stairs: 6 Indoor Mobility (Ambulation): Independent Stairs: Independent cane Self Care: Independent Functional Cognition: Independent Drive Self: Yes Current Level of Fuctioning Roll Left to Right: 6 Sit to Lyin (SBA) Lying to Sitting/Side of Bed: 4 (SBA) Sit to Stand: 4 (CGA) Chair/Ihc-al-Chbkk Xfer: 4 (SBA) Car Transfer: 4 (SBA) Does the Patient Walk: Yes Mode of Locomotion: Walk Anticipated Mode of Locomotion: Walk Walk 10 feet: 4 (CGA) Walk 50 ft with 2 Turns: 4 (CGA) Walk 150 ft: 88 Walking 10ft on uneven surface: 4 (CGA) Gait Assistive Device: FWW Does the Pt Use a Wheelchair: No Wheel 50 ft with 2 turns: 9 Wheel 150 ft: 9 Type of Wheelchair: N/A 1 Step (curb): 4 (CGA) 4 Steps: 88 Walking Assistive Device: Walker 12 Steps: 88 Picking up an Object: 4 (CGA) Eatin Oral Hygiene: 88 Shower/Bathe Self: 7 Upper Body Dressin Lower Body Dressin On/Off Footwear: 2 Toileting Hygiene: 2 PM&R Allergy/Meds/Data Review Allergies Coded Allergies: No Known Drug Allergies (Verified , 02/23/08) Home Medications Scheduled Allopurinol (Allopurinol), 200 MG PO DAILY, (Reported) Allopurinol (Allopurinol), 100 MG PO HS, (Reported) Apixaban (Eliquis), 5 MG PO BID, (Reported) Aspirin (Aspirin EC), 81 MG PO HS, (Reported) Atorvastatin Calcium (Atorvastatin Calcium), 40 MG PO HS, (Reported) B-Complex with Vitamin C (Vitamin B Complex-Vitamin C), 1 EACH PO DAILY, (Reported) Calcium Carbonate/Vitamin D3 (Calcium 600-D3 20Mcg(800 Unit)), 1 EACH PO HS, (Reported) Cholecalciferol (Vitamin D3) (Vitamin D3), 25 MCG PO DAILY, (Reported) Doxazosin Mesylate (Doxazosin Mesylate), 4 MG PO HS, (Reported) Dronedarone HCl (Multaq), 400 MG PO BID, (Reported) Levothyroxine Sodium (Levothyroxine Sodium), 50 MCG PO DAILY, (Reported) Lisinopril (Lisinopril), 2.5 MG PO BID, (Reported) Magnesium Oxide (Magnesium), 400 MG PO HS, (Reported) Metoprolol Succinate (Metoprolol Succinate), 50 MG PO HS, (Reported) Multivit-Min/FA/Lycopene/Lut (Centrum Silver Ultra Men's Tab), 1 EACH PO DAILY, (Reported) Pantoprazole Sodium (Pantoprazole Sodium), 40 MG PO DAILY, (Reported) Potassium Gluconate (Potassium Gluconate), 99 MG PO DAILY, (Reported) Ranolazine (Ranolazine ER), 1,000 MG PO BID, (Reported) Zinc (Zinc), 50 MG PO DAILY, (Reported) Scheduled PRN Furosemide (Furosemide), 20 MG PO DAILY PRN for FLUID RETENTION, (Reported) Hydrocodone/Acetaminophen (Hydrocodone-Acetamin 10-325 mg), 2 EA PO Q6H PRN for PAIN-MODERATE (5-7), (Reported) Discontinued Medications Clopidogrel Bisulfate (Clopidogrel), 75 MG PO DAILY Discontinued Reason: No Longer Taking Lisinopril (Lisinopril), 0 MG PO DAILY@0900 Discontinued Reason: No Longer Taking [place]-3 Fatty Acids/Fish Oil ([place] 3 Fish Oil Softgel), 1 EACH PO DAILY, (Reported) Discontinued Reason: Duplicate Order Vitamin B Complex (B Complex), 1 EACH PO HS, (Reported) Discontinued Reason: Prescription changed Current Medications Current Medications Reviewed Laboratory Data Laboratory Tests 08/15/21 05:38: White Blood Count 11.8H, Red Blood Count 2.84L, Hemoglobin 9.8L, Hematocrit 29L, Mean Corpuscular Volume 100H, Mean Corpuscular Hemoglobin 35H, Mean Corpuscular Hemoglobin Concent 34, Red Cell Distribution Width 13.5, Platelet Count 241, Mean Platelet Volume 9.6, Immature Granulocyte % (Auto) 1, Neutrophils (%) (Auto) 73, Lymphocytes (%) (Auto) 13, Monocytes (%) (Auto) 11, Eosinophils (%) (Auto) 2, Basophils (%) (Auto) 0, Neutrophils # (Auto) 8.6H, Lymphocytes # (Auto) 1.6, Monocytes # (Auto) 1.3H, Eosinophils # (Auto) 0.2, Basophils # (Auto) 0.0, Immature Granulocyte # (Auto) 0.1 Review of Systems Constitutional: see HPI, malaise, weakness EENTM: no symptoms reported Respiratory: no symptoms reported Cardiovascular: no symptoms reported Gastrointestinal: abdominal pain, constipation, loss of appetite Genitourinary: no symptoms reported Musculoskeletal: back pain Skin: no symptoms reported Psychiatric/Neurological: Anxiety, Depressed All Other Systems Reviewed Negative Unless Noted: Yes Physical Exam Physical Exam Vital Signs Vital Signs - First Documented 08/14/21 14:10 Temp 37.3 Pulse 95 Resp 20 B/P (MAP) 180/95 (123) Pulse Ox 99 O2 Delivery Room Air Capillary Refill : Height, Weight, BMI Height: 6'0.00" Weight: 213lbs. 0.0oz. 96.310724ho; 26.99 BMI Method:Stated General Appearance: No Apparent Distress, WD/WN, Chronically ill Eyes: Bilateral Eye Normal Inspection, Bilateral Eye PERRL HEENT: PERRL/EOMI, Normal ENT Inspection, Pharynx Normal Neck: Full Range of Motion, Normal Inspection, Non Tender, Supple, Carotid Bruit Respiratory: Chest Non Tender, Lungs Clear, Normal Breath Sounds, No Accessory Muscle Use, No Respiratory Distress Cardiovascular: Regular Rate, Rhythm, No Edema, No Gallop, No JVD, No Murmur, Normal Peripheral Pulses Gastrointestinal: Normal Bowel Sounds, No Organomegaly, No Pulsatile Mass, Non Tender, Soft Back: Decreased Range of Motion, Muscle Spasm, Vertebral Tenderness Extremity: Normal Capillary Refill, Normal Inspection, Normal Range of Motion, Non Tender, No Calf Tenderness, No Pedal Edema Neurologic/Psychiatric: Alert, Oriented x3, No Motor/Sensory Deficits, Normal Mood/Affect, Abnormal Gait, Motor Weakness Skin: Normal Color, Warm/Dry Lymphatic: No Adenopathy PM&R Medical Assessment & Plan REHAB/MEDICAL ASSESSMENT AND PLAN: REHAB IMPAIRMENT GROUP: Myopathy ETIOLOGIC DIAGNOSIS: Myopathy The comorbidities that impact the patients function and/or functional outcome by: Current smoker, COPD, hypertension, CAD, fall risk REHAB PLAN: The patient is being admitted to our comprehensive inpatient rehabilitation facility and can tolerate the intensity of service consisting of at least: 180 minutes of therapy a day, 5 out of 7 days a week Rehab treatment will consist of: PT and OT will focus on regaining function with the use of assistive devices in order to return back to independent living The patient/family has a good understanding of our discharge process and will benefit from an interdisciplinary inpatient rehabilitation program. The patient has potential to make improvement and is in need of at least two of the following multidisciplinary therapies including but not limited to physical, occupational, speech, and prosthetics and orthotics. Additionally the patient will need services from respiratory, nutritional services, wound care, psychology, etc. (Customize this to each patient). Given the patients complex condition and risk of further medical complications, rehabilitation services cannot be safely or effectively provided at a lower level of care such as a fci facility. BARRIERS TO DISCHARGE: Severe weakness ESTIMATED LOS: 7 days DISPOSITION: Home with spouse RELEVANT CHANGES SINCE PREADMISSION SCREENING: I have compared the patients medical and functional status at the time of the preadmission screening and there are: No changes PROGNOSIS: Fair REHABILITATION GOALS: 1. PT and OT will focus on regaining function with the use of assistive devices in order to return back to independent living All the above goals were reviewed with the patient and he/she is in agreement. By signing this document, I acknowledge that I have personally performed a full physical examination on this patient within 24 hours of admission to this inpatient rehabilitation facility and have determined the patient to be able to tolerate the above course of treatment at an intensive level for a reasonable period of time. I will be completing a detailed individualized Plan of Care for this patient by day #4 of the patients stay based upon the Preadmission Screen, the Post-Admission Evaluation, and the therapy evaluations. 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
[2021-08-15 06:12] LABS: POTASSIUM 3.8 MMOL/L (3.6-5.0)
[2021-08-15 06:13] LABS: CALCIUM 8.8 MG/DL (8.5-10.1)
[2021-08-15 06:15] LABS: TOTAL PROTEIN 5.6 GM/DL (6.4-8.2)
[2021-08-15 06:16] LABS: BILIRUBIN,TOTAL 0.7 MG/DL (0.1-1.0)
[2021-08-15 06:18] LABS: CREATININE SERUM 1.17 MG/DL (0.60-1.30)
[2021-08-15] MEDS: MULTIVIT W/MINERALS TAB (THERAGRAN M) PO SCH (06:39)
[2021-08-15] MEDS: LEVOTHYROXINE 50 MCG (LEVOTHROID) TAB PO SCH (06:39)
[2021-08-15] MEDS: ZINC SULFATE 220 MG CAPSULE PO SCH (07:28)
[2021-08-15] MEDS: DOCUSATE SODIUM 100 MG (COLACE) CAP PO SCH ×2 (07:30→21:00)
[2021-08-15] MEDS: APIXABAN 5 MG (ELIQUIS) TABLET PO SCH ×2 (07:31→20:58)
[2021-08-15] MEDS: polyethylene glycoL POWDER 17 GM (MIRALAX) PACK PO SCH ×2 (07:31→21:00)
[2021-08-15] MEDS: DRONEDARONE 400 MG TABLET PO SCH ×2 (07:32→20:57)
[2021-08-15] MEDS: amLODIPine 5 MG (NORVASC) TAB PO SCH ×2 (07:33→10:09)
[2021-08-15] MEDS: PANTOPRAZOLE 40 MG (PROTONIX) TAB PO SCH (07:34)
[2021-08-15] MEDS: SENNA W/DOCUSATE (SENOKOT S) TABLET PO SCH ×2 (07:35→21:00)
[2021-08-15] MEDS: RANOLAZINE ER 500 MG TAB (RANEXA) PO SCH ×2 (07:35→20:57)
[2021-08-15] MEDS: VITAMIN D3 25 MCG (1,000 UNITS) TABLET PO SCH (07:36)
[2021-08-15] MEDS: lisINopril 5 MG (PRINIVIL) TABLET PO SCH ×2 (07:38→10:09)
[2021-08-15] MEDS: ALLOPURINOL 100 MG (ZYLOPRIM) TAB PO SCH ×2 (07:40→20:58)
[2021-08-15 08:00] VITALS: BP 101/76
[2021-08-15] MEDS: ONDANSETRON 4 MG (ZOFRAN) ORAL DISSOLVE TAB PO PRN ×2 (08:22→18:16)
[2021-08-15] MEDS ORDERED: [UNRECOGNIZED DRUG - OTHER] PO SCH (09:00)
[2021-08-15] MEDS ORDERED: NON-FORMULARY MEDICATION 1 EA EA (Zinc 50 MG) PO SCH (09:00)
[2021-08-15] MEDS ORDERED: B COMPLEX WITH VITAMIN C PO SCH (09:00)
[2021-08-15] MEDS ORDERED: [UNRECOGNIZED DRUG - OTHER] PO SCH (09:00)
[2021-08-15] MEDS ORDERED: NON-FORMULARY MEDICATION 1 EA EA (Potassium Gluconate 99 MG) PO SCH (09:00)
[2021-08-15 09:33] VITALS: BP 72/46
[2021-08-15 10:00] VITALS: BP 91/55
[2021-08-15] MEDS ORDERED: NS IV 1000 ML 1,000 ML IV SCH (10:00)
--- NOTE | 2021-08-15 10:03 | Occupational Ther Daily Note ---
OT Current Status-Daily Note Subjective 1st tx: Pt up in recliner with PT upon OT arrival, agreeable to therapy. Pt states he doesn't feel good, no c/o NELSON, but feels like he "comes and goes". BP taken in sitting, 72/46, transferred supine in bed, then 91/58. 2nd tx: Pt in bed, states he feels better than this morning, he is receiving bolus of fluid. Mental Status/Objective Patient Orientation: Person, Place, Situation ADL-Treatment Therapy Code Descriptions/Definitions Functional [place] Measure: 0=Not Assessed/NA 4=Minimal Assistance 1=Total Assistance 5=Supervision or Setup 2=Maximal Assistance 6=Modified [place] 3=Moderate Assistance 7=Complete IndependenceSCALE: Activities may be completed with or without assistive devices. 9-Lqaqqlmaca-mqygpol completes the activity by him/herself with no assistance from a helper. 5-Set-up or Clean-up Assistance-helper sets up or cleans up; patient completes activity. [place] assists only prior to or following the activity. 4-Supervision or Touching Assistance-helper provides verbal cues and/or touching/steadying and/or contact guard assistance as patient completes activity. Assistance may be provided throughout the activity or intermittently. 3-Partial/Moderate Assistance-helper does LESS THAN HALF the effort. [place] lifts, holds or supports trunk or limbs, but provides less than half the effort. 2-Substantial/Maximal Assistance-helper does MORE THAN HALF the effort. [place] lifts or holds trunk or limbs and provides more than half the effort. 2-Rkswslfky-gbfhxu does ALL the effort. Patient does none of the effort to complete the activity. Or, the assistance of 2 or more helpers is required for the patient to complete the activity. If activity was not attempted, code reason: 7-Patient Refused. 9-Not Applicable-not attempted and the patient did not perform the activity bef ore the current illness, exacerbation or injury. 10-Not Attempted due to Environmental Limitations-(lack of equipment, weather r estraints, etc.). 88-Not Attempted due to Medical Conditions or Safety Concerns. Shower/Bathe Self (QC): 2 (Max A sponge bath at bed level.) Upper Body Dressing (QC): 3 (Min A doffing robe) Other Treatment [id number]: OT/PT cotreat due to skill of 2 clinicians required which a rehabilitation center manager could not perform in order to coordinate UE/LEs, decrease fall risk, and due to pt's limitations in strength and activity tolerance. OT focused on UE placement, cues for sequencing and safety, and ADLs, PT focused on LE placement, gross overall movement, transfers/mobility. Pt seated in recliner, cool wash rag on forehead, agreeable to sponge bath. OT set up for ADL session. Pt does not c/o headache, but feels like he "comes and goes". Nurse notified and BP taken, 72/46 seated in recliner. Pt assisted from recliner to EOB, then supine. BP taken again, 91/53 supine. Sponge bath performed at bed level, post bath, BP 91/58. 2L NC placed on pt per nursing request due to pt supine in bed. Post tx, pt in bed, call light in reach and all needs met. [id number]: OT Tx focused on increasing BUE strength and activity tolerance. Pt supine in bed, received bolus of fluids. Pt states he feels a lot better than he did during the first tx. Pt completed 2x25 reps BUE shoulder flexion, 2x30 reps BUE front punch. Pt took rest breaks between each exercise, talking about his medical history and stories about his life. Post tx, pt in bed, call light in reach and all needs met. Education OT Patient Education: Correct positioning, Progress toward Goal/Update tx plan, Purpose of tx/functional activities, Reviewed precautions Teaching Recipient: Patient Teaching Methods: Discussion Response to Teaching: Verbalize Understanding OT Short Term Goals Short Term Goals Time Frame: August 23, 2021 Eatin Oral hygiene: 88 Toileting hygiene: 3 Shower/bathe self: 3 Upper body dressin Lower body dressin Putting on/taking off footwear: 3 OT Can [place] Goals Snf Goals Time Frame: September 04, 2021 Eating (QC): 6 Oral Hygiene (QC): 88 Toileting Hygiene (QC): 6 Shower/Bathe Self (QC): 5 Upper Body Dressing (QC): 5 Lower Body Dressing (QC): 5 On/Off Footwear (QC): 5 1=Demonstrate adherence to instructed precautions during ADL tasks. 2=Patient will verbalize/demonstrate understanding of assistive devices/modifications for ADL. 3=Patient will improve strength/tolerance for activity to enable patient to perform ADL's. OT Education/Plan Problem List/Assessment Assessment: Decreased Activ Tolerance, Decreased UE Strength, Impaired Funct Balance, Impaired I ADL's, Impaired Self-Care Skills Discharge Recommendations Plan/Recommendations: Continue POC Treatment Plan/Plan of Care Patient would benefit from OT for education, treatment and training to promote independence in ADL's, mobility, safety and/or upper extremity function for ADL's. Plan of Care: ADL Retraining, Functional Mobility, Group Exercise/Act as Ind, UE Funct Exercise/Act Treatment Duration: September 04, 2021 Frequency: At least 5 of 7 days/Wk (IRF) Estimated Hrs Per Day: 1.5 hours per day (60-90 min/day) Agreement: Yes Rehab Potential: Fair Time/GCodes Start Time: 09:00 ([id number]) Stop Time: 11:15 ([id number]) Total Time Billed (hr/min): 75 Billed Treatment Time [id number]: Cotreat x45' 1, ADL 3 [id number] OT tx 1, EX 2 ARLENE JULIO OT August 15, 2021 10:03
[2021-08-15] MEDS ORDERED: NS IV 1000 ML 1,000 ML IV STA (10:04)
[2021-08-15] MEDS ORDERED: NS IV 1000 ML 1,000 ML ONE (10:23)
--- NOTE | 2021-08-15 11:05 | Physical Therapy Daily Note ---
PT Daily Note-Current Subjective Pt sitting up in recliner upon arrival. Pt and Nurse report pt is feeling nauseated this morning after eating breakfast. Nausea med given. Pain Location Body Site: Neck Pain Description: Ache Comment: Reports neck pain but doesn't rate Mental Status Patient Orientation: Person, Place, Time, Situation Attachments: Oxygen (2L at night or laying down) Transfers SCALE: Activities may be completed with or without assistive devices. 4-Frhyycpzvs-npcxfpf completes the activity by him/herself with no assistance from a helper. 5-Set-up or Clean-up Assistance-helper sets up or cleans up; patient completes activity. [place] assists only prior to or following the activity. 4-Supervision or Touching Assistance-helper provides verbal cues and/or touching/steadying and/or contact guard assistance as patient completes activity. Assistance may be provided throughout the activity or intermittently. 3-Partial/Moderate Assistance-helper does LESS THAN HALF the effort. [place] lifts, holds or supports trunk or limbs, but provides less than half the effort. 2-Substantial/Maximal Assistance-helper does MORE THAN HALF the effort. [place] lifts or holds trunk or limbs and provides more than half the effort. 2-Zmkdeypne-hnwifg does ALL the effort. Patient does none of the effort to complete the activity. Or, the assistance of 2 or more helpers is required for the patient to complete the activity. If activity was not attempted, code reason: 7-Patient Refused. 9-Not Applicable-not attempted and the patient did not perform the activity before the current illness, exacerbation or injury. 10-Not Attempted due to Environmental Limitations-(lack of equipment, weather restraints, etc.). 88-Not Attempted due to Medical Conditions or Safety Concerns. Roll Left & Right (QC): 4 Sit to Lying (QC): 4 Sit to Stand (QC): 3 Weight Bearing Right Lower Extremity: Right Full Weight Bearing Left Lower Extremity: Left Full Weight Bearing Exercises Supine Ex: Ankle pumps, Quad Set, Heel Slides, Hip abd/add Supine Reps: 15 Seated Therapy Exercises: Ankle pumps, Long arc quads, Hip flexion Seated Reps: 15 Treatments [id number]: Pt is issued and reviews Supine & Seated Ex from [facility] with several RB as needed for fatigue and feeling nauseated. [id number]: OT/PT cotreat due to skill of 2 clinicians required which a rehab consultant could not perform in order to coordinate UE/LEs, decrease fall risk, and due to pt's limitations in strength and activity tolerance. OT focused on UE placement, cues for sequencing and safety, and ADLs, PT focused on LE placement, gross overall movement, transfers/mobility. Pt seated in recliner, cool wash rag on forehead, agreeable to sponge bath. OT set up for ADL session. Pt does not c/o headache, but feels like he "comes and goes". Nurse notified and BP taken, 72/46 seated in recliner. Pt assisted from recliner to EOB, then supine. BP taken again, 91/53 supine. Sponge bath performed at bed level, post bath, BP 91/58. 2L NC placed on pt per nursing request due to pt supine in bed. Post tx, pt in bed, call light in reach and all needs met. Assessment Current Status: Fair Progress Pt reports feeling light-headed during tx so BP is monitored and pt transfers back to bed. Pt fatigues quickly and feels ill during tx. PT Short Term Goals Short Term Goals Time Frame: August 21, 2021 Roll Left & Right: 6 Sit to lyin Lying to sitting on side of be: 6 Sit to stand: 4 (SBA) Chair/fyj-mb-hezgg transfer: 6 Walk 10 feet: 4 (SBA) Walk 50 feet with two turns: 4 (SBA) Walk 150 feet: 4 (SBA) 4 steps: 4 (CGA) PT Thermometer Production Worker Goals Thermometer Production Worker Goals PT Custodial Goals Time Frame: September 04, 2021 Roll Left & Right (QC): 6 Sit to Lying (QC): 6 Lying-Sitting on Side/Bed(QC): 6 Sit to Stand (QC): 6 Chair/Lfu-pq-Rgqkk Xfer(QC): 6 Toilet Transfer (QC): 6 Car Transfer (QC): 6 Does the Patient Walk: Yes Walk 10 feet (QC): 6 Walk 50ft with 2 Turns (QC): 6 Walk 150 ft (QC): 6 Walking 10ft on Uneven Surface: 6 1 Step (curb) (QC): 6 4 Steps (QC): 4 (SBA) 12 Steps (QC): 4 (CGA) Picking up an Object (QC): 6 Does the Pt use WC or Scooter?: No Wheel 50 feet with 2 turns (QC: 9 Type: N/A Wheel 150 feet: 9 Type: N/A PT Plan Problem List Problem List: Activity Tolerance, Functional Strength Treatment/Plan Treatment Plan: Continue Plan of Care Treatment Plan: Bed Mobility, Education, Functional Activity Rachelle, Functional Strength, Group Therapy, Gait, Safety, Therapeutic Exercise, Transfers Treatment Duration: September 04, 2021 Frequency: At least 5 of 7 days/Wk (IRF) Estimated Hrs Per Day: 1.5 hours per day Patient and/or Family Agrees t: Yes Safety Risks/Education Patient Education: Issued Written HEP Teaching Recipient: Patient Teaching Methods: Discussion Response to Teaching: Verbalize Understanding, Return Demonstration Time/GCodes Time In: 830 Time Out: 945 Total Billed Treatment Time: 75 Total Billed Treatment 1, EX x2 (30m) & FA x3 (45m) Co-treat w/OT for 45m (210-924) JARED HEWITT MILLER HELPER DISTILLERY August 15, 2021 11:05
[2021-08-15 11:55] VITALS: BP 101/54
--- NOTE | 2021-08-15 12:17 | ST Cognitive Linguistic Eval ---
Speech Evaluation-General Medical Diagnosis Non-traumatic Spinal Cord Dysfunction Onset Date: August 14, 2021 Therapy Diagnosis Therapy Diagnosis: Intact Neurocognitive Skills Precautions Precautions: Fall Precautions/Isolations: Fall Prevention, Standard Precautions Referral Referring Physician: Dr. Kenzie Crespo Reason for Referral: Evaluation/Treatment Medical History Pertinent Medical History: Atrial Fib, CABG, CAD, HTN, MS Current History The patient is a 80 year-old male with a past medical history of CAD (CABG), atrial fibrillation, high cholesterol, HTN, and GERD, who presented to [facility] following a lumbar spine surgery on 07/24/2021 with TLIF L3-4 posterior fusion and repair of a previous dural opening. Reviewed History: Yes Social History Current Living Status: Spouse Speech PLF-Current Status Prior Level of Function The patient denied prior challenges with speech, language or cognition. The patient reports speech, language and cognition are currently at baseline. Subjective The patient was lying in bed, awake and alert upon entrance to his room by the clinician. The patient greeted the clinician and was agreeable to participation in the cognitive linguistic assessment. Language Eval: Auditory Comprehends Simple Yes/No Ques: Functional Indent/Objects Multiple Snow: Functional Ident/Pics in Multiple Snow: Functional Follows 1-Step Commands: Functional Follows General Conversations: Functional Language Eval: Verbal Language Completes Spontaneous Greeting: Functional Produces Auto, Serial Info: Functional Imitates Simple Words/Phrases: Functional Word Finding: Mild Requests Basic Needs: Functional States Basic Personal Info: Functional Language Evaluation: Reading Follows Simple Written Direct: Functional Language Evaluation: Writing Writes to Simple Dictation: Functional Cognitive Patient Orientation The patient was independently oriented to self, location, month, day of week, date, and year. Objective Cognitive Domain Attention: WNL Memory: Mild Problem Solving: Mild Composite Severity Rating: WNL Clock Drawing Severity Rating: WNL Objective Formal/Standardized Tests [facility] Mental Status Exam (UMS) Results The patient demonstrated a result of +25/30 on the SLUMS correlating to intact neurocognitive skills. Oral Motor/Speech Production Dysarthria or apraxia of speech were not present at this time. The patient remained 100% intelligible in known and unknown contexts. Impression The patient demonstrated a result of normal neurocognitive skills per SLUMS. The patient does demonstrate mild difficulty with word-finding, memory and problem solving, as he displayed errors with subtraction, recalling single items following a five minute delay, and naming animals. The difficulties were discussed with the patient and speech services were offered. At this time, the patient politely declined speech pathology services. The patient was encouraged to consider speech pathology skilled treatment is deficits become more profound. Speech Patient Assess Expression of Ideas/Wants: Expression (4) Understanding Verbal Content: Understands (4) Brief Interview-Mental Status: Yes Repetition of Three Words: Three (3) Temporal Orientation: Year: Correct (3) Temporal Orientation: Month: Accurate within 5 days(2) Temporal Orientation: Day: Correct (1) Recall : Wear to say "Sock": Yes, no cue required (2) Recall : Color: Yes, no cue required (2) Recall : Bed: Yes,after cueing (1) Memory/Recall Ability: Current season, That he or she is in a hsp/hsp unit Speech-Plan Treatment Plan Speech Therapy Treatment Plan: Discontinue ST Frequency: 1 time per week Estimated Hrs Per Day: .5 hour per day Rehab Potential: Fair Pt/Family Agrees to Plan: Yes Safety Risks/Education Teaching Recipient: Patient Teaching Methods: Discussion Response to Teaching: Verbalize Understanding Education Topics Provided: Results of MAHIN, Plan of Care Time Speech Therapy Time In: 13:00 Speech Therapy Time Out: 13:30 Total Billed Time: 30 Billed Treatment Time 1, RUMA AARON ELIZABETH ST August 15, 2021 12:17
--- NOTE | 2021-08-15 12:59 | Consultation-Cardiology ---
HPI-Cardiology Cardiology Consultation Date of Consultation 08/15/21 Date of Admission Time Seen by Provider: 08:15 Indication: CAD, labile HTN HPI Patient is a 80 y/o male with history of extensive CAD, PAF, COPD, HTN. Underwent lumbar spine surgery with Dr. Hernández at [place] on 07/24/21, had another procedure done on 08/03/21 d/t CSF leak postoperatively. Per record patient developed chest pain and elevated troponin while at [place] [facility] and was treated conservatively. Currently denies any chest pain. C/o nausea. Home Medications & Allergies Allergies: Coded Allergies: No Known Drug Allergies (Verified , 02/23/08) Home Medication List Reviewed: Yes [id number] Hx Patient Social History Marital Status: Employed/Student: retired Smoking Status: Current Everyday Smoker Type Used: Cigarettes 2nd Hand Smoke Exposure: Yes Recent Hopitalizations: No Have you traveled recently?: No Immunizations Up To Date Tetanus Booster (TDap): More than 5yrs Date of Pneumonia Vaccine: Nov 12, 2016 Date of Influenza Vaccine: Feb 13, 2021 Past Medical History CAD, PAF, COPD, CHF Family Medical History Significant Family History: Heart Disease, CAD Over 55 Years Old, Hypertension Family History: Cardiovascular disease 19 MOTHER Myocardial infarction 19 FATHER Review of Systems-General Review of Systems Constitutional: see HPI, malaise, weakness EENTM: no symptoms reported Respiratory: no symptoms reported Cardiovascular: no symptoms reported Gastrointestinal: abdominal pain, constipation, loss of appetite Genitourinary: no symptoms reported Musculoskeletal: back pain Skin: no symptoms reported Psychiatric/Neurological: Anxiety All Other Systems Reviewed Negative Unless Noted: Yes Reviewed Test Results Reviewed Test Results Lab Laboratory Tests 08/15/21 05:38: White Blood Count 11.8H, Red Blood Count 2.84L, Hemoglobin 9.8L, Hematocrit 29L, Mean Corpuscular Volume 100H, Mean Corpuscular Hemoglobin 35H, Mean Corpuscular Hemoglobin Concent 34, Red Cell Distribution Width 13.5, Platelet Count 241, Mean Platelet Volume 9.6, Immature Granulocyte % (Auto) 1, Neutrophils (%) (Auto) 73, Lymphocytes (%) (Auto) 13, Monocytes (%) (Auto) 11, Eosinophils (%) (Auto) 2, Basophils (%) (Auto) 0, Neutrophils # (Auto) 8.6H, Lymphocytes # (Auto) 1.6, Monocytes # (Auto) 1.3H, Eosinophils # (Auto) 0.2, Basophils # (Auto) 0.0, Immature Granulocyte # (Auto) 0.1, Sodium Level 134L, Potassium Level 3.8, Chloride Level 105, Carbon Dioxide Level 19L, Anion Gap 10, Blood Urea Nitrogen 19H, Creatinine 1.17, Estimat Glomerular Filtration Rate 63, BUN/Creatinine Ratio 16, Glucose Level 104, Calcium Level 8.8, Corrected Calcium 9.6, Total Bilirubin 0.7, Aspartate Amino Transf (AST/SGOT) 24, Alanine Aminotransferase (ALT/SGPT) 19, Alkaline Phosphatase 74, Total Protein 5.6L, Albumin 3.0L Physical Exam Physical Exam Vital Signs Vital Signs - First Documented 08/14/21 14:10 Temp 37.3 Pulse 95 Resp 20 B/P (MAP) 180/95 (123) Pulse Ox 99 O2 Delivery Room Air Capillary Refill : Height, Weight, BMI Height: 6'0.00" Weight: 213lbs. 0.0oz. 96.948523ly; 26.99 BMI Method:Stated General Appearance: No Apparent Distress, WD/WN, Chronically ill Eyes: Bilateral Eye Normal Inspection, Bilateral Eye PERRL HEENT: PERRL/EOMI, Normal ENT Inspection, Pharynx Normal Neck: Full Range of Motion, Normal Inspection, Non Tender, Supple, Carotid Bruit Respiratory: Chest Non Tender, Lungs Clear, Normal Breath Sounds, No Accessory Muscle Use, No Respiratory Distress Cardiovascular: Regular Rate, Rhythm, No Edema, No Gallop, No JVD, No Murmur, Normal Peripheral Pulses Gastrointestinal: Normal Bowel Sounds, No Organomegaly, No Pulsatile Mass, Non Tender, Soft Back: Decreased Range of Motion, Muscle Spasm, Vertebral Tenderness Extremity: Normal Capillary Refill, Normal Inspection, Normal Range of Motion, Non Tender, No Calf Tenderness, No Pedal Edema Neurologic/Psychiatric: Alert, Oriented x3, No Motor/Sensory Deficits, Normal Mood/Affect, Abnormal Gait, Motor Weakness Skin: Normal Color, Warm/Dry Lymphatic: No Adenopathy A/P-Cardiology Admission Diagnosis CAD PAF CHF HTN Assessment/Plan s/p Lumbar spine surgery with Dr. Hernández at [place] on 07/24/21. Had another procedure done 08/03/21 d/t post operative CSF leak. Having generalized debility/weakness, continue with PT Supraventricular tachycardia, paroxysmal atrial flutter with rapid ventricular response, first documented on February 13, 2018 underwent JIMY with cardioversion. S/p ablation with Dr. Martines on 03/16/18. Asymptomatic. Started on Multaq, will continue to monitor History of loop monitor implant, interrogation showed occasional episodes of atrial fibrillation, showed episodes. Continue to monitor Chest pain, history of chronic stable angina, intolerant to NTG with severe hea dache, tolerating Ranexa, still having occasional recurrent chest pain. Will continue to monitor. Coronary artery disease, status post CABG x3 in 2001. Cardiac catheterization done April 2016 revealing a difficult anatomy was unable to evaluate left coronary system done within the show left heart catheterization. Patent vein graft to the diagonal artery and obtuse marginal branch artery. Occluded small RCA with collateral filling the distal right from the left system. Another angiogram done on April 18, 2016 revealing patent RODRIGUEZ to LAD. Patient did have severe stenosis of the ostium of the left subclavian artery. Underwent stenting to the left subclavian artery. Cardiac catheterization was carried out on February 21, 2021 after having an abnormal stress test which showed severe [place] coronary artery disease involving all his [place] arteries. The vein graft to the circumflex artery is occluded, the right coronary artery is a small artery that is not bypassed and not amendable to intervention, the vein graft to the diagonal artery is patent with good flow distally, the RODRIGUEZ to the LAD was not visualized due to the fact that the left subclavian stent was protruding in the aortic arch. Normal left ventricular function. CHF, chronic left ventricular systolic dysfunction, 2D echocardiogram was done on February 20, 2021 showing normal LV size, mild LVH, EF 50 to 55%, left atrium 4.1 cm, mild MR, mild AR, PA 30 to 35 mmHg. Continue to monitor Left subclavian artery stenosis-patient underwent left subclavian angiography with left subclavian balloon angioplasty and left subclavian stenting on 04/18/16 using Omnilink 08 stent 9 x 29 x 80 mm with lesion well covered in significant reduction in stenosis severity noted. There was 5-10 percent residue stenosis, however, there were a few stent struts protruding into the aortic arch. Maintained on Plavix and ASA. Continue to monitor Hypertension, labile hypertension, was hypotensive this morning, blood pressure medications held and given IVF bolus. Hyperlipidemia, lipid profile done on February 21, 2021 showing total cholesterol 147, triglyceride 137, HDL 46, LDL 77. Continue to monitor Tobaccoism-educated on the importance of smoking cessation. Carotid artery stenosis-mild nonobstructive disease per carotid duplex done in April 2020, continue to monitor History of malignant melanoma, followed and managed by Dr. Nelson History of prostate cancer, followed and managed by Dr. Nelson. 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 Thank you for allowing us to participate in the management of Mr. Vargas. This is Yandy Mayer PA-C, as a scribe for Dr. Subramanian. Patient was seen and evaluated with Yandy, has been doing well, recovering from surgery, neck pain is better, still having numbness in his upper extremities No further chest pain was reported Events at hospitalization at [facility] [place] was reviewed Coronary artery disease, history of extensive disease, at this time conservative management is recommended He has underlying congestive heart failure. Last echo was done February 2021. Left subclavian artery stenosis Hypertension and hyperlipidemia. Currently hypotensive. I would continue monitoring blood pressure closely and hold antihypertensive medication. YANDY HALE August 15, 2021 12:59 KAYLEY SUBRAMANIAN MD August 15, 2021 13:29
[2021-08-15] MEDS: CALCIUM CARB + VIT D 600 MG (CALCARB + D) TAB PO SCH (18:21)
[2021-08-15 19:36] VITALS: BP 112/57
[2021-08-15] MEDS: doxAzosin 4 MG (CARDURA) TAB PO SCH (20:57)
[2021-08-15] MEDS: ASPIRIN E.C. 81 MG (ECOTRIN) TAB PO SCH (20:57)
[2021-08-15] MEDS: MAGNESIUM OXIDE (MAG-OX)400 MG TAB PO SCH (20:58)
[2021-08-15] MEDS: MICONAZOLE 2% POWDER (DESENEX AF) 90 GM TOP SCH (21:07)
--- NOTE | 2021-08-16 06:06 | Individualized Plan of Care ---
Individualized Plan of Care Rehab Nursing IPOC Order Admission Date August 14, 2021 at 14:00 Current Orders Orders Admission Order(Inpt,Obs,Sdc) (08/14/21 13:02) Vital Signs: Per Unit Policy ( ,16,00 (08/14/21 13:02) Ortiz Almonte (08/14/21 13:02) Sequential Compression Device (08/14/21 13:02) Java Programmer-Inpt Rehab Con (08/14/21 13:02) Rehab Nursing Orders-Ipoc (08/14/21 13:02) Physical Therapy Rehab Orders (08/14/21 13:02) Occupational Therapy Rehab Ord (08/14/21 13:02) Speech Therapy Rehab Orders (08/14/21 13:02) Cbc With Automated Diff (08/15/21 06:00) Comprehensive Metabolic Panel (08/15/21 06:00) Precautions (Aru) (08/14/21 13:02) Weekly Weight WEEK (08/14/21 13:02) Rehab-Intensity Of Therapy (08/14/21 13:02) Initiate Admission Nursing Pro .admission (08/14/21 13:02) Alprazolam Tablet (Xanax Tablet) (08/14/21 13:15) Calcium Carbonate Chew Tablet (Antacid C (08/14/21 13:15) Diphenhydramine Tablet (Benadryl Tablet) (08/14/21 13:15) Docusate Sodium Capsule (Colace Capsule) (08/14/21 21:00) Docusate Sodium Capsule (Colace Capsule) (08/14/21 13:15) Bisacodyl Suppository (Dulcolax Supposit (08/14/21 13:15) Lactulose Oral Solution (Enulose Oral So (08/14/21 13:15) Na Phos/Na Biphos Enema (Fleet Enema Stefan (08/14/21 13:15) Guaifenesin/Codeine Syrup (Robitussin Ac (08/14/21 13:15) Loperamide Tablet (Imodium Tablet) (08/14/21 13:15) Melatonin Tablet (Melatonin Tablet) (08/14/21 13:15) Polyethylene Glycol Powder Pkt (Miralax (5/3/22 21:00) Ondansetron Oral Dissolve Tab (Zofran (08/14/21 13:15) Senna S Tablet (Senokot S Tablet) (08/14/21 21:00) Acetaminophen Tablet/Caplet (Tylenol T (08/14/21 13:15) Code/Resuscitation (08/14/21 13:02) Admission Arrival Bed Request (08/14/21 13:59) Allopurinol Tablet (Zyloprim Tablet) (08/14/21 21:00) Allopurinol Tablet (Zyloprim Tablet) (08/15/21 09:00) Apixaban Tablet (Eliquis Tablet) (08/14/21 21:00) Aspirin Enteric Coated Tablet (Ecotrin T (08/14/21 21:00) Atorvastatin Tablet (Lipitor Tablet) (08/14/21 21:00) Cholecalciferol Capsule/Tablet (Vitamin (08/15/21 09:00) Doxazosin Tablet (Cardura Tablet) (08/14/21 21:00) Dronedarone Tablet (Multaq Tablet) (08/14/21 21:00) Furosemide Tablet (Lasix Tablet) (08/14/21 15:15) Hydrocodone/Apap 10/325 Tablet (Lortab 1 (08/14/21 15:15) Levothyroxine Tablet (Synthroid Tablet) (08/15/21 06:30) Metoprolol Succinate (Xl) Tab (Toprol Xl (08/14/21 21:00) Pantoprazole Tablet (Protonix Tablet) (08/15/21 09:00) (Nf) B-Complex With Vitamin C (Vitamin B (08/15/21 09:00) (Nf) Calcium Carbonate/Vitamin D3 (Calci (08/14/21 21:00) (Nf) Lisinopril (08/14/21 21:00) (Nf) Magnesium Oxide (Magnesium) (08/14/21 21:00) (Nf) Multivit-Min/Fa/Lycopene/Lut (Centr (08/15/21 09:00) (Nf) Potassium Gluconate (08/15/21 09:00) (Nf) Ranolazine (Ranolazine Er) (08/14/21 21:00) (Nf) Zinc (08/15/21 09:00) Amlodipine Tablet (Norvasc Tablet) (08/14/21 15:15) Amlodipine Tablet (Norvasc Tablet) (08/15/21 09:00) Clonidine Tablet (Catapres Tablet) (08/14/21 15:15) Consult Cardiology (08/14/21 15:13) Lisinopril Tablet (Zestril Tablet) (08/14/21 21:00) Magnesium Oxide Tablet (Mag Ox Tablet) (08/14/21 21:00) Therapeutic Multivitamin Tab (Vitamins, (08/15/21 07:00) Ranolazine Er Tablet (Ranexa Er Tablet) (08/14/21 21:00) Zinc Sulfate Capsule (Zinc 50 Mg Capsule (08/15/21 08:00) Calcium Carbonate W/Vitamin D3 (Calcarb (08/14/21 17:00) Patient Visit (08/14/21 ) Pt Eval Moderate Complexity (08/14/21 ) Exercise Therap, Ea 15 Min (08/14/21 ) Functional Activities, Ea 15 (08/14/21 ) Oxygen-Administer 07,19 (08/14/21 18:47) Oxygen Delivery Set Up (08/14/21 18:47) Incentive Spirometry (Nursing) Q2H (08/14/21 20:04) Incentive Spirometry Initial (08/14/21 20:04) Incentive Spirometry (Nursing) Q2H (08/14/21 20:04) Ns Iv 1000 Ml (Sodium Chloride 0.9%) (08/15/21 10:00) Ns Iv 1000 Ml (Sodium Chloride 0.9%) (08/15/21 10:04) Nursing Communication (Order) (08/15/21 10:13) Ns Iv 1000 Ml (Sodium Chloride 0.9%) (08/15/21 10:23) Patient Visit (08/15/21 ) Exercise Therap, Ea 15 Min (08/15/21 ) Functional Activities, Ea 15 (08/15/21 ) Patient Visit (08/15/21 ) Speech Sound Lang Comp (08/15/21 ) Treat. Speech/Lang/Voice (08/15/21 ) General/Regular (08/15/21 Lunch) Miconazole 2% Powder (Phytoplex Af 2% Po (08/15/21 21:00) Cbc With Automated Diff (08/16/21 11:50) Comprehensive Metabolic Panel (08/16/21 11:50) Lactic Acid Analyzer (08/16/21 11:50) Procalcitonin (Pct) (08/16/21 11:50) Urinalysis (08/16/21 13:25) Chest 1 View, Ap/Pa Only (08/16/21 11:50) Lumbar Spine - 2-3 Views (08/16/21 13:07) Consult Wound Care Physician (08/16/21 13:31) Covid 19 Inhouse Test (08/16/21 13:39) Influenza A And B By Pcr (08/16/21 14:40) Mupirocin Ointment (Bactroban Ointment (08/16/21 21:00) Rehab Nursing Orders: Ongoing Assess. of Cognitive Status, Ongoing Assess. of Function Status, Bladder Management, Bladder Scan, Bladder Training, Bowel Management, Bowel Training, Disease Management & Educaiton, DVT Prophylaxis, Fall Prevention, Fluid/Electrolyte/Nutrition Mgmt, Infection Prevention, Medication Management & Education, Management of Risks & Complications, Management of Skin Intergrity, Nutrition Management, Pain Management, Patient/Family Support, Safety Management Intensity of Therapy to be met Patient to be seen: Min.3h per day/5 of 7d PT IPOC Problem List: Activity Tolerance, Functional Strength Treatment Plan: Continue Plan of Care Bed Mobility, Education, Functional Activity Rachelle, Functional Strength, Group Therapy, Gait, Safety, Therapeutic Exercise, Transfers Treatment Duration: September 04, 2021 Frequency: At least 5 of 7 days/Wk (IRF) Estimated Hrs Per Day: 1.5 hours per day OT IPOC Problems: Decreased Activ Tolerance, Decreased UE Strength, Impaired Funct Balance, Impaired I ADL's, Impaired Self-Care Skills OT Treatment, Training and Edu: Yes Plan of Care: ADL Retraining, Functional Mobility, Group Exercise/Act as Ind, UE Funct Exercise/Act Treatment Duration: September 04, 2021 Frequency: At least 5 of 7 days/Wk (IRF) Estimated Hrs Per Day: 1.5 hours per day (60-90 min/day) ST IPOC Speech Therapy Treatment Plan: Discontinue ST Treatment Duration: August 16, 2021 Frequency: 1 time per week Estimated Hrs Per Day: .5 hour per day Java Programmer/Case Mgmt Java Programmer/Case Managemen: Discharge Planning Dietitian/Molding Technician Dietitian/Molding Technician to monitor nutritional status and make changes and/or recommendations as needed and work with speech pathology on dietary upgrades as the occur. Physician IPOC Medical Issues being managed closely and that require the 24 hour availability of a physician: Complicated lumbar spine surgery with inoperable CAD and now having evidence of fever and ruling out sepsis and conversations with Dr. Hernández his neurosurgeon will require close monitoring for any decompensation Medical Issues: Bowel/Bladder Function, DVT Prophylaxis, Falls Precautions, Fluid/Electrolyte/Nutrition Balance, Infection Protection, Pain Management Brief Synthesis of Preadmission Screen, Post-Admission Evaluation, and Therapy Evaluations: PT and OT will focus on regaining function with use of assistive devices we will continue supportive care to increase stamina to increase independence in ADLs to return home Medical Prognosis: Fair Anticipated Length of Stay: 10 days ABIEL SAUNDERS DO August 16, 2021 06:06
--- NOTE | 2021-08-16 06:06 | PM&R Progress Note ---
Subjective HPI/CC On Admission Date Seen by Provider: August 16, 2021 Time Seen by Provider: 11:15 Subjective/Events-last exam 08/16/2021: Pt had another fall this morning Septic work up initiated Chest x-ray and UA will be ordered On an alarm now to prevent impulsive behavior Had diarrhea yesterday but none today Had a lot of vertigo Fever is 101 Very complicated individual, will be on standby for any clinical status decline High risk for decompensation Review of Systems Musculoskeletal: neck pain, back pain Focused Exam Lactate Level 08/16/21 12:15: Lactic Acid Level 1.04 Objective Exam Vital Signs Vital Signs Date Time Temp Pulse Resp B/P (MAP) Pulse Ox O2 Delivery O2 Flow Rate FiO2 08/17/21 05:30 37.4 08/16/21 20:00 97 Room Air 08/16/21 19:58 98 18 107/55 (72) Capillary Refill : General Appearance: No Apparent Distress, WD/WN, Chronically ill HEENT: PERRL/EOMI, Normal ENT Inspection, Pharynx Normal Neck: Full Range of Motion, Normal Inspection, Non Tender, Supple, Carotid Bruit Respiratory: Chest Non Tender, Lungs Clear, Normal Breath Sounds, No Accessory Muscle Use, No Respiratory Distress Cardiovascular: Regular Rate, Rhythm, No Edema, No Gallop, No JVD, No Murmur, Normal Peripheral Pulses Gastrointestinal: Normal Bowel Sounds, No Organomegaly, No Pulsatile Mass, Non Tender, Soft Back: Decreased Range of Motion, Muscle Spasm, Vertebral Tenderness Extremity: Normal Capillary Refill, Normal Inspection, Normal Range of Motion, Non Tender, No Calf Tenderness, No Pedal Edema Neurologic/Psychiatric: Alert, Oriented x3, No Motor/Sensory Deficits, Normal Mood/Affect, Abnormal Gait, Motor Weakness Skin: Normal Color, Warm/Dry Lymphatic: No Adenopathy Results/Procedures Lab Laboratory Tests 08/16/21 12:15 Patient resulted labs reviewed. FIM Transfers Therapy Code Descriptions/Definitions Functional [place] Measure: 0=Not Assessed/NA 4=Minimal Assistance 1=Total Assistance 5=Supervision or Setup 2=Maximal Assistance 6=Modified [place] 3=Moderate Assistance 7=Complete IndependenceSCALE: Activities may be completed with or without assistive devices. 8-Wxezeplwma-iybslog completes the activity by him/herself with no assistance f rom a helper. 5-Set-up or Clean-up Assistance-helper sets up or cleans up; patient completes activity. [place] assists only prior to or following the activity. 4-Supervision or Touching Assistance-helper provides verbal cues and/or touching/steadying and/or contact guard assistance as patient completes activity. Assistance may be provided throughout the activity or intermittently. 3-Partial/Moderate Assistance-helper does LESS THAN HALF the effort. [place] lifts, holds or supports trunk or limbs, but provides less than half the effort. 2-Substantial/Maximal Assistance-helper does MORE THAN HALF the effort. [place] lifts or holds trunk or limbs and provides more than half the effort. 7-Kotasibll-jpbrin does ALL the effort. Patient does none of the effort to complete the activity. Or, the assistance of 2 or more helpers is required for the patient to complete the activity. If activity was not attempted, code reason: 7-Patient Refused. 9-Not Applicable-not attempted and the patient did not perform the activity before the current illness, exacerbation or injury. 10-Not Attempted due to Environmental Limitations-(lack of equipment, weather restraints, etc.). 88-Not Attempted due to Medical Conditions or Safety Concerns. Roll Left to Right (QC): 4 Sit to Lying (QC): 4 Sit to Stand (QC): 3 Chair/Azv-gx-Karzc Xfer(QC): 4 (SBA) Car Transfer (QC): 4 (SBA) Gait Training Does the Patient Walk?: Yes Walk 10 feet (QC): 4 (CGA) Walk 50 ft with 2 Turns(QC): 4 (CGA) Walk 150 ft (QC): 88 Walking 10ft/uneven surface-QC: 4 (CGA) Gait Assistive Device: FWW Wheelchair Training Does the Pt Use a Wheelchair?: No Wheel 50 ft with 2 turns (QC): 9 Wheel 150 ft (QC): 9 Type of Wheelchair: N/A Stair Training #of Steps: 1 1 Step (curb) (QC): 4 (CGA) 4 Steps (QC): 88 12 Steps (QC): 88 Balance Picking up an Object (QC): 4 (CGA using printed circuit board panels developer) ADL-Treatment Eating (QC): 4 Oral Hygiene (QC): 88 Shower/Bathe Self (QC): 2 (Max A sponge bath at bed level.) Upper Body Dressing (QC): 3 (Min A doffing robe) Lower Body Dressing (QC): 2 On/Off Footwear (QC): 2 Toileting Hygiene (QC): 2 Assessment/Plan Assessment and Plan Assess & Plan/Chief Complaint Assessment: 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 Hernández in depth (1) Myopathy (2) CAD (coronary artery disease) ABIEL SAUNDERS DO August 16, 2021 06:06
[2021-08-16] MEDS: MULTIVIT W/MINERALS TAB (THERAGRAN M) PO SCH (06:49)
[2021-08-16] MEDS: LEVOTHYROXINE 50 MCG (LEVOTHROID) TAB PO SCH (06:49)
[2021-08-16 07:13] VITALS: BP 117/92
[2021-08-16] MEDS: DOCUSATE SODIUM 100 MG (COLACE) CAP PO SCH ×2 (07:30→21:20)
[2021-08-16] MEDS: polyethylene glycoL POWDER 17 GM (MIRALAX) PACK PO SCH ×2 (07:31→21:20)
[2021-08-16] MEDS: SENNA W/DOCUSATE (SENOKOT S) TABLET PO SCH ×2 (07:31→21:20)
[2021-08-16] MEDS: APIXABAN 5 MG (ELIQUIS) TABLET PO SCH ×2 (07:32→21:23)
[2021-08-16] MEDS: ZINC SULFATE 220 MG CAPSULE PO SCH (07:32)
[2021-08-16] MEDS: PANTOPRAZOLE 40 MG (PROTONIX) TAB PO SCH (07:32)
[2021-08-16] MEDS: RANOLAZINE ER 500 MG TAB (RANEXA) PO SCH ×2 (07:32→21:23)
[2021-08-16] MEDS: ALLOPURINOL 100 MG (ZYLOPRIM) TAB PO SCH ×2 (07:32→21:23)
[2021-08-16] MEDS: DRONEDARONE 400 MG TABLET PO SCH ×2 (07:32→21:23)
[2021-08-16] MEDS: VITAMIN D3 25 MCG (1,000 UNITS) TABLET PO SCH (07:32)
[2021-08-16] MEDS: MICONAZOLE 2% POWDER (DESENEX AF) 90 GM TOP SCH ×2 (07:33→21:22)
--- NOTE | 2021-08-16 07:33 | Cardiology Progress Note ---
Subjective Date Seen by Provider: August 16, 2021 Time Seen by Provider: 07:30 Subjective/Events-last exam Patient was seen at bedside, sitting and eating breakfast. Complaining of neck pain and numbness and weakness in his upper extremities Review of Systems General: No Chills, No Night Sweats, No Fatigue, No Malaise, No Appetite, No Other HEENT: No Head Aches, No Visual Changes, No Eye Pain, No Ear Pain, No Dysphasia, No Sinus Congestion, No Post Nasal Drip, No Sore Throat, No Other Pulmonary: No Dyspnea, No Cough, No Pleuritic Chest Pain, No Other Cardiovascular: No: Chest Pain, Palpitations, Orthopnea, Paroxysmal Noc. Dyspnea, Edema, Lt Headedness, Other Objective-Cardiology Exam Last Set of Vital Signs Vital Signs 08/16/21 07:13 Temp 37.0 Pulse 90 Resp 20 B/P (MAP) 117/92 (100) Pulse Ox 90 O2 Delivery Room Air I&O Intake and Output 08/16/21 00:00 Intake Total 1000 ml Balance 1000 ml Intake IV Total 1000 ml General: Alert, Oriented X3, Cooperative HEENT: Atraumatic, PERRLA, Other (Complaint of neck pain) Neck: Supple, No JVD, No Thyromegaly Lungs: Clear to Auscultation, Normal Air Movement Heart: Regular Rate, Normal S1, Normal S2, No Murmurs Abdomen: Normal Bowel Sounds, Soft, No Tenderness, No Hepatosplenomegaly, No Masses Extremities: No Clubbing, No Cyanosis, No Edema, Normal Pulses, No T enderness/Swelling Skin: No Rashes, No Breakdown, No Significant Lesion Neuro: Normal Gait, Normal Speech, Normal Tone, Sensation Intact, Other (Weakness and numbness in the upper extremities) Psych/Mental Status: Mental Status NL, Mood NL A/P-Cardiology Admission Diagnosis CAD PAF CHF HTN Assessment/Plan s/p Lumbar spine surgery with Dr. Hernández at [facility] on 07/24/21. Had another procedure done 08/03/21 d/t post operative CSF leak. Having generalized debility/weakness, continue with PT Supraventricular tachycardia, paroxysmal atrial flutter with rapid ventricular response, first documented on February 13, 2018 underwent JIMY with cardioversion. S/p ablation with Dr. Martines on 03/16/18. Asymptomatic. Started on Multaq, will continue to monitor History of loop monitor implant, interrogation showed occasional episodes of atrial fibrillation, showed episodes. Continue to monitor Chest pain, history of chronic stable angina, intolerant to NTG with severe headache, tolerating Ranexa, still having occasional recurrent chest pain. Will continue to monitor. Coronary artery disease, status post CABG x3 in 2001. Cardiac catheterization done April 2016 revealing a difficult anatomy was unable to evaluate left coronary system done within the show left heart catheterization. Patent vein graft to the diagonal artery and obtuse marginal branch artery. Occluded small RCA with collateral filling the distal right from the left system. Another angiogram done on April 18, 2016 revealing patent RODRIGUEZ to LAD. Patient did have severe stenosis of the ostium of the left subclavian artery. Underwent stenting to the left subclavian artery. Cardiac catheterization was carried out on February 21, 2021 after having an abnormal stress test which showed severe [place] coronary artery disease involv ing all his [place] arteries. The vein graft to the circumflex artery is occluded, the right coronary artery is a small artery that is not bypassed and not amendable to intervention, the vein graft to the diagonal artery is patent with good flow distally, the RODRIGUEZ to the LAD was not visualized due to the fact that the left subclavian stent was protruding in the aortic arch. Normal left ventricular function. CHF, chronic left ventricular systolic dysfunction, 2D echocardiogram was done on February 20, 2021 showing normal LV size, mild LVH, EF 50 to 55%, left atrium 4.1 cm, mild MR, mild AR, PA 30 to 35 mmHg. Continue to monitor Left subclavian artery stenosis-patient underwent left subclavian angiography with left subclavian balloon angioplasty and left subclavian stenting on 04/18/16 using Omnilink 08 stent 9 x 29 x 80 mm with lesion well covered in significant reduction in stenosis severity noted. There was 5-10 percent residue stenosis, however, there were a few stent struts protruding into the aortic arch. M aintained on Plavix and ASA. Continue to monitor Hypertension, labile hypertension, was hypotensive this morning, blood pressure medications held and given IVF bolus. Hyperlipidemia, lipid profile done on February 21, 2021 showing total cholesterol 147, triglyceride 137, HDL 46, LDL 77. Continue to monitor Tobaccoism-educated on the importance of smoking cessation. Carotid artery stenosis-mild nonobstructive disease per carotid duplex done in April 2020, continue to monitor History of malignant melanoma, followed and managed by Dr. Nelson History of prostate cancer, followed and managed by Dr. Nelson. 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 Thank you for allowing us to participate in the management of Mr. Vargas. This is Yandy Mayer PA-C, as a scribe for Dr. Subramanian. Patient was seen and evaluated with Yandy, has been doing well, recovering from surgery, neck pain is better, still having numbness in his upper ext remities No further chest pain was reported Events at hospitalization at [facility] was reviewed Coronary artery disease, history of extensive disease, at this time conservative management is recommended He has underlying congestive heart failure. Last echo was done February 2021. Left subclavian artery stenosis Hypertension and hyperlipidemia. Currently hypotensive. I would continue monitoring blood pressure closely and hold antihypertensive medication. KAYLEY SUBRAMANIAN MD August 16, 2021 07:33
--- NOTE | 2021-08-16 09:02 | Physical Therapy Daily Note ---
PT Daily Note-Current Subjective Pt sitting in recliner upon arrival. Pt agrees to PT/OT co-treat as pt reports some nausea and fatigue this morning. Nursing is aware. BP, O2 and Temp. are taken during tx. Pain Location Body Site: Neck Pain Description: Ache Comment: Reported when walking but not rated Mental Status Patient Orientation: Person, Place, Situation Transfers SCALE: Activities may be completed with or without assistive devices. 0-Gedlqxzqjx-fwbkvqq completes the activity by him/herself with no assistance from a helper. 5-Set-up or Clean-up Assistance-helper sets up or cleans up; patient completes activity. [place] assists only prior to or following the activity. 4-Supervision or Touching Assistance-helper provides verbal cues and/or touching/steadying and/or contact guard assistance as patient completes activity. Assistance may be provided throughout the activity or intermittently. 3-Partial/Moderate Assistance-helper does LESS THAN HALF the effort. [place] lifts, holds or supports trunk or limbs, but provides less than half the effort. 2-Substantial/Maximal Assistance-helper does MORE THAN HALF the effort. [place] lifts or holds trunk or limbs and provides more than half the effort. 7-Jbzztbhbw-mjtpfc does ALL the effort. Patient does none of the effort to complete the activity. Or, the assistance of 2 or more helpers is required for the patient to complete the activity. If activity was not attempted, code reason: 7-Patient Refused. 9-Not Applicable-not attempted and the patient did not perform the activity before the current illness, exacerbation or injury. 10-Not Attempted due to Environmental Limitations-(lack of equipment, weather restraints, etc.). 88-Not Attempted due to Medical Conditions or Safety Concerns. Sit to Stand (QC): 4 Weight Bearing Right Lower Extremity: Right Full Weight Bearing Left Lower Extremity: Left Full Weight Bearing Gait Training Does the Patient Walk?: Yes Distance: 50' x2, 25' Walk 10 feet (QC): 4 Walk 50 ft with 2 Turns(QC): 4 Gait Persons Needed: 1 Gait Assistive Device: FWW Treatments OT/PT cotreat due to skill of 2 clinicians required which a rehabilitation construction specialist could not perform in order to coordinate UE/LEs, decrease fall risk, and due to pt's ervin itations in strength and activity tolerance. OT focused on UE placement, cues for sequencing and safety, and ADLs, PT focused on LE placement, gross overall movement, transfers/mobility. Underwear donned at recliner, assist to raise RLE in figure 4 position in order to thread pants. Pt able to thread LLE via figure 4 method. Pt used FWW to perform functional mobility, cues required for UE placement with transfers. Pt performed functional mobility in [facility]U common area, w/c follow, sitting rest breaks as needed. At first rest break, pt c/o dizziness and SOB, BP 130/76, O2 saturation 98-99%, also c/o chills all over. Temp 38.1 C, house coat donned. Pt completed another walking trial, c/o dizziness with walking, especially when he raises his head upright in order to look straight ahead. Pt educated on keeping walker close by in order to improve posture with mobility, and not to raise his head up too high with mobility, he verbalized understanding. Pt ambulated x3 with FWW. Pt again c/o chills, requests to don long pants. Pt propelled w/c back to his room, primarily using LEs, assistance provided through doorway. Pt donned pants, education on donning weaker leg first. Pt encouraged to scoot forward in the chair to stand up, instead pt rested his head on his arms on the walker. After several minutes, pt again encouraged to complete task, but pt unable to recall what he was in the process of doing. Pt cued to stand up in order to perform pant hike and transfer to recliner. Pt had difficulty with pant hike due to decreased sensation in fingertips, then transferred to recliner. Chair alarm on. Assessment Current Status: Fair Progress BP monitored during tx (see tx section). Pt reported dizziness, nausea and pain in neck with ambulation. PT Short Term Goals Short Term Goals Time Frame: August 21, 2021 Roll Left & Right: 6 Sit to lyin Lying to sitting on side of be: 6 Sit to stand: 4 (SBA) Chair/kzk-hn-dmxkt transfer: 6 Walk 10 feet: 4 (SBA) Walk 50 feet with two turns: 4 (SBA) Walk 150 feet: 4 (SBA) 4 steps: 4 (CGA) PT Half-Way Goals Broach Grinder Goals PT Half-Way Goals Time Frame: September 04, 2021 Roll Left & Right (QC): 6 Sit to Lying (QC): 6 Lying-Sitting on Side/Bed(QC): 6 Sit to Stand (QC): 6 Chair/Bdw-ma-Tdahx Xfer(QC): 6 Toilet Transfer (QC): 6 Car Transfer (QC): 6 Does the Patient Walk: Yes Walk 10 feet (QC): 6 Walk 50ft with 2 Turns (QC): 6 Walk 150 ft (QC): 6 Walking 10ft on Uneven Surface: 6 1 Step (curb) (QC): 6 4 Steps (QC): 4 (SBA) 12 Steps (QC): 4 (CGA) Picking up an Object (QC): 6 Does the Pt use WC or Scooter?: No Wheel 50 feet with 2 turns (QC: 9 Type: N/A Wheel 150 feet: 9 Type: N/A PT Plan Problem List Problem List: Activity Tolerance, Functional Strength, Gait, Transfer Treatment/Plan Treatment Plan: Continue Plan of Care Treatment Plan: Bed Mobility, Education, Functional Activity Rachelle, Functional Strength, Group Therapy, Gait, Safety, Therapeutic Exercise, Transfers Treatment Duration: September 04, 2021 Frequency: At least 5 of 7 days/Wk (IRF) Estimated Hrs Per Day: 1.5 hours per day Patient and/or Family Agrees t: Yes Safety Risks/Education Patient Education: Correct Positioning, Safety Issues Teaching Recipient: Patient Teaching Methods: Discussion Response to Teaching: Verbalize Understanding Time/GCodes Time In: 800 Time Out: 900 Total Billed Treatment Time: 60 Total Billed Treatment 1, FA x2 (30m) & GT x2 (30m) Co-treat w/ OT for 60m JARED HEWITT PTA August 16, 2021 09:02
--- NOTE | 2021-08-16 09:29 | Occupational Ther Daily Note ---
OT Current Status-Daily Note Subjective Pt up in recliner at start of tx, agreeable to therapy. Pt c/o dizziness when raising his head, BP taken throughout session and temp. BP 130/76, 109/69, and temp 38.1 C. Mental Status/Objective Patient Orientation: Person, Place, Situation Attachments: Oxygen (2L NC post tx) ADL-Treatment Therapy Code Descriptions/Definitions Functional [place] Measure: 0=Not Assessed/NA 4=Minimal Assistance 1=Total Assistance 5=Supervision or Setup 2=Maximal Assistance 6=Modified [place] 3=Moderate Assistance 7=Complete IndependenceSCALE: Activities may be completed with or without assistive devices. 4-Ztfjngndma-ehayces completes the activity by him/herself with no assistance from a helper. 5-Set-up or Clean-up Assistance-helper sets up or cleans up; patient completes activity. [place] assists only prior to or following the activity. 4-Supervision or Touching Assistance-helper provides verbal cues and/or touching/steadying and/or contact guard assistance as patient completes activity. Assistance may be provided throughout the activity or intermittently. 3-Partial/Moderate Assistance-helper does LESS THAN HALF the effort. [place] lifts, holds or supports trunk or limbs, but provides less than half the effort. 2-Substantial/Maximal Assistance-helper does MORE THAN HALF the effort. [place] lifts or holds trunk or limbs and provides more than half the effort. 7-Susplmdjz-kpluih does ALL the effort. Patient does none of the effort to complete the activity. Or, the assistance of 2 or more helpers is required for the patient to complete the activity. If activity was not attempted, code reason: 7-Patient Refused. 9-Not Applicable-not attempted and the patient did not perform the activity before the current illness, exacerbation or injury. 10-Not Attempted due to Environmental Limitations-(lack of equipment, weather restraints, etc.). 88-Not Attempted due to Medical Conditions or Safety Concerns. Lower Body Dressing (QC): 3 (Mod A) On/Off Footwear: 1 (total assist gripper socks and TEDhose) Other Treatment OT/PT cotreat due to skill of 2 clinicians required which a rehabilitation director could not perform in order to coordinate UE/LEs, decrease fall risk, and due to pt's limitations in strength and activity tolerance. OT focused on UE placement, cues for sequencing and safety, and ADLs, PT focused on LE placement, gross overall movement, transfers/mobility. Underwear donned at recliner, assist to raise RLE in figure 4 position in order to thread pants. Pt able to thread LLE via figure 4 method. Pt used FWW to perform functional mobility, cues required for UE placement with transfers. Pt performed functional mobility [facility] area, w/c follow, sitting rest breaks as needed. At first rest break, pt c/o dizziness and SOB, BP 130/76, O2 saturation 98-99%, also c/o chills all over. Temp 38.1 C, house coat donned. Pt completed another walking trial, c/o dizziness with walking, especially when he raises his head upright in order to look straight ahead. Pt educated on keeping walker close by in order to improve posture with mobility, and not to raise his head up too high with mobility, he verbalized understanding. Pt ambulated x3 with FWW. Pt again c/o chills, requests to don long pants. Pt propelled w/c back to his room, primarily using LEs, assistance provided through doorway. Pt donned pants, education on donning weaker leg first. Pt encouraged to scoot forward in the chair to stand up, instead pt rested his head on his arms on the walker. After several minutes, pt again encouraged to complete task, but pt unable to recall what he was in the process of doing. Pt cued to stand up in order to perform pant hike and transfer to recliner. Pt had difficulty with pant hike due to decreased sensation in fingertips, then transferred to recliner. Chair alarm on. OT Tx: Pt seated in recliner. OT assisted pt with positioning recliner to comfort, reclining the back slightly and elevating footrest. OT donned TEDhose for pt and then gripper socks onto. Pt showed decreased sensation in LEs, req uesting therapist to pull pant legs all the way down on his leg, although his pants were already all the way down. Pt requests to lay in bed, OT provided education on benefits of sitting up in recliner, he agreed to staying up for a while. UE exercises attempted with light resistance theraband, pt reports it "pulling" in his neck so task terminated. AROM performed instead in order to increase BUE Strength and activity tolerance. Pt completed x15 reps BUE shoulder flexion, requiring hand over hand assistance for correct technique and cues to keep going, as pt stopped after 5 reps. Pt reports he was falling asleep. Pt then completed x11 reps front punch, he was instructed to complete 15 but stopped at 11, closing his eyes. OT assisted with positioning pt to comfort and providing warm blanket. Post tx, pt in recliner, call light in reach and all needs met, chair alarm activated. Education OT Patient Education: Correct positioning, Energy conservation, Exercise program, Modified ADL techniques, Progress toward Goal/Update tx plan, Purpose of tx/functional activities, Rehab process Teaching Recipient: Patient Teaching Methods: Discussion Response to Teaching: Verbalize Understanding OT Short Term Goals Short Term Goals Time Frame: August 23, 2021 Eatin Oral hygiene: 88 Toileting hygiene: 3 Shower/bathe self: 3 Upper body dressin Lower body dressin Putting on/taking off footwear: 3 OT Meal Packer Goals Meal Packer Goals Time Frame: September 04, 2021 Eating (QC): 6 Oral Hygiene (QC): 88 Toileting Hygiene (QC): 6 Shower/Bathe Self (QC): 5 Upper Body Dressing (QC): 5 Lower Body Dressing (QC): 5 On/Off Footwear (QC): 5 1=Demonstrate adherence to instructed precautions during ADL tasks. 2=Patient will verbalize/demonstrate understanding of assistive devices/modifications for ADL. 3=Patient will improve strength/tolerance for activity to enable patient to perform ADL's. OT Education/Plan Problem List/Assessment Assessment: Decreased Activ Tolerance, Decreased UE Strength, Impaired Funct Balance, Impaired I ADL's, Impaired Self-Care Skills Discharge Recommendations Plan/Recommendations: Continue POC Treatment Plan/Plan of Care Patient would benefit from OT for education, treatment and training to promote independence in ADL's, mobility, safety and/or upper extremity function for ADL's. Plan of Care: ADL Retraining, Functional Mobility, Group Exercise/Act as Ind, UE Funct Exercise/Act Treatment Duration: September 04, 2021 Frequency: At least 5 of 7 days/Wk (IRF) Estimated Hrs Per Day: 1.5 hours per day (60-90 min/day) Agreement: Yes Rehab Potential: Fair Time/GCodes Start Time: 08:00 Stop Time: 09:30 Total Time Billed (hr/min): 90 Billed Treatment Time cotreat x60, OT x30' 1, ADL 2 (30'), FA 3 (45'), EX (15') ARLENE JULIO OT August 16, 2021 09:29
--- NOTE | 2021-08-16 12:08 | Diagnostic Imaging Report ---
INDICATION: Fever. TIME OF EXAM: 11:54 AM Correlation is made with prior chest from 02/20/2021. FINDINGS: Heart size is stable. There are changes of median sternotomy. Cardiac loop recorder overlies the lower left chest. The lungs appear to be clear on today's study. No failure is seen. There is no effusion or pneumothorax. IMPRESSION: No acute cardiopulmonary process is detected. Dictated by: Dictated on workstation # [id number]
[2021-08-16 12:23] LABS: BASOPHILS % (AUTO) 0 % (0-10); EOSINOPHILS % (AUTO) 0 % (0-10); HEMATOCRIT 28 % (40-54); HEMOGLOBIN 9.7 g/dL (13.3-17.7); LYMPHOCYTES # (AUTO) 1.4 10^3/uL (1.0-4.0); LYMPHOCYTES % (AUTO) 10 % (12-44); MEAN CORPUSCULAR HEMOGLOBIN 34 pg (25-34); MEAN CORPUSCULAR HGB CONC 34 g/dL (32-36); MEAN CORPUSCULAR VOLUME 101 fL (80-99); MEAN PLATELET VOLUME 9.3 fL (9.0-12.2); MONOCYTES % (AUTO) 8 % (0-12); NEUTROPHILS # (AUTO) 10.9 10^3/uL (1.8-7.8); NEUTROPHILS % (AUTO) 81 % (42-75); PLATELET COUNT 216 10^3/uL (130-400); WHITE BLOOD COUNT 13.5 10^3/uL (4.3-11.0)
[2021-08-16 12:41] LABS: ALBUMIN 3.2 GM/DL (3.2-4.5); BILIRUBIN,TOTAL 0.6 MG/DL (0.1-1.0); CALCIUM 8.5 MG/DL (8.5-10.1); CREATININE SERUM 1.09 MG/DL (0.60-1.30); POTASSIUM 3.9 MMOL/L (3.6-5.0)
[2021-08-16 13:29] LABS: BILIRUBIN,URINE NEGATIVE (NEGATIVE); CLARITY,URINE CLEAR; COLOR,URINE ORANGE; GLUCOSE, URINE (UA) NEGATIVE (NEGATIVE); KETONES,URINE NEGATIVE (NEGATIVE); LEUKOCYTE ESTERASE ,URINE NEGATIVE (NEGATIVE); NITRITE,URINE NEGATIVE (NEGATIVE); PH,URINE 5.5 (5-9); PROTEIN,URINE NEGATIVE (NEGATIVE)
--- NOTE | 2021-08-16 13:52 | Diagnostic Imaging Report ---
INDICATION: Fall. COMPARISON: None. FINDINGS: Frontal and lateral radiographic views of the abdomen were obtained and show postsurgical changes of previous lumbar laminectomy and posterior fusion extending from L3 through S1. There is some lucency about the intrapedicular screws at the L4 level, which does raise concern for potential loosening. Hardware is otherwise intact. Intervertebral disc spacers are also noted. AP static alignment is maintained. Vertebral body heights are preserved. There is no acute fracture. Advanced degenerative changes are noted at the L2-L3. There is intervertebral disc height loss with prominent endplate osteophyte formations. Moderate calcified aortic atherosclerosis is also present. IMPRESSION: 1. Postsurgical changes of previous laminectomy and posterior fusion of the lumbosacral spine. Again, there is suggestion of loosening of the intrapedicular screws at L4. This could be further evaluated with CT. 2. Advanced degenerative changes at the L2-L3 level. 3. No acute fracture or dislocation of the lumbar spine. Dictated by: Dictated on workstation # [id number]
[2021-08-16 14:22] LABS: BACTERIA,URINE TRACE /HPF; SQUAMOUS EPITHELIAL CELL,UR RARE /HPF
[2021-08-16 14:23] LABS: CALCIUM OXALATE CRYSTALS,UR RARE /LPF; HYALINE CASTS, URINE RARE /LPF
--- NOTE | 2021-08-16 15:03 | Physical Therapy Daily Note ---
PT Daily Note-Current Subjective Pt laying Supine in bed upon arrival. Sp present. Pt agrees to Supine Ex in bed as pt reports very fatigued. Mental Status Patient Orientation: Person, Place, Situation Attachments: Oxygen (2L while laying down) Transfers SCALE: Activities may be completed with or without assistive devices. 9-Oyezjqrjfk-sipmhrv completes the activity by him/herself with no assistance from a helper. 5-Set-up or Clean-up Assistance-helper sets up or cleans up; patient completes activity. [place] assists only prior to or following the activity. 4-Supervision or Touching Assistance-helper provides verbal cues and/or to uching/steadying and/or contact guard assistance as patient completes activity. Assistance may be provided throughout the activity or intermittently. 3-Partial/Moderate Assistance-helper does LESS THAN HALF the effort. [place] lifts, holds or supports trunk or limbs, but provides less than half the effort. 2-Substantial/Maximal Assistance-helper does MORE THAN HALF the effort. [place] lifts or holds trunk or limbs and provides more than half the effort. 9-Wbnrpoohb-hbiewi does ALL the effort. Patient does none of the effort to complete the activity. Or, the assistance of 2 or more helpers is required for the patient to complete the activity. If activity was not attempted, code reason: 7-Patient Refused. 9-Not Applicable-not attempted and the patient did not perform the activity before the current illness, exacerbation or injury. 10-Not Attempted due to Environmental Limitations-(lack of equipment, weather restraints, etc.). 88-Not Attempted due to Medical Conditions or Safety Concerns. Weight Bearing Right Lower Extremity: Right Full Weight Bearing Left Lower Extremity: Left Full Weight Bearing Exercises Supine Ex: Ankle pumps, Quad Set, Glut sets, Heel Slides, Straight leg raise, Hip abd/add Supine Reps: 15 Treatments Pt completes Supine Ex in bed with RB as needed. Nurse checks on pt during tx as well. All needs met, call light in hand. Assessment Current Status: Fair Progress Pt is limited by fatigue and pain at this time. PT Short Term Goals Short Term Goals Time Frame: August 21, 2021 Roll Left & Right: 6 Sit to lyin Lying to sitting on side of be: 6 Sit to stand: 4 (SBA) Chair/evo-hw-rijzu transfer: 6 Walk 10 feet: 4 (SBA) Walk 50 feet with two turns: 4 (SBA) Walk 150 feet: 4 (SBA) 4 steps: 4 (CGA) PT Prison Goals Prison Goals PT Fiberglass Roving Winder Goals Time Frame: September 04, 2021 Roll Left & Right (QC): 6 Sit to Lying (QC): 6 Lying-Sitting on Side/Bed(QC): 6 Sit to Stand (QC): 6 Chair/Vnl-cv-Smeik Xfer(QC): 6 Toilet Transfer (QC): 6 Car Transfer (QC): 6 Does the Patient Walk: Yes Walk 10 feet (QC): 6 Walk 50ft with 2 Turns (QC): 6 Walk 150 ft (QC): 6 Walking 10ft on Uneven Surface: 6 1 Step (curb) (QC): 6 4 Steps (QC): 4 (SBA) 12 Steps (QC): 4 (CGA) Picking up an Object (QC): 6 Does the Pt use WC or Scooter?: No Wheel 50 feet with 2 turns (QC: 9 Type: N/A Wheel 150 feet: 9 Type: N/A PT Plan Problem List Problem List: Activity Tolerance, Functional Strength, Gait Treatment/Plan Treatment Plan: Continue Plan of Care Treatment Plan: Bed Mobility, Education, Functional Activity Rachelle, Functional Strength, Group Therapy, Gait, Safety, Therapeutic Exercise, Transfers Treatment Duration: September 04, 2021 Frequency: At least 5 of 7 days/Wk (IRF) Estimated Hrs Per Day: 1.5 hours per day Patient and/or Family Agrees t: Yes Time/GCodes Time In: 1345 Time Out: 1415 Total Billed Treatment Time: 30 Total Billed Treatment 1, EX x2 (30m) JARED HEWITT BIODIESEL PROCESSING TECHNICIAN August 16, 2021 15:03
--- NOTE | 2021-08-16 16:06 | Wound Care Assessment ---
Wound Care Assessment Date Seen by Provider: August 16, 2021 Time Seen by Provider: 15:59 Chief Complaint Nipple wound HPI Pleasant 80 year old gentleman admitted to inpatient rehab following spinal surgery who noted this a.m. tenderness of R. nipple and crusting of bilateral nipples. After the area of concern was soaked, the crusting was removed. Appearance of dry skin with inflammatory changes. I did attempt to express drainage from nipples themselves and there was some mild tenderness but no galactorrhea. I think the crusting came from irritated external skin of nipple. This could be related to atopic dermatitis but he does have a h/o actinitic keratosis with cryotherapy at Dr. Randle's office numerous times in past. I do not see any overt ulceration to the area of concer. Plan to use mupirocin ointment twice daily to affected area until resolved. If the drainage persists, he is advised to follow up with his primary physician or Dr. Randle as outpatient for further evaluation/treatment. Past Medical History: Admits Heart Disease, Admits Cancer, Treaments Smoking Status: Current Everyday Smoker Alcohol Use: Denies Use Exam Vital Signs Date Time Temp Pulse Resp B/P (MAP) Pulse Ox O2 Delivery O2 Flow Rate FiO2 08/16/21 11:54 38.4 08/16/21 08:08 Room Air 08/16/21 07:13 90 20 117/92 (100) 90 Capillary Refill : General Appearance: WD/WN, no apparent distress Cardiovascular: no edema Respiratory: no respiratory distress, no accessory muscle use Skin: normal color, warm/dry Skin Problem Location: other (bilateral nipples) Skin Character: drainage (serous), other (flaking) Results Laboratory Tests 08/16/21 12:15: White Blood Count 13.5H, Red Blood Count 2.82L, Hemoglobin 9.7L, Hematocrit 28L, Mean Corpuscular Volume 101H, Mean Corpuscular Hemoglobin 34, Mean Corpuscular Hemoglobin Concent 34, Red Cell Distribution Width 13.6, Platelet Count 216, Mean Platelet Volume 9.3, Immature Granulocyte % (Auto) 1, Neutrophils (%) (Auto) 81H, Lymphocytes (%) (Auto) 10L, Monocytes (%) (Auto) 8, Eosinophils (%) (Auto) 0, Basophils (%) (Auto) 0, Neutrophils # (Auto) 10.9H, Lymphocytes # (Auto) 1.4, Monocytes # (Auto) 1.0, Eosinophils # (Auto) 0.0, Basophils # (Auto) 0.0, Immature Granulocyte # (Auto) 0.1, Sodium Level 131L, Potassium Level 3.9, Chloride Level 102, Carbon Dioxide Level 17L, Anion Gap 12, Blood Urea Nitrogen 16, Creatinine 1.09, Estimat Glomerular Filtration Rate 69, BUN/Creatinine Ratio 15, Glucose Level 99, Lactic Acid Level 1.04, Calcium Level 8.5, Corrected C alcium 9.1, Total Bilirubin 0.6, Aspartate Amino Transf (AST/SGOT) 29, Alanine Aminotransferase (ALT/SGPT) 27, Alkaline Phosphatase 76, Total Protein 6.0L, Albumin 3.2, Procalcitonin 0.06 08/16/21 13:25: Urine Color ORANGE, Urine Clarity CLEAR, Urine pH 5.5, Urine Specific [place] 1.025H, Urine Protein NEGATIVE, Urine Glucose (UA) NEGATIVE, Urine Ketones NEGATIVE, Urine Nitrite NEGATIVE, Urine Bilirubin NEGATIVE, Urine Urobilinogen 0.2, Urine Leukocyte Esterase NEGATIVE, Urine RBC (Auto) TRACE-IH, Urine RBC 10- 25H, Urine WBC 2-5, Urine Squamous Epithelial Cells RARE, Urine Crystals PRESENTH, Urine Calcium Oxalate Crystals RAREH, Urine Bacteria TRACE, Urine Casts PRESENT, Urine Hyaline Casts RARE, Urine Mucus NEGATIVE, Urine Culture Indicated NO 08/16/21 14:40: Influenza Type A (RT-PCR) Not Detected, Influenza Type B (RT-PCR) Not Detected, SARS-CoV-2 RNA (RT-PCR) Not Detected Assessment/Plan/Dx Assessment: Unspecified dermatitis of bilateral nipples (differential includes atopic dermatitis, actinic keratosis, or nipple discharge) Plan: 1. Mupirocin ointment bid until resolved 2. If fails to resolve, follow up as outpatient for further workup with primary physician or dermatology MICHAEL WARD MD August 16, 2021 16:06
[2021-08-16] MEDS: CALCIUM CARB + VIT D 600 MG (CALCARB + D) TAB PO SCH (17:50)
[2021-08-16] MEDS: ACETAMINOPHEN 325 MG TABLET PO PRN (19:57)
[2021-08-16 19:58] VITALS: BP 107/55
[2021-08-16] MEDS: MUPIROCIN 2% OINT 22 GM (BACTROBAN) TUBE TOP SCH (21:20)
[2021-08-16] MEDS: ASPIRIN E.C. 81 MG (ECOTRIN) TAB PO SCH (21:23)
[2021-08-16] MEDS: doxAzosin 4 MG (CARDURA) TAB PO SCH (21:23)
[2021-08-16] MEDS: MAGNESIUM OXIDE (MAG-OX)400 MG TAB PO SCH (21:23)
[2021-08-17] MEDS: ACETAMINOPHEN 325 MG TABLET PO PRN ×2 (04:49→20:15)
[2021-08-17] MEDS: MULTIVIT W/MINERALS TAB (THERAGRAN M) PO SCH (05:52)
[2021-08-17] MEDS: LEVOTHYROXINE 50 MCG (LEVOTHROID) TAB PO SCH (05:52)
--- NOTE | 2021-08-17 07:00 | PM&R Progress Note ---
Subjective HPI/CC On Admission Date Seen by Provider: August 17, 2021 Time Seen by Provider: 11:45 Subjective/Events-last exam 08/17/2021: Fever still continues Holding laxatives due to some loose stools but then he says his bowels aren't moving He still continues to smoke, doesn't need a nicotine patch KPad will be used for leg pain Chest x-ray and UA were normal Fever is periodically occurring 08/16/2021: Pt had another fall this morning Septic work up initiated Chest x-ray and UA will be ordered On an alarm now to prevent impulsive behavior Had diarrhea yesterday but none today Had a lot of vertigo Fever is 101 Very complicated individual, will be on standby for any clinical status decline High risk for decompensation Review of Systems General: Fatigue, Malaise Musculoskeletal: neck pain, back pain Focused Exam Lactate Level 08/16/21 12:15: Lactic Acid Level 1.04 Objective Exam Vital Signs Vital Signs Date Time Temp Pulse Resp B/P (MAP) Pulse Ox O2 Delivery O2 Flow Rate FiO2 08/17/21 20:42 Room Air 08/17/21 20:11 38.5 107 16 138/77 (97) 96 Capillary Refill : General Appearance: No Apparent Distress, WD/WN, Chronically ill HEENT: PERRL/EOMI, Normal ENT Inspection, Pharynx Normal Neck: Full Range of Motion, Normal Inspection, Non Tender, Supple, Carotid Bruit Respiratory: Chest Non Tender, Lungs Clear, Normal Breath Sounds, No Accessory Muscle Use, No Respiratory Distress Cardiovascular: Regular Rate, Rhythm, No Edema, No Gallop, No JVD, No Murmur, Normal Peripheral Pulses Gastrointestinal: Normal Bowel Sounds, No Organomegaly, No Pulsatile Mass, Non Tender, Soft Back: Decreased Range of Motion, Muscle Spasm, Vertebral Tenderness Extremity: Normal Capillary Refill, Normal Inspection, Normal Range of Motion, Non Tender, No Calf Tenderness, No Pedal Edema Neurologic/Psychiatric: Alert, Oriented x3, No Motor/Sensory Deficits, Normal Mood/Affect, Abnormal Gait, Motor Weakness Skin: Normal Color, Warm/Dry Lymphatic: No Adenopathy Results/Procedures Lab Patient resulted labs reviewed. FIM Transfers Therapy Code Descriptions/Definitions Functional [place] Measure: 0=Not Assessed/NA 4=Minimal Assistance 1=Total Assistance 5=Supervision or Setup 2=Maximal Assistance 6=Modified [place] 3=Moderate Assistance 7=Complete IndependenceSCALE: Activities may be completed with or without assistive devices. 0-Gfuqbbywri-xarjmhy completes the activity by him/herself with no assistance from a helper. 5-Set-up or Clean-up Assistance-helper sets up or cleans up; patient completes activity. [place] assists only prior to or following the activity. 4-Supervision or Touching Assistance-helper provides verbal cues and/or touching/steadying and/or contact guard assistance as patient completes activity. Assistance may be provided throughout the activity or intermittently. 3-Partial/Moderate Assistance-helper does LESS THAN HALF the effort. [place] lifts, holds or supports trunk or limbs, but provides less than half the effort. 2-Substantial/Maximal Assistance-helper does MORE THAN HALF the effort. [place] lifts or holds trunk or limbs and provides more than half the effort. 3-Cikttoxzr-mnwvjl does ALL the effort. Patient does none of the effort to complete the activity. Or, the assistance of 2 or more helpers is required for the patient to complete the activity. If activity was not attempted, code reason: 7-Patient Refused. 9-Not Applicable-not attempted and the patient did not perform the activity before the current illness, exacerbation or injury. 10-Not Attempted due to Environmental Limitations-(lack of equipment, weather restraints, etc.). 88-Not Attempted due to Medical Conditions or Safety Concerns. Roll Left to Right (QC): 4 Sit to Lying (QC): 4 Sit to Stand (QC): 4 Chair/Cmf-uo-Nzojq Xfer(QC): 4 (SBA) Car Transfer (QC): 4 (SBA) Gait Training Does the Patient Walk?: Yes Distance: 50' x2, 25' Walk 10 feet (QC): 4 Walk 50 ft with 2 Turns(QC): 4 Walk 150 ft (QC): 88 Walking 10ft/uneven surface-QC: 4 (CGA) Gait Persons Needed: 1 Gait Assistive Device: FWW Wheelchair Training Does the Pt Use a Wheelchair?: No Wheel 50 ft with 2 turns (QC): 9 Wheel 150 ft (QC): 9 Type of Wheelchair: N/A Stair Training #of Steps: 1 1 Step (curb) (QC): 4 (CGA) 4 Steps (QC): 88 12 Steps (QC): 88 Balance Picking up an Object (QC): 4 (CGA using solution professional) ADL-Treatment Eating (QC): 4 Oral Hygiene (QC): 88 Shower/Bathe Self (QC): 2 (Max A sponge bath at bed level.) Upper Body Dressing (QC): 3 (Min A doffing robe) Lower Body Dressing (QC): 3 (Mod A) On/Off Footwear (QC): 1 (total assist gripper socks and TEDhose) Toileting Hygiene (QC): 2 Assessment/Plan Assessment and Plan Assess & Plan/Chief Complaint Assessment: 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 Hernández in depth 08/17/2021: Monitor fever Supportive care Pain control (1) Myopathy (2) CAD (coronary artery disease) ABIEL SAUNDERS DO August 17, 2021 07:00
[2021-08-17 07:38] VITALS: BP 132/85
[2021-08-17] MEDS: RANOLAZINE ER 500 MG TAB (RANEXA) PO SCH ×2 (07:42→20:15)
[2021-08-17] MEDS: VITAMIN D3 25 MCG (1,000 UNITS) TABLET PO SCH (07:43)
[2021-08-17] MEDS: ZINC SULFATE 220 MG CAPSULE PO SCH (07:43)
[2021-08-17] MEDS: DRONEDARONE 400 MG TABLET PO SCH ×2 (07:43→20:14)
[2021-08-17] MEDS: APIXABAN 5 MG (ELIQUIS) TABLET PO SCH ×2 (07:43→20:15)
[2021-08-17] MEDS: ALLOPURINOL 100 MG (ZYLOPRIM) TAB PO SCH ×2 (07:43→20:15)
[2021-08-17] MEDS: PANTOPRAZOLE 40 MG (PROTONIX) TAB PO SCH (07:43)
[2021-08-17] MEDS: MICONAZOLE 2% POWDER (DESENEX AF) 90 GM TOP SCH ×2 (07:44→20:25)
--- NOTE | 2021-08-17 09:36 | Cardiology Progress Note ---
Subjective Date Seen by Provider: August 17, 2021 Time Seen by Provider: 09:35 Subjective/Events-last exam Patient was seen at bedside sitting comfortably Reporting improvement in the neck pain, still having numbness in his arms Review of Systems General: No Chills, No Night Sweats; Fatigue, Malaise; No Appetite, No Other HEENT: No Head Aches, No Visual Changes, No Eye Pain, No Ear Pain, No Dysphasia, No Sinus Congestion, No Post Nasal Drip, No Sore Throat, No Other Pulmonary: No Dyspnea, No Cough, No Pleuritic Chest Pain, No Other Cardiovascular: No: Chest Pain, Palpitations, Orthopnea, Paroxysmal Noc. Dyspnea, Edema, Lt Headedness, Other Focused Exam Lactate Level 08/16/21 12:15: Lactic Acid Level 1.04 Objective-Cardiology Exam Last Set of Vital Signs Vital Signs 08/17/21 07:38 Temp 36.6 Pulse 65 Resp 18 B/P (MAP) 132/85 (101) Pulse Ox 97 O2 Delivery Room Air General: Alert, Oriented X3, Cooperative HEENT: Atraumatic, PERRLA, Other (Complaint of neck pain) Neck: Supple, No JVD, No Thyromegaly Lungs: Clear to Auscultation, Normal Air Movement Heart: Regular Rate, Normal S1, Normal S2, No Murmurs Abdomen: Normal Bowel Sounds, Soft, No Tenderness, No Hepatosplenomegaly, No Masses Extremities: No Clubbing, No Cyanosis, No Edema, Normal Pulses, No Tenderness/Swelling Skin: No Rashes, No Breakdown, No Significant Lesion Neuro: Normal Gait, Normal Speech, Normal Tone, Sensation Intact, Other (We akness and numbness in the upper extremities) Psych/Mental Status: Mental Status NL, Mood NL Results Lab Laboratory Tests 08/16/21 12:15 A/P-Cardiology Admission Diagnosis CAD PAF CHF HTN Assessment/Plan s/p Lumbar spine surgery with Dr. Hernández at [facility] on 07/24/21. Had another procedure done 08/03/21 d/t post operative CSF leak. Having generalized debility/weakness, continue with PT Supraventricular tachycardia, paroxysmal atrial flutter with rapid ventricular response, first documented on February 13, 2018 underwent JIMY with cardioversion. S/p ablation with Dr. Martines on 03/16/18. Asymptomatic. Started on Multaq, will continue to monitor History of loop monitor implant, interrogation showed occasional episodes of atrial fibrillation, showed episodes. Continue to monitor Chest pain, history of chronic stable angina, intolerant to NTG with severe headache, tolerating Ranexa, still having occasional recurrent chest pain. Will continue to monitor. Coronary artery disease, status post CABG x3 in 2001. Cardiac catheterization done April 2016 revealing a difficult anatomy was unable to evaluate left coronary system done within the show left heart catheterization. Patent vein graft to the diagonal artery and obtuse marginal branch artery. Occluded small RCA with collateral filling the distal right from the left system. Another angiogram done on April 18, 2016 revealing patent RODRIGUEZ to LAD. Patient did have severe stenosis of the ostium of the left subclavian artery. Underwent stenting to the left subclavian artery. Cardiac catheterization was carried out on February 21, 2021 after having an abnormal stress test which showed severe redding coronary artery disease involving all his redding arteries. The vein graft to the circumflex artery is occluded, the right coronary artery is a small artery that is not bypassed and not amendable to intervention, the vein graft to the diagonal artery is patent with good flow distally, the RODRIGUEZ to the LAD was not visualized due to the fact that the left subclavian stent was protruding in the aortic arch. Normal left ventricular function. CHF, chronic left ventricular systolic dysfunction, 2D echocardiogram was done on February 20, 2021 showing normal LV size, mild LVH, EF 50 to 55%, left atrium 4.1 cm, mild MR, mild AR, PA 30 to 35 mmHg. Continue to monitor Left subclavian artery stenosis-patient underwent left subclavian angiography with left subclavian balloon angioplasty and left subclavian stenting on 04/18/16 using Omnilink 08 stent 9 x 29 x 80 mm with lesion well covered in significant reduction in stenosis severity noted. There was 5-10 percent residue stenosis, however, there were a few stent struts protruding into the aortic arch. Maintained on Plavix and ASA. Continue to monitor Hypertension, labile hypertension, was hypotensive this morning, blood pressure medications held and given IVF bolus. Hyperlipidemia, lipid profile done on February 21, 2021 showing total cholesterol 147, triglyceride 137, HDL 46, LDL 77. Continue to monitor Tobaccoism-educated on the importance of smoking cessation. Carotid artery stenosis-mild nonobstructive disease per carotid duplex done in April 2020, continue to monitor History of malignant melanoma, followed and managed by Dr. Nelson History of prostate cancer, followed and managed by Dr. Nelson. 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 Thank you for allowing us to participate in the management of Mr. Vargas. This is Yandy Mayer PA-C, as a scribe for Dr. Subramanian. Patient was seen and evaluated with Yandy, has been doing well, recovering from surgery, neck pain is better, still having numbness in his upper extremities No further chest pain was reported Events at hospitalization at [facility] was reviewed Coronary artery disease, history of extensive disease, at this time conservative management is recommended He has underlying congestive heart failure. Last echo was done February 2021. Left subclavian artery stenosis Hypertension and hyperlipidemia. Currently hypotensive. I would continue monitoring blood pressure closely and hold antihypertensive medication. KAYLEY SUBRAMANIAN MD August 17, 2021 09:36
--- NOTE | 2021-08-17 09:57 | Occupational Ther Daily Note ---
OT Current Status-Daily Note Subjective Pt up in recliner, agreeable to OT tx. Pt indicates in some ways he feels better today, while in others he feels worse. C/O chills throughout tx, temp 36.2C. ADL-Treatment Therapy Code Descriptions/Definitions Functional [place] Measure: 0=Not Assessed/NA 4=Minimal Assistance 1=Total Assistance 5=Supervision or Setup 2=Maximal Assistance 6=Modified [place] 3=Moderate Assistance 7=Complete IndependenceSCALE: Activities may be completed with or without assistive devices. 6-Flsqdjophh-zgyoalm completes the activity by him/herself with no assistance from a helper. 5-Set-up or Clean-up Assistance-helper sets up or cleans up; patient completes activity. [place] assists only prior to or following the activity. 4-Supervision or Touching Assistance-helper provides verbal cues and/or touching/steadying and/or contact guard assistance as patient completes activity. Assistance may be provided throughout the activity or intermittently. 3-Partial/Moderate Assistance-helper does LESS THAN HALF the effort. [place] lifts, holds or supports trunk or limbs, but provides less than half the effort. 2-Substantial/Maximal Assistance-helper does MORE THAN HALF the effort. [place] lifts or holds trunk or limbs and provides more than half the effort. 5-Avcvnnzxm-ucrkuj does ALL the effort. Patient does none of the effort to complete the activity. Or, the assistance of 2 or more helpers is required for the patient to complete the activity. If activity was not attempted, code reason: 7-Patient Refused. 9-Not Applicable-not attempted and the patient did not perform the activity before the current illness, exacerbation or injury. 10-Not Attempted due to Environmental Limitations-(lack of equipment, weather restraints, etc.). 88-Not Attempted due to Medical Conditions or Safety Concerns. Upper Body Dressing (QC): 5 (set up with pulley man shirt) Lower Body Dressing (QC): 4 (pt able to thread LEs with encouragement and c omplete pant hike, CGA.) Toileting Hygiene (QC): 4 (Pt able to manage clothes with CGA) Other Treatment OT/PT cotreat due to skill of 2 clinicians required which a rehabilitation services director could not perform in order to coordinate UE/LEs, decrease fall risk, and due to pt's limitations in strength and activity tolerance. OT focused on UE placement, cues for sequencing and safety, and ADLs, PT focused on LE placement, gross overall movement, transfers/mobility. Pt requests to use bathroom, used FWW to transfer into bathroom and onto toilet, CGA. Pt completed toileting, then transferred back to recliner for dressing. Pt took rest breaks as needed, c/o chills, temp 36.2C. Pt used FWW to perform functional mobility around [facility] common area/2nd floor, CGA with w/c follow due to history of pt's R knee buckling unexpectedly. Pt completed x3 rounds (50', 75', 200') of functional mobility with FWW, then w/c mobility in order to increase strength and activity tolerance. Pt required frequent, lengthy rest breaks during tx. Pt transferred to recliner, CGA, assist with positioning to comfort. Post tx, pt in recliner, call light in reach and all needs met. Chair alarm activated. Education OT Patient Education: Correct positioning, Energy conservation, Exercise program, Modified ADL techniques, Progress toward Goal/Update tx plan, Purpose of tx/functional activities, Rehab process Teaching Recipient: Patient Teaching Methods: Discussion Response to Teaching: Verbalize Understanding OT Short Term Goals Short Term Goals Time Frame: August 23, 2021 Eatin Oral hygiene: 88 Toileting hygiene: 3 Shower/bathe self: 3 Upper body dressin Lower body dressin Putting on/taking off footwear: 3 OT [employer] Training [employer] Development Rep Goals Senior Training And Development Rep Goals Time Frame: September 04, 2021 Eating (QC): 6 Oral Hygiene (QC): 88 Toileting Hygiene (QC): 6 Shower/Bathe Self (QC): 5 Upper Body Dressing (QC): 5 Lower Body Dressing (QC): 5 On/Off Footwear (QC): 5 1=Demonstrate adherence to instructed precautions during ADL tasks. 2=Patient will verbalize/demonstrate understanding of assistive devices/modifications for ADL. 3=Patient will improve strength/tolerance for activity to enable patient to perform ADL's. OT Education/Plan Problem List/Assessment Assessment: Decreased Activ Tolerance, Decreased UE Strength, Impaired Funct Balance, Impaired I ADL's, Impaired Self-Care Skills Discharge Recommendations Plan/Recommendations: Continue POC Treatment Plan/Plan of Care Patient would benefit from OT for education, treatment and training to promote independence in ADL's, mobility, safety and/or upper extremity function for ADL's. Plan of Care: ADL Retraining, Functional Mobility, Group Exercise/Act as Ind, UE Funct Exercise/Act Treatment Duration: September 04, 2021 Frequency: At least 5 of 7 days/Wk (IRF) Estimated Hrs Per Day: 1.5 hours per day (60-90 min/day) Agreement: Yes Rehab Potential: Fair Time/GCodes Start Time: 09:00 Stop Time: 10:00 Total Time Billed (hr/min): 60 Billed Treatment Time 1, ADL 2 (25'), FA 2 (35') ARLENE JULIO OT August 17, 2021 09:57
--- NOTE | 2021-08-17 10:05 | Physical Therapy Daily Note ---
PT Daily Note-Current Subjective Pt sitting in recliner. Pt reports again not feeling good but temp. taken was 36.2 and felt better as tx continued. Pt agrees to PT/OT co-treat. Mental Status Patient Orientation: Person, Place, Situation Transfers SCALE: Activities may be completed with or without assistive devices. 8-Nhlkicirvr-wbbzyfn completes the activity by him/herself with no assistance from a helper. 5-Set-up or Clean-up Assistance-helper sets up or cleans up; patient completes activity. [place] assists only prior to or following the activity. 4-Supervision or Touching Assistance-helper provides verbal cues and/or touching/steadying and/or contact guard assistance as patient completes activity. Assistance may be provided throughout the activity or intermittently. 3-Partial/Moderate Assistance-helper does LESS THAN HALF the effort. [place] lifts, holds or supports trunk or limbs, but provides less than half the effort. 2-Substantial/Maximal Assistance-helper does MORE THAN HALF the effort. [place] lifts or holds trunk or limbs and provides more than half the effort. 8-Qwmtwmosb-ntoofz does ALL the effort. Patient does none of the effort to com plete the activity. Or, the assistance of 2 or more helpers is required for the patient to complete the activity. If activity was not attempted, code reason: 7-Patient Refused. 9-Not Applicable-not attempted and the patient did not perform the activity before the current illness, exacerbation or injury. 10-Not Attempted due to Environmental Limitations-(lack of equipment, weather restraints, etc.). 88-Not Attempted due to Medical Conditions or Safety Concerns. Sit to Stand (QC): 4 Toilet Transfer (QC): 4 Weight Bearing Right Lower Extremity: Right Full Weight Bearing Left Lower Extremity: Left Full Weight Bearing Gait Training Does the Patient Walk?: Yes Distance: 50', 75', 200' Walk 10 feet (QC): 4 Walk 50 ft with 2 Turns(QC): 4 Walk 150 ft (QC): 4 Gait Persons Needed: 1 Gait Assistive Device: FWW Wheelchair Training Does the Pt Use a Wheelchair?: Yes Wheel 50 ft with 2 turns (QC): 5 Wheel 150 ft (QC): 5 Type of Wheelchair: Manual Treatments OT/PT cotreat due to skill of 2 clinicians required which a manager rehab could not perform in order to coordinate UE/LEs, decrease fall risk, and due to pt's limitations in strength and activity tolerance. OT focused on UE placement, cues for sequencing and safety, and ADLs, PT focused on LE placement, gross overall movement, transfers/mobility. Pt requests to use bathroom, used FWW to transfer into bathroom and onto toilet, CGA. Pt completed toileting, then transferred back to recliner for dressing. Pt took rest breaks as needed, c/o chills, temp 36.2C. Pt used FWW to perform functional mobility around [facility] common area/2nd floor, CGA with w/c follow due to history of pt's R knee buckling unexpectedly. Pt completed x3 rounds (50', 75', 200') of functional mobility with FWW, then w/c mobility in order to increase strength and activity tolerance. Pt required frequent, lengthy rest breaks during tx. Pt transferred to recliner, CGA, assist with positioning to comfort. Post tx, pt in recliner, call light in reach and all needs met. Chair alarm activated. Assessment Current Status: Good Progress Pt still reports not feeling well but better than previous days. Pt fatigues and takes lengthy RB. PT Short Term Goals Short Term Goals Time Frame: August 21, 2021 Roll Left & Right: 6 Sit to lyin Lying to sitting on side of be: 6 Sit to stand: 4 (SBA) Chair/hut-fc-dorfg transfer: 6 Walk 10 feet: 4 (SBA) Walk 50 feet with two turns: 4 (SBA) Walk 150 feet: 4 (SBA) 4 steps: 4 (CGA) PT Custodial Goals Custodial Goals PT Custodial Goals Time Frame: September 04, 2021 Roll Left & Right (QC): 6 Sit to Lying (QC): 6 Lying-Sitting on Side/Bed(QC): 6 Sit to Stand (QC): 6 Chair/Vmt-ws-Knmbr Xfer(QC): 6 Toilet Transfer (QC): 6 Car Transfer (QC): 6 Does the Patient Walk: Yes Walk 10 feet (QC): 6 Walk 50ft with 2 Turns (QC): 6 Walk 150 ft (QC): 6 Walking 10ft on Uneven Surface: 6 1 Step (curb) (QC): 6 4 Steps (QC): 4 (SBA) 12 Steps (QC): 4 (CGA) Picking up an Object (QC): 6 Does the Pt use WC or Scooter?: No Wheel 50 feet with 2 turns (QC: 9 Type: N/A Wheel 150 feet: 9 Type: N/A PT Plan Problem List Problem List: Activity Tolerance, Functional Strength Treatment/Plan Treatment Plan: Continue Plan of Care Treatment Plan: Bed Mobility, Education, Functional Activity Rachelle, Functional Strength, Group Therapy, Gait, Safety, Therapeutic Exercise, Transfers Treatment Duration: September 04, 2021 Frequency: At least 5 of 7 days/Wk (IRF) Estimated Hrs Per Day: 1.5 hours per day Patient and/or Family Agrees t: Yes Safety Risks/Education Patient Education: Transfer Techniques, Correct Positioning, Safety Issues Teaching Recipient: Patient Teaching Methods: Discussion Response to Teaching: Verbalize Understanding Time/GCodes Time In: 900 Time Out: 1000 Total Billed Treatment Time: 60 Total Billed Treatment 1, FA x2 (30m) & GT x2 (30m) Co-treat w/OT for 60m JARED HEWITT PTA August 17, 2021 10:05
[2021-08-17] MEDS: SENNA W/DOCUSATE (SENOKOT S) TABLET PO SCH ×2 (11:18→20:14)
[2021-08-17] MEDS: polyethylene glycoL POWDER 17 GM (MIRALAX) PACK PO SCH ×2 (11:18→20:09)
[2021-08-17] MEDS: DOCUSATE SODIUM 100 MG (COLACE) CAP PO SCH ×2 (11:18→20:14)
[2021-08-17] MEDS: MUPIROCIN 2% OINT 22 GM (BACTROBAN) TUBE TOP SCH ×2 (11:21→20:35)
--- NOTE | 2021-08-17 14:25 | Therapy Group Daily Note ---
Therapy Daily Group Note Patient Education Topic Other List Below (Memory Strategies & Activity) Exercises LE Seated Exercise, UE Exercise Session Ratio (pt:therapist): 3:1 Goal of Session: Memory Strategies, UE/LE Strengthing Goal Met for this Session: Yes Pt Benefit of Group: Contributions to Others, F/U Use of Strategies @Home, Increased Functional Safety, Increased Functional Strength, Improved Cognition, Recognition of Peers, Socialization Other/Notes Pt ambulated to PT/OT Group using FWW. Group consisted of Introduction (Name, Where from & Favorite Hobby in Free Time), Socialization, UE & LE Strengthening, Memory Strategies & Memory Activity. Pt reported feeling cold throughout Group and remained covered with multiple blankets although still actively participated in Group by completing EX, giving strategies used at home and finding 1/2 matches during Memory game. Pt returned to room at end of Group and rested in recliner. All needs met, call light in hand. 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
[2021-08-17] MEDS: CALCIUM CARB + VIT D 600 MG (CALCARB + D) TAB PO SCH (17:41)
[2021-08-17 20:11] VITALS: BP 138/77
[2021-08-17] MEDS: ASPIRIN E.C. 81 MG (ECOTRIN) TAB PO SCH (20:14)
[2021-08-17] MEDS: doxAzosin 4 MG (CARDURA) TAB PO SCH (20:15)
[2021-08-17] MEDS: MAGNESIUM OXIDE (MAG-OX)400 MG TAB PO SCH (20:16)
[2021-08-18] MEDS: LEVOTHYROXINE 50 MCG (LEVOTHROID) TAB PO SCH (06:07)
[2021-08-18] MEDS: MULTIVIT W/MINERALS TAB (THERAGRAN M) PO SCH (06:07)
--- NOTE | 2021-08-18 06:43 | PM&R Progress Note ---
Subjective HPI/CC On Admission Date Seen by Provider: August 18, 2021 Time Seen by Provider: 11:00 Subjective/Events-last exam 08/18/2021: Patient doing a lot better Pain is controlled Fevers are defervescing Becoming more functional Checked meds and labs 08/17/2021: Fever still continues Holding laxatives due to some loose stools but then he says his bowels aren't moving He still continues to smoke, doesn't need a nicotine patch KPad will be used for leg pain Chest x-ray and UA were normal Fever is periodically occurring 08/16/2021: Pt had another fall this morning Septic work up initiated Chest x-ray and UA will be ordered On an alarm now to prevent impulsive behavior Had diarrhea yesterday but none today Had a lot of vertigo Fever is 101 Very complicated individual, will be on standby for any clinical status decline High risk for decompensation Review of Systems Musculoskeletal: neck pain, back pain Focused Exam Lactate Level 08/16/21 12:15: Lactic Acid Level 1.04 Objective Exam Vital Signs Vital Signs Date Time Temp Pulse Resp B/P (MAP) Pulse Ox O2 Delivery O2 Flow Rate FiO2 08/18/21 20:00 Room Air 08/18/21 19:07 38.5 88 16 119/64 (82) 96 Capillary Refill : General Appearance: No Apparent Distress, WD/WN, Chronically ill HEENT: PERRL/EOMI, Normal ENT Inspection, Pharynx Normal Neck: Full Range of Motion, Normal Inspection, Non Tender, Supple, Carotid Bruit Respiratory: Chest Non Tender, Lungs Clear, Normal Breath Sounds, No Accessory Muscle Use, No Respiratory Distress Cardiovascular: Regular Rate, Rhythm, No Edema, No Gallop, No JVD, No Murmur, Normal Peripheral Pulses Gastrointestinal: Normal Bowel Sounds, No Organomegaly, No Pulsatile Mass, Non Tender, Soft Back: Decreased Range of Motion, Muscle Spasm, Vertebral Tenderness Extremity: Normal Capillary Refill, Normal Inspection, Normal Range of Motion, Non Tender, No Calf Tenderness, No Pedal Edema Neurologic/Psychiatric: Alert, Oriented x3, No Motor/Sensory Deficits, Normal Mood/Affect, Abnormal Gait, Motor Weakness Skin: Normal Color, Warm/Dry Lymphatic: No Adenopathy Results/Procedures Lab Patient resulted labs reviewed. FIM Transfers Therapy Code Descriptions/Definitions Functional [place] Measure: 0=Not Assessed/NA 4=Minimal Assistance 1=Total Assistance 5=Supervision or Setup 2=Maximal Assistance 6=Modified [place] 3=Moderate Assistance 7=Complete IndependenceSCALE: Activities may be completed with or without assistive devices. 0-Ceuccsjauu-jlqtsuq completes the activity by him/herself with no assistance from a helper. 5-Set-up or Clean-up Assistance-helper sets up or cleans up; patient completes activity. [place] assists only prior to or following the activity. 4-Supervision or Touching Assistance-helper provides verbal cues and/or touching/steadying and/or contact guard assistance as patient completes a ctivity. Assistance may be provided throughout the activity or intermittently. 3-Partial/Moderate Assistance-helper does LESS THAN HALF the effort. [place] lifts, holds or supports trunk or limbs, but provides less than half the effort. 2-Substantial/Maximal Assistance-helper does MORE THAN HALF the effort. [place] lifts or holds trunk or limbs and provides more than half the effort. 5-Ykhbnaeqz-dvvjan does ALL the effort. Patient does none of the effort to complete the activity. Or, the assistance of 2 or more helpers is required for the patient to complete the activity. If activity was not attempted, code reason: 7-Patient Refused. 9-Not Applicable-not attempted and the patient did not perform the activity before the current illness, exacerbation or injury. 10-Not Attempted due to Environmental Limitations-(lack of equipment, weather restraints, etc.). 88-Not Attempted due to Medical Conditions or Safety Concerns. Roll Left to Right (QC): 4 Sit to Lying (QC): 4 Sit to Stand (QC): 4 Chair/Thp-pc-Eyhmq Xfer(QC): 4 (SBA) Car Transfer (QC): 4 (SBA) Gait Training Does the Patient Walk?: Yes Distance: 50', 75', 200' Walk 10 feet (QC): 4 Walk 50 ft with 2 Turns(QC): 4 Walk 150 ft (QC): 4 Walking 10ft/uneven surface-QC: 4 (CGA) Gait Persons Needed: 1 Gait Assistive Device: FWW Wheelchair Training Does the Pt Use a Wheelchair?: Yes Wheel 50 ft with 2 turns (QC): 5 Wheel 150 ft (QC): 5 Type of Wheelchair: Manual Stair Training #of Steps: 1 1 Step (curb) (QC): 4 (CGA) 4 Steps (QC): 88 12 Steps (QC): 88 Balance Picking up an Object (QC): 4 (CGA using automotive quality engineer) ADL-Treatment Eating (QC): 4 Oral Hygiene (QC): 88 Shower/Bathe Self (QC): 2 (Max A sponge bath at bed level.) Upper Body Dressing (QC): 5 (set up with pullman conductor shirt) Lower Body Dressing (QC): 4 (pt able to thread LEs with encouragement and complete pant hike, CGA.) On/Off Footwear (QC): 1 (total assist gripper socks and TEDhose) Toileting Hygiene (QC): 4 (Pt able to manage clothes with CGA) Assessment/Plan Assessment and Plan Assess & Plan/Chief Complaint Assessment: 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 Hernández in depth 08/17/2021: Monitor fever Supportive care Pain control 08/18/2021: Supportive care Monitor fever (1) Myopathy (2) CAD (coronary artery disease) ABIEL SAUNDERS DO August 18, 2021 06:43
[2021-08-18 07:30] VITALS: BP 127/75
[2021-08-18] MEDS: ALLOPURINOL 100 MG (ZYLOPRIM) TAB PO SCH ×2 (08:39→20:24)
[2021-08-18] MEDS: PANTOPRAZOLE 40 MG (PROTONIX) TAB PO SCH (08:40)
[2021-08-18] MEDS: DOCUSATE SODIUM 100 MG (COLACE) CAP PO SCH ×2 (08:40→20:23)
[2021-08-18] MEDS: ZINC SULFATE 220 MG CAPSULE PO SCH (08:40)
[2021-08-18] MEDS: VITAMIN D3 25 MCG (1,000 UNITS) TABLET PO SCH (08:40)
[2021-08-18] MEDS: RANOLAZINE ER 500 MG TAB (RANEXA) PO SCH ×2 (08:40→20:24)
[2021-08-18] MEDS: DRONEDARONE 400 MG TABLET PO SCH ×2 (08:40→20:24)
[2021-08-18] MEDS: polyethylene glycoL POWDER 17 GM (MIRALAX) PACK PO SCH ×2 (08:40→19:40)
[2021-08-18] MEDS: APIXABAN 5 MG (ELIQUIS) TABLET PO SCH ×2 (08:40→20:24)
[2021-08-18] MEDS: MICONAZOLE 2% POWDER (DESENEX AF) 90 GM TOP SCH ×2 (08:41→20:31)
[2021-08-18] MEDS: MUPIROCIN 2% OINT 22 GM (BACTROBAN) TUBE TOP SCH ×2 (08:41→20:34)
[2021-08-18] MEDS: SENNA W/DOCUSATE (SENOKOT S) TABLET PO SCH ×2 (08:41→20:24)
--- NOTE | 2021-08-18 11:05 | Physical Therapy Daily Note ---
PT Daily Note-Current Subjective Upon arrival, pt was laying in bed. Pt agrees to PT. Pain Comment: Pt reports soreness in back. Mental Status Patient Orientation: Person, Place, Time, Situation Transfers SCALE: Activities may be completed with or without assistive devices. 0-Lovlkfpgtn-opchbkw completes the activity by him/herself with no assistance from a helper. 5-Set-up or Clean-up Assistance-helper sets up or cleans up; patient completes activity. [place] assists only prior to or following the activity. 4-Supervision or Touching Assistance-helper provides verbal cues and/or touching/steadying and/or contact guard assistance as patient completes activity. Assistance may be provided throughout the activity or intermittently. 3-Partial/Moderate Assistance-helper does LESS THAN HALF the effort. [place] lifts, holds or supports trunk or limbs, but provides less than half the effort. 2-Substantial/Maximal Assistance-helper does MORE THAN HALF the effort. [place] lifts or holds trunk or limbs and provides more than half the effort. 2-Tczsfbsgk-xqvvie does ALL the effort. Patient does none of the effort to complete the activity. Or, the assistance of 2 or more helpers is required for the patient to complete the activity. If activity was not attempted, code reason: 7-Patient Refused. 9-Not Applicable-not attempted and the patient did not perform the activity before the current illness, exacerbation or injury. 10-Not Attempted due to Environmental Limitations-(lack of equipment, weather restraints, etc.). 88-Not Attempted due to Medical Conditions or Safety Concerns. Weight Bearing Right Lower Extremity: Right Full Weight Bearing Left Lower Extremity: Left Full Weight Bearing Gait Training Does the Patient Walk?: No and Walking Goal IS indicated Exercises Supine Ex: Ankle pumps, Heel Slides, Knee to chest, Straight leg raise, Hip abd/add Supine Reps: 15 Treatments Pt completed all Exs as listed above. Once PT was concluded, Pt was laying in b ed with call light and tray in reach, and all needs met. Assessment Current Status: Good Progress Pt would benefit from continued PT to improve on strength, and activity tolerance. PT Short Term Goals Short Term Goals Time Frame: August 21, 2021 Roll Left & Right: 6 Sit to lyin Lying to sitting on side of be: 6 Sit to stand: 4 (SBA) Chair/odu-ln-hdlmr transfer: 6 Walk 10 feet: 4 (SBA) Walk 50 feet with two turns: 4 (SBA) Walk 150 feet: 4 (SBA) 4 steps: 4 (CGA) PT Alf Goals Pelt Grader Goals PT Alf Goals Time Frame: September 04, 2021 Roll Left & Right (QC): 6 Sit to Lying (QC): 6 Lying-Sitting on Side/Bed(QC): 6 Sit to Stand (QC): 6 Chair/Vvt-wm-Macqe Xfer(QC): 6 Toilet Transfer (QC): 6 Car Transfer (QC): 6 Does the Patient Walk: Yes Walk 10 feet (QC): 6 Walk 50ft with 2 Turns (QC): 6 Walk 150 ft (QC): 6 Walking 10ft on Uneven Surface: 6 1 Step (curb) (QC): 6 4 Steps (QC): 4 (SBA) 12 Steps (QC): 4 (CGA) Picking up an Object (QC): 6 Does the Pt use WC or Scooter?: No Wheel 50 feet with 2 turns (QC: 9 Type: N/A Wheel 150 feet: 9 Type: N/A PT Plan Problem List Problem List: Activity Tolerance, Functional Strength Treatment/Plan Treatment Plan: Continue Plan of Care Treatment Plan: Bed Mobility, Education, Functional Activity Rachelle, Functional Strength, Group Therapy, Gait, Safety, Therapeutic Exercise, Transfers Treatment Duration: September 04, 2021 Frequency: At least 5 of 7 days/Wk (IRF) Estimated Hrs Per Day: 1.5 hours per day Patient and/or Family Agrees t: Yes Safety Risks/Education Patient Education: Reviewed Precautions Teaching Recipient: Patient Teaching Methods: Discussion Response to Teaching: Verbalize Understanding Pt states he know what he to be careful with, movement bell. Time/GCodes Time In: 1035 Time Out: 1052 Total Billed Treatment Time: 17 Total Billed Treatment 1, EX (17) NANDA ONEIL PTA August 18, 2021 11:05
[2021-08-18] MEDS: CALCIUM CARB + VIT D 600 MG (CALCARB + D) TAB PO SCH (17:05)
[2021-08-18 19:07] VITALS: BP 119/64
[2021-08-18] MEDS: ACETAMINOPHEN 325 MG TABLET PO PRN (19:18)
[2021-08-18] MEDS: doxAzosin 4 MG (CARDURA) TAB PO SCH (20:23)
[2021-08-18] MEDS: MAGNESIUM OXIDE (MAG-OX)400 MG TAB PO SCH (20:24)
[2021-08-18] MEDS: ASPIRIN E.C. 81 MG (ECOTRIN) TAB PO SCH (20:24)
[2021-08-19] MEDS: LEVOTHYROXINE 50 MCG (LEVOTHROID) TAB PO SCH (06:12)
[2021-08-19] MEDS: MULTIVIT W/MINERALS TAB (THERAGRAN M) PO SCH (06:12)
--- NOTE | 2021-08-19 07:04 | PM&R Progress Note ---
Subjective HPI/CC On Admission Date Seen by Provider: August 19, 2021 Time Seen by Provider: 11:00 Subjective/Events-last exam 08/19/2021: Patient about the same today Apathy noted Refusing to eat and drink much at all Had a long conversation with about lack of motivation and cannot improve nutrition intake Told her if he fails inpatient rehab he will need alf placement Will talk to health and social care teacher tomorrow 08/18/2021: Patient doing a lot better Pain is controlled Fevers are defervescing Becoming more functional Checked meds and labs 08/17/2021: Fever still continues Holding laxatives due to some loose stools but then he says his bowels aren't moving He still continues to smoke, doesn't need a nicotine patch KPad will be used for leg pain Chest x-ray and UA were normal Fever is periodically occurring 08/16/2021: Pt had another fall this morning Septic work up initiated Chest x-ray and UA will be ordered On an alarm now to prevent impulsive behavior Had diarrhea yesterday but none today Had a lot of vertigo Fever is 101 Very complicated individual, will be on standby for any clinical status decline High risk for decompensation Review of Systems General: Fatigue, Malaise Musculoskeletal: neck pain, back pain Focused Exam Lactate Level Objective Exam Vital Signs Vital Signs Date Time Temp Pulse Resp B/P (MAP) Pulse Ox O2 Delivery O2 Flow Rate FiO2 08/19/21 20:20 Room Air 08/19/21 20:03 37.8 102 22 100/51 (67) 93 2.00 Capillary Refill : General Appearance: No Apparent Distress, WD/WN, Chronically ill HEENT: PERRL/EOMI, Normal ENT Inspection, Pharynx Normal Neck: Full Range of Motion, Normal Inspection, Non Tender, Supple, Carotid Bruit Respiratory: Chest Non Tender, Lungs Clear, Normal Breath Sounds, No Accessory Muscle Use, No Respiratory Distress Cardiovascular: Regular Rate, Rhythm, No Edema, No Gallop, No JVD, No Murmur, Normal Peripheral Pulses Gastrointestinal: Normal Bowel Sounds, No Organomegaly, No Pulsatile Mass, Non Tender, Soft Back: Decreased Range of Motion, Muscle Spasm, Vertebral Tenderness Extremity: Normal Capillary Refill, Normal Inspection, Normal Range of Motion, Non Tender, No Calf Tenderness, No Pedal Edema Neurologic/Psychiatric: Alert, Oriented x3, No Motor/Sensory Deficits, Normal Mood/Affect, Abnormal Gait, Motor Weakness Skin: Normal Color, Warm/Dry Lymphatic: No Adenopathy Results/Procedures Lab Patient resulted labs reviewed. FIM Transfers Therapy Code Descriptions/Definitions Functional [place] Measure: 0=Not Assessed/NA 4=Minimal Assistance 1=Total Assistance 5=Supervision or Setup 2=Maximal Assistance 6=Modified [place] 3=Moderate Assistance 7=Complete IndependenceSCALE: Activities may be completed with or without assistive devices. 9-Ytqlxoyntq-zcuaknv completes the activity by him/herself with no assistance from a helper. 5-Set-up or Clean-up Assistance-helper sets up or cleans up; patient completes activity. [place] assists only prior to or following the activity. 4-Supervision or Touching Assistance-helper provides verbal cues and/or touching/steadying and/or contact guard assistance as patient completes activity. Assistance may be provided throughout the activity or intermittently. 3-Partial/Moderate Assistance-helper does LESS THAN HALF the effort. [place] lifts, holds or supports trunk or limbs, but provides less than half the effort. 2-Substantial/Maximal Assistance-helper does MORE THAN HALF the effort. [place] lifts or holds trunk or limbs and provides more than half the effort. 0-Qpdenwfyh-cwpvwi does ALL the effort. Patient does none of the effort to complete the activity. Or, the assistance of 2 or more helpers is required for the patient to complete the activity. If activity was not attempted, code reason: 7-Patient Refused. 9-Not Applicable-not attempted and the patient did not perform the activity before the current illness, exacerbation or injury. 10-Not Attempted due to Environmental Limitations-(lack of equipment, weather restraints, etc.). 88-Not Attempted due to Medical Conditions or Safety Concerns. Roll Left to Right (QC): 4 Sit to Lying (QC): 4 Sit to Stand (QC): 4 Chair/Gxs-ye-Qzwdn Xfer(QC): 4 (SBA) Car Transfer (QC): 4 (SBA) Gait Training Does the Patient Walk?: No and Walking Goal IS indicated Distance: 50', 75', 200' Walk 10 feet (QC): 4 Walk 50 ft with 2 Turns(QC): 4 Walk 150 ft (QC): 4 Walking 10ft/uneven surface-QC: 4 (CGA) Gait Persons Needed: 1 Gait Assistive Device: FWW Wheelchair Training Does the Pt Use a Wheelchair?: Yes Wheel 50 ft with 2 turns (QC): 5 Wheel 150 ft (QC): 5 Type of Wheelchair: Manual Stair Training #of Steps: 1 1 Step (curb) (QC): 4 (CGA) 4 Steps (QC): 88 12 Steps (QC): 88 Balance Picking up an Object (QC): 4 (CGA using quality compliance coordinator) ADL-Treatment Eating (QC): 4 Oral Hygiene (QC): 88 Shower/Bathe Self (QC): 2 (Max A sponge bath at bed level.) Upper Body Dressing (QC): 5 (set up with basting puller shirt) Lower Body Dressing (QC): 4 (pt able to thread LEs with encouragement and complete pant hike, CGA.) On/Off Footwear (QC): 1 (total assist gripper socks and TEDhose) Toileting Hygiene (QC): 4 (Pt able to manage clothes with CGA) Assessment/Plan Assessment and Plan Assess & Plan/Chief Complaint Assessment: 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 Hernández in depth 08/17/2021: Monitor fever Supportive care Pain control 08/18/2021: Supportive care Monitor fever 08/19/2021: Poor motivation Supportive care (1) Myopathy (2) CAD (coronary artery disease) ABIEL SAUNDERS DO August 19, 2021 07:04
[2021-08-19 07:30] VITALS: BP 112/63
[2021-08-19] MEDS: SENNA W/DOCUSATE (SENOKOT S) TABLET PO SCH ×2 (08:22→20:24)
[2021-08-19] MEDS: DRONEDARONE 400 MG TABLET PO SCH ×2 (08:22→20:23)
[2021-08-19] MEDS: RANOLAZINE ER 500 MG TAB (RANEXA) PO SCH ×2 (08:22→20:24)
[2021-08-19] MEDS: VITAMIN D3 25 MCG (1,000 UNITS) TABLET PO SCH (08:22)
[2021-08-19] MEDS: ZINC SULFATE 220 MG CAPSULE PO SCH (08:23)
[2021-08-19] MEDS: polyethylene glycoL POWDER 17 GM (MIRALAX) PACK PO SCH ×2 (08:23→20:47)
[2021-08-19] MEDS: APIXABAN 5 MG (ELIQUIS) TABLET PO SCH ×2 (08:23→20:23)
[2021-08-19] MEDS: PANTOPRAZOLE 40 MG (PROTONIX) TAB PO SCH (08:23)
[2021-08-19] MEDS: ALLOPURINOL 100 MG (ZYLOPRIM) TAB PO SCH ×2 (08:23→20:25)
[2021-08-19] MEDS: DOCUSATE SODIUM 100 MG (COLACE) CAP PO SCH ×2 (08:23→20:25)
[2021-08-19] MEDS: MUPIROCIN 2% OINT 22 GM (BACTROBAN) TUBE TOP SCH ×2 (08:34→20:36)
[2021-08-19] MEDS: MICONAZOLE 2% POWDER (DESENEX AF) 90 GM TOP SCH ×2 (08:34→20:36)
[2021-08-19] MEDS: SUCRALFATE 1 GM (CARAFATE) TAB PO SCH ×2 (15:21→20:23)
[2021-08-19] MEDS: CALCIUM CARB + VIT D 600 MG (CALCARB + D) TAB PO SCH (16:49)
[2021-08-19 20:03] VITALS: BP 100/51
[2021-08-19] MEDS: doxAzosin 4 MG (CARDURA) TAB PO SCH (20:24)
[2021-08-19] MEDS: ASPIRIN E.C. 81 MG (ECOTRIN) TAB PO SCH (20:24)
[2021-08-19] MEDS: MAGNESIUM OXIDE (MAG-OX)400 MG TAB PO SCH (20:24)
--- NOTE | 2021-08-20 05:57 | PM&R Progress Note ---
Subjective HPI/CC On Admission Date Seen by Provider: August 20, 2021 Time Seen by Provider: 09:30 Subjective/Events-last exam 08/20/2021: Patient doing a little better today Talk to him about the need to increase nutrition Seems to be participating pretty well today I did update clinical social worker regarding the need for possible skilled placement if he continues to decline 08/19/2021: Patient about the same today Apathy noted Refusing to eat and drink much at all Had a long conversation with about lack of motivation and cannot improve nutrition intake Told her if he fails inpatient rehab he will need jail placement Will talk to clinical social worker tomorrow 08/18/2021: Patient doing a lot better Pain is controlled Fevers are defervescing Becoming more functional Checked meds and labs 08/17/2021: Fever still continues Holding laxatives due to some loose stools but then he says his bowels aren't moving He still continues to smoke, doesn't need a nicotine patch KPad will be used for leg pain Chest x-ray and UA were normal Fever is periodically occurring 08/16/2021: Pt had another fall this morning Septic work up initiated Chest x-ray and UA will be ordered On an alarm now to prevent impulsive behavior Had diarrhea yesterday but none today Had a lot of vertigo Fever is 101 Very complicated individual, will be on standby for any clinical status decline High risk for decompensation Review of Systems General: Fatigue, Malaise Objective Exam Vital Signs Vital Signs Date Time Temp Pulse Resp B/P (MAP) Pulse Ox O2 Delivery O2 Flow Rate FiO2 08/20/21 21:10 38.1 08/20/21 20:20 Room Air 08/20/21 20:05 107 16 116/65 (82) 97 08/19/21 20:03 2.00 Capillary Refill : General Appearance: No Apparent Distress, WD/WN, Chronically ill HEENT: PERRL/EOMI, Normal ENT Inspection, Pharynx Normal Neck: Full Range of Motion, Normal Inspection, Non Tender, Supple, Carotid Bruit Respiratory: Chest Non Tender, Lungs Clear, Normal Breath Sounds, No Accessory Muscle Use, No Respiratory Distress Cardiovascular: Regular Rate, Rhythm, No Edema, No Gallop, No JVD, No Murmur, Normal Peripheral Pulses Gastrointestinal: Normal Bowel Sounds, No Organomegaly, No Pulsatile Mass, Non Tender, Soft Back: Decreased Range of Motion, Muscle Spasm, Vertebral Tenderness Extremity: Normal Capillary Refill, Normal Inspection, Normal Range of Motion, Non Tender, No Calf Tenderness, No Pedal Edema Neurologic/Psychiatric: Alert, Oriented x3, No Motor/Sensory Deficits, Normal Mood/Affect, Abnormal Gait, Motor Weakness Skin: Normal Color, Warm/Dry Lymphatic: No Adenopathy Results/Procedures Lab Laboratory Tests 08/20/21 06:43 Patient resulted labs reviewed. FIM Transfers Therapy Code Descriptions/Definitions Functional [place] Measure: 0=Not Assessed/NA 4=Minimal Assistance 1=Total Assistance 5=Supervision or Setup 2=Maximal Assistance 6=Modified [place] 3=Moderate Assistance 7=Complete IndependenceSCALE: Activities may be completed with or without assistive devices. 7-Juyfdimwpz-jinilol completes the activity by him/herself with no assistance from a helper. 5-Set-up or Clean-up Assistance-helper sets up or cleans up; patient completes activity. [place] assists only prior to or following the activity. 4-Supervision or Touching Assistance-helper provides verbal cues and/or to uching/steadying and/or contact guard assistance as patient completes activity. Assistance may be provided throughout the activity or intermittently. 3-Partial/Moderate Assistance-helper does LESS THAN HALF the effort. [place] lifts, holds or supports trunk or limbs, but provides less than half the effort. 2-Substantial/Maximal Assistance-helper does MORE THAN HALF the effort. [place] lifts or holds trunk or limbs and provides more than half the effort. 5-Rlolsslka-bgxiwo does ALL the effort. Patient does none of the effort to complete the activity. Or, the assistance of 2 or more helpers is required for the patient to complete the activity. If activity was not attempted, code reason: 7-Patient Refused. 9-Not Applicable-not attempted and the patient did not perform the activity before the current illness, exacerbation or injury. 10-Not Attempted due to Environmental Limitations-(lack of equipment, weather restraints, etc.). 88-Not Attempted due to Medical Conditions or Safety Concerns. Roll Left to Right (QC): 4 Sit to Lying (QC): 4 Sit to Stand (QC): 4 Chair/Uwn-lq-Nvhjv Xfer(QC): 4 (SBA) Car Transfer (QC): 4 (SBA) Gait Training Does the Patient Walk?: No and Walking Goal IS indicated Distance: 50', 75', 200' Walk 10 feet (QC): 4 Walk 50 ft with 2 Turns(QC): 4 Walk 150 ft (QC): 4 Walking 10ft/uneven surface-QC: 4 (CGA) Gait Persons Needed: 1 Gait Assistive Device: FWW Wheelchair Training Does the Pt Use a Wheelchair?: Yes Wheel 50 ft with 2 turns (QC): 5 Wheel 150 ft (QC): 5 Type of Wheelchair: Manual Stair Training #of Steps: 1 1 Step (curb) (QC): 4 (CGA) 4 Steps (QC): 88 12 Steps (QC): 88 Balance Picking up an Object (QC): 4 (CGA using cotton broker) ADL-Treatment Eating (QC): 4 Oral Hygiene (QC): 88 Shower/Bathe Self (QC): 2 (Max A sponge bath at bed level.) Upper Body Dressing (QC): 5 (set up with drum puller shirt) Lower Body Dressing (QC): 4 (pt able to thread LEs with encouragement and complete pant hike, CGA.) On/Off Footwear (QC): 1 (total assist gripper socks and TEDhose) Toileting Hygiene (QC): 4 (Pt able to manage clothes with CGA) Assessment/Plan Assessment and Plan Assess & Plan/Chief Complaint Assessment: 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 Hernández in depth 08/17/2021: Monitor fever Supportive care Pain control 08/18/2021: Supportive care Monitor fever 08/19/2021: Poor motivation Supportive care 08/20/2021: Supportive care Monitor closely May need skilled care (1) Myopathy (2) CAD (coronary artery disease) ABIEL SAUNDERS DO August 20, 2021 05:57
[2021-08-20] MEDS: LEVOTHYROXINE 50 MCG (LEVOTHROID) TAB PO SCH (06:03)
[2021-08-20] MEDS: SUCRALFATE 1 GM (CARAFATE) TAB PO SCH ×4 (06:03→20:11)
[2021-08-20] MEDS: MULTIVIT W/MINERALS TAB (THERAGRAN M) PO SCH (06:03)
[2021-08-20 07:07] LABS: BASOPHILS % (AUTO) 0 % (0-10); EOSINOPHILS # (AUTO) 0.2 10^3/uL (0.0-0.3); EOSINOPHILS % (AUTO) 3 % (0-10); HEMATOCRIT 29 % (40-54); HEMOGLOBIN 9.9 g/dL (13.3-17.7); LYMPHOCYTES # (AUTO) 1.2 10^3/uL (1.0-4.0); LYMPHOCYTES % (AUTO) 14 % (12-44); MEAN CORPUSCULAR HEMOGLOBIN 34 pg (25-34); MEAN CORPUSCULAR HGB CONC 34 g/dL (32-36); MEAN CORPUSCULAR VOLUME 100 fL (80-99); MEAN PLATELET VOLUME 9.1 fL (9.0-12.2); MONOCYTES # (AUTO) 0.9 10^3/uL (0.0-1.0); MONOCYTES % (AUTO) 10 % (0-12); NEUTROPHILS # (AUTO) 6.5 10^3/uL (1.8-7.8); NEUTROPHILS % (AUTO) 73 % (42-75); PLATELET COUNT 209 10^3/uL (130-400)
[2021-08-20 07:24] LABS: ALBUMIN 2.9 GM/DL (3.2-4.5); POTASSIUM 3.7 MMOL/L (3.6-5.0)
[2021-08-20 07:25] LABS: CALCIUM 8.7 MG/DL (8.5-10.1)
[2021-08-20 07:27] LABS: TOTAL PROTEIN 5.7 GM/DL (6.4-8.2)
[2021-08-20 07:29] LABS: BILIRUBIN,TOTAL 0.8 MG/DL (0.1-1.0)
[2021-08-20 07:30] VITALS: BP 120/54
[2021-08-20 07:30] LABS: CREATININE SERUM 0.8 MG/DL (0.60-1.30)
[2021-08-20] MEDS: VITAMIN D3 25 MCG (1,000 UNITS) TABLET PO SCH (08:25)
[2021-08-20] MEDS: PANTOPRAZOLE 40 MG (PROTONIX) TAB PO SCH (08:25)
[2021-08-20] MEDS: ZINC SULFATE 220 MG CAPSULE PO SCH (08:25)
[2021-08-20] MEDS: RANOLAZINE ER 500 MG TAB (RANEXA) PO SCH ×2 (08:25→20:11)
[2021-08-20] MEDS: APIXABAN 5 MG (ELIQUIS) TABLET PO SCH ×2 (08:26→20:11)
[2021-08-20] MEDS: DOCUSATE SODIUM 100 MG (COLACE) CAP PO SCH ×2 (08:26→20:11)
[2021-08-20] MEDS: DRONEDARONE 400 MG TABLET PO SCH ×2 (08:26→20:11)
[2021-08-20] MEDS: SENNA W/DOCUSATE (SENOKOT S) TABLET PO SCH ×2 (08:26→20:11)
[2021-08-20] MEDS: ALLOPURINOL 100 MG (ZYLOPRIM) TAB PO SCH ×2 (08:26→20:11)
[2021-08-20] MEDS: polyethylene glycoL POWDER 17 GM (MIRALAX) PACK PO SCH ×2 (08:27→19:26)
[2021-08-20] MEDS: MUPIROCIN 2% OINT 22 GM (BACTROBAN) TUBE TOP SCH ×2 (08:30→20:13)
[2021-08-20] MEDS: MICONAZOLE 2% POWDER (DESENEX AF) 90 GM TOP SCH ×2 (08:30→20:12)
--- NOTE | 2021-08-20 09:04 | Cardiology Progress Note ---
Subjective Date Seen by Provider: August 20, 2021 Time Seen by Provider: 08:40 Subjective/Events-last exam The patient was laying in bed comfortably this morning. He was with his son. The patient denies any acute changes overnight. The patient reports a decreased appetite. Nursing reports that he has not had a bowel movement since 08/15/21. He is not having any chest pain, shortness of breath. He reports having some episodes of dizziness on exertion when changing positions in bed. Review of Systems General: No Chills; Appetite (decreased ) HEENT: No Head Aches, No Visual Changes Pulmonary: No Dyspnea, No Cough Cardiovascular: No: Chest Pain, Edema Gastrointestinal: No: Nausea, Vomiting, Diarrhea Genitourinary: No Hematuria; Other (reports low urine volume when feeling the urge to void) Musculoskeletal: No: neck pain, shoulder pain Neurological: No: Incoordination, Change in speech Objective-Cardiology Exam Last Set of Vital Signs Vital Signs 08/19/21 08/20/21 08/20/21 20:03 07:30 09:00 Temp 36.7 Pulse 72 Resp 18 B/P (MAP) 120/54 (76) Pulse Ox 97 O2 Delivery Room Air O2 Flow Rate 2.00 General: Alert, Oriented X3, Cooperative HEENT: Atraumatic, PERRLA, Other (Complaint of neck pain) Neck: Supple, No JVD, No Thyromegaly Lungs: Clear to Auscultation, Normal Air Movement Heart: Regular Rate, Normal S1, Normal S2, No Murmurs Abdomen: Normal Bowel Sounds, Soft, No Tenderness, No Hepatosplenomegaly, No Masses Extremities: No Clubbing, No Cyanosis, No Edema, Normal Pulses, No Tenderness/Swelling Skin: No Rashes, No Breakdown, No Significant Lesion Neuro: Normal Gait, Normal Speech, Normal Tone, Sensation Intact, Other (Weakness and numbness in the upper extremities) Psych/Mental Status: Mental Status NL, Mood NL Results Lab Laboratory Tests 08/20/21 06:43 A/P-Cardiology Admission Diagnosis CAD PAF CHF HTN Assessment/Plan s/p Lumbar spine surgery with Dr. Hernández at [facility] on 07/24/21. Had another procedure done 08/03/21 d/t post operative CSF leak. Having generalized debility/weakness, continue with PT Supraventricular tachycardia, paroxysmal atrial flutter with rapid ventricular response, first documented on February 13, 2018 underwent JIMY with cardioversion. S/p ablation with Dr. Martines on 03/16/18. Asymptomatic. Started on Multaq, will continue to monitor History of loop monitor implant, interrogation showed occasional episodes of atrial fibrillation, showed episodes. Continue to monitor Chest pain, history of chronic stable angina, intolerant to NTG with severe headache, tolerating Ranexa, still having occasional recurrent chest pain. Will continue to monitor. Coronary artery disease, status post CABG x3 in 2001. Cardiac catheterization done April 2016 revealing a difficult anatomy was magaly ble to evaluate left coronary system done within the show left heart catheterization. Patent vein graft to the diagonal artery and obtuse marginal branch artery. Occluded small RCA with collateral filling the distal right from the left system. Another angiogram done on April 18, 2016 revealing patent RODRIGUEZ to LAD. Patient did have severe stenosis of the ostium of the left subclavian artery. Underwent stenting to the left subclavian artery. Cardiac catheterization was carried out on February 21, 2021 after having an abnormal stress test which showed severe [place] coronary artery disease involvi ng all his [place] arteries. The vein graft to the circumflex artery is occluded, the right coronary artery is a small artery that is not bypassed and not amendable to intervention, the vein graft to the diagonal artery is patent with good flow distally, the RODRIGUEZ to the LAD was not visualized due to the fact that the left subclavian stent was protruding in the aortic arch. Normal left ventricular function. CHF, chronic left ventricular systolic dysfunction, 2D echocardiogram was done on February 20, 2021 showing normal LV size, mild LVH, EF 50 to 55%, left atrium 4.1 cm, mild MR, mild AR, PA 30 to 35 mmHg. Continue to monitor Left subclavian artery stenosis-patient underwent left subclavian angiography with left subclavian balloon angioplasty and left subclavian stenting on 04/18/16 using Omnilink 08 stent 9 x 29 x 80 mm with lesion well covered in significant reduction in stenosis severity noted. There was 5-10 percent residue stenosis, however, there were a few stent struts protruding into the aortic arch. Maintained on Plavix and ASA. Continue to monitor Hypertension, labile hypertension, blood pressure is more stable. Continue to monitor Hyperlipidemia, lipid profile done on February 21, 2021 showing total cholesterol 147, triglyceride 137, HDL 46, LDL 77. Continue to monitor Tobaccoism-educated on the importance of smoking cessation. Carotid artery stenosis-mild nonobstructive disease per carotid duplex done in April 2020, continue to monitor History of malignant melanoma, followed and managed by Dr. Nelson History of prostate cancer, followed and managed by Dr. Nelson. 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 Supervisory-Addendum Brief Verification & Attestation Participated in pt care: history, MDM, physical Personally performed: exam, history, MDM, supervision of care Care discussed with: Medical Student Procedures: n/a Results interpretation: Verified all documentation Verification and Attestation of Medical Student E/M Service A medical student performed and documented this service in my presence. I r eviewed and verified all information documented by the medical student and made modifications to such information, when appropriate. I personally performed the physical exam and medical decision making. Patient was seen and evaluated at bedside, sitting comfortably, receiving physical therapy. Still having some neck and back pain, numbness in his arms. No chest pain was reported. Blood pressure is stable. Continue to monitor no changes are recommended Nellie Subramanian August 20, 2021,10:35 JAYMIE BENNETT August 20, 2021 09:04 NELLIE SUBRAMANIAN MD August 20, 2021 10:36
--- NOTE | 2021-08-20 09:54 | Physical Therapy Daily Note ---
PT Daily Note-Current Subjective Patient was in bed upon entering. Patient had no new complaints at the start of treatment. PT and OT co-treated today due to excessive weakness, lack of endurance, balance issues, fall risk and safety concerns. Pain Comment: Patient reports back being uncomfortable during activities Mental Status Patient Orientation: Person, Place, Situation Transfers SCALE: Activities may be completed with or without assistive devices. 7-Fojulhzefh-hcitfnd completes the activity by him/herself with no assistance from a helper. 5-Set-up or Clean-up Assistance-helper sets up or cleans up; patient completes activity. [place] assists only prior to or following the activity. 4-Supervision or Touching Assistance-helper provides verbal cues and/or touching/steadying and/or contact guard assistance as patient completes activity. Assistance may be provided throughout the activity or intermittently. 3-Partial/Moderate Assistance-helper does LESS THAN HALF the effort. [place] lifts, holds or supports trunk or limbs, but provides less than half the effort. 2-Substantial/Maximal Assistance-helper does MORE THAN HALF the effort. [place] lifts or holds trunk or limbs and provides more than half the effort. 7-Scehqwzwa-tsslnq does ALL the effort. Patient does none of the effort to complete the activity. Or, the assistance of 2 or more helpers is required for the patient to complete the activity. If activity was not attempted, code reason: 7-Patient Refused. 9-Not Applicable-not attempted and the patient did not perform the activity before the current illness, exacerbation or injury. 10-Not Attempted due to Environmental Limitations-(lack of equipment, weather restraints, etc.). 88-Not Attempted due to Medical Conditions or Safety Concerns. Lying to Sitting/Side of Bed(Q: 4 Sit to Stand (QC): 4 CGA Weight Bearing Right Lower Extremity: Right Full Weight Bearing Left Lower Extremity: Left Full Weight Bearing Gait Training Does the Patient Walk?: Yes Distance: 100', 75' x 2 Walk 10 feet (QC): 4 Walk 50 ft with 2 Turns(QC): 4 Gait Assistive Device: FWW R knee tends to hyperextend during stance. Treatments Ambulation. Balloon toss balance game (patient able to stand for 1 min at a time before needing a rest break). PT worked on LE positioning, balance, and guarding. OT worked on UE coordination and positioning. Seated Pipe fitting game (work on core strength). Assessment Current Status: Fair Progress Patient needs several rest breaks with activities, especially walking and standing. Patient lost balance a few times with balloon game, but kept good balance for most of the time using no hands on walker. Patient was left with OT after session. PT Short Term Goals Short Term Goals Time Frame: August 21, 2021 Roll Left & Right: 6 Sit to lyin Lying to sitting on side of be: 6 Sit to stand: 4 (SBA) Chair/spu-pe-hepca transfer: 6 Walk 10 feet: 4 (SBA) Walk 50 feet with two turns: 4 (SBA) Walk 150 feet: 4 (SBA) 4 steps: 4 (CGA) PT Pomology Teacher Goals Mcc Goals PT Mcc Goals Time Frame: September 04, 2021 Roll Left & Right (QC): 6 Sit to Lying (QC): 6 Lying-Sitting on Side/Bed(QC): 6 Sit to Stand (QC): 6 Chair/Pab-xa-Jqwxu Xfer(QC): 6 Toilet Transfer (QC): 6 Car Transfer (QC): 6 Does the Patient Walk: Yes Walk 10 feet (QC): 6 Walk 50ft with 2 Turns (QC): 6 Walk 150 ft (QC): 6 Walking 10ft on Uneven Surface: 6 1 Step (curb) (QC): 6 4 Steps (QC): 4 (SBA) 12 Steps (QC): 4 (CGA) Picking up an Object (QC): 6 Does the Pt use WC or Scooter?: No Wheel 50 feet with 2 turns (QC: 9 Type: N/A Wheel 150 feet: 9 Type: N/A PT Plan Problem List Problem List: Activity Tolerance, Functional Strength, Safety, Balance, Gait, Transfer, Bed Mobility, ROM Treatment/Plan Treatment Plan: Continue Plan of Care Treatment Plan: Bed Mobility, Education, Functional Activity Rachelle, Functional Strength, Group Therapy, Gait, Safety, Therapeutic Exercise, Transfers Treatment Duration: September 04, 2021 Frequency: At least 5 of 7 days/Wk (IRF) Estimated Hrs Per Day: 1.5 hours per day Patient and/or Family Agrees t: Yes Safety Risks/Education Patient Education: Gait Training, Transfer Techniques, Reviewed Precautions, Correct Positioning, Safety Issues Teaching Recipient: Patient Teaching Methods: Discussion Response to Teaching: Verbalize Understanding Time/GCodes Time In: 00 Time Out: 1000 Total Billed Treatment Time: 60 Total Billed Treatment 1 visit FA 30min EX 30' REED ROMAN PT August 20, 2021 09:54
--- NOTE | 2021-08-20 10:01 | Occupational Ther Daily Note ---
OT Current Status-Daily Note Subjective Pt in bed, agreeable to Therapy tx. Mental Status/Objective Patient Orientation: Normal For Age ADL-Treatment Therapy Code Descriptions/Definitions Functional [place] Measure: 0=Not Assessed/NA 4=Minimal Assistance 1=Total Assistance 5=Supervision or Setup 2=Maximal Assistance 6=Modified [place] 3=Moderate Assistance 7=Complete IndependenceSCALE: Activities may be completed with or without assistive devices. 9-Vffyzbgzdg-edhteco completes the activity by him/herself with no assistance from a helper. 5-Set-up or Clean-up Assistance-helper sets up or cleans up; patient completes activity. [place] assists only prior to or following the activity. 4-Supervision or Touching Assistance-helper provides verbal cues and/or touching/steadying and/or contact guard assistance as patient completes activity. Assistance may be provided throughout the activity or intermittently. 3-Partial/Moderate Assistance-helper does LESS THAN HALF the effort. [place] lifts, holds or supports trunk or limbs, but provides less than half the effort. 2-Substantial/Maximal Assistance-helper does MORE THAN HALF the effort. [place] lifts or holds trunk or limbs and provides more than half the effort. 2-Wphianzbc-akknwo does ALL the effort. Patient does none of the effort to complete the activity. Or, the assistance of 2 or more helpers is required for the patient to complete the activity. If activity was not attempted, code reason: 7-Patient Refused. 9-Not Applicable-not attempted and the patient did not perform the activity before the current illness, exacerbation or injury. 10-Not Attempted due to Environmental Limitations-(lack of equipment, weather restraints, etc.). 88-Not Attempted due to Medical Conditions or Safety Concerns. Lower Body Dressing (QC): 4 (CGA, pt required verbal cues for back precautions) Other Treatment OT/PT cotreat due to skill of 2 clinicians required which a vocational rehabilitation consultant could not perform in order to coordinate UE/LEs, decrease fall risk, focus on higher level balance task, and due to pt's limitations in strength and activity tolerance. OT focused on UE placement, cues for sequencing and safety, and ADLs, PT focused on LE placement, gross overall movement, transfers/mobility. Pt transferred supine to sit EOB, donned pants, pt required verbal cue to adhere to back precaution with task. Pt used FWW to perform functional mobility to therapy gym, transferred to therapy mat. Pt completed 3 rounds of balloon toss, hitting balloon back and forth with OT as PT assisted with balance as needed. Pt has s everal LOB during activity, and only able to tolerate ~1min at a time prior to rest break. Pt sat on edge of mat completing x5 pipe tree diagrams, BUEs, focusing on core strength and sitting balance during task. OT tx. Pt placed x30 1" pegs into pegboard, alternating hands in order to increase fine motor strength and coordination. After 30 pegs, pt reports fatigue in fingers requesting another activity. Pt then removed beads from moderate resistance theraputty. Pt returned to pegboard task, completing x20 more pegs, (50 total). Pt used FWW to return to his room, CGA, transferring to EOB then supine. Post tx, pt in bed, call light in reach and all needs met, bed alarm activated. Education OT Patient Education: Correct positioning, Energy conservation, Modified ADL techniques, Progress toward Goal/Update tx plan, Purpose of tx/functional activities, Rehab process Teaching Recipient: Patient Teaching Methods: Discussion Response to Teaching: Verbalize Understanding OT Short Term Goals Short Term Goals Time Frame: August 23, 2021 Eatin Oral hygiene: 88 Toileting hygiene: 3 Shower/bathe self: 3 Upper body dressin Lower body dressin Putting on/taking off footwear: 3 OT Retirement Goals Retirement Goals Time Frame: September 04, 2021 Eating (QC): 6 Oral Hygiene (QC): 88 Toileting Hygiene (QC): 6 Shower/Bathe Self (QC): 5 Upper Body Dressing (QC): 5 Lower Body Dressing (QC): 5 On/Off Footwear (QC): 5 1=Demonstrate adherence to instructed precautions during ADL tasks. 2=Patient will verbalize/demonstrate understanding of assistive devices/modifications for ADL. 3=Patient will improve strength/tolerance for activity to enable patient to perform ADL's. OT Education/Plan Problem List/Assessment Assessment: Decreased Activ Tolerance, Decreased UE Strength, Impaired Funct Balance, Impaired I ADL's, Impaired Self-Care Skills Discharge Recommendations Plan/Recommendations: Continue POC Treatment Plan/Plan of Care Patient would benefit from OT for education, treatment and training to promote independence in ADL's, mobility, safety and/or upper extremity function for ADL's. Plan of Care: ADL Retraining, Functional Mobility, Group Exercise/Act as Ind, UE Funct Exercise/Act Treatment Duration: September 04, 2021 Frequency: At least 5 of 7 days/Wk (IRF) Estimated Hrs Per Day: 1.5 hours per day (60-90 min/day) Agreement: Yes Rehab Potential: Fair Time/GCodes Start Time: 09:00 Stop Time: 10:30 Total Time Billed (hr/min): 90 Billed Treatment Time cotreat x60', OT tx x30' 1, FA 6 ARLENE JULIO OT August 20, 2021 10:01
--- NOTE | 2021-08-20 13:29 | Physical Therapy Daily Note ---
PT Daily Note-Current Subjective Patient was in bed eating with when entering. Patient had no new complaints. Pain Numeric Pain Scale: 0-No Pain Mental Status Patient Orientation: Person, Place, Situation Transfers SCALE: Activities may be completed with or without assistive devices. 7-Fmmbwmoowc-hjqmida completes the activity by him/herself with no assistance from a helper. 5-Set-up or Clean-up Assistance-helper sets up or cleans up; patient completes activity. [place] assists only prior to or following the activity. 4-Supervision or Touching Assistance-helper provides verbal cues and/or touching/steadying and/or contact guard assistance as patient completes activity. Assistance may be provided throughout the activity or intermittently. 3-Partial/Moderate Assistance-helper does LESS THAN HALF the effort. [place] lifts, holds or supports trunk or limbs, but provides less than half the effort. 2-Substantial/Maximal Assistance-helper does MORE THAN HALF the effort. [place] lifts or holds trunk or limbs and provides more than half the effort. 3-Qahqhtubx-zzwtnx does ALL the effort. Patient does none of the effort to complete the activity. Or, the assistance of 2 or more helpers is required for the patient to complete the activity. If activity was not attempted, code reason: 7-Patient Refused. 9-Not Applicable-not attempted and the patient did not perform the activity before the current illness, exacerbation or injury. 10-Not Attempted due to Environmental Limitations-(lack of equipment, weather restraints, etc.). 88-Not Attempted due to Medical Conditions or Safety Concerns. Sit to Lying (QC): 4 Lying to Sitting/Side of Bed(Q: 4 Sit to Stand (QC): 4 Weight Bearing Right Lower Extremity: Right Full Weight Bearing Left Lower Extremity: Left Full Weight Bearing Gait Training Does the Patient Walk?: Yes Distance: 150'x2, 75' Walk 10 feet (QC): 4 Walk 50 ft with 2 Turns(QC): 4 Walk 150 ft (QC): 4 Gait Persons Needed: 1 Gait Assistive Device: FWW CGA with FWW. Step through pattern. Occasionally loses balance with turns. Exercises Standing: Marching, Side steps Standing Reps: 20 Treatments Ambulation, balance, LE strengthening Assessment Current Status: Fair Progress Patient performed well today. Was able to ambulate longer distance (150') before needing a rest break. patient fatigues quickly with LE exercises. PT Short Term Goals Short Term Goals Time Frame: August 21, 2021 Roll Left & Right: 6 Sit to lyin Lying to sitting on side of be: 6 Sit to stand: 4 (SBA) Chair/qvl-hf-balvd transfer: 6 Walk 10 feet: 4 (SBA) Walk 50 feet with two turns: 4 (SBA) Walk 150 feet: 4 (SBA) 4 steps: 4 (CGA) PT Prison Goals Prison Goals PT Visiting Nurse Goals Time Frame: September 04, 2021 Roll Left & Right (QC): 6 Sit to Lying (QC): 6 Lying-Sitting on Side/Bed(QC): 6 Sit to Stand (QC): 6 Chair/Tzw-ew-Igfed Xfer(QC): 6 Toilet Transfer (QC): 6 Car Transfer (QC): 6 Does the Patient Walk: Yes Walk 10 feet (QC): 6 Walk 50ft with 2 Turns (QC): 6 Walk 150 ft (QC): 6 Walking 10ft on Uneven Surface: 6 1 Step (curb) (QC): 6 4 Steps (QC): 4 (SBA) 12 Steps (QC): 4 (CGA) Picking up an Object (QC): 6 Does the Pt use WC or Scooter?: No Wheel 50 feet with 2 turns (QC: 9 Type: N/A Wheel 150 feet: 9 Type: N/A PT Plan Problem List Problem List: Activity Tolerance, Functional Strength, Safety, Balance, Gait, Transfer, Bed Mobility, ROM Treatment/Plan Treatment Plan: Continue Plan of Care Treatment Plan: Bed Mobility, Education, Functional Activity Rachelle, Functional Strength, Group Therapy, Gait, Safety, Therapeutic Exercise, Transfers Treatment Duration: September 04, 2021 Frequency: At least 5 of 7 days/Wk (IRF) Estimated Hrs Per Day: 1.5 hours per day Patient and/or Family Agrees t: Yes Safety Risks/Education Patient Education: Gait Training, Transfer Techniques, Correct Positioning, Safety Issues Teaching Recipient: Patient Teaching Methods: Discussion Response to Teaching: Verbalize Understanding, Return Demonstration Time/GCodes Time In: 1300 Time Out: 1330 Total Billed Treatment Time: 30 Total Billed Treatment 1 visit GT 22min EX 8min REED ROMAN PT August 20, 2021 13:29
[2021-08-20] MEDS ORDERED: LISI5TAB20 PO (13:48)
[2021-08-20] MEDS ORDERED: OMEG1CAP58 PO (13:53)
[2021-08-20] MEDS ORDERED: METO50TA7 PO (14:04)
[2021-08-20] MEDS: CALCIUM CARB + VIT D 600 MG (CALCARB + D) TAB PO SCH (16:19)
[2021-08-20 20:05] VITALS: BP 116/65
[2021-08-20] MEDS: ASPIRIN E.C. 81 MG (ECOTRIN) TAB PO SCH (20:11)
[2021-08-20] MEDS: ACETAMINOPHEN 325 MG TABLET PO PRN (20:11)
[2021-08-20] MEDS: doxAzosin 4 MG (CARDURA) TAB PO SCH (20:11)
[2021-08-20] MEDS: MAGNESIUM OXIDE (MAG-OX)400 MG TAB PO SCH (20:12)
--- NOTE | 2021-08-21 06:07 | PM&R Progress Note ---
Subjective HPI/CC On Admission Date Seen by Provider: August 21, 2021 Time Seen by Provider: 09:30 Subjective/Events-last exam 08/21/2021: Patient doing a lot better Eating better He may be able to recover after all If he continues to decline here will need usp Fever continues of unknown source 08/20/2021: Patient doing a little better today Talk to him about the need to increase nutrition Seems to be participating pretty well today I did update professor of social work regarding the need for possible skilled placement if he continues to decline 08/19/2021: Patient about the same today Apathy noted Refusing to eat and drink much at all Had a long conversation with about lack of motivation and cannot improve nutrition intake Told her if he fails inpatient rehab he will need care home placement Will talk to professor of social work tomorrow 08/18/2021: Patient doing a lot better Pain is controlled Fevers are defervescing Becoming more functional Checked meds and labs 08/17/2021: Fever still continues Holding laxatives due to some loose stools but then he says his bowels aren't moving He still continues to smoke, doesn't need a nicotine patch KPad will be used for leg pain Chest x-ray and UA were normal Fever is periodically occurring 08/16/2021: Pt had another fall this morning Septic work up initiated Chest x-ray and UA will be ordered On an alarm now to prevent impulsive behavior Had diarrhea yesterday but none today Had a lot of vertigo Fever is 101 Very complicated individual, will be on standby for any clinical status decline High risk for decompensation Review of Systems General: Fatigue, Malaise Musculoskeletal: back pain Neurological: Weakness, Incoordination Objective Exam Vital Signs Vital Signs Date Time Temp Pulse Resp B/P (MAP) Pulse Ox O2 Delivery O2 Flow Rate FiO2 08/21/21 22:22 36.4 08/21/21 20:20 Room Air 08/21/21 19:52 61 20 105/72 (83) 93 08/19/21 20:03 2.00 Capillary Refill : General Appearance: No Apparent Distress, WD/WN, Chronically ill HEENT: PERRL/EOMI, Normal ENT Inspection, Pharynx Normal Neck: Full Range of Motion, Normal Inspection, Non Tender, Supple, Carotid Bruit Respiratory: Chest Non Tender, Lungs Clear, Normal Breath Sounds, No Accessory Muscle Use, No Respiratory Distress Cardiovascular: Regular Rate, Rhythm, No Edema, No Gallop, No JVD, No Murmur, N ormal Peripheral Pulses Gastrointestinal: Normal Bowel Sounds, No Organomegaly, No Pulsatile Mass, Non Tender, Soft Back: Decreased Range of Motion, Muscle Spasm, Vertebral Tenderness Extremity: Normal Capillary Refill, Normal Inspection, Normal Range of Motion, Non Tender, No Calf Tenderness, No Pedal Edema Neurologic/Psychiatric: Alert, Oriented x3, No Motor/Sensory Deficits, Normal Mood/Affect, Abnormal Gait, Motor Weakness Skin: Normal Color, Warm/Dry Lymphatic: No Adenopathy Results/Procedures Lab Patient resulted labs reviewed. FIM Transfers Therapy Code Descriptions/Definitions Functional [place] Measure: 0=Not Assessed/NA 4=Minimal Assistance 1=Total Assistance 5=Supervision or Setup 2=Maximal Assistance 6=Modified [place] 3=Moderate Assistance 7=Complete IndependenceSCALE: Activities may be completed with or without assistive devices. 1-Zbnwsekvwq-pglqcwy completes the activity by him/herself with no assistance from a helper. 5-Set-up or Clean-up Assistance-helper sets up or cleans up; patient completes activity. [place] assists only prior to or following the activity. 4-Supervision or Touching Assistance-helper provides verbal cues and/or touching/steadying and/or contact guard assistance as patient completes activity. Assistance may be provided throughout the activity or intermittently. 3-Partial/Moderate Assistance-helper does LESS THAN HALF the effort. [place] lifts, holds or supports trunk or limbs, but provides less than half the effort. 2-Substantial/Maximal Assistance-helper does MORE THAN HALF the effort. [place] lifts or holds trunk or limbs and provides more than half the effort. 4-Bmauihqch-rvxlcd does ALL the effort. Patient does none of the effort to complete the activity. Or, the assistance of 2 or more helpers is required for the patient to complete the activity. If activity was not attempted, code reason: 7-Patient Refused. 9-Not Applicable-not attempted and the patient did not perform the activity before the current illness, exacerbation or injury. 10-Not Attempted due to Environmental Limitations-(lack of equipment, weather restraints, etc.). 88-Not Attempted due to Medical Conditions or Safety Concerns. Roll Left to Right (QC): 4 Sit to Lying (QC): 4 Sit to Stand (QC): 4 Chair/Jeu-yr-Xvqcl Xfer(QC): 4 (SBA) Car Transfer (QC): 4 (SBA) Gait Training Does the Patient Walk?: Yes Distance: 150'x2, 75' Walk 10 feet (QC): 4 Walk 50 ft with 2 Turns(QC): 4 Walk 150 ft (QC): 4 Walking 10ft/uneven surface-QC: 4 (CGA) Gait Persons Needed: 1 Gait Assistive Device: FWW Wheelchair Training Does the Pt Use a Wheelchair?: Yes Wheel 50 ft with 2 turns (QC): 5 Wheel 150 ft (QC): 5 Type of Wheelchair: Manual Stair Training #of Steps: 1 1 Step (curb) (QC): 4 (CGA) 4 Steps (QC): 88 12 Steps (QC): 88 Balance Picking up an Object (QC): 4 (CGA using access manager) ADL-Treatment Eating (QC): 4 Oral Hygiene (QC): 88 Shower/Bathe Self (QC): 2 (Max A sponge bath at bed level.) Upper Body Dressing (QC): 5 (set up with veneer puller shirt) Lower Body Dressing (QC): 4 (CGA, pt required verbal cues for back precautions) On/Off Footwear (QC): 1 (total assist gripper socks and TEDhose) Toileting Hygiene (QC): 4 (Pt able to manage clothes with CGA) Assessment/Plan Assessment and Plan Assess & Plan/Chief Complaint Assessment: 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 Hernández in depth 08/17/2021: Monitor fever Supportive care Pain control 08/18/2021: Supportive care Monitor fever 08/19/2021: Poor motivation Supportive care 08/20/2021: Supportive care Monitor closely May need skilled care 08/21/2021: Supportive care Monitor closely (1) Myopathy (2) CAD (coronary artery disease) ABIEL SAUNDERS DO August 21, 2021 06:07
[2021-08-21] MEDS: LEVOTHYROXINE 50 MCG (LEVOTHROID) TAB PO SCH (06:38)
[2021-08-21] MEDS: SUCRALFATE 1 GM (CARAFATE) TAB PO SCH ×4 (06:38→20:37)
[2021-08-21] MEDS: MULTIVIT W/MINERALS TAB (THERAGRAN M) PO SCH (06:38)
[2021-08-21 07:55] VITALS: BP 116/75
[2021-08-21] MEDS: RANOLAZINE ER 500 MG TAB (RANEXA) PO SCH ×2 (08:04→20:36)
[2021-08-21] MEDS: PANTOPRAZOLE 40 MG (PROTONIX) TAB PO SCH (08:04)
[2021-08-21] MEDS: ZINC SULFATE 220 MG CAPSULE PO SCH (08:04)
[2021-08-21] MEDS: polyethylene glycoL POWDER 17 GM (MIRALAX) PACK PO SCH ×2 (08:05→19:37)
[2021-08-21] MEDS: VITAMIN D3 25 MCG (1,000 UNITS) TABLET PO SCH (08:05)
[2021-08-21] MEDS: APIXABAN 5 MG (ELIQUIS) TABLET PO SCH ×2 (08:05→20:37)
[2021-08-21] MEDS: SENNA W/DOCUSATE (SENOKOT S) TABLET PO SCH ×2 (08:05→20:37)
[2021-08-21] MEDS: ALLOPURINOL 100 MG (ZYLOPRIM) TAB PO SCH ×2 (08:05→20:36)
[2021-08-21] MEDS: DRONEDARONE 400 MG TABLET PO SCH ×2 (08:05→20:36)
[2021-08-21] MEDS: DOCUSATE SODIUM 100 MG (COLACE) CAP PO SCH ×2 (08:05→20:37)
[2021-08-21] MEDS: MICONAZOLE 2% POWDER (DESENEX AF) 90 GM TOP SCH ×2 (08:06→20:39)
[2021-08-21] MEDS: MUPIROCIN 2% OINT 22 GM (BACTROBAN) TUBE TOP SCH ×2 (08:06→20:39)
--- NOTE | 2021-08-21 08:14 | Cardiology Progress Note ---
Subjective Date Seen by Provider: August 21, 2021 Time Seen by Provider: 08:12 Subjective/Events-last exam Patient is sitting up in chair, eating breakfast. Denies any chest pain Review of Systems General: No Chills, No Night Sweats; Fatigue, Malaise; No Appetite, No Other HEENT: No Head Aches, No Visual Changes, No Eye Pain, No Ear Pain, No Dysphasia, No Sinus Congestion, No Post Nasal Drip, No Sore Throat, No Other Pulmonary: No Dyspnea, No Cough, No Pleuritic Chest Pain, No Other Cardiovascular: No: Chest Pain, Palpitations, Orthopnea, Paroxysmal Noc. Dyspnea, Edema, Lt Headedness, Other Objective-Cardiology Exam Last Set of Vital Signs Vital Signs 08/19/21 08/21/21 20:03 07:55 Temp 36.8 Pulse 91 Resp 20 B/P (MAP) 116/75 (89) Pulse Ox 93 O2 Delivery Room Air O2 Flow Rate 2.00 General: Alert, Oriented X3, Cooperative HEENT: Atraumatic, PERRLA, Other (Complaint of neck pain) Neck: Supple, No JVD, No Thyromegaly Lungs: Clear to Auscultation, Normal Air Movement Heart: Regular Rate, Normal S1, Normal S2, No Murmurs Abdomen: Normal Bowel Sounds, Soft, No Tenderness, No Hepatosplenomegaly, No Masses Extremities: No Clubbing, No Cyanosis, No Edema, Normal Pulses, No Tenderness/Swelling Skin: No Rashes, No Breakdown, No Significant Lesion Neuro: Normal Gait, Normal Speech, Normal Tone, Sensation Intact, Other (We akness and numbness in the upper extremities) Psych/Mental Status: Mental Status NL, Mood NL A/P-Cardiology Admission Diagnosis CAD PAF CHF HTN Assessment/Plan S/p Lumbar spine surgery with Dr. Hernández at [facility] on 07/24/21. Had another procedure done 08/03/21 d/t post operative CSF leak. Having generalized debility/weakness, continue with PT Supraventricular tachycardia, paroxysmal atrial flutter with rapid ventricular response, first documented on February 13, 2018 underwent JIMY with cardioversion. S/p ablation with Dr. Martines on 03/16/18. Asymptomatic. Started on Multaq, will continue to monitor History of loop monitor implant, showing occasional episodes of atrial fibrillation, short episodes. Continue to monitor Chest pain, history of chronic stable angina, intolerant to NTG with severe headache, tolerating Ranexa, still having occasional recurrent chest pain. Will continue to monitor. Coronary artery disease, status post CABG x3 in 2001. Cardiac catheterization done April 2016 revealing a difficult anatomy was unable to evaluate left coronary system done within the show left heart catheterization. Patent vein graft to the diagonal artery and obtuse marginal branch artery. Occluded small RCA with collateral filling the distal right from the left system. Another angiogram done on April 18, 2016 revealing patent RODRIGUEZ to LAD. Patient did have severe stenosis of the ostium of the left subclavian artery. Underwent stenting to the left subclavian artery. Cardiac catheterization was carried out on February 21, 2021 after having an abnormal stress test which showed severe [place] coronary artery disease involving all his [place] arteries. The vein graft to the circumflex artery is occluded, the right coronary artery is a small artery that is not bypassed and not amendable to intervention, the vein graft to the diagonal artery is patent with good flow distally, the RODIRGUEZ to the LAD was not visualized due to the fact that the left subclavian stent was protruding in the aortic arch. Normal left ventricular function. CHF, chronic left ventricular systolic dysfunction, 2D echocardiogram was done on February 20, 2021 showing normal LV size, mild LVH, EF 50 to 55%, left atrium 4.1 cm, mild MR, mild AR, PA 30 to 35 mmHg. Continue to monitor Left subclavian artery stenosis-patient underwent left subclavian angiography with left subclavian balloon angioplasty and left subclavian stenting on 04/18/16 using Omnilink 08 stent 9 x 29 x 80 mm with lesion well covered in significant reduction in stenosis severity noted. There was 5-10 percent residue stenosis, however, there were a few stent struts protruding into the aortic arch. Maintained on Plavix and ASA. Continue to monitor Hypertension, labile hypertension, blood pressure medications discontinued d/t hypotension. Hyperlipidemia, lipid profile done on February 21, 2021 showing total cholesterol 147, triglyceride 137, HDL 46, LDL 77. Continue to monitor Constipation, started on stool softeners, prune juice Tobaccoism-educated on the importance of smoking cessation. Carotid artery stenosis-mild nonobstructive disease per carotid duplex done in April 2020, continue to monitor History of malignant melanoma, followed and managed by Dr. Nelson History of prostate cancer, followed and managed by Dr. Nelson. 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 Supervisory-Addendum Brief Supervisory Addendum Participated in pt care: history, MDM, physical Personally performed: exam, history, MDM Care discussed with: NATALY Results interpretation: Verified all documentation Notes: Patient was seen and evaluated with Yandy, examination performed, management plan was discussed, agree with the current scribed note, I made few changes to the note using Italic font Patient was seen at bedside, l sitting comfortably. Still having numbness in his hands, neck pain is better Denied any chest pain Continue to monitor blood pressure. No changes from cardiology standpoint YANDY HALE August 21, 2021 08:14 KAYLEY LAMBERT MD August 21, 2021 08:28
--- NOTE | 2021-08-21 11:12 | Occupational Ther Daily Note ---
OT Current Status-Daily Note Subjective Pt in bed, agreeable to OT Tx. Pt required encouragement to participate during session, and motivation throughout. Mental Status/Objective Patient Orientation: Normal For Age ADL-Treatment Therapy Code Descriptions/Definitions Functional [place] Measure: 0=Not Assessed/NA 4=Minimal Assistance 1=Total Assistance 5=Supervision or Setup 2=Maximal Assistance 6=Modified [place] 3=Moderate Assistance 7=Complete IndependenceSCALE: Activities may be completed with or without assistive devices. 7-Metoeayqrh-tjpqmhp completes the activity by him/herself with no assistance from a helper. 5-Set-up or Clean-up Assistance-helper sets up or cleans up; patient completes activity. [place] assists only prior to or following the activity. 4-Supervision or Touching Assistance-helper provides verbal cues and/or touching/steadying and/or contact guard assistance as patient completes activity. Assistance may be provided throughout the activity or intermittently. 3-Partial/Moderate Assistance-helper does LESS THAN HALF the effort. [place] lifts, holds or supports trunk or limbs, but provides less than half the effort. 2-Substantial/Maximal Assistance-helper does MORE THAN HALF the effort. [place] lifts or holds trunk or limbs and provides more than half the effort. 3-Bflbgsfxh-sgxkgo does ALL the effort. Patient does none of the effort to complete the activity. Or, the assistance of 2 or more helpers is required for the patient to complete the activity. If activity was not attempted, code reason: 7-Patient Refused. 9-Not Applicable-not attempted and the patient did not perform the activity before the current illness, exacerbation or injury. 10-Not Attempted due to Environmental Limitations-(lack of equipment, weather restraints, etc.). 88-Not Attempted due to Medical Conditions or Safety Concerns. Eating (QC): 6 Shower/Bathe Self (QC): 4 (SBA for back precautions) Upper Body Dressing (QC): 5 Lower Body Dressing (QC): 4 (SBA for back precautions) On/Off Footwear: 4 (SBA for back precautions) Toileting Hygiene (QC): 4 (SBA) Toilet Transfer (QC): 4 (SBA) Pt required increased time and motivation for all tasks. Other Treatment Pt in bed, transferred supine to sit EOB independently. Pt used FWW to transfer into bathroom and onto toilet, SBA. Pt completed toileting, required increased time to have bowel movement. Pt doffed clothes, transferred to SC, then completed shower. Pt donned clothes, then PT present for PT tx, all needs met. Education OT Patient Education: Correct positioning, Energy conservation, Modified ADL techniques, Progress toward Goal/Update tx plan, Purpose of tx/functional activities Teaching Recipient: Patient Teaching Methods: Discussion Response to Teaching: Verbalize Understanding, Reinforcement Needed OT Short Term Goals Short Term Goals Time Frame: August 23, 2021 Eatin Oral hygiene: 88 Toileting hygiene: 3 Shower/bathe self: 3 Upper body dressin Lower body dressin Putting on/taking off footwear: 3 OT Retirement Goals Physical Medicine Specialist Goals Time Frame: September 04, 2021 Eating (QC): 6 Oral Hygiene (QC): 88 Toileting Hygiene (QC): 6 Shower/Bathe Self (QC): 5 Upper Body Dressing (QC): 5 Lower Body Dressing (QC): 5 On/Off Footwear (QC): 5 1=Demonstrate adherence to instructed precautions during ADL tasks. 2=Patient will verbalize/demonstrate understanding of assistive devices/modifications for ADL. 3=Patient will improve strength/tolerance for activity to enable patient to perform ADL's. OT Education/Plan Problem List/Assessment Assessment: Decreased Activ Tolerance, Decreased Safety Aware, Decreased UE Strength, Impaired Funct Balance, Impaired I ADL's, Impaired Self-Care Skills Discharge Recommendations Plan/Recommendations: Continue POC Treatment Plan/Plan of Care Patient would benefit from OT for education, treatment and training to promote independence in ADL's, mobility, safety and/or upper extremity function for ADL's. Plan of Care: ADL Retraining, Functional Mobility, Group Exercise/Act as Ind, UE Funct Exercise/Act Treatment Duration: September 04, 2021 Frequency: At least 5 of 7 days/Wk (IRF) Estimated Hrs Per Day: 1.5 hours per day (60-90 min/day) Agreement: Yes Rehab Potential: Fair Time/GCodes Start Time: 09:30 Stop Time: 11:00 Total Time Billed (hr/min): 90 Billed Treatment Time 1, ADL 6 ARLENE JULIO OT August 21, 2021 11:12
--- NOTE | 2021-08-21 11:57 | Physical Therapy Daily Note ---
PT Daily Note-Current Subjective Patient had just finished showering with OT upon entering. OT informed us that it took extensive time for bathing, and that he was super exhausted. Patient states he was really fatigued and had pain especially near his hip. Pain Numeric Pain Scale: 5-Moderate Pain Location: Posterior, Left Location Body Site: Hip Mental Status Patient Orientation: Person, Place, Situation Transfers SCALE: Activities may be completed with or without assistive devices. 1-Wvlpwviijf-uccjziz completes the activity by him/herself with no assistance from a helper. 5-Set-up or Clean-up Assistance-helper sets up or cleans up; patient completes activity. [place] assists only prior to or following the activity. 4-Supervision or Touching Assistance-helper provides verbal cues and/or touching/steadying and/or contact guard assistance as patient completes activity. Assistance may be provided throughout the activity or intermittently. 3-Partial/Moderate Assistance-helper does LESS THAN HALF the effort. [place] lifts, holds or supports trunk or limbs, but provides less than half the effort. 2-Substantial/Maximal Assistance-helper does MORE THAN HALF the effort. [place] lifts or holds trunk or limbs and provides more than half the effort. 8-Ekkpejkwt-vnlqzq does ALL the effort. Patient does none of the effort to complete the activity. Or, the assistance of 2 or more helpers is required for the patient to complete the activity. If activity was not attempted, code reason: 7-Patient Refused. 9-Not Applicable-not attempted and the patient did not perform the activity before the current illness, exacerbation or injury. 10-Not Attempted due to Environmental Limitations-(lack of equipment, weather restraints, etc.). 88-Not Attempted due to Medical Conditions or Safety Concerns. Sit to Lying (QC): 4 Lying to Sitting/Side of Bed(Q: 4 Sit to Stand (QC): 4 Weight Bearing Right Lower Extremity: Right Full Weight Bearing Left Lower Extremity: Left Full Weight Bearing Gait Training Distance: 100', 150', 200' Walk 10 feet (QC): 4 Walk 50 ft with 2 Turns(QC): 4 Walk 150 ft (QC): 4 Gait Persons Needed: 1 Gait Assistive Device: FWW R knee tends to hyperextend. Had an episode of knee buckling, patient states that usually happens and he can catch himself. Normal step-through pattern. Bears lots of weight through arms. Wheelchair Training Does the Pt Use a Wheelchair?: No Exercises Supine Ex: Ankle pumps (30), Heel Slides (30), Short Arc Quads (20), Hip abd/add (30. knees bent with red band for ABD, squeeze red ball for ADD) Seated Therapy Exercises: Long arc quads Seated Reps: 40 Assessment Current Status: Fair Progress Patient was very fatigued and complained of discomfort during supine exercies, and needed lots of rest breaks between sets. Patient had some difficulty with interpreting simple directions for exercises at times. He received a pain pill during tx. Patients fatigue improved throughout session and was able to ambulate moderately long distances, but still needed a couple seated rest breaks. Patient is mostly compliant with precautions. He was left in bed with call light, bed alarm, tray, and all needs met. PT Short Term Goals Short Term Goals Time Frame: August 21, 2021 Roll Left & Right: 6 Sit to lyin Lying to sitting on side of be: 6 Sit to stand: 4 (SBA) Chair/etf-gl-oyrnk transfer: 6 Walk 10 feet: 4 (SBA) Walk 50 feet with two turns: 4 (SBA) Walk 150 feet: 4 (SBA) 4 steps: 4 (CGA) PT Waterworks Supervisor Goals Waterworks Supervisor Goals PT Waterworks Supervisor Goals Time Frame: September 04, 2021 Roll Left & Right (QC): 6 Sit to Lying (QC): 6 Lying-Sitting on Side/Bed(QC): 6 Sit to Stand (QC): 6 Chair/Ari-vi-Qrcyq Xfer(QC): 6 Toilet Transfer (QC): 6 Car Transfer (QC): 6 Does the Patient Walk: Yes Walk 10 feet (QC): 6 Walk 50ft with 2 Turns (QC): 6 Walk 150 ft (QC): 6 Walking 10ft on Uneven Surface: 6 1 Step (curb) (QC): 6 4 Steps (QC): 4 (SBA) 12 Steps (QC): 4 (CGA) Picking up an Object (QC): 6 Does the Pt use WC or Scooter?: No Wheel 50 feet with 2 turns (QC: 9 Type: N/A Wheel 150 feet: 9 Type: N/A PT Plan Problem List Problem List: Activity Tolerance, Functional Strength, Safety, Balance, Gait, Transfer, Bed Mobility, ROM Treatment/Plan Treatment Plan: Continue Plan of Care Treatment Plan: Bed Mobility, Education, Functional Activity Rachelle, Functional Strength, Group Therapy, Gait, Safety, Therapeutic Exercise, Transfers Treatment Duration: September 04, 2021 Frequency: At least 5 of 7 days/Wk (IRF) Estimated Hrs Per Day: 1.5 hours per day Patient and/or Family Agrees t: Yes Safety Risks/Education Patient Education: Gait Training, Transfer Techniques, Reviewed Precautions, Correct Positioning, Safety Issues Teaching Recipient: Patient Teaching Methods: Demonstration, Discussion Response to Teaching: Verbalize Understanding, Reinforcement Needed Time/GCodes Time In: 1100 Time Out: 1200 Total Billed Treatment Time: 60 Total Billed Treatment 1 visit EX 45min FA 15min REED ROMAN PT August 21, 2021 11:56
--- NOTE | 2021-08-21 14:32 | Physical Therapy Daily Note ---
PT Daily Note-Current Subjective Patient was in bed upon entering. Patient still complains of dizziness, but did not complain of pain or fatigue Pain Location: No Pain Reported Mental Status Patient Orientation: Person, Place, Situation Transfers SCALE: Activities may be completed with or without assistive devices. 4-Cnshsadhqb-gbkkkzl completes the activity by him/herself with no assistance from a helper. 5-Set-up or Clean-up Assistance-helper sets up or cleans up; patient completes activity. [place] assists only prior to or following the activity. 4-Supervision or Touching Assistance-helper provides verbal cues and/or touching/steadying and/or contact guard assistance as patient completes activity. Assistance may be provided throughout the activity or intermittently. 3-Partial/Moderate Assistance-helper does LESS THAN HALF the effort. [place] lifts, holds or supports trunk or limbs, but provides less than half the effort. 2-Substantial/Maximal Assistance-helper does MORE THAN HALF the effort. [place] lifts or holds trunk or limbs and provides more than half the effort. 5-Sksqicmtp-ajmjzm does ALL the effort. Patient does none of the effort to complete the activity. Or, the assistance of 2 or more helpers is required for the patient to complete the activity. If activity was not attempted, code reason: 7-Patient Refused. 9-Not Applicable-not attempted and the patient did not perform the activity before the current illness, exacerbation or injury. 10-Not Attempted due to Environmental Limitations-(lack of equipment, weather restraints, etc.). 88-Not Attempted due to Medical Conditions or Safety Concerns. Sit to Stand (QC): 4 Weight Bearing Right Lower Extremity: Right Full Weight Bearing Left Lower Extremity: Left Full Weight Bearing Gait Training Distance: 200'x2, 80' Walk 10 feet (QC): 4 Walk 50 ft with 2 Turns(QC): 4 Walk 150 ft (QC): 4 Gait Assistive Device: FWW Recipricol gait pattern. Tendency of R knee to hyperextend Exercises Standing: Sit to Stand Standing Reps: 16 Treatments LE strengthening, ambulation Assessment Current Status: Fair Progress Patient performed well today, and was able to tolerate more exercises. Patient ambulated 200ft before needing a rest break. Patient showed improved strength with sit to stand exercises. He was left in bed with call light, tray, and all needs met. PT Short Term Goals Short Term Goals Time Frame: August 21, 2021 Roll Left & Right: 6 Sit to lyin Lying to sitting on side of be: 6 Sit to stand: 4 (SBA) Chair/dnu-zp-hklaz transfer: 6 Walk 10 feet: 4 (SBA) Walk 50 feet with two turns: 4 (SBA) Walk 150 feet: 4 (SBA) 4 steps: 4 (CGA) PT Half-Way Goals Half-Way Goals PT Mild Disabilities Teacher Goals Time Frame: September 04, 2021 Roll Left & Right (QC): 6 Sit to Lying (QC): 6 Lying-Sitting on Side/Bed(QC): 6 Sit to Stand (QC): 6 Chair/Awe-bv-Grywd Xfer(QC): 6 Toilet Transfer (QC): 6 Car Transfer (QC): 6 Does the Patient Walk: Yes Walk 10 feet (QC): 6 Walk 50ft with 2 Turns (QC): 6 Walk 150 ft (QC): 6 Walking 10ft on Uneven Surface: 6 1 Step (curb) (QC): 6 4 Steps (QC): 4 (SBA) 12 Steps (QC): 4 (CGA) Picking up an Object (QC): 6 Does the Pt use WC or Scooter?: No Wheel 50 feet with 2 turns (QC: 9 Type: N/A Wheel 150 feet: 9 Type: N/A PT Plan Problem List Problem List: Activity Tolerance, Functional Strength, Safety, Balance, Gait, Transfer, Bed Mobility, ROM Treatment/Plan Treatment Plan: Continue Plan of Care Treatment Plan: Bed Mobility, Education, Functional Activity Rachelle, Functional Strength, Group Therapy, Gait, Safety, Therapeutic Exercise, Transfers Treatment Duration: September 04, 2021 Frequency: At least 5 of 7 days/Wk (IRF) Estimated Hrs Per Day: 1.5 hours per day Patient and/or Family Agrees t: Yes Safety Risks/Education Patient Education: Gait Training, Transfer Techniques, Reviewed Precautions, C orrect Positioning, Safety Issues Teaching Recipient: Patient Teaching Methods: Discussion Response to Teaching: Verbalize Understanding Time/GCodes Time In: 1400 Time Out: 1430 Total Billed Treatment Time: 30 Total Billed Treatment 1 visit FA 30min REED ROMAN PT August 21, 2021 14:31
[2021-08-21] MEDS: CALCIUM CARB + VIT D 600 MG (CALCARB + D) TAB PO SCH (16:51)
[2021-08-21 19:52] VITALS: BP 105/72
[2021-08-21] MEDS: MAGNESIUM OXIDE (MAG-OX)400 MG TAB PO SCH (20:36)
[2021-08-21] MEDS: ASPIRIN E.C. 81 MG (ECOTRIN) TAB PO SCH (20:37)
[2021-08-21] MEDS: ACETAMINOPHEN 325 MG TABLET PO PRN (20:37)
[2021-08-21] MEDS: doxAzosin 4 MG (CARDURA) TAB PO SCH (20:37)
--- NOTE | 2021-08-22 06:10 | PM&R Progress Note ---
Subjective HPI/CC On Admission Date Seen by Provider: August 22, 2021 Time Seen by Provider: 09:30 Subjective/Events-last exam 08/22/21: Pt is doing very well Moving around okay Discharge planned for Friday Bowels are moving Taking his pills 08/21/2021: Patient doing a lot better Eating better He may be able to recover after all If he continues to decline here will need snf Fever continues of unknown source 08/20/2021: Patient doing a little better today Talk to him about the need to increase nutrition Seems to be participating pretty well today I did update social media marketer regarding the need for possible skilled placement if he continues to decline 08/19/2021: Patient about the same today Apathy noted Refusing to eat and drink much at all Had a long conversation with about lack of motivation and cannot improve nutrition intake Told her if he fails inpatient rehab he will need senior care placement Will talk to social media marketer tomorrow 08/18/2021: Patient doing a lot better Pain is controlled Fevers are defervescing Becoming more functional Checked meds and labs 08/17/2021: Fever still continues Holding laxatives due to some loose stools but then he says his bowels aren't moving He still continues to smoke, doesn't need a nicotine patch KPad will be used for leg pain Chest x-ray and UA were normal Fever is periodically occurring 08/16/2021: Pt had another fall this morning Septic work up initiated Chest x-ray and UA will be ordered On an alarm now to prevent impulsive behavior Had diarrhea yesterday but none today Had a lot of vertigo Fever is 101 Very complicated individual, will be on standby for any clinical status decline High risk for decompensation Review of Systems General: Fatigue, Malaise Objective Exam Vital Signs Vital Signs Date Time Temp Pulse Resp B/P (MAP) Pulse Ox O2 Delivery O2 Flow Rate FiO2 08/22/21 21:30 37.2 08/22/21 20:30 96 Nasal Cannula 2.00 08/22/21 20:30 92 20 100/59 (73) Capillary Refill : General Appearance: No Apparent Distress, WD/WN, Chronically ill HEENT: PERRL/EOMI, Normal ENT Inspection, Pharynx Normal Neck: Full Range of Motion, Normal Inspection, Non Tender, Supple, Carotid Bruit Respiratory: Chest Non Tender, Lungs Clear, Normal Breath Sounds, No Accessory Muscle Use, No Respiratory Distress Cardiovascular: Regular Rate, Rhythm, No Edema, No Gallop, No JVD, No Murmur, Normal Peripheral Pulses Gastrointestinal: Normal Bowel Sounds, No Organomegaly, No Pulsatile Mass, Non Tender, Soft Back: Decreased Range of Motion, Muscle Spasm, Vertebral Tenderness Extremity: Normal Capillary Refill, Normal Inspection, Normal Range of Motion, Non Tender, No Calf Tenderness, No Pedal Edema Neurologic/Psychiatric: Alert, Oriented x3, No Motor/Sensory Deficits, Normal Mood/Affect, Abnormal Gait, Motor Weakness Skin: Normal Color, Warm/Dry Lymphatic: No Adenopathy Results/Procedures Lab Patient resulted labs reviewed. FIM Transfers Therapy Code Descriptions/Definitions Functional [place] Measure: 0=Not Assessed/NA 4=Minimal Assistance 1=Total Assistance 5=Supervision or Setup 2=Maximal Assistance 6=Modified [place] 3=Moderate Assistance 7=Complete IndependenceSCALE: Activities may be completed with or without assistive devices. 0-Xvmrwyyxxw-bolusrf completes the activity by him/herself with no assistance from a helper. 5-Set-up or Clean-up Assistance-helper sets up or cleans up; patient completes activity. [place] assists only prior to or following the activity. 4-Supervision or Touching Assistance-helper provides verbal cues and/or touching/steadying and/or contact guard assistance as patient completes act ivity. Assistance may be provided throughout the activity or intermittently. 3-Partial/Moderate Assistance-helper does LESS THAN HALF the effort. [place] lifts, holds or supports trunk or limbs, but provides less than half the effort. 2-Substantial/Maximal Assistance-helper does MORE THAN HALF the effort. [place] lifts or holds trunk or limbs and provides more than half the effort. 0-Gulwedvvu-itxzsz does ALL the effort. Patient does none of the effort to complete the activity. Or, the assistance of 2 or more helpers is required for the patient to complete the activity. If activity was not attempted, code reason: 7-Patient Refused. 9-Not Applicable-not attempted and the patient did not perform the activity before the current illness, exacerbation or injury. 10-Not Attempted due to Environmental Limitations-(lack of equipment, weather restraints, etc.). 88-Not Attempted due to Medical Conditions or Safety Concerns. Roll Left to Right (QC): 4 Sit to Lying (QC): 4 Sit to Stand (QC): 4 Chair/Kiv-vj-Qrtri Xfer(QC): 4 (SBA) Car Transfer (QC): 4 (SBA) Gait Training Does the Patient Walk?: Yes Distance: 200'x2, 80' Walk 10 feet (QC): 4 Walk 50 ft with 2 Turns(QC): 4 Walk 150 ft (QC): 4 Walking 10ft/uneven surface-QC: 4 (CGA) Gait Persons Needed: 1 Gait Assistive Device: FWW Wheelchair Training Does the Pt Use a Wheelchair?: No Wheel 50 ft with 2 turns (QC): 5 Wheel 150 ft (QC): 5 Type of Wheelchair: Manual Stair Training #of Steps: 1 1 Step (curb) (QC): 4 (CGA) 4 Steps (QC): 88 12 Steps (QC): 88 Balance Picking up an Object (QC): 4 (CGA using automotive brake adjuster) ADL-Treatment Eating (QC): 6 Oral Hygiene (QC): 88 Shower/Bathe Self (QC): 4 (SBA for back precautions) Upper Body Dressing (QC): 5 Lower Body Dressing (QC): 4 (SBA for back precautions) On/Off Footwear (QC): 4 (SBA for back precautions) Toileting Hygiene (QC): 4 (SBA) Toilet Transfer (QC): 4 (SBA) Assessment/Plan Assessment and Plan Assess & Plan/Chief Complaint Assessment: 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 Hernández in depth 08/17/2021: Monitor fever Supportive care Pain control 08/18/2021: Supportive care Monitor fever 08/19/2021: Poor motivation Supportive care 08/20/2021: Supportive care Monitor closely May need skilled care 08/21/2021: Supportive care Monitor closely 08/22/21: Monitor fever Improved (1) Myopathy (2) CAD (coronary artery disease) ABIEL SAUNDERS DO August 22, 2021 06:10
[2021-08-22] MEDS: SUCRALFATE 1 GM (CARAFATE) TAB PO SCH ×4 (06:19→20:35)
[2021-08-22] MEDS: MULTIVIT W/MINERALS TAB (THERAGRAN M) PO SCH (06:19)
[2021-08-22] MEDS: LEVOTHYROXINE 50 MCG (LEVOTHROID) TAB PO SCH (06:19)
[2021-08-22 07:31] VITALS: BP 126/60
--- NOTE | 2021-08-22 09:16 | Cardiology Progress Note ---
Subjective Date Seen by Provider: August 22, 2021 Time Seen by Provider: 08:30 Subjective/Events-last exam Patient is sitting up at bedside, no new complaints. Review of Systems General: No Chills, No Night Sweats, No Fatigue, No Malaise, No Appetite, No Other HEENT: No Head Aches, No Visual Changes, No Eye Pain, No Ear Pain, No Dysphasia, No Sinus Congestion, No Post Nasal Drip, No Sore Throat, No Other Pulmonary: Dyspnea; No Cough, No Pleuritic Chest Pain, No Other Cardiovascular: Edema; No: Chest Pain, Palpitations, Orthopnea, Paroxysmal Noc. Dyspnea, Lt Headedness, Other Objective-Cardiology Exam Last Set of Vital Signs Vital Signs 08/22/21 08/22/21 07:31 08:11 Temp 36.1 Pulse 75 Resp 18 B/P (MAP) 126/60 (82) Pulse Ox 94 O2 Delivery Room Air O2 Flow Rate 0.00 General: Alert, Oriented X3, Cooperative HEENT: Atraumatic, PERRLA, Other (Complaint of neck pain) Neck: Supple, No JVD, No Thyromegaly Lungs: Clear to Auscultation, Normal Air Movement Heart: Regular Rate, Normal S1, Normal S2, No Murmurs Abdomen: Normal Bowel Sounds, Soft, No Tenderness, No Hepatosplenomegaly, No Masses Extremities: No Clubbing, No Cyanosis, No Edema, Normal Pulses, No Tenderness/Swelling Skin: No Rashes, No Breakdown, No Significant Lesion Neuro: Normal Gait, Normal Speech, Normal Tone, Sensation Intact, Other (Weakness and numbness in the upper extremities) Psych/Mental Status: Mental Status NL, Mood NL A/P-Cardiology Admission Diagnosis CAD PAF CHF HTN Assessment/Plan S/p Lumbar spine surgery with Dr. Hernández at [facility] on 07/24/21. Had another procedure done 08/03/21 d/t post operative CSF leak. Having generalized debility/weakness, continue with PT Supraventricular tachycardia, paroxysmal atrial flutter with rapid ventricular response, first documented on February 13, 2018 underwent JIMY with cardioversion. S/p ablation with Dr. Martines on 03/16/18. Asymptomatic. Started on Multaq, will continue to monitor History of loop monitor implant, showing occasional episodes of atrial fibrillation, short episodes. Continue to monitor Chest pain, history of chronic stable angina, intolerant to NTG with severe headache, tolerating Ranexa, still having occasional recurrent chest pain. Will continue to monitor. Coronary artery disease, status post CABG x3 in 2001. Cardiac catheterization done April 2016 revealing a difficult anatomy was unable to evaluate left coronary system done within the show left heart catheterization. Patent vein graft to the diagonal artery and obtuse marginal branch artery. Occluded small RCA with collateral filling the distal right from the left system. Another angiogram done on April 18, 2016 revealing patent RODRIGUEZ to LAD. Patient did have severe stenosis of the ostium of the left subclavian artery. Underwent stenting to the left subclavian artery. Cardiac catheterization was carried out on February 21, 2021 after having an abnormal stress test which showed severe [place] coronary artery disease involving all his [place] arteries. The vein graft to the circumflex artery is occluded, the right coronary artery is a small artery that is not bypassed and not amendable to intervention, the vein graft to the diagonal artery is patent with good flow distally, the RODRIGUEZ to the LAD was not visualized due to the fact that the left subclavian stent was protruding in the aortic arch. Normal left ventricular function. CHF, chronic left ventricular systolic dysfunction, 2D echocardiogram was done on February 20, 2021 showing normal LV size, mild LVH, EF 50 to 55%, left atrium 4.1 cm, mild MR, mild AR, PA 30 to 35 mmHg. Continue to monitor Left subclavian artery stenosis-patient underwent left subclavian angiography with left subclavian balloon angioplasty and left subclavian stenting on 04/18/16 using Omnilink 08 stent 9 x 29 x 80 mm with lesion well covered in significant reduction in stenosis severity noted. There was 5-10 percent residue stenosis, however, there were a few stent struts protruding into the aortic arch. Maintained on Plavix and ASA. Continue to monitor Hypertension, labile hypertension, blood pressure medications discontinued d/t hypotension. Hyperlipidemia, lipid profile done on February 21, 2021 showing total choles terol 147, triglyceride 137, HDL 46, LDL 77. Continue to monitor Constipation, started on stool softeners, prune juice Tobaccoism-educated on the importance of smoking cessation. Carotid artery stenosis-mild nonobstructive disease per carotid duplex done in April 2020, continue to monitor History of malignant melanoma, followed and managed by Dr. Nelson History of prostate cancer, followed and managed by Dr. Nelson. 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 Supervisory-Addendum Brief Supervisory Addendum Participated in pt care: history, MDM, physical Personally performed: exam, history, MDM Care discussed with: NATALY Results interpretation: Verified all documentation Notes: Patient was seen and evaluated with Yandy, examination performed, management plan was discussed, agree with the current scribed note, I made few changes to the note using Italic font Patient was seen at bedside laying down comfortably, denied any chest pain. No palpitation. Still having neck pain and numbness in his arms Heart rate and blood pressure are stable Continue to monitor YANDY HALE August 22, 2021 09:16 KAYLEY LAMBERT MD August 22, 2021 13:26
[2021-08-22] MEDS: RANOLAZINE ER 500 MG TAB (RANEXA) PO SCH ×2 (09:25→20:35)
[2021-08-22] MEDS: APIXABAN 5 MG (ELIQUIS) TABLET PO SCH ×2 (09:26→20:35)
[2021-08-22] MEDS: PANTOPRAZOLE 40 MG (PROTONIX) TAB PO SCH (09:26)
[2021-08-22] MEDS: SENNA W/DOCUSATE (SENOKOT S) TABLET PO SCH ×2 (09:26→20:35)
[2021-08-22] MEDS: ZINC SULFATE 220 MG CAPSULE PO SCH (09:26)
[2021-08-22] MEDS: VITAMIN D3 25 MCG (1,000 UNITS) TABLET PO SCH (09:26)
[2021-08-22] MEDS: DOCUSATE SODIUM 100 MG (COLACE) CAP PO SCH ×2 (09:26→20:35)
[2021-08-22] MEDS: DRONEDARONE 400 MG TABLET PO SCH ×2 (09:26→20:35)
[2021-08-22] MEDS: MICONAZOLE 2% POWDER (DESENEX AF) 90 GM TOP SCH ×2 (09:27→20:35)
[2021-08-22] MEDS: MUPIROCIN 2% OINT 22 GM (BACTROBAN) TUBE TOP SCH ×2 (09:27→20:35)
[2021-08-22] MEDS: ALLOPURINOL 100 MG (ZYLOPRIM) TAB PO SCH ×2 (09:27→20:35)
[2021-08-22] MEDS: polyethylene glycoL POWDER 17 GM (MIRALAX) PACK PO SCH ×2 (09:39→20:35)
--- NOTE | 2021-08-22 09:54 | Occupational Ther Daily Note ---
OT Current Status-Daily Note Subjective Pt in bed, agreeable to OT Tx. Pt required motivation throughout tx to participate Mental Status/Objective Patient Orientation: Normal For Age ADL-Treatment Therapy Code Descriptions/Definitions Functional [place] Measure: 0=Not Assessed/NA 4=Minimal Assistance 1=Total Assistance 5=Supervision or Setup 2=Maximal Assistance 6=Modified [place] 3=Moderate Assistance 7=Complete IndependenceSCALE: Activities may be completed with or without assistive devices. 6-Chzwozzfgd-clqhzgn completes the activity by him/herself with no assistance fr om a helper. 5-Set-up or Clean-up Assistance-helper sets up or cleans up; patient completes activity. [place] assists only prior to or following the activity. 4-Supervision or Touching Assistance-helper provides verbal cues and/or touching/steadying and/or contact guard assistance as patient completes activity. Assistance may be provided throughout the activity or intermittently. 3-Partial/Moderate Assistance-helper does LESS THAN HALF the effort. [place] lifts, holds or supports trunk or limbs, but provides less than half the effort. 2-Substantial/Maximal Assistance-helper does MORE THAN HALF the effort. [place] lifts or holds trunk or limbs and provides more than half the effort. 5-Ljlwiviyp-ahraqp does ALL the effort. Patient does none of the effort to complete the activity. Or, the assistance of 2 or more helpers is required for the patient to complete the activity. If activity was not attempted, code reason: 7-Patient Refused. 9-Not Applicable-not attempted and the patient did not perform the activity before the current illness, exacerbation or injury. 10-Not Attempted due to Environmental Limitations-(lack of equipment, weather restraints, etc.). 88-Not Attempted due to Medical Conditions or Safety Concerns. Lower Body Dressing (QC): 4 (SBA) Other Treatment Pt in bed, agreeable to OT tx. Pt's nurse present to provide medications. Pt transferred supine to sit EOB, independently. Pt able to take medication provided, set up assistance of placing pills in pt's hands, he was then able to take himself. Pt had difficulty with picking pills up from bed when they dropped to his hand. Pt c/o numbness in fingertips causing decreased coordination. OT gathered pt's pants, he required encouragement to don his pants in order to leave his room. Pt used FWW to perform functional mobility to therapy gym. OT tx focused on increasing BUE fine motor strength and coordination. Pt removed beads from moderate resistance (red) theraputty. Pt able to locate all beads, but k nocked over the container they were in a couple of times due to decreased sensation in fingertips, he felt like this task was easier than last time. Pt then placed/removed 1" pegs into pegboard, alternating hands. Pt completed x100 pegs, alternating hands. Pt then completed heavier resistance theraputty task, removing beads from green putty. Pt states this putty is more challenging, and wore his fingers out. Pt used FWW to return to his room, SBA, transferring to recliner. Post tx, pt in recliner, call light in reach and all needs met, chair alarm activated. Pt required increased time throughout entire session, and motivation/enco uragement to continue with tx. Education OT Patient Education: Correct positioning, Energy conservation, Exercise program, Modified ADL techniques, Progress toward Goal/Update tx plan, Purpose of tx/functional activities, Rehab process Teaching Recipient: Patient Teaching Methods: Discussion Response to Teaching: Reinforcement Needed OT Short Term Goals Short Term Goals Time Frame: August 23, 2021 Eatin Oral hygiene: 88 Toileting hygiene: 3 Shower/bathe self: 3 Upper body dressin Lower body dressin Putting on/taking off footwear: 3 OT Asphalt Patcher Goals Asphalt Patcher Goals Time Frame: September 04, 2021 Eating (QC): 6 Oral Hygiene (QC): 88 Toileting Hygiene (QC): 6 Shower/Bathe Self (QC): 5 Upper Body Dressing (QC): 5 Lower Body Dressing (QC): 5 On/Off Footwear (QC): 5 1=Demonstrate adherence to instructed precautions during ADL tasks. 2=Patient will verbalize/demonstrate understanding of assistive devices/modifications for ADL. 3=Patient will improve strength/tolerance for activity to enable patient to perform ADL's. OT Education/Plan Problem List/Assessment Assessment: Decreased Activ Tolerance, Decreased UE Strength, Impaired Coordination, Impaired Funct Balance, Impaired I ADL's, Impaired Self-Care Skills, Restricted Funct UE ROM Discharge Recommendations Plan/Recommendations: Continue POC Treatment Plan/Plan of Care Patient would benefit from OT for education, treatment and training to promote independence in ADL's, mobility, safety and/or upper extremity function for ADL's. Plan of Care: ADL Retraining, Functional Mobility, Group Exercise/Act as Ind, UE Funct Exercise/Act Treatment Duration: September 04, 2021 Frequency: At least 5 of 7 days/Wk (IRF) Estimated Hrs Per Day: 1.5 hours per day (60-90 min/day) Agreement: Yes Rehab Potential: Fair Time/GCodes Start Time: 09:15 Stop Time: 10:45 Total Time Billed (hr/min): 90 Billed Treatment Time 1, ADL 2 (30'), FA 4 (60') ARLENE JULIO OT August 22, 2021 09:54
--- NOTE | 2021-08-22 12:01 | Physical Therapy Daily Note ---
PT Daily Note-Current Subjective Upon arrival, pt was laying in bed. Pt agrees to PT. Pain Comment: Pt reports no pain, but is sore in hip area. Mental Status Patient Orientation: Person, Place, Time, Situation Transfers SCALE: Activities may be completed with or without assistive devices. 1-Fgbiohxlqz-hgqgtzd completes the activity by him/herself with no assistance from a helper. 5-Set-up or Clean-up Assistance-helper sets up or cleans up; patient completes activity. [place] assists only prior to or following the activity. 4-Supervision or Touching Assistance-helper provides verbal cues and/or touching/steadying and/or contact guard assistance as patient completes activity. Assistance may be provided throughout the activity or intermittently. 3-Partial/Moderate Assistance-helper does LESS THAN HALF the effort. [place] lifts, holds or supports trunk or limbs, but provides less than half the effort. 2-Substantial/Maximal Assistance-helper does MORE THAN HALF the effort. [place] l ifts or holds trunk or limbs and provides more than half the effort. 3-Bkhggtugw-fmdecy does ALL the effort. Patient does none of the effort to complete the activity. Or, the assistance of 2 or more helpers is required for the patient to complete the activity. If activity was not attempted, code reason: 7-Patient Refused. 9-Not Applicable-not attempted and the patient did not perform the activity before the current illness, exacerbation or injury. 10-Not Attempted due to Environmental Limitations-(lack of equipment, weather restraints, etc.). 88-Not Attempted due to Medical Conditions or Safety Concerns. Roll Left & Right (QC): 4 Sit to Lying (QC): 4 Lying to Sitting/Side of Bed(Q: 4 Sit to Stand (QC): 4 Chair/Okg-bp-Mewtw Xfer(QC): 4 Weight Bearing Right Lower Extremity: Right Full Weight Bearing Left Lower Extremity: Left Full Weight Bearing Gait Training Does the Patient Walk?: Yes Distance: 296' Walk 10 feet (QC): 4 Walk 50 ft with 2 Turns(QC): 4 Walk 150 ft (QC): 4 Gait Persons Needed: 1 Gait Assistive Device: FWW Pt demonstrated slow, reciprocal GT pattern. Pt shows no LOB. Pt required frequent rest breaks during ambulation. Wheelchair Training Does the Pt Use a Wheelchair?: No Exercises Supine Ex: Ankle pumps (2 20x), Heel Slides (2 20x), Knee to chest (2 20x), Short Arc Quads (20x), Straight leg raise (20x), Hip abd/add (2 20x) Seated Therapy Exercises: Ankle pumps, Long arc quads, Hip flexion, Hamstring Curls, Hip abd/add Seated Reps: 20 Treatments Pt completed all Exs listed above. Pt ambulated from room, in to lobby area, down the beavers, to windows, took a seated rest break, then ambulated back to room. [employer] was present at beginning of tx session. Once PT was concluded pt was back in bed, with call light and tray in reach and all needs met. Assessment Current Status: Good Progress Pt would benefit from continued PT to improve on strength, activity tolerance and balance. PT Short Term Goals Short Term Goals Time Frame: August 21, 2021 Roll Left & Right: 6 Sit to lyin Lying to sitting on side of be: 6 Sit to stand: 4 (SBA) Chair/oew-fg-vsbmc transfer: 6 Walk 10 feet: 4 (SBA) Walk 50 feet with two turns: 4 (SBA) Walk 150 feet: 4 (SBA) 4 steps: 4 (CGA) PT Compound Specialist Goals Compound Specialist Goals PT Usp Goals Time Frame: September 04, 2021 Roll Left & Right (QC): 6 Sit to Lying (QC): 6 Lying-Sitting on Side/Bed(QC): 6 Sit to Stand (QC): 6 Chair/Fga-fi-Vxwtf Xfer(QC): 6 Toilet Transfer (QC): 6 Car Transfer (QC): 6 Does the Patient Walk: Yes Walk 10 feet (QC): 6 Walk 50ft with 2 Turns (QC): 6 Walk 150 ft (QC): 6 Walking 10ft on Uneven Surface: 6 1 Step (curb) (QC): 6 4 Steps (QC): 4 (SBA) 12 Steps (QC): 4 (CGA) Picking up an Object (QC): 6 Does the Pt use WC or Scooter?: No Wheel 50 feet with 2 turns (QC: 9 Type: N/A Wheel 150 feet: 9 Type: N/A PT Plan Problem List Problem List: Activity Tolerance, Functional Strength, Balance Treatment/Plan Treatment Plan: Continue Plan of Care Treatment Plan: Bed Mobility, Education, Functional Activity Rachelle, Functional Strength, Group Therapy, Gait, Safety, Therapeutic Exercise, Transfers Treatment Duration: September 04, 2021 Frequency: At least 5 of 7 days/Wk (IRF) Estimated Hrs Per Day: 1.5 hours per day Patient and/or Family Agrees t: Yes Safety Risks/Education Patient Education: Transfer Techniques, Reviewed Precautions, Correct Positioning, Safety Issues Teaching Recipient: Patient, Significant Other Teaching Methods: Discussion Response to Teaching: Verbalize Understanding Pts wanted to know what the back precautions were for the pt. PT explains precautions to . Pts also wanted to know when pt would be discharged. PT asks social media assistant. Time/GCodes Time In: 800 Time Out: 900 Total Billed Treatment Time: 60 Total Billed Treatment 800-900 1, EX 3 (40), GT (20) [phone] 1, EX (30) NANDA ONEIL BISQUE PLACER August 22, 2021 12:01
[2021-08-22] MEDS: CALCIUM CARB + VIT D 600 MG (CALCARB + D) TAB PO SCH (16:40)
[2021-08-22 20:30] VITALS: BP 100/59
[2021-08-22] MEDS: ASPIRIN E.C. 81 MG (ECOTRIN) TAB PO SCH (20:35)
[2021-08-22] MEDS: doxAzosin 4 MG (CARDURA) TAB PO SCH (20:35)
[2021-08-22] MEDS: MAGNESIUM OXIDE (MAG-OX)400 MG TAB PO SCH (20:35)
[2021-08-22] MEDS: ACETAMINOPHEN 325 MG TABLET PO PRN (20:55)
[2021-08-23] MEDS: SUCRALFATE 1 GM (CARAFATE) TAB PO SCH ×5 (06:26→20:29)
[2021-08-23] MEDS: MULTIVIT W/MINERALS TAB (THERAGRAN M) PO SCH (06:26)
[2021-08-23] MEDS: LEVOTHYROXINE 50 MCG (LEVOTHROID) TAB PO SCH (06:26)
--- NOTE | 2021-08-23 06:38 | PM&R Progress Note ---
Subjective HPI/CC On Admission Date Seen by Provider: August 23, 2021 Time Seen by Provider: 11:00 Subjective/Events-last exam 08/23/2021: Patient dramatically improved Discharge home on Friday FUO continues just at night but no evidence of any infection I did update him on that Ready for discharge 08/22/21: Pt is doing very well Moving around okay Discharge planned for Friday Bowels are moving Taking his pills 08/21/2021: Patient doing a lot better Eating better He may be able to recover after all If he continues to decline here will need usp Fever continues of unknown source 08/20/2021: Patient doing a little better today Talk to him about the need to increase nutrition Seems to be participating pretty well today I did update protective services social worker regarding the need for possible skilled placement if he continues to decline 08/19/2021: Patient about the same today Apathy noted Refusing to eat and drink much at all Had a long conversation with about lack of motivation and cannot improve nu trition intake Told her if he fails inpatient rehab he will need [facility] placement Will talk to protective services social worker tomorrow 08/18/2021: Patient doing a lot better Pain is controlled Fevers are defervescing Becoming more functional Checked meds and labs 08/17/2021: Fever still continues Holding laxatives due to some loose stools but then he says his bowels aren't moving He still continues to smoke, doesn't need a nicotine patch KPad will be used for leg pain Chest x-ray and UA were normal Fever is periodically occurring 08/16/2021: Pt had another fall this morning Septic work up initiated Chest x-ray and UA will be ordered On an alarm now to prevent impulsive behavior Had diarrhea yesterday but none today Had a lot of vertigo Fever is 101 Very complicated individual, will be on standby for any clinical status decline High risk for decompensation Review of Systems Musculoskeletal: neck pain, back pain Objective Exam Vital Signs Vital Signs Date Time Temp Pulse Resp B/P (MAP) Pulse Ox O2 Delivery O2 Flow Rate FiO2 08/23/21 21:00 Room Air 08/23/21 20:47 37.1 86 20 116/66 (83) 98 08/22/21 20:30 2.00 Capillary Refill : General Appearance: No Apparent Distress, WD/WN, Chronically ill HEENT: PERRL/EOMI, Normal ENT Inspection, Pharynx Normal Neck: Full Range of Motion, Normal Inspection, Non Tender, Supple, Carotid Bruit Respiratory: Chest Non Tender, Lungs Clear, Normal Breath Sounds, No Accessory Muscle Use, No Respiratory Distress Cardiovascular: Regular Rate, Rhythm, No Edema, No Gallop, No JVD, No Murmur, Normal Peripheral Pulses Gastrointestinal: Normal Bowel Sounds, No Organomegaly, No Pulsatile Mass, Non Tender, Soft Back: Decreased Range of Motion, Muscle Spasm, Vertebral Tenderness Extremity: Normal Capillary Refill, Normal Inspection, Normal Range of Motion, Non Tender, No Calf Tenderness, No Pedal Edema Neurologic/Psychiatric: Alert, Oriented x3, No Motor/Sensory Deficits, Normal Mood/Affect, Abnormal Gait, Motor Weakness Skin: Normal Color, Warm/Dry Lymphatic: No Adenopathy Results/Procedures Lab Laboratory Tests 08/23/21 07:31 Patient resulted labs reviewed. FIM Transfers Therapy Code Descriptions/Definitions Functional [place] Measure: 0=Not Assessed/NA 4=Minimal Assistance 1=Total Assistance 5=Supervision or Setup 2=Maximal Assistance 6=Modified [place] 3=Moderate Assistance 7=Complete IndependenceSCALE: Activities may be completed with or without assistive devices. 4-Jbsxyqqjix-btceldj completes the activity by him/herself with no assistance from a helper. 5-Set-up or Clean-up Assistance-helper sets up or cleans up; patient completes activity. [place] assists only prior to or following the activity. 4-Supervision or Touching Assistance-helper provides verbal cues and/or touching/steadying and/or contact guard assistance as patient completes activity. Assistance may be provided throughout the activity or intermittently. 3-Partial/Moderate Assistance-helper does LESS THAN HALF the effort. [place] li fts, holds or supports trunk or limbs, but provides less than half the effort. 2-Substantial/Maximal Assistance-helper does MORE THAN HALF the effort. [place] lifts or holds trunk or limbs and provides more than half the effort. 7-Ctxitzejj-rveeos does ALL the effort. Patient does none of the effort to complete the activity. Or, the assistance of 2 or more helpers is required for the patient to complete the activity. If activity was not attempted, code reason: 7-Patient Refused. 9-Not Applicable-not attempted and the patient did not perform the activity before the current illness, exacerbation or injury. 10-Not Attempted due to Environmental Limitations-(lack of equipment, weather restraints, etc.). 88-Not Attempted due to Medical Conditions or Safety Concerns. Roll Left to Right (QC): 4 Sit to Lying (QC): 4 Sit to Stand (QC): 4 Chair/Ivo-to-Zutql Xfer(QC): 4 Car Transfer (QC): 4 (SBA) Gait Training Does the Patient Walk?: Yes Distance: 296' Walk 10 feet (QC): 4 Walk 50 ft with 2 Turns(QC): 4 Walk 150 ft (QC): 4 Walking 10ft/uneven surface-QC: 4 (CGA) Gait Persons Needed: 1 Gait Assistive Device: FWW Wheelchair Training Does the Pt Use a Wheelchair?: No Wheel 50 ft with 2 turns (QC): 5 Wheel 150 ft (QC): 5 Type of Wheelchair: Manual Stair Training #of Steps: 1 1 Step (curb) (QC): 4 (CGA) 4 Steps (QC): 88 12 Steps (QC): 88 Balance Picking up an Object (QC): 4 (CGA using rate engineer) ADL-Treatment Eating (QC): 6 Oral Hygiene (QC): 88 Shower/Bathe Self (QC): 4 (SBA for back precautions) Upper Body Dressing (QC): 5 Lower Body Dressing (QC): 4 (SBA) On/Off Footwear (QC): 4 (SBA for back precautions) Toileting Hygiene (QC): 4 (SBA) Toilet Transfer (QC): 4 (SBA) Assessment/Plan Assessment and Plan Assess & Plan/Chief Complaint Assessment: 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 Hernández in depth 08/17/2021: Monitor fever Supportive care Pain control 08/18/2021: Supportive care Monitor fever 08/19/2021: Poor motivation Supportive care 08/20/2021: Supportive care Monitor closely May need skilled care 08/21/2021: Supportive care Monitor closely 08/22/21: Monitor fever Improved 08/23/2021: Discharge home tomorrow (1) Myopathy (2) CAD (coronary artery disease) ABIEL SAUNDERS DO August 23, 2021 06:38
[2021-08-23 07:45] LABS: ALBUMIN 3.3 GM/DL (3.2-4.5)
[2021-08-23 07:46] LABS: CALCIUM 9.3 MG/DL (8.5-10.1)
[2021-08-23 07:47] LABS: BASOPHILS # (AUTO) 0.1 10^3/uL (0.0-0.1); BASOPHILS % (AUTO) 1 % (0-10); EOSINOPHILS # (AUTO) 0.2 10^3/uL (0.0-0.3); EOSINOPHILS % (AUTO) 3 % (0-10); HEMATOCRIT 30 % (40-54); HEMOGLOBIN 10.3 g/dL (13.3-17.7); LYMPHOCYTES # (AUTO) 1.2 10^3/uL (1.0-4.0); LYMPHOCYTES % (AUTO) 16 % (12-44); MEAN CORPUSCULAR HEMOGLOBIN 34 pg (25-34); MEAN CORPUSCULAR HGB CONC 34 g/dL (32-36); MEAN CORPUSCULAR VOLUME 100 fL (80-99); MEAN PLATELET VOLUME 9.1 fL (9.0-12.2); MONOCYTES # (AUTO) 0.6 10^3/uL (0.0-1.0); MONOCYTES % (AUTO) 8 % (0-12); NEUTROPHILS # (AUTO) 5.5 10^3/uL (1.8-7.8); NEUTROPHILS % (AUTO) 72 % (42-75); PLATELET COUNT 299 10^3/uL (130-400); TOTAL PROTEIN 6.6 GM/DL (6.4-8.2); WHITE BLOOD COUNT 7.6 10^3/uL (4.3-11.0)
[2021-08-23 07:49] LABS: BILIRUBIN,TOTAL 0.6 MG/DL (0.1-1.0)
[2021-08-23 07:51] LABS: CREATININE SERUM 0.85 MG/DL (0.60-1.30)
[2021-08-23 08:00] VITALS: BP 128/76
[2021-08-23] MEDS: PANTOPRAZOLE 40 MG (PROTONIX) TAB PO SCH (08:08)
[2021-08-23] MEDS: APIXABAN 5 MG (ELIQUIS) TABLET PO SCH ×2 (08:08→20:29)
[2021-08-23] MEDS: ALLOPURINOL 100 MG (ZYLOPRIM) TAB PO SCH ×2 (08:08→20:29)
[2021-08-23] MEDS: VITAMIN D3 25 MCG (1,000 UNITS) TABLET PO SCH (08:08)
[2021-08-23] MEDS: DOCUSATE SODIUM 100 MG (COLACE) CAP PO SCH ×2 (08:08→20:29)
[2021-08-23] MEDS: RANOLAZINE ER 500 MG TAB (RANEXA) PO SCH ×2 (08:08→20:29)
[2021-08-23] MEDS: ZINC SULFATE 220 MG CAPSULE PO SCH (08:08)
[2021-08-23] MEDS: DRONEDARONE 400 MG TABLET PO SCH ×2 (08:09→20:29)
[2021-08-23] MEDS: SENNA W/DOCUSATE (SENOKOT S) TABLET PO SCH ×2 (08:09→20:29)
--- NOTE | 2021-08-23 08:29 | Cardiology Progress Note ---
Subjective Date Seen by Provider: August 23, 2021 Time Seen by Provider: 08:00 Subjective/Events-last exam Patient is sitting up in chair, continues to c/o numbness in hand. Denies any chest pain Objective-Cardiology Exam Last Set of Vital Signs Vital Signs 08/23/21 08:00 Temp 36.4 Pulse 87 Resp 18 B/P (MAP) 128/76 (93) Pulse Ox 93 O2 Delivery Room Air General: Alert, Oriented X3, Cooperative HEENT: Atraumatic, PERRLA, Other (Complaint of neck pain) Neck: Supple, No JVD, No Thyromegaly Lungs: Clear to Auscultation, Normal Air Movement Heart: Regular Rate, Normal S1, Normal S2, No Murmurs Abdomen: Normal Bowel Sounds, Soft, No Tenderness, No Hepatosplenomegaly, No Masses Extremities: No Clubbing, No Cyanosis, No Edema, Normal Pulses, No Tenderness/Swelling Skin: No Rashes, No Breakdown, No Significant Lesion Neuro: Normal Gait, Normal Speech, Normal Tone, Sensation Intact, Other (Weakness and numbness in the upper extremities) Psych/Mental Status: Mental Status NL, Mood NL Results Lab Laboratory Tests 08/23/21 07:31 A/P-Cardiology Admission Diagnosis CAD PAF CHF HTN Assessment/Plan Low-grade fever, patient has been having recurrent episodes of low-grade temperature every night. No source of infection was identified. I am concerned about surgical site infection. I will repeat blood cultures, evaluate for any other source of infection. Recommend discussing with ID or surgeon regarding antibiotic coverage emp irically S/p Lumbar spine surgery with Dr. Hernández at [facility] on 07/24/21. Had another pro cedure done 08/03/21 d/t post operative CSF leak. Having generalized debility/weakness, continue with PT Supraventricular tachycardia, paroxysmal atrial flutter with rapid ventricular response, first documented on February 13, 2018 underwent JIMY with cardioversion. S/p ablation with Dr. Martines on 03/16/18. Asymptomatic. Started on Multaq, will continue to monitor History of loop monitor implant, showing occasional episodes of atrial fibrillation, short episodes. Continue to monitor Chest pain, history of chronic stable angina, intolerant to NTG with severe headache, tolerating Ranexa, Denies any recent chest pain. Will continue to monitor. Coronary artery disease, status post CABG x3 in 2001. Cardiac catheterization done April 2016 revealing a difficult anatomy was unable to evaluate left coronary system done within the show left heart catheterization. Patent vein graft to the diagonal artery and obtuse marginal branch artery. Occluded small RCA with collateral filling the distal right from the left system. Another angiogram done on April 18, 2016 revealing patent RODRIGUEZ to LAD. Patient did have severe stenosis of the ostium of the left subclavian artery. Underwent stenting to the left subclavian artery. Cardiac catheterization was carried out on February 21, 2021 after having an abnormal stress test which showed severe [place] coronary artery disease involving all his [place] arteries. The vein graft to the circumflex artery is occluded, the right coronary artery is a small artery that is not bypassed and not amendable to intervention, the vein graft to the diagonal artery is patent with good flow distally, the RODRIGUEZ to the LAD was not visualized due to the fact that the left subclavian stent was protruding in the aortic arch. Normal left ventricular function. CHF, chronic left ventricular systolic dysfunction, 2D echocardiogram was done on February 20, 2021 showing normal LV size, mild LVH, EF 50 to 55%, left atrium 4.1 cm, mild MR, mild AR, PA 30 to 35 mmHg. Continue to monitor Left subclavian artery stenosis-patient underwent left subclavian angiography with left subclavian balloon angioplasty and left subclavian stenting on 04/18/16 using Omnilink 08 stent 9 x 29 x 80 mm with lesion well covered in significant reduction in stenosis severity noted. There was 5-10 percent residue stenosis, however, there were a few stent struts protruding into the aortic arch. Maintained on Plavix and ASA. Continue to monitor Hypertension, labile hypertension, blood pressure medications discontinued d/t hypotension. Hyperlipidemia, lipid profile done on February 21, 2021 showing total cholesterol 147, triglyceride 137, HDL 46, LDL 77. Continue to monitor Constipation, started on stool softeners, prune juice Tobaccoism-educated on the importance of smoking cessation. Carotid artery stenosis-mild nonobstructive disease per carotid duplex done in April 2020, continue to monitor History of malignant melanoma, followed and managed by Dr. Nelson History of prostate cancer, followed and managed by Dr. Nelson. 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 Supervisory-Addendum Brief Supervisory Addendum Participated in pt care: history, MDM, physical Personally performed: exam, history, MDM Care discussed with: NATALY Results interpretation: Verified all documentation Notes: Patient was seen and evaluated with Yandy, examination performed, management plan was discussed, agree with the current scribed note, I made few changes to the note using Italic font YANDY HALE August 23, 2021 08:29 KAYLEY LAMBERT MD August 23, 2021 13:17
[2021-08-23] MEDS: polyethylene glycoL POWDER 17 GM (MIRALAX) PACK PO SCH ×2 (09:04→20:29)
[2021-08-23] MEDS: MUPIROCIN 2% OINT 22 GM (BACTROBAN) TUBE TOP SCH ×2 (09:04→20:30)
[2021-08-23] MEDS: MICONAZOLE 2% POWDER (DESENEX AF) 90 GM TOP SCH ×2 (09:04→20:30)
--- NOTE | 2021-08-23 09:46 | Occupational Ther Daily Note ---
OT Current Status-Daily Note Subjective Pt up in recliner, agreeable to OT Tx. Mental Status/Objective Patient Orientation: Normal For Age ADL-Treatment Therapy Code Descriptions/Definitions Functional [place] Measure: 0=Not Assessed/NA 4=Minimal Assistance 1=Total Assistance 5=Supervision or Setup 2=Maximal Assistance 6=Modified [place] 3=Moderate Assistance 7=Complete IndependenceSCALE: Activities may be completed with or without assistive devices. 1-Cslqddsksn-ootmxto completes the activity by him/herself with no assistance from a helper. 5-Set-up or Clean-up Assistance-helper sets up or cleans up; patient completes activity. [place] assists only prior to or following the activity. 4-Supervision or Touching Assistance-helper provides verbal cues and/or touching/steadying and/or contact guard assistance as patient completes activity. Assistance may be provided throughout the activity or intermittently. 3-Partial/Moderate Assistance-helper does LESS THAN HALF the effort. [place] lifts, holds or supports trunk or limbs, but provides less than half the effort. 2-Substantial/Maximal Assistance-helper does MORE THAN HALF the effort. [place] lifts or holds trunk or limbs and provides more than half the effort. 6-Hqwjepgrr-bprcnz does ALL the effort. Patient does none of the effort to complete the activity. Or, the assistance of 2 or more helpers is required for the patient to complete the activity. If activity was not attempted, code reason: 7-Patient Refused. 9-Not Applicable-not attempted and the patient did not perform the activity before the current illness, exacerbation or injury. 10-Not Attempted due to Environmental Limitations-(lack of equipment, weather restraints, etc.). 88-Not Attempted due to Medical Conditions or Safety Concerns. Eating (QC): 5 (set up with containers and cutting food.) Oral Hygiene (QC): 88 Shower/Bathe Self (QC): 5 (set up at SC) Upper Body Dressing (QC): 5 (set up) Lower Body Dressing (QC): 4 (SBA in stand for clothing management, & SBA to maintain back precautions) On/Off Footwear: 4 (SBA to maintain precations.) Toileting Hygiene (QC): 4 (SBA in stand for clothing management.) Toilet Transfer (QC): 4 (SBA on/off toilet.) Other Treatment Pt in recliner, agreeable to OT Tx. Sit to stand from recliner, CGA, then SBA u sing FWW into bathroom and onto SC. Pt completed ADLs in bathroom as outlined above, then transferred to recliner, SBA using FWW. In order to increase fine motor strength and coordination, pt removed beads from heavy resistance theraputty (green). Post tx, pt up in recliner, call light in reach and all needs met. Chair alarm activated. Education OT Patient Education: Correct positioning, Energy conservation, Modified ADL techniques, Progress toward Goal/Update tx plan, Purpose of tx/functional activities, Rehab process Teaching Recipient: Patient Teaching Methods: Discussion Response to Teaching: Verbalize Understanding OT Short Term Goals Short Term Goals Time Frame: August 23, 2021 Eatin Oral hygiene: 88 Toileting hygiene: 3 Shower/bathe self: 3 Upper body dressin Lower body dressin Putting on/taking off footwear: 3 OT Mcc Goals Discharge Rn Goals Time Frame: September 04, 2021 Eating (QC): 6 (not met) Oral Hygiene (QC): 88 Toileting Hygiene (QC): 6 (not met) Shower/Bathe Self (QC): 5 (met) Upper Body Dressing (QC): 5 (met) Lower Body Dressing (QC): 5 (not met) On/Off Footwear (QC): 5 (not met) 1=Demonstrate adherence to instructed precautions during ADL tasks. 2=Patient will verbalize/demonstrate understanding of assistive devices/modifications for ADL. 3=Patient will improve strength/tolerance for activity to enable patient to perform ADL's. OT Education/Plan Problem List/Assessment Assessment: Decreased Activ Tolerance, Decreased UE Strength, Impaired Funct Balance, Impaired I ADL's, Impaired Self-Care Skills Discharge Recommendations Plan/Recommendations: Continue POC Treatment Plan/Plan of Care Patient would benefit from OT for education, treatment and training to promote independence in ADL's, mobility, safety and/or upper extremity function for ADL's. Plan of Care: ADL Retraining, Functional Mobility, Group Exercise/Act as Ind, UE Funct Exercise/Act Treatment Duration: September 04, 2021 Frequency: At least 5 of 7 days/Wk (IRF) Estimated Hrs Per Day: 1.5 hours per day (60-90 min/day) Agreement: Yes Rehab Potential: Fair Time/GCodes Start Time: 09:00 Stop Time: 10:00 Total Time Billed (hr/min): 60 Billed Treatment Time 1, ADL 3 (45'), FA (15') ARLENE JULIO OT August 23, 2021 09:46
--- NOTE | 2021-08-23 11:00 | Physical Therapy Daily Note ---
PT Daily Note-Current Subjective Patient was in chair and agreeable to PT. Patient appeared more motivated and less uncomfortable despite stating he had poor sleep last night. Pain Location: No Pain Reported Mental Status Patient Orientation: Person, Place, Situation Transfers SCALE: Activities may be completed with or without assistive devices. 3-Dynypycbim-bujocgt completes the activity by him/herself with no assistance from a helper. 5-Set-up or Clean-up Assistance-helper sets up or cleans up; patient completes activity. [place] assists only prior to or following the activity. 4-Supervision or Touching Assistance-helper provides verbal cues and/or touching/steadying and/or contact guard assistance as patient completes activity. Assistance may be provided throughout the activity or intermittently. 3-Partial/Moderate Assistance-helper does LESS THAN HALF the effort. [place] lifts, holds or supports trunk or limbs, but provides less than half the effort. 2-Substantial/Maximal Assistance-helper does MORE THAN HALF the effort. [place] lifts or holds trunk or limbs and provides more than half the effort. 0-Ausaivacb-bwddfx does ALL the effort. Patient does none of the effort to complete the activity. Or, the assistance of 2 or more helpers is required for the patient to complete the activity. If activity was not attempted, code reason: 7-Patient Refused. 9-Not Applicable-not attempted and the patient did not perform the activity before the current illness, exacerbation or injury. 10-Not Attempted due to Environmental Limitations-(lack of equipment, weather restraints, etc.). 88-Not Attempted due to Medical Conditions or Safety Concerns. Roll Left & Right (QC): 6 Sit to Lying (QC): 4 (SBA) Lying to Sitting/Side of Bed(Q: 4 (SBA) Sit to Stand (QC): 4 (SBA) Chair/Tbw-py-Pkzhf Xfer(QC): 4 (SBA) Toilet Transfer (QC): 4 (SBA) Car Transfer (QC): 4 (SBA) Weight Bearing Right Lower Extremity: Right Full Weight Bearing Left Lower Extremity: Left Full Weight Bearing Gait Training Does the Patient Walk?: Yes Distance: 100', 150'x2 Walk 10 feet (QC): 4 (CGA) Walk 50 ft with 2 Turns(QC): 4 (CGA) Walk 150 ft (QC): 4 (CGA) Walking 10ft/uneven surface-QC: 4 (CGA) Gait Persons Needed: 1 Gait Assistive Device: FWW Step through with good foot clearance. Reciprical gait pattern. Wheelchair Training Does the Pt Use a Wheelchair?: No Wheel 50 ft with 2 turns (QC): 9 Wheel 150 ft (QC): 9 Type of Wheelchair: N/A Stair Training Stair Training: Handrails/: 2 handrails #of Steps: 12 1 Step (curb) (QC): 4 (CGA) 4 Steps (QC): 4 (CGA) 12 Steps (QC): 4 (CGA) Stairs: Pattern: Reciprocal Balance Picking up an Object (QC): 4 (SBA using bleaching supervisor) Exercises Supine Ex: Short Arc Quads, Straight leg raise, Hip abd/add (Using red ball and red band around knees ) Supine Reps: 20 Standing: Sit to Stand (30) Treatments Modified plank against windowcil. Patient leaned agains cill and took a few steps back. Back precautions maintained. Transfers, ambulation, LE strengthening Assessment Current Status: Fair Progress Patient had good energy levels today and demonstrated decent strength with activities. Patient was SBA with supine to sit, and sit to stand. Patient was CGA with walking and can walk up to 150' but then needs a seated rest break. Patient ambulated up and down 12 steps well with reciprical gait pattern and CGA. Patient was left in chair with call light, tray, alarm, and all needs met. PT Short Term Goals Short Term Goals Time Frame: August 21, 2021 Roll Left & Right: 6 Sit to lyin Lying to sitting on side of be: 6 Sit to stand: 4 (SBA) Chair/ckt-jb-txgpl transfer: 6 Walk 10 feet: 4 (SBA) Walk 50 feet with two turns: 4 (SBA) Walk 150 feet: 4 (SBA) 4 steps: 4 (CGA) PT Fpc Goals Fpc Goals PT Shipping Support Clerk Goals Time Frame: September 04, 2021 Roll Left & Right (QC): 6 Sit to Lying (QC): 6 Lying-Sitting on Side/Bed(QC): 6 Sit to Stand (QC): 6 Chair/Amm-op-Ndkso Xfer(QC): 6 Toilet Transfer (QC): 6 Car Transfer (QC): 6 Does the Patient Walk: Yes Walk 10 feet (QC): 6 Walk 50ft with 2 Turns (QC): 6 Walk 150 ft (QC): 6 Walking 10ft on Uneven Surface: 6 1 Step (curb) (QC): 6 4 Steps (QC): 4 (SBA) 12 Steps (QC): 4 (CGA) Picking up an Object (QC): 6 Does the Pt use WC or Scooter?: No Wheel 50 feet with 2 turns (QC: 9 Type: N/A Wheel 150 feet: 9 Type: N/A PT Plan Problem List Problem List: Activity Tolerance, Functional Strength, Safety, Balance, Gait, Transfer, Bed Mobility, ROM Treatment/Plan Treatment Plan: Continue Plan of Care Treatment Plan: Bed Mobility, Education, Functional Activity Rachelle, Functional Strength, Group Therapy, Gait, Safety, Therapeutic Exercise, Transfers Treatment Duration: September 04, 2021 Frequency: At least 5 of 7 days/Wk (IRF) Estimated Hrs Per Day: 1.5 hours per day Patient and/or Family Agrees t: Yes Safety Risks/Education Patient Education: Gait Training, Transfer Techniques, Steps, Reviewed Precautions, Correct Positioning, Disease Process, Safety Issues Teaching Recipient: Patient Teaching Methods: Demonstration, Discussion Response to Teaching: Verbalize Understanding, Return Demonstration Time/GCodes Time In: 1000 Time Out: 1100 Total Billed Treatment Time: 60 Total Billed Treatment 1 visit FA 50min EX 10min REED ROMAN PT August 23, 2021 11:00
[2021-08-23] MEDS ORDERED: MICO90PO TOP (12:10)
[2021-08-23] MEDS ORDERED: SUCR1TAB PO (12:10)
[2021-08-23] MEDS ORDERED: CHOL-34 PO (12:10)
--- NOTE | 2021-08-23 12:12 | D/C HH Face to Face Order ---
D/C Face to Face Orders Reconcile Patient Problems Problems Reviewed?: Yes Instructions for Patient Via [facility] [employer], Patient Instructions/FollowUp: PCP 1 week Physician to follow Patient: PCP Discharge Diet for Home: No Restrictions Patient Problems: Lumbar spine surgery FUO Patient Data-Allergies,Ht & Wt Patient Allergies: Coded Allergies: No Known Drug Allergies (Verified , 02/23/08) Height (Feet): 6 Height (Inches): 0.00 Weight (Pounds): 213 Weight (Ounces): 0.0 Home Health Need/Face to Face Date of Face to Face: August 23, 2021 Clinical Findings: Generalized weakness and fatigue, Instability, Muscle weakness, Pain with ambulation, Shortness of breath I have seen Pt njds-em-bpsn: Yes Discharged To: Home Diagnosis/Conditions: Debility Patient is Homebound due to: CognItive deficits, Muscle weakness Homebound Status Due to the above stated illness, injury or surgical procedure (medical condition or diagnosis) and associated clinical findings, the patient is homebound because of his/her inability to leave home except with aid of a supportive device and/or person AND leaving the home requires a considerable and taxing effort or is medically contraindicated. Pt req the following assistanc: Walker Home Health Nursing Orders Home Health Services Order: Nursing Services, Vehicle Body Maker-Evaluate & Treat, Physical Therapy-Evaluate & Treat Certify Stmt I certify that this patient is under my care and that I, a nurse practitioner or a physician; a office manager executive assistant working with me, had a face to face encounter that - meets the physician face to face encounter requirements with this patient as dated. ABIEL SAUNDERS DO August 23, 2021 12:12
--- NOTE | 2021-08-23 13:34 | Occupational Ther Daily Note ---
OT Current Status-Daily Note Subjective Pt in recliner, agreeable to OT Tx. Pt feels very full after lunch. Mental Status/Objective Patient Orientation: Normal For Age ADL-Treatment Therapy Code Descriptions/Definitions Functional [place] Measure: 0=Not Assessed/NA 4=Minimal Assistance 1=Total Assistance 5=Supervision or Setup 2=Maximal Assistance 6=Modified [place] 3=Moderate Assistance 7=Complete IndependenceSCALE: Activities may be completed with or without assistive devices. 5-Eyxiqeeofu-oovdmrw completes the activity by him/herself with no assistance from a helper. 5-Set-up or Clean-up Assistance-helper sets up or cleans up; patient completes activity. [place] assists only prior to or following the activity. 4-Supervision or Touching Assistance-helper provides verbal cues and/or touching/steadying and/or contact guard assistance as patient completes activity. Assistance may be provided throughout the activity or intermittently. 3-Partial/Moderate Assistance-helper does LESS THAN HALF the effort. [place] lifts, holds or supports trunk or limbs, but provides less than half the effort. 2-Substantial/Maximal Assistance-helper does MORE THAN HALF the effort. [place] lifts or holds trunk or limbs and provides more than half the effort. 1-Wemzojzli-affobe does ALL the effort. Patient does none of the effort to complete the activity. Or, the assistance of 2 or more helpers is required for the patient to complete the activity. If activity was not attempted, code reason: 7-Patient Refused. 9-Not Applicable-not attempted and the patient did not perform the activity b efore the current illness, exacerbation or injury. 10-Not Attempted due to Environmental Limitations-(lack of equipment, weather restraints, etc.). 88-Not Attempted due to Medical Conditions or Safety Concerns. Other Treatment Pt up in recliner, agreeable to OT Tx. Pt used FWW to go to therapy gym, SBA. OT tx with focus on increasing BUE fine motor strength and activity tolerance. Pt removed/placed graded clothespins (1-5lbs) x2 times with each hand. Pt returned to his room, SBA, transferring to bed. Post tx, pt in bed, call light in reach and all needs met. Education OT Patient Education: Correct positioning, Modified ADL techniques, Progress toward Goal/Update tx plan, Purpose of tx/functional activities Teaching Recipient: Patient Teaching Methods: Discussion Response to Teaching: Verbalize Understanding OT Short Term Goals Short Term Goals Time Frame: August 23, 2021 Eatin Oral hygiene: 88 Toileting hygiene: 3 Shower/bathe self: 3 Upper body dressin Lower body dressin Putting on/taking off footwear: 3 OT Half-Way Goals Half-Way Goals Time Frame: September 04, 2021 Eating (QC): 6 (not met) Oral Hygiene (QC): 88 Toileting Hygiene (QC): 6 (not met) Shower/Bathe Self (QC): 5 (met) Upper Body Dressing (QC): 5 (met) Lower Body Dressing (QC): 5 (not met) On/Off Footwear (QC): 5 (not met) 1=Demonstrate adherence to instructed precautions during ADL tasks. 2=Patient will verbalize/demonstrate understanding of assistive devices/modifications for ADL. 3=Patient will improve strength/tolerance for activity to enable patient to perform ADL's. OT Education/Plan Problem List/Assessment Assessment: Decreased Activ Tolerance, Decreased UE Strength, Impaired Funct Balance, Impaired I ADL's, Impaired Self-Care Skills Discharge Recommendations Plan/Recommendations: Continue POC Treatment Plan/Plan of Care Patient would benefit from OT for education, treatment and training to promote independence in ADL's, mobility, safety and/or upper extremity function for ADL's. Plan of Care: ADL Retraining, Functional Mobility, Group Exercise/Act as Ind, UE Funct Exercise/Act Treatment Duration: September 04, 2021 Frequency: At least 5 of 7 days/Wk (IRF) Estimated Hrs Per Day: 1.5 hours per day (60-90 min/day) Agreement: Yes Rehab Potential: Fair Time/GCodes Start Time: 13:00 Stop Time: 13:30 Total Time Billed (hr/min): 30 Billed Treatment Time 1, FA 2 ARLENE JULIO OT August 23, 2021 13:34
--- NOTE | 2021-08-23 15:08 | Physical Therapy Daily Note ---
PT Daily Note-Current Subjective Patient was asleep in bed upon entering. Was agreeable to PT with no new complaints. Pain Numeric Pain Scale: 0-No Pain Mental Status Patient Orientation: Person, Place, Situation Transfers SCALE: Activities may be completed with or without assistive devices. 2-Ohfsclztef-quwbvvl completes the activity by him/herself with no assistance from a helper. 5-Set-up or Clean-up Assistance-helper sets up or cleans up; patient completes activity. [place] assists only prior to or following the activity. 4-Supervision or Touching Assistance-helper provides verbal cues and/or touching/steadying and/or contact guard assistance as patient completes activity. Assistance may be provided throughout the activity or intermittently. 3-Partial/Moderate Assistance-helper does LESS THAN HALF the effort. [place] lifts, holds or supports trunk or limbs, but provides less than half the effort. 2-Substantial/Maximal Assistance-helper does MORE THAN HALF the effort. [place] lifts or holds trunk or limbs and provides more than half the effort. 1-Mwymcmwsq-sxqaab does ALL the effort. Patient does none of the effort to complete the activity. Or, the assistance of 2 or more helpers is required for the patient to complete the activity. If activity was not attempted, code reason: 7-Patient Refused. 9-Not Applicable-not attempted and the patient did not perform the activity before the current illness, exacerbation or injury. 10-Not Attempted due to Environmental Limitations-(lack of equipment, weather restraints, etc.). 88-Not Attempted due to Medical Conditions or Safety Concerns. Lying to Sitting/Side of Bed(Q: 4 Sit to Stand (QC): 4 Weight Bearing Right Lower Extremity: Right Full Weight Bearing Left Lower Extremity: Left Full Weight Bearing Gait Training Does the Patient Walk?: Yes Distance: 100'x2 Walk 10 feet (QC): 4 Walk 50 ft with 2 Turns(QC): 4 Gait Assistive Device: FWW Reciprical gait pattern. slightly decreased speed. Exercises NuStep Minutes: 15 NuStep Workload: 6 Treatments LE strengthening, Ambulation, endurance. Assessment Current Status: Fair Progress Patient appeared less fatigued today than he has in previous session. Was able to tolerate a decent amount of time on the NuStep, with slightly high resistance. Needed to be toileted, and was transfered to toilet with SBA. Was left in seated at EOB with call light, tray, and all needs met. PT Short Term Goals Short Term Goals Time Frame: August 21, 2021 Roll Left & Right: 6 Sit to lyin Lying to sitting on side of be: 6 Sit to stand: 4 (SBA) Chair/rwn-xs-bbakc transfer: 6 Walk 10 feet: 4 (SBA) Walk 50 feet with two turns: 4 (SBA) Walk 150 feet: 4 (SBA) 4 steps: 4 (CGA) PT Tennis Instructor Goals Tennis Instructor Goals PT Tennis Instructor Goals Time Frame: September 04, 2021 Roll Left & Right (QC): 6 Sit to Lying (QC): 6 Lying-Sitting on Side/Bed(QC): 6 Sit to Stand (QC): 6 Chair/Csr-la-Tcyrp Xfer(QC): 6 Toilet Transfer (QC): 6 Car Transfer (QC): 6 Does the Patient Walk: Yes Walk 10 feet (QC): 6 Walk 50ft with 2 Turns (QC): 6 Walk 150 ft (QC): 6 Walking 10ft on Uneven Surface: 6 1 Step (curb) (QC): 6 4 Steps (QC): 4 (SBA) 12 Steps (QC): 4 (CGA) Picking up an Object (QC): 6 Does the Pt use WC or Scooter?: No Wheel 50 feet with 2 turns (QC: 9 Type: N/A Wheel 150 feet: 9 Type: N/A PT Plan Problem List Problem List: Activity Tolerance, Functional Strength, Safety, Balance, Gait, Transfer, ROM Treatment/Plan Treatment Plan: Continue Plan of Care Treatment Plan: Bed Mobility, Education, Functional Activity Rachelle, Functional Strength, Group Therapy, Gait, Safety, Therapeutic Exercise, Transfers Treatment Duration: September 04, 2021 Frequency: At least 5 of 7 days/Wk (IRF) Estimated Hrs Per Day: 1.5 hours per day Patient and/or Family Agrees t: Yes Safety Risks/Education Patient Education: Gait Training, Transfer Techniques, Reviewed Precautions, Correct Positioning, Safety Issues Teaching Recipient: Patient Teaching Methods: Demonstration, Discussion Response to Teaching: Verbalize Understanding, Return Demonstration Time/GCodes Time In: 1415 Time Out: 1445 Total Billed Treatment Time: 30 Total Billed Treatment 1 visit EX 15min FA 15min REED ROMAN PT August 23, 2021 15:08
[2021-08-23 17:20] LABS: CLARITY,URINE SL CLOUDY; COLOR,URINE BROWN; GLUCOSE, URINE (UA) NEGATIVE (NEGATIVE); KETONES,URINE NEGATIVE (NEGATIVE); LEUKOCYTE ESTERASE ,URINE NEGATIVE (NEGATIVE); NITRITE,URINE NEGATIVE (NEGATIVE); PH,URINE 5.5 (5-9); PROTEIN,URINE TRACE (NEGATIVE)
[2021-08-23 17:27] LABS: BACTERIA,URINE NEGATIVE /HPF; BILIRUBIN,URINE NEGATIVE (NEGATIVE); CALCIUM OXALATE CRYSTALS,UR RARE /LPF; HYALINE CASTS, URINE RARE /LPF; RBC,URINE RARE /HPF; WBC,URINE RARE /HPF
[2021-08-23] MEDS: CALCIUM CARB + VIT D 600 MG (CALCARB + D) TAB PO SCH (17:36)
[2021-08-23] MEDS: MAGNESIUM OXIDE (MAG-OX)400 MG TAB PO SCH (20:29)
[2021-08-23] MEDS: doxAzosin 4 MG (CARDURA) TAB PO SCH (20:29)
[2021-08-23] MEDS: ASPIRIN E.C. 81 MG (ECOTRIN) TAB PO SCH (20:29)
[2021-08-23 20:47] VITALS: BP 116/66
[2021-08-24 05:40] LABS: HEMATOCRIT 28 % (40-54); HEMOGLOBIN 9.3 g/dL (13.3-17.7); MEAN CORPUSCULAR HEMOGLOBIN 34 pg (25-34); MEAN CORPUSCULAR HGB CONC 34 g/dL (32-36); MEAN CORPUSCULAR VOLUME 101 fL (80-99); MEAN PLATELET VOLUME 8.7 fL (9.0-12.2); PLATELET COUNT 259 10^3/uL (130-400); WHITE BLOOD COUNT 6.6 10^3/uL (4.3-11.0)
[2021-08-24] MEDS: SUCRALFATE 1 GM (CARAFATE) TAB PO SCH ×2 (05:55→10:47)
[2021-08-24] MEDS: LEVOTHYROXINE 50 MCG (LEVOTHROID) TAB PO SCH (05:56)
[2021-08-24] MEDS: MULTIVIT W/MINERALS TAB (THERAGRAN M) PO SCH (05:56)
--- NOTE | 2021-08-24 06:01 | Discharge Summary ---
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 Hernández in depth 08/17/2021: Monitor fever Supportive care Pain control 08/18/2021: Supportive care Monitor fever 08/19/2021: Poor motivation Supportive care 08/20/2021: Supportive care Monitor closely May need skilled care 08/21/2021: Supportive care Monitor closely 08/22/21: Monitor fever Improved 08/23/2021: Discharge home tomorrow (1) Myopathy (2) CAD (coronary artery disease) Discharge Summary Discharge Physical Examination Allergies: Coded Allergies: No Known Drug Allergies (Verified , 02/23/08) Vitals & I&Os Vital Signs Date Time Temp Pulse Resp B/P (MAP) Pulse Ox O2 Delivery O2 Flow Rate FiO2 08/24/21 11:45 36.7 69 18 132/63 98 Room Air 08/22/21 20:30 2.00 General Appearance: Alert, Oriented X3, Cooperative Respiratory: Clear to Auscultation Cardiovascular: Regular Rate Neuro: Normal Gait, Normal Speech, Strength at 5/5 X4 Ext Hospital Course Was the Problem List Reviewed?: Yes Pt had a lengthy hospital course for 11 days after he was admitted for lumbar spine surgery recovery with CSF leaks, status post repair by Dr. Hernnádez. He required a great deal of monitoring, especially fever of unknown origin that occured only at night. No evidence of sepsis, procalcitonin remained normal, normal white count. Overall he was deemed stable for discharge. He improved with appetite, food intake, and therapy and was able to be discharged to home health. Labs (last 24 hrs) Laboratory Tests 08/15/21 05:38: White Blood Count 11.8H, Red Blood Count 2.84L, Hemoglobin 9.8L, Hematocrit 29L, Mean Corpuscular Volume 100H, Mean Corpuscular Hemoglobin 35H, Mean Corpuscular Hemoglobin Concent 34, Red Cell Distribution Width 13.5, Platelet Count 241, Mean Platelet Volume 9.6, Immature Granulocyte % (Auto) 1, Neutrophils (%) (Au to) 73, Lymphocytes (%) (Auto) 13, Monocytes (%) (Auto) 11, Eosinophils (%) (Auto) 2, Basophils (%) (Auto) 0, Neutrophils # (Auto) 8.6H, Lymphocytes # (Auto) 1.6, Monocytes # (Auto) 1.3H, Eosinophils # (Auto) 0.2, Basophils # (Auto) 0.0, Immature Granulocyte # (Auto) 0.1, Sodium Level 134L, Potassium Level 3.8, Chloride Level 105, Carbon Dioxide Level 19L, Anion Gap 10, Blood Urea Nitrogen 19H, Creatinine 1.17, Estimat Glomerular Filtration Rate 63, BUN/Creatinine Ratio 16, Glucose Level 104, Calcium Level 8.8, Corrected Calcium 9.6, Total Bilirubin 0.7, Aspartate Amino Transf (AST/SGOT) 24, Alanine Aminotransferase (ALT/SGPT) 19, Alkaline Phosphatase 74, Total Protein 5.6L, Albumin 3.0L 08/16/21 12:15: White Blood Count 13.5H, Red Blood Count 2.82L, Hemoglobin 9.7L, Hematocrit 28L, Mean Corpuscular Volume 101H, Mean Corpuscular Hemoglobin 34, Mean Corpuscular Hemoglobin Concent 34, Red Cell Distribution Width 13.6, Platelet Count 216, Mean Platelet Volume 9.3, Immature Granulocyte % (Auto) 1, Neutrophils (%) (Auto) 81H, Lymphocytes (%) (Auto) 10L, Monocytes (%) (Auto) 8, Eosinophils (%) (Auto) 0, Basophils (%) (Auto) 0, Neutrophils # (Auto) 10.9H, Lymphocytes # (Auto) 1.4, Monocytes # (Auto) 1.0, Eosinophils # (Auto) 0.0, Basophils # (Auto) 0.0, Immature Granulocyte # (Auto) 0.1, Sodium Level 131L, Potassium Level 3.9, Chloride Level 102, Carbon Dioxide Level 17L, Anion Gap 12, Blood Urea Nitrogen 16, Creatinine 1.09, Estimat Glomerular Filtration Rate 69, BUN/Creatinine Ratio 15, Glucose Level 99, Calcium Level 8.5, Corrected Calcium 9.1, Total Bilirubin 0.6, Aspartate Amino Transf (AST/SGOT) 29, Alanine Aminotransferase (ALT/SGPT) 27, Alkaline Phosphatase 76, Total Protein 6.0L, Albumin 3.2, Lactic Acid Level 1.04, Procalcitonin 0.06 08/16/21 13:25: Urine Color ORANGE, Urine Clarity CLEAR, Urine pH 5.5, Urine Specific [place] 1.025H, Urine Protein NEGATIVE, Urine Glucose (UA) NEGATIVE, Urine Ketones NEGATIVE, Urine Nitrite NEGATIVE, Urine Bilirubin NEGATIVE, Urine Urobilinogen 0.2, Urine Leukocyte Esterase NEGATIVE, Urine RBC (Auto) TRACE-IH, Urine RBC 10- 25H, Urine WBC 2-5, Urine Squamous Epithelial Cells RARE, Urine Crystals PRESENTH, Urine Calcium Oxalate Crystals RAREH, Urine Bacteria TRACE, Urine Casts PRESENT, Urine Hyaline Casts RARE, Urine Mucus NEGATIVE, Urine Culture Indicated NO 08/16/21 14:40: Influenza Type A (RT-PCR) Not Detected, Influenza Type B (RT-PCR) Not Detected, SARS-CoV-2 RNA (RT-PCR) Not Detected 08/20/21 06:43: White Blood Count 9.0, Red Blood Count 2.89L, Hemoglobin 9.9L, Hematocrit 29L, Mean Corpuscular Volume 100H, Mean Corpuscular Hemoglobin 34, Mean Corpuscular Hemoglobin Concent 34, Red Cell Distribution Width 13.5, Platelet Count 209, Mean Platelet Volume 9.1, Immature Granulocyte % (Auto) 0, Neutrophils (%) (Auto) 73, Lymphocytes (%) (Auto) 14, Monocytes (%) (Auto) 10, Eosinophils (%) (Auto) 3, Basophils (%) (Auto) 0, Neutrophils # (Auto) 6.5, Lymphocytes # (Auto) 1.2, Monocytes # (Auto) 0.9, Eosinophils # (Auto) 0.2, Basophils # (Auto) 0.0, Immature Granulocyte # (Auto) 0.0, Sodium Level 134L, Potassium Level 3.7, Chloride Level 101, Carbon Dioxide Level 23, Anion Gap 10, Blood Urea Nitrogen 7, Creatinine 0.80, Estimat Glomerular Filtration Rate 90, BUN/Creatinine Ratio 9, Glucose Level 106H, Calcium Level 8.7, Corrected Calcium 9.6, Total Bilirubin 0.8, Aspartate Amino Transf (AST/SGOT) 32, Alanine Aminotransferase (ALT/SGPT) 31, Alkaline Phosphatase 81, Total Protein 5.7L, Albumin 2.9L, Procalcitonin 0.04 08/23/21 07:31: White Blood Count 7.6, Red Blood Count 3.01L, Hemoglobin 10.3L, Hematocrit 30L, Mean Corpuscular Volume 100H, Mean Corpuscular Hemoglobin 34, Mean Corpuscular Hemoglobin Concent 34, Red Cell Distribution Width 13.7, Platelet Count 299, Mean Platelet Volume 9.1, Immature Granulocyte % (Auto) 0, Neutrophils (%) (Auto) 72, Lymphocytes (%) (Auto) 16, Monocytes (%) (Auto) 8, Eosinophils (%) (Auto) 3, Basophils (%) (Auto) 1, Neutrophils # (Auto) 5.5, Lymphocytes # (Auto) 1.2, Monocytes # (Auto) 0.6, Eosinophils # (Auto) 0.2, Basophils # (Auto) 0.1, Immature Granulocyte # (Auto) 0.0, Sodium Level 134L, Potassium Level 4.0, Chloride Level 100, Carbon Dioxide Level 25, Anion Gap 9, Blood Urea Nitrogen 5L , Creatinine 0.85, Estimat Glomerular Filtration Rate 88, BUN/Creatinine Ratio 6, Glucose Level 116H, Calcium Level 9.3, Corrected Calcium 9.9, Total Bilirubin 0.6, Aspartate Amino Transf (AST/SGOT) 28, Alanine Aminotransferase (ALT/SGPT) 31, Alkaline Phosphatase 89, Total Protein 6.6, Albumin 3.3, Procalcitonin 0.03 08/23/21 16:30: Urine Color BROWNH, Urine Clarity SL CLOUDY, Urine pH 5.5, Urine Specific [place] 1.020, Urine Protein TRACEH, Urine Glucose (UA) NEGATIVE, Urine Ketones NEGATIVE, Urine Nitrite NEGATIVE, Urine Bilirubin NEGATIVE, Urine Urobilinogen 0.2, Urine Leukocyte Esterase NEGATIVE, Urine RBC (Auto) NEGATIVE, Urine RBC RARE, Urine WBC RARE, Urine Crystals PRESENTH, Urine Calcium Oxalate Crystals RAREH, Urine Bacteria NEGATIVE, Urine Casts PRESENT, Urine Hyaline Casts RARE, Urine Mucus SMALLH, Urine Culture Indicated NO 08/24/21 05:29: White Blood Count 6.6, Red Blood Count 2.75L, Hemoglobin 9.3L, Hematocrit 28L, Mean Corpuscular Volume 101H, Mean Corpuscular Hemoglobin 34, Mean Corpuscular Hemoglobin Concent 34, Red Cell Distribution Width 13.8, Platelet Count 259, Mean Platelet Volume 8.7L Microbiology 08/23/21 Blood Culture - Preliminary, Resulted No growth Pending Labs Microbiology Date/Time Source Procedure Growth Status 08/23/21 13:49 Peripheral Rt Ac Blood Culture - Preliminary No growth Resulted 08/23/21 13:42 Peripheral Rt Ac Blood Culture - Preliminary No growth Resulted Laboratory Tests 08/15/21 05:38: White Blood Count 11.8, Red Blood Count 2.84, Hemoglobin 9.8, Hematocrit 29, Mean Corpuscular Volume 100, Mean Corpuscular Hemoglobin 35, Mean Corpuscular Hemoglobin Concent 34, Red Cell Distribution Width 13.5, Platelet Count 241, Mean Platelet Volume 9.6, Immature Granulocyte % (Auto) 1, Neutrophils (%) (Auto) 73, Lymphocytes (%) (Auto) 13, Monocytes (%) (Auto) 11, Eosinophils (%) (Auto) 2, Basophils (%) (Auto) 0, Neutrophils # (Auto) 8.6, Lymphocytes # (Auto) 1.6, Monocytes # (Auto) 1.3, Eosinophils # (Auto) 0.2, Basophils # (Auto) 0.0, Immature Granulocyte # (Auto) 0.1, Sodium Level 134, Potassium Level 3.8, Chloride Level 105, Carbon Dioxide Level 19, Anion Gap 10, Blood Urea Nitrogen 19, Creatinine 1.17, Estimat Glomerular Filtration Rate 63, BUN/Creatinine Ratio 16, Glucose Level 104, Calcium Level 8.8, Corrected Calcium 9.6, Total Bilirubin 0.7, Aspartate Amino Transf (AST/SGOT) 24, Alanine Aminotransferase (ALT/SGPT) 19, Alkaline Phosphatase 74, Total Protein 5.6, Albumin 3.0 08/16/21 12:15: White Blood Count 13.5, Red Blood Count 2.82, Hemoglobin 9.7, Hematocrit 28, Mean Corpuscular Volume 101, Mean Corpuscular Hemoglobin 34, Mean Corpuscular Hemoglobin Concent 34, Red Cell Distribution Width 13.6, Platelet Count 216, Mean Platelet Volume 9.3, Immature Granulocyte % (Auto) 1, Neutrophils (%) (Auto) 81, Lymphocytes (%) (Auto) 10, Monocytes (%) (Auto) 8, Eosinophils (%) (Auto) 0, Basophils (%) (Auto) 0, Neutrophils # (Auto) 10.9, Lymphocytes # (Auto) 1.4, Monocytes # (Auto) 1.0, Eosinophils # (Auto) 0.0, Basophils # (Auto) 0.0, Immature Granulocyte # (Auto) 0.1, Sodium Level 131, Potassium Level 3.9, Chloride Level 102, Carbon Dioxide Level 17, Anion Gap 12, Blood Urea Nitrogen 16, Creatinine 1.09, Estimat Glomerular Filtration Rate 69, BUN/Creatinine Ratio 15, Glucose Level 99, Calcium Level 8.5, Corrected Calcium 9.1, Total Bilirubin 0.6, Aspartate Amino Transf (AST/SGOT) 29, Alanine Aminotransferase (ALT/SGPT) 27, Alkaline Phosphatase 76, Total Protein 6.0, Albumin 3.2, Lactic Acid Level 1.04, Procalcitonin 0.06 08/16/21 13:25: Urine Color ORANGE, Urine Clarity CLEAR, Urine pH 5.5, Urine Specific [place] 1.025, Urine Protein NEGATIVE, Urine Glucose (UA) NEGATIVE, Urine Ketones NEGATIVE, Urine Nitrite NEGATIVE, Urine Bilirubin NEGATIVE, Urine Urobilinogen 0.2, Urine Leukocyte Esterase NEGATIVE, Urine RBC (Auto) TRACE-I, Urine RBC 10- 25, Urine WBC 2-5, Urine Squamous Epithelial Cells RARE, Urine Crystals PRESENT, Urine Calcium Oxalate Crystals RARE, Urine Bacteria TRACE, Urine Casts PRESENT, Urine Hyaline Casts RARE, Urine Mucus NEGATIVE, Urine Culture Indicated NO 08/16/21 14:40: Influenza Type A (RT-PCR) Not Detected, Influenza Type B (RT-PCR) Not Detected, SARS-CoV-2 RNA (RT-PCR) Not Detected 08/20/21 06:43: White Blood Count 9.0, Red Blood Count 2.89, Hemoglobin 9.9, Hematocrit 29, Mean Corpuscular Volume 100, Mean Corpuscular Hemoglobin 34, Mean Corpuscular Hemoglobin Concent 34, Red Cell Distribution Width 13.5, Platelet Count 209, Mean Platelet Volume 9.1, Immature Granulocyte % (Auto) 0, Neutrophils (%) (Auto) 73, Lymphocytes (%) (Auto) 14, Monocytes (%) (Auto) 10, Eosinophils (%) (Auto) 3, Basophils (%) (Auto) 0, Neutrophils # (Auto) 6.5, Lymphocytes # (Auto) 1.2, Monocytes # (Auto) 0.9, Eosinophils # (Auto) 0.2, Basophils # (Auto) 0.0, Immature Granulocyte # (Auto) 0.0, Sodium Level 134, Potassium Level 3.7, Chloride Level 101, Carbon Dioxide Level 23, Anion Gap 10, Blood Urea Nitrogen 7, Creatinine 0.80, Estimat Glomerular Filtration Rate 90, BUN/Creatinine Ratio 9, Glucose Level 106, Calcium Level 8.7, Corrected Calcium 9.6, Total Bilirubin 0.8, Aspartate Amino Transf (AST/SGOT) 32, Alanine Aminotransferase (ALT/SGPT) 31, Alkaline Phosphatase 81, Total Protein 5.7, Albumin 2.9, Procalcitonin 0.04 08/23/21 07:31: White Blood Count 7.6, Red Blood Count 3.01, Hemoglobin 10.3, Hematocrit 30, Mean Corpuscular Volume 100, Mean Corpuscular Hemoglobin 34, Mean Corpuscular Hemoglobin Concent 34, Red Cell Distribution Width 13.7, Platelet Count 299, Mean Platelet Volume 9.1, Immature Granulocyte % (Auto) 0, Neutrophils (%) (Auto) 72, Lymphocytes (%) (Auto) 16, Monocytes (%) (Auto) 8, Eosinophils (%) (Auto) 3, Basophils (%) (Auto) 1, Neutrophils # (Auto) 5.5, Lymphocytes # (Auto) 1.2, Monocytes # (Auto) 0.6, Eosinophils # (Auto) 0.2, Basophils # (Auto) 0.1, Immature Granulocyte # (Auto) 0.0, Sodium Level 134, Potassium Level 4.0, Chloride Level 100, Carbon Dioxide Level 25, Anion Gap 9, Blood Urea Nitrogen 5, Creatinine 0.85, Estimat Glomerular Filtration Rate 88, BUN/Creatinine Ratio 6, Glucose Level 116, Calcium Level 9.3, Corrected Calcium 9.9, Total Bilirubin 0.6, Aspartate Amino Transf (AST/SGOT) 28, Alanine Aminotransferase (ALT/SGPT) 31, Alkaline Phosphatase 89, Total Protein 6.6, Albumin 3.3, Procalcitonin 0.03 08/23/21 16:30: Urine Color BROWN, Urine Clarity SL CLOUDY, Urine pH 5.5, Urine Specific [place] 1.020, Urine Protein TRACE, Urine Glucose (UA) NEGATIVE, Urine Ketones NEGATIVE, Urine Nitrite NEGATIVE, Urine Bilirubin NEGATIVE, Urine Urobilinogen 0.2, Urine Leukocyte Esterase NEGATIVE, Urine RBC (Auto) NEGATIVE, Urine RBC RARE, Urine WBC RARE, Urine Crystals PRESENT, Urine Calcium Oxalate Crystals RARE, Urine Bacteria NEGATIVE, Urine Casts PRESENT, Urine Hyaline Casts RARE, Urine Mucus SMALL, Urine Culture Indicated NO 08/24/21 05:29: White Blood Count 6.6, Red Blood Count 2.75, Hemoglobin 9.3, Hematocrit 28, Mean Corpuscular Volume 101, Mean Corpuscular Hemoglobin 34, Mean Corpuscular Hemoglobin Concent 34, Red Cell Distribution Width 13.8, Platelet Count 259, Mean Platelet Volume 8.7 Discharge Home Medications: Active Scripts Active Vitamin D3 (Cholecalciferol (Vitamin D3)) 25 Mcg (1000 Unit) Tablet 25 Mcg PO DAILY Lotrimin AF (Miconazole Nitrate) 2 % Powder 0 Gm TOP BID Sucralfate 1 Gram Tablet 1 Gm PO ACHS Reported Metoprolol Succinate 50 Mg Tab.er.24h 50 Mg PO DAILY [place] 3 1,000 mg Softgel ([place]-3 Fatty Acids/Fish Oil) 300 Mg-1,000 Mg Capsule 1 Each PO HS Lisinopril 5 Mg Tablet 2.5 Mg PO BID TAKES 1/2 OF (5MG) TAB Allopurinol 100 Mg Tablet 100 Mg PO HS Potassium Gluconate 595 Mg (99 Mg) Tablet.er 99 Mg PO DAILY Vitamin B Complex-Vitamin C (B-Complex with Vitamin C) 1 Each Tablet 1 Each PO DAILY Calcium 600-D3 20Mcg(800 Unit) (Calcium Carbonate/Vitamin D3) 600 Mg Calcium-20 Mcg (800 Unit) Tablet 1 Each PO HS Multaq (Dronedarone HCl) 400 Mg Tablet 400 Mg PO BID Hydrocodone-Acetamin 10-325 mg (Hydrocodone/Acetaminophen) 1 Each Tablet 1-2 Ea PO Q6H PRN Ranolazine ER (Ranolazine) 1,000 Mg Tab.er.12h 1,000 Mg PO BID Centrum Silver Ultra Men's Tab (Multivit-Min/FA/Lycopene/Lut) 1 Each Tablet 1 Each PO DAILY Atorvastatin Calcium 40 Mg Tablet 40 Mg PO HS Magnesium (Magnesium Oxide) 400 Mg Tablet 400 Mg PO HS Eliquis (Apixaban) 5 Mg Tablet 5 Mg PO BID Pantoprazole Sodium 40 Mg Tablet.dr 40 Mg PO DAILY Levothyroxine Sodium 50 Mcg Tablet 50 Mcg PO DAILY Aspirin EC (Aspirin) 81 Mg Tablet.dr 81 Mg PO HS Doxazosin Mesylate 4 Mg Tablet 4 Mg PO HS Allopurinol 100 Mg Tablet 200 Mg PO DAILY TAKES 2 (100MG) TABS Instructions to patient/family Please see electronic discharge instructions given to patient. Diagnosis/Problems Diagnosis/Problems (1) Myopathy (2) CAD (coronary artery disease) ABIEL SAUNDERS DO August 24, 2021 06:01
[2021-08-24 07:40] VITALS: BP 132/63
--- NOTE | 2021-08-24 08:14 | Therapy Team Discharge Summary ---
Therapy Discharge Summary Discharge Recommendations Date of Discharge Physical Therapy Roll Left to Right (QC): 6 Sit to Lying (QC): 4 (SBA) Lying to Sitting/Side of Bed(Q: 4 Sit to Stand (QC): 4 Chair/Wff-un-Fropo Xfer(QC): 4 (SBA) Toilet Transfer (QC): 6 Car Transfer (QC): 4 (SBA) Does the Patient Walk: Yes Mode of Locomotion: Walk Anticipated Mode of Locomotion: Walk Walk 10 feet (QC): 4 Walk 50 ft with 2 Turns(QC): 4 Walk 150 ft (QC): 4 (CGA) Walking 10ft on uneven surface: 4 (CGA) Distance: 50'x2, 20', 75' Gait Assistive Device: FWW Does the Pt Use a Wheelchair: No Wheel 50 ft with 2 turns (QC): 9 Wheel 150 ft (QC): 9 Type of Wheelchair: N/A #of Steps: 12 1 Step (curb) (QC): 4 (CGA) 4 Steps (QC): 4 (CGA) 12 Steps (QC): 4 (CGA) Walking Assistive Device: Walker Balance Sitting Static: Good Balance Sitting Dynamic: Good Balance-Standing Static: Fair Picking up an Object (QC): 4 (SBA using manager stylist) Occupational Therapy Pt admitted to ARU with non traumatic spinal cord dysfunction. At [facility], pt was independent with ADLs and functional mobility using SPC. Upon initial evaluation, pt required supervision with eating, min A upper body dressing, and max A with showering, lower body dressing, footwear and toileting. OT Tx focused on increasing safety and independence with ADLs and functional mobility, and increasing BUE strength and activity tolerance. Pt made progress towards goals, but only attained LTGs for showering and upper body dressing. Pt to discharge home with spouse on this date, d/c from OT. Decreased Activ Tolerance, Decreased UE Strength, Impaired Funct Balance, Impaired I ADL's, Impaired Self-Care Skills Eating (QC): 5 (set up with containers and cutting food.) Oral Hygiene (QC): 88 Shower/Bathe Self (QC): 5 (set up at SC) Upper Body Dressing (QC): 5 (set up) Lower Body Dressing (QC): 4 (SBA in stand for clothing management, & SBA to maintain back precautions) On/Off Footwear (QC): 4 (SBA to maintain precations.) Toileting Hygiene (QC): 4 (SBA in stand for clothing management.) PT [employer] Goals [employer] Goals PT [employer] Goals Time Frame: September 04, 2021 Roll Left to Right (QC): 6 Sit to Lying (QC): 6 Lying-Sitting on Side/Bed(QC): 6 Sit to Stand (QC): 6 Chair/Fot-dn-Yiidy Xfer(QC): 6 Car Transfer (QC): 6 Does the Patient Walk: Yes Walk 10 feet (QC): 6 Walk 10ft-Uneven Surface(QC): 6 Walk 50ft with 2 Turns (QC): 6 Walk 150 ft (QC): 6 Does the Pt use WC or Scooter?: No Wheel 50 feet with 2 turns (QC: 9 1 Step (curb) (QC): 6 4 Steps (QC): 4 (SBA) 12 Steps (QC): 4 (CGA) Picking up an Object (QC): 6 OT [employer] Goals Fdc Goals Time Frame: September 04, 2021 Eating (QC): 6 (not met) Oral Hygiene (QC): 88 Shower/Bathe Self (QC): 5 (met) Upper Body Dressing (QC): 5 (met) Lower Body Dressing (QC): 5 (not met) On/Off Footwear (QC): 5 (not met) Toileting Hygiene (QC): 6 (not met) Toilet/Commode Transfer (QC): 6 1=Demonstrate adherence to instructed precautions during ADL tasks. 2=Patient will verbalize/demonstrate understanding of assistive devices/modifications for ADL. 3=Patient will improve strength/tolerance for activity to enable patient to perform ADL's. ARLENE JULIO OT August 24, 2021 08:14
--- NOTE | 2021-08-24 08:18 | Therapy Team Discharge Summary ---
Therapy Discharge Summary Discharge Recommendations Date of Discharge Physical Therapy Patient came to rehab with Non-traumatic spinal cord dysfunction. Upon evaluation patient performed rolling with independence, supine <-> sit SBA, sit <-> stand CGA, transfers and car transfer SBA, ambulated 75' with a rolling wa lker with CGA (including 50' with at least 2 turns of 90 degrees and 10' over an uneven surface), went up and down 1 step using a rolling walker with CGA, and picked up an object from the floor with CGA using a change control manager. Patient has been performing bed mobility and transfer training, balance and endurance training, functional strengthening, stair training, gait training, and education. Patient has made some progress but has only met his nursing home goals for stairs and rolling. Now, patient performs rolling with independence, supine <-> sit SBA, sit <-> stand and transfers SBA, car transfer SBA, ambulates 150' with a rolling walker with CGA (including 50' with at least 2 turns of 90 degrees and 10' over an uneven surface), can go up and down 12 steps using 2 handrails with CGA, and can black pickler an object from the floor with a change control manager with SBA. Patient is being discharged from this facility today and will be discharged from PT at this time. Roll Left to Right (QC): 6 Sit to Lying (QC): 4 (SBA) Lying to Sitting/Side of Bed(Q: 4 Sit to Stand (QC): 4 Chair/Tbt-sj-Jevtx Xfer(QC): 4 (SBA) Toilet Transfer (QC): 6 Car Transfer (QC): 4 (SBA) Does the Patient Walk: Yes Mode of Locomotion: Walk Anticipated Mode of Locomotion: Walk Walk 10 feet (QC): 4 Walk 50 ft with 2 Turns(QC): 4 Walk 150 ft (QC): 4 (CGA) Walking 10ft on uneven surface: 4 (CGA) Distance: 50'x2, 20', 75' Gait Assistive Device: FWW Does the Pt Use a Wheelchair: No Wheel 50 ft with 2 turns (QC): 9 Wheel 150 ft (QC): 9 Type of Wheelchair: N/A #of Steps: 12 1 Step (curb) (QC): 4 (CGA) 4 Steps (QC): 4 (CGA) 12 Steps (QC): 4 (CGA) Walking Assistive Device: Walker Balance Sitting Static: Good Balance Sitting Dynamic: Good Balance-Standing Static: Fair Picking up an Object (QC): 4 (SBA using change control manager) Occupational Therapy Decreased Activ Tolerance, Decreased UE Strength, Impaired Funct Balance, Impaired I ADL's, Impaired Self-Care Skills Eating (QC): 5 (set up with containers and cutting food.) Oral Hygiene (QC): 88 Shower/Bathe Self (QC): 5 (set up at SC) Upper Body Dressing (QC): 5 (set up) Lower Body Dressing (QC): 4 (SBA in stand for clothing management, & SBA to maintain back precautions) On/Off Footwear (QC): 4 (SBA to maintain precations.) Toileting Hygiene (QC): 4 (SBA in stand for clothing management.) PT Retirement Goals Retirement Goals PT Criminal [employer] Chair Goals Time Frame: September 04, 2021 Roll Left to Right (QC): 6 Sit to Lying (QC): 6 Lying-Sitting on Side/Bed(QC): 6 Sit to Stand (QC): 6 Chair/Hcp-jr-Xjgiv Xfer(QC): 6 Car Transfer (QC): 6 Does the Patient Walk: Yes Walk 10 feet (QC): 6 Walk 10ft-Uneven Surface(QC): 6 Walk 50ft with 2 Turns (QC): 6 Walk 150 ft (QC): 6 Does the Pt use WC or Scooter?: No Wheel 50 feet with 2 turns (QC: 9 1 Step (curb) (QC): 6 4 Steps (QC): 4 (SBA) 12 Steps (QC): 4 (CGA) Picking up an Object (QC): 6 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 2=Patient will verbalize/demonstrate understanding of assistive device s/modifications for ADL. 3=Patient will improve strength/tolerance for activity to enable patient to perform ADL's. REED ROMAN PT August 24, 2021 08:18
--- NOTE | 2021-08-24 09:18 | Cardiology Progress Note ---
Subjective Date Seen by Provider: August 24, 2021 Time Seen by Provider: 09:17 Subjective/Events-last exam Patient is laying down in bed, had recurrent fever last night. Review of Systems General: No Chills, No Night Sweats; Fatigue, Malaise; No Appetite, No Other HEENT: No Head Aches, No Visual Changes, No Eye Pain, No Ear Pain, No Dysphasia, No Sinus Congestion, No Post Nasal Drip, No Sore Throat, No Other Pulmonary: Dyspnea; No Cough, No Pleuritic Chest Pain, No Other Cardiovascular: No: Chest Pain, Palpitations, Orthopnea, Paroxysmal Noc. Dyspnea, Edema, Lt Headedness, Other Objective-Cardiology Exam Last Set of Vital Signs Vital Signs 08/24/21 07:40 Temp 36.7 Pulse 69 Resp 18 B/P (MAP) 132/63 (86) Pulse Ox 98 O2 Delivery Room Air General: Alert, Oriented X3, Cooperative HEENT: Atraumatic, PERRLA, Other (Complaint of neck pain) Neck: Supple, No JVD, No Thyromegaly Lungs: Clear to Auscultation, Normal Air Movement Heart: Regular Rate, Normal S1, Normal S2, No Murmurs Abdomen: Normal Bowel Sounds, Soft, No Tenderness, No Hepatosplenomegaly, No Masses Extremities: No Clubbing, No Cyanosis, No Edema, Normal Pulses, No Tenderness/Swelling Skin: No Rashes, No Breakdown, No Significant Lesion Neuro: Normal Gait, Normal Speech, Normal Tone, Sensation Intact, Other (Weakness and numbness in the upper extremities) Psych/Mental Status: Mental Status NL, Mood NL Results Lab Laboratory Tests 08/24/21 05:29 A/P-Cardiology Admission Diagnosis CAD PAF CHF HTN Assessment/Plan Low-grade fever, patient has been having recurrent episodes of low-grade temperature every night. No source of infection was identified. I am concerned about surgical site infection. Blood culture were drawn on August 23, 2021 Recommend discussing with ID or surgeon regarding antibiotic coverage empirically S/p Lumbar spine surgery with Dr. Hernández at [facility] on 07/24/21. Had another procedure done 08/03/21 d/t post operative CSF leak. Having generalized debility/weakness, continue with PT Supraventricular tachycardia, paroxysmal atrial flutter with rapid ventricular response, first documented on February 13, 2018 underwent JIMY with cardioversion. S/p ablation with Dr. Martines on 03/16/18. Asymptomatic. Started on Multaq, will continue to monitor History of loop monitor implant, showing occasional episodes of atrial fibrillat ion, short episodes. Continue to monitor Chest pain, history of chronic stable angina, intolerant to NTG with severe headache, tolerating Ranexa, Denies any recent chest pain. Will continue to monitor. Coronary artery disease, status post CABG x3 in 2001. Cardiac catheterization done April 2016 revealing a difficult anatomy was unable to evaluate left coronary system done within the show left heart catheterization. Patent vein graft to the diagonal artery and obtuse marginal branch artery. Occluded small RCA with collateral filling the distal right from the left system. Another angiogram done on April 18, 2016 revealing patent RODRIGUEZ to LAD. Patient did have severe stenosis of the ostium of the left subclavian artery. Underwent stenting to the left subclavian artery. Cardiac catheterization was carried out on February 21, 2021 after having an abnormal stress test which showed severe [place] coronary artery disease involving all his [place] arteries. The vein graft to the circumflex artery is occluded, the right coronary artery is a small artery that is not bypassed and not amendable to intervention, the vein graft to the diagonal artery is patent with good flow distally, the RODRIGUEZ to the LAD was not visualized due to the fact that the left subclavian stent was protruding in the aortic arch. Normal left ventricular function. CHF, chronic left ventricular systolic dysfunction, 2D echocardiogram was done on February 20, 2021 showing normal LV size, mild LVH, EF 50 to 55%, left atrium 4.1 cm, mild MR, mild AR, PA 30 to 35 mmHg. Continue to monitor Left subclavian artery stenosis-patient underwent left subclavian angiography with left subclavian balloon angioplasty and left subclavian stenting on 04/18/16 using Omnilink 08 stent 9 x 29 x 80 mm with lesion well covered in significant reduction in stenosis severity noted. There was 5-10 percent residue stenosis, however, there were a few stent struts protruding into the aortic arch. Maintained on Plavix and ASA. Continue to monitor Hypertension, labile hypertension, blood pressure medications discontinued d/t hypotension. Hyperlipidemia, lipid profile done on February 21, 2021 showing total cholesterol 147, triglyceride 137, HDL 46, LDL 77. Continue to monitor Constipation, started on stool softeners, prune juice Tobaccoism-educated on the importance of smoking cessation. Carotid artery stenosis-mild nonobstructive disease per carotid duplex done in April 2020, continue to monitor History of malignant melanoma, followed and managed by Dr. Nelson History of prostate cancer, followed and managed by Dr. Nelson. 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 KAYLEY LAMBERT MD August 24, 2021 09:18
[2021-08-24] MEDS: DRONEDARONE 400 MG TABLET PO SCH (10:02)
[2021-08-24] MEDS: RANOLAZINE ER 500 MG TAB (RANEXA) PO SCH (10:02)
[2021-08-24] MEDS: VITAMIN D3 25 MCG (1,000 UNITS) TABLET PO SCH (10:02)
[2021-08-24] MEDS: PANTOPRAZOLE 40 MG (PROTONIX) TAB PO SCH (10:02)
[2021-08-24] MEDS: ALLOPURINOL 100 MG (ZYLOPRIM) TAB PO SCH (10:03)
[2021-08-24] MEDS: ZINC SULFATE 220 MG CAPSULE PO SCH (10:03)
[2021-08-24] MEDS: APIXABAN 5 MG (ELIQUIS) TABLET PO SCH (10:03)
[2021-08-24 11:45] VITALS: BP 132/63
[2021-08-24] MEDS: DOCUSATE SODIUM 100 MG (COLACE) CAP PO SCH (17:12)
[2021-08-24] MEDS: SENNA W/DOCUSATE (SENOKOT S) TABLET PO SCH (17:12)
[2021-08-24] MEDS: polyethylene glycoL POWDER 17 GM (MIRALAX) PACK PO SCH (17:12)
[2021-08-24] MEDS: MICONAZOLE 2% POWDER (DESENEX AF) 90 GM TOP SCH (17:13)
[2021-08-24] MEDS: MUPIROCIN 2% OINT 22 GM (BACTROBAN) TUBE TOP SCH (17:13)
== END 2021-08-24 11:30 | disposition home health service (06) | DRG 92 ==
PROVIDERS: ADMIT Internal Medicine; ATTEND Internal Medicine
DX: G72.81 Critical illness myopathy (principal); I25.719 Atherosclerosis of autologous vein coronary artery bypass graft(s) with unspecified angina pectoris; D62 Acute posthemorrhagic anemia; I47.1 Supraventricular tachycardia; I50.22 Chronic systolic (congestive) heart failure; I48.0 Paroxysmal atrial fibrillation; I25.119 Atherosclerotic heart disease of native coronary artery with unspecified angina pectoris; I95.1 Orthostatic hypotension; Z20.822 Contact with and (suspected) exposure to COVID-19; J44.9 Chronic obstructive pulmonary disease, unspecified; F17.210 Nicotine dependence, cigarettes, uncomplicated; E78.00 Pure hypercholesterolemia, unspecified; E78.5 Hyperlipidemia, unspecified; I11.0 Hypertensive heart disease with heart failure; K21.9 Gastro-esophageal reflux disease without esophagitis; I08.0 Rheumatic disorders of both mitral and aortic valves; G47.33 Obstructive sleep apnea (adult) (pediatric); E03.9 Hypothyroidism, unspecified; M54.9 Dorsalgia, unspecified; M19.91 Primary osteoarthritis, unspecified site; M10.9 Gout, unspecified; Z91.81 History of falling; L30.9 Dermatitis, unspecified; R50.9 Fever, unspecified; R19.7 Diarrhea, unspecified; F41.9 Anxiety disorder, unspecified; Z95.5 Presence of coronary angioplasty implant and graft; Z95.1 Presence of aortocoronary bypass graft; Z98.1 Arthrodesis status; Z85.46 Personal history of malignant neoplasm of prostate; Z79.01 Long term (current) use of anticoagulants; Z79.82 Long term (current) use of aspirin
CPT/HCPCS: 36415; 71045; 72100; 80053; 81000; 83605; 84145; 85025; 85027; 87040; 87636; 94760

== ENCOUNTER 2021-10-10 15:22 | Inpatient (IN) | payer MEDICARE, BC ==
[~2021-10-10] VITALS: Ht 182.9 cm; Wt 90.0 kg
[~2021-10-10 15:22] MED LIST changes: +B-CO1TAB2 PO; +CALC-1067 PO; +CHOL-34 PO; +MICO90PO TOP; +OMEG1CAP58 PO; +POTA99TA18 PO; +SUCR1TAB PO
[2021-10-10 16:02] LABS: ALBUMIN 3.9 GM/DL (3.2-4.5); BASOPHILS % (AUTO) 0 % (0-10); EOSINOPHILS % (AUTO) 0 % (0-10); HEMATOCRIT 38 % (40-54); HEMOGLOBIN 12.5 g/dL (13.3-17.7); LYMPHOCYTES # (AUTO) 2.6 X 10^3 (1.0-4.0); LYMPHOCYTES % (AUTO) 25 % (12-44); MEAN CORPUSCULAR HEMOGLOBIN 33 pg (25-34); MEAN CORPUSCULAR HGB CONC 33 g/dL (32-36); MEAN CORPUSCULAR VOLUME 99 fL (80-99); MONOCYTES # (AUTO) 0.7 X 10^3 (0.0-1.0); MONOCYTES % (AUTO) 7 % (0-12); NEUTROPHILS # (AUTO) 7.1 X 10^3 (1.8-7.8); NEUTROPHILS % (AUTO) 68 % (42-75); PLATELET COUNT 278 10^3/uL (130-400); POTASSIUM 4.5 MMOL/L (3.6-5.0); WHITE BLOOD COUNT 10.4 10^3/uL (4.3-11.0)
[2021-10-10 16:03] LABS: CALCIUM 9.3 MG/DL (8.5-10.1)
[2021-10-10 16:06] LABS: BILIRUBIN,TOTAL 0.7 MG/DL (0.1-1.0)
[2021-10-10 16:08] LABS: CREATININE SERUM 1.14 MG/DL (0.60-1.30); INR 1.1 (0.8-1.4); PROTHROMBIN TIME PATIENT 14.6 SEC (12.2-14.7)
[2021-10-10] MEDS ORDERED: ACETAMINOPHEN 500 MG TAB (TYLENOL) PO ONE (16:15)
--- NOTE | 2021-10-10 16:55 | Diagnostic Imaging Report ---
INDICATION: Fever and confusion. COMPARISON: 08/16/2021. FINDINGS: A single frontal radiographic view of the chest was obtained and demonstrates normal cardiac silhouette and pulmonary vasculature. Sternotomy wires are noted. Lungs continue to show diffuse coarse prominence of the interstitium. There is no large effusion or pneumothorax. Osseous structures show no gross acute abnormalities. IMPRESSION: 1. Redemonstration of diffuse coarse interstitial opacities which are felt to be on the basis of chronic interstitial lung disease. 2. Otherwise, no new acute cardiopulmonary process. Dictated by: Dictated on workstation # [id number]
[2021-10-10 17:07] LABS: BILIRUBIN,URINE NEGATIVE (NEGATIVE); CLARITY,URINE CLEAR; COLOR,URINE YELLOW; GLUCOSE, URINE (UA) NEGATIVE (NEGATIVE); KETONES,URINE NEGATIVE (NEGATIVE); LEUKOCYTE ESTERASE ,URINE NEGATIVE (NEGATIVE); NITRITE,URINE NEGATIVE (NEGATIVE); PROTEIN,URINE NEGATIVE (NEGATIVE)
[2021-10-10 17:18] LABS: BACTERIA,URINE TRACE /HPF
--- NOTE | 2021-10-10 18:38 | Diagnostic Imaging Report ---
EXAMINATION: CT head and CT cervical spine without contrast. TECHNIQUE: Multiple contiguous axial images were obtained through the brain and cervical spine without the use of intravenous contrast. Sagittal and coronal reformations through the cervical spine were then performed. All CT scans use one or more of the following dose optimizing techniques: automated exposure control, MA and/or KvP adjustment based on patient size and exam type or iterative reconstruction. HISTORY: Neck pain after injury. COMPARISON: 08/11/2017. FINDINGS: CT HEAD: Mild diffuse cerebral volume loss with proportional enlargement of the ventricles and sulci. Mild hypodensities throughout the supratentorial white matter of both cerebral hemispheres. No acute intracranial hemorrhage or abnormal extra-axial fluid collections are present. Calcification of the intracranial ICAs. No hyperdense vessel. The calvarium is intact. The mastoid air cells are clear. Mucosal thickening of the paranasal sinuses. The orbits are normal. CT CERVICAL SPINE: There is grade 1 anterolisthesis of C3 on C4. There is partial fusion of C6 and C7. Grade 1 anterolisthesis of C7 on T1. There is multilevel facet hypertrophy without perched facets. There is multilevel cervical spondylosis. The paraspinous soft tissues are normal. The visualized thyroid gland is normal. The visualized lung apices are normal. IMPRESSION: 1. No acute intracranial abnormality. Chronic microangiopathy and volume loss. 2. Multilevel degenerative changes of the cervical spine without acute osseous abnormality. Dictated by: Dictated on workstation # [id number]
--- NOTE | 2021-10-10 18:49 | ED General ---
General Chief Complaint: Fever-Adult/Adol Stated Complaint: FEVER Nursing Triage Note: pt to ed by cr co ems with c/o fever and confusion. 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 pt able to state name and birthday and that he smokes cigarettes, unable to answer further questions. Source of Information: Patient, EMS, Family Exam Limitations: Other (Disoriented) History of Present Illness Date Seen by Provider: Oct 10, 2021 Time Seen by Provider: 15:24 Initial Comments This 81-year-old gentleman presents to the emergency room via EMS from home where he was found to be disoriented and febrile with temp up to 101 about 3 hours ago per his . later arrives to the emergency room and elaborates on his history. He had an L2-4 surgery in July and he developed complications of spinal fluid leak. He had a prolonged course of hospital care. She reports he required corrective surgery to place a patch. After leaving [facility] he was admitted to Acute Rehab at [facility] in [place]. He was discharged to their mid August. He has been home since that time and has experienced intermittent fevers, hypotension, confusion, and weakness. He has had multiple falls including at least 2 falls in the last week. She states he did strike his head. After obtaining this history of c-collar was applied. No trauma had been reported by EMS. Patient denied any notable pain on exam. He is oriented to some questions but not others. He is responsive to questioning. Temperature on arrival was 39.5. She states he normally drinks very well but has not been drinking well the last 24 hours. His urine has become dark. Patient's reports imaging of the neck has been obtained since discharge from the hospital but no repeat imaging of the lumbar spine has been obtained. Patient has a known history of paroxysmal atrial fibrillation. On the monitor he is having brief runs of A. fib. He is anticoagulated on Eliquis but did not take his medications this morning. Allergies and Home Medications Allergies Coded Allergies: No Known Drug Allergies (Verified , 02/23/08) Patient Home Medication List Home Medication List Reviewed: Yes Allopurinol (Allopurinol) 100 Mg Tablet, 200 MG PO DAILY, (Reported) Entered as Reported by: JONE GOINS on 11/26/17 0852 Allopurinol (Allopurinol) 100 Mg Tablet, 100 MG PO HS, (Reported) Entered as Reported by: BHANU SIMONS on 08/14/21 1359 Apixaban (Eliquis) 5 Mg Tablet, 5 MG PO BID, (Reported) Entered as Reported by: JONE GOINS on 03/16/18 1003 Aspirin (Aspirin EC) 81 Mg Tablet.dr, 81 MG PO HS, (Reported) Entered as Reported by: CONCHA HUANG on 02/13/18 1611 Atorvastatin Calcium (Atorvastatin Calcium) 40 Mg Tablet, 40 MG PO HS, (Reported) Entered as Reported by: FAUSTINA GARCIA on 10/22/19 1654 B-Complex with Vitamin C (Vitamin B Complex-Vitamin C) 1 Each Tablet, 1 EACH PO DAILY, (Reported) Entered as Reported by: BHANU SIMONS on 08/14/21 1359 Calcium Carbonate/Vitamin D3 (Calcium 600-D3 20Mcg(800 Unit)) 600 Mg Calcium-20 Mcg (800 Unit) Tablet, 1 EACH PO HS, (Reported) Entered as Reported by: BHANU SIMONS on 08/14/21 1359 Cholecalciferol (Vitamin D3) (Vitamin D3) 25 Mcg (1000 Unit) Tablet, 25 MCG PO DAILY Prescribed by: ABIEL SAUNDERS on 08/23/21 1210 Doxazosin Mesylate (Doxazosin Mesylate) 4 Mg Tablet, 4 MG PO HS, (Reported) Entered as Reported by: JONE GOINS on 11/26/17 0855 Dronedarone HCl (Multaq) 400 Mg Tablet, 400 MG PO BID, (Reported) Entered as Reported by: BHANU SIMONS on 02/20/21 1209 Hydrocodone/Acetaminophen (Hydrocodone-Acetamin 10-325 mg) 1 Each Tablet, 1-2 EA PO Q6H PRN for PAIN-MODERATE (5-7), (Reported) Entered as Reported by: BHANU SIMONS on 02/20/21 1209 Levothyroxine Sodium (Levothyroxine Sodium) 50 Mcg Tablet, 50 MCG PO DAILY, (Reported) Entered as Reported by: CONCHA HUANG on 02/13/18 1611 Lisinopril (Lisinopril) 5 Mg Tablet, 2.5 MG PO BID, (Reported) Entered as Reported by: EDDIE LEWIS on 08/20/21 1348 Magnesium Oxide (Magnesium) 400 Mg Tablet, 400 MG PO HS, (Reported) Entered as Reported by: JONE GOINS on 03/16/18 1005 Metoprolol Succinate (Metoprolol Succinate) 50 Mg Tab.er.24h, 50 MG PO DAILY, (Reported) Entered as Reported by: EDDIE LEWIS on 08/20/21 1404 Miconazole Nitrate (Lotrimin AF) 2 % Powder, 0 GM TOP BID Prescribed by: ABIEL SAUNDERS on 08/23/21 1210 Multivit-Min/FA/Lycopene/Lut (Centrum Silver Ultra Men's Tab) 1 Each Tablet, 1 EACH PO DAILY, (Reported) Entered as Reported by: BHANU SIMONS on 02/20/21 1209 Galt-3 Fatty Acids/Fish Oil (Galt 3 1,000 mg Softgel) 300 Mg-1,000 Mg Capsule, 1 EACH PO HS, (Reported) Entered as Reported by: EDDIE LEWIS on 08/20/21 1353 Pantoprazole Sodium (Pantoprazole Sodium) 40 Mg Tablet.dr, 40 MG PO DAILY, (Reported) Entered as Reported by: CONCHA HUANG on 02/13/18 1611 Potassium Gluconate (Potassium Gluconate) 595 Mg (99 Mg) Tablet.er, 99 MG PO DAILY, (Reported) Entered as Reported by: BHANU SIMONS on 08/14/21 1359 Ranolazine (Ranolazine ER) 1,000 Mg Tab.er.12h, 1,000 MG PO BID, (Reported) Entered as Reported by: BHANU SIMONS on 02/20/21 1209 Sucralfate (Sucralfate) 1 Gram Tablet, 1 GM PO ACHS Prescribed by: ABIEL SAUNDERS on 08/23/21 1210 Review of Systems Review of Systems Constitutional: see HPI EENTM: no symptoms reported Respiratory: no symptoms reported Cardiovascular: see HPI Gastrointestinal: see HPI Genitourinary: no symptoms reported Musculoskeletal: see HPI Skin: no symptoms reported Psychiatric/Neurological: See HPI Hematologic/Lymphatic: No Symptoms Reported Immunological/Allergic: no symptoms reported Past Axfpbsl-Vsuufb-Uyarqg Hx Patient Social History Tobacco Use?: No Use of E-Cig and/or Vaping dev: No Substance use?: No Alcohol Use?: No Immunizations Up To Date Tetanus Booster (TDap): More than 5yrs First/Initial COVID19 Vaccinat: JUNE 2020 Second COVID19 Vaccination Toan: JULY 2020 Third COVID19 Vaccination Date: JUNE 2020 Seasonal Allergies Seasonal Allergies: No Past Medical History Surgery/Hospitalization HX: CABG x 4, SPINAL FUSION, PROSTATE CANCER, hernia, shingles, gout, CAD, afib,hypothryoidism, high lipids, gerd, heart stents x 7,pinched nerve Rt neck, Chronic back pain, EBER, home 02 @ 2 L n/c @ HS, Event monitor Surgeries: Yes (SPINE, HERNIA, PROSTATE, ) Abdominal, CABG, Coronary Stent, Orthopedic (Lumbar spinal fusion), Prostatectomy Respiratory: Yes Sleep Apnea Currently Using CPAP: Yes Currently Using BIPAP: No Cardiac: Yes Atrial Fibrillation, Coronary Artery Disease, High Cholesterol, Hypertension Neurological: No Reproductive Disorders: No Genitourinary: Yes (PROSTATE CANCER) Prostate Problems Gastrointestinal: Yes Abdominal Hernia, Gastroesophageal Reflux Musculoskeletal: Yes Arthritis, Chronic Back Pain, Gout Endocrine: Yes Hypothyroidsim HEENT: No Cancer: Yes Prostate, Skin Did You Recieve Any Treatments: Yes What Type of Treatment Did You: Radiation, Surgical Intervention Psychosocial: No Integumentary: No Blood Disorders: No Adverse Reaction/Blood Tranf: No Family Medical History Cardiovascular disease 19 MOTHER Myocardial infarction 19 FATHER Heart Disease, CAD Over 55 Years Old, Hypertension Physical Exam-Suspected Sepsis Physical Exam Vital Signs Vital Signs - First Documented 10/10/21 15:53 Temp 39.5 Pulse 129 Resp 25 B/P (MAP) 117/72 (87) Pulse Ox 92 O2 Delivery Room Air Capillary Refill : Less Than 3 Seconds Blood Pressure Mean: 87 Height, Weight, BMI Height: 6'0.00" Weight: 213lbs. 0.0oz. 96.145190nh; 30.00 BMI Method:Stated General Appearance: No Apparent Distress, WD/WN Eyes: Bilateral Eye Normal Inspection, Bilateral Eye PERRL, Bilateral Eye EOMI HEENT: PERRL/EOMI, Normal ENT Inspection, Other (Oropharynx pasty) Neck: Normal Inspection; No JVD Respiratory: Lungs Clear, No Accessory Muscle Use, Crackles (Right base) Cardiovascular: No Edema, No Murmur, Normal Peripheral Pulses, Irregularly Irregular (Intermittently irregular with runs of A. 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 Disoriented with some questions. GCS 14) Skin: normal color, warm/dry, other (Well-healed surgical scar on the lower back. No evidence of inflammation or abscess. Remainder of skin exam revealed no areas of abscess or obvious infection. Scrotal skin was mildly erythematous but not particularly tender to the touch.) Focused Exam Lactate Level 10/10/21 16:15: Lactic Acid Level 1.53 Lactic Acid Level Progress/Results/Core Measures Suspected Sepsis SIRS Temperature: Pulse: 129 Respiratory Rate: 25 Laboratory Tests 10/10/21 15:34: White Blood Count 10.4 Blood Pressure 117 /72 Mean: 87 10/10/21 16:15: Lactic Acid Level 1.53 Laboratory Tests 10/10/21 15:34: Creatinine 1.14, INR Comment 1.1, Platelet Count 278, Total Bilirubin 0.7 Results/Orders Lab Results Laboratory Tests Test 10/10/21 15:34 10/10/21 15:36 10/10/21 16:15 10/10/21 17:00 Range/Units White Blood Count 10.4 4.3-11.0 10^3/uL Red Blood Count 3.81 L 4.30-5.52 10^6/uL Hemoglobin 12.5 L 13.3-17.7 g/dL Hematocrit 38 L 40-54 % Mean Corpuscular Volume 99 80-99 fL Mean Corpuscular Hemoglobin 33 25-34 pg Mean Corpuscular Hemoglobin Concent 33 32-36 g/dL Red Cell Distribution Width 15.3 H 10.0-14.5 % Platelet Count 278 130-400 10^3/uL Mean Platelet Volume 9.0 9.0-12.2 fL Immature Granulocyte % (Auto) 0 % Neutrophils (%) (Auto) 68 42-75 % Lymphocytes (%) (Auto) 25 12-44 % Monocytes (%) (Auto) 7 0-12 % Eosinophils (%) (Auto) 0 0-10 % Basophils (%) (Auto) 0 0-10 % Neutrophils # (Auto) 7.1 1.8-7.8 X 10^3 Lymphocytes # (Auto) 2.6 1.0-4.0 X 10^3 Monocytes # (Auto) 0.7 0.0-1.0 X 10^3 Eosinophils # (Auto) 0.0 0.0-0.3 10^3/uL Basophils # (Auto) 0.0 0.0-0.1 10^3/uL Immature Granulocyte # (Auto) 0.0 0.0-0.1 10^3/uL Prothrombin Time 14.6 12.2-14.7 SEC INR Comment 1.1 0.8-1.4 Activated Partial Thromboplast Time 28 24-35 SEC Sodium Level 132 L 135-145 MMOL/L Potassium Level 4.5 3.6-5.0 MMOL/L Chloride Level 98 98-107 MMOL/L Carbon Dioxide Level 24 21-32 MMOL/L Anion Gap 10 5-14 MMOL/L Blood Urea Nitrogen 10 7-18 MG/DL Creatinine 1.14 0.60-1.30 MG/DL Estimat Glomerular Filtration Rate 65 BUN/Creatinine Ratio 9 Glucose Level 112 H 70-105 MG/DL Calcium Level 9.3 8.5-10.1 MG/DL Corrected Calcium 9.4 8.5-10.1 MG/DL Total Bilirubin 0.7 0.1-1.0 MG/DL Aspartate Amino Transf (AST/SGOT) 22 5-34 U/L Alanine Aminotransferase (ALT/SGPT) 21 0-55 U/L Alkaline Phosphatase 77 40-136 U/L C-Reactive Protein High Sensitivity 0.40 0.00-0.50 MG/DL Total Protein 7.0 6.4-8.2 GM/DL Albumin 3.9 3.2-4.5 GM/DL Procalcitonin 0.02 <0.10 NG/ML Influenza Type A (RT-PCR) Not Detected Not Detecte Influenza Type B (RT-PCR) Not Detected Not Detecte SARS-CoV-2 RNA (RT-PCR) Not Detected Not Detecte Lactic Acid Level 1.53 0.50-2.00 MMOL/L Urine Color YELLOW Urine Clarity CLEAR Urine pH 6.0 5-9 Urine Specific Mica 1.015 L 1.016-1.022 Urine Protein NEGATIVE NEGATIVE Urine Glucose (UA) NEGATIVE NEGATIVE Urine Ketones NEGATIVE NEGATIVE Urine Nitrite NEGATIVE NEGATIVE Urine Bilirubin NEGATIVE NEGATIVE Urine Urobilinogen 0.2 < = 1.0 MG/DL Urine Leukocyte Esterase NEGATIVE NEGATIVE Urine RBC (Auto) NEGATIVE NEGATIVE Urine RBC NONE /HPF Urine WBC 2-5 /HPF Urine Crystals NONE /LPF Urine Bacteria TRACE /HPF Urine Casts NONE /LPF Urine Mucus NEGATIVE /LPF Urine Culture Indicated CULTURE PENDING My Orders Orders - RADHA MACKEY MD Cbc With Automated Diff (10/10/21 15:37) Comprehensive Metabolic Panel (10/10/21 15:37) Blood Culture (10/10/21 15:37) Sputum Culture (10/10/21 15:37) Urinalysis (10/10/21 15:37) Urine Culture (10/10/21 15:37) Protime With Inr (10/10/21 15:37) Partial Thromboplastin Time (10/10/21 15:37) Chest 1 View, Ap/Pa Only (10/10/21 15:37) Ed Iv/Invasive Line Start (10/10/21 15:37) Vital Signs Adult Sepsis Patie Q15M (10/10/21 15:37) O2 (10/10/21 15:37) Remove Rings In Anticipation O (10/10/21 15:37) Lactic Acid Analyzer (10/10/21 15:37) Hs C Reactive Protein (10/10/21 15:37) Procalcitonin (Pct) (10/10/21 15:37) Covid 19 Inhouse Test (10/10/21 15:54) Influenza A And B By Pcr (10/10/21 15:54) Acetaminophen Tablet (Tylenol Tablet) (10/10/21 16:15) Ct Head/Cervical Spine Wo (10/10/21 17:55) Ct Thoracic/Lumbar Spine Wo (10/10/21 17:59) Ceftriaxone (Rocephin) (10/10/21 19:00) Ford Cath (10/10/21 20:08) Code/Resuscitation (10/10/21 20:09) Free T4 (Free Thyroxine) (10/10/21 20:16) Thyroid Stimulating Hormone (10/10/21 20:16) Acyclovir Injection (Zovirax Injection) (10/10/21 20:18) Medications Given in ED Current Medications Medications Dose Ordered Sig/Claudette Route Start Time Stop Time Status Last Admin Dose Admin Acetaminophen 1,000 mg ONCE ONCE PO 10/10/21 16:15 10/10/21 16:16 DC 10/10/21 16:11 1,000 MG Ceftriaxone Sodium 2000 mg/ Sodium Chloride 50 ml @ 100 mls/hr ONCE ONCE IV 10/10/21 19:00 10/10/21 19:29 DC 10/10/21 19:15 100 MLS/HR Vital Signs/I&O 10/10/21 10/10/21 15:53 18:37 Temp 39.5 36.5 Pulse 129 Resp 25 B/P (MAP) 117/72 (87) Pulse Ox 92 O2 Delivery Room Air Capillary Refill : Less Than 3 Seconds Blood Pressure Mean: 87 Progress Note #1: Time: 19:00 Progress Note Presentation is rather convoluted. Patient has been having intermittent episodes like this since being discharged from the hospital about 6 weeks ago. However, this episode seems to be worse. Although he presents clinically with a sepsis picture including fever, tachycardia, and soft blood pressures, he demonstrates no source of infection and his labs are not reflective of sepsis. He is being given Rocephin 2 g IV empirically. Blood cultures have been obtai babak. 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 C- collar was cleared after review of CT imaging reports. Progress Note #2: Time: 20:31 Progress Note Lumbar puncture was considered as next step for evaluation of fever and possible infection. This was discussed with Dr. Ventura, neurosurgeon on-call for Dr. Hernández at [place]. He agreed with proceeding with lumbar puncture but recommended that this not be done within 24 hours of Eliquis. Patient last took Eliquis last night. An alternative plan is to admit and perform LP and MRI in the morning and treat empirically with Rocephin and acyclovir in the meantime. I discussed that plan with Dr. Baeza. Patient was offered transfer to a neurosurgical and neurology capable facility tonight versus following this plan of admission at [facility] with empiric care and further work-up in the morning. Patient and his really did not want to be transferred and requested to stay at [facility]. CODE STATUS was reviewed and he requests a DNR. No source of infection was identified at the time of admission except for possible sinusitis. Patient complained of urinary retention and requested a Ford catheter. Diagnostic Imaging Diagonstic Imaging: Xray Plain Films/CT/US/NM/MRI: chest Comments Chest x-ray viewed by me and report reviewed. See report below: NAME: TENISHA ESCAMILLA [facility] REC#: [id number] PT STATUS: REG ER : 1940 PHYSICIAN: RADHA MACKEY MD ADMIT DATE: 10/10/21/ER Draft Date of Exam:10/10/21 CHEST 1 VIEW, AP/PA ONLY INDICATION: Fever and confusion. COMPARISON: 08/16/2021. FINDINGS: A single frontal radiographic view of the chest was obtained and demonstrates normal cardiac silhouette and pulmonary vasculature. Sternotomy wires are noted. Lungs continue to show diffuse coarse prominence of the interstitium. There is no large effusion or pneumothorax. Osseous structures show no gross acute abnormalities. IMPRESSION: 1. Redemonstration of diffuse coarse interstitial opacities which are felt to be on the basis of chronic interstitial lung disease. 2. Otherwise, no new acute cardiopulmonary process. Dictated on workstation # [id number] Dict: 10/10/21 1652 Trans: 10/10/21 1655 [id number] Interpreted by: OLIVIA GARZA MD Diagonstic Imaging: CT Plain Films/CT/US/NM/MRI: c-spine, head Comments CT head and C-spine viewed by me and report reviewed. See report below: NAME: TENISHA ESCAMILLA [facility] REC#: [id number] PT STATUS: REG ER : 1940 PHYSICIAN: RADHA MACKEY MD ADMIT DATE: 10/10/21/ER Signed Date of Exam:10/10/21 CT HEAD/CERVICAL SPINE WO EXAMINATION: CT head and CT cervical spine without contrast. TECHNIQUE: Multiple contiguous axial images were obtained through the brain and cervical spine without the use of intravenous contrast. Sagittal and coronal reformations through the cervical spine were then performed. All CT scans use one or more of the following dose optimizing techniques: automated exposure control, MA and/or KvP adjustment based on patient size and exam type or iterative reconstruction. HISTORY: Neck pain after injury. COMPARISON: 08/11/2017. FINDINGS: CT HEAD: Mild diffuse cerebral volume loss with proportional enlargement of the ventricles and sulci. Mild hypodensities throughout the supratentorial white matter of both cerebral hemispheres. No acute intracranial hemorrhage or abnormal extra-axial fluid collections are present. Calcification of the intracranial ICAs. No hyperdense vessel. The calvarium is intact. The mastoid air cells are clear. Mucosal thickening of the paranasal sinuses. The orbits are normal. CT CERVICAL SPINE: There is grade 1 anterolisthesis of C3 on C4. There is partial fusion of C6 and C7. Grade 1 anterolisthesis of C7 on T1. There is multilevel facet hypertrophy without perched facets. There is multilevel cervical spondylosis. The paraspinous soft tissues are normal. The visualized thyroid gland is normal. The visualized lung apices are normal. IMPRESSION: 1. No acute intracranial abnormality. Chronic microangiopathy and volume loss. 2. Multilevel degenerative changes of the cervical spine without acute osseous abnormality. Dictated by: Dictated on workstation # [id number] Dict: 10/10/211823 Trans: 10/10/211853 [facility] [id number] Interpreted by: JAZMINE SUN DO Electronically signed by: JAZMINE SUN DO 10/10/211853 Diagonstic Imaging: CT Plain Films/CT/US/NM/MRI: other (Thoracolumbar spine) Comments NAME: TENISHA ESCAMILLA [facility] REC#: [id number] PT STATUS: REG ER : 1940 PHYSICIAN: RADHA MACKEY MD ADMIT DATE: 10/10/21/ER Signed Date of Exam:10/10/21 CT THORACIC/LUMBAR SPINE WO INDICATION: Fall, recent lumbar surgery. TECHNIQUE: Multiple contiguous axial images were obtained through the thoracic and lumbar spine without the use of intravenous contrast. Sagittal and coronal reformations were then performed. All CT scans use one or more of the following dose optimizing techniques: automated exposure control, MA and/or KvP adjustment based on patient size and exam type or iterative reconstruction. COMPARISON: There is no prior study for comparison. CT THORACIC SPINE FINDINGS: There is loss of height of T12 which appears chronic with a Schmorl's node at T12 in the superior endplate. There is anterolisthesis of C7 on T1 with disc space narrowing. This appears to be a chronic finding. There is no canal narrowing. There are chronic interstitial changes in the lung bases. CT LUMBAR SPINE FINDINGS: There is no evidence of lumbar spine fracture. Patient has had laminectomy at L3 and L4. There are posterior fusion screws from L3 through S1. There is slight retrolisthesis of L2 on L3. There is disc space narrowing at L2-L3 and L1-L2. There is no evidence of hardware slippage. IMPRESSION: 1. CT thoracic spine demonstrates chronic loss of height of T12 with anterolisthesis of C7 on T1. There is no acute abnormality the thoracic spine 2. CT lumbar spine shows postop changes, as described above, with underlying chronic changes and no acute fracture or compression deformity. Dictated by: Dictated on workstation # [id number] Dict: 10/10/21 1845 Trans: 10/10/211853 [facility] [id number] Interpreted by: KATLYN CAMPA MD Electronically signed by: KATLYN CAMPA MD 10/10/214 Departure Communication (Admissions) Time/Spoke to Admitting Phy: 20:00 Dr. Baeza Impression Primary Impression: Fever of unknown origin Additional Impressions: Altered mental status Qualified Codes: R41.0 - Disorientation, unspecified Maxillary sinusitis Qualified Codes: J32.0 - Chronic maxillary sinusitis Urinary retention Disposition: ADMITTED INPATIENT Condition: Improved Admissions Decision to Admit Reason: Admit from ER (General) Decision to Admit/Date: Oct 10, 2021 Time/Decision to Admit Time: 20:00 Departure-Patient Inst. Referrals: FARRUKH BAEZA MD (PCP/Family) Primary Care Physician RADHA MACKEY MD Oct 10, 2021 18:49
--- NOTE | 2021-10-10 18:55 | Diagnostic Imaging Report ---
INDICATION: Fall, recent lumbar surgery. TECHNIQUE: Multiple contiguous axial images were obtained through the thoracic and lumbar spine without the use of intravenous contrast. Sagittal and coronal reformations were then performed. All CT scans use one or more of the following dose optimizing techniques: automated exposure control, MA and/or KvP adjustment based on patient size and exam type or iterative reconstruction. COMPARISON: There is no prior study for comparison. CT THORACIC SPINE FINDINGS: There is loss of height of T12 which appears chronic with a Schmorl's node at T12 in the superior endplate. There is anterolisthesis of C7 on T1 with disc space narrowing. This appears to be a chronic finding. There is no canal narrowing. There are chronic interstitial changes in the lung bases. CT LUMBAR SPINE FINDINGS: There is no evidence of lumbar spine fracture. Patient has had laminectomy at L3 and L4. There are posterior fusion screws from L3 through S1. There is slight retrolisthesis of L2 on L3. There is disc space narrowing at L2-L3 and L1-L2. There is no evidence of hardware slippage. IMPRESSION: 1. CT thoracic spine demonstrates chronic loss of height of T12 with anterolisthesis of C7 on T1. There is no acute abnormality the thoracic spine 2. CT lumbar spine shows postop changes, as described above, with underlying chronic changes and no acute fracture or compression deformity. Dictated by: Dictated on workstation # [id number]
[2021-10-10] MEDS ORDERED: cefTRIAXone 2,000 MG in NS (IVPB) 50 ML IV ONE (19:00)
[2021-10-10] MEDS ORDERED: ACYCLOVIR INJECTION 800 MG in NS (IVPB) 250 ML IV STA (20:18)
[2021-10-10] MEDS ORDERED: NS (IVPB) 250 ML ONE (20:33)
[2021-10-10 20:50] LABS: FREE T4 (FREE THYROXINE) 0.9 NG/DL (0.70-1.48)
--- NOTE | 2021-10-10 20:58 | Tele-ICU Progress Note ---
Subjective Date Seen by a Provider: Oct 10, 2021 Time Seen by a Provider: 20:54 Subjective/Events-last exam see ap Sepsis Event Evaluation Height, Weight, BMI Height: 6'0.00" Weight: 213lbs. 0.0oz. 96.246285ym; 30.00 BMI Method:Stated Focused Exam Sepsis Stage: Sepsis Lactate Level 10/10/21 16:15: Lactic Acid Level 1.53 Time of Focused Exam: 02:00 Exam Exam Patient acknowledged, consented, and participated in this virtual visit which was conducted using real time audio/video Vital Signs Date Time Temp Pulse Resp B/P (MAP) Pulse Ox O2 Delivery O2 Flow Rate FiO2 10/10/21 18:37 36.5 10/10/21 15:53 39.5 129 25 117/72 (87) 92 Room Air Height & Weight Height: 6'0.00" Weight: 213lbs. 0.0oz. 96.942482ti; 30.00 BMI Method:Stated General Appearance: No Apparent Distress, WD/WN, Moderate Distress HEENT: PERRL/EOMI, Normal ENT Inspection, Other (Oropharynx pasty) Neck: Normal Inspection; No JVD Respiratory: Lungs Clear, No Accessory Muscle Use, Crackles (Right base) Cardiovascular: No Edema, No Murmur, Normal Peripheral Pulses, Irregularly Irregular (Intermittently irregular with runs of A. 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 Disoriented with some questions. GCS 14) Results Lab Laboratory Tests 10/10/21 15:34 Assessment/Plan Assessment/Plan New admission Remote Monitoring from an offlocation site. please note provider is not bedside. history is taken from the patients ED note. Video assessment will be done once patient arrives to unit. cc fever hpi 81 yo male presents to ED 3 months after an l2-l4 back surgery with spinal fluid leak complications sp patch. Patient at home was febrile up to 101 an confused leading the hospital presentation. upon arrival to ed temp 39.5 and hypotensive and tachycardia. sepsis workup initiated and LP considered. Regine is on home eliquis therefore deffered by ED team for 24 hours per neurology recs. ER workup for sepsis negative for source of infection and multiple scans also negative. See emar. admitted to icu for further management. PMHX gout, dysplipedimia, hypothyroid, back pain, afibb, pshx recent back surgery as noted above fam hx non cont. code status DNR allergies NKDA ros as above, other then that negative. vitals see emar tmax 39.5, pulse 130s, rr 25, bp 117/72, sat 92 on ra exam deffered. i am remotely monitoring patient from [facility] and am not bedside to perform exam. LABS see emar la 1.53 wbc 10.4 imaging 1. Redemonstration of diffuse coarse interstitial opacities which are felt to be on the basis of chronic interstitial lung disease. 2. Otherwise, no new acute cardiopulmonary process. CT IMPRESSION: 1. No acute intracranial abnormality. Chronic microangiopathy and volume loss. 2. Multilevel degenerative changes of the cervical spine without acute osseous abnormality. CT spine IMPRESSION: 1. CT thoracic spine demonstrates chronic loss of height of T12 with anterolisthesis of C7 on T1. There is no acute abnormality the thoracic spine 2. CT lumbar spine shows postop changes, as described above, with underlying chronic changes and no acute fracture or compression deformity. IP 1. Recent back surgery, presenting with sepsis features Per notes, regine was offered a transferred to a neuro center and refused. SIRS criteria met abx as ordered vanc/rocephin/acyclovir cultures drawn LA follow up add on PCT neurology consult 2. paroxysmal afibb on eliquis hold medication for procedures per neuro recs cards echo fasthug see orders further orders will be added as nurse requests Critical Care: Critically Ill Patient JOSÉ ANTONIO MAYFIELD DO Oct 10, 2021 20:58
[2021-10-10] MEDS ORDERED: D5 1/2 NS 1000 ML IV SOLUTION 1,000 ML IV SCH (21:00)
[2021-10-10] MEDS ORDERED: VANCOMYCIN INJECTION 0.1 MG in NS (IVPB) 250 ML IV SCH (21:00)
[2021-10-10] MEDS ORDERED: VANCOMYCIN 1 GM/NS 250 ML IVPB IV ONE ×2 (22:00)
[2021-10-10] MEDS ORDERED: LACTATED RINGERS 1,000 ML IV SCH (22:15)
[2021-10-10] MEDS ORDERED: ONDANSETRON 4 MG/2 ML (SDV) Z0FRAN IV PRN (22:15)
[2021-10-10] MEDS: meTOproloL SUCCINATE 50 MG (TOPROL XL) TAB PO SCH (22:39)
[2021-10-10] MEDS: DRONEDARONE 400 MG TABLET PO SCH (22:39)
[2021-10-10] MEDS: RANOLAZINE ER 500 MG TAB (RANEXA) PO SCH (22:39)
[2021-10-10] MEDS ORDERED: VANCOMYCIN 750 MG/NS 250 ML IVPB IV ONE ×2 (23:00)
[2021-10-10] MEDS: ACETAMINOPHEN 500 MG TAB (TYLENOL) PO SCH (23:10)
[2021-10-10] MEDS: D5 NS 1000 ML IV SOLUTION 1,000 ML IV SCH (23:40)
[2021-10-11] MEDS ORDERED: ACYCLOVIR INJECTION 800 MG in NS (IVPB) 250 ML IV SCH (05:00)
[2021-10-11] MEDS: ACETAMINOPHEN 500 MG TAB (TYLENOL) PO SCH ×3 (05:42→18:50)
[2021-10-11 05:56] LABS: ALBUMIN 3.6 GM/DL (3.2-4.5); POTASSIUM 4.3 MMOL/L (3.6-5.0)
[2021-10-11 05:57] LABS: CALCIUM 8.9 MG/DL (8.5-10.1)
[2021-10-11 05:59] LABS: TOTAL PROTEIN 6.5 GM/DL (6.4-8.2)
[2021-10-11 06:00] LABS: BILIRUBIN,TOTAL 0.8 MG/DL (0.1-1.0)
[2021-10-11 06:02] LABS: CREATININE SERUM 1.02 MG/DL (0.60-1.30); PHOSPHORUS 2.9 MG/DL (2.3-4.7)
[2021-10-11 06:05] LABS: MAGNESIUM 1.9 MG/DL (1.6-2.4)
[2021-10-11] MEDS: PANTOPRAZOLE 40 MG (PROTONIX) TAB PO SCH (08:31)
[2021-10-11] MEDS: RANOLAZINE ER 500 MG TAB (RANEXA) PO SCH ×2 (08:31→20:22)
[2021-10-11] MEDS: cefTRIAXone 2,000 MG/NS 50 ML IVPB IV SCH ×4 (08:31→21:58)
[2021-10-11] MEDS: DRONEDARONE 400 MG TABLET PO SCH ×2 (08:31→20:22)
[2021-10-11] MEDS ORDERED: cefTRIAXone 1 GM PRE-MIX 50 ML IV SCH (09:00)
[2021-10-11] MEDS: ACYCLOVIR INJECTION 800 MG in NS (IVPB) 250 ML IV SCH ×3 (09:00→23:42)
[2021-10-11] MEDS ORDERED: ALLOPURINOL 100 MG (ZYLOPRIM) TAB PO SCH (09:00)
--- NOTE | 2021-10-11 09:07 | History & Physical ---
History of Present Illness History of Present Illness Reason for visit/HPI Kelvin is an 81 y/o male who was brought to the hospital for weakness, confusion, and falling episodes. In the ER it was found that he had symptoms of sepsis with elevated temperature and respiratory rate, but did not have elevation of white count or lactic acid level. Kevlin has remote history of lumbar spine surgery in July with complications and corrective tissue patch from his Lumbar 2-4. He was transferred from [facility] to [facility] for rehab and has been home since the middle of August. His reprots intermittent weakness, fatigue and fevers. Kelvin reports that he thinks that the falls are due to his legs getting weak, specifically his right knee "giving out". He thinks that since his surgery, his muscle have gotten too weak to compensate for his knee giving out and that is why he is falling. Kelvin states that he goes outside to walk every day to try to regain his streng th. Date of Admission Oct 10, 2021 at 20:14 Date Seen by a Provider: Oct 11, 2021 Time Seen by a Provider: 09:00 I consulted on this patient on 10/11/21 0900 Attending Physician Farrukh Baeza MD Admitting Physician Admitting Physician: Farrukh Baeza MD Attending Physician: Farrukh Baeza MD Consult EICU Allergies and Home Medications Allergies Coded Allergies: No Known Drug Allergies (Verified , 02/23/08) Patient Home Medication List Home Medication List Reviewed: Yes Allopurinol (Allopurinol) 100 Mg Tablet, 200 MG PO DAILY, (Reported) Entered as Reported by: JONE GOINS on 11/26/17 0852 Last Action: Held Allopurinol (Allopurinol) 100 Mg Tablet, 100 MG PO HS, (Reported) Entered as Reported by: BHANU SIMONS on 08/14/21 1359 Last Action: Held Apixaban (Eliquis) 5 Mg Tablet, 5 MG PO BID, (Reported) Entered as Reported by: JONE GOINS on 03/16/18 1003 Last Action: Reviewed Aspirin (Aspirin EC) 81 Mg Tablet.dr, 81 MG PO HS, (Reported) Entered as Reported by: CONCHA HUANG on 02/13/18 1611 Last Action: Continued Atorvastatin Calcium (Atorvastatin Calcium) 40 Mg Tablet, 40 MG PO HS, (R eported) Entered as Reported by: FAUSTINA GARCIA on 10/22/19 1654 Last Action: Continued B-Complex with Vitamin C (Vitamin B Complex-Vitamin C) 1 Each Tablet, 1 EACH PO DAILY, (Reported) Entered as Reported by: BHANU SIMONS on 08/14/21 1359 Last Action: Held Calcium Carbonate (Calcium Carbonate) 500 Mg Calcium (1250 Mg) Tablet, 500 MG PO DAILY, (Reported) Entered as Reported by: BHANU SIMONS on 10/11/21 131 Last Action: Held Cholecalciferol (Vitamin D3) (Vitamin D3) 25 Mcg (1000 Unit) Tab.chew, 25 MCG PO DAILY, (Reported) Entered as Reported by: BHANU SIMONS on 10/11/21 131 Last Action: Held Doxazosin Mesylate (Doxazosin Mesylate) 4 Mg Tablet, 4 MG PO HS, (Reported) Entered as Reported by: JONE GOINS on 11/26/17 0855 Last Action: Reviewed Dronedarone HCl (Multaq) 400 Mg Tablet, 400 MG PO BID, (Reported) Entered as Reported by: BHANU SIMONS on 02/20/21 120 Last Action: Reviewed Furosemide (Furosemide) 20 Mg Tablet, 20 MG PO DAILY PRN for FLUID RETENTION, (Reported) Entered as Reported by: BHANU SIMONS on 10/11/211312 Last Action: Reviewed Hydrocodone/Acetaminophen (Hydrocodone-Acetamin 10-325 mg) 1 Each Tablet, 1 EA PO Q6H PRN for PAIN-MODERATE (5-7), (Reported) Entered as Reported by: BHANU SIMONS on 02/20/21 120 Last Action: Continued Krill/Om3/Dha/Epa/Om6/Lip/Astx (Krill Oil 1,000 mg Softgel) 1,000-130MG Capsule, 1 EACH PO BID, (Reported) Entered as Reported by: BHANU SIMONS on 10/11/21 131 Last Action: Held Levothyroxine Sodium (Levothyroxine Sodium) 50 Mcg Tablet, 50 MCG PO DAILY, (Reported) Entered as Reported by: CONCHA HUANG on 02/13/18 1611 Last Action: Continued Lisinopril (Lisinopril) 5 Mg Tablet, 2.5 MG PO BID, (Reported) Entered as Reported by: EDDIE LEWIS on 08/20/21 1348 Last Action: Reviewed Magnesium Oxide (Magnesium) 400 Mg Tablet, 400 MG PO HS, (Reported) Entered as Reported by: JONE GOINS on 03/16/18 1005 Last Action: Converted Metoprolol Succinate (Metoprolol Succinate) 25 Mg Tab.er.24h, 25 MG PO HS, (Reported) Entered as Reported by: BHANU SIMONS on 10/11/21 1313 Last Action: Continued Mirtazapine (Mirtazapine) 15 Mg Tablet, 7.5 MG PO HS, (Reported) Entered as Reported by: BHANU SIMONS on 10/11/21 1313 Last Action: Converted Multivit-Min/FA/Lycopene/Lut (Centrum Silver Ultra Men's Tab) 1 Each Tablet, 1 EACH PO DAILY, (Reported) Entered as Reported by: BHANU SIMONS on 02/20/21 1209 Last Action: Held Pantoprazole Sodium (Pantoprazole Sodium) 40 Mg Tablet.dr, 40 MG PO DAILY, (Reported) Entered as Reported by: CONCHA HUANG on 02/13/18 1611 Last Action: Continued Potassium Gluconate (Potassium Gluconate) 595 Mg (99 Mg) Tablet.er, 99 MG PO DAILY, (Reported) Entered as Reported by: BHANU SIMONS on 08/14/21 1359 Last Action: Held Ranolazine (Ranolazine ER) 1,000 Mg Tab.er.12h, 1,000 MG PO BID, (Reported) Entered as Reported by: BHANU SIMONS on 02/20/21 1209 Last Action: Converted Zinc (Zinc) 50 Mg Tablet, 50 MG PO DAILY, (Reported) Entered as Reported by: BHANU SIMONS on 10/11/21 1313 Last Action: Held Discontinued Medications Calcium Carbonate/Vitamin D3 (Calcium 600-D3 20Mcg(800 Unit)) 600 Mg Calcium-20 Mcg (800 Unit) Tablet, 1 EACH PO HS, (Reported) Discontinued Reason: Prescription changed Entered as Reported by: BHANU SIMONS on 08/14/21 1359 Cholecalciferol (Vitamin D3) (Vitamin D3) 25 Mcg (1000 Unit) Tablet, 25 MCG PO DAILY Discontinued Reason: Duplicate Order Prescribed by: ABIEL SAUNDERS on 08/23/21 1210 Last Action: Discontinued Metoprolol Succinate (Metoprolol Succinate) 50 Mg Tab.er.24h, 50 MG PO DAILY, (Reported) Discontinued Reason: No Longer Taking Entered as Reported by: EDDIE LEWIS on 08/20/21 1404 Last Action: Discontinued Miconazole Nitrate (Lotrimin AF) 2 % Powder, 0 GM TOP BID Discontinued Reason: No Longer Taking Prescribed by: ABIEL SAUNDERS on 08/23/21 1210 Last Action: Discontinued Chanute-3 Fatty Acids/Fish Oil (Chanute 3 1,000 mg Softgel) 300 Mg-1,000 Mg Capsule, 1 EACH PO HS, (Reported) Discontinued Reason: No Longer Taking Entered as Reported by: EDDIE LEWIS on 08/20/21 1353 Last Action: Discontinued Sucralfate (Sucralfate) 1 Gram Tablet, 1 GM PO ACHS Discontinued Reason: No Longer Taking Prescribed by: ABIEL SAUNDERS on 08/23/21 121 Last Action: Discontinued Past Noalomm-Kzrjiu-Ajgxyp Hx Patient Social History Marrital Status: Living Status: lives in [place] with spouse Zoe Employed/Student: retired Tobacco Use?: Yes Tobacco type used: Cigarettes Smoking Status: Current Everyday Smoker Smokeless Tobacco Frequency: Never a User Use of E-Cig and/or Vaping dev: No Substance use?: No Alcohol Use?: No Pt feels they are or have been: No Immunizations Up To Date Date of Influenza Vaccine: Feb 13, 2021 First/Initial COVID19 Vaccinat: JUNE 2020 Second COVID19 Vaccination Toan: JULY 2020 Date of Pneumonia Vaccine: Nov 12, 2016 Seasonal Allergies Seasonal Allergies: No Current Status Communicates: Verbally Primary Language: Citizen Of [place] Preferred Spoken Language: Citizen Of [place] Is interpretation needed?: No Implanted or Applied Medical D: Orthopedic hardware, Other (loop recorder) Past Medical History Surgeries: Abdominal, CABG, Coronary Stent, Orthopedic (Lumbar spinal fusion), Prostatectomy Sleep Apnea Currently Using CPAP: Yes Currently Using BIPAP: No Atrial Fibrillation, Coronary Artery Disease, High Cholesterol, Hypertension Prostate Problems Abdominal Hernia, Gastroesophageal Reflux Arthritis, Chronic Back Pain, Gout Hypothyroidsim Prostate, Skin Did You Recieve Any Treatments: Yes What Type of Treatment Did You: Radiation, Surgical Intervention Blood Disorders: No Adverse Reaction/Blood Tranf: No Family Medical History Reviewed and Corrections made Cardiovascular disease 19 MOTHER Myocardial infarction 19 FATHER Heart Disease, CAD Over 55 Years Old, Hypertension Review of Systems Constitutional: chills; No diaphoresis, No dizziness; fever, malaise, weakness EENTM: hearing loss; No ear pain, No blurred vision, No double vision, No vision loss, No throat pain Respiratory: No cough, No short of breath, No wheezing Cardiovascular: No chest pain, No edema; Hx of Intervention Gastrointestinal: LUQ; No abdominal pain, No constipation, No diarrhea; heartburn; No loss of appetite, No nausea, No vomiting Genitourinary: frequency Musculoskeletal: back pain, muscle weakness, other (right knee gives out intermittently when walking) Skin: no symptoms reported Psychiatric/Neurological: Weakness All Other Systems Reviewed Negative Unless Noted: Yes Physical Exam Vital Signs Vital Signs - First Documented 10/10/21 15:53 Temp 39.5 Pulse 129 Resp 25 B/P (MAP) 117/72 (87) Pulse Ox 92 O2 Delivery Room Air Capillary Refill : Less Than 3 Seconds Height, Weight, BMI Height: 6'0.00" Weight: 213lbs. 0.0oz. 96.595348ag; 25.97 BMI Method:Stated General Appearance: No Apparent Distress, WD/WN HEENT: PERRL/EOMI, Other (thrush on tongue) Neck: Full Range of Motion, Normal Inspection, Non Tender, Supple Respiratory: Chest Non Tender, Lungs Clear, Normal Breath Sounds, No Accessory Muscle Use, No Respiratory Distress Cardiovascular: Irregularly Irregular (intermittent) Gastrointestinal: Normal Bowel Sounds, No Organomegaly, No Pulsatile Mass, Non Tender, Soft Rectal: Deferred Back: Normal Inspection, Other (surgical site well approximated, no erythema, no tenderness) Extremity: Normal Capillary Refill, Normal Inspection, Normal Range of Motion, Non Tender, No Calf Tenderness, No Pedal Edema, Other (slight clubbing of digits) Neurologic/Psychiatric: Alert, Oriented x3, Normal Mood/Affect Skin: Normal Color, Warm/Dry Lymphatic: No Adenopathy Assessment/Plan Assessment and Plan SIRS Mild leukocytosis Intermittent fevers Chronic Atrial Fibrillation Chronic Hypertension Chronic Coronary Artery disease GERD Chronic Anticoagulation with NOAC Anemia Hyponatremia SIRS with Mild leukocytosis and Intermittent fevers - with recent hardware placement in spine, plan was initially for pt to have Lumbar puncture, however, due to the nature of his surgery, Anesthesiology is uncomfortable with LP. -he would have to be off of the eliquis for another 48 hours, which will place the LP being done on Friday. - Anesthesia is also deferring the LP to Radiology - to have this done with FLURO - which would put the LP being done 6 days in on IV antibiotics, IV antivirals, antifungals, and at that point, the efficacy of the LP with the inherent risk (and his surgical patch placement) is not worth the, by then, limited benefit on 6 days of therapy. I have discussed this with the patient, and left a voice message for his since she did not answer the phone when I called. The pt was in agreement and stated that he would rather not "mess" with that area if the risk vs benefit would not be very large. Chronic Atrial Fibrillation - hold home meds for now - once his has given her final "okay" we will restart the eliquis. - bp was low - will hold off on home heart meds at this time. Chronic Hypertension - hold home meds, once bp improves, will restart antihypertensive meds. Chronic Coronary Artery disease GERD - restart ppi Chronic Anticoagulation with NOAC - holding eliquis for now - will restart once Zoe gives the okay to not do the LP. Anemia - mild anemia - monitor labs Hyponatremia - should improve with fluids Kelvin has chronic gout - is on allopurinol, however due to slight rash on chest, and the risk of a drug reaction causing some of his symptoms, I will hold the allopurinol at this time. We are working him up for tick borne illness, HIV, [place] virus, and he has blood and urine cultures pending. Admission Diagnosis SIRS Mild leukocytosis Intermittent fevers Chronic Atrial Fibrillation Chronic Hypertension Chronic Coronary Artery disease GERD Chronic Anticoagulation with NOAC Anemia Hyponatremia Admission Status: Inpatient Order (span 2 midnights) Reason for Inpatient Admission: inpt admission for SIRS - will require at least 3-4 midnights in the hospital for stabilization and investigation and treatment FARRUKH BAEZA MD Oct 11, 2021 09:07
[2021-10-11 09:18] LABS: ABSOLUTE RETIC # 49 10e9/uL (24-90); EOSINOPHILS # (AUTO) 0.1 10^3/uL (0.0-0.3); EOSINOPHILS % (AUTO) 1 % (0-10); HEMATOCRIT 36 % (40-54); LYMPHOCYTES % (AUTO) 16 % (12-44); MEAN CORPUSCULAR HEMOGLOBIN 33 pg (25-34); MEAN CORPUSCULAR HGB CONC 34 g/dL (32-36); MEAN CORPUSCULAR VOLUME 98 fL (80-99); NEUTROPHILS # (AUTO) 8.2 10^3/uL (1.8-7.8); NEUTROPHILS % (AUTO) 74 % (42-75); RETICULOCYTE % 1.33 % (0.50-2.40)
[2021-10-11 09:22] LABS: MEAN PLATELET VOLUME 9.1 fL (9.0-12.2); PLATELET COUNT 234 10^3/uL (130-400); WHITE BLOOD COUNT 11.2 10^3/uL (4.3-11.0)
[2021-10-11 09:23] LABS: BASOPHILS % (AUTO) 0 % (0-10); LYMPHOCYTES # (AUTO) 1.8 10^3/uL (1.0-4.0); MONOCYTES # (AUTO) 0.9 10^3/uL (0.0-1.0); MONOCYTES % (AUTO) 8 % (0-12)
[2021-10-11 09:53] LABS: ANISOCYTOSIS SLIGHT; BAND NEUTROPHILS 1 %; BASOPHILS % (MANUAL) 0 %; EOSINOPHILS % (MANUAL) 1 %; LYMPHOCYTES % (MANUAL) 12 %; MONOCYTES % (MANUAL) 6 %; NEUTROPHILS % (MANUAL) 80 %
--- NOTE | 2021-10-11 10:03 | Progress Note ---
Standard Progress Note Progress Notes/Assess & Plan Date Seen by a Provider: Oct 11, 2021 Time Seen by a Provider: 09:30 Progress/Assessment & Plan Consulted by Dr. Baeza for LP. Chart reviewed and patient interview. Pt could not stay awake enough to obtain any history or consent. Pt last dose of Eliquis was evening per Zoe. Earliest an LP could be performed is 72 hrs after last dose. Upon reviewing chart and speaking to , Mr. Vargas was noted to have multiple complications after recent lumbar surgery that required a patch for dural leak. I advised and Dr. Baeza of the risks and that anesthesia prefers to have this done under Fluoroscopy by radiologist to avoid the surgical area. Final Diagnosis Fever, Altered LOC Focused Exam Lactate Level 10/10/21 16:15: Lactic Acid Level 1.53 Time of Focused Exam: 02:00 LADAN MCCRARY CRNA Oct 11, 2021 10:03
[2021-10-11] MEDS ORDERED: ZINC50TA58 PO (13:13)
[2021-10-11] MEDS ORDERED: MIRT-68 PO (13:13)
[2021-10-11] MEDS ORDERED: MTP25TSR PO (13:13)
[2021-10-11] MEDS ORDERED: FURO20TA4 PO (13:13)
[2021-10-11] MEDS ORDERED: CALC500T64 PO (13:13)
[2021-10-11] MEDS ORDERED: KRIL1CAP PO (13:13)
[2021-10-11] MEDS ORDERED: CHOL10008 PO (13:13)
[2021-10-11] MEDS: D5 NS 1000 ML IV SOLUTION 1,000 ML IV SCH (14:06)
--- NOTE | 2021-10-11 14:31 | Physical Therapy Evaluation ---
PT Evaluation-General Medical Diagnosis Admission Date Oct 10, 2021 at 20:14 Medical Diagnosis: Fever Onset Date: Oct 09, 2021 Therapy Diagnosis Therapy Diagnosis: Gait deficit, strength deficit Height/Weight Height (Feet): 6 Height (Inches): 0.00 Weight (Pounds): 213 Weight (Ounces): 0.0 Precautions Precautions/Isolations: Fall Prevention, Standard Precautions Weight Bear Status Right Lower Extremity: Right Full Weight Bearing Left Lower Extremity: Left Full Weight Bearing Referral Physician: Dr. Baeza Reason for Referral: Evaluation/Treatment Medical History Pertinent Medical History: Atrial Fib, CABG, CAD, HTN, MS Social History Home: Single Level Current Living Status: Spouse Entry Into Home: Stairs With Railing PT Steps Into Home: 4 Prior Prior Level of Function SCALE: Activities may be completed with or without assistive devices. 1-Gihorwwzri-jgtqpjl completes the activity by him/herself with no assistance from a helper. 5-Set-up or Clean-up Assistance-helper sets up or cleans up; patient completes activity. Hico assists only prior to or following the activity. 4-Supervision or Touching Assistance-helper provides verbal cues and/or touching/steadying and/or contact guard assistance as patient completes activ ity. Assistance may be provided throughout the activity or intermittently. 3-Partial/Moderate Assistance-helper does LESS THAN HALF the effort. Hico lifts, holds or supports trunk or limbs, but provides less than half the effort. 2-Substantial/Maximal Assistance-helper does MORE THAN HALF the effort. Hico lifts or holds trunk or limbs and provides more than half the effort. 5-Sttoacvfk-gjpgdu does ALL the effort. Patient does none of the effort to complete the activity. Or, the assistance of 2 or more helpers is required for the patient to complete the activity. If activity was not attempted, code reason: 7-Patient Refused. 9-Not Applicable-not attempted and the patient did not perform the activity before the current illness, exacerbation or injury. 10-Not Attempted due to Environmental Limitations-(lack of equipment, weather restraints, etc.). 88-Not Attempted due to Medical Conditions or Safety Concerns. Bed Mobility: 6 Transfers (B,C,W/C): 6 Gait: 6 Stairs: 6 Indoor Mobility (Ambulation): Independent Stairs: Independent Prior Devices Use: Walker PT Evaluation-Current Subjective Patient lying supine in bed upon PT arrival, agreeable to treatment. Yamilet rates pain at 0/10 currently. Patient confused and demonstrates mild difficulty staying awake at times. Shake frequently throughout the treatment and states he is very cold. Objective Patient Orientation: Person Attachments: Oxygen, Ford Catheter, IV ROM/Strength ROM Lower Extremities WFLs all planes BLEs Strength Lower Extremities 3+/5 all planes BLEs via visual observation. Patient demonstrates difficulty following commands to accurately assess MMT. Sensory Vision: Functional Hearing: Impaired Sensation Right Lower Extremit: Intact Sensation Left Lower Extremity: Intact Transfers Roll Left to Right (QC): 3 Sit to Lying (QC): 3 Lying to Sitting/Side of Bed(Q: 3 Sit to Stand (QC): 2 Gait Does the Patient Walk?: No and Walking Goal IS indicated Mode of Locomotion: Walk Anticipated Mode of Locomotion: Walk Balance Sitting Static: Fair Sitting Dynamic: Poor Standing Static: Poor Standing Dynamic: Poor Assessment/Needs Patient very drowsy but able to participate. He performs all observed bed mobility and transfer with mod to max A. Patient demonstrates frequent retropulsive movements during static sitting; unable to determine if this is true truncal ataxia or the patient is simply unable to stay awake. While sitting he is able to answer questions appropriately and participate with the evaluation minimally, however demonstrates difficulty following commands. Patient performs sit to stand with max A and laterally steps 2 feet to the head of the bed. Patient returns to supine with mod A. Patient in bed post treatment with all needs met, nursing notified, call light in hand. Rehab Potential: Fair PT Meters Superintendent Goals Intermediate Goals PT Intermediate Goals Time Frame: Oct 26, 2021 Roll Left & Right (QC): 6 Sit to Lying (QC): 6 Lying-Sitting on Side/Bed(QC): 6 Sit to Stand (QC): 6 Chair/Ara-sv-Nlgfw Xfer(QC): 4 Toilet Transfer (QC): 4 Does the Patient Walk: Yes Walk 10 feet (QC): 4 Walk 50ft with 2 Turns (QC): 4 Walk 150 ft (QC): 4 PT Plan Problem List Problem List: Activity Tolerance, Functional Strength, Safety, Balance, Gait, Transfer, Bed Mobility, ROM Treatment/Plan Treatment Plan: Continue Plan of Care Treatment Plan: Bed Mobility, Education, Functional Activity Rachelle, Functional Strength, Group Therapy, Gait, Safety, Therapeutic Exercise, Transfers Treatment Duration: Nov 09, 2021 Frequency: 6 times per week Estimated Hrs Per Day: .25 hour per day Patient and/or Family Agrees t: Yes Safety Risks/Education Patient Education: Transfer Techniques Teaching Recipient: Patient Teaching Methods: Demonstration, Discussion Response to Teaching: Reinforcement Needed Time/GCodes Time In: 1340 Time Out: 1405 Total Billed Treatment Time: 25 Total Billed Treatment Visit, CLAY ASH JOHN A PT Oct 11, 2021 14:31
[2021-10-11] MEDS ORDERED: GADOTERATE 0.5 MMOL/ML (CLARISCAN) 20 ML VIAL IV ONE (15:45)
[2021-10-11] MEDS: fluCOnazole (DIFLUCAN) 10MG/ML 35ML BTL PO SCH (16:03)
--- NOTE | 2021-10-11 17:23 | Diagnostic Imaging Report ---
PROCEDURE: MR imaging of the brain without contrast. TECHNIQUE: Multiplanar, multisequence MR imaging of the brain was performed without contrast. INDICATION: Fever, pain. COMPARISON: Exam is correlated with head CT one day prior. FINDINGS: There are no foci of abnormal diffusion restriction. There were no findings of an acute or subacute ischemic infarct. There is no focal or generalized cerebral edema. There is a mild atrophic degree of cerebral cortical volume loss with mild periventricular white matter small vessel disease appearing symmetric. No findings of hemorrhage, and there are no acute extra-axial fluid collections. There is membrane thickening and fluid in the left maxillary sinus. The orbits and remaining paranasal sinuses as well as mastoids are unremarkable. IMPRESSION: Mild chronic senescent changes. No hemorrhage, edema, infarct, or mass. Left maxillary sinus disease. Study otherwise negative. Dictated by: Dictated on workstation # [id number]
--- NOTE | 2021-10-11 17:31 | Diagnostic Imaging Report ---
PROCEDURE: MRI lumbar spine. TECHNIQUE: Multiplanar, multisequence MRI of the lumbar spine was performed without contrast. INDICATION: Fever, spinal fusion. Correlated with CT lumbar dated 10/10/2021. While contrast was requested, patient was unable to complete the exams for the postcontrast enhanced portions of the scheduled brain and lumbar MRI. Study of the noncontrast enhanced portion however is completed successfully. Posterior fusion with bipedicular screws and vertical rods L3-S1 again noted with associated decompressive laminectomies. The conus appeared normal. Distally there is some peripheral clumping of the nerves of the cauda equina at the L4-L5 level into the visualized upper sacrum which may reflect arachnoiditis. There is a fluid collection within the laminectomy bed, epicentered at L4 measuring 5 cm transverse by 3.1 cm AP and extending a cephalocaudal height of 5 cm. Its ventral component is adjacent to the thecal sac but did not distort the contour of that structure and did not result in any spinal stenosis. There is no epidural collection. No convincing evidence for lumbar marrow edema. There may be some mild Modic type I changes at L5, L4 and L3 inferior endplates. No aleida bony destruction. At the L2-L3 level, osteophyte disc material effaces the ventral thecal sac and there is some facet arthrosis and thickened ligamenta flava resulting in mild spinal canal stenosis with moderate left and mild right foraminal narrowing. At the levels of decompression the canal widely patent. There is nonedematous old T12 superior endplate concavity stable from prior CT. IMPRESSION: 1. There is a fluid collection within the laminectomy bed however this exerts no mass effect upon the thecal sac and at the levels of decompression and laminectomy, the spinal canal is widely patent. No acute-appearing bony pathology. 2. We note peripheral clumping of the nerves of the lower cauda equina at L5 in the upper sacral levels which may reflect a component of arachnoiditis. No acute intrathecal collection found. 3. No bony destructive process, mild canal and left foraminal stenoses above the fusion at L2-L3. 4. Old nonedematous T12 superior endplate compression chronic. Dictated by: Dictated on workstation # [id number]
[2021-10-11] MEDS: VANCOMYCIN 1500 MG/NS 500 ML IVPB IV SCH ×2 (19:49)
[2021-10-11] MEDS: meTOproloL SUCCINATE 50 MG (TOPROL XL) TAB PO SCH (20:22)
[2021-10-11] MEDS: DOXYCYCLINE INJECTION 100 MG in NS (IVPB) 100 ML IV SCH (22:42)
[2021-10-12] MEDS: D5 NS 1000 ML IV SOLUTION 1,000 ML IV SCH ×3 (00:41→18:02)
[2021-10-12] MEDS: ACETAMINOPHEN 500 MG TAB (TYLENOL) PO SCH ×4 (00:42→17:55)
[2021-10-12 04:54] LABS: BASOPHILS % (AUTO) 0 % (0-10); EOSINOPHILS # (AUTO) 0.2 10^3/uL (0.0-0.3); EOSINOPHILS % (AUTO) 2 % (0-10); HEMATOCRIT 33 % (40-54); LYMPHOCYTES # (AUTO) 1.4 10^3/uL (1.0-4.0); LYMPHOCYTES % (AUTO) 14 % (12-44); MEAN CORPUSCULAR HEMOGLOBIN 33 pg (25-34); MEAN CORPUSCULAR HGB CONC 33 g/dL (32-36); MEAN CORPUSCULAR VOLUME 99 fL (80-99); MEAN PLATELET VOLUME 8.9 fL (9.0-12.2); MONOCYTES # (AUTO) 0.7 10^3/uL (0.0-1.0); MONOCYTES % (AUTO) 7 % (0-12); NEUTROPHILS # (AUTO) 7.7 10^3/uL (1.8-7.8); NEUTROPHILS % (AUTO) 77 % (42-75); PLATELET COUNT 201 10^3/uL (130-400)
[2021-10-12 05:06] LABS: ALBUMIN 3.1 GM/DL (3.2-4.5)
[2021-10-12 05:08] LABS: CALCIUM 8.6 MG/DL (8.5-10.1)
[2021-10-12 05:09] LABS: TOTAL PROTEIN 5.5 GM/DL (6.4-8.2)
[2021-10-12 05:11] LABS: BILIRUBIN,TOTAL 0.4 MG/DL (0.1-1.0)
[2021-10-12 05:12] LABS: PHOSPHORUS 2.8 MG/DL (2.3-4.7)
[2021-10-12 05:13] LABS: CREATININE SERUM 0.81 MG/DL (0.60-1.30)
[2021-10-12 05:16] LABS: MAGNESIUM 1.6 MG/DL (1.6-2.4)
--- NOTE | 2021-10-12 07:31 | Progress Note ---
Subjective Subjective Date Seen by Provider: Oct 12, 2021 Time Seen by Provider: 08:40 Pt is an 81 y/o male who was admitted to the hospital with confusion, weakness, falling episodes and SIRS. His reports symptoms of sundowning in the evening, confusion and lethargy with minimal responsiveness. He denies chest pain, shortness of breath today. he complains of his feet feeling like rocks and his right knee giving way at times. Review of Systems General: No Chills; Fatigue, Malaise HEENT: No Head Aches Pulmonary: No Dyspnea, No Cough Cardiovascular: No: Chest Pain, Palpitations Gastrointestinal: No: Nausea, Abdominal Pain Musculoskeletal: foot pain Neurological: Weakness, Confusion (intermittent) All Other Systems Reviewed All Other Systems Reviewed: Yes Objective Exam Vital Signs Vital Signs Date Time Temp Pulse Resp B/P (MAP) Pulse Ox O2 Delivery O2 Flow Rate FiO2 10/12/21 06:00 81 146/89 96 Room Air 10/12/21 05:00 67 135/68 99 Room Air 10/12/21 04:00 95 Room Air 10/12/21 04:00 79 115/63 97 Room Air 10/12/21 03:00 62 107/63 97 Room Air 10/12/21 02:00 71 87/58 97 Room Air 10/12/21 01:00 79 10/12/21 01:00 79 99/57 93 Room Air 10/12/21 00:00 94 22 118/71 98 Room Air 10/11/21 23:59 95 Room Air 10/11/21 23:00 66 23 107/74 90 Room Air 10/11/21 22:00 70 20 100/62 90 Room Air 10/11/21 21:00 95 19 133/92 97 Room Air 10/11/21 20:00 90 12 123/78 93 Room Air 10/11/21 20:00 95 Room Air 10/11/21 19:00 98 12 102/81 96 Room Air 10/11/21 19:00 98 10/11/21 18:00 78 18 111/66 95 Room Air 10/11/21 17:00 86 18 116/84 96 Room Air 10/11/21 16:00 88 20 93 Room Air 10/11/21 16:00 95 Room Air 10/11/21 15:00 99 18 104/82 96 Room Air 10/11/21 14:00 109 20 132/93 96 Room Air 10/11/21 13:00 98 18 181/108 98 Room Air 10/11/21 13:00 102 10/11/21 12:00 80 16 119/87 98 Room Air 10/11/21 12:00 95 Room Air 10/11/21 11:36 36.8 90 19 140/91 91 Room Air 10/11/21 11:00 84 18 134/83 91 Room Air 10/11/21 10:00 87 18 162/95 96 Room Air 10/11/21 09:00 72 20 116/70 92 Room Air 10/11/21 08:00 80 16 101/65 98 Room Air 10/11/21 08:00 95 Room Air 10/11/21 07:35 36.1 80 14 109/69 94 Room Air I & O 10/12/21 07:00 Intake Total 2697 ml Output Total 1875 ml Balance 822 ml General Appearance: No Apparent Distress, WD/WN Eyes: Bilateral Eye Normal Inspection, Bilateral Eye PERRL, Bilateral Eye EOMI HEENT: PERRL/EOMI, Other (thrush on tongue) Neck: Full Range of Motion, Normal Inspection, Non Tender, Supple Respiratory: Chest Non Tender, Lungs Clear, Normal Breath Sounds, No Accessory Muscle Use, No Respiratory Distress Cardiovascular: Irregularly Irregular (intermittent) Gastrointestinal: Normal Bowel Sounds, No Organomegaly, No Pulsatile Mass, Non Tender, Soft Rectal: Deferred Back: Normal Inspection, Other (surgical site well approximated, no erythema, no tenderness) Extremity: Normal Capillary Refill, Normal Inspection, Normal Range of Motion, Non Tender, No Calf Tenderness, No Pedal Edema, Other (slight clubbing of digits, toes and plantar surface of feet benign) Neurologic/Psychiatric: Alert, Oriented x3, Normal Mood/Affect Skin: Normal Color, Warm/Dry Lymphatic: No Adenopathy Results Lab Laboratory Tests 10/12/21 04:51: White Blood Count 10.0, Red Blood Count 3.33L, Hemoglobin 11.0L, Hematocrit 33L, Mean Corpuscular Volume 99, Mean Corpuscular Hemoglobin 33, Mean Corpuscular Hemoglobin Concent 33, Red Cell Distribution Width 15.4H, Platelet Count 201, Mean Platelet Volume 8.9L, Immature Granulocyte % (Auto) 1, Neutrophils (%) (Auto) 77H, Lymphocytes (%) (Auto) 14, Monocytes (%) (Auto) 7, Eosinophils (%) (Auto) 2, Basophils (%) (Auto) 0, Neutrophils # (Auto) 7.7, Lymphocytes # (Auto) 1.4, Monocytes # (Auto) 0.7, Eosinophils # (Auto) 0.2, Basophils # (Auto) 0.0, Immature Granulocyte # (Auto) 0.1, Sodium Level 134L, Potassium Level 4.0, Chloride Level 106, Carbon Dioxide Level 20L, Anion Gap 8, Blood Urea Nitrogen 9, Creatinine 0.81, Estimat Glomerular Filtration Rate 89, BUN/Creatinine Ratio 11, Glucose Level 129H, Calcium Level 8.6, Corrected Calcium 9.3, Phosphorus Level 2.8, Magnesium Level 1.6, Total Bilirubin 0.4, Aspartate Amino Transf (AST/SGOT) 21, Alanine Aminotransferase (ALT/SGPT) 16, Alkaline Phosphatase 62, Total Protein 5.5L, Albumin 3.1L Microbiology 10/10/21 Urine Culture - Final, Complete See Comments 10/10/21 Blood Culture - Preliminary, Resulted No growth Assessment/Plan Assessment/Plan Admission Dx SIRS Mild leukocytosis Intermittent fevers Chronic Atrial Fibrillation Chronic Hypertension Chronic Coronary Artery disease GERD Chronic Anticoagulation with NOAC Anemia Hyponatremia Assessment and Plan SIRS Mild leukocytosis Intermittent fevers Chronic Atrial Fibrillation Chronic Hypertension Chronic Coronary Artery disease GERD Chronic Anticoagulation with NOAC Anemia Hyponatremia Confusion SIRS with Mild leukocytosis and Intermittent fevers - with recent hardware placement in spine, plan was initially for pt to have Lumbar puncture, however, due to the nature of his surgery, Anesthesiology is uncomfortable with LP. -he would have to be off of the eliquis for another 48 hours, [address] place the LP being done on Friday. - Anesthesia is also deferring the LP to Radiology - to have this done with FLURO - which would put the LP being done 6 days in on IV antibiotics, IV antivirals, antifungals, and at that point, the efficacy of the LP with the inherent risk (and his surgical patch placement) is not worth the, by then, limited benefit on 6 days of therapy. - pt and his in agreement to not have LP - neither wanted the LP in the first place per Zoe's report - peripheral smear negative for acute pathology - however there is an anemia with decreased reticulocyte response - check Vitamin B12, folate and iron panel - started vitamin B12 injection and oral tabs today, folate and vitamin D as well Chronic Atrial Fibrillation - home medications restarted - he reports that his home metoprolol dose was decreased by silk screen frame assembler recently Chronic Hypertension - home medications restarted - he reports that his home metoprolol dose was decreased by silk screen frame assembler recently Chronic Coronary Artery disease GERD - restarted ppi Chronic Anticoagulation with NOAC -restart eliquis Anemia - mild anemia - monitor labs Hyponatremia - should improve with fluids Confusion - may be delirium, I do not want to start on medications which may further alter his cognition at this time. discussed with therapy - will request IRF jessi Warren has chronic gout - is on allopurinol, however due to slight rash on chest, and the risk of a drug reaction causing some of his symptoms, I will hold the allopurinol at this time. We are working him up for tick borne illness, HIV, [place] virus, and he has blood and urine cultures pending. Admission Dx SIRS Mild leukocytosis Intermittent fevers Chronic Atrial Fibrillation Chronic Hypertension Chronic Coronary Artery disease GERD Chronic Anticoagulation with NOAC Anemia Hyponatremia Clinical Quality Measures Admission Status Admission Dx SIRS Mild leukocytosis Intermittent fevers Chronic Atrial Fibrillation Chronic Hypertension Chronic Coronary Artery disease GERD Chronic Anticoagulation with NOAC Anemia Hyponatremia FARRUKH SCOTT MD Oct 12, 2021 07:31
--- NOTE | 2021-10-12 07:40 | Tele-ICU Progress Note ---
Subjective Date Seen by a Provider: Oct 12, 2021 Time Seen by a Provider: 07:40 Sepsis Event Evaluation Height, Weight, BMI Height: 6'0.00" Weight: 213lbs. 0.0oz. [id number]; 25.97 BMI Method:Stated Focused Exam Lactate Level 10/10/21 16:15: Lactic Acid Level 1.53 Time of Focused Exam: 02:00 Exam Exam Patient acknowledged, consented, and participated in this virtual visit which was conducted using real time audio/video Vital Signs Date Time Temp Pulse Resp B/P (MAP) Pulse Ox O2 Delivery O2 Flow Rate FiO2 10/12/21 06:00 81 146/89 96 Room Air 10/12/21 05:00 67 135/68 99 Room Air 10/12/21 04:00 95 Room Air 10/12/21 04:00 79 115/63 97 Room Air 10/12/21 03:00 62 107/63 97 Room Air 10/12/21 02:00 71 87/58 97 Room Air 10/12/21 01:00 79 10/12/21 01:00 79 99/57 93 Room Air 10/12/21 00:00 94 22 118/71 98 Room Air 10/11/21 23:59 95 Room Air 10/11/21 23:00 66 23 107/74 90 Room Air 10/11/21 22:00 70 20 100/62 90 Room Air 10/11/21 21:00 95 19 133/92 97 Room Air 10/11/21 20:00 90 12 123/78 93 Room Air 10/11/21 20:00 95 Room Air 10/11/21 19:00 98 12 102/81 96 Room Air 10/11/21 19:00 98 10/11/21 18:00 78 18 111/66 95 Room Air 10/11/21 17:00 86 18 116/84 96 Room Air 10/11/21 16:00 88 20 93 Room Air 10/11/21 16:00 95 Room Air 10/11/21 15:00 99 18 104/82 96 Room Air 10/11/21 14:00 109 20 132/93 96 Room Air 10/11/21 13:00 98 18 181/108 98 Room Air 10/11/21 13:00 102 10/11/21 12:00 80 16 119/87 98 Room Air 10/11/21 12:00 95 Room Air 10/11/21 11:36 36.8 90 19 140/91 91 Room Air 10/11/21 11:00 84 18 134/83 91 Room Air 10/11/21 10:00 87 18 162/95 96 Room Air 10/11/21 09:00 72 20 116/70 92 Room Air 10/11/21 08:00 80 16 101/65 98 Room Air 10/11/21 08:00 95 Room Air I & O 10/12/21 07:00 Intake Total 2697 ml Output Total 1875 ml Balance 822 ml Height & Weight Height: 6'0.00" Weight: 213lbs. 0.0oz. [id number]; 25.97 BMI Method:Stated General Appearance: No Apparent Distress, WD/WN HEENT: PERRL/EOMI, Other (thrush on tongue) Neck: Full Range of Motion, Normal Inspection, Non Tender, Supple Respiratory: Chest Non Tender, Lungs Clear, Normal Breath Sounds, No Accessory Muscle Use, No Respiratory Distress Cardiovascular: Irregularly Irregular (intermittent) Capillary Refill: Less Than 3 Seconds Extremity: Normal Capillary Refill, Normal Inspection, Normal Range of Motion, Non Tender, No Calf Tenderness, No Pedal Edema, Other (slight clubbing of digits) Neurologic/Psychiatric: Alert, Oriented x3, Normal Mood/Affect Skin: Normal Color, Warm/Dry Lymphatic: No Adenopathy Results Lab Laboratory Tests 10/10/21 15:34 10/11/21 05:31 10/12/21 04:51 WENDI SOTO MD Oct 12, 2021 07:40
[2021-10-12] MEDS: DRONEDARONE 400 MG TABLET PO SCH ×2 (08:45→20:18)
[2021-10-12] MEDS: fluCOnazole (DIFLUCAN) 10MG/ML 35ML BTL PO SCH (08:45)
[2021-10-12] MEDS: cefTRIAXone 2,000 MG/NS 50 ML IVPB IV SCH ×4 (08:45→18:44)
[2021-10-12] MEDS: DOXYCYCLINE INJECTION 100 MG in NS (IVPB) 100 ML IV SCH ×2 (08:46→20:56)
[2021-10-12] MEDS: RANOLAZINE ER 500 MG TAB (RANEXA) PO SCH ×2 (08:46→20:22)
[2021-10-12] MEDS: PANTOPRAZOLE 40 MG (PROTONIX) TAB PO SCH (08:46)
[2021-10-12] MEDS: LEVOTHYROXINE 50 MCG (LEVOTHROID) TAB PO SCH (08:46)
[2021-10-12] MEDS ORDERED: NON-FORMULARY MEDICATION 1 EA EA (Ranolazine (Ranolazine ER) 1,000 MG) PO SCH (09:00)
[2021-10-12] MEDS ORDERED: PANTOPRAZOLE 40 MG (PROTONIX) TAB PO SCH (09:00)
[2021-10-12] MEDS ORDERED: FUROSEMIDE 40 MG/4 ML INJ (LASIX) IVP ONE (09:15)
[2021-10-12] MEDS: ACYCLOVIR INJECTION 800 MG in NS (IVPB) 250 ML IV SCH ×2 (10:43→17:55)
[2021-10-12] MEDS ORDERED: CYANOCOBALAMIN INJ 1000 MCG/ML IM NR (11:00)
[2021-10-12] MEDS ORDERED: FOLIC ACID 1 MG TAB PO NR (11:00)
--- NOTE | 2021-10-12 11:04 | Physical Therapy Daily Note ---
PT Daily Note-Current Subjective Patient agrees to PT. Mental Status Patient Orientation: Normal For Age Attachments: Ford Catheter, IV Transfers SCALE: Activities may be completed with or without assistive devices. 3-Pxsenkblbg-fioxrtc completes the activity by him/herself with no assistance from a helper. 5-Set-up or Clean-up Assistance-helper sets up or cleans up; patient completes activity. [place] assists only prior to or following the activity. 4-Supervision or Touching Assistance-helper provides verbal cues and/or touching/steadying and/or contact guard assistance as patient completes activity. Assistance may be provided throughout the activity or intermittently. 3-Partial/Moderate Assistance-helper does LESS THAN HALF the effort. [place] lifts, holds or supports trunk or limbs, but provides less than half the effort. 2-Substantial/Maximal Assistance-helper does MORE THAN HALF the effort. [place] lifts or holds trunk or limbs and provides more than half the effort. 9-Eyzmakism-kinkho does ALL the effort. Patient does none of the effort to complete the activity. Or, the assistance of 2 or more helpers is required for the patient to complete the activity. If activity was not attempted, code reason: 7-Patient Refused. 9-Not Applicable-not attempted and the patient did not perform the activity before the current illness, exacerbation or injury. 10-Not Attempted due to Environmental Limitations-(lack of equipment, weather restraints, etc.). 88-Not Attempted due to Medical Conditions or Safety Concerns. Lying to Sitting/Side of Bed(Q: 6 Sit to Stand (QC): 4 Chair/Fox-hj-Snjho Xfer(QC): 4 CGA for safety Weight Bearing Right Lower Extremity: Right Full Weight Bearing Left Lower Extremity: Left Full Weight Bearing Gait Training Distance: 200' Walk 10 feet (QC): 4 Walk 50 ft with 2 Turns(QC): 4 Walk 150 ft (QC): 4 Gait Assistive Device: FWW patient c/o right LE weakness Exercises Seated Therapy Exercises: Ankle pumps, Long arc quads Seated Reps: 15 Assessment Patient up in recliner with needs met. Improved on this date with increase in distance and mobility. Patient c/o inconsistent daily physical ability. Physician consulted. PT [employer] Room Attendant Goals Senior Living Goals PT Senior Living Goals Time Frame: Oct 26, 2021 Roll Left & Right (QC): 6 Sit to Lying (QC): 6 Lying-Sitting on Side/Bed(QC): 6 Sit to Stand (QC): 6 Chair/Qet-yo-Wdlrt Xfer(QC): 4 Toilet Transfer (QC): 4 Does the Patient Walk: Yes Walk 10 feet (QC): 4 Walk 50ft with 2 Turns (QC): 4 Walk 150 ft (QC): 4 PT Plan Treatment/Plan Treatment Plan: Continue Plan of Care Treatment Plan: Bed Mobility, Education, Functional Activity Rachelle, Functional Strength, Group Therapy, Gait, Safety, Therapeutic Exercise, Transfers Treatment Duration: Nov 09, 2021 Frequency: 6 times per week Estimated Hrs Per Day: .25 hour per day Patient and/or Family Agrees t: Yes Time/GCodes Time In: 1000 Time Out: 1014 Total Billed Treatment Time: 14 Total Billed Treatment 1 visit FA 14 min PEACE BLANTON PT Oct 12, 2021 11:04
[2021-10-12] MEDS: VANCOMYCIN 1500 MG/NS 500 ML IVPB IV SCH ×2 (13:42)
[2021-10-12 18:27] VITALS: BP 148/78
[2021-10-12 19:16] VITALS: BP 101/59
[2021-10-12 20:23] VITALS: BP 112/72
[2021-10-12] MEDS ORDERED: MAGNESIUM OXIDE (MAG-OX)400 MG TAB PO SCH (21:00)
[2021-10-12] MEDS ORDERED: MIRTAZAPINE 15 MG (REMERON) TAB PO SCH (21:00)
[2021-10-12] MEDS ORDERED: ASPIRIN E.C. 81 MG (ECOTRIN) TAB PO SCH (21:00)
[2021-10-12] MEDS: APIXABAN 5 MG (ELIQUIS) TABLET PO SCH (21:52)
[2021-10-12 23:28] VITALS: BP 119/76
[2021-10-13] MEDS: ACYCLOVIR INJECTION 800 MG in NS (IVPB) 250 ML IV SCH ×2 (03:00→10:30)
[2021-10-13 03:54] VITALS: BP 133/60
[2021-10-13] MEDS ORDERED: TROUGH ORDER-PHARMACY XX ONE (04:00)
[2021-10-13 04:27] LABS: BASOPHILS % (AUTO) 1 % (0-10); EOSINOPHILS # (AUTO) 0.2 10^3/uL (0.0-0.3); EOSINOPHILS % (AUTO) 3 % (0-10); HEMATOCRIT 35 % (40-54); HEMOGLOBIN 11.8 g/dL (13.3-17.7); LYMPHOCYTES # (AUTO) 1.2 10^3/uL (1.0-4.0); LYMPHOCYTES % (AUTO) 17 % (12-44); MEAN CORPUSCULAR HEMOGLOBIN 33 pg (25-34); MEAN CORPUSCULAR HGB CONC 34 g/dL (32-36); MEAN CORPUSCULAR VOLUME 97 fL (80-99); MEAN PLATELET VOLUME 8.8 fL (9.0-12.2); MONOCYTES # (AUTO) 0.5 10^3/uL (0.0-1.0); MONOCYTES % (AUTO) 7 % (0-12); NEUTROPHILS # (AUTO) 5.2 10^3/uL (1.8-7.8); NEUTROPHILS % (AUTO) 73 % (42-75); PLATELET COUNT 246 10^3/uL (130-400); WHITE BLOOD COUNT 7.2 10^3/uL (4.3-11.0)
[2021-10-13 04:32] LABS: ALBUMIN 3.2 GM/DL (3.2-4.5); POTASSIUM 3.4 MMOL/L (3.6-5.0)
[2021-10-13 04:33] LABS: CALCIUM 8.7 MG/DL (8.5-10.1)
[2021-10-13 04:35] LABS: TOTAL PROTEIN 5.7 GM/DL (6.4-8.2)
[2021-10-13 04:36] LABS: BILIRUBIN,TOTAL 0.4 MG/DL (0.1-1.0)
[2021-10-13 04:38] LABS: CREATININE SERUM 0.78 MG/DL (0.60-1.30); PHOSPHORUS 2.7 MG/DL (2.3-4.7)
[2021-10-13 04:41] LABS: MAGNESIUM 1.5 MG/DL (1.6-2.4)
[2021-10-13 04:48] LABS: VANCOMYCIN,TROUGH 15.5 UG/ML (10.0-20.0)
[2021-10-13] MEDS: VANCOMYCIN 1500 MG/NS 500 ML IVPB IV SCH ×2 (05:16)
[2021-10-13] MEDS: ACETAMINOPHEN 500 MG TAB (TYLENOL) PO SCH ×3 (06:23→11:21)
[2021-10-13] MEDS ORDERED: CYANOCOBALAMIN 1,000 MCG (VITAMIN B-12) TABLET PO SCH (07:00)
[2021-10-13] MEDS ORDERED: VITAMIN D3 10 MCG (400 UNITS) TABLET PO SCH (07:00)
[2021-10-13 07:03] VITALS: BP 94/58
[2021-10-13] MEDS: cefTRIAXone 2,000 MG/NS 50 ML IVPB IV SCH ×2 (07:39)
[2021-10-13] MEDS: DOXYCYCLINE INJECTION 100 MG in NS (IVPB) 100 ML IV SCH (07:54)
[2021-10-13] MEDS: RANOLAZINE ER 500 MG TAB (RANEXA) PO SCH (07:56)
[2021-10-13] MEDS: APIXABAN 5 MG (ELIQUIS) TABLET PO SCH (07:56)
[2021-10-13] MEDS: DRONEDARONE 400 MG TABLET PO SCH (07:56)
[2021-10-13] MEDS: PANTOPRAZOLE 40 MG (PROTONIX) TAB PO SCH (07:56)
[2021-10-13] MEDS: LEVOTHYROXINE 50 MCG (LEVOTHROID) TAB PO SCH (07:56)
[2021-10-13] MEDS: fluCOnazole (DIFLUCAN) 10MG/ML 35ML BTL PO SCH (07:57)
--- NOTE | 2021-10-13 08:56 | Discharge Summary ---
Diagnosis/Chief Complaint Date of Admission Oct 10, 2021 at 20:14 Date of Discharge Discharge Date: Oct 13, 2021 Primary Care Pepper Baeza MD Discharge Summary Discharge Physical Exam Allergies: Coded Allergies: No Known Drug Allergies (Verified , 02/23/08) Vitals & I&Os Vital Signs Date Time Temp Pulse Resp B/P (MAP) Pulse Ox O2 Delivery O2 Flow Rate FiO2 10/13/21 08:00 94 Room Air 10/13/21 07:03 37.3 83 20 94/58 (70) General Appearance: No Apparent Distress Cardiovascular: Regular Rate, Rhythm, No Murmur Neurologic/Psychiatric: Alert, Oriented x3 Hospital Course Patient was admitted to the hospital secondary to weakness and falls and fever with SIRS criteria. They were unable to identify a source of infection and offered lumbar puncture but given his chronic anticoagulation it was unable to be obtained in a reasonable time. He was treated with IV antibiotics, antivirals, and antifungals. He and Dr. Baeza then discussed the risk and benefits and elected not to pursue LP after 6 days on IV antibiotic therapy. He was seen by physical therapy and Occupational Therapy and deemed an appropriate candidate for inpatient rehab. He was discharged there in stable improved condition to follow-up with Dr. Baeza upon discharge. Labs (last 24 hrs) Microbiology 10/12/21 Urine Culture - Final, Complete NO GROWTH 10/10/21 Blood Culture - Final, Complete No growth Patient resulted labs reviewed. Pending Labs Discussion & Recommendations Discharge Planning: <30 minutes discharge planning Discharge Home Medications: Active Scripts Active Reported Vitamin D3 (Cholecalciferol (Vitamin D3)) 25 Mcg (1000 Unit) Tab.chew 25 Mcg PO DAILY Krill Oil 1,000 mg Softgel (Krill/Om3/Dha/Epa/Om6/Lip/Astx) 1,000-130MG Capsule 1 Each PO BID Zinc 50 Mg Tablet 50 Mg PO DAILY Furosemide 20 Mg Tablet 20 Mg PO DAILY PRN Metoprolol Succinate 25 Mg Tab.er.24h 25 Mg PO HS Mirtazapine 15 Mg Tablet 7.5 Mg PO HS TAKES OF A 15MG TAB Calcium Carbonate 500 Mg Calcium (1250 Mg) Tablet 500 Mg PO DAILY Lisinopril 5 Mg Tablet 2.5 Mg PO BID TAKES 1/2 OF (5MG) TAB Allopurinol 100 Mg Tablet 100 Mg PO HS Potassium Gluconate 595 Mg (99 Mg) Tablet.er 99 Mg PO DAILY Vitamin B Complex-Vitamin C (B-Complex with Vitamin C) 1 Each Tablet 1 Each PO DAILY Multaq (Dronedarone HCl) 400 Mg Tablet 400 Mg PO BID Hydrocodone-Acetamin 10-325 mg (Hydrocodone/Acetaminophen) 1 Each Tablet 1 Ea PO Q6H PRN Ranolazine ER (Ranolazine) 1,000 Mg Tab.er.12h 1,000 Mg PO BID Centrum Silver Ultra Men's Tab (Multivit-Min/FA/Lycopene/Lut) 1 Each Tablet 1 Each PO DAILY Atorvastatin Calcium 40 Mg Tablet 40 Mg PO HS Magnesium (Magnesium Oxide) 400 Mg Tablet 400 Mg PO HS Eliquis (Apixaban) 5 Mg Tablet 5 Mg PO BID Pantoprazole Sodium 40 Mg Tablet.dr 40 Mg PO DAILY Levothyroxine Sodium 50 Mcg Tablet 50 Mcg PO DAILY Aspirin EC (Aspirin) 81 Mg Tablet.dr 81 Mg PO HS Doxazosin Mesylate 4 Mg Tablet 4 Mg PO HS Allopurinol 100 Mg Tablet 200 Mg PO DAILY TAKES 2 (100MG) TABS Instructions to patient/family Please see electronic discharge instructions given to patient. BELGICA KOLB MD Oct 13, 2021 08:56
[2021-10-13] MEDS ORDERED: FOLIC ACID 1 MG TAB PO SCH (09:00)
[2021-10-13] MEDS: D5 NS 1000 ML IV SOLUTION 1,000 ML IV SCH (11:21)
[2021-10-19] MEDS ORDERED: VITAMIN D2 1.25 MG (50,000 UNITS) CAP PO SCH (09:00)
== END 2021-10-13 11:30 | DRG 864 ==
LOC: EDUNIT# 15:22 → ER 15:24 → ICU 20:14 → 4TH 10-12 17:47
PROVIDERS: ADMIT Family Medicine; ATTEND Family Medicine
DX: R50.9 Fever, unspecified (principal); R65.10 Systemic inflammatory response syndrome (SIRS) of non-infectious origin without acute organ dysfunction; I48.20 Chronic atrial fibrillation, unspecified; E87.1 Hypo-osmolality and hyponatremia; Z79.82 Long term (current) use of aspirin; Z79.899 Other long term (current) drug therapy; Z95.1 Presence of aortocoronary bypass graft; M10.9 Gout, unspecified; I25.10 Atherosclerotic heart disease of native coronary artery without angina pectoris; E03.9 Hypothyroidism, unspecified; K21.9 Gastro-esophageal reflux disease without esophagitis; G89.29 Other chronic pain; M54.9 Dorsalgia, unspecified; Z95.5 Presence of coronary angioplasty implant and graft; E78.00 Pure hypercholesterolemia, unspecified; M19.90 Unspecified osteoarthritis, unspecified site; Z85.46 Personal history of malignant neoplasm of prostate; Z85.828 Personal history of other malignant neoplasm of skin; Z92.3 Personal history of irradiation; J32.0 Chronic maxillary sinusitis; R33.9 Retention of urine, unspecified; R41.0 Disorientation, unspecified; G47.33 Obstructive sleep apnea (adult) (pediatric); Z98.1 Arthrodesis status; Z66 Do not resuscitate; I48.0 Paroxysmal atrial fibrillation; Z79.01 Long term (current) use of anticoagulants; D72.829 Elevated white blood cell count, unspecified; D64.9 Anemia, unspecified; R53.1 Weakness; Z20.822 Contact with and (suspected) exposure to COVID-19
CPT/HCPCS: 36415; 51702; 70450; 70551; 71045; 72125; 72128; 72131; 72148; 80053; 80202; 81000; 82607; 82728; 82746; 83540; 83550; 83605; 83735; 84100; 84145; 84439; 84443; 85007; 85025; 85027; 85045; 85055; 85610; 85730; 86141; 86618; 86666; 86668; 86757; 87040; 87088; 87636; 96365; 96375

== ENCOUNTER 2021-10-13 11:31 | Inpatient (IN) | payer MEDICARE, BC ==
[~2021-10-13] VITALS: Ht 182.9 cm; Wt 89.0 kg
--- NOTE | 2021-10-13 05:23 | PM&R Post Admission Assessment ---
PM&R Date of Visit: Oct 13, 2021 Time of Visit: 12:00 History of Present Illness CC: Debility HPI: This is an 81yoM clinic patient of Dr. Baeza who was admitted to the ICU then transferred to the floor due to fever of unknown origin and significant change of status. IV fluids were initiated, empiric antibiotics initiated to cover for any type of Meningeal source of the fever. LP could not be done due to recent back surgery and risk outweighed the benefits so he is also covered for tick borne illness. He will come to Inpatient Rehab for aggressive PT/OT in order to regain enough function to go back home. He was confused but he is now much improved. Past Pcpurtr-Iszxwd-Cnyteg Hx Past Med/Social Hx: Reviewed Nursing Past Med/Soc Hx, Reviewed and Corrections made Patient Social History Marrital Status: Employed/Student: retired Alcohol Use: Denies Use Smoking Status: Former Smoker Type Used: Cigarettes 2nd Hand Smoke Exposure: Yes Recent Hopitalizations: No Immunizations Up To Date Tetanus Booster (TDap): More than 5yrs Date of Pneumonia Vaccine: Nov 12, 2016 Date of Influenza Vaccine: Feb 13, 2021 Seasonal Allergies Seasonal Allergies: No Past Medical History Surgeries: Abdominal, CABG, Coronary Stent, Orthopedic, Prostatectomy Respiratory: Sleep Apnea Currently Using CPAP: Yes Currently Using BIPAP: No Cardiac: Atrial Fibrillation, Coronary Artery Disease, High Cholesterol, Hy pertension Reproductive: No Genitourinary: Prostate Problems Gastrointestinal: Abdominal Hernia, Gastroesophageal Reflux Musculoskeletal: Arthritis, Chronic Back Pain, Gout Endocrine: Hypothyroidsim Cancer: Prostate, Skin Did You Recieve Any Treatments: Yes What Type of Treatment Did You: Radiation, Surgical Intervention History of Blood Disorders: No Adverse Reaction to Blood Horowitz: No Family History Cardiovascular disease 19 MOTHER Myocardial infarction 19 FATHER Heart Disease, CAD Over 55 Years Old, Hypertension PM&R Allergy/Meds/Data Review Allergies Coded Allergies: No Known Drug Allergies (Verified , 02/23/08) Home Medications Scheduled Allopurinol (Allopurinol), 200 MG PO DAILY, (Reported) Allopurinol (Allopurinol), 100 MG PO HS, (Reported) Apixaban (Eliquis), 5 MG PO BID, (Reported) Aspirin (Aspirin EC), 81 MG PO HS, (Reported) Atorvastatin Calcium (Atorvastatin Calcium), 40 MG PO HS, (Reported) B-Complex with Vitamin C (Vitamin B Complex-Vitamin C), 1 EACH PO DAILY, (Reported) Calcium Carbonate (Calcium Carbonate), 500 MG PO DAILY, (Reported) Cholecalciferol (Vitamin D3) (Vitamin D3), 25 MCG PO DAILY, (Reported) Doxazosin Mesylate (Doxazosin Mesylate), 4 MG PO HS, (Reported) Dronedarone HCl (Multaq), 400 MG PO BID, (Reported) Krill/Om3/Dha/Epa/Om6/Lip/Astx (Krill Oil 1,000 mg Softgel), 1 EACH PO BID, (R eported) Levothyroxine Sodium (Levothyroxine Sodium), 50 MCG PO DAILY, (Reported) Lisinopril (Lisinopril), 2.5 MG PO BID, (Reported) Magnesium Oxide (Magnesium), 400 MG PO HS, (Reported) Metoprolol Succinate (Metoprolol Succinate), 25 MG PO HS, (Reported) Mirtazapine (Mirtazapine), 7.5 MG PO HS, (Reported) Multivit-Min/FA/Lycopene/Lut (Centrum Silver Ultra Men's Tab), 1 EACH PO DAILY, (Reported) Pantoprazole Sodium (Pantoprazole Sodium), 40 MG PO DAILY, (Reported) Potassium Gluconate (Potassium Gluconate), 99 MG PO DAILY, (Reported) Ranolazine (Ranolazine ER), 1,000 MG PO BID, (Reported) Zinc (Zinc), 50 MG PO DAILY, (Reported) Scheduled PRN Furosemide (Furosemide), 20 MG PO DAILY PRN for FLUID RETENTION, (Reported) Hydrocodone/Acetaminophen (Hydrocodone-Acetamin 10-325 mg), 1 EA PO Q6H PRN for PAIN-MODERATE (5-7), (Reported) Discontinued Medications Calcium Carbonate/Vitamin D3 (Calcium 600-D3 20Mcg(800 Unit)), 1 EACH PO HS, (Reported) Discontinued Reason: Prescription changed Cholecalciferol (Vitamin D3) (Vitamin D3), 25 MCG PO DAILY Discontinued Reason: Duplicate Order Metoprolol Succinate (Metoprolol Succinate), 50 MG PO DAILY, (Reported) Discontinued Reason: No Longer Taking Miconazole Nitrate (Lotrimin AF), 0 GM TOP BID Discontinued Reason: No Longer Taking [place]-3 Fatty Acids/Fish Oil ([place] 3 1,000 mg Softgel), 1 EACH PO HS, (Reported) Discontinued Reason: No Longer Taking Sucralfate (Sucralfate), 1 GM PO ACHS Discontinued Reason: No Longer Taking Current Medications Current Medications Reviewed Review of Systems Constitutional: see HPI, malaise, weakness EENTM: no symptoms reported Respiratory: dyspnea on exertion Cardiovascular: no symptoms reported Gastrointestinal: loss of appetite Genitourinary: no symptoms reported Musculoskeletal: back pain Skin: no symptoms reported Psychiatric/Neurological: Depressed All Other Systems Reviewed Negative Unless Noted: Yes Physical Exam Physical Exam Vital Signs Capillary Refill : Height, Weight, BMI Height: 6'0.00" Weight: 213lbs. 0.0oz. [id number]; 25.97 BMI Method:Stated General Appearance: No Apparent Distress, WD/WN, Chronically ill Eyes: Bilateral Eye Normal Inspection, Bilateral Eye PERRL HEENT: PERRL/EOMI, Normal ENT Inspection, Pharynx Normal Neck: Full Range of Motion, Normal Inspection, Non Tender, Supple, Carotid Bruit Respiratory: Chest Non Tender, Lungs Clear, No Accessory Muscle Use, No Respiratory Distress, Decreased Breath Sounds Cardiovascular: Regular Rate, Rhythm, No Edema, No Gallop, No JVD, No Murmur, Normal Peripheral Pulses Gastrointestinal: Normal Bowel Sounds, No Organomegaly, No Pulsatile Mass, Non Tender, Soft Back: Normal Inspection, No CVA Tenderness, No Vertebral Tenderness Extremity: Normal Capillary Refill, Normal Inspection, Normal Range of Motion, Non Tender, No Calf Tenderness, No Pedal Edema Neurologic/Psychiatric: Alert, Oriented x3, No Motor/Sensory Deficits, Normal Mood/Affect, certified energy manager II-XII Norm as Tested, Abnormal Gait, Depressed Affect, Motor Weakness (Generalized 3/5 all extremities) Skin: Normal Color, Warm/Dry Lymphatic: No Adenopathy PM&R Medical Assessment & Plan REHAB/MEDICAL ASSESSMENT AND PLAN: REHAB IMPAIRMENT GROUP: Debility ETIOLOGIC DIAGNOSIS: Debility The comorbidities that impact the patients function and/or functional outcome by: Advanced age, fall risk, frail status, current treatment for presumed meningitis, antibiotic maintenance REHAB PLAN: The patient is being admitted to our comprehensive inpatient rehabilitation facility and can tolerate the intensity of service consisting of at least: 180 minutes of therapy a day, 5 out of 7 days a week Rehab treatment will consist of: PT and OT will focus on regaining enough fun ction with use of assistive devices in order to return back home with spouse The patient/family has a good understanding of our discharge process and will benefit from an interdisciplinary inpatient rehabilitation program. The patient has potential to make improvement and is in need of at least two of the following multidisciplinary therapies including but not limited to physical, occupational, speech, and prosthetics and orthotics. Additionally the patient will need services from respiratory, nutritional services, wound care, psychology, etc. (Customize this to each patient). Given the patients complex condition and risk of further medical complications, rehabilitation services cannot be safely or effectively provided at a lower level of care such as a [facility]. BARRIERS TO DISCHARGE: Fall risk ESTIMATED LOS: 7 days DISPOSITION: Home RELEVANT CHANGES SINCE PREADMISSION SCREENING: I have compared the patients medical and functional status at the time of the preadmission screening and there are: no changes PROGNOSIS: Fair REHABILITATION GOALS: 1. PT and OT will focus on regaining enough function with use of assistive devices in order to return back home with spouse All the above goals were reviewed with the patient and he/she is in agreement. By signing this document, I acknowledge that I have personally performed a full physical examination on this patient within 24 hours of admission to this inpatient rehabilitation facility and have determined the patient to be able to tolerate the above course of treatment at an intensive level for a reasonable period of time. I will be completing a detailed individualized Plan of Care for this patient by day #4 of the patients stay based upon the Preadmission Screen, the Post-Admission Evaluation, and the therapy evaluations. Admission Dx/Comorbidities: (1) Debility ICD Codes: R53.81 - Other malaise (2) Altered mental status Status: Acute ICD Codes: R41.82 - Altered mental status, unspecified (3) Maxillary sinusitis Status: Acute ICD Codes: J32.0 - Chronic maxillary sinusitis (4) Fever of unknown origin Status: Acute ICD Codes: R50.9 - Fever, unspecified (5) Urinary retention Status: Acute ICD Codes: R33.9 - Retention of urine, unspecified (6) Febrile illness Status: Acute ICD Codes: R50.9 - Fever, unspecified (7) Myopathy ICD Codes: G72.9 - Myopathy, unspecified (8) CAD (coronary artery disease) ICD Codes: I25.10 - Atherosclerotic heart disease of [place] coronary artery without angina pectoris (9) Sleep apnea in adult ICD Codes: G47.30 - Sleep apnea, unspecified Assessment/Plan Assessment and Plan Assess & Plan/Chief Complaint Assessment: Debility Fever of unknown origin presumed meningitis placed on vancomycin, Rocephin, doxycycline, acyclovir, Diflucan by PCP CAD Hypertension Hyperlipidemia BPH Urinary retention Fall risk Obstructive sleep apnea Plan: Supportive care Antibiotics Monitor closely PT OT ABIEL SAUNDERS DO Oct 13, 2021 05:23
[~2021-10-13 11:31] MED LIST changes: +ALPRAZolam 0.25 MG (XANAX) TAB PO PRN; +BISACODYL 10 MG SUPP (DULCOLAX) PR PRN; +CALC500T64 PO; +CALCIUM CARBONATE 500 MG (TUMS) TAB.CHEW PO PRN; +CHOL10008 PO; +DOCUSATE SODIUM 100 MG (COLACE) CAP PO PRN; +FLEET ENEMA ADULT 1 EA BTL PR PRN; +KRIL1CAP PO; +LACTULOSE SYRUP 10GM/15ML (ENULOSE) 30ML UDC PO PRN; +LOPERAMIDE 2 MG (IMODIUM) TABLET PO PRN; +MELATONIN 3 MG TABLET PO PRN; +MIRT-68 PO; +ONDANSETRON 4 MG (ZOFRAN) ORAL DISSOLVE TAB PO PRN; +diphenhydrAMINE 25 MG TAB (BENADRYL) PO PRN; +guaiFENesin/CODEINE (ROBITUSSIN AC) 10ML UDC PO PRN
[2021-10-13 11:35] VITALS: BP 144/80
[2021-10-13] MEDS: DOCUSATE SODIUM 100 MG (COLACE) CAP PO SCH ×2 (11:51→21:27)
[2021-10-13] MEDS: SENNA W/DOCUSATE (SENOKOT S) TABLET PO SCH ×2 (11:52→21:27)
[2021-10-13] MEDS: polyethylene glycoL POWDER 17 GM (MIRALAX) PACK PO SCH ×2 (11:52→21:27)
[2021-10-13] MEDS ORDERED: ONDANSETRON 4 MG/2 ML (SDV) Z0FRAN IV PRN (12:00)
--- NOTE | 2021-10-13 12:24 | Physical Therapy Evaluation ---
PT Evaluation-General Medical Diagnosis Admission Date Oct 13, 2021 at 11:31 Medical Diagnosis: Sepsis Onset Date: Oct 11, 2021 Therapy Diagnosis Therapy Diagnosis: Impaired mobility, (R) side weakness Height/Weight Height (Feet): 6 Height (Inches): 0.00 Weight (Pounds): 213 Weight (Ounces): 0.0 Precautions Precautions/Isolations: Fall Prevention, Standard Precautions Referral Physician: Cherie Reason for Referral: Evaluation/Treatment Medical History Pertinent Medical History: Atrial Fib, CABG, CAD, HTN, NE Additional Medical History lumbar fusion with (R) LE weakness, cardiac stent Current History Admit via ED due to weakness, confusion, falls. Found to be septic with elevated temp. Reviewed History: Yes Social History Home: Single Level Current Living Status: Significant Other Entry Into Home: Stairs With Railing PT Steps Into Home: 4 PT Steps Inside Home: 0 Prior Prior Level of Function SCALE: Activities may be completed with or without assistive devices. 7-Tjzwjkpeqh-jyrtaqu completes the activity by him/herself with no assistance from a helper. 5-Set-up or Clean-up Assistance-helper sets up or cleans up; patient completes activity. [place] assists only prior to or following the activity. 4-Supervision or Touching Assistance-helper provides verbal cues and/or touching/steadying and/or contact guard assistance as patient completes activity. Assistance may be provided throughout the activity or intermittently. 3-Partial/Moderate Assistance-helper does LESS THAN HALF the effort. Addison lifts, holds or supports trunk or limbs, but provides less than half the effort. 2-Substantial/Maximal Assistance-helper does MORE THAN HALF the effort. Addison lifts or holds trunk or limbs and provides more than half the effort. 5-Srjdexdkk-txgbwz does ALL the effort. Patient does none of the effort to complete the activity. Or, the assistance of 2 or more helpers is required for the patient to complete the activity. If activity was not attempted, code reason: 7-Patient Refused. 9-Not Applicable-not attempted and the patient did not perform the activity before the current illness, exacerbation or injury. 10-Not Attempted due to Environmental Limitations-(lack of equipment, weather restraints, etc.). 88-Not Attempted due to Medical Conditions or Safety Concerns. Bed Mobility: 6 Transfers (B,C,W/C): 6 Gait: 6 Stairs: 6 Wheelchair Mobility: 9 Indoor Mobility (Ambulation): Independent Stairs: Independent Prior Devices Use: Walker PT Evaluation-Current Subjective Pt notes (R) LE weakness for the past 2-3 weeks. Pt notes dizziness and instability for the past 3 weeks. No pain reported today. Objective Patient Orientation: Person, Place, Time, Situation Attachments: Ford Catheter, IV ROM/Strength ROM Upper Extremities (B) UE WFL ROM Lower Extremities (B) LE WFL Strength Upper Extremities (B) UE gross strength is 4-/5. Strength Lower Extremities (R) hip flexion, hip abduction, hip extension, knee extension, and knee flexion MMT 3+/5. (R) lower leg MMT 4-/5. (L) LE gross MMT 4/5, with no deficits noted. Integumentary/Posture Bowel Incontinence: No Bladder Incontinence: Ford Cath Neuromuscular (Tone, Coordination, Reflexes) Normal (B) LE reflexes. Normal (B) LE tone and intact (B) coordination. Sensory Vision: Wears Glasses Hearing: Impaired Sensation Right Upper Extremit: Intact Sensation Left Upper Extremity: Intact Sensation Right Lower Extremit: Intact Sensation Left Lower Extremity: Intact Transfers Roll Left & Right (QC): 5 Sit to Lying (QC): 5 Lying to Sitting/Side of Bed(Q: 5 Sit to Stand (QC): 4 Chair/Fqj-zp-Nkdpg Xfer(QC): 4 Toilet Transfer (QC): 4 Car Transfer (QC): 4 Gait Does the Patient Walk?: Yes Mode of Locomotion: Walk Anticipated Mode of Locomotion: Walk Walk 10 feet (QC): 4 Walk 50 ft with 2 Turns(QC): 4 Walk 150 ft (QC): 4 Walking 10ft/uneven surface-QC: 4 Distance: 186ft Gait Assistive Device: FWW Comments/Gait Description Ataxia during gait due to (R) LE weakness. Pt had to stop 1x and perform standing rest to avoid the (R) knee giving out. Wheelchair Training Does the Pt Use a Wheelchair?: No Wheel 50 ft with 2 turns (QC): 9 Wheel 150 ft (QC): 9 Stairs 1 Step (curb) (QC): 4 4 Steps (QC): 88 12 Steps (QC): 88 Walking Assistive Device: Walker Balance Sitting Static: Normal Sitting Dynamic: Normal Standing Static: Normal Standing Dynamic: Fair Picking up an Object (QC): 4 Special Test Comments Pt is not confident that his (R) LE will keep him steady while performing standing tasks. Assessment/Needs (R) LE weakness impairs his mobility with transfers, gait, and steps. Rehab Potential: Good PT Senior Care Goals Senior Care Goals PT Piece Presser Goals Time Frame: Nov 03, 2021 Roll Left & Right (QC): 6 Sit to Lying (QC): 6 Lying-Sitting on Side/Bed(QC): 6 Sit to Stand (QC): 6 Chair/Kca-sm-Vvxlo Xfer(QC): 6 Toilet Transfer (QC): 6 Car Transfer (QC): 6 Does the Patient Walk: Yes Walk 10 feet (QC): 6 Walk 50ft with 2 Turns (QC): 6 Walk 150 ft (QC): 6 Walking 10ft on Uneven Surface: 6 1 Step (curb) (QC): 6 4 Steps (QC): 6 12 Steps (QC): 6 Picking up an Object (QC): 6 Does the Pt use WC or Scooter?: No Wheel 50 feet with 2 turns (QC: 9 Wheel 150 feet: 9 PT Plan Problem List Problem List: Activity Tolerance, Functional Strength, Safety, Balance, Gait, Transfer, Bed Mobility Treatment/Plan Treatment Plan: Continue Plan of Care Treatment Plan: Bed Mobility, Concurrent Therapy, Functional Activity Rachelle, Functional Strength, Group Therapy, Gait, Safety, Therapeutic Exercise, Transfers Treatment Duration: Nov 03, 2021 Frequency: At least 5 of 7 days/Wk (IRF) Estimated Hrs Per Day: 1.5 hours per day Patient and/or Family Agrees t: Yes Time/GCodes Time In: 1130 Time Out: 1210 Total Billed Treatment Time: 40 Total Billed Treatment 1, ANITRA Chand PT Oct 13, 2021 12:24
[2021-10-13] MEDS: ACYCLOVIR INJECTION 800 MG in NS (IVPB) 250 ML IV SCH (18:01)
[2021-10-13 19:57] VITALS: BP 154/85
[2021-10-13] MEDS: cefTRIAXone 2,000 MG in NS (IVPB) 50 ML IV SCH (20:09)
[2021-10-13] MEDS: ASPIRIN E.C. 81 MG (ECOTRIN) TAB PO SCH (20:21)
[2021-10-13] MEDS: APIXABAN 5 MG (ELIQUIS) TABLET PO SCH (20:21)
[2021-10-13] MEDS: RANOLAZINE ER 500 MG TAB (RANEXA) PO SCH (20:21)
[2021-10-13] MEDS: MAGNESIUM OXIDE (MAG-OX)400 MG TAB PO SCH (20:21)
[2021-10-13] MEDS: MIRTAZAPINE 15 MG (REMERON) TAB PO SCH (20:21)
[2021-10-13] MEDS: DRONEDARONE 400 MG TABLET PO SCH (20:22)
[2021-10-13] MEDS: DOXYCYCLINE INJECTION 100 MG in NS (IVPB) 100 ML IV SCH (20:44)
[2021-10-13] MEDS: VANCOMYCIN INJECTION 1,500 MG in NS IV 500 ML 500 ML IV SCH (22:47)
[2021-10-14] MEDS: ACYCLOVIR INJECTION 800 MG in NS (IVPB) 250 ML IV SCH ×3 (02:24→18:51)
--- NOTE | 2021-10-14 05:54 | PM&R Progress Note ---
Subjective HPI/CC On Admission Date Seen by Provider: Oct 14, 2021 Time Seen by Provider: 06:00 Subjective/Events-last exam 10/14/2021: Patient doing pretty well Slept soundly no pain is reported IV antibiotics maintained Some confusion Monitor closely Review of Systems General: Fatigue, Malaise Objective Exam Vital Signs Vital Signs Date Time Temp Pulse Resp B/P (MAP) Pulse Ox O2 Delivery O2 Flow Rate FiO2 10/14/21 09:59 Room Air 10/14/21 07:30 37.3 90 18 162/90 (114) 97 Capillary Refill : General Appearance: No Apparent Distress, WD/WN, Chronically ill HEENT: PERRL/EOMI, Normal ENT Inspection, Pharynx Normal Neck: Full Range of Motion, Normal Inspection, Non Tender, Supple, Carotid Bruit Respiratory: Chest Non Tender, Lungs Clear, No Accessory Muscle Use, No Respiratory Distress, Decreased Breath Sounds Cardiovascular: Regular Rate, Rhythm, No Edema, No Gallop, No JVD, No Murmur, Normal Peripheral Pulses Gastrointestinal: Normal Bowel Sounds, No Organomegaly, No Pulsatile Mass, Non Tender, Soft Back: Normal Inspection, No CVA Tenderness, No Vertebral Tenderness Extremity: Normal Capillary Refill, Normal Inspection, Normal Range of Motion, Non Tender, No Calf Tenderness, No Pedal Edema Neurologic/Psychiatric: Alert, Oriented x3, No Motor/Sensory Deficits, Normal Mood/Affect, scientific publications editor II-XII Norm as Tested, Abnormal Gait, Depressed Affect, Motor Weakness (Generalized 3/5 all extremities) Skin: Normal Color, Warm/Dry Lymphatic: No Adenopathy Results/Procedures Lab Laboratory Tests 10/14/21 05:45 Patient resulted labs reviewed. FIM Transfers Therapy Code Descriptions/Definitions Functional [place] Measure: 0=Not Assessed/NA 4=Minimal Assistance 1=Total Assistance 5=Supervision or Setup 2=Maximal Assistance 6=Modified [place] 3=Moderate Assistance 7=Complete IndependenceSCALE: Activities may be completed with or without assistive devices. 6-Hxzprnkdnd-sxlnkjd completes the activity by him/herself with no assistance from a helper. 5-Set-up or Clean-up Assistance-helper sets up or cleans up; patient completes activity. [place] assists only prior to or following the activity. 4-Supervision or Touching Assistance-helper provides verbal cues and/or touching/steadying and/or contact guard assistance as patient completes activity. Assistance may be provided throughout the activity or intermittently. 3-Partial/Moderate Assistance-helper does LESS THAN HALF the effort. [place] lifts, holds or supports trunk or limbs, but provides less than half the effort. 2-Substantial/Maximal Assistance-helper does MORE THAN HALF the effort. [place] lifts or holds trunk or limbs and provides more than half the effort. 2-Oldrdctwp-iclgdk does ALL the effort. Patient does none of the effort to complete the activity. Or, the assistance of 2 or more helpers is required for the patient to complete the activity. If activity was not attempted, code reason: 7-Patient Refused. 9-Not Applicable-not attempted and the patient did not perform the activity before the current illness, exacerbation or injury. 10-Not Attempted due to Environmental Limitations-(lack of equipment, weather restraints, etc.). 88-Not Attempted due to Medical Conditions or Safety Concerns. Roll Left to Right (QC): 5 Sit to Lying (QC): 5 Sit to Stand (QC): 4 Chair/Gpn-nb-Bhhmo Xfer(QC): 4 Car Transfer (QC): 4 Gait Training Does the Patient Walk?: Yes Walk 10 feet (QC): 4 Walk 50 ft with 2 Turns(QC): 4 Walk 150 ft (QC): 4 Walking 10ft/uneven surface-QC: 4 Gait Assistive Device: FWW Wheelchair Training Does the Pt Use a Wheelchair?: No Wheel 50 ft with 2 turns (QC): 9 Wheel 150 ft (QC): 9 Stair Training 1 Step (curb) (QC): 4 4 Steps (QC): 88 12 Steps (QC): 88 Balance Picking up an Object (QC): 4 Assessment/Plan Assessment and Plan Assess & Plan/Chief Complaint Assessment: Debility Fever of unknown origin presumed meningitis placed on vancomycin, Rocephin, doxycycline, acyclovir, Diflucan by PCP CAD Hypertension Hyperlipidemia BPH Urinary retention Fall risk Obstructive sleep apnea Plan: Supportive care Antibiotics Monitor closely PT OT 10/14/2021: Monitor for hallucinations Complete antibiotics (1) Debility (2) Altered mental status Status: Acute (3) Maxillary sinusitis Status: Acute (4) Fever of unknown origin Status: Acute (5) Urinary retention Status: Acute (6) Febrile illness Status: Acute (7) Myopathy (8) CAD (coronary artery disease) (9) Sleep apnea in adult ABIEL SAUNDERS DO Oct 14, 2021 05:54
[2021-10-14 05:55] LABS: BASOPHILS % (AUTO) 0 % (0-10); EOSINOPHILS # (AUTO) 0.2 10^3/uL (0.0-0.3); EOSINOPHILS % (AUTO) 3 % (0-10); HEMATOCRIT 32 % (40-54); HEMOGLOBIN 10.8 g/dL (13.3-17.7); LYMPHOCYTES # (AUTO) 1.8 10^3/uL (1.0-4.0); LYMPHOCYTES % (AUTO) 25 % (12-44); MEAN CORPUSCULAR HEMOGLOBIN 33 pg (25-34); MEAN CORPUSCULAR HGB CONC 33 g/dL (32-36); MEAN CORPUSCULAR VOLUME 98 fL (80-99); MEAN PLATELET VOLUME 8.6 fL (9.0-12.2); MONOCYTES # (AUTO) 0.5 10^3/uL (0.0-1.0); MONOCYTES % (AUTO) 7 % (0-12); NEUTROPHILS # (AUTO) 4.6 10^3/uL (1.8-7.8); NEUTROPHILS % (AUTO) 64 % (42-75); PLATELET COUNT 237 10^3/uL (130-400); WHITE BLOOD COUNT 7.2 10^3/uL (4.3-11.0)
[2021-10-14 06:12] LABS: ALBUMIN 3.1 GM/DL (3.2-4.5); POTASSIUM 3.5 MMOL/L (3.6-5.0)
[2021-10-14 06:13] LABS: CALCIUM 8.7 MG/DL (8.5-10.1)
[2021-10-14 06:14] LABS: TOTAL PROTEIN 5.4 GM/DL (6.4-8.2)
[2021-10-14 06:16] LABS: BILIRUBIN,TOTAL 0.4 MG/DL (0.1-1.0)
[2021-10-14 06:18] LABS: CREATININE SERUM 0.81 MG/DL (0.60-1.30)
[2021-10-14] MEDS: VITAMIN D3 10 MCG (400 UNITS) TABLET PO SCH (06:38)
[2021-10-14] MEDS: CYANOCOBALAMIN 1,000 MCG (VITAMIN B-12) TABLET PO SCH (06:38)
[2021-10-14] MEDS: cefTRIAXone 2,000 MG in NS (IVPB) 50 ML IV SCH ×2 (06:56→20:15)
[2021-10-14 07:30] VITALS: BP 162/90
[2021-10-14] MEDS: LEVOTHYROXINE 50 MCG (LEVOTHROID) TAB PO SCH (08:32)
[2021-10-14] MEDS: polyethylene glycoL POWDER 17 GM (MIRALAX) PACK PO SCH ×2 (08:32→20:14)
[2021-10-14] MEDS: APIXABAN 5 MG (ELIQUIS) TABLET PO SCH ×2 (08:32→20:13)
[2021-10-14] MEDS: fluCOnazole (DIFLUCAN) 10MG/ML 35ML BTL PO SCH (08:32)
[2021-10-14] MEDS: RANOLAZINE ER 500 MG TAB (RANEXA) PO SCH ×2 (08:32→20:13)
[2021-10-14] MEDS: FOLIC ACID 1 MG TAB PO SCH (08:32)
[2021-10-14] MEDS: PANTOPRAZOLE 40 MG (PROTONIX) TAB PO SCH (08:32)
[2021-10-14] MEDS: DRONEDARONE 400 MG TABLET PO SCH ×2 (08:32→20:13)
[2021-10-14] MEDS: DOCUSATE SODIUM 100 MG (COLACE) CAP PO SCH ×2 (08:32→20:14)
[2021-10-14] MEDS: SENNA W/DOCUSATE (SENOKOT S) TABLET PO SCH ×2 (08:33→20:13)
[2021-10-14] MEDS: DOXYCYCLINE INJECTION 100 MG in NS (IVPB) 100 ML IV SCH ×2 (09:34→20:47)
[2021-10-14] MEDS: VANCOMYCIN INJECTION 1,500 MG in NS IV 500 ML 500 ML IV SCH (16:36)
[2021-10-14 19:43] VITALS: BP 100/69
[2021-10-14] MEDS: MIRTAZAPINE 15 MG (REMERON) TAB PO SCH (20:13)
[2021-10-14] MEDS: MAGNESIUM OXIDE (MAG-OX)400 MG TAB PO SCH (20:13)
[2021-10-14] MEDS: ASPIRIN E.C. 81 MG (ECOTRIN) TAB PO SCH (20:13)
[2021-10-15] MEDS: ACYCLOVIR INJECTION 800 MG in NS (IVPB) 250 ML IV SCH ×3 (02:29→17:30)
--- NOTE | 2021-10-15 06:01 | PM&R Progress Note ---
Subjective HPI/CC On Admission Date Seen by Provider: Oct 15, 2021 Time Seen by Provider: 06:00 Subjective/Events-last exam 10/15/2021: Patient having no new issues Reported hallucinations last night in bed nurses do not report any major issues IV antibiotics maintained 10/14/2021: Patient doing pretty well Slept soundly no pain is reported IV antibiotics maintained Some confusion Monitor closely Review of Systems General: Fatigue, Malaise Objective Exam Vital Signs Vital Signs Date Time Temp Pulse Resp B/P (MAP) Pulse Ox O2 Delivery O2 Flow Rate FiO2 10/15/21 09:36 Room Air 10/15/21 07:54 37.0 73 18 142/71 (94) 93 Capillary Refill : General Appearance: No Apparent Distress, WD/WN, Chronically ill HEENT: PERRL/EOMI, Normal ENT Inspection, Pharynx Normal Neck: Full Range of Motion, Normal Inspection, Non Tender, Supple, Carotid Bruit Respiratory: Chest Non Tender, Lungs Clear, No Accessory Muscle Use, No Respiratory Distress, Decreased Breath Sounds Cardiovascular: Regular Rate, Rhythm, No Edema, No Gallop, No JVD, No Murmur, Normal Peripheral Pulses Gastrointestinal: Normal Bowel Sounds, No Organomegaly, No Pulsatile Mass, Non Tender, Soft Back: Normal Inspection, No CVA Tenderness, No Vertebral Tenderness Extremity: Normal Capillary Refill, Normal Inspection, Normal Range of Motion, Non Tender, No Calf Tenderness, No Pedal Edema Neurologic/Psychiatric: Alert, Oriented x3, No Motor/Sensory Deficits, Normal Mood/Affect, neon installer II-XII Norm as Tested, Abnormal Gait, Depressed Affect, Motor Weakness (Generalized 3/5 all extremities) Skin: Normal Color, Warm/Dry Lymphatic: No Adenopathy Results/Procedures Lab Patient resulted labs reviewed. FIM Transfers Therapy Code Descriptions/Definitions Functional [place] Measure: 0=Not Assessed/NA 4=Minimal Assistance 1=Total Assistance 5=Supervision or Setup 2=Maximal Assistance 6=Modified [place] 3=Moderate Assistance 7=Complete IndependenceSCALE: Activities may be completed with or without assistive devices. 0-Vhlldhukyj-ykofuqj completes the activity by him/herself with no assistance from a helper. 5-Set-up or Clean-up Assistance-helper sets up or cleans up; patient completes activity. [place] assists only prior to or following the activity. 4-Supervision or Touching Assistance-helper provides verbal cues and/or touching/steadying and/or contact guard assistance as patient completes activity. Assistance may be provided throughout the activity or intermittently. 3-Partial/Moderate Assistance-helper does LESS THAN HALF the effort. [place] lifts, holds or supports trunk or limbs, but provides less than half the effort. 2-Substantial/Maximal Assistance-helper does MORE THAN HALF the effort. [place] lifts or holds trunk or limbs and provides more than half the effort. 2-Alwhprdya-jfoaey does ALL the effort. Patient does none of the effort to complete the activity. Or, the assistance of 2 or more helpers is required for the patient to complete the activity. If activity was not attempted, code reason: 7-Patient Refused. 9-Not Applicable-not attempted and the patient did not perform the activity before the current illness, exacerbation or injury. 10-Not Attempted due to Environmental Limitations-(lack of equipment, weather restraints, etc.). 88-Not Attempted due to Medical Conditions or Safety Concerns. Roll Left to Right (QC): 5 Sit to Lying (QC): 5 Sit to Stand (QC): 4 Chair/Czp-ai-Vpoyq Xfer(QC): 4 Car Transfer (QC): 4 Gait Training Does the Patient Walk?: Yes Walk 10 feet (QC): 4 Walk 50 ft with 2 Turns(QC): 4 Walk 150 ft (QC): 4 Walking 10ft/uneven surface-QC: 4 Gait Assistive Device: FWW Wheelchair Training Does the Pt Use a Wheelchair?: No Wheel 50 ft with 2 turns (QC): 9 Wheel 150 ft (QC): 9 Stair Training 1 Step (curb) (QC): 4 4 Steps (QC): 88 12 Steps (QC): 88 Balance Picking up an Object (QC): 4 Assessment/Plan Assessment and Plan Assess & Plan/Chief Complaint Assessment: Debility Fever of unknown origin presumed meningitis placed on vancomycin, Rocephin, doxycycline, acyclovir, Diflucan by PCP CAD Hypertension Hyperlipidemia BPH Urinary retention Fall risk Obstructive sleep apnea Plan: Supportive care Antibiotics Monitor closely PT OT 10/14/2021: Monitor for hallucinations Complete antibiotics 10/15/2021: Complete antibiotics (1) Debility (2) Altered mental status Status: Acute (3) Maxillary sinusitis Status: Acute (4) Fever of unknown origin Status: Acute (5) Urinary retention Status: Acute (6) Febrile illness Status: Acute (7) Myopathy (8) CAD (coronary artery disease) (9) Sleep apnea in adult ABIEL SAUNDERS DO Oct 15, 2021 06:01
[2021-10-15] MEDS: VITAMIN D3 10 MCG (400 UNITS) TABLET PO SCH (06:54)
[2021-10-15] MEDS: cefTRIAXone 2,000 MG in NS (IVPB) 50 ML IV SCH ×2 (06:54→18:36)
[2021-10-15] MEDS: CYANOCOBALAMIN 1,000 MCG (VITAMIN B-12) TABLET PO SCH (06:54)
[2021-10-15 07:54] VITALS: BP 142/71
[2021-10-15] MEDS: LEVOTHYROXINE 50 MCG (LEVOTHROID) TAB PO SCH (08:05)
[2021-10-15] MEDS: PANTOPRAZOLE 40 MG (PROTONIX) TAB PO SCH (08:05)
[2021-10-15] MEDS: ACETAMINOPHEN 325 MG TABLET PO PRN ×2 (08:05→20:15)
[2021-10-15] MEDS: FOLIC ACID 1 MG TAB PO SCH (08:05)
[2021-10-15] MEDS: DRONEDARONE 400 MG TABLET PO SCH ×2 (08:05→20:15)
[2021-10-15] MEDS: APIXABAN 5 MG (ELIQUIS) TABLET PO SCH ×2 (08:05→20:15)
[2021-10-15] MEDS: RANOLAZINE ER 500 MG TAB (RANEXA) PO SCH ×2 (08:06→20:14)
[2021-10-15] MEDS: fluCOnazole (DIFLUCAN) 10MG/ML 35ML BTL PO SCH (08:08)
[2021-10-15] MEDS: DOXYCYCLINE INJECTION 100 MG in NS (IVPB) 100 ML IV SCH ×2 (08:08→20:34)
[2021-10-15] MEDS: SENNA W/DOCUSATE (SENOKOT S) TABLET PO SCH ×2 (08:12→20:21)
[2021-10-15] MEDS: DOCUSATE SODIUM 100 MG (COLACE) CAP PO SCH ×2 (08:12→20:21)
[2021-10-15] MEDS: polyethylene glycoL POWDER 17 GM (MIRALAX) PACK PO SCH ×2 (08:12→20:21)
--- NOTE | 2021-10-15 09:30 | Occupational Therapy Eval ---
OT Evaluation-General/PLF Medical Diagnosis Admission Date Oct 13, 2021 at 11:31 Medical Diagnosis: Sepsis Onset Date: Oct 11, 2021 Therapy Diagnosis Therapy Diagnosis: reduced balance, adl status, weakness Height/Weight Height (Feet): 6 Height (Inches): 0.00 Weight (Pounds): 213 Weight (Ounces): 0.0 Precautions Precautions/Isolations: Fall Prevention, Standard Precautions Referral Physician: Cherie Referral Reason: Evaluation/Treatment Medical History Pertinent Medical History: Atrial Fib, CABG, CAD, HTN, MA Current History Presents to hospital with weakness, confusion, falls. Found to be septic with elevated temp. Per patient, he lives with his in a single story home. He was indep with adls and his completes all iadls. He uses a walker at baseline. Social History Home: Single Level Current Living Status: Spouse Entry Into Home: Stairs With Railing Steps Into Home: 4 Steps Inside Home: 0 ADL-Prior Level of Function SCALE: Activities may be completed with or without assistive devices. 0-Xsqddhjerm-mesbwrw completes the activity by him/herself with no assistance from a helper. 5-Set-up or Clean-up Assistance-helper sets up or cleans up; patient completes activity. [place] assists only prior to or following the activity. 4-Supervision or Touching Assistance-helper provides verbal cues and/or touching/steadying and/or contact guard assistance as patient completes activity. Assistance may be provided throughout the activity or intermittently. 3-Partial/Moderate Assistance-helper does LESS THAN HALF the effort. [place] lifts, holds or supports trunk or limbs, but provides less than half the effort. 2-Substantial/Maximal Assistance-helper does MORE THAN HALF the effort. [place] lifts or holds trunk or limbs and provides more than half the effort. 0-Ceaetskpv-fpdmyz does ALL the effort. Patient does none of the effort to complete the activity. Or, the assistance of 2 or more helpers is required for the patient to complete the activity. If activity was not attempted, code reason: 7-Patient Refused. 9-Not Applicable-not attempted and the patient did not perform the activity before the current illness, exacerbation or injury. 10-Not Attempted due to Environmental Limitations-(lack of equipment, weather restraints, etc.). 88-Not Attempted due to Medical Conditions or Safety Concerns. Self Care: Independent Functional Cognition: Needed Some Help DME/Equipment: Bath Bench (built in bench ), Grab Bars, Shower, Sock Aid OT Current Status Subjective Pt reports having a headache, pain meds given prior to OT arrival. Appearance Pt left sitting in recliner, all needs within reach at OT departure. Mental Status/Objective Patient Orientation: Person, Place Attachments: IV Current Glasses/Contacts: Yes Hearing Aids: Yes (bilateral ) Dentures/Partials: Yes (top and bottom ) Hand Dominance: Right Upper Extremity ROM WNL Upper Extremity Coordination impaired finger to nose and dysdiadochokinesia Upper Extremity Strength 4/5 grossly R maxillofacial pathology fair ADL-Treatment Eating (QC): 5 Oral Hygiene (QC): 5 Shower/Bathe Self (QC): 3 Upper Body Dressing (QC): 4 Lower Body Dressing (QC): 3 On/Off Footwear (QC): 4 Toileting Hygiene (QC): 3 Shower deferred secondary to IV infusing. Sponge bath performed seated at sink. Pt able to wash upper body without assist. Feet washed with use of cross over method, extra effort noted but no physical assistance required. Min-mod a needed for standing balance as pt removes Unilateral UE support in order to wash leeroy area/buttocks. R knee buckling x2 in standing. After standing for ~1 minutes, pt reports dizziness, min-mod a for lowering back to chair due to poor eccentric control. Clothing donned seated at EOB. Extra effort to thread RLE, but no physical assist needed. Cue to thread RLE first to ease task. Again, min-mod a needed for standing balance as he stood to pull clothing up to waist. Increased assist needed when removing BUE support. Cue given to keep one hand on walker and alternate. Socks donned with use of cross over method, extra effort/time needed secondary to tight fit and weakness. Pt is very [place] and requires repetition several times (hearing aids charging during evaluation). Education OT Patient Education: Correct positioning, Energy conservation, Modified ADL techniques, Purpose of tx/functional activities, Reviewed precautions, Rehab process, Safety issues, Transfer techniques Teaching Recipient: Patient Teaching Methods: Demonstration, Discussion Response to Teaching: Verbalize Understanding, Return Demonstration, Reinforcement Needed OT Short Term Goals Short Term Goals Time Frame: Oct 22, 2021 Eatin Oral hygiene: 6 Toileting hygiene: 4 Shower/bathe self: 4 Upper body dressin Lower body dressin Putting on/taking off footwear: 5 OT Chcf Goals Chcf Goals Time Frame: Nov 01, 2021 Eating (QC): 6 Oral Hygiene (QC): 6 Toileting Hygiene (QC): 6 Shower/Bathe Self (QC): 5 Upper Body Dressing (QC): 6 Lower Body Dressing (QC): 5 On/Off Footwear (QC): 6 1=Demonstrate adherence to instructed precautions during ADL tasks. 2=Patient will verbalize/demonstrate understanding of assistive devices/modifications for ADL. 3=Patient will improve strength/tolerance for activity to enable patient to perform ADL's. OT Education/Plan Problem List/Assessment Assessment: Decreased Activ Tolerance, Decreased Safety Aware, Impaired Cognition, Impaired Coordination, Impaired Funct Balance, Impaired Self-Care Skills Discharge Recommendations Plan/Recommendations: Continue POC Therapy Discharge Recommendati: Post Acute OT (Home health OT pending progress ) Treatment Plan/Plan of Care Treatment,Training & Education: Yes Patient would benefit from OT for education, treatment and training to promote independence in ADL's, mobility, safety and/or upper extremity function for ADL's. Plan of Care: ADL Retraining, Cognitive Retraining, Concurrent Therapy, Functional Mobility, Group Exercise/Act as Ind, UE Funct Exercise/Act, UE Neuromus Re-Ed/Coord Treatment Duration: Nov 01, 2021 Frequency: At least 5 of 7 days/Wk (IRF) Estimated Hrs Per Day: 1.5 hours per day (75-90 min/day ) Agreement: Yes Rehab Potential: Fair Time/GCodes Start Time: 08:30 Stop Time: 09:30 Total Time Billed (hr/min): 60 Billed Treatment Time 1 visit EVM (10 min) ADL x3 (50 min) Kristin Orellana OT Oct 15, 2021 09:29
--- NOTE | 2021-10-15 10:58 | Physical Therapy Daily Note ---
PT Daily Note-Current Subjective Patient in recliner pre tx, agrees to PT, has no complaints of pain. Appearance Patient in recliner post tx with nurse call, phone, tray, all needs met. Mental Status Patient Orientation: Person, Place, Situation Attachments: IV Transfers SCALE: Activities may be completed with or without assistive devices. 4-Shtnfdfldu-dqotfel completes the activity by him/herself with no assistance from a helper. 5-Set-up or Clean-up Assistance-helper sets up or cleans up; patient completes activity. [place] assists only prior to or following the activity. 4-Supervision or Touching Assistance-helper provides verbal cues and/or touching/steadying and/or contact guard assistance as patient completes activity. Assistance may be provided throughout the activity or intermittently. 3-Partial/Moderate Assistance-helper does LESS THAN HALF the effort. [place] lifts, holds or supports trunk or limbs, but provides less than half the effort. 2-Substantial/Maximal Assistance-helper does MORE THAN HALF the effort. [place] lifts or holds trunk or limbs and provides more than half the effort. 8-Mgrrgpfkb-zaovgh does ALL the effort. Patient does none of the effort to complete the activity. Or, the assistance of 2 or more helpers is required for the patient to complete the activity. If activity was not attempted, code reason: 7-Patient Refused. 9-Not Applicable-not attempted and the patient did not perform the activity before the current illness, exacerbation or injury. 10-Not Attempted due to Environmental Limitations-(lack of equipment, weather restraints, etc.). 88-Not Attempted due to Medical Conditions or Safety Concerns. Sit to Stand (QC): 3 Chair/Qcg-tx-Yxjqy Xfer(QC): 4 min assist for sit to stand from lower surfaces Gait Training Distance: 150'x2 Walk 10 feet (QC): 4 Walk 50 ft with 2 Turns(QC): 4 Walk 150 ft (QC): 4 Gait Persons Needed: 1 Gait Assistive Device: FWW Patient needs some steadying assist, has uncoordinated steps bilaterally but worse on the right side, has right knee buckling and hyperextension Exercises Standing: Sit to Stand (3 sets of 10) LAQ alternating for 5 min NuStep Minutes: 15 NuStep Workload: 5 Treatments transfers, ambulation, LE strengthening Assessment Current Status: Fair Progress Patient is pretty unsteady during ambulation but didn't have a aleida LOB. PT Halfway Goals Halfway Goals PT Hardboard Press Operator Goals Time Frame: Nov 03, 2021 Roll Left & Right (QC): 6 Sit to Lying (QC): 6 Lying-Sitting on Side/Bed(QC): 6 Sit to Stand (QC): 6 Chair/Yte-ld-Jgfzn Xfer(QC): 6 Toilet Transfer (QC): 6 Car Transfer (QC): 6 Does the Patient Walk: Yes Walk 10 feet (QC): 6 Walk 50ft with 2 Turns (QC): 6 Walk 150 ft (QC): 6 Walking 10ft on Uneven Surface: 6 1 Step (curb) (QC): 6 4 Steps (QC): 6 12 Steps (QC): 6 Picking up an Object (QC): 6 Does the Pt use WC or Scooter?: No Wheel 50 feet with 2 turns (QC: 9 Wheel 150 feet: 9 PT Plan Problem List Problem List: Activity Tolerance, Functional Strength, Safety, Balance, Gait, Transfer, Bed Mobility, ROM Treatment/Plan Treatment Plan: Continue Plan of Care Treatment Plan: Bed Mobility, Concurrent Therapy, Functional Activity Rachelle, Functional Strength, Group Therapy, Gait, Safety, Therapeutic Exercise, Transfers Treatment Duration: Nov 03, 2021 Frequency: At least 5 of 7 days/Wk (IRF) Estimated Hrs Per Day: 1.5 hours per day Patient and/or Family Agrees t: Yes Safety Risks/Education Patient Education: Gait Training, Transfer Techniques, Correct Positioning, Safety Issues Teaching Recipient: Patient Teaching Methods: Demonstration, Discussion Response to Teaching: Reinforcement Needed Time/GCodes Time In: 1000 Time Out: 1100 Total Billed Treatment Time: 60 Total Billed Treatment 1 visit EX 40' FA 20' REED ROMAN PT Oct 15, 2021 10:58
--- NOTE | 2021-10-15 13:16 | Therapy Group Daily Note ---
Therapy Daily Group Note Patient Education Topic Home Safety, Exercises, Other List Below (Nutrition/Health) Exercises LE Seated Exercise, UE Exercise Session Ratio (pt:therapist): 4:1 Goal of Session: Home Safety Strategies, UE/LE Strengthing, Other (list) (Nutrition/health) Goal Met for this Session: Yes Pt Benefit of Group: Contributions to Others, F/U Use of Strategies @Home, Increased Functional Safety, Increased Functional Strength, Improved Cognition, Recognition of Peers, Socialization Other/Notes Pt participated in Nutrition and health promotion [facility]. Pt participated in group session, first with introductions (Name, where pt is from, and favorite place to watch fireworks). This group treatment was better than individual to address socialization and recognition of peers. Pt met goals of group as demonstrated by answering questions related to overall health and nutrition, and participating in UE/LE seated exercises. Pt demonstrated the following abilities during group activity: good problem solving and safety skills, improved attention span and ability to participate in group without being distracted by the environment. Pt returned to his room using FWW, transferring to toilet. Post tx, pt on toilet, instructed to use call light when done, all needs met. Start Time: 12:00 Stop Time: 13:00 Total Billed Treatment Time: 60 Total Billed Treatment 1, GRP ARLENE JULIO OT Oct 15, 2021 13:16
[2021-10-15 19:55] VITALS: BP 147/72
[2021-10-15] MEDS: ASPIRIN E.C. 81 MG (ECOTRIN) TAB PO SCH (20:15)
[2021-10-15] MEDS: MIRTAZAPINE 15 MG (REMERON) TAB PO SCH (20:15)
[2021-10-15] MEDS: MAGNESIUM OXIDE (MAG-OX)400 MG TAB PO SCH (20:15)
[2021-10-16] MEDS: ACYCLOVIR INJECTION 800 MG in NS (IVPB) 250 ML IV SCH ×3 (01:56→17:41)
[2021-10-16 05:54] LABS: POTASSIUM 3.5 MMOL/L (3.6-5.0)
[2021-10-16 05:56] LABS: TOTAL PROTEIN 5.3 GM/DL (6.4-8.2)
[2021-10-16 05:58] LABS: BILIRUBIN,TOTAL 0.3 MG/DL (0.1-1.0)
[2021-10-16 06:00] LABS: CREATININE SERUM 0.84 MG/DL (0.60-1.30)
--- NOTE | 2021-10-16 06:15 | PM&R Progress Note ---
Subjective HPI/CC On Admission Date Seen by Provider: Oct 16, 2021 Time Seen by Provider: 12:30 Subjective/Events-last exam 10/16/2021: Pt and want him to discharge Will reach out to Dr. Baeza to see how long antibiotics need to be initiated, then we will discharge home Fever occurred at 101 and hallucinations said he can do that at home No other concerns 10/15/2021: Patient having no new issues Reported hallucinations last night in bed nurses do not report any major issues IV antibiotics maintained 10/14/2021: Patient doing pretty well Slept soundly no pain is reported IV antibiotics maintained Some confusion Monitor closely Review of Systems General: Fatigue, Malaise Objective Exam Vital Signs Vital Signs Date Time Temp Pulse Resp B/P (MAP) Pulse Ox O2 Delivery O2 Flow Rate FiO2 10/16/21 09:00 Room Air 10/16/21 07:18 36.6 66 16 157/85 (109) 97 Capillary Refill : General Appearance: No Apparent Distress, WD/WN, Chronically ill HEENT: PERRL/EOMI, Normal ENT Inspection, Pharynx Normal Neck: Full Range of Motion, Normal Inspection, Non Tender, Supple, Carotid Bruit Respiratory: Chest Non Tender, Lungs Clear, No Accessory Muscle Use, No Respiratory Distress, Decreased Breath Sounds Cardiovascular: Regular Rate, Rhythm, No Edema, No Gallop, No JVD, No Murmur, Normal Peripheral Pulses Gastrointestinal: Normal Bowel Sounds, No Organomegaly, No Pulsatile Mass, Non Tender, Soft Back: Normal Inspection, No CVA Tenderness, No Vertebral Tenderness Extremity: Normal Capillary Refill, Normal Inspection, Normal Range of Motion, Non Tender, No Calf Tenderness, No Pedal Edema Neurologic/Psychiatric: Alert, Oriented x3, No Motor/Sensory Deficits, Normal Mood/Affect, relief charge nurse II-XII Norm as Tested, Abnormal Gait, Depressed Affect, Motor Weakness (Generalized 3/5 all extremities) Skin: Normal Color, Warm/Dry Lymphatic: No Adenopathy Results/Procedures Lab Laboratory Tests 10/16/21 05:15 10/16/21 07:30 Patient resulted labs reviewed. FIM Transfers Therapy Code Descriptions/Definitions Functional [place] Measure: 0=Not Assessed/NA 4=Minimal Assistance 1=Total Assistance 5=Supervision or Setup 2=Maximal Assistance 6=Modified [place] 3=Moderate Assistance 7=Complete IndependenceSCALE: Activities may be completed with or without assistive devices. 9-Sioaevicym-mwzcksy completes the activity by him/herself with no assistance from a helper. 5-Set-up or Clean-up Assistance-helper sets up or cleans up; patient completes activity. [place] assists only prior to or following the activity. 4-Supervision or Touching Assistance-helper provides verbal cues and/or touching/steadying and/or contact guard assistance as patient completes activ ity. Assistance may be provided throughout the activity or intermittently. 3-Partial/Moderate Assistance-helper does LESS THAN HALF the effort. [place] lifts, holds or supports trunk or limbs, but provides less than half the effort. 2-Substantial/Maximal Assistance-helper does MORE THAN HALF the effort. [place] lifts or holds trunk or limbs and provides more than half the effort. 8-Ubjibctdm-sfxabr does ALL the effort. Patient does none of the effort to complete the activity. Or, the assistance of 2 or more helpers is required for the patient to complete the activity. If activity was not attempted, code reason: 7-Patient Refused. 9-Not Applicable-not attempted and the patient did not perform the activity before the current illness, exacerbation or injury. 10-Not Attempted due to Environmental Limitations-(lack of equipment, weather restraints, etc.). 88-Not Attempted due to Medical Conditions or Safety Concerns. Roll Left to Right (QC): 5 Sit to Lying (QC): 5 Sit to Stand (QC): 3 Chair/Stz-ia-Bgpko Xfer(QC): 4 Car Transfer (QC): 4 Gait Training Does the Patient Walk?: Yes Distance: 150'x2 Walk 10 feet (QC): 4 Walk 50 ft with 2 Turns(QC): 4 Walk 150 ft (QC): 4 Walking 10ft/uneven surface-QC: 4 Gait Persons Needed: 1 Gait Assistive Device: FWW Wheelchair Training Does the Pt Use a Wheelchair?: No Wheel 50 ft with 2 turns (QC): 9 Wheel 150 ft (QC): 9 Stair Training 1 Step (curb) (QC): 4 4 Steps (QC): 88 12 Steps (QC): 88 Balance Picking up an Object (QC): 4 ADL-Treatment Eating (QC): 5 Oral Hygiene (QC): 5 Shower/Bathe Self (QC): 3 Upper Body Dressing (QC): 4 Lower Body Dressing (QC): 3 On/Off Footwear (QC): 4 Toileting Hygiene (QC): 3 Assessment/Plan Assessment and Plan Assess & Plan/Chief Complaint Assessment: Debility Fever of unknown origin presumed meningitis placed on vancomycin, Rocephin, doxycycline, acyclovir, Diflucan by PCP CAD Hypertension Hyperlipidemia BPH Urinary retention Fall risk Obstructive sleep apnea Plan: Supportive care Antibiotics Monitor closely PT OT 10/14/2021: Monitor for hallucinations Complete antibiotics 10/15/2021: Complete antibiotics 10/16/2021: DC planning (1) Debility (2) Altered mental status Status: Acute (3) Maxillary sinusitis Status: Acute (4) Fever of unknown origin Status: Acute (5) Urinary retention Status: Acute (6) Febrile illness Status: Acute (7) Myopathy (8) CAD (coronary artery disease) (9) Sleep apnea in adult SAUNDERSANDRES SIMMONSNj HAMMOND Oct 16, 2021 06:15
--- NOTE | 2021-10-16 06:19 | Individualized Plan of Care ---
Individualized Plan of Care Rehab Nursing IPOC Order Admission Date Oct 13, 2021 at 11:31 Current Orders Orders Admission Order(Inpt,Obs,Sdc) (10/13/21 05:22) Vital Signs: Per Unit Policy ( 08,16,00 (10/13/21 05:22) Ortiz Almonte (10/13/21 05:22) Sequential Compression Device (10/13/21 05:22) Fiscal Accountant-Inpt Rehab Con (10/13/21 05:22) Rehab Nursing Orders-Ipoc (10/13/21 05:22) Physical Therapy Rehab Orders (10/13/21 05:22) Occupational Therapy Rehab Ord (10/13/21 05:22) Speech Therapy Rehab Orders (10/13/21 05:22) Cbc With Automated Diff (10/14/21 06:00) Comprehensive Metabolic Panel (10/14/21 06:00) Precautions (Aru) (10/13/21 05:22) Weekly Weight WEEK (10/13/21 05:22) Rehab-Intensity Of Therapy (10/13/21 05:22) Initiate Admission Nursing Pro .admission (10/13/21 05:22) Alprazolam Tablet (Xanax Tablet) (10/13/21 05:30) Calcium Carbonate Chew Tablet (Antacid C (10/13/21 05:30) Diphenhydramine Tablet (Benadryl Tablet) (10/13/21 05:30) Docusate Sodium Capsule (Colace Capsule) (10/13/21 09:00) Docusate Sodium Capsule (Colace Capsule) (10/13/21 05:30) Bisacodyl Suppository (Dulcolax Supposit (10/13/21 05:30) Lactulose Oral Solution (Enulose Oral So (10/13/21 05:30) Na Phos/Na Biphos Enema (Fleet Enema Stefan (10/13/21 05:30) Guaifenesin/Codeine Syrup (Robitussin Ac (10/13/21 05:30) Loperamide Tablet (Imodium Tablet) (10/13/21 05:30) Melatonin Tablet (Melatonin Tablet) (10/13/21 05:30) Polyethylene Glycol Powder Pkt (Miralax (10/13/21 09:00) Ondansetron Oral Dissolve Tab (Zofran (10/13/21 05:30) Senna S Tablet (Senokot S Tablet) (10/13/21 09:00) Acetaminophen Tablet/Caplet (Tylenol T (10/13/21 05:30) Code/Resuscitation (10/13/21 05:22) Initiate Admission Nursing Pro .admission (10/13/21 05:22) Admission Arrival Bed Request (10/13/21 11:31) Code/Resuscitation (10/13/21 11:59) Oxygen-Administer 07,19 (10/13/21 11:59) Acyclovir Injection (Zovirax Injection) (10/13/21 18:30) Apixaban Tablet (Eliquis Tablet) (10/13/21 21:00) Aspirin Enteric Coated Tablet (Ecotrin T (10/13/21 21:00) Atorvastatin Tablet (Lipitor Tablet) (10/13/21 21:00) Cholecalciferol Capsule/Tablet (Vitamin (10/14/21 07:00) Cyanocobalamin Tablet (Vitamin B-12 Tabl (10/14/21 07:00) Doxycycline Injection (Vibramycin Inject (10/13/21 21:00) Dronedarone Tablet (Multaq Tablet) (10/13/21 21:00) Ergocalciferol Capsule (Vitamin D2 Capsu (10/19/21 09:00) Fluconazole Oral Suspension (Diflucan Or (10/14/21 09:00) Folic Acid Tablet (Folic Acid Tablet) (10/14/21 09:00) Hydrocodone/Apap 10/325 Tablet (Lortab 1 (10/13/21 12:00) Levothyroxine Tablet (Synthroid Tablet) (10/14/21 09:00) Magnesium Oxide Tablet (Mag Ox Tablet) (10/13/21 21:00) Mirtazapine Tablet (Remeron Tablet) (10/13/21 21:00) Ondansetron Injection (Zofran Injectio (10/13/21 12:00) Pantoprazole Tablet (Protonix Tablet) (10/14/21 09:00) Ranolazine Er Tablet (Ranexa Er Tablet) (10/13/21 21:00) Vancomycin Injection (Vancomycin Injecti (10/13/21 23:00) Ceftriaxone (Rocephin) (10/13/21 19:30) Metoprolol Succinate (Xl) Tab (Toprol Xl (10/13/21 21:00) Patient Visit (10/13/21 ) Pt Eval Moderate Complexity (10/13/21 ) Catheter(Urinary) Discontinue (10/14/21 05:54) General/Regular (10/14/21 Lunch) Patient Visit (10/15/21 ) Exercise Therap, Ea 15 Min (10/15/21 ) Functional Activities, Ea 15 (10/15/21 ) Patient Visit (10/15/21 ) Cbc With Automated Diff (10/16/21 06:00) Comprehensive Metabolic Panel (10/16/21 06:00) Rehab Nursing Orders: Ongoing Assess. of Cognitive Status, Ongoing Assess. of Function Status, Bladder Management, Bladder Scan, Bladder Training, Bowel Management, Bowel Training, Disease Management & Educaiton, DVT Prophylaxis, Fluid/Electrolyte/Nutrition Mgmt, Infection Prevention, Medication Management & Education, Nutrition Management, Pain Management, Patient/Family Support Intensity of Therapy to be met Patient to be seen: Min.3h per day/5 of 7d PT IPOC Problem List: Activity Tolerance, Functional Strength, Safety, Balance, Gait, Transfer, Bed Mobility, ROM Treatment Plan: Continue Plan of Care Bed Mobility, Concurrent Therapy, Functional Activity Rachelle, Functional Strength, Group Therapy, Gait, Safety, Therapeutic Exercise, Transfers Treatment Duration: Nov 03, 2021 Frequency: At least 5 of 7 days/Wk (IRF) Estimated Hrs Per Day: 1.5 hours per day OT IPOC Problems: Decreased Activ Tolerance, Decreased Safety Aware, Impaired Cognition , Impaired Coordination, Impaired Funct Balance, Impaired Self-Care Skills OT Treatment, Training and Edu: Yes Plan of Care: ADL Retraining, Cognitive Retraining, Concurrent Therapy, Functional Mobility, Group Exercise/Act as Ind, UE Funct Exercise/Act, UE Neuromus Re-Ed/Coord Treatment Duration: Nov 01, 2021 Frequency: At least 5 of 7 days/Wk (IRF) Estimated Hrs Per Day: 1.5 hours per day (75-90 min/day ) ST IPOC Speech Therapy Treatment Plan: Continue Plan of Care Treatment Duration: Oct 16, 2021 Frequency: Modified Program (IRF) Estimated Hrs Per Day: Other Fiscal Accountant/Case Mgmt Fiscal Accountant/Case Managemen: Discharge Planning Dietitian/Piler Dietitian/Piler to monitor nutritional status and make changes and/or recommendations as needed and work with speech pathology on dietary upgrades as the occur. Physician IPOC Medical Issues being managed closely and that require the 24 hour availability of a physician: Recent FUO requiring extensive testing with cognitive deficit and debility will require close physician mngt. Medical Issues: Bowel/Bladder Function, DVT Prophylaxis, Falls Precautions, Fluid/Electrolyte/Nutrition Balance, Infection Protection, Pain Management Brief Synthesis of Preadmission Screen, Post-Admission Evaluation, and Therapy Evaluations: PT OT ST will work as team to increase stamina with AD in order to increase independence in order to return home Medical Prognosis: Good Anticipated Length of Stay: 7 days ABIEL SAUNDERS DO Oct 16, 2021 06:19
[2021-10-16] MEDS: VITAMIN D3 10 MCG (400 UNITS) TABLET PO SCH (06:27)
[2021-10-16] MEDS: cefTRIAXone 2,000 MG in NS (IVPB) 50 ML IV SCH ×2 (06:27→18:44)
[2021-10-16] MEDS: CYANOCOBALAMIN 1,000 MCG (VITAMIN B-12) TABLET PO SCH (06:27)
[2021-10-16 07:18] VITALS: BP 157/85
[2021-10-16 07:39] LABS: BASOPHILS % (AUTO) 1 % (0-10); EOSINOPHILS # (AUTO) 0.3 10^3/uL (0.0-0.3); EOSINOPHILS % (AUTO) 5 % (0-10); HEMATOCRIT 35 % (40-54); HEMOGLOBIN 11.7 g/dL (13.3-17.7); LYMPHOCYTES # (AUTO) 1.4 10^3/uL (1.0-4.0); LYMPHOCYTES % (AUTO) 19 % (12-44); MEAN CORPUSCULAR HEMOGLOBIN 33 pg (25-34); MEAN CORPUSCULAR HGB CONC 33 g/dL (32-36); MEAN CORPUSCULAR VOLUME 99 fL (80-99); MEAN PLATELET VOLUME 8.7 fL (9.0-12.2); MONOCYTES # (AUTO) 0.6 10^3/uL (0.0-1.0); MONOCYTES % (AUTO) 8 % (0-12); NEUTROPHILS # (AUTO) 4.9 10^3/uL (1.8-7.8); NEUTROPHILS % (AUTO) 68 % (42-75); PLATELET COUNT 235 10^3/uL (130-400); WHITE BLOOD COUNT 7.3 10^3/uL (4.3-11.0)
[2021-10-16] MEDS: DRONEDARONE 400 MG TABLET PO SCH ×2 (07:53→21:21)
[2021-10-16] MEDS: RANOLAZINE ER 500 MG TAB (RANEXA) PO SCH ×2 (07:53→21:21)
[2021-10-16] MEDS: APIXABAN 5 MG (ELIQUIS) TABLET PO SCH ×2 (07:53→21:21)
[2021-10-16] MEDS: SENNA W/DOCUSATE (SENOKOT S) TABLET PO SCH ×2 (07:53→21:21)
[2021-10-16] MEDS: FOLIC ACID 1 MG TAB PO SCH (07:53)
[2021-10-16] MEDS: PANTOPRAZOLE 40 MG (PROTONIX) TAB PO SCH (07:53)
[2021-10-16] MEDS: LEVOTHYROXINE 50 MCG (LEVOTHROID) TAB PO SCH (07:53)
[2021-10-16] MEDS: DOXYCYCLINE INJECTION 100 MG in NS (IVPB) 100 ML IV SCH (08:01)
[2021-10-16] MEDS: DOCUSATE SODIUM 100 MG (COLACE) CAP PO SCH ×2 (08:28→21:21)
[2021-10-16] MEDS: polyethylene glycoL POWDER 17 GM (MIRALAX) PACK PO SCH ×2 (08:28→21:25)
--- NOTE | 2021-10-16 10:27 | Occupational Ther Daily Note ---
OT Current Status-Daily Note Subjective Pt alert, lying in bed. Pt agrees to therapy. No c/o pain. C/o numbness in hands. Mental Status/Objective Patient Orientation: Person, Place, Time, Situation Attachments: IV ADL-Treatment Pt agrees to shower. Independent with eating. Supine to EOB independent using bed rails. Ambulated using FWW with CGA for safety. SBA for toilet transfer and toileting. Sitting on shower bench 100% of the time, pt completed shower with assist for feet. Pt had difficulty with sitting up right and had to continually readjust to maintain upright sitting while using hand held shower and grabbars. Pt sat at sink to complete all grooming with increased time. Place built up handle on razor to assist with weather teacher. Pt able to thread feet through pants/underwear by self then stood with CGA for safety while hiking over hips. Due to time constraints, assist given for footwear and upper body clothing. Pt left in care of PT after OT session. All needs met. Therapy Code Descriptions/Definitions Functional [place] Measure: 0=Not Assessed/NA 4=Minimal Assistance 1=Total Assistance 5=Supervision or Setup 2=Maximal Assistance 6=Modified [place] 3=Moderate Assistance 7=Complete IndependenceSCALE: Activities may be completed with or without assistive devices. 7-Vvcdgcdlji-sglmmox completes the activity by him/herself with no assistance from a helper. 5-Set-up or Clean-up Assistance-helper sets up or cleans up; patient completes activity. [place] assists only prior to or following the activity. 4-Supervision or Touching Assistance-helper provides verbal cues and/or touching/steadying and/or contact guard assistance as patient completes activity. Assistance may be provided throughout the activity or intermittently. 3-Partial/Moderate Assistance-helper does LESS THAN HALF the effort. [place] lifts, holds or supports trunk or limbs, but provides less than half the effort. 2-Substantial/Maximal Assistance-helper does MORE THAN HALF the effort. [place] lifts or holds trunk or limbs and provides more than half the effort. 2-Japyyrrjr-rbrxjc does ALL the effort. Patient does none of the effort to complete the activity. Or, the assistance of 2 or more helpers is required for the patient to complete the activity. If activity was not attempted, code reason: 7-Patient Refused. 9-Not Applicable-not attempted and the patient did not perform the activity before the current illness, exacerbation or injury. 10-Not Attempted due to Environmental Limitations-(lack of equipment, weather restraints, etc.). 88-Not Attempted due to Medical Conditions or Safety Concerns. Eating (QC): 6 Oral Hygiene (QC): 6 Shower/Bathe Self (QC): 3 Lower Body Dressing (QC): 4 Toileting Hygiene (QC): 4 Toilet Transfer (QC): 4 OT Short Term Goals Short Term Goals Time Frame: Oct 22, 2021 Eatin Oral hygiene: 6 Toileting hygiene: 4 Shower/bathe self: 4 Upper body dressin Lower body dressin Putting on/taking off footwear: 5 OT Guest Room Attendant Goals Guest Room Attendant Goals Time Frame: Nov 01, 2021 Eating (QC): 6 Oral Hygiene (QC): 6 Toileting Hygiene (QC): 6 Shower/Bathe Self (QC): 5 Upper Body Dressing (QC): 6 Lower Body Dressing (QC): 5 On/Off Footwear (QC): 6 1=Demonstrate adherence to instructed precautions during ADL tasks. 2=Patient will verbalize/demonstrate understanding of assistive devices/ modifications for ADL. 3=Patient will improve strength/tolerance for activity to enable patient to perform ADL's. OT Education/Plan Problem List/Assessment Assessment: Decreased Activ Tolerance, Decreased UE Strength, Impaired Coordination, Impaired Funct Balance, Impaired Self-Care Skills, Restricted Funct UE ROM Discharge Recommendations Plan/Recommendations: Continue POC Treatment Plan/Plan of Care Patient would benefit from OT for education, treatment and training to promote independence in ADL's, mobility, safety and/or upper extremity function for ADL's. Plan of Care: ADL Retraining, Cognitive Retraining, Concurrent Therapy, Funct ional Mobility, Group Exercise/Act as Ind, UE Funct Exercise/Act, UE Neuromus Re-Ed/Coord Treatment Duration: Nov 01, 2021 Frequency: At least 5 of 7 days/Wk (IRF) Estimated Hrs Per Day: 1.5 hours per day (75-90 min/day ) Agreement: Yes Rehab Potential: Fair Time/GCodes Start Time: 08:30 Stop Time: 10:00 Total Time Billed (hr/min): 90 Billed Treatment Time 1 visit-ADL 6 (90 min) MARISEL MCQUEEN Oct 16, 2021 10:27
--- NOTE | 2021-10-16 10:57 | Physical Therapy Daily Note ---
PT Daily Note-Current Subjective Patient in restroom pre tx, finishing up with OT, has no complaints of pain. Appearance Patient in bed post tx with nurse call, phone, tray, bed alarm on. Mental Status Patient Orientation: Person, Place, Situation, [place] Attachments: IV Transfers SCALE: Activities may be completed with or without assistive devices. 9-Qwjcpkjqxd-tgspsyk completes the activity by him/herself with no assistance from a helper. 5-Set-up or Clean-up Assistance-helper sets up or cleans up; patient completes activity. [place] assists only prior to or following the activity. 4-Supervision or Touching Assistance-helper provides verbal cues and/or touching/steadying and/or contact guard assistance as patient completes activity. Assistance may be provided throughout the activity or intermittently. 3-Partial/Moderate Assistance-helper does LESS THAN HALF the effort. [place] lifts, holds or supports trunk or limbs, but provides less than half the effort. 2-Substantial/Maximal Assistance-helper does MORE THAN HALF the effort. [place] lifts or holds trunk or limbs and provides more than half the effort. 5-Ysgrsjqta-ddtmab does ALL the effort. Patient does none of the effort to complete the activity. Or, the assistance of 2 or more helpers is required for the patient to complete the activity. If activity was not attempted, code reason: 7-Patient Refused. 9-Not Applicable-not attempted and the patient did not perform the activity before the current illness, exacerbation or injury. 10-Not Attempted due to Environmental Limitations-(lack of equipment, weather restraints, etc.). 88-Not Attempted due to Medical Conditions or Safety Concerns. Roll Left & Right (QC): 6 Sit to Lying (QC): 4 Lying to Sitting/Side of Bed(Q: 4 Sit to Stand (QC): 4 Chair/Aoj-gx-Ydqho Xfer(QC): 4 CGA for transfers, needs steadying assist and cues for positioning and safety, patient needs to finish dressing and does so with some assist, nurse has to disconnect his IV for a minute so he can don his shirt. Gait Training Does the Patient Walk?: Yes Distance: 150'x2 Walk 10 feet (QC): 4 Walk 50 ft with 2 Turns(QC): 4 Walk 150 ft (QC): 4 Gait Persons Needed: 1 Gait Assistive Device: FWW slow ambulation, unsteady, uncoordinated steps especially on the right side, has right knee hyperextension and buckling Exercises NuStep Minutes: 25 NuStep Workload: 6 (patient requested increased time on NuStep) Treatments dressing, ambulation and transfers, functional strengthening Assessment Current Status: Fair Progress improving endurance but still needs some assist with transfers and ambulation PT Intermediate Goals Chip Bin Conveyor Tender Goals PT Chip Bin Conveyor Tender Goals Time Frame: Nov 03, 2021 Roll Left & Right (QC): 6 Sit to Lying (QC): 6 Lying-Sitting on Side/Bed(QC): 6 Sit to Stand (QC): 6 Chair/Giz-eu-Iuklm Xfer(QC): 6 Toilet Transfer (QC): 6 Car Transfer (QC): 6 Does the Patient Walk: Yes Walk 10 feet (QC): 6 Walk 50ft with 2 Turns (QC): 6 Walk 150 ft (QC): 6 Walking 10ft on Uneven Surface: 6 1 Step (curb) (QC): 6 4 Steps (QC): 6 12 Steps (QC): 6 Picking up an Object (QC): 6 Does the Pt use WC or Scooter?: No Wheel 50 feet with 2 turns (QC: 9 Wheel 150 feet: 9 PT Plan Problem List Problem List: Activity Tolerance, Functional Strength, Safety, Balance, Gait, Transfer, Bed Mobility, ROM Treatment/Plan Treatment Plan: Continue Plan of Care Treatment Plan: Bed Mobility, Concurrent Therapy, Functional Activity Rachelle, Functional Strength, Group Therapy, Gait, Safety, Therapeutic Exercise, Transfe rs Treatment Duration: Nov 03, 2021 Frequency: At least 5 of 7 days/Wk (IRF) Estimated Hrs Per Day: 1.5 hours per day Patient and/or Family Agrees t: Yes Safety Risks/Education Patient Education: Gait Training, Transfer Techniques, Correct Positioning, Safety Issues Teaching Recipient: Patient Teaching Methods: Demonstration, Discussion Response to Teaching: Reinforcement Needed Time/GCodes Time In: 1000 Time Out: 1100 Total Billed Treatment Time: 60 Total Billed Treatment 1 visit EX 25' FA 35' REED ROMAN PT Oct 16, 2021 10:57
--- NOTE | 2021-10-16 13:37 | ST Cognitive Linguistic Eval ---
Speech Evaluation-General Medical Diagnosis Sepsis Onset Date: Oct 11, 2021 Therapy Diagnosis Therapy Diagnosis: Neurocognitive Impairment. Precautions Precautions: Fall Precautions/Isolations: Fall Prevention, Standard Precautions Referral Referring Physician: Dr. Crespo Reason for Referral: Evaluation/Treatment Medical History Pertinent Medical History: Atrial Fib, CABG, CAD, HTN, RI Current History The patient is an 81 year old male with a past medical history of CABG, sleep apnea, atrial fibrillation, CAD, high cholesterol, and HTN, who was admitted to the ICU then transferred to the floor due to fever of unknown origin and sign ificant change of status. Reviewed History: Yes Social History Current Living Status: Spouse Speech PLF-Current Status Prior Level of Function The patient's reports a decline in short term memory and receptive language ability since the time of his "back surgery." Subjective The patient was seated upright in his recliner, awake and alert upon entrance to his room by the clinician. The patient greeted the clinician appropriately and was agreeable to participation in the cognitive linguistic assessment. The patient's attempted to refuse the clinician stating the patient recently received his meal tray and "he was eating." The clinician explained her schedule and the window of flexibility she had to complete the assessment. The patient's attempted to stand between the patient and the clinician, again stating, "he's going to eat." The clinician explained she would allow breaks between questions so the patient may eat and she would not interrupt. To note, the time was 1300. On the rehabilitation floor, meals are most often present between noon and 1300, completing at 1300 so therapy can be re-initiated. Language Eval: Auditory Comprehends Simple Yes/No Ques: Functional Indent/Objects Multiple [place]: Functional Follows 1-Step Commands: Functional Follows General Conversations: Mild (Repetition is necessary, however, may be secondary to reduced hearing ability.) Language Eval: Verbal Language Completes Spontaneous Greeting: Functional Produces Auto, Serial Info: Functional Imitates Simple Words/Phrases: Functional Word Finding: Moderate Requests Basic Needs: Functional States Basic Personal Info: Functional Cognitive Patient Orientation The patient was oriented to self, location, month, day of the week and year. Objective Cognitive Domain Attention: Mild The clinician will continue the SLUMS to focus on cognitive ability during subsequent treatment sessions. Objective Formal/Standardized Tests [facility] Mental Status Exam (UMS) Results The patient was unable to complete the SLUMS, as the patient's required the patient to take specific breaks due to the presence of his meal tray. The SLUMS will be completed at a later date. Oral Motor/Speech Production The patient does not display dysarthria or apraxia of speech at this time. The patient remains 100% intelligible in known and unknown contexts. Impression At this time, the patient displays difficulty in the areas of cognition and receptive language. Skilled speech pathology is warranted to improve safety reasoning prior to discharge to the least restrictive environment. Speech Patient Assess Expression of Ideas/Wants: Exhibits (3) Understanding Verbal Content: Usually Understands (3) Brief Interview-Mental Status: Yes Repetition of Three Words: Three (3) Temporal Orientation: Year: Correct (3) Temporal Orientation: Month: Accurate within 5 days(2) Temporal Orientation: Day: Correct (1) Recall : Wear to say "Sock": Yes, no cue required (2) Recall : Color: Yes, no cue required (2) Recall : Bed: Yes,after cueing (1) Memory/Recall Ability: Current season, That he or she is in a hsp/hsp unit Speech Short Term Goals Short Term Goals Short Term Goals 1. The patient will display 75% accuracy with memory exercises with mild clinician verbal and visual cues. Time Frame-STG: One Week. Speech Clip And Hanger Attacher Goals Intermediate Goals 1. The patient will demonstrate improved cognitive linguistic skills for safe discharge to the least restrictive environment. Time Frame: Two Weeks. Speech-Plan Treatment Plan Speech Therapy Treatment Plan: Continue Plan of Care Treatment Duration: Oct 16, 2021 Frequency: 4 times per week (Four to five times per week.) Estimated Hrs Per Day: .5 hour per day Rehab Potential: Fair Safety Risks/Education Teaching Recipient: Patient, Significant Other Teaching Methods: Discussion Response to Teaching: Reinforcement Needed Education Topics Provided: Recommendations, Plan of Care Time Speech Therapy Time In: 13:00 Speech Therapy Time Out: 13:30 Total Billed Time: 30 Billed Treatment Time 1, RUMA AARON ELIZABETH ST Oct 16, 2021 13:37
--- NOTE | 2021-10-16 15:24 | Physical Therapy Daily Note ---
PT Daily Note-Current Subjective Patient lying supine in bed upon PT arrival, agreeable to treatment. Patient rates pain at 0/10 currently. Mental Status Patient Orientation: Person Transfers SCALE: Activities may be completed with or without assistive devices. 2-Eigxrhdpde-jjcibmp completes the activity by him/herself with no assistance from a helper. 5-Set-up or Clean-up Assistance-helper sets up or cleans up; patient completes activity. [place] assists only prior to or following the activity. 4-Supervision or Touching Assistance-helper provides verbal cues and/or touching/steadying and/or contact guard assistance as patient completes activity. Assistance may be provided throughout the activity or intermittently. 3-Partial/Moderate Assistance-helper does LESS THAN HALF the effort. [place] lifts, holds or supports trunk or limbs, but provides less than half the effort. 2-Substantial/Maximal Assistance-helper does MORE THAN HALF the effort. [place] lifts or holds trunk or limbs and provides more than half the effort. 9-Mcbkmhkok-wzzxcz does ALL the effort. Patient does none of the effort to complete the activity. Or, the assistance of 2 or more helpers is required for the patient to complete the activity. If activity was not attempted, code reason: 7-Patient Refused. 9-Not Applicable-not attempted and the patient did not perform the activity before the current illness, exacerbation or injury. 10-Not Attempted due to Environmental Limitations-(lack of equipment, weather restraints, etc.). 88-Not Attempted due to Medical Conditions or Safety Concerns. Roll Left & Right (QC): 6 Sit to Lying (QC): 6 Lying to Sitting/Side of Bed(Q: 4 Sit to Stand (QC): 4 Gait Training Does the Patient Walk?: Yes Distance: 350 feet Walk 10 feet (QC): 4 Walk 50 ft with 2 Turns(QC): 4 Walk 150 ft (QC): 4 Gait Persons Needed: 1 Gait Assistive Device: FWW Assessment Current Status: Fair Progress Patient performs all bed mobility with [place]. He ambulates 350 feet with FWW, with CGA and verbal cues for posture, safety, progression, conservation of energy. Tends to let the FWW get away from him and demonstrates poor posture throughout the gait training. Patient in bed post treatment with all needs met, nursing notified, call light in hand. PT Logistics Service Representative Goals Logistics Service Representative Goals PT Logistics Service Representative Goals Time Frame: Nov 03, 2021 Roll Left & Right (QC): 6 Sit to Lying (QC): 6 Lying-Sitting on Side/Bed(QC): 6 Sit to Stand (QC): 6 Chair/Utt-jw-Edrwl Xfer(QC): 6 Toilet Transfer (QC): 6 Car Transfer (QC): 6 Does the Patient Walk: Yes Walk 10 feet (QC): 6 Walk 50ft with 2 Turns (QC): 6 Walk 150 ft (QC): 6 Walking 10ft on Uneven Surface: 6 1 Step (curb) (QC): 6 4 Steps (QC): 6 12 Steps (QC): 6 Picking up an Object (QC): 6 Does the Pt use WC or Scooter?: No Wheel 50 feet with 2 turns (QC: 9 Wheel 150 feet: 9 PT Plan Treatment/Plan Treatment Plan: Continue Plan of Care Treatment Plan: Bed Mobility, Concurrent Therapy, Functional Activity Rachelle, Functional Strength, Group Therapy, Gait, Safety, Therapeutic Exercise, Transfers Treatment Duration: Nov 03, 2021 Frequency: At least 5 of 7 days/Wk (IRF) Estimated Hrs Per Day: 1.5 hours per day Patient and/or Family Agrees t: Yes Safety Risks/Education Patient Education: Gait Training Teaching Recipient: Patient Teaching Methods: Demonstration, Discussion Response to Teaching: Reinforcement Needed Time/GCodes Time In: 1400 Time Out: 1415 Total Billed Treatment Time: 15 Total Billed Treatment Visit, TOÑA Alejandra PT Oct 16, 2021 15:24
[2021-10-16 20:47] VITALS: BP 125/58
[2021-10-16] MEDS: MIRTAZAPINE 15 MG (REMERON) TAB PO SCH (21:21)
[2021-10-16] MEDS: ASPIRIN E.C. 81 MG (ECOTRIN) TAB PO SCH (21:21)
[2021-10-16] MEDS: MAGNESIUM OXIDE (MAG-OX)400 MG TAB PO SCH (21:21)
[2021-10-17] MEDS: ACYCLOVIR INJECTION 800 MG in NS (IVPB) 250 ML IV SCH (02:29)
[2021-10-17] MEDS: CYANOCOBALAMIN 1,000 MCG (VITAMIN B-12) TABLET PO SCH (06:45)
[2021-10-17] MEDS: VITAMIN D3 10 MCG (400 UNITS) TABLET PO SCH (06:45)
[2021-10-17 08:00] VITALS: BP 131/70
[2021-10-17] MEDS: FOLIC ACID 1 MG TAB PO SCH (08:23)
[2021-10-17] MEDS: RANOLAZINE ER 500 MG TAB (RANEXA) PO SCH ×2 (08:23→20:56)
[2021-10-17] MEDS: DRONEDARONE 400 MG TABLET PO SCH ×2 (08:23→20:55)
[2021-10-17] MEDS: APIXABAN 5 MG (ELIQUIS) TABLET PO SCH ×2 (08:23→20:54)
[2021-10-17] MEDS: PANTOPRAZOLE 40 MG (PROTONIX) TAB PO SCH (08:24)
[2021-10-17] MEDS: LEVOTHYROXINE 50 MCG (LEVOTHROID) TAB PO SCH (08:24)
--- NOTE | 2021-10-17 08:59 | Speech Therapy Daily Note ---
Speech Daily Progress Note Subjective Date Seen by Provider: Oct 17, 2021 Time Seen by Provider: 08:30 The patient was seated upright in his recliner upon entrance to his room by the clinician. The patient greeted the clinician appropriately and was agreeable to participation in the cognitive linguistic treatment session. Objective The patient completed the SLUMS on this date with a score of +24/30 correlating to a mild neurocognitive impairment. The patient displayed the most difficulty in the area of memory, consistent with the 's report to the clinician the day prior. The patient is agreeable to continued skilled speech therapy to focus on functional memory strategies, however, continues to request discharge from the facility. Assessment Assessment Current Status: Fair Progress Treatment Plan Continue Plan of Care Speech Short Term Goals Short Term Goals Short Term Goals 1. The patient will display 75% accuracy with memory exercises with mild clinician verbal and visual cues. Time Frame-STG: One Week. Speech Mcfp Goals Mcfp Goals 1. The patient will demonstrate improved cognitive linguistic skills for safe discharge to the least restrictive environment. Time Frame: Two Weeks. Speech-Plan Treatment Plan Speech Therapy Treatment Plan: Continue Plan of Care Treatment Duration: Oct 16, 2021 Frequency: 4 times per week (Four to five times per week.) Estimated Hrs Per Day: .5 hour per day Rehab Potential: Fair Safety Risks/Education Teaching Recipient: Patient Teaching Methods: Discussion Response to Teaching: Reinforcement Needed Education Topics Provided: Results of SLCOLBY, POC Time Speech Therapy Time In: 08:30 Speech Therapy Time Out: 09:00 Total Billed Time: 30 Billed Treatment Time 1, RAFAELRONY FRANK TORRES Oct 17, 2021 08:59
--- NOTE | 2021-10-17 10:15 | D/C HH Face to Face Order ---
D/C Face to Face Orders Reconcile Patient Problems Problems Reviewed?: Yes Instructions for Patient Via [facility], Patient Instructions/FollowUp: PCP 1 week Physician to follow Patient: Felisha Discharge Diet for Home: No Restrictions Patient Problems: FUO Weakness Patient Data-Allergies,Ht & Wt Patient Allergies: Coded Allergies: No Known Drug Allergies (Verified , 02/23/08) Height (Feet): 6 Height (Inches): 0.00 Weight (Pounds): 213 Weight (Ounces): 0.0 Home Health Need/Face to Face Date of Face to Face: Oct 17, 2021 Clinical Findings: Generalized weakness and fatigue, Instability, Muscle weakness I have seen Pt [id number]: Yes Discharged To: Home Diagnosis/Conditions: Debility Patient is Homebound due to: CognItive deficits, Rocio fall risk due to instabilty, Muscle weakness Homebound Status Due to the above stated illness, injury or surgical procedure (medical condition or diagnosis) and associated clinical findings, the patient is homebound because of his/her inability to leave home except with aid of a suppor tive device and/or person AND leaving the home requires a considerable and taxing effort or is medically contraindicated. Pt req the following assistanc: Walker Home Health Nursing Orders Home Health Services Order: Nursing Services, Push Bench Operator Helper-Evaluate & Treat, Physical Therapy-Evaluate & Treat, Other Certify Stmt I certify that this patient is under my care and that I, a nurse practitioner or a physician; a nurses medical assistants phlebotomists working with me, had a face to face encounter that - meets the physician face to face encounter requirements with this patient as ABIEL Sanabria DO Oct 17, 2021 10:15
--- NOTE | 2021-10-17 10:16 | Discharge Summary ---
Diagnosis/Chief Complaint Date of Admission Oct 13, 2021 at 11:31 Date of Discharge Discharge Date: Oct 17, 2021 Discharge Summary Discharge Physical Examination Allergies: Coded Allergies: No Known Drug Allergies (Verified , 02/23/08) Vitals & I&Os Vital Signs Date Time Temp Pulse Resp B/P (MAP) Pulse Ox O2 Delivery O2 Flow Rate FiO2 10/17/21 08:00 37.0 70 18 131/70 (90) 95 Room Air Hospital Course Labs (last 24 hrs) Laboratory Tests 10/14/21 05:45: White Blood Count 7.2, Red Blood Count 3.30L, Hemoglobin 10.8L, Hematocrit 32L, Mean Corpuscular Volume 98, Mean Corpuscular Hemoglobin 33, Mean Corpuscular Hemoglobin Concent 33, Red Cell Distribution Width 15.5H, Platelet Count 237, Mean Platelet Volume 8.6L, Immature Granulocyte % (Auto) 1, Neutrophils (%) (Auto) 64, Lymphocytes (%) (Auto) 25, Monocytes (%) (Auto) 7, Eosinophils (%) (Auto) 3, Basophils (%) (Auto) 0, Neutrophils # (Auto) 4.6, Lymphocytes # (Auto) 1.8, Monocytes # (Auto) 0.5, Eosinophils # (Auto) 0.2, Basophils # (Auto) 0.0, Immature Granulocyte # (Auto) 0.0, Sodium Level 138, Potassium Level 3.5L, Chloride Level 107, Carbon Dioxide Level 20L, Anion Gap 11, Blood Urea Nitrogen 6L, Creatinine 0.81, Estimat Glomerular Filtration Rate 89, BUN/Creatinine Ratio 7, Glucose Level 93, Calcium Level 8.7, Corrected Calcium 9.4, Total Bilirubin 0.4, Aspartate Amino Transf (AST/SGOT) 19, Alanine Aminotransferase (ALT/SGPT) 13, Alkaline Phosphatase 54, Total Protein 5.4L, Albumin 3.1L 10/16/21 05:15: Sodium Level 140, Potassium Level 3.5L, Chloride Level 107, Carbon Dioxide Level 22, Anion Gap 11, Blood Urea Nitrogen 7, Creatinine 0.84, Estimat Glomerular Filtration Rate 88, BUN/Creatinine Ratio 8, Glucose Level 92, Calcium Level 9.0, Corrected Calcium 9.8, Total Bilirubin 0.3, Aspartate Amino Transf (AST/SGOT) 20, Alanine Aminotransferase (ALT/SGPT) 14, Alkaline Phosphatase 55, Total Pro tein 5.3L, Albumin 3.0L 10/16/21 07:30: White Blood Count 7.3, Red Blood Count 3.55L, Hemoglobin 11.7L, Hematocrit 35L, Mean Corpuscular Volume 99, Mean Corpuscular Hemoglobin 33, Mean Corpuscular Hemoglobin Concent 33, Red Cell Distribution Width 15.9H, Platelet Count 235, Mean Platelet Volume 8.7L, Immature Granulocyte % (Auto) 1, Neutrophils (%) (Auto) 68, Lymphocytes (%) (Auto) 19, Monocytes (%) (Auto) 8, Eosinophils (%) (Auto) 5, Basophils (%) (Auto) 1, Neutrophils # (Auto) 4.9, Lymphocytes # (Auto) 1.4, Monocytes # (Auto) 0.6, Eosinophils # (Auto) 0.3, Basophils # (Auto) 0.0, Immature Granulocyte # (Auto) 0.0 Pending Labs Laboratory Tests 10/14/21 05:45: White Blood Count 7.2, Red Blood Count 3.30, Hemoglobin 10.8, Hematocrit 32, Mean Corpuscular Volume 98, Mean Corpuscular Hemoglobin 33, Mean Corpuscular Hemoglobin Concent 33, Red Cell Distribution Width 15.5, Platelet Count 237, Mean Platelet Volume 8.6, Immature Granulocyte % (Auto) 1, Neutrophils (%) (Auto) 64, Lymphocytes (%) (Auto) 25, Monocytes (%) (Auto) 7, Eosinophils (%) (Auto) 3, Basophils (%) (Auto) 0, Neutrophils # (Auto) 4.6, Lymphocytes # (Auto) 1.8, Monocytes # (Auto) 0.5, Eosinophils # (Auto) 0.2, Basophils # (Auto) 0.0, Immature Granulocyte # (Auto) 0.0, Sodium Level 138, Potassium Level 3.5, Chloride Level 107, Carbon Dioxide Level 20, Anion Gap 11, Blood Urea Nitrogen 6, Creatinine 0.81, Estimat Glomerular Filtration Rate 89, BUN/Creatinine Ratio 7, Glucose Level 93, Calcium Level 8.7, Corrected Calcium 9.4, Total Bilirubin 0.4, Aspartate Amino Transf (AST/SGOT) 19, Alanine Aminotransferase (ALT/SGPT) 13, Alkaline Phosphatase 54, Total Protein 5.4, Albumin 3.1 10/16/21 05:15: Sodium Level 140, Potassium Level 3.5, Chloride Level 107, Carbon Dioxide Level 22, Anion Gap 11, Blood Urea Nitrogen 7, Creatinine 0.84, Estimat Glomerular Filtration Rate 88, BUN/Creatinine Ratio 8, Glucose Level 92, Calcium Level 9.0, Corrected Calcium 9.8, Total Bilirubin 0.3, Aspartate Amino Transf (AST/SGOT) 20, Alanine Aminotransferase (ALT/SGPT) 14, Alkaline Phosphatase 55, Total Protein 5.3, Albumin 3.0 10/16/21 07:30: White Blood Count 7.3, Red Blood Count 3.55, Hemoglobin 11.7, Hematocrit 35, Mean Corpuscular Volume 99, Mean Corpuscular Hemoglobin 33, Mean Corpuscular Hemoglobin Concent 33, Red Cell Distribution Width 15.9, Platelet Count 235, Mean Platelet Volume 8.7, Immature Granulocyte % (Auto) 1, Neutrophils (%) (Auto) 68, Lymphocytes (%) (Auto) 19, Monocytes (%) (Auto) 8, Eosinophils (%) (Auto) 5, Basophils (%) (Auto) 1, Neutrophils # (Auto) 4.9, Lymphocytes # (Auto) 1.4, Monocytes # (Auto) 0.6, Eosinophils # (Auto) 0.3, Basophils # (Auto) 0.0, Immature Granulocyte # (Auto) 0.0 Discharge Home Medications: Active Scripts Active Reported Vitamin D3 (Cholecalciferol (Vitamin D3)) 25 Mcg (1000 Unit) Tab.chew 25 Mcg PO DAILY Krill Oil 1,000 mg Softgel (Krill/Om3/Dha/Epa/Om6/Lip/Astx) 1,000-130MG Capsule 1 Each PO BID Zinc 50 Mg Tablet 50 Mg PO DAILY Furosemide 20 Mg Tablet 20 Mg PO DAILY PRN Metoprolol Succinate 25 Mg Tab.er.24h 25 Mg PO HS Mirtazapine 15 Mg Tablet 7.5 Mg PO HS TAKES OF A 15MG TAB Calcium Carbonate 500 Mg Calcium (1250 Mg) Tablet 500 Mg PO DAILY Lisinopril 5 Mg Tablet 2.5 Mg PO BID TAKES 1/2 OF (5MG) TAB Allopurinol 100 Mg Tablet 100 Mg PO HS Potassium Gluconate 595 Mg (99 Mg) Tablet.er 99 Mg PO DAILY Vitamin B Complex-Vitamin C (B-Complex with Vitamin C) 1 Each Tablet 1 Each PO DAILY Multaq (Dronedarone HCl) 400 Mg Tablet 400 Mg PO BID Hydrocodone-Acetamin 10-325 mg (Hydrocodone/Acetaminophen) 1 Each Tablet 1 Ea PO Q6H PRN Ranolazine ER (Ranolazine) 1,000 Mg Tab.er.12h 1,000 Mg PO BID Centrum Silver Ultra Men's Tab (Multivit-Min/FA/Lycopene/Lut) 1 Each Tablet 1 Each PO DAILY Atorvastatin Calcium 40 Mg Tablet 40 Mg PO HS Magnesium (Magnesium Oxide) 400 Mg Tablet 400 Mg PO HS Eliquis (Apixaban) 5 Mg Tablet 5 Mg PO BID Pantoprazole Sodium 40 Mg Tablet.dr 40 Mg PO DAILY Levothyroxine Sodium 50 Mcg Tablet 50 Mcg PO DAILY Aspirin EC (Aspirin) 81 Mg Tablet.dr 81 Mg PO HS Doxazosin Mesylate 4 Mg Tablet 4 Mg PO HS Allopurinol 100 Mg Tablet 200 Mg PO DAILY TAKES 2 (100MG) TABS Instructions to patient/family Please see electronic discharge instructions given to patient. Diagnosis/Problems Diagnosis/Problems (1) Debility (2) Altered mental status Status: Acute (3) Maxillary sinusitis Status: Acute (4) Fever of unknown origin Status: Acute (5) Urinary retention Status: Acute (6) Febrile illness Status: Acute (7) Myopathy (8) CAD (coronary artery disease) (9) Sleep apnea in adult ABIEL SAUNDERS DO Oct 17, 2021 10:16
--- NOTE | 2021-10-17 10:23 | Therapy Team Discharge Summary ---
Therapy Discharge Summary Discharge Recommendations Date of Discharge Physical Therapy Roll Left to Right (QC): 6 Sit to Lying (QC): 6 Lying to Sitting/Side of Bed(Q: 4 Sit to Stand (QC): 4 Chair/Pjv-fx-Svcwk Xfer(QC): 4 Toilet Transfer (QC): 4 Car Transfer (QC): 4 Does the Patient Walk: Yes Mode of Locomotion: Walk Anticipated Mode of Locomotion: Walk Walk 10 feet (QC): 4 Walk 50 ft with 2 Turns(QC): 4 Walk 150 ft (QC): 4 Walking 10ft on uneven surface: 4 Distance: 186ft Gait Assistive Device: FWW Does the Pt Use a Wheelchair: No Wheel 50 ft with 2 turns (QC): 9 Wheel 150 ft (QC): 9 1 Step (curb) (QC): 4 4 Steps (QC): 88 12 Steps (QC): 88 Walking Assistive Device: Walker Balance Sitting Static: Normal Balance Sitting Dynamic: Normal Balance-Standing Static: Normal Picking up an Object (QC): 4 Occupational Therapy Decreased Activ Tolerance, Decreased UE Strength, Impaired Cognition, Impaired Coordination, Impaired Funct Balance, Impaired Self-Care Skills, Restricted Funct UE ROM Eating (QC): 6 Oral Hygiene (QC): 6 Shower/Bathe Self (QC): 3 Upper Body Dressing (QC): 4 Lower Body Dressing (QC): 4 On/Off Footwear (QC): 4 Toileting Hygiene (QC): 4 Speech-Language Pathology Expression of Ideas/Wants: Exhibits (3) Understanding Verbal Content: Usually Understands (3) Brief Interview-Mental Status: Yes Repetition of Three Words: Three (3) Temporal Orientation: Year: Correct (3) Temporal Orientation: Month: Accurate within 5 days(2) Temporal Orientation: Day: Correct (1) Recall : Wear to say "Sock": Yes, no cue required (2) Recall : Color: Yes, no cue required (2) Recall : Bed: Yes,after cueing (1) Memory/Recall Ability: Current season, That he or she is in a hsp/hsp unit PT Correction Goals Railroad Dining Car Stewardess Goals PT Correction Goals Time Frame: Nov 03, 2021 Roll Left to Right (QC): 6 Sit to Lying (QC): 6 Lying-Sitting on Side/Bed(QC): 6 Sit to Stand (QC): 6 Chair/Rwe-au-Expzs Xfer(QC): 6 Car Transfer (QC): 6 Does the Patient Walk: Yes Walk 10 feet (QC): 6 Walk 10ft-Uneven Surface(QC): 6 Walk 50ft with 2 Turns (QC): 6 Walk 150 ft (QC): 6 Does the Pt use WC or Scooter?: No Wheel 50 feet with 2 turns (QC: 9 1 Step (curb) (QC): 6 4 Steps (QC): 6 12 Steps (QC): 6 Picking up an Object (QC): 6 OT Correction Goals Correction Goals Time Frame: Nov 01, 2021 Eating (FIM): 6 Eating (QC): 6 Oral Hygiene (QC): 6 Shower/Bathe Self (QC): 5 Upper Body Dressing (QC): 6 Lower Body Dressing (QC): 5 On/Off Footwear (QC): 6 Toileting Hygiene (QC): 6 Toilet/Commode Transfer (QC): 6 1=Demonstrate adherence to instructed precautions during ADL tasks. 2=Patient will verbalize/demonstrate understanding of assistive devices/modifications for ADL. 3=Patient will improve strength/tolerance for activity to enable patient to perform ADL's. Speech Correction Goals Correction Goals 1. The patient will demonstrate improved cognitive linguistic skills for safe discharge to the least restrictive environment. Time Frame: Two Weeks. FRANK TORRES Oct 17, 2021 10:23
--- NOTE | 2021-10-17 10:29 | Occupational Ther Daily Note ---
OT Current Status-Daily Note Subjective Pt alert, sitting in recliner. Pt agrees to therapy. No c/o pain. Mental Status/Objective Patient Orientation: Person, Place, Time, Situation Attachments: IV ADL-Treatment Pt is SBA to CGA for standing tasks due to LOB. Using FWW, pt able to ambulate and transfer on/off toilet with SBA/CGA while using higher surface for toilet and grabbars. Using grabbars to stabilize self while manipulating clothing for toileting-SBA, pt sits on toilet to cleanse self. Sitting at sink, pt able to complete oral care independently. Independent with eating. Set up to don/doff socks. Per clinical judgment, set up for upper body dressing. SBA/CGA to complete lower body dressing. Therapy Code Descriptions/Definitions Functional [place] Measure: 0=Not Assessed/NA 4=Minimal Assistance 1=Total Assistance 5=Supervision or Setup 2=Maximal Assistance 6=Modified [place] 3=Moderate Assistance 7=Complete IndependenceSCALE: Activities may be completed with or without assistive devices. 9-Iarenetxot-stpftdm completes the activity by him/herself with no assistance from a helper. 5-Set-up or Clean-up Assistance-helper sets up or cleans up; patient completes activity. Stanley assists only prior to or following the activity. 4-Supervision or Touching Assistance-helper provides verbal cues and/or touching/steadying and/or contact guard assistance as patient completes activity. Assistance may be provided throughout the activity or intermittently. 3-Partial/Moderate Assistance-helper does LESS THAN HALF the effort. Stanley li fts, holds or supports trunk or limbs, but provides less than half the effort. 2-Substantial/Maximal Assistance-helper does MORE THAN HALF the effort. Stanley lifts or holds trunk or limbs and provides more than half the effort. 7-Gxsiwyreo-bciecj does ALL the effort. Patient does none of the effort to complete the activity. Or, the assistance of 2 or more helpers is required for the patient to complete the activity. If activity was not attempted, code reason: 7-Patient Refused. 9-Not Applicable-not attempted and the patient did not perform the activity before the current illness, exacerbation or injury. 10-Not Attempted due to Environmental Limitations-(lack of equipment, weather restraints, etc.). 88-Not Attempted due to Medical Conditions or Safety Concerns. Eating (QC): 6 Oral Hygiene (QC): 6 Upper Body Dressing (QC): 5 Lower Body Dressing (QC): 4 On/Off Footwear: 5 Toileting Hygiene (QC): 4 Toilet Transfer (QC): 4 Other Treatment Pt ambulated to therapy gym using FWW. Educated pt on using wide JOHN during ambulation, turning and standing to increase balance. B UE exercises completed to increase strength and coordination for daily functional tasks. Pt completed resistive clothes pins 2x with each hand, 1# wt on each wrist. Using 3# wts, pt completed bicep curls, front punch and shldr presses alternating UE's 2 sets 10 reps. Pt stood at high surface to complete pipe tree for fine motor strength, dexterity and dynamic balance with 1# wt on each wrist. After session, pt sitting in recliner with call light/phone in reach. All needs met. OT Short Term Goals Short Term Goals Time Frame: Oct 22, 2021 Eatin Oral hygiene: 6 Toileting hygiene: 4 Shower/bathe self: 4 Upper body dressin Lower body dressin Putting on/taking off footwear: 5 OT Detention Goals Detention Goals Time Frame: Nov 01, 2021 Eating (QC): 6 (met) Oral Hygiene (QC): 6 (met) Toileting Hygiene (QC): 6 (not met) Shower/Bathe Self (QC): 5 (not met) Upper Body Dressing (QC): 6 (not met) Lower Body Dressing (QC): 5 (not met) On/Off Footwear (QC): 6 (not met) 1=Demonstrate adherence to instructed precautions during ADL tasks. 2=Patient will verbalize/demonstrate understanding of assistive devices/modifications for ADL. 3=Patient will improve strength/tolerance for activity to enable patient to perform ADL's. OT Education/Plan Problem List/Assessment Assessment: Decreased Activ Tolerance, Decreased Safety Aware, Decreased UE Strength, Impaired Coordination, Impaired Funct Balance, Impaired Self-Care Skills Discharge Recommendations Plan/Recommendations: Continue POC Treatment Plan/Plan of Care Patient would benefit from OT for education, treatment and training to promote independence in ADL's, mobility, safety and/or upper extremity function for ADL's. Plan of Care: ADL Retraining, Cognitive Retraining, Concurrent Therapy, Functional Mobility, Group Exercise/Act as Ind, UE Funct Exercise/Act, UE Neuromus Re-Ed/Coord Treatment Duration: Nov 01, 2021 Frequency: At least 5 of 7 days/Wk (IRF) Estimated Hrs Per Day: 1.5 hours per day (75-90 min/day ) Agreement: Yes Rehab Potential: Fair Time/GCodes Start Time: 09:00 Stop Time: 10:15 Total Time Billed (hr/min): 75 Billed Treatment Time 1 visit-ADL 3 (45 min) EX 2 (30 min) MARISEL MCQUEEN Oct 17, 2021 10:29
--- NOTE | 2021-10-17 10:35 | PM&R Progress Note ---
Subjective HPI/CC On Admission Date Seen by Provider: Oct 17, 2021 Time Seen by Provider: 10:30 Subjective/Events-last exam 10/17/2021: Pt is doing pretty well Pt was delayed in discharge because he almost fell at the sink in the bathroom Confusion is subtle Finished with antibiotics Overall doing very well Discharge planned for Friday10/16/2021: Pt and want him to discharge Will reach out to Dr. Baeza to see how long antibiotics need to be initiated, then we will discharge home Fever occurred at 101 and hallucinations said he can do that at home No other concerns 10/15/2021: Patient having no new issues Reported hallucinations last night in bed nurses do not report any major issues IV antibiotics maintained 10/14/2021: Patient doing pretty well Slept soundly no pain is reported IV antibiotics maintained Some confusion Monitor closely Review of Systems General: Fatigue, Malaise Objective Exam Vital Signs Vital Signs Date Time Temp Pulse Resp B/P (MAP) Pulse Ox O2 Delivery O2 Flow Rate FiO2 10/17/21 19:46 37.7 78 20 150/81 (104) 98 Room Air Capillary Refill : General Appearance: No Apparent Distress, WD/WN, Chronically ill HEENT: PERRL/EOMI, Normal ENT Inspection, Pharynx Normal Neck: Full Range of Motion, Normal Inspection, Non Tender, Supple, Carotid Bruit Respiratory: Chest Non Tender, Lungs Clear, No Accessory Muscle Use, No Respiratory Distress, Decreased Breath Sounds Cardiovascular: Regular Rate, Rhythm, No Edema, No Gallop, No JVD, No Murmur, Normal Peripheral Pulses Gastrointestinal: Normal Bowel Sounds, No Organomegaly, No Pulsatile Mass, Non Tender, Soft Back: Normal Inspection, No CVA Tenderness, No Vertebral Tenderness Extremity: Normal Capillary Refill, Normal Inspection, Normal Range of Motion, Non Tender, No Calf Tenderness, No Pedal Edema Neurologic/Psychiatric: Alert, Oriented x3, No Motor/Sensory Deficits, Normal Mood/Affect, buzzsaw operator II-XII Norm as Tested, Abnormal Gait, Depressed Affect, Motor Weakness (Generalized 3/5 all extremities) Skin: Normal Color, Warm/Dry Lymphatic: No Adenopathy Results/Procedures Lab Patient resulted labs reviewed. FIM Transfers Therapy Code Descriptions/Definitions Functional [place] Measure: 0=Not Assessed/NA 4=Minimal Assistance 1=Total Assistance 5=Supervision or Setup 2=Maximal Assistance 6=Modified Bond 3=Moderate Assistance 7=Complete IndependenceSCALE: Activities may be completed with or without assistive devices. 6-Ktbcclwfyv-xylqlry completes the activity by him/herself with no assistance from a helper. 5-Set-up or Clean-up Assistance-helper sets up or cleans up; patient completes activity. [place] assists only prior to or following the activity. 4-Supervision or Touching Assistance-helper provides verbal cues and/or touching/steadying and/or contact guard assistance as patient completes activity. Assistance may be provided throughout the activity or intermittently. 3-Partial/Moderate Assistance-helper does LESS THAN HALF the effort. [place] lifts, holds or supports trunk or limbs, but provides less than half the effort. 2-Substantial/Maximal Assistance-helper does MORE THAN HALF the effort. [place] lifts or holds trunk or limbs and provides more than half the effort. 6-Zbmswvnow-erbhfb does ALL the effort. Patient does none of the effort to complete the activity. Or, the assistance of 2 or more helpers is required for the patient to complete the activity. If activity was not attempted, code reason: 7-Patient Refused. 9-Not Applicable-not attempted and the patient did not perform the activity before the current illness, exacerbation or injury. 10-Not Attempted due to Environmental Limitations-(lack of equipment, weather restraints, etc.). 88-Not Attempted due to Medical Conditions or Safety Concerns. Roll Left to Right (QC): 6 Sit to Lying (QC): 6 Sit to Stand (QC): 4 Chair/Vjd-qd-Xxlnl Xfer(QC): 4 Car Transfer (QC): 4 Gait Training Does the Patient Walk?: Yes Distance: 350 feet Walk 10 feet (QC): 4 Walk 50 ft with 2 Turns(QC): 4 Walk 150 ft (QC): 4 Walking 10ft/uneven surface-QC: 4 Gait Persons Needed: 1 Gait Assistive Device: FWW Wheelchair Training Does the Pt Use a Wheelchair?: No Wheel 50 ft with 2 turns (QC): 9 Wheel 150 ft (QC): 9 Stair Training 1 Step (curb) (QC): 4 4 Steps (QC): 88 12 Steps (QC): 88 Balance Picking up an Object (QC): 4 ADL-Treatment Eating (QC): 6 Oral Hygiene (QC): 6 Shower/Bathe Self (QC): 3 Upper Body Dressing (QC): 5 Lower Body Dressing (QC): 4 On/Off Footwear (QC): 5 Toileting Hygiene (QC): 4 Toilet Transfer (QC): 4 Assessment/Plan Assessment and Plan Assess & Plan/Chief Complaint Assessment: Debility Fever of unknown origin presumed meningitis placed on vancomycin, Rocephin, doxycycline, acyclovir, Diflucan by PCP CAD Hypertension Hyperlipidemia BPH Urinary retention Fall risk Obstructive sleep apnea Plan: Supportive care Antibiotics Monitor closely PT OT 10/14/2021: Monitor for hallucinations Complete antibiotics 10/15/2021: Complete antibiotics 10/16/2021: DC planning 10/17/2021: Monitor closely Aggressive fall risk (1) Debility (2) Altered mental status Status: Acute (3) Maxillary sinusitis Status: Acute (4) Fever of unknown origin Status: Acute (5) Urinary retention Status: Acute (6) Febrile illness Status: Acute (7) Myopathy (8) CAD (coronary artery disease) (9) Sleep apnea in adult ABIEL SAUNDERS DO Oct 17, 2021 10:35
[2021-10-17] MEDS: SENNA W/DOCUSATE (SENOKOT S) TABLET PO SCH ×2 (11:32→19:57)
[2021-10-17] MEDS: DOCUSATE SODIUM 100 MG (COLACE) CAP PO SCH ×2 (11:32→19:56)
[2021-10-17] MEDS: polyethylene glycoL POWDER 17 GM (MIRALAX) PACK PO SCH ×2 (11:32→19:57)
--- NOTE | 2021-10-17 11:36 | Physical Therapy Daily Note ---
PT Daily Note-Current Subjective Pt. is on the phone with his as this MARKETING SALES REPRESENTATIVE enters. The discussion is whether pt. is DCing today or Friday. During initial part of Rx Drs Felisha and Cherie share that it is best interest if pt. stays until Friday. Pt. and are agreeable. Pt. has 4 stairs with bilat railing at home Pain Location: No Pain Reported Mental Status Patient Orientation: Normal For Age Transfers SCALE: Activities may be completed with or without assistive devices. 2-Krrfkayrup-ltvyxpf completes the activity by him/herself with no assistance from a helper. 5-Set-up or Clean-up Assistance-helper sets up or cleans up; patient completes activity. [place] assists only prior to or following the activity. 4-Supervision or Touching Assistance-helper provides verbal cues and/or touching/steadying and/or contact guard assistance as patient completes ac tivity. Assistance may be provided throughout the activity or intermittently. 3-Partial/Moderate Assistance-helper does LESS THAN HALF the effort. [place] lifts, holds or supports trunk or limbs, but provides less than half the effort. 2-Substantial/Maximal Assistance-helper does MORE THAN HALF the effort. [place] lifts or holds trunk or limbs and provides more than half the effort. 1-Qcvjlqlsd-ysnxqz does ALL the effort. Patient does none of the effort to complete the activity. Or, the assistance of 2 or more helpers is required for the patient to complete the activity. If activity was not attempted, code reason: 7-Patient Refused. 9-Not Applicable-not attempted and the patient did not perform the activity before the current illness, exacerbation or injury. 10-Not Attempted due to Environmental Limitations-(lack of equipment, weather restraints, etc.). 88-Not Attempted due to Medical Conditions or Safety Concerns. Roll Left & Right (QC): 6 Sit to Lying (QC): 6 Lying to Sitting/Side of Bed(Q: 6 Sit to Stand (QC): 6 Chair/Nvv-ig-Fopuj Xfer(QC): 4 Gait Training Does the Patient Walk?: Yes Walk 10 feet (QC): 4 Walk 50 ft with 2 Turns(QC): 4 Walk 150 ft (QC): 4 Gait Persons Needed: 1 Gait Assistive Device: FWW pt. had 2 incidents of knees "melting" suddenly with gait and FWW, no LOB, pt. recovered indep. but comments himself that his knee and leg has done this since the surgery and he hopes it will improve soon. Wheelchair Training Does the Pt Use a Wheelchair?: Yes Wheel 50 ft with 2 turns (QC): 6 Wheel 150 ft (QC): 6 Type of Wheelchair: Manual Stair Training Stair Training: Handrails/: 2 handrails #of Steps: 4 4 Steps (QC): 4 Stairs: Pattern: Step to descending was challenging as right LE instability Exercises Supine Ex: Bridging, Ankle pumps, Quad Set, Rolling, Glut sets, Heel Slides, Short Arc Quads, Scooting, Straight leg raise, Hip abd/add (sidelying) Supine Reps: 15 Seated Therapy Exercises: Ankle pumps, Sit to stand, Long arc quads, Hip flexion Seated Reps: 15 NuStep Minutes: 12 NuStep Workload: 6 Treatments leg presses on Nustep with manual resistance x 12 reps Assessment Current Status: Good Progress PT Direct Entry Midwife Goals Direct Entry Midwife Goals PT Direct Entry Midwife Goals Time Frame: Nov 03, 2021 Roll Left & Right (QC): 6 Sit to Lying (QC): 6 Lying-Sitting on Side/Bed(QC): 6 Sit to Stand (QC): 6 Chair/Dtt-ky-Wejmq Xfer(QC): 6 Toilet Transfer (QC): 6 Car Transfer (QC): 6 Does the Patient Walk: Yes Walk 10 feet (QC): 6 Walk 50ft with 2 Turns (QC): 6 Walk 150 ft (QC): 6 Walking 10ft on Uneven Surface: 6 1 Step (curb) (QC): 6 4 Steps (QC): 6 12 Steps (QC): 6 Picking up an Object (QC): 6 Does the Pt use WC or Scooter?: No Wheel 50 feet with 2 turns (QC: 9 Wheel 150 feet: 9 PT Plan Treatment/Plan Treatment Plan: Continue Plan of Care Treatment Plan: Bed Mobility, Concurrent Therapy, Functional Activity Rachelle, Functional Strength, Group Therapy, Gait, Safety, Therapeutic Exercise, Transfers Treatment Duration: Nov 03, 2021 Frequency: At least 5 of 7 days/Wk (IRF) Estimated Hrs Per Day: 1.5 hours per day Patient and/or Family Agrees t: Yes Safety Risks/Education Patient Education: Gait Training, Transfer Techniques, Steps, Correct Positioning, W/C Management, Disease Process, Safety Issues Teaching Recipient: Patient Teaching Methods: Demonstration, Discussion Response to Teaching: Verbalize Understanding, Return Demonstration, Reinforcement Needed Time/GCodes Time In: 1015 Time Out: 1130 Total Billed Treatment Time: 75 Total Billed Treatment 1,EX35m,GT10m,FA30m JOY MORTENSEN MARKETING SALES REPRESENTATIVE Oct 17, 2021 11:36
[2021-10-17 19:46] VITALS: BP 150/81
[2021-10-17] MEDS: MIRTAZAPINE 15 MG (REMERON) TAB PO SCH (20:55)
[2021-10-17] MEDS: MAGNESIUM OXIDE (MAG-OX)400 MG TAB PO SCH (20:55)
[2021-10-17] MEDS: ASPIRIN E.C. 81 MG (ECOTRIN) TAB PO SCH (20:56)
--- NOTE | 2021-10-18 06:45 | PM&R Progress Note ---
Subjective HPI/CC On Admission Date Seen by Provider: Oct 18, 2021 Time Seen by Provider: 10:30 Subjective/Events-last exam 10/18/2021: Patient ready for DC tomorrow Told me pharmacy incorrectly, confirmed with Julianne not Dillidanish Cognitive changes confirmed 10/17/2021: Pt is doing pretty well Pt was delayed in discharge because he almost fell at the sink in the bathroom Confusion is subtle Finished with antibiotics Overall doing very well Discharge planned for Friday10/16/2021: Pt and want him to discharge Will reach out to Dr. Baeza to see how long antibiotics need to be initiated, then we will discharge home Fever occurred at 101 and hallucinations said he can do that at home No other concerns 10/15/2021: Patient having no new issues Reported hallucinations last night in bed nurses do not report any major issues IV antibiotics maintained 10/14/2021: Patient doing pretty well Slept soundly no pain is reported IV antibiotics maintained Some confusion Monitor closely Review of Systems General: Fatigue, Malaise Objective Exam Vital Signs Vital Signs Date Time Temp Pulse Resp B/P (MAP) Pulse Ox O2 Delivery O2 Flow Rate FiO2 10/18/21 21:27 35.9 10/18/21 20:00 Room Air 10/18/21 19:22 76 20 142/76 (98) 98 Capillary Refill : General Appearance: No Apparent Distress, WD/WN, Chronically ill HEENT: PERRL/EOMI, Normal ENT Inspection, Pharynx Normal Neck: Full Range of Motion, Normal Inspection, Non Tender, Supple, Carotid Bruit Respiratory: Chest Non Tender, Lungs Clear, No Accessory Muscle Use, No Respiratory Distress, Decreased Breath Sounds Cardiovascular: Regular Rate, Rhythm, No Edema, No Gallop, No JVD, No Murmur, Normal Peripheral Pulses Gastrointestinal: Normal Bowel Sounds, No Organomegaly, No Pulsatile Mass, Non Tender, Soft Back: Normal Inspection, No CVA Tenderness, No Vertebral Tenderness Extremity: Normal Capillary Refill, Normal Inspection, Normal Range of Motion, Non Tender, No Calf Tenderness, No Pedal Edema Neurologic/Psychiatric: Alert, Oriented x3, No Motor/Sensory Deficits, Normal Mood/Affect, kiln tester II-XII Norm as Tested, Abnormal Gait, Depressed Affect, Motor Weakness (Generalized 3/5 all extremities) Skin: Normal Color, Warm/Dry Lymphatic: No Adenopathy Results/Procedures Lab Patient resulted labs reviewed. FIM Transfers Therapy Code Descriptions/Definitions Functional [place] Measure: 0=Not Assessed/NA 4=Minimal Assistance 1=Total Assistance 5=Supervision or Setup 2=Maximal Assistance 6=Modified [place] 3=Moderate Assistance 7=Complete IndependenceSCALE: Activities may be completed with or without assistive devices. 8-Yrkihxskpw-ugqctns completes the activity by him/herself with no assistance from a helper. 5-Set-up or Clean-up Assistance-helper sets up or cleans up; patient completes activity. [place] assists only prior to or following the activity. 4-Supervision or Touching Assistance-helper provides verbal cues and/or touching/steadying and/or contact guard assistance as patient completes activity. Assistance may be provided throughout the activity or intermittently. 3-Partial/Moderate Assistance-helper does LESS THAN HALF the effort. [place] lifts, holds or supports trunk or limbs, but provides less than half the effort. 2-Substantial/Maximal Assistance-helper does MORE THAN HALF the effort. [place] lifts or holds trunk or limbs and provides more than half the effort. 4-Eamrepfnu-fyhryb does ALL the effort. Patient does none of the effort to complete the activity. Or, the assistance of 2 or more helpers is required for the patient to complete the activity. If activity was not attempted, code reason: 7-Patient Refused. 9-Not Applicable-not attempted and the patient did not perform the activity before the current illness, exacerbation or injury. 10-Not Attempted due to Environmental Limitations-(lack of equipment, weather restraints, etc.). 88-Not Attempted due to Medical Conditions or Safety Concerns. Roll Left to Right (QC): 6 Sit to Lying (QC): 6 Sit to Stand (QC): 6 Chair/Tgj-dl-Jymsb Xfer(QC): 4 Car Transfer (QC): 4 Gait Training Does the Patient Walk?: Yes Distance: 350 feet Walk 10 feet (QC): 4 Walk 50 ft with 2 Turns(QC): 4 Walk 150 ft (QC): 4 Walking 10ft/uneven surface-QC: 4 Gait Persons Needed: 1 Gait Assistive Device: FWW Wheelchair Training Does the Pt Use a Wheelchair?: Yes Wheel 50 ft with 2 turns (QC): 6 Wheel 150 ft (QC): 6 Type of Wheelchair: Manual Stair Training Stair Training: Handrails/: 2 handrails #of Steps: 4 1 Step (curb) (QC): 4 4 Steps (QC): 4 12 Steps (QC): 88 Stairs: Pattern: Step to Balance Picking up an Object (QC): 4 ADL-Treatment Eating (QC): 6 Oral Hygiene (QC): 6 Shower/Bathe Self (QC): 3 Upper Body Dressing (QC): 5 Lower Body Dressing (QC): 4 On/Off Footwear (QC): 5 Toileting Hygiene (QC): 4 Toilet Transfer (QC): 4 Assessment/Plan Assessment and Plan Assess & Plan/Chief Complaint Assessment: Debility Fever of unknown origin presumed meningitis placed on vancomycin, Rocephin, doxycycline, acyclovir, Diflucan by PCP CAD Hypertension Hyperlipidemia BPH Urinary retention Fall risk Obstructive sleep apnea Plan: Supportive care Antibiotics Monitor closely PT OT 10/14/2021: Monitor for hallucinations Complete antibiotics 10/15/2021: Complete antibiotics 10/16/2021: DC planning 10/17/2021: Monitor closely Aggressive fall risk 10/18/2021: DC Friday (1) Debility (2) Altered mental status Status: Acute (3) Maxillary sinusitis Status: Acute (4) Fever of unknown origin Status: Acute (5) Urinary retention Status: Acute (6) Febrile illness Status: Acute (7) Myopathy (8) CAD (coronary artery disease) (9) Sleep apnea in adult ABIEL SAUNDERS Oct 18, 2021 06:45
[2021-10-18] MEDS: CYANOCOBALAMIN 1,000 MCG (VITAMIN B-12) TABLET PO SCH (06:53)
[2021-10-18] MEDS: VITAMIN D3 10 MCG (400 UNITS) TABLET PO SCH (06:53)
[2021-10-18 07:16] VITALS: BP 155/78
[2021-10-18] MEDS: APIXABAN 5 MG (ELIQUIS) TABLET PO SCH ×2 (07:34→20:20)
[2021-10-18] MEDS: DRONEDARONE 400 MG TABLET PO SCH ×2 (07:35→20:19)
[2021-10-18] MEDS: LEVOTHYROXINE 50 MCG (LEVOTHROID) TAB PO SCH (07:35)
[2021-10-18] MEDS: RANOLAZINE ER 500 MG TAB (RANEXA) PO SCH ×2 (07:35→20:20)
[2021-10-18] MEDS: PANTOPRAZOLE 40 MG (PROTONIX) TAB PO SCH (07:35)
[2021-10-18] MEDS: FOLIC ACID 1 MG TAB PO SCH (07:35)
--- NOTE | 2021-10-18 09:00 | Speech Therapy Daily Note ---
Speech Daily Progress Note Subjective Date Seen by Provider: Oct 18, 2021 Time Seen by Provider: 08:30 The patient was seated upright in his recliner, sleeping upon entrance to his room. The patient woke with a verbal greeting from the clinician and was agreeable to participation in the cognitive linguistic treatment session. Objective - Orientation: The patient remains oriented to self, location, city, month, day of the week, year and room number (independently). - Safety in the Home: The clinician discussed safety in the home with the patient, specifically mobility. The patient stated he has a railing on both sides of his stairs and does consistently use the railing to enter and exit the home. Additionally, the patient stated he consistently uses his walker throughout the home and each door frame is wide enough for the walker to clear safely. Expression of Ideas/Wants: Exhibits (3) Understanding Verbal Content: Usually Understands (3) Brief Interview-Mental Status: Yes Repetition of Three Words: Three (3) Temporal Orientation: Year: Correct (3) Temporal Orientation: Month: Accurate within 5 days(2) Temporal Orientation: Day: Correct (1) Recall : Wear to say "Sock": Yes, no cue required (2) Recall : Color: Yes, no cue required (2) Recall : Bed: Yes, no cue required (2) Memory/Recall Ability: Current season, That he or she is in a hsp/hsp unit, staff names, room number Assessment Assessment Current Status: Fair Progress Treatment Plan Continue Plan of Care Speech Short Term Goals Short Term Goals Short Term Goals 1. The patient will display 75% accuracy with memory exercises with mild cli nician verbal and visual cues. Time Frame-STG: One Week. Speech Looper Operator Goals Halfway Goals 1. The patient will demonstrate improved cognitive linguistic skills for safe discharge to the least restrictive environment. Time Frame: Two Weeks. Speech-Plan Treatment Plan Speech Therapy Treatment Plan: Continue Plan of Care Treatment Duration: Oct 16, 2021 Frequency: 4 times per week (Four to five times per week.) Estimated Hrs Per Day: .5 hour per day Rehab Potential: Fair Safety Risks/Education Teaching Recipient: Patient Teaching Methods: Discussion Response to Teaching: Reinforcement Needed Education Topics Provided: Safety in the Home Time Speech Therapy Time In: 08:30 Speech Therapy Time Out: 09:00 Total Billed Time: 30 Billed Treatment Time RUMA De Guzman [facility] Oct 18, 2021 09:00
--- NOTE | 2021-10-18 09:01 | Therapy Team Discharge Summary ---
Therapy Discharge Summary Discharge Recommendations Date of Discharge Physical Therapy Roll Left to Right (QC): 6 Sit to Lying (QC): 6 Lying to Sitting/Side of Bed(Q: 6 Sit to Stand (QC): 6 Chair/[place] Xfer(QC): 4 Toilet Transfer (QC): 4 Car Transfer (QC): 4 Does the Patient Walk: Yes Mode of Locomotion: Walk Anticipated Mode of Locomotion: Walk Walk 10 feet (QC): 4 Walk 50 ft with 2 Turns(QC): 4 Walk 150 ft (QC): 4 Walking 10ft on uneven surface: 4 Distance: 186ft Gait Assistive Device: FWW Does the Pt Use a Wheelchair: Yes Wheel 50 ft with 2 turns (QC): 6 Wheel 150 ft (QC): 6 Type of Wheelchair: Manual #of Steps: 4 1 Step (curb) (QC): 4 4 Steps (QC): 4 12 Steps (QC): 88 Walking Assistive Device: Walker Balance Sitting Static: Normal Balance Sitting Dynamic: Normal Balance-Standing Static: Normal Picking up an Object (QC): 4 Occupational Therapy Decreased Activ Tolerance, Decreased Safety Aware, Decreased UE Strength, Impaired Coordination, Impaired Funct Balance, Impaired Self-Care Skills Eating (QC): 6 Oral Hygiene (QC): 6 Shower/Bathe Self (QC): 3 Upper Body Dressing (QC): 5 Lower Body Dressing (QC): 4 On/Off Footwear (QC): 5 Toileting Hygiene (QC): 4 Speech-Language Pathology Expression of Ideas/Wants: Exhibits (3) Understanding Verbal Content: Usually Understands (3) Brief Interview-Mental Status: Yes Repetition of Three Words: Three (3) Temporal Orientation: Year: Correct (3) Temporal Orientation: Month: Accurate within 5 days(2) Temporal Orientation: Day: Correct (1) Recall : Wear to say "Sock": Yes, no cue required (2) Recall : Color: Yes, no cue required (2) Recall : Bed: Yes, no cue required (2) Memory/Recall Ability: Current season, That he or she is in a hsp/hsp unit, staff names, room number The patient continues to display confusion and require safety cues throughout mobility. The clinician continues to recommend close supervision at discharge. PT Fdc Goals Fdc Goals PT Fdc Goals Time Frame: Nov 03, 2021 Roll Left to Right (QC): 6 Sit to Lying (QC): 6 Lying-Sitting on Side/Bed(QC): 6 Sit to Stand (QC): 6 Chair/Ykn-kn-Uszum Xfer(QC): 6 Car Transfer (QC): 6 Does the Patient Walk: Yes Walk 10 feet (QC): 6 Walk 10ft-Uneven Surface(QC): 6 Walk 50ft with 2 Turns (QC): 6 Walk 150 ft (QC): 6 Does the Pt use WC or Scooter?: No Wheel 50 feet with 2 turns (QC: 9 1 Step (curb) (QC): 6 4 Steps (QC): 6 12 Steps (QC): 6 Picking up an Object (QC): 6 OT Fdc Goals Fdc Goals Time Frame: Nov 01, 2021 Eating (FIM): 6 Eating (QC): 6 (met) Oral Hygiene (QC): 6 (met) Shower/Bathe Self (QC): 5 (not met) Upper Body Dressing (QC): 6 (not met) Lower Body Dressing (QC): 5 (not met) On/Off Footwear (QC): 6 (not met) Toileting Hygiene (QC): 6 (not met) Toilet/Commode Transfer (QC): 6 1=Demonstrate adherence to instructed precautions during ADL tasks. 2=Patient will verbalize/demonstrate understanding of assistive devices/modifications for ADL. 3=Patient will improve strength/tolerance for activity to enable patient to perform ADL's. Speech Emt/Paramedic Goals Emt/Paramedic Goals 1. The patient will demonstrate improved cognitive linguistic skills for safe discharge to the least restrictive environment. Time Frame: Two Weeks. FRANK TORRES Oct 18, 2021 09:01
--- NOTE | 2021-10-18 10:03 | Physical Therapy Daily Note ---
PT Daily Note-Current Subjective Pt. agrees to Rx, Pain Location: No Pain Reported Mental Status Patient Orientation: Person, Place pt. did not know what day of week it was, and says he does not trust this WAITSTAFF and will need to look at his new flip phone to verify that iit is Th Transfers SCALE: Activities may be completed with or without assistive devices. 9-Iilommcyig-cwhpkjo completes the activity by him/herself with no assistance from a helper. 5-Set-up or Clean-up Assistance-helper sets up or cleans up; patient completes activity. [place] assists only prior to or following the activity. 4-Supervision or Touching Assistance-helper provides verbal cues and/or touching/steadying and/or contact guard assistance as patient completes activity. Assistance may be provided throughout the activity or intermittently. 3-Partial/Moderate Assistance-helper does LESS THAN HALF the effort. [place] lifts, holds or supports trunk or limbs, but provides less than half the effort. 2-Substantial/Maximal Assistance-helper does MORE THAN HALF the effort. [place] lifts or holds trunk or limbs and provides more than half the effort. 3-Dicrbaubc-gzvpsz does ALL the effort. Patient does none of the effort to complete the activity. Or, the assistance of 2 or more helpers is required for the patient to complete the activity. If activity was not attempted, code reason: 7-Patient Refused. 9-Not Applicable-not attempted and the patient did not perform the activity before the current illness, exacerbation or injury. 10-Not Attempted due to Environmental Limitations-(lack of equipment, weather restraints, etc.). 88-Not Attempted due to Medical Conditions or Safety Concerns. Roll Left & Right (QC): 6 Sit to Lying (QC): 6 Lying to Sitting/Side of Bed(Q: 6 Sit to Stand (QC): 6 Chair/Gzg-qk-Ifjhm Xfer(QC): 6 Toilet Transfer (QC): 6 Car Transfer (QC): 6 Gait Training Does the Patient Walk?: Yes Walk 10 feet (QC): 4 Walk 50 ft with 2 Turns(QC): 4 Walk 150 ft (QC): 4 Walking 10ft/uneven surface-QC: 4 Gait Persons Needed: 1 Gait Assistive Device: FWW some uneven steps, crossovers at turns and ataxic movements, no LOB, pt. instructs this WAITSTAFF not to touch him anywhere but the gait belt as he feels it throws him off even when he is deviating etc. Stair Training Stair Training: Handrails/: 2 handrails #of Steps: 4 1 Step (curb) (QC): 4 4 Steps (QC): 4 12 Steps (QC): 88 Stairs: Pattern: Step to needs instruction for safety and sequences Balance Picking up an Object (QC): 6 Exercises Supine Ex: Bridging, Ankle pumps, Quad Set, Rolling, Glut sets, Lower trunk rotation, Heel Slides, Short Arc Quads, Scooting, Straight leg raise, Hip abd/add Supine Reps: 20 NuStep Minutes: 10 NuStep Workload: 6 Assessment Current Status: Good Progress PT Shelter Goals Shelter Goals PT Shelter Goals Time Frame: Nov 03, 2021 Roll Left & Right (QC): 6 Sit to Lying (QC): 6 Lying-Sitting on Side/Bed(QC): 6 Sit to Stand (QC): 6 Chair/Byf-mi-Zlwiw Xfer(QC): 6 Toilet Transfer (QC): 6 Car Transfer (QC): 6 Does the Patient Walk: Yes Walk 10 feet (QC): 6 Walk 50ft with 2 Turns (QC): 6 Walk 150 ft (QC): 6 Walking 10ft on Uneven Surface: 6 1 Step (curb) (QC): 6 4 Steps (QC): 6 12 Steps (QC): 6 Picking up an Object (QC): 6 Does the Pt use WC or Scooter?: No Wheel 50 feet with 2 turns (QC: 9 Wheel 150 feet: 9 PT Plan Treatment/Plan Treatment Plan: Continue Plan of Care Treatment Plan: Bed Mobility, Concurrent Therapy, Functional Activity Rachelle, Functional Strength, Group Therapy, Gait, Safety, Therapeutic Exercise, Transfers Treatment Duration: Nov 03, 2021 Frequency: At least 5 of 7 days/Wk (IRF) Estimated Hrs Per Day: 1.5 hours per day Patient and/or Family Agrees t: Yes Safety Risks/Education Patient Education: Gait Training, Transfer Techniques, Steps, Correct Positioning, Disease Process, Safety Issues Teaching Recipient: Patient Teaching Methods: Demonstration, Discussion Response to Teaching: Verbalize Understanding, Return Demonstration, Reinforcement Needed Time/GCodes Time In: 900 Time Out: 1000 Total Billed Treatment Time: 60 Total Billed Treatment 1,FA30m,GT10m,EX20m JOY MORTENSEN WAITSTAFF Oct 18, 2021 10:03
[2021-10-18] MEDS: polyethylene glycoL POWDER 17 GM (MIRALAX) PACK PO SCH ×2 (11:11→20:38)
[2021-10-18] MEDS: DOCUSATE SODIUM 100 MG (COLACE) CAP PO SCH ×2 (11:11→20:37)
[2021-10-18] MEDS: SENNA W/DOCUSATE (SENOKOT S) TABLET PO SCH ×2 (11:12→20:38)
--- NOTE | 2021-10-18 11:21 | Occupational Ther Daily Note ---
OT Current Status-Daily Note Subjective Pt. does not report pain. Appearance Pt. in bed. Agreeable to work with OT. Mental Status/Objective Patient Orientation: Person, Place Attachments: IV ADL-Treatment Therapy Code Descriptions/Definitions Functional Mcdonald Measure: 0=Not Assessed/NA 4=Minimal Assistance 1=Total Assistance 5=Supervision or Setup 2=Maximal Assistance 6=Modified Mcdonald 3=Moderate Assistance 7=Complete IndependenceSCALE: Activities may be completed with or without assistive devices. 5-Mezbivnrfm-mirjsxz completes the activity by him/herself with no assistance from a helper. 5-Set-up or Clean-up Assistance-helper sets up or cleans up; patient completes activity. Reform assists only prior to or following the activity. 4-Supervision or Touching Assistance-helper provides verbal cues and/or touching/steadying and/or contact guard assistance as patient completes activity. Assistance may be provided throughout the activity or intermittently. 3-Partial/Moderate Assistance-helper does LESS THAN HALF the effort. Reform lifts, holds or supports trunk or limbs, but provides less than half the effort. 2-Substantial/Maximal Assistance-helper does MORE THAN HALF the effort. Reform lifts or holds trunk or limbs and provides more than half the effort. 4-Btqaymkyg-yjfxyf does ALL the effort. Patient does none of the effort to complete the activity. Or, the assistance of 2 or more helpers is required for the patient to complete the activity. If activity was not attempted, code reason: 7-Patient Refused. 9-Not Applicable-not attempted and the patient did not perform the activity before the current illness, exacerbation or injury. 10-Not Attempted due to Environmental Limitations-(lack of equipment, weather restraints, etc.). 88-Not Attempted due to Medical Conditions or Safety Concerns. Eating (QC): 5 (Set up per clinical judgement.) Oral Hygiene (QC): 4 (Supervision) Shower/Bathe Self (QC): 3 (Min assist and cues for safety while in stance in the shower. Pt. also leans back while seated, and requires cues at times to sit upright.) Upper Body Dressing (QC): 3 (Min assist to adjust shirt and pull down correctly.) Lower Body Dressing (QC): 3 (Mod assist to don pants and underwear over feet. Assist for steadying balance in stance to don over hips. Cues to to remember to doff brief.) On/Off Footwear: 3 (Pt. able to doff his own slipper socks, but required mod assist to don them.) Toileting Hygiene (QC): 88 Toilet Transfer (QC): 88 Other Treatment Pt. seen for shower/ADLs. Required cues for safety and balance when standing. Pt. declines needing assistance while donning socks/pants, but then is unable to fully get them on and does require assist. Pt. ambulates to chair at sink and completes shaving/brushing teeth/grooming tasks with supervision. Ambulates to bed at end of session and transfers with SBA and cues for positioning. All needs met. Education OT Patient Education: Correct positioning, Modified ADL techniques, Progress toward Goal/Update tx plan, Purpose of tx/functional activities, Reviewed precautions, Rehab process, Transfer techniques Teaching Recipient: Patient Teaching Methods: Demonstration, Discussion Response to Teaching: Verbalize Understanding, Return Demonstration OT Short Term Goals Short Term Goals Time Frame: Oct 22, 2021 Eatin Oral hygiene: 6 Toileting hygiene: 4 Shower/bathe self: 4 Upper body dressin Lower body dressin Putting on/taking off footwear: 5 OT Skilled Nursing Goals Electronic Gluer Goals Time Frame: Nov 01, 2021 Eating (QC): 6 (met) Oral Hygiene (QC): 6 (met) Toileting Hygiene (QC): 6 (not met) Shower/Bathe Self (QC): 5 (not met) Upper Body Dressing (QC): 6 (not met) Lower Body Dressing (QC): 5 (not met) On/Off Footwear (QC): 6 (not met) 1=Demonstrate adherence to instructed precautions during ADL tasks. 2=Patient will verbalize/demonstrate understanding of assistive devices/modifications for ADL. 3=Patient will improve strength/tolerance for activity to enable patient to perform ADL's. OT Education/Plan Problem List/Assessment Assessment: Decreased Activ Tolerance, Impaired I ADL's, Impaired Self-Care Skills Discharge Recommendations Plan/Recommendations: Continue POC Therapy Discharge Recommendati: Post Acute OT Treatment Plan/Plan of Care Treatment,Training & Education: Yes Patient would benefit from OT for education, treatment and training to promote independence in ADL's, mobility, safety and/or upper extremity function for ADL's. Plan of Care: ADL Retraining, Cognitive Retraining, Concurrent Therapy, Functional Mobility, Group Exercise/Act as Ind, UE Funct Exercise/Act, UE Neuromus Re-Ed/Coord Treatment Duration: Nov 01, 2021 Frequency: At least 5 of 7 days/Wk (IRF) Estimated Hrs Per Day: 1.5 hours per day (75-90 min/day ) Agreement: Yes Rehab Potential: Fair Time/GCodes Start Time: 10:00 Stop Time: 11:15 Total Time Billed (hr/min): 75 Billed Treatment Time 1, ADL x 5 ALBERTO GARCIA OT Oct 18, 2021 11:21
--- NOTE | 2021-10-18 12:05 | Physical Therapy Daily Note ---
PT Daily Note-Current Subjective Pt. agrees to Rx, earlier Rx pt. had expressed that he felt there were times during sit to sup that he had difficulty bringing RLE in to the bed, so this was the focus of this Rx Pain Location: No Pain Reported Mental Status Patient Orientation: Normal For Age Transfers SCALE: Activities may be completed with or without assistive devices. 7-Zfzzxggzem-ryaewfa completes the activity by him/herself with no assistance from a helper. 5-Set-up or Clean-up Assistance-helper sets up or cleans up; patient completes activity. [place] assists only prior to or following the activity. 4-Supervision or Touching Assistance-helper provides verbal cues and/or touching/steadying and/or contact guard assistance as patient completes activity. Assistance may be provided throughout the activity or intermittently. 3-Partial/Moderate Assistance-helper does LESS THAN HALF the effort. [place] lifts, holds or supports trunk or limbs, but provides less than half the effort. 2-Substantial/Maximal Assistance-helper does MORE THAN HALF the effort. [place] lifts or holds trunk or limbs and provides more than half the effort. 9-Omramcnxf-tmxmio does ALL the effort. Patient does none of the effort to complete the activity. Or, the assistance of 2 or more helpers is required for the patient to complete the activity. If activity was not attempted, code reason: 7-Patient Refused. 9-Not Applicable-not attempted and the patient did not perform the activity before the current illness, exacerbation or injury. 10-Not Attempted due to Environmental Limitations-(lack of equipment, weather restraints, etc.). 88-Not Attempted due to Medical Conditions or Safety Concerns. sit to sup x 3 sit step by step instructions and no difficulty noted. Pt. encouraged to lay down on right side then lift LLE in then roll on back which naturally seemed to bring RLE in, all done with ease this Rx. Gait Training Does the Patient Walk?: Yes Gait Assistive Device: FWW 50 ft x 1 CGA focusing on turns and manuevering in small spaces of the room. Pt was given cues for turns and safety Assessment Current Status: Good Progress PT Pumper Gauger Goals Prison Goals PT Pumper Gauger Goals Time Frame: Nov 03, 2021 Roll Left & Right (QC): 6 Sit to Lying (QC): 6 Lying-Sitting on Side/Bed(QC): 6 Sit to Stand (QC): 6 Chair/Gkk-go-Cwqzl Xfer(QC): 6 Toilet Transfer (QC): 6 Car Transfer (QC): 6 Does the Patient Walk: Yes Walk 10 feet (QC): 6 Walk 50ft with 2 Turns (QC): 6 Walk 150 ft (QC): 6 Walking 10ft on Uneven Surface: 6 1 Step (curb) (QC): 6 4 Steps (QC): 6 12 Steps (QC): 6 Picking up an Object (QC): 6 Does the Pt use WC or Scooter?: No Wheel 50 feet with 2 turns (QC: 9 Wheel 150 feet: 9 PT Plan Treatment/Plan Treatment Plan: Continue Plan of Care Treatment Plan: Bed Mobility, Concurrent Therapy, Functional Activity Rachelle, Functional Strength, Group Therapy, Gait, Safety, Therapeutic Exercise, Transfers Treatment Duration: Nov 03, 2021 Frequency: At least 5 of 7 days/Wk (IRF) Estimated Hrs Per Day: 1.5 hours per day Patient and/or Family Agrees t: Yes Safety Risks/Education Patient Education: Gait Training, Transfer Techniques Teaching Recipient: Patient Teaching Methods: Demonstration, Discussion Response to Teaching: Verbalize Understanding, Return Demonstration, Reinforcement Needed Time/GCodes Time In: 1145 Time Out: 1200 Total Billed Treatment Time: 15 Total Billed Treatment 1,FAWongm JOY MORTENSEN CARE ASSISTANT Oct 18, 2021 12:05
--- NOTE | 2021-10-18 17:31 | Physician Query Clarification ---
PQ-Uncertain Diagnosis Admission/Discharge Admission Date: Oct 13, 2021 at 11:31 Discharge Date: The medical record reflects the following clinical scenario: History/Risk Factors: fever Clinical Findings: fever Treatment: IV Fluids, IV antibiotics Question: Is meningitis a clinically valid diagnosis? 10/14 notes states fever of unknown origin presumed meningitis. We cannot use unconfirmed diagnosis on IRF accounts. Please document a response in Progress Note or Discharge Summary. 1. unspecified meningitis, confirmed 2. meningitis not confirmed 3. Other, with explanation of clinical findings. 4. Undetermined, no explanation for clinical findings. PHYSICIAN RESPONSE Diagnosis clinically valid: No, conditon ruled out In responding to this query, please exercise your independent professional judgment. The purpose of this communication is to more accurately reflect the complexity of your patients condition. The fact that a question is asked does not imply that any particular answer is desired or expected. Thank you for your timely response to this clarification. Requestors name: [ ] Phone # [ ] THIS PHYSICIAN QUERY FORM IS A PERMANENT PART OF THE MEDICAL RECORD GISELL CONNER Oct 18, 2021 17:31 ABIEL SAUNDERS DO Oct 19, 2021 05:49
[2021-10-18 19:22] VITALS: BP 142/76
[2021-10-18] MEDS: MAGNESIUM OXIDE (MAG-OX)400 MG TAB PO SCH (20:19)
[2021-10-18] MEDS: ASPIRIN E.C. 81 MG (ECOTRIN) TAB PO SCH (20:19)
[2021-10-18] MEDS: ACETAMINOPHEN 325 MG TABLET PO PRN (20:20)
[2021-10-18] MEDS: MIRTAZAPINE 15 MG (REMERON) TAB PO SCH (20:20)
--- NOTE | 2021-10-19 06:08 | Discharge Summary ---
Diagnosis/Chief Complaint Date of Admission Oct 13, 2021 at 11:31 Date of Discharge Discharge Date: Oct 19, 2021 Discharge Diagnosis Assessment: Debility Fever of unknown origin presumed meningitis placed on vancomycin, Rocephin, doxycycline, acyclovir, Diflucan by PCP CAD Hypertension Hyperlipidemia BPH Urinary retention Fall risk Obstructive sleep apnea Plan: Supportive care Antibiotics Monitor closely PT OT 10/14/2021: Monitor for hallucinations Complete antibiotics 10/15/2021: Complete antibiotics 10/16/2021: DC planning 10/17/2021: Monitor closely Aggressive fall risk 10/18/2021: DC Friday (1) Debility (2) Altered mental status Status: Acute (3) Maxillary sinusitis Status: Acute (4) Fever of unknown origin Status: Acute (5) Urinary retention Status: Acute (6) Febrile illness Status: Acute (7) Myopathy (8) CAD (coronary artery disease) (9) Sleep apnea in adult Discharge Summary Discharge Physical Examination Allergies: Coded Allergies: No Known Drug Allergies (Verified , 02/23/08) Vitals & I&Os Vital Signs Date Time Temp Pulse Resp B/P (MAP) Pulse Ox O2 Delivery O2 Flow Rate FiO2 10/19/21 11:20 36.7 78 18 157/93 92 Room Air General Appearance: Alert, Oriented X3, Cooperative Respiratory: Clear to Auscultation Cardiovascular: Regular Rate Neuro: Normal Gait, Normal Speech, Strength at 5/5 X4 Ext Psych/Mental Status: Mental Status NL Hospital Course Was the Problem List Reviewed?: Yes Lengthy course after admitted for debility and FUO. PCP placed him on broad spectrum abx and acyclovir. Patient completed that regimen to cover for possible meningitis. Labs remained stable. No decompensation occurred during stay. Fall risk prevention maintained because he did have a near fall 2 days prior to DC which delayed DC. Cognitive decline noted so will have close f/u with PCP. PT OT maintained aggressive management and regained enough ADL and independence he was DC in improved condition. Labs (last 24 hrs) Laboratory Tests 10/14/21 05:45: White Blood Count 7.2, Red Blood Count 3.30L, Hemoglobin 10.8L, Hematocrit 32L, Mean Corpuscular Volume 98, Mean Corpuscular Hemoglobin 33, Mean Corpuscular Hemoglobin Concent 33, Red Cell Distribution Width 15.5H, Platelet Count 237, Mean Platelet Volume 8.6L, Immature Granulocyte % (Auto) 1, Neutrophils (%) (Auto) 64, Lymphocytes (%) (Auto) 25, Monocytes (%) (Auto) 7, Eosinophils (%) (Auto) 3, Basophils (%) (Auto) 0, Neutrophils # (Auto) 4.6, Lymphocytes # (Auto) 1.8, Monocytes # (Auto) 0.5, Eosinophils # (Auto) 0.2, Basophils # (Auto) 0.0, Immature Granulocyte # (Auto) 0.0, Sodium Level 138, Potassium Level 3.5L, Chloride Level 107, Carbon Dioxide Level 20L, Anion Gap 11, Blood Urea Nitrogen 6L, Creatinine 0.81, Estimat Glomerular Filtration Rate 89, BUN/Creatinine Ratio 7, Glucose Level 93, Calcium Level 8.7, Corrected Calcium 9.4, Total Bilirubin 0.4, Aspartate Amino Transf (AST/SGOT) 19, Alanine Aminotransferase (ALT/SGPT) 13, Alkaline Phosphatase 54, Total Protein 5.4L, Albumin 3.1L 10/16/21 05:15: Sodium Level 140, Potassium Level 3.5L, Chloride Level 107, Carbon Dioxide Level 22, Anion Gap 11, Blood Urea Nitrogen 7, Creatinine 0.84, Estimat Glomerular Filtration Rate 88, BUN/Creatinine Ratio 8, Glucose Level 92, Calcium Level 9.0, Corrected Calcium 9.8, Total Bilirubin 0.3, Aspartate Amino Transf (AST/SGOT) 20, Alanine Aminotransferase (ALT/SGPT) 14, Alkaline Phosphatase 55, Total Protein 5.3L, Albumin 3.0L 10/16/21 07:30: White Blood Count 7.3, Red Blood Count 3.55L, Hemoglobin 11.7L, Hematocrit 35L, Mean Corpuscular Volume 99, Mean Corpuscular Hemoglobin 33, Mean Corpuscular Hemoglobin Concent 33, Red Cell Distribution Width 15.9H, Platelet Count 235, Mean Platelet Volume 8.7L, Immature Granulocyte % (Auto) 1, Neutrophils (%) (Auto) 68, Lymphocytes (%) (Auto) 19, Monocytes (%) (Auto) 8, Eosinophils (%) (Auto) 5, Basophils (%) (Auto) 1, Neutrophils # (Auto) 4.9, Lymphocytes # (Auto) 1.4, Monocytes # (Auto) 0.6, Eosinophils # (Auto) 0.3, Basophils # (Auto) 0.0, Immature Granulocyte # (Auto) 0.0 Pending Labs Laboratory Tests 10/14/21 05:45: White Blood Count 7.2, Red Blood Count 3.30, Hemoglobin 10.8, Hematocrit 32, Mean Corpuscular Volume 98, Mean Corpuscular Hemoglobin 33, Mean Corpuscular Hemoglobin Concent 33, Red Cell Distribution Width 15.5, Platelet Count 237, Mean Platelet Volume 8.6, Immature Granulocyte % (Auto) 1, Neutrophils (%) (Auto) 64, Lymphocytes (%) (Auto) 25, Monocytes (%) (Auto) 7, Eosinophils (%) (Auto) 3, Basophils (%) (Auto) 0, Neutrophils # (Auto) 4.6, Lymphocytes # (Auto) 1.8, Monocytes # (Auto) 0.5, Eosinophils # (Auto) 0.2, Basophils # (Auto) 0.0, Immature Granulocyte # (Auto) 0.0, Sodium Level 138, Potassium Level 3.5, Chloride Level 107, Carbon Dioxide Level 20, Anion Gap 11, Blood Urea Nitrogen 6, Creatinine 0.81, Estimat Glomerular Filtration Rate 89, BUN/Creatinine Ratio 7, Glucose Level 93, Calcium Level 8.7, Corrected Calcium 9.4, Total Bilirubin 0.4, Aspartate Amino Transf (AST/SGOT) 19, Alanine Aminotransferase (ALT/SGPT) 13, Alkaline Phosphatase 54, Total Protein 5.4, Albumin 3.1 10/16/21 05:15: Sodium Level 140, Potassium Level 3.5, Chloride Level 107, Carbon Dioxide Level 22, Anion Gap 11, Blood Urea Nitrogen 7, Creatinine 0.84, Estimat Glomerular Filtration Rate 88, BUN/Creatinine Ratio 8, Glucose Level 92, Calcium Level 9.0, Corrected Calcium 9.8, Total Bilirubin 0.3, Aspartate Amino Transf (AST/SGOT) 20, Alanine Aminotransferase (ALT/SGPT) 14, Alkaline Phosphatase 55, Total Protein 5.3, Albumin 3.0 10/16/21 07:30: White Blood Count 7.3, Red Blood Count 3.55, Hemoglobin 11.7, Hematocrit 35, Mean Corpuscular Volume 99, Mean Corpuscular Hemoglobin 33, Mean Corpuscular Hemoglobin Concent 33, Red Cell Distribution Width 15.9, Platelet Count 235, Mean Platelet Volume 8.7, Immature Granulocyte % (Auto) 1, Neutrophils (%) (Auto) 68, Lymphocytes (%) (Auto) 19, Monocytes (%) (Auto) 8, Eosinophils (%) (Auto) 5, Basophils (%) (Auto) 1, Neutrophils # (Auto) 4.9, Lymphocytes # (Auto) 1.4, Monocytes # (Auto) 0.6, Eosinophils # (Auto) 0.3, Basophils # (Auto) 0.0, Immature Granulocyte # (Auto) 0.0 Discharge Home Medications: Active Scripts Active Reported Vitamin D3 (Cholecalciferol (Vitamin D3)) 25 Mcg (1000 Unit) Tab.chew 25 Mcg PO DAILY Krill Oil 1,000 mg Softgel (Krill/Om3/Dha/Epa/Om6/Lip/Astx) 1,000-130MG Capsule 1 Each PO BID Zinc 50 Mg Tablet 50 Mg PO DAILY Furosemide 20 Mg Tablet 20 Mg PO DAILY PRN Metoprolol Succinate 25 Mg Tab.er.24h 25 Mg PO HS Mirtazapine 15 Mg Tablet 7.5 Mg PO HS TAKES OF A 15MG TAB Calcium Carbonate 500 Mg Calcium (1250 Mg) Tablet 500 Mg PO DAILY Lisinopril 5 Mg Tablet 2.5 Mg PO BID TAKES 1/2 OF (5MG) TAB Allopurinol 100 Mg Tablet 100 Mg PO HS Potassium Gluconate 595 Mg (99 Mg) Tablet.er 99 Mg PO DAILY Vitamin B Complex-Vitamin C (B-Complex with Vitamin C) 1 Each Tablet 1 Each PO DAILY Multaq (Dronedarone HCl) 400 Mg Tablet 400 Mg PO BID Hydrocodone-Acetamin 10-325 mg (Hydrocodone/Acetaminophen) 1 Each Tablet 1 Ea PO Q6H PRN Ranolazine ER (Ranolazine) 1,000 Mg Tab.er.12h 1,000 Mg PO BID Centrum Silver Ultra Men's Tab (Multivit-Min/FA/Lycopene/Lut) 1 Each Tablet 1 Each PO DAILY Atorvastatin Calcium 40 Mg Tablet 40 Mg PO HS Magnesium (Magnesium Oxide) 400 Mg Tablet 400 Mg PO HS Eliquis (Apixaban) 5 Mg Tablet 5 Mg PO BID Pantoprazole Sodium 40 Mg Tablet.dr 40 Mg PO DAILY Levothyroxine Sodium 50 Mcg Tablet 50 Mcg PO DAILY Aspirin EC (Aspirin) 81 Mg Tablet.dr 81 Mg PO HS Doxazosin Mesylate 4 Mg Tablet 4 Mg PO HS Allopurinol 100 Mg Tablet 200 Mg PO DAILY TAKES 2 (100MG) TABS Instructions to patient/family Please see electronic discharge instructions given to patient. Diagnosis/Problems Diagnosis/Problems (1) Debility (2) Altered mental status Status: Acute (3) Maxillary sinusitis Status: Acute (4) Fever of unknown origin Status: Acute (5) Urinary retention Status: Acute (6) Febrile illness Status: Acute (7) Myopathy (8) CAD (coronary artery disease) (9) Sleep apnea in adult ABIEL SAUNDERS DO Oct 19, 2021 06:08
[2021-10-19] MEDS: CYANOCOBALAMIN 1,000 MCG (VITAMIN B-12) TABLET PO SCH (06:55)
[2021-10-19] MEDS: VITAMIN D3 10 MCG (400 UNITS) TABLET PO SCH (06:55)
[2021-10-19] MEDS: APIXABAN 5 MG (ELIQUIS) TABLET PO SCH (07:34)
[2021-10-19] MEDS: FOLIC ACID 1 MG TAB PO SCH (07:34)
[2021-10-19] MEDS: LEVOTHYROXINE 50 MCG (LEVOTHROID) TAB PO SCH (07:34)
[2021-10-19] MEDS: RANOLAZINE ER 500 MG TAB (RANEXA) PO SCH (07:34)
[2021-10-19] MEDS: DRONEDARONE 400 MG TABLET PO SCH (07:34)
[2021-10-19] MEDS: PANTOPRAZOLE 40 MG (PROTONIX) TAB PO SCH (07:37)
[2021-10-19] MEDS: SENNA W/DOCUSATE (SENOKOT S) TABLET PO SCH (07:39)
[2021-10-19] MEDS: DOCUSATE SODIUM 100 MG (COLACE) CAP PO SCH (07:39)
[2021-10-19] MEDS: polyethylene glycoL POWDER 17 GM (MIRALAX) PACK PO SCH (07:39)
[2021-10-19 07:42] VITALS: BP 157/93
[2021-10-19] MEDS ORDERED: VITAMIN D2 1.25 MG (50,000 UNITS) CAP PO SCH (09:00)
--- NOTE | 2021-10-19 09:10 | Therapy Team Discharge Summary ---
Therapy Discharge Summary Discharge Recommendations Date of Discharge Physical Therapy Patient came to rehab with sepsis. Upon evaluation patient performed rolling and supine <-> sit with setup, sit <-> stand and transfers with CGA/SBA, car transfers with CGA/SBA, ambulated 186' with a rolling walker with CGA/SBA ( including 50' with at least 2 turns of 90 degrees and 10' over an uneven surface), went up and down 1 step using a rolling walker with CGA/SBA, and picked up an object from the floor with CGA/SBA. Patient has been performing bed mobility and transfer training, balance and endurance training, functional strengthening, stair training, gait training, and education. Patient has made some progress but has not met his snf goals for ambulation or stairs. Now, patient performs rolling and supine <-> sit with independence, sit <-> stand and transfers with independence, car transfer independent, ambulates over 150' with a rolling walker with CGA/SBA (including 50' with at lest 2 turns of 90 degrees and 10' over an uneven surface), can go up and down 4 steps using 2 handrails with CGA/SBA, and can pear picker an object from the floor independently. Patient is being discharged from this facility today and will be discharged from PT at this time. Roll Left to Right (QC): 6 Sit to Lying (QC): 6 Lying to Sitting/Side of Bed(Q: 6 Sit to Stand (QC): 6 Chair/Bwh-ek-Fmzhj Xfer(QC): 6 Toilet Transfer (QC): 5 Car Transfer (QC): 6 Does the Patient Walk: Yes Mode of Locomotion: Walk Anticipated Mode of Locomotion: Walk Walk 10 feet (QC): 4 Walk 50 ft with 2 Turns(QC): 4 Walk 150 ft (QC): 4 Walking 10ft on uneven surface: 4 Distance: 186ft Gait Assistive Device: FWW Does the Pt Use a Wheelchair: Yes Wheel 50 ft with 2 turns (QC): 6 Wheel 150 ft (QC): 6 Type of Wheelchair: Manual #of Steps: 4 1 Step (curb) (QC): 4 4 Steps (QC): 4 12 Steps (QC): 88 Walking Assistive Device: Walker Balance Sitting Static: Normal Balance Sitting Dynamic: Normal Balance-Standing Static: Normal Picking up an Object (QC): 6 Occupational Therapy Decreased Activ Tolerance, Impaired I ADL's, Impaired Self-Care Skills Eating (QC): 5 (Set up per clinical judgement.) Oral Hygiene (QC): 4 (Supervision) Shower/Bathe Self (QC): 3 (Min assist and cues for safety while in stance in the shower. Pt. also leans back while seated, and requires cues at times to sit upright.) Upper Body Dressing (QC): 3 (Min assist to adjust shirt and pull down correctly.) Lower Body Dressing (QC): 3 (Mod assist to don pants and underwear over feet. Assist for steadying balance in stance to don over hips. Cues to to remember to doff brief.) On/Off Footwear (QC): 3 (Pt. able to doff his own slipper socks, but required mod assist to don them.) Toileting Hygiene (QC): 88 PT Assistant Front Desk Manager Goals Senior Care Goals PT Senior Care Goals Time Frame: Nov 03, 2021 Roll Left to Right (QC): 6 Sit to Lying (QC): 6 Lying-Sitting on Side/Bed(QC): 6 Sit to Stand (QC): 6 Chair/Sng-bm-Ayhrb Xfer(QC): 6 Car Transfer (QC): 6 Does the Patient Walk: Yes Walk 10 feet (QC): 6 Walk 10ft-Uneven Surface(QC): 6 Walk 50ft with 2 Turns (QC): 6 Walk 150 ft (QC): 6 Does the Pt use WC or Scooter?: No Wheel 50 feet with 2 turns (QC: 9 1 Step (curb) (QC): 6 4 Steps (QC): 6 12 Steps (QC): 6 Picking up an Object (QC): 6 OT Senior Care Goals Senior Care Goals Time Frame: Nov 01, 2021 Eating (FIM): 6 Eating (QC): 6 (met) Oral Hygiene (QC): 6 (met) Shower/Bathe Self (QC): 5 (not met) Upper Body Dressing (QC): 6 (not met) Lower Body Dressing (QC): 5 (not met) On/Off Footwear (QC): 6 (not met) Toileting Hygiene (QC): 6 (not met) Toilet/Commode Transfer (QC): 6 1=Demonstrate adherence to instructed precautions during ADL tasks. 2=Patient will verbalize/demonstrate understanding of assistive devices/modifications for ADL. 3=Patient will improve strength/tolerance for activity to enable patient to perform ADL's. Speech Senior Care Goals Assistant Front Desk Manager Goals 1. The patient will demonstrate improved cognitive linguistic skills for safe discharge to the least restrictive environment. Time Frame: Two Weeks. REED ROMAN PT Oct 19, 2021 09:10
[2021-10-19 11:20] VITALS: BP 157/93
--- NOTE | 2021-10-19 12:10 | Physician Query Clarification ---
PQ-Uncertain Diagnosis Admission/Discharge Admission Date: Oct 13, 2021 at 11:31 Discharge Date: The medical record reflects the following clinical scenario: History/Risk Factors: fever, debility, myopathy Clinical Findings: same as above Treatment: PT, OT, antibiotics Question: Can you clarify etiologic diagnosis for the IRF admission: 1. Myopathy 2. Debility 3. Other, please specify PHYSICIAN RESPONSE Diagnosis clinically valid: No, conditon ruled out In responding to this query, please exercise your independent professional judgment. The purpose of this communication is to more accurately reflect the complexity of your patients condition. The fact that a question is asked does not imply that any particular answer is desired or expected. Thank you for your timely response to this clarification. Requestors name: [ ] Phone # [ ] THIS PHYSICIAN QUERY FORM IS A PERMANENT PART OF THE MEDICAL RECORD GISELL CONNER Oct 19, 2021 12:10 ABIEL SAUNDERS DO Oct 20, 2021 06:14
--- NOTE | 2021-10-19 12:14 | Therapy Team Discharge Summary ---
Therapy Discharge Summary Discharge Recommendations Date of Discharge Therapy D/C Recommendations: Retirement (TCU/[facility]) Physical Therapy Roll Left to Right (QC): 6 Sit to Lying (QC): 6 Lying to Sitting/Side of Bed(Q: 6 Sit to Stand (QC): 6 Chair/Ory-zs-Geqgq Xfer(QC): 6 Toilet Transfer (QC): 5 Car Transfer (QC): 6 Does the Patient Walk: Yes Mode of Locomotion: Walk Anticipated Mode of Locomotion: Walk Walk 10 feet (QC): 4 Walk 50 ft with 2 Turns(QC): 4 Walk 150 ft (QC): 4 Walking 10ft on uneven surface: 4 Distance: 186ft Gait Assistive Device: FWW Does the Pt Use a Wheelchair: Yes Wheel 50 ft with 2 turns (QC): 6 Wheel 150 ft (QC): 6 Type of Wheelchair: Manual #of Steps: 4 1 Step (curb) (QC): 4 4 Steps (QC): 4 12 Steps (QC): 88 Walking Assistive Device: Walker Balance Sitting Static: Normal Balance Sitting Dynamic: Normal Balance-Standing Static: Normal Picking up an Object (QC): 6 Occupational Therapy Pt admitted to ARU with sepsis. At time of evaluation, he was min a for toileting, bathing, and lower body dressing, SBA for footwear and upper body dressing, and set up for eating and oral care. During his rehab stay, OT focused on balance, endurance, strengthening, safety, coordination and senior solutions workflow consultant/hand strength in order to increase performance and independence in adls and functional mobility. The Pt did not meet any of his senior care goals and actually declined during his last (QC) treatment. See below for current levels of assist. Pt will be discharging from this facility today and will be discharged from OT at this time. Decreased Activ Tolerance, Impaired I ADL's, Impaired Self-Care Skills Eating (QC): 5 (Set up per clinical judgement.) Oral Hygiene (QC): 4 (Supervision) Shower/Bathe Self (QC): 3 (Min assist and cues for safety while in stance in the shower. Pt. also leans back while seated, and requires cues at times to sit upright.) Upper Body Dressing (QC): 3 (Min assist to adjust shirt and pull down correctly.) Lower Body Dressing (QC): 3 (Mod assist to don pants and underwear over feet. Assist for steadying balance in stance to don over hips. Cues to to remember to doff brief.) On/Off Footwear (QC): 3 (Pt. able to doff his own slipper socks, but required mod assist to don them.) Toileting Hygiene (QC): 88 PT Fdc Goals Traffic Representative Goals PT Traffic Representative Goals Time Frame: Nov 03, 2021 Roll Left to Right (QC): 6 Sit to Lying (QC): 6 Lying-Sitting on Side/Bed(QC): 6 Sit to Stand (QC): 6 Chair/Nkk-jn-Ycbdm Xfer(QC): 6 Car Transfer (QC): 6 Does the Patient Walk: Yes Walk 10 feet (QC): 6 Walk 10ft-Uneven Surface(QC): 6 Walk 50ft with 2 Turns (QC): 6 Walk 150 ft (QC): 6 Does the Pt use WC or Scooter?: No Wheel 50 feet with 2 turns (QC: 9 1 Step (curb) (QC): 6 4 Steps (QC): 6 12 Steps (QC): 6 Picking up an Object (QC): 6 OT Fdc Goals Traffic Representative Goals Time Frame: Nov 01, 2021 Eating (FIM): 6 Eating (QC): 6 (not met) Oral Hygiene (QC): 6 (not met) Shower/Bathe Self (QC): 5 (not met) Upper Body Dressing (QC): 6 (not met) Lower Body Dressing (QC): 5 (not met) On/Off Footwear (QC): 6 (not met) Toileting Hygiene (QC): 6 (not met) Toilet/Commode Transfer (QC): 6 1=Demonstrate adherence to instructed precautions during ADL tasks. 2=Patient will verbalize/demonstrate understanding of assistive devices/modifications for ADL. 3=Patient will improve strength/tolerance for activity to enable patient to perform ADL's. Speech Fdc Goals Traffic Representative Goals 1. The patient will demonstrate improved cognitive linguistic skills for safe discharge to the least restrictive environment. Time Frame: Two Weeks. Kristin Orellana OT Oct 19, 2021 12:14
== END 2021-10-19 11:20 | disposition home health service (06) | DRG 948 ==
PROVIDERS: ADMIT Internal Medicine; ATTEND Internal Medicine
DX: R53.81 Other malaise (principal); R44.3 Hallucinations, unspecified; I48.91 Unspecified atrial fibrillation; Z66 Do not resuscitate; I25.10 Atherosclerotic heart disease of native coronary artery without angina pectoris; E78.00 Pure hypercholesterolemia, unspecified; I10 Essential (primary) hypertension; K21.9 Gastro-esophageal reflux disease without esophagitis; M19.90 Unspecified osteoarthritis, unspecified site; M54.9 Dorsalgia, unspecified; M10.9 Gout, unspecified; E03.9 Hypothyroidism, unspecified; R41.82 Altered mental status, unspecified; J32.0 Chronic maxillary sinusitis; R33.9 Retention of urine, unspecified; G72.9 Myopathy, unspecified; G47.33 Obstructive sleep apnea (adult) (pediatric); Z95.5 Presence of coronary angioplasty implant and graft; Z95.1 Presence of aortocoronary bypass graft; Z87.891 Personal history of nicotine dependence; Z79.899 Other long term (current) drug therapy; Z79.890 Hormone replacement therapy; Z79.82 Long term (current) use of aspirin; Z79.01 Long term (current) use of anticoagulants; Z92.3 Personal history of irradiation; Z85.828 Personal history of other malignant neoplasm of skin; Z85.46 Personal history of malignant neoplasm of prostate
CPT/HCPCS: 36415; 80053; 85025

== ENCOUNTER → 2021-10-24 | Outpatient (CLI) | payer MEDICARE, BC ==
[~2021-10-24] MED LIST changes: -ALPRAZolam 0.25 MG (XANAX) TAB PO PRN; -BISACODYL 10 MG SUPP (DULCOLAX) PR PRN; -CALCIUM CARBONATE 500 MG (TUMS) TAB.CHEW PO PRN; -DOCUSATE SODIUM 100 MG (COLACE) CAP PO PRN; -FLEET ENEMA ADULT 1 EA BTL PR PRN; -LACTULOSE SYRUP 10GM/15ML (ENULOSE) 30ML UDC PO PRN; -LOPERAMIDE 2 MG (IMODIUM) TABLET PO PRN; -MELATONIN 3 MG TABLET PO PRN; -ONDANSETRON 4 MG (ZOFRAN) ORAL DISSOLVE TAB PO PRN; -diphenhydrAMINE 25 MG TAB (BENADRYL) PO PRN; -guaiFENesin/CODEINE (ROBITUSSIN AC) 10ML UDC PO PRN
--- NOTE | 2021-10-24 17:18 | Diagnostic Imaging Report ---
INDICATION: Right rib pain. COMPARISON: 09/12/2020. FINDINGS: There is a minimally displaced fracture of the very distal right 9th rib. No other fracture is demonstrated. Right lung is well-aerated and clear. No pneumothorax or pleural effusion. IMPRESSION: Distal right 9th rib fracture with minimal displacement. Dictated by: Dictated on workstation # [id number]
== END ==
LOC: RAD 14:21
PROVIDERS: ATTEND Nurse Practitioner Family
DX: S22.31XA Fracture of one rib, right side, initial encounter for closed fracture (principal); X58.XXXA Exposure to other specified factors, initial encounter
CPT/HCPCS: 71100